=== PATIENT | female | born 1950 | race Caucasian/White ===

== ENCOUNTER → 2017-08-12 09:58 | Outpatient (CLI) | payer MEDICARE, SELFPAY ==
--- NOTE | 2017-08-12 10:04 | RAD_ITS ---
STUDY: X-RAY - LEFT FOOT CLINICAL: Female, 67 years old. Left heel pain. TECHNIQUE: 3 view(s) of the foot. COMPARISON: None. FINDINGS: There is a plantar calcaneal spur. Normal visualized subtalar, talonavicular, calcaneocuboid, tarsal and tarsometatarsal articulations. Normal metatarsi. Normal metatarsophalangeal joint of the great toe. Normal tibial and fibular sesamoid bones. Normal interphalangeal joint of the great toe. Normal phalanges of the great toe. Normal second through fifth metatarsophalangeal joints. Normal interphalangeal joints and phalanges of the lesser toes. The soft tissue structures are unremarkable. RAD/Foot min 3 Views IMPRESSION: Plantar spur. Electronically Signed: Aaron Salgado MD at 14:14 EST Tel [phone], Service support ,
== END ==
PROVIDERS: Family Provider Internal Medicine; PCP Internal Medicine; Visit Provider Internal Medicine
DX: M79.672 Pain in left foot (principal)
CPT/HCPCS: 73630

== ENCOUNTER 2018-02-14 14:48 | Emergency (ER) | payer MEDICARE, SELFPAY ==
[2018-02-14 14:50] VITALS: BP 163/101; PULSE 61; RESP 18; TEMP 37.1; O2SAT 96; BMI 38.9
[2018-02-14 15:14] VITALS: O2SAT 99
[2018-02-14] MEDS: Aspirin 81 MG TAB.CHEW 324 MG PO (15:33)
[2018-02-14 15:54] LABS: Absolute Lymphocyte Count 2.44 X10^3/ul (0.83-4.51); Basophil# 0.03 X10^3/uL; Basophil% 0.4 % (0-1); Eosinophil# 0.24 X10^3/uL; Eosinophils% 3.3 % (0-5); Hematocrit 44.4 % (37-47); Hemoglobin 14.4 g/dl (12.0-15.0); Lymphocyte # 2.44 X10^3/ul (4.0); Lymphocyte % 33.6 % (19-41); Mean Corp Hgb Conc 32.4 g/gl (32-36); Mean Corpuscular Hgb 31.4 pg (27.0-32.0); Mean Corpuscular Volume 96.7 fL (81-99); Mean Platelet Vol. 12.6 fl (6.2-12.0); Monocyte# 0.52 X10^3/uL; Monocyte% 7.2 % (0-10); Neutrophil # 4.03 X10^3/uL (2.7-7.7); Neutrophil % 55.4 % (47-70); Platelet Count 126 K/mm3 (150-450); RBC Distribution Width CV 13.4 % (11.6-14.6); RBC Distribution Width SD 47.5 fl (35.1-43.9); Red Blood Count 4.59 M/mm3 (4.2-5.4); White Blood Count 7.3 K/mm3 (4.4-11.0)
[2018-02-14 15:56] LABS: POSITIVE COUNT NO; POSITIVE DIFFERENTIAL NO; POSITIVE MORPHOLOGY NO
[2018-02-14 16:12] LABS: Anion Gap 10 (5-15); BUN 18 mg/dL (7-18); BUN/Creat Ratio 15.7 RATIO (10-20); Calcium,Total 9.2 mg/dL (8.5-10.1); Chloride 105 mmol/L (98-107); Creatinine, Serum 1.15 mg/dL (0.55-1.02); EST Glomerular Filtration Rate 50 mL/min (>60); Est Glom Filt Rate - Afr Amer 61 mL/min (>60); Estimated Creatinine Clearance 45.05 ml/min; Glucose 107 mg/dL (74-106); Potassium 3.4 mmol/L (3.5-5.1); Sodium Level 145 mmol/L (136-145)
[2018-02-14 16:23] VITALS: BP 152/82; PULSE 58; RESP 15; O2SAT 98
--- NOTE | 2018-02-14 16:36 | ED.VISSUMM ---
- ER Visit Summary Date of Service: 02/14/18 Chief Complaint: Chest pain History of Present Illness: The patient is a [address] Hannah and Dr. Lowe. She reports that she has left-sided chest pain that began yesterday. It is continuous pressure/aching pain. Zeta 10 at worst and 410 currently. Is worsened by nothing including exertion. Is relieved by placing pressure on it. She does report she had episodes where she is nauseated and diaphoretic. No vomiting or shortness of breath. Denies any recent trauma. No fall, MVA, or change in activity. Patient reports that she does have a history of DVT. No recent travel. However, her left leg is been in a walking boot for the past 2 weeks for plantar fasciitis. She reports that her ankle is more swollen than usual. Physical Examination: Vitals: Stable. Afebrile. General: Well-nourished and well-developed. Head: Normocephalic atraumatic. Neck: Supple, no lymphadenopathy. No JVD. Nontender. Cardiovascular: Regular rate and rhythm. No murmurs. Respiratory: No respiratory distress. Clear to auscultation bilaterally. Mild tenderness palpation over the left side of her chest that does reproduce her pain. Abdominal: Soft, nontender, nondistended, normal bowel sounds. No guarding, rebound, or peritoneal signs. Back: Nontender. Extremities: Nontender, no edema. Skin: Normal color, no rash. Neurologic: Alert and oriented ?3. Cranial nerves II through XII are intact. Normal strength and sensation. Psych: Normal affect. Test Results: EKG sinus bradycardia 53 and is unchanged from August 2016. Troponin is negative despite greater than 12 hours of constant pain. Chem-7 marked potassium 3.4, creatinine 1.15, glucose 107. CBC is marked for platelets 126. Chest x-ray is normal. Left lower extreme a Doppler is negative. Emergency Department Course and Treatment: Review the patient's chart shows that she had heart catheterization in September 2016 that showed nonobstructive coronary artery disease with 30% mid LAD lesion and a 40% mid diagonal lesion. I do not feel this is cardiac in etiology. I did discuss the patient possibility of a PE. However, this pain is not typical of this. She does not want a CT of the chest. For that is a reasonable course of action. Her lower extremity Dopplers were negative. Treatment Plan: Patient will be discharged instructions to follow-up with Dr. Hannah in 1-2 days if not improving. Return to the emergency department for any worsening symptoms. Disposition: To home in improved and stable condition. Impression: 1. Atypical chest pain. 2. JESSIE score 1. This note was generated with [employer] dictation software. It may contain incorrect words, spelling, and punctuation that were not noted in review of the chart prior to signing ED Disposition - Plan for ED Patient: Disposition: Home or Assisted Living Chief Complaint: Chest Pain Instructions: ED Chest Pain Atypical Unkn Cause Referrals: Kelly Hannah MD [Primary Care Provider] - 3-5 Days if not improving
== END 2018-02-14 17:25 | disposition home or self-care (01) ==
PROVIDERS: Emergency Provider Emergency Medicine; Family Provider Internal Medicine; PCP Internal Medicine
DX: R07.89 Other chest pain (principal); I10 Essential (primary) hypertension; E78.00 Pure hypercholesterolemia, unspecified; Z86.718 Personal history of other venous thrombosis and embolism; Z79.899 Other long term (current) drug therapy
CPT/HCPCS: 71045; 80048; 84484; 85025; 93005; 93971; 99285; J7030

== ENCOUNTER 2018-04-05 08:00 | Outpatient (RCR) | payer MEDICARE, SELFPAY ==
--- NOTE | 2018-03-03 13:40 | HP.PTEVAL_ITS ---
Patient's Visit Information DIANA ESCUDERO is a 68 year old F referred to Physical Therapy by Kenroy Myers DPM with a diagnosis of L plantar fascitis. Date of Evaluation: 02/23/18 Physical Therapist: Lazaro Jackson - Visit Plan Frequency: 2-3x /Week Duration: 4-6 Weeks Plan: Start with G/S stretching, US to plantar fascia, intrinsic strengthening, graston to plantar fascia, achilles tendon. Progress strengthening and mobility as tolerated. - Subjective Subjective: Pt reported to physical therapy with left plantar pain. Pain has persisted for 6 months. Pt has used over the counter orthotics in the past but currently wears a CAM brace throughout the day in attemps to alleviate pain. The CAM brace along with home exercises and stretches have been effective in eleviating some pain. Pt states that they attempted to progress out of the CAM brance, however, once the brace is removed the pain returns within a couple days. Pt reports pulling pain with walking (2/10) and intermitante stabing pain (8/10) at rest. 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 Pt reports that they are able to use stationary bike with minimal levels of pain. Pt. is hopeful to reduce symptoms in order to get back to all recreational walking and activities without limitations. - Pain left foot Pain Intensity (Out of 10): 1 Pain Intensity Range: 0, 8 - Objective POSTURE: Pt. has slight increase in L foot pes planus with stance phase. Pt. has slight increased L IR of hip as well in stance. PALPATION: pain along the 5th ray and anterior aspect of distal calcaneous. Pt. has increased pain at origin of plantar fascia as well. NEURO: normal sensation, normal DTR bilaterally. No issues. ROM: ankle: PF - L/R 0-40, DF - L/R 0-10, Inversion - 0 -20 L and R. Pt. has increased tenderness with L DF stretching. Pt. has normal knee ROM bilaterally. MMT: LE 5/5 throughout. No pain with testing. GAIT: slight over pronation of the left foot during stance phase. Pt. also has early heel off with stance phase of LLE and increased L toeing out with walking. STAIRS: normal with mild increase NW with descending. Early heel off with L loading pahse with descending. SPECIAL TESTING: + windlass testing [facility] and [facility]. - Goals Goal 1:: Pt. to be I with HEP. Goal Time Frame: 4-6 Weeks Goal 2:: Pt. to have increased L ankle DF to 15deg without increase in symptoms. Goal Time Frame: 4-6 Weeks Goal 3:: Pt. to ambulate unlimited distances without increase in symptoms. Goal Time Frame: 4-6 Weeks Goal 4:: Pt. to have improved gait pattern without issues. Goal Time Frame: 4-6 Weeks Goal 5:: Pt. to negotiate stairs with reciprocal pattern. - Rehabilitation Potential Physical Therapy Diagnosis: Pt. has signs and symptoms consistent with L plantar fasciatis. Pt. has decreased G/S length, increased pain with walking and limited recreational activities. Pt. would benefit from PT to increase ROm, decrease pain and increase tolerance to all recreational activities. Rehabilitation Potential: Excellent - Anticipated Interventions Patient/Client Instruction: Educate patient on: Condition, Plan of Care, Risk Factors, Benefits of Fitness Program For the Purpose of:: To improve decision making, To facilitate caregiver knowledge, To improve self management, To prevent re-injury, To improve ability to perform tasks related to life management, To improve tolerance to ADL's Therapeutic Exercise to Include: Strength training, Power training, Endurance training, Flexibilty training, Passive ROM, Active ROM For the Purpose of:: To decrease pain, To decrease swelling/inflammation, To increase ROM, To improve nutrient delivery to tissue, To improve gait and locomotor functions, To improve health of tissue, To decrease soft tissue restriction Manual Therapy Techniques to Include: Petrissage, Trigger point massage, Mobilization, Passive ROM, Functional dry needling, Soft tissue mobilization For the Purpose of:: To decrease pain, To decrease swelling/inflammation, To increase ROM, To improve nutrient delivery to tissue, To improve muscle performance and motor function, To improve performance and independence with ADL 's, To improve health of tissue, To decrease soft tissue restriction, To increase flexibility/ROM IF ES: Yes Cryotherapy (ice pack, ice massage): Yes Ultrasound (thermal/non thermal): Yes For the Purpose of:: To decrease pain, To decrease swelling/inflammation, To improve nutrient delivery to tissue, To increase oxygenation perfusion, To improve muscle performance and motor function Thank you for the opportunity to evaluate your patient. For Medicare and Medicare HMO plans, please review the plan of care and approve it. It will need to be FAXED BACK to us at [phone] for Medicare purposes. Please let me know if there are questions or concerns regarding this plan of care. Physician Signature: Date:
--- NOTE | 2018-08-22 09:21 | HP.PTDCSUM ---
HP - PT D/C Summary It has been my pleasure to treat DIANA ESCUDERO under orders from Kenroy Myers DPM, for the diagnosis of L plantar fascitis for a total of 9 visit(s). Discharge Date: 04/05/18 Please see the following information for a summary of their discharge status. - Subjective Subjective: pt reports that they think they've made it! on this date they report less than 1 pain level and mentiond that they didnt even think about their foot over the weekend. the only pain they feel is a slight brusing on the heel but less than they had in the past. - Pain left foot Pain Intensity (Out of 10): 1 - Overall Improvement % Improvement: 94 - Objective Objective/Function: Positve response to exercises. Reduced complaint of pain. Tolerated well overall. pt reports being 94% back to normal. - Goals Goal 1:: Pt. to be I with HEP. Goal Progress: Goal Met Goal 2:: Pt. to have increased L ankle DF to 15deg without increase in symptoms. Goal Progress: Goal Met Goal 3:: Pt. to ambulate unlimited distances without increase in symptoms. Goal Progress: Goal Met Goal 4:: Pt. to have improved gait pattern without issues. Goal Progress: Goal Met Goal 5:: Pt. to negotiate stairs with reciprocal pattern. Goal Progress: Goal Met - Plan Plan: Pt. to be DC from PT at this point in time. - D/C Information Discharge Comments: Pt. was treated for her plantar fascitis. Pt. progressed very well with DN, strengthening, and stretching. Pt. was 94% better this date and reports being I with her HEP. Pt. will be DC from PT at this point in time. If there are questions or concerns regarding this patient's physical therapy, please feel free to call me at [phone]. Thank you for the referral of this patient. Sincerely, Lazaro Jackson DPT
== END 2018-04-05 19:00 | disposition home or self-care (01) ==
LOC: PT 08:00
PROVIDERS: Family Provider Internal Medicine; PCP Internal Medicine; Visit Provider Podiatrist
DX: M72.2 Plantar fascial fibromatosis (principal)
CPT/HCPCS: 97035; 97110; 97140; 97161

== ENCOUNTER 2018-05-19 07:01 | Observation (INO) | payer MEDICARE, SELFPAY ==
[2018-05-19] VITALS (10 sets, daily range): BP systolic 122–149; BP diastolic 80–100; PULSE 63–77; RESP 14–16; TEMP 36.4–36.6; O2SAT 93–99; BMI 33.9; BMI 36.7; BMI 36.8
--- NOTE | 2018-05-19 07:17 | CT_ITS ---
STUDY: CT BRAIN WITHOUT CONTRAST REASON FOR EXAM: Female, 68 years old. Confusion today per family, unsteady gait, trouble driving. Hx hypertension.. RADIATION DOSAGE (If Supplied By Facility): CTDIvol = ( 44.99 ) mGy, DLP = ( 745.49 ) mGycm TECHNIQUE: Transaxial CT imaging of the brain was performed without administration of intravenous contrast material. Individualized dose optimization techniques were used for this CT. COMPARISON: None. FINDINGS: Normal soft tissue structures. Normal calvarium. Normal size ventricles and extra-axial spaces for the patient's age. Normal white matter tracts of the cerebral hemispheres. Normal basal ganglia and thalami. Normal brainstem. Normal cerebellum. There is no intracranial hemorrhage. There are no findings of an acute ischemic infarction. Normal visualized paranasal sinuses. CT/Brain/Head without Contrast IMPRESSION: Normal unenhanced CT scan of the brain. Electronically Signed: Kalia Galan MD at 8:15 EST Tel , Service support ,
--- NOTE | 2018-05-19 07:17 | EKG12_ITS ---
Test Reason : DYSRHYTHMIA Blood Pressure : / mmHG Vent. Rate : 070 BPM Atrial Rate : 070 BPM P-R Int : 168 ms QRS Dur : 084 ms QT Int : 392 ms P-R-T Axes : 040 -19 005 degrees QTc Int : 423 ms Normal sinus rhythm Moderate voltage criteria for LVH, may be normal variant Inferior infarct , age undetermined , cannot be excluded Abnormal ECG Confirmed by KEVIN FLYNN, ALEN ([id number]), newspaper editor NA DOWELL ([id number]) on 05/24/2018 3:31:32 PM Referred By: TIHERRY Confirmed By:ALEN BROWN MD
--- NOTE | 2018-05-19 07:17 | RAD_ITS ---
STUDY: X-RAY CHEST REASON FOR EXAM: Female, 68 years old. Confusion. TECHNIQUE: Single AP portable view of the chest. COMPARISON: Comparison is made with prior study dated February 14, 2018. FINDINGS: EKG electrodes are seen. The lungs are clear and expanded. There is no demonstrated pleural abnormality. Normal size heart. Normal mediastinum and paula. Normal visualized pulmonary arteries. There is atherosclerotic tortuosity of the aortic arch and descending thoracic aorta. There are degenerative changes of the visualized thoracic spine. Normal visualized ribs, clavicles, and shoulders. There is no demonstrated abnormality of the visualized soft tissue structures of the upper abdomen. RAD/Chest 1 View IMPRESSION: No acute abnormality is present. Electronically Signed: Aaron Salgado MD at 8:13 EST Tel [phone], Service support ,
[2018-05-19 07:21] LABS: Bedside Glucose 101 mg/dL (70-110)
[2018-05-19 07:33] LABS: Absolute Lymphocyte Count 2.03 X10^3/ul (0.83-4.51); Absolute Neutrophil Count 3.4 X10^3/uL (2.0-7.7); Basophil# 0.02 X10^3/uL; Basophil% 0.3 % (0-1); Eosinophil# 0.19 X10^3/uL; Eosinophils% 3.1 % (0-5); Hematocrit 43.2 % (37-47); Lymphocyte # 2.03 X10^3/ul (4.0); Lymphocyte % 32.8 % (19-41); Mean Corp Hgb Conc 32.4 g/gl (32-36); Mean Corpuscular Hgb 31.3 pg (27.0-32.0); Mean Corpuscular Volume 96.6 fL (81-99); Mean Platelet Vol. 12.1 fl (6.2-12.0); Monocyte# 0.52 X10^3/uL; Monocyte% 8.4 % (0-10); Neutrophil # 3.43 X10^3/uL (2.7-7.7); Neutrophil % 55.4 % (47-70); POSITIVE COUNT NO; POSITIVE DIFFERENTIAL NO; POSITIVE MORPHOLOGY NO; Platelet Count 134 K/mm3 (150-450); RBC Distribution Width CV 13.3 % (11.6-14.6); RBC Distribution Width SD 47.3 fl (35.1-43.9); Red Blood Count 4.47 M/mm3 (4.2-5.4); White Blood Count 6.2 K/mm3 (4.4-11.0)
[2018-05-19 07:48] LABS: Partial Thromboplast Time 28.1 Seconds (24.1-36.2); Prothrombin Time (Protime)PT. 12.7 SECONDS (11.7-14.9)
[2018-05-19 07:57] LABS: Anion Gap 5 (5-15); BUN 19 mg/dL (7-18); BUN/Creat Ratio 18.3 RATIO (10-20); Calcium,Total 8.9 mg/dL (8.5-10.1); Chloride 109 mmol/L (98-107); Creatinine, Serum 1.04 mg/dL (0.55-1.02); EST Glomerular Filtration Rate 56 mL/min (>60); Est Glom Filt Rate - Afr Amer 68 mL/min (>60); Estimated Creatinine Clearance 49.81 ml/min; Glucose 102 mg/dL (74-106); Potassium 3.7 mmol/L (3.5-5.1); Sodium Level 143 mmol/L (136-145)
[2018-05-19 08:46] LABS: Mucous, Urine 0 SEEN /hpf (<or=2+)
[2018-05-19 08:48] LABS: Color, Urine Yellow (Yellow); Glucose, Dipstick Normal (Normal); Ketone-Dipstick Negative (Negative); Leukocyte Esterase-Dipstick Negative /ul (Negative); Nitrite-Dipstick Positive (Negative); Occult Blood-Urine Negative /ul (Negative); Protein-Dipstick Negative (Negative); Specific Gravity, Urine 1.015 (1.002-1.030); Urine Bilirubin Dipstick Negative (Negative); Urine Clarity Sl. Cloudy (Clear); Urine Urobilinogen Normal (Normal)
[2018-05-19 08:55] LABS: Bacteria 4+ /hpf (None Seen); Red Blood Cells-Urine 0-5 SEEN /hpf (0-5); Squamous Epithelial Cells - UA 0-5 SEEN /hpf (5-10); White Blood Cells 0-5 SEEN /hpf (0-5)
--- NOTE | 2018-05-19 10:15 | NURSING ---
DR NAM FOR DR GUADARRAMA
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
--- NOTE | 2018-05-19 10:23 | NURSING ---
MED SURG KIMANI NAM
[2018-05-19] MEDS: Cefazolin 1 GM/50 ML BAG IV ×2 (13:17→21:23)
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
[2018-05-19] MEDS: 0.9% NaCl Peripheral Flush Adult/Peds IV (21:23)
[2018-05-19] MEDS: Heparin Injection (Vial) 5,000 UNIT/ML VIAL 5000 UNIT SC (21:23)
[2018-05-19] MEDS: Zolpidem Tartrate 5 MG Tablet PO (23:58)
[2018-05-20 04:15] VITALS: BP 136/73; PULSE 72; RESP 16; TEMP 36.7; O2SAT 95
[2018-05-20] MEDS: Cefazolin 1 GM/50 ML BAG IV (05:38)
[2018-05-20] MEDS: 0.9% NaCl Peripheral Flush Adult/Peds IV ×2 (05:39→05:41)
[2018-05-20 06:28] LABS: Absolute Neutrophil Count 2.1 X10^3/uL (2.0-7.7); Basophil# 0.03 X10^3/uL; Basophil% 0.6 % (0-1); Eosinophil# 0.16 X10^3/uL; Eosinophils% 3.1 % (0-5); Hematocrit 42.1 % (37-47); Hemoglobin 13.7 g/dl (12.0-15.0); Lymphocyte % 45.3 % (19-41); Mean Corp Hgb Conc 32.5 g/gl (32-36); Mean Corpuscular Hgb 31.5 pg (27.0-32.0); Mean Corpuscular Volume 96.8 fL (81-99); Mean Platelet Vol. 12.6 fl (6.2-12.0); Monocyte# 0.47 X10^3/uL; Monocyte% 9.3 % (0-10); Neutrophil # 2.11 X10^3/uL (2.7-7.7); Neutrophil % 41.5 % (47-70); Platelet Count 140 K/mm3 (150-450); RBC Distribution Width CV 13.4 % (11.6-14.6); RBC Distribution Width SD 47.7 fl (35.1-43.9); Red Blood Count 4.35 M/mm3 (4.2-5.4); White Blood Count 5.1 K/mm3 (4.4-11.0)
[2018-05-20 06:34] LABS: POSITIVE COUNT NO; POSITIVE DIFFERENTIAL NO; POSITIVE MORPHOLOGY NO
[2018-05-20 06:43] LABS: Anion Gap 8 (5-15); BUN 16 mg/dL (7-18); BUN/Creat Ratio 15.4 RATIO (10-20); Calcium,Total 8.8 mg/dL (8.5-10.1); Chloride 111 mmol/L (98-107); Cholesterol 138 mg/dL (200); Creatinine, Serum 1.04 mg/dL (0.55-1.02); EST Glomerular Filtration Rate 56 mL/min (>60); Est Glom Filt Rate - Afr Amer 68 mL/min (>60); Estimated Creatinine Clearance 49.81 ml/min; Glucose 90 mg/dL (74-106); High Density Lipoprotein 34 mg/dL; Potassium 3.6 mmol/L (3.5-5.1); Sodium Level 146 mmol/L (136-145); Triglycerides 209 mg/dL; Very Low Density Lipoprotein 42 mg/dL (5-40)
[2018-05-20 07:28] VITALS: BP 135/79; PULSE 57; RESP 18; TEMP 36.6; O2SAT 100
--- NOTE | 2018-05-20 08:56 | PN_ITS ---
Patient Problems: Active and Suspected Problems (Last Reviewed 01/24/18 @ 13:53 by Anne Marie Caal) Confusion (Acute) UTI (urinary tract infection) (Acute) Subjective: feels great no issues, no weakness, numbness or confusion. No fevers, or chills Vitals/I&O's: Vital Signs Temp Pulse Resp BP Pulse Ox 97.9 F 57 L 18 135/79 H 100 05/20/18 07:28 05/20/18 07:28 05/20/18 07:28 05/20/18 07:28 05/20/18 07:28 Oxygen Flow Rate (L/min) 2 Oxygen Delivery Method Room Air Weight: 227 lb 11.8 oz Body Mass Index (BMI) 36.7 Finger Stick Blood Glucose 101 Intake and Output for Last 24 Hours 05/18/18 05/19/18 05/20/18 23:59 23:59 23:59 Intake Total 695 / 695 780 / 780 Balance 695 / 695 780 / 780 General: Alert, Oriented x3, Cooperative, No apparent distress HEENT: Atraumatic, PERRLA, EOMI, Normocephalic Oral: Moist Mucosa Neck: Supple, No JVD, Negative Carotid Bruits Lungs: Clear to auscultation, Normal air movement, No rhonchi, No wheeze, No rales Cardiovascular: Regular rate, Regular Rhythm, Normal S1, Normal S2, No murmurs Abdomen: Soft, Non Tender, Non-Distended, No Hepato-splenomegaly Extremities: No edema, Capillary Refill Less than 3 Seconds Skin: No rashes, No breakdown Musculoskeletal: No Tenderness to Palpation of Joints or Extremities Neurological: Cranial nerves II-XII grossly intact, Neuro grossly intact, Motor Exam 5/5 strength throughout, Muscle tone normal, Sensory exam intact to light touch and pain, Coordination normal Psych/Mental Status: Normal Affect, Appropriate Laboratory Results 05/19/18 08:40: Urine RBC 0-5 SEEN, Urine WBC 0-5 SEEN, Ur Squamous Epith Cells 0-5 SEEN, Urine Bacteria 4+, Urine Mucus 0 SEEN 05/20/18 05:50: WBC 5.1, RBC 4.35, Hgb 13.7, Hct 42.1, MCV 96.8, MCH 31.5, MCHC 32.5, RDW 13.4, RDW Differential 47.7 H, Plt Count 140 L, MPV 12.6 H, Immature Gran % (Auto) 0.200, Neut % (Auto) 41.5 L, Lymph % (Auto) 45.3 H, [place] % (Auto) 9.3, Eos % (Auto) 3.1, Baso % (Auto) 0.6, Absolute Neuts (auto) 2.1, Absolute Lymphs (auto) 2.30, Total Counted Not Reportable 05/20/18 05:50: Sodium 146 H, Potassium 3.6, Chloride 111 H, Carbon Dioxide 27.0, Anion Gap 8, BUN 16, Creatinine 1.04 H, Estim Creat Clear Calc 49.81, Est GFR (MDRD) Af Amer 68, Est GFR (MDRD) Non-Af 56 L, BUN/Creatinine Ratio 15.4, Gl ucose 90, Calcium 8.8, Triglycerides 209 H, Cholesterol 138, LDL Cholesterol 62, VLDL Cholesterol 42 H, HDL Cholesterol 34 L Current Medications Aspirin (Aspirin, Baby) 81 mg PO DAILY@0800 [facility] Bupropion HCl (Wellbutrin Xl) 300 mg PO DAILY [facility] Heparin Sodium (Porcine) (Heparin Na) 5,000 unit SC Q12 [facility] Last Admin: 05/19/18 21:23 Dose: 5,000 unit Hydrochlorothiazide (Hctz) 25 mg PO DAILY [facility] Sodium Chloride () 500 mls @ 999 mls/hr IV .Q31M ONE Last Admin: 05/19/18 07:36 Dose: 999 mls/hr Cefazolin Sodium () 1 gm in 50 mls @ 100 mls/hr IV Q8 [facility] Last Admin: 05/20/18 05:38 Dose: 100 mls/hr Magnesium Hydroxide (Milk Of Magnesia) 30 ml PO DAILY PRN PRN PRN Reason: Constipation Potassium Chloride (K-Dur) 10 meq PO BID [facility] Last Admin: 05/19/18 21:23 Dose: 10 meq Propranolol HCl (Inderal La) 80 mg PO DAILY [facility] Rosuvastatin Calcium (Crestor) 5 mg PO QHS [facility] Last Admin: 05/19/18 21:24 Dose: Not Given Sodium Chloride () 5 - 15 ml IV UD PRN PRN Reason: SALINE FLUSH Last Admin: 05/20/18 05:41 Dose: 10 ml Zolpidem Tartrate (Ambien (Generic)) 5 mg PO QHS PRN PRN Reason: INSOMNIA Last Admin: 05/19/18 23:58 Dose: 5 mg Medical Necessity - Tobacco Use Smoking Status: Never smoker Assessment/Plan All Active Problems (Last Reviewed 01/24/18 @ 13:53 by Anne Marie Caal) Confusion (Acute) UTI (urinary tract infection) (Acute) Chest pain (Resolved) Pulmonary embolism (Resolved) 1. acute transient confusion secondary to TIA vs UTI - She is on Crestor and aspirin which will be continued - Obtain lipid panel in the am - Increase statin dose before DC, however has had significant myalgias in the past with statin - Urine culture pending, c/w ancef 1 gm TID - If urine culture is positive, will proceed with treatment - If negative will obtain MRI to r/o stroke, I am not convinced that this was a stroke given her lack of permanent symptoms and isolation of symptoms to mentation - She states that she had carotid US within the last 6 months which was normal - She had a cardiac cath within the last 18 months which was also normal - Neuro checks q4 hours 2. HTN/HLD/CAD - c/w crestor, asa, propranol and HCTZ - will monitor to be able to maximize therapy - SBP 135 3. Depression - Stable - c/w wellbutrin DVT: SCD/Heparin Diet: Cardiac Code Visit Inpatient E&M: 33715 Subs Hosp L2
[2018-05-20] MEDS: Aspirin 81 MG TAB.CHEW PO (08:58)
[2018-05-20] MEDS: buPROPion (XL) 300 MG TABLET.XL PO (08:59)
[2018-05-20] MEDS: hydroCHLOROthiazide 25 MG Tablet PO (08:59)
[2018-05-20] MEDS: Heparin Injection (Vial) 5,000 UNIT/ML VIAL 5000 UNIT SC (08:59)
[2018-05-20] MEDS: Propranolol LA 80 MG Capsule PO (08:59)
--- NOTE | 2018-05-20 11:03 | DCINST_ITS ---
- Discharge Diagnoses Current Active Problems: Current Active and Chronic Problems (Last Reviewed 01/24/18 @ 13:53 by Anne Marie Caal) Confusion (Acute) UTI (urinary tract infection) (Acute) You will use the following diet at home:: Cardiac Your food should be the consistency of: Regular Your liquids should be the consistency of: Regular/Thin Discharge Activity: No Restrictions Call your doctor if you observe: Fever of 101 or Higher, Dizziness, Fainting spells Allergies/Adverse Reactions: Allergies simvastatin [From Zocor] Adverse Reaction (Severe, Verified 02/14/18 14:51) severe myalgias and pain gemfibrozil Adverse Reaction (Intermediate, Verified 02/14/18 14:51) Myalgias/joint pain hydromorphone HCl [From Dilaudid] Adverse Reaction (Verified 02/14/18 14:51) Other had resp arrest oxycodone HCl [From Percocet] Adverse Reaction (Verified 02/14/18 14:51) Nausea propoxyphene napsylate [From Darvocet-N 100] Adverse Reaction (Verified 02/14/18 14:51) Nausea Medications to take at Discharge Cholecalciferol (Vitamin D3) [Vitamin D3] 2,000 unit PO DAILY 09/04/16 Bupropion HCl [Bupropion Xl] 300 mg PO DAILY 02/14/18 Hydrochlorothiazide [Hctz] 25 mg PO DAILY 02/14/18 Potassium Chloride [Klor-Con M20] 10 meq PO BID 02/14/18 Propranolol HCl [Inderal LA (Beta Jess)] 80 mg PO DAILY 02/14/18 Rosuvastatin Calcium [Crestor] 5 mg PO DAILY 02/14/18 Zolpidem Tartrate 10 mg PO QHS PRN PRN 02/14/18 Cephalexin [Keflex] 500 mg PO Q6 #16 capsule 05/20/18 The following prescriptions were given: Cephalexin [Keflex] 500 mg PO Q6 #16 capsule Primary Care Physician: Kelly Hannah MD [Primary Care Provider] - Please follow up with your Primary Care Physician in: In 3-5 days Test Results: Test results from this visit will be discussed in further detail at your follow- up appointment, if applicable.
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
[2018-05-20 11:30] VITALS: BP 160/90; PULSE 63; RESP 18; TEMP 36.9; O2SAT 98
[2018-05-20 11:50] VITALS: BP 160/90; PULSE 63; RESP 18; TEMP 36.9; O2SAT 98
--- OUTSIDE RECORDS SUMMARY | 2018-07-14 07:25 | XMS RPT_ITS | Continuity of Care Document ---
:1950 Author Organization [facility] Address [facility] [address] [place] [address] Phone Care Team Providers Name Role Phone Brielle FLYNN, Kelly Cristina Unavailable Papo Tovar Unavailable Jhony Castillo Unavailable Unavailable Wale Blanc Unavailable Mynor FLYNN, Puneet Unavailable Mae Mcallister Unavailable Dr. Erickson Allen Unavailable Marcia Saunders Unavailable SUZY Spencer Unavailable Unavailable Unavailable Unavailable Problems Name Dates Details Abnormal fasting glucose (R73.01, 790.29) Comments: better with weight loss. and now off Victoza gain weight back. Byetta not work. Victoza worked best but insurance not pay for. 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 Status: Active Allergic rhinitis (J30.9, 477.9) Status: Active Benign essential hypertension (I10, 401.1) Comments: stable working on weight loss. once off stimulant will try lowering water pill to 1/2 Status: Active BMI 37.0-37.9, adult (Z68.37, V85.37) Comments: she is swimming walking and did weight watchers three times. Status: Active BMI 38.0-38.9,adult (Z68.38, V85.38) Status: Active BMI 40.0-44.9, adult (Z68.41, V85.41) Comments: 40.6 Status: Active Chest pain at rest (R07.9, 786.50) Comments: in hospital work up negative CTA chest and stress test. cath - not bad. now seems muscular. had again and she always worry about PE and negative work up 02-05 right now no return not thin k need stres s if have signs and symptoms again or progressive CPthen willstress Status: Active Coronary artery disease due to lipid rich plaque (I25.10, 414.00) Comments: - cath 30% LADbv screscreening 08-08 neg Status: Active Current nonsmoker (Renamed from Current non-smoker) (Z78.9, V49.89) Status: Active Deliveries (Parity) Comments: 2 Status: Active Depression (F32.9, 311) Comments: dealing with son with depression lost job was in . lost [employer] and she has to drive around. life withsomeone OCD, hoarder. on ambien for sleep per Dr. coates. Wellbutrin start but had insomni a in past. working with [employer]. doing okay on incresae welbutrin.tried Effexor, paxil like trintillex but cost Status: Active Encounter for routine adult medical exam with abnormal findings (Z00.01, V70.0) Comments: 07-22-17 [facility] physical: mammogram , BD , has had colonoscopy 2017, hx. total hysterectomy/BSO, PHQ-9=3 (mild), 6CIT=/28 hep c screen negative. Status: Active Flu-like symptoms (R68.89, 780.99) Comments: think viral at this point. will give anticough. if not better by 7-10 days then need to do atbn. Status: Active Hip pain (M25.559, 719.45) Comments: bilaterally Status: Active History of pulmonary embolism (Z86.711, V12.55) Status: Active Hospital discharge follow-up (Z09, V67.59) Comments: acute confusion, UTI Status: Active Insomnia (G47.00, 780.52) Status: Active Left foot pain (M79.672, 729.5) Comments: workingf with Dr. jack. kennedy. PT US then may do epac.. Status: Active Menopausal state (N95.1, 627.2) Status: Active Migraine (G43.909, 346.90) Comments: stable Status: Active Mixed hyperlipidemia (E78.2, 272.2) Comments: tried 2 statins and aches. brother did okay with crestor reveiwed with patient recent tests and doing well with nutrisystem and eat better now. better than was. Status: Active Motion sickness (T75.3XXA, 994.6) Status: Active Need for hepatitis C screening test (Z11.59, V73.89) Status: Active Neoplasm of uncertain behavior of skin (D48.5, 238.2) Comments: ? melanoma not wan tto wait until see derm 8-18 in case melanoma the aother lesions kayla more like [place] possiblity of SCC but can wait will azam these change Status: Active Obesity (E66.9, 278.00) Comments: lost weight with victoza but cost tanzem not work. tried Qysmia, adipex and topamax. 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 got new treadmill right now stable not loose it. Status: Active ROSAMARIA on CPAP (G47.33, 327.23) Comments: work with Dr. coates. doing good with this. use romzeman. needs something to help fall asleep Status: Active Pregnancies () Comments: 2 Status: Active Transient confusion (R41.0, 298.9) Status: Active Transient disorientation (R41.0, 780.99) Comments: no new meds no illegal drugs thought UTI then return ? seizure MRI nothing for this. no seem to be hypoglycemia. like out of body experience dtop wellbutrin and lower ambien Status: Active Trochanteric bursitis of both hips (M70.61, 726.5) Status: Active UTI symptoms (R39.9, 788.99) Status: Active Medications Name Dates Details ASPIRIN EC, 81MG (Oral Tablet Delayed Release) [address] qd for 0 days Quantity: 30 {Tablet} Refills: 0 Ordered:23-Sep-2015 Kelly Hannah MD, MD, Dana M Start : 23-Sep-2015 Active Crestor 5 MG Oral Tablet 1 (one) Tablet Tablet in am for 0 days Quantity: 30 {Tablet} Refills: 6 Ordered:02-Dec-2017 SUZY Spencer Start : 02-Dec-2017 Active HydroCHLOROthiazide 25 MG Oral Tablet 1 Tablet QD for 0 days Quantity: 90 {Tablet} Refills: 3 Ordered:08-Jun-2017 Kelly Hannah MD, MD, Dana M Start : 08-Jun-2017 Active Mobic 15 MG Oral Tablet 1 (one) Tablet in am for 0 days Quantity: 30 {Tablet} Refills: 3 Ordered:10-Mar-2018 Kelly Hannah MD, MD, Dana M Start : 10-Mar-2018 Active Potassium Chloride Christina ER 10 MEQ Oral Tablet Extended Release 1 (one) Tablet bid for 0 days Quantity: 60 {Tablet} Refills: 6 Ordered:24-Feb-2018 Kelly Hannah MD, MD, Dana M Start : 24-Feb-2018 Active Propranolol HCl ER 80 MG Oral Capsule Extended Release 24 Hour 1 Capsule ER 24HR qd for 0 days Quantity: 90 {Capsule} Refills: 3 Ordered:08-Jun-2017 Kelly Hannah MD, MD, Dana M Start : 08-Jun-2017 Active Victoza 18 MG/3ML Subcutaneous Solution Pen-injector uad Soln Pen-inj 1.8 mg sc daily for 0 days Quantity: 2 {Package} Refills: 3 Ordered:24-Feb-2018 Kelly Hannah MD, MD, Dana M Start : 24-Feb-2018 Active Vitamin D 2000 UNIT Oral Capsule in am (2000 UNIT) Active Zolpidem Tartrate 5 MG Oral Tablet 1 (one) Tablet qhs prn for 0 days Quantity: 30 {Tablet} Refills: 3 Ordered:21-May-2018 Kelly Hannah MD, MD, Dana M Start : 21-May-2018 Active Comments:thirty ALIGN (Oral Capsule) 1 (one) Capsule daily for 0 days Refills: 0 Ordered:13-Nov-2009 Leanne Marie Start : 23-Jan-2009 Inactive GAURAV-D 12 HOUR, 60-120MG (Oral Tablet Extended Release 12 Hour) 1 (one) Tablet ER 12HR qam for 0 days Refills: 0 Ordered:12-Jul-2008 SUZY Spencer Start : 12-Jul-2008 End : 17-Jan-2009 Inactive ALPRAZOLAM ER, 0.5MG (Oral Tablet Extended Release 24 Hour) uad Tablet ER 24HR Tablet ER 24HR 1/2 to 1 bid prn for 0 days Quantity: 30 {Tablet} Refills: 0 Ordered:06-Dec-2015 SUZY Spencer Start : 21-Feb-2015 End : 06-Dec-2015 Inactive Comments:thirty ambien 2.5 2.5 as needed Inactive Comments:Medication taken as needed. AUGMENTIN, 875-125MG (Oral Tablet) 1 (one) Tablet bid for 0 days Quantity: 28 {Tablet} Refills: 0 Ordered:22-Sep-2013 Maria Guadalupe Sinha LPN Start : 10-Jul-2013 End : 22-Sep-2013 Inactive AXERT, 12.5MG (Oral Tablet) 1 (one) Tablet UAD for 0 days Quantity: 10 {Tablet} Refills: 0 Ordered:02-May-2010 SUZY Spencer Start : 19-Apr-2006 End : 02-May-2010 Inactive BD DISP NEEDLE, 22G X 3/4 (Miscellaneous) 1 (one) Misc qd with victoza for 0 days Quantity: 1 {Box} Refills: 3 Ordered:19-Apr-2015 Nathalie Nicole Start : 18-Apr-2015 End : 19-Apr-2015 Inactive BD Disp Joliet 30G X 1/2 Miscellaneous 1 (one) Misc Misc bid for 90 days Refills: 3 Ordered:21-Apr-2016 SUZY Spencer Start : 23-Sep-2015 End : 21-Apr-2016 Inactive BELVIQ, 10MG (Oral Tablet) 1 (one) Tablet bid for 30 days Quantity: 60 {Tablet} Refills: 0 Ordered:05-Nov-2014 Brielle FLYNN, Kelly Moreno MD, Kelly Cristina Start : 05-Nov-2014 End : 05-Dec-2014 Inactive Comments:35.35 sixty Biaxin XL Pac 500 MG Oral Tablet Extended Release 24 Hour 2 (two) Tablet daily for 0 days Quantity: 20 {Tablet} Refills: 0 Ordered:22-Jul-2017 SUZY Spencer Start : 24-Jun-2017 End : 22-Jul-2017 Inactive BIAXIN, 500MG (Oral Tablet) 1 Tablet bid for 10 days Quantity: 20 {Tablet} Refills: 0 Ordered:11-Jun-2010 Nona Whiting CNP Start : 11-Jun-2010 End : 21-Jun-2010 Inactive CARAFATE, 1GM/10ML (Oral Suspension) 1 (one) Suspension Suspension 10 ml before meals and at night for 10 days Refills: 0 Ordered:15-Feb-2015 SUZY Spencer Start : 15-Feb-2015 End : 25-Feb-2015 Inactive CELEBREX, 200MG (Oral Capsule) 1 (one) Capsule Capsule daily for 360 days Quantity: 30 {Capsule} Refills: 0 Ordered:26-Apr-2014 SUZY Spencer Start : 22-Sep-2013 End : 26-Apr-2014 Inactive CHERATUSSIN AC, 100-10MG/5ML (Oral Syrup) 1 Teaspoon(s) qhs prn for 0 days Quantity: 6 {Ounce(s)} Refills: 0 Ordered:20-Aug-2010 Suzette Black LPN Start : 11-Jun-2010 End : 20-Aug-2010 Inactive CIPROFLOXACIN HCL, 500MG (Oral Tablet) Tablet BID for 0 days Quantity: 14 {Tablet} Refills: 0 Ordered:13-Nov-2009 Leanne Marie Start : 17-Jan-2009 Inactive CLARITIN, 10MG (Oral Tablet) 1 (one) Tablet qd for 0 days Refills: 0 Ordered:04-Jul-2008 Gabriela Barragan Start : 04-Jul-2008 End : 12-Jul-2008 Inactive CYCLOBENZAPRINE HCL, 10MG (Oral Tablet) 1 (one) Tablet Tablet bid prn for 0 days Quantity: 10 {Tablet} Refills: 0 Ordered:15-Feb-2015 SUZY Spencer Start : 03-Sep-2014 End : 15-Feb-2015 Inactive Comments:has at home Diflucan 150 MG Oral Tablet uad Tablet take 1 tablet today and may repeat in 1-2 days if not gone for 0 days Quantity: 2 {Tablet} Refills: 1 Ordered:23-May-2018 SUZY Spencer Start : 25-Mar-2018 End : 23-May-2018 Inactive EFFEXOR XR, 37.5MG (Oral Capsule Extended Release 24 Hour) 1 Capsule ER 24HR QD for 0 days Quantity: 30 {Capsule_ER_24HR} Refills: 5 Ordered:13-Nov-2010 SUZY Spencer Start : 14-Apr-2010 End : 13-Nov-2010 Inactive EFFEXOR, 75MG (Oral Tablet) 1 Tablet QD for 0 days Quantity: 90 {Tablet} Refills: 3 Ordered:19-Jan-2007 Bharath NATASHAMaria Guadalupe Start : 19-Jan-2007 End : 28-Jan-2007 Inactive GUAIATUSSIN AC, 100-10MG/5ML (Oral Syrup) 1 tsp Syrup every six hours, as needed for 30 days Refills: 0 Ordered:30-Jul-2009 SUZY Spencer Start : 30-Jul-2009 End : 29-Aug-2009 Inactive Comments:Medication taken as needed. called to [facility] 07-30-09 erussell disp 4 ounces no refills INDOMETHACIN, 50MG (Oral Capsule) 1 (one) Capsule Capsule bid - tid for 5 days with food for 0 days Quantity: 15 {Capsule} Refills: 0 Ordered:15-Feb-2015 SUZY Spencer Start : 05-Jul-2014 End : 15-Feb-2015 Inactive INNOPRAN XL, 80MG (Oral Capsule Extended Release 24 Hour) 1 (one) Capsule ER 24HR qd for 0 days Quantity: 30 {Capsule_ER_24HR} Refills: 0 Ordered:04-Jan-2009 SUZY Spencer Start : 04-Jan-2009 End : 07-Jan-2009 Inactive Comments:NO REFILLS PT NEEDS AN APT K-DUR, 20MEQ (Oral Tablet Extended Release) 2 (two) Tablet ER QD for 0 days Refills: 0 Ordered:13-Nov-2009 Leanne Marie Start : 01-Feb-2009 Inactive LOVAZA, 1GM (Oral Capsule) 2 Capsule bid for 0 days Quantity: 120 {Capsule} Refills: 3 Ordered:13-Nov-2010 SUZY Spencer End : 13-Nov-2010 Inactive MOBIC, 7.5MG (Oral Tablet) 1 (one) Tablet Tablet daily for 0 days Quantity: 30 {Tablet} Refills: 0 Ordered:15-Feb-2015 SUZY Spencer Start : 23-Jul-2014 End : 15-Feb-2015 Inactive NASONEX, 50MCG/ACT (Nasal Suspension) 2 (two) Suspension qd for 0 days Refills: 0 Ordered:04-Jul-2008 SUZY Spencer Start : 04-Jul-2008 End : 17-Jan-2009 Inactive NIASPAN, 1000MG (Oral Tablet Extended Release) 2 (two) Tablet ER qhs for 0 days Quantity: 180 {Tablet_ER} Refills: 3 Ordered:06-Oct-2011 SUZY Spencer Start : 06-Oct-2011 End : 06-Oct-2011 Inactive Comments:hot flashes NIASPAN, 500MG (Oral Tablet Extended Release) 1 (one) Tablet ER at [facility] for 14 days for 0 days Quantity: 14 {Tablet_ER} Refills: 0 Ordered:02-May-2010 SUZY Spencer Start : 20-Dec-2009 End : 02-May-2010 Inactive NYSTATIN, 266861DPZJ/ML (Mouth/Throat Suspension) 15 Suspension qid swish and swallow for 0 days Quantity: 450 {Milliliter} Refills: 0 Ordered:20-Aug-2010 Suzette Black LPN Start : 04-Aug-2010 End : 20-Aug-2010 Inactive PANTOPRAZOLE SODIUM, 40MG (Oral Tablet Delayed Release) 1 (one) Tablet DR daily for 0 days Quantity: 30 {Tablet} Refills: 6 Ordered:06-Dec-2015 SUZY Spencer Start : 20-Apr-2015 End : 06-Dec-2015 Inactive Pen Joliet 5/16 31G X 8 MM Miscellaneous 1 (one) Misc Misc qd for 0 days Quantity: 1 {Box} Refills: 3 Ordered:21-Apr-2016 SUZY Spencer Start : 06-Dec-2015 End : 21-Apr-2016 Inactive Phentermine HCl 37.5 MG Oral Tablet 1 (one) Tablet qd for 0 days Quantity: 30 {Tablet} Refills: 0 Ordered:15-Feb-2017 SUZY Spencer Start : 15-Oct-2016 End : 15-Feb-2017 Inactive Comments:BMI=39.11 PredniSONE 20 MG Oral Tablet 1 (one) Tablet daiyl 7 days for 0 days Quantity: 7 {Tablet} Refills: 0 Ordered:22-Jul-2017 SUZY Spencer Start : 24-Jun-2017 End : 22-Jul-2017 Inactive PRILOSEC OTC, 20MG (Oral Tablet Delayed Release) 2 (two) Tablet DR qd for 10 days Refills: 0 Ordered:20-Aug-2010 Lindsey Verde DO Start : 04-Aug-2010 End : 14-Aug-2010 Inactive QSYMIA, 3.75-23MG (Oral Capsule Extended Release 24 Hour) 1 (one) Capsule ER 24HR daily for 0 days Quantity: 14 {Capsule} Refills: 0 Ordered:26-Apr-2014 SUZY Spencer Start : 27-Mar-2014 End : 26-Apr-2014 Inactive QSYMIA, 7.5-46MG (Oral Capsule Extended Release 24 Hour) 1 (one) Capsule ER 24HR daily for 0 days Quantity: 30 {Capsule} Refills: 0 Ordered:29-Jun-2014 Kelly Hannah MD, MD, Dana M Start : 29-Jun-2014 End : 29-Jun-2014 Inactive Comments:BMI: 35.67 Rozerem 8 MG Oral Tablet 1 (one) Tablet at night for 0 days Quantity: 30 {Tablet} Refills: 4 Ordered:22-Jul-2017 Kelly Hannah MD, MD, Dana M Start : 22-Jul-2017 End : 22-Jul-2017 Inactive Comments:$ 400.00 a month Simvastatin 20 MG Oral Tablet 1 (one) Tablet qd for 0 days Quantity: 30 {Tablet} Refills: 0 Ordered:15-Feb-2017 Kelly Hannah MD, MD, Dana M Start : 15-Feb-2017 End : 15-Feb-2017 Inactive Comments:myalgia TOPIRAMATE, 50MG (Oral Tablet) 1 (one) Tablet Tablet qd for 0 days Quantity: 30 {Tablet} Refills: 0 Ordered:15-Feb-2015 SUZY Spencer Start : 29-Jun-2014 End : 15-Feb-2015 Inactive Transderm-Scop (1.5 MG) 1 MG/3DAYS Transdermal Patch [address] one behind ear morning of travel and then q 3 days thereafter for 0 days Quantity: 4 {Patch} Refills: 0 Ordered:24-Jun-2017 SUZY Spencer Start : 16-Jun-2017 End : 24-Jun-2017 Inactive TRAZODONE HCL, 50MG (Oral Tablet) 1 Tablet at night for 0 days Quantity: 90 {Tablet} Refills: 1 Ordered:18-Jan-2013 Maria Guadalupe Sinha LPN Start : 04-Aug-2012 End : 18-Jan-2013 Inactive Comments:Per fax req, [facility] Tufarhanionex Pennkinetic ER 10-8 MG/5ML Oral Suspension Extended Release 5 Milliliter every 12 hours prn for 0 days Quantity: 60 {Milliliter} Refills: 0 Ordered:22-Jul-2017 SUZY Spencer Start : 24-Jun-2017 End : 22-Jul-2017 Inactive Comments:sixty VOLTAREN, 1% (Transdermal Gel) uad (1 %) Inactive Comments:Dr. Hai PEACE, 20MG (Oral Tablet) 1 (one) Tablet Tablet qd for 0 days Quantity: 30 {Tablet} Refills: 3 Ordered:15-Feb-2015 SUZY Spencer Start : 23-Jul-2014 End : 15-Feb-2015 Inactive Zetia 10 MG Oral Tablet 1 (one) Tablet in am for 0 days Quantity: 30 {Tablet} Refills: 4 Ordered:02-Dec-2017 Kelly Hannah MD, MD, Dana M Start : 02-Dec-2017 End : 02-Dec-2017 Inactive Comments:myalgia ZITHROMAX Z-JON, 250MG (Oral Tablet) 1 Tablet uad for 0 days Quantity: 1 {Package(s)} Refills: 0 Ordered:13-Nov-2009 Leanne Marie Start : 29-Jul-2009 Inactive ZOSTAVAX, 57837PBZ/0.65ML (Subcutaneous Solution Reconstituted) uad For Solution one time SQ dose for 0 days Quantity: 1 {For_Solution} Refills: 0 Ordered:05-Jun-2013 SUZY Spencer Start : 06-Feb-2013 End : 05-Jun-2013 Inactive BuPROPion HCl ER (XL) 300 MG Oral Tablet Extended Release 24 Hour 1 (one) Tablet in am for 0 days Quantity: 30 {Tablet} Refills: 5 Ordered:21-May-2018 Kelly Hannah MD, MD, Dana M Start : 21-May-2018 End : 21-May-2018 Discontinued BYDUREON, 2MG (Subcutaneous Suspension Reconstituted) 1 (one) For Suspension q week for 0 days Quantity: 4 {Box} Refills: 3 Ordered:04-Feb-2015 Kelly Hannah MD, MD, Dana M Start : 04-Feb-2015 End : 04-Feb-2015 Discontinued Byetta 10 MCG Pen 10 MCG/0.04ML Subcutaneous Solution Pen-injector 1 (one) Soln Pen-inj Soln Pen-inj bid for 0 days Quantity: 3 {Each} Refills: 3 Ordered:22-Jan-2016 Kelly Hannah MD, MD, Dana M Start : 22-Jan-2016 End : 22-Jan-2016 Discontinued Byetta 10 MCG Pen 10 MCG/0.04ML Subcutaneous Solution Pen-injector 1 (one) Soln Pen-inj Soln Pen-inj bid for 0 days Quantity: 1 {Each} Refills: 0 Ordered:22-Jan-2016 Kelly Hannah MD, MD, Dana M Start : 22-Jan-2016 End : 22-Jan-2016 Discontinued Comments:with needles INDERAL LA, 80MG (PO Cap CR) 1 QD for 0 days Refills: 0 Ordered:28-Oct-2007 SUZY Spencer End : 28-Oct-2007 Discontinued PHENTERMINE HCL, 37.5MG (Oral Tablet) 1 (one) Tablet Tablet qd for 0 days Quantity: 30 {Tablet} Refills: 0 Ordered:03-Sep-2014 Kelly Hannah MD, MD, Dana M Start : 03-Sep-2014 End : 03-Sep-2014 Discontinued Comments:thirty BMI: 35.35 Tanzeum 50 MG Subcutaneous Pen-injector 1 (one) Pen-injector Pen-injector weekly for 0 days Quantity: 4 {Each} Refills: 4 Ordered:27-Aug-2016 Kelly Hannah MD, MD, Dana M Start : 27-Aug-2016 End : 27-Aug-2016 Discontinued Tanzeum 50 MG Subcutaneous Pen-injector 1 (one) Pen-injector Pen-injector weekly for 0 days Quantity: 12 {Dose_Pack} Refills: 3 Ordered:27-Aug-2016 Kelly Hannah MD, MD, Dana M Start : 27-Aug-2016 End : 27-Aug-2016 Discontinued Trintellix 10 MG Oral Tablet 1 (one) Tablet Tablet in am for 0 days Quantity: 30 {Tablet} Refills: 3 Ordered:27-Aug-2016 Kelly Hannah MDi MD, Kelly Cristina Start : 27-Aug-2016 End : 27-Aug-2016 Discontinued Comments:not try 20 mg and had weight gain Allergies and Adverse Reactions Name Dates Details No Known Allergies (Allergy) Onset: 10-Sep-2016 Status: Inactive No Known Drug Allergies (Allergy) Onset: 10-Sep-2016 Status: Inactive Toradol *ANALGESICS - Status: Active ANTI-INFLAMMATORY* (Allergy) Comments: numbness and tingling, felt in her nose, forehead, and down entire left side of her body Past Medical History Name Dates Details Abdominal pain (R10.9, 789.00) Comments: epig was in hospital and 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 ppi and carafate helping. will finsih off carafate adn use PPI for 8 weeks come off if return then EGD Status: Inactive as of 18-Apr-2015 Acute leg pain, right (M79.604, 729.5) Comments: right TKA not have trauma not over do no lock popin or giving out. not sure what spurred. will do steriod injection to calm and it did help alot. gone now. Status: Inactive as of 08-Sep-2016 Acute sinusitis (J01.90, 461.9) Status: Inactive as of 06-Feb-2013 BMI 38.0-38.9,adult (Z68.38, V85.38) Status: Inactive as of 27-Aug-2016 BMI 39.0-39.9,adult (Z68.39, V85.39) Comments: BMI= 39.11 Status: Resolved as of 23-May-2018 Bronchitis (J40, 490) Status: Inactive as of 06-Feb-2013 Candidiasis of vulva and vagina (B37.3, 112.1) Comments: going to get otc cream Status: Inactive as of 20-Dec-2009 Chest pain (R07.9, 786.59) Status: Inactive as of 04-Feb-2015 Chronic gastroesophageal reflux disease (K21.9, 530.81) Status: Inactive as of 08-Sep-2016 Chronic orthostatic hypotension (I95.1, 458.0) Status: Inactive as of 26-Apr-2014 Cough (R05, 786.2) Status: Resolved as of 22-Jul-2017 Dehydration (E86.0, 276.51) Status: Inactive as of 26-Apr-2014 Encounter for immunization (Z23, V03.89) Status: Inactive as of 05-Jun-2013 Encounter for screening mammogram for breast cancer (Renamed from Encounter for screening mammogram for malignant neoplasm of breast) (Z12.31, V76.12) Status: Resolved as of 22-Jul-2017 Enlarged lymph nodes, unspecified (R59.1, 785.6) Status: Inactive as of 06-Feb-2013 Fatigue (R53.83, 780.79) Status: Inactive as of 26-Apr-2014 Gastroenteritis (K52.9, 558.9) Status: Inactive as of 26-Apr-2014 Hyperglyceridemia (E78.1, 272.1) Comments: reveiwed with patient recent tests and NMR bad needs something talk about statin and niaspan with low hdl will try niaspan. have to watch sugars Status: Inactive as of 06-Feb-2013 Hypokalemia (E87.6, 276.8) Status: Inactive as of 15-Oct-2016 Impaired fasting glucose (R73.01, 790.21) Status: Inactive as of 06-Feb-2013 Laryngitis (J04.0, 464.00) Status: Inactive as of 06-Feb-2013 Left knee pain (M25.562, 719.46) Comments: had right TKa.needs surgery 04-30-14. Status: Inactive as of 04-Feb-2015 Limb pain (M79.609, 729.5) Status: Inactive as of 06-Feb-2013 Lumbago (M54.5, 724.2) Comments: sounds mucular. seeing Pt talk about chair yoga. UA good. has fleceril at home. heat rest Status: Inactive as of 04-Feb-2015 Nausea (R11.0, 787.02) Comments: better than was. will keep on victoza for now. if worsxen or not continue to get better then will stomach Status: Inactive as of 18-Apr-2015 Nausea and vomiting (R11.2, 787.01) Status: Inactive as of 06-Feb-2013 Need for prophylactic vaccination and inoculation against influenza (Z23, V04.81) Status: Inactive as of 23-Sep-2015 Need for Tdap vaccination (Renamed from Need for emluaikpnp-yvgaopl-yfvkaidcu (Tdap) vaccine, adult/adolescent) (Z23, V06.1) Status: Resolved as of 23-Sep-2017 Neuropathic pain, leg, bilateral (G57.93, 356.9) Comments: more of a sensitivity to touch if not touchokay. NCS over 10 years ago okay. LEANDRO good inpast. will start off with voltaren gel now. desensitize leg with massage, jai hose. is exercise and swimming. if mariana at rest then repeat ncs Status: Resolved as of 09-Jun-2016 Other specified viral infection, in conditions classified elsewhere and of unspecified site (B97.89, 079.89) Status: Inactive as of 13-Nov-2009 Other specified visual disturbances (H53.8, 368.8) Status: Inactive as of 06-Feb-2013 Otitis media (H66.90, 382.9) Status: Inactive as of 06-Feb-2013 Pharyngitis, acute (J02.9, 462) Status: Inactive as of 13-Nov-2009 Pleurisy (R09.1, 511.0) Status: Inactive as of 04-Feb-2015 Post-menopausal bleeding (627.1) Comments: saw eva: did biopsy recancerous cells and trying progesterone. repeat bipsy 11-01. now waiting may need TAHlast period 2002, not on female hormones. no on any herbs Status: Inactive as of 26-Apr-2014 Pre-operative examination (Z01.818, V72.84) Status: Inactive as of 06-Feb-2013 PROBLEMS W/SMELL/TASTE (V41.5) Status: Inactive as of 06-Feb-2013 Pulmonary emboli (I26.99, 415.19) Comments: on xarelto treat for 6 months. after knee surgery started 02-02 check ddimer normal, off xareltodx 08-05 Status: Resolved as of 09-Jun-2016 SCREENING FOR BREAST CANCER (Z12.39, V76.10) Status: Inactive as of 04-Feb-2015 Sinusitis (J32.9, 473.9) Status: Inactive as of 26-Apr-2014 Thrombocytopenia, unspecified (D69.6, 287.5) Comments: fluctuate up and down never been below 120. ? meds ? atb. rheum labs negtative. had CT spleen good. Status: Resolved as of 23-Sep-2017 Unspecified Diagnosis Status: Inactive as of 13-Nov-2009 Unspecified nonsuppurative otitis media, unspecified ear (H65.90, 381.4) Status: Inactive as of 06-Feb-2013 Urinary frequency (R35.0, 788.41) Comments: betetr with atb Status: Inactive as of 06-Feb-2013 UTI (lower urinary tract infection) (N39.0, 599.0) Comments: been on atb and willhave TKA wednesday will have her drop urine off at hospital and they will look at wednesday am before surgery to to assure no more bacterial Status: Inactive as of 04-Feb-2015 Viral infection (B34.9, 079.99) Comments: not think needs atb yet. use Hand[employer] DM told when need to call for atb Status: Resolved as of 22-Jul-2017 WWV V73.21 Comments: scope in last 5 years Status: Inactive as of 06-Feb-2013 Procedures Procedure Dates Details appendectomy 1999 Completed cholecystectomy 1980 Completed D and C Completed Hysterectomy; Total Completed Comments: 2013 Knee Replacement, Total Completed Comments: 2007, 2013 bilateral LEFT HEART CARDIAC CATH ([id number]) Completed Comments: Dr. Alexander nasal abscess I and D 04-30 Completed Date Value Details 23-May-2018 Brain W/WO Contrast Result: Comments: See Note; NOTES: [facility] Imaging Services [address] [place] [address] Brain W/WO Contrast MR#: [id number] Acct: [id number] Name: DIANA ESCUDERO OLGA Rep #: [id number] : 1950 F 68 From: Jimmy Kang MD PCP: Kelly Hannah MD Status: REG CLI Study: Brain W/WO Contrast Date of Exam: 05/23/18 Exam# [id number] Ordering Dr: Kelly Hannah MD STUDY: MRI BRAI N WITH AND WITHOUT CONTRAST REASON FOR EXAM: Female, 68 years old. Transient confusion and memory loss TECHNIQUE: Standardized multiplanar fat and water weighted pulse sequences were obtained. 10 ml o f Gadavist contrast material was administered intravenously for the contrast portion of the examination. COMPARISON: 05/19/2018 CT FINDINGS: Normal size of the vent ricles and extra-axial spaces for the patient's age. 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 Normal bilateral basal ganglia. Normal thalami. There is no extra-axial fluid acc umulation. Normal flow voids within the major intracranial circulation suggesting patency by spin echo criteria. Normal venous enhancement. There is no enhancing intra-axial or extra-axial abnormality. Normal sella turcica, pituitary gland, infundibular stalk, optic chiasm and hypothalamus. Normal tectal plate and pineal gland. A subcentimeter faint enhancing focus is present in the right janina. Thi s is not associated with edema or mass effect. This is most likely an incidental capillary telangiectasia. Normal cerebellum. Normal basal cisterns. Normal bilateral temporal bones. Normal bilateral int ernal auditory canals. No demonstrated orbital abnormality, within the constraints of a routine brain study. Normal visualized paranasal sinuses. Normal calvarium and skull base. Normal visualized soft tissue structures. Normal visualized upper cervical spine. 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 No evidence of infarct or hemorrhage. Electronically Signed: Jimmy Kang MD at 8:36 EST Tel , Se rvice support , CC: Kelly Hannah MD Manager Country: Signed 19-May-2018 Brain/Head without Contrast Result: Comments: See Note; NOTES: [facility] Imaging Services [address] [place] [address] Brain/Head without Contrast MR#: [id number] Acct: [id number] Name: DIANA ESCUDERO Rep # : [id number] : 1950 F 68 From: Kalia Galan PCP: Kelly Hannah MD Status: REG ER Study: Brain/Head without Contrast Date of Exam: 05/19/18 Exam# [id number] Ordering Dr: Puneet Johnson MD STUDY: C T BRAIN WITHOUT CONTRAST REASON FOR EXAM: Female, 68 years old. Confusion today per family, unsteady gait, trouble driving. Hx hypertension.. RADIATION DOSAGE (If Supplied By Facility): CTDIvol = ( 44 .99 ) mGy, DLP = ( 745.49 ) mGycm TECHNIQUE: Transaxial CT imaging of the brain was performed without administration of intravenous contrast material. Individualized dose optimization techniques were used for this CT. COMPARISON: None. FINDINGS: Normal soft tissue structures. Normal calvarium. Normal size ventricles and extra-axial spaces for the patient's age. Normal white matter tracts of the cerebral hemispheres. Normal basal ganglia and thalami. Normal brainstem. Normal cerebellum. There is no intracranial hemorrhage. There are no findings of an acute is chemic infarction. Normal visualized paranasal sinuses. CT/Brain/Head without Contrast IMPRESSION: Normal unenhanced CT scan of the brain. Elec tronically Signed: Kalia Galan MD at 8:15 EST Tel , Service support , CC: Kelly Hannah MD; Puneet Johnson MD Manager Country: Signed 19-May-2018 Chest 1 View Result: Comments: See Note; NOTES: [facility] Imaging Services [address] [place] [address] Chest 1 View MR#: [id number] Acct: [id number] Name: DIANA ESCUDERO Rep #: [id number] : 1950 F 68 From: Aaron Salgado MD PCP: Kelly Hannah MD Status: REG ER Study: Chest 1 View Date of Exam: 05/19/18 Exam# [id number] Ordering Dr: Puneet Johnson MD STUDY: X-RAY CHEST REASON FO R EXAM: Female, 68 years old. Confusion. TECHNIQUE: Single AP portable view of the chest. COMPARISON: Comparison is made with prior study dated February 14, 2018. FI NDINGS: EKG electrodes are seen. The lungs are clear and expanded. There is no demonstrated pleural abnormality. Normal size heart. Normal mediastinum and paula. Normal visualized pulmonary arteries. T here is atherosclerotic tortuosity of the aortic arch and descending thoracic aorta. There are degenerative changes of the visualized thoracic spine. Normal visualized ribs, clavicles, and shoulders. There is no demonstrated abnormality of the visualized soft tissue structures of the upper abdomen. RAD/Chest 1 View IMPRESSION: No acute abnorma lity is present. Electronically Signed: Aaron Salgado MD at 8:13 EST Tel [phone], Service support , CC: Kelly Hannah MD; Puneet Johnson MD Manager Country: Signed 03-Mar-2018 Inital Evaluation (1) - PT Result: Comments: See Note; NOTES: [facility] Physical Therapy Health[address] [place] [address] Fax REHABILITATION SERVICES INITIAL EVALUATION MR#: [id number] Acct: [id number] Name: DIANA ESCUDERO Rep #: [id number] : 1950 68 From: Lazaro Jackson DPT Referring Dr.: GENOVEVA Myers Status: REG RCR Insurance: [employer] PPO SELF PAY INSURANCE Patient's Visit Information DIANA ESCUDERO is a 68 year old F referred to Physical Therapy by Kenroy Myers DPM with a diagnosis of L plantar fascitis. Date of Evalua tion: 02/23/18 Physical Therapist: Lazaro Jackson - Visit Plan Frequency: 2-3x /Week Duration: 4-6 Weeks Plan: Start with G/S stretching, US to plantar fascia, intrinsic strengthening, graston to plant ar fascia, achilles tendon. Progress strengthening and mobility as tolerated. - Subjective Subjective: Pt reported to physical therapy with left plantar pain. Pain has persisted for 6 months. Pt has us ed over the counter orthotics in the past but currently wears a CAM brace throughout the day in attemps to alleviate pain. The CAM brace along with home exercises and stretches have been effective in el eviating some pain. Pt states that they attempted to progress out of the CAM brance, however, once the brace is removed the pain returns within a couple days. Pt reports pulling pain w ith walking (2/10) and intermitante stabing pain (8/10) at rest. 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 Pt reports that they are able to use st ationary bike with minimal levels of pain. Pt. is hopeful to reduce symptoms in order to get back to all recreational walking and activities without limitations. - Pain left foot Pain Intensity (Out of 10): 1 Pain Intensity Range: 0, 8 - Objective POSTURE: Pt. has slight increase in L foot pes planus with stance phase. Pt. has slight increased L IR of hip as well in stance. PALPATION: pain along the 5th ray and anterior aspect of distal calcaneous. Pt. has increased pain at origin of plantar fascia as well. NEURO: normal sensation, normal DTR bilaterally. No issues. ROM: ankle: PF - L/R 0-40, D F - L/R 0-10, Inversion - 0-20 L and R. Pt. has increased tenderness with L DF stretching. Pt. has normal knee ROM bilaterally. MMT: LE 5/5 throughout. No pain with testing. GAIT: slight over pronation of the left foot during stance phase. Pt. also has early heel off with stance phase of LLE and increased L toeing out with walking. STAIRS: normal with mild increase NW with descending. Early heel off w ith L loading pahse with descending. SPECIAL TESTING: + windlass testing [facility] and [facility]. - Goals Goal 1:: Pt. to be I with HEP. Goal Time Frame: 4-6 Weeks Goal 2:: Pt. to have increased L ankle DF to 15de g without increase in symptoms. Goal Time Frame: 4-6 Weeks Goal 3:: Pt. to ambulate unlimited distances without increase in symptoms. Goal Time Frame: 4-6 Weeks Goal 4:: Pt. to have improved gait patter n without issues. Goal Time Frame: 4-6 Weeks Goal 5:: Pt. to negotiate stairs with reciprocal pattern. - Rehabilitation Potential Physical Therapy Diagnosis: Pt. has signs and symptoms consistent with L plantar fasciatis. Pt. has decreased G/S length, increased pain with walking and limited recreational activities. Pt. would benefit from PT to increase ROm, decrease pain and increase tolerance to all recreational activities. Rehabilitation Potential: Excellent - Anticipated Interventions Patient/Client Instruction: Educate patient on: Condition, Plan of Care, Risk Factors, Benefits of Fitness Prog marianne For the Purpose of:: To improve decision making, To facilitate caregiver knowledge, To improve self management, To prevent re-injury, To improve ability to perform tasks related to life management, To improve tolerance to ADL's Therapeutic Exercise to Include: Strength training, Power training, Endurance training, Flexibilty training, Passive ROM, Active ROM For the Purpose of:: To decrease pain, To decrease swelling/inflammation, To increase ROM, To improve nutrient delivery to tissue, To improve gait and locomotor functions, To improve health of tissue, To decrease soft tissue restriction Manu al Therapy Techniques to Include: Petrissage, Trigger point massage, Mobilization, Passive ROM, Functional dry needling, Soft tissue mobilization For the Purpose of:: To decrease pain, To decrease swell ing/inflammation, To increase ROM, To improve nutrient delivery to tissue, To improve muscle performance and motor function, To improve performance and independence with ADL's, To improve health of tiss ue, To decrease soft tissue restriction, To increase flexibility/ROM IF ES: Yes Cryotherapy (ice pack, ice massage): Yes Ultrasound (thermal/non thermal): Yes For the Purpose of:: To decrease pain, To d ecrease swelling/inflammation, To improve nutrient delivery to tissue, To increase oxygenation perfusion, To improve muscle performance and motor function Thank you for the opportunity to evaluate y our patient. For Medicare and Medicare HMO plans, please review the plan of care and approve it. It will need to be FAXED BACK to us at [phone] for Medicare purposes. Please let me know if there are questions or concerns regarding this plan of care. Physician Signature: Date: <Electronically signed by Lazaro Jackson DPT&amp ;#[id number]; 03/03/18 1340 CC: GENOVEVA Myers; Kelly Hannah MD CLS Signed For Medicare only, by signing this I certify the plan of care. Physicians Signature Date 16-Feb-2018 12 Lead Electrocardiogram Result: Comments: See Note; NOTES: [facility] Cardiovascular Services [address] [place] [address] 12 Lead EKG 02/14/18 1459 MR#: [id number] Acct: [id number] Name: DIANA ESCUDERO OLGA Rep #: [id number] : 1950 68 From: Harris Brandt MD Attending Dr: Status: DEP ER Ordering Dr: Kasi Worley MD Date: 02/14/18 Location: ED Sex: F C Admitted: Test Reason : CP Blood Pressure : / mmHG Vent. Rate : 053 BPM Atrial Rate : 053 BPM P-R Int : 156 ms QRS Dur : 078 ms QT Int : 428 ms P-R-T Axes : 045 000 035 degrees QTc Int : 401 ms Sinus bradycardia Inferior IA, age undeterm ined, cannot be excluded Confirmed by KEVIN FLYNN, HARRIS ([id number]), editor book SHIELA DOWELL ([id number]) on 02/16/2018 1:34:57 PM Referred By: BRIEN Confirmed By:HARRIS BRANDT MD 02/16/18 1335 Date __ Harris Brandt MD CC: Kelly Hannah MD; Kasi Worley MD Signed 15-Feb-2018 Emergency Department Summary Result: Comments: See Note; NOTES: [facility] Medical Records Department [address] [place] [address] Emergency Department Summary 02/14/18 1636 MR#: [id number] Acct: [id number] Name: DIANA ESCUDERO Rep #: [id number] : 1950 68 From: Kasi Worley MD PCP: Kelly Hannah MD Status: DEP ER - ER Visit Summary Date of Service: 02/14/18 Chief Complaint: Chest pain History of Present Illness: The patient is a [address] Hannah and Dr. Alexander. She reports that she has left-sided chest pain that began yesterday. It is continuous pressure/aching pain. Zeta 10 at worst and 410 currently. Is worsened by nothing including exertion. Is relieved by placing pressure on it. She does report she had episodes where she is nauseated and diaphoretic. No vomiting or shortness of breath. Denies any recent trauma. No fall, MVA, or change in activity. Patient reports that she does have a history of DVT. No recent travel. However, her left leg is been in a walking boot for the pas t 2 weeks for plantar fasciitis. She reports that her ankle is more swollen than usual. Physical Examination: Vitals: Stable. Afebrile. General: Well-nourished and well-developed. Head: Normocephalic a traumatic. Neck: Supple, no lymphadenopathy. No JVD. Nontender. Cardiovascular: Regular rate and rhythm. No murmurs. Respiratory: No respiratory distress. Clear to auscultation bilaterally. Mild tendern ess palpation over the left side of her chest that does reproduce her pain. Abdominal: Soft, nontender, nondistended, normal bowel sounds. No guarding, rebound, or peritoneal signs. Back: Nontender. Ext remities: Nontender, no edema. Skin: Normal color, no rash. Neurologic: Alert and oriented 3. Cranial nerves II through XII are intact. Normal strength and sensation. Psych: Normal affect. Test Results : EKG sinus bradycardia 53 and is unchanged from August 2016. Troponin is negative despite greater than 12 hours of constant pain. Chem-7 marked potassium 3.4, creatinine 1.15, glucose 107. CBC is marked for platelets 126. Chest x-ray is normal. Left lower extreme a Doppler is negative. Emergency Department Course and Treatment: Review the patient's chart shows that she had heart catheterization in 2016 that showed nonobstructive coronary artery disease with 30% mid LAD lesion and a 40% mid diagonal lesion. I do not feel this is cardiac in etiology. I did discuss the patient possibility of a P E. However, this pain is not typical of this. She does not want a CT of the chest. For that is a reasonable course of action. Her lower extremity Dopplers were negative. Treatment Plan: Patient will be discharged instructions to follow-up with Dr. Hannah in 1-2 days if not improving. Return to the emergency department for any worsening symptoms. Disposition: To home in improved and stable condition . Impression: 1. Atypical chest pain. 2. JESSIE score 1. This note was generated with Getix dictation software. It may contain incorrect words, spelling, and punctuation that were not noted in review of the chart prior to signing ED Disposition - Plan for ED Patient: Disposition: Home or Assisted Living Chief Complaint: Chest Pain Instructions: ED Chest Pain Atypical Unkn Cause Referrals: Kelly Resendiz i, MD [Primary Care Provider] - 3-5 Days if not improving What to do if you have Problems For any increased pain, shortness of breath, bleeding, nausea or vomiting, chest pain, or any unexpecte d problems, contact your Primary Care Provider. Call [facility] ([phone]) or report to the closest Emergency Room. Call 911 if necessary. 02/15/18 0046 <Electronically signed by Jose Daniel Worley MD> Date Kasi Worley MD Cosigner Signature (If Indicated): Date CC: Kelly Hannah MD 14-Feb-2018 Venous Duplex Lower Extremity Result: Comments: See Note; NOTES: [facility] Cardiovascular Services [address] [place] [address] Venous Duplex US, Unilateral 02/14/18 1549 MR#: [id number] Acct: [id number] Name: DIANA HICKMAN Rep #: [id number] : 1950 68 From: Abdoulaye Landa MD Attending Dr: Status: DEP ER Ordering Dr: Kasi Worley MD Date: 02/14/18 Location: ED Sex: F C Admitted: Reason For S tudy: LEG SWELLING Procedure LEFT Exam performed portable in ED. GSV is normal. A preliminary report was called and/or faxed CFV is compressible, spontaneous, phasic, to Dr. Worley. competent, and dem onstrates normal augmentation. FV is compressible, spontaneous, phasic, competent and demonstrates normal augmentation. POP V is compressible, spontaneous, phasic, competent and demonstrates normal augm entation. T/P Trunk is compressible. PTV is compressible. LT PerV is compressible. Interpretation Summary There is no evidence of left lower extremity deep vein thrombosis. Ordering Physician: Kasi Worley Referring Physician: Kelly Hannah M.D. Performed By: Melani Goodwin RVT Electronic ally signed by: Abdoulaye Landa MD on 02/14/2018 05:41 PM 02/14/18 1741 Date Abdoulaye Landa MD CC: Kelly Hannah MD; Kasi Worley MD Date Dictated: 0 02/14/18 1549 Date Transcribed: 02/14/18 174 Manager Country: Signed 14-Feb-2018 Chest 1 View (Portable) Result: Comments: See Note; NOTES: [facility] Imaging Services [address] [place] [address] Chest 1 View (Portable) MR#: [id number] Acct: [id number] Name: DIANA ESCUDERO Rep #: [id number] : 1950 F 68 From: Aaron Salgado MD PCP: Kelly Hannah MD Status: REG ER Study: Chest 1 View (Portable) Date of Exam: 02/14/18 Exam# [id number] Ordering Dr: Kasi Worley MD STUD Y: X-RAY CHEST REASON FOR EXAM: Female, 68 years old. Chest pain. TECHNIQUE: Single AP portable view of the chest. COMPARISON: Comparison is made with prior study dated 2015. FINDINGS: EKG electrodes are seen. The lungs are clear and expanded. There is no demonstrated pleural abnormality. Normal size heart. Normal mediastinum and paula. Normal visual ized pulmonary arteries. There is atherosclerotic calcification of the aortic arch with tortuosity. There are degenerative changes of the visualized thoracic spine. Normal visualized ribs, clavicles, a nd shoulders. There is no demonstrated abnormality of the visualized soft tissue structures of the upper abdomen. RAD/Chest 1 View (Portable) IM PRESSION: No acute abnormality is seen. Electronically Signed: Aaron Salgado MD at 15:52 EDT Tel [phone], Service support , CC: Kelly Salgado; Kasi Worley MD Manager Country: Signed 24-Jan-2018 Cardiology Visit Report Result: Comments: See Note; NOTES: [facility] [address] [place] [address] OFFICE VISIT Date of Service: 01/24/18 MR#: [id number] Acct: [id number] Name: DIANA ESCUDERO Rep #: [id number] : 1950 Provider: Puneet Alexander MD Age/Sex: 67/F Location: [facility] Status: Signed HPI HPI Chief Complaint: Routine f/u Details: HPI This is a 66-year-old female who was ini tially referred to us for evaluation of chest discomfort. Patient has had pulmonary embolism in the past. She was on a factor X a inhibitor for this. She is no longer on this. She does have a history of hypertension and hyperlipidemia. She also has a strong family history of coronary artery disease. She states that approximately a month prior to her initial visit, she was having chest discomfort. I t was at rest and in the evening. She was able to ride her bike and swim without any difficulty. She describes this as a heaviness that was similar to what she had when she had her PE. She did have a CT A done and this was negative for PE. She then had an echocardiogram which demonstrated normal LV size left ventricular systolic function is normal with an estimated ejection fraction of 60%. Left atrium is mildly enlarged. Mild tricuspid valve insufficiency. Pulmonary artery systolic pressure 28 mmHg. Patient was then in her physicians office complaining of similar chest discomfort. That she was give n a nitroglycerin. She did have a vasovagal response was transported to the emergency room. She did have a overnight stay where she had a stress test which was negative for ischemia at a moderate worklo ad. Patient continued to have episodes of chest pain, and given her risk factors was referred for left heart catheterization. This took place by myself on 09/29/16 which demonstrated nonobstructive dominique nary disease in the range of 30% stenosis of the mid LAD, and a 40% stenosis of the mid diagonal. The patient was treated initially with Zocor but developed diffuse myalgias switched to gemfibrozil whic h again caused diffuse myalgias. She also stopped her gemfibrozil due to severe joint and muscle pain similar to her statins. She discontinued the gemfibrozil, and her symptoms have completely resolved. Her Zocor was changed to Crestor and is doing quite well, she denied any myalgias. she denies any exertional angina, chest pain, shortness of breath or dyspnea on exertion. Otherwise she feels well. S he was recently diagnosed with left plantar fasciitis, and has been going through different therapies to corrected. He is exercising by riding on a recumbent bike without difficulty. In our office edmund sheikh her blood pressure is 100/64, and pulse is 68 and regular. Her physical exam is as below. Her lipids as of 05/21/16 showed LDL of 130, and HDL 38. Her lipids as of 09/05/16 showed an LDL of 119, and HDL 35. Repeat lipids are pending. Intake Vital Signs01/24/18 Height 5 ft 5 in 01/24/18 Weight: 234 lb 01/24/18 Body Mass Index (BMI) 38.9 01/24/18 Blood Pressure 100/64 Intake Visit Reasons: [address] [facility] ([place], [place]) Required: No Allergies simvastatin [From Zocor] Adverse Reaction (Severe, Verified 01/24/18 15:26) severe myalgias and pain gemfibrozil Adverse Reaction (Intermediate, Verified 01/24/18 15:26 ) Myalgias/joint pain hydromorphone HCl [From Dilaudid] Adverse Reaction (Verified 01/24/18 15:26) Other oxycodone HCl [From Percocet] Adverse Reaction (Verified 01/24/18 15:26) Nausea propoxyphene naps ylate [From Darvocet-N 100] Adverse Reaction (Verified 01/24/18 15:26) Nausea Medications Propranolol HCl [Inderal LA (Beta Enrike)] 80 mg PO DAILY 07/03/13 [History Confirmed 01/24/18] Aspirin E.C. [Ecotrin] 81 mg PO DAILY@0800 tab 02/13/15 [Rx Confirmed 01/24/18] Cholecalciferol (Vitamin D3) [Vitamin D3] 2,000 unit PO DAILY 09/04/16 [History Confirmed 01/24/18] Hydrochlorothiazide [Hctz] 25 mg P O DAILY 09/04/16 [History Confirmed 01/24/18] Zolpidem Tartrate [Ambien Cr] 6.25 mg PO QHS 09/04/16 [History Confirmed 01/24/18] potassium chloride ER 20 mEq tablet,extended release 20 meq PO QDAY 07/15 [History Confirmed 01/24/18] coenzyme Q10 100 mg capsule 200 mg PO QDAY cap 01/24/18 [History Confirmed 01/24/18] meloxicam 15 mg tablet 15 mg PO QDAY 01/24/18 [History Confirmed 01/24/18] rosuvasta tin 5 mg tablet 5 mg PO QDAY 01/24/18 [History Confirmed 01/24/18] [facility] Medical History Obstructive sleep apnea (Chronic) History of pulmonary embolism (Chr onic) Atherosclerosis of coronary artery of [place] heart without angina pectoris (Chronic) Hypertension (Chronic) Bradycardia (Chronic) Hyperlipidemia (Chronic) Blood glucose elevated (Chronic) Depressi on (Chronic) Migraine (Chronic) Surgical History History of appendectomy (Chronic) History of left heart catheterization (Chronic 09/29/16) History of total abdominal hysterectomy (Chronic) History of total knee replacement (TKR) (Chronic) Hx of cholecystectomy (Chronic) Family History Father CAD (coronary artery disease) Brother CAD (coronary artery disease) Social History Smoking Status: Never smoker ROS Const Const: Negative for fatigue, weakness, body ache, fever(s), headache(s), chills, frequent fall s, night sweats, daytime sleepiness, difficulty sleeping, excessive sweating, weight gain, weight loss, increased appetite, poor appetite, anorexia or other Eyes Eyes: Negative for blind spots, loss of peripheral vision, transient loss of vision, blurry vision, change in vision, double vision, floaters, tunnel vision or other ENT ENT: Negative for headache(s), dizziness, hearing loss, tinnitus, Nosebl eed/epistaxis, post nasal drip, lip swelling, tongue swelling, bleeding gums, hoarseness, neck pain, dry mouth, other or balance problems Cardio Chest Pain: No Palpitations: No Edema: None Muscle aches with walking: None Resp Respiratory: Negative for SOB with activity, SOB at rest, SOB orthopnea\SOB lying down, Cough, Coughing up blood/hemoptysis, chest congestion, pain on inspiration, snoring, strid or, wheezing, crackles, paroxysmal nocturnal dyspnea or other GI GI: Negative nausea, vomiting, heartburn, constipation, belching, bloating, cramping, vomiting blood/hematemesis, bright, red blood in st ools, black,tarry stools, loose stools, Difficulty Swallowing or other : Negative for hematuria, frequent nighttime urination/ nocturia, erectile dysfunction or abnormal vaginal bleeding Musc Musc: Positive for joint pain (plantar fasciitis in foot); negative for balance problems, muscle aches/ myalgia or muscle weakness Skin Skin: Negative redness, non- healing lesions, rash, unusual bruising, sk in ulcer, wounds, jaundice or other Neuro Neuro: Negative for weakness, headache(s), frequent falls, blurry vision, double vision, dizziness, lightheadedness, near syncope, syncope, orthostatic symptoms , confusion, memory loss, restless legs, vertigo, seizures, lack of coordination or other Benoit Hematologic/Lymphatic: Negative for easy bleeding, easy bruising, enlarged lymph nodes or other Endo Endo: Negative for fatigue, excessive sweating, cold intolerance, heat intolerance, flushing, increased thirst/drinking, increased hunger, hair loss, hair growth or other Psych Psych: Negative for anxiety, de pression, thoughts of harming anyone, thoughts of harming yourself, visual hallucinations, panic attacks or audible hallucinations Allergy Allergy/Immunology: Negative for lip swelling, Negative for ton ehsan swelling, Negative for rash, Negative for throat swelling, Negative for hives Cardiology Exam Const Appearance: cooperative, healthy appearing and no acute distress Nutritional Appearance: well no urished Orientation: alert, oriented x3 and oriented to person Head Head: normal to inspection, atraumatic and normocephalic Nose: external nose normal Face and Sinus: face symmetric Mouth: oral mucosae normal Eyes General: appearance normal, both eyes and all related structures Eyelids: eyelids normal Conjunctivae: conjunctivae normal Pupils: PERRL and normal by confrontation EOM: EOM intact bilatera lly Neck Neck: normal visual inspection and full ROM Carotids: normal carotid upstroke Chest Chest inspection: normal inspection of the chest Auscultation: Bilateral: Clear to Auscultation Cardio Palpat ion: normal PMI Rate: regular rate Rhythm: regular rhythm Heart sounds: S1 normal and S2 normal GI GI: normal to inspection, no hepatosplenomegaly and bowel sounds present Neuro General: alert, oriented x3, awake, CN's II-XI intact bilaterally and moves all extremities Skin Skin: no rashes or lesions noted Extremities Pulses: Normal: Right Femoral Pulse, Left Femoral Pulse, Right Dorsalis Pedis Pulse, Left Dorsalis Pedis Pulse, Right Posterior Tibial Pulse, Left Posterior Tibial Pulse, Right Radial Pulse, Left Radial Pulse Lower Extremity Edema: None: Bilateral Psych Psychological: normal affect A ssessment AND Plan 1. Atherosclerosis of coronary artery of [place] heart without angina pectoris I25.10 Non Obs CAD Plan 1. Coronary artery disease: No anginal symptoms at this time. No indication for any additional testing. She is taking and tolerating her medicines well. Her blood pressure is well controlled. I recommended that she continue her baby aspirin, hydrochlorothiazide, potassium and propr anolol. 2. Hyperlipidemia E78.5 Plan 2. Hyperlipidemia: It appears the patient is able to tolerate Crestor without difficulty. Recommend continuing Crestor. Her PCP monitors her LDL cholesterol. Recomm end an LDL less than 70. 3. Return office in 6 months. This note was generated using a voice recognition system and there may be incorrect words, spelling or punctuation that were not noted when review ing the office note prior to saving. Plan Detail Follow Up +6M ([place]) Coding Level of Care Code Off vis,est,level 3 Diagnoses Atherosclerosis of coronary artery of [place] heart without angina pect ranulfo I25.10 Hyperlipidemia E78.5 Coding Level of Care Code Off vis,est,level 3 Diagnoses Atherosclerosis of coronary artery of [place] heart without angina pectoris I25.10 Hyperlipidemia E78.5 12/06 1536 <Electronically signed by Puneet Alexander MD> Date Puneet Alexander MD Cosigner Signature: Date (if applicable) CC: Kelly Hannah MD 12-Aug-2017 Foot min 3 Views Result: Comments: See Note; NOTES: [facility] Imaging Services [address] [place] [address] Foot min 3 Views MR#: [id number] Acct: [id number] Name: DIANA ESCUDERO OLGA Rep #: [id number] : 1950 F 67 From: Aaron Salgado MD PCP: Kelly Hannah MD Status: REG CLI Study: Foot min 3 Views Date of Exam: 08/12/17 Exam# [id number] Ordering Dr: Kelly Hannah MD STUDY: X-RAY - LEFT FOOT CLINICAL: Female, 67 years old. Left heel pain. TECHNIQUE: 3 view(s) of the foot. COMPARISON: None. FINDINGS: There is a plantar calcaneal spur. Normal vis ualized subtalar, talonavicular, calcaneocuboid, tarsal and tarsometatarsal articulations. Normal metatarsi. Normal metatarsophalangeal joint of the great toe. Normal tibial and fibular sesamoid bones . Normal interphalangeal joint of the great toe. Normal phalanges of the great toe. Normal second through fifth metatarsophalangeal joints. Normal interphalangeal joints and phalanges of the lesser toe s. The soft tissue structures are unremarkable. RAD/Foot min 3 Views IMPRESSION: Plantar spur. Electronically Signed: Aaron Salgado MD 08/08/21 at 14:14 EST Tel [phone], Service support , CC: Kelly Hannah MD Manager Country: Signed 05-Aug-2017 TXT - Blood Flow Screening Result: Comments: See Note; NOTES: [facility] Cardiovascular Services [address] [place] [address] 08/05/17 0756 MR#: [id number] Acct: [id number] Name: DIANA ESCUDERO Rep #: [id number] : 1950 67 From: Marcus Garza MD Attending Dr: Kelly Hannah MD Status: REG REF Ordering Dr: Date: 08/05/17 Location: [facility] Sex: F C Admitted: Carotid Duplex Ultrasound Abdominal Aorta The right ECA velocity is less than 125 cm/s. The maximal outside diameter of the proximal The right maximum ICA velocity is 77.4/22.3 cm/s.aorta measures 1.51 cm in the longitudinal axis. The left ECA velocity is less than 125 cm/s. The maximal outside diameter of the proximal The left maximum ICA velocity is 51.0/17.6 cm/s. aorta measures 1.57 x 1.68 cm in the cross- There is insignificant plaque f ormation noted on sectional axis. the right side. There is insignificant plaque formation noted on the left side. Ankle Brachial Index The right ankle/ brachial index is 1.1. The left ankle/ brachial i ndex is 1.1. Medical History and Assessment The client presents with a history of high blood pressure. The heart rate is 70 beats per minute. The heart rhythm is regular. The right blood pressure is 12 2/78. The left blood pressure is 124/82. The assessment was performed by Julissa Ortega RVT. Interpretation Summary Normal carotid artery screening (0 to 15% narrowing). Normal aortic ultrasound exam. The ankle/brachial index is normal (1.0 or greater). Performed By: Jj Ortega RVT Electron ically signed by: Marcus Garza MD on 08/05/2017 09:30 PM 08/05/17 3810 Date Marcus Garza MD CC: Kelly Hannah MD Date Dictated: 08/05/17 075 T ranscribed: 08/05/172129 Manager Country: Signed 15-Jul-2017 Cardiology Visit Report Result: Comments: See Note; NOTES: [facility] [address] [place] [address] OFFICE VISIT Date of Service: 07/15/17 MR#: [id number] Acct: [id number] Name: DIANA ESCUDERO Rep #: [id number] : 1950 Provider: Puneet Alexander MD Age/Sex: 67/F Location: [facility] Status: Signed [facility] 6 M FU: Chief Complaint: routin F/u Details: HPI This is a 66-year-old female who was initially referred to us for evaluation of chest discomfort. Patient has had pulmonary embolism in the past. She was on a factor X a inhibitor for this. She is no longer on this. She does have a histo ry of hypertension and hyperlipidemia. She also has a strong family history of coronary artery disease. She states that approximately a month prior to her initial visit, she was having chest discomfort . It was at rest and in the evening. She was able to ride her bike and swim without any difficulty. She describes this as a heaviness that was similar to what she had when she had her PE. She did have a CT a done this was negative for PE. She then had an echocardiogram which demonstrated normal LV size left ventricular systolic function is normal with an estimated ejection fraction of 60%. Left atrium is mildly enlarged. Mild tricuspid valve insufficiency. Pulmonary artery systolic pressure 28 mmHg. Patient was then in her physicians office complaining of similar chest discomfort. That she was give n a nitroglycerin. She did have a vasovagal response was transported to the emergency room. She did have a overnight stay where she had a stress test which was negative for ischemia at a moderate worklo ad. Patient continued to have episodes of chest pain, and given her risk factors was referred for left heart catheterization. This took place by myself on 09/29/16 which demonstrated nonobstructive dmoinique nary disease in the range of 30% stenosis of the mid LAD, and a 40% stenosis of the mid diagonal. The patient was treated initially with Zocor but developed diffuse myalgias switched to gemfibrozil whic h again caused diffuse myalgias. She just stopped her gemfibrozil today due to severe joint and muscle pain similar to her statins. She discontinued the gemfibrozil, and her symptoms have completely res olved. she denies any exertional angina, chest pain, shortness of breath or dyspnea on exertion. Otherwise she feels well. She has backed exercise but has been somewhat limited due to her myalgias. In our office today her blood pressure is 118/68, and pulse is 64 and regular. Her physical eexam is as below. Her lipids as of 05/21/16 showed LDL of 130, and HDL 38. Her lipids as of 09/05/16 showed an LD L of 119, and HDL 35. Repeat lipids are pending. Intake Vital Signs07/15/17 Height 5 ft 5 in 07/15/17 Weight: 236 lb 07/15/17 Body Mass Index (BMI) 39.2 07/15/17 Blood Pressure 118/68 07/15/17 Respir atory Rate 16 07/15/17 Pulse Rate 64 Intake Visit Reasons: 6 M FU Allergies hydromorphone HCl [From Dilaudid] Adverse Reaction (Verified 09/04/16 10:16) Other oxycodone HCl [From Percocet] Adverse Re action (Verified 09/04/16 10:16) Nausea propoxyphene napsylate [From Darvocet- N 100] Adverse Reaction (Verified 09/04/16 10:16) Nausea Medications Propranolol HCl [Inderal LA (Beta Enrike)] 80 mg PO DAILY 07/03/13 [History Confirmed 07/15/17] Aspirin E.C. [Ecotrin] 81 mg PO DAILY@0800 tab 02/13/15 [Rx Confirmed 07/15/17] Cholecalciferol (Vitamin D3) [Vitamin D3] 2,000 unit PO DAILY 09/04/16 [Histo ry Confirmed 07/15/17] Hydrochlorothiazide [Hctz] 25 mg PO DAILY 09/04/16 [History Confirmed 07/15/17] Zolpidem Tartrate [Ambien Cr] 6.25 mg PO QHS 09/04/16 [History Confirmed 07/15/17] Bacillus coagula ns 10 billion cell capsule,delayed release cell PO .QD ea 07/15/17 [History Confirmed 07/15/17] potassium chloride ER 20 mEq tablet,extended release 20 meq PO QDAY 07/15/17 [History Confirmed 07/15/17] PFSH Medical History Hypertension (Chronic) Bradycardia (Chronic) Hyperlipidemia (Chronic) Atherosclerosis of coronary artery of [place] heart without angina pectoris (Chronic) Blood glucose elevated (Chronic) Depression (Chronic) History of pulmonary embolism (Chronic) Migraine (Chronic) Obstructive sleep apnea (Chronic) Surgical History History of appendectomy (Chronic) History of left heart c atheterization (Chronic 09/29/16) History of total abdominal hysterectomy (Chronic) History of total knee replacement (TKR) (Chronic) Hx of cholecystectomy (Chronic) Social History Smoking Status: Ne lenard smoker Assessment AND Plan Plan 1. Hypercholesterolemia: The patient is unable to take statins or gemfibrozil, due to myalgias. I have recommended that she begin an extra I's program in earnest in order to facilitate and improve her cholesterol situation. The patient has Sanchez understanding and is going to begin an exercise program in the near future. Once this is been in place for about 6 mo nths we will repeat her cholesterol numbers. 2. Coronary artery disease: The patient has minimal coronary artery disease and no symptoms at this time. Recommend that she continue her current dose of ba by aspirin, propanolol, and hydrochlorothiazide. 3. Return office in 6 months This note was generated using a voice recognition system and there may be incorrect words, spelling or punctuation that wer e not noted when reviewing the office note prior to saving. Plan Detail Follow Up 6 Months ([place]) Coding Level of Care Code Off vis,est,level 3 07/15/17 1513 <Electronically signed by Walter Alexander MD> Date Puneet Alexander MD Cosigner Signature: Date (if applicable) CC: 19-Apr-2017 SCREENING MAMM (CAD), BILAT Result: Comments: See Note; NOTES: [facility] Imaging Services [address] [place] [address] SCREENING MAMM (CAD), BILAT MR#: [id number] Acct: [id number] Name: DIANA ESCUDERO Rep # : [id number] : 1950 F 67 From: Aaron Salgado MD PCP: Kelly Hannah MD Status: REG CLI Study: SCREENING MAMM (CAD), BILAT Date of Exam: 04/19/17 Exam# [id number] Ordering Dr: Kelly Hannah MD MAMMOGRAPHY - BILATERAL SCREENING REASON FOR EXAM: Female, 67 years old. Routine annual screening examination. PERTINENT HISTORY: Non-contributory. TECHNIQUE: Digital bilateral breast juan (3D beth mographic acquisition) in the CC and MLO projections. 2-D mediolateral oblique (MLO) and craniocaudad (CC) views of both breasts were obtained. CAD: Full Field Digital Mammography with Computer Added De tection was performed. COMPARISON: Comparison is made with prior study dated March 23, 2016 and January 11, 2015. FINDINGS: Breast Composition: There are scattered ar eas of fibroglandular density. There are no dominant masses or suspicious calcifications. No other significant abnormalities are identified. There has been no significant change since the prior study. HPBI/SCREENING MAMM (CAD), BILAT IMPRESSION: Stable bilateral screening mammogram. Yearly follow-up mammogram recommended. (A) ASSESSMENT CATEGORY: BIRADS Category 1: Negative. A letter regarding these results will be sent to the patient by the facility within 30 days. Approximately 10% of breast cancers a re not detected by mammography. A normal mammogram should not delay biopsy of a clinically suspicious abnormality. [id number] Electronically Signed: Aaron Salgado MD at 8:33 EDT Tel [phone], Service support , CC: Kelly Hannah MD Manager Country: Signed 16-Sep-2016 Echocardiogram Complete Result: Comments: See Note; NOTES: [facility] Cardiovascular Services [address] [place] [address] Echo Complete 09/16/16 0956 MR#: [id number] Acct: [id number] Name: DIANA ESCUDERO Rep #: [id number] : 1950 66 From: Emil Craven MD Attending Dr: Kelly Hannah MD Status: REG CLI Ordering Dr: Kelly Hannah MD Date: 09/16/16 Location: [facility] Sex: F C Admitted: Reason For Bartolo dy: chest pain Procedure This was a 2D Doppler, Color Flow transthoracic echocardiogram. Exam performed in department. Left Ventricle Normal LV size. Left ventricular systolic function is normal. The estimated ejection fraction is 60 %. No regional wall motion abnormalities noted. Right Ventricle Normal RV size. Normal systolic function. Atria The left atrium is mildly enlarged. Normal right atriu m. Mitral Valve Normal mitral valve. Trivial eccentric mitral valve insufficiency. Tricuspid Valve Normal tricuspid valve. Mild (1+) tricuspid valve insufficiency. Pulmonary artery systolic pressure is 28 mmHg. Aortic Valve Normal aortic valve. Trisinus/trileaflet aortic valve. Pulmonic Valve Normal pulmonic valve. Great Vessels Normal aortic root. The pulmonary artery is normal size. Normal infer ior vena cava. Pericardium/Pleural No pericardial effusion. MMode/2D Measurements & Calculations LVIDd: 4.7 cm IVSd: 1.0 cm Ao root diam: 3.3 cm LVIDs: 3.1 cm LVPWd: 0.80 cm LA dimension: 4.0 cm RVDd: 3.5 cm FS: 34.7 % LAV(MOD-bp): 93.5 ml LA A4 area: 24.2 cm2 LAV(MOD-bp) Indexed: 43.7 ml/m2 LAV(MOD-sp2): 94.8 ml LAV(MOD-sp4): 88.9 ml Doppler Measurements & Calculations MV E max annabelle: 84.2 cm/sec Lat Peak E' Annabelle: 5.6 cm/sec Med Peak E' Annabelle: 5.7 cm/sec MV A max annabelle: 71.2 cm/sec E/E' lat: 15.2 E/E' med: 14.8 MV E/A: 1.2 Ao V2 max: 87.6 cm/sec LV V1 max: 73.3 cm/sec PA V2 max: 70.6 cm/sec Ao max P.1 mmHg LV V1 max P.2 mmHg TR max annabelle: 245.1 cm/sec TR max P.3 mmHg Interpretation Summary Normal LV size. Left ventricular systolic function is normal. The estimated ejection fraction is 60 %. The left atrium is mildly enlarged. Mild (1+) tricuspid valve insufficiency. Pulmonary artery systolic pressure is 28 mmHg. Ordering Physician: Kelly Hannah Performed By: Maggi Ruffin, ANNEMARIE, RVT 09/16/16 1145 Date Emil Craven MD CC: Kelly Hannah MD Date Dictated: 09/16/16 0956 Date Transcribed: 09/16/16 1145 Manager Country: Signed 04-Sep-2016 CTA Chest W/WO Contrast Result: Comments: See Note; NOTES: [facility] Imaging Services [address] [place] [address] Verdana 4d CTA Chest W/WO Contrast MR#: [id number] Acct: [id number] Name: DIANA ESCUDERO Alejandra Rep #: [id number] : 1950 F 66 From: Aaron Salgado MD PCP: Kelly Hannah MD Status: REG ER Study: CTA Chest W/WO Contrast Date of Exam: 09/04/16 Exam# [id number] Ordering Dr: Leanne Finn STUDY: CTA CHEST REASON FOR EXAM: Female, 66 years old. Midsternal chest pain. RADIATION DOSAGE (If Supplied By Facility): CTDIvol = ( 19.56 ) mGy, DLP = ( 678.46 ) mGycm TECHNIQUE: The examinati on was performed with the intravenous administration of 100ML ml of Isovue 370 contrast material. Post-processing of the angiographic images was performed, with multiplanar reformation and 3D reconstruc tion. Individualized dose optimization techniques were used for this CT. COMPARISON: Comparison is made with prior study dated December 03, 2015. FINDINGS: Stable smal l bilateral axillary lymph nodes. Normal enhancement of the main pulmonary artery and right and left pulmonary arteries. Normal enhancement of the bilateral peripheral pulmonary arteries. There is no d emonstrated pulmonary embolism. Normal thoracic aorta and visualized great vessels. There is no demonstrated aortic dissection. There are calcifications of the coronary arteries. Normal mediastinum. Normal hilar regions. Normal visualized trachea and bronchi. The lungs are well expanded. Mild degree of increased markings at the lung bases suggestive of scarring. No focal infiltration is seen. N ormal pleura. Normal chest wall structures. There are degenerative changes of thoracic spine. Small hiatal hernia. CT/CTA Chest W/WO Contrast IMPRESSION: Normal CTA chest examination, without a demonstrated pulmonary embolism or arterial dissection. Findings suggestive of mild degree of bibasilar linear scarring. Electronically Signed: Burak Salgado MD at 11:40 EDT Tel [phone], Service support [phone], CC: Leanne Finn MD; Kelly Hannah MD Manager Country: Signed 23-Jun-2016 Dexa Bone Density Study (HP) Result: Comments: See Note; NOTES: [facility] Imaging Services [address] [place] [address] Verdana 4d Dexa Bone Density Study () MR#: [id number] Acct: [id number] Name: EDUARDO ESCUDERO OLGA Rep #: [id number] : 1950 F 66 From: Aaron Salgado MD PCP: Kelly Hannah MD Status: REG CLI Study: Dexa Bone Density Study () Date of Exam: 06/23/16 Exam# [id number] Ordering Dr: Kelly Posey MD STUDY: DUAL ENERGY X-RAY ABSORPTIOMETRY / DXA REASON FOR EXAM: Female, 66 years old. The patient is postmenopausal. Loss of height. TECHNIQUE: Bone Mineral Density (BMD) measurements o f lumbar spine and bilateral hips were obtained. COMPARISON: None. FINDINGS: Lumbar Spine (L1-L4): g/cm2 (1.520) / T-score (2.9) / Z-score (4.5) Findings are sugge stive of normal bone density with a low fracture risk. Left Femur Total: g/cm2 (1.191) / T-score (1.5) / Z-score (2.6) Left Femoral Neck: g/cm2 (1.226) / T- score (1.4) / Z-score (2.8) Right Femur Total : g/cm2 (1.219) / T-score (1.7) / Z-score (2.8) Right Femoral Neck: g/cm2 (1.230) / T-score (1.4) / Z-score (2.8) HPBD/Dexa Bone Density Study (H P) IMPRESSION: The patient is considered normal as outlined below according to World Kvng Organization (WHO) criteria with a low fracture risk. Reference Informati on: The T-score is the number of standard deviations above or below the standard which is normal for young adults at their peak bone mineral density. The World Health Organization (WHO) interprets the T -scores as follows: Above -1 Normal bone density Between -1 and -2.5 Osteopenia Equal to / or below -2.5 Osteoporosis As a practical clinical guideline, osteopenia may be graded as follows: Mild -1 th rough -1.5 Moderate -1.6 through -2.0 Severe -2.1 through -2.4 The Z-score is the number of standard deviations above or below age-matched controls. A Z- score of less than -1.5 would be considered abno rmal. References: 1. NIH Osteoporosis and Related Bone Diseases http://www.osteo.org 2. International Society for Clinical Densitometry http://www.iscd.org 3. National Osteoporosis Foundation http://ww w.nof.org Electronically Signed: Aaron Salgado MD at 16:05 EST Tel [phone], Service support [phone], CC: Kelly Hannah MD Manager Country: Signed 20-Apr-2016 Venous Duplex Lower Extremity Result: Comments: See Note; NOTES: [facility] Cardiovascular Services [address] [place] [address] Venous Duplex US, Unilateral 04/20/16 1428 MR#: [id number] Acct: [id number] Name: DIANA ESCUDERO Rep #: [id number] : 1950 66 From: Marcus Garza MD Attending Dr: Kelly Hannah MD Status: REG CLI Ordering Dr: Kelly Hannah MD Date: 04/20/16 Location: [facility] Sex: F C Admitted: Reason For Study: LEG PAIN RIGHT LEFT GSV is normal. CFV is compressible, spontaneous, phasic , CFV is compressible, spontaneous, phasic, competent, and demonstrates normal competent and demonstra sarah normal augmentation. augmentation. FV is compressible, spontaneous, phasic, competent and demonstrates normal augmentation. POP V is compressible, spontaneous, phasic, competent and demonstrates nor mal augmentation. T/P Trunk is compressible. PTV is compressible. RT PerV is compressible. Procedure Exam performed in department. A preliminary report was called and/or faxed to Dr. Hannah. Interpret ation Summary Deep veins of the right lower extremity are patent and compressible segmentally. There is no evidence of right lower extremity deep vein thrombosis. Valvular competence appears intact with in the proximal deep venous system on the right . The right greater saphenous vein appears patent and compressible segmentally. Ordering Physician: Kelly Hannah Performed By: Melani Goodwin RVT 04/20/162149 Date _ Marcus Garza MD CC: Kelly Hannah MD Date Dictated: 04/20/16 1428 Date Transcribed: 04/20/162149 Manager Country: Signed 23-Mar-2016 Bilat Scrn Digital AND CAD Result: Comments: See Note; NOTES: [facility] Imaging Services [address] [place] [address] Verdana 4d Bilat Scrn Digital AND CAD MR#: [id number] Acct: [id number] Name: ANGELA ESCUDERO Rep #: [id number] : 1950 F 66 From: Aaron Salgado MD PCP: Kelly Hannah MD Status: REG CLI Study: Bilat Scrn Digital AND CAD Date of Exam: 03/23/16 Exam# [id number] Ordering Dr: Kelly Resendiz i, MD MAMMOGRAPHY - BILATERAL SCREENING REASON FOR EXAM: Female, 66 years old. Routine annual screening examination. PERTINENT HISTORY: Non- contributory. TECHNIQUE: Digital bilateral breast t kasie (3D mammographic acquisition) in the CC and MLO projections. 2-D mediolateral oblique (MLO) and craniocaudad (CC) views of both breasts were obtained. CAD: Full Field Digital Mammography with Comput er Added Detection was performed. COMPARISON: Comparison is made with prior study dated January 11, 2015 and March 15, 2013. FINDINGS: Breast Composition: There ar e scattered areas of fibroglandular density. There are no dominant masses or suspicious calcifications. No other significant abnormalities are identified. There has been no significant change since prior study. HPBI/Bilat Scrn Digital AND CAD IMPRESSION: Stable bilateral screening mammogram. Yearly follow-up mammogram recommended. (A) __ ASSESSMENT CATEGORY: BIRADS Category 1: Negative. A letter regarding these results will be sent to the patient by the facility within 30 days. Approximately 10% of br east cancers are not detected by mammography. A normal mammogram should not delay biopsy of a clinically suspicious abnormality. [id number] Electronically Signed: Aaron Salgado MD at 7:51 EDT Tel [phone], Service support [phone], CC: Kelly Hannah MD Manager Country: Signed 02-Jan-2016 Venous Duplex Lower Extremity Result: Comments: See Note; NOTES: [facility] Cardiovascular Services [address] [place] [address] Venous Duplex US - Johnny Extrem 01/02/16 1454 MR#: [id number] Acct: [id number] Name: DIANA ESCUDERO Rep #: [id number] : 1950 65 From: Marcus Garza MD Attending Dr: Kelly Hannah MD Status: REG CLI Ordering Dr: Kelly Hannah MD Date: 01/02/16 Location: [facility]S Se x: F C Admitted: Reason For Study: Hx of PE, CP RIGHT LEFT GSV is normal. GSV is normal. CFV is compressible, spontaneous, phasic, CFV is compressible, spontaneous, phasic , competent and d emonstrates normal competent, and demonstrates normal augmentation. augmentation. FV is compressible, spontaneous, phasic, FV is compressible, spontaneous, phasic, competent and demonstrates normal c ompetent and demonstrates normal augmentation. augmentation. POP V is compressible, spontaneous, phasic, POP V is compressible, spontaneous, phasic, competent and demonstrates normal competent and d emonstrates normal augmentation. augmentation. T/P Trunk is compressible. T/P Trunk is compressible. PTV is compressible. PTV is compressible. RT PerV is compressible. LT PerV is compressible. Unab le to visualize prox calf veins due to Unable to visualize prox calf veins due to patient body habitus. patient body habitus. Procedure Exam performed in department. The exam was of fair technical quality due to patient body habitus. A preliminary report was called and/or faxed to Dr. Hannah. Interpretation Summary Deep veins of the lower extremities are bilaterally patent and compressible segmentally. There is no evidence of deep vein thrombosis on either side. Valvular competence appears intact within the proximal deep venous systems bilaterally. The greater saphenous veins appear b ilaterally patent and compressible segmentally. The proximal calf veins were not visualized on either side due to the patient's body habitus. Ordering Physician: Kelly Hannah Referring Physician: Kelly Hannah Performed By: Rachana Egan, ANNEMARIE, RVT 01/02/16 1653 Date Marcus Garza MD CC: Kelly Hannah MD Date Dictated: 01/02/16 1454 Date Transcribed: 01/02/161653 Manager Country: Signed 12-Dec-2015 12 Lead Electrocardiogram Result: Comments: See Note; NOTES: [facility] Cardiovascular Services [address] [place] [address] 12 Lead EKG 12/03/15 1125 MR#: [id number] Acct: [id number] Name: DIANA DOWLING OLGA Rep #: [id number] : 1950 65 From: Puneet Alexander MD Attending Dr: Status: DEP ER Ordering Dr: Leanne Finn MD Date: 12/03/15 Location: ED Sex: F C Admitted: Test Reason : CP Blood Pressure : / mmHG Vent. Rate : 056 BPM Atrial Rate : 056 BPM P-R Int : 154 ms QRS Dur : 074 ms QT Int : 420 ms P-R-T Axes : 042 -12 010 degrees QTc Int : 405 ms Sinus bradycardi a Otherwise normal ECG Confirmed by PUNEET ALEXANDER ([id number]), editor book SHIELA DOWELL ([id number]) on 12/09/2015 10:54:37 AM Referred By: KIRT Confirmed By:PUNEET ALEXANDER 12/09/15 1054 Date ___ Puneet Alexander MD CC: Kelly Hannah MD Date Dictated: 12/03/151124 Date Transcribed: 12/03/151124 Manager Country: Signed 03-Dec-2015 Emergency Department Summary Result: Comments: See Note; NOTES: [facility] Medical Records Department [address] [place] [address] Emergency Department Summary MR#: [id number] Acct: [id number] Name: DIANA ESCUDERO OLGA Rep #: [id number] : 1950 65 From: Leanne Finn MD PCP: Kelly Hannah MD Status: DEP ER DATE OF SERVICE: 12/03/2015 CHIEF COMPLAINT: Chest pain. HISTORY: This is a 65 -year-old female that is worried that she could have a PE. She had one a couple of years ago following a knee replacement surgery and had similar symptoms to what she is experiencing right now. She bran s had about a week of a burning-type sensation in her anterior chest seems to be worse with inspiration. She is not short of breath. No hemoptysis. No nausea, no sweats, no other symptoms whatsoever. She was on Xarelto for some time following the initial PE diagnosis, but it was not an unprovoked PE. So she had been taken off the Xarelto last January. She has had no recent travel, immobilization, surgery or other things that would put her at increased risk of PE at least not by history. PHYSICAL EXAMINATION: VITAL SIGNS: Noted and unremarkable. She is not tachypneic or hypoxic. She speaks in full sentences and has nonlabored breathing. GENERAL: She is pleasant, alert and appropriate. CHEST: Not tender to palpation. LUNGS: Clear bilaterally without murmurs. EXTREMITIES: Trace pedal fabien ma that is symmetric, 2+ pedal pulses. ABDOMEN: Soft and benign. CLINICAL COURSE AND DECISION MAKING: Given this patient's past history and her description of the pain, I did get a CTA of the chest , which fortunately was negative for PE. She had some mild bilateral atelectasis, but no effusion or other obvious pathology. EMERGENCY DEPARTMENT COURSE: EKG was normal sinus. CBC, chemistry and tr oponin also all unremarkable. The patient was reassured. She was very relieved to hear this and we did discuss that her symptoms are consistent with pleurisy given that there is no evidence of PE. She will be discharged in good condition. Follow up with her PCP. DIAGNOSIS: Pleurisy. Leanne Finn MD T: [facility] JOB: [id number] 12/03/15 1536 <Electronically signed by Leanne Finn MD& #62; Date Leanne Finn MD Cosigner Signature (If Indicated): Date CC: Kelly Hannah MD Da te Dictated: 12/03/15 1357 Date Transcribed: 12/03/151356 Manager Country: Signed 03-Dec-2015 Discharge Instruction Result: Comments: See Note; NOTES: [facility] Medical Records Department [address] [place] [address] Discharge Instruction 12/03/15 1354 MR#: [id number] Acct: [id number] Name: DIANA ESCUDERO OLGA Rep #: [id number] : 1950 65 From: Leanne Finn MD PCP: Kelly Hannah MD Status: REG ER ED Disposition - Plan for ED Patient: Chief Complaint: Chest Pain Instru ctions: ED Pleurisy Referrals: Kelly Hannah MD [Primary Care Provider] - 3- 5 Days if not improving What to do if you have Problems For any increased pain, shortness of breath, bleeding, nausea or vomiting, chest pain, or any unexpected problems, contact your doctor. Call [facility] ([phone]) or report to the closest Emergency Room. Call 911 if necessary. 12/03/15 1357 &# 60;Electronically signed by Leanne Finn MD> Date Leanne Finn MD Cosigner Signature (If Indicated): Date CC: Kelly Hannah MD 03-Dec-2015 CTA Chest W/WO Contrast Result: Comments: See Note; NOTES: [facility] Imaging Services [address] [place] [address] Verdana 4d CTA Chest W/WO Contrast MR#: [id number] Acct: [id number] Name: DIANA MENESES Rep #: [id number] : 1950 F 65 From: Aaron Salgado MD PCP: Kelly Hannah MD Status: REG ER Study: CTA Chest W/WO Contrast Date of Exam: 12/03/15 Exam# [id number] Ordering D r: Leanne Finn MD STUDY: CTA CHEST REASON FOR EXAM: Female, 65 years old. Bradycardia. Chest pain. Possible pulmonary embolism. RADIATION DOSAGE (If Supplied By Facility): CTDIvol = ( 22.82 ) mGy, DLP = ( 670.66 ) mGycm TECHNIQUE: The examination was performed with the intravenous administration of 100 ml of Isovue 370 contrast material. Post- processing of the angiographic images was pe rformed, with multiplanar reformation and 3D reconstruction. Individualized dose optimization techniques were used for this CT. COMPARISON: Comparison is made with prior study dated 2015 . FINDINGS: Stable small bilateral axillary lymph nodes. Normal enhancement of the main pulmonary artery and right and left pulmonary arteries. Normal enhancem ent of the bilateral peripheral pulmonary arteries. There is no demonstrated pulmonary embolism. Normal thoracic aorta and visualized great vessels. There is no demonstrated aortic dissection. No rmal heart and pericardium. Normal mediastinum. Normal hilar regions. Normal visualized trachea and bronchi. The lungs are well expanded. Mild degree of increased linear markings at the lung bases suggestive of mild bibasilar dependent atelectasis. Normal pleura. Normal chest wall structures. There are mild degenerative changes of thoracic spine. Small hiatal hernia. IMPRESSION: Normal CTA chest examination, without a demonstrated pulmonary embolism or arterial dissection. Findings suggestive of mild degree of the dependent bibasilar atelecta sis. Electronically Signed: Aaron Salgado MD at 13:37 EDT Tel [phone], Service support [phone], CC: Leanne Finn MD; Kelly Hannah MD Manager Country: Signed 24-Jul-2015 Sleep Study Report Result: Comments: See Note; NOTES: [facility] SLEEP DISORDER [facility]ENTER [address] [place] [address] Split Night Sleep Study MR#: [id number] Acct: [id number] Name: Miguel Angel ESCUDERO Rep #: [id number] : 1950 65 From: Jimmy Coates MD PCP: Kelly Hannah MD Status: REG CLI Ordering Dr.: Kelly Hannah MD Date: 07/19/15 Sex: F C DATE OF SERVICE: 07/19/2015 SCOR ING RULES: Respiratory events were acquired and scored in accordance with the Recommended Standards and Specifications as outlined in the AASM Manual for the Scoring of Sleep and Associated Events ( m ost recent version). Please note that a reference to [facility] AHI in this report is consistent with the current Hypopnea definition according to Medicare Criteria and an AAS AHI reference is consistent wit h the current Hypopnea definition according to the AASM criteria and is recognized by [facility] as the RDI. PROCEDURE: The study was attended continuously by a telegraph repeater technician. Monitored parameters inclu ded left and right EOG, frontal, central, and occipital EEG, mental and submental EMG, left and right anterior tibialis EMG, signal ECG waveform, snore, continuous airflow with PAP device flow signal , chest and abdominal plethysmography efforts, oxygen saturation with heart rate, and body positioning with video monitoring. REFERRING PHYSICIAN: Dr. Hannah. HISTORY: The patient is a 65-year-o ld female with a calculated body mass index of 35 and [place] Sleepiness Scale score of 6/20. The patient has a known history of sleep disordered breathing as determined by overnight polysomnogram in 2010. Overall, apnea/hypopnea index was reportedly 101. The patient underwent a titration, but those records are not available for review at this time. The patient was previously prescribed Bilevel, b ut appears the patient is not using at home for undisclosed reasons. The patient is now undergoing the split night study to confirm the diagnosis of sleep disordered breathing and determine appropria te positive airway pressure setting to normalize apnea/hypopnea index and attempt to maintain oxygen saturations greater than 90%. ADDITIONAL MEDICAL HISTORY: As reported by the patient includes obe sity, hyperlipidemia, hypertension, pulmonary embolism, migraines, reflux, prediabetes. MEDICATIONS REPORTED AT TIME OF STUDY: Include hydrochlorothiazide, propranolol, potassium chloride, Victoza, alprazolam, pantoprazole, Voltaren. MASK USED DURING THE TITRATION PORTION OF THE STUDY: Medium Barrios and Paykel Eson nasal mask with chinstrap and heated humidity. SLEEP STUDY DATA: The [facility] split night study began at 1114:07 p.m. and ended 0521:59 a.m. for a total recording time of 367.9 minutes of which the patient slept 271.6 minutes for a calculated sleep efficiency of 73.8%. Note that sleep efficiency was primarily decreased due to prolonged wake durations following initiation of positive airway pressure therapy. This could be due to lack of acclimation and the patient not pre viously using positive airway pressure regularly at home. Sleep latency was 1.8 minutes with a REM latency of 211.5 minutes. REM latency appears prolonged due to fragmentation of sleep associated with respiratory events. The patient did not endorse use of a REM suppressant medication. Sleep stage percentages were as follows, N1 13.4%, N2 67.4%, N3 11.1%, REM 8.1% of total sleep. There were total of 230 arousals during the study, resulting in an overall arousal index of 50.8. The respiratory arousal index based on RDI was 44.4 while spontaneous arousal index was 6.4. Limb movement arousal inde x was 0. BASELINE RESPIRATORY DATA: During the baseline portion of the study, the patient was recorded for an hour and 45 minutes and 30 seconds of non-REM sleep. REM sleep was not recorded. The pat ient was both off supine and supine during this portion of the study. All respiratory events recorded were of obstructive nature. The patient was snoring throughout this portion of the study. The ove rall apnea/hypopnea index was 43.2 while RDI was 67.1. Note that these numbers were worse when the patient was supine with a supine AHI of 61.6 and supine RDI of 90.2. Mean oxygen saturation during th is portion of study was 95.2%, but oxygen saturations fell as low as 78%. The arousal index was 68.2 with the majority of arousals being secondary to respiratory events. CONTINUOUS POSITIVE AIRWAY P RESSURE DATA: The patient was initiated and titrated on CPAP settings of 7, 9, 11, 13, and 15 cm of water with humidification and EPR setting of 3. The patient's apnea/hypopnea index remains severely elevated on CPAP settings of 7, 9, 11, cm of water with humidification. In addition, there are both mixed and central respiratory events that become apparent, and this could be due to lack of acclima tion or possible complex sleep apnea or treatment induced central sleep apnea syndrome. It should be noted that most of these central respiratory events appear to be arousal driven. When the patient r eaches a CPAP setting of 13 cm of water with humidification, the central respiratory events resolve. On settings of 13 and 15 cm of water with humidification, the patient's AHI and RDI are normalized or at the worst and the slightly mild range. Overall, the patient appears to do best on a CPAP setting of 13 cm of water with humidification. On this setting, supine sleep and REM sleep are recorded simultaneously. The overall apnea/hypopnea index was 1.6 with RDI of 4.9. The patient was supine on the entire time on this setting. The REM index by both AHI and RDI is 0. Mean oxygen saturation was 94.9% with a minimum oxygen saturation of 90%. The arousal index was 13.1. Note the arousal index is slightly lower on a higher tested setting of CPAP of 15 cm of water with humidification and oxygen saturations are slightly higher. However, the patient has a few arousal driven central respiratory events on this setting, and the pressures may simply be too high for the patient at this time. DARRION CTROCARDIOGRAM DATA: Mean heart rate during the sleep was 60 beats per minute with a range of 52-81 beats per minute. No significant arrhythmias were present. LIMB MOVEMENT DATA: There were no alejandro odic limb movements during the study. DIAGNOSIS: Obstructive sleep apnea syndrome, G47.33. IMPRESSION: 1. Based on the baseline study, the patient has severe obstructive sleep apnea syndrome that is worse in the supine position. Note, the apnea/hypopnea index and RDI may be underestimated due to lack of REM sleep. Respiratory events were associated with arousal as well as oxygen desaturations as above. 2. CPAP setting of 13 cm of water with humidification and EPR setting of 3, the patient's apnea/hypopnea index, RDI, and arousal index is normalized. Snoring is eliminated and oxygen satur ations were maintained at/or above 90%. Note that during the titration, central respiratory events became apparent, but these appear to be arousal driven and I suspect her due to acclimation issues ra ther than a central sleep apnea induced by treatment. 3. Abnormal sleep architecture likely secondary to first night effect, possible medication effect, respiratory events, and titration. RECOMMEND ATIONS: 1. Initiate CPAP at a setting of 13 cm of water with humidification and EPR setting of 3. Allow the patient to use CPAP for approximately 4 weeks. Following the 4-week duration, the patient is to have a download of [facility]. If the AHI remained elevated, can empirically increase CPAP to 15 cm of water with humidification and EPR setting of 3 or consider having the patient return for a f ull night titration study. I would not suspect the apnea/hypopnea index to be greater than 10 based on this study. If the apnea/hypopnea index is greater than 10, a repeat titration may be beneficial. 2. Recommend the patient be advised to avoid activities or medications that could exacerbate sleep disordered breathing. 3. Recommend the patient be advised not to drive or operate heavy machinery w hen sleepy. 4. Encouraged weight loss to optimal body mass index. INTERPRETING PHYSICIAN: Jimmy Coates Jr., M.D. William Novak, MD T: [facility] JOB: [id number] CC: Jimmy Coates MD DD: 08/06 [id number] <Electronically signed by Jimmy Coates MD> Date Jimmy Coates MD Co-signature (if appli cable) Date Signed 12-Feb-2015 Chest 1 View (Portable) Result: Comments: See Note; NOTES: [facility] Imaging Services [address] [place] [address] Radiology Report MR#: [id number] Acct: [id number] Name: DIANA ESCUDERO OLGA Rep #: [id number] : 1950 F 65 From: Aaron Salgado MD PCP: Kelly Hannah MD Status: PRE ER Study: Chest 1 View (Portable) Date of Exam: 02/12/15 Exam# [id number] Ordering Dr: Kenroy Arciniega MD DY: X-RAY CHEST REASON FOR EXAM: Female, 65 years old. Chest pain. TECHNIQUE: Single AP portable view of the chest. COMPARISON: Comparison is made with prior study dated October 16, 2010. FINDINGS: EKG electrodes are seen. The lungs are clear and expanded. There is no demonstrated pleural abnormality. Normal size heart. Normal mediastinum and paula. No rmal visualized pulmonary arteries. There is atherosclerotic tortuosity of the aortic arch and descending thoracic aorta. Normal visualized thoracic spine. Normal visualized ribs, clavicles, and sh oulders. There is no demonstrated abnormality of the visualized soft tissue structures of the upper abdomen. IMPRESSION: No acute abnormality is seen. Electr onically Signed: Aaron Salgado MD at 11:08 EDT Tel [phone], Service support [phone], RAD/Chest 1 View (Portable) IMPRESSION: No acut e abnormality is seen. Electronically Signed: Aaron Salgado MD at 11:08 EDT Tel [phone], Service support [phone], CC: Kelly Hannah MD; Kenroy Arciniega MD Manager Country: Signed 12-Feb-2015 CTA Chest W/WO Contrast Result: Comments: See Note; NOTES: [facility] Imaging Services [address] [place] [address] CAT Scan Report MR#: [id number] Acct: [id number] Name: DIANA ESCUDERO Rep #: [id number] : 1950 F 65 From: Aaron Salgado MD PCP: Kelly Hannah MD Status: REG ER Study: CTA Chest W/WO Contrast Date of Exam: 02/12/15 Exam# [id number] Ordering Dr: Kenroy Arciniega MD UDY: CTA CHEST REASON FOR EXAM: Female, 65 years old. Chest pain. History of pulmonary embolism. RADIATION DOSAGE (If Supplied By Facility): CTDIvol = ( 30.47 ) mGy, DLP = ( 1540.90 ) mGycm TECH NIQUE: The examination was performed with the intravenous administration of 100ml ml of Isovue 370 contrast material. Post-processing of the angiographic images was performed, with multiplanar reform ation and 3D reconstruction. COMPARISON: Comparison is made with prior study dated July 23, 2014. FINDINGS: There is evidence of bilateral axillary lymph nod es. Normal enhancement of the main pulmonary artery and right and left pulmonary arteries. Normal enhancement of the bilateral peripheral pulmonary arteries. There is no demonstrated pulmonary embol ism. Normal thoracic aorta and visualized great vessels. There is no demonstrated aortic dissection. There are calcifications of the coronary arteries. Normal mediastinum. Normal hilar regions. Normal visualized trachea and bronchi. Minimal degree of increased linear markings at the lung bases suggestive of a mild degree of bibasilar atelectasis slightly more prominent at the left lung bas e. Normal pleura. Normal chest wall structures. Normal osseous structures. Normal visualized upper abdomen. IMPRESSION: Mild degree of increase in marking s at the lung bases suggestive of bibasilar atelectasis. Electronically Signed: Aaron Salgado MD at 12:08 EDT Tel [phone], Service support [phone], CC: Kelly Hannah MD; Kenroy Arciniega MD Manager Country: Signed 11-Jan-2015 Bilat Scrn Digital AND CAD Result: Comments: See Note; NOTES: [facility] Imaging Services [address] [place] [address] Breast Imaging Report MR#: [id number] Acct: [id number] Name: DIANA ESCUDERO Rep #: [id number] : 1950 F 64 From: Shaan Nunez DO PCP: Kelly Hannah MD Status: REG CLI Study: Bilat Scrn Digital AND CAD Date of Exam: 01/11/15 Exam# [id number] Ordering Dr: Kelly Hannah MD MAMMOGRAPHY - BILATERAL SCREENING REASON FOR EXAM: Female, 64 years old. Routine annual screening examination. PERTINENT HISTORY: Non-contributory. TECHNIQUE: Digital examination. Mediolateral oblique (MLO) and craniocaudad (CC) views of both breasts were obtained. CAD: CAD was performed on this study. COMPARISON: March 15, 2013 and January 18, 2012. FINDINGS: Breast Composition: There are scattered areas of fibroglandular density. There are no dominant masses or suspicious calcifications. Stable bilateral calcifications. No other significan t abnormalities are identified. IMPRESSION: Stable bilateral screening mammogram. Yearly follow-up recommended. (A) ASSESSM ENT CATEGORY: BIRADS Category 2: Benign. A letter regarding these results will be sent to the patient by the facility within 30 days. According to [employer], yearly mammograms are recommended starting at age 40 and continuing as long as a woman is in good health. Clinical Breast Exams should be part of a periodic health exam - about every 3 years for women in their 20s and 30s and every year for women 40 and over. Breast self exam is an option for women starting in their 20s. Any breast change noted on a breast self exam should be report promptly to the patient's healthca re provider. A negative Mammography report should not discourage follow up or biopsy of a clinically significant finding and/or abnormality. Dense breast tissue may obscure small neoplasms. Elect ronically Signed: Shaan Nunez DO at 10:22 EDT Tel [phone], Service support [phone], CC: Kelly Hannah MD Manager Country: Signed 23-Jul-2014 CTA Chest W/WO Contrast Result: Comments: See Note; NOTES: [facility] Imaging Services [address] [place] [address] CAT Scan Report MR#: [id number] Acct: [id number] Name: DIANA ESCUDERO Rep #: [id number] : 1950 F 64 From: Aaron Salgado MD PCP: Kelly Hannah MD Status: REG CLI Study: CTA Chest W/WO Contrast Date of Exam: 07/23/14 Exam# [id number] Ordering Dr: Kelly Hannah MD S TUDY: CTA CHEST REASON FOR EXAM: Female, 64 years old. Chest pain. RADIATION DOSAGE (If Supplied By Facility): CTDIvol = ( 14.61 ) mGy, DLP = ( 686.54 ) mGycm TECHNIQUE: The examination was perfo rmed with the intravenous administration of 100ml ml of Isovue 370 contrast material. Post-processing of the angiographic images was performed, with multiplanar reformation and 3D reconstruction. C OMPARISON: None. FINDINGS: Several small filling defects are seen in the right upper lobe pulmonary arterial branches in keeping with the pulmonary embolism. Normal thoracic aorta and visualized great vessels. There is no demonstrated aortic dissection. There are calcifications of the coronary arteries. Normal mediastinum. Normal hilar regions. Ambika l visualized trachea and bronchi. The lungs are well expanded. Normal pulmonary parenchyma. Normal pleura. Normal chest wall structures. Normal osseous structures. Small hiatal hernia. IMPRESSION: Multiple filling defects are seen in the right upper lobe pulmonary arterial branches in keeping with pulmonary embolism. Electronically Signed: Aaron Salgado MD at 12:47 EST Tel [phone], Service support [phone], CC: Kelly Hannah MD Manager Country: Signed 04-Jan-2014 Consultation Result: Comments: See Note; NOTES: [facility] Medical Records Department [address] [place] [id number] Consultation 01/04/14 1218 MR#: [id number] Acct: [id number] Name: DIANA SECUDERO Rep #: [id number] : 1950 63 From: Juancho Foy MD PCP: Kelly Hannah MD Status: REG [facility] Y Location: [place] [address] Problem List (1) Bradycardia Status: Acute (2) Status p ost vaginal hysterectomy Status: Acute (3) Hypertension Status: Chronic Reason for Consult Date of Consultation: 01/04/14 Reason for Consultation: Postoperative bradycardia History of Present Illness: The patient is a 63 year old F with past medical history as mentioned above admitted today for elective vaginal hysterectomy for dysfunctional uterine bleeding. Operatively, she was found to have bradycardia with heart rate of 40s to 50s. Her blood pressure was stable. In the recovery room after surgery, she received Robinul for neuromuscular blockade reversal and her heart rate continued to be low. I have been asked to see the patient in consultation for postoperative bradycardia. The patient has had denied any symptoms such as chest pain, shortness of breath, palpitations, lighthead edness or dizziness although she is lying in the bed. She denied significant cardiac history except hypertension. She had an echocardiogram done in September, that showed normal ejection fraction and no significant valvular heart disease. Patient denied history of chronic artery disease, myocardial infarction or congestive heart failure. She is on propranolol for hypertension. Denied history of h ypo-or hyperthyroidism. At this time, her heart rate is around 50s, blood pressure stable. EKG showed sinus bradycardia, normal QRS duration, normal WY interval, normal QT interval, no ischemic hardy es. Past Medical History Past Medical History (Chronic Problems): Chronic Problems Hypertension (Chronic) Allergies oxycodone HCl [From Percocet] Adverse Reaction (Verified 07/13/13 11:06) Nausea propoxyphene napsylate [From Darvocet-N 100] Adverse Reaction (Verified 07/13/13 11:06) Nausea Home Medications: Ambulatory Orders Medication Instructions Recorded Aspirin E.C. [Ecotr in] 81 mg PO DAILY@0800 07/03/13 Cholecalciferol (Vitamin D3) 1,000 unit PO DAILY 07/03/13 [Vitamin D3] Hydrochlorothiazide 25 mg PO DAILY 07/03/13 Propranolol HCl [Inderal LA (Beta 80 mg PO SHERRI LY 07/03/13 Enrike)] Lactobacillus Combination No.4 1 each PO BID 07/13/13 [Probiotic] Docusate Sodium [Colace] 100 mg PO BID PRN PRN #60 capsule 01/04/14 Hydrocodone Bitart/Apap 5-325 1 tabl et PO Q4H PRN PRN #30 tablet 01/04/14 [[place] 5/325] Surgical History: appendectomy, cholecystectomy, - - Hysterectomy Psychiatric History: No pertinent psych hx RN TELEHEALTH History: No pertinent RN TELEHEALTH his tory Lives: Spouse/ Significant Other Smoking Status: Never smoker Alcohol: Rare Drugs: None - *Family History Maternal History Items: No pertinent history Paternal History Items: No pe rtinent history Review of Systems Constitutional: Denies: Anorexia, Chills, Fever Eyes: Denies: Blurred vision, Double vision HEENT: Denies: Ear Pain, Eye Pain, Sore Throat, Visual Changes Cardiov ascular: Denies: Chest Pain, Chest Pressure, Chest Tightness, Edema, Light Headedness, Palpitations, Paroxysmal Noc. Dyspnea, Syncope Respiratory: Denies: Cough, Pleuritic Pain, Shortness of Breath, S putum production, Wheezing Gastrointestinal: Reports: Abdominal Pain. Denies: Constipation, Diarrhea, Hematochezia, Nausea, Vomiting Genitourinary: Denies: Dysuria, Frequency, Hematuria Musculoskel etal: Denies: Arm Pain, Hand Pain, Joint Pain Skin: Reports: Dryness. Denies: Rash Neurological: Denies: Balance problems, Blurred vision, Double vision, Change in Speech, Slurred speech, Confusion, F ocal weakness, Headaches, Incoordination, Seizures Psychiatric: Denies: Anxiety, Depression Endocrine: Denies: Change in Body Habitus, Polydipsia - Physical Exam General: Alert, Oriented x3, [place] rative HEENT: Atraumatic, PERRLA, EOMI Oral: Moist Mucosa, No Gingival or Mucosal Lesions/ Ulcerations Neck: Supple, No JVD, Thyroid Normal Size and Texture Lungs: Clear to auscultation, Normal air movement, No rhonchi, No wheeze, No rales, Diminished Cardiovascular: Regular rate, Normal S2, No murmurs Abdomen: Bowel Sounds Present, Soft, Non Tender, Non-Distended, No Hepato- splenomegaly Extr emities: No clubbing, No cyanosis, No edema Neurological: Neuro grossly intact Psych/Mental Status: Normal Affect Vital Signs Temp Pulse Resp BP Pulse Ox 96.5 F 53 16 142/84 96 01/04/14 12:15 01/04/14 12:15 01/04/14 12:15 01/04/14 12:15 01/04/14 12:15 Oxygen Flow Rate 2 Oxygen Delivery Method Room Air Weight: 238 lb Body Mass Index (BMI) 38.4 Intake and Output for Last 24 Hours 01/02/14 01/03/14 01/04/14 23:59 23:59 23:59 Intake Total 2500 Output Total 60 Balance 2440 Assessment/Plan Active and Suspected Problems Bradycardia (Acute) Status post vaginal hyste rectomy (Acute) This is a 63 years old female patient admitted for elective vaginal hysterectomy and her post operative course complicated by bradycardia and I've asked her to see her in consultatio n. #1 postoperative bradycardia: Probably secondary to anesthetic medications including neuromuscular blockers and also because of demerol which can cause significant bradycardia. Also, she is on pr opranolol which is likely contributing to bradycardia. She received robinul in the recovery room and her heart rate still low. Plan: Cardiac monitoring, serial cardiac enzymes, glucagon 5 mg IV x1 fo r possible beta enrike overdose, discontinue propranolol, discontinue demerol, start IV diluadid for pain control, TSH, repeat EKG in the morning. #2 status post vaginal hysterectomy: ObGyn is manag ing. #3 hypertension: Blood pressure stable, she is on hydrochlorothiazide, I will hold propranolol, start IV hydralazine when necessary. #4 DVT prophylaxis: SCDs. 01/04/14 1245 <Electron ically signed by Juancho Foy MD> Date Juancho Foy MD CC: Kelly Hannah MD Signed 04-Jan-2014 Discharge Instruction Result: Comments: See Note; NOTES: [facility] Medical Records Department [address] [place] [address] Instructions for Home/Discharge Instructions 01/04/14 0731 MR#: [id number] Acc t: [id number] Name: DIANA ESCUDERO OLGA Rep #: [id number] : 1950 63 From: Anatoly Diego MD PCP: Kelly Hannah MD Status: REG [facility] Discharge Diet: No Restrictions Discharge Activity: Return to Normal Activity, May Not Drive - while taking narcotic pain medications., May Shower May resume sexual activity in: 6-8 weeks Call your doctor if your incision/area has: Continuous Slow Oozing, Liu dden Increased Bleeding, Increased Pain/ Swelling, Increased Redness, Foul Smelling Discharge Call your doctor if you observe: Fever of 101 or Higher, Inability to urinate, Inability to have a bowel movement, Using more than one pad per hour Allergies/Adverse Reactions: Allergies oxycodone HCl [From Percocet] Adverse Reaction (Verified 07/13/13 11:06) Nausea propoxyphene napsylate [From Darv ocet-N 100] Adverse Reaction (Verified 07/13/13 11:06) Nausea Medications to take at Discharge Aspirin E.C. [Ecotrin] 81 mg PO DAILY@0800 Cholecalciferol (Vitamin D3) [Vitamin D3] 1,000 unit PO D AILY Hydrochlorothiazide 25 mg PO DAILY Propranolol HCl [Inderal LA (Beta [place]rike)] 80 mg PO DAILY Lactobacillus Combination No.4 [Probiotic] 1 each PO BID Docusate Sodium [Colace] 100 mg PO BID PRN PRN #60 capsule Hydrocodone Bitart/Apap 5-325 [[place] 5/325] 1 tablet PO Q4H PRN PRN #30 tablet Please Follow Up With: Anatoly Diego When: 2-3 weeks Proposed Discharge Date: 01/05/14 01/04/14 0735 <Electronically signed by Anatoly Diego MD> Date Anatoly Diego MD CC: Kelly Hannah MD 10-Oct-2013 EKG ([id number]) Comments: see scanned document of test done to see results reviewed today with patient Result: [MEASUREMENTS ANALYSIS] Date of Test: 10/10/2013 08:20:27; Heart Rate: 64; WY Interval: 160; QRS: 90; QT Interval: 394; Corrected QT Interval (QTc): 401; P [place]: 50; QRS [place]: 5; T [place]: 14; Blood Pressure: 122/78 [ECG DIAGNOSTIC STATEMENTS] Date of Test: 10/10/2013 08:20:27; Summary: 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 ABNORMAL; ADDENDA: (10/10/2013 08:27 AM) no change from old ekg. no acute change. Immunization Name Dates Details Influenza (3 years and up) on: 21-May-2006 Family History Unknown Family Member Name Dates Details Brother 1 Comments: Heart disease, depression Status: Active Daughter 1 Status: Active Father Comments: emphysema, heart disease age 81 Status: Active Maternal Grandfather Comments: lung cancer Status: Active Maternal Grandmother Comments: heart disease started in 50's, dementia Status: Active Mother Comments: Tumor on Ovary-?cancer later in life. 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 Status: Active Living Situation: Lives with domestic partner. Comments: , Rastafarian Status: Active No Caffeine Use Status: Active No Drug Use Status: Active Non Smoker/No Tobacco Use Status: Active Tobacco Use: Never smoker. Status: Active Smoking Status Name Dates Details Never smoker Vital Signs Date Test Result Details :37 Temperature 97.6 f Comments: Method: Temporal Pulse 76 /min Comments: Pattern: Regular Respiration Rate 20 /min Comments: Pattern: Unlabored O2 SAT 98 % Comments: Room air BP Systolic 126 mm[Hg] Comments: Patient Position: Sitting; Cuff Location: Left Arm; Cuff Size: Large BP Diastolic 80 mm[Hg] Comments: Patient Position: Sitting; Cuff Location: Left Arm; Cuff Size: Large Weight 229 lb Height 65 in Body Mass Index Calculated 38.11 kg/m2 Body Surface Area Calculated 2.1 m2 :28 Weight 233 lb Height 65 in Body Mass Index Calculated 38.77 kg/m2 Body Surface Area Calculated 2.11 m2 :15 Temperature 97.9 f Comments: Method: Temporal Pulse 64 /min Comments: Pattern: Regular Respiration Rate 20 /min Comments: Pattern: Unlabored O2 SAT 98 % Comments: Room air BP Systolic 124 mm[Hg] Comments: Patient Position: Sitting; Cuff Location: Left Arm; Cuff Size: Large BP Diastolic 80 mm[Hg] Comments: Patient Position: Sitting; Cuff Location: Left Arm; Cuff Size: Large Weight 235 lb Height 65 in Body Mass Index Calculated 39.11 kg/m2 Body Surface Area Calculated 2.12 m2 :48 Temperature 97.2 f Comments: Method: Temporal Pulse 68 /min Comments: Pattern: Regular Respiration Rate 20 /min Comments: Pattern: Unlabored O2 SAT 99 % Comments: Room air BP Systolic 126 mm[Hg] Comments: Patient Position: Sitting; Cuff Location: Left Arm; Cuff Size: Large BP Diastolic 84 mm[Hg] Comments: Patient Position: Sitting; Cuff Location: Left Arm; Cuff Size: Large Weight 240 lb Height 65 in Body Mass Index Calculated 39.94 kg/m2 Body Surface Area Calculated 2.14 m2 :58 Comments: home Temperature 97.6 f Comments: Method: Oral Pulse 70 /min Comments: Pattern: Regular Respiration Rate 16 /min O2 SAT 98 % Comments: Room air BP Systolic 120 mm[Hg] Comments: Patient Position: Sitting BP Diastolic 80 mm[Hg] Comments: Patient Position: Sitting Weight 235 lb :25 Temperature 97.9 f Comments: Method: Temporal Pulse 74 /min Comments: Pattern: Regular Respiration Rate 20 /min Comments: Pattern: Unlabored O2 SAT 97 % Comments: Room air BP Systolic 120 mm[Hg] Comments: Patient Position: Sitting; Cuff Location: Left Arm; Cuff Size: Large BP Diastolic 80 mm[Hg] Comments: Patient Position: Sitting; Cuff Location: Left Arm; Cuff Size: Large Weight 237 lb Height 65 in Body Mass Index Calculated 39.44 kg/m2 Body Surface Area Calculated 2.13 m2 :06 Temperature 97.6 f Comments: Method: Temporal Pulse 64 /min Comments: Pattern: Regular Respiration Rate 20 /min Comments: Pattern: Unlabored O2 SAT 97 % Comments: Room air BP Systolic 124 mm[Hg] Comments: Patient Position: Sitting; Cuff Location: Left Arm; Cuff Size: Large BP Diastolic 80 mm[Hg] Comments: Patient Position: Sitting; Cuff Location: Left Arm; Cuff Size: Large Weight 223 lb Height 65 in Body Mass Index Calculated 37.11 kg/m2 Body Surface Area Calculated 2.07 m2 :12 Temperature 97.6 f Comments: Method: Temporal Pulse 74 /min Comments: Pattern: Regular Respiration Rate 20 /min Comments: Pattern: Unlabored O2 SAT 98 % Comments: Room air BP Systolic 124 mm[Hg] Comments: Patient Position: Sitting; Cuff Location: Left Arm; Cuff Size: Large BP Diastolic 80 mm[Hg] Comments: Patient Position: Sitting; Cuff Location: Left Arm; Cuff Size: Large Weight 232 lb Height 65 in Body Mass Index Calculated 38.61 kg/m2 Body Surface Area Calculated 2.11 m2 :19 Temperature 97.6 f Comments: Method: Temporal Pulse 78 /min Comments: Pattern: Regular Respiration Rate 20 /min Comments: Pattern: Unlabored O2 SAT 97 % Comments: Room air BP Systolic 160 mm[Hg] Comments: Patient Position: Sitting; Cuff Location: Left Arm; Cuff Size: Standard BP Diastolic 90 mm[Hg] Comments: Patient Position: Sitting; Cuff Location: Left Arm; Cuff Size: Standard Weight 232 lb Height 65 in Body Mass Index Calculated 38.61 kg/m2 Body Surface Area Calculated 2.11 m2 :00 Temperature 97.6 f Comments: Method: Temporal Pulse 74 /min Comments: Pattern: Regular Respiration Rate 20 /min Comments: Pattern: Unlabored O2 SAT 95 % Comments: Room air BP Systolic 122 mm[Hg] Comments: Patient Position: Sitting; Cuff Location: Left Arm; Cuff Size: Large BP Diastolic 80 mm[Hg] Comments: Patient Position: Sitting; Cuff Location: Left Arm; Cuff Size: Large Weight 232 lb Height 65 in Body Mass Index Calculated 38.61 kg/m2 Body Surface Area Calculated 2.11 m2 :07 Temperature 97.6 f Comments: Method: Temporal Pulse 74 /min Comments: Pattern: Regular Respiration Rate 20 /min Comments: Pattern: Unlabored O2 SAT 97 % Comments: Room air BP Systolic 122 mm[Hg] Comments: Patient Position: Sitting; Cuff Location: Left Arm; Cuff Size: Standard BP Diastolic 78 mm[Hg] Comments: Patient Position: Sitting; Cuff Location: Left Arm; Cuff Size: Standard Weight 237 lb Height 65 in Body Mass Index Calculated 39.44 kg/m2 Body Surface Area Calculated 2.13 m2 :02 Temperature 97.4 f Comments: Method: Temporal Pulse 74 /min Comments: Pattern: Regular Respiration Rate 20 /min Comments: Pattern: Unlabored O2 SAT 97 % Comments: Room air BP Systolic 120 mm[Hg] Comments: Patient Position: Sitting; Cuff Location: Left Arm; Cuff Size: Large BP Diastolic 78 mm[Hg] Comments: Patient Position: Sitting; Cuff Location: Left Arm; Cuff Size: Large Weight 235 lb Height 65 in Body Mass Index Calculated 39.11 kg/m2 Body Surface Area Calculated 2.12 m2 :12 Temperature 98.1 f Pulse 65 /min Comments: Pattern: Regular Respiration Rate 16 /min Comments: Pattern: Unlabored O2 SAT 95 % Comments: Room air BP Systolic 124 mm[Hg] Comments: Patient Position: Sitting; Cuff Location: Left Arm; Cuff Size: Standard BP Diastolic 82 mm[Hg] Comments: Patient Position: Sitting; Cuff Location: Left Arm; Cuff Size: Standard Weight 237.375 lb Height 65 in Body Mass Index Calculated 39.5 kg/m2 Body Surface Area Calculated 2.13 m2 :54 Temperature 97.6 f Comments: Method: Temporal Pulse 64 /min Comments: Pattern: Regular Respiration Rate 20 /min Comments: Pattern: Unlabored O2 SAT 97 % Comments: Room air BP Systolic 124 mm[Hg] Comments: Patient Position: Sitting; Cuff Location: Left Arm; Cuff Size: Large BP Diastolic 80 mm[Hg] Comments: Patient Position: Sitting; Cuff Location: Left Arm; Cuff Size: Large Weight 238 lb Height 65 in Body Mass Index Calculated 39.6 kg/m2 Body Surface Area Calculated 2.13 m2 :58 Temperature 97.6 f Comments: Method: Temporal Pulse 68 /min Comments: Pattern: Regular Respiration Rate 20 /min Comments: Pattern: Unlabored O2 SAT 97 % Comments: Room air BP Systolic 160 mm[Hg] Comments: Patient Position: Sitting; Cuff Location: Left Arm; Cuff Size: Large BP Diastolic 90 mm[Hg] Comments: Patient Position: Sitting; Cuff Location: Left Arm; Cuff Size: Large Weight 238 lb Height 65 in Body Mass Index Calculated 39.6 kg/m2 Body Surface Area Calculated 2.13 m2 :54 Temperature 97.2 f Comments: Method: Temporal Pulse 80 /min Comments: Pattern: Regular Respiration Rate 20 /min Comments: Pattern: Unlabored O2 SAT 97 % Comments: Room air BP Systolic 110 mm[Hg] Comments: Patient Position: Sitting; Cuff Location: Left Arm; Cuff Size: Large BP Diastolic 70 mm[Hg] Comments: Patient Position: Sitting; Cuff Location: Left Arm; Cuff Size: Large Weight 244 lb Height 65 in Body Mass Index Calculated 40.6 kg/m2 Body Surface Area Calculated 2.15 m2 :55 Temperature 97.6 f Comments: Method: Temporal Pulse 64 /min Comments: Pattern: Regular Respiration Rate 20 /min Comments: Pattern: Unlabored O2 SAT 98 % Comments: Room air BP Systolic 124 mm[Hg] Comments: Patient Position: Sitting; Cuff Location: Left Arm; Cuff Size: Large BP Diastolic 84 mm[Hg] Comments: Patient Position: Sitting; Cuff Location: Left Arm; Cuff Size: Large Weight 228 lb Height 65 in Body Mass Index Calculated 37.94 kg/m2 Body Surface Area Calculated 2.09 m2 :18 Temperature 97.6 f Comments: Method: Temporal Pulse 74 /min Comments: Pattern: Regular Respiration Rate 20 /min Comments: Pattern: Unlabored O2 SAT 97 % Comments: Room air BP Systolic 120 mm[Hg] Comments: Patient Position: Sitting; Cuff Location: Left Arm; Cuff Size: Large BP Diastolic 80 mm[Hg] Comments: Patient Position: Sitting; Cuff Location: Left Arm; Cuff Size: Large Weight 237 lb Height 66 in Body Mass Index Calculated 38.25 kg/m2 Body Surface Area Calculated 2.15 m2 :48 Temperature 97.6 f Comments: Method: Temporal Pulse 74 /min Comments: Pattern: Regular Respiration Rate 20 /min Comments: Pattern: Unlabored O2 SAT 98 % Comments: Room air BP Systolic 120 mm[Hg] Comments: Patient Position: Sitting; Cuff Location: Left Arm; Cuff Size: Large BP Diastolic 80 mm[Hg] Comments: Patient Position: Sitting; Cuff Location: Left Arm; Cuff Size: Large Weight 233 lb Height 66 in Body Mass Index Calculated 37.61 kg/m2 Body Surface Area Calculated 2.13 m2 :23 Temperature 98.2 f Pulse 70 /min Comments: Pattern: Regular Respiration Rate 18 /min Comments: Pattern: Unlabored O2 SAT 98 % Comments: Room air BP Systolic 120 mm[Hg] Comments: Patient Position: Sitting; Cuff Location: Left Arm; Cuff Size: Large BP Diastolic 80 mm[Hg] Comments: Patient Position: Sitting; Cuff Location: Left Arm; Cuff Size: Large Weight 233 lb Height 66 in Body Mass Index Calculated 37.61 kg/m2 Body Surface Area Calculated 2.13 m2 :44 Temperature 98 f Pulse 68 /min Comments: Pattern: Regular Respiration Rate 15 /min Comments: Pattern: Unlabored O2 SAT 97 % Comments: Room air BP Systolic 140 mm[Hg] Comments: Patient Position: Sitting; Cuff Location: Left Arm; Cuff Size: Standard BP Diastolic 82 mm[Hg] Comments: Patient Position: Sitting; Cuff Location: Left Arm; Cuff Size: Standard Weight 234 lb Height 66 in Body Mass Index Calculated 37.77 kg/m2 Body Surface Area Calculated 2.14 m2 :02 Temperature 97.6 f Comments: Method: Temporal Pulse 64 /min Comments: Pattern: Regular Respiration Rate 18 /min Comments: Pattern: Unlabored O2 SAT 97 % Comments: Room air BP Systolic 130 mm[Hg] Comments: Patient Position: Sitting; Cuff Location: Left Arm; Cuff Size: Large BP Diastolic 90 mm[Hg] Comments: Patient Position: Sitting; Cuff Location: Left Arm; Cuff Size: Large Weight 232 lb Height 66 in Body Mass Index Calculated 37.45 kg/m2 Body Surface Area Calculated 2.13 m2 :58 Temperature 97.6 f Comments: Method: Temporal Pulse 74 /min Comments: Pattern: Regular Respiration Rate 20 /min Comments: Pattern: Unlabored O2 SAT 97 % Comments: Room air BP Systolic 126 mm[Hg] Comments: Patient Position: Sitting; Cuff Location: Left Arm; Cuff Size: Large BP Diastolic 90 mm[Hg] Comments: Patient Position: Sitting; Cuff Location: Left Arm; Cuff Size: Large Weight 234 lb Height 66 in Body Mass Index Calculated 37.77 kg/m2 Body Surface Area Calculated 2.14 m2 :08 Temperature 97.6 f Comments: Method: Temporal Pulse 74 /min Comments: Pattern: Regular Respiration Rate 20 /min Comments: Pattern: Unlabored O2 SAT 98 % Comments: Room air BP Systolic 120 mm[Hg] Comments: Patient Position: Sitting; Cuff Location: Left Arm; Cuff Size: Large BP Diastolic 78 mm[Hg] Comments: Patient Position: Sitting; Cuff Location: Left Arm; Cuff Size: Large Weight 237 lb Height 66 in Body Mass Index Calculated 38.25 kg/m2 Body Surface Area Calculated 2.15 m2 :46 Pulse 93 /min Comments: Pattern: Regular Respiration Rate 16 /min Comments: Pattern: Unlabored O2 SAT 97 % Comments: Room air BP Systolic 115 mm[Hg] Comments: Patient Position: Sitting; Cuff Location: Left Arm; Cuff Size: Standard BP Diastolic 70 mm[Hg] Comments: Patient Position: Sitting; Cuff Location: Left Arm; Cuff Size: Standard Weight 219 lb Height 66 in Body Mass Index Calculated 35.35 kg/m2 Body Surface Area Calculated 2.08 m2 :09 Temperature 97.6 f Comments: Method: Temporal Pulse 70 /min Comments: Pattern: Regular Respiration Rate 20 /min Comments: Pattern: Unlabored O2 SAT 97 % Comments: Room air BP Systolic 120 mm[Hg] Comments: Patient Position: Sitting; Cuff Location: Left Arm; Cuff Size: Large BP Diastolic 78 mm[Hg] Comments: Patient Position: Sitting; Cuff Location: Left Arm; Cuff Size: Large Weight 217 lb Height 66 in Body Mass Index Calculated 35.02 kg/m2 Body Surface Area Calculated 2.07 m2 :31 Temperature 97.9 f Comments: Method: Temporal Pulse 74 /min Comments: Pattern: Regular Respiration Rate 18 /min Comments: Pattern: Unlabored O2 SAT 98 % Comments: Room air BP Systolic 114 mm[Hg] Comments: Patient Position: Sitting; Cuff Location: Left Arm; Cuff Size: Large BP Diastolic 74 mm[Hg] Comments: Patient Position: Sitting; Cuff Location: Left Arm; Cuff Size: Large Weight 216 lb Height 66 in Body Mass Index Calculated 34.86 kg/m2 Body Surface Area Calculated 2.07 m2 :52 Temperature 97.6 f Comments: Method: Temporal Pulse 74 /min Comments: Pattern: Regular Respiration Rate 18 /min Comments: Pattern: Unlabored O2 SAT 98 % Comments: Room air BP Systolic 118 mm[Hg] Comments: Patient Position: Sitting; Cuff Location: Left Arm; Cuff Size: Standard BP Diastolic 76 mm[Hg] Comments: Patient Position: Sitting; Cuff Location: Left Arm; Cuff Size: Standard Weight 216 lb Height 66 in Body Mass Index Calculated 34.86 kg/m2 Body Surface Area Calculated 2.07 m2 :23 Temperature 97.6 f Comments: Method: Temporal Pulse 74 /min Comments: Pattern: Regular Respiration Rate 18 /min Comments: Pattern: Unlabored O2 SAT 98 % Comments: Room air BP Systolic 116 mm[Hg] Comments: Patient Position: Sitting; Cuff Location: Left Arm; Cuff Size: Standard BP Diastolic 76 mm[Hg] Comments: Patient Position: Sitting; Cuff Location: Left Arm; Cuff Size: Standard Weight 219 lb Height 66 in Body Mass Index Calculated 35.35 kg/m2 Body Surface Area Calculated 2.08 m2 :25 Temperature 97.6 f Comments: Method: Temporal Pulse 68 /min Comments: Pattern: Regular Respiration Rate 16 /min Comments: Pattern: Unlabored O2 SAT 98 % Comments: Room air BP Systolic 124 mm[Hg] Comments: Patient Position: Sitting; Cuff Location: Left Arm; Cuff Size: Standard BP Diastolic 76 mm[Hg] Comments: Patient Position: Sitting; Cuff Location: Left Arm; Cuff Size: Standard Weight 220.5 lb Height 66 in Body Mass Index Calculated 35.59 kg/m2 Body Surface Area Calculated 2.08 m2 :34 Pulse 70 /min Comments: Pattern: Regular Respiration Rate 16 /min Comments: Pattern: Unlabored O2 SAT 98 % Comments: Room air BP Systolic 115 mm[Hg] Comments: Patient Position: Sitting; Cuff Location: Left Arm; Cuff Size: Standard BP Diastolic 78 mm[Hg] Comments: Patient Position: Sitting; Cuff Location: Left Arm; Cuff Size: Standard Weight 217.5 lb Height 66 in Body Mass Index Calculated 35.11 kg/m2 Body Surface Area Calculated 2.07 m2 :41 Temperature 97.9 f Comments: Method: Temporal Pulse 78 /min Comments: Pattern: Regular Respiration Rate 18 /min Comments: Pattern: Unlabored O2 SAT 97 % Comments: Room air BP Systolic 116 mm[Hg] Comments: Patient Position: Sitting; Cuff Location: Left Arm; Cuff Size: Standard BP Diastolic 76 mm[Hg] Comments: Patient Position: Sitting; Cuff Location: Left Arm; Cuff Size: Standard Weight 219 lb Height 66 in Body Mass Index Calculated 35.35 kg/m2 Body Surface Area Calculated 2.08 m2 :04 Temperature 97.8 f Comments: Method: Temporal Pulse 70 /min Comments: Pattern: Regular Respiration Rate 20 /min Comments: Pattern: Unlabored O2 SAT 98 % Comments: Room air BP Systolic 118 mm[Hg] Comments: Patient Position: Sitting; Cuff Location: Left Arm; Cuff Size: Standard BP Diastolic 74 mm[Hg] Comments: Patient Position: Sitting; Cuff Location: Left Arm; Cuff Size: Standard Weight 217 lb Height 66 in Body Mass Index Calculated 35.02 kg/m2 Body Surface Area Calculated 2.07 m2 :24 Temperature 97.9 f Comments: Method: Tympanic Pulse 77 /min Comments: Pattern: Regular Respiration Rate 18 /min Comments: Pattern: Unlabored O2 SAT 99 % Comments: Room air BP Systolic 112 mm[Hg] Comments: Patient Position: Sitting; Cuff Location: Left Arm; Cuff Size: Standard BP Diastolic 68 mm[Hg] Comments: Patient Position: Sitting; Cuff Location: Left Arm; Cuff Size: Standard Weight 218.1875 lb Height 66 in Body Mass Index Calculated 35.22 kg/m2 Body Surface Area Calculated 2.08 m2 :19 Pulse 73 /min Comments: Pattern: Regular Respiration Rate 18 /min Comments: Pattern: Unlabored O2 SAT 98 % Comments: Room air BP Systolic 128 mm[Hg] Comments: Patient Position: Sitting; Cuff Location: Left Arm; Cuff Size: Large BP Diastolic 78 mm[Hg] Comments: Patient Position: Sitting; Cuff Location: Left Arm; Cuff Size: Large Weight 221 lb Height 66 in Body Mass Index Calculated 35.67 kg/m2 Body Surface Area Calculated 2.09 m2 :08 Temperature 97.6 f Comments: Method: Temporal Pulse 72 /min Comments: Pattern: Regular Respiration Rate 20 /min Comments: Pattern: Unlabored O2 SAT 98 % Comments: Room air BP Systolic 116 mm[Hg] Comments: Patient Position: Sitting; Cuff Location: Left Arm; Cuff Size: Standard BP Diastolic 68 mm[Hg] Comments: Patient Position: Sitting; Cuff Location: Left Arm; Cuff Size: Standard Weight 221 lb Height 66 in Body Mass Index Calculated 35.67 kg/m2 Body Surface Area Calculated 2.09 m2 :16 Temperature 98.2 f Comments: Method: Oral Pulse 78 /min Comments: Pattern: Regular Respiration Rate 18 /min Comments: Pattern: Unlabored O2 SAT 98 % Comments: Room air BP Systolic 112 mm[Hg] Comments: Patient Position: Sitting; Cuff Location: Left Arm; Cuff Size: Standard BP Diastolic 64 mm[Hg] Comments: Patient Position: Sitting; Cuff Location: Left Arm; Cuff Size: Standard Weight 227 lb Height 66 in Body Mass Index Calculated 36.64 kg/m2 Body Surface Area Calculated 2.11 m2 :03 Temperature 97.6 f Comments: Method: Temporal Pulse 70 /min Comments: Pattern: Regular Respiration Rate 20 /min Comments: Pattern: Unlabored BP Systolic 120 mm[Hg] Comments: Patient Position: Sitting; Cuff Location: Left Arm; Cuff Size: Large BP Diastolic 78 mm[Hg] Comments: Patient Position: Sitting; Cuff Location: Left Arm; Cuff Size: Large Weight 230 lb Height 66 in Body Mass Index Calculated 37.12 kg/m2 Body Surface Area Calculated 2.12 m2 :18 Temperature 96.4 f Comments: Method: Oral Pulse 73 /min Comments: Pattern: Regular Respiration Rate 16 /min O2 SAT 97 % Comments: Room air BP Systolic 120 mm[Hg] Comments: Patient Position: Sitting BP Diastolic 80 mm[Hg] Comments: Patient Position: Sitting Weight 244 lb Height 66 in Body Mass Index Calculated 39.38 kg/m2 Body Surface Area Calculated 2.18 m2 :07 Temperature 97.2 f Comments: Method: Temporal Pulse 76 /min Comments: Pattern: Regular Respiration Rate 16 /min Comments: Pattern: Unlabored O2 SAT 97 % Comments: Room air BP Systolic 122 mm[Hg] Comments: Patient Position: Sitting; Cuff Location: Left Arm; Cuff Size: Standard BP Diastolic 78 mm[Hg] Comments: Patient Position: Sitting; Cuff Location: Left Arm; Cuff Size: Standard Weight 241 lb Height 66 in Body Mass Index Calculated 38.9 kg/m2 Body Surface Area Calculated 2.17 m2 :51 Comments: sittin/74 P 84standin/74 P 105 Temperature 97.8 f Comments: Method: Oral Pulse 80 /min Comments: Pattern: Regular O2 SAT 96 % Comments: Room air BP Systolic 110 mm[Hg] Comments: Patient Position: Sitting; Cuff Location: Left Arm; Cuff Size: Standard BP Diastolic 72 mm[Hg] Comments: Patient Position: Sitting; Cuff Location: Left Arm; Cuff Size: Standard Weight 234 lb Height 66 in Body Mass Index Calculated 37.77 kg/m2 Body Surface Area Calculated 2.14 m2 :39 Temperature 97.9 f Comments: Method: Oral Pulse 61 /min Comments: Pattern: Regular Respiration Rate 16 /min Comments: Pattern: Unlabored O2 SAT 97 % Comments: Room air BP Systolic 122 mm[Hg] Comments: Patient Position: Sitting; Cuff Location: Left Arm; Cuff Size: Standard BP Diastolic 72 mm[Hg] Comments: Patient Position: Sitting; Cuff Location: Left Arm; Cuff Size: Standard Weight 226 lb Height 66 in Body Mass Index Calculated 36.48 kg/m2 Body Surface Area Calculated 2.11 m2 :11 Temperature 97.6 f Comments: Method: Oral Pulse 70 /min Comments: Pattern: Regular Respiration Rate 18 /min Comments: Pattern: Unlabored BP Systolic 120 mm[Hg] Comments: Patient Position: Sitting; Cuff Location: Left Arm; Cuff Size: Standard BP Diastolic 80 mm[Hg] Comments: Patient Position: Sitting; Cuff Location: Left Arm; Cuff Size: Standard Weight 226 lb Height 66 in Body Mass Index Calculated 36.48 kg/m2 Body Surface Area Calculated 2.11 m2 :02 Temperature 97.8 f Comments: Method: Temporal Pulse 78 /min Comments: Pattern: Regular Respiration Rate 16 /min Comments: Pattern: Unlabored O2 SAT 95 % Comments: Room air BP Systolic 124 mm[Hg] Comments: Patient Position: Sitting; Cuff Location: Left Arm; Cuff Size: Standard BP Diastolic 76 mm[Hg] Comments: Patient Position: Sitting; Cuff Location: Left Arm; Cuff Size: Standard Weight 231 lb Height 66 in Body Mass Index Calculated 37.28 kg/m2 Body Surface Area Calculated 2.13 m2 :43 Temperature 98.2 f Comments: Method: Temporal Pulse 702 /min Comments: Pattern: Regular Respiration Rate 16 /min Comments: Pattern: Unlabored O2 SAT 96 % Comments: Room air BP Systolic 124 mm[Hg] Comments: Patient Position: Sitting; Cuff Location: Left Arm; Cuff Size: Standard BP Diastolic 72 mm[Hg] Comments: Patient Position: Sitting; Cuff Location: Left Arm; Cuff Size: Standard Weight 232.5 lb Height 66 in Body Mass Index Calculated 37.53 kg/m2 Body Surface Area Calculated 2.13 m2 :17 Pulse 72 /min Comments: Pattern: Regular BP Systolic 126 mm[Hg] Comments: Patient Position: Sitting; Cuff Location: Left Arm; Cuff Size: Standard BP Diastolic 72 mm[Hg] Comments: Patient Position: Sitting; Cuff Location: Left Arm; Cuff Size: Standard Weight 233.5 lb Height 66 in Body Mass Index Calculated 37.69 kg/m2 Body Surface Area Calculated 2.14 m2 :59 BP Systolic 132 mm[Hg] Comments: Patient Position: Sitting; Cuff Location: Left Arm; Cuff Size: Standard BP Diastolic 82 mm[Hg] Comments: Patient Position: Sitting; Cuff Location: Left Arm; Cuff Size: Standard :23 Comments: has a hectic day planned Temperature 97.6 f Comments: Method: Oral Pulse 74 /min Comments: Pattern: Regular Respiration Rate 18 /min Comments: Pattern: Unlabored BP Systolic 146 mm[Hg] Comments: Patient Position: Sitting; Cuff Location: Left Arm; Cuff Size: Large BP Diastolic 94 mm[Hg] Comments: Patient Position: Sitting; Cuff Location: Left Arm; Cuff Size: Large Weight 243 lb Height 66 in Body Mass Index Calculated 39.22 kg/m2 Body Surface Area Calculated 2.17 m2 :39 Temperature 98.8 f Comments: Method: Oral Pulse 60 /min Comments: Pattern: Regular Respiration Rate 16 /min O2 SAT 97 % Comments: Room air BP Systolic 120 mm[Hg] Comments: Patient Position: Sitting; Cuff Location: Left Arm; Cuff Size: Standard BP Diastolic 80 mm[Hg] Comments: Patient Position: Sitting; Cuff Location: Left Arm; Cuff Size: Standard Weight 247.7 lb Height 66 in Body Mass Index Calculated 39.98 kg/m2 Body Surface Area Calculated 2.19 m2 :21 Temperature 97.8 f Comments: Method: Oral Pulse 72 /min Comments: Pattern: Regular Respiration Rate 16 /min Comments: Pattern: Unlabored BP Systolic 122 mm[Hg] Comments: Patient Position: Sitting; Cuff Location: Left Arm; Cuff Size: Standard BP Diastolic 74 mm[Hg] Comments: Patient Position: Sitting; Cuff Location: Left Arm; Cuff Size: Standard Weight 247.7 lb Height 66 in Body Mass Index Calculated 39.98 kg/m2 Body Surface Area Calculated 2.19 m2 :15 Temperature 97.6 f Comments: Method: Oral Pulse 64 /min Comments: Pattern: Regular Respiration Rate 20 /min Comments: Pattern: Unlabored BP Systolic 122 mm[Hg] Comments: Patient Position: Sitting; Cuff Location: Left Arm; Cuff Size: Large BP Diastolic 80 mm[Hg] Comments: Patient Position: Sitting; Cuff Location: Left Arm; Cuff Size: Large Weight 251 lb Height 66 in Body Mass Index Calculated 40.51 kg/m2 Body Surface Area Calculated 2.2 m2 :36 Temperature 98.1 f Comments: Method: Oral Pulse 64 /min Comments: Pattern: Regular Respiration Rate 18 /min Comments: Pattern: Unlabored BP Systolic 122 mm[Hg] Comments: Patient Position: Sitting; Cuff Location: Left Arm; Cuff Size: Standard BP Diastolic 78 mm[Hg] Comments: Patient Position: Sitting; Cuff Location: Left Arm; Cuff Size: Standard Weight 245 lb Height 66 in Body Mass Index Calculated 39.54 kg/m2 Body Surface Area Calculated 2.18 m2 :22 Temperature 97.6 f Comments: Method: Oral Pulse 60 /min Comments: Pattern: Regular Respiration Rate 18 /min Comments: Pattern: Unlabored BP Systolic 118 mm[Hg] Comments: Patient Position: Sitting; Cuff Location: Left Arm; Cuff Size: Standard BP Diastolic 78 mm[Hg] Comments: Patient Position: Sitting; Cuff Location: Left Arm; Cuff Size: Standard Weight 245 lb Height 66 in Body Mass Index Calculated 39.54 kg/m2 Body Surface Area Calculated 2.18 m2 :56 Temperature 98.4 f Comments: Method: Oral Pulse 60 /min Comments: Pattern: Regular Respiration Rate 16 /min Comments: Pattern: Unlabored BP Systolic 120 mm[Hg] Comments: Patient Position: Supine; Cuff Location: Left Arm; Cuff Size: Standard BP Diastolic 80 mm[Hg] Comments: Patient Position: Supine; Cuff Location: Left Arm; Cuff Size: Standard Weight 244.125 lb Height 66 in Body Mass Index Calculated 39.4 kg/m2 Body Surface Area Calculated 2.18 m2 :51 Temperature 98 f Comments: Method: Oral Pulse 68 /min Comments: Pattern: Regular Respiration Rate 18 /min Comments: Pattern: Unlabored BP Systolic 118 mm[Hg] Comments: Patient Position: Sitting; Cuff Location: Left Arm; Cuff Size: Large BP Diastolic 76 mm[Hg] Comments: Patient Position: Sitting; Cuff Location: Left Arm; Cuff Size: Large Weight 247.25 lb Height 66 in Body Mass Index Calculated 39.91 kg/m2 Body Surface Area Calculated 2.19 m2 :02 Pulse 60 /min Comments: Pattern: Regular Respiration Rate 16 /min Comments: Pattern: Unlabored BP Systolic 118 mm[Hg] Comments: Patient Position: Sitting; Cuff Location: Left Arm; Cuff Size: Standard BP Diastolic 70 mm[Hg] Comments: Patient Position: Sitting; Cuff Location: Left Arm; Cuff Size: Standard Weight 244.5 lb Height 66 in Body Mass Index Calculated 39.46 kg/m2 Body Surface Area Calculated 2.18 m2 :16 Temperature 97 f Comments: Method: Oral Pulse 80 /min Comments: Pattern: Regular Respiration Rate 18 /min Comments: Pattern: Unlabored O2 SAT 94 % Comments: Room air BP Systolic 118 mm[Hg] Comments: Patient Position: Sitting; Cuff Location: Left Arm; Cuff Size: Standard BP Diastolic 82 mm[Hg] Comments: Patient Position: Sitting; Cuff Location: Left Arm; Cuff Size: Standard Weight 239 lb Height 66 in Body Mass Index Calculated 38.58 kg/m2 Body Surface Area Calculated 2.16 m2 :51 Temperature 97.9 f Comments: Method: Oral Pulse 74 /min Comments: Pattern: Regular Respiration Rate 20 /min Comments: Pattern: Unlabored BP Systolic 130 mm[Hg] Comments: Patient Position: Sitting; Cuff Location: Left Arm; Cuff Size: Large BP Diastolic 80 mm[Hg] Comments: Patient Position: Sitting; Cuff Location: Left Arm; Cuff Size: Large Weight 239 lb Height 66 in Body Mass Index Calculated 38.58 kg/m2 Body Surface Area Calculated 2.16 m2 :05 Temperature 98 f Pulse 80 /min Comments: Pattern: Regular Respiration Rate 18 /min Comments: Pattern: Unlabored BP Systolic 140 mm[Hg] Comments: Patient Position: Sitting; Cuff Location: Left Arm; Cuff Size: Large BP Diastolic 84 mm[Hg] Comments: Patient Position: Sitting; Cuff Location: Left Arm; Cuff Size: Large Weight 240 lb :32 Pulse 70 /min Comments: Pattern: Regular Respiration Rate 18 /min Comments: Pattern: Unlabored BP Systolic 124 mm[Hg] Comments: Patient Position: Sitting; Cuff Location: Left Arm; Cuff Size: Large BP Diastolic 74 mm[Hg] Comments: Patient Position: Sitting; Cuff Location: Left Arm; Cuff Size: Large Weight 237 lb :20 Temperature 97.7 f Comments: Method: Oral Pulse 68 /min Comments: Pattern: Regular Respiration Rate 18 /min Comments: Pattern: Unlabored BP Systolic 120 mm[Hg] Comments: Patient Position: Sitting; Cuff Location: Left Arm; Cuff Size: Large BP Diastolic 62 mm[Hg] Comments: Patient Position: Sitting; Cuff Location: Left Arm; Cuff Size: Large Weight 244 lb :07 Temperature 97.2 f Comments: Method: Oral Pulse 70 /min Comments: Pattern: Regular Respiration Rate 18 /min Comments: Pattern: Unlabored BP Systolic 122 mm[Hg] Comments: Patient Position: Sitting; Cuff Location: Left Arm; Cuff Size: Standard BP Diastolic 74 mm[Hg] Comments: Patient Position: Sitting; Cuff Location: Left Arm; Cuff Size: Standard Weight 242 lb Height 66 in Body Mass Index Calculated 39.06 kg/m2 Body Surface Area Calculated 2.17 m2 :15 Temperature 97.6 f Comments: Method: Oral Pulse 64 /min Comments: Pattern: Regular Respiration Rate 18 /min Comments: Pattern: Unlabored BP Systolic 118 mm[Hg] Comments: Patient Position: Sitting; Cuff Location: Right Arm; Cuff Size: Standard BP Diastolic 76 mm[Hg] Comments: Patient Position: Sitting; Cuff Location: Right Arm; Cuff Size: Standard Weight 0 lb Height 0 in Head Circumference 0.00 cm :39 Comments: 43 in in waist and 50 in in hip Pulse 64 /min Comments: Pattern: Regular Respiration Rate 16 /min Comments: Pattern: Unlabored BP Systolic 124 mm[Hg] Comments: Patient Position: Sitting; Cuff Location: Left Arm; Cuff Size: Large BP Diastolic 86 mm[Hg] Comments: Patient Position: Sitting; Cuff Location: Left Arm; Cuff Size: Large Weight 242 lb Height 66 in Body Mass Index Calculated 39.06 kg/m2 Body Surface Area Calculated 2.17 m2 Head Circumference 0.00 cm :47 Temperature 96.7 f Comments: Method: Undefined Pulse 64 /min Comments: Pattern: Regular Respiration Rate 16 /min Comments: Pattern: Undefined BP Systolic 102 mm[Hg] Comments: Patient Position: Sitting; Cuff Location: Right Arm; Cuff Size: Large BP Diastolic 78 mm[Hg] Comments: Patient Position: Sitting; Cuff Location: Right Arm; Cuff Size: Large Weight 0 lb Height 0 in Head Circumference 0.00 cm :49 Temperature 97 f Comments: Method: Undefined Pulse 70 /min Comments: Pattern: Regular Respiration Rate 18 /min Comments: Pattern: Undefined O2 SAT 98 % Comments: Room air BP Systolic 128 mm[Hg] Comments: Patient Position: Sitting; Cuff Location: Left Arm; Cuff Size: Large BP Diastolic 98 mm[Hg] Comments: Patient Position: Sitting; Cuff Location: Left Arm; Cuff Size: Large Weight 0 lb Height 0 in Head Circumference 0.00 cm :39 Temperature 98.6 f Comments: Method: Oral Pulse 78 /min Comments: Pattern: Regular Respiration Rate 18 /min Comments: Pattern: Unlabored BP Systolic 126 mm[Hg] Comments: Patient Position: Sitting; Cuff Location: Left Arm; Cuff Size: Standard BP Diastolic 84 mm[Hg] Comments: Patient Position: Sitting; Cuff Location: Left Arm; Cuff Size: Standard Weight 0 lb Height 0 in Head Circumference 0.00 cm [id number] Temperature 97.9 f Comments: Method: Oral Pulse 70 /min Comments: Pattern: Regular Respiration Rate 18 /min Comments: Pattern: Unlabored BP Systolic 120 mm[Hg] Comments: Patient Position: Sitting; Cuff Location: Left Arm; Cuff Size: Standard BP Diastolic 80 mm[Hg] Comments: Patient Position: Sitting; Cuff Location: Left Arm; Cuff Size: Standard Weight 0 lb Height 0 in Head Circumference 0.00 cm Results Date Description Value Details [id number] Urinalysis, Office (31710) UA - LEUKOCYTE ESTERASE Negative (Normal) UA - NITRITE Negative (Normal) URINE UROBILINGN FRANKO TIMED Normal mg/dL (Normal) UA - PROTEIN Negative mg/dL (Normal) UA - PH 6 (Abnormal) UA - BLOOD Negative (Normal) UA - SPECIFIC GRAVITY 1.020 (Normal) UA - KETONES Negative mg/dL (Normal) UA - BILIRUBIN Negative (Normal) UA - GLUCOSE Negative (Normal) [id number] Urinalysis, Complete Comments: Order Date: 05/19/18Has pt arrived? YHow was Urine Obtained? [facility]EWEL [facility] TO [facility] [id number] [place], [place], [id number] MUCUS, URINE 0 SEEN {/hpf} (Normal) BACTERIA 4+ {/hpf} (Normal) SQUAM EPI 0-5 SEEN {/hpf} (Normal) Range: 5-10 RBC-UA 0-5 SEEN {/hpf} (Normal) Range: 0-5 WBC 0-5 SEEN {/hpf} (Normal) Range: 0-5 LEUK ESTERASE Negative /ul (Normal) OCCULT BLOOD-UR Negative /ul (Normal) NITRITE UR Positive (Abnormal) UROBILI Normal mg/dL (Normal) PROT DIPSTX Negative mg/dL (Normal) pH UR 6.0 (Normal) Range: 5.0 - 8.0 SP.GR. DIPSTX 1.015 (Normal) Range: 1.002-1.030 KETONE UR Negative mg/dL (Normal) BILIRUBIN URINE Negative mg/dL (Normal) GLUCOSE, UR Normal mg/dL (Normal) CLARITY Sl. Cloudy (Normal) COLOR Yellow (Normal) [id number] Basic Metabolic Profile (BMP) Comments: [facility] [id number] [place], [place], [id number] GAP 5 (Normal) Range: 5-15 CO2 29.0 mmol/L (Normal) Range: 21.0-32.0 CL 109 mmol/L (Abnormal) Range: 98-107 K 3.7 mmol/L (Normal) Range: 3.5-5.1 NA 143 mmol/L (Normal) Range: 136-145 CA 8.9 mg/dL (Normal) Range: 8.5-10.1 BUN/CRE 18.3 {RATIO} (Normal) Range: 10-20 Estimated CRCL 49.81 ml/min (Normal) EST GFR - AA 68 mL/min (Normal) Comments: GFR Calc EST GFR 56 mL/min (Abnormal) Comments: Non- GFR Calc CREAT,SERUM 1.04 mg/dL (Abnormal) Range: 0.55-1.02 Comments: The validity of the calculated GFR AND GFRAA in patients over70 years has not been determined. Clinical correlation isessential. BUN 19 mg/dL (Abnormal) Range: 7-18 GLU 102 mg/dL (Normal) Range: 74-106 Comments: Fasting Glucose result from 100 to 125 mg/dLsuggests IMPAIRED HOMEOSTASIS per A.D.A. criteria.Please note revised GLUCOSE reference range ufpttfnow14/02/2018. [id number] CBC W/Diff, Automated Comments: [facility] [id number] [place], [place], [id number] Absolute Lymph 2.03 {X10_3/ul} (Normal) Range: 0.83-4.51 Absolute Neut 3.4 {X10_3/uL} (Normal) Range: 2.0-7.7 IM GRAN % 0.000 % (Normal) Range: 0.0-0.9 Comments: IG% - Immature Granulocytes (promyelocytes, myelocytes andmetamyelocytes) > 1% indicates that a LEFT SHIFT is Present. BASO% 0.3 % (Normal) Range: 0-1 EO% 3.1 % (Normal) Range: 0-5 MONO% 8.4 % (Normal) Range: 0-10 LY% 32.8 % (Normal) Range: 19-41 NEUT% 55.4 % (Normal) Range: 47-70 MPV 12.1 fL (Abnormal) Range: 6.2-12.0 PLT 134 K/mm3 (Abnormal) Range: 150-450 RDW SD 47.3 fL (Abnormal) Range: 35.1-43.9 RDW CV 13.3 % (Normal) Range: 11.6-14.6 MCHC 32.4 {g/gl} (Normal) Range: 32-36 MCH 31.3 pg (Normal) Range: 27.0-32.0 MCV 96.6 fL (Normal) Range: 81-99 HCT 43.2 % (Normal) Range: 37-47 HGB 14.0 g/dL (Normal) Range: 12.0-15.0 RBC 4.47 {M/mm3} (Normal) Range: 4.2-5.4 WBC 6.2 K/mm3 (Normal) Range: 4.4-11.0 :26 Partial Thromboplast Time Comments: [facility] [id number] [facility]. [place], [place], [id number] PTT 28.1 s (Normal) Range: 24.1-36.2 :26 Prothrombin Time w/INR Comments: [facility] [id number] [facility] [place], [place], [id number] INR 1.0 (Normal) PROTIME 12.7 s (Normal) Range: 11.7-14.9 :26 Troponin-I Comments: [facility] [id number] [facility] [place], [place], [phone] TROPONIN-I < 0.015 ng/mL (Normal) Comments: TROPONIN-I EXPECTED VALUES <0.045 Negative 0.045 - 0.590 Consistent with Cardiac Damage > OR = 0.600 Critical Value Not every elevated troponin is indicative of IA. T hesevalues should be used with clinical judgement in examiningthe patient's clinical picture for diagnosis. To establisha diagnosis of IA versus myocardial injury, there must be ademonstrated rise and/ or fall in the troponin values, inaddition to ischemic symptoms, EKG changes, new regionalwall motion abnormality, and/or angiographical evidence. PLEASE NOTE: REFERENCE RANGES EDITED 11/01/1719-May-20187:13 Bedside Glucose Comments: [facility] [id number] [place] [address] BEDSIDE GLU 101 mg/dL (Normal) Range: 70-110 Comments: MANAGEMENT OF PATIENT CARE PER NURSING PROTOCOL :16 LIPOPROTEIN, BLD, BY NMR Comments: PATIENT WAS FASTINGPERFORMED BY: [facility] [id number] ([id number]) LP-IR Score 81 (Abnormal) Comments: INSULIN RESISTANCE MARKER <--Insulin Sensitive Insulin Resistant--> Percentile in Reference PopulationInsulin Resistance ScoreLP-IR Score Low 25th 50th 75th High <27 27 45 63 >63LP-IR Score is inaccurate if patient is non-fasting. .The LP-IR score is a laboratory developed i [facility] that has beenassociated with insulin resistance and diabetes risk and should beused as one component of a physician's clinical assessment. TheLP-IR score listed above has not been cleared by the [place] Food andDrug Administration. LDL Size 20.5 nm (Normal) Comments: INTERPRETATIVE INFORMATION PARTICLE CONCENTRATION AND SIZE <--Lower CVD Risk Highe r CVD Risk--> LDL AND HDL PARTICLES Percentile in Reference Population HDL-P (total) High 75th 50th 25th Low >34.9 34.9 30.5 26.7 <26.7 . Small LDL-P Low 25th 50th 75th High <117 [phone] >839 . LDL Size <-Large (Pattern A)-> <-Small (Pattern B)-> 23.0 20.6 20.5 19.0 Small LDL-P and LDL Size are associated with CVD risk, but not afterLDL-P is taken into account. .These assays were developed and their performance characteristicsdetermined by [employer]. These assays have not been cleared by [employer] Food and Drug Administration. The clinical utility of theselaboratory values have not been fully established. Small LDL-P 423 nmol/L (Normal) HDL-P (Total) 30.4 umol/L (Abnormal) Cholesterol, Total 132 mg/dL (Normal) Range: 100-199 Triglycerides 179 mg/dL (Abnormal) Range: 0-149 HDL-C 37 mg/dL (Abnormal) LDL-C 59 mg/dL (Normal) Range: 0-99 Comments: . Optimal < 100 Above optimal 100 - 129 Borderline 1 30 - 159 High 160 - 189 Very high > 189 .LDL-C is inaccurate if patient is non-fasting. LDL-P 857 nmol/L (Normal) Comments: Low < 1000 Moderate 1000 - 1299 Borderline-High 1300 - 1599 High 1600 - 2000 Very High > 2000 [id number] Basic Metabolic Profile (BMP) Comments: [facility] [id number] [place], [address] GAP 10 (Normal) Range: 5-15 CO2 30.0 mmol/L (Normal) Range: 21.0-32.0 CL 105 mmol/L (Normal) Range: 98-107 K 3.4 mmol/L (Abnormal) Range: 3.5-5.1 NA 145 mmol/L (Normal) Range: 136-145 CA 9.2 mg/dL (Normal) Range: 8.5-10.1 BUN/CRE 15.7 {RATIO} (Normal) Range: 10-20 Estimated CRCL 45.05 ml/min (Normal) EST GFR - AA 61 mL/min (Normal) Comments: GFR Calc EST GFR 50 mL/min (Abnormal) Comments: Non- GFR Calc CREAT,SERUM 1.15 mg/dL (Abnormal) Range: 0.55-1.02 Comments: The validity of the calculated GFR AND GFRAA in patients over70 years has not been determined. Clinical correlation isessential. BUN 18 mg/dL (Normal) Range: 7-18 GLU 107 mg/dL (Abnormal) Range: 74-106 Comments: Fasting Glucose result from 100 to 125 mg/dLsuggests IMPAIRED HOMEOSTASIS per A.D.A. criteria.Please note revised GLUCOSE reference range hfixrfiad94/02/2018. 06-Hox-972489:35 CBC W/Diff, Automated Comments: [facility] [address] [place], [place], [address] Absolute Lymph 2.44 {X10_3/ul} (Normal) Range: 0.83-4.51 Absolute Neut 4.0 {X10_3/uL} (Normal) Range: 2.0-7.7 IM GRAN % 0.100 % (Normal) Range: 0.0-0.9 Comments: IG% - Immature Granulocytes (promyelocytes, myelocytes andmetamyelocytes) > 1% indicates that a LEFT SHIFT is Present. BASO% 0.4 % (Normal) Range: 0-1 EO% 3.3 % (Normal) Range: 0-5 MONO% 7.2 % (Normal) Range: 0-10 LY% 33.6 % (Normal) Range: 19-41 NEUT% 55.4 % (Normal) Range: 47-70 MPV 12.6 fL (Abnormal) Range: 6.2-12.0 PLT 126 K/mm3 (Abnormal) Range: 150-450 RDW SD 47.5 fL (Abnormal) Range: 35.1-43.9 RDW CV 13.4 % (Normal) Range: 11.6-14.6 MCHC 32.4 {g/gl} (Normal) Range: 32-36 MCH 31.4 pg (Normal) Range: 27.0-32.0 MCV 96.7 fL (Normal) Range: 81-99 HCT 44.4 % (Normal) Range: 37-47 HGB 14.4 g/dL (Normal) Range: 12.0-15.0 RBC 4.59 {M/mm3} (Normal) Range: 4.2-5.4 WBC 7.3 K/mm3 (Normal) Range: 4.4-11.0 :35 Troponin-I Comments: [facility] [address] [place], [place], [id number] TROPONIN-I < 0.015 ng/mL (Normal) Comments: TROPONIN-I EXPECTED VALUES <0.045 Negative 0.045 - 0.590 Consistent with Cardiac Damage > OR = 0.600 Critical Value Not every elevated troponin is indicative of IA. T hesevalues should be used with clinical judgement in examiningthe patient's clinical picture for diagnosis. To establisha diagnosis of IA versus myocardial injury, there must be ademonstrated rise and/ or fall in the troponin values, inaddition to ischemic symptoms, EKG changes, new regionalwall motion abnormality, and/or angiographical evidence. PLEASE NOTE: REFERENCE RANGES EDITED 11/01/1723-Sep-20178:28 Pathology Report Comments: PERFORMED BY: LUIS Momin Lynden Qyhr4392 [facility] [id number] BY: [facility] Dermatopathology [address] [place] [address] [id number] Information: [id number] See MATER Comments: Material submitted: .RIGHT HAND BIOPSYClinical history: .BLACK SPOT ON HAND Note (Normal) Diagnosis:BLUE NEVUS.TMZ/09/28/2017Electronically signed: .Mya Fay MD, DermatopathologistGross description: .RECEIVED IN FORMALIN LABELED DIANA ESCUDERO AND DESIGNATEDRIGHT HAND IS A PUGH SKIN PUNCH BIOPSY MEASURING 3.0 MM IN ANDREW METERAND 2.0 MM THICK WITH A OLIVAS, RAISED AREA 2.5 X 1.5 MM. SUBMITTEDIN TOTO.FUN/TMZPathologist provided ICD-10:D22.61CPT .866684 28-Air-86994:47 Platelet Count on Comments: PATIENT WAS FASTINGPERFORMED BY: [employer] LabCoOneCubicleYtigkgwzop1473 [facility] [id number] BY: LabCoChrist HospitalZjqajj0989 [facility] [id number] Citrated Bld Plt Count, Citrated Bld 160 {X10E3/uL} (Normal) Range: 150-379 11-Wbh-44824:47 LIPOPROTEIN, BLD, BY NMR Comments: PATIENT WAS FASTINGPERFORMED BY: [facility] Ehdjtqrdbc3193 [facility] [id number] BY: LabNippo Vhkuzg0505 [facility] [id number] Information: PLATELET ON CITRATE BLD [id number] (02354) LP-IR Score 85 (Abnormal) Comments: INSULIN RESISTANCE MARKER <--Insulin Sensitive Insulin Resistant--> Percentile in Reference PopulationInsulin Resistance ScoreLP-IR Score Low 25th 50th 75th High <27 27 45 63 >63LP-IR Score is inaccurate if patient is non-fasting. .The LP-IR score is a laboratory developed i [facility] that has beenassociated with insulin resistance and diabetes risk and should beused as one component of a physician's clinical assessment. TheLP-IR score listed above has not been cleared by the [place] Food andDrug Administration. LDL Size 21.2 nm (Normal) Comments: INTERPRETATIVE INFORMATION PARTICLE CONCENTRATION AND SIZE <--Lower CVD Risk Highe r CVD Risk--> LDL AND HDL PARTICLES Percentile in Reference Population HDL-P (total) High 75th 50th 25th Low >34.9 34.9 30.5 26.7 <26.7 . Small LDL-P Low 25th 50th 75th High <117 117 527 839 >839 . LDL Size <-Large (Pattern A)-> <-Small (Pattern B)-> 23.0 20.6 20.5 19.0 Small LDL-P and LDL Size are associated with CVD risk, but not afterLDL-P is taken into account. .These assays were developed and their performance characteristicsdetermined by [employer]. These assays have not been cleared by [employer] Food and Drug Administration. The clinical utility of theselaboratory values have not been fully established. Small LDL-P 545 nmol/L (Abnormal) HDL-P (Total) 21.5 umol/L (Abnormal) Cholesterol, Total 187 mg/dL (Normal) Range: 100-199 Triglycerides 235 mg/dL (Abnormal) Range: 0-149 HDL-C 32 mg/dL (Abnormal) LDL-C 108 mg/dL (Abnormal) Range: 0-99 Comments: . Optimal < 100 Above optimal 100 - 129 Borderline 1 30 - 159 High 160 - 189 Very high > 189 .LDL-C is inaccurate if patient is non-fasting. LDL-P 1488 nmol/L (Abnormal) Comments: Low < 1000 Moderate 1000 - 1299 Borderline-High 1300 - 1599 High 1600 - 2000 Very High > 2000 57-Gck-81866:43 Albumin/Creatinine Ratio,Urine Comments: PATIENT NOT FASTINGPERFORMED BY: [employer]6370 m-Care TechnologyCataw[facility] [id number] Alb/Creat Ratio <1.4 {mg/g_creat} (Normal) Range: 0.0-30.0 Albumin, Urine <3.0 ug/mL (Normal) Creatinine, Urine 212.4 mg/dL (Normal) 75-Abw-13116:43 CBC With Differential/Platelet Comments: PATIENT NOT FASTINGPERFORMED BY: [employer]6370 m-Care TechnologyCatawba [facility] [id number] Immature Grans (Abs) 0.0 {x10E3/uL} (Normal) Range: 0.0-0.1 Immature Granulocytes 0 % (Normal) Baso (Absolute) 0.0 {x10E3/uL} (Normal) Range: 0.0-0.2 Eos (Absolute) 0.1 {x10E3/uL} (Normal) Range: 0.0-0.4 Monocytes(Absolute) 0.6 {x10E3/uL} (Normal) Range: 0.1-0.9 Lymphs (Absolute) 2.1 {x10E3/uL} (Normal) Range: 0.7-3.1 Neutrophils (Absolute) 3.6 {x10E3/uL} (Normal) Range: 1.4-7.0 Basos 1 % (Normal) Eos 2 % (Normal) Monocytes 9 % (Normal) Lymphs 33 % (Normal) Neutrophils 55 % (Normal) Platelets 145 {x10E3/uL} (Abnormal) Range: 150-379 RDW 13.7 % (Normal) Range: 12.3-15.4 MCHC 32.9 g/dL (Normal) Range: 31.5-35.7 MCH 31.9 pg (Normal) Range: 26.6-33.0 MCV 97 fL (Normal) Range: 79-97 Hematocrit 41.6 % (Normal) Range: 34.0-46.6 Hemoglobin 13.7 g/dL (Normal) Range: 11.1-15.9 RBC 4.29 {x10E6/uL} (Normal) Range: 3.77-5.28 WBC 6.3 {x10E3/uL} (Normal) Range: 3.4-10.8 22-Arm-31956:43 Comp. Metabolic Panel (14) Comments: PATIENT NOT FASTINGPERFORMED BY: [facility] Fpzmtg5872 [facility] [id number] ALT (SGPT) 18 [iU]/L (Normal) Range: 0-32 AST (SGOT) 18 [iU]/L (Normal) Range: 0-40 Alkaline Phosphatase, S 53 [iU]/L (Normal) Range: 39-117 Bilirubin, Total 0.4 mg/dL (Normal) Range: 0.0-1.2 A/G Ratio 1.2 (Normal) Range: 1.2-2.2 Globulin, Total 2.8 g/dL (Normal) Range: 1.5-4.5 Albumin, Serum 3.4 g/dL (Abnormal) Range: 3.6-4.8 Protein, Total, Serum 6.2 g/dL (Normal) Range: 6.0-8.5 Calcium, Serum 9.1 mg/dL (Normal) Range: 8.7-10.3 Carbon Dioxide, Total 22 mmol/L (Normal) Range: 18-29 Chloride, Serum 105 mmol/L (Normal) Range: 96-106 Potassium, Serum 3.7 mmol/L (Normal) Range: 3.5-5.2 Sodium, Serum 145 mmol/L (Abnormal) Range: 134-144 BUN/Creatinine Ratio 20 (Normal) Range: 12-28 eGFR If Africn Am 73 mL/min/1.73 (Normal) eGFR If NonAfricn Am 63 mL/min/1.73 (Normal) Creatinine, Serum 0.95 mg/dL (Normal) Range: 0.57-1.00 BUN 19 mg/dL (Normal) Range: 8-27 Glucose, Serum 100 mg/dL (Abnormal) Range: 65-99 38-Cdl-85338:43 Urinalysis, Routine Comments: PATIENT NOT FASTINGPERFORMED BY: TripwareChrist HospitalKzyplc1743 [facility] [id number] Microscopic Examination MICNIP (Normal) Comments: Microscopic not indicated and not performed. Nitrite, Urine Negative (Normal) Urobilinogen,Semi-Qn 0.2 mg/dL (Normal) Range: 0.2-1.0 Bilirubin Negative (Normal) Occult Blood Negative (Normal) Ketones Negative (Normal) Glucose Negative (Normal) Protein Negative (Normal) WBC Esterase Negative (Normal) Appearance Clear (Normal) Urine-Color Yellow (Normal) pH 6.0 (Normal) Range: 5.0-7.5 Specific Husser 1.025 (Normal) Range: 1.005-1.030 48-Ayf-821316:21 FLU A+B DIRECT AG, (RAPID) (81553) FLU A+B DIRECT AG, (RAPID) negative (Normal) :32 Potassium Serum (51652) Comments: PATIENT NOT FASTINGPERFORMED BY: [employer] [id number] BY: [address] [id number] Potassium, Serum 3.9 mmol/L (Normal) Range: 3.5-5.2 :32 Magnesium (57145) Comments: PATIENT NOT FASTINGPERFORMED BY: [place] [address] [facility] [id number] BY: [address] [id number] Magnesium, Serum 2.0 mg/dL (Normal) Range: 1.6-2.3 :32 CCP ANTIBODY (05134) Comments: PATIENT NOT FASTINGPERFORMED BY: [place] [address] [facility] [id number] BY: [address] [id number] CCP Antibodies IgG/IgA 10 {units} (Normal) Range: 0-19 Comments: Negative <20 Weak positive 20 - 39 Moderate positive 40 - 59 Strong positive >59 :32 TSH (67968) Comments: PATIENT NOT FASTINGPERFORMED BY: [place] [address] [facility] [id number] BY: [address] [id number] TSH 3.380 {uIU/mL} (Normal) Range: 0.450-4.500 :32 SED RATE ERYTHROCYTE Comments: PATIENT NOT FASTINGPERFORMED BY: [place] [address] [facility] [id number] BY: [address] [id number] (74299) Sedimentation Rate-Westergren 14 mm/h (Normal) Range: 0-40 57-Wta-38129:32 C-REACTIVE PROTEIN (67131) Comments: PATIENT NOT FASTINGPERFORMED BY: [place] [address] [facility] [id number] BY: [address] [id number] C-Reactive Protein, Quant 3.5 mg/L (Normal) Range: 0.0-4.9 :32 JESUS ALBERTO (ANTINUCLEAR ANTIBODY) Comments: PATIENT NOT FASTINGPERFORMED BY: [place] [address] [facility] [id number] BY: [facility] [address] [id number]; fu 3-30 (78511) JESUS ALBERTO Direct Negative (Normal) 94-Hnl-692108:37 Basic Metabolic Profile (BMP) Comments: 'TROP' Serial specimen #1, #2, #3, or #4: [facility] [address] [place], [address] GAP 8 (Normal) Range: 5-15 CO2 29.0 mmol/L (Normal) Range: 21.0-32.0 CL 104 mmol/L (Normal) Range: 98-107 K 3.3 mmol/L (Abnormal) Range: 3.5-5.1 NA 141 mmol/L (Normal) Range: 136-145 CA 9.0 mg/dL (Normal) Range: 8.5-10.1 BUN/CRE 17.3 {RATIO} (Normal) Range: 10-20 Estimated CRCL 48.37 ml/min (Normal) EST GFR - AA 64 mL/min (Normal) Comments: GFR Calc EST GFR 53 mL/min (Abnormal) Comments: Non- GFR Calc CREAT,SERUM 1.10 mg/dL (Abnormal) Range: 0.55-1.02 Comments: The validity of the calculated GFR AND GFRAA in patients over70 years has not been determined. Clinical correlation isessential. BUN 19 mg/dL (Abnormal) Range: 7-18 GLU 116 mg/dL (Abnormal) Range: 70-110 Comments: Fasting Glucose result from 110 to <126 mg/dLsuggests IMPAIRED HOMEOSTASIS per A.D.A. criteria. 23-Mtu-701949:37 CBC W/Diff, Automated Comments: [facility] [address] [place], [address] Absolute Lymph 1.93 {X10_3/ul} (Normal) Range: 0.83-4.51 Absolute Neut 3.4 {X10_3/uL} (Normal) Range: 2.0-7.7 IM GRAN % 0.300 % (Normal) Range: 0.0-0.9 Comments: IG% - Immature Granulocytes (promyelocytes, myelocytes andmetamyelocytes) > 1% indicates that a LEFT SHIFT is Present. BASO% 0.3 % (Normal) Range: 0-1 EO% 1.2 % (Normal) Range: 0-5 MONO% 7.8 % (Normal) Range: 0-10 LY% 32.8 % (Normal) Range: 19-41 NEUT% 57.6 % (Normal) Range: 47-70 MPV 12.7 fL (Abnormal) Range: 6.2-12.0 PLT 154 K/mm3 (Normal) Range: 150-450 RDW SD 46.1 fL (Abnormal) Range: 35.1-43.9 RDW CV 13.5 % (Normal) Range: 11.6-14.6 MCHC 32.9 {g/gl} (Normal) Range: 32-36 MCH 31.8 pg (Normal) Range: 27.0-32.0 MCV 96.4 fL (Normal) Range: 81-99 HCT 43.1 % (Normal) Range: 37-47 HGB 14.2 g/dL (Normal) Range: 12.0-15.0 RBC 4.47 {M/mm3} (Normal) Range: 4.2-5.4 WBC 5.9 K/mm3 (Normal) Range: 4.4-11.0 69-Btm-027646:37 Troponin-I Comments: 'TROP' Serial specimen #1, #2, #3, or #4: [address] [place] [address] [address] [place], [place], [id number] TROPONIN-I < 0.02 ng/mL (Normal) Comments: TROPONIN-I EXPECTED VALUES <0.05 NEGATIVE 0.06 - 0.59 AT RISK OF IA > OR = 0.60 SUGGEST IA 84-Tuo-681989:16 HEPATITIS C ANTIBODY (25130) Comments: CLient bill for this; PATIENT NOT FASTINGPERFORMED BY: [facility] Qukzuc3646 [facility] [id number] Hep C Virus Ab <0.1 {s/co_ratio} (Normal) Range: 0.0-0.9 Comments: Negative: < 0.8 Indeterminate: 0.8 - 0.9 Positive: > 0.9 . The CDC recommends that a positive HCV antibody result be followed up with a HCV Nucleic Acid Amplification test (976511). :32 CBC W/Diff, Automated Comments: [facility] [address] [place], [place], [id number] Absolute Lymph 2.31 {X10_3/ul} (Normal) Range: 0.83-4.51 Absolute Neut 2.6 {X10_3/uL} (Normal) Range: 2.0-7.7 IM GRAN % 0.200 % (Normal) Range: 0.0-0.9 Comments: IG% - Immature Granulocytes (promyelocytes, myelocytes andmetamyelocytes) > 1% indicates that a LEFT SHIFT is Present. BASO% 0.7 % (Normal) Range: 0-1 EO% 2.7 % (Normal) Range: 0-5 MONO% 8.7 % (Normal) Range: 0-10 LY% 41.7 % (Abnormal) Range: 19-41 NEUT% 46.0 % (Abnormal) Range: 47-70 MPV 12.4 fL (Abnormal) Range: 6.2-12.0 PLT 139 K/mm3 (Abnormal) Range: 150-450 RDW SD 48.0 fL (Abnormal) Range: 35.1-43.9 RDW CV 13.7 % (Normal) Range: 11.6-14.6 MCHC 32.2 {g/gl} (Normal) Range: 32-36 MCH 30.9 pg (Normal) Range: 27.0-32.0 MCV 95.9 fL (Normal) Range: 81-99 HCT 42.5 % (Normal) Range: 37-47 HGB 13.7 g/dL (Normal) Range: 12.0-15.0 RBC 4.43 {M/mm3} (Normal) Range: 4.2-5.4 WBC 5.5 K/mm3 (Normal) Range: 4.4-11.0 :08 Basic Metabolic Profile (BMP) Comments: Serial Specimen #1, #2 or #3? 1'TROP' Serial specimen #1, #2, #3, or #4: 1'CKMB' Serial Specimen #1, #2 or #3? [facility] [address] [place], [address] GAP 7 (Normal) Range: 5-15 CO2 28.0 mmol/L (Normal) Range: 21.0-32.0 CL 106 mmol/L (Normal) Range: 98-107 K 4.4 mmol/L (Normal) Range: 3.5-5.1 Comments: Moderate Hemolysis, Result may be falsely increased. NA 141 mmol/L (Normal) Range: 136-145 CA 8.8 mg/dL (Normal) Range: 8.5-10.1 BUN/CRE 17.0 {RATIO} (Normal) Range: 10-20 Estimated CRCL 53.91 ml/min (Normal) EST GFR - AA 72 mL/min (Normal) Comments: GFR Calc EST GFR 60 mL/min (Normal) Comments: Non- GFR Calc CREAT,SERUM 1.00 mg/dL (Normal) Range: 0.55-1.20 Comments: The validity of the calculated GFR AND GFRAA in patients over70 years has not been determined. Clinical correlation isessential. BUN 17 mg/dL (Normal) Range: 7-18 GLU 92 mg/dL (Normal) Range: 70-110 :08 CK-MB Quantitative and Index Comments: Serial Specimen #1, #2 or #3? 1'TROP' Serial specimen #1, #2, #3, or #4: 1'CKMB' Serial Specimen #1, #2 or #3? [facility] [address] [place], [place], [address] CKRI 1.1 % (Normal) Range: 0.0-1.4 Comments: RELATIVE INDEX >1.5% IS PRESUMPTIVELY POSITIVE CPKMB 1.7 ng/mL (Normal) Range: 0.0-5.0 Comments: CK-MB and RI Interpretation MB Relative Index Non-AMI <or= 5 NA Indeterminate > 5 <or= 4 AMI > 5 > 4 CPK TOTAL 158 U/L (Normal) Range: 26-192 Comments: Moderate Hemolysis, Result may be falsely increased. :08 Troponin-I Comments: Serial Specimen #1, #2 or #3? 1'TROP' Serial specimen #1, #2, #3, or #4: 1'CKMB' Serial Specimen #1, #2 or #3? 1[facility] [address] [place], [place], [address] TROPONIN-I < 0.02 ng/mL (Normal) Comments: TROPONIN-I EXPECTED VALUES <0.05 NEGATIVE 0.06 - 0.59 AT RISK OF IA > OR = 0.60 SUGGEST IA :30 CBC (Auto) (11872) Comments: PATIENT WAS FASTINGPERFORMED BY: LabCoGOQii Pqhhxb0524 [facility] [id number] Platelets 165 {x10E3/uL} (Normal) Range: 150-379 RDW 13.8 % (Normal) Range: 12.3-15.4 MCHC 33.1 g/dL (Normal) Range: 31.5-35.7 MCH 31.2 pg (Normal) Range: 26.6-33.0 MCV 94 fL (Normal) Range: 79-97 Hematocrit 43.2 % (Normal) Range: 34.0-46.6 Hemoglobin 14.3 g/dL (Normal) Range: 11.1-15.9 RBC 4.59 {x10E6/uL} (Normal) Range: 3.77-5.28 WBC 6.6 {x10E3/uL} (Normal) Range: 3.4-10.8 :30 Metabolic Panel, Comments: PATIENT WAS FASTINGPERFORMED BY: LabCoChrist HospitalJotxzl3645 [facility] [id number] Information: [id number] Comprehensive (30179) ALT (SGPT) 14 [iU]/L (Normal) Range: 0-32 AST (SGOT) 20 [iU]/L (Normal) Range: 0-40 Alkaline Phosphatase, S 76 [iU]/L (Normal) Range: 39-117 Bilirubin, Total 0.2 mg/dL (Normal) Range: 0.0-1.2 A/G Ratio 1.2 (Normal) Range: 1.1-2.5 Globulin, Total 3.0 g/dL (Normal) Range: 1.5-4.5 Albumin, Serum 3.6 g/dL (Normal) Range: 3.6-4.8 Protein, Total, Serum 6.6 g/dL (Normal) Range: 6.0-8.5 Calcium, Serum 9.4 mg/dL (Normal) Range: 8.7-10.3 Carbon Dioxide, Total 22 mmol/L (Normal) Range: 18-29 Chloride, Serum 104 mmol/L (Normal) Range: 97-108 Potassium, Serum 4.1 mmol/L (Normal) Range: 3.5-5.2 Sodium, Serum 148 mmol/L (Abnormal) Range: 134-144 BUN/Creatinine Ratio 20 (Normal) Range: 11-26 eGFR If Africn Am 75 mL/min/1.73 (Normal) eGFR If NonAfricn Am 65 mL/min/1.73 (Normal) Creatinine, Serum 0.94 mg/dL (Normal) Range: 0.57-1.00 BUN 19 mg/dL (Normal) Range: 8-27 Glucose, Serum 97 mg/dL (Normal) Range: 65-99 :30 Lipid Panel (77824) Comments: PATIENT WAS FASTINGPERFORMED BY: [facility] TechnologiesUNC [facility] [id number] LDL/HDL Ratio 3.6 {ratio_units} (Abnormal) Range: 0.0-3.2 Comments: LDL/HDL Ratio Men Women 1/2 Avg.Risk 1.0 1.5 Av g.Risk 3.6 3.2 2X Avg.Risk 6.2 5.0 3X Avg.Risk 8.0 6.1 LDL Cholesterol Calc 127 mg/dL (Abnormal) Range: 0-99 VLDL Cholesterol José Luis 56 mg/dL (Abnormal) Range: 5-40 HDL Cholesterol 35 mg/dL (Abnormal) Comments: According to ATP-III Guidelines, HDL-C >59 mg/dL is considered anegative risk factor for CHD. Triglycerides 278 mg/dL (Abnormal) Range: 0-149 Cholesterol, Total 218 mg/dL (Abnormal) Range: 100-199 :30 Hemoglobin Glyclated (HGB A1C) Comments: PATIENT WAS FASTINGPERFORMED BY: [facility] [id number]; apt. 4-4 (87172) Hemoglobin A1c 5.8 % (Abnormal) Range: 4.8-5.6 Comments: . Pre-diabetes: 5.7 - 6.4 Diabetes: >6.4 Glycemic control for adults with diabetes: <7.0 33-Zak-497005:59 Urinalysis, Office (97912) UA - LEUKOCYTE ESTERASE Negative (Normal) UA - NITRITE Positive (Normal) URINE UROBILINGN FRANKO TIMED 2 mg/dL (Normal) UA - PROTEIN Negative mg/dL (Normal) UA - PH 5 (Abnormal) UA - BLOOD Negative (Normal) UA - SPECIFIC GRAVITY 1.020 (Normal) UA - KETONES Negative mg/dL (Normal) UA - BILIRUBIN Negative (Normal) UA - GLUCOSE Negative (Normal) 01-Euq-87225:00 Anticardiolip Ab, IgA/G/M, Comments: PATIENT WAS FASTINGPERFORMED BY: CB [facility] Zinubo7072 [facility] [id number] BY: TG [facility] GPA3720 [facility] [id number] Qn Anticardiolipin Ab,IgA,Qn <9 {APL_U/mL} (Normal) Range: 0-11 Comments: Negative: <12 Indeterminate: 12 - 20 Low-Med Positive: >20 - 80 High Positive: >80 Anticardiolipin Ab,IgM,Qn <9 {MPL_U/mL} (Normal) Range: 0-12 Comments: Negative: <13 Indeterminate: 13 - 20 Low-Med Positive: >20 - 80 High Positive: >80 Anticardiolipin Ab,IgG,Qn <9 {GPL_U/mL} (Normal) Range: 0-14 Comments: Negative: <15 Indeterminate: 15 - 20 Low-Med Positive: >20 - 80 High Positive: >80 25-Xqo-520208:37 Basic Metabolic Profile (BMP) Comments: Serial Specimen #1, #2 or #3? 1'TROP' Serial specimen #1, #2, #3, or #4: 1Test performed at:[facility] [address] [place], [place] [id number] GAP 7 (Normal) Range: 5-15 CO2 26.0 mmol/L (Normal) Range: 21.0-32.0 CL 106 mmol/L (Normal) Range: 98-107 K 3.8 mmol/L (Normal) Range: 3.5-5.1 NA 139 mmol/L (Normal) Range: 136-145 CA 9.9 mg/dL (Normal) Range: 8.5-10.1 BUN/CRE 16.0 {RATIO} (Normal) Range: 10-20 Estimated CRCL 53.91 ml/min (Normal) EST GFR - AA 73 mL/min (Normal) EST GFR 60 mL/min (Normal) CREAT,SERUM 1.00 mg/dL (Normal) Range: 0.55-1.20 Comments: Please note revised CREATININE reference range sarfjcwck16/22/2015. BUN 16 mg/dL (Normal) Range: 7-18 GLU 134 mg/dL (Abnormal) Range: 70-110 Comments: Fasting Glucose result greater than or equal to 126 mg/dLsuggests DIABETES MELLITUS per A.D.A. criteria. 93-Ofj-175360:37 CBC W/Diff, Automated Comments: Test performed at:[facility] [address] [place], [place] [address] Absolute Lymph 2.35 {X10_3/ul} (Normal) Range: 0.83-4.51 Absolute Neut 4.4 {X10_3/uL} (Normal) Range: 2.0-7.7 IM GRAN % 0.300 % (Normal) Range: 0.0-0.9 Comments: IG% - Immature Granulocytes (promyelocytes, myelocytes andmetamyelocytes) > 1% indicates that a LEFT SHIFT is Present. BASO% 0.4 % (Normal) Range: 0-1 EO% 0.7 % (Normal) Range: 0-5 MONO% 7.7 % (Normal) Range: 0-10 LY% 31.6 % (Normal) Range: 19-41 NEUT% 59.3 % (Normal) Range: 47-70 MPV 11.9 fL (Normal) Range: 6.2-12.0 PLT 194 K/mm3 (Normal) Range: 150-450 RDW SD 45.4 fL (Abnormal) Range: 35.1-43.9 RDW CV 13.2 % (Normal) Range: 11.6-14.6 MCHC 33.5 {g/gl} (Normal) Range: 32-36 MCH 31.4 pg (Normal) Range: 27.0-32.0 MCV 93.8 fL (Normal) Range: 81-99 HCT 48.1 % (Abnormal) Range: 37-47 HGB 16.1 g/dL (Abnormal) Range: 12.0-15.0 RBC 5.13 {M/mm3} (Normal) Range: 4.2-5.4 WBC 7.4 K/mm3 (Normal) Range: 4.4-11.0 16-Kue-828511:37 CK-MB Quantitative and Index Comments: Serial Specimen #1, #2 or #3? 1'TROP' Serial specimen #1, #2, #3, or #4: 1Test performed at:[facility] Cadr[address]vzc9538 [facility] [place] [address] CPKMB 0.8 ng/mL (Normal) Range: 0.0-5.0 Comments: CK-MB and RI Interpretation MB Relative Index Non-AMI <or= 5 NA Indeterminate > 5 <or= 4 AMI > 5 > 4 CPK TOTAL 80 U/L (Normal) Range: 26-192 66-Cia-492126:37 Troponin-I Comments: Serial Specimen #1, #2 or #3? 1'TROP' Serial specimen #1, #2, #3, or #4: 1Test performed at:[facility] Idwvcaqyqv2504 [facility] [place] [address] TROPONIN-I < 0.02 ng/mL (Normal) Comments: TROPONIN-I EXPECTED VALUES <0.05 NEGATIVE 0.06 - 0.59 AT RISK OF IA > OR = 0.60 SUGGEST IA [id number]-Cjn-578802:59 D-Dimer (43354) Comments: PATIENT NOT FASTINGPERFORMED BY: [facility] [address] [id number] BY: [facility] [address] [id number] D-Dimer 0.59 {mg/L_FEU} (Abnormal) Range: 0.00-0.49 Comments: In conjunction with a non-high clinical probability assessment, anormal (<0.50 mg/L FEU) result excludes deep vein thrombosis (DVT)and pulmonary embolism (PE) with high sensitivity. 19-Qdq-73078:00 LIPID PANEL (94759) Comments: PATIENT WAS FASTINGPERFORMED BY: [facility] HospitalZnqvin1111 [facility] [id number] BY: [employer] [id number] [facility] [id number] LDL/HDL Ratio 3.1 {ratio_units} (Normal) Range: 0.0-3.2 Comments: LDL/HDL Ratio Men Women 1/2 Avg.Risk 1.0 1.5 Av g.Risk 3.6 3.2 2X Avg.Risk 6.2 5.0 3X Avg.Risk 8.0 6.1 LDL Cholesterol Calc 104 mg/dL (Abnormal) Range: 0-99 VLDL Cholesterol José Luis 39 mg/dL (Normal) Range: 5-40 HDL Cholesterol 34 mg/dL (Abnormal) Comments: According to ATP-III Guidelines, HDL-C >59 mg/dL is considered anegative risk factor for CHD. Triglycerides 193 mg/dL (Abnormal) Range: 0-149 Cholesterol, Total 177 mg/dL (Normal) Range: 100-199 20-Xkv-482429:59 Protein S Profile Comments: PATIENT NOT FASTINGPERFORMED BY: [place] 211347 [facility] [id number] BY: [facility] HospitalQupzhw9424 [facility] [id number] Inf ormation: [id number] ([id number]) Protein S-Functional 119 % (Normal) Range: 60-145 Protein S, Free 108 % (Normal) Range: 56-124 Protein S, Total 137 % (Normal) Range: 58-150 95-Eah-821168:59 Protein C Profile Comments: PATIENT NOT FASTINGPERFORMED BY: [facility] ElmerKrplbnegxe6012 [facility] [id number] BY: [facility] HospitalHplmws4731 [facility] [id number] ([id number]) Protein C-Functional 120 % (Normal) Range: 74-151 Protein C Antigen 104 % (Normal) Range: 70-140 71-Ewk-66710:00 Homocysteine, Plasma Comments: PATIENT WAS FASTINGPERFORMED BY: TripwareChrist HospitalZahefw5553 [facility] [id number] BY: Zipcar PBH6558 [facility] [id number] (05594) Homocyst(e)ine, Plasma 11.2 umol/L (Normal) Range: 0.0-15.0 78-Nde-437358:59 ANTITHROMBIN III ACTIVTY Comments: PATIENT NOT FASTINGPERFORMED BY: Tripware[address] [id number] BY: Tripware Uwusmv7540 [facility] [id number] (29205) Antithrombin Antigen 94 % (Normal) Range: 75-130 Antithrombin Activity 108 % (Normal) Range: 75-135 39-Xrx-151586:59 CLOTTING FACTOR II Comments: PATIENT NOT FASTINGPERFORMED BY: [address] [id number] BY: Tripware Lsslwp5192 [facility] [id number] (27645) Factor II Activity 113 % (Normal) Range: 75-130 00-Ajo-51563:00 Factor V Leiden (59429) Comments: PATIENT WAS FASTINGPERFORMED BY: [facility] LabN[facility]o Nxszrw4648 [facility] CelnyxUNC [facility] [id number] BY: Tripware [id number] [facility] [id number] Factor V Leiden FVNEG3 (Normal) Comments: Result: Negative (no mutation found) .Factor V Leiden is a specific mutation (R506Q) in the factorV gene that is associated with an increased r isk of venousthrombosis. Factor V Leiden is more resistant toinactivation by activated protein C. As a result, factor Vpersists in the circulation leading to a mild hyper-coagulable state. The Leiden mutation accounts for 90% -95% of APC resistance. Factor V Leiden has been reported inpatients with deep vein thrombosis, pulmonary embolus,central retinal vein occlusion, cerebral sinus thrombosisand hepatic vein thrombosis. Other risk factors to beconsidered in the workup for venous thrombosis include [id number] mutation in the factor II (prothrombin) gene,protein S and C deficiency, and antithromb in deficiencies.Anticardiolipin antibody and lupus anticoagulant analysismay be appropriate for certain patients, as well ashomocysteine levels. .Contact your local [facility] for information on how to orderadditional testing if desired. .Genetic counselors are available for health care* providers to discuss results at [phone] ([phone]). .Methodology:DNA analysis of the Factor V gene was performed by allele-specific PCR followed by gel electrophoresis. The diagnosticsensitivity and specificity is >99% for both. Molecular-based testing is highly accurate, but as in any laboratorytest, diagnostic errors may occur. All test results must becombined with clinical information for the most accurateinterpretation. .References:Sly Montez (1995). Clin Lab Med 16: 169-186. .Dora Carrera, PhDOlimpia Wilson, PhDAspen Orta, PhDShiela Chavez, PhDTara Jhaveri, PhDNgozi Cardozo, PhD . 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 Compound heterozygosity for the D978Ssss N9001F variants is unlikely to be of clinical sign ificance, basedon consensus of published reports. This combination of results,however, may be associated with increased risk for the development ofhyperhomocysteinemia when the individual is deficient i n folate,vitamin B6, or vitamin B12. A fasting homocysteine level should bemeasured. This genotype alone in the absence of hyperhomocysteinemia,does not increase risk of venous thrombosis, coronary antonio ry diseaseor recurrent loss. However, hyperhomocysteinemia may alsooccur due to mutations in enzymes other than MTHFR that are involvedin homocysteine metabolism, or arise due to acquired fact ors. In theevaluation of vascular and obstetric risk, consider measuring fastinghomocysteine. Additional risk factors may be detected throughsystematic clinical laboratory analysis.Genetic counselors ar e available to discuss these results with healthcare providers at [phone]. .Methylenetetrahydrofolate reductase (MTHFR) is a ke y enzyme in thefolate pathway and is responsible for the metabolism of homocysteine.There are two common variants in the MTHFR gene, c.655C>T(p.Zot238Exv), referred to as C677T, and c.1286A>C (p.G sm903Tox),referred to as A9416O. Individuals homozygous for C677T (two copiesof the variant), have decreased activity of the MTHFR enzyme and apredisposition to hyperhomocysteinemia, particularly when d eficient infolate. Hyperhomocysteinemia is a risk factor for venous thrombosisand coronary artery disease and is associated with an increased riskof open neural tube defects. The C677T variant reilly s notindependently increase risk of these conditions in the absence ofhyperhomocysteinemia. The M2071K variant is not associated withelevated homocysteine levels unless a C677T variant is also present;h owever, the clinical significance of heterozygosity for both H681Nbnw H1010H is controversial. Population data suggest that these twovariants are not present on the same chromosome, but rare exceptionsh ave been reported of triple variant MTHFR genotypes (ie. homozygousfor one variant and heterozygous for the other). Homozygosity dpqK741E has an estimated frequency of 10% to 15% in Caucasians and 25%in Hispanics. .Additional information: .Dietary folic acid, B6 and B 12 supplementation has been suggested tolower homocysteine levels in some people. Folic acid supplementationhas been shown to reduce the occurrence of neural tube defects.Methodology:DNA analysis of the MTHFR gene was performed by PCRamplification followed by restriction analysis. Thediagnostic sensitivity is >99% for both. Molecular-basedtesting is highly accurate, but as in any laboratory test,r are diagnostic errors may occur. All test results must becombined with clinical information for the most accurateinterpretation. .South BARAJAS, Ki burton Q. Am J Epidemiol 2000; 151(9):862-877.Nilsa MM, Lady JA. Arch Pathol Lab Med 2007; 131(6):872-884.Tyreset P et al. Felisa Giana 1995; 10(1):111- 113.Hickey SE et al. Giana Med 2013; 15(2):153-156.Juhi riley C et al. Obstet Gynecol 2011; 118(3):730-740.Jakob B et al. Eur J Epidemiol 2013; 28(8):621-647. .Dora Carrera, PhDSteffen Wilson, PhDAspen Orta, PhDShiela Chavez, MS, PhDTara Jhaveri, PhDNgozi Cardozo, PhD :52 HgA1C , Office (35293) HgA1C , Office 5.8 % (Normal) Range: 4.6 - 7.1 :31 CBC With Differential/Platelet Comments: PATIENT WAS FASTINGPERFORMED BY: LabCoChrist HospitalCuvdvh3080 [facility] [id number] Information: [id number] Immature Grans (Abs) 0.0 {x10E3/uL} (Normal) Range: 0.0-0.1 Immature Granulocytes 0 % (Normal) Baso (Absolute) 0.0 {x10E3/uL} (Normal) Range: 0.0-0.2 Eos (Absolute) 0.1 {x10E3/uL} (Normal) Range: 0.0-0.4 Monocytes(Absolute) 0.6 {x10E3/uL} (Normal) Range: 0.1-0.9 Lymphs (Absolute) 2.3 {x10E3/uL} (Normal) Range: 0.7-3.1 Neutrophils (Absolute) 2.3 {x10E3/uL} (Normal) Range: 1.4-7.0 Basos 0 % (Normal) Eos 2 % (Normal) Monocytes 11 % (Normal) Lymphs 43 % (Normal) Neutrophils 44 % (Normal) Platelets 179 {x10E3/uL} (Normal) Range: 150-379 RDW 13.9 % (Normal) Range: 12.3-15.4 MCHC 32.3 g/dL (Normal) Range: 31.5-35.7 MCH 30.9 pg (Normal) Range: 26.6-33.0 MCV 96 fL (Normal) Range: 79-97 Hematocrit 43.0 % (Normal) Range: 34.0-46.6 Hemoglobin 13.9 g/dL (Normal) Range: 11.1-15.9 RBC 4.50 {x10E6/uL} (Normal) Range: 3.77-5.28 WBC 5.3 {x10E3/uL} (Normal) Range: 3.4-10.8 :31 Comp. Metabolic Panel (14) Comments: PATIENT WAS FASTINGPERFORMED BY: LabCoChrist HospitalUycopt7963 [facility] [id number] ALT (SGPT) 18 [iU]/L (Normal) Range: 0-32 AST (SGOT) 20 [iU]/L (Normal) Range: 0-40 Alkaline Phosphatase, S 61 [iU]/L (Normal) Range: 39-117 Bilirubin, Total 0.4 mg/dL (Normal) Range: 0.0-1.2 A/G Ratio 1.4 (Normal) Range: 1.1-2.5 Globulin, Total 2.7 g/dL (Normal) Range: 1.5-4.5 Albumin, Serum 3.7 g/dL (Normal) Range: 3.6-4.8 Protein, Total, Serum 6.4 g/dL (Normal) Range: 6.0-8.5 Calcium, Serum 9.4 mg/dL (Normal) Range: 8.7-10.3 Carbon Dioxide, Total 25 mmol/L (Normal) Range: 18-29 Chloride, Serum 103 mmol/L (Normal) Range: 97-108 Potassium, Serum 3.8 mmol/L (Normal) Range: 3.5-5.2 Sodium, Serum 143 mmol/L (Normal) Range: 134-144 BUN/Creatinine Ratio 19 (Normal) Range: 11-26 eGFR If Africn Am 74 mL/min/1.73 (Normal) eGFR If NonAfricn Am 64 mL/min/1.73 (Normal) Creatinine, Serum 0.95 mg/dL (Normal) Range: 0.57-1.00 BUN 18 mg/dL (Normal) Range: 8-27 Glucose, Serum 103 mg/dL (Abnormal) Range: 65-99 45-Uty-591379:04 Urinalysis, Office (22326) UA - PH 6.0 (Normal) UA - LEUKOCYTE ESTERASE Negative (Normal) UA - NITRITE Negative (Normal) URINE UROBILINGN FRANKO TIMED 2 mg/dL (Normal) UA - PROTEIN Negative mg/dL (Normal) UA - BLOOD Negative (Normal) UA - SPECIFIC GRAVITY 1.025 (Normal) UA - KETONES Negative mg/dL (Normal) UA - BILIRUBIN Negative (Normal) UA - GLUCOSE Negative (Normal) 64-Jsq-38874:51 POTASSIUM SERUM (87807) Comments: today; PATIENT NOT FASTINGPERFORMED BY: [facility] Bowagb3596 [facility] [id number] Information: [id number] Potassium, Serum 3.8 mmol/L (Normal) Range: 3.5-5.2 6-Aks-000581:30 Basic Metabolic Profile (BMP) Comments: 'TROP' Serial specimen #1, #2, #3, or #4: 1'CKMB' Serial Specimen #1, #2 or #3? 1Test performed at:[facility] Mmecgtrlit[address] [facility] [place] [address] GAP 3 (Abnormal) Range: 5-15 CO2 34.0 mmol/L (Abnormal) Range: 21.0-32.0 CL 103 mmol/L (Normal) Range: 98-107 K 3.4 mmol/L (Abnormal) Range: 3.5-5.1 NA 140 mmol/L (Normal) Range: 136-145 CA 9.5 mg/dL (Normal) Range: 8.5-10.1 BUN/CRE 13.3 {RATIO} (Normal) Range: 10-20 EST GFR - AA 58 mL/min (Abnormal) EST GFR 48 mL/min (Abnormal) CREAT,SERUM 1.2 mg/dL (Abnormal) Range: 0.6-1.0 BUN 16 mg/dL (Normal) Range: 7-18 GLU 89 mg/dL (Normal) Range: 70-110 7-Yyx-559892:30 CBC W/Diff, Automated Comments: Test performed at:[facility] [address]tjyep[address] [facility] [place] [address] Absolute Lymph 2.01 {X10_3/ul} (Normal) Range: 0.83-4.51 Absolute Neut 3.2 {X10_3/uL} (Normal) Range: 2.0-7.7 IM GRAN % 0.200 % (Normal) Range: 0.0-0.9 Comments: IG% - Immature Granulocytes (promyelocytes, myelocytes andmetamyelocytes) > 1% indicates that a LEFT SHIFT is Present. BASO% 0.7 % (Normal) Range: 0-1 EO% 0.8 % (Normal) Range: 0-5 MONO% 11.5 % (Abnormal) Range: 0-10 LY% 33.4 % (Normal) Range: 19-41 NEUT% 53.4 % (Normal) Range: 47-70 MPV 12.9 fL (Abnormal) Range: 6.2-12.0 PLT 132 K/mm3 (Abnormal) Range: 150-450 RDW SD 47.6 fL (Abnormal) Range: 35.1-43.9 RDW CV 14.1 % (Normal) Range: 11.6-14.6 MCHC 32.8 {g/gl} (Normal) Range: 32-36 MCH 31.2 pg (Normal) Range: 27.0-32.0 MCV 95.1 fL (Normal) Range: 81-99 HCT 46.7 % (Normal) Range: 37-47 HGB 15.3 g/dL (Abnormal) Range: 12.0-15.0 RBC 4.91 {M/mm3} (Normal) Range: 4.2-5.4 WBC 6.0 K/mm3 (Normal) Range: 4.4-11.0 8-Vym-499235:30 CK-MB Quantitative and Index Comments: 'TROP' Serial specimen #1, #2, #3, or #4: 1'CKMB' Serial Specimen #1, #2 or #3? 1Test performed at:[facility] [address] [place] [address] CPKMB 0.8 ng/mL (Normal) Range: 0.0-5.0 Comments: CK-MB and RI Interpretation MB Relative Index Non-AMI <or= 5 NA Indeterminate > 5 <or= 4 AMI > 5 > 4 CPK TOTAL 64 U/L (Normal) Range: 26-192 6-Dzk-918626:30 D-Dimer Quantitative (DVT/PE) Comments: Test performed at:[facility] [address] [place], [place] [id number] D-DIMER QUANT 1.86 {FEU/ug/m} (Abnormal) Range: 0.27-0.49 Comments: D-Dimer ELEVATED (>0.49): Additional studies and clinicalassessments are indicated to conclude diagnosis of:Deep Vein Thrombosis (DVT) or Pulmonary Embolism (PE)CRITICAL VALUE REPEATED AND VERIFIED. CALLED TO SHRAVAN.RN07/23/14 1104 Ricci Delgado.RESULTS READ BACK BY SAME. 6-Dcp-860659:30 Troponin-I Comments: 'TROP' Serial specimen #1, #2, #3, or #4: 1'CKMB' Serial Specimen #1, #2 or #3? 1Test performed at:[facility] [address] [facility] [place], [place] [address] TROPONIN-I < 0.02 ng/mL (Normal) Comments: TROPONIN-I EXPECTED VALUES <0.05 NEGATIVE 0.06 - 0.59 AT RISK OF IA > OR = 0.60 SUGGEST IA :18 HgA1C , Office (91432) HgA1C , Office 5.7 % (Normal) Range: 4.6 - 7.1 :18 Blood Glucose , Office (93497) Blood Glucose , Office 106 (Normal) 36-Ksa-619574:20 CBCD ALC 2.30 {X10_3/ul} (Normal) Range: 0.83-4.51 ANC 2.6 {X10_3/uL} (Normal) Range: 2.0-7.7 IG% 0.200 % (Normal) Range: 0.0-0.9 Comments: IG% - Immature Granulocytes (promyelocytes, myelocytes andmetamyelocytes) > 1% indicates that a LEFT SHIFT is Present. B% 0.4 % (Normal) Range: 0-1 E% 2.2 % (Normal) Range: 0-5 M% 8.7 % (Normal) Range: 0-10 L% 41.9 % (Abnormal) Range: 19-41 N% 46.6 % (Abnormal) Range: 47-70 MPV 14.4 fL (Abnormal) Range: 6.2-12.0 PLT 128 K/mm3 (Abnormal) Range: 150-450 RDWSD 46.1 fL (Abnormal) Range: 35.1-43.9 RDWCV 13.3 % (Normal) Range: 11.6-14.6 MCHC 33.3 {g/gl} (Normal) Range: 32-36 MCH 31.8 pg (Normal) Range: 27.0-32.0 MCV 95.3 fL (Normal) Range: 81-99 HCT 46.2 % (Normal) Range: 37-47 HGB 15.4 g/dL (Abnormal) Range: 12.0-15.0 RBC 4.85 {M/mm3} (Normal) Range: 4.2-5.4 WBC 5.5 K/mm3 (Normal) Range: 4.4-11.0 :20 MRSA+SAID SCRN See Note (Normal) Comments: S. AUREUS S. aureus NegativeMRSA MRSA Negative 03-Zrl-617691:20 UAC Comments: ORDER URINE CULTUREIF POSITIVE NITRITE and 100 SANIA/uLOR>2+ BACTERIA, 100 SANIA/ul OR >10 WBC/hpfHow was Urine Obtained? CLEAN CATCH UMUC 1+ {/hpf} (Normal) UBAC 2+ {/hpf} (Normal) UEPIS 5-10 SEEN {/hpf} (Normal) Range: 5-10 URBC 0 SEEN {/hpf} (Normal) Range: 0-5 UWBC 10-25 SEEN {/hpf} (Normal) Range: 0-5 SANIA 500 /ul (Abnormal) UOB 10 /ul (Abnormal) BRITTANY Negative (Normal) UROBU 1 mg/dL (Abnormal) uPROTU Negative mg/dL (Normal) CHARY 6.5 (Normal) Range: 5.0 - 8.0 SGU 1.015 (Normal) Range: 1.002-1.030 KETU Negative mg/dL (Normal) BILIU Negative mg/dL (Normal) GLUR Normal mg/dL (Normal) UCLAR Cloudy (Normal) UCOL Yellow (Normal) :54 Blood Glucose , Office (01766) Blood Glucose , Office 123 (Normal) Comments: Not Fasting :54 HgA1C , Office (21024) HgA1C , Office 6.0 % (Normal) Range: 4.6 - 7.1 :31 POTASSIUM SERUM (40530) Comments: patient having drawn in 2 wks; PATIENT NOT FASTINGPERFORMED BY: LabCoChrist HospitalXgzfkz1676 [facility] [id number] Information: [id number] Potassium, Serum 4.0 mmol/L (Normal) Range: 3.5-5.2 :20 Microscopic Examination Comments: PATIENT WAS FASTINGPERFORMED BY: LabCoChrist HospitalKxogns9613 [facility] [id number] Bacteria Few (Normal) Mucus Threads Present (Normal) Epithelial Cells (non renal) >10 {/hpf} (Abnormal) Range: 0 - 10 RBC 3-10 {/hpf} (Abnormal) Range: 0 - 2 WBC 11-30 {/hpf} (Abnormal) Range: 0 - 5 :30 CBCD ALC 2.09 {X10_3/ul} (Normal) Range: 0.83-4.51 ANC 3.6 {X10_3/uL} (Normal) Range: 2.0-7.7 IG% 0.500 % (Normal) Range: 0.0-0.9 Comments: IG% - Immature Granulocytes (promyelocytes, myelocytes andmetamyelocytes) > 1% indicates that a LEFT SHIFT is Present. B% 0.5 % (Normal) Range: 0-1 E% 1.4 % (Normal) Range: 0-5 M% 10.4 % (Abnormal) Range: 0-10 L% 32.1 % (Normal) Range: 19-41 N% 55.1 % (Normal) Range: 47-70 MPV 13.8 fL (Abnormal) Range: 6.2-12.0 PLT 135 K/mm3 (Abnormal) Range: 150-450 RDWSD 45.3 fL (Abnormal) Range: 35.1-43.9 RDWCV 13.3 % (Normal) Range: 11.6-14.6 MCHC 34.2 {g/gl} (Normal) Range: 32-36 MCH 31.9 pg (Normal) Range: 27.0-32.0 MCV 93.1 fL (Normal) Range: 81-99 HCT 44.4 % (Normal) Range: 37-47 HGB 15.2 g/dL (Abnormal) Range: 12.0-15.0 RBC 4.77 {M/mm3} (Normal) Range: 4.2-5.4 WBC 6.5 K/mm3 (Normal) Range: 4.4-11.0 : CRE GFRAA 73 mL/min (Normal) CREAT 1.0 mg/dL (Normal) Range: 0.6-1.0 GFR 60 mL/min (Normal) : PT INR 0.9 (Normal) PTP 11.6 s (Abnormal) Range: 11.9-14.4 : PTT 27.1 s (Normal) Range: 24.1-36.2 :30 TSPAT Comments: Surgery Date: 01/04/14Hx of Preganancy in last 3 Months NoEver experience any problems with transfusion(s)? NHx of Transfusion in last 3 Months NReason for Type & Screen/Red Cells: SURGERYTime: 0600Other - use comments: UNKNOWNSURGICAL PROCEDURE: OTHER SC2 NEGATIVE (Normal) SC3 NEGATIVE (Normal) SC1 NEGATIVE (Normal) ABS NEGATIVE (Normal) BT A POSITIVE (Normal) :20 URINALYSIS, W/ MICRO (01294) Comments: PATIENT WAS FASTINGPERFORMED BY: [facility]6370 [facility] [id number] Microscopic Examination See below: (Normal) Comments: Microscopic was indicated and was performed. Nitrite, Urine Negative (Normal) Urobilinogen,Semi-Qn 1.0 mg/dL (Normal) Range: 0.0-1.9 Bilirubin Negative (Normal) Occult Blood Negative (Normal) Ketones Negative (Normal) Glucose Negative (Normal) Protein Trace (Normal) WBC Esterase 2+ (Abnormal) Appearance Clear (Normal) Urine-Color Yellow (Normal) pH 6.5 (Normal) Range: 5.0-7.5 Specific Husser 1.023 (Normal) Range: 1.005-1.030 :20 METABOLIC PANEL, COMPREHENSIVE Comments: PATIENT WAS FASTINGPERFORMED BY: [employer] Voopyb3732 [facility] [id number] (74682) ALT (SGPT) 20 [iU]/L (Normal) Range: 0-32 AST (SGOT) 21 [iU]/L (Normal) Range: 0-40 Alkaline Phosphatase, S 71 [iU]/L (Normal) Range: 39-117 Bilirubin, Total 0.4 mg/dL (Normal) Range: 0.0-1.2 A/G Ratio 1.7 (Normal) Range: 1.1-2.5 Globulin, Total 2.5 g/dL (Normal) Range: 1.5-4.5 Albumin, Serum 4.2 g/dL (Normal) Range: 3.6-4.8 Protein, Total, Serum 6.7 g/dL (Normal) Range: 6.0-8.5 Calcium, Serum 10.0 mg/dL (Normal) Range: 8.6-10.2 Carbon Dioxide, Total 26 mmol/L (Normal) Range: 18-29 Chloride, Serum 99 mmol/L (Normal) Range: 97-108 Potassium, Serum 3.4 mmol/L (Abnormal) Range: 3.5-5.2 Comments: Client Requested Flag Sodium, Serum 143 mmol/L (Normal) Range: 134-144 BUN/Creatinine Ratio 18 (Normal) Range: 11-26 eGFR If Africn Am 78 mL/min/1.73 (Normal) eGFR If NonAfricn Am 68 mL/min/1.73 (Normal) Creatinine, Serum 0.91 mg/dL (Normal) Range: 0.57-1.00 BUN 16 mg/dL (Normal) Range: 8-27 Glucose, Serum 106 mg/dL (Abnormal) Range: 65-99 44-Wkv-05759:20 LIPID PANEL (53011) Comments: PATIENT WAS FASTINGPERFORMED BY: [facility] Technologies[facility]6370 [facility] [id number] LDL/HDL Ratio 3.8 {ratio_units} (Abnormal) Range: 0.0-3.2 LDL Cholesterol Calc 145 mg/dL (Abnormal) Range: 0-99 VLDL Cholesterol José Luis 42 mg/dL (Abnormal) Range: 5-40 HDL Cholesterol 38 mg/dL (Abnormal) Comments: According to ATP-III Guidelines, HDL-C >59 mg/dL is considered anegative risk factor for CHD. Triglycerides 212 mg/dL (Abnormal) Range: 0-149 Cholesterol, Total 225 mg/dL (Abnormal) Range: 100-199 :20 CBC WITH MANUAL DIFF Comments: PATIENT WAS FASTINGPERFORMED BY: LabCoChrist HospitalIkxpau7479 [facility] [id number] Information: [id number] (65227) Immature Grans (Abs) 0.0 {x10E3/uL} (Normal) Range: 0.0-0.1 Immature Granulocytes 0 % (Normal) Baso (Absolute) 0.0 {x10E3/uL} (Normal) Range: 0.0-0.2 Eos (Absolute) 0.2 {x10E3/uL} (Normal) Range: 0.0-0.4 Monocytes(Absolute) 0.7 {x10E3/uL} (Normal) Range: 0.1-0.9 Lymphs (Absolute) 2.6 {x10E3/uL} (Normal) Range: 0.7-3.1 Neutrophils (Absolute) 3.1 {x10E3/uL} (Normal) Range: 1.4-7.0 Basos 1 % (Normal) Eos 2 % (Normal) Monocytes 10 % (Normal) Lymphs 40 % (Normal) Neutrophils 47 % (Normal) Platelets 150 {x10E3/uL} (Normal) Range: 150-379 RDW 14.0 % (Normal) Range: 12.3-15.4 MCHC 32.6 g/dL (Normal) Range: 31.5-35.7 MCH 30.8 pg (Normal) Range: 26.6-33.0 MCV 94 fL (Normal) Range: 79-97 Hematocrit 45.1 % (Normal) Range: 34.0-46.6 Hemoglobin 14.7 g/dL (Normal) Range: 11.1-15.9 RBC 4.78 {x10E6/uL} (Normal) Range: 3.77-5.28 WBC 6.6 {x10E3/uL} (Normal) Range: 3.4-10.8 :09 HgA1C , Office (83254) HgA1C , Office 5.8 % (Normal) Range: 4.6 - 7.1 :09 Blood Glucose , Office (42092) Blood Glucose , Office 129 (Normal) Comments: not fasting :17 CMP GAP 4 (Abnormal) Range: 5-15 CO2 32.0 mmol/L (Normal) Range: 21.0-32.0 CL 106 mmol/L (Normal) Range: 98-107 K 3.9 mmol/L (Normal) Range: 3.5-5.1 NA 142 mmol/L (Normal) Range: 136-145 BIT 0.40 mg/dL (Normal) Range: 0.00-1.00 ALT 40 U/L (Normal) Range: 12-78 ALK 70 U/L (Normal) Range: 50-136 AST 18 U/L (Normal) Range: 15-37 AG 0.9 {RATIO} (Normal) Range: 0.9-2.4 CA 9.3 mg/dL (Normal) Range: 8.5-10.1 ALB 3.4 g/dL (Normal) Range: 3.4-5.0 GLOB 4.0 g/dL (Normal) Range: 2.7-4.2 TPROT 7.4 g/dL (Normal) Range: 6.4-8.2 BC 20.0 {RATIO} (Normal) Range: 10-20 GFRAA 73 mL/min (Normal) GFR 60 mL/min (Normal) BUN 20 mg/dL (Abnormal) Range: 7-18 CREAT 1.0 mg/dL (Normal) Range: 0.6-1.0 GLU 99 mg/dL (Normal) Range: 70-110 :17 HgA1C , Office (33505) HgA1C , Office 5.9 % (Normal) Range: 4.6 - 7.1 :17 Blood Glucose , Office (90670) Blood Glucose , Office 107 (Normal) :15 PROL 10.4 ng/mL (Normal) Comments: NORMAL REFERENCE RANGESFEMALENON- 2.2 - 30.3 ng/mL 8.1 - 347.6 ng/mLPOST- MENOPAUSAL 0.7 - 31.5 ng/mLMALE 2.5 - 17.4 ng/mLNEW TEST METHO D & REFERENCE RANGES NOVEMBER 09, 2011; ADDENDA: has f/u on 06/08/13, will review then 67-Hhz-78851:28 BILAT SCRN DIGITAL & CAD Radiology Report See Note Comments: MAMMOGRAPHY - BILATERAL SCREENING REASON FOR EXAM: Female, 63 years old. Routine annual screeningexamination. PERTINENT HISTORY: Non-contributory. TECHNIQUE: Digital examination. Med iolateral ob (Normal) lique (MLO) andcraniocaudad (CC) views of both breasts were obtained. CAD: CAD wasperformed on this study. COMPARISON: Comparison is made with prior examination dated January 17nd November 03, 2010.____ FINDINGS:The breast composition is composed of scattered fibroglandular tissuesranging from 25% to 50% of the breast. There are no dominant masses or suspicious calcifica tions. No other significant abnormalities are identified. There has been nosignificant change since the prior study. IMPRESSION:Stable bilateral screening mammogram. Yearly follow-up recommended. (A) ASSESSMENT CATEGORY:BIRADS Category 2: Benign finding(s). A letter regarding these resultswill be sent to the patient by the [facility] within 30 days. Approximately 10% of breast cancers are not detected by mammography. Anormal mammogram should not delay biopsy of a clinically suspiciousabnormality. Signed:Payton DuttaMarch 15, 2013 at 7:58:55 AM [id number] Signed GP/GP If you are the referring physician and would like to consult with theradiologist who provided this interpretation, please co ntact Unique Yusuf at [phone]. If this radiologist is unavailable, youwill be directed to another radiologist to assist. If you are a patient with a question regarding this report, pleas econtactyour referring physician directly. Professional Interpretation Provided By: [place], Phone , These documents contain legally protected and confidential healthin formation intended only for the use of the individual or entity namedabove. If you are not the intended recipient, you are hereby notifiedthatany disclosure, copying, distribution, or other use of these documents isstrictly prohibited. If you have received this information in error,pleasenotify the sender immediately and arrange for the return or destructionofthese documents. Dictated on 03/15/13 0 758 by Damian FLYNN,Galiranscribed on 03/15/13 0836 by ITS IMPORTSign by Aaron Salgado MD on 03/15/13 0837 Sign by: Aaron Salgado MD [id number] Blood Glucose , Office (98320) Blood Glucose , Office 134 (Normal) :25 HgA1C , Office (50896) HgA1C , Office 5.8 % (Normal) Range: 4.6 - 7.1 [id number] PELVIC (NON ) Radiology Report See Note Comments: PROCEDURE: ULTRASOUND OF THE FEMALE PELVIS - COMPLETE REASON FOR EXAM: Female, 62 years old. LMP: The patient ispostmenopausal. Postmenopausal bleeding. TECHNIQUE: Transabdominal and Transvagin (Normal) al TECHNICAL QUALITY: Adequate. COMPARISON: None. FINDINGS:The uterus is anteverted and is tilted to the left side of the pelvis.Theuterus measures 7.6 cm x 4.7 cm by 2.5 cm. There are nabothian cysts.Theendometrium measures 4.0 mm in thickness, and is hyperechoic. There isnodemonstrated endometrial mass. The uterus is of heterogeneous echotexture. This is in keeping with fibroid change. There is evidence of a1.9 cm x 2 cm x 1.3 cm fibroid on the tear wall of the uterus. I.U.D. -No The right ovary is visualized. The right ovary measures 2.9 cm x 1.8 cmby 1.4 cm. There is no right ovarian cyst or ovarian mass. There is novisualized right adnexal mass or complex lesion. There is normal arterialand normal venous vascularity. The left ovary is visualized. The left ovary measures 2.6 cm x 1.9 cm by1.7 cm. There is no left ovarian cyst or ovarian mass. There is novisualized left adnexal mass or complex lesion. There is normal arterialand normal venous vascularity. There is no fluid in the cul-de-sac. The distended urinary bladder had a volume of 391 ml at the time of theexam. IMPRESSION:Fibroid uterus. Signed:Joy Salgado M.D.January 23, 2013 at 2:31:38 PM [id number] Signed GP/GP If you are the referring physician and would like to consult with theradiologist who provided this interpretati on, please contact Unique Yusuf at [phone]. If this radiologist is unavailable, youwill be directed to another radiologist to assist. If you are a patient with a question regarding this report, pleasecontactyour referring physician directly. Professional Interpretation Provided By: [employer], Phone , These documents contain legally protected and confiden tial healthinformation intended only for the use of the individual or entity namedabove. If you are not the intended recipient, you are hereby notifiedthatany disclosure, copying, distribution, or other use of these documents isstrictly prohibited. If you have received this information in error,pleasenotify the sender immediately and arrange for the return or destructionofthese documents. Dictated on 01/23/13 1431 by Luna Salgado MDribed on 01/24/13 1058 by ITS IMPORTSign by Aaron Salgado MD on 01/24/13 1059 Sign by: Aaron Salgado MD :56 ABDOMEN COMPLETE Radiology Report See Note Comments: PROCEDURE: ABDOMINAL ULTRASOUND REASON FOR EXAM: Female, 62 years old. Abdominal cramping. TECHNIQUE: Transabdominal ultrasound was performed with real-time andstatic olivas scale imaging. TECHNICA (Normal) L QUALITY: Adequate. COMPARISON: None. FINDINGS: Liver: The liver measures 17.2 cm. There is increased echogenicityconsistent with fatty infiltration. The bile ducts are within normallimits. There is hepatic color flow. The direction of portal flow ishepatopetal. There is no demonstrated mass lesion. Gallbladder: The patient is status post cholecystectomy . Common Bile Duct (C.B.D.): The common bile duct measures 4.0 mm. Pancreas: Normal size of the head, body and tail of the pancreas.Thereis normal echogenicity of the pancreas. There is no demonst ratedpancreatic mass or cyst. Spleen: Normal size of the spleen. The spleen measures 10.1 cm x 4.3 cmby 3.8 cm. Right Kidney: Normal size of the right kidney. The right toeteagouaiauq91.4 cm. Ambika l renal cortex. The right cortex measures 1.0 cm. Thereisa 1.1 cm x 1.0 cm x 0.9 cm cyst in the inferior pole. There is no righthydronephrosis. Left Kidney: Normal size of the left kidney. The left kidney pcenxmhq08.5cm. Normal renal cortex. The left cortex measures 1.9 cm. There is nodemonstrated renal mass or cyst. There is no left hydronephrosis. Aorta: Unremarkable. I.V.C.: The IVC is pa tent. There is no ascites. IMPRESSION:Fatty infiltration of the liver. The patient is status postcholecystectomy. Signed:Aaron Salgado M.D.January 23, 2013 at 2:2 8:11 PM [id number] Signed GP/GP If you are the referring physician and would like to consult with theradiologist who provided this interpretation, please contact Payton Yusuf at [phone]. If this radiologist is unavailable, youwill be directed to another radiologist to assist. If you are a patient with a question regarding this report, pleasecontactyour referring phys ician directly. Professional Interpretation Provided By: [employer], Phone , These documents contain legally protected and confidential healthinformation intended only for the use of the individual or entity namedabove. If you are not the intended recipient, you are hereby notifiedthatany disclosure, copying, distribution, or other use of these documents isstrictly prohi bited. If you have received this information in error,pleasenotify the sender immediately and arrange for the return or destructionofthese documents. Dictated on 01/23/13 1428 by Solomon Salgado MDscribed on 01/24/13 1040 by ITS IMPORTSign by Aaron Salgado MD on 01/24/13 1041 Sign by: Aaron Salgado MD 23-Jan-20130:00 TRANSVAGINAL NON- Radiology Report See Note Comments: PROCEDURE: ULTRASOUND OF THE FEMALE PELVIS - COMPLETE REASON FOR EXAM: Female, 62 years old. LMP: The patient ispostmenopausal. Postmenopausal bleeding. TECHNIQUE: Transabdominal and Transvagin (Normal) al TECHNICAL QUALITY: Adequate. COMPARISON: None. FINDINGS:The uterus is anteverted and is tilted to the left side of the pelvis.Theuterus measures 7.6 cm x 4.7 cm by 2.5 cm. There are nabothian cysts.Theendometrium measures 4.0 mm in thickness, and is hyperechoic. There isnodemonstrated endometrial mass. The uterus is of heterogeneous echotexture. This is in keeping with fibroid change. There is evidence of a1.9 cm x 2 cm x 1.3 cm fibroid on the tear wall of the uterus. I.U.D. -No The right ovary is visualized. The right ovary measures 2.9 cm x 1.8 cmby 1.4 cm. There is no right ovarian cyst or ovarian mass. There is novisualized right adnexal mass or complex lesion. There is normal arterialand normal venous vascularity. The left ovary is visualized. The left ovary measures 2.6 cm x 1.9 cm by1.7 cm. There is no left ovarian cyst or ovarian mass. There is novisualized left adnexal mass or complex lesion. There is normal arterialand normal venous vascularity. There is no fluid in the cul-de-sac. The distended urinary bladder had a volume of 391 ml at the time of theexam. IMPRESSION:Fibroid uterus. Signed:Joy Salgado M.D.January 23, 2013 at 2:31:38 PM [id number] Signed GP/GP If you are the referring physician and would like to consult with theradiologist who provided this interpretati on, please contact Unique Yusuf at [phone]. If this radiologist is unavailable, youwill be directed to another radiologist to assist. If you are a patient with a question regarding this report, pleasecontactyour referring physician directly. Professional Interpretation Provided By: [employer], Phone , These documents contain legally protected and confiden tial healthinformation intended only for the use of the individual or entity namedabove. If you are not the intended recipient, you are hereby notifiedthatany disclosure, copying, distribution, or other use of these documents isstrictly prohibited. If you have received this information in error,pleasenotify the sender immediately and arrange for the return or destructionofthese documents. Dictated on 01/23/13 1431 by Damian FLYNN,DavidrieleTranscribed on 01/24/13 1042 by ITS IMPORTSign by Damian FLYNN,Aaron on 01/24/13 1043 Sign by: Aaron Salgado MD 07-Sdd-859427:11 CBC, Platelets & Auto Comments: PATIENT NOT FASTINGPERFORMED BY: [facility]Snwaqh6[facility] [id number] Information: [id number] Diff ([id number]) Immature Grans (Abs) 0.0 {x10E3/uL} (Normal) Range: 0.0-0.1 Immature Granulocytes 0 % (Normal) Range: 0-2 Baso (Absolute) 0.0 {x10E3/uL} (Normal) Range: 0.0-0.2 Eos (Absolute) 0.1 {x10E3/uL} (Normal) Range: 0.0-0.4 Monocytes(Absolute) 0.8 {x10E3/uL} (Normal) Range: 0.1-1.0 Lymphs (Absolute) 2.6 {x10E3/uL} (Normal) Range: 0.7-4.5 Neutrophils (Absolute) 5.3 {x10E3/uL} (Normal) Range: 1.8-7.8 Basos 0 % (Normal) Range: 0-3 Eos 1 % (Normal) Range: 0-7 Monocytes 9 % (Normal) Range: 4-13 Lymphs 29 % (Normal) Range: 14-46 Neutrophils 61 % (Normal) Range: 40-74 Platelets 146 {x10E3/uL} (Normal) Range: 140-415 RDW 13.8 % (Normal) Range: 12.3-15.4 MCHC 32.6 g/dL (Normal) Range: 31.5-35.7 MCH 31.4 pg (Normal) Range: 26.6-33.0 MCV 97 fL (Normal) Range: 79-97 Hematocrit 43.9 % (Normal) Range: 34.0-46.6 Hemoglobin 14.3 g/dL (Normal) Range: 11.1-15.9 RBC 4.55 {x10E6/uL} (Normal) Range: 3.77-5.28 WBC 8.8 {x10E3/uL} (Normal) Range: 4.0-10.5 :45 CMP GAP 6 (Normal) Range: 5-15 CL 102 mmol/L (Normal) Range: 98-107 CO2 32.0 mmol/L (Normal) Range: 21.0-32.0 K 4.3 mmol/L (Normal) Range: 3.5-5.1 NA 140 mmol/L (Normal) Range: 136-145 BIT 0.50 mg/dL (Normal) Range: 0.00-1.00 ALT 54 U/L (Normal) Range: 12-78 ALK 77 U/L (Normal) Range: 50-136 AST 28 U/L (Normal) Range: 15-37 CA 9.1 mg/dL (Normal) Range: 8.5-10.1 AG 1.0 {RATIO} (Normal) Range: 0.9-2.4 GLOB 4.0 g/dL (Normal) Range: 2.7-4.2 ALB 3.8 g/dL (Normal) Range: 3.4-5.0 BC 15.4 {RATIO} (Normal) Range: 10-20 TPROT 7.8 g/dL (Normal) Range: 6.4-8.2 GFRAA 53 mL/min (Abnormal) GFR 44 mL/min (Abnormal) CREAT 1.3 mg/dL (Abnormal) Range: 0.6-1.0 BUN 20 mg/dL (Abnormal) Range: 7-18 GLU 99 mg/dL (Normal) Range: 70-110 :33 HgA1C , Office (91835) HgA1C , Office 5.8 % (Normal) Range: 4.6 - 7.1 :53 METABOLIC PANEL, COMPREHENSIVE Comments: PATIENT WAS FASTINGPERFORMED BY: [facility] HospitalKilxpn0563 [facility] [id number] ([id number]) ALT (SGPT) 19 [iU]/L (Normal) Range: 0-32 AST (SGOT) 17 [iU]/L (Normal) Range: 0-40 Alkaline Phosphatase, S 73 [iU]/L (Normal) Range: 25-165 Bilirubin, Total 0.5 mg/dL (Normal) Range: 0.0-1.2 A/G Ratio 1.4 (Normal) Range: 1.1-2.5 Globulin, Total 3.0 g/dL (Normal) Range: 1.5-4.5 Albumin, Serum 4.3 g/dL (Normal) Range: 3.6-4.8 Protein, Total, Serum 7.3 g/dL (Normal) Range: 6.0-8.5 Calcium, Serum 10.1 mg/dL (Normal) Range: 8.6-10.2 Carbon Dioxide, Total 27 mmol/L (Normal) Range: 20-32 Chloride, Serum 102 mmol/L (Normal) Range: 97-108 Potassium, Serum 3.6 mmol/L (Normal) Range: 3.5-5.2 Sodium, Serum 143 mmol/L (Normal) Range: 134-144 BUN/Creatinine Ratio 15 (Normal) Range: 11-26 eGFR If Africn Am 64 mL/min/1.73 (Normal) eGFR If NonAfricn Am 55 mL/min/1.73 (Abnormal) Creatinine, Serum 1.09 mg/dL (Abnormal) Range: 0.57-1.00 BUN 16 mg/dL (Normal) Range: 8-27 Glucose, Serum 88 mg/dL (Normal) Range: 65-99 66-Dag-416756:53 CBC WITH MANUAL DIFF Comments: PATIENT WAS FASTINGPERFORMED BY: [facility]Co[facility] HospitalOydazn3660 [facility] [id number] Information: [id number] ([id number]) Immature Grans (Abs) 0.0 {x10E3/uL} (Normal) Range: 0.0-0.1 Immature Granulocytes 0 % (Normal) Range: 0-2 Baso (Absolute) 0.0 {x10E3/uL} (Normal) Range: 0.0-0.2 Eos (Absolute) 0.2 {x10E3/uL} (Normal) Range: 0.0-0.4 Monocytes(Absolute) 0.6 {x10E3/uL} (Normal) Range: 0.1-1.0 Lymphs (Absolute) 2.8 {x10E3/uL} (Normal) Range: 0.7-4.5 Neutrophils (Absolute) 3.9 {x10E3/uL} (Normal) Range: 1.8-7.8 Basos 0 % (Normal) Range: 0-3 Eos 2 % (Normal) Range: 0-7 Monocytes 8 % (Normal) Range: 4-13 Lymphs 37 % (Normal) Range: 14-46 Neutrophils 53 % (Normal) Range: 40-74 Platelets 145 {x10E3/uL} (Normal) Range: 140-415 RDW 13.5 % (Normal) Range: 12.3-15.4 MCHC 33.7 g/dL (Normal) Range: 31.5-35.7 MCH 31.5 pg (Normal) Range: 26.6-33.0 MCV 93 fL (Normal) Range: 79-97 Hematocrit 44.2 % (Normal) Range: 34.0-46.6 Hemoglobin 14.9 g/dL (Normal) Range: 11.1-15.9 RBC 4.73 {x10E6/uL} (Normal) Range: 3.77-5.28 WBC 7.5 {x10E3/uL} (Normal) Range: 4.0-10.5 32-Utq-703020:53 LIPID PANEL ([id number]) Comments: PATIENT WAS FASTINGPERFORMED BY: [facility] [id number] LDL/HDL Ratio 3.3 {ratio_units} (Abnormal) Range: 0.0-3.2 LDL Cholesterol Calc 136 mg/dL (Abnormal) Range: 0-99 HDL Cholesterol 41 mg/dL (Normal) Comments: According to ATP-III Guidelines, HDL-C >59 mg/dL is considered anegative risk factor for CHD. VLDL Cholesterol José Luis 45 mg/dL (Abnormal) Range: 5-40 Triglycerides 226 mg/dL (Abnormal) Range: 0-149 Cholesterol, Total 222 mg/dL (Abnormal) Range: 100-199 :51 BILAT SCRN DIGITAL & CAD Radiology Report See Note (Normal) Comments: MAMMOGRAPHY - BILATERAL SCREENING REASON FOR EXAM: Female, 61 years old. Routine annual screeningexamination. PERTINENT HISTORY: Non-contributory. TECHNIQUE: Digital examination. Med iolateral ob lique (MLO) andcraniocaudad (CC) views of both breasts were obtained. CAD: CAD wasperformed on this study. COMPARISON: Comparison is made with prior study dated November 03, 2010. FINDINGS:The breast compo sition is composed of scattered fibroglandular densities. There are no dominant masses or suspicious calcifications. No other significant abnormalities are identified. There has been nosignificant fleming ge since the prior study. IMPRESSION:Stable bilateral screening mammogram. Yearly follow-up recommended. (A) ASSESSMENT CATEGORY:BIRADS Category 2: Benign finding(s). A letter regarding these resul tswill be sent to the patient by the facility within 30 days. Approximately 10% of breast cancers are not detected by mammography. Anormal mammogram should not delay biopsy of a clinically suspiciousab normality. Signed:Aaron Salgado M.D.January 18, 2012 at 10:04:04 AM [id number] Signed GP/GP If you are the referring physician and would like to consult with theradiologist who pro vided this interpretation, please contact Unique Yusuf at [phone]. If this radiologist is unavailable, youwill be directed to another radiologist to assist. If you are a patient with a q uestion regarding this report, pleasecontactyour referring physician directly. Professional Interpretation Provided By: [employer], Phone , Dictated on 01/18/12 0759 by Damian FLYNN,Lauritascribed on 01/18/12 1010 by ITS IMPORTSign by Aaron Salgado MD on 01/18/12 1011 Sign by: Aaron Salgado MD 4-Lbo-077822:43 MICROALBUMIN: CREATININE RATIO Comments: PATIENT WAS FASTINGPERFORMED BY: [facility] [id number] ([id number]) AND (20800) Microalb/Creat Ratio 1.4 {mg/g_creat} (Normal) Range: 0.0-30.0 Microalbumin, Urine 2.3 ug/mL (Normal) Range: 0.0-17.0 Creatinine, Urine 167.9 mg/dL (Normal) Range: 15.0-278.0 :43 METABOLIC PANEL, COMPREHENSIVE Comments: PATIENT WAS FASTINGPERFORMED BY: JERMAINE [facility] [id number] (28022) ALT (SGPT) 24 [iU]/L (Normal) Range: 0-40 AST (SGOT) 23 [iU]/L (Normal) Range: 0-40 Alkaline Phosphatase, S 66 [iU]/L (Normal) Range: 25-150 Bilirubin, Total 0.5 mg/dL (Normal) Range: 0.0-1.2 A/G Ratio 1.3 (Normal) Range: 1.1-2.5 Globulin, Total 2.9 g/dL (Normal) Range: 1.5-4.5 Albumin, Serum 3.8 g/dL (Normal) Range: 3.5-5.5 Protein, Total, Serum 6.7 g/dL (Normal) Range: 6.0-8.5 Calcium, Serum 9.5 mg/dL (Normal) Range: 8.7-10.2 Carbon Dioxide, Total 26 mmol/L (Normal) Range: 20-32 Chloride, Serum 101 mmol/L (Normal) Range: 97-108 Potassium, Serum 3.6 mmol/L (Normal) Range: 3.5-5.2 Sodium, Serum 144 mmol/L (Normal) Range: 134-144 BUN/Creatinine Ratio 15 (Normal) Range: 9-23 eGFR If Africn Am 66 mL/min/1.73 (Normal) eGFR If NonAfricn Am 57 mL/min/1.73 (Abnormal) Creatinine, Serum 1.07 mg/dL (Abnormal) Range: 0.57-1.00 BUN 16 mg/dL (Normal) Range: 6-24 Glucose, Serum 95 mg/dL (Normal) Range: 65-99 8-Wlk-203300:43 LIPID PANEL (27637) Comments: PATIENT WAS FASTINGPERFORMED BY: JERMAINE [facility] [id number] LDL/HDL Ratio 3.2 {ratio_units} (Normal) Range: 0.0-3.2 LDL Cholesterol Calc 115 mg/dL (Abnormal) Range: 0-99 VLDL Cholesterol José Luis 29 mg/dL (Normal) Range: 5-40 HDL Cholesterol 36 mg/dL (Abnormal) Comments: According to ATP-III Guidelines, HDL-C >59 mg/dL is considered anegative risk factor for CHD. Triglycerides 146 mg/dL (Normal) Range: 0-149 Cholesterol, Total 180 mg/dL (Normal) Range: 100-199 7-Uhi-233139:43 CBC WITH MANUAL DIFF Comments: PATIENT WAS FASTINGPERFORMED BY: [facility] [id number] Information: [id number] (56927) Immature Grans (Abs) 0.0 {x10E3/uL} (Normal) Range: 0.0-0.1 Immature Granulocytes 0 % (Normal) Range: 0-2 Baso (Absolute) 0.0 {x10E3/uL} (Normal) Range: 0.0-0.2 Eos (Absolute) 0.1 {x10E3/uL} (Normal) Range: 0.0-0.4 Monocytes(Absolute) 0.6 {x10E3/uL} (Normal) Range: 0.1-1.0 Lymphs (Absolute) 2.2 {x10E3/uL} (Normal) Range: 0.7-4.5 Neutrophils (Absolute) 3.0 {x10E3/uL} (Normal) Range: 1.8-7.8 Basos 0 % (Normal) Range: 0-3 Eos 2 % (Normal) Range: 0-7 Monocytes 10 % (Normal) Range: 4-13 Lymphs 37 % (Normal) Range: 14-46 Neutrophils 51 % (Normal) Range: 40-74 Platelets 127 {x10E3/uL} (Abnormal) Range: 140-415 RDW 14.2 % (Normal) Range: 11.7-15.0 MCHC 32.8 g/dL (Normal) Range: 32.0-36.0 MCH 31.4 pg (Normal) Range: 27.0-34.0 MCV 96 fL (Normal) Range: 80-98 Hematocrit 44.8 % (Abnormal) Range: 34.0-44.0 Comments: Effective November 23, 2011, the reference intervals for CBC RBC Hemogram Parameters (RBC, Hgb, Hct, MCV, MCH, MCHC, and RDW) will be adjusted to maintain consistency with the distribution of these values in the reference population. Hemoglobin 14.7 g/dL (Normal) Range: 11.5-15.0 Comments: Effective November 23, 2011, the reference intervals for CBC RBC Hemogram Parameters (RBC, Hgb, Hct, MCV, MCH, MCHC, and RDW) will be adjusted to maintain consistency with the distribution of these values in the reference population. RBC 4.68 {x10E6/uL} (Normal) Range: 3.80-5.10 Comments: Effective November 23, 2011, the reference intervals for CBC RBC Hemogram Parameters (RBC, Hgb, Hct, MCV, MCH, MCHC, and RDW) will be adjusted to maintain consistency with the distribution of these values in the reference population. WBC 5.9 {x10E3/uL} (Normal) Range: 4.0-10.5 17-Ylq-071847:18 HgA1C , Office (56409) HgA1C , Office 6.1 % (Normal) Range: 4.6 - 7.1 93-Skq-222241:18 Blood Glucose , Office (02283) Blood Glucose , Office 125 (Normal) 67-Xba-065007:00 Thin prep Pap Comments: Source.............Cervical;EndocervicalNo. of containers..01 CYTYC Thin Prep VialPATIENT NOT FASTINGPERFORMED BY: [facility] [id number] Information: [id number] ([id number]) Note: PAPSMR (Normal) Comments: The Pap smear is a screening test designed to aid in the detection ofpremalignant and malignant conditions of the uterine cervix. It is not adiagnostic procedure and should not be used as the sole mean s of detectingcervical cancer. Both false-positive and false-negative reports do occur. .This liquid based ThinPrep(R) pap test w as screened with theuse of an image guided system.The HPV DNA reflex criteria were not met with this specimen resulttherefore, no HPV testing was performed. . See Note . (Normal) DIAGNOSIS: SPRCS (Normal) Comments: NEGATIVE FOR INTRAEPITHELIAL LESION AND MALIGNANCY.Satisfactory for evaluation. Endocervical and/or squamous metaplasticcells (endocervical component) are present.V72.31 ; Routine gynecolog ical examina Imelda Batres Development Director (ASCP) 53-Qme-30264:00 THU LEZAMA DIGITAL & CAD Radiology Report See Note (Normal) Comments: MAMMOGRAPHY - BILATERAL SCREENING INDICATION:Female, 60 years old. Routine annual screening examination. PERTINENT HISTORY:Non-contributory. TECHNIQUE:Digital examination. Mediolateral oblique (MLO) a nd craniocaudad (CC)views of both breasts were obtained. CAD: CAD was performed on thisstudy. COMPARISON:Comparison is made with prior examination dated February 14, 2009. FINDINGS:The breast composition is composed of scattered fibroglandular densities. There are no masses or suspicious microcalcifications. No other significant abnormalities are identified. There has been nosignificant change since prior study. IMPRESSION:Normal bilateral screening mammogram. One year follow-up recommended. (1) ASSESSMENT CATEGORY:BIRADS Category 2: Benign finding(s). A letter regarding these resultswill be s ent to the patient by the facility within 30 days. Approximately 10% of breast cancers are not detected by mammography. Anormal mammogram should not delay biopsy of a clinically suspiciousabnormality. Dictated on 11/03/10 0608 by Damian FLYNN,Galiranscribed on 11/04/10 0619 by ITS IMPORTSign by Aaron Salgado MD on 11/04/10 0620 Sign by: __ Aaron Salgado MD 8-Szn-942461:24 CBC & PLATELETS (AUTO) Comments: PATIENT NOT FASTINGPERFORMED BY: [facility] HospitalOtxkie09[facility] [id number] Information: [id number]; appt 11/28/10 (81251) MCH 31.6 pg (Normal) Range: 27.0-34.0 MCHC 33.2 g/dL (Normal) Range: 32.0-36.0 Platelets 177 {x10E3/uL} (Normal) Range: 140-415 RDW 13.8 % (Normal) Range: 11.7-15.0 Hematocrit 45.2 % (Abnormal) Range: 34.0-44.0 MCV 95 fL (Normal) Range: 80-98 Hemoglobin 15.0 g/dL (Normal) Range: 11.5-15.0 RBC 4.75 {x10E6/uL} (Normal) Range: 3.80-5.10 WBC 5.9 {x10E3/uL} (Normal) Range: 4.0-10.5 :45 NMR LIPOPROFILE LP-IR SCORE 69 (Normal) Comments: LP-IR Score is inaccurate if patient is non-fasting.The LP-IR Score combines information from lipoproteinparticle concentration and size to give improvedassessment of insulin resistance and diabetes ris k.Small LDL-P, LDL Particle Size, HDL-Particle, andLP-IR Score have been validated by [employer]but not cleared by US FDA; the clinical utilityof these test results has not been fully established.INSUL IN RESISTANCE MARKER <--Insulin Sensitive Insulin Resistant--> Percentile in Reference PopulationInsulin Resistance ScoreLP-IR Score Low 25th 50th 75th High <27 27 45 63 >63Performed at: [facility] [place], [place] [id number] Director: Stefano Mace PhD, Phone: [phone] HDL SIZE <TEST NOT PERFORMED> (Normal) INSULIN RES SC <TEST NOT PERFORMED> (Normal) LDL SIZE <TEST NOT PERFORMED> (Normal) VLDL SIZE <TEST NOT PERFORMED> (Normal) INS RES/DIAB RK . (Normal) LARGE HDL-P <TEST NOT PERFORMED> (Normal) LARGE VLDL-P <TEST NOT PERFORMED> (Normal) SMALL LDL-P <TEST NOT PERFORMED> (Normal) LDL SIZE 21.2 nm (Normal) Comments: Small LDL-P and LDL Size are associated with CVD risk, butnot after LDL-P is taken into account. INTERPRETATIVE INFORMATION* PARTICLE CONCENTRATION AND SIZE <--Lower CVD Risk Higher CVD Risk--> LDL AND HDL PARTICLES Percentile in Reference Population HDL-P (total) High 75th 50th 25th Low >34.9 34.9 30.5 26.7 <26.7 . Small LDL-P Low 25th 50th 75th High <117 117 527 839 >839 . LDL Size <-Large (Pattern A)-> <-Small (Pattern B)-> 23.0 20.6 20.5 19.0 SMALL LDL-P 720 nmol/L (Abnormal) HDL-P TOTAL 29.3 umol/L (Abnormal) LD HD PARTICLES . (Normal) LDL-P 1720 nmol/L (Abnormal) Comments: Low < 1000 Moderate 1000 - 1299 Borderline-High 1300 - 1599 High 1600 - 2000 Very High > 2000 TRIGLYCERIDES 170 mg/dL (Abnormal) HDL-C 40 mg/dL (Normal) LDL-C 135 mg/dL (Abnormal) Comments: LDL-C is inaccurate if patient is nonfasting. . Optimal < 100 Above optimal 100 - 129 Borderline 130 - 159 High 160 - 189 Very high > 189 . CHOLESTEROL TOT 209 mg/dL (Abnormal) LIPIDS . (Normal) 0-Pwu-012078:12 CULT, DP WOUND Comments: COMMENTS: CULTURE, SENSITIVITY,AREOBES, ANAEROBES, GRAMSTAINSPECIMEN DESCRIPTION: CONTENTS ANAEROBIC CULT See Note (Normal) Comments: ARIEL (REPORTABLE) NEGATIVE AMOUNT GROWTH 1+ AMOUNT GROWTH RARE ORGANISM 1: PROPIONIBACTERIUM ACNESORGANISM 2: PEPTOSTREPTOCOCCUS SPECIES GRAM STAIN See Note (Normal) Comments: GRAM STAIN3+ RED BLOOD CELLSRARE EPITHELIAL CELLSNO ORGANISMS SEEN WOUND CULTURE See Note (Normal) Comments: AMOUNT GROWTH 1+ ORGANISM 1: STAPHYLOCOCCUS AUREUS STAPHYLOCOCCUS AUREUS: REACTIONBENZYLPENICILLIN - 0.12 RCEFAZOLIN *See Comment $ S* SCEFOXITIN SCREEN (NF) $ Neg - CIPROFLOXACIN GP (IV/NF) $$ <=0.5 SCLINDAMYCIN $$ <=0.25 SINDUCIBLE CC RESISTANC E (NF)$ Neg -ERYTHROMYCIN $$ <=0.25 SGENTAMICIN GP $ <=0.5 SLEVOFLOXACIN $ 0.25 SLINEZOLID $$$ 2 SMOXIFLOXICIN (NF) $$ <=0.25 SOXACILLIN $$ <=0.25 STIGECYCLINE (NF) $$$ <=0.12 SQUINUPRISTI N/DALFOPRI (NF) $$$ <=0.25 SRIFAMPICIN $ <=0.5 STETRACYCLINE $ <=1 STRIMETHOPRIM/SULFAMETHOXAZ $ <=10 SVANCOMYCIN $ 1 S 1-Yyb-025700:10 CBC Comments: COMMENTS: AC ROOM 6 HCT 37.6 % (Normal) Range: 37-47 HGB 12.8 g/dL (Normal) Range: 12.0-16.0 MCH 32.4 pg (Abnormal) Range: 27.0-32.0 MCHC 33.9 g/dL (Normal) Range: 32-36 MCV 95.6 fL (Normal) Range: 81-99 MPV 10.7 fL (Normal) Range: 6.5-12.0 PLT 225 K/mm3 (Normal) Range: 150-450 RBC 3.94 {M/mm3} (Abnormal) Range: 4.2-5.4 RDW 14.1 % (Normal) Range: 11.6-14.6 WBC 7.6 K/mm3 (Normal) Range: 4.4-11.0 39-Dty-04547:40 CULTURE, NOSE GRAM STAIN See Note (Normal) Comments: GRAM STAINRARE WHITE BLOOD CELLSRARE EPITHELIAL CELLSNO ORGANISMS SEEN NASAL CULTURE See Note (Normal) Comments: AMOUNT GROWTH RARE AMOUNT GROWTH 1+ ORGANISM 1: STAPHYLOCOCCUS AUREUSORGANISM 2: STAPHYLOCOCCUS EPIDERMIDIS STAPHYLOCOCCUS AUREUS: REACTIONBEN ZYLPENICILLIN - 0.12 RCEFAZOLIN *See Comment $ S* SCEFOXITIN SCREEN (NF) $ Neg - CIPROFLOXACIN GP (IV/NF) $$ <=0.5 SCL INDAMYCIN $$ <=0.25 SINDUCIBLE CC RESISTANCE (NF)$ Neg -ERYTHROMYCIN $$ <=0.25 SGENTAMICIN GP $ <=0.5 SLEVOFLOXACIN $ 0.25 SLINEZOLID $$$ 2 SMOXIFLOXICIN (NF) $$ <=0.25 SOXACILLIN $$ 0.5 STIGECYCLINE (NF) $$$ <=0.12 SQUINUPRISTIN/DALFOPRI (NF) $$$ <=0.25 SRIFAMPICIN $ <=0.5 STETRACYCLINE $ &l t;=1 STRIMETHOPRIM/SULFAMETHOXAZ $ <=10 SVANCOMYCIN $ 1 S STAPHYLOCOCCUS EPIDERMIDIS: REACTIONBENZYLPENICILLIN - >=0.5 RCEFAZOLIN *See Comment $ S* SCEFOXITIN SCREEN (NF) $ Neg -CIPROFLOXACIN GP (IV/NF) $$ <=0.5 SCLINDAMYCIN $$ <=0.25 SINDUCIBLE CC RESISTANCE (NF)$ Neg -ERYTHROMYCIN $$ >=8 RGENTAMICIN GP $ <=0.5 SLEVOFLOXACIN $ <=0.12 SLINEZOLID $$$ 1 SOXACILLIN $$ <=0.25 STIGECYCLINE (NF) $$$ <=0.12 SQUINU PRISTIN/DALFOPRI (NF) $$$ <=0.25 SRIFAMPICIN $ <=0.5 STETRACYCLINE $ 2 SVANCOMYCIN $ 1 S :56 Blood Glucose , Office (08753) Blood Glucose , Office 102 (Normal) :56 HgA1C , Office (48991) HgA1C , Office 6.1 % (Normal) Range: 4.6 - 7.1 :49 MICROALBUMIN: CREATININE Comments: PATIENT WAS FASTINGPERFORMED BY: Fede Liparviem AG0 [facility] [id number] BY: JERMAINE [employer]butch CosmePflzio4604 [facility] [id number] RATIO (65180) AND (41201) Microalb/Creat Ratio 2.3 {mg/g_creat} (Normal) Range: 0.0-30.0 Microalbumin, Urine 3.4 ug/mL (Normal) Range: 0.0-17.0 Creatinine, Urine 150.2 mg/dL (Normal) Range: 15.0-278.0 :49 LIPOPROTEIN, BLD, BY NMR Comments: PATIENT WAS FASTINGPERFORMED BY: Fede Metaset0 [facility] [id number] BY: JERMAINE [facility]CoChrist HospitalTgvygc4119 [facility] [id number] Information: ADD [id number] AND DRAW FEE 99 6042 (57492) LP-IR 83 Comments: The LP-IR Score combines the information from Large VLDL- P,Small LDL-P, Large HDL-P, VLDL Size, LDL Size and HDL Sizeto give improved assessment of insulin resistance anddiabetes risk. Score (Abnormal) INSULIN RESISTANCE / DIABETES RISK MARKERS<--Insulin Sensitive Insulin Resistant-->Percentile in Reference PopulationLarge VLDL-P Low 25th 50th 75th High<0.9 0.9 2.7 6.9 >6.9.Small LDL-P Low 25th 50th 75th High<117 117 527 839 >839.Large HDL-P High 75th 50th 25th Low>7.3 7.3 4.8 3.1 <3.1.VLDL Size Small 25th 50th 75th Large<42.4 42.4 46.6 52.5 >52.5.LDL Size Large 75th 50th 25th Small>21.2 21.2 20.8 20.4 <20.4.HDL Size Large 75th 50th 25th Small>9.6 9.6 9.2 8.9 >8.9Insulin Resistance ScoreLP-IR SCORE Low 25th 50th 75th High<27 27 45 63 >63 HDL Size 8.4 nm Comments: Small LDL-P, LDL Particle Size, Large HDL-P, Large VLDL-PVLDL Size, HDL Size, HDL Particle, and LP-IR Scorehave been validated by [employer] but not cleared by US FDA;the clinical utility of these test (Abnormal) results has not been fully established. Large < 0.7 HDL-P umol/L (Abnormal) LDL Size 20.3 nm (Abnormal) VLDL 54.6 nm Size (Abnormal) Large 12.2 VLDL-P nmol/L (Abnormal) LDL Size 20.3 nm Comments: INTERPRETATIVE INFORMATIONPARTICLE CONCENTRATION AND SIZE<--Lower CVD Risk Higher CVD Risk-->LDL AND HDL PARTICLES Percentile i (Abnormal) n Reference PopulationHDL-P (total) High 75th 50th 25th Low>34.9 34.9 30.5 26.7 <26.7.Small LDL-P Low 25th 50th 75th High<117 117 527 839 >839.LDL Size <-Large (Pattern A)-> <-Small (Pattern B)->23.0 20.6 20.5 19.0 Small 1379 LDL-P nmol/L (Abnormal) HDL-P 22.4 (Total) umol/L (Abnormal) LDL-P 1989 Comments: Low < 1000Moderate 1000 - 1299Borderline- High 1300 - 1599High 1600 - 2000Very High > 2000 nmol/L (Abnormal) Small 1379 LDL-P nmol/L (Abnormal) Triglyce 285 mg/dL rides (Abnormal) HDL-C 30 mg/dL (Abnormal) LDL-C 133 mg/dL Comments: .Optimal < 100Above optimal 100 - 129Borderline 130 - 159High 160 - 189Very high > 189. (Abnormal) Choleste 220 mg/dL galina, (Abnormal) Total 63-Php-39459:49 METABOLIC PANEL, Comments: PATIENT WAS FASTINGPERFORMED BY: Fede [employer] Ene5208 Tomás [facility] [id number] BY: [facility] Hvzvnk6795 [facility] [id number] COMPREHENSIVE (73574) ALT (SGPT) 22 [iU]/L (Normal) Range: 0-40 AST (SGOT) 18 [iU]/L (Normal) Range: 0-40 A/G Ratio 1.3 (Normal) Range: 1.1-2.5 Alkaline Phosphatase, S 81 [iU]/L (Normal) Range: 25-150 Bilirubin, Total 0.4 mg/dL (Normal) Range: 0.0-1.2 Globulin, Total 3.2 g/dL (Normal) Range: 1.5-4.5 Albumin, Serum 4.0 g/dL (Normal) Range: 3.5-5.5 Calcium, Serum 9.1 mg/dL (Normal) Range: 8.7-10.2 Carbon Dioxide, Total 21 mmol/L (Normal) Range: 20-32 Protein, Total, Serum 7.2 g/dL (Normal) Range: 6.0-8.5 Chloride, Serum 107 mmol/L (Normal) Range: 97-108 Potassium, Serum 4.3 mmol/L (Normal) Range: 3.5-5.2 BUN/Creatinine Ratio 15 (Normal) Range: 8-27 Creatinine, Serum 1.00 mg/dL (Normal) Range: 0.57-1.00 eGFR 57 mL/min/1.73 (Abnormal) eGFR AfricanAmerican >59 mL/min/1.73 Comments: Note: Persistent reduction for 3 months or more in an eGFR<60 mL/min/1.73 m2 defines CKD. Patients with eGFR values>/=60 mL/min/1.73 m2 may also have CKD if evidence of persistentproteinuria is (Normal) present. Additional information may be found [email or web address]. Sodium, Serum 142 mmol/L (Normal) Range: 135-145 BUN 15 mg/dL (Normal) Range: 5-26 Glucose, Serum 107 mg/dL (Abnormal) Range: 65-99 67-Sqv-55133:49 LIPID PANEL (32720) Comments: PATIENT WAS FASTINGPERFORMED BY: Fede [employer] Rgz6112 Tomás [facility] [id number] BY: JERMAINE LabCoChrist HospitalYlvpgq6356 [facility] [id number] LDL Cholesterol Calc 135 mg/dL (Abnormal) Range: 0-99 LDL/HDL Ratio 4.1 {ratio_units} (Abnormal) Range: 0.0-3.2 VLDL Cholesterol José Luis 52 mg/dL (Abnormal) Range: 5-40 HDL Cholesterol 33 mg/dL (Abnormal) Comments: According to ATP-III Guidelines, HDL-C >59 mg/dL is considered anegative risk factor for CHD. Triglycerides 261 mg/dL (Abnormal) Range: 0-149 Cholesterol, Total 220 mg/dL (Abnormal) Range: 100-199 37-Ryp-24826:49 CBC WITH MANUAL DIFF Comments: PATIENT WAS FASTINGPERFORMED BY: Fede [employer] Kme3694 [facility] [id number] BY: JERMAINE [facility] Zgaexz9432 [facility] [id number] (49918) Baso (Absolute) 0.1 {x10E3/uL} (Normal) Range: 0.0-0.2 Eos (Absolute) 0.1 {x10E3/uL} (Normal) Range: 0.0-0.4 Lymphs (Absolute) 2.2 {x10E3/uL} (Normal) Range: 0.7-4.5 Monocytes(Absolute) 0.4 {x10E3/uL} (Normal) Range: 0.1-1.0 Neutrophils (Absolute) 3.9 {x10E3/uL} (Normal) Range: 1.8-7.8 Basos 1 % (Normal) Range: 0-3 Eos 2 % (Normal) Range: 0-7 Lymphs 33 % (Normal) Range: 14-46 Monocytes 6 % (Normal) Range: 4-13 MCH 32.3 pg (Normal) Range: 27.0-34.0 MCHC 33.7 g/dL (Normal) Range: 32.0-36.0 MCV 96 fL (Normal) Range: 80-98 Neutrophils 58 % (Normal) Range: 40-74 Platelets 134 {x10E3/uL} (Abnormal) Range: 140-415 RDW 14.4 % (Normal) Range: 11.7-15.0 Hematocrit 44.3 % (Abnormal) Range: 34.0-44.0 Hemoglobin 14.9 g/dL (Normal) Range: 11.5-15.0 RBC 4.63 {x10E6/uL} (Normal) Range: 3.80-5.10 WBC 6.7 {x10E3/uL} (Normal) Range: 4.0-10.5 9-Hua-866952:35 MARYJANE CULTURE-OTHER (52343) Comments: PATIENT NOT FASTINGPERFORMED BY: [facility]6370 [facility] [id number] Information: SRC:THRT I70116 Result 1 RRF (Normal) Comments: Routine respiratory bin Upper Respiratory Culture Final report (Normal) 23-Jul-20098:07 Rapid Strep Test, Office (74103) Rapid Strep Test, Negative (Normal) Office 27-Feb-20098:2 Potassium, Serum 3.8 mmol/L (Normal) Comments: PATIENT WAS FASTINGPERFORMED BY: [facility] [id number] Range: 3.5-5.2 13-Wml-333594:00 BILAT SCRN DIGITAL & CAD Radiology Report See Note (Normal) Comments: Exam Number: [id number] MAMMOGRAM, BILATERAL SCREENING DIGITAL AND CAD HISTORYRoutine screening. Full field digital images were obtained in mediolateral oblique andcraniocaudal projections. CAD images w ere reviewed. The current study is compared to the examinations of September 05, 2003,and November 06, 2005. There is moderately dense fibroglandular parenchyma present. There isno skin thickening or retraction , architectural distortion, or clusterof suspicious microcalcifications. There are a few scatteredcalcifications and small densities present. If there is no suspiciouspalpable abnormality, followup beth mogram in 1 year is recommended. IMPRESSIONThere is no radiographic evidence of malignancy identified. FINAL ASSESSMENTBenign findings. BIRADS Category 2. A letter regarding these results has been sent to the patient. This interpretation was rendered by a radiologist certified under theMammography Quality Standards Act of 1992 (MQSA). The mammograms werealso examined with computer-aided detection s oftware ([employer] Reported By: KENNA SWEET M.D. 27-Feb-20098:24 Lipid Panel (01989) Comments: PATIENT WAS FASTINGClinical Information: ADD [id number], [id number] PERFORMED BY: [address] [place] [id number] Cholesterol, Total 224 mg/dL (Abnormal) Range: 100-199 HDL Cholesterol 31 mg/dL (Abnormal) Comments: According to ATP-III Guidelines, HDL-C >59 mg/dL is considered anegative risk factor for CHD. LDL Cholesterol Calc 122 mg/dL (Abnormal) Range: 0-99 LDL/HDL Ratio 3.9 {ratio_units} (Abnormal) Range: 0.0-3.2 Triglycerides 354 mg/dL (Abnormal) Range: 0-149 VLDL Cholesterol José Luis 71 mg/dL (Abnormal) Range: 5-40 13-Xfb-308278:16 JESUS ALBERTO (ANTINUCLEAR ANTIBODY) Comments: PATIENT NOT FASTINGPERFORMED BY: [facility]wareJosh[place] [id number] [facility] [id number] (79780) Antinuclear Antibodies Direct Negative (Normal) :16 C-REACTIVE PROTEIN (01116) Comments: PATIENT NOT FASTINGPERFORMED BY: [facility]wareChrist HospitalBdcjma2107 [facility] [id number] C-Reactive Protein, Quant 8.0 mg/L (Abnormal) Range: 0.0-4.9 17-Pxm-137486:16 CBC (AUTO) (68531) Comments: PATIENT NOT FASTINGPERFORMED BY: [facility]wareChrist HospitalCwchif2847 [facility] [id number] Hematocrit 42.4 % (Normal) Range: 34.0-44.0 Hemoglobin 14.4 g/dL (Normal) Range: 11.5-15.0 MCH 31.9 pg (Normal) Range: 27.0-34.0 MCHC 34.0 g/dL (Normal) Range: 32.0-36.0 MCV 94 fL (Normal) Range: 80-98 Platelets 160 {x10E3/uL} (Normal) Range: 140-415 RBC 4.52 {x10E6/uL} (Normal) Range: 3.80-5.10 RDW 14.1 % (Normal) Range: 11.7-15.0 WBC 7.6 {x10E3/uL} (Normal) Range: 4.0-10.5 63-Dpz-110372:16 Folate (22305) Comments: PATIENT NOT FASTINGPERFORMED BY: [facility]6370 [facility] [id number] Folate (Folic Acid), Serum 17.4 ng/mL (Normal) Comments: Indeterminate: 3.4 - 5.4 Deficient: <3.4 89-Gxa-066522:16 METABOLIC PANEL, COMPREHENSIVE Comments: PATIENT NOT FASTINGPERFORMED BY: [facility]6370 [facility] [id number] (20674) A/G Ratio 1.2 (Normal) Range: 1.1-2.5 Albumin, Serum 4.1 g/dL (Normal) Range: 3.5-5.5 Alkaline Phosphatase, S 92 [iU]/L (Normal) Range: 25-150 ALT (SGPT) 18 [iU]/L (Normal) Range: 0-40 AST (SGOT) 17 [iU]/L (Normal) Range: 0-40 Bilirubin, Total 0.3 mg/dL (Normal) Range: 0.1-1.2 BUN 15 mg/dL (Normal) Range: 5-26 BUN/Creatinine Ratio 15 (Normal) Range: 8-27 Calcium, Serum 9.6 mg/dL (Normal) Range: 8.5-10.6 Carbon Dioxide, Total 26 mmol/L (Normal) Range: 20-32 Chloride, Serum 100 mmol/L (Normal) Range: 97-108 Creatinine, Serum 0.97 mg/dL (Normal) Range: 0.57-1.00 eGFR 59 mL/min/1.73 (Abnormal) eGFR AfricanAmerican >59 mL/min/1.73 Comments: Note: Persistent reduction for 3 months or more in an eGFR<60 mL/min/1.73 m2 defines CKD. Patients with eGFR values>/=60 mL/min/1.73 m2 may also have CKD if evidence of persistentproteinuria is (Normal) present. Additional information may be found [email or web address]. Globulin, Total 3.4 g/dL (Normal) Range: 1.5-4.5 Glucose, Serum 92 mg/dL (Normal) Range: 65-99 Potassium, Serum 3.4 mmol/L (Abnormal) Range: 3.5-5.2 Comments: Client Requested Flag Protein, Total, Serum 7.5 g/dL (Normal) Range: 6.0-8.5 Sodium, Serum 142 mmol/L (Normal) Range: 135-145 42-Kaz-069878:16 RHEUMATOID FACTOR-QUANT (04205) Comments: PATIENT NOT FASTINGPERFORMED BY: [facility]6370 [facility] [id number] RA Latex Turbid. 9.3 {IU/mL} (Normal) Range: 0.0-13.9 :16 SED RATE ERYTHROCYTE (12842) Comments: PATIENT NOT FASTINGPERFORMED BY: LabJenn[place] 6782970 [facility] [id number] Sedimentation Rate-Westergren 21 mm/h (Normal) Range: 0-30 41-Nai-246072:16 TSH (08259) Comments: PATIENT NOT FASTINGPERFORMED BY: [place] [id number] [facility] [id number] TSH 2.690 {uIU/mL} (Normal) Range: 0.450-4.500 61-Ilm-590783:16 VITAMIN B-12 (CYANOCOBALAMIN) Comments: PATIENT NOT FASTINGPERFORMED BY: [place] 7723470 [facility] [id number] (96519) Vitamin B12 348 pg/mL (Normal) Range: 211-911 23-Jan-20099:35 Lipid Panel (40733) Comments: PATIENT WAS FASTINGClinical Information: ADD [id number], [id number] PERFORMED BY: [address] [id number] Cholesterol, Total 208 mg/dL (Abnormal) Range: 100-199 HDL Cholesterol 32 mg/dL (Abnormal) Comments: According to ATP-III Guidelines, HDL-C >59 mg/dL is considered anegative risk factor for CHD. LDL Cholesterol Calc 124 mg/dL (Abnormal) Range: 0-99 LDL/HDL Ratio 3.9 {ratio_units} (Abnormal) Range: 0.0-3.2 Triglycerides 261 mg/dL (Abnormal) Range: 0-149 VLDL Cholesterol José Luis 52 mg/dL (Abnormal) Range: 5-40 21-Cue-671798:47 HgA1C , Office (20915) HgA1C , Office 5.8 % (Normal) Range: 4.6 - 7.1 47-Pyq-381923:47 Blood Glucose , Office (76486) Blood Glucose , Office 128 (Normal) 38-Ubk-523240:43 Urinalysis, Office (20147) UA - LEUKOCYTE ESTERASE Trace (Normal) UA - NITRITE Negative (Normal) UA - PROTEIN Negative mg/dL (Normal) URINE UROBILINGN FRANKO TIMED 2 mg/dL (Normal) UA - BILIRUBIN Negative (Normal) UA - BLOOD Hemolyzed Trace (Normal) UA - GLUCOSE Negative (Normal) UA - KETONES Negative mg/dL (Normal) UA - PH 6.0 (Normal) UA - SPECIFIC GRAVITY 1.025 (Normal) Plan of Care Name Dates Details Instructions Neoplasm of uncertain behavior of skin : Punch Biopsy with Epi Indication: Neoplasm of uncertain behavior of skin Trochanteric bursitis of both hips : Hip Bursa Indication: Trochanteric bursitis of both hips BMI 39.0-39.9,adult : Eprescribed prescriptions (G8553) Indication: BMI 39.0-39.9,adult Acute leg pain, right : Knee Injections Indication: Acute leg pain, right Neuropathic pain, leg, bilateral : Eprescribed prescriptions (G8553) Indication: Neuropathic pain, leg, bilateral Obesity : Eprescribed prescriptions (G8553) Indication: Obesity Obesity : Eprescribed prescriptions (G8553) Indication: Obesity Chest pain : Eprescribed prescriptions (G8553) Indication: Chest pain Need for prophylactic vaccination and inoculation against influenza : Flu (Influenza) *: flu Indication: Need for prophylactic vaccination and inoculation against influenza Need for prophylactic vaccination and inoculation against influenza : Flu (Influenza) *: flu shot Indication: Need for prophylactic vaccination and inoculation against influenza Abnormal fasting glucose : Eprescribed prescriptions (G8553) Indication: Abnormal fasting glucose Gastroenteritis : Follow up if no improvement or if symptoms worsen Indication: Gastroenteritis Sinusitis : Sinusitis *: allergies Indication: Sinusitis Allergic rhinitis : Allergic Rhinitis *: allergic rhinitis Indication: Allergic rhinitis Encounter for immunization : Shingles Vaccine Education 2005 Indication: Encounter for immunization Depression : Flu Shots (Influenza Vaccine): prevention Indication: Depression Encounter for routine adult medical exam with abnormal findings : SELF BREAST EXAM Indication: Encounter for routine adult medical exam with abnormal findings Encounter for routine adult medical exam with abnormal findings : *Well Female Maintenance (KF) Indication: Encounter for routine adult medical exam with abnormal findings Encounter for routine adult medical exam with abnormal findings : Pap/Pelvic/Bimanual/Rectal/Breast Exam was done. Indication: Encounter for routine adult medical exam with abnormal findings PROBLEMS W/SMELL/TASTE : FOLLOW UP IN 2 WEEKS Indication: PROBLEMS W/SMELL/TASTE Bronchitis : *URI Treatment Indication: Bronchitis Bronchitis : *URI Symptoms Indication: Bronchitis Bronchitis : *Antibiotic Usage Education - Female Indication: Bronchitis Laryngitis : Laryngitis Education Indication: Laryngitis Acute sinusitis : *Antibiotic Usage Education - Female Indication: Acute sinusitis Other specified viral infection, in conditions classified elsewhere and of unspecified site : *URI Symptoms Indication: Other specified viral infection, in conditions classified elsewhere and of unspecified site Other specified viral infection, in conditions classified elsewhere and of unspecified site : *URI Treatment Indication: Other specified viral infection, in conditions classified elsewhere and of unspecified site Fatigue : *fatigue education Indication: Fatigue Acute sinusitis : Antibiotic Usage Education - Female Indication: Acute sinusitis Planned Observations TSH (THYROID STIMULATING HORMONE) (89670)Indication: Transient disorientation On: 8-Yet-579698:23 Request LIPID PANEL (50497)Indication: Mixed hyperlipidemia On: 7-Oxf-955728:45 Request Platelet 11136 (citrate, nonclumping tube)Indication: Thrombocytopenia, unspecified On: 22-Jul-20178:19 Request Metabolic Panel, Comprehensive (84577)Indication: Benign essential hypertension On: 55-Mku-931318:46 Request MICROALBUMIN: CREATININE RATIO (82236) AND (50868)Indication: Benign essential hypertension On: 89-Rua-482331:45 Request URINALYSIS (90455)Indication: Benign essential hypertension On: 91-Xlg-214935:45 Request CBC WITH MANUAL DIFF (07832)Indication: Benign essential hypertension On: 06-Vrj-036891:45 Request Platelet Count, Citrated (47282)Indication: Thrombocytopenia, unspecified On: :11 Request LIPOPROTEIN, BLD, BY NMR (01881)Indication: Mixed hyperlipidemia On: :07 Request Lipase (65786)Indication: Abdominal pain On: 40-Iyb-949573:24 Request Comments: add to hospital labs. Amylase (20428)Indication: Abdominal pain On: 62-Rhn-375191:24 Request Comments: add to hospital labs. Antiphospholipid atb (31063)Indication: Pulmonary emboli On: :27 Request ANTICOAG ANTTHROMB III & ASSAY (91428)Indication: Pulmonary emboli On: :27 Request METABOLIC PANEL, COMPREHENSIVE (54803)Indication: Benign essential hypertension On: :37 Request Comments: in three months (approximately) CBC with auto diff (57279)Indication: Benign essential hypertension On: :37 Request Comments: in three months (approximately) Troponin I (82710)Indication: Chest pain at rest On: : Request CPK MB FRACTION (21538)Indication: Chest pain at rest On: : Request CREATINE KINASE TOTAL (92916)Indication: Chest pain at rest On: : Request D-Dimer (36340)Indication: Chest pain at rest On: 2-Wbs-037712:00 Request Metabolic Panel, Basic (31169)Indication: Chest pain at rest On: :58 Request CBC (Auto) (90504)Indication: Chest pain at rest On: :58 Request URINALYSIS, W/ MICRO (55013)Indication: Benign essential hypertension On: :29 Request METABOLIC PANEL, COMPREHENSIVE (08153)Indication: Benign essential hypertension On: :29 Request LIPID PANEL (52143)Indication: Benign essential hypertension On: :29 Request CBC W/AUTO DIFF WBC (70743)Indication: Benign essential hypertension On: :29 Request URINALYSIS (42589)Indication: UTI (lower urinary tract infection) On: :49 Request LIPID PANEL (75380)Indication: Benign essential hypertension On: :27 Request CBC WITH MANUAL DIFF (65196)Indication: Thrombocytopenia, unspecified On: :27 Request METABOLIC PANEL, COMPREHENSIVE (39726)Indication: Benign essential hypertension On: :27 Request TSH (THYROID STIMULATING HORMONE) (13486)Indication: Post-menopausal bleeding On: :37 Request PROLACTIN (01393)Indication: Post-menopausal bleeding On: 25-Kih-46183:37 Request HEPATIC FUNCTION PANEL (13252)Indication: Hyperglyceridemia On: :05 Request LIPOPROTEIN, BLD, BY NMR (01945)Indication: Hyperglyceridemia On: :04 Request CBC, Platelets & Auto Diff (18580)Indication: Thrombocytopenia, unspecified On: :04 Request Comments: citrate tube Potassium Serum (28916)Indication: Hypokalemia On: 50-Vwt-507479:36 Request Planned Encounters Medical; JULIANNEP Pre Wellness Exam (DB Nurse) - On: 26-Jul-2018 8:00 [facility] SUZY Spencer; CARRIE Wellness Exam (Doctor) - On: 16-Aug-2018 8:00 [facility] Kelly Hannah MD, MD, Dana M Planned Procedures EEGBy: Kelly Hannah MD On: 21-May-2018 Intent Kelly FLYNN MRI OF BRAIN WITH AND WITHOUT On: 21-May-2018 Intent CONTRAST (72523)By: Kelly Hannah MD, MD, Dana M EKG (35499)By: Kelly Hannah MD On: 02-Dec-2017 Intent Kelly Hannah MD Radiology - Foot - LeftBy: Brielle On: 12-Aug-2017 Intent Kelly FLYNN MD, Dana M TDAP VACCINE >7 IM (17928)By: On: 22-Jul-2017 Intent Kelly Hannah MD, MD, Dana Comments: tdap 0.5mL prefilled syringelot:6WQ64aao:10/2019L DELT IMpt tolerated wellAD 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 pericardial fluid EKG (64534)By: Kelly Hannah MD On: 04-Sep-2016 Intent Kelly Hannah MD Comments: see scanned document of test done to see results reviewed today with patient Bone Density StudyBy: rBielle FLYNN, On: 09-Jun-2016 Intent Kelly Hernandez MD Kenalog Injection, 10 mgm On: 21-Apr-2016 Intent (J3301)By: Kelly Hannah MD Comments: buupivacaine lot [id number] 06-21-17 kenalog [id number] 09-05 Kelly Hannah MD DOPPLER ULTRASOUND OF RIGHT UPPER On: 20-Apr-2016 Intent EXTREMITY FOR VENOUS THROMBOEMBOLISM (22466)By: Kelly Hannah MD, MD, Dana M MAMMOGRAM, SCREENING, BOTH BREAST On: 27-Feb-2016 Intent (31469)By: Kelly Hannah MD, MD, Dana M Venous Doppler - BothBy: Brielle FLYNN, On: 06-Dec-2015 Intent Kelly Hernandez MD Comments: lower legs rule out DVT ADMINISTRATION OF INFLUENZA VIRUS On: 18-Apr-2015 Intent VACCINE (G0008)By: Kelly Hannah MD Comments: Lot:[id number]:11-03Route:IMLocation:Rt deltoiiddose: .5mlGiven by:Kelly Potter MD FLU VAC, SPLIT, >3 YEARS, INTRAMUSC On: 18-Apr-2015 Intent (07350)By: Kelly Hannah MD Comments: Lot #:[id number] date:Amount given:0.5mlRoute: IMSite given:L DltdGiven by: Peyton CHAMPION and ABN signed Quad Flu Kelly Hannah MD BILATERAL MAMMOGRAMS (01934)By: On: 05-Nov-2014 Intent Kelly Hannah MD, MD, Dana M CT - Chest (IV Contrast Needed)By: On: 23-Jul-2014 Intent Kelly Hannah MD, MD, Dana M COMPUTED TOMOGRAPHY ANGIOGRAPHY OF On: 23-Jul-2014 Intent CHEST WITH AND WITHOUT CONTRAST Comments: rule out PE (63365)By: Kelly Hannah MD, MD, Dana M EKG (43389)By: Lindsey Verde DO On: 05-Jul-2014 Intent Comments: sinus johanny with no chg MAMMOGRAM, SCREENING, BOTH BREAST On: 26-Apr-2014 Intent (00994)By: Kelly Hannah MD, MD, Dana M BILATERAL MAMMOGRAMS (02378)By: On: 27-Mar-2014 Intent Kelly Hannah MD, MD, Dana M IMMUNIZ ADMNIN, 1 VAC, SNGL/COMBO On: 27-Mar-2014 Intent (55089)By: Kelly Hannah MD Comments: Lot #[id number]-[id number] dltd, IMDose prefilled syringegiven by:MLJOE alanizNVIS and ABN signed Kelly Hannah MD FLU VAC, SPLIT, >3 YEARS, INTRAMUSC On: 27-Mar-2014 Intent (69068)By: Kelly Hannah MD, MD, Dana M Eprescribed prescriptions (G8553)By: On: 10-Oct-2013 Intent Kelly Hannah MD, MD, Dana M Phenergan Injection, up to 50 mg On: 22-Sep-2013 Intent (J2550)By: Nona Whiting CNP Comments: [id number], IM Nlya, SENIOR QUALITY CONTROL INSPECTOR INFUSION, NORMAL SALINE SOLUTION , On: 22-Sep-2013 Intent 1000 CC (Special Coverage Instructions Apply. See MCM: 2049) ([id number])By: Nona Whiting CNP HYDRATION IV INFUSION, INIT On: 22-Sep-2013 Intent ([id number])By: Nona Whiting CNP Eprescribed prescriptions ([id number])By: On: 10-Jul-2013 Intent Nathalie Nicole Breast Screening - BilateralBy: On: 06-Feb-2013 Intent Kelly Hannah MD, MD, Dana M IMMUNIZ ADMNIN, 1 VAC, SNGL/COMBO On: 06-Feb-2013 Intent ([id number])By: [place] ([id number])By: Tj, On: 06-Feb-2013 Intent SUZY Ultrasound - Abdomen Complete & On: 18-Jan-2013 Intent PelvisBy: Nona Whiting CNP EKG ([id number])By: Kelly Hannah MD On: 12-Jul-2012 Intent Kelly Hannah MD Comments: see scanned document of test done to see results reviewed today with patient Eprescribed prescriptions ([id number])By: On: 12-Jul-2012 Intent Long SENIOR QUALITY CONTROL INSPECTOR, Nyla L MAMMOGRAM, SCREENING, BOTH BREASTS On: 06-Oct-2011 Intent ([id number])By: Kelly Hannah MD Comments: 11-04-11 Kelly Hannah MD MAMMOGRAM, SCREENING, BOTH BREASTS On: 28-Nov-2010 Intent ([id number])By: Kelly Hannah MD, MD, Dana M MAMMOGRAM, SCREENING, BOTH BREASTS On: 23-Oct-2010 Intent ([id number])By: Kelly Hannah MD, MD, Dana M EEGBy: Lindsey Verde DO On: 20-Aug-2010 Intent EKG ([id number])By: Kelly Hannah MD On: 20-Dec-2009 Intent Kelly Hannah MD EKG ([id number])By: Kelly Hannah MD On: 17-Jan-2009 Intent Kelly Hannah MD MAMMOGRAM, SCREENING, BOTH BREASTS On: 17-Jan-2009 Intent ([id number])By: Kelly Hannah MD, MD, Dana M Pulse Oximetry ([id number])By: Yung On: 04-Jul-2008 Intent Gabriela Comments: 98% Phenergan Injection, up to 50 mg On: 25-Apr-2008 Intent ([id number])By: Nona Whiting CNP Comments: 25mg given IMAmt: 1mlLot: [id number]: 03/2010Route: IMSite: left hipTolerated: wellGiven By: Sherlyn, SENIOR QUALITY CONTROL INSPECTOR INFUSION, NORMAL SALINE SOLUTION , On: 25-Apr-2008 Intent 1000 CC (Special Coverage Comments: IV Therapy initiated (Hamzah Black LPN)22G, 1inchSite: right wristTolerated: wellB. Ino LPN Instructions Apply. See MCM: 2048) ([id number])By: Nona Whiting CNP HYDRATION IV INFUSION, INIT On: 25-Apr-2008 Intent ([id number])By: Nona Whiting CNP FLU VAC, SPLIT, >3 YEARS, INTRAMUSC On: 21-May-2006 Intent ([id number])By: SUZY Spencer IMMUNIZ ADMNIN, 1 VAC, SNGL/COMBO On: 21-May-2006 Intent ([id number])By: SUZY Spencer Planned Medications INFUSION, NORMAL SALINE SOLUTION , 1000 CC Ordered: 22-Sep-2013 Pending Nona Whiting CNP INJECTION, TRIAMCINOLONE ACETONIDE, NOT OTHERWISE SPECIFIED, 10 MG Ordered: 21-Apr-2016 Pending Brielle FLYNN, Kelly Hannah MD, Kelly Cristina INJECTION, TRIAMCINOLONE ACETONIDE, NOT OTHERWISE SPECIFIED, 10 MG Ordered: 15-Feb-2017 Pending Brielle FLYNN, Kelly Hannah MD, Kelly Cristina Phenergan 50 MG/ML Injection Solution Ordered: 22-Sep-2013 Pending Nona Whiting CNP Instructions Name Dates Details Hospital discharge follow-up : How to access health information online Indication: Hospital discharge follow-up Hospital discharge follow-up : How to access health information online - Detail Indication: Hospital discharge follow-up Hospital discharge follow-up : Patient Instructions Indication: Hospital discharge follow-up BMI 39.0-39.9,adult : How to access health information online Indication: BMI 39.0-39.9,adult BMI 39.0-39.9,adult : How to access health information online - Detail Indication: BMI 39.0-39.9,adult BMI 39.0-39.9,adult : Patient Instructions Indication: BMI 39.0-39.9,adult BMI 39.0-39.9,adult : How to access health information online Indication: BMI 39.0-39.9,adult BMI 39.0-39.9,adult : How to access health information online - Detail Indication: BMI 39.0-39.9,adult BMI 39.0-39.9,adult : Patient Instructions Indication: BMI 39.0-39.9,adult BMI 39.0-39.9,adult : How to access health information online Indication: BMI 39.0-39.9,adult BMI 39.0-39.9,adult : How to access health information online - Detail Indication: BMI 39.0-39.9,adult BMI 39.0-39.9,adult : Patient Instructions Indication: BMI 39.0-39.9,adult BMI 37.0-37.9, adult : How to access health information online Indication: BMI 37.0-37.9, adult BMI 37.0-37.9, adult : How to access health information online - Detail Indication: BMI 37.0-37.9, adult BMI 37.0-37.9, adult : Patient Instructions Indication: BMI 37.0-37.9, adult BMI 38.0-38.9,adult : How to access health information online Indication: BMI 38.0-38.9,adult BMI 38.0-38.9,adult : How to access health information online - Detail Indication: BMI 38.0-38.9,adult BMI 38.0-38.9,adult : Patient Instructions Indication: BMI 38.0-38.9,adult Flu-like symptoms : How to access health information online Indication: Flu-like symptoms Flu-like symptoms : How to access health information online - Detail Indication: Flu-like symptoms Flu-like symptoms : Patient Instructions Indication: Flu-like symptoms Viral infection : How to access health information online Indication: Viral infection Viral infection : How to access health information online - Detail Indication: Viral infection Viral infection : Patient Instructions Indication: Viral infection BMI 39.0-39.9,adult : How to access health information online Indication: BMI 39.0-39.9,adult BMI 39.0-39.9,adult : How to access health information online - Detail Indication: BMI 39.0-39.9,adult BMI 39.0-39.9,adult : Patient Instructions Indication: BMI 39.0-39.9,adult Mixed hyperlipidemia : How to access health information online Indication: Mixed hyperlipidemia Mixed hyperlipidemia : How to access health information online - Detail Indication: Mixed hyperlipidemia Mixed hyperlipidemia : Patient Instructions Indication: Mixed hyperlipidemia BMI 39.0-39.9,adult : How to access health information online Indication: BMI 39.0-39.9,adult BMI 39.0-39.9,adult : How to access health information online - Detail Indication: BMI 39.0-39.9,adult BMI 39.0-39.9,adult : Patient Instructions Indication: BMI 39.0-39.9,adult BMI 39.0-39.9,adult : How to access health information online Indication: BMI 39.0-39.9,adult BMI 39.0-39.9,adult : How to access health information online - Detail Indication: BMI 39.0-39.9,adult BMI 39.0-39.9,adult : Patient Instructions Indication: BMI 39.0-39.9,adult Chest pain at rest : How to access health information online Indication: Chest pain at rest Chest pain at rest : How to access health information online - Detail Indication: Chest pain at rest Chest pain at rest : Patient Instructions Indication: Chest pain at rest BMI 40.0-44.9, adult : How to access health information online Indication: BMI 40.0-44.9, adult BMI 40.0-44.9, adult : How to access health information online - Detail Indication: BMI 40.0-44.9, adult BMI 40.0-44.9, adult : Patient Instructions Indication: BMI 40.0-44.9, adult BMI 38.0-38.9,adult : How to access health information online Indication: BMI 38.0-38.9,adult BMI 38.0-38.9,adult : How to access health information online - Detail Indication: BMI 38.0-38.9,adult BMI 38.0-38.9,adult : Patient Instructions Indication: BMI 38.0-38.9,adult Neuropathic pain, leg, bilateral : How to access health information online Indication: Neuropathic pain, leg, bilateral Neuropathic pain, leg, bilateral : How to access health information online - Detail Indication: Neuropathic pain, leg, bilateral Neuropathic pain, leg, bilateral : Patient Instructions Indication: Neuropathic pain, leg, bilateral Chest pain at rest : How to access health information online Indication: Chest pain at rest Chest pain at rest : How to access health information online - Detail Indication: Chest pain at rest Chest pain at rest : Patient Instructions Indication: Chest pain at rest Depression : How to access health information online Indication: Depression Depression : How to access health information online - Detail Indication: Depression Depression : Patient Instructions Indication: Depression Neuropathic pain, leg, bilateral : How to access health information online Indication: Neuropathic pain, leg, bilateral Neuropathic pain, leg, bilateral : How to access health information online - Detail Indication: Neuropathic pain, leg, bilateral Neuropathic pain, leg, bilateral : Patient Instructions Indication: Neuropathic pain, leg, bilateral Neuropathic pain, leg, bilateral : How to access health information online Indication: Neuropathic pain, leg, bilateral Neuropathic pain, leg, bilateral : How to access health information online - Detail Indication: Neuropathic pain, leg, bilateral Neuropathic pain, leg, bilateral : Patient Instructions Indication: Neuropathic pain, leg, bilateral Chest pain at rest : How to access health information online Indication: Chest pain at rest Chest pain at rest : How to access health information online - Detail Indication: Chest pain at rest Chest pain at rest : Patient Instructions Indication: Chest pain at rest Obesity : How to access health information online Indication: Obesity Obesity : How to access health information online - Detail Indication: Obesity Obesity : Patient Instructions Indication: Obesity Need for prophylactic vaccination and inoculation against influenza : How to access health information online Indication: Need for prophylactic vaccination and inoculation against influenza Need for prophylactic vaccination and inoculation against influenza : How to access health information online - Detail Indication: Need for prophylactic vaccination and inoculation against influenza Need for prophylactic vaccination and inoculation against influenza : Patient Instructions Indication: Need for prophylactic vaccination and inoculation against influenza Nausea : How to access health information online Indication: Nausea Nausea : How to access health information online - Detail Indication: Nausea Nausea : Patient Instructions Indication: Nausea Abdominal pain : How to access health information online Indication: Abdominal pain Abdominal pain : How to access health information online - Detail Indication: Abdominal pain Abdominal pain : Patient Instructions Indication: Abdominal pain Pulmonary emboli : How to access health information online Indication: Pulmonary emboli Pulmonary emboli : How to access health information online - Detail Indication: Pulmonary emboli Pulmonary emboli : Patient Instructions Indication: Pulmonary emboli Obesity : How to access health information online Indication: Obesity Obesity : How to access health information online - Detail Indication: Obesity Obesity : Patient Instructions Indication: Obesity Obesity : How to access health information online Indication: Obesity Obesity : How to access health information online - Detail Indication: Obesity Obesity : Patient Instructions Indication: Obesity Chest pain : Patient Instructions Indication: Chest pain Obesity : Patient Instructions Indication: Obesity Abnormal fasting glucose : How to access health information online Indication: Abnormal fasting glucose Abnormal fasting glucose : How to access health information online - Detail Indication: Abnormal fasting glucose Abnormal fasting glucose : Patient Instructions Indication: Abnormal fasting glucose Abnormal fasting glucose : Patient Instructions Indication: Abnormal fasting glucose Nausea : Patient Instructions Indication: Nausea Sinusitis : Patient Instructions Indication: Sinusitis Allergic rhinitis : Patient Instructions Indication: Allergic rhinitis Obesity : Patient Instructions Indication: Obesity Depression : Patient Instructions Indication: Depression Encounters Office Visit On: 23-May-2018 13:37 Encounter Reason: Follow up hospital - Reason for ER visit: note: (acute confusion, UTI). The patient feels well with minor complaints and has good energy level. Patient has been compliant with instructions. Patient slee End: 24-May-2018 10:50 ps 7 hours per night. Impact of disease: emotional impact-moderate. Nutrition: balanced diet and supplemental vitamins. The hospital results of the CT scan of brain wereEncounter Diagnosis: BMI 38.0-38.9,adult, Hospital discharge follow-up, Current nonsmoker (Renamed from Current non-smoker), Abnormal MRI of head, Transient disorientation, UTI symptoms [facility] Office Visit On: 21-May-2018 8:11 Encounter Diagnosis: Transient confusion End: 21-May-2018 10:20 [facility] Office Visit On: 03-May-2018 13:28 [facility] End: 06-May-2018 10:22 Office Visit On: 24-Feb-2018 12:13 Encounter Reason: Follow up ER - Reason for hospitalization note: (chest pain, left arm numbness). Patient has been compliant with instructions. Current medication use: no side effects, compliant with dosing regimen and End: 24-Feb-2018 12:47 considered effective by patient. The patient feels well with no complaints, has good energy level and is sleeping well. Patient sleeps 7 hours per night. Impact of disease: emotional impact-mild. Nutrition: balanced diet and supplemental vitamins. Encounter Diagnosis: BMI 39.0-39.9,adult, Current nonsmoker (Renamed from Current non-smoker), Chest pain at rest, Left foot pain, Mixed hyperlipidemia [facility] Office Visit On: 02-Dec-2017 8:48 Encounter Diagnosis: BMI 39.0-39.9,adult, Current nonsmoker (Renamed from Current non-smoker), Chest pain at rest, Mixed hyperlipidemia, Depression End: 02-Dec-2017 9:24 [facility] Office Visit On: 02-Nov-2017 15:47 Encounter Diagnosis: Obesity, Insomnia, Left foot pain, Depression End: 02-Nov-2017 16:13 [facility] Office Visit On: 23-Sep-2017 14:25 Encounter Reason: Follow up, Diagnostic Procedure Results - Diagnostic tests include other (labs). Date: (09-14-17). Current symptoms include other (left lower leg pain, and foot area).Encounter Diagnosis: BMI 39.0-39.9,adult, End: 24-Sep-2017 13:22 Current nonsmoker (Renamed from Current non-smoker), Abnormal fasting glucose, Benign essential hypertension, Hip pain, Trochanteric bursitis of both hips, History of pulmonary embolism, ROSAMARIA on CPAP, Allergic rhinitis, Menopausal state, Migraine, Insomnia, Left foot pain, Coronary artery disease due to lipid rich plaque, Encounter for routine adult medical exam with abnormal findings, Obesity, Depression, Mixed hyperlipidemia, Flu-like symptoms, Need for hepatitis C screening test, BMI 40.0-44.9, adult, BMI 37.0-37.9, adult, Motion sickness, BMI 38.0-38.9,adult, Neoplasm of uncertain behavior of skin [facility] Phone Encounter On: 12-Aug-2017 9:05 Encounter Diagnosis: Left foot pain End: 12-Aug-2017 9:10 [facility] Phone Encounter On: 22-Jul-2017 15:44 Encounter Diagnosis: Insomnia End: 22-Jul-2017 15:46 [facility] Phone Encounter On: 22-Jul-2017 14:29 [facility] End: 22-Jul-2017 14:32 Office Visit On: 22-Jul-2017 7:06 Encounter Diagnosis: BMI 37.0-37.9, adult, Current nonsmoker (Renamed from Current non-smoker), Allergic rhinitis, ROSAMARIA on CPAP, Migraine, Menopausal state, Obesity, Mixed hyperlipidemia, Coronary artery disease due to lipid rich plaque, End: 22-Jul-2017 14:12 History of pulmonary embolism, Encounter for routine adult medical exam with abnormal findings, Benign essential hypertension, Abnormal fasting glucose, Trochanteric bursitis of both hips, Depression, Hip pain, Need for Tdap vaccination (Renamed from Need for dzuaycybyt-pyghcoy-sepycahbc (Tdap) vaccine, adult/adolescent), Thrombocytopenia, unspecified [facility] Lab Order On: 05-Jul-2017 16:43 Encounter Diagnosis: Benign essential hypertension End: 05-Jul-2017 16:47 [facility] Office Visit On: 24-Jun-2017 12:11 Encounter Reason: Follow up acute care visit - The patient feeling better since last seen. Patient has been compliant with instructions. Current medication use: no side effects and compliant with dosing regimen. Patient End: 24-Jun-2017 12:36 sleeps 7 hours per night. Impact of disease: emotional impact-moderate. Nutrition: balanced diet and supplemental vitamins. The medical issues the patient is following up for include URI.Encounter Diagnosis: BMI 38.0-38.9,adult, Current nonsmoker (Renamed from Current non-smoker), Cough (786.2) [facility] Office Visit On: 16-Jun-2017 10:19 Encounter Reason: Flu Like Symptoms - The last clinic visit was 4 day(s) ago. Symptoms include chills, sneezing, nasal congestion, hoarseness, productive cough, facial pressure and headache.Encounter Diagnosis: BMI 38.0-38.9,adult, Flu-like symptoms End: 16-Jun-2017 11:04 , Current nonsmoker (Renamed from Current non-smoker), Motion sickness [facility] Office Visit On: 29-Apr-2017 12:59 Encounter Reason: Sinusitis/ - The duration of the symptoms are 4 days The course has been increasing. The sinusitis/ has no relieving factors. Associated features include The symptoms have been associated with cough, ea End: 29-Apr-2017 14:35 r pain, nasal discharge/stuffy nose, sinus pain and teeth pain.Encounter Diagnosis: BMI 38.0-38.9,adult, Current nonsmoker (Renamed from Current non-smoker), Viral infection [facility] Phone Encounter On: 02-Apr-2017 10:43 Encounter Diagnosis: Encounter for screening mammogram for breast cancer (Renamed from Encounter for screening mammogram for malignant neoplasm of breast) End: 02-Apr-2017 10:44 [facility] Office Visit On: 15-Feb-2017 15:01 Encounter Diagnosis: BMI 39.0-39.9,adult, Current nonsmoker (Renamed from Current non-smoker), Hip pain, Trochanteric bursitis of both hips, Benign essential hypertension End: 15-Feb-2017 15:51 [facility] Historical Summary On: 16-Oct-2016 6:56 Encounter Diagnosis: Coronary artery disease due to lipid rich plaque End: 16-Oct-2016 6:58 [facility] Office Visit On: 15-Oct-2016 8:02 Encounter Reason: Follow up acute care visit - The patient does not feel well and worsening. Patient has been compliant with instructions. Current medication use: experiencing side effects (Wellbutrin cause an increase i End: 15-Oct-2016 8:38 n anxiety and agitation ) and compliant with dosing regimen. Patient sleeps 7 hours per night. Impact of disease: emotional impact-moderate. Nutrition: balanced diet and supplemental vitamins. The medic al issues the patient is following up for include other (anxiety, and adipex check ).Encounter Diagnosis: Mixed hyperlipidemia, BMI 39.0-39.9,adult, Chest pain at rest, Obesity, Benign essential hypertension [facility] Office Visit On: 17-Sep-2016 9:06 Encounter Reason: Follow up Meds - Patient has been compliant with instructions. Current medication use: no side effects. Patient sleeps 8 hours per night.Encounter Diagnosis: BMI 39.0-39.9,adult, Current nonsmoker (Renamed from Current non-smoker), End: 17-Sep-2016 9:49 History of pulmonary embolism, Benign essential hypertension, Chest pain at rest, Obesity [facility] Office Visit On: 10-Sep-2016 7:52 Encounter Reason: Follow up hospital - Reason for ER visit: note: (chest pain ). The patient feels well with minor complaints and has decreased energy level. Patient has been compliant with instructions. Current medicati End: 10-Sep-2016 10:00 on use: no side effects, compliant with dosing regimen and considered effective by patient. Patient sleeps 7 hours per night. Impact of disease: emotional impact-mild. Nutrition: balanced diet and suppl emental vitamins. The hospital results of the CT scan chest and stress test wereEncounter Diagnosis: BMI 39.0-39.9,adult, Current nonsmoker (Renamed from Current non- smoker), Chest pain at rest, Hypokalemia (276.8) [facility] Office Visit On: 04-Sep-2016 8:58 Encounter Diagnosis: Chest pain at rest, Current nonsmoker (Renamed from Current non-smoker) End: 07-Sep-2016 7:33 [facility] Office Visit On: 27-Aug-2016 14:54 Encounter Diagnosis: BMI 40.0-44.9, adult, Current nonsmoker (Renamed from Current non-smoker), Prediabetes, Depression, Obesity End: 27-Aug-2016 15:50 [facility] Office Visit On: 09-Jun-2016 7:53 Encounter Diagnosis: BMI 38.0-38.9,adult, Current nonsmoker (Renamed from Current non-smoker), Well woman exam, Menopausal state, Chronic gastroesophageal reflux disease, ROSAMARIA on CPAP, Mixed hyperlipidemia, Benign essential hypertension, End: 09-Jun-2016 13:40 History of pulmonary embolism, Pulmonary emboli, Allergic rhinitis, Obesity, Prediabetes, Neuropathic pain, leg, bilateral, Migraine, Depression, BMI 37.0-37.9, adult, Acute leg pain, right, Need for hepatitis C screening test, Thrombocytopenia, unspecified [facility] Office Visit On: 01-May-2016 13:17 Encounter Reason: Follow up acute care visit - The patient feeling better since last seen and improving. Patient has been compliant with instructions. Current medication use: no side effects, compliant with dosing regime End: 01-May-2016 14:00 n and considered effective by patient. Patient sleeps 7 hours per night. Impact of disease: emotional impact-mild. Nutrition: balanced diet and supplemental vitamins. The medical issues the patient is following up for include other (knee pain ). Encounter Diagnosis: Neuropathic pain, leg, bilateral, Current nonsmoker (Renamed from Current non-smoker), Acute leg pain, right, Prediabetes, Obesity [facility] Office Visit On: 21-Apr-2016 10:47 Encounter Diagnosis: Chest pain at rest, Current nonsmoker (Renamed from Current non-smoker), Acute leg pain, right End: 27-Apr-2016 10:28 [facility] Phone Encounter On: 20-Apr-2016 13:13 Encounter Diagnosis: Acute leg pain, right End: 20-Apr-2016 13:17 [facility] Office Visit On: 26-Mar-2016 10:23 Encounter Reason: Follow up acute care visit - The patient feeling better since last seen and improving. Patient has been compliant with instructions. Current medication use: no side effects, compliant with dosing regime End: 26-Mar-2016 10:54 n and considered effective by patient. Patient sleeps 7 hours per night. Impact of disease: emotional impact-mild. Nutrition: balanced diet and supplemental vitamins. The medical issues the patient is following up for include depression. Encounter Diagnosis: Depression, Current nonsmoker (Renamed from Current non-smoker), Prediabetes, Neuropathic pain, leg, bilateral, Obesity [facility] Office Visit On: 27-Feb-2016 8:41 Encounter Reason: Follow up for chronic medical issues - The patient feels well with minor complaints (very stressed, victoza is an issue with the insurance, so has been on and off it, and her ins won't recognise it. It End: 27-Feb-2016 9:25 doesn't work, to see enough results, so not worth the money). Patient has been compliant with instructions. Current medication use: no side effects. Patient sleeps 6 (with the ambien, but stopped wellbr utron because she felt it was counter acting with each one) hours per night. Impact of disease: no overall impact. Nutrition: balanced diet. weight :.Encounter Diagnosis: BMI 37.0-37.9, adult, Current nonsmoker (Renamed from Current non-smoker), Encounter for screening mammogram for breast cancer (Renamed from Encounter for screening mammogram for malignant neoplasm of breast), Neuropathic pain, leg, bilateral, Prediabetes, Depression [facility] Office Visit On: 22-Jan-2016 12:02 Encounter Reason: Follow up acute care visit - The patient feeling better since last seen and improving. Patient has been compliant with instructions. Current medication use: no side effects and compliant with dosing reg End: 22-Jan-2016 13:02 imen. Patient sleeps 7 hours per night. Impact of disease: emotional impact-mild. Nutrition: balanced diet and supplemental vitamins. The medical issues the patient is following up for include other (pleurisy and leg sensitivity ). Encounter Diagnosis: Neuropathic pain, leg, bilateral, Current nonsmoker (Renamed from Current non-smoker), Prediabetes, Obesity, Depression, ROSAMARIA on CPAP [facility] Office Visit On: 06-Dec-2015 12:58 Encounter Reason: Follow up ER - Reason for hospitalization note: (chest pain ). Patient has been compliant with instructions. Current medication use: no side effects, compliant with dosing regimen and considered effecti End: 06-Dec-2015 13:51 ve by patient. The patient feels well with minor complaints and has decreased energy level. Patient sleeps 7 hours per night. Impact of disease: emotional impact- mild. Nutrition: balanced diet and supplemental vitamins.Encounter Diagnosis: Chest pain at rest, Current nonsmoker (Renamed from Current non-smoker), History of pulmonary embolism, Prediabetes [facility] Office Visit On: 23-Sep-2015 15:08 Encounter Reason: Follow up for chronic medical issues - The patient feels well with minor complaints and has decreased energy level. Patient has been compliant with instructions. Current medication use: no side effects, End: 24-Sep-2015 9:11 compliant with dosing regimen and considered effective by patient. Patient sleeps 7 hours per night. Impact of disease: emotional impact-mild. Nutrition: balanced diet and supplemental vitamins. The me dical issues the patient is following up for include blood sugar issues, gastric reflux, high blood pressure and other (migraine, ROSAMARIA on cpap, migraines, allergic rhinitis ).Encounter Diagnosis: Obesity, Current nonsmoker (Renamed from Current non-smoker), ROSAMARIA on CPAP, Migraine, Pulmonary emboli, GERD (gastroesophageal reflux disease), Well woman exam, Benign essential hypertension, Prediabetes, Mixed hyperlipidemia, Allergic rhinitis [facility] Office Visit On: 19-Jun-2015 13:45 Encounter Reason: Follow up for chronic medical issues - The patient feels well with minor complaints (victoza), has good energy level and is sleeping well. Patient has been compliant with instructions. Current medicatio End: 19-Jun-2015 14:52 n use: no side effects, compliant with dosing regimen and not considered effective by patient (victoza). Patient sleeps 7 hours per night. Impact of disease: emotional impact-mild. Nutrition: balanced d iet and supplemental vitamins. The medical issues the patient is following up for include blood sugar issues, cardiac issues, gastric reflux, high blood pressure, high cholesterol, osteoporosis/osteopenia and other (obesity, hx. PE, ROSAMARIA ). Encounter Diagnosis: GERD (gastroesophageal reflux disease), Current nonsmoker (Renamed from Current non-smoker), Well woman exam, ROSAMARIA on CPAP, Migraine, Prediabetes, Obesity, Pulmonary emboli, Mixed hyperlipidemia, Allergic rhinitis, Benign essential hypertension [facility] Phone Encounter On: 19-Apr-2015 15:24 Encounter Diagnosis: Prediabetes End: 19-Apr-2015 15:27 [facility] Office Visit On: 18-Apr-2015 9:08 Encounter Reason: Follow up acute care visit - The patient feels the same. Patient has been compliant with instructions. Current medication use: no side effects, compliant with dosing regimen and considered effective by End: 18-Apr-2015 10:20 patient. Patient sleeps 7 hours per night. Impact of disease: emotional impact-mild. Nutrition: balanced diet and supplemental vitamins. The medical issues the patient is following up for include other (weight check with victoza ). Encounter Diagnosis: Obesity (278.00), Current nonsmoker (Renamed from Current non- smoker), Need for prophylactic vaccination and inoculation against influenza, Prediabetes [facility] Office Visit On: 21-Feb-2015 9:30 Encounter Reason: Follow up, Diagnostic Procedure Results - Diagnostic tests include other (labs ). Date: (02-15-15).Encounter Diagnosis: Nausea, Gerd (530.81), Abdominal pain (789.00), Other Abnormal Glucose, Pre-diabetes (790.29) End: 21-Feb-2015 10:16 [facility] Office Visit On: 15-Feb-2015 10:52 Encounter Diagnosis: Abdominal pain (789.00), Chest pain at rest End: 15-Feb-2015 14:42 [facility] Office Visit On: 04-Feb-2015 8:22 Encounter Reason: Follow up for chronic medical issues - The patient feels well with minor complaints, has good energy level and is sleeping well. Patient has been compliant with instructions. Current medication use: no End: 04-Feb-2015 8:49 side effects, compliant with dosing regimen and not considered effective by patient (bydureon ). Patient sleeps 7 hours per night. Impact of disease: emotional impact-mild. Nutrition: balanced diet and supplemental vitamins. The medical issues the patient is following up for include blood sugar issues, cardiac issues, gastric reflux, high blood pressure, high cholesterol, osteoporosis/osteopenia and other (obesity, hx. PE, ROSAMARIA ). Encounter Diagnosis: Pulmonary emboli, Well Woman Exam (V72.31) (Pap,Mammo,Routine Female) (Renamed from Well Woman V72.31 (p,m)), Obstructive sleep apnea (327.23), Gerd (530.81), Allergic rhinitis (477.9), Mixed hyperlipidemia (272.2), Headache,Migraine (346.00), Other Abnormal Glucose, Pre-diabetes (790.29), Benign essential hypertension (401.1), Obesity (278.00) [facility] Phone Encounter On: 14-Jan-2015 10:25 Encounter Diagnosis: Other Abnormal Glucose, Pre-diabetes (790.29) End: 14-Jan-2015 10:27 [facility] Phone Encounter On: 11-Jan-2015 8:40 Encounter Diagnosis: Headache,Migraine (346.00) End: 11-Jan-2015 8:44 [facility] Office Visit On: 24-Dec-2014 8:23 Encounter Reason: Follow up MedsEncounter Diagnosis: Obesity (278.00), Benign essential hypertension (401.1), Pulmonary emboli, Other Abnormal Glucose, Pre-diabetes (790.29) End: 24-Dec-2014 8:55 [facility] Lab Order On: 05-Nov-2014 9:00 Encounter Diagnosis: SCREENING FOR BREAST CANCER (V76.10) End: 05-Nov-2014 9:05 [facility] Office Visit On: 05-Nov-2014 8:28 Encounter Reason: Follow up for chronic medical issues - The patient feels well with minor complaints, has good energy level and is sleeping poorly. Patient has been compliant with instructions. Current medication use: n End: 05-Nov-2014 8:56 o side effects. Patient sleeps 3 hours per night. Impact of disease: emotional impact- mild. Nutrition: balanced diet and supplemental vitamins. The medical issues the patient is following up for include blood sugar issues, cardiac issues, depression, gastric reflux, high blood pressure, high cholesterol and other (ROSAMARIA, thrombocytopenia, obesity, allergic rhinitis, migraine )., [ADDITIONAL REASON] Follow up tests - Date: (10/29/14 blood work). Encounter Diagnosis: Other Abnormal Glucose, Pre-diabetes (790.29), Benign essential hypertension (401.1), Obesity (278.00), Pulmonary emboli, Mixed hyperlipidemia (272.2), Well Woman Exam (V72.31) (Pap,Mammo,Routine Female) (Renamed from Well Woman V72.31 (p,m)), Obstructive sleep apnea (327.23), Allergic rhinitis (477.9), Gerd (530.81), Chest pain at rest, Lumbago, Left knee pain, Pleurisy, Headache,Migraine (346.00) [facility] Office Visit On: 03-Sep-2014 9:41 Encounter Reason: Follow up acute care visit - The patient feels the same. Patient has been compliant with instructions. Current medication use: experiencing side effects (?xarelto causing side effects ). Patient sleeps End: 03-Sep-2014 10:40 7 hours per night. Impact of disease: emotional impact-mild. Nutrition: balanced diet and supplemental vitamins. The medical issues the patient is following up for include other (fu on adipex ).Encounter Diagnosis: Obesity (278.00), Lumbago [facility] Office Visit On: 06-Aug-2014 9:02 Encounter Reason: Follow up acute care visit - The patient feeling better since last seen and improving. Patient has been compliant with instructions. Current medication use: no side effects, compliant with dosing regime End: 06-Aug-2014 9:57 n and considered effective by patient. Patient sleeps 7 hours per night. Impact of disease: emotional impact-mild. Nutrition: balanced diet and supplemental vitamins. The medical issues the patient is following up for include other (PE post op ). Encounter Diagnosis: Obesity (278.00), Pulmonary emboli, Hypokalemia (276.8), Benign essential hypertension (401.1) [facility] Refill Request On: 23-Jul-2014 17:12 Encounter Diagnosis: Pulmonary emboli End: 23-Jul-2014 17:14 [facility] Office Visit On: 23-Jul-2014 9:18 Encounter Reason: Follow up Meds - The patient feels well with minor complaints, has good energy level and is sleeping well. Patient has been compliant with instructions. Current medication use: no side effects and compl End: 23-Jul-2014 10:04 iant with dosing regimen. Patient sleeps 8 hours per night. Nutrition: balanced diet and supplemental vitamins.Encounter Diagnosis: Pleurisy, Chest pain at rest [facility] Office Visit On: 05-Jul-2014 8:18 Encounter Reason: Chest Pain - The last clinic visit was 6 day(s) ago. No changes in management were made at the last visit. Symptoms include chest pain. The pain is located in the substernal area. There is no radiation. End: 05-Jul-2014 9:06 The patient describes the pain as burning. There is no known event that preceded symptom onset. The symptoms occur intermittently. The patient describes this as severe.Encounter Diagnosis: Chest pain (786.59), Pleurisy [facility] Refill Request On: 29-Jun-2014 11:40 Encounter Diagnosis: Obesity (278.00) End: 29-Jun-2014 11:47 [facility] Office Visit On: 25-Jun-2014 9:07 Encounter Reason: Follow up acute care visit - The patient feeling better since last seen and improving. Patient has been compliant with instructions. Current medication use: no side effects, compliant with dosing regime End: 25-Jun-2014 9:49 n and considered effective by patient. Patient sleeps 7 hours per night. Impact of disease: emotional impact-mild. Nutrition: balanced diet and supplemental vitamins. The medical issues the patient is following up for include other (obesity ). Encounter Diagnosis: Obesity (278.00), Benign essential hypertension (401.1) [facility] Office Visit On: 28-May-2014 9:09 Encounter Reason: Follow up acute care visit - The patient feels the same. Patient has been compliant with instructions. Current medication use: experiencing side effects (med in hosp caused a out of body sensation) an End: 28-May-2014 9:33 d compliant with dosing regimen. Patient sleeps 7 hours per night. Nutrition: balanced diet., [ADDITIONAL REASON] Follow up tests - Date: (03/2014). Encounter Diagnosis: Other Abnormal Glucose, Pre-diabetes (790.29), Mixed hyperlipidemia (272.2), Gerd (530.81), Left knee pain, Well Woman Exam (V72.31) (Pap,Mammo,Routine Female) (Renamed from Well Woman V72.31 (p,m)), Allergic rhinitis (477.9), Obesity (278.00), Benign essential hypertension (401.1), Headache,Migraine (346.00), Obstructive sleep apnea (327.23) [facility] Office Visit On: 26-Apr-2014 9:01 Encounter Reason: Follow up acute care visit - The patient feeling better since last seen and improving. Patient has been compliant with instructions. Current medication use: no side effects, compliant with dosing regime End: 26-Apr-2014 9:58 n and considered effective by patient. Patient sleeps 7 hours per night. Impact of disease: emotional impact-mild. Nutrition: balanced diet and supplemental vitamins. The medical issues the patient is following up for include other (weight check ). Encounter Diagnosis: Obesity (278.00), UTI (lower urinary tract infection), Obstructive sleep apnea (327.23), Benign essential hypertension (401.1), Other Abnormal Glucose, Pre-diabetes (790.29), SCREENING FOR BREAST CANCER (V76.10) [facility] Office Visit On: 27-Mar-2014 7:52 Encounter Reason: Follow up tests - Date: (labs 03/09/14)., [ADDITIONAL REASON] Follow up for chronic medical issues - The patient feels well with minor complai End: 27-Mar-2014 8:38 nts, has good energy level and is sleeping poorly. Patient has been compliant with instructions. Current medication use: no side effects. Patient sleeps 3 hours per night. Impact of disease: emotional i mpact-mild. Nutrition: balanced diet and supplemental vitamins. The medical issues the patient is following up for include blood sugar issues, cardiac issues, depression, gastric reflux, high blood pres sure, high cholesterol and other (ROSAMARIA, thrombocytopenia, obesity, allergic rhinitis, migraine ). Encounter Diagnosis: Other Abnormal Glucose, Pre-diabetes (790.29), Need for prophylactic vaccination and inoculation against influenza (V04.81), SCREENING FOR BREAST CANCER (V76.10), Benign essential hypertension (401.1), Gerd (530.81), Headache,Migraine (346.00), Allergic rhinitis (477.9), Obstructive sleep apnea (327.23), Sinusitis, Post-menopausal bleeding (627.1), Left knee pain, Mixed hyperlipidemia (272.2), Well Woman Exam (V72.31) (Pap,Mammo,Routine Female) (Renamed from Well Woman V72.31 (p,m)), Obesity (278.00) [facility] Phone Encounter On: 14-Mar-2014 11:41 Encounter Diagnosis: Hypokalemia (276.8) End: 14-Mar-2014 11:46 [facility] Phone Encounter On: 11-Mar-2014 10:41 [facility] End: 11-Mar-2014 10:41 Office Visit On: 10-Oct-2013 7:58 Encounter Reason: Follow up for chronic medical issues - The patient feels well with minor complaints, has good energy level and is sleeping well. Patient has been compliant with instructions. Current medication use: no End: 10-Oct-2013 8:36 side effects. Patient sleeps 7 hours per night. Impact of disease: emotional impact- mild. Nutrition: balanced diet and supplemental vitamins. The medical issues the patient is following up for include b lood sugar issues, cardiac issues, depression, gastric reflux, high blood pressure, high cholesterol and other (ROSAMARIA, thrombocytopenia, obesity, allergic rhinitis, migraine ).Encounter Diagnosis: Other Abnormal Glucose, Pre-diabetes (790.29), Mixed hyperlipidemia (272.2), Allergic rhinitis (477.9), Obstructive sleep apnea (327.23), Headache,Migraine (346.00), Benign essential hypertension (401.1), Post-menopausal bleeding (627.1), Gerd (530.81), Dehydration, Nausea, ORTHOSTATICS BP/P, Sinusitis, Well Woman Exam (V72.31) (Pap,Mammo,Routine Female) (Renamed from Well Woman V72.31 (p,m)), Obesity (278.00), Thrombocytopenia, unspecified (287.5), Left knee pain [facility] Office Visit On: 22-Sep-2013 9:38 Encounter Reason: Follow up ER - Reason for hospitalization note: (dehydration).Encounter Diagnosis: Dehydration, Nausea, ORTHOSTATICS BP/P, Gastroenteritis End: 22-Sep-2013 15:01 [facility] Office Visit On: 10-Jul-2013 8:34 Encounter Reason: Sinusitis - Symptoms include nasal congestion, cheek pressure, upper tooth pain, forehead pressure, cough and headache, while symptoms do not include postnasal drainage. Onset was day(s) ago. Associated End: 10-Jul-2013 8:57 symptoms do not include chills or fever.Encounter Diagnosis: Sinusitis [facility] Office Visit On: 05-Jun-2013 8:11 Encounter Reason: Follow up for chronic medical issues - The patient feels well with minor complaints, has good energy level and is sleeping well. Patient has been compliant with instructions. Current medication use: no End: 05-Jun-2013 8:45 side effects, compliant with dosing regimen and considered effective by patient. Patient sleeps 7 hours per night. Impact of disease: emotional impact-mild. Nutrition: balanced diet and supplemental vit amins. The medical issues the patient is following up for include blood sugar issues, cardiac issues, depression, gastric reflux, high blood pressure, high cholesterol and other (ROSAMARIA, thrombocytopenia, obesity, allergic rhinitis, migraine ). Encounter Diagnosis: Other Abnormal Glucose, Pre-diabetes (790.29), Allergic rhinitis (477.9), Depression (311.), Post-menopausal bleeding (627.1), Fatigue (780.79), Mixed hyperlipidemia (272.2), Obstructive sleep apnea (327.23), Thrombocytopenia, unspecified (287.5), Obesity (278.00), Benign essential hypertension (401.1), Well Woman Exam (V72.31) (Pap,Mammo,Routine Female) (Renamed from Well Woman V72.31 (p,m)), Gerd (530.81), Headache,Migraine (346.00) [facility] Office Visit On: 04-Apr-2013 9:59 Encounter Reason: Adipex visit - Exercises 3 times per week. other (SUGAR BUSTWERS).Encounter Diagnosis: Obesity (278.00), Benign essential hypertension (401.1) End: 04-Apr-2013 10:46 [facility] Office Visit On: 07-Mar-2013 10:42 Encounter Reason: Follow up Meds - Current medication use: no side effects.Encounter Diagnosis: Obesity (278.00) End: 07-Mar-2013 11:16 [facility] Office Visit On: 22-Feb-2013 8:14 Encounter Reason: Weight LossEncounter Diagnosis: Benign essential hypertension (401.1) End: 23-Feb-2013 20:54 [facility] Office Visit On: 06-Feb-2013 8:23 Encounter Reason: Follow up for chronic medical issues - The patient feels well with minor complaints, has decreased energy level and is sleeping poorly. Patient has been compliant with instructions. Current medication u End: 06-Feb-2013 21:51 se: no side effects, compliant with dosing regimen and considered effective by patient. Patient sleeps 5 hours per night. Impact of disease: emotional impact-mild. Nutrition: balanced diet and supplemen sushma vitamins. The medical issues the patient is following up for include blood sugar issues, cardiac issues, depression (anxiety ), high blood pressure, high cholesterol and other (allergic rhinitis, obesity, ROSAMARIA, hx. postmenopausal bleeding ). Encounter Diagnosis: Other Abnormal Glucose, Pre-diabetes (790.29), SHINGLES,NEED FOR PROPHYLACTIC VACCINATION AND INOCULATION AGAINST (V05.8), SCREENING FOR BREAST CANCER (V76.10), Allergic rhinitis (477.9), Depression (311.), Well Woman Exam (V72.31) (Pap,Mammo,Routine Female) (Renamed from Well Woman V72.31 (p,m)), Headache,Migraine (346.00), Gerd (530.81), Thrombocytopenia, unspecified (287.5), Fatigue (780.79), Obstructive sleep apnea (327.23), Post-menopausal bleeding (627.1), Obesity (278.00), Mixed hyperlipidemia (272.2), Benign essential hypertension (401.1) [facility] Office Visit On: 18-Jan-2013 10:10 Encounter Reason: Postmenopausal Bleeding - Symptoms include postmenopausal bleeding, pelvic cramping, pelvic discomfort, pelvic pain and abdominal distention. The patient describes the bleeding as brown. Onset was sudde End: 18-Jan-2013 11:08 n 1 day(s) ago. There is no known event that preceded symptom onset. The symptoms occur constantly. The patient describes this as moderate in severity and unchanged. Associated symptoms include fatigue, while associated symptoms do not include painful urination, painful bowel movements, anorexia, nausea, lightheadedness or palpitations.Encounter Diagnosis: Post- menopausal bleeding (627.1), Abdominal pain (789.00) [facility] Office Visit On: 12-Jul-2012 15:18 Encounter Reason: Follow up for chronic medical issues - The patient feels well with minor complaints, has decreased energy level and is sleeping poorly. Patient has been compliant with instructions. Current medication u End: 12-Jul-2012 15:38 se: no side effects and compliant with dosing regimen. Patient sleeps 4 (4-5 hours x 1 year and the trazadone was d/c - makes me feel goofy) hours per night. Impact of disease: emotional impact-modera te. Nutrition: balanced diet and supplemental vitamins. The medical issues the patient is following up for include blood sugar issues, cardiac issues, depression, gastric reflux, high blood pressure, hi gh cholesterol and other (Obesity, ROSAMARIA, thrombocytopenia ).Encounter Diagnosis: Depression (311.), Benign essential hypertension (401.1), Fatigue (780.79), SYMPTOMS INVOLVING CARDIOVASCULAR SYSTEM; ENLARGEMENT OF LYMPH NODES (785.6), Impaired fasting glucose (790.21), PROBLEMS W/SMELL/TASTE (V41.5), Limb pain (729.5), Other specified visual disturbances (368.8), Obstructive sleep apnea (327.23), Mixed hyperlipidemia (272.2), Well Woman Exam (V72.31) (Pap,Mammo,Routine Female) (Renamed from [employer] Woman V72.31 (p,m)), Obesity (278.00), Thrombocytopenia, unspecified (287.5), Allergic rhinitis (477.9), Gerd (530.81), Otitis media (382.9), Nonsuppurative otitis media, not specified as acute or chronic (381.4), Nausea and vomiting (787.01), Headache,Migraine (346.00), WWV V73.21, Hypertriglycerides (272.1), Hypokalemia (276.8), Urinary frequency (788.41), Other Abnormal Glucose, Pre-diabetes (790.29) [facility] Office Visit On: 06-Oct-2011 13:15 Encounter Reason: Follow up for chronic medical issues - The patient feels well with minor complaints, has decreased energy level and is sleeping poorly. Patient has been compliant with instructions. Current medication u End: 06-Oct-2011 13:52 se: no side effects and compliant with dosing regimen. Patient sleeps 7 hours per night. Impact of disease: emotional impact-moderate. Nutrition: balanced diet and supplemental vitamins. The medical iss ues the patient is following up for include blood sugar issues, cardiac issues, depression, gastric reflux, high blood pressure, high cholesterol and other (Obesity, ROSAMARIA, thrombocytopenia ).Encounter Diagnosis: Depression (311.), Impaired fasting glucose (790.21), Obstructive sleep apnea (327.23), Thrombocytopenia, unspecified (287.5), Obesity (278.00), Benign essential hypertension (401.1), Allergic rhinitis (477.9), Gerd (530.81), Mixed hyperlipidemia (272.2), Well Woman Exam (V72.31) (Pap,Mammo,Routine Female) (Renamed from [employer] Woman V72.31 (p,m)) [facility] Annotation/Addendum On: 28-Nov-2010 9:33 Encounter Diagnosis: Well Woman Exam (V72.31) (Pap,Mammo,Routine Female) (Renamed from [employer] Woman V72.31 (p,m)) End: 28-Nov-2010 10:24 [facility] Office Visit On: 28-Nov-2010 7:36 Encounter Reason: Well Women Exam - The patient feels well with minor complaints, has good energy level and is sleeping well. Pap smear: date of last pap: (approx 4 years ago ). Contraceptive history: The patient is not End: 28-Nov-2010 8:11 using any method of contraception at this time. Patient does not exercise. The patient's libido is normal. The patient reports that she performs monthly self breast exam. Calcium intake includes 2 serving(s) milk daily.[facility] Office Visit On: 13-Nov-2010 12:21 Encounter Reason: Preoperative evaluation - The patient feels well with no complaints, has good energy level and is sleeping well. Surgical procedures include: other (left knee arthroscopy ). Date of procedure: (will be End: 13-Nov-2010 13:[address] Burt ) . There have been no problems with general anesthesia or blood/blood products. Prosthetics include: eye glasses.Encounter Diagnosis: Depression (311.), Impaired fasting glucose (790.21), Mixed hyperlipidemia (272.2), Thrombocytopenia, unspecified (287.5), Pre-operative examination, unspecified (V72.84), Obstructive sleep apnea (327.23), Chest pain (786.59) [facility] Phone Encounter On: 23-Oct-2010 10:23 Encounter Diagnosis: SYMPTOMS INVOLVING CARDIOVASCULAR SYSTEM; ENLARGEMENT OF LYMPH NODES (785.6) End: 23-Oct-2010 10:24 [facility] Office Visit On: 23-Oct-2010 9:55 Encounter Diagnosis: Obstructive sleep apnea (327.23), Obesity (278.00), Depression (311.), Chest pain (786.59) End: 23-Oct-2010 10:18 [facility] Office Visit On: 20-Aug-2010 15:50 Encounter Reason: Follow up acute care visit - The patient feels the same. Patient has been compliant with instructions. Current medication use: no side effects and compliant with dosing regimen.Encounter Diagnosis: PROBLEMS W/SMELL/TASTE (V41.5) End: 20-Aug-2010 16:11 [facility] Office Visit On: 04-Aug-2010 14:57 Encounter Reason: Skin problems - The onset of the skin problem has been gradual and has been occurring in an intermittent pattern for 2 months. The course has been recurrent. The skin problem is described as moderate.Encounter Diagnosis: End: 04-Aug-2010 15:50 PROBLEMS W/SMELL/TASTE (V41.5) [facility] Office Visit On: 11-Jun-2010 10:12 Encounter Reason: Cold Symptoms - Symptoms include scratchy throat (raw from coughing but not sore), hoarseness (no voice), productive cough (yellow --been using the nasal simply saline and that is helping) and headache.Encounter Diagnosis: End: 11-Jun-2010 10:42 Cough (786.2), Laryngitis (464.00), BRONCHITIS, NOT SPECIFIED ACUTE OR CHRONIC (490.) [facility] Office Visit On: 02-May-2010 9:50 Encounter Reason: Follow up for chronic medical issues - The patient feels well with minor complaints, has good energy level and is sleeping well. Patient has been compliant with instructions. Current medication use: no End: 02-May-2010 10:29 side effects, compliant with dosing regimen and considered effective by patient. Patient sleeps 7 hours per night. Impact of disease: emotional impact-mild. Nutrition: balanced diet and supplemental vit amins. The medical issues the patient is following up for include cardiac issues, depression, gastric reflux, high blood pressure, high cholesterol and other (obesity, ROSAMARIA ).Encounter Diagnosis: Allergic rhinitis (477.9), Benign essential hypertension (401.1), Depression (311.), Obesity (278.00), Obstructive sleep apnea (327.23), Thrombocytopenia, unspecified (287.5), Gerd (530.81), Hypertriglycerides (272.1), SYMPTOMS INVOLVING CARDIOVASCULAR SYSTEM; ENLARGEMENT OF LYMPH NODES (785.6), Impaired fasting glucose (790.21), Mixed hyperlipidemia (272.2) [facility] Office Visit On: 14-Feb-2010 8:01 Encounter Reason: Cold Symptoms - Symptoms include sneezing ,nasal congestion ,runny nose ,dry cough ,facial pressure ,facial pain and headache, while symptoms do not include sore throat or hoarseness. Onset was sudden 1 End: 14-Feb-2010 8:18 day(s) ago. There is no known event that preceded symptom onset. The symptoms occur constantly. The patient describes this as severe and worsening. Symptoms are not relieved by non-prescription cold me dications. Associated symptoms include ear pain and chills, while associated symptoms do not include plugged ear(s) ,wheezing ,shortness of breath ,nausea ,vomiting ,diarrhea or fever. Current treatment includes non-prescription cold medication (benedryl). Note for Cold Symptoms: Pt just flew home from [place] yesterday.- yellow green nasal discharge- sx for one day -alot of facial swelling and pain- started with some benadrylEncounter Diagnosis: Allergic rhinitis (477.9), Acute sinusitis (461.9) [facility] Office Visit On: 20-Dec-2009 8:32 Encounter Reason: Follow up, Laboratory Test Results - Lab results: abnormal blood chemistry and abnormal blood lipids. Date: (11-13-09). Current symptoms/reason for visit include/s Follow up visit with no current symptom End: 20-Dec-2009 9:06 s. Past medical history includes elevated cholesterol ,elevated triglycerides ,emotional problems ,gastroesophageal reflux disease and other (obesity, migraines, fatigue). Encounter Diagnosis: Obesity (278.00), Gerd (530.81), Hypertriglycerides (272.1), Benign essential hypertension (401.1), Obstructive sleep apnea (327.23), Other specified visual disturbances (368.8), Fatigue (780.79), Limb pain (729.5), SYMPTOMS INVOLVING CARDIOVASCULAR SYSTEM; ENLARGEMENT OF LYMPH NODES (785.6), Depression (311.), Impaired fasting glucose (790.21), Thrombocytopenia, unspecified (287.5) [facility] Office Visit On: 13-Nov-2009 7:59 Encounter Reason: Follow up for chronic medical issues - The patient feels well with minor complaints ,has decreased energy level and is sleeping well. Patient has been compliant with instructions. Current medication use End: 13-Nov-2009 8:48 : no side effects. Patient sleeps 8 hours per night. Nutrition: balanced diet. The medical issues the patient is following up for include All identified problems below ,depression ,high blood pressure ,high cholesterol and other (hypokalemia). Encounter Diagnosis: Unspecified Diagnosis, Fatigue (780.79), Viral infection, unspecified (079.99), ACUTE PHARYNGITIS (462.), Obesity (278.00), Depression (311.), SYMPTOMS INVOLVING CARDIOVASCULAR SYSTEM; ENLARGEMENT OF LYMPH NODES (785.6), Candidiasis of vulva and vagina (112.1), Hypertriglycerides (272.1), Hypokalemia (276.8), Urinary frequency (788.41), Limb pain (729.5), Gerd (530.81), Benign essential hypertension (401.1), Other specified visual disturbances (368.8), WWV V73.21, Obstructive sleep apnea (327.23) [facility] Historical Summary On: 30-Jul-2009 11:53 [facility] End: 30-Jul-2009 15:31 Office Visit On: 29-Jul-2009 13:08 Encounter Diagnosis: Unspecified Diagnosis End: 29-Jul-2009 13:09 [facility] Office Visit On: 23-Jul-2009 8:01 Encounter Reason: Sore throat - The onset of the sore throat has been sudden and has been occurring in a persistent pattern for 2 days. The course has been worsening. The symptoms have been associated with change in voic End: 23-Jul-2009 8:23 e ,chills ,cough ,difficulty in swallowing ,fever ,recent contact with a person with sore throat ,runny nose (yellow now pink and green) ,sinus pain and swelling of neck glands, while the symptoms have not been associated with foreign body sensation in throat ,difficulty in breathing ,ear pain ,non-purulent sputum ,post-nasal drip ,purulent sputum or sensation of tightness in substernal area. Encounter Diagnosis: Viral infection, unspecified (079.99), ACUTE PHARYNGITIS (462.) [facility] Phone Encounter On: 28-Feb-2009 14:48 [facility] End: 28-Feb-2009 14:49 Office Visit On: 01-Feb-2009 11:15 Encounter Diagnosis: Hypertriglycerides (272.1), Hypokalemia (276.8), Urinary frequency (788.41), Candidiasis of vulva and vagina (112.1) End: 01-Feb-2009 11:38 [facility] Office Visit On: 23-Jan-2009 8:10 Encounter Reason: vaginal itching - The discharge has been occurring for 1 days and has been increasing. The discharge has been light and is characterized as clear and milky. The symptoms have been associated with perine End: 23-Jan-2009 8:26 al pain. There is no history of sexual contact with a person having an STD ,use of tampons ,possible vaginal foreign body or douching. There is a medical history of recurrent urinary tract infections, w hile there is no history of diabetes ,recent ,immunosuppression or rectovaginal fistula. The patient has been using antibiotics (currently on atb). Encounter Diagnosis: Candidiasis of vulva and vagina (112.1) [facility] Historical Summary On: 18-Jan-2009 12:52 [facility] End: 18-Jan-2009 12:53 Office Visit On: 17-Jan-2009 13:34 Encounter Diagnosis: Benign essential hypertension (401.1), Depression (311.), Urinary frequency (788.41), Other specified visual disturbances (368.8), Hypertriglycerides (272.1), WWV V73.21, Obesity (278.00), End: 17-Jan-2009 14:09 SYMPTOMS INVOLVING CARDIOVASCULAR SYSTEM; ENLARGEMENT OF LYMPH NODES (785.6), Limb pain (729.5), Gerd (530.81), Fatigue (780.79) [facility] Phone Encounter On: 07-Jan-2009 14:46 [facility] End: 07-Jan-2009 14:48 Historical Summary On: 19-Dec-2008 10:58 [facility] End: 19-Dec-2008 11:00 Office Visit On: 12-Jul-2008 10:47 Encounter Reason: Earache - The onset of the pain has been sudden and has been occurring in a persistent pattern for 5 days. The course has been decreasing. The pain is described as a mild dull aching. The pain is descri End: 12-Jul-2008 11:16 bed as being located in the inner ear. The pain is felt in the right ear. The symptoms have been associated with sinus problems, while the symptoms have not been associated with chills ,decreased hearin g ,fever ,non-purulent discharge from ear ,purulent discharge from ear or sore throat. Note for Earache: still on augmentin and nasonex- she feels better ==cough getting better but ear pluggedEncounter Diagnosis: Nonsuppurative otitis media, not specified as acute or chronic (381.4), Benign essential hypertension (401.1) [facility] Office Visit On: 04-Jul-2008 13:49 Encounter Reason: Cough - The onset of the cough has been sudden and 3 weeks ago. The cough is characterized as dry. The cough occurs all the time. The symptoms are aggravated by supine posture and meals. The symptoms bran End: 04-Jul-2008 14:38 ve been associated with hoarseness and runny nose, while the symptoms have not been associated with fever ,headache ,sore throat or wheezing. Note for Cough: her father just last week- thinks this is why bp upEncounter Diagnosis: Acute sinusitis (461.9), Otitis media (382.9) [facility] Office Visit On: 25-Apr-2008 13:37 Encounter Reason: Headache/ - The onset of the headache/ has been sudden and has been occurring in a persistent pattern for 8 hours. The course has been increasing in severity. The headache/ is characterized as a dull ac End: 25-Apr-2008 15:42 he. The headache/ is described as being located in the frontal area. The symptoms are aggravated by noise and bright light. The symptoms have been associated with vomiting. Encounter Diagnosis: Headache,Migraine (346.00), Nausea and vomiting (787.01) [facility] Office Visit On: 28-Oct-2007 13:10 Encounter Reason: Lumps - The onset of the lumps has been acute and has been occurring in a persistent pattern for 4 days. The course has been increasing. The lumps are described as mild. Note for Lumps: behind left ear Encounter Diagnosis: End: 28-Oct-2007 13:35 lymphadenopathy [facility] Refill Request On: 14-Oct-2007 8:07 [facility] End: 14-Oct-2007 8:08 Historical Summary On: 28-Jan-2007 10:36 [facility] End: 28-Jan-2007 10:37 Historical Summary On: 13-Jan-2007 14:11 [facility] End: 13-Jan-2007 14:12 Historical Summary On: 16-Jun-2006 12:10 Encounter Diagnosis: Unspecified Diagnosis End: 16-Jun-2006 12:11 [facility] Erroneous Entry On: 02-Jun-2006 10:11 [facility] End: 02-Jun-2006 10:12 Nurse Visit On: 21-May-2006 11:40 Encounter Diagnosis: Need for prophylactic vaccination and inoculation against influenza (V04.81) End: 21-May-2006 11:41 [facility] Historical Summary On: 19-Apr-2006 15:21 [facility] End: 19-Apr-2006 15:24 Historical Summary On: 19-Apr-2006 14:21 [facility] End: 19-Apr-2006 14:22 Payers LISA/MAGDALENE ESCUDERO; jelena guarantor
--- OUTSIDE RECORDS SUMMARY | 2018-07-14 07:27 | XMS RPT_ITS | Continuity of Care Document ---
:1950 Author Organization [facility] Address [facility] [address] [place] [address] Phone Care Team Providers Name Role Phone [...] depression lost job was in . lost [employer] and she has to drive around. life withsomeone OCD, hoarder. on ambien for sleep per Dr. coates. Wellbutrin start but had insomni a in past. working with [employer]. doing okay on incresae welbutrin.tried Effexor, paxil [...] adipex and topamax. 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 work with [employer]. 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 got [...] 18-Apr-2015 End : 19-Apr-2015 Inactive BD Disp [place] 30G X 1/2 Miscellaneous 1 (one) Misc [...] Inactive Comments:Medication taken as needed. called to [facility] 07-30-09 erussell disp 4 ounces no refills [...] Extended Release) 1 (one) Tablet ER at [facility] for 14 days for 0 days Quantity: 14 {Tablet_ER} Refills: 0 Ordered:02-May-2010 SUZY Spencer Start : 20-Dec-2009 End : 02-May-2010 Inactive NYSTATIN, 041179VUUC/ML (Mouth/Throat Suspension) 15 Suspension qid swish and swallow for 0 days Quantity: 450 {Milliliter} Refills: 0 Ordered:20-Aug-2010 Suzette Black LPN Start : 04-Aug-2010 End : 20-Aug-2010 Inactive PANTOPRAZOLE SODIUM, 40MG (Oral Tablet Delayed Release) 1 (one) Tablet DR daily for 0 days Quantity: 30 {Tablet} Refills: 6 Ordered:06-Dec-2015 SUZY Spencer Start : 20-Apr-2015 End : 06-Dec-2015 Inactive Pen [place] 5/16 31G X 8 MM Miscellaneous 1 [...] Quantity: 14 {Capsule} Refills: 0 Ordered:26-Apr-2014 SUZY Spnecer Start : 27-Mar-2014 End : 26-Apr-2014 Inactive [...] Leanne Marie Start : 29-Jul-2009 Inactive ZOSTAVAX, 02217FLN/0.65ML (Subcutaneous Solution Reconstituted) uad For Solution one [...] in hospital and 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 ppi and carafate helping. [...] for Tdap vaccination (Renamed from Need for uojnofnlrz-vpdmrcl-cgqcpyyoz (Tdap) vaccine, adult/adolescent) (Z23, V06.1) Status: Resolved [...] Comments: not think needs atb yet. use ClearGistin DM told when need to call for atb Status: Resolved as of 22-Jul-2017 WWV V73.21 Comments: scope in last 5 years Status: Inactive as of 06-Feb-2013 Procedures Procedure Dates Details appendectomy 1999 Completed cholecystectomy 1980 Completed D and C Completed Hysterectomy; Total Completed Comments: 2013 Knee Replacement, Total Completed Comments: 2007, 2013 bilateral LEFT HEART CARDIAC CATH (40110) Completed Comments: Dr. Alexander nasal abscess I and D 04-30 Completed Date Value Details 23-May-2018 Brain W/WO Contrast Result: Comments: See Note; NOTES: [facility] Imaging Services [address] [place] [address] Brain W/WO Contrast MR#: [id number] Acct: [id number] Name: DIANA ESCUDERO OLGA Rep #: [id number] : 1950 F 68 From: Jimmy Kang MD PCP: Kelly Hannah MD Status: REG CLI Study: Brain W/WO Contrast Date of Exam: 05/23/18 Exam# [id number] Ordering Dr: Kelly Hannah MD STUDY: MRI [...] rvice support , CC: Kelly Hannah MD Go Go Dancer: Signed 19-May-2018 Brain/Head without Contrast Result: Comments: See Note; NOTES: [facility] Imaging Services [address] [place] [address] Brain/Head without Contrast MR#: [id number] Acct: [id number] Name: DIANA ESCUDERO Rep # : [id number] : 1950 F 68 From: Kalia Galan PCP: Kelly Hannah MD Status: REG ER Study: Brain/Head without Contrast Date of Exam: 05/19/18 Exam# [id number] Ordering Dr: Puneet Johnson MD STUDY: C [...] CC: Kelly Hannah MD; Puneet Johnson MD Go Go Dancer: Signed 19-May-2018 Chest 1 View Result: Comments: See Note; NOTES: [facility] Imaging Services [address] [place] [address] Chest 1 View MR#: [id number] Acct: [id number] Name: DIANA ESCUDERO Rep #: [id number] : 1950 F 68 From: Aaron Salgado MD PCP: Kelly Hannah MD Status: REG ER Study: Chest 1 View Date of Exam: 05/19/18 Exam# [id number] Ordering Dr: Puneet Johnson MD STUDY: X-RAY [...] Aaron Salgado MD at 8:13 EST Tel [phone], Service support , CC: Kelly Hannah MD; Puneet Johnson MD Go Go Dancer: Signed 03-Mar-2018 Inital Evaluation (1) - PT Result: Comments: See Note; NOTES: [facility] [place] [address] Fax REHABILITATION SERVICES INITIAL EVALUATION MR#: [id number] Acct: [id number] Name: DIANA ESCUDERO Rep #: [id number] : 1950 68 From: Lazaro Jackson DPT [...] stabing pain (8/10) at rest. 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 Please let me know if there are questions or concerns regarding this plan of care. Physician Signature: Date: <Electronically signed by Lazrao Jackson DPT&amp ;#62; 03/03/18 1340 CC: GENOVEVA Myers; Kelly Hannah MD CLS Signed For Medicare only, by signing this I certify the plan of care. Physicians Signature Date 16-Feb-2018 12 Lead Electrocardiogram Result: Comments: See Note; NOTES: [facility] Cardiovascular Services [address] [place] [address] 12 Lead EKG 02/14/18 1459 MR#: [id number] Acct: [id number] Name: DIANA ESCUDERO OLGA Rep #: [id number] : 1950 68 From: Harris Brandt MD [...] Int : 401 ms Sinus bradycardia Inferior [place], age undeterm ined, cannot be excluded Confirmed by KEVIN FLYNN, HARRIS ([id number]), sound editor SHIELA DOWELL (56) on 02/16/2018 1:34:57 PM Referred By: BRIEN Confirmed By:HARRIS BRANDT MD 02/16/18 1335 Date __ Harris Brandt MD CC: Kelly Hannah MD; Kasi Worley MD Signed 15-Feb-2018 Emergency Department Summary Result: Comments: See Note; NOTES: [facility] Medical Records Department [address] [place] [address] Emergency Department Summary 02/14/18 1636 MR#: [id number] Acct: [id number] Name: DIANA ESCUDERO Rep #: [id number] : 1950 68 From: Kasi Worley MD [...] score 1. This note was generated with mascotsecret dictation software. It may contain incorrect words, [...] your Primary Care Provider. Call [facility] ([phone]) or report to the closest Emergency Room. Call 911 if necessary. 02/15/18 0046 <Electronically signed by Jose Daniel Worley MD> Date Kasi Worley MD Cosigner Signature (If Indicated): Date CC: Kelly Hannah MD 14-Feb-2018 Venous Duplex Lower Extremity Result: Comments: See Note; NOTES: [facility] Cardiovascular Services [address] [place] [address] Venous Duplex US, Unilateral 02/14/18 1549 MR#: [id number] Acct: [id number] Name: DIANA HICKMAN Rep #: [id number] : 1950 68 From: Abdoulaye Landa MD [...] 0 02/14/18 1549 Date Transcribed: 02/14/18 174 Go Go Dancer: Signed 14-Feb-2018 Chest 1 View (Portable) Result: Comments: See Note; NOTES: [facility] Imaging Services [address] [place] [address] Chest 1 View (Portable) MR#: [id number] Acct: [id number] Name: DIANA ESCUDERO Rep #: [id number] : 1950 F 68 From: Aaron Salgado MD PCP: Kelly Hannah MD Status: REG ER Study: Chest 1 View (Portable) Date of Exam: 02/14/18 Exam# [id number] Ordering Dr: Kasi Worley MD STUD Y: [...] Aaron Salgado MD at 15:52 EDT Tel [phone], Service support , CC: Kelly Salgado; Kasi Worley MD Go Go Dancer: Signed 24-Jan-2018 Cardiology Visit Report Result: Comments: See Note; NOTES: [facility] [address] [place] [address] OFFICE VISIT Date of Service: 01/24/18 MR#: [id number] Acct: [id number] Name: DIANA ESCUDERO Rep #: [id number] : 1950 Provider: Puneet Alexander MD Age/Sex: 67/F Location: [facility] [place] [place] Status: Signed HPI HPI Chief Complaint: [...] Intake Visit Reasons: 6 M FU In [facility] Required: No Allergies simvastatin [From Zocor] Adverse [...] mg PO QDAY 01/24/18 [History Confirmed 01/24/18] [facility] Medical History Obstructive sleep apnea (Chronic) History of pulmonary embolism (Chr onic) Atherosclerosis of coronary artery of torres martinez heart without angina pectoris (Chronic) Hypertension (Chronic) [...] Plan 1. Atherosclerosis of coronary artery of torres martinez heart without angina pectoris I25.10 Non Obs [...] 3 Diagnoses Atherosclerosis of coronary artery of torres martinez heart without angina pect ranulfo I25.10 Hyperlipidemia E78.5 Coding Level of Care Code Off vis,est,level 3 Diagnoses Atherosclerosis of coronary artery of torres martinez heart without angina pectoris I25.10 Hyperlipidemia E78.5 12/06 1536 <Electronically signed by Puneet Alexander MD> Date Puneet Alexander MD Cosigner Signature: Date (if applicable) CC: Kelly Hannah MD 12-Aug-2017 Foot min 3 Views Result: Comments: See Note; NOTES: [facility] Imaging Services [address] [place] [address] Foot min 3 Views MR#: [id number] Acct: [id number] Name: DIANA ESCUDERO OLGA Rep #: [id number] : 1950 F 67 From: Aaron Salgado MD PCP: Kelly Hannah MD Status: REG CLI Study: Foot min 3 Views Date of Exam: 08/12/17 Exam# [id number] Ordering Dr: Kelly Hannah MD STUDY: X-RAY [...] Salgado MD 08/08/21 at 14:14 EST Tel [phone], Service support , CC: Kelly Hannah MD Go Go Dancer: Signed 05-Aug-2017 TXT - Blood Flow Screening Result: Comments: See Note; NOTES: [facility] Cardiovascular Services [address] [place] [address] 08/05/17 0756 MR#: [id number] Acct: [id number] Name: DIANA ESCUDERO Rep #: [id number] : 1950 67 From: Marcus Garza MD Attending Dr: Kelly Hannah MD Status: REG REF Ordering Dr: Date: 08/05/17 Location: [facility] Sex: F C Admitted: Carotid Duplex Ultrasound [...] Garza MD on 08/05/2017 09:30 PM 08/05/17 9340 Date Marcus Garza MD CC: Kelly Hannah MD Date Dictated: 08/05/17 075 T ranscribed: 08/05/172129 Go Go Dancer: Signed 15-Jul-2017 Cardiology Visit Report Result: Comments: See Note; NOTES: [facility] [address] [place] [address] OFFICE VISIT Date of Service: 07/15/17 MR#: [id number] Acct: [id number] Name: DIANA ESCUDERO Rep #: [id number] : 1950 Provider: Puneet Alexander MD Age/Sex: 67/F Location: [facility] [place] [place] Status: Signed [facility] 6 M FU: Chief Complaint: routin F/u [...] Hyperlipidemia (Chronic) Atherosclerosis of coronary artery of torres martinez heart without angina pectoris (Chronic) Blood glucose [...] (CAD), BILAT Result: Comments: See Note; NOTES: [facility] Imaging Services [address] [place] [address] SCREENING MAMM (CAD), BILAT MR#: [id number] Acct: [id number] Name: DIANA ESCUDERO Rep # : [id number] : 1950 F 67 From: Aaron Salgado MD PCP: Kelly Hannah MD Status: REG CLI Study: SCREENING MAMM (CAD), BILAT Date of Exam: 04/19/17 Exam# [id number] Ordering Dr: Kelly Hannah MD MAMMOGRAPHY - [...] delay biopsy of a clinically suspicious abnormality. [id number] Electronically Signed: Aaron Salgado MD at 8:33 EDT Tel [phone], Service support , CC: Kelly Hannah MD Go Go Dancer: Signed 16-Sep-2016 Echocardiogram Complete Result: Comments: See Note; NOTES: [facility] Cardiovascular Services [address] [place] [address] Echo Complete 09/16/16 0956 MR#: [id number] Acct: [id number] Name: DIANA ESCUDERO Rep #: [id number] : 1950 66 From: Emil Craven MD Attending Dr: Kelly Hannah MD Status: REG CLI Ordering Dr: Kelly Hannah MD Date: 09/16/16 Location: [facility] Sex: F C Admitted: Reason For Bartolo [...] Dictated: 09/16/16 0956 Date Transcribed: 09/16/16 1145 Go Go Dancer: Signed 04-Sep-2016 CTA Chest W/WO Contrast Result: Comments: See Note; NOTES: [facility] Imaging Services [address] [place] [address] Verdana 4d CTA Chest W/WO Contrast MR#: [id number] Acct: [id number] Name: DIANA ESCUDERO Alejandra Rep #: [id number] : 1950 F 66 From: Aaron Salgado MD PCP: Kelly Hannah MD Status: REG ER Study: CTA Chest W/WO Contrast Date of Exam: 09/04/16 Exam# [id number] Ordering Dr: Leanne Finn STUDY: CTA CHEST [...] Burak Salgado MD at 11:40 EDT Tel [phone], Service support [phone], CC: Leanne Finn MD; Kelly Hannah MD Go Go Dancer: Signed 23-Jun-2016 Dexa Bone Density Study (HP) Result: Comments: See Note; NOTES: [facility] Imaging Services [address] [place] [address] Verdana 4d Dexa Bone Density Study () MR#: [id number] Acct: [id number] Name: EDUARDO ESCUDERO OLGA Rep #: [id number] : 1950 F 66 From: Aaron Salgado MD PCP: Kelly Hannah MD Status: REG CLI Study: Dexa Bone Density Study () Date of Exam: 06/23/16 Exam# [id number] Ordering Dr: Kelly Posey MD STUDY: DUAL [...] Aaron Salgado MD at 16:05 EST Tel [phone], Service support [phone], CC: Kelly Hannah MD Go Go Dancer: Signed 20-Apr-2016 Venous Duplex Lower Extremity Result: Comments: See Note; NOTES: [facility] Cardiovascular Services [address] [place] [address] Venous Duplex US, Unilateral 04/20/16 1428 MR#: [id number] Acct: [id number] Name: DIANA ESCUDERO Rep #: [id number] : 1950 66 From: Marcus Garza MD [...] Date Dictated: 04/20/16 1428 Date Transcribed: 04/20/162149 Go Go Dancer: Signed 23-Mar-2016 Bilat Scrn Digital AND CAD Result: Comments: See Note; NOTES: [facility] Imaging Services [address] [place] [address] Verdana 4d Bilat Scrn Digital AND CAD MR#: [id number] Acct: [id number] Name: ANGELA ESCUDERO Rep #: [id number] : 1950 F 66 From: Aaron Salgado MD PCP: Kelly Hannah MD Status: REG CLI Study: Bilat Scrn Digital AND CAD Date of Exam: 03/23/16 Exam# [id number] Ordering Dr: Kelly Resendiz i, MD MAMMOGRAPHY [...] delay biopsy of a clinically suspicious abnormality. [id number] Electronically Signed: Aaron Salgado MD at 7:51 EDT Tel [phone], Service support [phone], CC: Kelly Hannah MD Go Go Dancer: Signed 02-Jan-2016 Venous Duplex Lower Extremity Result: Comments: See Note; NOTES: [facility] Cardiovascular Services [address] [place] [address] Venous Duplex US - Johnny Extrem 01/02/16 1454 MR#: [id number] Acct: [id number] Name: DIANA ESCUDERO Rep #: [id number] : 1950 65 From: Marcus Garza MD [...] Date Dictated: 01/02/16 1454 Date Transcribed: 01/02/161653 Go Go Dancer: Signed 12-Dec-2015 12 Lead Electrocardiogram Result: Comments: See Note; NOTES: [facility] Cardiovascular Services [address] [place] [address] 12 Lead EKG 12/03/15 1125 MR#: [id number] Acct: [id number] Name: DIANA DOWLING OLGA Rep #: [id number] : 1950 65 From: Puneet Alexander MD [...] normal ECG Confirmed by PUNEET ALEXANDER ([id number]), sound editor SHIELA DOWELL (56) on 12/09/2015 10:54:37 AM Referred By: KIRT Confirmed By:PUNEET ALEXANDER 12/09/15 1054 Date ___ Puneet Alexander MD CC: Kelly Hannah MD Date Dictated: 12/03/151124 Date Transcribed: 12/03/151124 Go Go Dancer: Signed 03-Dec-2015 Emergency Department Summary Result: Comments: See Note; NOTES: [facility] Medical Records Department [address] [place] [address] Emergency Department Summary MR#: [id number] Acct: [id number] Name: DIANA ESCUDERO OLGA Rep #: [id number] : 1950 65 From: Leanne Finn MD [...] PCP. DIAGNOSIS: Pleurisy. Leanne Finn MD T: [facility] JOB: [id number] 12/03/15 1536 <Electronically signed by Leanne Finn MD& #62; Date Leanne Finn MD Cosigner Signature (If Indicated): Date CC: Kelly Hannah MD Da te Dictated: 12/03/15 1357 Date Transcribed: 12/03/151356 Go Go Dancer: Signed 03-Dec-2015 Discharge Instruction Result: Comments: See Note; NOTES: [facility] Medical Records Department [address] [place] [address] Discharge Instruction 12/03/15 1354 MR#: [id number] Acct: [id number] Name: DIANA ESCUDERO OLGA Rep #: [id number] : 1950 65 From: Leanne Finn MD [...] problems, contact your doctor. Call [facility] ([phone]) or report to the closest Emergency Room. Call 911 if necessary. 12/03/15 1357 &# 60;Electronically signed by Leanne Finn MD> Date Leanne Finn MD Cosigner Signature (If Indicated): Date CC: Kelly Hannah MD 03-Dec-2015 CTA Chest W/WO Contrast Result: Comments: See Note; NOTES: [facility] Imaging Services [address] [place] [address] Verdana 4d CTA Chest W/WO Contrast MR#: [id number] Acct: [id number] Name: DIANA MENESES Rep #: [id number] : 1950 F 65 From: Aaron Salgado MD PCP: Kelly Hannah MD Status: REG ER Study: CTA Chest W/WO Contrast Date of Exam: 12/03/15 Exam# [id number] Ordering D r: Leanne Finn MD STUDY: [...] Aaron Salgado MD at 13:37 EDT Tel [phone], Service support [phone], CC: Leanne Finn MD; Kelly Hannah MD Go Go Dancer: Signed 24-Jul-2015 Sleep Study Report Result: Comments: See Note; NOTES: [facility] [address] [place] [address] Split Night Sleep Study MR#: [id number] Acct: [id number] Name: Miguel Angel ESCUDERO Rep #: [id number] : 1950 65 From: Jimmy Coates MD [...] version). Please note that a reference to [facility] AHI in this report is consistent with the current Hypopnea definition according to Medicare Criteria and an AAS AHI reference is consistent wit h the current Hypopnea definition according to the AASM criteria and is recognized by [facility] as the RDI. PROCEDURE: The study was attended continuously by a certified ophthalmic technician. Monitored parameters inclu ded left and [...] calculated body mass index of 35 and Clinton Sleepiness Scale score of 6/20. The patient [...] and heated humidity. SLEEP STUDY DATA: The [facility] split night study began at 1114:07 [...] patient is to have a download of eGymd. If the AHI remained elevated, can empirically [...] M.D. William Novak, MD T: [facility] JOB: [id number] CC: Jimmy Coates MD DD: 08/06 4207/24/152204 <Electronically signed by Jimmy Coates MD> Date Jimmy Coates MD Co-signature (if appli cable) Date Signed 12-Feb-2015 Chest 1 View (Portable) Result: Comments: See Note; NOTES: [facility] Imaging Services [address] [place] [address] Radiology Report MR#: [id number] Acct: [id number] Name: DIANA ESCUDERO OLGA Rep #: [id number] : 1950 F 65 From: Aaron Salgado MD PCP: Kelly Hannah MD Status: PRE ER Study: Chest 1 View (Portable) Date of Exam: 02/12/15 Exam# [id number] Ordering Dr: Kenroy Arciniega MD DY: X-RAY [...] Aaron Salgado MD at 11:08 EDT Tel [phone], Service support [phone], RAD/Chest 1 View (Portable) IMPRESSION: No acut e abnormality is seen. Electronically Signed: Aaron Salgado MD at 11:08 EDT Tel [phone], Service support [phone], CC: Kelly Hannah MD; Kenroy Arciniega MD Go Go Dancer: Signed 12-Feb-2015 CTA Chest W/WO Contrast Result: Comments: See Note; NOTES: [facility] Imaging Services [address] [place] [address] CAT Scan Report MR#: [id number] Acct: [id number] Name: DIANA ESCUDERO Rep #: [id number] : 1950 F 65 From: Aaron Salgado MD PCP: Kelly Hannah MD Status: REG ER Study: CTA Chest W/WO Contrast Date of Exam: 02/12/15 Exam# [id number] Ordering Dr: Kenroy Arciniega MD UDY: CTA [...] Aaron Salgado MD at 12:08 EDT Tel [phone], Service support [phone], CC: Kelly Hannah MD; Kenroy Arciniega MD Go Go Dancer: Signed 11-Jan-2015 Bilat Scrn Digital AND CAD Result: Comments: See Note; NOTES: [facility] Imaging Services [address] [place] [address] Breast Imaging Report MR#: [id number] Acct: [id number] Name: DIANA ESCUDERO Rep #: [id number] : 1950 F 64 From: Shaan Nunez DO PCP: Kelly Hannah MD Status: REG CLI Study: Bilat Scrn Digital AND CAD Date of Exam: 01/11/15 Exam# [id number] Ordering Dr: Kelly Hannah MD MAMMOGRAPHY - [...] facility within 30 days. According to [employer], yearly mammograms are recommended starting [...] Shaan Nunez DO at 10:22 EDT Tel [phone], Service support [phone], CC: Kelly Hannah MD Go Go Dancer: Signed 23-Jul-2014 CTA Chest W/WO Contrast Result: Comments: See Note; NOTES: [facility] Imaging Services [address] [place] [address] CAT Scan Report MR#: [id number] Acct: [id number] Name: DIANA ESCUDERO Rep #: [id number] : 1950 F 64 From: Aaron Salgado MD PCP: Kelly Hannah MD Status: REG CLI Study: CTA Chest W/WO Contrast Date of Exam: 07/23/14 Exam# [id number] Ordering Dr: Kelly Hannah MD S TUDY: [...] Aaron Salgado MD at 12:47 EST Tel [phone], Service support [phone], CC: Kelly Hannah MD Go Go Dancer: Signed 04-Jan-2014 Consultation Result: Comments: See Note; NOTES: [facility] Medical Records Department [address] [place] [address] Consultation 01/04/14 1218 MR#: [id number] Acct: [id number] Name: DIANA ESCUDERO Rep #: [id number] : 1950 63 From: Juancho Foy MD PCP: Kelly Hannah MD Status: REG [facility] Y Location: [place] [address] Problem List (1) Bradycardia Status: Acute (2) [...] showed sinus bradycardia, normal QRS duration, normal OH interval, normal QT interval, no ischemic hardy [...] PO Q4H PRN PRN #30 tablet 01/04/14 [[place] 5/325] Surgical History: appendectomy, cholecystectomy, - - Hysterectomy Psychiatric History: No pertinent psych hx HOSPICE SPIRITUAL CARE COORDINATOR History: No pertinent HOSPICE SPIRITUAL CARE COORDINATOR his tory Lives: Spouse/ Significant Other Smoking [...] Discharge Instruction Result: Comments: See Note; NOTES: [facility] Medical Records Department [address] [place] [address] Instructions for Home/Discharge Instructions 01/04/14 0731 MR#: [id number] Acc t: [id number] Name: DIANA ESCUDERO OLGA Rep #: [id number] : 1950 63 From: Anatoly Diego MD PCP: Kelly Hannah MD Status: REG [facility] Discharge Diet: No Restrictions Discharge Activity: Return [...] PRN PRN #60 capsule Hydrocodone Bitart/Apap 5-325 [[place] 5/325] 1 tablet PO Q4H PRN PRN #30 tablet Please Follow Up With: Anatoly Diego When: 2-3 weeks Proposed Discharge Date: 01/05/14 01/04/14 0735 <Electronically signed by Anatoly Diego MD> Date Anatoly Diego MD CC: Kelly Hannah MD 10-Oct-2013 EKG (76757) Comments: see scanned document of test done to see results reviewed today with patient Result: [MEASUREMENTS ANALYSIS] Date of Test: 10/10/2013 08:20:27; Heart Rate: 64; OH Interval: 160; QRS: 90; QT Interval: 394; Corrected QT Interval (QTc): 401; P Wave Ault: 50; QRS Wave Ault: 5; T Wave Ault: 14; Blood Pressure: 122/78 [ECG DIAGNOSTIC STATEMENTS] [...] Status: Active Current Work/Study Status Comments: 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 Status: Active Living Situation: Lives with domestic partner. Comments: , Bahai Status: Active No Caffeine Use Status: Active [...] Height 0 in Head Circumference 0.00 cm 2-Bbe-180573:12 Temperature 97.9 f Comments: Method: Oral Pulse [...] 0.00 cm Results Date Description Value Details 7-Aiw-486524:24 Urinalysis, Office (30487) UA - LEUKOCYTE ESTERASE Negative (Normal) UA - NITRITE Negative (Normal) URINE UROBILINGN FRANKO TIMED Normal mg/dL (Normal) UA - PROTEIN Negative mg/dL (Normal) UA - PH 6 (Abnormal) UA - BLOOD Negative (Normal) UA - SPECIFIC GRAVITY 1.020 (Normal) UA - KETONES Negative mg/dL (Normal) UA - BILIRUBIN Negative (Normal) UA - GLUCOSE Negative (Normal) 83-Gus-64982:40 Urinalysis, Complete Comments: Order Date: 05/19/18Has pt arrived? YHow was Urine Obtained? [employer] FO[employer]ALL [employer]ACH TO [facility] [id number] [place], [place], [id number] MUCUS, URINE 0 SEEN {/hpf} (Normal) BACTERIA [...] CLARITY Sl. Cloudy (Normal) COLOR Yellow (Normal) 92-Qgi-32899:26 Basic Metabolic Profile (BMP) Comments: [facility] [id number] [place], [place], [id number] GAP 5 (Normal) Range: 5-15 CO2 29.0 [...] A.D.A. criteria.Please note revised GLUCOSE reference range pcomnqvrc14/02/2018. 48-Emc-04910:26 CBC W/Diff, Automated Comments: [facility] [id number] [place], [place], [phone] Absolute Lymph 2.03 {X10_3/ul} (Normal) Range: 0.83-4.51 [...] Range: 4.4-11.0 :26 Partial Thromboplast Time Comments: [facility] [id number] [facility] [place], [place], [id number] PTT 28.1 s (Normal) Range: 24.1-36.2 :26 Prothrombin Time w/INR Comments: [facility] Ynejzfrmqs[address] [facility] [place], [place], [id number] INR 1.0 (Normal) PROTIME 12.7 s (Normal) Range: 11.7-14.9 :26 Troponin-I Comments: [facility] Xxiayjnwbf6384 [facility] [place], [place], [address] TROPONIN-I < 0.015 ng/mL (Normal) Comments: TROPONIN-I EXPECTED VALUES <0.045 Negative 0.045 - 0.590 Consistent with Cardiac Damage > OR = 0.600 Critical Value Not every elevated troponin is indicative of W[place]. T hesevalues should be used with clinical judgement in examiningthe patient's clinical picture for diagnosis. To establisha diagnosis of WV versus myocardial injury, there must be ademonstrated rise and/ or fall in the troponin values, inaddition to ischemic symptoms, EKG changes, new regionalwall motion abnormality, and/or angiographical evidence. PLEASE NOTE: REFERENCE RANGES EDITED 11/01/1719-May-20187:13 Bedside Glucose Comments: [facility] LaboratoryPoint of Nsrp[address] [place] [address] BEDSIDE GLU 101 mg/dL (Normal) Range: 70-110 Comments: MANAGEMENT OF PATIENT CARE PER NURSING PROTOCOL :16 LIPOPROTEIN, BLD, BY NMR Comments: PATIENT WAS FASTINGPERFORMED BY: LabCo[address] [id number] (18947) LP-IR Score 81 (Abnormal) Comments: INSULIN RESISTANCE MARKER <--Insulin Sensitive Insulin Resistant--> Percentile in Reference PopulationInsulin Resistance ScoreLP-IR Score Low 25th 50th 75th High <27 27 45 63 >63LP-IR Score is inaccurate if patient is non-fasting. .The LP-IR score is a laboratory developed i [facility] that has beenassociated with insulin resistance [...] 1600 - 2000 Very High > 2000 28-Rwu-882367:35 Basic Metabolic Profile (BMP) Comments: [facility] Xjgchtjxvm8[address] [place], [address] GAP 10 (Normal) Range: 5-15 CO2 30.0 [...] A.D.A. criteria.Please note revised GLUCOSE reference range kayinvaao47/02/2018. 01-Qya-771196:35 CBC W/Diff, Automated Comments: [facility] [address] [place], [place], [address] Absolute Lymph 2.44 {X10_3/ul} (Normal) Range: 0.83-4.51 [...] K/mm3 (Normal) Range: 4.4-11.0 :35 Troponin-I Comments: [facility] [address] [place], [place], [address] TROPONIN-I < 0.015 ng/mL (Normal) Comments: TROPONIN-I EXPECTED VALUES <0.045 Negative 0.045 - 0.590 Consistent with Cardiac Damage > OR = 0.600 Critical Value Not every elevated troponin is indicative of [place]. T hesevalues should be used with clinical judgement in examiningthe patient's clinical picture for diagnosis. To establisha diagnosis of [place] versus myocardial injury, there must be ademonstrated rise and/ or fall in the troponin values, inaddition to ischemic symptoms, EKG changes, new regionalwall motion abnormality, and/or angiographical evidence. PLEASE NOTE: REFERENCE RANGES EDITED 11/01/1723-Sep-20178:28 Pathology Report Comments: PERFORMED BY: LUIS Momin Egeland Loju2306 [facility] [id number] BY: [facility] Dermatopathology Dpqnfns[address] [place] [address] [id number] Information: [id number] See MATER Comments: Material submitted: .RIGHT HAND BIOPSYClinical history: .BLACK SPOT ON HAND Note (Normal) Diagnosis:BLUE NEVUS.TMZ/09/28/2017Electronically signed: .Mya Fay MD, DermatopathologistGross description: .RECEIVED IN FORMALIN LABELED DIANA ESCUDERO AND DESIGNATEDRIGHT HAND IS A PUGH SKIN PUNCH BIOPSY MEASURING 3.0 MM IN ANDREW METERAND 2.0 MM THICK WITH A OLIVAS, RAISED AREA 2.5 X 1.5 MM. SUBMITTEDIN TOTO.FUN/TMZPathologist provided ICD-10:D22.61CPT .488601 84-Nib-17161:47 Platelet Count on Comments: PATIENT WAS FASTINGPERFORMED BY: WeedWall LabCoWell DoneOqmfkdqdeo3003 [facility] [id number] BY: LabCoKindred Hospital at RahwayMbsjpg4356 [facility] [id number] Citrated Bld Plt Count, Citrated Bld 160 {X10E3/uL} (Normal) Range: 150-379 87-Qql-92928:47 LIPOPROTEIN, BLD, BY NMR Comments: PATIENT WAS FASTINGPERFORMED BY: WeedWall [facility] Uhhrdhsndi3175 [facility] [id number] BY: LabNullPointer Elsbny9047 [facility] [id number] Information: PLATELET ON CITRATE BLD 910304 (33048) LP-IR Score 85 (Abnormal) Comments: INSULIN RESISTANCE MARKER <--Insulin Sensitive Insulin Resistant--> Percentile in Reference PopulationInsulin Resistance ScoreLP-IR Score Low 25th 50th 75th High <27 27 45 63 >63LP-IR Score is inaccurate if patient is non-fasting. .The LP-IR score is a laboratory developed i [facility] that has beenassociated with insulin resistance [...] 1600 - 2000 Very High > 2000 37-Shc-08444:43 Albumin/Creatinine Ratio,Urine Comments: PATIENT NOT FASTINGPERFORMED BY: Firmafon6370 In[facility] TechnologiesNov[facility] [id number] Alb/Creat Ratio <1.4 {mg/g_creat} (Normal) Range: 0.0-30.0 Albumin, Urine <3.0 ug/mL (Normal) Creatinine, Urine 212.4 mg/dL (Normal) 16-Fjn-45358:43 CBC With Differential/Platelet Comments: PATIENT NOT FASTINGPERFORMED BY: Firmafon6370 In[facility] TechnologiesNov[facility] [id number] Immature Grans (Abs) 0.0 {x10E3/uL} (Normal) Range: [...] 3.77-5.28 WBC 6.3 {x10E3/uL} (Normal) Range: 3.4-10.8 08-Eoq-82782:43 Comp. Metabolic Panel (14) Comments: PATIENT NOT FASTINGPERFORMED BY: [facility] Aaovdu6055 [facility] [id number] ALT (SGPT) 18 [iU]/L (Normal) Range: 0-32 [...] Glucose, Serum 100 mg/dL (Abnormal) Range: 65-99 27-Hpe-98540:43 Urinalysis, Routine Comments: PATIENT NOT FASTINGPERFORMED BY: MoonbasaKindred Hospital at RahwayRqtbfz6348 [facility] [id number] Microscopic Examination MICNIP (Normal) Comments: Microscopic not indicated and not performed. Nitrite, Urine Negative (Normal) Urobilinogen,Semi-Qn 0.2 mg/dL (Normal) Range: 0.2-1.0 Bilirubin Negative (Normal) Occult Blood Negative (Normal) Ketones Negative (Normal) Glucose Negative (Normal) Protein Negative (Normal) WBC Esterase Negative (Normal) Appearance Clear (Normal) Urine-Color Yellow (Normal) pH 6.0 (Normal) Range: 5.0-7.5 Specific [place] 1.025 (Normal) Range: 1.005-1.030 06-Jrm-776496:21 FLU A+B DIRECT AG, (RAPID) (75333) FLU A+B DIRECT AG, (RAPID) negative (Normal) :32 Potassium Serum (89915) Comments: PATIENT NOT FASTINGPERFORMED BY: Moonbasa[address] [id number] BY: [address] [id number] Potassium, Serum 3.9 mmol/L (Normal) Range: 3.5-5.2 :32 Magnesium (25103) Comments: PATIENT NOT FASTINGPERFORMED BY: [place] [address] [facility] [id number] BY: [address] [id number] Magnesium, Serum 2.0 mg/dL (Normal) Range: 1.6-2.3 :32 CCP ANTIBODY (02251) Comments: PATIENT NOT FASTINGPERFORMED BY: [place] [address] [facility] [id number] BY: [address] [id number] CCP Antibodies IgG/IgA 10 {units} (Normal) Range: 0-19 Comments: Negative <20 Weak positive 20 - 39 Moderate positive 40 - 59 Strong positive >59 :32 TSH (82797) Comments: PATIENT NOT FASTINGPERFORMED BY: [place] [address] [facility] [id number] BY: [address] [id number] TSH 3.380 {uIU/mL} (Normal) Range: 0.450-4.500 :32 SED RATE ERYTHROCYTE Comments: PATIENT NOT FASTINGPERFORMED BY: [place] [address] [facility] [id number] BY: [address] [id number] (39648) Sedimentation Rate-Westergren 14 mm/h (Normal) Range: 0-40 54-Ayu-56986:32 C-REACTIVE PROTEIN (94373) Comments: PATIENT NOT FASTINGPERFORMED BY: [place] [address] [facility] [id number] BY: [address] [id number] C-Reactive Protein, Quant 3.5 mg/L (Normal) Range: 0.0-4.9 :32 JESUS ALBERTO (ANTINUCLEAR ANTIBODY) Comments: PATIENT NOT FASTINGPERFORMED BY: [place] [address] [facility] [id number] BY: [facility] [address] [id number]; fu 3-30 (19779) JESUS ALBERTO Direct Negative (Normal) 66-Nic-346851:37 Basic Metabolic Profile (BMP) Comments: 'TROP' Serial specimen #1, #2, #3, or #4: [facility] Syxwzavhsp1172 [place], [address] GAP 8 (Normal) Range: 5-15 [...] <126 mg/dLsuggests IMPAIRED HOMEOSTASIS per A.D.A. criteria. 61-Ppz-819808:37 CBC W/Diff, Automated Comments: [facility] Ixbcapztuj86[address] [place], [address] Absolute Lymph 1.93 {X10_3/ul} (Normal) [...] 4.2-5.4 WBC 5.9 K/mm3 (Normal) Range: 4.4-11.0 65-Qdy-787689:37 Troponin-I Comments: 'TROP' Serial specimen #1, #2, #3, or #4: [address] [place] [address] Odmneathle[address] [place], [place], [address] TROPONIN-I < 0.02 ng/mL (Normal) Comments: TROPONIN-I EXPECTED VALUES <0.05 NEGATIVE 0.06 - 0.59 AT RISK OF WV > OR = 0.60 SUGGEST WV 99-Rnv-365405:16 HEPATITIS C ANTIBODY (80237) Comments: CLient bill for this; PATIENT NOT FASTINGPERFORMED BY: [facility] Jtxfsx5106 [facility] [id number] Hep C Virus Ab <0.1 {s/co_ratio} (Normal) Range: 0.0-0.9 Comments: Negative: < 0.8 Indeterminate: 0.8 - 0.9 Positive: > 0.9 . The CDC recommends that a positive HCV antibody result be followed up with a HCV Nucleic Acid Amplification test (943558). :32 CBC W/Diff, Automated Comments: [facility] Jwk[address]rcmei[address] [place], [place], [address] Absolute Lymph 2.31 {X10_3/ul} (Normal) Range: 0.83-4.51 [...] 1'CKMB' Serial Specimen #1, #2 or #3? 1WPro[facility] Xpgmkufkru3155 [place], [address] GAP 7 (Normal) Range: 5-15 [...] 1'CKMB' Serial Specimen #1, #2 or #3? 1WPro[facility] Bekbxqmvyv60[address] [place], [place], [address] CKRI 1.1 % (Normal) Range: 0.0-1.4 Comments: [...] 1'CKMB' Serial Specimen #1, #2 or #3? 1[facility] Puxtwamyls95[address] [place], [place], [address] TROPONIN-I < 0.02 ng/mL (Normal) Comments: TROPONIN-I EXPECTED VALUES <0.05 NEGATIVE 0.06 - 0.59 AT RISK OF WV > OR = 0.60 SUGGEST WV :30 CBC (Auto) (68294) Comments: PATIENT WAS FASTINGPERFORMED BY: LabCoModa Operandi Klikgg8111 [facility] [id number] Platelets 165 {x10E3/uL} (Normal) Range: 150-379 RDW 13.8 % (Normal) Range: 12.3-15.4 MCHC 33.1 g/dL (Normal) Range: 31.5-35.7 MCH 31.2 pg (Normal) Range: 26.6-33.0 MCV 94 fL (Normal) Range: 79-97 Hematocrit 43.2 % (Normal) Range: 34.0-46.6 Hemoglobin 14.3 g/dL (Normal) Range: 11.1-15.9 RBC 4.59 {x10E6/uL} (Normal) Range: 3.77-5.28 WBC 6.6 {x10E3/uL} (Normal) Range: 3.4-10.8 :30 Metabolic Panel, Comments: PATIENT WAS FASTINGPERFORMED BY: LabCoKindred Hospital at RahwayWtxexp5521 [facility] [id number] Information: [id number] Comprehensive (65879) ALT (SGPT) 14 [iU]/L (Normal) Range: 0-32 [...] mg/dL (Normal) Range: 65-99 :30 Lipid Panel (29093) Comments: PATIENT WAS FASTINGPERFORMED BY: [facility]omF[facility] [id number] LDL/HDL Ratio 3.6 {ratio_units} (Abnormal) Range: 0.0-3.2 [...] (HGB A1C) Comments: PATIENT WAS FASTINGPERFORMED BY: trustedsafe [facility] [id number]; apt. 4-4 (21716) Hemoglobin A1c 5.8 % (Abnormal) Range: 4.8-5.6 Comments: . Pre-diabetes: 5.7 - 6.4 Diabetes: >6.4 Glycemic control for adults with diabetes: <7.0 67-Yxm-389621:59 Urinalysis, Office (85159) UA - LEUKOCYTE ESTERASE Negative (Normal) UA - NITRITE Positive (Normal) URINE UROBILINGN FRANKO TIMED 2 mg/dL (Normal) UA - PROTEIN Negative mg/dL (Normal) UA - PH 5 (Abnormal) UA - BLOOD Negative (Normal) UA - SPECIFIC GRAVITY 1.020 (Normal) UA - KETONES Negative mg/dL (Normal) UA - BILIRUBIN Negative (Normal) UA - GLUCOSE Negative (Normal) 63-Pyo-88232:00 Anticardiolip Ab, IgA/G/M, Comments: PATIENT WAS FASTINGPERFORMED BY: CB [facility] Npfkje1512 [facility] [id number] BY: TG [facility] ORO0124 [facility] [id number] Qn Anticardiolipin Ab,IgA,Qn <9 {APL_U/mL} (Normal) Range: [...] Positive: >20 - 80 High Positive: >80 43-Oup-908175:37 Basic Metabolic Profile (BMP) Comments: Serial Specimen #1, #2 or #3? 1'TROP' Serial specimen #1, #2, #3, or #4: 1Test performed at:[facility] Mudsakyogv5820 [address] [place], [place] [address] GAP 7 (Normal) Range: 5-15 CO2 26.0 [...] Comments: Please note revised CREATININE reference range dlsuelgjz04/22/2015. BUN 16 mg/dL (Normal) Range: 7-18 GLU 134 mg/dL (Abnormal) Range: 70-110 Comments: Fasting Glucose result greater than or equal to 126 mg/dLsuggests DIABETES MELLITUS per A.D.A. criteria. 29-Ioj-310721:37 CBC W/Diff, Automated Comments: Test performed at:[facility] Lewfjcdenq[address] [place], [place] [address] Absolute Lymph 2.35 {X10_3/ul} (Normal) Range: 0.83-4.51 [...] 4.2-5.4 WBC 7.4 K/mm3 (Normal) Range: 4.4-11.0 25-Iyb-083848:37 CK-MB Quantitative and Index Comments: Serial Specimen #1, #2 or #3? 1'TROP' Serial specimen #1, #2, #3, or #4: 1Test performed at:[facility] Sntymoyyqu0317 [place] [address] CPKMB 0.8 ng/mL (Normal) Range: 0.0-5.0 Comments: CK-MB and RI Interpretation MB Relative Index Non-AMI <or= 5 NA Indeterminate > 5 <or= 4 AMI > 5 > 4 CPK TOTAL 80 U/L (Normal) Range: 26-192 68-Npu-597046:37 Troponin-I Comments: Serial Specimen #1, #2 or #3? 1'TROP' Serial specimen #1, #2, #3, or #4: 1Test performed at:[facility] Esznyojhgl4732 [place] [address] TROPONIN-I < 0.02 ng/mL (Normal) Comments: TROPONIN-I EXPECTED VALUES <0.05 NEGATIVE 0.06 - 0.59 AT RISK OF WV > OR = 0.60 SUGGEST W[place] 21-Jov-082382:59 D-Dimer (39229) Comments: PATIENT NOT FASTINGPERFORMED BY: [facility] [address] [id number] BY: [facility] [address] [id number] D-Dimer 0.59 {mg/L_FEU} (Abnormal) Range: 0.00-0.49 Comments: In conjunction with a non-high clinical probability assessment, anormal (<0.50 mg/L FEU) result excludes deep vein thrombosis (DVT)and pulmonary embolism (PE) with high sensitivity. 32-Txa-76815:00 LIPID PANEL (12522) Comments: PATIENT WAS FASTINGPERFORMED BY: MoonbasaKindred Hospital at RahwayWhllpo0936 [facility] [id number] BY: Moonbasa IRH2721 [facility] [id number] LDL/HDL Ratio 3.1 {ratio_units} (Normal) Range: 0.0-3.2 [...] Cholesterol, Total 177 mg/dL (Normal) Range: 100-199 37-Oai-391314:59 Protein S Profile Comments: PATIENT NOT FASTINGPERFORMED BY: MoonbasaNicole [place] 718967 [facility] [id number] BY: MoonbasaKindred Hospital at RahwayAtoniq4176 [facility] [id number] Inf ormation: [id number] (70945) Protein S-Functional 119 % (Normal) Range: 60-145 Protein S, Free 108 % (Normal) Range: 56-124 Protein S, Total 137 % (Normal) Range: 58-150 71-Snf-695249:59 Protein C Profile Comments: PATIENT NOT FASTINGPERFORMED BY: MoonbasaOverlook Medical CenterXqypltbrvn3793 [facility] [id number] BY: MoonbasaKindred Hospital at RahwayMbrmnw0752 [facility] [id number] (89502) Protein C-Functional 120 % (Normal) Range: 74-151 Protein C Antigen 104 % (Normal) Range: 70-140 57-Ybc-16105:00 Homocysteine, Plasma Comments: PATIENT WAS FASTINGPERFORMED BY: MoonbasaKindred Hospital at RahwayMgxizp2677 [facility] [id number] BY: Snaptalent WCS4898 [facility] [id number] (20164) Homocyst(e)ine, Plasma 11.2 umol/L (Normal) Range: 0.0-15.0 51-Rbl-277406:59 ANTITHROMBIN III ACTIVTY Comments: PATIENT NOT FASTINGPERFORMED BY: Moonbasa[address] [id number] BY: Moonbasa Qiywnn7715 [facility] [id number] (97415) Antithrombin Antigen 94 % (Normal) Range: 75-130 Antithrombin Activity 108 % (Normal) Range: 75-135 00-Ukv-294140:59 CLOTTING FACTOR II Comments: PATIENT NOT FASTINGPERFORMED BY: Moonbasa[address] [id number] BY: Moonbasa Rnhemr8984 [facility] MobilisaFrye [facility] [id number] (09487) Factor II Activity 113 % (Normal) Range: 75-130 86-Tzj-24142:00 Factor V Leiden (25773) Comments: PATIENT WAS FASTINGPERFORMED BY: NGDATA LabNullPointer Edsyzr1502 [facility]ilisaFry[facility] [id number] BY: Moonbasa EGA6916 [facility] [id number] Factor V Leiden FVNEG3 (Normal) Comments: Result: [...] in the workup for venous thrombosis include [id number] mutation in the factor II (prothrombin) gene,protein S and C deficiency, and antithromb in deficiencies.Anticardiolipin antibody and lupus anticoagulant analysismay be appropriate for certain patients, as well ashomocysteine levels. .Contact your local [facility] for information on how to orderadditional testing if desired. .Genetic counselors are available for health care* providers to discuss results at [phone] (2058). .Methodology:DNA analysis of the Factor V gene [...] Chavez, PhDTara Jhaveri, PhDNgozi Cardozo, PhD . 92-Huq-02646:00 MTHFR (95232) Comments: PATIENT WAS FASTINGPERFORMED BY: CB [facility] Xlsgyw2939 [facility] [id number] BY: TG [facility] CSP9219 [facility] [id number] MTHFR, DNA Analysis WN3823 (Normal) Comments: Result: C677T/C6154DPps mutations (C677T and F6158W) identified .Interpretation: .This individual is heterzygous for both the MTHFR C677T and F8538Wftpgabhq (one copy of each). Compound heterozygosity for the Y094Alem O2355T variants is unlikely to be of clinical [...] discuss these results with healthcare providers at [phone]. .Methylenetetrahydrofolate reductase (MTHFR) is a ke y enzyme in thefolate pathway and is responsible for the metabolism of homocysteine.There are two common variants in the MTHFR gene, c.655C>T(p.Hek475Qie), referred to as C677T, and c.1286A>C (p.G or204Syu),referred to as A1798T. Individuals homozygous for C677T (two copiesof the variant), have decreased activity of the MTHFR enzyme and apredisposition to hyperhomocysteinemia, particularly when d eficient infolate. Hyperhomocysteinemia is a risk factor for venous thrombosisand coronary artery disease and is associated with an increased riskof open neural tube defects. The C677T variant reilly s notindependently increase risk of these conditions in the absence ofhyperhomocysteinemia. The B5310V variant is not associated withelevated homocysteine levels unless a C677T variant is also present;h owever, the clinical significance of heterozygosity for both O121Rhrf M5485A is controversial. Population data suggest that these twovariants are not present on the same chromosome, but rare exceptionsh ave been reported of triple variant MTHFR genotypes (ie. homozygousfor one variant and heterozygous for the other). Homozygosity iwrX882D has an estimated frequency of 10% to [...] PhDNgozi Cardozo, PhD :52 HgA1C , Office (25135) HgA1C , Office 5.8 % (Normal) Range: 4.6 - 7.1 :31 CBC With Differential/Platelet Comments: PATIENT WAS FASTINGPERFORMED BY: LabCoKindred Hospital at RahwayZmzols7834 [facility] [id number] Information: [id number] Immature Grans (Abs) 0.0 {x10E3/uL} (Normal) Range: [...] Panel (14) Comments: PATIENT WAS FASTINGPERFORMED BY: LabCoKindred Hospital at RahwayDlegqf3442 [facility] [id number] ALT (SGPT) 18 [iU]/L (Normal) Range: 0-32 [...] Glucose, Serum 103 mg/dL (Abnormal) Range: 65-99 13-Ymf-104645:04 Urinalysis, Office (19278) UA - PH 6.0 (Normal) UA - LEUKOCYTE ESTERASE Negative (Normal) UA - NITRITE Negative (Normal) URINE UROBILINGN FRANKO TIMED 2 mg/dL (Normal) UA - PROTEIN Negative mg/dL (Normal) UA - BLOOD Negative (Normal) UA - SPECIFIC GRAVITY 1.025 (Normal) UA - KETONES Negative mg/dL (Normal) UA - BILIRUBIN Negative (Normal) UA - GLUCOSE Negative (Normal) 40-Oid-19753:51 POTASSIUM SERUM (13533) Comments: today; PATIENT NOT FASTINGPERFORMED BY: [facility] Ckjazr5267 [facility] [id number] Information: [id number] Potassium, Serum 3.8 mmol/L (Normal) Range: 3.5-5.2 6-Dak-558526:30 Basic Metabolic Profile (BMP) Comments: 'TROP' Serial specimen #1, #2, #3, or #4: 1'CKMB' Serial Specimen #1, #2 or #3? 1Test performed at:[facility] Lnuoghjjds4912 [place] [address] GAP 3 (Abnormal) Range: 5-15 [...] 7-18 GLU 89 mg/dL (Normal) Range: 70-110 5-Dut-943360:30 CBC W/Diff, Automated Comments: Test performed at:[facility] Djsylakgby8756 [place] [address] Absolute Lymph 2.01 {X10_3/ul} (Normal) [...] 4.2-5.4 WBC 6.0 K/mm3 (Normal) Range: 4.4-11.0 9-Hcy-761822:30 CK-MB Quantitative and Index Comments: 'TROP' Serial specimen #1, #2, #3, or #4: 1'CKMB' Serial Specimen #1, #2 or #3? 1Test performed at:[facility] Pebgufpgti99[address] [place] [address] CPKMB 0.8 ng/mL (Normal) Range: 0.0-5.0 Comments: CK-MB and RI Interpretation MB Relative Index Non-AMI <or= 5 NA Indeterminate > 5 <or= 4 AMI > 5 > 4 CPK TOTAL 64 U/L (Normal) Range: 26-192 5-Kgo-063074:30 D-Dimer Quantitative (DVT/PE) Comments: Test performed at:[facility] Kipbbciypr[address] [place], [place] [address] D-DIMER QUANT 1.86 {FEU/ug/m} (Abnormal) Range: 0.27-0.49 Comments: D-Dimer ELEVATED (>0.49): Additional studies and clinicalassessments are indicated to conclude diagnosis of:Deep Vein Thrombosis (DVT) or Pulmonary Embolism (PE)CRITICAL VALUE REPEATED AND VERIFIED. CALLED TO SHRAVAN.RN07/23/14 1104 Ricci Delgado.RESULTS READ BACK BY SAME. 0-Nrs-162591:30 Troponin-I Comments: 'TROP' Serial specimen #1, #2, #3, or #4: 1'CKMB' Serial Specimen #1, #2 or #3? 1Test performed at:[facility] Wxzcgxewko4198 [facility] [place], [place] [address] TROPONIN-I < 0.02 ng/mL (Normal) Comments: TROPONIN-I EXPECTED VALUES <0.05 NEGATIVE 0.06 - 0.59 AT RISK OF WV > OR = 0.60 SUGGEST WV :18 HgA1C , Office (62444) HgA1C , Office 5.7 % (Normal) Range: 4.6 - 7.1 :18 Blood Glucose , Office (99635) Blood Glucose , Office 106 (Normal) 98-Xhg-564014:20 CBCD ALC 2.30 {X10_3/ul} (Normal) Range: 0.83-4.51 [...] S. AUREUS S. aureus NegativeMRSA MRSA Negative 42-Tlh-117894:20 UAC Comments: ORDER URINE CULTUREIF POSITIVE NITRITE [...] Yellow (Normal) :54 Blood Glucose , Office (90005) Blood Glucose , Office 123 (Normal) Comments: Not Fasting :54 HgA1C , Office (28958) HgA1C , Office 6.0 % (Normal) Range: 4.6 - 7.1 :31 POTASSIUM SERUM (67995) Comments: patient having drawn in 2 wks; PATIENT NOT FASTINGPERFORMED BY: LabCoKindred Hospital at RahwayEjbpvm1372 [facility] [id number] Information: [id number] Potassium, Serum 4.0 mmol/L (Normal) Range: 3.5-5.2 :20 Microscopic Examination Comments: PATIENT WAS FASTINGPERFORMED BY: LabCoKindred Hospital at RahwayLtfafe6587 [facility] [id number] Bacteria Few (Normal) Mucus Threads Present (Normal) [...] A POSITIVE (Normal) :20 URINALYSIS, W/ MICRO (86751) Comments: PATIENT WAS FASTINGPERFORMED BY: [facility]6370 [facility] [id number] Microscopic Examination See below: (Normal) Comments: Microscopic was indicated and was performed. Nitrite, Urine Negative (Normal) Urobilinogen,Semi-Qn 1.0 mg/dL (Normal) Range: 0.0-1.9 Bilirubin Negative (Normal) Occult Blood Negative (Normal) Ketones Negative (Normal) Glucose Negative (Normal) Protein Trace (Normal) WBC Esterase 2+ (Abnormal) Appearance Clear (Normal) Urine-Color Yellow (Normal) pH 6.5 (Normal) Range: 5.0-7.5 Specific [place] 1.023 (Normal) Range: 1.005-1.030 :20 METABOLIC PANEL, COMPREHENSIVE Comments: PATIENT WAS FASTINGPERFORMED BY: Moonbasa Eqvfin6369 [facility] [id number] ([id number]) ALT (SGPT) 20 [iU]/L (Normal) Range: 0-32 [...] Glucose, Serum 106 mg/dL (Abnormal) Range: 65-99 73-Ddp-80584:20 LIPID PANEL (36545) Comments: PATIENT WAS FASTINGPERFORMED BY: [employer] [facility] [employer] ClubCorewell [facility]6370 [facility] [id number] LDL/HDL Ratio 3.8 {ratio_units} (Abnormal) Range: 0.0-3.2 [...] MANUAL DIFF Comments: PATIENT WAS FASTINGPERFORMED BY: LabCoKindred Hospital at RahwayYoffco6145 [facility] [id number] Information: [id number] (81154) Immature Grans (Abs) 0.0 {x10E3/uL} (Normal) Range: [...] (Normal) Range: 3.4-10.8 :09 HgA1C , Office (02177) HgA1C , Office 5.8 % (Normal) Range: 4.6 - 7.1 :09 Blood Glucose , Office (26917) Blood Glucose , Office 129 (Normal) Comments: [...] (Normal) Range: 70-110 :17 HgA1C , Office (15787) HgA1C , Office 5.9 % (Normal) Range: 4.6 - 7.1 :17 Blood Glucose , Office (61906) Blood Glucose , Office 107 (Normal) :15 PROL 10.4 ng/mL (Normal) Comments: NORMAL REFERENCE RANGESFEMALENON- 2.2 - 30.3 ng/mL 8.1 - 347.6 ng/mLPOST- MENOPAUSAL 0.7 - 31.5 ng/mLMALE 2.5 - 17.4 ng/mLNEW TEST METHO D & REFERENCE RANGES NOVEMBER 09, 2011; ADDENDA: has f/u on 06/08/13, will review then 16-Aqz-74984:28 BILAT SCRN DIGITAL & CAD Radiology Report [...] be sent to the patient by the [facility] within 30 days. Approximately 10% of breast cancers are not detected by mammography. Anormal mammogram should not delay biopsy of a clinically suspiciousabnormality. Signed:Payton DuttaMarch 15, 2013 at 7:58:55 AM [id number] Signed GP/GP If you are the referring physician and would like to consult with theradiologist who provided this interpretation, please co ntact Unique Yusuf at [phone]. If this radiologist is unavailable, youwill be [...] 03/15/13 0837 Sign by: Aaron Salgado MD 90-Wke-64950:25 Blood Glucose , Office (14085) Blood Glucose , Office 134 (Normal) :25 HgA1C , Office (03618) HgA1C , Office 5.8 % (Normal) Range: 4.6 - 7.1 1-Hcf-584548:22 PELVIC (NON ) Radiology Report See Note [...] Salgado M.D.January 23, 2013 at 2:31:38 PM [phone] Signed GP/GP If you are the referring physician and would like to consult with theradiologist who provided this interpretati on, please contact Unique Yusuf at [phone]. If this radiologist is unavailable, youwill be directed to another radiologist to assist. If you are a patient with a question regarding this report, pleasecontactyour referring physician directly. Professional Interpretation Provided By: Kluster, Phone , These documents contain legally protected [...] size of the right kidney. The right fyfuaqfnocisdu30.4 cm. Ambika l renal cortex. The right cortex measures 1.0 cm. Thereisa 1.1 cm x 1.0 cm x 0.9 cm cyst in the inferior pole. There is no righthydronephrosis. Left Kidney: Normal size of the left kidney. The left kidney yvcpgpcu18.5cm. Normal renal cortex. The left cortex measures 1.9 cm. There is nodemonstrated renal mass or cyst. There is no left hydronephrosis. Aorta: Unremarkable. I.V.C.: The IVC is pa tent. There is no ascites. IMPRESSION:Fatty infiltration of the liver. The patient is status postcholecystectomy. Signed:Aaron Salgado M.D.January 23, 2013 at 2:2 8:11 PM [id number] Signed GP/GP If you are the referring physician and would like to consult with theradiologist who provided this interpretation, please contact Payton Yusuf at [phone]. If this radiologist is unavailable, youwill be directed to another radiologist to assist. If you are a patient with a question regarding this report, pleasecontactyour referring phys ician directly. Professional Interpretation Provided By: Kluster, Phone , These documents contain legally protected [...] Salgado M.D.January 23, 2013 at 2:31:38 PM [id number] Signed GP/GP If you are the referring physician and would like to consult with theradiologist who provided this interpretati on, please contact Unique Yusuf at [phone]. If this radiologist is unavailable, youwill be directed to another radiologist to assist. If you are a patient with a question regarding this report, pleasecontactyour referring physician directly. Professional Interpretation Provided By: Kluster, Phone , These documents contain legally protected [...] 01/24/13 1043 Sign by: Aaron Salgado MD 21-Tzv-475627:11 CBC, Platelets & Auto Comments: PATIENT NOT FASTINGPERFORMED BY: LabCoKindred Hospital at RahwayPnalsh8990 [facility] [id number] Information: [id number] Diff (78090) Immature Grans (Abs) 0.0 {x10E3/uL} (Normal) Range: [...] (Normal) Range: 70-110 :33 HgA1C , Office (35111) HgA1C , Office 5.8 % (Normal) Range: 4.6 - 7.1 :53 METABOLIC PANEL, COMPREHENSIVE Comments: PATIENT WAS FASTINGPERFORMED BY: LabCoKindred Hospital at RahwayGjyiqp2063 [facility] [id number] (54658) ALT (SGPT) 19 [iU]/L (Normal) Range: 0-32 [...] Glucose, Serum 88 mg/dL (Normal) Range: 65-99 89-Cix-694900:53 CBC WITH MANUAL DIFF Comments: PATIENT WAS FASTINGPERFORMED BY: LabCoKindred Hospital at RahwayTsgogt3523 [facility] [id number] Information: [id number] (26113) Immature Grans (Abs) 0.0 {x10E3/uL} (Normal) Range: [...] 3.77-5.28 WBC 7.5 {x10E3/uL} (Normal) Range: 4.0-10.5 57-Nij-513144:53 LIPID PANEL (81578) Comments: PATIENT WAS FASTINGPERFORMED BY: [facility]Corewell [facility]6370 [facility] [id number] LDL/HDL Ratio 3.3 {ratio_units} (Abnormal) Range: 0.0-3.2 [...] Salgado M.D.January 18, 2012 at 10:04:04 AM [id number] Signed GP/GP If you are the referring physician and would like to consult with theradiologist who pro vided this interpretation, please contact Unique Yusuf at [phone]. If this radiologist is unavailable, youwill be directed to another radiologist to assist. If you are a patient with a q uestion regarding this report, pleasecontactyour referring physician directly. Professional Interpretation Provided By: SportsBU[employer]spPingpigeon, Phone , Dictated on 01/18/12 0759 by Damian FLYNN,Lauritascribed on 01/18/12 1010 by ITS IMPORTSign by Aaron Salgado MD on 01/18/12 1011 Sign by: Aaron Salgado MD 8-Fmj-475467:43 MICROALBUMIN: CREATININE RATIO Comments: PATIENT WAS FASTINGPERFORMED BY: [facility]6370 [facility] [id number] (73640) AND (31502) Microalb/Creat Ratio 1.4 {mg/g_creat} (Normal) Range: 0.0-30.0 Microalbumin, Urine 2.3 ug/mL (Normal) Range: 0.0-17.0 Creatinine, Urine 167.9 mg/dL (Normal) Range: 15.0-278.0 :43 METABOLIC PANEL, COMPREHENSIVE Comments: PATIENT WAS FASTINGPERFORMED BY: JERMAINE [employer]70 [facility] [id number] (37199) ALT (SGPT) 24 [iU]/L (Normal) Range: 0-40 [...] Glucose, Serum 95 mg/dL (Normal) Range: 65-99 4-Znv-902174:43 LIPID PANEL (16062) Comments: PATIENT WAS FASTINGPERFORMED BY: JERMAINE [employer]6370 [facility] [id number] LDL/HDL Ratio 3.2 {ratio_units} (Normal) Range: 0.0-3.2 LDL Cholesterol Calc 115 mg/dL (Abnormal) Range: 0-99 VLDL Cholesterol José Luis 29 mg/dL (Normal) Range: 5-40 HDL Cholesterol 36 mg/dL (Abnormal) Comments: According to ATP-III Guidelines, HDL-C >59 mg/dL is considered anegative risk factor for CHD. Triglycerides 146 mg/dL (Normal) Range: 0-149 Cholesterol, Total 180 mg/dL (Normal) Range: 100-199 5-Qyg-993759:43 CBC WITH MANUAL DIFF Comments: PATIENT WAS FASTINGPERFORMED BY: [facility]Corewell [facility]6370 [facility] [id number] Information: [id number] (22654) Immature Grans (Abs) 0.0 {x10E3/uL} (Normal) Range: [...] population. WBC 5.9 {x10E3/uL} (Normal) Range: 4.0-10.5 53-Zzl-205843:18 HgA1C , Office (67834) HgA1C , Office 6.1 % (Normal) Range: 4.6 - 7.1 88-Flb-927430:18 Blood Glucose , Office (83235) Blood Glucose , Office 125 (Normal) 98-Jvd-551114:00 Thin prep Pap Comments: Source.............Cervical;EndocervicalNo. of containers..01 CYTYC Thin Prep VialPATIENT NOT FASTINGPERFORMED BY: LabCo[address] [id number] Information: [id number] ([id number]) Note: PAPSMR (Normal) Comments: The Pap smear [...] ; Routine gynecolog ical examina Imelda Batres Professor Of Rhetoric (ASCP) 32-Crr-66311:00 THU LEZAMA DIGITAL & CAD Radiology Report [...] 0620 Sign by: __ Aaron Salgado MD 2-Oca-586567:24 CBC & PLATELETS (AUTO) Comments: PATIENT NOT FASTINGPERFORMED BY: LabCoKindred Hospital at RahwayYorvxn2433 [facility] [id number] Information: [id number]; appt 11/28/10 (32451) MCH 31.6 pg (Normal) Range: 27.0-34.0 MCHC [...] 45 63 >63Performed at: S7 - [facility] [address] [place], [place] [id number] Director: Stefano Mace PhD, Phone: [phone] HDL SIZE <TEST NOT PERFORMED> (Normal) INSULIN [...] TOT 209 mg/dL (Abnormal) LIPIDS . (Normal) 1-Yrg-836140:12 CULT, DP WOUND Comments: COMMENTS: CULTURE, SENSITIVITY,AREOBES, [...] STRIMETHOPRIM/SULFAMETHOXAZ $ <=10 SVANCOMYCIN $ 1 S 3-Lit-267184:10 CBC Comments: COMMENTS: AC ROOM 6 HCT [...] 11.6-14.6 WBC 7.6 K/mm3 (Normal) Range: 4.4-11.0 69-Ioi-13902:40 CULTURE, NOSE GRAM STAIN See Note (Normal) [...] 1 S :56 Blood Glucose , Office (06736) Blood Glucose , Office 102 (Normal) :56 HgA1C , Office (83377) HgA1C , Office 6.1 % (Normal) Range: 4.6 - 7.1 :49 MICROALBUMIN: CREATININE Comments: PATIENT WAS FASTINGPERFORMED BY: Fede [employer]0 [facility] [id number] BY: JERMAINE Moonbasabutch CosmeLmnkso7675 [facility] [id number] RATIO (42575) AND (61674) Microalb/Creat Ratio 2.3 {mg/g_creat} (Normal) Range: 0.0-30.0 Microalbumin, Urine 3.4 ug/mL (Normal) Range: 0.0-17.0 Creatinine, Urine 150.2 mg/dL (Normal) Range: 15.0-278.0 :49 LIPOPROTEIN, BLD, BY NMR Comments: PATIENT WAS FASTINGPERFORMED BY: Fede Swift Identity0 [facility] [id number] BY: JERMAINE LabCoKindred Hospital at RahwayOmfpfq3271 [facility] [id number] Information: ADD [id number] AND DRAW FEE 99 [id number] (48735) LP-IR 83 Comments: The LP-IR Score combines [...] (Abnormal) Choleste 220 mg/dL galina, (Abnormal) Total 61-Mnm-41377:49 METABOLIC PANEL, Comments: PATIENT WAS FASTINGPERFORMED BY: Fede [employer] Zky9662 Tomás [facility] [id number] BY: LabCo Gqvxke5694 [facility] [id number] COMPREHENSIVE (53443) ALT (SGPT) 22 [iU]/L (Normal) Range: 0-40 [...] Glucose, Serum 107 mg/dL (Abnormal) Range: 65-99 74-Fuo-87765:49 LIPID PANEL (51269) Comments: PATIENT WAS FASTINGPERFORMED BY: Fede [employer] Php0815 Tomás [facility] HospitaleiCrozer-[facility] [id number] BY: JERMAINE LabCoKindred Hospital at RahwayCaatjm1614 [facility] [id number] LDL Cholesterol Calc 135 mg/dL (Abnormal) Range: 0-99 LDL/HDL Ratio 4.1 {ratio_units} (Abnormal) Range: 0.0-3.2 VLDL Cholesterol José Luis 52 mg/dL (Abnormal) Range: 5-40 HDL Cholesterol 33 mg/dL (Abnormal) Comments: According to ATP-III Guidelines, HDL-C >59 mg/dL is considered anegative risk factor for CHD. Triglycerides 261 mg/dL (Abnormal) Range: 0-149 Cholesterol, Total 220 mg/dL (Abnormal) Range: 100-199 05-Xti-40358:49 CBC WITH MANUAL DIFF Comments: PATIENT WAS FASTINGPERFORMED BY: Fede [employer] Irs9162 [facility] [id number] BY: JERMAINE [facility] Ookrfp8354 [facility] [id number] (40697) Baso (Absolute) 0.1 {x10E3/uL} (Normal) Range: 0.0-0.2 [...] 3.80-5.10 WBC 6.7 {x10E3/uL} (Normal) Range: 4.0-10.5 5-Vty-307509:35 MARYJANE CULTURE-OTHER (49304) Comments: PATIENT NOT FASTINGPERFORMED BY: [facility]6370 [facility] [id number] Information: SRC:THRT [id number] Result 1 RRF (Normal) Comments: Routine respiratory bin Upper Respiratory Culture Final report (Normal) 23-Jul-20098:07 Rapid Strep Test, Office (33533) Rapid Strep Test, Negative (Normal) Office 27-Feb-20098:2 Potassium, Serum 3.8 mmol/L (Normal) Comments: PATIENT WAS FASTINGPERFORMED BY: [facility]6370 [facility] [id number] Range: 3.5-5.2 86-Fhz-343463:00 BILAT SCRN DIGITAL & CAD Radiology Report See Note (Normal) Comments: Exam Number: [id number] MAMMOGRAM, BILATERAL SCREENING DIGITAL AND CAD HISTORYRoutine [...] werealso examined with computer-aided detection s oftware ([employer] Reported By: KENNA SWEET M.D. 27-Feb-20098:24 Lipid Panel (27972) Comments: PATIENT WAS FASTINGClinical Information: ADD [id number], [id number] PERFORMED BY: [address] [place] [id number] Cholesterol, Total 224 mg/dL (Abnormal) Range: 100-199 HDL Cholesterol 31 mg/dL (Abnormal) Comments: According to ATP-III Guidelines, HDL-C >59 mg/dL is considered anegative risk factor for CHD. LDL Cholesterol Calc 122 mg/dL (Abnormal) Range: 0-99 LDL/HDL Ratio 3.9 {ratio_units} (Abnormal) Range: 0.0-3.2 Triglycerides 354 mg/dL (Abnormal) Range: 0-149 VLDL Cholesterol José Luis 71 mg/dL (Abnormal) Range: 5-40 56-Ins-878394:16 JESUS ALBERTO (ANTINUCLEAR ANTIBODY) Comments: PATIENT NOT FASTINGPERFORMED BY: MoonbasaKevin V[place] 5110670 [facility] [id number] (60569) Antinuclear Antibodies Direct Negative (Normal) :16 C-REACTIVE PROTEIN (43195) Comments: PATIENT NOT FASTINGPERFORMED BY: MoonbasaKindred Hospital at RahwayVaorie9389 [facility] [id number] C-Reactive Protein, Quant 8.0 mg/L (Abnormal) Range: 0.0-4.9 76-Let-483975:16 CBC (AUTO) (75238) Comments: PATIENT NOT FASTINGPERFORMED BY: MoonbasaKindred Hospital at RahwayDnqnpl2318 [facility] [id number] Hematocrit 42.4 % (Normal) Range: 34.0-44.0 Hemoglobin 14.4 g/dL (Normal) Range: 11.5-15.0 MCH 31.9 pg (Normal) Range: 27.0-34.0 MCHC 34.0 g/dL (Normal) Range: 32.0-36.0 MCV 94 fL (Normal) Range: 80-98 Platelets 160 {x10E3/uL} (Normal) Range: 140-415 RBC 4.52 {x10E6/uL} (Normal) Range: 3.80-5.10 RDW 14.1 % (Normal) Range: 11.7-15.0 WBC 7.6 {x10E3/uL} (Normal) Range: 4.0-10.5 86-Bkm-461680:16 Folate (52617) Comments: PATIENT NOT FASTINGPERFORMED BY: [facility]6370 [facility] [id number] Folate (Folic Acid), Serum 17.4 ng/mL (Normal) Comments: Indeterminate: 3.4 - 5.4 Deficient: <3.4 62-Tyj-504509:16 METABOLIC PANEL, COMPREHENSIVE Comments: PATIENT NOT FASTINGPERFORMED BY: [facility]6370 [facility] [id number] (70520) A/G Ratio 1.2 (Normal) Range: 1.1-2.5 Albumin, [...] Sodium, Serum 142 mmol/L (Normal) Range: 135-145 90-Rko-406094:16 RHEUMATOID FACTOR-QUANT (45286) Comments: PATIENT NOT FASTINGPERFORMED BY: [facility]6370 [facility] [id number] RA Latex Turbid. 9.3 {IU/mL} (Normal) Range: 0.0-13.9 :16 SED RATE ERYTHROCYTE (03206) Comments: PATIENT NOT FASTINGPERFORMED BY: LabWilliam Ville 7445270 [facility] [id number] Sedimentation Rate-Westergren 21 mm/h (Normal) Range: 0-30 54-Afs-402114:16 TSH (10916) Comments: PATIENT NOT FASTINGPERFORMED BY: [place] 5528470 [facility] [id number] TSH 2.690 {uIU/mL} (Normal) Range: 0.450-4.500 92-Coq-633323:16 VITAMIN B-12 (CYANOCOBALAMIN) Comments: PATIENT NOT FASTINGPERFORMED BY: [place] 5528470 [facility] [id number] (90710) Vitamin B12 348 pg/mL (Normal) Range: 211-911 23-Jan-20099:35 Lipid Panel (22047) Comments: PATIENT WAS FASTINGClinical Information: ADD [id number], [id number] PERFORMED BY: [address] [id number] Cholesterol, Total 208 mg/dL (Abnormal) Range: 100-199 HDL Cholesterol 32 mg/dL (Abnormal) Comments: According to ATP-III Guidelines, HDL-C >59 mg/dL is considered anegative risk factor for CHD. LDL Cholesterol Calc 124 mg/dL (Abnormal) Range: 0-99 LDL/HDL Ratio 3.9 {ratio_units} (Abnormal) Range: 0.0-3.2 Triglycerides 261 mg/dL (Abnormal) Range: 0-149 VLDL Cholesterol José Luis 52 mg/dL (Abnormal) Range: 5-40 74-Two-405595:47 HgA1C , Office (31744) HgA1C , Office 5.8 % (Normal) Range: 4.6 - 7.1 16-Kpp-560359:47 Blood Glucose , Office (59496) Blood Glucose , Office 128 (Normal) 84-Jud-987140:43 Urinalysis, Office (49206) UA - LEUKOCYTE ESTERASE Trace (Normal) UA [...] sinusitis Planned Observations TSH (THYROID STIMULATING HORMONE) (76300)Indication: Transient disorientation On: 2-Bea-398032:23 Request LIPID PANEL (46466)Indication: Mixed hyperlipidemia On: 8-Qfo-204031:45 Request Platelet 30673 (citrate, nonclumping tube)Indication: Thrombocytopenia, unspecified On: 22-Jul-20178:19 Request Metabolic Panel, Comprehensive (08239)Indication: Benign essential hypertension On: 35-Zlu-909980:46 Request MICROALBUMIN: CREATININE RATIO (20710) AND (44805)Indication: Benign essential hypertension On: 00-Bmi-862478:45 Request URINALYSIS (56516)Indication: Benign essential hypertension On: 06-Ztn-481020:45 Request CBC WITH MANUAL DIFF (05703)Indication: Benign essential hypertension On: 59-Sfy-464224:45 Request Platelet Count, Citrated (42955)Indication: Thrombocytopenia, unspecified On: :11 Request LIPOPROTEIN, BLD, BY NMR (37080)Indication: Mixed hyperlipidemia On: :07 Request Lipase (68974)Indication: Abdominal pain On: 74-Qcp-961701:24 Request Comments: add to hospital labs. Amylase (28649)Indication: Abdominal pain On: 98-Nfk-508030:24 Request Comments: add to hospital labs. Antiphospholipid atb (41052)Indication: Pulmonary emboli On: :27 Request ANTICOAG ANTTHROMB III & ASSAY (07683)Indication: Pulmonary emboli On: :27 Request METABOLIC PANEL, COMPREHENSIVE (77151)Indication: Benign essential hypertension On: :37 Request Comments: in three months (approximately) CBC with auto diff (92108)Indication: Benign essential hypertension On: :37 Request Comments: in three months (approximately) Troponin I (64288)Indication: Chest pain at rest On: : Request CPK MB FRACTION (34612)Indication: Chest pain at rest On: : Request CREATINE KINASE TOTAL (01766)Indication: Chest pain at rest On: : Request D-Dimer (91395)Indication: Chest pain at rest On: 2-Zfb-361162:00 Request Metabolic Panel, Basic (86055)Indication: Chest pain at rest On: :58 Request CBC (Auto) (85682)Indication: Chest pain at rest On: :58 Request URINALYSIS, W/ MICRO (88830)Indication: Benign essential hypertension On: :29 Request METABOLIC PANEL, COMPREHENSIVE (43975)Indication: Benign essential hypertension On: :29 Request LIPID PANEL (70847)Indication: Benign essential hypertension On: :29 Request CBC W/AUTO DIFF WBC (38481)Indication: Benign essential hypertension On: :29 Request URINALYSIS (03986)Indication: UTI (lower urinary tract infection) On: :49 Request LIPID PANEL (81907)Indication: Benign essential hypertension On: :27 Request CBC WITH MANUAL DIFF (45175)Indication: Thrombocytopenia, unspecified On: :27 Request METABOLIC PANEL, COMPREHENSIVE (97941)Indication: Benign essential hypertension On: :27 Request TSH (THYROID STIMULATING HORMONE) (69592)Indication: Post-menopausal bleeding On: :37 Request PROLACTIN (71935)Indication: Post-menopausal bleeding On: 59-Voa-86799:37 Request HEPATIC FUNCTION PANEL (52321)Indication: Hyperglyceridemia On: :05 Request LIPOPROTEIN, BLD, BY NMR (84052)Indication: Hyperglyceridemia On: :04 Request CBC, Platelets & Auto Diff (26365)Indication: Thrombocytopenia, unspecified On: :04 Request Comments: citrate tube Potassium Serum (71157)Indication: Hypokalemia On: 98-Ssj-560424:36 Request Planned Encounters Medical; JULIANNEP Pre Wellness Exam (DB Nurse) - On: 26-Jul-2018 8:00 [facility] SUZY Spencer; CARRIE Wellness Exam (Doctor) - On: 16-Aug-2018 8:00 [facility] Kelly Hannah MD, MD, Dana M Planned Procedures EEGBy: Kelly Hannah MD On: 21-May-2018 Intent Kelly FLYNN MRI OF BRAIN WITH AND WITHOUT On: 21-May-2018 Intent CONTRAST (00083)By: Kelly Hannah MD, MD, Dana M EKG (81310)By: Kelly Hannah MD On: 02-Dec-2017 Intent Kelly Hannah MD Radiology - Foot - LeftBy: Brielle On: 12-Aug-2017 Intent Kelly FLYNN MD, Dana M TDAP VACCINE >7 IM (20511)By: On: 22-Jul-2017 Intent Kelly Hannah MD, MD, Dana Comments: tdap 0.5mL prefilled syringelot:3HT29djt:10/2019L DELT IMpt tolerated wellAD MEDICAL OBSERVER M MAMMOGRAM BREAST BILATERAL SCREENING On: 02-Apr-2017 Intent DIGITAL (21169)By: Kelly Hannah MD, MD, Dana M Kenalog Injection, 10 mgm On: 15-Feb-2017 Intent (J3301)By: Kelly Hannah MD Comments: lot numer [id number] 05/08 marcaine [id number] 06/21/18 Kelly Hannah MD Echo CompleteBy: Kelly Hannah MD On: 10-Sep-2016 Intent Kelly Hannah MD Comments: rule out pericarditis and ? pericardial fluid EKG (28219)By: Kelly Hannah MD On: 04-Sep-2016 Intent Kelly Hannah MD Comments: see scanned document of test done to see results reviewed today with patient Bone Density StudyBy: Brielle FLYNN, On: 09-Jun-2016 Intent Kelly Hernandez MD Kenalog Injection, 10 mgm On: 21-Apr-2016 Intent (J3301)By: Kelly Hannah MD Comments: buupivacaine lot 61-147-0k 06-21-17 kenalog [id number] 09-05 Kelly Hannah MD DOPPLER ULTRASOUND OF RIGHT UPPER On: 20-Apr-2016 Intent EXTREMITY FOR VENOUS THROMBOEMBOLISM (77519)By: Kelly Hannah MD, MD, Dana M MAMMOGRAM, SCREENING, BOTH BREAST On: 27-Feb-2016 Intent (25080)By: Kelly Hannah MD, MD, Dana M Venous Doppler - BothBy: Brielle FLYNN, On: 06-Dec-2015 Intent Kelly Hernandez MD Comments: lower legs rule out DVT ADMINISTRATION OF INFLUENZA VIRUS On: 18-Apr-2015 Intent VACCINE (G0008)By: Kelly Hannah MD Comments: Lot:[id number]:11-03Route:IMLocation:Rt deltoiiddose: .5mlGiven by:Kelly Potter MD FLU VAC, SPLIT, >3 YEARS, INTRAMUSC On: 18-Apr-2015 Intent (99333)By: Kelly Hannah MD Comments: Lot #:[id number] date:Amount given:0.5mlRoute: IMSite given:L DltdGiven by: Peyton CHAMPION and ABN signed Quad Flu Kelly Hannah MD BILATERAL MAMMOGRAMS (04581)By: On: 05-Nov-2014 Intent Kelly Hannah MD, MD, Dana M CT - Chest (IV Contrast Needed)By: On: 23-Jul-2014 Intent Kelly Hannah MD, MD, Dana M COMPUTED TOMOGRAPHY ANGIOGRAPHY OF On: 23-Jul-2014 Intent CHEST WITH AND WITHOUT CONTRAST Comments: rule out PE (08507)By: Kelly Hannah MD, MD, Dana M EKG (47576)By: Lindsey Verde DO On: 05-Jul-2014 Intent Comments: sinus johanny with no chg MAMMOGRAM, SCREENING, BOTH BREAST On: 26-Apr-2014 Intent (13358)By: Kelly Hannah MD, MD, Dana M BILATERAL MAMMOGRAMS (63240)By: On: 27-Mar-2014 Intent Kelly Hannah MD, MD, Dana M IMMUNIZ ADMNIN, 1 VAC, SNGL/COMBO On: 27-Mar-2014 Intent (83384)By: Kelly aHnnah MD Comments: Lot #[id number]-L dltd, IMDose prefilled syringegiven by:MLJOE alanizNVIS and ABN signed Kelly Hannah MD FLU VAC, SPLIT, >3 YEARS, INTRAMUSC On: 27-Mar-2014 Intent (75901)By: Kelly Hannah MD, MD, Dana M Eprescribed prescriptions (G8553)By: On: 10-Oct-2013 Intent Kelly Hannah MD, MD, Dana M Phenergan Injection, up to 50 mg On: 22-Sep-2013 Intent (J2550)By: Nona Whiting CNP Comments: [id number], IM Nyla, MEDICAL OBSERVER INFUSION, NORMAL SALINE SOLUTION , On: 22-Sep-2013 Intent 1000 CC (Special Coverage Instructions Apply. See MCM: 2049) (J7030)By: Nona Whiting CNP HYDRATION IV INFUSION, INIT On: 22-Sep-2013 Intent (50847)By: Nona Whiting CNP Eprescribed prescriptions (G8553)By: On: 10-Jul-2013 Intent Nathalie Nicole Breast Screening - BilateralBy: On: 06-Feb-2013 Intent Kelly Hannah MD, MD, Dana M IMMUNIZ ADMNIN, 1 VAC, SNGL/COMBO On: 06-Feb-2013 Intent (57698)By: [place] (19711)By: Tj, On: 06-Feb-2013 Intent SUZY Ultrasound - Abdomen Complete & On: 18-Jan-2013 Intent PelvisBy: Nona Whiting CNP EKG (20364)By: Kelly Hannah MD On: 12-Jul-2012 Intent Kelly Hannah MD Comments: see scanned document of test done to see results reviewed today with patient Eprescribed prescriptions (G8553)By: On: 12-Jul-2012 Intent Long MEDICAL OBSERVER, Nyla L MAMMOGRAM, SCREENING, BOTH BREASTS On: 06-Oct-2011 Intent ([id number])By: Kelly Hannah MD Comments: 11-04-11 Kelly Hannah MD MAMMOGRAM, SCREENING, BOTH BREASTS On: 28-Nov-2010 Intent ([id number])By: Kelly Hannah MD, MD, Dana M MAMMOGRAM, SCREENING, BOTH BREASTS On: 23-Oct-2010 Intent ([id number])By: Kelly Hannah MD, MD, Dana M EEGBy: Lindsey Verde DO On: 20-Aug-2010 Intent EKG ([id number])By: Kelly Hannah MD On: 20-Dec-2009 Intent Kelly Hannah MD EKG ([id number])By: Kelly Hannah MD On: 17-Jan-2009 Intent Kelly Hannah MD MAMMOGRAM, SCREENING, BOTH BREASTS On: 17-Jan-2009 Intent ([id number])By: Kelly Hannah MD, MD, Dana M Pulse Oximetry ([id number])By: Yung On: 04-Jul-2008 Intent Gabriela Comments: 98% Phenergan Injection, up to 50 mg On: 25-Apr-2008 Intent ([id number])By: Nona Whiting CNP Comments: 25mg given IMAmt: 1mlLot: [id number]: 03/2010Route: IMSite: left hipTolerated: wellGiven By: Sherlyn, MEDICAL OBSERVER INFUSION, NORMAL SALINE SOLUTION , On: 25-Apr-2008 Intent 1000 CC (Special Coverage Comments: IV Therapy initiated (Hamzah Black LPN)22G, 1inchSite: right wristTolerated: wellB. Ino LPN Instructions Apply. See MCM: 2048) ([id number])By: Nona Whiting CNP HYDRATION IV INFUSION, INIT On: 25-Apr-2008 Intent ([id number])By: Nona Whiting CNP FLU VAC, SPLIT, >3 YEARS, INTRAMUSC On: 21-May-2006 Intent ([id number])By: SUZY Spencer IMMUNIZ ADMNIN, 1 VAC, SNGL/COMBO On: 21-May-2006 Intent ([id number])By: SUZY Spencer Planned Medications INFUSION, NORMAL SALINE [...] Depression : Patient Instructions Indication: Depression Encounters Review On: 23-May-2018 13:37 Encounter Reason: Follow up hospital - Reason for ER visit: note: (acute confusion, UTI). The patient feels well with minor complaints and has good energy level. Patient has been compliant with instructions. Patient slee ps 7 hours per night. Impact of [...] for Tdap vaccination (Renamed from Need for kaduydbdrn-ysqgimg-ofiokrymc (Tdap) vaccine, adult/adolescent), Thrombocytopenia, unspecified [facility] [...] feels well with minor complaints (very stressed, betty is an issue with the insurance, so [...] (Pap,Mammo,Routine Female) (Renamed from Well Woman V72.31 (p,m)) [facility] Annotation/Addendum On: 28-Nov-2010 9:33 Encounter Diagnosis: Well Woman Exam (V72.31) (Pap,Mammo,Routine Female) (Renamed from Well Woman V72.31 (p,m)) End: 28-Nov-2010 10:24 Comprehensive [...] Cold Symptoms: Pt just flew home from [place] yesterday.- yellow green nasal discharge- sx for [...] left ear Encounter Diagnosis: End: 28-Oct-2007 13:35 [facility] Refill Request On: 14-Oct-2007 [...]
--- OUTSIDE RECORDS SUMMARY | 2018-07-14 07:28 | XMS RPT_ITS | Continuity of Care Document ---
:1950 Author Organization [facility] Address [facility] [facility] [address] [place] [address] Phone Care Team Providers Name Role Phone Brielle FLYNN, Kelly Cristina Unavailable Papo Tovar Unavailable Jhony Castillo Unavailable Unavailable Mynor FLYNN, Puneet Unavailable Mae Mcallister Unavailable Dr. Erickson Allen Unavailable Marcia Saunders Unavailable SUZY Spencer Unavailable Unavailable Unavailable Unavailable Problems Name Dates Details Abnormal fasting glucose (R73.01, 790.29) Comments: better with weight loss. and now off Victoza gain weight back. Byetta not work. Victoza worked best but insurance not pay for. will try Tanzeum Status: Active Allergic rhinitis (J30.9, 477.9) Status: Active Benign essential hypertension (I10, 401.1) Comments: stable working on weight loss. once off stimulant will try lowering water pill to 1/2 Status: Active BMI 37.0-37.9, adult (Z68.37, V85.37) Comments: she is swimming walking and did weight watchers three times. Status: Active BMI 38.0-38.9,adult (Z68.38, V85.38) Status: Active BMI 39.0-39.9,adult (Z68.39, V85.39) Comments: BMI= 39.11 Status: Active BMI 40.0-44.9, adult (Z68.41, V85.41) Comments: 40.6 Status: Active Chest pain at rest (R07.9, 786.50) Comments: in hospital work up negative CTA chest and stress test. cath 10-05 not bad. now seems muscular. had again and she always worry about PE and negative work up 02-05 right now no return not thin k need stres s if have signs and symptoms again or progressive CPthen willstress Status: Active Coronary artery disease due to lipid rich plaque (I25.10, 414.00) Comments: 4- cath 30% LADbv screscreening -18 neg Status: Active Current nonsmoker (Renamed from Current non-smoker) (Z78.9, V49.89) Status: Active Deliveries (Parity) Comments: 2 Status: Active Depression (F32.9, 311) Comments: dealing with son with depression lost job was in . lost [employer] and she has to drive around. life withsomeone OCD, hoarder. on ambien for sleep per Dr. coates. Wellbutrin start but had insomni a in past. working with [employer]. doing okay on incresae welbutrin.tried Effexor, paxil like trintillex but cost Status: Active Encounter for routine adult medical exam with abnormal findings (Z00.01, V70.0) Comments: 07-22-17 [facility] physical: mammogram , BD , has had colonoscopy 2017, hx. total hysterectomy/BSO, PHQ-9=3 (mild), 6CIT=26/28 hep c screen negative. Status: Active Flu-like symptoms (R68.89, 780.99) Comments: think viral at this point. will give anticough. if not better by 7-10 days then need to do atbn. Status: Active Hip pain (M25.559, 719.45) Comments: bilaterally Status: Active History of pulmonary embolism (Z86.711, V12.55) Status: Active Insomnia (G47.00, 780.52) Status: Active [...] adipex and topamax. 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 got new treadmill right now stable not loose it. Status: Active ROSAMARIA on CPAP (G47.33, 327.23) Comments: work with Dr. coates. doing good with this. use romzeman. needs something to help fall asleep Status: Active Pregnancies () Comments: 2 Status: Active Transient confusion (R41.0, 298.9) Status: Active Trochanteric bursitis of both hips (M70.61, 726.5) Status: Active Medications Name Dates Details ASPIRIN EC, 81MG (Oral Tablet Delayed Release) [address] qd for 0 days Quantity: 30 {Tablet} Refills: 0 Ordered:23-Sep-2015 Brielle FLYNN, Kelly Cespedes MD Start : 23-Sep-2015 Active Crestor 5 MG Oral Tablet 1 (one) Tablet Tablet in am for 0 days Quantity: 30 {Tablet} Refills: 6 Ordered:02-Dec-2017 SUZY Spencer Start : 02-Dec-2017 Active HydroCHLOROthiazide 25 MG Oral Tablet 1 Tablet QD for 0 days Quantity: 90 {Tablet} Refills: 3 Ordered:08-Jun-2017 Brielle FLYNN, Kelly Cespedes MD Start : 08-Jun-2017 Active Mobic 15 MG [...] days Quantity: 28 {Tablet} Refills: 0 Ordered:22-Sep-2013 Bharath NATASHAMaria Guadalupe Start : 10-Jul-2013 End : 22-Sep-2013 Inactive [...] 18-Apr-2015 End : 19-Apr-2015 Inactive BD Disp [place] 30G X 1/2 Miscellaneous 1 (one) Misc [...] days Quantity: 90 {Tablet} Refills: 3 Ordered:19-Jan-2007 Maria Guadalupe Sinha LPN Start : 19-Jan-2007 End : 28-Jan-2007 Inactive GUAIATUSSIN AC, 100-10MG/5ML (Oral Syrup) 1 tsp Syrup every six hours, as needed for 30 days Refills: 0 Ordered:30-Jul-2009 SUZY Spencer Start : 30-Jul-2009 End : 29-Aug-2009 Inactive Comments:Medication taken as needed. called to [facility] 10 erussell disp 4 ounces no refills INDOMETHACIN, [...] Extended Release) 1 (one) Tablet ER at [facility] for 14 days for 0 days Quantity: 14 {Tablet_ER} Refills: 0 Ordered:02-May-2010 SUZY Spencer Start : 20-Dec-2009 End : 02-May-2010 Inactive NYSTATIN, 685763VQLB/ML (Mouth/Throat Suspension) 15 Suspension qid swish and swallow for 0 days Quantity: 450 {Milliliter} Refills: 0 Ordered:20-Aug-2010 Suzette Black LPN Start : 04-Aug-2010 End : 20-Aug-2010 Inactive PANTOPRAZOLE SODIUM, 40MG (Oral Tablet Delayed Release) 1 (one) Tablet DR daily for 0 days Quantity: 30 {Tablet} Refills: 6 Ordered:06-Dec-2015 SUZY Spencer Start : 20-Apr-2015 End : 06-Dec-2015 Inactive Pen [place]videre 5/16 31G X 8 MM Miscellaneous 1 [...] Comments:Per fax req, [facility] Tussionex Pennkinetic ER 10-8 MG/5ML Oral Suspension Extended [...] Leanne Marie Start : 29-Jul-2009 Inactive ZOSTAVAX, 22572DOB/0.65ML (Subcutaneous Solution Reconstituted) uad For Solution one time SQ dose for 0 days Quantity: 1 {For_Solution} Refills: 0 Ordered:05-Jun-2013 SUZY Spenecr Start : 06-Feb-2013 End : 05-Jun-2013 Inactive [...] 30 {Tablet} Refills: 3 Ordered:27-Aug-2016 Kelly Hannah MD, MD, [...] epig was in hospital and work up 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 ppi and carafate helping. [...] (Z68.38, V85.38) Status: Inactive as of 27-Aug-2016 Bronchitis (J40, 490) Status: Inactive as of [...] for Tdap vaccination (Renamed from Need for tcitqcagrt-ccyxwvs-exebxiesf (Tdap) vaccine, adult/adolescent) (Z23, V06.1) Status: Resolved [...] for 6 months. after knee surgery started 05-04. 02-02 check ddimer normal, off xareltodx - Status: Resolved as of 09-Jun-2016 SCREENING FOR [...] at hospital and they will look at raúl am before surgery to to assure no more bacterial Status: Inactive as of 04-Feb-2015 Viral infection (B34.9, 079.99) Comments: not think needs atb yet. use manoj MONTE told when need to call for atb Status: Resolved as of 22-Jul-2017 WWV V73.21 Comments: scope in last 5 years Status: Inactive as of 06-Feb-2013 Procedures Procedure Dates Details appendectomy 1999 Completed cholecystectomy 1980 Completed D and C Completed Hysterectomy; Total Completed Comments: 2013 Knee Replacement, Total Completed Comments: 2007, 2013 bilateral LEFT HEART CARDIAC CATH (95215) Completed Comments: Dr. Alexander nasal abscess I and D 04-30 Completed Date Value Details 23-May-2018 Brain W/WO Contrast Result: Comments: See Note; NOTES: [facility] Imaging Services [address] [place] [address] Brain W/WO Contrast MR#: [id number] Acct: [id number] Name: DIANA ESCUDERO OLGA Rep #: [id number] : 1950 F 68 From: Jimmy Kang MD PCP: Kelly Hannah MD Status: REG CLI Study: Brain W/WO Contrast Date of Exam: 05/23/18 Exam# [id number] Ordering Dr: Kelly Hannah MD STUDY: MRI [...] rvice support , CC: Kelly Hannah MD Parts Professional: Signed 19-May-2018 Brain/Head without Contrast Result: Comments: See Note; NOTES: [facility] Imaging Services [address] [place] [address] Brain/Head without Contrast MR#: [id number] Acct: [id number] Name: DIANA ESCUDERO Rep # : [id number] : 1950 F 68 From: Kalia Galan PCP: Kelly Hannah MD Status: [facility] Study: Brain/Head without Contrast Date of Exam: 05/19/18 Exam# [id number] Ordering Dr: Puneet Johnson MD STUDY: C [...] CC: Kelly Hannah MD; Puneet Johnson MD Parts Professional: Signed 19-May-2018 Chest 1 View Result: Comments: See Note; NOTES: [facility] Imaging Services [address] [place] [address] Chest 1 View MR#: [id number] Acct: [id number] Name: DIANA ESCUDERO Rep #: [id number] : 1950 F 68 From: Aaron Salgado MD PCP: Kelly Hannah MD Status: [facility] ER Study: Chest 1 View Date of Exam: 05/19/18 Exam# [id number] Ordering Dr: Puneet Johnson MD STUDY: X-RAY [...] Aaron Salgado MD at 8:13 EST Tel [phone], Service support , CC: Kelly Hannah MD; Puneet Johnson MD Parts Professional: Signed 03-Mar-2018 Inital Evaluation (1) - PT Result: Comments: See Note; NOTES: [facility] Physical Therapy [facility] [address] [place] [address] Fax REHABILITATION SERVICES INITIAL EVALUATION MR#: [id number] Acct: [id number] Name: DIANA ESCUDERO Rep #: [id number] : 1950 68 From: Lazaro Jackson DPT Referring Dr.: GENOVEVA Myers Status: REG RCR Insurance: [employer] PPO SELF PAY INSURANCE Patient's Visit Information [...] stabing pain (8/10) at rest. 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 Please let me know if there are questions or concerns regarding this plan of care. Physician Signature: Date: <Electronically signed by Lazaro Jackson DPT&amp ;#62; 03/03/18 6287 CC: GENOVEVA Myers; Kelly Hannah MD CLS Signed For Medicare only, by signing this I certify the plan of care. Physicians Signature Date 16-Feb-2018 12 Lead Electrocardiogram Result: Comments: See Note; NOTES: [facility] Cardiovascular Services [address] [place] [address] 12 Lead EKG 02/14/18 1459 MR#: [id number] Acct: [id number] Name: DIANA ESCUDERO Rep #: [id number] : 1950 68 From: Harris Brandt MD [...] Int : 401 ms Sinus bradycardia Inferior [place], age undeterm ined, cannot be excluded Confirmed by KEVIN FLYNN, HARRIS ([id number]), editorial intern SHIELA DOWELL (56) on 02/16/2018 1:34:57 PM Referred By: BRIEN Confirmed By:HARRIS BRANDT MD 02/16/18 1335 Date __ Harris Brandt MD CC: Kelly Hannah MD; Kasi Worley MD Signed 15-Feb-2018 Emergency Department Summary Result: Comments: See Note; NOTES: [facility] Medical Records Department [address] [place] [address] Emergency Department Summary 02/14/18 1636 MR#: [id number] Acct: [id number] Name: DIANA ESCUDERO OLGA Rep #: [id number] : 1950 68 From: Kasi Worley MD [...] score 1. This note was generated with [employer] dictation software. It may contain incorrect words, [...] your Primary Care Provider. Call [facility] ([phone]) or report to the closest Emergency Room. Call 911 if necessary. 02/15/18 0046 <Electronically signed by Jose Daniel Worley MD> Date Kasi Worley MD Cosigner Signature (If Indicated): Date CC: Kelly Hannah MD 14-Feb-2018 Venous Duplex Lower Extremity Result: Comments: See Note; NOTES: [facility] Cardiovascular Services [address] [place] [address] Venous Duplex US, Unilateral 02/14/18 1549 MR#: [id number] Acct: [id number] Name: DIANA HICKMAN OLGA Rep #: [id number] : 1950 68 From: Abdoulaye Landa MD [...] Abdoulaye Landa MD on 02/14/2018 05:41 PM 02/14/181740 Date Abdoulaye Landa MD CC: Kelly Hannah MD; Kasi Worley MD Date Dictated: 0 02/14/18 1549 Date Transcribed: 02/14/181740 Parts Professional: Signed 14-Feb-2018 Chest 1 View (Portable) Result: Comments: See Note; NOTES: [facility] Imaging Services [address] [place] [address] Chest 1 View (Portable) MR#: [id number] Acct: [id number] Name: DIANA ESCUDERO Rep #: [id number] : 1950 F 68 From: Aaron Salgado MD PCP: Kelly Hannah MD Status: REG ER Study: Chest 1 View (Portable) Date of Exam: 02/14/18 Exam# [id number] Ordering Dr: Kasi Worley MD STUD Y: [...] Aaron Salgado MD at 15:52 EDT Tel [phone], Service support , CC: Kelly Salgado; Kasi Worley MD Parts Professional: Signed 24-Jan-2018 Cardiology Visit Report Result: Comments: See Note; NOTES: [facility] [address] [place] [address]. [address] [place] [address] OFFICE VISIT Date of Service: 01/24/18 MR#: [id number] Acct: [id number] Name: DIANA ESCUDERO Rep #: [id number] : 1950 Provider: Puneet Alexander MD Age/Sex: 67/F Location: [facility] Status: Signed HPI HPI Chief Complaint: Routine [...] recumbent bike without difficulty. In our office towalter y her blood pressure is 100/64, and pulse [...] [facility]: [facility] Allergies simvastatin [From Zocor] Adverse [...] mg PO QDAY 01/24/18 [History Confirmed 01/24/18] PFSH Medical History Obstructive sleep apnea (Chronic) History of pulmonary embolism (Chr onic) Atherosclerosis of coronary artery of [place] heart without angina pectoris (Chronic) Hypertension (Chronic) [...] Plan 1. Atherosclerosis of coronary artery of [place] heart without angina pectoris I25.10 Non Obs [...] 3 Diagnoses Atherosclerosis of coronary artery of [place] heart without angina pect ranulfo I25.10 Hyperlipidemia E78.5 Coding Level of Care Code Off vis,est,level 3 Diagnoses Atherosclerosis of coronary artery of [place] heart without angina pectoris I25.10 Hyperlipidemia E78.5 12/06 1536 <Electronically signed by Puneet Alexander MD> Date Puneet Alexander MD Cosigner Signature: Date (if applicable) CC: Kelly Hannah MD 12-Aug-2017 Foot min 3 Views Result: Comments: See Note; NOTES: [facility] Imaging Services [address] [place] [address] Foot min 3 Views MR#: [id number] Acct: [id number] Name: DIANA ESCUDERO OLGA Rep #: [id number] : 1950 F 67 From: Aaron Salgado MD PCP: Kelly Hannah MD Status: REG CLI Study: Foot min 3 Views Date of Exam: 08/12/17 Exam# [id number] Ordering Dr: Kelly Hannah MD STUDY: X-RAY [...] Salgado MD 08/08/21 at 14:14 EST Tel [phone], Service support , CC: Kelly Hannah MD Parts Professional: Signed 05-Aug-2017 TXT - Blood Flow Screening Result: Comments: See Note; NOTES: [facility] Cardiovascular Services [address] [place] [address] 08/05/17 0756 MR#: [id number] Acct: [id number] Name: DIANA ESCUDERO OLGA Rep #: [id number] : 1950 67 From: Marcus Garza MD Attending Dr: Kelly Hannah MD Status: REG REF Ordering Dr: Date: 08/05/17 Location[facility] Sex: F C Admitted: Carotid Duplex Ultrasound [...] Marcus Garza MD on 08/05/2017 09:30 PM 08/05/172129 Date Marcus Garza MD CC: Kelly Hannah MD Date Dictated: 08/05/17 0756 Date T ranscribed: 08/05/172129 Parts Professional: Signed 15-Jul-2017 Cardiology Visit Report Result: Comments: See Note; NOTES: [facility] [address] [place] [address] OFFICE VISIT Date of Service: 07/15/17 MR#: [id number] Acct: [id number] Name: DIANA ESCUDERO OLGA Rep #: [id number] : 1950 Provider: Puneet Alexander MD Age/Sex: 67/F Location: [facility] Status: Signed HPI 6 M FU: Chief Complaint: routin F/u [...] Hyperlipidemia (Chronic) Atherosclerosis of coronary artery of [place] heart without angina pectoris (Chronic) Blood glucose elevated (Chronic) Depression (Chronic) History of pulmonary embolism (Chronic) Migraine (Chronic) Obstructive sleep apnea (Chronic) Surgical History History of appendectomy (Chronic) History of left heart c atheterization (Chronic 09/29/16) History of total abdominal hysterectomy (Chronic) History of total knee replacement (TKR) (Chronic) Hx of cholecystectomy (Chronic) Social History Smoking Status: Ne benji smoker Assessment AND Plan Plan 1. Hypercholesterolemia: [...] of Care Code Off vis,est,level 3 07/15/17 1609 <Electronically signed by Walter Alexander MD> Date Puneet Alexander MD Cosigner Signature: Date (if applicable) CC: 19-Apr-2017 SCREENING MAMM (CAD), BILAT Result: Comments: See Note; NOTES: [facility] Imaging Services [address] [place] [address] SCREENING MAMM (CAD), BILAT MR#: [id number] Acct: [id number] Name: DIANA ESCUDERO Rep # : [id number] : 1950 F 67 From: Aaron Salgado MD PCP: Kelly Hannah MD Status: [facility] Study: SCREENING MAMM (CAD), BILAT Date of Exam: 04/19/17 Exam# [id number] Ordering Dr: Kelly Hannah MD MAMMOGRAPHY - [...] delay biopsy of a clinically suspicious abnormality. [id number] Electronically Signed: Aaron Salgado MD at 8:33 EDT Tel [phone], Service support , CC: Kelly Hannah MD Parts Professional: Signed 16-Sep-2016 Echocardiogram Complete Result: Comments: See Note; NOTES: [facility] Cardiovascular Services [address] [place] [address] Echo Complete 09/16/16 0956 MR#: [id number] Acct: [id number] Name: KENADIANAULI Roberts Rep #: [id number] : 1950 66 From: Emil Craven MD Attending Dr: Kelly Hannah MD Status: REG CLI Ordering Dr: Kelly Hannah MD Date: 09/16/16 Location: [facility] Sex: F C Admitted: Reason [...] Dictated: 09/16/16 0956 Date Transcribed: 09/16/16 1145 Parts Professional: Signed 04-Sep-2016 CTA Chest W/WO Contrast Result: Comments: See Note; NOTES: [facility] Imaging Services [address] [place] [address] Benjidana 4d CTA Chest W/WO Contrast MR#: [id number] Acct: [id number] Name: DIANA ESCUDERO Rep #: [id number] : 1950 F 66 From: Aaron Salgado MD PCP: Kelly Hannah MD Status: REG ER Study: CTA Chest W/WO Contrast Date of Exam: 09/04/16 Exam# [id number] Ordering Dr: Leanne Finn STUDY: CTA CHEST [...] Burak Salgado MD at 11:40 EDT Tel [phone], Service support [phone], CC: Leanne Finn MD; Kelly Hannah MD Parts Professional: Signed 23-Jun-2016 Dexa Bone Density Study (HP) Result: Comments: See Note; NOTES: [facility] Imaging Services [address] [place] [address] Verdana 4d Dexa Bone Density Study (HP) MR#: [id number] Acct: [id number] Name: EDUARDO ESCUDERO OLGA Rep #: [id number] : 1950 F 66 From: Aaron Salgado MD PCP: Kelly Hannah MD Status: REG CLI Study: Dexa Bone Density Study (HP) Date of Exam: 06/23/16 Exam# [id number] Ordering Dr: Kelly Posey MD STUDY: DUAL [...] Aaron Salgado MD at 16:05 EST Tel [phone], Service support [phone], CC: Kelly Hannah MD Parts Professional: Signed 20-Apr-2016 Venous Duplex Lower Extremity Result: Comments: See Note; NOTES: [facility] Cardiovascular Services [address] [place] [address] Venous Duplex US, Unilateral 04/20/16 1428 MR#: [id number] Acct: [id number] Name: DIANA ESCUDERO Rep #: [id number] : 1950 66 From: Marcus Garza MD [...] Date Dictated: 04/20/16 1428 Date Transcribed: 04/20/162149 Parts Professional: Signed 23-Mar-2016 Bilat Scrn Digital AND CAD Result: Comments: See Note; NOTES: [facility] Imaging Services [address] [place] [address] Verdana 4d Bilat Scrn Digital AND CAD MR#: [id number] Acct: [id number] Name: ANGELA ESCUDERO Rep #: [id number] : 1950 F 66 From: Aaron Salgado MD PCP: Kelly Hannah MD Status: REG CLI Study: Mikhail Swann Digital AND CAD Date of Exam: 03/23/16 Exam# [id number] Ordering Dr: Kelly Resendiz i, MD MAMMOGRAPHY [...] There has been no significant change since e prior study. HPBI/Bilchristopher Scrdru Digital AND CAD IMPRESSION: Stable bilateral screening mammogram. Yearly follow-up mammogram recommended. (A) __ ASSESSMENT CATEGORY: BIRADS Category 1: Negative. A letter regarding these results will be sent to the patient by the facility within 30 days. Approximately 10% of br east cancers are not detected by mammography. A normal mammogram should not delay biopsy of a clinically suspicious abnormality. [id number] Electronically Signed: Aaron Salgado MD at 7:51 EDT Tel [phone], Service support [phone], CC: Kelly Hannah MD Parts Professional: Signed 02-Jan-2016 Venous Duplex Lower Extremity Result: Comments: See Note; NOTES: [facility] Cardiovascular Services [address] [place] [address] Venous Duplex US - Johnny Extrem 01/02/16 1454 MR#: [id number] Acct: [id number] Name: DIANA ESCUDERO Rep #: [id number] : 1950 65 From: Marcus Garza MD [...] Performed By: Rachana Egan, ANNEMARIE, RVT 01/02/16 165 Date Marcus Garza MD CC: Kelly Hannah MD Date Dictated: 01/02/16 1454 Date Transcribed: 01/02/161653 Parts Professional: Signed 12-Dec-2015 12 Lead Electrocardiogram Result: Comments: See Note; NOTES: [facility] Cardiovascular Services [address] [place] [address] 12 Lead EKG 12/03/15 1125 MR#: [id number] Acct: [id number] Name: DIANA DOWLING Rep #: [id number] : 1950 65 From: Puneet Alexander MD [...] normal ECG Confirmed by PUNEET ALEXANDER ([id number]), editorial intern SHIELA DOWELL (56) on 12/09/2015 10:54:37 AM Referred By: KIRT Confirmed By:PUNEET ALEXANDER 12/09/15 1054 Date ___ Puneet Alexander MD CC: Kelly Hannah MD Date Dictated: 12/03/151124 Date Transcribed: 12/03/151124 Parts Professional: Signed 03-Dec-2015 Emergency Department Summary Result: Comments: See Note; NOTES: [facility] Medical Records Department [address] [place] [address] Emergency Department Summary MR#: [id number] Acct: [id number] Name: DIANA ESCUDERO Rep #: [id number] : 1950 65 From: Leanne Finn MD [...] PCP. DIAGNOSIS: Pleurisy. Leanne Finn MD T: NTS JOB: [id number] 12/03/15 1536 <Electronically signed by Leanne Finn MD& #62; Date Leanne Finn MD Cosigner Signature (If Indicated): Date CC: Kelly Hannah MD Da te Dictated: 12/03/151356 Date Transcribed: 12/03/151356 Parts Professional: Signed 03-Dec-2015 Discharge Instruction Result: Comments: See Note; NOTES: [facility] Medical Records Department [address] [place] [address] Discharge Instruction 12/03/154 MR#: [id number] Acct: [id number] Name: DIANA ESCUDERO OLGA Rep #: [id number] : 1950 65 From: Leanne Finn MD [...] problems, contact your doctor. Call [facility] ([phone]) or report to the closest Emergency Room. Call 911 if necessary. 12/03/15 1357 &# 60;Electronically signed by Leanne Finn MD> Date Leanne Finn MD Cosigner Signature (If Indicated): Date CC: Kelly Hannah MD 03-Dec-2015 CTA Chest W/WO Contrast Result: Comments: See Note; NOTES: [facility] Imaging Services [address] [place] [address] Verdana 4d CTA Chest W/WO Contrast MR#: [id number] Acct: [id number] Name: DIANA MENESES Rep #: [id number] : 1950 F 65 From: Aaron Salgado MD PCP: Kelly Hannah MD Status: REG ER Study: CTA Chest W/WO Contrast Date of Exam: 12/03/15 Exam# [id number] Ordering D r: Leanne Finn MD STUDY: [...] Aaron Salgado MD at 13:37 EDT Tel [phone], Service support [phone], CC: Leanne Finn MD; Kelly Hannah MD Parts Professional: Signed 24-Jul-2015 Sleep Study Report Result: Comments: See Note; NOTES: [facility] [address] [place] [address] Split Night Sleep Study MR#: [id number] Acct: [id number] Name: Dru ESCUDERO Rep #: [id number] : 1950 65 From: Jimmy Coates MD [...] version). Please note that a reference to [facility] AHI in this report is consistent with the current Hypopnea definition according to Medicare Criteria and an [facility] AHI reference is consistent wit h the current Hypopnea definition according to the AASM criteria and is recognized by [facility] as the RDI. PROCEDURE: The study was attended continuously by a medic technician. Monitored parameters inclu ded left and [...] calculated body mass index of 35 and Huxford Sleepiness Scale score of 6/20. The patient [...] and heated humidity. SLEEP STUDY DATA: The [facility] split night study began at 1114:07 [...] patient is to have a download of smartcard. If the AHI remained elevated, can empirically [...] mass index. INTERPRETING PHYSICIAN: Jimmy Coates Jr., MAmber. Jimmy Coates MD T: SHARMAINE JOB: [id number] CC: Jimmy Coates MD DD: 08/063 1043 07/24/15 2205 <Electronically signed by Jimmy Coates MD> Date Jimmy Coates MD Co-signature (if appli cable) Date Signed 12-Feb-2015 Chest 1 View (Portable) Result: Comments: See Note; NOTES: [facility] Imaging Services [address] [place] [address] Radiology Report MR#: [id number] Acct: [id number] Name: DIANA ESCUDERO Rep #: [id number] : 1950 F 65 From: Aaron Salgado MD PCP: Kelly Hannah MD Status: PRE ER Study: Chest 1 View (Portable) Date of Exam: 02/12/15 Exam# [id number] Ordering Dr: Kenroy Arciniega MD: X-RAY CHEST REASON FOR EXAM: Female, 65 [...] Aaron Salgado MD at 11:08 EDT Tel [phone], Service support [phone], RAD/Chest 1 View (Portable) IMPRESSION: No acut e abnormality is seen. Electronically Signed: Aaron Salgado MD at 11:08 EDT Tel [phone], Service support [phone], CC: Kelly Hannah MD; Kenroy Arciniega MD Parts Professional: Signed 12-Feb-2015 CTA Chest W/WO Contrast Result: Comments: See Note; NOTES: [facility] Imaging Services [address] [place] [address] CAT Scan Report MR#: [id number] Acct: [id number] Name: DIANA ESCUDERO Rep #: [id number] : 1950 F 65 From: Aaron Salgado MD PCP: Kelly Hannah MD Status: REG ER Study: CTA Chest W/WO Contrast Date of Exam: 02/12/15 Exam# [id number] Ordering Dr: Kenroy Arciniega MD ST UDY: CTA CHEST REASON FOR EXAM: Female, [...] Aaron Salgado MD at 12:08 EDT Tel [phone], Service support [phone], CC: Kelly Hannah MD; Kenroy Arciniega MD Parts Professional: Signed 11-Jan-2015 Bilat Scrn Digital AND CAD Result: Comments: See Note; NOTES: [facility] Imaging Services [address] [place] [address] Breast Imaging Report MR#: [id number] Acct: [id number] Name: DIANA ESCUDERO Rep #: [id number] : 1950 F 64 From: Shaan Nunez DO PCP: Kelly Hannah MD Status: REG CLI Study: Mikhail Swann Digital AND CAD Date of Exam: 01/11/15 Exam# [id number] Ordering Dr: Kelly Hannah MD MAMMOGRAPHY - [...] facility within 30 days. According to [employer], yearly mammograms are recommended starting [...] Shaan Nunez DO at 10:22 EDT Tel [phone], Service support [phone], CC: Kelly Hannah MD Parts Professional: Signed 23-Jul-2014 CTA Chest W/WO Contrast Result: Comments: See Note; NOTES: [facility] Imaging Services [address] [place] [address] CAT Scan Report MR#: [id number] Acct: [id number] Name: DIANA ESCUDERO Rep #: [id number] : 1950 F 64 From: Aaron Salgado MD PCP: Kelly Hannah MD Status: REG CLI Study: CTA Chest W/WO Contrast Date of Exam: 07/23/14 Exam# [id number] Ordering Dr: Kelly Hannah MD S DY: CTA CHEST REASON FOR EXAM: Female, 64 [...] Aaron Salgado MD at 12:47 EST Tel [phone], Service support [phone], CC: Kelly Hannah MD Parts Professional: Signed 04-Jan-2014 Consultation Result: Comments: See Note; NOTES: [facility] Medical Records Department [address] [place] [address] Consultation 01/04/14 1218 MR#: [id number] Acct: [id number] Name: DIANA ESCUDERO Rep #: [id number] : 1950 63 From: Juancho Foy MD PCP: Kelly Hannah MD Status: REG [facility] Y Location: [place] [address] Problem List (1) Bradycardia Status: Acute (2) [...] showed sinus bradycardia, normal QRS duration, normal MS interval, normal QT interval, no ischemic hardy [...] PO Q4H PRN PRN #30 tablet 01/04/14 [Gratz 5/325] Surgical History: appendectomy, cholecystectomy, - - Hysterectomy Psychiatric History: No pertinent psych hx 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 Lives: Spouse/ Significant Other Smoking [...] Discharge Instruction Result: Comments: See Note; NOTES: [facility] Medical Records Department [address] [place] [address] Instructions for Home/Discharge Instructions 01/04/14 0731 MR#: [id number] Acc t: [id number] Name: DIANA ESCUDERO Rep #: [id number] : 1950 63 From: Anatoly Diego MD PCP: Kelly Hannah MD Status: REG [facility] Discharge Diet: No Restrictions Discharge Activity: Return [...] PRN PRN #60 capsule Hydrocodone Bitart/Apap 5-325 [Gratz 5/325] 1 tablet PO Q4H PRN PRN #30 tablet Please Follow Up With: Anatoly Diego When: 2-3 weeks Proposed Discharge Date: 01/05/14 01/04/14 0735 <Electronically signed by Anatoly Diego MD> Date Anatoly Diego MD CC: Kelly Hannah MD 10-Oct-2013 EKG (02867) Comments: see scanned document of test done to see results reviewed today with patient Result: [MEASUREMENTS ANALYSIS] Date of Test: 10/10/2013 08:20:27; Heart Rate: 64; MS Interval: 160; QRS: 90; QT Interval: 394; Corrected QT Interval (QTc): 401; P Wave [place]: 50; QRS Wave [place]: 5; T Wave [place]: 14; Blood Pressure: 122/78 [ECG DIAGNOSTIC STATEMENTS] [...] Status: Active 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 Status: Active Living Situation: Lives with domestic partner. Comments: , Christianity Status: Active No Caffeine Use Status: Active No Drug Use Status: Active Non Smoker/No Tobacco Use Status: Active Tobacco Use: Never smoker. Status: Active Smoking Status Name Dates Details Never smoker Vital Signs Date Test Result Details :28 Weight 233 lb Height 65 in [...] Height 0 in Head Circumference 0.00 cm :12 Temperature 97.9 f Comments: Method: Oral Pulse [...] 0.00 cm Results Date Description Value Details :40 Urinalysis, Complete Comments: Order Date: 05/19/18Has pt arrived? YHow was Urine Obtained? [employer]ORING SPECIALIST TO [facility] [address] [place], [address] MUCUS, URINE 0 SEEN {/hpf} (Normal) BACTERIA [...] CLARITY Sl. Cloudy (Normal) COLOR Yellow (Normal) :26 Basic Metabolic Profile (BMP) Comments: [facility] [address] [place], [place], [address] GAP 5 (Normal) Range: 5-15 CO2 29.0 [...] A.D.A. criteria.Please note revised GLUCOSE reference range puewuujrd68/02/2018. 33-Oqb-06320:26 CBC W/Diff, Automated Comments: [facility] [address] [place], [address] Absolute Lymph 2.03 {X10_3/ul} (Normal) Range: 0.83-4.51 [...] Range: 4.4-11.0 :26 Partial Thromboplast Time Comments: [facility] [address] [place], [address] PTT 28.1 s (Normal) Range: 24.1-36.2 :26 Prothrombin Time w/INR Comments: [facility] [address] [place], [address] INR 1.0 (Normal) PROTIME 12.7 s (Normal) Range: 11.7-14.9 :26 Troponin-I Comments: [facility] [address] [place], [place], [address] TROPONIN-I < 0.015 ng/mL (Normal) Comments: TROPONIN-I EXPECTED VALUES <0.045 Negative 0.045 - 0.590 Consistent with Cardiac Damage > OR = 0.600 Critical Value Not every elevated troponin is indicative of [place]. T hesevalues should be used with clinical judgement in examiningthe patient's clinical picture for diagnosis. To establisha diagnosis of [place] versus myocardial injury, there must be ademonstrated rise and/ or fall in the troponin values, inaddition to ischemic symptoms, EKG changes, new regionalwall motion abnormality, and/or angiographical evidence. PLEASE NOTE: REFERENCE RANGES EDITED 17:13 Bedside Glucose Comments: [facility] LaboratoryPoint of [address] [place], [place] [address] BEDSIDE GLU 101 mg/dL (Normal) Range: 70-110 Comments: MANAGEMENT OF PATIENT CARE PER NURSING PROTOCOL :16 LIPOPROTEIN, BLD, BY NMR Comments: PATIENT WAS FASTINGPERFORMED BY: [facility] [address] [id number] ([address]) LP-IR Score 81 (Abnormal) Comments: INSULIN RESISTANCE MARKER <--Insulin Sensitive Insulin Resistant--> Percentile in Reference PopulationInsulin Resistance ScoreLP-IR Score Low 25th 50th 75th High <27 27 45 63 >63LP-IR Score is inaccurate if patient is non-fasting. .The LP-IR score is a laboratory developed i [facility] that has beenassociated with insulin resistance and [...] were developed and their performance characteristicsdetermined by [employer]. These assays have not been cleared by [...] 1600 - 2000 Very High > 2000 52-Jci-686521:35 Basic Metabolic Profile (BMP) Comments: [facility] [address] [place], [place], [address] GAP 10 (Normal) Range: 5-15 CO2 30.0 [...] A.D.A. criteria.Please note revised GLUCOSE reference range iyxndbekg84/02/2018. 22-Fba-735485:35 CBC W/Diff, Automated Comments: [facility] [address] [place], [place], [id number] Absolute Lymph 2.44 {X10_3/ul} (Normal) Range: 0.83-4.51 [...] 4.2-5.4 WBC 7.3 K/mm3 (Normal) Range: 4.4-11.0 79-Dkr-346810:35 Troponin-I Comments: [facility] [address] [place], [address] TROPONIN-I < 0.015 ng/mL (Normal) Comments: TROPONIN-I EXPECTED VALUES <0.045 Negative 0.045 - 0.590 Consistent with Cardiac Damage > OR = 0.600 Critical Value Not every elevated troponin is indicative of [place]. T hesevalues should be used with clinical judgement in examiningthe patient's clinical picture for diagnosis. To establisha diagnosis of [place] versus myocardial injury, there must be ademonstrated rise and/ or fall in the troponin values, inaddition to ischemic symptoms, EKG changes, new regionalwall motion abnormality, and/or angiographical evidence. PLEASE NOTE: REFERENCE RANGES EDITED 11/01/1723-Sep-20178:28 Pathology Report Comments: PERFORMED BY: LUIS Momin Pis[place]ah Gufz9020 [facility] [id number] BY: [facility] Dermatopathology [address] [place] [address] [id number] 670Clinical Information: [id number] See MATER Comments: Material submitted: .RIGHT HAND BIOPSYClinical history: .BLACK SPOT ON HAND Note (Normal) Diagnosis:BLUE NEVUS./09/28/2017Electronically signed: .Mya Fay MD, DermatopathologistGross description: .RECEIVED IN FORMALIN LABELED DIANA ESCUDERO AND PALOMO HAND IS A PUGH SKIN PUNCH BIOPSY MEASURING 3.0 MM IN ANDREW METERAND 2.0 MM THICK WITH A OLIVAS, RAISED AREA 2.5 X 1.5 MM. SUBMITTEDIN TOTO.FUN/TMZPathologist provided ICD-10:D22.61CPT .308316 32-Uuj-76117:47 Platelet Count on Comments: PATIENT WAS FASTINGPERFORMED BY: PadMatcher LabKeep Me Certified[address] [place] [address] [id number] BY: [facility] Jprcxu0302 [facility] [id number] Citrated Bld Plt Count, Citrated Bld 160 {X10E3/uL} (Normal) Range: 150-379 :47 LIPOPROTEIN, BLD, BY NMR Comments: PATIENT WAS FASTINGPERFORMED BY: PadMatcher LabCVN NetworksItpxhimdwa[address] [id number] BY: [employer]70 [facility] [id number] Information: PLATELET ON CITRATE BLD [id number] (97655) LP-IR Score 85 (Abnormal) Comments: INSULIN RESISTANCE MARKER <--Insulin Sensitive Insulin Resistant--> Percentile in Reference PopulationInsulin Resistance ScoreLP-IR Score Low 25th 50th 75th High <27 27 45 63 >63LP-IR Score is inaccurate if patient is non-fasting. .The LP-IR score is a laboratory developed i [facility] that has beenassociated with insulin resistance and [...] were developed and their performance characteristicsdetermined by [employer]. These assays have not been cleared by [...] 1600 - 2000 Very High > 2000 97-Yuc-78680:43 Albumin/Creatinine Ratio,Urine Comments: PATIENT NOT FASTINGPERFORMED BY: LabCoMountainside HospitalCnynsr[address] [facility] [id number] Alb/Creat Ratio <1.4 {mg/g_creat} (Normal) Range: 0.0-30.0 Albumin, Urine <3.0 ug/mL (Normal) Creatinine, Urine 212.4 mg/dL (Normal) :43 CBC With Differential/Platelet Comments: PATIENT NOT FASTINGPERFORMED BY: LabCoMiners' Colfax Medical CenterXooiqb9608 [facility] [id number] Immature Grans (Abs) 0.0 {x10E3/uL} (Normal) Range: [...] 3.77-5.28 WBC 6.3 {x10E3/uL} (Normal) Range: 3.4-10.8 :43 Comp. Metabolic Panel (14) Comments: PATIENT NOT FASTINGPERFORMED BY: [facility]6370 [facility] [id number] ALT (SGPT) 18 [iU]/L (Normal) Range: 0-32 [...] Glucose, Serum 100 mg/dL (Abnormal) Range: 65-99 45-Xbw-33114:43 Urinalysis, Routine Comments: PATIENT NOT FASTINGPERFORMED BY: LabHavenwyck Hospital6370 [facility] [id number] Microscopic Examination MICNIP (Normal) Comments: Microscopic not indicated and not performed. Nitrite, Urine Negative (Normal) Urobilinogen,Semi-Qn 0.2 mg/dL (Normal) Range: 0.2-1.0 Bilirubin Negative (Normal) Occult Blood Negative (Normal) Ketones Negative (Normal) Glucose Negative (Normal) Protein Negative (Normal) WBC Esterase Negative (Normal) Appearance Clear (Normal) Urine-Color Yellow (Normal) pH 6.0 (Normal) Range: 5.0-7.5 Specific Irvona 1.025 (Normal) Range: 1.005-1.030 04-Kmx-052989:21 FLU A+B DIRECT AG, (RAPID) (97394) FLU A+B DIRECT AG, (RAPID) negative (Normal) :32 Potassium Serum (36980) Comments: PATIENT NOT FASTINGPERFORMED BY: [place] [address]70 [facility] [id number] BY: [address] [id number] Potassium, Serum 3.9 mmol/L (Normal) Range: 3.5-5.2 :32 Magnesium (56299) Comments: PATIENT NOT FASTINGPERFORMED BY: [facility]ook[address] [id number] BY: [address] [id number] Magnesium, Serum 2.0 mg/dL (Normal) Range: 1.6-2.3 :32 CCP ANTIBODY (07021) Comments: PATIENT NOT FASTINGPERFORMED BY: [facility]ook[address] [id number] BY: [address] [id number] CCP Antibodies IgG/IgA 10 {units} (Normal) Range: 0-19 Comments: Negative <20 Weak positive 20 - 39 Moderate positive 40 - 59 Strong positive >59 :32 TSH (16038) Comments: PATIENT NOT FASTINGPERFORMED BY: [place] [address] [facility] [id number] BY: [address] [id number] TSH 3.380 {uIU/mL} (Normal) Range: 0.450-4.500 :32 SED RATE ERYTHROCYTE Comments: PATIENT NOT FASTINGPERFORMED BY: [facility] HospitalSpice Online Retail[address] [id number] BY: [address] [id number] (63759) Sedimentation Rate-Westergren 14 mm/h (Normal) Range: 0-40 83-Csw-50709:32 C-REACTIVE PROTEIN (27869) Comments: PATIENT NOT FASTINGPERFORMED BY: LabCoMountainside HospitalZdfipw0603 [facility] [id number] BY: [address] [id number] C-Reactive Protein, Quant 3.5 mg/L (Normal) Range: 0.0-4.9 :32 JESUS ALBERTO (ANTINUCLEAR ANTIBODY) Comments: PATIENT NOT FASTINGPERFORMED BY: LabCoMountainside HospitalXjksmb9517 [facility] [id number] BY: Lab[address] [id number]; fu 3-30 (43772) JESUS ALBERTO Direct Negative (Normal) 73-Mjy-865688:37 Basic Metabolic Profile (BMP) Comments: 'TROP' Serial specimen #1, #2, #3, or #4: 1[facility] [address] [place], [address] GAP 8 (Normal) Range: 5-15 CO2 29.0 [...] <126 mg/dLsuggests IMPAIRED HOMEOSTASIS per A.D.A. criteria. :37 CBC W/Diff, Automated Comments: [facility] [address] [place], [address] Absolute Lymph 1.93 {X10_3/ul} (Normal) [...] 4.2-5.4 WBC 5.9 K/mm3 (Normal) Range: 4.4-11.0 :37 Troponin-I Comments: 'TROP' Serial specimen #1, #2, #3, or #4: 1[facility] [address]ervwk[address] [place], [place], [address] TROPONIN-I < 0.02 ng/mL (Normal) Comments: TROPONIN-I EXPECTED VALUES <0.05 NEGATIVE 0.06 - 0.59 AT RISK OF WY > OR = 0.60 SUGGEST WY :16 HEPATITIS C ANTIBODY (92679) Comments: CLient bill for this; PATIENT NOT FASTINGPERFORMED BY: [facility] Rcvznm7377 [facility] HospitalBrennaneric [place] [id number] Hep C Virus Ab <0.1 {s/co_ratio} (Normal) Range: 0.0-0.9 Comments: Negative: < 0.8 Indeterminate: 0.8 - 0.9 Positive: > 0.9 . The CDC recommends that a positive HCV antibody result be followed up with a HCV Nucleic Acid Amplification test (755109). :32 CBC W/Diff, Automated Comments: [facility] [address] [place], [place], [address] Absolute Lymph 2.31 {X10_3/ul} (Normal) Range: 0.83-4.51 [...] 1'CKMB' Serial Specimen #1, #2 or #3? [address] [place] [address] [address] [place], [place], [address] GAP 7 (Normal) Range: 5-15 CO2 28.0 [...] 7-18 GLU 92 mg/dL (Normal) Range: 70-110 97-Bnp-414264:08 CK-MB Quantitative and Index Comments: Serial Specimen #1, #2 or #3? 1'TROP' Serial specimen #1, #2, #3, or #4: 1'CKMB' Serial Specimen #1, #2 or #3? [address] [place] [address] [address] [place], [place], [address] CKRI 1.1 % (Normal) Range: 0.0-1.4 Comments: RELATIVE INDEX >1.5% IS PRESUMPTIVELY POSITIVE CPKMB 1.7 ng/mL (Normal) Range: 0.0-5.0 Comments: CK-MB and RI Interpretation MB Relative Index Non-AMI <or= 5 NA Indeterminate > 5 <or= 4 AMI > 5 > 4 CPK TOTAL 158 U/L (Normal) Range: 26-192 Comments: Moderate Hemolysis, Result may be falsely increased. 14-Cdq-519043:08 Troponin-I Comments: Serial Specimen #1, #2 or #3? 1'TROP' Serial specimen #1, #2, #3, or #4: 1'CKMB' Serial Specimen #1, #2 or #3? 1[facility] [address] [place], [place], [address] TROPONIN-I < 0.02 ng/mL (Normal) Comments: TROPONIN-I EXPECTED VALUES <0.05 NEGATIVE 0.06 - 0.59 AT RISK OF WY > OR = 0.60 SUGGEST WY :30 CBC (Auto) (51383) Comments: PATIENT WAS FASTINGPERFORMED BY: [employer] [facility] [id number] Platelets 165 {x10E3/uL} (Normal) Range: 150-379 RDW 13.8 % (Normal) Range: 12.3-15.4 MCHC 33.1 g/dL (Normal) Range: 31.5-35.7 MCH 31.2 pg (Normal) Range: 26.6-33.0 MCV 94 fL (Normal) Range: 79-97 Hematocrit 43.2 % (Normal) Range: 34.0-46.6 Hemoglobin 14.3 g/dL (Normal) Range: 11.1-15.9 RBC 4.59 {x10E6/uL} (Normal) Range: 3.77-5.28 WBC 6.6 {x10E3/uL} (Normal) Range: 3.4-10.8 :30 Metabolic Panel, Comments: PATIENT WAS FASTINGPERFORMED BY: CodigamesMountainside HospitalMbpbby7353 [facility] [id number] Information: [id number],X58669 Comprehensive (71970) ALT (SGPT) 14 [iU]/L (Normal) Range: 0-32 [...] Glucose, Serum 97 mg/dL (Normal) Range: 65-99 95-Jid-00470:30 Lipid Panel (06001) Comments: PATIENT WAS FASTINGPERFORMED BY: LabCoMountainside HospitalSyphao5932 [facility] [id number] LDL/HDL Ratio 3.6 {ratio_units} (Abnormal) Range: 0.0-3.2 [...] Cholesterol, Total 218 mg/dL (Abnormal) Range: 100-199 06-Bpe-43615:30 Hemoglobin Glyclated (HGB A1C) Comments: PATIENT WAS FASTINGPERFORMED BY: [facility] Gieftt0354 [facility] [id number]; apt. 4[address] (02184) Hemoglobin A1c 5.8 % (Abnormal) Range: 4.8-5.6 Comments: . Pre-diabetes: 5.7 - 6.4 Diabetes: >6.4 Glycemic control for adults with diabetes: <7.0 12-Rmb-057619:59 Urinalysis, Office (60796) UA - LEUKOCYTE ESTERASE Negative (Normal) UA - NITRITE Positive (Normal) URINE UROBILINGN FRANKO TIMED 2 mg/dL (Normal) UA - PROTEIN Negative mg/dL (Normal) UA - PH 5 (Abnormal) UA - BLOOD Negative (Normal) UA - SPECIFIC GRAVITY 1.020 (Normal) UA - KETONES Negative mg/dL (Normal) UA - BILIRUBIN Negative (Normal) UA - GLUCOSE Negative (Normal) 85-Aol-84892:00 Anticardiolip Ab, IgA/G/M, Comments: PATIENT WAS FASTINGPERFORMED BY: [facility] Gvhgvy3789 [facility] [id number] BY: [facility] AIF4720 [facility] [id number] Qn Anticardiolipin Ab,IgA,Qn <9 {APL_U/mL} (Normal) Range: [...] Positive: >20 - 80 High Positive: >80 25-Eun-177043:37 Basic Metabolic Profile (BMP) Comments: Serial Specimen #1, #2 or #3? 1'TROP' Serial specimen #1, #2, #3, or #4: 1Test performed at:[facility] [address] [place] [address] GAP 7 (Normal) Range: 5-15 CO2 26.0 [...] Comments: Please note revised CREATININE reference range kmcapasoh25/22/2015. BUN 16 mg/dL (Normal) Range: 7-18 GLU 134 mg/dL (Abnormal) Range: 70-110 Comments: Fasting Glucose result greater than or equal to 126 mg/dLsuggests DIABETES MELLITUS per A.D.A. criteria. 53-Oqn-651667:37 CBC W/Diff, Automated Comments: Test performed at:[facility] [address] [place] [address] Absolute Lymph 2.35 {X10_3/ul} (Normal) Range: 0.83-4.51 [...] 4.2-5.4 WBC 7.4 K/mm3 (Normal) Range: 4.4-11.0 83-Tgn-251611:37 CK-MB Quantitative and Index Comments: Serial Specimen #1, #2 or #3? 1'TROP' Serial specimen #1, #2, #3, or #4: 1Test performed at:[facility] [address] [place] [address] CPKMB 0.8 ng/mL (Normal) Range: 0.0-5.0 Comments: CK-MB and RI Interpretation MB Relative Index Non-AMI <or= 5 NA Indeterminate > 5 <or= 4 AMI > 5 > 4 CPK TOTAL 80 U/L (Normal) Range: 26-192 26-Xkq-633404:37 Troponin-I Comments: Serial Specimen #1, #2 or #3? 1'TROP' Serial specimen #1, #2, #3, or #4: 1Test performed at:[facility] Riinrcrsnk7009 [facility] [place] [address] TROPONIN-I < 0.02 ng/mL (Normal) Comments: TROPONIN-I EXPECTED VALUES <0.05 NEGATIVE 0.06 - 0.59 AT RISK OF WY > OR = 0.60 SUGGEST WY 25-Hfl-709957:59 D-Dimer (49272) Comments: PATIENT NOT FASTINGPERFORMED BY: LabDebra V[place] [address] [facility] [id number] BY: GamookMountainside HospitalObrgdg2354 [facility] [id number] D-Dimer 0.59 {mg/L_FEU} (Abnormal) Range: 0.00-0.49 Comments: In conjunction with a non-high clinical probability assessment, anormal (<0.50 mg/L FEU) result excludes deep vein thrombosis (DVT)and pulmonary embolism (PE) with high sensitivity. 74-Oxt-74001:00 LIPID PANEL (72709) Comments: PATIENT WAS FASTINGPERFORMED BY: GamookMountainside HospitalDhxkvu7483 [facility] [id number] BY: [place] LGV7333 [facility] [id number] LDL/HDL Ratio 3.1 {ratio_units} (Normal) Range: 0.0-3.2 [...] Cholesterol, Total 177 mg/dL (Normal) Range: 100-199 42-Zne-830466:59 Protein S Profile Comments: PATIENT NOT FASTINGPERFORMED BY: [employer]ook[address] [id number] BY: GamookMountainside HospitalWfpwec8070 [facility] [id number] Inf ormation: [id number] (13025) Protein S-Functional 119 % (Normal) Range: 60-145 Protein S, Free 108 % (Normal) Range: 56-124 Protein S, Total 137 % (Normal) Range: 58-150 83-Vkx-030074:59 Protein C Profile Comments: PATIENT NOT FASTINGPERFORMED BY: ProspX[address] [id number] BY: ProspXHavenwyck Hospital6370 [facility] [id number] (34763) Protein C-Functional 120 % (Normal) Range: 74-151 Protein C Antigen 104 % (Normal) Range: 70-140 00-Vab-50257:00 Homocysteine, Plasma Comments: PATIENT WAS FASTINGPERFORMED BY: LabSpice Online RetailAlison V[place] 6702570 [facility] [id number] BY: [place] TEG2370 [facility] [id number] (34630) Homocyst(e)ine, Plasma 11.2 umol/L (Normal) Range: 0.0-15.0 28-Vpx-612629:59 ANTITHROMBIN III ACTIVTY Comments: PATIENT NOT FASTINGPERFORMED BY: [address] [id number] BY: [place] 6702570 [facility] [id number] (43849) Antithrombin Antigen 94 % (Normal) Range: 75-130 Antithrombin Activity 108 % (Normal) Range: 75-135 97-Gvw-954537:59 CLOTTING FACTOR II Comments: PATIENT NOT FASTINGPERFORMED BY: [address] [id number] BY: LabHavenwyck Hospital6370 [facility] [id number] (22699) Factor II Activity 113 % (Normal) Range: 75-130 34-Din-74230:00 Factor V Leiden (00621) Comments: PATIENT WAS FASTINGPERFORMED BY: [employer] Haxclm3481 [facility] [id number] BY: [place] ONY7854 [facility] [id number] Factor V Leiden FVNEG3 (Normal) Comments: Result: [...] in the workup for venous thrombosis include [id number] mutation in the factor II (prothrombin) gene,protein S and C deficiency, and antithromb in deficiencies.Anticardiolipin antibody and lupus anticoagulant analysismay be appropriate for certain patients, as well ashomocysteine levels. .Contact your local [facility] for information on how to orderadditional testing if desired. .Genetic counselors are available for health care* providers to discuss results at [phone] ([phone]). .Methodology:DNA analysis of the Factor V gene was performed by allele-specific PCR followed by gel electrophoresis. The diagnosticsensitivity and specificity is >99% for both. Molecular-based testing is highly accurate, but as in any laboratorytest, diagnostic errors may occur. All test results must becombined with clinical information for the most accurateinterpretation. .References:Sly Montez (1996). Clin Lab Med 16: 169-186. .Dora Carrera, PhDOlimpia Wilson, PhDAspen Orta, PhDShiela Chavez, PhDTara Jhaveri, PhDNgozi Cardozo, PhD . 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 Compound heterozygosity for the Z620Ynwh Z1334V variants is unlikely to be of clinical [...] discuss these results with healthcare providers at [phone]. .Methylenetetrahydrofolate reductase (MTHFR) is a ke y enzyme in thefolate pathway and is responsible for the metabolism of homocysteine.There are two common variants in the MTHFR gene, c.655C>T(p.Ybq519Gxe), referred to as C677T, and c.1286A>C (p.G zv946Pcb),referred to as O9776M. Individuals homozygous for C677T (two copiesof the variant), have decreased activity of the MTHFR enzyme and apredisposition to hyperhomocysteinemia, particularly when d eficient infolate. Hyperhomocysteinemia is a risk factor for venous thrombosisand coronary artery disease and is associated with an increased riskof open neural tube defects. The C677T variant reilly s notindependently increase risk of these conditions in the absence ofhyperhomocysteinemia. The D8981O variant is not associated withelevated homocysteine levels unless a C677T variant is also present;h owever, the clinical significance of heterozygosity for both G821Snxa O5742F is controversial. Population data suggest that these twovariants are not present on the same chromosome, but rare exceptionsh ave been reported of triple variant MTHFR genotypes (ie. homozygousfor one variant and heterozygous for the other). Homozygosity uhwZ453V has an estimated frequency of 10% to [...] with clinical information for the most accurateinterpretation. .Lucyo LD, Ki g Q. Am J Epidemiol 2000; 151(9):862-877.Nilsa MM, Lady JA. Arch Pathol Lab Med 2007; 131(6):872-884.Frosst P et al. Felisa Giana 1995; 10(1):111- 113.Hickey SE et al. Giana Med 2013; 15(2):153-156.Juhi riley C et al. Obstet Gynecol 2011; 118(3):730-740.Jakob B et al. Eur J Epidemiol 2013; 28(8):621-647. .Dora Carrera, PhDSteffen Wilson, PhDAspen Orta, PhDShiela Chavez, MS, PhDTara Jhaveri, PhDHomauricio Cardozo, PhD :52 HgA1C , Office (72318) HgA1C , Office 5.8 % (Normal) Range: 4.6 - 7.1 :31 CBC With Differential/Platelet Comments: PATIENT WAS FASTINGPERFORMED BY: [facility]6370 [facility] [id number] Information: [id number] Immature Grans (Abs) 0.0 {x10E3/uL} (Normal) Range: [...] 3.77-5.28 WBC 5.3 {x10E3/uL} (Normal) Range: 3.4-10.8 15-Nbi-93878:31 Comp. Metabolic Panel (14) Comments: PATIENT WAS FASTINGPERFORMED BY: [facility] Lgrwdz2667 [facility] [id number] ALT (SGPT) 18 [iU]/L (Normal) Range: 0-32 [...] Glucose, Serum 103 mg/dL (Abnormal) Range: 65-99 82-Cmx-602087:04 Urinalysis, Office (19621) UA - PH 6.0 (Normal) UA - LEUKOCYTE ESTERASE Negative (Normal) UA - NITRITE Negative (Normal) URINE UROBILINGN FRANKO TIMED 2 mg/dL (Normal) UA - PROTEIN Negative mg/dL (Normal) UA - BLOOD Negative (Normal) UA - SPECIFIC GRAVITY 1.025 (Normal) UA - KETONES Negative mg/dL (Normal) UA - BILIRUBIN Negative (Normal) UA - GLUCOSE Negative (Normal) 22-Asa-16543:51 POTASSIUM SERUM (50276) Comments: today; PATIENT NOT FASTINGPERFORMED BY: [facility] Lfsrae8587 [facility] [id number] Information: [id number] Potassium, Serum 3.8 mmol/L (Normal) Range: 3.5-5.2 0-Pci-167056:30 Basic Metabolic Profile (BMP) Comments: 'TROP' Serial specimen #1, #2, #3, or #4: 1'CKMB' Serial Specimen #1, #2 or #3? 1Test performed at:[facility] [address] [place], [place] [id number] GAP 3 (Abnormal) Range: 5-15 CO2 34.0 [...] 7-18 GLU 89 mg/dL (Normal) Range: 70-110 :30 CBC W/Diff, Automated Comments: Test performed at:[facility] [address] [place], [place] [address] Absolute Lymph 2.01 {X10_3/ul} (Normal) Range: 0.83-4.51 [...] 4.2-5.4 WBC 6.0 K/mm3 (Normal) Range: 4.4-11.0 6-Sqp-772691:30 CK-MB Quantitative and Index Comments: 'TROP' Serial specimen #1, #2, #3, or #4: 1'CKMB' Serial Specimen #1, #2 or #3? 1Test performed at:[facility] [address] [place] [address] CPKMB 0.8 ng/mL (Normal) Range: 0.0-5.0 Comments: CK-MB and RI Interpretation MB Relative Index Non-AMI <or= 5 NA Indeterminate > 5 <or= 4 AMI > 5 > 4 CPK TOTAL 64 U/L (Normal) Range: 26-192 :30 D-Dimer Quantitative (DVT/PE) Comments: Test performed at:[facility] [address] [place] [address] D-DIMER QUANT 1.86 {FEU/ug/m} (Abnormal) Range: 0.27-0.49 Comments: D-Dimer ELEVATED (>0.49): Additional studies and clinicalassessments are indicated to conclude diagnosis of:Deep Vein Thrombosis (DVT) or Pulmonary Embolism (PE)CRITICAL VALUE REPEATED AND VERIFIED. CALLED TO SHRAVAN.RN07/23/14 1104 Ricci Delgado.RESULTS READ BACK BY SAME. 8-Wgs-702840:30 Troponin-I Comments: 'TROP' Serial specimen #1, #2, #3, or #4: 1'CKMB' Serial Specimen #1, #2 or #3? 1Test performed at:[facility] [address] [place] [address] TROPONIN-I < 0.02 ng/mL (Normal) Comments: TROPONIN-I EXPECTED VALUES <0.05 NEGATIVE 0.06 - 0.59 AT RISK OF [place] > OR = 0.60 SUGGEST [place] :18 HgA1C , Office (20021) HgA1C , Office 5.7 % (Normal) Range: 4.6 - 7.1 :18 Blood Glucose , Office (94076) Blood Glucose , Office 106 (Normal) 42-Ihd-559417:20 CBCD ALC 2.30 {X10_3/ul} (Normal) Range: 0.83-4.51 [...] 4.2-5.4 WBC 5.5 K/mm3 (Normal) Range: 4.4-11.0 55-Wno-678620:20 MRSA+SAID SCRN See Note (Normal) Comments: S. AUREUS S. aureus NegativeMRSA MRSA Negative 28-Mwh-815701:20 UA Comments: ORDER URINE CULTUREIF POSITIVE NITRITE and [...] Yellow (Normal) :54 Blood Glucose , Office (03537) Blood Glucose , Office 123 (Normal) Comments: Not Fasting :54 HgA1C , Office (50360) HgA1C , Office 6.0 % (Normal) Range: 4.6 - 7.1 :31 POTASSIUM SERUM (73194) Comments: patient having drawn in 2 wks; PATIENT NOT FASTINGPERFORMED BY: [employer]70 [facility] [id number] Information: [id number] Potassium, Serum 4.0 mmol/L (Normal) Range: 3.5-5.2 :20 Microscopic Examination Comments: PATIENT WAS FASTINGPERFORMED BY: [employer] Zglyyv6945 [facility] [id number] Bacteria Few (Normal) Mucus Threads Present (Normal) Epithelial Cells (non renal) >10 {/hpf} (Abnormal) Range: 0 - 10 RBC 3-10 {/hpf} (Abnormal) Range: 0 - 2 WBC 11-30 {/hpf} (Abnormal) Range: 0 - 5 2-Aye-569494:30 CBCD ALC 2.09 {X10_3/ul} (Normal) Range: 0.83-4.51 [...] 4.2-5.4 WBC 6.5 K/mm3 (Normal) Range: 4.4-11.0 :30 CRE GFRAA 73 mL/min (Normal) CREAT 1.0 mg/dL (Normal) Range: 0.6-1.0 GFR 60 mL/min (Normal) :30 PT INR 0.9 (Normal) PTP 11.6 s (Abnormal) Range: 11.9-14.4 :30 PTT 27.1 s (Normal) Range: 24.1-36.2 1-Gpo-347998:30 TSPAT Comments: Surgery Date: 01/04/14Hx of Preganancy in last 3 Months NoEver experience any problems with transfusion(s)? NHx of Transfusion in last 3 Months NReason for Type & Screen/Red Cells: SURGERYTime: 0600Other - use comments: UNKNOWNSURGICAL PROCEDURE: OTHER SC2 NEGATIVE (Normal) SC3 NEGATIVE (Normal) SC1 NEGATIVE (Normal) ABS NEGATIVE (Normal) BT A POSITIVE (Normal) :20 URINALYSIS, W/ MICRO (80965) Comments: PATIENT WAS FASTINGPERFORMED BY: [facility]CoMount[facility]ide HospitalFkrxmw3967 [facility] [id number] Microscopic Examination See below: (Normal) Comments: Microscopic was indicated and was performed. Nitrite, Urine Negative (Normal) Urobilinogen,Semi-Qn 1.0 mg/dL (Normal) Range: 0.0-1.9 Bilirubin Negative (Normal) Occult Blood Negative (Normal) Ketones Negative (Normal) Glucose Negative (Normal) Protein Trace (Normal) WBC Esterase 2+ (Abnormal) Appearance Clear (Normal) Urine-Color Yellow (Normal) pH 6.5 (Normal) Range: 5.0-7.5 Specific Irvona 1.023 (Normal) Range: 1.005-1.030 03-Zzy-43611:20 METABOLIC PANEL, COMPREHENSIVE Comments: PATIENT WAS FASTINGPERFORMED BY: [facility]Co[facility] HospitalHsjocx4401 [facility] [id number] (32840) ALT (SGPT) 20 [iU]/L (Normal) Range: 0-32 [...] Glucose, Serum 106 mg/dL (Abnormal) Range: 65-99 :20 LIPID PANEL (17103) Comments: PATIENT WAS FASTINGPERFORMED BY: [facility]ookMountainside HospitalFjbjlj3703 [facility] [id number] LDL/HDL Ratio 3.8 {ratio_units} (Abnormal) Range: 0.0-3.2 [...] MANUAL DIFF Comments: PATIENT WAS FASTINGPERFORMED BY: [employer] Ukxgma3739 [facility] [id number] Information: [id number] (61234) Immature Grans (Abs) 0.0 {x10E3/uL} (Normal) Range: [...] (Normal) Range: 3.4-10.8 :09 HgA1C , Office (34716) HgA1C , Office 5.8 % (Normal) Range: 4.6 - 7.1 :09 Blood Glucose , Office (40420) Blood Glucose , Office 129 (Normal) Comments: [...] (Normal) Range: 70-110 :17 HgA1C , Office (75104) HgA1C , Office 5.9 % (Normal) Range: 4.6 - 7.1 :17 Blood Glucose , Office (15877) Blood Glucose , Office 107 (Normal) :15 PROL 10.4 ng/mL (Normal) Comments: NORMAL REFERENCE RANGESFEMALENON- 2.2 - 30.3 ng/mL 8.1 - 347.6 ng/mLPOST- MENOPAUSAL 0.7 - 31.5 ng/mLMALE 2.5 - 17.4 ng/mLNEW TEST METHO D & REFERENCE RANGES NOVEMBER 09, 2011; ADDENDA: has f/u on 06/08/13, will review then :28 BILAT SCRN DIGITAL & CAD Radiology Report [...] be sent to the patient by the fac ility within 30 days. Approximately 10% of breast cancers are not detected by mammography. Anormal mammogram should not delay biopsy of a clinically suspiciousabnormality. Signed:Payton DuttaMarch 15, 2013 at 7:58:55 AM [id number] Signed GP/GP If you are the referring physician and would like to consult with theradiologist who provided this interpretation, please co ntact Unique Yusuf at [phone]. If this radiologist is unavailable, youwill be directed to another radiologist to assist. If you are a patient with a question regarding this report, pleas econtactyour referring physician directly. Professional Interpretation Provided By: [employer], Phone , These documents contain legally protected [...] 03/15/13 0837 Sign by: Aaron Salgado MD 52-Ydk-01965:25 Blood Glucose , Office (00904) Blood Glucose , Office 134 (Normal) 09-Ywb-11277:25 HgA1C , Office (59000) HgA1C , Office 5.8 % (Normal) Range: 4.6 - 7.1 0-Mte-204731:22 PELVIC (NON ) Radiology Report See Note [...] Salgado M.D.January 23, 2013 at 2:31:38 PM [id number] Signed GP/GP If you are the referring physician and would like to consult with theradiologist who provided this interpretati on, please contact Unique Yusuf at [phone]. If this radiologist is unavailable, youwill be directed to another radiologist to assist. If you are a patient with a question regarding this report, pleasecontactyour referring physician directly. Professional Interpretation Provided By: [employer], Phone , These documents contain legally protected [...] destructionofthese documents. Dictated on 01/23/13 1431 by Gali Salgado MDranscribed on 01/24/13 1058 by ITS IMPORTSign by Aaron Salgado MD on 01/24/13 1059 Sign by: Aaron Salgado MD 23-Jan-20138:56 ABDOMEN COMPLETE Radiology Report See Note Comments: [...] size of the right kidney. The right fakamotkaxdmgv68.4 cm. Ambika l renal cortex. The right cortex measures 1.0 cm. Thereisa 1.1 cm x 1.0 cm x 0.9 cm cyst in the inferior pole. There is no righthydronephrosis. Left Kidney: Normal size of the left kidney. The left kidney evikaixj91.5cm. Normal renal cortex. The left cortex measures 1.9 cm. There is nodemonstrated renal mass or cyst. There is no left hydronephrosis. Aorta: Unremarkable. I.V.C.: The IVC is pa tent. There is no ascites. IMPRESSION:Fatty infiltration of the liver. The patient is status postcholecystectomy. Signed:Aaron Salgado M.D.January 23, 2013 at 2:2 8:11 PM [id number] Signed GP/GP If you are the referring physician and would like to consult with theradiologist who provided this interpretation, please contact Payton Yusuf at [phone]. If this radiologist is unavailable, youwill be directed to another radiologist to assist. If you are a patient with a question regarding this report, pleasecontactyour referring phys ician directly. Professional Interpretation Provided By: [employer], Phone , These documents contain legally protected [...] Dictated on 01/23/13 1428 by Solomon Salgado MDribed on 01/24/13 1040 by ITS IMPORTSign by [...] at the time of theexam. IMPRESSION:Fibroid uterus. Signed:Jyo Salgado M.D.January 23, 2013 at 2:31:38 PM [id number] Signed GP/GP If you are the referring physician and would like to consult with theradiologist who provided this interpretati on, please contact Unique Yusuf at [phone]. If this radiologist is unavailable, youwill be [...] documents. Dictated on 01/23/13 1431 by Damian FLYNN,Galiranscribed on 01/24/13 1042 by ITS IMPORTSign by Aaron Salgado MD on 01/24/13 1043 Sign by: Aaron Salgado MD 17-Wzn-941149:11 CBC, Platelets & Auto Comments: PATIENT NOT FASTINGPERFORMED BY: [facility]CoMountainside HospitalBjuevi2489 [facility] [id number] Information: [id number] Diff (89836) Immature Grans (Abs) 0.0 {x10E3/uL} (Normal) Range: [...] 7-18 GLU 99 mg/dL (Normal) Range: 70-110 03-Dux-677463:33 HgA1C , Office (84816) HgA1C , Office 5.8 % (Normal) Range: 4.6 - 7.1 :53 METABOLIC PANEL, COMPREHENSIVE Comments: PATIENT WAS FASTINGPERFORMED BY: [facility]ook[facility]ide HospitalLdiowy1444 [facility] [id number] (00930) ALT (SGPT) 19 [iU]/L (Normal) Range: 0-32 [...] Glucose, Serum 88 mg/dL (Normal) Range: 65-99 :53 CBC WITH MANUAL DIFF Comments: PATIENT WAS FASTINGPERFORMED BY: [facility]ook[facility]ide HospitalRzekch9272 [facility] [id number] Information: [id number] (04531) Immature Grans (Abs) 0.0 {x10E3/uL} (Normal) Range: [...] 3.77-5.28 WBC 7.5 {x10E3/uL} (Normal) Range: 4.0-10.5 83-Kpm-589957:53 LIPID PANEL (70581) Comments: PATIENT WAS FASTINGPERFORMED BY: [facility]Co[facility] HospitalMprmlk0298 [facility] [id number] LDL/HDL Ratio 3.3 {ratio_units} (Abnormal) Range: 0.0-3.2 LDL Cholesterol Calc 136 mg/dL (Abnormal) Range: 0-99 HDL Cholesterol 41 mg/dL (Normal) Comments: According to ATP-III Guidelines, HDL-C >59 mg/dL is considered anegative risk factor for CHD. VLDL Cholesterol José Luis 45 mg/dL (Abnormal) Range: 5-40 Triglycerides 226 mg/dL (Abnormal) Range: 0-149 Cholesterol, Total 222 mg/dL (Abnormal) Range: 100-199 19-Bks-10318:51 BILAT SCRN DIGITAL & CAD Radiology Report [...] Salgado M.D.January 18, 2012 at 10:04:04 AM [id number] Signed GP/GP If you are the referring physician and would like to consult with theradiologist who pro vided this interpretation, please contact Unique Yusuf at [phone]. If this radiologist is unavailable, youwill be directed to another radiologist to assist. If you are a patient with a q uestion regarding this report, pleasecontactyour referring physician directly. Professional Interpretation Provided By: [employer], Phone , Dictated on 01/18/12 7281 by Damian FLYNN,Lunaribed on 01/18/12 1010 by ITS IMPORTSign by Aaron Salgado MD on 01/18/12 1011 Sign by: David Salgado MDriele 8-Ahu-690970:43 MICROALBUMIN: CREATININE RATIO Comments: PATIENT WAS FASTINGPERFORMED BY: [employer]ates6370 [facility] [id number] (91813) AND (57873) Microalb/Creat Ratio 1.4 {mg/g_creat} (Normal) Range: 0.0-30.0 Microalbumin, Urine 2.3 ug/mL (Normal) Range: 0.0-17.0 Creatinine, Urine 167.9 mg/dL (Normal) Range: 15.0-278.0 :43 METABOLIC PANEL, COMPREHENSIVE Comments: PATIENT WAS FASTINGPERFORMED BY: iRates6370 [facility] [id number] (65530) ALT (SGPT) 24 [iU]/L (Normal) Range: 0-40 [...] Glucose, Serum 95 mg/dL (Normal) Range: 65-99 :43 LIPID PANEL (43660) Comments: PATIENT WAS FASTINGPERFORMED BY: [facility]ook[facility] HospitalXvexar8782 [facility] [id number] LDL/HDL Ratio 3.2 {ratio_units} (Normal) Range: 0.0-3.2 LDL Cholesterol Calc 115 mg/dL (Abnormal) Range: 0-99 VLDL Cholesterol José Luis 29 mg/dL (Normal) Range: 5-40 HDL Cholesterol 36 mg/dL (Abnormal) Comments: According to ATP-III Guidelines, HDL-C >59 mg/dL is considered anegative risk factor for CHD. Triglycerides 146 mg/dL (Normal) Range: 0-149 Cholesterol, Total 180 mg/dL (Normal) Range: 100-199 :43 CBC WITH MANUAL DIFF Comments: PATIENT WAS FASTINGPERFORMED BY: [facility]ide HospitalMytodx7126 [facility] [id number] Information: [id number] (20566) Immature Grans (Abs) 0.0 {x10E3/uL} (Normal) Range: [...] population. WBC 5.9 {x10E3/uL} (Normal) Range: 4.0-10.5 45-Srn-681307:18 HgA1C , Office (62564) HgA1C , Office 6.1 % (Normal) Range: 4.6 - 7.1 45-Cax-272971:18 Blood Glucose , Office (71826) Blood Glucose , Office 125 (Normal) 52-Sng-971947:00 Thin prep Pap Comments: Source.............Cervical;EndocervicalNo. of containers..01 CYTYC Thin Prep VialPATIENT NOT FASTINGPERFORMED BY: [facility] [address] [id number] Information: [id number] (97195) Note: PAPSMR (Normal) Comments: The Pap smear [...] component) are present.V72.31 ; Routine gynecolog ical examsaeed Batres [employer]man (ASCP) 86-Buc-48726:00 BILAT SCRN DIGITAL & CAD Radiology Report [...] biopsy of a clinically suspiciousabnormality. Dictated on 11/03/10607 by Gali Salgado MDranscribed on 11/04/10618 by ITS IMPORTSign by Aaron Salgado MD on 11/04/10619 Sign by: __ Aaron Salgado MD 8-Yiu-513487:24 CBC & PLATELETS (AUTO) Comments: PATIENT NOT FASTINGPERFORMED BY: [facility] Ophwsl8866 Katherine Cam[place] [id number] Information: [id number]; appt 11/28/10 (05652) MCH 31.6 pg (Normal) Range: 27.0-34.0 MCHC [...] 45 63 >63Performed at: S7 - [facility] [address] [place], [place] [address]Sw[address] Director: Stefano Mace PhD, Phone: [phone] HDL SIZE <TEST NOT PERFORMED> (Normal) INSULIN [...] TOT 209 mg/dL (Abnormal) LIPIDS . (Normal) 4-Ilr-263058:12 CULT, DP WOUND Comments: COMMENTS: CULTURE, SENSITIVITY,AREOBES, [...] STRIMETHOPRIM/SULFAMETHOXAZ $ <=10 SVANCOMYCIN $ 1 S 3-Trh-127591:10 CBC Comments: COMMENTS: AC ROOM 6 HCT [...] 11.6-14.6 WBC 7.6 K/mm3 (Normal) Range: 4.4-11.0 :40 CULTURE, NOSE GRAM STAIN See Note (Normal) [...] 1 S :56 Blood Glucose , Office (02420) Blood Glucose , Office 102 (Normal) :56 HgA1C , Office (98388) HgA1C , Office 6.1 % (Normal) Range: 4.6 - 7.1 :49 MICROALBUMIN: CREATININE Comments: PATIENT WAS FASTINGPERFORMED BY: [employer]e [employer] Odl7732 [place] [facility] [id number] BY: LabCoMountainside HospitalFzjvco0183 [facility] [id number] RATIO (20230) AND (16606) Microalb/Creat Ratio 2.3 {mg/g_creat} (Normal) Range: 0.0-30.0 Microalbumin, Urine 3.4 ug/mL (Normal) Range: 0.0-17.0 Creatinine, Urine 150.2 mg/dL (Normal) Range: 15.0-278.0 77-Rqh-38840:49 LIPOPROTEIN, BLD, BY NMR Comments: PATIENT WAS FASTINGPERFORMED BY: Fede [employer] Rqa0144 [facility] [id number] BY: JERMAINE LabCoMountainside HospitalZbtswv0044 [facility] [id number] Information: ADD [id number] AND DRAW FEE 99 9236 (56524) LP-IR 83 Comments: The LP-IR Score combines [...] high > 189. (Abnormal) Choleste 220 mg/dL rol, (Abnormal) Total 78-Nrj-27331:49 METABOLIC PANEL, Comments: PATIENT WAS FASTINGPERFORMED BY: Fede [employer] Hef4042 [facility] HealthRaleiUpper [facility] [id number] BY: JERMAINE LabCoMountainside HospitalUcayrx8962 [facility] [id number] COMPREHENSIVE (95691) ALT (SGPT) 22 [iU]/L (Normal) Range: 0-40 [...] Glucose, Serum 107 mg/dL (Abnormal) Range: 65-99 :49 LIPID PANEL (52270) Comments: PATIENT WAS FASTINGPERFORMED BY: S7 [facility] [address] [place] [address] [id number] BY: [employer] Stfisq6544 [facility] [id number] LDL Cholesterol Calc 135 mg/dL (Abnormal) Range: 0-99 LDL/HDL Ratio 4.1 {ratio_units} (Abnormal) Range: 0.0-3.2 VLDL Cholesterol José Luis 52 mg/dL (Abnormal) Range: 5-40 HDL Cholesterol 33 mg/dL (Abnormal) Comments: According to ATP-III Guidelines, HDL-C >59 mg/dL is considered anegative risk factor for CHD. Triglycerides 261 mg/dL (Abnormal) Range: 0-149 Cholesterol, Total 220 mg/dL (Abnormal) Range: 100-199 :49 CBC WITH MANUAL DIFF Comments: PATIENT WAS FASTINGPERFORMED BY: S7 [employer] [address] [place] [address] [id number] BY: [employer] Iuatwr4566 [facility] [id number] (51007) Baso (Absolute) 0.1 {x10E3/uL} (Normal) Range: 0.0-0.2 [...] 3.80-5.10 WBC 6.7 {x10E3/uL} (Normal) Range: 4.0-10.5 5-Ajw-809221:35 MARYJANE CULTURE-OTHER (98358) Comments: PATIENT NOT FASTINGPERFORMED BY: [employer] Xuubcm5168 [facility] [id number] Information: SRC:THRT [id number] Result 1 RRF (Normal) Comments: Routine respiratory bin Upper Respiratory Culture Final report (Normal) 23-Jul-20098:07 Rapid Strep Test, Office (60654) Rapid Strep Test, Negative (Normal) Office 27-Feb-20098:2 Potassium, Serum 3.8 mmol/L (Normal) Comments: PATIENT WAS FASTINGPERFORMED BY: [employer]6370 [facility] [id number] Range: 3.5-5.2 67-Mgw-231779:00 BILAT SCRN DIGITAL & CAD Radiology Report See Note (Normal) Comments: Exam Number: [id number] MAMMOGRAM, BILATERAL SCREENING DIGITAL AND CAD HISTORYRoutine [...] werealso examined with computer-aided detection s oftware (Surphace.). Reported By: KENNA SWEET M.D. 27-Feb-20098:24 Lipid Panel (46272) Comments: PATIENT WAS FASTINGClinical Information: ADD [id number], [id number] PERFORMED BY: [facility]ide HospitalGyhpkw4972 [facility] [id number] Cholesterol, Total 224 mg/dL (Abnormal) Range: 100-199 HDL Cholesterol 31 mg/dL (Abnormal) Comments: According to ATP-III Guidelines, HDL-C >59 mg/dL is considered anegative risk factor for CHD. LDL Cholesterol Calc 122 mg/dL (Abnormal) Range: 0-99 LDL/HDL Ratio 3.9 {ratio_units} (Abnormal) Range: 0.0-3.2 Triglycerides 354 mg/dL (Abnormal) Range: 0-149 VLDL Cholesterol José Luis 71 mg/dL (Abnormal) Range: 5-40 85-Ula-379996:16 JESUS ALBERTO (ANTINUCLEAR ANTIBODY) Comments: PATIENT NOT FASTINGPERFORMED BY: [place] [employer] [facility] [id number] (58486) Antinuclear Antibodies Direct Negative (Normal) 03-Ugs-816844:16 C-REACTIVE PROTEIN (04901) Comments: PATIENT NOT FASTINGPERFORMED BY: [employer] Vxmcby7336 [facility] [id number] C-Reactive Protein, Quant 8.0 mg/L (Abnormal) Range: 0.0-4.9 98-Qwl-953701:16 CBC (AUTO) (21307) Comments: PATIENT NOT FASTINGPERFORMED BY: [employer] Mpfvqe7693 [facility] [id number] Hematocrit 42.4 % (Normal) Range: 34.0-44.0 Hemoglobin 14.4 g/dL (Normal) Range: 11.5-15.0 MCH 31.9 pg (Normal) Range: 27.0-34.0 MCHC 34.0 g/dL (Normal) Range: 32.0-36.0 MCV 94 fL (Normal) Range: 80-98 Platelets 160 {x10E3/uL} (Normal) Range: 140-415 RBC 4.52 {x10E6/uL} (Normal) Range: 3.80-5.10 RDW 14.1 % (Normal) Range: 11.7-15.0 WBC 7.6 {x10E3/uL} (Normal) Range: 4.0-10.5 :16 Folate ([id number]) Comments: PATIENT NOT FASTINGPERFORMED BY: ProspXRobert [place] [id number] [facility] [id number] Folate (Folic Acid), Serum 17.4 ng/mL (Normal) Comments: Indeterminate: 3.4 - 5.4 Deficient: <3.4 :16 METABOLIC PANEL, COMPREHENSIVE Comments: PATIENT NOT FASTINGPERFORMED BY: GamookAlison [place] [id number] [facility] [id number] ([id number]) A/G Ratio 1.2 (Normal) Range: 1.1-2.5 Albumin, [...] Sodium, Serum 142 mmol/L (Normal) Range: 135-145 86-Mkw-206024:16 RHEUMATOID FACTOR-QUANT ([id number]) Comments: PATIENT NOT FASTINGPERFORMED BY: [employer]70 Penemarie K [facility]Dor[facility] [id number] RA Latex Turbid. 9.3 {IU/mL} (Normal) Range: 0.0-13.9 32-Ueo-737203:16 SED RATE ERYTHROCYTE ([id number]) Comments: PATIENT NOT FASTINGPERFORMED BY: [email or web address] [facility] [place] [id number] Sedimentation Rate-Westergren 21 mm/h (Normal) Range: 0-30 50-Sqg-315143:16 TSH (10776) Comments: PATIENT NOT FASTINGPERFORMED BY: [place] [email or web address] Murphy [place] [facility] SystemsC[facility]in [place] [id number] TSH 2.690 {uIU/mL} (Normal) Range: 0.450-4.500 93-Wjj-974046:16 VITAMIN B-12 (CYANOCOBALAMIN) Comments: PATIENT NOT FASTINGPERFORMED BY: [employer] [id number] Murphy [facility] [place] [id number] ([id number]) Vitamin B12 348 pg/mL (Normal) Range: 211-911 23-Jan-20099:35 Lipid Panel (73815) Comments: PATIENT WAS FASTINGClinical Information: ADD [id number], [id number] PERFORMED BY: [email or web address] Murphy [facility] SystemsDor[facility] [id number] Cholesterol, Total 208 mg/dL (Abnormal) Range: 100-199 HDL Cholesterol 32 mg/dL (Abnormal) Comments: According to ATP-III Guidelines, HDL-C >59 mg/dL is considered anegative risk factor for CHD. LDL Cholesterol Calc 124 mg/dL (Abnormal) Range: 0-99 LDL/HDL Ratio 3.9 {ratio_units} (Abnormal) Range: 0.0-3.2 Triglycerides 261 mg/dL (Abnormal) Range: 0-149 VLDL Cholesterol José Luis 52 mg/dL (Abnormal) Range: 5-40 :47 HgA1C , Office (89278) HgA1C , Office 5.8 % (Normal) Range: 4.6 - 7.1 :47 Blood Glucose , Office (03950) Blood Glucose , Office 128 (Normal) :43 Urinalysis, Office (62228) UA - LEUKOCYTE ESTERASE Trace (Normal) UA [...] - Female Indication: Acute sinusitis Planned Observations LIPID PANEL (62779)Indication: Mixed hyperlipidemia On: 6-Wdl-325566:45 Request Platelet 84963 (citrate, nonclumping tube)Indication: Thrombocytopenia, unspecified On: 22-Jul-20178:19 Request Metabolic Panel, Comprehensive (23865)Indication: Benign essential hypertension On: 32-Fhb-908891:46 Request MICROALBUMIN: CREATININE RATIO (49101) AND (66376)Indication: Benign essential hypertension On: 86-Yqq-938730:45 Request URINALYSIS (27521)Indication: Benign essential hypertension On: 31-Dco-838429:45 Request CBC WITH MANUAL DIFF (14463)Indication: Benign essential hypertension On: 36-Swd-879528:45 Request Platelet Count, Citrated (74633)Indication: Thrombocytopenia, unspecified On: :11 Request LIPOPROTEIN, BLD, BY NMR (32936)Indication: Mixed hyperlipidemia On: :07 Request Lipase (35899)Indication: Abdominal pain On: :24 Request Comments: add to hospital labs. Amylase (93799)Indication: Abdominal pain On: :24 Request Comments: add to hospital labs. Antiphospholipid atb (99499)Indication: Pulmonary emboli On: : Request ANTICOAG ANTTHROMB III & ASSAY (04163)Indication: Pulmonary emboli On: : Request METABOLIC PANEL, COMPREHENSIVE (25680)Indication: Benign essential hypertension On: :37 Request Comments: in three months (approximately) CBC with auto diff (54604)Indication: Benign essential hypertension On: :37 Request Comments: in three months (approximately) Troponin I (10612)Indication: Chest pain at rest On: 4-Adl-496282: Request CPK MB FRACTION (77380)Indication: Chest pain at rest On: :01 Request CREATINE KINASE TOTAL (92318)Indication: Chest pain at rest On: 2-Hzn-457416:01 Request D-Dimer (65419)Indication: Chest pain at rest On: 2-Fvo-537273:00 Request Metabolic Panel, Basic (48928)Indication: Chest pain at rest On: :58 Request CBC (Auto) (76568)Indication: Chest pain at rest On: :58 Request URINALYSIS, W/ MICRO (74826)Indication: Benign essential hypertension On: :29 Request METABOLIC PANEL, COMPREHENSIVE (67134)Indication: Benign essential hypertension On: :29 Request LIPID PANEL (02319)Indication: Benign essential hypertension On: :29 Request CBC W/AUTO DIFF WBC (40550)Indication: Benign essential hypertension On: :29 Request URINALYSIS (29704)Indication: UTI (lower urinary tract infection) On: :49 Request LIPID PANEL (30212)Indication: Benign essential hypertension On: :27 Request CBC WITH MANUAL DIFF (87776)Indication: Thrombocytopenia, unspecified On: :27 Request METABOLIC PANEL, COMPREHENSIVE (17818)Indication: Benign essential hypertension On: :27 Request TSH (THYROID STIMULATING HORMONE) (35152)Indication: Post-menopausal bleeding On: :37 Request PROLACTIN (12431)Indication: Post-menopausal bleeding On: :37 Request HEPATIC FUNCTION PANEL (19087)Indication: Hyperglyceridemia On: :05 Request LIPOPROTEIN, BLD, BY NMR (02345)Indication: Hyperglyceridemia On: :04 Request CBC, Platelets & Auto Diff (30921)Indication: Thrombocytopenia, unspecified On: :04 Request Comments: citrate tube Potassium Serum (40316)Indication: Hypokalemia On: 92-Hzr-886927:36 Request Planned Encounters Medical; [facility]ness Exam (DB Nurse) - On: 26-Jul-2018 8:00 [facility] FRANSICO SpencerAINE Jacklyn; JULIANNEP Wellness Exam (Doctor) - On: 16-Aug-2018 8:00 [facility] Brielle FLYNN, Kelly Hernandez MD Planned Procedures EEGBy: Kelly Hannah MD On: 21-May-2018 Intent Kelly FLYNN MRI OF BRAIN WITH AND WITHOUT On: 21-May-2018 Intent CONTRAST (43843)By: Kelly Hannah MD, MD, Dana M EKG (54602)By: Kelly Hannah MD On: 02-Dec-2017 Intent Kelly Hannah MD Radiology - Foot - LeftBy: Brielle On: 12-Aug-2017 Kelly Beltrán MD, MD, Dana M TDAP VACCINE >7 IM ([id number])By: On: 22-Jul-2017 Kelly Espinal MD, MD, Dana Comments: tdap 0.5mL prefilled syringelot:9DL60ckr: DELT IMpt 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 pericardial fluid EKG (43732)By: Kelly Hannah MD On: 04-Sep-2016 Intent Kelly Hannah MD Comments: see scanned document of test done to see results reviewed today with patient Bone Density StudyBy: Brielle FLYNN, On: 09-Jun-2016 Intent Kelly Hernandez MD Kenalog Injection, 10 mgm On: 21-Apr-2016 Intent (J3301)By: Kelly Hannah MD Comments: buupivacaine lot [id number] 06-21-17 kenalog [id number] 09-05 Kelly Hannah MD DOPPLER ULTRASOUND OF RIGHT UPPER On: 20-Apr-2016 Intent EXTREMITY FOR VENOUS THROMBOEMBOLISM (47455)By: Kelly Hannah MD, MD, Dana M MAMMOGRAM, SCREENING, BOTH BREAST On: 27-Feb-2016 Intent (72662)By: Kelly Hannah MD, MD, Dana M Venous Doppler - BothBy: Brielle FLYNN, On: 06-Dec-2015 Intent Kelly Hernandez MD Comments: lower legs rule out DVT ADMINISTRATION OF INFLUENZA VIRUS On: 18-Apr-2015 Intent VACCINE ([id number])By: Kelly Hannah MD Comments: Lot:[id number]:IMLocation:Rt deltoiiddose: .5mlGiven by:Kelly Potter MD FLU VAC, SPLIT, >3 YEARS, INTRAMUSC On: 18-Apr-2015 Intent (27495)By: Kelly Hannah MD Comments: Lot #:[id number] date:Amount given:0.5mlRoute: IMSite given:L DltdGiven by: Peyton CHAMPION and ABN signed Quad Flu Kelly Hannah MD BILATERAL MAMMOGRAMS (09949)By: On: 05-Nov-2014 Intent Kelly Hannah MD, MD, Dana M CT - Chest (IV Contrast Needed)By: On: 23-Jul-2014 Intent Kelly Hannah MD, MD, Dana M COMPUTED TOMOGRAPHY ANGIOGRAPHY OF On: 23-Jul-2014 Intent CHEST WITH AND WITHOUT CONTRAST Comments: rule out PE (70446)By: Kelly Hannah MD, MD, Dana M EKG (18737)By: Lindsey Verde DO On: 05-Jul-2014 Intent Comments: sinus johanny with no chg MAMMOGRAM, SCREENING, BOTH BREAST On: 26-Apr-2014 Intent (46368)By: Kelly Hannah MD, MD, Dana M BILATERAL MAMMOGRAMS (57716)By: On: 27-Mar-2014 Intent Kelly Hannah MD, MD, Dana M IMMUNIZ ADMNIN, 1 VAC, SNGL/COMBO On: 27-Mar-2014 Intent (13261)By: Kelly Hannah MD Comments: Lot #[id number]-[id number] dltd, IMDose prefilled syringegiven by:MLong, LPNVIS and ABN signed Kelly Hannah MD FLU VAC, SPLIT, >3 YEARS, INTRAMUSC On: 27-Mar-2014 Intent (55736)By: Kelly Hannah MD, MD, Dana M Eprescribed prescriptions ([id number])By: On: 10-Oct-2013 Intent Kelly Hannah MD, MD, Dana M Phenergan Injection, up to 50 mg On: 22-Sep-2013 Intent (J2550)By: Nona Whiting CNP Comments: [id number], IM Nyla, CUSTOMER SERVICER INFUSION, NORMAL SALINE SOLUTION , On: 22-Sep-2013 Intent 1000 CC (Special Coverage Instructions Apply. See MCM: 2049) (J7030)By: Nona Whiting CNP HYDRATION IV INFUSION, INIT On: 22-Sep-2013 Intent (32283)By: Nona Whiting CNP Eprescribed prescriptions (G8553)By: On: 10-Jul-2013 Intent Nathalie Nicole Breast Screening - BilateralBy: On: 06-Feb-2013 Intent Kelly Hannah MD, MD, Dana M IMMUNIZ ADMNIN, 1 VAC, SNGL/COMBO On: 06-Feb-2013 Intent (70823)By: SUZY Spencer ZOSTER VACC, PR (90576)By: Tj, On: 06-Feb-2013 Intent SUZY Ultrasound - Abdomen Complete & On: 18-Jan-2013 Intent PelvisBy: Nona Whiting CNP EKG (16341)By: Kelly Hannah MD On: 12-Jul-2012 Intent Kelly Hannah MD Comments: see scanned document of test done to see results reviewed today with patient Eprescribed prescriptions ([id number])By: On: 12-Jul-2012 Intent Long CUSTOMER SERVICER, Nyla L MAMMOGRAM, SCREENING, BOTH BREASTS On: 06-Oct-2011 Intent (50809)By: Kelly Hannah MD Comments: 11-04-11 Kelly Hannah MD MAMMOGRAM, SCREENING, BOTH BREASTS On: 28-Nov-2010 Intent ([id number])By: Kelly Hannah MD, MD, Dana M MAMMOGRAM, SCREENING, BOTH BREASTS On: 23-Oct-2010 Intent (44719)By: Kelly Hannah MD, MD, Dana M EEGBy: Lindsey Verde DO On: 20-Aug-2010 Intent EKG (94465)By: Kelly Hannah MD On: 20-Dec-2009 Intent Kelly Hannah MD EKG (59625)By: Kelly Hannah MD On: 17-Jan-2009 Intent Kelly Hannah MD MAMMOGRAM, SCREENING, BOTH BREASTS On: 17-Jan-2009 Intent (22043)By: Kelly Hannah MD, MD, Dana M Pulse Oximetry (69995)By: Yung On: 04-Jul-2008 Intent Gabriela Comments: 98% Phenergan Injection, up to 50 mg On: 25-Apr-2008 Intent (J2550)By: Nona Whiting CNP Comments: 25mg given IMAmt: 1mlLot: [id number]: 03/2010Route: IMSite: left hipTolerated: wellGiven By: JOE PlataN INFUSION, NORMAL SALINE SOLUTION , On: 25-Apr-2008 Intent 1000 CC (Special Coverage Comments: IV Therapy initiated (Hamzah Black LPN)22G, 1inchSite: right wristTolerated: wellB. Ino, CUSTOMER SERVICER Instructions Apply. See MCM: 9) (J7030)By: Nona Whiting CNP HYDRATION IV INFUSION, INIT On: 25-Apr-2008 Intent (22712)By: Nona Whiting CNP FLU VAC, SPLIT, >3 YEARS, INTRAMUSC On: 21-May-2006 Intent (88381)By: SUZY Spencer IMMUNIZ ADMNIN, 1 VAC, SNGL/COMBO On: 21-May-2006 Intent (01904)By: SUZY Spencer Planned Medications INFUSION, NORMAL SALINE SOLUTION , 1000 CC Ordered: 22-Sep-2013 Pending Nona Whiting CNP INJECTION, TRIAMCINOLONE ACETONIDE, NOT OTHERWISE SPECIFIED, 10 MG Ordered: 21-Apr-2016 Pending Kelly Hannah MD, MD, Dana M INJECTION, TRIAMCINOLONE ACETONIDE, NOT OTHERWISE SPECIFIED, 10 MG Ordered: 15-Feb-2017 Pending Kelly Hannah MD, MD, Kelly Cristina Phenergan 50 MG/ML Injection Solution Ordered: 22-Sep-2013 Pending Nona Whiting CNP Instructions Name Dates Details BMI 39.0-39.9,adult : How to access health [...] Instructions Indication: Depression Encounters Office Visit On: 21-May-2018 8:11 Encounter Diagnosis: [...] for Tdap vaccination (Renamed from Need for evlshovlto-dadbduo-jxbshreav (Tdap) vaccine, adult/adolescent), Thrombocytopenia, unspecified [facility] [...] Cold Symptoms: Pt just flew home from [place] yesterday.- yellow green nasal discharge- sx for [...] [facility] End: 19-Apr-2006 14:22 Payers [employer]/MAGDALENE ESCUDERO; jelena guarantor
--- OUTSIDE RECORDS SUMMARY | 2018-07-14 07:30 | XMS RPT_ITS | Continuity of Care Document ---
:1950 Author Organization [facility] Address [facility] [address] [place] [address] Phone Care Team Providers Name Role Phone Brielle FLYNN, Kelly Cristina Unavailable Jhony Castillo Unavailable Unavailable Mynor FLYNN, [...] to lipid rich plaque (I25.10, 414.00) Comments: cath 30% LADbv screscreening 08-08 neg Status: Active Current nonsmoker (Renamed from Current non-smoker) (Z78.9, V49.89) Status: Active Deliveries (Parity) Comments: 2 Status: Active Depression (F32.9, 311) Comments: dealing with son with depression lost job was in . lost [employer] and she has to drive around. life withsomeone OCD, hoarder. on ambien for sleep per Dr. coates. Wellbutrin start but had insomni a in past. working with [employer]. doing okay on incresae welbutrin.tried Effexor, paxil [...] adipex and topamax. 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 got new treadmill right now stable not loose it. Status: Active ROSAMARIA on CPAP (G47.33, 327.23) Comments: work with Dr. coates. doing good with this. use romzeman. needs something to help fall asleep Status: Active Pregnancies () Comments: 2 Status: Active Trochanteric bursitis of both hips (M70.61, 726.5) Status: Active Medications Name Dates Details ASPIRIN EC, 81MG (Oral Tablet Delayed Release) [address] qd for 0 days Quantity: 30 {Tablet} Refills: 0 Ordered:23-Sep-2015 Brielle FLYNN, Kelly Cespedes MD Start : 23-Sep-2015 Active BuPROPion HCl ER (XL) 300 MG Oral Tablet Extended Release 24 Hour 1 (one) Tablet in am for 0 days Quantity: 30 {Tablet} Refills: 5 Ordered:10-May-2018 Brielle FLYNN, Kelly Cespedes MD Start : 10-May-2018 Active Crestor 5 MG Oral Tablet 1 (one) Tablet Tablet in am for 0 days Quantity: 30 {Tablet} Refills: 6 Ordered:02-Dec-2017 SUZY Spencer Start : 02-Dec-2017 Active Diflucan 150 MG Oral Tablet uad Tablet take 1 tablet today and may repeat in 1-2 days if not gone for 0 days Quantity: 2 {Tablet} Refills: 1 Ordered:25-Mar-2018 Kelly Hannah MD, MD, Dana M Start : 25-Mar-2018 Active HydroCHLOROthiazide 25 MG Oral Tablet 1 [...] in am (2000 UNIT) Active Zolpidem Tartrate 10 MG Oral Tablet 1 (one) Tablet qhs prn for 0 days Quantity: 30 {Tablet} Refills: 3 Ordered:28-Jan-2018 Kelly Hannah MD, MD, Dana M Start : 28-Jan-2018 Active Comments:thirty ALIGN (Oral Capsule) 1 (one) [...] 18-Apr-2015 End : 19-Apr-2015 Inactive BD Disp [place] 30G X 1/2 Miscellaneous 1 (one) Misc [...] End : 15-Feb-2015 Inactive Comments:has at home EFFEXOR XR, 37.5MG (Oral Capsule Extended Release [...] Inactive Comments:Medication taken as needed. called to [facility] 07-30-09 erussell disp 4 ounces no refills [...] Extended Release) 1 (one) Tablet ER at [facility] for 14 days for 0 days Quantity: 14 {Tablet_ER} Refills: 0 Ordered:02-May-2010 SUZY Spencer Start : 20-Dec-2009 End : 02-May-2010 Inactive NYSTATIN, 926195UQFU/ML (Mouth/Throat Suspension) 15 Suspension qid swish and swallow for 0 days Quantity: 450 {Milliliter} Refills: 0 Ordered:20-Aug-2010 Suzette Black LPN Start : 04-Aug-2010 End : 20-Aug-2010 Inactive PANTOPRAZOLE SODIUM, 40MG (Oral Tablet Delayed Release) 1 (one) Tablet DR daily for 0 days Quantity: 30 {Tablet} Refills: 6 Ordered:06-Dec-2015 SUZY Spencer Start : 20-Apr-2015 End : 06-Dec-2015 Inactive Pen [place] 5/16 31G X 8 MM Miscellaneous 1 [...] 18-Jan-2013 Inactive Comments:Per fax req, called into [facility] [place] Tussionex Pennkinetic ER 10-8 MG/5ML Oral [...] Leanne Marie Start : 29-Jul-2009 Inactive ZOSTAVAX, 69461CXH/0.65ML (Subcutaneous Solution Reconstituted) uad For Solution one time SQ dose for 0 days Quantity: 1 {For_Solution} Refills: 0 Ordered:05-Jun-2013 SUZY Spencer Start : 06-Feb-2013 End : 05-Jun-2013 Inactive BYDUREON, 2MG (Subcutaneous Suspension Reconstituted) 1 (one) [...] 0 days Quantity: 1 {Each} Refills: 0 Ordered:3-Aug-2016 Kelly Hannah MD, MD, Dana M Start [...] epig was in hospital and work up [facility] [place] cath laboratory technician and stress test. ppi and carafate helping. [...] for Tdap vaccination (Renamed from Need for sdphmlssfp-motodct-cqqbbvnhi (Tdap) vaccine, adult/adolescent) (Z23, V06.1) Status: Resolved [...] 05-04. 02-02 check ddimer normal, off xareltodx 08-05 [...] not think needs atb yet. use manoj DM told when need to call for atb Status: Resolved as of 22-Jul-2017 WWV V73.21 Comments: scope in last 5 years Status: Inactive as of 06-Feb-2013 Procedures Procedure Dates Details appendectomy 1999 Completed cholecystectomy 1981 Completed D and C Completed Hysterectomy; Total Completed Comments: 2014 Knee Replacement, Total Completed Comments: 2007, 2013 bilateral LEFT HEART CARDIAC CATH (73179) Completed Comments: Dr. Alexander nasal abscess I and D 04-30 Completed Date Value Details 19-May-2018 Brain/Head without Contrast Result: Comments: See Note; NOTES: [facility] Imaging Services [address] [place] [address] Brain/Head without Contrast MR#: [id number] Acct: [id number] Name: DIANA ESCUDERO Rep # : [id number] : 1950 F 68 From: Kalia Galan PCP: Kelly Hannah MD Status: REG ER Study: Brain/Head without Contrast Date of Exam: 05/19/18 Exam# [id number] Ordering Dr: Puneet Johnson MD STUDY: C [...] CC: Kelly Hannah MD; Puneet Johnson MD Building Construction Estimator: Signed 19-May-2018 Chest 1 View Result: Comments: See Note; NOTES: [facility] Imaging Services [address] [place] [address] Chest 1 View MR#: [id number] Acct: [id number] Name: DIANA ESCUDERO Rep #: [id number] : 1950 F 68 From: Aaron Salgado MD PCP: Kelly Hannah MD Status: REG ER Study: Chest 1 View Date of Exam: 05/19/18 Exam# [id number] Ordering Dr: Puneet Johnson MD STUDY: X-RAY [...] Aaron Salgado MD at 8:13 EST Tel [phone], Service support , CC: Kelly Hannah MD; Puneet Johnson MD Building Construction Estimator: Signed 03-Mar-2018 Inital Evaluation (1) - PT Result: Comments: See Note; NOTES: [facility] [address] [place] [address] Fax REHABILITATION SERVICES INITIAL EVALUATION MR#: [id number] Acct: [id number] Name: DIANA ESCUDERO Rep #: [id number] : 1950 68 From: Lazaro Jackson DPT Referring Dr.: GENOVEVA Myers Status: REG RCR Insurance: [employer] PPO SELF PAY INSURANCE Patient's Visit Information [...] stabing pain (8/10) at rest. 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 Please let me know if there are questions or concerns regarding this plan of care. Physician Signature: Date: <Electronically signed by Lazaro Jackson DPT&amp ;#62; 03/03/18 1340 CC: GENOVEVA Myers; Kelly Hannah MD CLS Signed For Medicare only, by signing this I certify the plan of care. Physicians Signature Date 16-Feb-2018 12 Lead Electrocardiogram Result: Comments: See Note; NOTES: [facility] Cardiovascular Services [address] [place] [address] 12 Lead EKG 02/14/18 1459 MR#: [id number] Acct: [id number] Name: DIANA ESCUDERO Rep #: [id number] : 1950 68 From: Harris Brandt MD [...] Int : 401 ms Sinus bradycardia Inferior HI, age undeterm ined, cannot be excluded Confirmed by KEVIN FLYNN, HARRIS ([id number]), marketing editor SHIELA DOWELL ([id number]) on 02/16/2018 1:34:57 PM Referred By: BRIEN Confirmed By:HARRIS BRANDT MD 02/16/18 1335 Date __ Harris Brandt MD CC: Kelly Hannah MD; Kasi Worley MD Signed 15-Feb-2018 Emergency Department Summary Result: Comments: See Note; NOTES: [facility] Medical Records Department [address] [place] [address] Emergency Department Summary 02/14/18 1636 MR#: [id number] Acct: [id number] Name: DIANA ESCUDERO Rep #: [id number] : 1950 68 From: Kasi Worley MD [...] score 1. This note was generated with [employer] software. It may contain incorrect words, spelling, [...] your Primary Care Provider. Call [facility] ([phone]) or report to the closest Emergency Room. Call 911 if necessary. 02/15/18 0046 <Electronically signed by Jose Daniel Worley MD> Date Kasi Worley MD Cosigner Signature (If Indicated): Date CC: Kelly Hannah MD 14-Feb-2018 Venous Duplex Lower Extremity Result: Comments: See Note; NOTES: [facility] Cardiovascular Services [address] [place] [address] Venous Duplex US, Unilateral 02/14/18 1549 MR#: [id number] Acct: [id number] Name: DIANA HICKMAN OLGA Rep #: [id number] : 1950 68 From: Abdoulaye Landa MD [...] Landa MD on 02/14/2018 05:41 PM 02/14/18 174 Date Abdoulaye Landa MD CC: Kelly Hannah MD; Kasi Worley MD Date Dictated: 0 02/14/18 1549 Date Transcribed: 02/14/181740 Building Construction Estimator: Signed 14-Feb-2018 Chest 1 View (Portable) Result: Comments: See Note; NOTES: [facility] Imaging Services [address] [place] [address] Chest 1 View (Portable) MR#: [id number] Acct: [id number] Name: DIANA ESCUDERO Rep #: [id number] : 1950 F 68 From: Aaron Salgado MD PCP: Kelly Hannah MD Status: REG ER Study: Chest 1 View (Portable) Date of Exam: 02/14/18 Exam# [id number] Ordering Dr: Kasi Worley MD STUD Y: [...] Aaron Salgado MD at 15:52 EDT Tel [phone], Service support , CC: Kelly Salgado; Kasi Worley MD Building Construction Estimator: Signed 24-Jan-2018 Cardiology Visit Report Result: Comments: See Note; NOTES: [facility] [address] [place] [address] OFFICE VISIT Date of Service: 01/24/18 MR#: [id number] Acct: [id number] Name: DIANA ESCUDERO Rep #: [id number] : 1950 Provider: Puneet Alexander MD Age/Sex: 67/F Location[facility] Status: Signed HPI HPI Chief Complaint: Routine f/u Details: HPI This is a 66-year-old female who was in tially referred to us for evaluation of [...] Intake Visit Reasons[facility]: No Allergies simvastatin [From Zocor] Adverse [...] mg PO QDAY 01/24/18 [History Confirmed 01/24/18] [facility] Medical History Obstructive sleep apnea (Chronic) History of pulmonary embolism (Chr onic) Atherosclerosis of coronary artery of rosebud heart without angina pectoris (Chronic) Hypertension (Chronic) [...] Plan 1. Atherosclerosis of coronary artery of rosebud heart without angina pectoris I25.10 Non Obs [...] 3 Diagnoses Atherosclerosis of coronary artery of rosebud heart without angina pect ranulfo I25.10 Hyperlipidemia E78.5 Coding Level of Care Code Off vis,est,level 3 Diagnoses Atherosclerosis of coronary artery of rosebud heart without angina pectoris I25.10 Hyperlipidemia E78.5 080 12/06 1536 <Electronically signed by Puneet Alexander MD> Date Puneet Alexander MD Cosigner Signature: Date (if applicable) CC: Kelly Hannah MD 12-Aug-2017 Foot min 3 Views Result: Comments: See Note; NOTES: [facility] Imaging Services [address] [place] [address] Foot min 3 Views MR#: [id number] Acct: [id number] Name: DIANA ESCUDERO Rep #: [id number] : 1950 F 67 From: Aaron Salgado MD PCP: Kelly Hannah MD Status: REG CLI Study: Foot min 3 Views Date of Exam: 08/12/17 Exam# [id number] Ordering Dr: Kelly Hannah MD STUDY: X-RAY [...] Plantar spur. Electronically Signed: Aaron Salgado MD 20 08/08/21 at 14:14 EST Tel [phone], Service support , CC: Kelly Hannah MD Building Construction Estimator: Signed 05-Aug-2017 TXT - Blood Flow Screening Result: Comments: See Note; NOTES: [facility] Cardiovascular Services [address] [place] [address] 08/05/17 0756 MR#: [id number] Acct: [id number] Name: DIANA ESCUDERO Rep #: [id number] [...] MD CC: Kelly Hannah MD Date Dictated: 08/05/17755 Date T ranscribed: 08/05/172129 Building Construction Estimator: Signed 15-Jul-2017 Cardiology Visit Report Result: Comments: See Note; NOTES: [facility] [address] [place] [address]. [address] [place] [address] OFFICE VISIT Date of Service: 07/15/17 MR#: [id number] Acct: [id number] Name: DIANA ESCUDERO OLGA Rep #: [id number] : 1950 Provider: Puneet Alexander MD Age/Sex: 67/F Location: [facility] Status: Signed HPI 6 M FU: Chief [...] Hyperlipidemia (Chronic) Atherosclerosis of coronary artery of rosebud heart without angina pectoris (Chronic) Blood glucose [...] of Care Code Off vis,est,level 3 07/15/17 9121 <Electronically signed by Walter Alexander MD> Date Puneet Alexander MD Cosigner Signature: Date (if applicable) CC: 19-Apr-2017 SCREENING MAMM (CAD), BILAT Result: Comments: See Note; NOTES: [facility] Imaging Services [address] [place] [address] SCREENING MAMM (CAD), BILAT MR#: [id number] Acct: [id number] Name: DIANA ESCUDERO OLGA Rep # : [id number] : 1950 F 67 From: Aaron Salgado MD PCP: Kelly Hannah MD Status: [facility] Study: SCREENING MAMM (CAD), BILAT Date of Exam: 04/19/17 Exam# [id number] Ordering Dr: Kelly Hannah MD MAMMOGRAPHY - [...] delay biopsy of a clinically suspicious abnormality. [id number] Electronically Signed: Aaron Salgado MD at 8:33 EDT Tel [phone], Service support , CC: Kelly Hannah MD Building Construction Estimator: Signed 16-Sep-2016 Echocardiogram Complete Result: Comments: See Note; NOTES: [facility] Cardiovascular Services [address] [place] [address] Echo Complete 09/16/16 0956 MR#: [id number] Acct: [id number] Name: DIANA ESCUDERO Rep #: [id number] : 1950 66 From: Emil Craven MD Attending Dr: Kelly Hannah MD Status: REG CLI Ordering Dr: Kelly Hannah MD Date: 09/16/16 Location: [facility] Sex: F C Admitted: [...] Dictated: 09/16/16 0956 Date Transcribed: 09/16/16 1145 Building Construction Estimator: Signed 04-Sep-2016 CTA Chest W/WO Contrast Result: Comments: See Note; NOTES: [facility] Imaging Services [address] [place] [address] Verdana 4d CTA Chest W/WO Contrast MR#: [id number] Acct: [id number] Name: KENADIANA Casandra Roberts Rep #: [id number] : 1950 F 66 From: Aaron Salgado MD PCP: Kelly Hannah MD Status: [facility] ER Study: CTA Chest W/WO Contrast Date of Exam: 09/04/16 Exam# [id number] Ordering Dr: Leanne Finn STUDY: CTA CHEST [...] Burak Salgado MD at 11:40 EDT Tel [phone], Service support [phone], CC: Leanne Finn MD; Kelly Hannah MD Building Construction Estimator: Signed 23-Jun-2016 Dexa Bone Density Study (HP) Result: Comments: See Note; NOTES: [facility] Imaging Services [address] [place] [address] Verdana 4d Dexa Bone Density Study (HP) MR#: [id number] Acct: [id number] Name: EDUARDO ESCUDERO OLGA Rep #: [id number] : 1950 F 66 From: Aaron Salgado MD PCP: Kelly Hannah MD Status: REG CLI Study: Dexa Bone Density Study () Date of Exam: 06/23/16 Exam# [id number] Ordering Dr: Kelly Posey MD STUDY: DUAL [...] Aaron Salgado MD at 16:05 EST Tel [phone], Service support [phone], CC: Kelly Hannah MD Building Construction Estimator: Signed 20-Apr-2016 Venous Duplex Lower Extremity Result: Comments: See Note; NOTES: [facility] Cardiovascular Services [address] [place] [address] Venous Duplex US, Unilateral 04/20/16 1428 MR#: [id number] Acct: [id number] Name: DIANA ESCUDERO Rep #: [id number] : 1950 66 From: Marcus Garza MD Attending Dr: Kelly Hannah MD Status: REG CLI Ordering Dr: Kelly Hannah MD Date: 04/20/16 Location: [facility] Sex: F C Admitted: Reason For Study: [...] Date Dictated: 04/20/16 1428 Date Transcribed: 04/20/162149 Building Construction Estimator: Signed 23-Mar-2016 Bilat Scrn Digital AND CAD Result: Comments: See Note; NOTES: [facility] Imaging Services [address] [place] [address] Ver[place]ana 4d Bilat Scrn Digital AND CAD MR#: [id number] Acct: [id number] Name: ANGELA ESCUDERO OLGA Rep #: [id number] : 1950 F 66 From: Aaron Salgado MD PCP: Kelly Hannah MD Status: REG CLI Study: Bilat Scrn Digital AND CAD Date of Exam: 03/23/16 Exam# [id number] Ordering Dr: Kelly Resendiz i, MD MAMMOGRAPHY [...] delay biopsy of a clinically suspicious abnormality. [id number] Electronically Signed: Aaron Salgado MD at 7:51 EDT Tel [phone], Service support [phone], CC: Kelly Hannah MD Building Construction Estimator: Signed 02-Jan-2016 Venous Duplex Lower Extremity Result: Comments: See Note; NOTES: [facility] Cardiovascular Services [address] [place] [address] Venous Duplex US - Johnny Extrem 01/02/16 1454 MR#: [id number] Acct: [id number] Name: DIANA ESCUDERO Rep #: [id number] : 1950 65 From: Marcus Garza MD [...] Physician: Kelly Hannah Performed By: Rachana Egan, RDCS, RVT 01/02/16 1653 Date Marcus Garza MD CC: Kelly Hannah MD Date Dictated: 01/02/16 1454 Date Transcribed: 01/02/161653 Building Construction Estimator: Signed 12-Dec-2015 12 Lead Electrocardiogram Result: Comments: See Note; NOTES: [facility] Cardiovascular Services [address] [place] [address] 12 Lead EKG 12/03/151124 MR#: [id number] Acct: [id number] Name: DIANA DOWLING OLGA Rep #: [id number] : 1950 65 From: Puneet Alexander MD [...] normal ECG Confirmed by PUNEET ALEXANDER ([id number]), marketing editor SHIELA DOWELL (56) on 12/09/2015 10:54:37 AM Referred By: KIRT Confirmed By:PUNEET ALEXANDER 12/09/15 1054 Date ___ Puneet Alexander MD CC: Kelly Hannah MD Date Dictated: 12/03/151124 Date Transcribed: 12/03/151124 Building Construction Estimator: Signed 03-Dec-2015 Emergency Department Summary Result: Comments: See Note; NOTES: [facility] Medical Records Department [address] [place] [address] Emergency Department Summary MR#: [id number] Acct: [id number] Name: DIANA ESCUDERO OLGA Rep #: [id number] : 1950 65 From: Leanne Finn MD [...] Pleurisy. Leanne Finn MD T: NTS JOB: [id number] 12/03/15 1536 <Electronically signed by Leanne Finn MD& #62; Date Leanne Finn MD Cosigner Signature (If Indicated): Date CC: Kelly Hannah MD Da te Dictated: 12/03/151356 Date Transcribed: 12/03/151356 Building Construction Estimator: Signed 03-Dec-2015 Discharge Instruction Result: Comments: See Note; NOTES: [facility] Medical Records Department [address] [place] [address] Discharge Instruction 12/03/151353 MR#: [id number] Acct: [id number] Name: KENADIANA OLGA Rep #: [id number] : 1950 65 From: Leanne Finn MD [...] problems, contact your doctor. Call [facility] ([phone]) or report to the closest Emergency Room. Call 911 if necessary. 12/03/151356 &# 60;Electronically signed by Leanne Finn MD> Date Leanne Finn MD Cosigner Signature (If Indicated): Date CC: Kelly Hannah MD 03-Dec-2015 CTA Chest W/WO Contrast Result: Comments: See Note; NOTES: [facility] Imaging Services [address] [place] [address] Verdana 4d CTA Chest W/WO Contrast MR#: [id number] Acct: [id number] Name: DIANA MENESES Rep #: [id number] : 1950 F 65 From: Aaron Salgado MD PCP: Kelly Hannah MD Status: REG ER Study: CTA Chest W/WO Contrast Date of Exam: 12/03/15 Exam# [id number] Ordering D r: Leanne Finn MD STUDY: [...] Aaron Salgado MD at 13:37 EDT Tel [phone], Service support [phone], CC: Leanne Finn MD; Kelly Hannah MD Building Construction Estimator: Signed 24-Jul-2015 Sleep Study Report Result: Comments: See Note; NOTES: [facility] SLEEP [facility]ORDER [facility] [address] [place] [address] Split Night Sleep Study MR#: [id number] Acct: [id number] Name: Miguel Angel ESCUDERO Rep #: [id number] : 1950 65 From: Jimmy Coates MD [...] version). Please note that a reference to [facility] AHI in this report is consistent with the current Hypopnea definition according to Medicare Criteria and an [facility] AHI reference is consistent wit h the current Hypopnea definition according to the AASM criteria and is recognized by [facility] as the RDI. PROCEDURE: The study was attended continuously by a physics technician. Monitored parameters inclu ded left and [...] calculated body mass index of 35 and Bittinger Sleepiness Scale score of 6/20. The patient [...] and heated humidity. SLEEP STUDY DATA: [facility] split night study began at 1114:07 p.m. [...] MAmber. Jimmy Coates MD T: SHARMAINE JOB: [id number] CC: Jimmy Coates MD DD: 08/06 104 1043 07/24/15 2205 <Electronically signed by Jimmy Coates MD> Date Jimmy Coates MD Co-signature (if appli cable) Date Signed 12-Feb-2015 Chest 1 View (Portable) Result: Comments: See Note; NOTES: [facility] Imaging Services [address] [place] [address] Radiology Report MR#: [id number] Acct: [id number] Name: DIANA ESCUDERO Rep #: [id number] : 1950 F 65 From: Aaron Salgado MD PCP: Kelly Hannah MD Status: PRE ER Study: Chest 1 View (Portable) Date of Exam: 02/12/15 Exam# [id number] Ordering Dr: Kenroy Arciniega MD S KB: X-RAY CHEST REASON FOR EXAM: Female, 65 [...] Aaron Salgado MD at 11:08 EDT Tel [phone], Service support [phone], RAD/Chest 1 View (Portable) IMPRESSION: No acut e abnormality is seen. Electronically Signed: Aaron Salgado MD at 11:08 EDT Tel [phone], Service support [phone], CC: Kelly Hannah MD; Kenroy Arciniega MD Building Construction Estimator: Signed 12-Feb-2015 CTA Chest W/WO Contrast Result: Comments: See Note; NOTES: [facility] Imaging Services [address] [place], [place] [address] CAT Scan Report MR#: [id number] Acct: [id number] Name: DIANA ESCUDERO Rep #: [id number] : 1950 F 65 From: Aaron Salgado MD PCP: Bonezzi MD,Kelly Status: REG ER Study: CTA Chest W/WO Contrast Date of Exam: 02/12/15 Exam# [id number] Ordering Dr: Kenroy Arciniega MD UDY: CTA [...] Aaron Salgado MD at 12:08 EDT Tel [phone], Service support [phone], CC: Kelly Hannah MD; Kenroy Arciniega MD Building Construction Estimator: Signed 11-Jan-2015 Bilat Scrn Digital AND CAD Result: Comments: See Note; NOTES: [facility] Imaging Services [address] [place] [address] Breast Imaging Report MR#: [id number] Acct: [id number] Name: DIANA ESCUDERO Rep #: [id number] : 1950 F 64 From: Shaan Nunez DO PCP: Kelly Hannah MD Status: REG CLI Study: Bilat Scrn Digital AND CAD Date of Exam: 01/11/15 Exam# [id number] Ordering Dr: Kelly Hannah MD MAMMOGRAPHY - [...] facility within 30 days. According to [employer], yearly mammograms are recommended starting [...] Shaan Nunez DO at 10:22 EDT Tel [phone], Service support [phone], CC: Kelly Hannah MD Building Construction Estimator: Signed 23-Jul-2014 CTA Chest W/WO Contrast Result: Comments: See Note; NOTES: [facility] Imaging Services [address] [place] [address] CAT Scan Report MR#: [id number] Acct: [id number] Name: DIANA ESCUDERO Rep #: [id number] : 1950 F 64 From: Aaron Salgado MD PCP: Kelly Hannah MD Status: REG CLI Study: CTA Chest W/WO Contrast Date of Exam: 07/23/14 Exam# [id number] Ordering Dr: Kelly Hannah MD S SABRINADY: CTA CHEST REASON FOR EXAM: Female, 64 [...] Aaron Salgado MD at 12:47 EST Tel [phone], Service support [phone], CC: Kelly Hannah MD Building Construction Estimator: Signed 04-Jan-2014 Consultation Result: Comments: See Note; NOTES: [facility] Medical Records Department [address] [place] [address] Consultation 01/04/14 1218 MR#: [id number] Acct: [id number] Name: DIANA ESCUDERO Rep #: [id number] : 1950 63 From: Juancho Foy MD PCP: Kelly Hannah MD Status: REG [facility] Location: [place] [address] Problem List (1) Bradycardia Status: Acute (2) [...] showed sinus bradycardia, normal QRS duration, normal PA interval, normal QT interval, no ischemic hardy [...] PO Q4H PRN PRN #30 tablet 01/04/14 [[place] 5/325] Surgical History: appendectomy, cholecystectomy, - - Hysterectomy Psychiatric History: No pertinent psych hx 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 #4 DVT prophylaxis: SCDs. 01/04/14 1245 <Steve ically signed by Juancho Foy MD> Date Juancho Foy MD CC: Kelly Hannah MD Signed 04-Jan-2014 Discharge Instruction Result: Comments: See Note; NOTES: [facility] Medical Records Department [address] [place] [address] Instructions for Home/Discharge Instructions 01/04/1431 MR#: [id number] Acc t: [id number] Name: DIANA ESCUDERO Rep #: [id number] : 1950 63 From: Anatoly Diego MD PCP: Kelly Hannah MD Status: [facility] Discharge Diet: No Restrictions Discharge Activity: Return [...] PRN PRN #60 capsule Hydrocodone Bitart/Apap 5-325 [[place] 5/325] 1 tablet PO Q4H PRN PRN #30 tablet Please Follow Up With: Anatoly Diego When: 2-3 weeks Proposed Discharge Date: 01/05/14 01/04/14 0735 <Electronically signed by Anatoly Diego MD> Date Anatoly Diego MD CC: Kelly Hannah MD 10-Oct-2013 EKG (66889) Comments: see scanned document of test done to see results reviewed today with patient Result: [MEASUREMENTS ANALYSIS] Date of Test: 10/10/2013 08:20:27; Heart Rate: 64; PA Interval: 160; QRS: 90; QT Interval: 394; Corrected QT Interval (QTc): 401; P Wave Warriors Mark: 50; QRS Wave Warriors Mark: 5; T Wave Warriors Mark: 14; Blood Pressure: 122/78 [ECG DIAGNOSTIC STATEMENTS] [...] Status: Active Current Work/Study Status 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 Status: Active Living Situation: Lives with domestic partner. Comments: , Pentec[employer]al Status: Active No Caffeine Use Status: Active No Drug Use Status: Active Non Smoker/No Tobacco Use Status: Active Tobacco Use: Never smoker. Status: Active Smoking Status Name Dates Details Never smoker Vital Signs Date Test Result Details 34-Uka-509164:28 Weight 233 lb Height 65 in Body [...] 0.00 cm Results Date Description Value Details 07-Omz-06930:40 Urinalysis, Complete Comments: Order Date: 05/19/18Has pt arrived? YHow was Urine Obtained? 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 Ymtayrlkdf[address] [place], [place], [address] GAP 5 (Normal) Range: 5-15 CO2 29.0 [...] A.D.A. criteria.Please note revised GLUCOSE reference range orbhbpxpl70/02/2018. :26 CBC W/Diff, Automated Comments: [facility] Rpbrbjhivi[address] [place], [place], [address] Absolute Lymph 2.03 {X10_3/ul} (Normal) Range: 0.83-4.51 [...] Range: 4.4-11.0 :26 Partial Thromboplast Time Comments: [facility] Pvzuzcrhne7708 [facility] [place], [place], [address] PTT 28.1 s (Normal) Range: 24.1-36.2 :26 Prothrombin Time w/INR Comments: [facility] Sxpztrnhxo23[address] [facility] [place], [place], [address] INR 1.0 (Normal) PROTIME 12.7 s (Normal) Range: 11.7-14.9 :26 Troponin-I Comments: [facility] Bmeajaeazy5720 [facility] [place], [place], [address] TROPONIN-I < 0.015 ng/mL (Normal) Comments: TROPONIN-I EXPECTED VALUES <0.045 Negative 0.045 - 0.590 Consistent with Cardiac Damage > OR = 0.600 Critical Value Not every elevated troponin is indicative of HI. T hesevalues should be used with clinical judgement in examiningthe patient's clinical picture for diagnosis. To establisha diagnosis of HI versus myocardial injury, there must be ademonstrated rise and/ or fall in the troponin values, inaddition to ischemic symptoms, EKG changes, new regionalwall motion abnormality, and/or angiographical evidence. PLEASE NOTE: REFERENCE RANGES EDITED 17:13 Bedside Glucose Comments: [facility] LaboratoryPoint of Rxwa[address] [place] [address] BEDSIDE GLU 101 mg/dL (Normal) Range: 70-110 Comments: MANAGEMENT OF PATIENT CARE PER NURSING PROTOCOL :16 LIPOPROTEIN, BLD, BY NMR Comments: PATIENT WAS FASTINGPERFORMED BY: LabCo[address] [id number] (479[address]) LP-IR Score 81 (Abnormal) Comments: INSULIN RESISTANCE MARKER <--Insulin Sensitive Insulin Resistant--> Percentile in Reference PopulationInsulin Resistance ScoreLP-IR Score Low 25th 50th 75th High <27 27 45 63 >63LP-IR Score is inaccurate if patient is non-fasting. .The LP-IR score is a laboratory developed i [facility] that has beenassociated with insulin [...] were developed and their performance characteristicsdetermined by [employer]. These assays have not been cleared by [...] 1600 - 2000 Very High > 2000 68-Lje-421186:35 Basic Metabolic Profile (BMP) Comments: [facility] Sjrloztrgy[address] [place], [place], [address] GAP 10 (Normal) Range: 5-15 CO2 30.0 [...] A.D.A. criteria.Please note revised GLUCOSE reference range glwunjfom32/02/2018. 48-Krp-216698:35 CBC W/Diff, Automated Comments: [facility] Bcpbxfoica[address] [place], [place], [address] Absolute Lymph 2.44 {X10_3/ul} (Normal) Range: 0.83-4.51 [...] K/mm3 (Normal) Range: 4.4-11.0 :35 Troponin-I Comments: [facility] Rs[address]wh[address] [place], [place], [address] TROPONIN-I < 0.015 ng/mL (Normal) Comments: TROPONIN-I EXPECTED VALUES <0.045 Negative 0.045 - 0.590 Consistent with Cardiac Damage > OR = 0.600 Critical Value Not every elevated troponin is indicative of HI. T hesevalues should be used with clinical judgement in examiningthe patient's clinical picture for diagnosis. To establisha diagnosis of HI versus myocardial injury, there must be ademonstrated rise and/ or fall in the troponin values, inaddition to ischemic symptoms, EKG changes, new regionalwall motion abnormality, and/or angiographical evidence. PLEASE NOTE: REFERENCE RANGES EDITED 11/01/1723-Sep-20178:28 Pathology Report Comments: PERFORMED BY: LUIS [facility]Bon [facility] Fhai2533 [facility] [place] [id number] BY: [facility] Dermatopathology Sqhzoil[address] [place] [address] [id number] [id number] Information: [id number] See MATER Comments: Material submitted: .RIGHT HAND BIOPSYClinical history: .BLACK SPOT ON HAND Note (Normal) Diagnosis:BLUE NEVUS.TMZ/09/28/2017Electronically signed: .Mya Fay MD, DermatopathologistGross description: .RECEIVED IN FORMALIN LABELED DIANA ESCUDERO AND DESIGNATEDRIGHT HAND IS A PUGH SKIN PUNCH BIOPSY MEASURING 3.0 MM IN ANDREW METERAND 2.0 MM THICK WITH A OLIVAS, RAISED AREA 2.5 X 1.5 MM. SUBMITTEDIN TOTO.FUN/TMZPathologist provided ICD-10:D22.61CPT .134178 96-Qkq-53891:47 Platelet Count on Comments: PATIENT WAS FASTINGPERFORMED BY: [employer] LabCoTVbeatRtbmipasco8382 [facility] [id number] BY: LabCoSaint Barnabas Behavioral Health CenterNfqskf6753 [facility] [id number] Citrated Bld Plt Count, Citrated Bld 160 {X10E3/uL} (Normal) Range: 150-379 :47 LIPOPROTEIN, BLD, BY NMR Comments: PATIENT WAS FASTINGPERFORMED BY: [facility] Hueowjzhxw9549 [facility] [id number] BY: LabOffSite VISION Bjkdok3769 [facility] [id number] Information: PLATELET ON CITRATE BLD [id number] (90055) LP-IR Score 85 (Abnormal) Comments: INSULIN RESISTANCE MARKER <--Insulin Sensitive Insulin Resistant--> Percentile in Reference PopulationInsulin Resistance ScoreLP-IR Score Low 25th 50th 75th High <27 27 45 63 >63LP-IR Score is inaccurate if patient is non-fasting. .The LP-IR score is a laboratory developed i [facility] that has beenassociated with insulin [...] were developed and their performance characteristicsdetermined by [employer]. These assays have not been cleared by [...] 1600 - 2000 Very High > 2000 04-Uaf-62656:43 Albumin/Creatinine Ratio,Urine Comments: PATIENT NOT FASTINGPERFORMED BY: Abzena6370 [facility] SalesAt[facility] Health [facility]ville [id number] Alb/Creat Ratio <1.4 {mg/g_creat} (Normal) Range: 0.0-30.0 Albumin, Urine <3.0 ug/mL (Normal) Creatinine, Urine 212.4 mg/dL (Normal) 90-Dzv-53757:43 CBC With Differential/Platelet Comments: PATIENT NOT FASTINGPERFORMED BY: Abzena6370 [facility] Auto SalesAtrium Health [facility]ville [id number] Immature Grans (Abs) 0.0 {x10E3/uL} (Normal) Range: [...] 3.77-5.28 WBC 6.3 {x10E3/uL} (Normal) Range: 3.4-10.8 38-Hvc-17793:43 Comp. Metabolic Panel (14) Comments: PATIENT NOT FASTINGPERFORMED BY: [facility] Mofxdy5515 [facility] [id number] ALT (SGPT) 18 [iU]/L (Normal) Range: 0-32 [...] Glucose, Serum 100 mg/dL (Abnormal) Range: 65-99 13-Oge-41769:43 Urinalysis, Routine Comments: PATIENT NOT FASTINGPERFORMED BY: PerspecSys[address] [id number] Microscopic Examination MICNIP (Normal) Comments: Microscopic not indicated and not performed. Nitrite, Urine Negative (Normal) Urobilinogen,Semi-Qn 0.2 mg/dL (Normal) Range: 0.2-1.0 Bilirubin Negative (Normal) Occult Blood Negative (Normal) Ketones Negative (Normal) Glucose Negative (Normal) Protein Negative (Normal) WBC Esterase Negative (Normal) Appearance Clear (Normal) Urine-Color Yellow (Normal) pH 6.0 (Normal) Range: 5.0-7.5 Specific [place] 1.025 (Normal) Range: 1.005-1.030 20-Tdz-055659:21 FLU A+B DIRECT AG, (RAPID) (25175) FLU A+B DIRECT AG, (RAPID) negative (Normal) :32 Potassium Serum (42717) Comments: PATIENT NOT FASTINGPERFORMED BY: [employer] [id number] BY: [address] [id number] Potassium, Serum 3.9 mmol/L (Normal) Range: 3.5-5.2 :32 Magnesium (33397) Comments: PATIENT NOT FASTINGPERFORMED BY: LabMunson Medical Center6370 [facility] [id number] BY: [address] [id number] Magnesium, Serum 2.0 mg/dL (Normal) Range: 1.6-2.3 :32 CCP ANTIBODY (34367) Comments: PATIENT NOT FASTINGPERFORMED BY: [place] 7506270 [facility] [id number] BY: [address] [id number] CCP Antibodies IgG/IgA 10 {units} (Normal) Range: 0-19 Comments: Negative <20 Weak positive 20 - 39 Moderate positive 40 - 59 Strong positive >59 :32 TSH (47000) Comments: PATIENT NOT FASTINGPERFORMED BY: Snap TrendsAndrea [place] 801[address]70 [facility] [id number] BY: [address] [id number] TSH 3.380 {uIU/mL} (Normal) Range: 0.450-4.500 :32 SED RATE ERYTHROCYTE Comments: PATIENT NOT FASTINGPERFORMED BY: [place] TrendsAnd[place] 801[address]70 [facility] [id number] BY: [address] [id number] (62763) Sedimentation Rate-Westergren 14 mm/h (Normal) Range: 0-40 :32 C-REACTIVE PROTEIN (33614) Comments: PATIENT NOT FASTINGPERFORMED BY: [place] 7[address] [facility] [id number] BY: [address] [id number] C-Reactive Protein, Quant 3.5 mg/L (Normal) Range: 0.0-4.9 :32 JESUS ALBERTO (ANTINUCLEAR ANTIBODY) Comments: PATIENT NOT FASTINGPERFORMED BY: [place] 7[address] [facility] [id number] BY: [facility] [address] [id number]; fu 3-30 (40598) JESUS ALBERTO Direct Negative (Normal) 97-Ubc-658530:37 Basic Metabolic Profile (BMP) Comments: 'TROP' Serial specimen #1, #2, #3, or #4: 1[facility] Dtyryenydi[address] [place], [address] GAP 8 (Normal) Range: 5-15 [...] <126 mg/dLsuggests IMPAIRED HOMEOSTASIS per A.D.A. criteria. 20-Zqf-108622:37 CBC W/Diff, Automated Comments: [facility] Xmwmvctrwi[address] [place], [address] Absolute Lymph 1.93 {X10_3/ul} (Normal) [...] 4.2-5.4 WBC 5.9 K/mm3 (Normal) Range: 4.4-11.0 56-Sxp-868615:37 Troponin-I Comments: 'TROP' Serial specimen #1, #2, #3, or #4: [address] [place] [address] W[address]bqxypu[address] [place], [place], [address] TROPONIN-I < 0.02 ng/mL (Normal) Comments: TROPONIN-I EXPECTED VALUES <0.05 NEGATIVE 0.06 - 0.59 AT RISK OF HI > OR = 0.60 SUGGEST HI 98-Lmm-193773:16 HEPATITIS C ANTIBODY (50073) Comments: CLient bill for this; PATIENT NOT FASTINGPERFORMED BY: LabCoSaint Barnabas Behavioral Health CenterVhkdnv3929 [facility] [id number] Hep C Virus Ab <0.1 {s/co_ratio} (Normal) Range: 0.0-0.9 Comments: Negative: < 0.8 Indeterminate: 0.8 - 0.9 Positive: > 0.9 . The CDC recommends that a positive HCV antibody result be followed up with a HCV Nucleic Acid Amplification test (679669). :32 CBC W/Diff, Automated Comments: [facility] [address]jjpuphay[address] [place], [address] Absolute Lymph 2.31 {X10_3/ul} (Normal) Range: 0.83-4.51 [...] 1'CKMB' Serial Specimen #1, #2 or #3? [facility] Kxjedpoxrp[address] [place], [place], [address] GAP 7 (Normal) Range: 5-15 CO2 28.0 [...] 1'CKMB' Serial Specimen #1, #2 or #3? [facility] Qupugakoeu50[address] [place], [place], [address] CKRI 1.1 % (Normal) Range: 0.0-1.4 Comments: [...] 1'CKMB' Serial Specimen #1, #2 or #3? [facility] Nkxkuwbhff0667 [address] [place], [place], [address] TROPONIN-I < 0.02 ng/mL (Normal) Comments: TROPONIN-I EXPECTED VALUES <0.05 NEGATIVE 0.06 - 0.59 AT RISK OF HI > OR = 0.60 SUGGEST HI :30 CBC (Auto) (37608) Comments: PATIENT WAS FASTINGPERFORMED BY: LabOffSite VISIONSaint Barnabas Behavioral Health CenterJctgaj6623 [facility] [id number] Platelets 165 {x10E3/uL} (Normal) Range: 150-379 RDW 13.8 % (Normal) Range: 12.3-15.4 MCHC 33.1 g/dL (Normal) Range: 31.5-35.7 MCH 31.2 pg (Normal) Range: 26.6-33.0 MCV 94 fL (Normal) Range: 79-97 Hematocrit 43.2 % (Normal) Range: 34.0-46.6 Hemoglobin 14.3 g/dL (Normal) Range: 11.1-15.9 RBC 4.59 {x10E6/uL} (Normal) Range: 3.77-5.28 WBC 6.6 {x10E3/uL} (Normal) Range: 3.4-10.8 :30 Metabolic Panel, Comments: PATIENT WAS FASTINGPERFORMED BY: LabOffSite VISIONSaint Barnabas Behavioral Health CenterRleonh3852 [facility] [id number] Information: [id number] Comprehensive (33678) ALT (SGPT) 14 [iU]/L (Normal) Range: 0-32 [...] mg/dL (Normal) Range: 65-99 :30 Lipid Panel (12547) Comments: PATIENT WAS FASTINGPERFORMED BY: [facility]quareAt[facility] [id number] LDL/HDL Ratio 3.6 {ratio_units} (Abnormal) Range: 0.0-3.2 [...] (HGB A1C) Comments: PATIENT WAS FASTINGPERFORMED BY: Abzena6370 [facility]comniFormerly [facility] [id number]; apt. 4-4 (29222) Hemoglobin A1c 5.8 % (Abnormal) Range: 4.8-5.6 Comments: . Pre-diabetes: 5.7 - 6.4 Diabetes: >6.4 Glycemic control for adults with diabetes: <7.0 72-Wav-814658:59 Urinalysis, Office (72780) UA - LEUKOCYTE ESTERASE Negative (Normal) UA - NITRITE Positive (Normal) URINE UROBILINGN FRANKO TIMED 2 mg/dL (Normal) UA - PROTEIN Negative mg/dL (Normal) UA - PH 5 (Abnormal) UA - BLOOD Negative (Normal) UA - SPECIFIC GRAVITY 1.020 (Normal) UA - KETONES Negative mg/dL (Normal) UA - BILIRUBIN Negative (Normal) UA - GLUCOSE Negative (Normal) 30-Vuf-54696:00 Anticardiolip Ab, IgA/G/M, Comments: PATIENT WAS FASTINGPERFORMED BY: CB [facility] Bkbzth6321 [facility] [id number] BY: TG [facility] CWL8773 [facility] [id number] Qn Anticardiolipin Ab,IgA,Qn <9 {APL_U/mL} (Normal) Range: [...] Positive: >20 - 80 High Positive: >80 08-Pfl-921093:37 Basic Metabolic Profile (BMP) Comments: Serial Specimen #1, #2 or #3? 1'TROP' Serial specimen #1, #2, #3, or #4: 1Test performed at:[facility] Xxtdxukwtf5[address] [place], [place] [address] GAP 7 (Normal) Range: 5-15 CO2 26.0 [...] Comments: Please note revised CREATININE reference range lypvlmiif37/22/2015. BUN 16 mg/dL (Normal) Range: 7-18 GLU 134 mg/dL (Abnormal) Range: 70-110 Comments: Fasting Glucose result greater than or equal to 126 mg/dLsuggests DIABETES MELLITUS per A.D.A. criteria. 69-Afz-449482:37 CBC W/Diff, Automated Comments: Test performed at:[facility] Bwmtanpywq[address] [place], [place] [address] Absolute Lymph 2.35 {X10_3/ul} (Normal) Range: 0.83-4.51 [...] 4.2-5.4 WBC 7.4 K/mm3 (Normal) Range: 4.4-11.0 34-Ywy-459125:37 CK-MB Quantitative and Index Comments: Serial Specimen #1, #2 or #3? 1'TROP' Serial specimen #1, #2, #3, or #4: 1Test performed at:[facility] Vnkeoygjzc0094 [facility] [place] [address] CPKMB 0.8 ng/mL (Normal) Range: 0.0-5.0 Comments: CK-MB and RI Interpretation MB Relative Index Non-AMI <or= 5 NA Indeterminate > 5 <or= 4 AMI > 5 > 4 CPK TOTAL 80 U/L (Normal) Range: 26-192 47-Nfe-188809:37 Troponin-I Comments: Serial Specimen #1, #2 or #3? 1'TROP' Serial specimen #1, #2, #3, or #4: 1Test performed at:[facility] Erwlytqnhb4290 [facility] [place] [address] TROPONIN-I < 0.02 ng/mL (Normal) Comments: TROPONIN-I EXPECTED VALUES <0.05 NEGATIVE 0.06 - 0.59 AT RISK OF HI > OR = 0.60 SUGGEST HI 50-Wda-987777:59 D-Dimer (08665) Comments: PATIENT NOT FASTINGPERFORMED BY: [facility] Zfltzzjdlh2483 [facility] [id number] BY: [facility] Raxvsy3054 [facility] [id number] D-Dimer 0.59 {mg/L_FEU} (Abnormal) Range: 0.00-0.49 Comments: In conjunction with a non-high clinical probability assessment, anormal (<0.50 mg/L FEU) result excludes deep vein thrombosis (DVT)and pulmonary embolism (PE) with high sensitivity. 37-Efh-48722:00 LIPID PANEL (71952) Comments: PATIENT WAS FASTINGPERFORMED BY: [employer] Smfskh8759 [facility] [id number] BY: TG [employer] PHW0500 [facility] [id number] LDL/HDL Ratio 3.1 {ratio_units} (Normal) Range: 0.0-3.2 [...] Cholesterol, Total 177 mg/dL (Normal) Range: 100-199 13-Cvq-927068:59 Protein S Profile Comments: PATIENT NOT FASTINGPERFORMED BY: PerspecSysVirtua BerlinHoaexwdrcb3979 [facility] [id number] BY: PerspecSysSanta Ana Health CenterKggrto7016 [facility] [id number] Inf ormation: [id number] (54668) Protein S-Functional 119 % (Normal) Range: 60-145 Protein S, Free 108 % (Normal) Range: 56-124 Protein S, Total 137 % (Normal) Range: 58-150 88-Ufm-057076:59 Protein C Profile Comments: PATIENT NOT FASTINGPERFORMED BY: PerspecSysVirtua BerlinKprlmgonof1201 [facility] [id number] BY: PerspecSysSaint Barnabas Behavioral Health CenterPpooup3411 [facility] [id number] (64471) Protein C-Functional 120 % (Normal) Range: 74-151 Protein C Antigen 104 % (Normal) Range: 70-140 18-Eep-86710:00 Homocysteine, Plasma Comments: PATIENT WAS FASTINGPERFORMED BY: [employer] Qspdfk0005 [facility] [id number] BY: TG [facility] HAN3103 [facility] [id number] (72386) Homocyst(e)ine, Plasma 11.2 umol/L (Normal) Range: 0.0-15.0 41-Ecy-754063:59 ANTITHROMBIN III ACTIVTY Comments: PATIENT NOT FASTINGPERFORMED BY: PerspecSys[address] [id number] BY: [employer] Npgtbe8157 [facility] [id number] (37101) Antithrombin Antigen 94 % (Normal) Range: 75-130 Antithrombin Activity 108 % (Normal) Range: 75-135 67-Mps-496797:59 CLOTTING FACTOR II Comments: PATIENT NOT FASTINGPERFORMED BY: PerspecSysJames Ville [address]367 [facility] [id number] BY: [employer] Jtuhnq7759 [facility]niFormer[facility], [facility] [id number] (59048) Factor II Activity 113 % (Normal) Range: 75-130 69-Khs-30165:00 Factor V Leiden (74326) Comments: PATIENT WAS FASTINGPERFORMED BY: [employer] Lgtnjt9831 [facility]Al[facility] [id number] BY: Pers[employer] TAG8721 [facility] [id number] Factor V Leiden FVNEG3 (Normal) Comments: Result: [...] in the workup for venous thrombosis include [id number] mutation in the factor II (prothrombin) gene,protein S and C deficiency, and antithromb in deficiencies.Anticardiolipin antibody and lupus anticoagulant analysismay be appropriate for certain patients, as well ashomocysteine levels. .Contact your local [facility] for information on how to orderadditional testing if desired. .Genetic counselors are available for health care* providers to discuss results at [phone] ([phone]). .Methodology:DNA analysis of the Factor V gene [...] Chavez, PhDTara Jhaveri, PhDNgozi Cardozo, PhD . 90-Exl-63829:00 MTHFR (94438) Comments: PATIENT WAS FASTINGPERFORMED BY: CB [facility] Masksc2761 [facility] [id number] BY: TG [facility] RIU0797 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 Compound heterozygosity for the H192Lxra V9059X variants is unlikely to be of clinical [...] discuss these results with healthcare providers at [phone]. .Methylenetetrahydrofolate reductase (MTHFR) is a ke y enzyme in thefolate pathway and is responsible for the metabolism of homocysteine.There are two common variants in the MTHFR gene, c.655C>T(p.Mmk247Mmz), referred to as C677T, and c.1286A>C (p.G vr774Xrw),referred to as R1975O. Individuals homozygous for C677T (two copiesof the variant), have decreased activity of the MTHFR enzyme and apredisposition to hyperhomocysteinemia, particularly when d eficient infolate. Hyperhomocysteinemia is a risk factor for venous thrombosisand coronary artery disease and is associated with an increased riskof open neural tube defects. The C677T variant reilly s notindependently increase risk of these conditions in the absence ofhyperhomocysteinemia. The Y7411D variant is not associated withelevated homocysteine levels unless a C677T variant is also present;h owever, the clinical significance of heterozygosity for both N732Mswi A7893Q is controversial. Population data suggest that these twovariants are not present on the same chromosome, but rare exceptionsh ave been reported of triple variant MTHFR genotypes (ie. homozygousfor one variant and heterozygous for the other). Homozygosity fktT503J has an estimated frequency of 10% to [...] Lady JA. Arch Pathol Lab Med 2007; 131(6):872-884.Marilin P et al. Felisa Giana 1995; 10(1):111- 113.Hickey SE et al. Giana Med 2013; 15(2):153-156.Juhi riley C et al. Obstet Gynecol 2011; 118(3):730-740.Jakob B et al. Eur J Epidemiol 2013; 28(8):621-647. .Dora Carrera, PhDSteffen Wilson, PhDAspen Orta, PhDShiela Chavez, MS, PhDTara Jhaveri, PhDNgozi Cardozo, PhD :52 HgA1C , Office (61959) HgA1C , Office 5.8 % (Normal) Range: 4.6 - 7.1 :31 CBC With Differential/Platelet Comments: PATIENT WAS FASTINGPERFORMED BY: LabCoSaint Barnabas Behavioral Health CenterSntvcm7917 [facility] [id number] Information: [id number] Immature Grans (Abs) 0.0 {x10E3/uL} (Normal) Range: [...] Panel (14) Comments: PATIENT WAS FASTINGPERFORMED BY: LabCoSaint Barnabas Behavioral Health CenterMqpvjh9295 [facility] [id number] ALT (SGPT) 18 [iU]/L (Normal) Range: 0-32 [...] Glucose, Serum 103 mg/dL (Abnormal) Range: 65-99 55-Bcf-271462:04 Urinalysis, Office (77952) UA - PH 6.0 (Normal) UA - LEUKOCYTE ESTERASE Negative (Normal) UA - NITRITE Negative (Normal) URINE UROBILINGN FRANKO TIMED 2 mg/dL (Normal) UA - PROTEIN Negative mg/dL (Normal) UA - BLOOD Negative (Normal) UA - SPECIFIC GRAVITY 1.025 (Normal) UA - KETONES Negative mg/dL (Normal) UA - BILIRUBIN Negative (Normal) UA - GLUCOSE Negative (Normal) 61-Hra-94008:51 POTASSIUM SERUM (86500) Comments: today; PATIENT NOT FASTINGPERFORMED BY: [facility] Inpnuy0847 [facility] [id number] Information: [id number] Potassium, Serum 3.8 mmol/L (Normal) Range: 3.5-5.2 9-Tju-119261:30 Basic Metabolic Profile (BMP) Comments: 'TROP' Serial specimen #1, #2, #3, or #4: 1'CKMB' Serial Specimen #1, #2 or #3? 1Test performed at:[facility] Ipxvpmmtak5534 [facility]. [place], [place] [address] GAP 3 (Abnormal) Range: 5-15 CO2 34.0 [...] 7-18 GLU 89 mg/dL (Normal) Range: 70-110 7-Wdh-649690:30 CBC W/Diff, Automated Comments: Test performed at:[facility] Xynbrwatlj5116 [facility] [place] [address] Absolute Lymph 2.01 {X10_3/ul} (Normal) [...] 4.2-5.4 WBC 6.0 K/mm3 (Normal) Range: 4.4-11.0 5-Yub-494761:30 CK-MB Quantitative and Index Comments: 'TROP' Serial specimen #1, #2, #3, or #4: 1'CKMB' Serial Specimen #1, #2 or #3? 1Test performed at:[facility] [address] [place] [address] CPKMB 0.8 ng/mL (Normal) Range: 0.0-5.0 Comments: CK-MB and RI Interpretation MB Relative Index Non-AMI <or= 5 NA Indeterminate > 5 <or= 4 AMI > 5 > 4 CPK TOTAL 64 U/L (Normal) Range: 26-192 4-Jmd-118105:30 D-Dimer Quantitative (DVT/PE) Comments: Test performed at:[facility] [address] [place] [address] D-DIMER QUANT 1.86 {FEU/ug/m} (Abnormal) Range: 0.27-0.49 Comments: D-Dimer ELEVATED (>0.49): Additional studies and clinicalassessments are indicated to conclude diagnosis of:Deep Vein Thrombosis (DVT) or Pulmonary Embolism (PE)CRITICAL VALUE REPEATED AND VERIFIED. CALLED TO SHRAVAN.RN07/23/14 1104 Ricci Delgado.RESULTS READ BACK BY SAME. :30 Troponin-I Comments: 'TROP' Serial specimen #1, #2, #3, or #4: 1'CKMB' Serial Specimen #1, #2 or #3? 1Test performed at:[facility] Dygwtjfcbq7808 [facility]. [place], [place] [address] TROPONIN-I < 0.02 ng/mL (Normal) Comments: TROPONIN-I EXPECTED VALUES <0.05 NEGATIVE 0.06 - 0.59 AT RISK OF HI > OR = 0.60 SUGGEST HI :18 HgA1C , Office (90456) HgA1C , Office 5.7 % (Normal) Range: 4.6 - 7.1 :18 Blood Glucose , Office (25010) Blood Glucose , Office 106 (Normal) 14-Rdf-275647:20 CBCD ALC 2.30 {X10_3/ul} (Normal) Range: 0.83-4.51 [...] 4.2-5.4 WBC 5.5 K/mm3 (Normal) Range: 4.4-11.0 81-Zhw-904174:20 MRSA+SAID SCRN See Note (Normal) Comments: S. AUREUS S. aureus NegativeMRSA MRSA Negative 16-Rqq-226770:20 UAC Comments: ORDER URINE CULTUREIF POSITIVE NITRITE [...] Yellow (Normal) :54 Blood Glucose , Office (97817) Blood Glucose , Office 123 (Normal) Comments: Not Fasting :54 HgA1C , Office (13428) HgA1C , Office 6.0 % (Normal) Range: 4.6 - 7.1 :31 POTASSIUM SERUM (21256) Comments: patient having drawn in 2 wks; PATIENT NOT FASTINGPERFORMED BY: [facility]CoSaint [facility]ab[facility] Behavioral Health CenterAmzewr3436 [facility] [id number] Information: [id number] Potassium, Serum 4.0 mmol/L (Normal) Range: 3.5-5.2 :20 Microscopic Examination Comments: PATIENT WAS FASTINGPERFORMED BY: [facility] Rzdmjm4615 [facility] [id number] Bacteria Few (Normal) Mucus Threads Present (Normal) [...] A POSITIVE (Normal) :20 URINALYSIS, W/ MICRO (90016) Comments: PATIENT WAS FASTINGPERFORMED BY: JERMAINE [facility]6370 [facility] [id number] Microscopic Examination See below: (Normal) Comments: Microscopic was indicated and was performed. Nitrite, Urine Negative (Normal) Urobilinogen,Semi-Qn 1.0 mg/dL (Normal) Range: 0.0-1.9 Bilirubin Negative (Normal) Occult Blood Negative (Normal) Ketones Negative (Normal) Glucose Negative (Normal) Protein Trace (Normal) WBC Esterase 2+ (Abnormal) Appearance Clear (Normal) Urine-Color Yellow (Normal) pH 6.5 (Normal) Range: 5.0-7.5 Specific [place] 1.023 (Normal) Range: 1.005-1.030 :20 METABOLIC PANEL, COMPREHENSIVE Comments: PATIENT WAS FASTINGPERFORMED BY: JERMAINE [employer] Otqttx0220 [facility] [id number] (83724) ALT (SGPT) 20 [iU]/L (Normal) Range: 0-32 [...] Glucose, Serum 106 mg/dL (Abnormal) Range: 65-99 70-Onj-15261:20 LIPID PANEL (22625) Comments: PATIENT WAS FASTINGPERFORMED BY: PerspecSysSaint Barnabas Behavioral Health CenterOnbcal1003 [facility] [id number] LDL/HDL Ratio 3.8 {ratio_units} (Abnormal) Range: 0.0-3.2 [...] MANUAL DIFF Comments: PATIENT WAS FASTINGPERFORMED BY: [facility]CoSaint Barnab[facility] Behavior[facility] Health CenterUcwxkf2213 [facility] [id number] Information: [id number] (31934) Immature Grans (Abs) 0.0 {x10E3/uL} (Normal) Range: [...] (Normal) Range: 3.4-10.8 :09 HgA1C , Office (10683) HgA1C , Office 5.8 % (Normal) Range: 4.6 - 7.1 :09 Blood Glucose , Office (85037) Blood Glucose , Office 129 (Normal) Comments: [...] (Normal) Range: 70-110 :17 HgA1C , Office (44283) HgA1C , Office 5.9 % (Normal) Range: 4.6 - 7.1 :17 Blood Glucose , Office (45551) Blood Glucose , Office 107 (Normal) :15 PROL 10.4 ng/mL (Normal) Comments: NORMAL REFERENCE RANGESFEMALENON- 2.2 - 30.3 ng/mL 8.1 - 347.6 ng/mLPOST- MENOPAUSAL 0.7 - 31.5 ng/mLMALE 2.5 - 17.4 ng/mLNEW TEST METHO D & REFERENCE RANGES NOVEMBER 09, 2011; ADDENDA: has f/u on 06/08/13, will review then 34-Vdu-10988:28 BILAT SCRN DIGITAL & CAD Radiology Report [...] be sent to the patient by the [facility] within 30 days. Approximately 10% of breast cancers are not detected by mammography. Anormal mammogram should not delay biopsy of a clinically suspiciousabnormality. Signed:Payton DuttaMarch 15, 2013 at 7:58:55 AM [id number] Signed GP/GP If you are the referring physician and would like to consult with theradiologist who provided this interpretation, please co ntact Unique Yusuf at [phone]. If this radiologist is unavailable, youwill be [...] Dictated on 03/15/13 0 758 by Damian FLYNN,DavidrieleTranscribed on 03/15/13 0836 by ITS IMPORTSign by Damian FLYNN,Aaron on 03/15/13 0837 Sign by: Aaron Salgado MD 47-Rnz-17991:25 Blood Glucose , Office (55898) Blood Glucose , Office 134 (Normal) :25 HgA1C , Office (41799) HgA1C , Office 5.8 % (Normal) Range: 4.6 - 7.1 7-Djo-262781:22 PELVIC (NON ) Radiology Report See Note [...] Salgado M.D.January 23, 2013 at 2:31:38 PM [id number] Signed GP/GP If you are the referring physician and would like to consult with theradiologist who provided this interpretati on, please contact Uniuqe Yusuf at [phone]. If this radiologist is unavailable, youwill be directed to another radiologist to assist. If you are a patient with a question regarding this report, pleasecontactyour referring physician directly. Professional Interpretation Provided By: [employer], Phone , These documents contain legally protected [...] destructionofthese documents. Dictated on 01/23/13 1431 by Laurita Salgado MDscribed on 01/24/13 1058 by ITS IMPORTSign by [...] size of the right kidney. The right aurjrgcabadbfn38.4 cm. Ambika l renal cortex. The right cortex measures 1.0 cm. Thereisa 1.1 cm x 1.0 cm x 0.9 cm cyst in the inferior pole. There is no righthydronephrosis. Left Kidney: Normal size of the left kidney. The left kidney .5cm. Normal renal cortex. The left cortex measures 1.9 cm. There is nodemonstrated renal mass or cyst. There is no left hydronephrosis. Aorta: Unremarkable. I.V.C.: The IVC is pa tent. There is no ascites. IMPRESSION:Fatty infiltration of the liver. The patient is status postcholecystectomy. Signed:Aaron Salgado M.D.January 23, 2013 at 2:2 8:11 PM [id number] Signed GP/GP If you are the referring physician and would like to consult with theradiologist who provided this interpretation, please contact Payton Yusuf at [phone]. If this radiologist is unavailable, youwill be directed to another radiologist to assist. If you are a patient with a question regarding this report, pleasecontactyour referring phys ician directly. Professional Interpretation Provided By: [employer], Phone , These documents contain legally protected [...] destructionofthese documents. Dictated on 01/23/13 1428 by Lurdes Salgado MDranscribed on 01/24/13 1040 by ITS IMPORTSign by [...] Salgado M.D.January 23, 2013 at 2:31:38 PM [id number] Signed GP/GP If you are the referring physician and would like to consult with theradiologist who provided this interpretati on, please contact Unique Yusuf at [phone]. If this radiologist is unavailable, youwill be directed to another radiologist to assist. If you are a patient with a question regarding this report, pleasecontactyour referring physician directly. Professional Interpretation Provided By: [employer], Phone , These documents contain legally protected [...] documents. Dictated on 01/23/13 1431 by Damian FLYNN,GabrieleTranscribed on 01/24/13 1042 by ITS IMPORTSign by Damian FLYNN,Aaron on 01/24/13 1043 Sign by: Aaron Salgado MD 79-Dpu-468649:11 CBC, Platelets & Auto Comments: PATIENT NOT FASTINGPERFORMED BY: [facility]CoSaint [facility]ab[facility] Health CenterRkluxd2530 [facility] [id number] Information: [id number] Diff (04460) Immature Grans (Abs) 0.0 {x10E3/uL} (Normal) Range: [...] (Normal) Range: 70-110 :33 HgA1C , Office (72811) HgA1C , Office 5.8 % (Normal) Range: 4.6 - 7.1 :53 METABOLIC PANEL, COMPREHENSIVE Comments: PATIENT WAS FASTINGPERFORMED BY: [facility]CoSaint Barnabas Behavior[facility] Health CenterDoncvr7591 [facility] [id number] (18953) ALT (SGPT) 19 [iU]/L (Normal) Range: 0-32 [...] Glucose, Serum 88 mg/dL (Normal) Range: 65-99 26-Mnj-290234:53 CBC WITH MANUAL DIFF Comments: PATIENT WAS FASTINGPERFORMED BY: [facility]CoSaint Barnab[facility] Health CenterOrnnil9715 [facility] [id number] Information: [id number] (91336) Immature Grans (Abs) 0.0 {x10E3/uL} (Normal) Range: [...] 3.77-5.28 WBC 7.5 {x10E3/uL} (Normal) Range: 4.0-10.5 35-Dzq-618941:53 LIPID PANEL (17717) Comments: PATIENT WAS FASTINGPERFORMED BY: [facility]CoSaint Barnab[facility] Behavior[facility] Health CenterHrjoxn6001 [facility] [id number] LDL/HDL Ratio 3.3 {ratio_units} (Abnormal) Range: 0.0-3.2 [...] Salgado M.D.January 18, 2012 at 10:04:04 AM [id number] Signed GP/GP If you are the referring physician and would like to consult with theradiologist who pro vided this interpretation, please contact Unique Yusuf at [phone]. If this radiologist is unavailable, youwill be directed to another radiologist to assist. If you are a patient with a q uestion regarding this report, pleasecontactyour referring physician directly. Professional Interpretation Provided By: [employer], Phone , Dictated on 01/18/12 0759 by Damian FLYNN,Lauritascribed on 01/18/12 1010 by ITS IMPORTSign by Aaron Salgado MD on 01/18/12 1011 Sign by: Aaron Salgado MD 9-Bex-342839:43 MICROALBUMIN: CREATININE RATIO Comments: PATIENT WAS FASTINGPERFORMED BY: [facility] Center6370 [facility] [id number] (96726) AND (22159) Microalb/Creat Ratio 1.4 {mg/g_creat} (Normal) Range: 0.0-30.0 Microalbumin, Urine 2.3 ug/mL (Normal) Range: 0.0-17.0 Creatinine, Urine 167.9 mg/dL (Normal) Range: 15.0-278.0 :43 METABOLIC PANEL, COMPREHENSIVE Comments: PATIENT WAS FASTINGPERFORMED BY: JERMAINE Piqqual70 [facility] RegionVirtuaGymAtrium Health [facility] [id number] (65779) ALT (SGPT) 24 [iU]/L (Normal) Range: 0-40 [...] Glucose, Serum 95 mg/dL (Normal) Range: 65-99 6-Yxk-742665:43 LIPID PANEL (19146) Comments: PATIENT WAS FASTINGPERFORMED BY: [employer]6370 [facility] [id number] LDL/HDL Ratio 3.2 {ratio_units} (Normal) Range: 0.0-3.2 LDL Cholesterol Calc 115 mg/dL (Abnormal) Range: 0-99 VLDL Cholesterol José Luis 29 mg/dL (Normal) Range: 5-40 HDL Cholesterol 36 mg/dL (Abnormal) Comments: According to ATP-III Guidelines, HDL-C >59 mg/dL is considered anegative risk factor for CHD. Triglycerides 146 mg/dL (Normal) Range: 0-149 Cholesterol, Total 180 mg/dL (Normal) Range: 100-199 5-Csi-802765:43 CBC WITH MANUAL DIFF Comments: PATIENT WAS FASTINGPERFORMED BY: [facility]CoSaint [facility]ab[facility] CenterCtmmmx4380 [facility] [id number] Information: [id number] (05912) Immature Grans (Abs) 0.0 {x10E3/uL} (Normal) Range: [...] population. WBC 5.9 {x10E3/uL} (Normal) Range: 4.0-10.5 41-Hmj-198261:18 HgA1C , Office (54254) HgA1C , Office 6.1 % (Normal) Range: 4.6 - 7.1 06-Aaz-655114:18 Blood Glucose , Office (97834) Blood Glucose , Office 125 (Normal) 97-Eku-671543:00 Thin prep Pap Comments: Source.............Cervical;EndocervicalNo. of containers..01 CYTYC Thin Prep VialPATIENT NOT FASTINGPERFORMED BY: LabCo[address] [place] [id number] Information: [id number] (33394) Note: PAPSMR (Normal) Comments: The Pap smear [...] ; Routine gynecolog ical examina Imelda Batres Water Pump Operator (ASC) 99-Dae-96730:00 THU LEZAMA DIGITAL & CAD Radiology Report [...] suspiciousabnormality. Dictated on 11/03/10 0608 by Damian FLYNN,Glairanscribed on 11/04/10 0619 by ITS IMPORTSign by Aaron Salgado MD on 11/04/10 0620 Sign by: __ Aaron Salgado MD 6-Day-988527:24 CBC & PLATELETS (AUTO) Comments: PATIENT NOT FASTINGPERFORMED BY: [facility] Zjwgwx2464 [facility] [id number] Information: [id number]; appt 11/28/10 (02083) MCH 31.6 pg (Normal) Range: 27.0-34.0 MCHC [...] 45 63 >63Performed at: S[facility] - [employer] [address] [place], [place] [address]Gri Director: Stefano Mace PhD, Phone: [phone] HDL SIZE <TEST NOT PERFORMED> (Normal) INSULIN [...] TOT 209 mg/dL (Abnormal) LIPIDS . (Normal) 3-Dij-412550:12 CULT, DP WOUND Comments: COMMENTS: CULTURE, SENSITIVITY,AREOBES, [...] STRIMETHOPRIM/SULFAMETHOXAZ $ <=10 SVANCOMYCIN $ 1 S 8-Ygq-158623:10 CBC Comments: COMMENTS: AC ROOM 6 HCT [...] 1 S :56 Blood Glucose , Office (21292) Blood Glucose , Office 102 (Normal) :56 HgA1C , Office (44075) HgA1C , Office 6.1 % (Normal) Range: 4.6 - 7.1 :49 MICROALBUMIN: CREATININE Comments: PATIENT WAS FASTINGPERFORMED BY: Fede [employer] [facility] [id number] BY: JERMAINE [facility] [id number] RATIO (36074) AND (53517) Microalb/Creat Ratio 2.3 {mg/g_creat} (Normal) Range: 0.0-30.0 Microalbumin, Urine 3.4 ug/mL (Normal) Range: 0.0-17.0 Creatinine, Urine 150.2 mg/dL (Normal) Range: 15.0-278.0 :49 LIPOPROTEIN, BLD, BY NMR Comments: PATIENT WAS FASTINGPERFORMED BY: [employer]0 [facility] [id number] BY: [employer] [facility] RegionDublin [place] [id number] Information: ADD [id number] AND DRAW FEE 99 3254 (33874) LP-IR 83 Comments: The LP-IR Score combines [...] (Abnormal) Choleste 220 mg/dL galina, (Abnormal) Total 41-Qrm-35447:49 METABOLIC PANEL, Comments: PATIENT WAS FASTINGPERFORMED BY: Fede [employer] Prs9355 [facility] [id number] BY: LabMunson [facility] Center6370 [facility] [id number] COMPREHENSIVE (04346) ALT (SGPT) 22 [iU]/L (Normal) Range: 0-40 [...] Glucose, Serum 107 mg/dL (Abnormal) Range: 65-99 61-Pea-87675:49 LIPID PANEL (45992) Comments: PATIENT WAS FASTINGPERFORMED BY: Fede [employer] Axl6263 Tom[facility] HospitaleiT[facility] [id number] BY: JERMAINE [facility] Zkigpp9406 [facility] [id number] LDL Cholesterol Calc 135 mg/dL (Abnormal) Range: 0-99 LDL/HDL Ratio 4.1 {ratio_units} (Abnormal) Range: 0.0-3.2 VLDL Cholesterol José Luis 52 mg/dL (Abnormal) Range: 5-40 HDL Cholesterol 33 mg/dL (Abnormal) Comments: According to ATP-III Guidelines, HDL-C >59 mg/dL is considered anegative risk factor for CHD. Triglycerides 261 mg/dL (Abnormal) Range: 0-149 Cholesterol, Total 220 mg/dL (Abnormal) Range: 100-199 92-Pof-70005:49 CBC WITH MANUAL DIFF Comments: PATIENT WAS FASTINGPERFORMED BY: Fede [employer] Zuj2248 [facility] [id number] BY: JERMAINE LabCoSaint Barnabas Behavioral Health CenterMuhzgl9790 [facility] [id number] (03889) Baso (Absolute) 0.1 {x10E3/uL} (Normal) Range: 0.0-0.2 [...] 3.80-5.10 WBC 6.7 {x10E3/uL} (Normal) Range: 4.0-10.5 3-Eas-101336:35 MARYJANE CULTURE-OTHER (06310) Comments: PATIENT NOT FASTINGPERFORMED BY: [facility]6370 [facility] [id number] Information: SRC:THRT [id number] Result 1 RRF (Normal) Comments: Routine respiratory bin Upper Respiratory Culture Final report (Normal) 23-Jul-20098:07 Rapid Strep Test, Office (59401) Rapid Strep Test, Negative (Normal) Office 27-Feb-20098:2 Potassium, Serum 3.8 mmol/L (Normal) Comments: PATIENT WAS FASTINGPERFORMED BY: [facility]6370 [facility] [id number] Range: 3.5-5.2 18-Ent-795953:00 BILAT SCRN DIGITAL & CAD Radiology Report See Note (Normal) Comments: Exam Number: [id number] MAMMOGRAM, BILATERAL SCREENING DIGITAL AND CAD HISTORYRoutine [...] werealso examined with computer-aided detection s oftware ([employer] Reported By: KENNA SWEET M.D. 27-Feb-20098:24 Lipid Panel (78008) Comments: PATIENT WAS FASTINGClinical Information: ADD [id number], [id number] PERFORMED BY: [address] [id number] Cholesterol, Total 224 mg/dL (Abnormal) Range: 100-199 HDL Cholesterol 31 mg/dL (Abnormal) Comments: According to ATP-III Guidelines, HDL-C >59 mg/dL is considered anegative risk factor for CHD. LDL Cholesterol Calc 122 mg/dL (Abnormal) Range: 0-99 LDL/HDL Ratio 3.9 {ratio_units} (Abnormal) Range: 0.0-3.2 Triglycerides 354 mg/dL (Abnormal) Range: 0-149 VLDL Cholesterol José Luis 71 mg/dL (Abnormal) Range: 5-40 49-Imu-073885:16 JESUS ALBERTO (ANTINUCLEAR ANTIBODY) Comments: PATIENT NOT FASTINGPERFORMED BY: [employer] [facility] [id number] (32749) Antinuclear Antibodies Direct Negative (Normal) 97-Rjj-410290:16 C-REACTIVE PROTEIN (49799) Comments: PATIENT NOT FASTINGPERFORMED BY: [employer] Wbxlhx7833 [facility] [id number] C-Reactive Protein, Quant 8.0 mg/L (Abnormal) Range: 0.0-4.9 45-Ofm-839096:16 CBC (AUTO) (65615) Comments: PATIENT NOT FASTINGPERFORMED BY: [employer] Hztpol2536 [facility] [id number] Hematocrit 42.4 % (Normal) Range: 34.0-44.0 Hemoglobin 14.4 g/dL (Normal) Range: 11.5-15.0 MCH 31.9 pg (Normal) Range: 27.0-34.0 MCHC 34.0 g/dL (Normal) Range: 32.0-36.0 MCV 94 fL (Normal) Range: 80-98 Platelets 160 {x10E3/uL} (Normal) Range: 140-415 RBC 4.52 {x10E6/uL} (Normal) Range: 3.80-5.10 RDW 14.1 % (Normal) Range: 11.7-15.0 WBC 7.6 {x10E3/uL} (Normal) Range: 4.0-10.5 26-Crj-788319:16 Folate (79665) Comments: PATIENT NOT FASTINGPERFORMED BY: Lab[address] RoadDublin [place] [id number] Folate (Folic Acid), Serum 17.4 ng/mL (Normal) Comments: Indeterminate: 3.4 - 5.4 Deficient: <3.4 07-Imn-896952:16 METABOLIC PANEL, COMPREHENSIVE Comments: PATIENT NOT FASTINGPERFORMED BY: LabCoSaint Barnabas Behavioral Health CenterUiwrvd7542 [facility] [id number] (09360) A/G Ratio 1.2 (Normal) Range: 1.1-2.5 Albumin, [...] Sodium, Serum 142 mmol/L (Normal) Range: 135-145 20-Vvn-835127:16 RHEUMATOID FACTOR-QUANT (63422) Comments: PATIENT NOT FASTINGPERFORMED BY: [employer] TrendsAnd[place] 8013570 [facility] [id number] RA Latex Turbid. 9.3 {IU/mL} (Normal) Range: 0.0-13.9 82-Frp-300585:16 SED RATE ERYTHROCYTE (94303) Comments: PATIENT NOT FASTINGPERFORMED BY: LabAndrea Ville 8013570 [facility] [id number] Sedimentation Rate-Westergren 21 mm/h (Normal) Range: 0-30 88-Frc-981865:16 TSH (59054) Comments: PATIENT NOT FASTINGPERFORMED BY: [facility]son [facility] Center6370 [facility] [id number] TSH 2.690 {uIU/mL} (Normal) Range: 0.450-4.500 64-Pgm-174338:16 VITAMIN B-12 (CYANOCOBALAMIN) Comments: PATIENT NOT FASTINGPERFORMED BY: [place] 7506270 [facility] [id number] (57269) Vitamin B12 348 pg/mL (Normal) Range: 211-911 23-Jan-20099:35 Lipid Panel (82487) Comments: PATIENT WAS FASTINGClinical Information: ADD [id number], [id number] PERFORMED BY: [address] [id number] Cholesterol, Total 208 mg/dL (Abnormal) Range: 100-199 HDL Cholesterol 32 mg/dL (Abnormal) Comments: According to ATP-III Guidelines, HDL-C >59 mg/dL is considered anegative risk factor for CHD. LDL Cholesterol Calc 124 mg/dL (Abnormal) Range: 0-99 LDL/HDL Ratio 3.9 {ratio_units} (Abnormal) Range: 0.0-3.2 Triglycerides 261 mg/dL (Abnormal) Range: 0-149 VLDL Cholesterol José Luis 52 mg/dL (Abnormal) Range: 5-40 46-Irp-963137:47 HgA1C , Office (56468) HgA1C , Office 5.8 % (Normal) Range: 4.6 - 7.1 :47 Blood Glucose , Office (51221) Blood Glucose , Office 128 (Normal) :43 Urinalysis, Office (76314) UA - LEUKOCYTE ESTERASE Trace (Normal) UA [...] Indication: Acute sinusitis Planned Observations LIPID PANEL (03590)Indication: Mixed hyperlipidemia On: 5-Mlu-911083:45 Request Platelet 26104 (citrate, nonclumping tube)Indication: Thrombocytopenia, unspecified On: :19 Request Metabolic Panel, Comprehensive (18508)Indication: Benign essential hypertension On: 71-Iwi-587753:46 Request MICROALBUMIN: CREATININE RATIO (86106) AND (02230)Indication: Benign essential hypertension On: 75-Vyl-842724:45 Request URINALYSIS (37451)Indication: Benign essential hypertension On: :45 Request CBC WITH MANUAL DIFF (08497)Indication: Benign essential hypertension On: :45 Request Platelet Count, Citrated (40551)Indication: Thrombocytopenia, unspecified On: :11 Request LIPOPROTEIN, BLD, BY NMR (69617)Indication: Mixed hyperlipidemia On: :07 Request Lipase (85494)Indication: Abdominal pain On: 66-Owa-485254:24 Request Comments: add to hospital labs. Amylase (73007)Indication: Abdominal pain On: :24 Request Comments: add to hospital labs. Antiphospholipid atb (09175)Indication: Pulmonary emboli On: :27 Request ANTICOAG ANTTHROMB III & ASSAY (79165)Indication: Pulmonary emboli On: :27 Request METABOLIC PANEL, COMPREHENSIVE (61833)Indication: Benign essential hypertension On: :37 Request Comments: in three months (approximately) CBC with auto diff (63770)Indication: Benign essential hypertension On: :37 Request Comments: in three months (approximately) Troponin I (02522)Indication: Chest pain at rest On: : Request CPK MB FRACTION (93336)Indication: Chest pain at rest On: : Request CREATINE KINASE TOTAL (02041)Indication: Chest pain at rest On: : Request D-Dimer (77672)Indication: Chest pain at rest On: :00 Request Metabolic Panel, Basic (36671)Indication: Chest pain at rest On: :58 Request CBC (Auto) (69981)Indication: Chest pain at rest On: :58 Request URINALYSIS, W/ MICRO (54013)Indication: Benign essential hypertension On: :29 Request METABOLIC PANEL, COMPREHENSIVE (63574)Indication: Benign essential hypertension On: :29 Request LIPID PANEL (21622)Indication: Benign essential hypertension On: :29 Request CBC W/AUTO DIFF WBC (21779)Indication: Benign essential hypertension On: :29 Request URINALYSIS (29789)Indication: UTI (lower urinary tract infection) On: :49 Request LIPID PANEL (28012)Indication: Benign essential hypertension On: :27 Request CBC WITH MANUAL DIFF (17128)Indication: Thrombocytopenia, unspecified On: :27 Request METABOLIC PANEL, COMPREHENSIVE (69847)Indication: Benign essential hypertension On: :27 Request TSH (THYROID STIMULATING HORMONE) (01644)Indication: Post-menopausal bleeding On: :37 Request PROLACTIN (63848)Indication: Post-menopausal bleeding On: :37 Request HEPATIC FUNCTION PANEL (04401)Indication: Hyperglyceridemia On: :05 Request LIPOPROTEIN, BLD, BY NMR (35380)Indication: Hyperglyceridemia On: :04 Request CBC, Platelets & Auto Diff (91033)Indication: Thrombocytopenia, unspecified On: :04 Request Comments: citrate tube Potassium Serum (61796)Indication: Hypokalemia On: 35-Uom-072083:36 Request Planned Encounters Medical; JULIANNEP Pre Wellness Exam (DB Nurse) - On: 26-Jul-2018 8:00 [facility] SUZY [place] Medical; [facility]ness Exam (Doctor) - On: 16-Aug-2018 8:00 [facility] Kelly Hannah MD, MD, Dana M Planned Procedures EKG ([id number])By: Kelly Hannah MD On: 02-Dec-2017 Intent Kelly Hannah MD Radiology - Foot - LeftBy: Brielle On: 12-Aug-2017 Intent Kelly FLYNN MD, Dana M TDAP VACCINE >7 IM ([id number])By: On: 22-Jul-2017 Intent Kelly Hannah MD, MD, Dana Comments: tdap 0.5mL prefilled syringelot:[id number]:10/2019L DELT IMpt tolerated wellAD AIR 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 M MAMMOGRAM BREAST BILATERAL SCREENING On: 02-Apr-2017 Intent DIGITAL ([id number])By: Kelly Hannah MD, MD, Dana M Kenalog Injection, 10 mgm On: 15-Feb-2017 Intent (J3301)By: Kelly Hannah MD Comments: lot numer [id number] 05/08 eliot [id number] 06/21/18 Kelly Hannah MD Echo CompleteBy: Kelly Hannah MD On: 10-Sep-2016 Intent Kelly Hannah MD Comments: rule out pericarditis and ? pericardial fluid EKG ([id number])By: Kelly Hannah MD On: 04-Sep-2016 Intent Kelly Hannah MD Comments: see scanned document of test done to see results reviewed today with patient Bone Density StudyBy: Brielle FLYNN, On: 09-Jun-2016 Intent Kelly Hernandez MD Kenalog Injection, 10 mgm On: 21-Apr-2016 Intent ([id number])By: Kelly Hannah MD Comments: buupivacaine lot [id number] 06-21-17 kenalog [id number] 09-05 Kelly Hannah MD DOPPLER ULTRASOUND OF RIGHT UPPER On: 20-Apr-2016 Intent EXTREMITY FOR VENOUS THROMBOEMBOLISM ([id number])By: Kelly Hannah MD, MD, Dana M MAMMOGRAM, SCREENING, BOTH BREAST On: 27-Feb-2016 Intent ([id number])By: Kelly Hannah MD, MD, Dana M Venous Doppler - BothBy: Brielle FLYNN, On: 06-Dec-2015 Intent Kelly Hernandez MD Comments: lower legs rule out DVT ADMINISTRATION OF INFLUENZA VIRUS On: 18-Apr-2015 Intent VACCINE ([id number])By: Kelly Hannah MD Comments: Lot:[id number]:IMLocation:Rt deltoiiddose: .5mlGiven by:Kelly Potter MD FLU VAC, SPLIT, >3 YEARS, INTRAMUSC On: 18-Apr-2015 Intent ([id number])By: Kelly Hannah MD Comments: Lot #:[id number] date:Amount given:0.5mlRoute: IMSite given:L DltdGiven by: Peyton CHAMPION and ABN signed Quad Flu Kelly Hannah MD BILATERAL MAMMOGRAMS ([id number])By: On: 05-Nov-2014 Intent Kelly Hannah MD, MD, Dana M CT - Chest (IV Contrast Needed)By: On: 23-Jul-2014 Intent Kelly Hannah MD, MD, Dana M COMPUTED TOMOGRAPHY ANGIOGRAPHY OF On: 23-Jul-2014 Intent CHEST WITH AND WITHOUT CONTRAST Comments: rule out PE ([id number])By: Kelly Hannah MD, MD, Dana M EKG ([id number])By: Lindsey Verde DO On: 05-Jul-2014 Intent Comments: sinus johanny with no chg MAMMOGRAM, SCREENING, BOTH BREAST On: 26-Apr-2014 Intent ([id number])By: Kelly Hannah MD, MD, Dana M BILATERAL MAMMOGRAMS ([id number])By: On: 27-Mar-2014 Intent Kelly Hannah MD, MD, Kelly Cristina IMMUNIZ ADMNIN, 1 VAC, SNGL/COMBO On: 27-Mar-2014 Intent ([id number])By: Kelly Hannah MD Comments: Lot #[id number]-[id number] dltd, IMDose prefilled syringegiven by:MLong, LPNVIS and ABN signed Kelly Hannah MD FLU VAC, SPLIT, >3 YEARS, INTRAMUSC On: 27-Mar-2014 Intent ([id number])By: Kelly Hannah MD, MD, Dana M Eprescribed prescriptions ([id number])By: On: 10-Oct-2013 Intent Kelly Hannah MD, MD, Dana M Phenergan Injection, up to 50 mg On: 22-Sep-2013 Intent (J2550)By: Nona Whiting CNP Comments: [id number], IM Nyla, AIR 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 INFUSION, NORMAL SALINE SOLUTION , On: 22-Sep-2013 Intent 1000 CC (Special Coverage Instructions Apply. See MCM: 2049) ([id number])By: Nona Whiting CNP HYDRATION IV INFUSION, INIT On: 22-Sep-2013 Intent ([id number])By: Nona Whiting CNP Eprescribed prescriptions ([id number])By: On: 10-Jul-2013 Intent Nathalie Nicole Breast Screening - BilateralBy: On: 06-Feb-2013 Intent Kelly Hannah MD, MD, Kelly SOLANO ADMNIN, 1 VAC, SNGL/COMBO On: 06-Feb-2013 Intent ([id number])By: SUZY Spencer [facility] [place] ([id number])By: Tj, On: 06-Feb-2013 Intent SUZY Ultrasound - Abdomen Complete & On: 18-Jan-2013 Intent PelvisBy: Nona Whiting CNP EKG ([id number])By: Kelly Hannah MD On: 12-Jul-2012 Intent Kelly Hannah MD Comments: see scanned document of test done to see results reviewed today with patient Eprescribed prescriptions ([id number])By: On: 12-Jul-2012 Intent 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 [employer] 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, Nyla L MAMMOGRAM, SCREENING, BOTH BREASTS On: 06-Oct-2011 Intent ([id number])By: Kelly Hannah MD Comments: 11-04-11 Kelly Hannah MD MAMMOGRAM, SCREENING, BOTH BREASTS On: 28-Nov-2010 Intent ([id number])By: Kelly Hannah MD, MD, Dana M MAMMOGRAM, SCREENING, BOTH BREASTS On: 23-Oct-2010 Intent ([id number])By: Kelly Hannah MD, MD, Dana M EEGBy: Lindsey Verde DO On: 20-Aug-2010 Intent EKG ([id number])By: Kelly Hannah MD On: 20-Dec-2009 Intent Kelly Hannah MD EKG ([id number])By: Kelly Hannah MD On: 17-Jan-2009 Intent Kelly Hannah MD MAMMOGRAM, SCREENING, BOTH BREASTS On: 17-Jan-2009 Intent ([id number])By: Kelly Hannah MD, MD, Dana M Pulse Oximetry ([id number])By: Yung On: 04-Jul-2008 Intent Gabriela Comments: 98% Phenergan Injection, up to 50 mg On: 25-Apr-2008 Intent (J2550)By: Nona Whiting CNP Comments: 25mg given IMAmt: 1mlLot: [id number]: 03/2010Route: IMSite: left hipTolerated: wellGiven By: NATASHA Plata INFUSION, NORMAL SALINE SOLUTION , On: 25-Apr-2008 Intent 1000 CC (Special Coverage Comments: IV Therapy initiated (Hamzah Black LPN)22G, 1inchSite: right wristTolerated: wellB. NATASHA Mckinnon Instructions Apply. See MCM: 2049) ([id number])By: Nona Whiting CNP HYDRATION IV INFUSION, INIT On: 25-Apr-2008 Intent ([id number])By: Nona Whiting CNP FLU VAC, SPLIT, >3 YEARS, INTRAMUSC On: 21-May-2006 Intent ([id number])By: SUZY Spencer IMMUNIZ ADMNIN, 1 VAC, SNGL/COMBO On: 21-May-2006 Intent ([id number])By: SUZY Spencer Planned Medications INFUSION, NORMAL SALINE [...] Instructions Indication: Depression Encounters Office Visit On: 03-May-2018 13:28 [facility] [...] for Tdap vaccination (Renamed from Need for ttmglfdofm-kwvecpw-mixxncchi (Tdap) vaccine, adult/adolescent), Thrombocytopenia, unspecified [facility] [...] feels well with minor complaints (very stressed, holgertoza is an issue with the insurance, so [...] Nutrition: balanced diet and supplemental vitamins. The tn dical issues the patient is following up [...] regimen and not considered effective by patient (jessicarerancho ). Patient sleeps 7 hours per night. [...] [facility] End: 19-Apr-2006 14:22 Payers SARAHA/MAGDALENE ESCUDERO; jelena guarantor
--- OUTSIDE RECORDS SUMMARY | 2018-07-14 07:32 | XMS RPT_ITS | Continuity of Care Document ---
:1950 Author Organization [facility] Address [facility] [facility] [address] [place] [address] Phone Care Team Providers Name Role Phone [...] depression lost job was in . lost [employer] St[employer] and she has to drive around. life withsomeone OCD, hoarder. on ambien for sleep per Dr. coates. Wellbutrin start but had insomni a in past. working with [employer]. doing okay on incresae welbutrin.tried Effexor, paxil [...] adipex and topamax. 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 got [...] 0 days Quantity: 30 {Tablet} Refills: 3 Ordered:24-May-2018 Kelly Hannah MD, MD, Dana M Start : 24-May-2018 Active Comments:thirty ALIGN (Oral Capsule) 1 (one) [...] 18-Apr-2015 End : 19-Apr-2015 Inactive BD Disp Bassett 30G X 1/2 Miscellaneous 1 (one) Misc [...] needed for 30 days Refills: 0 Ordered:30-Jul-2009 USZY Spencer Start : 30-Jul-2009 End : 29-Aug-2009 Inactive Comments:Medication taken as needed. called to [facility] 07-30-09 erussell disp 4 ounces no refills [...] Extended Release) 1 (one) Tablet ER at [facility] for 14 days for 0 days Quantity: 14 {Tablet_ER} Refills: 0 Ordered:02-May-2010 SUZY Spencer Start : 20-Dec-2009 End : 02-May-2010 Inactive NYSTATIN, 945335ZVSK/ML (Mouth/Throat Suspension) 15 Suspension qid swish and swallow for 0 days Quantity: 450 {Milliliter} Refills: 0 Ordered:20-Aug-2010 Suzette Black LPN Start : 04-Aug-2010 End : 20-Aug-2010 Inactive PANTOPRAZOLE SODIUM, 40MG (Oral Tablet Delayed Release) 1 (one) Tablet DR daily for 0 days Quantity: 30 {Tablet} Refills: 6 Ordered:06-Dec-2015 SUZY Spencer Start : 20-Apr-2015 End : 06-Dec-2015 Inactive Pen Bassett 5/16 31G X 8 MM Miscellaneous 1 [...] Leanne Marie Start : 29-Jul-2009 Inactive ZOSTAVAX, 28929CVL/0.65ML (Subcutaneous Solution Reconstituted) uad For Solution one [...] in hospital and 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 ppi and carafate helping. [...] for Tdap vaccination (Renamed from Need for lmumjcnrmg-paojhoi-ubuovkcey (Tdap) vaccine, adult/adolescent) (Z23, V06.1) Status: Resolved [...] Comments: not think needs atb yet. [facility] when need to call for [facility] Status: Resolved as of 22-Jul-2017 WWV V73.21 Comments: scope in last 5 years Status: Inactive as of 06-Feb-2013 Procedures Procedure Dates Details appendectomy 1999 Completed cholecystectomy 1980 Completed D and C Completed Hysterectomy; Total Completed Comments: 2013 Knee Replacement, Total Completed Comments: 2007, 2013 bilateral LEFT HEART CARDIAC CATH (83602) Completed Comments: Dr. Alexander nasal abscess I and D 04-30 Completed Date Value Details 23-May-2018 Brain W/WO Contrast Result: Comments: See Note; NOTES: [facility] Imaging Services [address] [place] [address] Brain W/WO Contrast MR#: [id number] Acct: [id number] Name: DIANA ESCUDERO OLGA Rep #: [id number] : 1950 F 68 From: Jimmy Kang MD PCP: Kelly Hannah MD Status: REG CLI Study: Brain W/WO Contrast Date of Exam: 05/23/18 Exam# [id number] Ordering Dr: Kelly Hannah MD STUDY: MRI [...] rvice support , CC: Kelly Hannah MD Mobile Web Application Developer: Signed 19-May-2018 Brain/Head without Contrast Result: Comments: See Note; NOTES: [facility] Imaging Services [address] [place] [address] Brain/Head without Contrast MR#: [id number] Acct: [id number] Name: DIANA ESCUDERO Rep # : [id number] : 1950 F 68 From: Kalia Galan PCP: Kelly Hannah MD Status: REG ER Study: Brain/Head without Contrast Date of Exam: 05/19/18 Exam# [id number] Ordering Dr: Puneet Johnson MD STUDY: C [...] CC: Kelly Hannah MD; Puneet Johnson MD Mobile Web Application Developer: Signed 19-May-2018 Chest 1 View Result: Comments: See Note; NOTES: [facility] Imaging Services [address] [place] [address] Chest 1 View MR#: [id number] Acct: [id number] Name: DIANA ESCUDERO Rep #: [id number] : 1950 F 68 From: Aaron Salgado MD PCP: Kelly Hannah MD Status: REG ER Study: Chest 1 View Date of Exam: 05/19/18 Exam# [id number] Ordering Dr: Puneet Johnson MD STUDY: X-RAY [...] Aaron Salgado MD at 8:13 EST Tel [phone], Service support , CC: Kelly Hannah MD; uPneet Johnson MD Mobile Web Application Developer: Signed 03-Mar-2018 Inital Evaluation (1) - PT Result: Comments: See Note; NOTES: [facility] [place] [address] Fax REHABILITATION SERVICES INITIAL EVALUATION MR#: [id number] Acct: [id number] Name: DIANA ESCUDERO Rep #: [id number] : 1950 68 From: Lazaro Jackson DPT [...] stabing pain (8/10) at rest. 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 Please let me know if there are questions or concerns regarding this plan of care. Physician Signature: Date: <Electronically signed by Lazaro Jackson DPT&amp ;#62; 03/03/18 1340 CC: GENOVEVA Myers; Kelly Hannah MD CLS Signed For Medicare only, by signing this I certify the plan of care. Physicians Signature Date 16-Feb-2018 12 Lead Electrocardiogram Result: Comments: See Note; NOTES: [facility] Cardiovascular Services [address] [place] [address] 12 Lead EKG 02/14/18 1459 MR#: [id number] Acct: [id number] Name: DIANA ESCUDERO OLGA Rep #: [id number] : 1950 68 From: Harris Brandt MD [...] Int : 401 ms Sinus bradycardia Inferior MT, age undeterm ined, cannot be excluded Confirmed by KEVIN FLYNN, HARRIS ([id number]), film or videotape editor SHIELA DOWELL (56) on 02/16/2018 1:34:57 PM Referred By: BRIEN Confirmed By:HARRIS BRANDT MD 02/16/18 1335 Date __ Harris Brandt MD CC: Kelly Hannah MD; Kasi Worley MD Signed 15-Feb-2018 Emergency Department Summary Result: Comments: See Note; NOTES: [facility] Medical Records Department [address] [place] [address] Emergency Department Summary 02/14/18 1636 MR#: [id number] Acct: [id number] Name: DIANA ESCUDERO Rep #: [id number] : 1950 68 From: Kasi Worley MD [...] score 1. This note was generated with NextCloud dictation software. It may contain incorrect words, [...] your Primary Care Provider. Call [facility] ([phone]) or report to the closest Emergency Room. Call 911 if necessary. 02/15/18 0046 <Electronically signed by Jose Daniel Worley MD> Date Kasi Worley MD Cosigner Signature (If Indicated): Date CC: Kelly Hannah MD 14-Feb-2018 Venous Duplex Lower Extremity Result: Comments: See Note; NOTES: [facility] Services [address] [place] [address] Venous Duplex US, Unilateral 02/14/18 1549 MR#: [id number] Acct: [id number] Name: DIANA HICKMAN Rep #: [id number] : 1950 68 From: Abdoulaye Landa MD [...] 0 02/14/18 1549 Date Transcribed: 02/14/18 174 Mobile Web Application Developer: Signed 14-Feb-2018 Chest 1 View (Portable) Result: Comments: See Note; NOTES: [facility] Services [address] [place] [address] Chest 1 View (Portable) MR#: [id number] Acct: [id number] Name: DIANA ESCUDERO Rep #: [id number] : 1950 F 68 From: Aaron Salgado MD PCP: Kelly Hannah MD Status: REG ER Study: Chest 1 View (Portable) Date of Exam: 02/14/18 Exam# [id number] Ordering Dr: Kasi Worley MD STUD Y: [...] Aaron Salgado MD at 15:52 EDT Tel [phone], Service support , CC: Kelly Salgado; Kasi Worley MD Mobile Web Application Developer: Signed 24-Jan-2018 Cardiology Visit Report Result: Comments: See Note; NOTES: [facility] [address] [place] [address] OFFICE VISIT Date of Service: 01/24/18 MR#: [id number] Acct: [id number] Name: DIANA ESCUDERO Rep #: [id number] : 1950 Provider: Puneet Alexander MD Age/Sex: 67/F Location: [facility] [place] Status: Signed HPI HPI Chief Complaint: [...] Intake Visit Reasons: 6 M FU In [facility] Required: No Allergies simvastatin [From Zocor] Adverse [...] PO QDAY 01/24/18 [History Confirmed 01/24/18] [facility] Medical History Obstructive sleep apnea (Chronic) History of pulmonary embolism (Chr onic) Atherosclerosis of coronary artery of [place] heart without angina pectoris (Chronic) Hypertension (Chronic) [...] Plan 1. Atherosclerosis of coronary artery of [place] heart without angina pectoris I25.10 Non Obs [...] 3 Diagnoses Atherosclerosis of coronary artery [place] heart without angina pect ranulfo I25.10 Hyperlipidemia E78.5 Coding Level of Care Code Off vis,est,level 3 Diagnoses Atherosclerosis of coronary artery of [place] heart without angina pectoris I25.10 Hyperlipidemia E78.5 12/06 1536 <Electronically signed by Puneet Alexander MD> Date Puneet Alexander MD Cosigner Signature: Date (if applicable) CC: Kelly Hannah MD 12-Aug-2017 Foot min 3 Views Result: Comments: See Note; NOTES: [facility] Imaging Services [address] [place] [address] Foot min 3 Views MR#: [id number] Acct: [id number] Name: DIANA ESCUDERO OLGA Rep #: [id number] : 1950 F 67 From: Aaron Salgado MD PCP: Kelly Hannah MD Status: REG CLI Study: Foot min 3 Views Date of Exam: 08/12/17 Exam# [id number] Ordering Dr: Kelly Hannah MD STUDY: X-RAY [...] Salgado MD 08/08/21 at 14:14 EST Tel [phone], Service support , CC: Kelly Hannah MD Mobile Web Application Developer: Signed 05-Aug-2017 TXT - Blood Flow Screening Result: Comments: See Note; NOTES: [facility] [address] [place] [address] 08/05/17 0756 MR#: [id number] Acct: [id number] Name: DIANA ESCUDERO Rep #: [id number] : 1950 67 From: Marcus Garza MD Attending Dr: Kelly Hannah MD Status: REG REF Ordering Dr: Date: 08/05/17 Location: [facility] Sex: F C Admitted: Carotid [...] Garza MD on 08/05/2017 09:30 PM 08/05/17 4070 Date Marcus Garza MD CC: Kelly Hannah MD Date Dictated: 08/05/17 075 T ranscribed: 08/05/172129 Mobile Web Application Developer: Signed 15-Jul-2017 Cardiology Visit Report Result: Comments: See Note; NOTES: [facility] [address] [place] [address] OFFICE VISIT Date of Service: 07/15/17 MR#: [id number] Acct: [id number] Name: DIANA ESCUDERO Rep #: [id number] : 1950 Provider: Puneet Alexander MD Age/Sex: 67/F Location: [facility] [place] Status: Signed [facility] 6 M FU: Chief Complaint: [...] Hyperlipidemia (Chronic) Atherosclerosis of coronary artery of [place] heart without angina pectoris (Chronic) Blood glucose [...] (CAD), BILAT Result: Comments: See Note; NOTES: [facility] Imaging Services [address] [place] [address] SCREENING MAMM (CAD), BILAT MR#: [id number] Acct: [id number] Name: DIANA ESCUDERO Rep # : [id number] : 1950 F 67 From: Aaron Salgado MD PCP: Kelly Hannah MD Status: REG CLI Study: SCREENING MAMM (CAD), BILAT Date of Exam: 04/19/17 Exam# [id number] Ordering Dr: Kelly Hannah MD MAMMOGRAPHY - [...] delay biopsy of a clinically suspicious abnormality. [id number] Electronically Signed: Aaron Salgaod MD at 8:33 EDT Tel [phone], Service support , CC: Kelly Hannah MD Mobile Web Application Developer: Signed 16-Sep-2016 Echocardiogram Complete Result: Comments: See Note; NOTES: [facility] [address] [place] [address] Echo Complete 09/16/16 0956 MR#: [id number] Acct: [id number] Name: DIANA ESCUDERO Rep #: [id number] : 1950 66 From: Emil Craven MD Attending Dr: Kelly Hannah MD Status: REG CLI Ordering Dr: Kelly Hannah MD Date: 09/16/16 Location: [facility] Sex: F C Admitted: Reason [...] Dictated: 09/16/16 0956 Date Transcribed: 09/16/16 1145 Mobile Web Application Developer: Signed 04-Sep-2016 CTA Chest W/WO Contrast Result: Comments: See Note; NOTES: [facility] Services [address] [place] [address] Verdana 4d CTA Chest W/WO Contrast MR#: [id number] Acct: [id number] Name: DIANA ESCUDERO Alejandra Rep #: [id number] : 1950 F 66 From: Aaron Salgado MD PCP: Kelly Hannah MD Status: REG ER Study: CTA Chest W/WO Contrast Date of Exam: 09/04/16 Exam# [id number] Ordering Dr: Leanne Finn STUDY: CTA CHEST [...] Burak Salgado MD at 11:40 EDT Tel [phone], Service support [phone], CC: Leanne Finn MD; Kelly Hannah MD Mobile Web Application Developer: Signed 23-Jun-2016 Dexa Bone Density Study (HP) Result: Comments: See Note; NOTES: [facility] Imaging Services [address] [place] [address] Verdana 4d Dexa Bone Density Study () MR#: [id number] Acct: [id number] Name: EDUARDO ESCUDERO OLGA Rep #: [id number] : 1950 F 66 From: Aaron Salgado MD PCP: Kelly Hannah MD Status: REG CLI Study: Dexa Bone Density Study () Date of Exam: 06/23/16 Exam# [id number] Ordering Dr: Kelly Posey MD STUDY: DUAL [...] Aaron Salgado MD at 16:05 EST Tel [phone], Service support [phone], CC: Kelly Hannha MD Mobile Web Application Developer: Signed 20-Apr-2016 Venous Duplex Lower Extremity Result: Comments: See Note; NOTES: [facility] [address] [place] [address] Venous Duplex US, Unilateral 04/20/16 1428 MR#: [id number] Acct: [id number] Name: DIANA ESCUDERO Rep #: [id number] : 1950 66 From: Marcus Garza MD [...] Date Dictated: 04/20/16 1428 Date Transcribed: 04/20/162149 Mobile Web Application Developer: Signed 23-Mar-2016 Bilat Scrn Digital AND CAD Result: Comments: See Note; NOTES: [facility] Imaging Services [address] [place] [address] Verdana 4d Bilat Scrn Digital AND CAD MR#: [id number] Acct: [id number] Name: ANGELA ESCUDERO Rep #: [id number] : 1950 F 66 From: Aaron Salgado MD PCP: Kelly Hannah MD Status: REG CLI Study: Bilat Scrn Digital AND CAD Date of Exam: 03/23/16 Exam# [id number] Ordering Dr: Kelly Resendiz i, MD MAMMOGRAPHY [...] delay biopsy of a clinically suspicious abnormality. [id number] Electronically Signed: Aaron Salgado MD at 7:51 EDT Tel [phone], Service support [phone], CC: Kelly Hannah MD Mobile Web Application Developer: Signed 02-Jan-2016 Venous Duplex Lower Extremity Result: Comments: See Note; NOTES: [facility] [address] [place] [address] Venous Duplex US - Johnny Extrem 01/02/16 1454 MR#: [id number] Acct: [id number] Name: DIANA ESCUDERO Rep #: [id number] : 1950 65 From: Marcus Garza MD [...] Date Dictated: 01/02/16 1454 Date Transcribed: 01/02/161653 Mobile Web Application Developer: Signed 12-Dec-2015 12 Lead Electrocardiogram Result: Comments: See Note; NOTES: [facility] Services [address] [place] [address] 12 Lead EKG 12/03/15 1125 MR#: [id number] Acct: [id number] Name: DIANA DOWLING OLGA Rep #: [id number] : 1950 65 From: Puneet Alexander MD [...] normal ECG Confirmed by PUNEET ALEXANDER ([id number]), film or videotape editor SHIELA DOWELL (56) on 12/09/2015 10:54:37 AM Referred By: KIRT Confirmed By:PUNEET ALEXANDER 12/09/15 1054 Date ___ Puneet Alexander MD CC: Kelly Hannah MD Date Dictated: 12/03/151124 Date Transcribed: 12/03/151124 Mobile Web Application Developer: Signed 03-Dec-2015 Emergency Department Summary Result: Comments: See Note; NOTES: [facility] Medical Records Department [address] [place] [address] Emergency Department Summary MR#: [id number] Acct: [id number] Name: DIANA ESCUDERO OLGA Rep #: [id number] : 1950 65 From: Leanne Finn MD [...] Pleurisy. Leanne Finn MD T: [facility] JOB: [id number] 12/03/15 1536 <Electronically signed by Leanne Finn MD& #62; Date Leanne Finn MD Cosigner Signature (If Indicated): Date CC: Kelly Hannah MD Da te Dictated: 12/03/15 1357 Date Transcribed: 12/03/151356 Mobile Web Application Developer: Signed 03-Dec-2015 Discharge Instruction Result: Comments: See Note; NOTES: [facility] Medical Records Department [address] [place] [address] Discharge Instruction 12/03/15 1354 MR#: [id number] Acct: [id number] Name: DIANA ESCUDERO OLGA Rep #: [id number] : 1950 65 From: Leanne Finn MD [...] problems, contact your doctor. Call [facility] ([phone]) or report to the closest Emergency Room. Call 911 if necessary. 12/03/15 1357 &# 60;Electronically signed by Leanne Finn MD> Date Leanne Finn MD Cosigner Signature (If Indicated): Date CC: Kelly Hannah MD 03-Dec-2015 CTA Chest W/WO Contrast Result: Comments: See Note; NOTES: [facility] Imaging Services [address] [place] [address] Verdana 4d CTA Chest W/WO Contrast MR#: [id number] Acct: [id number] Name: DIANA MENESES Rep #: [id number] : 1950 F 65 From: Aaron Salgado MD PCP: Kelly Hannah MD Status: REG ER Study: CTA Chest W/WO Contrast Date of Exam: 12/03/15 Exam# [id number] Ordering D r: Leanne Finn MD STUDY: [...] Aaron Salgado MD at 13:37 EDT Tel [phone], Service support [phone], CC: Leanne Finn MD; Kelly Hannah MD Mobile Web Application Developer: Signed 24-Jul-2015 Sleep Study Report Result: Comments: See Note; NOTES: [facility] [address] [place] [address] Split Night Sleep Study MR#: [id number] Acct: [id number] Name: Miguel Angel ESCUDERO Rep #: [id number] : 1950 65 From: Jimmy Coates MD [...] version). Please note that a reference to [facility] AHI in this report is consistent with the current Hypopnea definition according to Medicare Criteria and an AAS AHI reference is consistent wit h the current Hypopnea definition according to the AASM criteria and is recognized by [facility] as the RDI. PROCEDURE: The study was attended continuously by a archives technician. Monitored parameters inclu ded left and [...] calculated body mass index of 35 and Marlow Sleepiness Scale score of 6/20. The patient [...] and heated humidity. SLEEP STUDY DATA: The [facility] split night study began at 1114:07 [...] patient is to have a download of [employer]. If the AHI remained elevated, can empirically [...] M.D. William Novak, MD T: [facility] JOB: [id number] CC: Jimmy Coates MD DD: 08/06 4207/24/152204 <Electronically signed by Jimmy Coates MD> Date Jimmy Coates MD Co-signature (if appli cable) Date Signed 12-Feb-2015 Chest 1 View (Portable) Result: Comments: See Note; NOTES: [facility] Imaging Services [address] [place] [address] Radiology Report MR#: [id number] Acct: [id number] Name: DIANA ESCUDERO OLGA Rep #: [id number] : 1950 F 65 From: Aaron Salgado MD PCP: Kelly Hannah MD Status: PRE ER Study: Chest 1 View (Portable) Date of Exam: 02/12/15 Exam# [id number] Ordering Dr: Kenroy Arciniega MD DY: X-RAY [...] Aaron Salgado MD at 11:08 EDT Tel [phone], Service support [phone], RAD/Chest 1 View (Portable) IMPRESSION: No acut e abnormality is seen. Electronically Signed: Aaron Salgado MD at 11:08 EDT Tel [phone], Service support [phone], CC: Kelly Hannah MD; Kenroy Arciniega MD Mobile Web Application Developer: Signed 12-Feb-2015 CTA Chest W/WO Contrast Result: Comments: See Note; NOTES: [facility] Imaging Services [address] [place] [address] CAT Scan Report MR#: [id number] Acct: [id number] Name: DIANA ESCUDERO Rep #: [id number] : 1950 F 65 From: Aaron Salgado MD PCP: Kelly Hannah MD Status: REG ER Study: CTA Chest W/WO Contrast Date of Exam: 02/12/15 Exam# [id number] Ordering Dr: Kenroy Arciniega MD UDY: CTA [...] Aaron Salgado MD at 12:08 EDT Tel [phone], Service support [phone], CC: Kelly Hannah MD; Kernoy Arciniega MD Mobile Web Application Developer: Signed 11-Jan-2015 Bilat Scrn Digital AND CAD Result: Comments: See Note; NOTES: [facility] Imaging Services [address] [place] [address] Breast Imaging Report MR#: [id number] Acct: [id number] Name: DIANA ESCUDERO Rep #: [id number] : 1950 F 64 From: Shaan Nunez DO PCP: Kelly Hannah MD Status: REG CLI Study: Bilat Scrn Digital AND CAD Date of Exam: 01/11/15 Exam# [id number] Ordering Dr: Kelly Hannah MD MAMMOGRAPHY - [...] Shaan Nunez DO at 10:22 EDT Tel [phone], Service support [phone], CC: Kelly Hannah MD Mobile Web Application Developer: Signed 23-Jul-2014 CTA Chest W/WO Contrast Result: Comments: See Note; NOTES: [facility] Imaging Services [address] [place] [address] CAT Scan Report MR#: [id number] Acct: [id number] Name: DIANA ESCUDERO Rep #: [id number] : 1950 F 64 From: Aaron Salgado MD PCP: Kelly Hannah MD Status: REG CLI Study: CTA Chest W/WO Contrast Date of Exam: 07/23/14 Exam# [id number] Ordering Dr: Kelly Hannah MD S TUDY: [...] Aaron Salgado MD at 12:47 EST Tel [phone], Service support [phone], CC: Kelly Hannah MD Mobile Web Application Developer: Signed 04-Jan-2014 Consultation Result: Comments: See Note; NOTES: [facility] Medical Records Department [address] [place] [address] Consultation 01/04/14 1218 MR#: [id number] Acct: [id number] Name: DIANA ESCUDERO Rep #: [id number] : 1950 63 From: Juancho Foy MD PCP: Kelly Hannah MD Status: REG [facility] Y Location: [place] [address] Problem List (1) Bradycardia Status: Acute (2) [...] showed sinus bradycardia, normal QRS duration, normal AR interval, normal QT interval, no ischemic hardy [...] PO Q4H PRN PRN #30 tablet 01/04/14 [[place] 5/325] Surgical History: appendectomy, cholecystectomy, - - Hysterectomy Psychiatric History: No pertinent psych hx 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 Lives: Spouse/ Significant Other Smoking [...] Discharge Instruction Result: Comments: See Note; NOTES: [facility] Medical Records Department [address] [place] [address] Instructions for Home/Discharge Instructions 01/04/14 0731 MR#: [id number] Acc t: [id number] Name: DIANA ESCUDERO OLGA Rep #: [id number] : 1950 63 From: Anatoly Diego MD PCP: Kelly Hannah MD Status: REG [facility] Discharge Diet: No Restrictions Discharge Activity: Return [...] PRN PRN #60 capsule Hydrocodone Bitart/Apap 5-325 [[place] 5/325] 1 tablet PO Q4H PRN PRN #30 tablet Please Follow Up With: Anatoly Diego When: 2-3 weeks Proposed Discharge Date: 01/05/14 01/04/14 0735 <Electronically signed by Anatoly Diego MD> Date Anatoly Diego MD CC: Kelly Hannah MD 10-Oct-2013 EKG (53456) Comments: see scanned document of test done to see results reviewed today with patient Result: [MEASUREMENTS ANALYSIS] Date of Test: 10/10/2013 08:20:27; Heart Rate: 64; AR Interval: 160; QRS: 90; QT Interval: 394; Corrected QT Interval (QTc): 401; P Wave [place]: 50; QRS Wave [place]: 5; T Wave [place]: 14; Blood Pressure: 122/78 [ECG DIAGNOSTIC STATEMENTS] [...] Status: Active 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 Status: Active Living Situation: Lives with domestic partner. Comments: , [employer]ism Status: Active No Caffeine Use Status: Active [...] Height 0 in Head Circumference 0.00 cm 1-Vnq-302257:12 Temperature 97.9 f Comments: Method: Oral Pulse [...] 0.00 cm Results Date Description Value Details 2-Wyn-640634:24 Urinalysis, Office (12006) UA - LEUKOCYTE ESTERASE Negative (Normal) UA - NITRITE Negative (Normal) URINE UROBILINGN FRANKO TIMED Normal mg/dL (Normal) UA - PROTEIN Negative mg/dL (Normal) UA - PH 6 (Abnormal) UA - BLOOD Negative (Normal) UA - SPECIFIC GRAVITY 1.020 (Normal) UA - KETONES Negative mg/dL (Normal) UA - BILIRUBIN Negative (Normal) UA - GLUCOSE Negative (Normal) 25-Cnb-78500:40 Urinalysis, Complete Comments: Order Date: 05/19/18Has pt arrived? YHow was Urine Obtained? AUTOCUTTER TO [facility] [id number] [place], [place], [id number] MUCUS, URINE 0 SEEN {/hpf} (Normal) BACTERIA [...] CLARITY Sl. Cloudy (Normal) COLOR Yellow (Normal) 67-Kjv-93663:26 Basic Metabolic Profile (BMP) Comments: [facility] [address] [place], [place], [id number] GAP 5 (Normal) Range: 5-15 CO2 29.0 [...] A.D.A. criteria.Please note revised GLUCOSE reference range rxdxvkuzh16/02/2018. 31-Gdh-89332:26 CBC W/Diff, Automated Comments: [facility] [facility] Erkwvfrsur[address] [place], [place], [id number] Absolute Lymph 2.03 {X10_3/ul} (Normal) Range: 0.83-4.51 [...] Range: 4.4-11.0 :26 Partial Thromboplast Time Comments: [facility] Zxblgncboi8548 [facility]. [place], [place], [id number] PTT 28.1 s (Normal) Range: 24.1-36.2 :26 Prothrombin Time w/INR Comments: [facility] Tejrijkupy2771 [address] access hospitale. [place], [place], [id number] INR 1.0 (Normal) PROTIME 12.7 s (Normal) Range: 11.7-14.9 :26 Troponin-I Comments: [facility] Kflhzrfbxv8242 [facility] [place], [place], [address] TROPONIN-I < 0.015 ng/mL (Normal) Comments: TROPONIN-I EXPECTED VALUES <0.045 Negative 0.045 - 0.590 Consistent with Cardiac Damage > OR = 0.600 Critical Value Not every elevated troponin is indicative of MT. T hesevalues should be used with clinical judgement in examiningthe patient's clinical picture for diagnosis. To establisha diagnosis of MT versus myocardial injury, there must be ademonstrated rise and/ or fall in the troponin values, inaddition to ischemic symptoms, EKG changes, new regionalwall motion abnormality, and/or angiographical evidence. PLEASE NOTE: REFERENCE RANGES EDITED 11/01/1719-May-20187:13 Bedside Glucose Comments: [facility] LaboratoryPoint of Uspr[address] [place] [address] BEDSIDE GLU 101 mg/dL (Normal) Range: 70-110 Comments: MANAGEMENT OF PATIENT CARE PER NURSING PROTOCOL :16 LIPOPROTEIN, BLD, BY NMR Comments: PATIENT WAS FASTINGPERFORMED BY: LabCo[address] [id number] (82387) LP-IR Score 81 (Abnormal) Comments: INSULIN RESISTANCE [...] 1600 - 2000 Very High > 2000 76-Rer-906944:35 Basic Metabolic Profile (BMP) Comments: [facility] Ynslucfgsz38[address] [place], [address] GAP 10 (Normal) Range: 5-15 CO2 30.0 [...] A.D.A. criteria.Please note revised GLUCOSE reference range qxwmsvveu32/02/2018. 22-Fnk-270053:35 CBC W/Diff, Automated Comments: [facility] [address] [place], [place], [address] Absolute Lymph 2.44 {X10_3/ul} (Normal) Range: 0.83-4.51 [...] K/mm3 (Normal) Range: 4.4-11.0 :35 Troponin-I Comments: [facility] [address] [place], [place], [id number] TROPONIN-I < 0.015 ng/mL (Normal) Comments: TROPONIN-I EXPECTED VALUES <0.045 Negative 0.045 - 0.590 Consistent with Cardiac Damage > OR = 0.600 Critical Value Not every elevated troponin is indicative of MT. T hesevalues should be used with clinical judgement in examiningthe patient's clinical picture for diagnosis. To establisha diagnosis of MT versus myocardial injury, there must be ademonstrated rise and/ or fall in the troponin values, inaddition to ischemic symptoms, EKG changes, new regionalwall motion abnormality, and/or angiographical evidence. PLEASE NOTE: REFERENCE RANGES EDITED 11/01/1723-Sep-20178:28 Pathology Report Comments: PERFORMED BY: LUIS Momin Buckner Uqda8604 [facility] [id number] BY: [facility] Dermatopathology [address] [place] [address] [id number] Information: [id number] See MATER Comments: Material submitted: .RIGHT HAND BIOPSYClinical history: .BLACK SPOT ON HAND Note (Normal) Diagnosis:BLUE NEVUS.TMZ/09/28/2017Electronically signed: .Mya Fay MD, DermatopathologistGross description: .RECEIVED IN FORMALIN LABELED DIANA ESCUDERO AND DESIGNATEDRIGHT HAND IS A PUGH SKIN PUNCH BIOPSY MEASURING 3.0 MM IN ANDREW METERAND 2.0 MM THICK WITH A OLIVAS, RAISED AREA 2.5 X 1.5 MM. SUBMITTEDIN TOTO.FUN/TMZPathologist provided ICD-10:D22.61CPT .677127 22-Nxd-15494:47 Platelet Count on Comments: PATIENT WAS FASTINGPERFORMED BY: [employer] LabCoAffineti BiologicsYjdrdublyf2925 [facility] [id number] BY: LabCoInspira Medical Center Mullica HillFkqrso0107 [facility] [id number] Citrated Bld Plt Count, Citrated Bld 160 {X10E3/uL} (Normal) Range: 150-379 74-Tlt-02684:47 LIPOPROTEIN, BLD, BY NMR Comments: PATIENT WAS FASTINGPERFORMED BY: [employer] [facility] Wqotblacux2929 [facility] [id number] BY: LabCambridge [employer] Tpqkbh9257 [facility] [id number] Information: PLATELET ON CITRATE BLD 128851 (85661) LP-IR Score 85 (Abnormal) Comments: INSULIN RESISTANCE [...] 1600 - 2000 Very High > 2000 83-Ubw-31462:43 Albumin/Creatinine Ratio,Urine Comments: PATIENT NOT FASTINGPERFORMED BY: [employer] (STIE)6370 [facility] [id number] Alb/Creat Ratio <1.4 {mg/g_creat} (Normal) Range: 0.0-30.0 Albumin, Urine <3.0 ug/mL (Normal) Creatinine, Urine 212.4 mg/dL (Normal) 62-Fqu-94286:43 CBC With Differential/Platelet Comments: PATIENT NOT FASTINGPERFORMED BY: [employer] (STIE)6370 [facility] [id number] Immature Grans (Abs) 0.0 {x10E3/uL} (Normal) Range: [...] 3.77-5.28 WBC 6.3 {x10E3/uL} (Normal) Range: 3.4-10.8 49-Yad-38651:43 Comp. Metabolic Panel (14) Comments: PATIENT NOT FASTINGPERFORMED BY: [facility] Lqmtcn8370 [facility] [id number] ALT (SGPT) 18 [iU]/L (Normal) Range: 0-32 [...] Glucose, Serum 100 mg/dL (Abnormal) Range: 65-99 23-Nly-95778:43 Urinalysis, Routine Comments: PATIENT NOT FASTINGPERFORMED BY: EndoartInspira Medical Center Mullica HillTdroec5440 [facility] [id number] Microscopic Examination MICNIP (Normal) Comments: Microscopic not indicated and not performed. Nitrite, Urine Negative (Normal) Urobilinogen,Semi-Qn 0.2 mg/dL (Normal) Range: 0.2-1.0 Bilirubin Negative (Normal) Occult Blood Negative (Normal) Ketones Negative (Normal) Glucose Negative (Normal) Protein Negative (Normal) WBC Esterase Negative (Normal) Appearance Clear (Normal) Urine-Color Yellow (Normal) pH 6.0 (Normal) Range: 5.0-7.5 Specific Humboldt 1.025 (Normal) Range: 1.005-1.030 09-Tob-434865:21 FLU A+B DIRECT AG, (RAPID) (17919) FLU A+B DIRECT AG, (RAPID) negative (Normal) :32 Potassium Serum (29223) Comments: PATIENT NOT FASTINGPERFORMED BY: Endoart[address] [id number] BY: [address] [id number] Potassium, Serum 3.9 mmol/L (Normal) Range: 3.5-5.2 :32 Magnesium (96422) Comments: PATIENT NOT FASTINGPERFORMED BY: [place] [address]70 [facility] [id number] BY: [address] [id number] Magnesium, Serum 2.0 mg/dL (Normal) Range: 1.6-2.3 :32 CCP ANTIBODY (88087) Comments: PATIENT NOT FASTINGPERFORMED BY: [place] 4251470 [facility] [id number] BY: [address] [id number] CCP Antibodies IgG/IgA 10 {units} (Normal) Range: 0-19 Comments: Negative <20 Weak positive 20 - 39 Moderate positive 40 - 59 Strong positive >59 :32 TSH (81060) Comments: PATIENT NOT FASTINGPERFORMED BY: [place] 4251470 [facility] [id number] BY: [address] [id number] TSH 3.380 {uIU/mL} (Normal) Range: 0.450-4.500 :32 SED RATE ERYTHROCYTE Comments: PATIENT NOT FASTINGPERFORMED BY: [place] 4251470 [facility] [id number] BY: [address] [id number] (83934) Sedimentation Rate-Westergren 14 mm/h (Normal) Range: 0-40 82-Ask-47628:32 C-REACTIVE PROTEIN (71256) Comments: PATIENT NOT FASTINGPERFORMED BY: [place] [address]1470 [facility] [id number] BY: [address] [id number] C-Reactive Protein, Quant 3.5 mg/L (Normal) Range: 0.0-4.9 :32 JESUS ALBERTO (ANTINUCLEAR ANTIBODY) Comments: PATIENT NOT FASTINGPERFORMED BY: [place] [address]1470 [facility] [id number] BY: [facility] [address] [id number]; fu 3-30 (54237) JESUS ALBERTO Direct Negative (Normal) 27-Jqy-521646:37 Basic Metabolic Profile (BMP) Comments: 'TROP' Serial specimen #1, #2, #3, or #4: 1[facility] Pkjgswyeve01[address] [place], [address] GAP 8 (Normal) Range: 5-15 [...] <126 mg/dLsuggests IMPAIRED HOMEOSTASIS per A.D.A. criteria. 52-Ltq-458366:37 CBC W/Diff, Automated Comments: [facility] Qwcbxnuhcf8[address] [place], [address] Absolute Lymph 1.93 {X10_3/ul} (Normal) [...] 4.2-5.4 WBC 5.9 K/mm3 (Normal) Range: 4.4-11.0 23-Ane-425016:37 Troponin-I Comments: 'TROP' Serial specimen #1, #2, #3, or #4: [address] [place] [address] Pjykispaqb[address] [place], [place], [address] TROPONIN-I < 0.02 ng/mL (Normal) Comments: TROPONIN-I EXPECTED VALUES <0.05 NEGATIVE 0.06 - 0.59 AT RISK OF MT > OR = 0.60 SUGGEST MT 03-Bmw-932289:16 HEPATITIS C ANTIBODY (48249) Comments: CLient bill for this; PATIENT NOT FASTINGPERFORMED BY: [facility] Dhepzu1568 [facility] [id number] Hep C Virus Ab <0.1 {s/co_ratio} (Normal) Range: 0.0-0.9 Comments: Negative: < 0.8 Indeterminate: 0.8 - 0.9 Positive: > 0.9 . The CDC recommends that a positive HCV antibody result be followed up with a HCV Nucleic Acid Amplification test (574428). :32 CBC W/Diff, Automated Comments: [facility] [address]hwqkp[address] [place], [place], [address] Absolute Lymph 2.31 {X10_3/ul} (Normal) Range: 0.83-4.51 [...] 1'CKMB' Serial Specimen #1, #2 or #3? 1[facility] Fvqgabpidz26[address] [place], [address] GAP 7 (Normal) Range: 5-15 [...] 1'CKMB' Serial Specimen #1, #2 or #3? 1[facility] Ahaurutdua[address] [place], [place], [address] CKRI 1.1 % (Normal) Range: 0.0-1.4 Comments: [...] 1'CKMB' Serial Specimen #1, #2 or #3? 1[facility] Clifuqhmze[address] [place], [place], [address] TROPONIN-I < 0.02 ng/mL (Normal) Comments: TROPONIN-I EXPECTED VALUES <0.05 NEGATIVE 0.06 - 0.59 AT RISK OF MT > OR = 0.60 SUGGEST MT :30 CBC (Auto) (98980) Comments: PATIENT WAS FASTINGPERFORMED BY: LabCoRecargo Bbwgme3472 [facility] [id number] Platelets 165 {x10E3/uL} (Normal) Range: 150-379 RDW 13.8 % (Normal) Range: 12.3-15.4 MCHC 33.1 g/dL (Normal) Range: 31.5-35.7 MCH 31.2 pg (Normal) Range: 26.6-33.0 MCV 94 fL (Normal) Range: 79-97 Hematocrit 43.2 % (Normal) Range: 34.0-46.6 Hemoglobin 14.3 g/dL (Normal) Range: 11.1-15.9 RBC 4.59 {x10E6/uL} (Normal) Range: 3.77-5.28 WBC 6.6 {x10E3/uL} (Normal) Range: 3.4-10.8 :30 Metabolic Panel, Comments: PATIENT WAS FASTINGPERFORMED BY: LabCoInspira Medical Center Mullica HillDaznbm9227 [facility] [id number] Information: [id number],[id number] Comprehensive (67966) ALT (SGPT) 14 [iU]/L (Normal) Range: 0-32 [...] mg/dL (Normal) Range: 65-99 :30 Lipid Panel (02420) Comments: PATIENT WAS FASTINGPERFORMED BY: CRESCELAtrium Health [id number] LDL/HDL Ratio 3.6 {ratio_units} (Abnormal) Range: 0.0-3.2 [...] (HGB A1C) Comments: PATIENT WAS FASTINGPERFORMED BY: [employer] [facility] [id number]; apt. 4-4 (01982) Hemoglobin A1c 5.8 % (Abnormal) Range: 4.8-5.6 Comments: . Pre-diabetes: 5.7 - 6.4 Diabetes: >6.4 Glycemic control for adults with diabetes: <7.0 15-Rlz-886859:59 Urinalysis, Office (17904) UA - LEUKOCYTE ESTERASE Negative (Normal) UA - NITRITE Positive (Normal) URINE UROBILINGN FRANKO TIMED 2 mg/dL (Normal) UA - PROTEIN Negative mg/dL (Normal) UA - PH 5 (Abnormal) UA - BLOOD Negative (Normal) UA - SPECIFIC GRAVITY 1.020 (Normal) UA - KETONES Negative mg/dL (Normal) UA - BILIRUBIN Negative (Normal) UA - GLUCOSE Negative (Normal) 23-Lkd-59339:00 Anticardiolip Ab, IgA/G/M, Comments: PATIENT WAS FASTINGPERFORMED BY: CB [facility] Pcqiwi0055 [facility] [id number] BY: TG [facility] WZW6713 [facility] [id number] Qn Anticardiolipin Ab,IgA,Qn <9 {APL_U/mL} (Normal) Range: [...] Positive: >20 - 80 High Positive: >80 50-Fio-305412:37 Basic Metabolic Profile (BMP) Comments: Serial Specimen #1, #2 or #3? 1'TROP' Serial specimen #1, #2, #3, or #4: 1Test performed at:[facility] Glqhqbdagp232[address] [place], [place] [address] GAP 7 (Normal) Range: 5-15 CO2 26.0 [...] Comments: Please note revised CREATININE reference range kkspuegnv60/22/2015. BUN 16 mg/dL (Normal) Range: 7-18 GLU 134 mg/dL (Abnormal) Range: 70-110 Comments: Fasting Glucose result greater than or equal to 126 mg/dLsuggests DIABETES MELLITUS per A.D.A. criteria. 30-Iug-806157:37 CBC W/Diff, Automated Comments: Test performed at:[facility] Pegluxteuo[address] [place], [place] [address] Absolute Lymph 2.35 {X10_3/ul} (Normal) Range: 0.83-4.51 [...] 4.2-5.4 WBC 7.4 K/mm3 (Normal) Range: 4.4-11.0 03-Sus-522286:37 CK-MB Quantitative and Index Comments: Serial Specimen #1, #2 or #3? 1'TROP' Serial specimen #1, #2, #3, or #4: 1Test performed at:[facility] Opqfemotlw6816 [facility] [place] [address] CPKMB 0.8 ng/mL (Normal) Range: 0.0-5.0 Comments: CK-MB and RI Interpretation MB Relative Index Non-AMI <or= 5 NA Indeterminate > 5 <or= 4 AMI > 5 > 4 CPK TOTAL 80 U/L (Normal) Range: 26-192 52-Vah-218726:37 Troponin-I Comments: Serial Specimen #1, #2 or #3? 1'TROP' Serial specimen #1, #2, #3, or #4: 1Test performed at:[facility] Etdnufchie3743 [facility] [place] [address] TROPONIN-I < 0.02 ng/mL (Normal) Comments: TROPONIN-I EXPECTED VALUES <0.05 NEGATIVE 0.06 - 0.59 AT RISK OF MT > OR = 0.60 SUGGEST MT 51-Xbu-337542:59 D-Dimer (00433) Comments: PATIENT NOT FASTINGPERFORMED BY: [facility] [address] [id number] BY: [facility] [address] [id number] D-Dimer 0.59 {mg/L_FEU} (Abnormal) Range: 0.00-0.49 Comments: In conjunction with a non-high clinical probability assessment, anormal (<0.50 mg/L FEU) result excludes deep vein thrombosis (DVT)and pulmonary embolism (PE) with high sensitivity. 28-Ngt-09464:00 LIPID PANEL (13423) Comments: PATIENT WAS FASTINGPERFORMED BY: EndoartInspira Medical Center Mullica HillRctehf2712 [facility] [id number] BY: End[employer]art GTK3716 [facility] [id number] LDL/HDL Ratio 3.1 {ratio_units} (Normal) Range: 0.0-3.2 [...] Cholesterol, Total 177 mg/dL (Normal) Range: 100-199 74-Acn-089487:59 Protein S Profile Comments: PATIENT NOT FASTINGPERFORMED BY: EndoartMegan V[place] 271337 [facility] [id number] BY: EndoartInspira Medical Center Mullica HillHsplfj9334 [facility] [id number] Inf ormation: [id number] (27916) Protein S-Functional 119 % (Normal) Range: 60-145 Protein S, Free 108 % (Normal) Range: 56-124 Protein S, Total 137 % (Normal) Range: 58-150 21-Don-440916:59 Protein C Profile Comments: PATIENT NOT FASTINGPERFORMED BY: EndoartSt. Joseph's Regional Medical CenterIwbsvimwpu4010 [facility] [id number] BY: EndoartInspira Medical Center Mullica HillTgaoyl7841 [facility] [id number] (34980) Protein C-Functional 120 % (Normal) Range: 74-151 Protein C Antigen 104 % (Normal) Range: 70-140 19-Mai-98648:00 Homocysteine, Plasma Comments: PATIENT WAS FASTINGPERFORMED BY: EndoartInspira Medical Center Mullica HillBvgecy6518 [facility] [id number] BY: [employer] VZC0665 [facility] [id number] (21627) Homocyst(e)ine, Plasma 11.2 umol/L (Normal) Range: 0.0-15.0 34-Dti-334811:59 ANTITHROMBIN III ACTIVTY Comments: PATIENT NOT FASTINGPERFORMED BY: Endoart[address] [id number] BY: Endoart Ajmfqi0729 [facility] [id number] (08784) Antithrombin Antigen 94 % (Normal) Range: 75-130 Antithrombin Activity 108 % (Normal) Range: 75-135 78-Kxd-403962:59 CLOTTING FACTOR II Comments: PATIENT NOT FASTINGPERFORMED BY: Endoart[address] [id number] BY: Endoart Tuzafj7017 [facility] [employer] Display SystemAtrium Health [id number] (03361) Factor II Activity 113 % (Normal) Range: 75-130 62-Acj-02042:00 Factor V Leiden (76361) Comments: PATIENT WAS FASTINGPERFORMED BY: [employer] LabCambridge [employer] Ygxmve2756 [employer] Graphics Display SystemAtrium Health [id number] BY: Endoart YBJ3067 [facility] [id number] Factor V Leiden FVNEG3 (Normal) Comments: Result: [...] in the workup for venous thrombosis include [id number] mutation in the factor II (prothrombin) gene,protein S and C deficiency, and antithromb in deficiencies.Anticardiolipin antibody and lupus anticoagulant analysismay be appropriate for certain patients, as well ashomocysteine levels. .Contact your local [facility] for information on how to orderadditional testing if desired. .Genetic counselors are available for health care* providers to discuss results at [phone] ([phone]). .Methodology:DNA analysis of the Factor V gene [...] Chavez, PhDTara Jhaveri, PhDNgozi Cardozo, PhD . 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 Compound heterozygosity for the C909Kbvj N0960J variants is unlikely to be of clinical [...] discuss these results with healthcare providers at [phone]. .Methylenetetrahydrofolate reductase (MTHFR) is a ke y enzyme in thefolate pathway and is responsible for the metabolism of homocysteine.There are two common variants in the MTHFR gene, c.655C>T(p.Zas040Ezr), referred to as C677T, and c.1286A>C (p.G zr666Txz),referred to as Q9353E. Individuals homozygous for C677T (two copiesof the variant), have decreased activity of the MTHFR enzyme and apredisposition to hyperhomocysteinemia, particularly when d eficient infolate. Hyperhomocysteinemia is a risk factor for venous thrombosisand coronary artery disease and is associated with an increased riskof open neural tube defects. The C677T variant reilly s notindependently increase risk of these conditions in the absence ofhyperhomocysteinemia. The G6306Z variant is not associated withelevated homocysteine levels unless a C677T variant is also present;h owever, the clinical significance of heterozygosity for both C124Isln N2763Y is controversial. Population data suggest that these twovariants are not present on the same chromosome, but rare exceptionsh ave been reported of triple variant MTHFR genotypes (ie. homozygousfor one variant and heterozygous for the other). Homozygosity cteU585B has an estimated frequency of 10% to [...] PhDNgozi Cardozo, PhD :52 HgA1C , Office (08753) HgA1C , Office 5.8 % (Normal) Range: 4.6 - 7.1 :31 CBC With Differential/Platelet Comments: PATIENT WAS FASTINGPERFORMED BY: LabCoInspira Medical Center Mullica HillAjtsbf3299 [facility] [id number] Information: 640377,D58484 Immature Grans (Abs) 0.0 {x10E3/uL} (Normal) Range: [...] Panel (14) Comments: PATIENT WAS FASTINGPERFORMED BY: LabCoInspira Medical Center Mullica HillEozaed9495 [facility] [id number] ALT (SGPT) 18 [iU]/L (Normal) Range: 0-32 [...] Glucose, Serum 103 mg/dL (Abnormal) Range: 65-99 45-Rzm-330553:04 Urinalysis, Office (28452) UA - PH 6.0 (Normal) UA - LEUKOCYTE ESTERASE Negative (Normal) UA - NITRITE Negative (Normal) URINE UROBILINGN FRANKO TIMED 2 mg/dL (Normal) UA - PROTEIN Negative mg/dL (Normal) UA - BLOOD Negative (Normal) UA - SPECIFIC GRAVITY 1.025 (Normal) UA - KETONES Negative mg/dL (Normal) UA - BILIRUBIN Negative (Normal) UA - GLUCOSE Negative (Normal) 72-Dzk-52204:51 POTASSIUM SERUM (67238) Comments: today; PATIENT NOT FASTINGPERFORMED BY: [facility] Hmdkfj7732 [facility] [id number] Information: [id number],[id number] Potassium, Serum 3.8 mmol/L (Normal) Range: 3.5-5.2 3-Glw-697572:30 Basic Metabolic Profile (BMP) Comments: 'TROP' Serial specimen #1, #2, #3, or #4: 1'CKMB' Serial Specimen #1, #2 or #3? 1Test performed at:[facility] Wbqsytqttq4748 [facility] [place] [address] GAP 3 (Abnormal) Range: 5-15 [...] 7-18 GLU 89 mg/dL (Normal) Range: 70-110 0-Rob-828215:30 CBC W/Diff, Automated Comments: Test performed at:[facility] Qhovluyzvh0422 [facility] [place] [address] Absolute Lymph 2.01 {X10_3/ul} (Normal) [...] 4.2-5.4 WBC 6.0 K/mm3 (Normal) Range: 4.4-11.0 9-Tzf-810904:30 CK-MB Quantitative and Index Comments: 'TROP' Serial specimen #1, #2, #3, or #4: 1'CKMB' Serial Specimen #1, #2 or #3? 1Test performed at:[facility] Agffybsdzy40[address] [place] [address] CPKMB 0.8 ng/mL (Normal) Range: 0.0-5.0 Comments: CK-MB and RI Interpretation MB Relative Index Non-AMI <or= 5 NA Indeterminate > 5 <or= 4 AMI > 5 > 4 CPK TOTAL 64 U/L (Normal) Range: 26-192 5-Tkx-240794:30 D-Dimer Quantitative (DVT/PE) Comments: Test performed at:[facility] [address]jyjdftmgs[address] [place], [place] [address] D-DIMER QUANT 1.86 {FEU/ug/m} (Abnormal) Range: 0.27-0.49 Comments: D-Dimer ELEVATED (>0.49): Additional studies and clinicalassessments are indicated to conclude diagnosis of:Deep Vein Thrombosis (DVT) or Pulmonary Embolism (PE)CRITICAL VALUE REPEATED AND VERIFIED. CALLED TO SHRAVAN.RN07/23/14 1104 Ricci Delgado.RESULTS READ BACK BY SAME. 2-Dwy-386778:30 Troponin-I Comments: 'TROP' Serial specimen #1, #2, #3, or #4: 1'CKMB' Serial Specimen #1, #2 or #3? 1Test performed at:[facility] Rttoekmzdo3298 [facility] [place], [place] [address] TROPONIN-I < 0.02 ng/mL (Normal) Comments: TROPONIN-I EXPECTED VALUES <0.05 NEGATIVE 0.06 - 0.59 AT RISK OF MT > OR = 0.60 SUGGEST MT :18 HgA1C , Office (76484) HgA1C , Office 5.7 % (Normal) Range: 4.6 - 7.1 :18 Blood Glucose , Office (97712) Blood Glucose , Office 106 (Normal) 23-Ieh-017895:20 CBCD ALC 2.30 {X10_3/ul} (Normal) Range: 0.83-4.51 [...] S. AUREUS S. aureus NegativeMRSA MRSA Negative 57-Skx-483875:20 UAC Comments: ORDER URINE CULTUREIF POSITIVE NITRITE [...] Yellow (Normal) :54 Blood Glucose , Office (81420) Blood Glucose , Office 123 (Normal) Comments: Not Fasting :54 HgA1C , Office (08624) HgA1C , Office 6.0 % (Normal) Range: 4.6 - 7.1 :31 POTASSIUM SERUM (72924) Comments: patient having drawn in 2 wks; PATIENT NOT FASTINGPERFORMED BY: LabCoInspira Medical Center Mullica HillIqvyui6998 [facility] [id number] Information: 749381,R44343 Potassium, Serum 4.0 mmol/L (Normal) Range: 3.5-5.2 :20 Microscopic Examination Comments: PATIENT WAS FASTINGPERFORMED BY: LabCoInspira Medical Center Mullica HillScghoy9428 [facility] [id number] Bacteria Few (Normal) Mucus Threads Present (Normal) [...] A POSITIVE (Normal) :20 URINALYSIS, W/ MICRO (35494) Comments: PATIENT WAS FASTINGPERFORMED BY: [facility]6370 [facility] [id number] Microscopic Examination See below: (Normal) Comments: Microscopic was indicated and was performed. Nitrite, Urine Negative (Normal) Urobilinogen,Semi-Qn 1.0 mg/dL (Normal) Range: 0.0-1.9 Bilirubin Negative (Normal) Occult Blood Negative (Normal) Ketones Negative (Normal) Glucose Negative (Normal) Protein Trace (Normal) WBC Esterase 2+ (Abnormal) Appearance Clear (Normal) Urine-Color Yellow (Normal) pH 6.5 (Normal) Range: 5.0-7.5 Specific [place]t 1.023 (Normal) Range: 1.005-1.030 :20 METABOLIC PANEL, COMPREHENSIVE Comments: PATIENT WAS FASTINGPERFORMED BY: Endoart Qqpwff9648 [facility] [id number] (42846) ALT (SGPT) 20 [iU]/L (Normal) Range: 0-32 [...] Glucose, Serum 106 mg/dL (Abnormal) Range: 65-99 [id number]:20 LIPID PANEL ([id number]) Comments: PATIENT WAS FASTINGPERFORMED BY: [facility] [id number] LDL/HDL Ratio 3.8 {ratio_units} (Abnormal) Range: 0.0-3.2 [...] MANUAL DIFF Comments: PATIENT WAS FASTINGPERFORMED BY: [facility]In[facility]lic[facility] [id number] [id number] Information: [id number] ([id number]) Immature Grans (Abs) 0.0 {x10E3/uL} (Normal) Range: [...] (Normal) Range: 3.4-10.8 :09 HgA1C , Office (41755) HgA1C , Office 5.8 % (Normal) Range: 4.6 - 7.1 :09 Blood Glucose , Office (59103) Blood Glucose , Office 129 (Normal) Comments: [...] (Normal) Range: 70-110 :17 HgA1C , Office (86465) HgA1C , Office 5.9 % (Normal) Range: 4.6 - 7.1 :17 Blood Glucose , Office (28202) Blood Glucose , Office 107 (Normal) :15 PROL 10.4 ng/mL (Normal) Comments: NORMAL REFERENCE RANGESFEMALENON- 2.2 - 30.3 ng/mL 8.1 - 347.6 ng/mLPOST- MENOPAUSAL 0.7 - 31.5 ng/mLMALE 2.5 - 17.4 ng/mLNEW TEST METHO D & REFERENCE RANGES NOVEMBER 09, 2011; ADDENDA: has f/u on 06/08/13, will review then 36-Nyr-45831:28 BILAT SCRN DIGITAL & CAD Radiology Report [...] be sent to the patient by the [facility] within 30 days. Approximately 10% of breast cancers are not detected by mammography. Anormal mammogram should not delay biopsy of a clinically suspiciousabnormality. Signed:Payton DuttaMarch 15, 2013 at 7:58:55 AM [id number] Signed GP/GP If you are the referring physician and would like to consult with theradiologist who provided this interpretation, please co ntact Unique Yusuf at [phone]. If this radiologist is unavailable, youwill be [...] 03/15/13 0837 Sign by: Aaron Salgado MD 98-Ljl-03979:25 Blood Glucose , Office (48302) Blood Glucose , Office 134 (Normal) :25 HgA1C , Office (16436) HgA1C , Office 5.8 % (Normal) Range: 4.6 - 7.1 0-Owk-099181:22 PELVIC (NON ) Radiology Report See Note [...] Salgado M.D.January 23, 2013 at 2:31:38 PM [id number] Signed GP/GP If you are the referring physician and would like to consult with theradiologist who provided this interpretati on, please contact Unique Yusuf at [phone]. If this radiologist is unavailable, youwill be directed to another radiologist to assist. If you are a patient with a question regarding this report, pleasecontactyour referring physician directly. Professional Interpretation Provided By: [employer], Phone , These documents contain legally protected [...] size of the right kidney. The right rsmhtxnrbecfxo97.4 cm. Ambika l renal cortex. The right cortex measures 1.0 cm. Thereisa 1.1 cm x 1.0 cm x 0.9 cm cyst in the inferior pole. There is no righthydronephrosis. Left Kidney: Normal size of the left kidney. The left kidney pfidiwfi34.5cm. Normal renal cortex. The left cortex measures 1.9 cm. There is nodemonstrated renal mass or cyst. There is no left hydronephrosis. Aorta: Unremarkable. I.V.C.: The IVC is pa tent. There is no ascites. IMPRESSION:Fatty infiltration of the liver. The patient is status postcholecystectomy. Signed:Aaron Salgado M.D.January 23, 2013 at 2:2 8:11 PM [id number] Signed GP/GP If you are the referring physician and would like to consult with theradiologist who provided this interpretation, please contact Payton Yusuf at [phone]. If this radiologist is unavailable, youwill be directed to another radiologist to assist. If you are a patient with a question regarding this report, pleasecontactyour referring phys ician directly. Professional Interpretation Provided By: [employer], Phone , These documents contain legally protected [...] Salgado M.D.January 23, 2013 at 2:31:38 PM [id number] Signed GP/GP If you are the referring physician and would like to consult with theradiologist who provided this interpretati on, please contact Unique Yusuf at [phone]. If this radiologist is unavailable, youwill be directed to another radiologist to assist. If you are a patient with a question regarding this report, pleasecontactyour referring physician directly. Professional Interpretation Provided By: [employer], Phone , These documents contain legally protected [...] 01/24/13 1043 Sign by: Aaron Salgado MD 31-Pat-116295:11 CBC, Platelets & Auto Comments: PATIENT NOT FASTINGPERFORMED BY: [facility]CoIn[facility]lica HillUjcmpr[facility] [facility] [id number] Information: [id number] Diff (60230) Immature Grans (Abs) 0.0 {x10E3/uL} (Normal) Range: [...] (Normal) Range: 70-110 :33 HgA1C , Office (38762) HgA1C , Office 5.8 % (Normal) Range: 4.6 - 7.1 :53 METABOLIC PANEL, COMPREHENSIVE Comments: PATIENT WAS FASTINGPERFORMED BY: [facility]CoIn[facility] Mullica HillIvnjwx87[address] [facility] [id number] (06180) ALT (SGPT) 19 [iU]/L (Normal) Range: 0-32 [...] Glucose, Serum 88 mg/dL (Normal) Range: 65-99 22-Xdg-032784:53 CBC WITH MANUAL DIFF Comments: PATIENT WAS FASTINGPERFORMED BY: [facility]CoIn[facility] Mullica HillXhskdy9[address] [facility] [id number] Information: [id number] (55905) Immature Grans (Abs) 0.0 {x10E3/uL} (Normal) Range: [...] 3.77-5.28 WBC 7.5 {x10E3/uL} (Normal) Range: 4.0-10.5 66-Hcs-806425:53 LIPID PANEL (44600) Comments: PATIENT WAS FASTINGPERFORMED BY: [facility]Asp[facility] [facility] [id number] LDL/HDL Ratio 3.3 {ratio_units} (Abnormal) Range: 0.0-3.2 [...] Salgado M.D.January 18, 2012 at 10:04:04 AM [id number] Signed GP/GP If you are the referring physician and would like to consult with theradiologist who pro vided this interpretation, please contact Unique Yusuf at [phone]. If this radiologist is unavailable, youwill be directed to another radiologist to assist. If you are a patient with a q uestion regarding this report, pleasecontactyour referring physician directly. Professional Interpretation Provided By: [email or web address], Phone , Dictated on 01/18/12 0759 by Damian FLYNN,Lauritascribed on 01/18/12 1010 by ITS IMPORTSign by Aaron Salgado MD on 01/18/12 1011 Sign by: Aaron Salgado MD 6-Sdr-552742:43 MICROALBUMIN: CREATININE RATIO Comments: PATIENT WAS FASTINGPERFORMED BY: [facility] [facility] [id number] (17345) AND (36482) Microalb/Creat Ratio 1.4 {mg/g_creat} (Normal) Range: 0.0-30.0 Microalbumin, Urine 2.3 ug/mL (Normal) Range: 0.0-17.0 Creatinine, Urine 167.9 mg/dL (Normal) Range: 15.0-278.0 :43 METABOLIC PANEL, COMPREHENSIVE Comments: PATIENT WAS FASTINGPERFORMED BY: JERMAINE Wyldfire[address] [facility] [id number] (89771) ALT (SGPT) 24 [iU]/L (Normal) Range: 0-40 [...] Glucose, Serum 95 mg/dL (Normal) Range: 65-99 8-Vip-456894:43 LIPID PANEL (47605) Comments: PATIENT WAS FASTINGPERFORMED BY: JERMAINE [place] [facility] [id number] LDL/HDL Ratio 3.2 {ratio_units} (Normal) Range: 0.0-3.2 LDL Cholesterol Calc 115 mg/dL (Abnormal) Range: 0-99 VLDL Cholesterol José Luis 29 mg/dL (Normal) Range: 5-40 HDL Cholesterol 36 mg/dL (Abnormal) Comments: According to ATP-III Guidelines, HDL-C >59 mg/dL is considered anegative risk factor for CHD. Triglycerides 146 mg/dL (Normal) Range: 0-149 Cholesterol, Total 180 mg/dL (Normal) Range: 100-199 7-Ebo-657163:43 CBC WITH MANUAL DIFF Comments: PATIENT WAS FASTINGPERFORMED BY: [facility]Asp[facility] [facility] [id number] Information: [id number] (19967) Immature Grans (Abs) 0.0 {x10E3/uL} (Normal) Range: [...] population. WBC 5.9 {x10E3/uL} (Normal) Range: 4.0-10.5 29-Pqq-655661:18 HgA1C , Office (81368) HgA1C , Office 6.1 % (Normal) Range: 4.6 - 7.1 30-Cdu-477949:18 Blood Glucose , Office (84440) Blood Glucose , Office 125 (Normal) 44-Iyt-431419:00 Thin prep Pap Comments: Source.............Cervical;EndocervicalNo. of containers..01 CYTYC Thin Prep VialPATIENT NOT FASTINGPERFORMED BY: LabCo[address] [id number] Information: [id number] (54885) Note: PAPSMR (Normal) Comments: The Pap smear [...] ; Routine gynecolog ical examina Imelda Batres Pulp Plant Supervisor (ASCP) 81-Anc-07852:00 THU LEZAMA DIGITAL & CAD Radiology Report [...] suspiciousabnormality. Dictated on 11/03/10 0608 by Damian FLYNN,aGliranscribed on 11/04/10 0619 by ITS IMPORTSign by Aaron Salgado MD on 11/04/10 0620 Sign by: __ Aaron Salgado MD 6-Qcz-498779:24 CBC & PLATELETS (AUTO) Comments: PATIENT NOT FASTINGPERFORMED BY: [facility]CoIn[facility] Mullica HillWswjvi8[address] [facility] [id number] Information: [id number]; appt 11/28/10 (83235) MCH 31.6 pg (Normal) Range: 27.0-34.0 MCHC [...] 45 63 >63Performed at: S[facility] [address] [place], [place] [id number] Director: Stefano Mace PhD, Phone: [phone] HDL SIZE <TEST NOT PERFORMED> (Normal) INSULIN [...] TOT 209 mg/dL (Abnormal) LIPIDS . (Normal) 6-Oik-119741:12 CULT, DP WOUND Comments: COMMENTS: CULTURE, SENSITIVITY,AREOBES, [...] STRIMETHOPRIM/SULFAMETHOXAZ $ <=10 SVANCOMYCIN $ 1 S 4-Lje-348048:10 CBC Comments: COMMENTS: AC ROOM 6 HCT [...] 11.6-14.6 WBC 7.6 K/mm3 (Normal) Range: 4.4-11.0 80-Ymx-32093:40 CULTURE, NOSE GRAM STAIN See Note (Normal) [...] 1 S :56 Blood Glucose , Office (37352) Blood Glucose , Office 102 (Normal) :56 HgA1C , Office (52046) HgA1C , Office 6.1 % (Normal) Range: 4.6 - 7.1 :49 MICROALBUMIN: CREATININE Comments: PATIENT WAS FASTINGPERFORMED BY: Fede LipBiottery0 [facility] [id number] BY: JERMAINE Endoartbutch CosmeYeyijw232[address] [facility] [id number] RATIO (55689) AND (88321) Microalb/Creat Ratio 2.3 {mg/g_creat} (Normal) Range: 0.0-30.0 Microalbumin, Urine 3.4 ug/mL (Normal) Range: 0.0-17.0 Creatinine, Urine 150.2 mg/dL (Normal) Range: 15.0-278.0 :49 LIPOPROTEIN, BLD, BY NMR Comments: PATIENT WAS FASTINGPERFORMED BY: Fede Xtalic0 [facility] [id number] BY: JERMAINE [facility]CoIn[facility] Mullica HillUlflsk76[address] [facility] [id number] Information: ADD [id number] AND DRAW FEE 99 1285 (02881) LP-IR 83 Comments: The LP-IR Score combines [...] (Abnormal) Choleste 220 mg/dL galina, (Abnormal) Total 23-Nmz-81467:49 METABOLIC PANEL, Comments: PATIENT WAS FASTINGPERFORMED BY: Fede [facility]o[employer]i[facility]oo Hqs[address] [facility] [id number] BY: LabCo Kgimeh[address] [facility] [id number] COMPREHENSIVE (33843) ALT (SGPT) 22 [iU]/L (Normal) Range: 0-40 [...] Glucose, Serum 107 mg/dL (Abnormal) Range: 65-99 31-Amb-04377:49 LIPID PANEL (25369) Comments: PATIENT WAS FASTINGPERFORMED BY: Fede [facility] Dri3411 Tomás [facility] [id number] BY: JERMAINE LabCoIn[facility] Mullica HillGqippd4886 [facility] [id number] LDL Cholesterol Calc 135 mg/dL (Abnormal) Range: 0-99 LDL/HDL Ratio 4.1 {ratio_units} (Abnormal) Range: 0.0-3.2 VLDL Cholesterol José Luis 52 mg/dL (Abnormal) Range: 5-40 HDL Cholesterol 33 mg/dL (Abnormal) Comments: According to ATP-III Guidelines, HDL-C >59 mg/dL is considered anegative risk factor for CHD. Triglycerides 261 mg/dL (Abnormal) Range: 0-149 Cholesterol, Total 220 mg/dL (Abnormal) Range: 100-199 10-Bru-33001:49 CBC WITH MANUAL DIFF Comments: PATIENT WAS FASTINGPERFORMED BY: Fede [facility] Mas0724 [facility] [id number] BY: JERMAINE [facility] Agnizz[address] [facility] [id number] (67182) Baso (Absolute) 0.1 {x10E3/uL} (Normal) Range: 0.0-0.2 [...] 3.80-5.10 WBC 6.7 {x10E3/uL} (Normal) Range: 4.0-10.5 3-Vmv-193736:35 MARYAJNE CULTURE-OTHER (76149) Comments: PATIENT NOT FASTINGPERFORMED BY: [facility] [facility] [address] [id number] Information: SRC:THRT [id number] Result 1 RRF (Normal) Comments: Routine respiratory bin Upper Respiratory Culture Final report (Normal) 23-Jul-20098:07 Rapid Strep Test, Office (22218) Rapid Strep Test, Negative (Normal) Office 27-Feb-20098:2 Potassium, Serum 3.8 mmol/L (Normal) Comments: PATIENT WAS FASTINGPERFORMED BY: [facility] [facility] [id number] Range: 3.5-5.2 38-Dvo-288629:00 BILAT SCRN DIGITAL & CAD Radiology Report See Note (Normal) Comments: Exam Number: [id number] MAMMOGRAM, BILATERAL SCREENING DIGITAL AND CAD HISTORYRoutine [...] werealso examined with computer-aided detection s oftware ([employer] Reported By: KENNA SWEET M.D. 27-Feb-20098:24 Lipid Panel (35613) Comments: PATIENT WAS FASTINGClinical Information: ADD 720224, [id number] PERFORMED BY: [address] [place] [id number] Cholesterol, Total 224 mg/dL (Abnormal) Range: 100-199 HDL Cholesterol 31 mg/dL (Abnormal) Comments: According to ATP-III Guidelines, HDL-C >59 mg/dL is considered anegative risk factor for CHD. LDL Cholesterol Calc 122 mg/dL (Abnormal) Range: 0-99 LDL/HDL Ratio 3.9 {ratio_units} (Abnormal) Range: 0.0-3.2 Triglycerides 354 mg/dL (Abnormal) Range: 0-149 VLDL Cholesterol José Luis 71 mg/dL (Abnormal) Range: 5-40 22-Uei-753946:16 JESUS ALBERTO (ANTINUCLEAR ANTIBODY) Comments: PATIENT NOT FASTINGPERFORMED BY: End[facility]artCourtney [place] [id number] [facility] [id number] (94401) Antinuclear Antibodies Direct Negative (Normal) :16 C-REACTIVE PROTEIN (85949) Comments: PATIENT NOT FASTINGPERFORMED BY: EndoartInspira Medical Center Mullica HillBcvbak35[address] [facility] [id number] C-Reactive Protein, Quant 8.0 mg/L (Abnormal) Range: 0.0-4.9 47-Xjh-119741:16 CBC (AUTO) (35126) Comments: PATIENT NOT FASTINGPERFORMED BY: EndoartInspira Medical Center Mullica HillSetdvx08[address] [facility] [id number] Hematocrit 42.4 % (Normal) Range: 34.0-44.0 Hemoglobin 14.4 g/dL (Normal) Range: 11.5-15.0 MCH 31.9 pg (Normal) Range: 27.0-34.0 MCHC 34.0 g/dL (Normal) Range: 32.0-36.0 MCV 94 fL (Normal) Range: 80-98 Platelets 160 {x10E3/uL} (Normal) Range: 140-415 RBC 4.52 {x10E6/uL} (Normal) Range: 3.80-5.10 RDW 14.1 % (Normal) Range: 11.7-15.0 WBC 7.6 {x10E3/uL} (Normal) Range: 4.0-10.5 26-Wju-893231:16 Folate (81394) Comments: PATIENT NOT FASTINGPERFORMED BY: [facility] [facility] [address] [id number] Folate (Folic Acid), Serum 17.4 ng/mL (Normal) Comments: Indeterminate: 3.4 - 5.4 Deficient: <3.4 80-Rsq-032823:16 METABOLIC PANEL, COMPREHENSIVE Comments: PATIENT NOT FASTINGPERFORMED BY: [facility] [facility] [address] [id number] (22102) A/G Ratio 1.2 (Normal) Range: 1.1-2.5 Albumin, [...] Sodium, Serum 142 mmol/L (Normal) Range: 135-145 36-Ybt-411807:16 RHEUMATOID FACTOR-QUANT (76493) Comments: PATIENT NOT FASTINGPERFORMED BY: [facility] [facility] [address] [id number] RA Latex Turbid. 9.3 {IU/mL} (Normal) Range: 0.0-13.9 :16 SED RATE ERYTHROCYTE (19398) Comments: PATIENT NOT FASTINGPERFORMED BY: LabDaniel Ville [id number] [facility] [id number] Sedimentation Rate-Westergren 21 mm/h (Normal) Range: 0-30 11-Vge-471016:16 TSH (71428) Comments: PATIENT NOT FASTINGPERFORMED BY: [place] [id number] [facility] [id number] TSH 2.690 {uIU/mL} (Normal) Range: 0.450-4.500 84-Oim-490120:16 VITAMIN B-12 (CYANOCOBALAMIN) Comments: PATIENT NOT FASTINGPERFORMED BY: [place] [id number] [facility] [id number] (68169) Vitamin B12 348 pg/mL (Normal) Range: 211-911 23-Jan-20099:35 Lipid Panel (30173) Comments: PATIENT WAS FASTINGClinical Information: ADD 320068, V75124 PERFORMED BY: [address] [id number] Cholesterol, Total 208 mg/dL (Abnormal) Range: 100-199 HDL Cholesterol 32 mg/dL (Abnormal) Comments: According to ATP-III Guidelines, HDL-C >59 mg/dL is considered anegative risk factor for CHD. LDL Cholesterol Calc 124 mg/dL (Abnormal) Range: 0-99 LDL/HDL Ratio 3.9 {ratio_units} (Abnormal) Range: 0.0-3.2 Triglycerides 261 mg/dL (Abnormal) Range: 0-149 VLDL Cholesterol José Luis 52 mg/dL (Abnormal) Range: 5-40 88-Wmy-151862:47 HgA1C , Office (98286) HgA1C , Office 5.8 % (Normal) Range: 4.6 - 7.1 41-Jrb-920298:47 Blood Glucose , Office (05914) Blood Glucose , Office 128 (Normal) 62-Xyp-419398:43 Urinalysis, Office (85199) UA - LEUKOCYTE ESTERASE Trace (Normal) UA [...] sinusitis Planned Observations TSH (THYROID STIMULATING HORMONE) (82216)Indication: Transient disorientation On: 6-Rdp-562077:23 Request LIPID PANEL (29596)Indication: Mixed hyperlipidemia On: 5-Lgm-774457:45 Request Platelet 42941 (citrate, nonclumping tube)Indication: Thrombocytopenia, unspecified On: 22-Jul-20178:19 Request Metabolic Panel, Comprehensive (99940)Indication: Benign essential hypertension On: 10-Mgv-298786:46 Request MICROALBUMIN: CREATININE RATIO (15294) AND (04403)Indication: Benign essential hypertension On: 91-Ied-305155:45 Request URINALYSIS (00981)Indication: Benign essential hypertension On: 02-Sew-906754:45 Request CBC WITH MANUAL DIFF (44667)Indication: Benign essential hypertension On: 76-Phi-794901:45 Request Platelet Count, Citrated (70779)Indication: Thrombocytopenia, unspecified On: :11 Request LIPOPROTEIN, BLD, BY NMR (19450)Indication: Mixed hyperlipidemia On: :07 Request Lipase (50444)Indication: Abdominal pain On: 60-Rql-007763:24 Request Comments: add to hospital labs. Amylase (68033)Indication: Abdominal pain On: 95-Hdq-511733:24 Request Comments: add to hospital labs. Antiphospholipid atb (45996)Indication: Pulmonary emboli On: :27 Request ANTICOAG ANTTHROMB III & ASSAY (98295)Indication: Pulmonary emboli On: :27 Request METABOLIC PANEL, COMPREHENSIVE (69121)Indication: Benign essential hypertension On: :37 Request Comments: in three months (approximately) CBC with auto diff (62860)Indication: Benign essential hypertension On: :37 Request Comments: in three months (approximately) Troponin I (68273)Indication: Chest pain at rest On: : Request CPK MB FRACTION (46470)Indication: Chest pain at rest On: : Request CREATINE KINASE TOTAL (01463)Indication: Chest pain at rest On: : Request D-Dimer (41213)Indication: Chest pain at rest On: 2-Ecn-376487:00 Request Metabolic Panel, Basic (76084)Indication: Chest pain at rest On: :58 Request CBC (Auto) (90850)Indication: Chest pain at rest On: :58 Request URINALYSIS, W/ MICRO (82836)Indication: Benign essential hypertension On: :29 Request METABOLIC PANEL, COMPREHENSIVE (96258)Indication: Benign essential hypertension On: :29 Request LIPID PANEL (43950)Indication: Benign essential hypertension On: :29 Request CBC W/AUTO DIFF WBC (49835)Indication: Benign essential hypertension On: :29 Request URINALYSIS (63449)Indication: UTI (lower urinary tract infection) On: :49 Request LIPID PANEL (78402)Indication: Benign essential hypertension On: :27 Request CBC WITH MANUAL DIFF (24193)Indication: Thrombocytopenia, unspecified On: :27 Request METABOLIC PANEL, COMPREHENSIVE (83168)Indication: Benign essential hypertension On: :27 Request TSH (THYROID STIMULATING HORMONE) (37195)Indication: Post-menopausal bleeding On: :37 Request PROLACTIN (63725)Indication: Post-menopausal bleeding On: 66-Loo-03061:37 Request HEPATIC FUNCTION PANEL (76786)Indication: Hyperglyceridemia On: :05 Request LIPOPROTEIN, BLD, BY NMR (85498)Indication: Hyperglyceridemia On: :04 Request CBC, Platelets & Auto Diff (67565)Indication: Thrombocytopenia, unspecified On: :04 Request Comments: citrate tube Potassium Serum (50252)Indication: Hypokalemia On: 30-Yof-980852:36 Request Planned Encounters Medical; JULIANNEP Pre Wellness Exam (DB Nurse) - On: 26-Jul-2018 8:00 [facility] SUZY Spencer; CARRIE Wellness Exam (Doctor) - On: 16-Aug-2018 8:00 [facility] Kelly Hannah MD, MD, Dana M Planned Procedures EEGBy: Kelly Hannah MD On: 21-May-2018 Intent Kelly FLYNN MRI OF BRAIN WITH AND WITHOUT On: 21-May-2018 Intent CONTRAST (72182)By: Kelly Hannah MD, MD, Dana M EKG (58918)By: Kelly Hannah MD On: 02-Dec-2017 Intent Kelly Hannah MD Radiology - Foot - LeftBy: Brielle On: 12-Aug-2017 Intent Kelly FLYNN MD, Dana M TDAP VACCINE >7 IM (46670)By: On: 22-Jul-2017 Intent Kelly Hannah MD, MD, Dana Comments: tdap 0.5mL prefilled syringelot:5LO42pkv:10/2019L DELT IMpt 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 pericardial fluid EKG (42433)By: Kelly Hannah MD On: 04-Sep-2016 Intent Kelly Hannah MD Comments: see scanned document of test done to see results reviewed today with patient Bone Density StudyBy: Brielle FLYNN, On: 09-Jun-2016 Intent Kelly Hernandez MD Kenalog Injection, 10 mgm On: 21-Apr-2016 Intent (J3301)By: Kelly Hannah MD Comments: buupivacaine lot [id number] 06-21-17 kenalog [id number] 09-05 Kelly Hannah MD DOPPLER ULTRASOUND OF RIGHT UPPER On: 20-Apr-2016 Intent EXTREMITY FOR VENOUS THROMBOEMBOLISM (66726)By: Kelly Hannah MD, MD, Dana M MAMMOGRAM, SCREENING, BOTH BREAST On: 27-Feb-2016 Intent (72596)By: Kelly Hannah MD, MD, Dana M Venous Doppler - BothBy: Brielle FLYNN, On: 06-Dec-2015 Intent Kelly Hernandez MD Comments: lower legs rule out DVT ADMINISTRATION OF INFLUENZA VIRUS On: 18-Apr-2015 Intent VACCINE (G0008)By: Kelly Hannah MD Comments: Lot:[id number]:IMLocation:Rt deltoiiddose: .5mlGiven by:Kelly Potter MD FLU VAC, SPLIT, >3 YEARS, INTRAMUSC On: 18-Apr-2015 Intent (12322)By: Kelly Hannah MD Comments: Lot #:[id number] date:Amount given:0.5mlRoute: IMSite given:L DltdGiven by: Peyton CHAMPION and ABN signed Quad Flu Kelyl Hannah MD BILATERAL MAMMOGRAMS (33311)By: On: 05-Nov-2014 Intent Kelly Hannah MD, MD, Dana M CT - Chest (IV Contrast Needed)By: On: 23-Jul-2014 Intent Kelly Hannah MD, MD, Dana M COMPUTED TOMOGRAPHY ANGIOGRAPHY OF On: 23-Jul-2014 Intent CHEST WITH AND WITHOUT CONTRAST Comments: rule out PE (27120)By: Kelly Hannah MD, MD, Dana M EKG (48728)By: Lindsey Verde DO On: 05-Jul-2014 Intent Comments: sinus johanny with no chg MAMMOGRAM, SCREENING, BOTH BREAST On: 26-Apr-2014 Intent (20739)By: Kelly Hannah MD, MD, Dana M BILATERAL MAMMOGRAMS (76779)By: On: 27-Mar-2014 Intent Kelly Hannah MD, MD, Dana M IMMUNIZ ADMNIN, 1 VAC, SNGL/COMBO On: 27-Mar-2014 Intent (84562)By: Kelly Hannah MD Comments: Lot #[id number]-L dltd, IMDose prefilled syringegiven by:MLJOE alanizNVIS and ABN signed Kelly Hannah MD FLU VAC, SPLIT, >3 YEARS, INTRAMUSC On: 27-Mar-2014 Intent (18129)By: Kelly Hannah MD, MD, Dana M Eprescribed prescriptions (G8553)By: On: 10-Oct-2013 Intent Kelly Hannah MD, MD, Dana M Phenergan Injection, up to 50 mg On: 22-Sep-2013 Intent (J2550)By: Nona Whiting CNP Comments: [id number], IM Nyla, BORING MACHINE SET UP OPERATOR JIG INFUSION, NORMAL SALINE SOLUTION , On: 22-Sep-2013 Intent 1000 CC (Special Coverage Instructions Apply. See MCM: 2049) (J7030)By: Nona Whiting CNP HYDRATION IV INFUSION, INIT On: 22-Sep-2013 Intent (43973)By: Nona Whiting CNP Eprescribed prescriptions (G8553)By: On: 10-Jul-2013 Intent Nathalie Nicole Breast Screening - BilateralBy: On: 06-Feb-2013 Intent Kelly Hannah MD, MD, Dana M IMMUNIZ ADMNIN, 1 VAC, SNGL/COMBO On: 06-Feb-2013 Intent (31400)By: [place] (24056)By: Tj, On: 06-Feb-2013 Intent SUZY Ultrasound - Abdomen Complete & On: 18-Jan-2013 Intent PelvisBy: Nona Whiting CNP EKG (68511)By: Kelly Hannah MD On: 12-Jul-2012 Intent Kelly Hannah MD Comments: see scanned document of test done to see results reviewed today with patient Eprescribed prescriptions (G8553)By: On: 12-Jul-2012 Intent Long BORING MACHINE SET UP 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 JIG, Nyla L MAMMOGRAM, SCREENING, BOTH BREASTS On: 06-Oct-2011 Intent (15048)By: Kelly Hannah MD Comments: 11-04-11 Kelly Hannah MD MAMMOGRAM, SCREENING, BOTH BREASTS On: 28-Nov-2010 Intent (67511)By: Kelly Hannah MD, MD, Dana M MAMMOGRAM, SCREENING, BOTH BREASTS On: 23-Oct-2010 Intent (75574)By: Kelly Hannah MD, MD, Dana M EEGBy: Lindsey Verde DO On: 20-Aug-2010 Intent EKG (32409)By: Kelly Hannah MD On: 20-Dec-2009 Intent Kelly Hannah MD EKG (04494)By: Kelly Hannah MD On: 17-Jan-2009 Intent Kelly Hannah MD MAMMOGRAM, SCREENING, BOTH BREASTS On: 17-Jan-2009 Intent ([id number])By: Kelly Hannah MD, MD, Dana M Pulse Oximetry ([id number])By: Yung On: 04-Jul-2008 Intent Gabriela Comments: 98% Phenergan Injection, up to 50 mg On: 25-Apr-2008 Intent ([id number])By: Nona Whiting CNP Comments: 25mg given IMAmt: 1mlLot: [id number]: 03/2010Route: IMSite: left hipTolerated: wellGiven By: Sherlyn, BORING MACHINE SET UP OPERATOR JIG INFUSION, NORMAL SALINE SOLUTION , On: 25-Apr-2008 Intent 1000 CC (Special Coverage Comments: IV Therapy initiated (Hamzah Black LPN)22G, 1inchSite: right wristTolerated: wellB. Ino LPN Instructions Apply. See MCM: 2048) ([id number])By: Nona Whiting CNP HYDRATION IV INFUSION, INIT On: 25-Apr-2008 Intent (83286)By: Nona Whiting CNP FLU VAC, SPLIT, >3 YEARS, INTRAMUSC On: 21-May-2006 Intent (24788)By: SUZY Spencer IMMUNIZ ADMNIN, 1 VAC, SNGL/COMBO On: 21-May-2006 Intent ([id number])By: SUZY Spencer Planned Medications INFUSION, NORMAL SALINE [...] for Tdap vaccination (Renamed from Need for skummotftl-gtdvnss-kwrmeilhc (Tdap) vaccine, adult/adolescent), Thrombocytopenia, unspecified Comprehensive Internal [...] Woman Exam (V72.31) (Pap,Mammo,Routine Female) (Renamed from [facility] Woman V72.31 (p,m)), Obesity (278.00), Thrombocytopenia, unspecified [...] Woman Exam (V72.31) (Pap,Mammo,Routine Female) (Renamed from [employer] Woman V72.31 (p,m)) Comprehensive Internal Medicine Annotation/Addendum On: 28-Nov-2010 9:33 Encounter Diagnosis: Well Woman Exam (V72.31) (Pap,Mammo,Routine Female) (Renamed from [employer] Woman V72.31 (p,m)) End: 28-Nov-2010 10:24 Comprehensive [...] Cold Symptoms: Pt just flew home from [place] yesterday.- yellow green nasal discharge- sx for [...]
--- OUTSIDE RECORDS SUMMARY | 2018-07-14 07:34 | XMS RPT_ITS | Continuity of Care Document ---
:1950 Author Organization [facility] Address [facility] [address] [place] [address] Phone Care Team Providers Name Role Phone [...] depression lost job was in . lost [employer] and she has to drive around. life withsomeone OCD, hoarder. on ambien for sleep per Dr. coates. Wellbutrin start but had insomni a in past. working with [employer]. doing okay on incresae welbutrin.tried Effexor, paxil [...] adipex and topamax. 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 got [...] 18-Apr-2015 End : 19-Apr-2015 Inactive BD Disp [place] 30G X 1/2 Miscellaneous 1 (one) Misc [...] Inactive Comments:Medication taken as needed. called to [facility] 07-30-09 erussell disp 4 ounces no [...] Extended Release) 1 (one) Tablet ER at [facility] for 14 days for 0 days Quantity: 14 {Tablet_ER} Refills: 0 Ordered:02-May-2010 SUZY Spencer Start : 20-Dec-2009 End : 02-May-2010 Inactive NYSTATIN, 562137OXBC/ML (Mouth/Throat Suspension) 15 Suspension qid swish and swallow for 0 days Quantity: 450 {Milliliter} Refills: 0 Ordered:20-Aug-2010 Suzette Black LPN Start : 04-Aug-2010 End : 20-Aug-2010 Inactive PANTOPRAZOLE SODIUM, 40MG (Oral Tablet Delayed Release) 1 (one) Tablet DR daily for 0 days Quantity: 30 {Tablet} Refills: 6 Ordered:06-Dec-2015 SUZY Spencer Start : 20-Apr-2015 End : 06-Dec-2015 Inactive Pen [place] 5/16 31G X 8 MM Miscellaneous 1 [...] Leanne Marie Start : 29-Jul-2009 Inactive ZOSTAVAX, 85615CPL/0.65ML (Subcutaneous Solution Reconstituted) uad For Solution one [...] in hospital and 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 ppi and carafate helping. [...] for Tdap vaccination (Renamed from Need for plbdfnmxlw-yawyyca-bvhslqhhu (Tdap) vaccine, adult/adolescent) (Z23, V06.1) Status: Resolved [...] Comments: not think needs atb yet. use [employer] DM told when need to call for atb Status: Resolved as of 22-Jul-2017 WWV V73.21 Comments: scope in last 5 years Status: Inactive as of 06-Feb-2013 Procedures Procedure Dates Details appendectomy 1999 Completed cholecystectomy 1980 Completed D and C Completed Hysterectomy; Total Completed Comments: 2013 Knee Replacement, Total Completed Comments: 2007, 2013 bilateral LEFT HEART CARDIAC CATH (24595) Completed Comments: Dr. Alexander nasal abscess I and D 04-30 Completed Date Value Details 23-May-2018 Brain W/WO Contrast Result: Comments: See Note; NOTES: [facility] Imaging Services [address] [place] [address] Brain W/WO Contrast MR#: [id number] Acct: [id number] Name: DIANA ESCUDERO OLGA Rep #: [id number] : 1950 F 68 From: Jimmy Kang MD PCP: Kelly Hannah MD Status: REG CLI Study: Brain W/WO Contrast Date of Exam: 05/23/18 Exam# [id number] Ordering Dr: Kelly Hannah MD STUDY: MRI [...] rvice support , CC: Kelly Hannah MD Mess Attendant Crew: Signed 19-May-2018 Brain/Head without Contrast Result: Comments: See Note; NOTES: [facility] Imaging Services [address] [place] [address] Brain/Head without Contrast MR#: [id number] Acct: [id number] Name: DIANA ESCUDREO Rep # : [id number] : 1950 F 68 From: Kalia Galan PCP: Kelly Hannah MD Status: REG ER Study: Brain/Head without Contrast Date of Exam: 05/19/18 Exam# [id number] Ordering Dr: Puneet Johnson MD STUDY: C [...] CC: Kelly Hannah MD; Puneet Johnson MD Mess Attendant Crew: Signed 19-May-2018 Chest 1 View Result: Comments: See Note; NOTES: [facility] Imaging Services [address] [place] [address] Chest 1 View MR#: [id number] Acct: [id number] Name: DIANA ESCUDERO Rep #: [id number] : 1950 F 68 From: Aaron Salgado MD PCP: Kelly Hannah MD Status: REG ER Study: Chest 1 View Date of Exam: 05/19/18 Exam# [id number] Ordering Dr: Puneet Johnson MD STUDY: X-RAY [...] Aaron Salgado MD at 8:13 EST Tel [phone], Service support , CC: Kelly Hannah MD; Puneet Johnson MD Mess Attendant Crew: Signed 03-Mar-2018 Inital Evaluation (1) - PT Result: Comments: See Note; NOTES: [facility] Physical Therapy Health[address] [place] [address] Fax REHABILITATION SERVICES INITIAL EVALUATION MR#: [id number] Acct: [id number] Name: DIANA ESCUDERO Rep #: [id number] : 1950 68 From: Lazaro Jackson DPT [...] stabing pain (8/10) at rest. 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 Please let me know if there are questions or concerns regarding this plan of care. Physician Signature: Date: <Electronically signed by Lazaro Jackson DPT&amp ;#62; 03/03/18 1340 CC: GENOVEVA Myers; Kelly Hannah MD CLS Signed For Medicare only, by signing this I certify the plan of care. Physicians Signature Date 16-Feb-2018 12 Lead Electrocardiogram Result: Comments: See Note; NOTES: [facility] Cardiovascular Services [address] [place] [address] 12 Lead EKG 02/14/18 1459 MR#: [id number] Acct: [id number] Name: DIANA ESCUDERO OLGA Rep #: [id number] : 1950 68 From: Harris Brandt MD [...] Int : 401 ms Sinus bradycardia Inferior IN, age undeterm ined, cannot be excluded Confirmed by KEVIN FLYNN, HARRIS (1939), online editor SHIELA DOWELL (56) on 02/16/2018 1:34:57 PM Referred By: BRIEN Confirmed By:HARRIS BRANDT MD 02/16/18 1335 Date __ Harris Brandt MD CC: Kelly Hannah MD; Kasi Worley MD Signed 15-Feb-2018 Emergency Department Summary Result: Comments: See Note; NOTES: [facility] Medical Records Department [address] [place] [address] Emergency Department Summary 02/14/18 1636 MR#: [id number] Acct: [id number] Name: DIANA ESCUDERO Rep #: [id number] : 1950 68 From: Kasi Worley MD [...] score 1. This note was generated with Wikipixel dictation software. It may contain incorrect words, [...] your Primary Care Provider. Call [facility] ([phone]) or report to the closest Emergency Room. Call 911 if necessary. 02/15/18 0046 <Electronically signed by Jose Daniel Worley MD> Date Kasi Worley MD Cosigner Signature (If Indicated): Date CC: Kelly Hannah MD 14-Feb-2018 Venous Duplex Lower Extremity Result: Comments: See Note; NOTES: [facility] Cardiovascular Services [address] [place] [address] Venous Duplex US, Unilateral 02/14/18 1549 MR#: [id number] Acct: [id number] Name: DIANA HICKMAN Rep #: [id number] : 1950 68 From: Abdoulaye Landa MD [...] 0 02/14/18 1549 Date Transcribed: 02/14/18 174 Mess Attendant Crew: Signed 14-Feb-2018 Chest 1 View (Portable) Result: Comments: See Note; NOTES: [facility] Imaging Services [address] [place] [address] Chest 1 View (Portable) MR#: [id number] Acct: [id number] Name: DIANA ESCUDERO Rep #: [id number] : 1950 F 68 From: Aaron Salgado MD PCP: Kelly Hannah MD Status: REG ER Study: Chest 1 View (Portable) Date of Exam: 02/14/18 Exam# [id number] Ordering Dr: Kasi Worley MD STUD Y: [...] Aaron Salgado MD at 15:52 EDT Tel [phone], Service support , CC: Kelly Salgado; Kasi Worley MD Mess Attendant Crew: Signed 24-Jan-2018 Cardiology Visit Report Result: Comments: See Note; NOTES: [facility] [address] [place] [address] OFFICE VISIT Date of Service: 01/24/18 MR#: [id number] Acct: [id number] Name: DIANA ESCUDERO Rep #: [id number] : 1950 Provider: Puneet Alexander MD Age/Sex: 67/F Location: [facility] Status: Signed HPI HPI Chief Complaint: [...] Intake Visit Reasons: 6 M FU In [facility] Required: No Allergies simvastatin [From Zocor] Adverse [...] QDAY 01/24/18 [History Confirmed 01/24/18] [facility] Medical History Obstructive sleep apnea (Chronic) History of pulmonary embolism (Chr onic) Atherosclerosis of coronary artery of creek heart without angina pectoris (Chronic) Hypertension (Chronic) [...] Negative for lip swelling, Negative for ton ehsna swelling, Negative for rash, Negative for throat [...] Plan 1. Atherosclerosis of coronary artery of creek heart without angina pectoris I25.10 Non Obs [...] 3 Diagnoses Atherosclerosis of coronary artery of creek heart without angina pect ranulfo I25.10 Hyperlipidemia E78.5 Coding Level of Care Code Off vis,est,level 3 Diagnoses Atherosclerosis of coronary artery of creek heart without angina pectoris I25.10 Hyperlipidemia E78.5 12/06 1536 <Electronically signed by Puneet Alexander MD> Date Puneet Alexander MD Cosigner Signature: Date (if applicable) CC: Kelly Hannah MD 12-Aug-2017 Foot min 3 Views Result: Comments: See Note; NOTES: [facility] Imaging Services [address] [place] [address] Foot min 3 Views MR#: [id number] Acct: [id number] Name: DIANA ESCUDERO OLGA Rep #: [id number] : 1950 F 67 From: Aaron Salgado MD PCP: Kelly Hannah MD Status: REG CLI Study: Foot min 3 Views Date of Exam: 08/12/17 Exam# [id number] Ordering Dr: Kelly Hannah MD STUDY: X-RAY [...] Salgado MD 08/08/21 at 14:14 EST Tel [phone], Service support , CC: Kelly Hannah MD Mess Attendant Crew: Signed 05-Aug-2017 TXT - Blood Flow Screening Result: Comments: See Note; NOTES: [facility] Cardiovascular Services [address] [place] [address] 08/05/17 0756 MR#: [id number] Acct: [id number] Name: DIANA ESCUDERO Rep #: [id number] : 1950 67 From: Marcus Garza MD Attending Dr: Kelly Hannah MD Status: REG REF Ordering Dr: Date: 08/05/17 Location: [facility] Sex: F C Admitted: Carotid Duplex [...] Garza MD on 08/05/2017 09:30 PM 08/05/17 7970 Date Marcus Garza MD CC: Kelly Hannah MD Date Dictated: 08/05/17 075 T ranscribed: 08/05/172129 Mess Attendant Crew: Signed 15-Jul-2017 Cardiology Visit Report Result: Comments: See Note; NOTES: [facility] [address] [place] [address] OFFICE VISIT Date of Service: 07/15/17 MR#: [id number] Acct: [id number] Name: DIANA ESCUDERO Rep #: [id number] : 1950 Provider: Puneet Alexander MD Age/Sex: 67/F Location: [facility] Status: Signed [facility] [...] Hyperlipidemia (Chronic) Atherosclerosis of coronary artery of creek heart without angina pectoris (Chronic) Blood glucose [...] (CAD), BILAT Result: Comments: See Note; NOTES: [facility] Imaging Services [address] [place] [address] SCREENING MAMM (CAD), BILAT MR#: [id number] Acct: [id number] Name: DIANA ESCUDERO Rep # : [id number] : 1950 F 67 From: Aaron Salgado MD PCP: Kelly Hannah MD Status: REG CLI Study: SCREENING MAMM (CAD), BILAT Date of Exam: 04/19/17 Exam# [id number] Ordering Dr: Kelly Hannah MD MAMMOGRAPHY - [...] delay biopsy of a clinically suspicious abnormality. [id number] Electronically Signed: Aaron Salgado MD at 8:33 EDT Tel [phone], Service support , CC: Kelly Hannah MD Mess Attendant Crew: Signed 16-Sep-2016 Echocardiogram Complete Result: Comments: See Note; NOTES: [facility] Cardiovascular Services [address] [place] [address] Echo Complete 09/16/16 0956 MR#: [id number] Acct: [id number] Name: DIANA ESCUDERO Rep #: [id number] : 1950 66 From: Emil Craven MD Attending Dr: Kelly Hannah MD Status: REG CLI Ordering Dr: Kelly Hannah MD Date: 09/16/16 Location: [facility] Sex: F C Admitted: Reason For [...] Dictated: 09/16/16 0956 Date Transcribed: 09/16/16 1145 Mess Attendant Crew: Signed 04-Sep-2016 CTA Chest W/WO Contrast Result: Comments: See Note; NOTES: [facility] Imaging Services [address] [place] [address] Verdana 4d CTA Chest W/WO Contrast MR#: [id number] Acct: [id number] Name: DIANA ESCUDERO Alejandra Rep #: [id number] : 1950 F 66 From: Aaron Salgado MD PCP: Kelly Hannah MD Status: REG ER Study: CTA Chest W/WO Contrast Date of Exam: 09/04/16 Exam# [id number] Ordering Dr: Leanne Finn STUDY: CTA CHEST [...] Burak Salgado MD at 11:40 EDT Tel [phone], Service support [phone], CC: Leanne Finn MD; Kelly Hannah MD Mess Attendant Crew: Signed 23-Jun-2016 Dexa Bone Density Study (HP) Result: Comments: See Note; NOTES: [facility] Imaging Services [address] [place] [address] Verdana 4d Dexa Bone Density Study () MR#: [id number] Acct: [id number] Name: EDUARDO ESCUDERO OLGA Rep #: [id number] : 1950 F 66 From: Aaron Salgado MD PCP: Kelly Hannah MD Status: REG CLI Study: Dexa Bone Density Study () Date of Exam: 06/23/16 Exam# [id number] Ordering Dr: Kelly Posey MD STUDY: DUAL [...] Aaron Salgado MD at 16:05 EST Tel [phone], Service support [phone], CC: Kelly Hannah MD Mess Attendant Crew: Signed 20-Apr-2016 Venous Duplex Lower Extremity Result: Comments: See Note; NOTES: [facility] Cardiovascular Services [address] [place] [address] Venous Duplex US, Unilateral 04/20/16 1428 MR#: [id number] Acct: [id number] Name: DIANA ESCUDERO Rep #: [id number] : 1950 66 From: Marcus Garza MD [...] Date Dictated: 04/20/16 1428 Date Transcribed: 04/20/162149 Mess Attendant Crew: Signed 23-Mar-2016 Bilat Scrn Digital AND CAD Result: Comments: See Note; NOTES: [facility] Imaging Services [address] [place] [address] Verdana 4d Bilat Scrn Digital AND CAD MR#: [id number] Acct: [id number] Name: ANGELA ESCUDERO Rep #: [id number] : 1950 F 66 From: Aaron Salgado MD PCP: Kelly Hannah MD Status: REG CLI Study: Bilat Scrn Digital AND CAD Date of Exam: 03/23/16 Exam# [id number] Ordering Dr: Kelly Resendiz i, MD MAMMOGRAPHY [...] delay biopsy of a clinically suspicious abnormality. [id number] Electronically Signed: Aaron Salgado MD at 7:51 EDT Tel [phone], Service support [phone], CC: Kelly Hannah MD Mess Attendant Crew: Signed 02-Jan-2016 Venous Duplex Lower Extremity Result: Comments: See Note; NOTES: [facility] Cardiovascular Services [address] [place] [address] Venous Duplex US - Johnny Extrem 01/02/16 1454 MR#: [id number] Acct: [id number] Name: DIANA ESCUDERO Rep #: [id number] : 1950 65 From: Marcus Garza MD [...] Date Dictated: 01/02/16 1454 Date Transcribed: 01/02/161653 Mess Attendant Crew: Signed 12-Dec-2015 12 Lead Electrocardiogram Result: Comments: See Note; NOTES: [facility] Cardiovascular Services [address] [place] [address] 12 Lead EKG 12/03/15 1125 MR#: [id number] Acct: [id number] Name: DIANA DOWLING OLGA Rep #: [id number] : 1950 65 From: Puneet Alexander MD [...] normal ECG Confirmed by PUNEET ALEXANDER ([id number]), online editor SHIELA DOWELL (56) on 12/09/2015 10:54:37 AM Referred By: KIRT Confirmed By:PUNEET ALEXANDER 12/09/15 1054 Date ___ Puneet Alexander MD CC: Kelly Hannah MD Date Dictated: 12/03/151124 Date Transcribed: 12/03/151124 Mess Attendant Crew: Signed 03-Dec-2015 Emergency Department Summary Result: Comments: See Note; NOTES: [facility] Medical Records Department [address] [place] [address] Emergency Department Summary MR#: [id number] Acct: [id number] Name: DIANA ESCUDERO OLGA Rep #: [id number] : 1950 65 From: Leanne Finn MD [...] PCP. DIAGNOSIS: Pleurisy. Leanne Finn MD T: [facility] JOB: [id number] 12/03/15 1536 <Electronically signed by Leanne Finn MD& #62; Date Leanne Finn MD Cosigner Signature (If Indicated): Date CC: Kelly Hannah MD Da te Dictated: 12/03/15 1357 Date Transcribed: 12/03/151356 Mess Attendant Crew: Signed 03-Dec-2015 Discharge Instruction Result: Comments: See Note; NOTES: [facility] Medical Records Department [address] [place] [address] Discharge Instruction 12/03/15 1354 MR#: [id number] Acct: [id number] Name: DIANA ESCUDERO OLGA Rep #: [id number] : 1950 65 From: Leanne Finn MD [...] problems, contact your doctor. Call [facility] ([phone]) or report to the closest Emergency Room. Call 911 if necessary. 12/03/15 1357 &# 60;Electronically signed by Leanne Finn MD> Date Leanne Finn MD Cosigner Signature (If Indicated): Date CC: Kelly Hannah MD 03-Dec-2015 CTA Chest W/WO Contrast Result: Comments: See Note; NOTES: [facility] Imaging Services [address] [place] [address] Verdana 4d CTA Chest W/WO Contrast MR#: [id number] Acct: [id number] Name: DIANA MENESES Rep #: [id number] : 1950 F 65 From: Aaron Salgado MD PCP: Kelly Hannah MD Status: REG ER Study: CTA Chest W/WO Contrast Date of Exam: 12/03/15 Exam# [id number] Ordering D r: Leanne Finn MD STUDY: [...] Aaron Salgado MD at 13:37 EDT Tel [phone], Service support [phone], CC: Leanne Finn MD; Kelly Hannah MD Mess Attendant Crew: Signed 24-Jul-2015 Sleep Study Report Result: Comments: See Note; NOTES: [facility] SLEEP DISORDER [facility] [address] [place] [address] Split Night Sleep Study MR#: [id number] Acct: [id number] Name: Miguel Angel ESCUDERO Rep #: [id number] : 1950 65 From: Jimmy Coates MD [...] version). Please note that a reference to [facility] AHI in this report is consistent with the current Hypopnea definition according to Medicare Criteria and an AAS AHI reference is consistent wit h the current Hypopnea definition according to the AASM criteria and is recognized by [facility] as the RDI. PROCEDURE: The study was attended continuously by a civil laboratory technician. Monitored parameters inclu ded left and [...] calculated body mass index of 35 and [place] Francis Sleepiness Scale score of 6/20. The patient [...] and heated humidity. SLEEP STUDY DATA: The [facility] split night study began at 1114:07 [...] patient is to have a download of [employer]. If the AHI remained elevated, can empirically [...] M.D. William Novak, MD T: [facility] JOB: [id number] CC: Jimmy Coates MD DD: 08/06 4207/24/152204 <Electronically signed by Jimmy Coates MD> Date Jimmy Coates MD Co-signature (if appli cable) Date Signed 12-Feb-2015 Chest 1 View (Portable) Result: Comments: See Note; NOTES: [facility] Imaging Services [address] [place] [address] Radiology Report MR#: [id number] Acct: [id number] Name: DIANA ESCUDERO OLGA Rep #: [id number] : 1950 F 65 From: Aaron Salgado MD PCP: Kelyl Hannah MD Status: PRE ER Study: Chest 1 View (Portable) Date of Exam: 02/12/15 Exam# [id number] Ordering Dr: Kenroy Arciniega MD DY: X-RAY [...] Aaron Salgado MD at 11:08 EDT Tel [phone], Service support [phone], RAD/Chest 1 View (Portable) IMPRESSION: No acut e abnormality is seen. Electronically Signed: Aaron Slagado MD at 11:08 EDT Tel [phone], Service support [phone], CC: Kelly Hannah MD; Kenroy Arciniega MD Mess Attendant Crew: Signed 12-Feb-2015 CTA Chest W/WO Contrast Result: Comments: See Note; NOTES: [facility] Imaging Services [address] [place] [address] CAT Scan Report MR#: [id number] Acct: [id number] Name: DIANA ESCUDERO Rep #: [id number] : 1950 F 65 From: Aaron Salgado MD PCP: Kelly Hannah MD Status: REG ER Study: CTA Chest W/WO Contrast Date of Exam: 02/12/15 Exam# [id number] Ordering Dr: Kenroy Arciniega MD UDY: CTA [...] Aaron Salgado MD at 12:08 EDT Tel [phone], Service support [phone], CC: Kelly Hannah MD; Kenroy Arciniega MD Mess Attendant Crew: Signed 11-Jan-2015 Bilat Scrn Digital AND CAD Result: Comments: See Note; NOTES: [facility] Imaging Services [address] [place] [address] Breast Imaging Report MR#: [id number] Acct: [id number] Name: DIANA ESCUDERO Rep #: [id number] : 1950 F 64 From: Shaan Nunez DO PCP: Kelly Hannah MD Status: REG CLI Study: Bilat Scrn Digital AND CAD Date of Exam: 01/11/15 Exam# [id number] Ordering Dr: Kelly Hannah MD MAMMOGRAPHY - [...] facility within 30 days. According to [employer], yearly mammograms are recommended starting [...] Shaan Nunez DO at 10:22 EDT Tel [phone], Service support [phone], CC: Kelly Hannah MD Mess Attendant Crew: Signed 23-Jul-2014 CTA Chest W/WO Contrast Result: Comments: See Note; NOTES: [facility] Imaging Services [address] [place] [address] CAT Scan Report MR#: [id number] Acct: [id number] Name: DIANA ESCUDERO Rep #: [id number] : 1950 F 64 From: Aaron Salgado MD PCP: Kelly Hannah MD Status: REG CLI Study: CTA Chest W/WO Contrast Date of Exam: 07/23/14 Exam# [id number] Ordering Dr: Kelly Hannah MD S TUDY: [...] Aaron Salgado MD at 12:47 EST Tel [phone], Service support [phone], CC: Kelly Hannah MD Mess Attendant Crew: Signed 04-Jan-2014 Consultation Result: Comments: See Note; NOTES: [facility] Medical Records Department [address] [place] [address] Consultation 01/04/14 1218 MR#: [id number] Acct: [id number] Name: DIANA ESCUDERO Rep #: [id number] : 1950 63 From: Juancho Foy MD PCP: Kelly Hannah MD Status: REG [facility] Y Location: [place] [address] Problem List (1) Bradycardia Status: Acute (2) [...] PO Q4H PRN PRN #30 tablet 01/04/14 [Neal 5/325] Surgical History: appendectomy, cholecystectomy, - - Hysterectomy Psychiatric History: No pertinent psych hx 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: No pertinent 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 Lives: Spouse/ Significant Other Smoking [...] Discharge Instruction Result: Comments: See Note; NOTES: [facility] Medical Records Department [address] [place] [address] Instructions for Home/Discharge Instructions 01/04/14 0731 MR#: [id number] Acc t: [id number] Name: DIANA ESCUDERO OLGA Rep #: [id number] : 1950 63 From: Anatoly Diego MD PCP: Kelly Hannah MD Status: REG [facility] Discharge Diet: No [...] PRN PRN #60 capsule Hydrocodone Bitart/Apap 5-325 [Neal 5/325] 1 tablet PO Q4H PRN PRN #30 tablet Please Follow Up With: Anatoly Diego When: 2-3 weeks Proposed Discharge Date: 01/05/14 01/04/14 0735 <Electronically signed by Anatoly Diego MD> Date Anatoly Diego MD CC: Kelly Hannah MD 10-Oct-2013 EKG (59609) Comments: see scanned document of test done to see results reviewed today with patient Result: [MEASUREMENTS ANALYSIS] Date of Test: 10/10/2013 08:20:27; Heart Rate: 64; [place] Interval: 160; QRS: 90; QT Interval: 394; Corrected QT Interval (QTc): 401; P Wave [place]: 50; QRS Wave [place]: 5; T Wave [place]: 14; Blood Pressure: 122/78 [ECG DIAGNOSTIC STATEMENTS] [...] week Status: Active 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 Status: Active Living Situation: Lives with domestic partner. Comments: , Confucianist Status: Active No Caffeine Use Status: Active [...] Height 0 in Head Circumference 0.00 cm 3-Nwh-539113:12 Temperature 97.9 f Comments: Method: Oral Pulse [...] 0.00 cm Results Date Description Value Details 9-Nmf-365761:24 Urinalysis, Office (18661) UA - LEUKOCYTE ESTERASE Negative (Normal) UA - NITRITE Negative (Normal) URINE UROBILINGN FRANKO TIMED Normal mg/dL (Normal) UA - PROTEIN Negative mg/dL (Normal) UA - PH 6 (Abnormal) UA - BLOOD Negative (Normal) UA - SPECIFIC GRAVITY 1.020 (Normal) UA - KETONES Negative mg/dL (Normal) UA - BILIRUBIN Negative (Normal) UA - GLUCOSE Negative (Normal) 49-Asv-83268:40 Urinalysis, Complete Comments: Order Date: 05/19/18Has pt arrived? YHow was Urine Obtained? FINISHER WALLBOARD AND PLASTERBOARD TO [facility] [address] [place], [place], [id number] MUCUS, URINE 0 SEEN {/hpf} (Normal) BACTERIA [...] CLARITY Sl. Cloudy (Normal) COLOR Yellow (Normal) 57-Dlx-24935:26 Basic Metabolic Profile (BMP) Comments: [facility] [address] [place], [place], [id number] GAP 5 (Normal) Range: 5-15 CO2 29.0 [...] A.D.A. criteria.Please note revised GLUCOSE reference range bvogzbsfc22/02/2018. 89-Hmt-99592:26 CBC W/Diff, Automated Comments: [facility] Irbzmzjxcn[address] [place], [place], [address] Absolute Lymph 2.03 {X10_3/ul} (Normal) Range: 0.83-4.51 [...] Range: 4.4-11.0 :26 Partial Thromboplast Time Comments: [facility] Ngawritefr8195 [facility] [place], [place], [address] PTT 28.1 s (Normal) Range: 24.1-36.2 :26 Prothrombin Time w/INR Comments: [facility] Mczdzxhnon7[address] [facility] [place], [place], [address] INR 1.0 (Normal) PROTIME 12.7 s (Normal) Range: 11.7-14.9 :26 Troponin-I Comments: [facility] Yozjmhicnf5034 [facility] [place], [place], [address] TROPONIN-I < 0.015 ng/mL (Normal) Comments: TROPONIN-I EXPECTED VALUES <0.045 Negative 0.045 - 0.590 Consistent with Cardiac Damage > OR = 0.600 Critical Value Not every elevated troponin is indicative of IN. T hesevalues should be used with clinical judgement in examiningthe patient's clinical picture for diagnosis. To establisha diagnosis of IN versus myocardial injury, there must be ademonstrated rise and/ or fall in the troponin values, inaddition to ischemic symptoms, EKG changes, new regionalwall motion abnormality, and/or angiographical evidence. PLEASE NOTE: REFERENCE RANGES EDITED 11/01/1719-May-20187:13 Bedside Glucose Comments: [facility] LaboratoryPoint of Iyzm[address] [place] [address] BEDSIDE GLU 101 mg/dL (Normal) Range: 70-110 Comments: MANAGEMENT OF PATIENT CARE PER NURSING PROTOCOL :16 LIPOPROTEIN, BLD, BY NMR Comments: PATIENT WAS FASTINGPERFORMED BY: LabCo[address] [id number] ([address]) LP-IR Score 81 (Abnormal) Comments: INSULIN RESISTANCE MARKER <--Insulin Sensitive Insulin Resistant--> Percentile in Reference PopulationInsulin Resistance ScoreLP-IR Score Low 25th 50th 75th High <27 27 45 63 >63LP-IR Score is inaccurate if patient is non-fasting. .The LP-IR score is a laboratory developed i [facility] that has beenassociated with insulin resistance and [...] 1600 - 2000 Very High > 2000 53-Vet-344648:35 Basic Metabolic Profile (BMP) Comments: [facility] Kutzonvabz[address] [place], [address] GAP 10 (Normal) Range: 5-15 CO2 30.0 [...] A.D.A. criteria.Please note revised GLUCOSE reference range fwodytbfv79/02/2018. 01-Dai-565888:35 CBC W/Diff, Automated Comments: [facility] [address] [place], [place], [address] Absolute Lymph 2.44 {X10_3/ul} (Normal) Range: 0.83-4.51 [...] K/mm3 (Normal) Range: 4.4-11.0 :35 Troponin-I Comments: [facility] [address] [place], [place], [address] TROPONIN-I < 0.015 ng/mL (Normal) Comments: TROPONIN-I EXPECTED VALUES <0.045 Negative 0.045 - 0.590 Consistent with Cardiac Damage > OR = 0.600 Critical Value Not every elevated troponin is indicative of IN. T hesevalues should be used with clinical judgement in examiningthe patient's clinical picture for diagnosis. To establisha diagnosis of IN versus myocardial injury, there must be ademonstrated rise and/ or fall in the troponin values, inaddition to ischemic symptoms, EKG changes, new regionalwall motion abnormality, and/or angiographical evidence. PLEASE NOTE: REFERENCE RANGES EDITED 11/01/1723-Sep-20178:28 Pathology Report Comments: PERFORMED BY: LUIS Momin [place] Vtrz0147 [facility] [id number] BY: [facility] Dermatopathology [address] [place] [id number] Information: [id number] See MATER Comments: Material submitted: .RIGHT HAND BIOPSYClinical history: .BLACK SPOT ON HAND Note (Normal) Diagnosis:BLUE NEVUS.TMZ/09/28/2017Electronically signed: .Mya Fay MD, DermatopathologistGross description: .RECEIVED IN FORMALIN LABELED DIANA ESCUDERO AND DESIGNATEDRIGHT HAND IS A PUGH SKIN PUNCH BIOPSY MEASURING 3.0 MM IN ANDREW METERAND 2.0 MM THICK WITH A OLIVAS, RAISED AREA 2.5 X 1.5 MM. SUBMITTEDIN TOTO.FUN/TMZPathologist provided ICD-10:D22.61CPT .085219 61-Ydm-42573:47 Platelet Count on Comments: PATIENT WAS FASTINGPERFORMED BY: CrossReader LabCoSendmybagOzvpthafqd1984 [facility] [id number] BY: LabCoAtlantiCare Regional [facility] Center, Main[facility] CampusYdmqmw8320 [facility] [id number] Citrated Bld Plt Count, Citrated Bld 160 {X10E3/uL} (Normal) Range: 150-379 94-Gcu-00788:47 LIPOPROTEIN, BLD, BY NMR Comments: PATIENT WAS FASTINGPERFORMED BY: [facility] Qisoiyhgpo0217 [facility] [id number] BY: LabPredict[employer] Lwrluy0753 [facility] [id number] Information: PLATELET ON CITRATE BLD 545479 (39467) LP-IR Score 85 (Abnormal) Comments: INSULIN RESISTANCE MARKER <--Insulin Sensitive Insulin Resistant--> Percentile in Reference PopulationInsulin Resistance ScoreLP-IR Score Low 25th 50th 75th High <27 27 45 63 >63LP-IR Score is inaccurate if patient is non-fasting. .The LP-IR score is a laboratory developed i [facility] that has beenassociated with insulin resistance and [...] 1600 - 2000 Very High > 2000 44-Kce-15229:43 Albumin/Creatinine Ratio,Urine Comments: PATIENT NOT FASTINGPERFORMED BY: Subblime6370 [facility] [id number] Alb/Creat Ratio <1.4 {mg/g_creat} (Normal) Range: 0.0-30.0 Albumin, Urine <3.0 ug/mL (Normal) Creatinine, Urine 212.4 mg/dL (Normal) 40-Rvr-15536:43 CBC With Differential/Platelet Comments: PATIENT NOT FASTINGPERFORMED BY: Subblime6370 [facility] IncRutherford Regional [facility] System [id number] Immature Grans (Abs) 0.0 {x10E3/uL} (Normal) Range: [...] 3.77-5.28 WBC 6.3 {x10E3/uL} (Normal) Range: 3.4-10.8 70-Lbh-71397:43 Comp. Metabolic Panel (14) Comments: PATIENT NOT FASTINGPERFORMED BY: [facility] Iwhgto1498 [facility] [id number] ALT (SGPT) 18 [iU]/L (Normal) Range: 0-32 [...] Glucose, Serum 100 mg/dL (Abnormal) Range: 65-99 86-Njj-40614:43 Urinalysis, Routine Comments: PATIENT NOT FASTINGPERFORMED BY: Calypto Design SystemsAtlantiCare Regional Medical Center, Mainland CampusDjhjvp2455 [facility] [id number] Microscopic Examination MICNIP (Normal) Comments: Microscopic not indicated and not performed. Nitrite, Urine Negative (Normal) Urobilinogen,Semi-Qn 0.2 mg/dL (Normal) Range: 0.2-1.0 Bilirubin Negative (Normal) Occult Blood Negative (Normal) Ketones Negative (Normal) Glucose Negative (Normal) Protein Negative (Normal) WBC Esterase Negative (Normal) Appearance Clear (Normal) Urine-Color Yellow (Normal) pH 6.0 (Normal) Range: 5.0-7.5 Specific [place] 1.025 (Normal) Range: 1.005-1.030 76-Fec-550008:21 FLU A+B DIRECT AG, (RAPID) (99237) FLU A+B DIRECT AG, (RAPID) negative (Normal) :32 Potassium Serum (65902) Comments: PATIENT NOT FASTINGPERFORMED BY: [employer] Systems[address] [id number] BY: [address] [id number] Potassium, Serum 3.9 mmol/L (Normal) Range: 3.5-5.2 :32 Magnesium (81688) Comments: PATIENT NOT FASTINGPERFORMED BY: [place] [address]70 [facility] [id number] BY: [address] [id number] Magnesium, Serum 2.0 mg/dL (Normal) Range: 1.6-2.3 :32 CCP ANTIBODY (62160) Comments: PATIENT NOT FASTINGPERFORMED BY: [place] 4860570 [facility] [id number] BY: [address] [id number] CCP Antibodies IgG/IgA 10 {units} (Normal) Range: 0-19 Comments: Negative <20 Weak positive 20 - 39 Moderate positive 40 - 59 Strong positive >59 :32 TSH (36201) Comments: PATIENT NOT FASTINGPERFORMED BY: [place] [address]70 [facility] [id number] BY: [address] [id number] TSH 3.380 {uIU/mL} (Normal) Range: 0.450-4.500 :32 SED RATE ERYTHROCYTE Comments: PATIENT NOT FASTINGPERFORMED BY: [place] [address]70 [facility] [id number] BY: [address] [id number] (92211) Sedimentation Rate-Westergren 14 mm/h (Normal) Range: 0-40 50-Ubg-18733:32 C-REACTIVE PROTEIN (48206) Comments: PATIENT NOT FASTINGPERFORMED BY: [place] [address]70 [facility] [id number] BY: [address] [id number] C-Reactive Protein, Quant 3.5 mg/L (Normal) Range: 0.0-4.9 :32 JESUS ALBERTO (ANTINUCLEAR ANTIBODY) Comments: PATIENT NOT FASTINGPERFORMED BY: [place] 48[address]70 [facility] [id number] BY: [facility] [address] [id number]; fu 3-30 (00627) JESUS ALBERTO Direct Negative (Normal) 59-Vlf-014573:37 Basic Metabolic Profile (BMP) Comments: 'TROP' Serial specimen #1, #2, #3, or #4: [facility] Rtihevsqgl2[address] [place], [address] GAP 8 (Normal) Range: 5-15 [...] <126 mg/dLsuggests IMPAIRED HOMEOSTASIS per A.D.A. criteria. 18-Nyk-690338:37 CBC W/Diff, Automated Comments: [facility] Um[address]xnhkmx[address] [place], [address] Absolute Lymph 1.93 {X10_3/ul} (Normal) [...] 4.2-5.4 WBC 5.9 K/mm3 (Normal) Range: 4.4-11.0 87-Lph-795122:37 Troponin-I Comments: 'TROP' Serial specimen #1, #2, #3, or #4: [address] [place] [address] S[address]ydjjwn[address] [place], [place], [address] TROPONIN-I < 0.02 ng/mL (Normal) Comments: TROPONIN-I EXPECTED VALUES <0.05 NEGATIVE 0.06 - 0.59 AT RISK OF IN > OR = 0.60 SUGGEST IN 92-Qpf-160678:16 HEPATITIS C ANTIBODY (94229) Comments: CLient bill for this; PATIENT NOT FASTINGPERFORMED BY: [facility] Jsvsab3312 [facility] [id number] Hep C Virus Ab <0.1 {s/co_ratio} (Normal) Range: 0.0-0.9 Comments: Negative: < 0.8 Indeterminate: 0.8 - 0.9 Positive: > 0.9 . The CDC recommends that a positive HCV antibody result be followed up with a HCV Nucleic Acid Amplification test (294490). :32 CBC W/Diff, Automated Comments: [facility] [address]fgq[address] [place], [place], [address] Absolute Lymph 2.31 {X10_3/ul} (Normal) Range: 0.83-4.51 [...] 1'CKMB' Serial Specimen #1, #2 or #3? [facility] Chbdthmzac7649 [place], [address] GAP 7 (Normal) Range: 5-15 [...] 1'CKMB' Serial Specimen #1, #2 or #3? [facility] Wplryrlnzo7[address] [place], [place], [address] CKRI 1.1 % (Normal) Range: 0.0-1.4 Comments: [...] 1'CKMB' Serial Specimen #1, #2 or #3? 1[facility] Vxixvacrrr[address] [place], [place], [address] TROPONIN-I < 0.02 ng/mL (Normal) Comments: TROPONIN-I EXPECTED VALUES <0.05 NEGATIVE 0.06 - 0.59 AT RISK OF IN > OR = 0.60 SUGGEST IN :30 CBC (Auto) (33395) Comments: PATIENT WAS FASTINGPERFORMED BY: LabCoNeoMedia Technologies Rhemcu5838 [facility] [id number] Platelets 165 {x10E3/uL} (Normal) Range: 150-379 RDW 13.8 % (Normal) Range: 12.3-15.4 MCHC 33.1 g/dL (Normal) Range: 31.5-35.7 MCH 31.2 pg (Normal) Range: 26.6-33.0 MCV 94 fL (Normal) Range: 79-97 Hematocrit 43.2 % (Normal) Range: 34.0-46.6 Hemoglobin 14.3 g/dL (Normal) Range: 11.1-15.9 RBC 4.59 {x10E6/uL} (Normal) Range: 3.77-5.28 WBC 6.6 {x10E3/uL} (Normal) Range: 3.4-10.8 :30 Metabolic Panel, Comments: PATIENT WAS FASTINGPERFORMED BY: LabCoAtlantiCare Regional Medical Center, Main[facility] CampusDkahkt0590 [facility] [id number] Information: [id number],Y47552 Comprehensive (13846) ALT (SGPT) 14 [iU]/L (Normal) Range: 0-32 [...] mg/dL (Normal) Range: 65-99 :30 Lipid Panel (01734) Comments: PATIENT WAS FASTINGPERFORMED BY: MasheryFormerly [facility] [id number] LDL/HDL Ratio 3.6 {ratio_units} (Abnormal) Range: 0.0-3.2 [...] (HGB A1C) Comments: PATIENT WAS FASTINGPERFORMED BY: [facility] [id number]; apt. 4-4 (75976) Hemoglobin A1c 5.8 % (Abnormal) Range: 4.8-5.6 Comments: . Pre-diabetes: 5.7 - 6.4 Diabetes: >6.4 Glycemic control for adults with diabetes: <7.0 30-Kmq-802809:59 Urinalysis, Office (70134) UA - LEUKOCYTE ESTERASE Negative (Normal) UA - NITRITE Positive (Normal) URINE UROBILINGN FRANKO TIMED 2 mg/dL (Normal) UA - PROTEIN Negative mg/dL (Normal) UA - PH 5 (Abnormal) UA - BLOOD Negative (Normal) UA - SPECIFIC GRAVITY 1.020 (Normal) UA - KETONES Negative mg/dL (Normal) UA - BILIRUBIN Negative (Normal) UA - GLUCOSE Negative (Normal) 51-Qzk-28521:00 Anticardiolip Ab, IgA/G/M, Comments: PATIENT WAS FASTINGPERFORMED BY: CB [facility] Bvuqyz7628 [facility] [id number] BY: TG [facility] NHN5643 [facility] [id number] Qn Anticardiolipin Ab,IgA,Qn <9 {APL_U/mL} (Normal) Range: [...] Positive: >20 - 80 High Positive: >80 63-Biw-013386:37 Basic Metabolic Profile (BMP) Comments: Serial Specimen #1, #2 or #3? 1'TROP' Serial specimen #1, #2, #3, or #4: 1Test performed at:[facility] Avhsmwneph[address] [place], [place] [address] GAP 7 (Normal) Range: 5-15 CO2 26.0 [...] Comments: Please note revised CREATININE reference range falfmodvi07/22/2015. BUN 16 mg/dL (Normal) Range: 7-18 GLU 134 mg/dL (Abnormal) Range: 70-110 Comments: Fasting Glucose result greater than or equal to 126 mg/dLsuggests DIABETES MELLITUS per A.D.A. criteria. 19-Fqb-141228:37 CBC W/Diff, Automated Comments: Test performed at:[facility] [address]uqrbsyv[address] [place], [place] [address] Absolute Lymph 2.35 {X10_3/ul} (Normal) Range: 0.83-4.51 [...] 4.2-5.4 WBC 7.4 K/mm3 (Normal) Range: 4.4-11.0 19-Sqj-393219:37 CK-MB Quantitative and Index Comments: Serial Specimen #1, #2 or #3? 1'TROP' Serial specimen #1, #2, #3, or #4: 1Test performed at:[facility] Ulbhadslcw5276 [facility] [place] [address] CPKMB 0.8 ng/mL (Normal) Range: 0.0-5.0 Comments: CK-MB and RI Interpretation MB Relative Index Non-AMI <or= 5 NA Indeterminate > 5 <or= 4 AMI > 5 > 4 CPK TOTAL 80 U/L (Normal) Range: 26-192 66-Mqn-728031:37 Troponin-I Comments: Serial Specimen #1, #2 or #3? 1'TROP' Serial specimen #1, #2, #3, or #4: 1Test performed at:[facility] Rotqhvgolk4491 [facility] [place] [address] TROPONIN-I < 0.02 ng/mL (Normal) Comments: TROPONIN-I EXPECTED VALUES <0.05 NEGATIVE 0.06 - 0.59 AT RISK OF IN > OR = 0.60 SUGGEST IN 42-Mud-083391:59 D-Dimer (59088) Comments: PATIENT NOT FASTINGPERFORMED BY: [facility] [address] [id number] BY: [facility] [address] [id number] D-Dimer 0.59 {mg/L_FEU} (Abnormal) Range: 0.00-0.49 Comments: In conjunction with a non-high clinical probability assessment, anormal (<0.50 mg/L FEU) result excludes deep vein thrombosis (DVT)and pulmonary embolism (PE) with high sensitivity. 73-Snt-43134:00 LIPID PANEL (94818) Comments: PATIENT WAS FASTINGPERFORMED BY: Calypto Design SystemsAtlantiCare Regional Medical Center, Mainland CampusEkxlxt1755 [facility] [id number] BY: [employer] LQZ2309 [facility] [id number] LDL/HDL Ratio 3.1 {ratio_units} (Normal) Range: 0.0-3.2 [...] Cholesterol, Total 177 mg/dL (Normal) Range: 100-199 66-Nuw-047106:59 Protein S Profile Comments: PATIENT NOT FASTINGPERFORMED BY: Calypto Design SystemsBrian Ville 671857 [facility] [id number] BY: Calypto Design SystemsAtlantiCare Regional Medical Center, Mainland CampusJvmnjz9363 [facility] [id number] Inf ormation: [id number] (00183) Protein S-Functional 119 % (Normal) Range: 60-145 Protein S, Free 108 % (Normal) Range: 56-124 Protein S, Total 137 % (Normal) Range: 58-150 27-Qts-701242:59 Protein C Profile Comments: PATIENT NOT FASTINGPERFORMED BY: Calypto Design SystemsBacharach Institute for RehabilitationEebzrxvfzv0827 [facility] [id number] BY: Calypto Design SystemsAtlantiCare Regional Medical Center, Mainland CampusFarafn6637 [facility] [id number] (34714) Protein C-Functional 120 % (Normal) Range: 74-151 Protein C Antigen 104 % (Normal) Range: 70-140 64-Hyr-15748:00 Homocysteine, Plasma Comments: PATIENT WAS FASTINGPERFORMED BY: Calypto Design SystemsAtlantiCare Regional Medical Center, Mainland CampusKgxuqa5199 [facility] [id number] BY: ShopReply SLU2904 [facility] [id number] (07164) Homocyst(e)ine, Plasma 11.2 umol/L (Normal) Range: 0.0-15.0 40-Son-576321:59 ANTITHROMBIN III ACTIVTY Comments: PATIENT NOT FASTINGPERFORMED BY: [employer] Systems[address] [id number] BY: [employer] Uzumhr7936 [facility] [id number] (28723) Antithrombin Antigen 94 % (Normal) Range: 75-130 Antithrombin Activity 108 % (Normal) Range: 75-135 59-Jct-555239:59 CLOTTING FACTOR II Comments: PATIENT NOT FASTINGPERFORMED BY: [employer] [id number] BY: [employer] Mxgvxa8845 [facility] ExpertsFormerly [facility], [facility] [id number] (79070) Factor II Activity 113 % (Normal) Range: 75-130 76-Tdv-64736:00 Factor V Leiden (70101) Comments: PATIENT WAS FASTINGPERFORMED BY: Prezi [employer]Predict[employer] Pnjgeh3050 [facility] ExpertsFormer[facility], [facility] [id number] BY: [employer] KBX2148 [facility] [id number] Factor V Leiden FVNEG3 (Normal) Comments: Result: [...] in the workup for venous thrombosis include talE03585P mutation in the factor II (prothrombin) gene,protein S and C deficiency, and antithromb in deficiencies.Anticardiolipin antibody and lupus anticoagulant analysismay be appropriate for certain patients, as well ashomocysteine levels. .Contact your local [facility] for information on how to orderadditional testing if desired. .Genetic counselors are available for health care* providers to discuss results at [phone] [phone]). .Methodology:DNA analysis of the Factor V gene [...] Chavez, PhDTara Jhaveri, PhDNgozi Cardozo, PhD . 41-Eph-40857:00 MTHFR (52323) Comments: PATIENT WAS FASTINGPERFORMED BY: CB [facility] Qjsequ0872 [facility] [id number] BY: TG [facility] LYO9145 [facility] [id number] MTHFR, DNA Analysis LO6304 (Normal) Comments: Result: C677T/C6231UUkt mutations (C677T and J9298T) identified .Interpretation: .This individual is heterzygous for both the MTHFR C677T and U7154Pnvxaihlq (one copy of each). Compound heterozygosity for the K261Trgk R9887M variants is unlikely to be of clinical [...] discuss these results with healthcare providers at [phone] [place]. .Methylenetetrahydrofolate reductase (MTHFR) is a ke y enzyme in thefolate pathway and is responsible for the metabolism of homocysteine.There are two common variants in the MTHFR gene, c.655C>T(p.Nzm218Toz), referred to as C677T, and c.1286A>C (p.G it076Kez),referred to as G6984O. Individuals homozygous for C677T (two copiesof the variant), have decreased activity of the MTHFR enzyme and apredisposition to hyperhomocysteinemia, particularly when d eficient infolate. Hyperhomocysteinemia is a risk factor for venous thrombosisand coronary artery disease and is associated with an increased riskof open neural tube defects. The C677T variant reilly s notindependently increase risk of these conditions in the absence ofhyperhomocysteinemia. The E6522C variant is not associated withelevated homocysteine levels unless a C677T variant is also present;h owever, the clinical significance of heterozygosity for both E978Mufc O1786F is controversial. Population data suggest that these twovariants are not present on the same chromosome, but rare exceptionsh ave been reported of triple variant MTHFR genotypes (ie. homozygousfor one variant and heterozygous for the other). Homozygosity rkqY751H has an estimated frequency of 10% to [...] PhDNgozi Cardozo, PhD :52 HgA1C , Office (45188) HgA1C , Office 5.8 % (Normal) Range: 4.6 - 7.1 :31 CBC With Differential/Platelet Comments: PATIENT WAS FASTINGPERFORMED BY: LabCoAtlantiCare Regional Medical Center, Main[facility] CampusSrzfnq0603 [facility] [id number] Information: [id number],C33587 Immature Grans (Abs) 0.0 {x10E3/uL} (Normal) Range: [...] Panel (14) Comments: PATIENT WAS FASTINGPERFORMED BY: LabCoAtlantiCare Regional Medical Center, Main[facility] CampusWjpjph8575 [facility] [id number] ALT (SGPT) 18 [iU]/L (Normal) Range: 0-32 [...] Glucose, Serum 103 mg/dL (Abnormal) Range: 65-99 14-Mzc-109805:04 Urinalysis, Office (22046) UA - PH 6.0 (Normal) UA - LEUKOCYTE ESTERASE Negative (Normal) UA - NITRITE Negative (Normal) URINE UROBILINGN FRANKO TIMED 2 mg/dL (Normal) UA - PROTEIN Negative mg/dL (Normal) UA - BLOOD Negative (Normal) UA - SPECIFIC GRAVITY 1.025 (Normal) UA - KETONES Negative mg/dL (Normal) UA - BILIRUBIN Negative (Normal) UA - GLUCOSE Negative (Normal) 46-Tyh-85470:51 POTASSIUM SERUM (12125) Comments: today; PATIENT NOT FASTINGPERFORMED BY: [facility] Ewmoba4623 [facility] [id number] Information: 172819,H10099 Potassium, Serum 3.8 mmol/L (Normal) Range: 3.5-5.2 7-Wey-695318:30 Basic Metabolic Profile (BMP) Comments: 'TROP' Serial specimen #1, #2, #3, or #4: 1'CKMB' Serial Specimen #1, #2 or #3? 1Test performed at:[facility] Haitpkihri4341 [facility] [place] [address] GAP 3 (Abnormal) Range: 5-15 [...] 7-18 GLU 89 mg/dL (Normal) Range: 70-110 8-Fpb-604414:30 CBC W/Diff, Automated Comments: Test performed at:[facility] Ndpltrpcwi2345 [facility] [place] [address] Absolute Lymph 2.01 {X10_3/ul} (Normal) [...] 4.2-5.4 WBC 6.0 K/mm3 (Normal) Range: 4.4-11.0 7-Yfg-411417:30 CK-MB Quantitative and Index Comments: 'TROP' Serial specimen #1, #2, #3, or #4: 1'CKMB' Serial Specimen #1, #2 or #3? 1Test performed at:[facility] Xzmpwngwur08[address] [place] [address] CPKMB 0.8 ng/mL (Normal) Range: 0.0-5.0 Comments: CK-MB and RI Interpretation MB Relative Index Non-AMI <or= 5 NA Indeterminate > 5 <or= 4 AMI > 5 > 4 CPK TOTAL 64 U/L (Normal) Range: 26-192 3-Qtm-858694:30 D-Dimer Quantitative (DVT/PE) Comments: Test performed at:[facility] Mgpsjbfqxl75[address] [place], [place] [address] D-DIMER QUANT 1.86 {FEU/ug/m} (Abnormal) Range: 0.27-0.49 Comments: D-Dimer ELEVATED (>0.49): Additional studies and clinicalassessments are indicated to conclude diagnosis of:Deep Vein Thrombosis (DVT) or Pulmonary Embolism (PE)CRITICAL VALUE REPEATED AND VERIFIED. CALLED TO SHRAVAN.RN07/23/14 1104 Ricci Delgado.RESULTS READ BACK BY SAME. 4-Ldt-996912:30 Troponin-I Comments: 'TROP' Serial specimen #1, #2, #3, or #4: 1'CKMB' Serial Specimen #1, #2 or #3? 1Test performed at:[facility] Jgcncyattz5305 [facility] [place], [place] [address] TROPONIN-I < 0.02 ng/mL (Normal) Comments: TROPONIN-I EXPECTED VALUES <0.05 NEGATIVE 0.06 - 0.59 AT RISK OF IN > OR = 0.60 SUGGEST IN :18 HgA1C , Office (34222) HgA1C , Office 5.7 % (Normal) Range: 4.6 - 7.1 :18 Blood Glucose , Office (23055) Blood Glucose , Office 106 (Normal) 76-Gwz-645128:20 CBCD ALC 2.30 {X10_3/ul} (Normal) Range: 0.83-4.51 [...] S. AUREUS S. aureus NegativeMRSA MRSA Negative 84-Yrp-648628:20 UAC Comments: ORDER URINE CULTUREIF POSITIVE NITRITE [...] Yellow (Normal) :54 Blood Glucose , Office (67388) Blood Glucose , Office 123 (Normal) Comments: Not Fasting :54 HgA1C , Office (74693) HgA1C , Office 6.0 % (Normal) Range: 4.6 - 7.1 :31 POTASSIUM SERUM (73661) Comments: patient having drawn in 2 wks; PATIENT NOT FASTINGPERFORMED BY: LabCoAtlantiCare Regional Medical Center, Main[facility] CampusHrfnwu3027 [facility] [id number] Information: [id number],[id number] Potassium, Serum 4.0 mmol/L (Normal) Range: 3.5-5.2 :20 Microscopic Examination Comments: PATIENT WAS FASTINGPERFORMED BY: LabCoAtlantiCare Regional Medical Center, Main[facility] CampusNtlshc1558 [facility] [id number] Bacteria Few (Normal) Mucus Threads Present (Normal) [...] A POSITIVE (Normal) :20 URINALYSIS, W/ MICRO (21790) Comments: PATIENT WAS FASTINGPERFORMED BY: [facility] [id number] Microscopic Examination See below: (Normal) Comments: Microscopic was indicated and was performed. Nitrite, Urine Negative (Normal) Urobilinogen,Semi-Qn 1.0 mg/dL (Normal) Range: 0.0-1.9 Bilirubin Negative (Normal) Occult Blood Negative (Normal) Ketones Negative (Normal) Glucose Negative (Normal) Protein Trace (Normal) WBC Esterase 2+ (Abnormal) Appearance Clear (Normal) Urine-Color Yellow (Normal) pH 6.5 (Normal) Range: 5.0-7.5 Specific [place] 1.023 (Normal) Range: 1.005-1.030 :20 METABOLIC PANEL, COMPREHENSIVE Comments: PATIENT WAS FASTINGPERFORMED BY: [employer] [address] [id number] (13086) ALT (SGPT) 20 [iU]/L (Normal) Range: 0-32 [...] Glucose, Serum 106 mg/dL (Abnormal) Range: 65-99 54-Nlo-74870:20 LIPID PANEL (61057) Comments: PATIENT WAS FASTINGPERFORMED BY: [facility] [id number] LDL/HDL Ratio 3.8 {ratio_units} (Abnormal) Range: 0.0-3.2 [...] MANUAL DIFF Comments: PATIENT WAS FASTINGPERFORMED BY: [facility]CoAtl[facility] CampusFwetnj[address] [id number] Information: [id number] (35568) Immature Grans (Abs) 0.0 {x10E3/uL} (Normal) Range: [...] (Normal) Range: 3.4-10.8 :09 HgA1C , Office (03697) HgA1C , Office 5.8 % (Normal) Range: 4.6 - 7.1 :09 Blood Glucose , Office (13427) Blood Glucose , Office 129 (Normal) Comments: [...] (Normal) Range: 70-110 :17 HgA1C , Office (99760) HgA1C , Office 5.9 % (Normal) Range: 4.6 - 7.1 :17 Blood Glucose , Office (24127) Blood Glucose , Office 107 (Normal) :15 PROL 10.4 ng/mL (Normal) Comments: NORMAL REFERENCE RANGESFEMALENON- 2.2 - 30.3 ng/mL 8.1 - 347.6 ng/mLPOST- MENOPAUSAL 0.7 - 31.5 ng/mLMALE 2.5 - 17.4 ng/mLNEW TEST METHO D & REFERENCE RANGES NOVEMBER 09, 2011; ADDENDA: has f/u on 06/08/13, will review then 82-Vjo-44536:28 BILAT SCRN DIGITAL & CAD Radiology Report [...] be sent to the patient by the [facility] within 30 days. Approximately 10% of breast cancers are not detected by mammography. Anormal mammogram should not delay biopsy of a clinically suspiciousabnormality. Signed:Payton DuttaMarch 15, 2013 at 7:58:55 AM [id number] Signed GP/GP If you are the referring physician and would like to consult with theradiologist who provided this interpretation, please co ntact Unique Yusuf at [phone]. If this radiologist is unavailable, youwill be [...] Dictated on 03/15/13 0 758 by Damian LFYNN,Galiranscribed on 03/15/13 0836 by ITS IMPORTSign by Aaron Salgado MD on 03/15/13 0837 Sign by: Aaron Salgado MD 41-Zsy-59274:25 Blood Glucose , Office (28287) Blood Glucose , Office 134 (Normal) :25 HgA1C , Office (26358) HgA1C , Office 5.8 % (Normal) Range: 4.6 - 7.1 4-Jmc-490442:22 PELVIC (NON ) Radiology Report See Note [...] Salgado M.D.January 23, 2013 at 2:31:38 PM [id number] Signed GP/GP If you are the referring physician and would like to consult with theradiologist who provided this interpretati on, please contact Unique Ysuuf at [phone]. If this radiologist is unavailable, youwill be directed to another radiologist to assist. If you are a patient with a question regarding this report, pleasecontactyour referring physician directly. Professional Interpretation Provided By: [employer], Phone , These documents contain legally protected [...] size of the right kidney. The right unxwegtwtphsrj41.4 cm. Ambika l renal cortex. The right cortex measures 1.0 cm. Thereisa 1.1 cm x 1.0 cm x 0.9 cm cyst in the inferior pole. There is no righthydronephrosis. Left Kidney: Normal size of the left kidney. The left kidney rrebaxsz29.5cm. Normal renal cortex. The left cortex measures 1.9 cm. There is nodemonstrated renal mass or cyst. There is no left hydronephrosis. Aorta: Unremarkable. I.V.C.: The IVC is pa tent. There is no ascites. IMPRESSION:Fatty infiltration of the liver. The patient is status postcholecystectomy. Signed:Aaron Salgado M.D.January 23, 2013 at 2:2 8:11 PM [id number] Signed GP/GP If you are the referring physician and would like to consult with theradiologist who provided this interpretation, please contact Payton Yusuf at [phone]. If this radiologist is unavailable, youwill be directed to another radiologist to assist. If you are a patient with a question regarding this report, pleasecontactyour referring phys ician directly. Professional Interpretation Provided By: [employer], Phone , These documents contain legally protected [...] Salgado M.D.January 23, 2013 at 2:31:38 PM [id number] Signed GP/GP If you are the referring physician and would like to consult with theradiologist who provided this interpretati on, please contact Unique Yusuf at [phone]. If this radiologist is unavailable, youwill be directed to another radiologist to assist. If you are a patient with a question regarding this report, pleasecontactyour referring physician directly. Professional Interpretation Provided By: [employer], Phone , These documents contain legally protected [...] 01/24/13 1043 Sign by: Aaron Salgado MD 66-Jai-933119:11 CBC, Platelets & Auto Comments: PATIENT NOT FASTINGPERFORMED BY: [facility]CoAtl[facility] CampusQsigda[address] [id number] Information: [id number] Diff (01753) Immature Grans (Abs) 0.0 {x10E3/uL} (Normal) Range: [...] (Normal) Range: 70-110 :33 HgA1C , Office (98919) HgA1C , Office 5.8 % (Normal) Range: 4.6 - 7.1 :53 METABOLIC PANEL, COMPREHENSIVE Comments: PATIENT WAS FASTINGPERFORMED BY: [facility]CoAtl[facility] CampusSmmpcd[address] [id number] (93274) ALT (SGPT) 19 [iU]/L (Normal) Range: 0-32 [...] Glucose, Serum 88 mg/dL (Normal) Range: 65-99 75-Pkh-886450:53 CBC WITH MANUAL DIFF Comments: PATIENT WAS FASTINGPERFORMED BY: [facility]CoAtl[facility] CampusYaxdpu[address] [id number] Information: [id number] (23205) Immature Grans (Abs) 0.0 {x10E3/uL} (Normal) Range: [...] 3.77-5.28 WBC 7.5 {x10E3/uL} (Normal) Range: 4.0-10.5 67-Muh-252124:53 LIPID PANEL (89175) Comments: PATIENT WAS FASTINGPERFORMED BY: [facility] [id number] LDL/HDL Ratio 3.3 {ratio_units} (Abnormal) Range: 0.0-3.2 [...] Salgado M.D.January 18, 2012 at 10:04:04 AM [id number] Signed GP/GP If you are the referring physician and would like to consult with theradiologist who pro vided this interpretation, please contact Unique Yusuf at [phone]. If this radiologist is unavailable, youwill be directed to another radiologist to assist. If you are a patient with a q uestion regarding this report, pleasecontactyour referring physician directly. Professional Interpretation Provided By: [employer], Phone , Dictated on 01/18/12 0759 by Damian FLYNN,Lauritascribed on 01/18/12 1010 by ITS IMPORTSign by Aaron Salgado MD on 01/18/12 1011 Sign by: Aaron Salgado MD 5-Spy-358197:43 MICROALBUMIN: CREATININE RATIO Comments: PATIENT WAS FASTINGPERFORMED BY: [facility] [id number] (87124) AND (10544) Microalb/Creat Ratio 1.4 {mg/g_creat} (Normal) Range: 0.0-30.0 Microalbumin, Urine 2.3 ug/mL (Normal) Range: 0.0-17.0 Creatinine, Urine 167.9 mg/dL (Normal) Range: 15.0-278.0 :43 METABOLIC PANEL, COMPREHENSIVE Comments: PATIENT WAS FASTINGPERFORMED BY: JERMAINE Bountii[address] [id number] (11218) ALT (SGPT) 24 [iU]/L (Normal) Range: 0-40 [...] Glucose, Serum 95 mg/dL (Normal) Range: 65-99 7-Raj-318728:43 LIPID PANEL (56583) Comments: PATIENT WAS FASTINGPERFORMED BY: JERMAINE [employer] [id number] LDL/HDL Ratio 3.2 {ratio_units} (Normal) Range: 0.0-3.2 LDL Cholesterol Calc 115 mg/dL (Abnormal) Range: 0-99 VLDL Cholesterol José Luis 29 mg/dL (Normal) Range: 5-40 HDL Cholesterol 36 mg/dL (Abnormal) Comments: According to ATP-III Guidelines, HDL-C >59 mg/dL is considered anegative risk factor for CHD. Triglycerides 146 mg/dL (Normal) Range: 0-149 Cholesterol, Total 180 mg/dL (Normal) Range: 100-199 1-Xhf-480694:43 CBC WITH MANUAL DIFF Comments: PATIENT WAS FASTINGPERFORMED BY: [facility]Fore[facility] [id number] Information: [id number] (59230) Immature Grans (Abs) 0.0 {x10E3/uL} (Normal) Range: [...] population. WBC 5.9 {x10E3/uL} (Normal) Range: 4.0-10.5 11-Bhb-055056:18 HgA1C , Office (03976) HgA1C , Office 6.1 % (Normal) Range: 4.6 - 7.1 86-Jpb-871899:18 Blood Glucose , Office (07111) Blood Glucose , Office 125 (Normal) 55-Qbk-102254:00 Thin prep Pap Comments: Source.............Cervical;EndocervicalNo. of containers..01 CYTYC Thin Prep VialPATIENT NOT FASTINGPERFORMED BY: LabCo[address] [id number] Information: [id number] (06499) Note: PAPSMR (Normal) Comments: The Pap smear [...] ; Routine gynecolog ical examina Imelda Batres Rocket Assembly Operator (ASCP) 08-Edo-01690:00 THU LEZAMA DIGITAL & CAD Radiology Report [...] 0620 Sign by: __ Aaron Salgado MD 0-Lvw-102009:24 CBC & PLATELETS (AUTO) Comments: PATIENT NOT FASTINGPERFORMED BY: [facility]CoAtl[facility] CampusSolvja[address] [id number] Information: [id number]; appt 11/28/10 (29217) MCH 31.6 pg (Normal) Range: 27.0-34.0 MCHC [...] 45 63 >63Performed at: S[facility] [address] [place], [place] [id number] Director: Stefano Mace PhD, Phone: [phone] HDL SIZE <TEST NOT PERFORMED> (Normal) INSULIN [...] TOT 209 mg/dL (Abnormal) LIPIDS . (Normal) 3-Lcp-551119:12 CULT, DP WOUND Comments: COMMENTS: CULTURE, SENSITIVITY,AREOBES, [...] STRIMETHOPRIM/SULFAMETHOXAZ $ <=10 SVANCOMYCIN $ 1 S 5-Vzh-380085:10 CBC Comments: COMMENTS: AC ROOM 6 HCT [...] 11.6-14.6 WBC 7.6 K/mm3 (Normal) Range: 4.4-11.0 43-Djx-92929:40 CULTURE, NOSE GRAM STAIN See Note (Normal) [...] 1 S :56 Blood Glucose , Office (62024) Blood Glucose , Office 102 (Normal) :56 HgA1C , Office (99007) HgA1C , Office 6.1 % (Normal) Range: 4.6 - 7.1 :49 MICROALBUMIN: CREATININE Comments: PATIENT WAS FASTINGPERFORMED BY: Fede [employer]0 [facility] [id number] BY: JERMAINE [employer] Systemsbutch CosmeSfjism[address] [id number] RATIO (09214) AND (09358) Microalb/Creat Ratio 2.3 {mg/g_creat} (Normal) Range: 0.0-30.0 Microalbumin, Urine 3.4 ug/mL (Normal) Range: 0.0-17.0 Creatinine, Urine 150.2 mg/dL (Normal) Range: 15.0-278.0 :49 LIPOPROTEIN, BLD, BY NMR Comments: PATIENT WAS FASTINGPERFORMED BY: Fede [employer]0 [facility] [id number] BY: JERMAINE LabCoAtlantiCare [facility] Main[facility] CampusPequgj[address] [id number] Information: ADD [id number] AND DRAW FEE 99 1570 (02839) LP-IR 83 Comments: The LP-IR Score combines [...] (Abnormal) Choleste 220 mg/dL galina, (Abnormal) Total 06-Ynk-23157:49 METABOLIC PANEL, Comments: PATIENT WAS FASTINGPERFORMED BY: Fede [employer]ated Yyn4477 Tomás [facility] [id number] BY: LabCo Lisasb[address] [id number] COMPREHENSIVE (37436) ALT (SGPT) 22 [iU]/L (Normal) Range: 0-40 [...] Glucose, Serum 107 mg/dL (Abnormal) Range: 65-99 37-Qdp-80378:49 LIPID PANEL (97225) Comments: PATIENT WAS FASTINGPERFORMED BY: Fede [employer] Iul3313 Tomás [facility] CentereiB[facility] [id number] BY: JERMAINE LabCoAtlantiCare [facility] Main[facility] CampusGsqqyn[address] [id number] LDL Cholesterol Calc 135 mg/dL (Abnormal) Range: 0-99 LDL/HDL Ratio 4.1 {ratio_units} (Abnormal) Range: 0.0-3.2 VLDL Cholesterol José Luis 52 mg/dL (Abnormal) Range: 5-40 HDL Cholesterol 33 mg/dL (Abnormal) Comments: According to ATP-III Guidelines, HDL-C >59 mg/dL is considered anegative risk factor for CHD. Triglycerides 261 mg/dL (Abnormal) Range: 0-149 Cholesterol, Total 220 mg/dL (Abnormal) Range: 100-199 91-Qby-25713:49 CBC WITH MANUAL DIFF Comments: PATIENT WAS FASTINGPERFORMED BY: Fede [employer] Wvi1947 [facility] [id number] BY: JERMAINE [facility] Fziuop[address] [id number] (17648) Baso (Absolute) 0.1 {x10E3/uL} (Normal) Range: 0.0-0.2 [...] 3.80-5.10 WBC 6.7 {x10E3/uL} (Normal) Range: 4.0-10.5 9-Cxm-758936:35 MARYJANE CULTURE-OTHER (84378) Comments: PATIENT NOT FASTINGPERFORMED BY: [facility] [id number] Information: SRC:THRT [id number] Result 1 RRF (Normal) Comments: Routine respiratory bin Upper Respiratory Culture Final report (Normal) 23-Jul-20098:07 Rapid Strep Test, Office (15718) Rapid Strep Test, Negative (Normal) Office 27-Feb-20098:2 Potassium, Serum 3.8 mmol/L (Normal) Comments: PATIENT WAS FASTINGPERFORMED BY: [facility] [id number] Range: 3.5-5.2 69-Fcl-443274:00 BILAT SCRN DIGITAL & CAD Radiology Report See Note (Normal) Comments: Exam Number: [id number] MAMMOGRAM, BILATERAL SCREENING DIGITAL AND CAD HISTORYRoutine [...] werealso examined with computer-aided detection s oftware ([employer] Reported By: KENNA SWEET M.D. 27-Feb-20098:24 Lipid Panel (51811) Comments: PATIENT WAS FASTINGClinical Information: ADD [id number], [id number] PERFORMED BY: [address] [place] [id number] Cholesterol, Total 224 mg/dL (Abnormal) Range: 100-199 HDL Cholesterol 31 mg/dL (Abnormal) Comments: According to ATP-III Guidelines, HDL-C >59 mg/dL is considered anegative risk factor for CHD. LDL Cholesterol Calc 122 mg/dL (Abnormal) Range: 0-99 LDL/HDL Ratio 3.9 {ratio_units} (Abnormal) Range: 0.0-3.2 Triglycerides 354 mg/dL (Abnormal) Range: 0-149 VLDL Cholesterol José Luis 71 mg/dL (Abnormal) Range: 5-40 99-Kkn-331088:16 JESUS ALBERTO (ANTINUCLEAR ANTIBODY) Comments: PATIENT NOT FASTINGPERFORMED BY: [employer] SystemsAshley V[place] [address] [id number] (60373) Antinuclear Antibodies Direct Negative (Normal) :16 C-REACTIVE PROTEIN (89347) Comments: PATIENT NOT FASTINGPERFORMED BY: [employer] Design SystemsAtlantiCare Regional Medical Center, Mainland CampusXbbyrn[address] [id number] C-Reactive Protein, Quant 8.0 mg/L (Abnormal) Range: 0.0-4.9 36-Wwu-244270:16 CBC (AUTO) (92775) Comments: PATIENT NOT FASTINGPERFORMED BY: [employer] SystemsAtlantiCare Regional Medical Center, Mainland CampusMzpjbi[address] [id number] Hematocrit 42.4 % (Normal) Range: 34.0-44.0 Hemoglobin 14.4 g/dL (Normal) Range: 11.5-15.0 MCH 31.9 pg (Normal) Range: 27.0-34.0 MCHC 34.0 g/dL (Normal) Range: 32.0-36.0 MCV 94 fL (Normal) Range: 80-98 Platelets 160 {x10E3/uL} (Normal) Range: 140-415 RBC 4.52 {x10E6/uL} (Normal) Range: 3.80-5.10 RDW 14.1 % (Normal) Range: 11.7-15.0 WBC 7.6 {x10E3/uL} (Normal) Range: 4.0-10.5 80-Zyg-004180:16 Folate (60004) Comments: PATIENT NOT FASTINGPERFORMED BY: [facility] [id number] Folate (Folic Acid), Serum 17.4 ng/mL (Normal) Comments: Indeterminate: 3.4 - 5.4 Deficient: <3.4 96-Vyy-645349:16 METABOLIC PANEL, COMPREHENSIVE Comments: PATIENT NOT FASTINGPERFORMED BY: [facility] [id number] (50335) A/G Ratio 1.2 (Normal) Range: 1.1-2.5 Albumin, [...] Sodium, Serum 142 mmol/L (Normal) Range: 135-145 65-Onc-035471:16 RHEUMATOID FACTOR-QUANT (92728) Comments: PATIENT NOT FASTINGPERFORMED BY: [facility] [id number] RA Latex Turbid. 9.3 {IU/mL} (Normal) Range: 0.0-13.9 :16 SED RATE ERYTHROCYTE (89409) Comments: PATIENT NOT FASTINGPERFORMED BY: LabStacy Ville 9[address]65[address] [id number] Sedimentation Rate-Westergren 21 mm/h (Normal) Range: 0-30 24-Brc-076822:16 TSH (54301) Comments: PATIENT NOT FASTINGPERFORMED BY: [place] [address] [id number] TSH 2.690 {uIU/mL} (Normal) Range: 0.450-4.500 17-Svg-525271:16 VITAMIN B-12 (CYANOCOBALAMIN) Comments: PATIENT NOT FASTINGPERFORMED BY: [place] [address] [id number] (33029) Vitamin B12 348 pg/mL (Normal) Range: 211-911 23-Jan-20099:35 Lipid Panel (15527) Comments: PATIENT WAS FASTINGClinical Information: ADD 868310, [id number] PERFORMED BY: [address] [id number] Cholesterol, Total 208 mg/dL (Abnormal) Range: 100-199 HDL Cholesterol 32 mg/dL (Abnormal) Comments: According to ATP-III Guidelines, HDL-C >59 mg/dL is considered anegative risk factor for CHD. LDL Cholesterol Calc 124 mg/dL (Abnormal) Range: 0-99 LDL/HDL Ratio 3.9 {ratio_units} (Abnormal) Range: 0.0-3.2 Triglycerides 261 mg/dL (Abnormal) Range: 0-149 VLDL Cholesterol José Luis 52 mg/dL (Abnormal) Range: 5-40 08-Kmb-385349:47 HgA1C , Office (70530) HgA1C , Office 5.8 % (Normal) Range: 4.6 - 7.1 72-Oao-055355:47 Blood Glucose , Office (42745) Blood Glucose , Office 128 (Normal) 44-Vse-684442:43 Urinalysis, Office (53044) UA - LEUKOCYTE ESTERASE Trace (Normal) UA [...] sinusitis Planned Observations TSH (THYROID STIMULATING HORMONE) (88175)Indication: Transient disorientation On: 6-Mwd-002343:23 Request LIPID PANEL (42943)Indication: Mixed hyperlipidemia On: 4-Mab-921948:45 Request Platelet 12641 (citrate, nonclumping tube)Indication: Thrombocytopenia, unspecified On: 22-Jul-20178:19 Request Metabolic Panel, Comprehensive (23106)Indication: Benign essential hypertension On: 86-Pvw-690792:46 Request MICROALBUMIN: CREATININE RATIO (66723) AND (63805)Indication: Benign essential hypertension On: 17-Ygq-891297:45 Request URINALYSIS (25078)Indication: Benign essential hypertension On: 69-Bla-454255:45 Request CBC WITH MANUAL DIFF (79036)Indication: Benign essential hypertension On: 84-Bck-856768:45 Request Platelet Count, Citrated (66765)Indication: Thrombocytopenia, unspecified On: :11 Request LIPOPROTEIN, BLD, BY NMR (62849)Indication: Mixed hyperlipidemia On: :07 Request Lipase (41765)Indication: Abdominal pain On: 89-Tic-216531:24 Request Comments: add to hospital labs. Amylase (50702)Indication: Abdominal pain On: 68-Eqh-365654:24 Request Comments: add to hospital labs. Antiphospholipid atb (09877)Indication: Pulmonary emboli On: :27 Request ANTICOAG ANTTHROMB III & ASSAY (63866)Indication: Pulmonary emboli On: :27 Request METABOLIC PANEL, COMPREHENSIVE (90546)Indication: Benign essential hypertension On: :37 Request Comments: in three months (approximately) CBC with auto diff (64905)Indication: Benign essential hypertension On: :37 Request Comments: in three months (approximately) Troponin I (97037)Indication: Chest pain at rest On: : Request CPK MB FRACTION (42014)Indication: Chest pain at rest On: : Request CREATINE KINASE TOTAL (74978)Indication: Chest pain at rest On: : Request D-Dimer (11506)Indication: Chest pain at rest On: 9-Cxp-021344:00 Request Metabolic Panel, Basic (58379)Indication: Chest pain at rest On: :58 Request CBC (Auto) (06421)Indication: Chest pain at rest On: :58 Request URINALYSIS, W/ MICRO (15478)Indication: Benign essential hypertension On: :29 Request METABOLIC PANEL, COMPREHENSIVE (65103)Indication: Benign essential hypertension On: :29 Request LIPID PANEL (79977)Indication: Benign essential hypertension On: :29 Request CBC W/AUTO DIFF WBC (89852)Indication: Benign essential hypertension On: :29 Request URINALYSIS (21920)Indication: UTI (lower urinary tract infection) On: :49 Request LIPID PANEL (60683)Indication: Benign essential hypertension On: :27 Request CBC WITH MANUAL DIFF (71840)Indication: Thrombocytopenia, unspecified On: :27 Request METABOLIC PANEL, COMPREHENSIVE (03606)Indication: Benign essential hypertension On: :27 Request TSH (THYROID STIMULATING HORMONE) (85904)Indication: Post-menopausal bleeding On: :37 Request PROLACTIN (72619)Indication: Post-menopausal bleeding On: 88-Pqw-72308:37 Request HEPATIC FUNCTION PANEL (33422)Indication: Hyperglyceridemia On: :05 Request LIPOPROTEIN, BLD, BY NMR (69117)Indication: Hyperglyceridemia On: :04 Request CBC, Platelets & Auto Diff (62885)Indication: Thrombocytopenia, unspecified On: :04 Request Comments: citrate tube Potassium Serum (15274)Indication: Hypokalemia On: 92-Rwx-082396:36 Request Planned Encounters Medical; JULIANNEP Pre Wellness Exam (DB Nurse) - On: 26-Jul-2018 8:00 [facility] SUZY Spencer; CARRIE Wellness Exam (Doctor) - On: 16-Aug-2018 8:00 [facility] Kelly Hannah MD, MD, Dana M Planned Procedures EEGBy: Kelly Hannah MD On: 21-May-2018 Intent Kelly FLYNN MRI OF BRAIN WITH AND WITHOUT On: 21-May-2018 Intent CONTRAST (78701)By: Kelly Hannah MD, MD, Dana M EKG (48309)By: Kelly Hannah MD On: 02-Dec-2017 Intent Kelly Hannah MD Radiology - Foot - LeftBy: Brielle On: 12-Aug-2017 Intent Kelly FLYNN MD, Dana M TDAP VACCINE >7 IM (29441)By: On: 22-Jul-2017 Intent Kelly Hannah MD, MD, Dana Comments: tdap 0.5mL prefilled syringelot:0YZ24wwy:10/2019L DELT IMpt tolerated wellAD SPECIAL EDUCATION TEACHING ASSISTANT M MAMMOGRAM BREAST BILATERAL SCREENING On: 02-Apr-2017 Intent DIGITAL (44565)By: Kelly Hannah MD, MD, Dana M Kenalog Injection, 10 mgm On: 15-Feb-2017 Intent (J3301)By: Kelly Hannah MD Comments: lot numer [id number] 05/08 marcaine [id number] 06/21/18 Kelly Hannah MD Echo CompleteBy: Kelly Hannah MD On: 10-Sep-2016 Intent Kelly Hannah MD Comments: rule out pericarditis and ? pericardial fluid EKG (38096)By: Kelly Hannah MD On: 04-Sep-2016 Intent Kelly Hannah MD Comments: see scanned document of test done to see results reviewed today with patient Bone Density StudyBy: Brielle FLYNN, On: 09-Jun-2016 Intent Kelly Hernandez MD Kenalog Injection, 10 mgm On: 21-Apr-2016 Intent (J3301)By: Kelly Hannah MD Comments: buupivacaine lot [id number] 06-21-17 kenalog [id number] 09-05 Kelly Hannah MD DOPPLER ULTRASOUND OF RIGHT UPPER On: 20-Apr-2016 Intent EXTREMITY FOR VENOUS THROMBOEMBOLISM (13688)By: Kelly Hannah MD, MD, Dana M MAMMOGRAM, SCREENING, BOTH BREAST On: 27-Feb-2016 Intent (91484)By: Kelly Hannah MD, MD, Dana M Venous Doppler - BothBy: Brielle FLYNN, On: 06-Dec-2015 Intent Kelly Hernandez MD Comments: lower legs rule out DVT ADMINISTRATION OF INFLUENZA VIRUS On: 18-Apr-2015 Intent VACCINE (G0008)By: Kelly Hannah MD Comments: Lot:[id number]:IMLocation:Rt deltoiiddose: .5mlGiven by:Kelly Potter MD FLU VAC, SPLIT, >3 YEARS, INTRAMUSC On: 18-Apr-2015 Intent (17358)By: Kelly Hannah MD Comments: Lot #:[id number] date:Amount given:0.5mlRoute: IMSite given:L DltdGiven by: Peyton CHAMPION and ABN signed Quad Flu Kelly Hannah MD BILATERAL MAMMOGRAMS (00795)By: On: 05-Nov-2014 Intent Kelly Hannah MD, MD, Dana M CT - Chest (IV Contrast Needed)By: On: 23-Jul-2014 Intent Kelly Hannah MD, MD, Dana M COMPUTED TOMOGRAPHY ANGIOGRAPHY OF On: 23-Jul-2014 Intent CHEST WITH AND WITHOUT CONTRAST Comments: rule out PE (46825)By: Kelly Hannah MD, MD, Dana M EKG (96409)By: Lindsey Verde DO On: 05-Jul-2014 Intent Comments: sinus johanny with no chg MAMMOGRAM, SCREENING, BOTH BREAST On: 26-Apr-2014 Intent (06753)By: Kelly Hannah MD, MD, Dana M BILATERAL MAMMOGRAMS (19433)By: On: 27-Mar-2014 Intent Kelly Hannah MD, MD, Dana M IMMUNIZ ADMNIN, 1 VAC, SNGL/COMBO On: 27-Mar-2014 Intent (80374)By: Kelly Hannah MD Comments: Lot #[id number]-L dltd, IMDose prefilled syringegiven by:MLJOE alanizNVIS and ABN signed Kelly Hannah MD FLU VAC, SPLIT, >3 YEARS, INTRAMUSC On: 27-Mar-2014 Intent (69403)By: Kelly Hannah MD, MD, Dana M Eprescribed prescriptions (G8553)By: On: 10-Oct-2013 Intent Kelly Hannah MD, MD, Dana M Phenergan Injection, up to 50 mg On: 22-Sep-2013 Intent (J2550)By: Nona Whiting CNP Comments: [id number], IM Nyla, SPECIAL EDUCATION TEACHING ASSISTANT INFUSION, NORMAL SALINE SOLUTION , On: 22-Sep-2013 Intent 1000 CC (Special Coverage Instructions Apply. See MCM: 2049) (J7030)By: Nona Whiting CNP HYDRATION IV INFUSION, INIT On: 22-Sep-2013 Intent (23990)By: Nona Whiting CNP Eprescribed prescriptions (G8553)By: On: 10-Jul-2013 Intent Nathalie Nicole Breast Screening - BilateralBy: On: 06-Feb-2013 Intent Kelly Hannah MD, MD, Dana M IMMUNIZ ADMNIN, 1 VAC, SNGL/COMBO On: 06-Feb-2013 Intent ([id number])By: [place] ([id number])By: Tj, On: 06-Feb-2013 Intent SUZY Ultrasound - Abdomen Complete & On: 18-Jan-2013 Intent PelvisBy: Nona Whiting CNP EKG ([id number])By: Kelly Hannah MD On: 12-Jul-2012 Intent Kelly Hannah MD Comments: see scanned document of test done to see results reviewed today with patient Eprescribed prescriptions ([id number])By: On: 12-Jul-2012 Intent Long SPECIAL EDUCATION TEACHING ASSISTANT, Nyla L MAMMOGRAM, SCREENING, BOTH BREASTS On: 06-Oct-2011 Intent ([id number])By: Kelly Hannah MD Comments: 11-04-11 Kelly Hannah MD MAMMOGRAM, SCREENING, BOTH BREASTS On: 28-Nov-2010 Intent ([id number])By: Kelly Hannah MD, MD, Dana M MAMMOGRAM, SCREENING, BOTH BREASTS On: 23-Oct-2010 Intent ([id number])By: Kelly Hannah MD, MD, Dana M EEGBy: Lindsey Verde DO On: 20-Aug-2010 Intent EKG ([id number])By: Kelly Hannah MD On: 20-Dec-2009 Intent Kelly Hannah MD EKG ([id number])By: Kelly Hannah MD On: 17-Jan-2009 Intent Kelly Hannah MD MAMMOGRAM, SCREENING, BOTH BREASTS On: 17-Jan-2009 Intent ([id number])By: Kelly Hannah MD, MD, Dana M Pulse Oximetry ([id number])By: Yung On: 04-Jul-2008 Intent Gabriela Comments: 98% Phenergan Injection, up to 50 mg On: 25-Apr-2008 Intent ([id number])By: Nona Whiting CNP Comments: 25mg given IMAmt: 1mlLot: [id number]: 03/2010Route: IMSite: left hipTolerated: wellGiven By: Sherlyn, SPECIAL EDUCATION TEACHING ASSISTANT INFUSION, NORMAL SALINE SOLUTION , On: 25-Apr-2008 Intent 1000 CC (Special Coverage Comments: IV Therapy initiated (Hamzah Black LPN)22G, 1inchSite: right wristTolerated: wellB. Ino LPN Instructions Apply. See MCM: 2048) ([id number])By: Nona Whiting CNP HYDRATION IV INFUSION, INIT On: 25-Apr-2008 Intent ([id number])By: Nona Whiting CNP FLU VAC, SPLIT, >3 YEARS, INTRAMUSC On: 21-May-2006 Intent ([id number])By: SUZY Spencer IMMUNIZ ADMNIN, 1 VAC, SNGL/COMBO On: 21-May-2006 Intent ([id number])By: SUZY Spencer Planned Medications INFUSION, NORMAL SALINE [...] for Tdap vaccination (Renamed from Need for uwackeleiv-xaoxrzu-ktsnofgao (Tdap) vaccine, adult/adolescent), Thrombocytopenia, unspecified Comprehensive Internal [...] Woman Exam (V72.31) (Pap,Mammo,Routine Female) (Renamed from [employer] Woman V72.31 (p,m)), Obesity (278.00), Thrombocytopenia, unspecified [...] Woman Exam (V72.31) (Pap,Mammo,Routine Female) (Renamed from [employer] Woman V72.31 (p,m)) Comprehensive Internal Medicine Annotation/Addendum On: 28-Nov-2010 9:33 Encounter Diagnosis: Well Woman Exam (V72.31) (Pap,Mammo,Routine Female) (Renamed from [employer] Woman V72.31 (p,m)) End: 28-Nov-2010 10:24 Comprehensive [...] Cold Symptoms: Pt just flew home from [place] yesterday.- yellow green nasal discharge- sx for [...]
--- OUTSIDE RECORDS SUMMARY | 2018-07-14 07:36 | XMS RPT_ITS | Continuity of Care Document ---
:1950 Author Organization [facility] Address [facility] [address] [place] [address] Phone Care Team Providers Name Role Phone [...] depression lost job was in . lost CHROMAom and she has to drive around. life withsomeone OCD, hoarder. on ambien for sleep per Dr. coates. Wellbutrin start but had insomni a in past. working with [employer]. doing okay on incresae welbutrin.tried Effexor, paxil [...] adipex and topamax. 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 got [...] 18-Apr-2015 End : 19-Apr-2015 Inactive BD Disp Ripley 30G X 1/2 Miscellaneous 1 (one) Misc [...] Inactive Comments:Medication taken as needed. called to [facility] 07-30-09 erussell disp 4 ounces no [...] Extended Release) 1 (one) Tablet ER at [facility] for 14 days for 0 days Quantity: 14 {Tablet_ER} Refills: 0 Ordered:02-May-2010 SUZY Spencer Start : 20-Dec-2009 End : 02-May-2010 Inactive NYSTATIN, 711665VGJN/ML (Mouth/Throat Suspension) 15 Suspension qid swish and swallow for 0 days Quantity: 450 {Milliliter} Refills: 0 Ordered:20-Aug-2010 Suzette Black LPN Start : 04-Aug-2010 End : 20-Aug-2010 Inactive PANTOPRAZOLE SODIUM, 40MG (Oral Tablet Delayed Release) 1 (one) Tablet DR daily for 0 days Quantity: 30 {Tablet} Refills: 6 Ordered:06-Dec-2015 SUZY Spencer Start : 20-Apr-2015 End : 06-Dec-2015 Inactive Pen Ripley 5/16 31G X 8 MM Miscellaneous 1 [...] Leanne Marie Start : 29-Jul-2009 Inactive ZOSTAVAX, 90778QLD/0.65ML (Subcutaneous Solution Reconstituted) uad For Solution one [...] in hospital and 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 ppi and carafate helping. [...] for Tdap vaccination (Renamed from Need for msfstdmcam-ovbbrmq-tvbekfgmq (Tdap) vaccine, adult/adolescent) (Z23, V06.1) Status: Resolved [...] Comments: not think needs atb yet. use [employer]in DM told when need to call for atb Status: Resolved as of 22-Jul-2017 WWV V73.21 Comments: scope in last 5 years Status: Inactive as of 06-Feb-2013 Procedures Procedure Dates Details appendectomy 1999 Completed cholecystectomy 1980 Completed D and C Completed Hysterectomy; Total Completed Comments: 2013 Knee Replacement, Total Completed Comments: 2007, 2013 bilateral LEFT HEART CARDIAC CATH (23216) Completed Comments: Dr. Alexander nasal abscess I and D 04-30 Completed Date Value Details 23-May-2018 Brain W/WO Contrast Result: Comments: See Note; NOTES: [facility] Imaging Services [address] [place] [address] Brain W/WO Contrast MR#: [id number] Acct: [id number] Name: DIANA ESCUDERO OLGA Rep #: [id number] : 1950 F 68 From: Jimmy Kang MD PCP: Kelly Hannah MD Status: REG CLI Study: Brain W/WO Contrast Date of Exam: 05/23/18 Exam# [id number] Ordering Dr: Kelly Hannah MD STUDY: MRI [...] rvice support , CC: Kelly Hannah MD Senior Sales Administrator: Signed 19-May-2018 Brain/Head without Contrast Result: Comments: See Note; NOTES: [facility] Imaging Services [address] [place] [address] Brain/Head without Contrast MR#: [id number] Acct: [id number] Name: DIANA ESCUDERO Rep # : [id number] : 1950 F 68 From: Kalia Galan PCP: Kelly Hannah MD Status: REG ER Study: Brain/Head without Contrast Date of Exam: 05/19/18 Exam# [id number] Ordering Dr: Puneet Johnson MD STUDY: C [...] CC: Kelly Hannah MD; Puneet Johnson MD Senior Sales Administrator: Signed 19-May-2018 Chest 1 View Result: Comments: See Note; NOTES: [facility] Imaging Services [address] [place] [address] Chest 1 View MR#: [id number] Acct: [id number] Name: DIANA ESCUDERO Rep #: [id number] : 1950 F 68 From: Aaron Salgado MD PCP: Kelly Hannah MD Status: REG ER Study: Chest 1 View Date of Exam: 05/19/18 Exam# [id number] Ordering Dr: Puneet Johnson MD STUDY: X-RAY [...] Aaron Salgado MD at 8:13 EST Tel [phone], Service support , CC: Kelly Hannah MD; Puneet Johnson MD Senior Sales Administrator: Signed 03-Mar-2018 Inital Evaluation (1) - PT Result: Comments: See Note; NOTES: [facility] Physical Therapy Health[address] [place] [address] Fax REHABILITATION SERVICES INITIAL EVALUATION MR#: [id number] Acct: [id number] Name: DIANA ESCUDERO Rep #: [id number] : 1950 68 From: Lazaro Jackson DPT [...] stabing pain (8/10) at rest. 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 Please let me know if there are questions or concerns regarding this plan of care. Physician Signature: Date: <Electronically signed by Lazaro Jackson DPT&amp ;#62; 03/03/18 1340 CC: GENOVEVA Myers; Kelly Hannah MD CLS Signed For Medicare only, by signing this I certify the plan of care. Physicians Signature Date 16-Feb-2018 12 Lead Electrocardiogram Result: Comments: See Note; NOTES: [facility] Cardiovascular Services [address] [place] [address] 12 Lead EKG 02/14/18 1459 MR#: [id number] Acct: [id number] Name: DIANA ESCUDERO OLGA Rep #: [id number] : 1950 68 From: Harris Brandt MD [...] Int : 401 ms Sinus bradycardia Inferior [place], age undeterm ined, cannot be excluded Confirmed by KEVIN FLYNN, HARRIS ([id number]), material expeditor SHIELA DOWELL (56) on 02/16/2018 1:34:57 PM Referred By: BRIEN Confirmed By:HARRIS BRANDT MD 02/16/18 1335 Date __ Harris Brandt MD CC: Kelly Hannah MD; Kasi Worley MD Signed 15-Feb-2018 Emergency Department Summary Result: Comments: See Note; NOTES: [facility] Medical Records Department [address] [place] [address] Emergency Department Summary 02/14/18 1636 MR#: [id number] Acct: [id number] Name: DIANA ESCUDERO Rep #: [id number] : 1950 68 From: Kasi Worley MD [...] score 1. This note was generated with Loom dictation software. It may contain incorrect words, [...] your Primary Care Provider. Call [facility] ([phone]) or report to the closest Emergency Room. Call 911 if necessary. 02/15/18 0046 <Electronically signed by Jose Daniel Worley MD> Date Kasi Worley MD Cosigner Signature (If Indicated): Date CC: Kelly Hannah MD 14-Feb-2018 Venous Duplex Lower Extremity Result: Comments: See Note; NOTES: [facility] Cardiovascular Services [address] [place] [address] Venous Duplex US, Unilateral 02/14/18 1549 MR#: [id number] Acct: [id number] Name: DIANA HICKMAN Rep #: [id number] : 1950 68 From: Abdoulaye Landa MD [...] 0 02/14/18 1549 Date Transcribed: 02/14/18 174 Senior Sales Administrator: Signed 14-Feb-2018 Chest 1 View (Portable) Result: Comments: See Note; NOTES: [facility] Imaging Services [address] [place] [address] Chest 1 View (Portable) MR#: [id number] Acct: [id number] Name: DIANA ESCUDERO Rep #: [id number] : 1950 F 68 From: Aaron Salgado MD PCP: Kelly Hannah MD Status: REG ER Study: Chest 1 View (Portable) Date of Exam: 02/14/18 Exam# [id number] Ordering Dr: Kasi Worley MD STUD Y: [...] Aaron Salgado MD at 15:52 EDT Tel [phone], Service support , CC: Kelly Salgado; Kasi Worley MD Senior Sales Administrator: Signed 24-Jan-2018 Cardiology Visit Report Result: Comments: See Note; NOTES: [facility] [address] [place] [address] OFFICE VISIT Date of Service: 01/24/18 MR#: [id number] Acct: [id number] Name: DIANA ESCUDERO Rep #: [id number] : 1950 Provider: Puneet Alexander MD Age/Sex: 67/F Location: [facility] Status: Signed HPI HPI Chief Complaint: [...] Visit Reasons: 6 M FU In [facility] Required: No Allergies simvastatin [From Zocor] [...] mg PO QDAY 01/24/18 [History Confirmed 01/24/18] [facility] Medical History Obstructive sleep apnea (Chronic) History of pulmonary embolism (Chr onic) Atherosclerosis of coronary artery of [place] heart without angina pectoris (Chronic) Hypertension (Chronic) [...] Plan 1. Atherosclerosis of coronary artery of [place] heart without angina pectoris I25.10 Non Obs [...] 3 Diagnoses Atherosclerosis of coronary artery of [place] heart without angina pect ranulfo I25.10 Hyperlipidemia E78.5 Coding Level of Care Code Off vis,est,level 3 Diagnoses Atherosclerosis of coronary artery of [place] heart without angina pectoris I25.10 Hyperlipidemia E78.5 12/06 1536 <Electronically signed by Puneet Alexander MD> Date Puneet Alexander MD Cosigner Signature: Date (if applicable) CC: Kelly Hannah MD 12-Aug-2017 Foot min 3 Views Result: Comments: See Note; NOTES: [facility] Imaging Services [address] [place] [address] Foot min 3 Views MR#: [id number] Acct: [id number] Name: DIANA ESCUDERO OLGA Rep #: [id number] : 1950 F 67 From: Aaron Salgado MD PCP: Kelly Hannah MD Status: REG CLI Study: Foot min 3 Views Date of Exam: 08/12/17 Exam# [id number] Ordering Dr: Kelly Hannah MD STUDY: X-RAY [...] Salgado MD 08/08/21 at 14:14 EST Tel [phone], Service support , CC: Kelly Hannah MD Senior Sales Administrator: Signed 05-Aug-2017 TXT - Blood Flow Screening Result: Comments: See Note; NOTES: [facility] Cardiovascular Services [address] [place] [address] 08/05/17 0756 MR#: [id number] Acct: [id number] Name: DIANA ESCUDERO Rep #: [id number] : 1950 67 From: Marcus Garza MD Attending Dr: Kelly Hannah MD Status: REG REF Ordering Dr: Date: 08/05/17 Location: [facility] Sex: F C Admitted: Carotid [...] Garza MD on 08/05/2017 09:30 PM 08/05/17 8420 Date Marcus Garza MD CC: Kelly Hannah MD Date Dictated: 08/05/17 075 T ranscribed: 08/05/172129 Senior Sales Administrator: Signed 15-Jul-2017 Cardiology Visit Report Result: Comments: See Note; NOTES: [facility] [address] [place] [address] OFFICE VISIT Date of Service: 07/15/17 MR#: [id number] Acct: [id number] Name: DIANA ESCUDERO Rep #: [id number] : 1950 Provider: Puneet Alexander MD Age/Sex: 67/F Location: [facility] Status: Signed [facility] 6 M FU: Chief Complaint: routin [...] Hyperlipidemia (Chronic) Atherosclerosis of coronary artery of [place] heart without angina pectoris (Chronic) Blood glucose [...] (CAD), BILAT Result: Comments: See Note; NOTES: [facility] Imaging Services [address] [place] [address] SCREENING MAMM (CAD), BILAT MR#: [id number] Acct: [id number] Name: DIANA ESCUDERO Rep # : [id number] : 1950 F 67 From: Aaron Salgado MD PCP: Kelly Hannah MD Status: REG CLI Study: SCREENING MAMM (CAD), BILAT Date of Exam: 04/19/17 Exam# [id number] Ordering Dr: Kelly Hannah MD MAMMOGRAPHY - [...] delay biopsy of a clinically suspicious abnormality. [id number] Electronically Signed: Aaron Salgado MD at 8:33 EDT Tel [phone], Service support , CC: Kelly Hannah MD Senior Sales Administrator: Signed 16-Sep-2016 Echocardiogram Complete Result: Comments: See Note; NOTES: [facility] Cardiovascular Services [address] [place] [address] Echo Complete 09/16/16 0956 MR#: [id number] Acct: [id number] Name: DIANA ESCUDERO Rep #: [id number] : 1950 66 From: Emil Craven MD Attending Dr: Kelly Hannah MD Status: REG CLI Ordering Dr: Kelly Hannah MD Date: 09/16/16 Location: [facility] Sex: F C Admitted: Reason [...] Dictated: 09/16/16 0956 Date Transcribed: 09/16/16 1145 Senior Sales Administrator: Signed 04-Sep-2016 CTA Chest W/WO Contrast Result: Comments: See Note; NOTES: [facility] Imaging Services [address] [place] [address] Verdana 4d CTA Chest W/WO Contrast MR#: [id number] Acct: [id number] Name: DIANA ESCUDERO Alejandra Rep #: [id number] : 1950 F 66 From: Aaron Salgado MD PCP: Kelly Hannah MD Status: REG ER Study: CTA Chest W/WO Contrast Date of Exam: 09/04/16 Exam# [id number] Ordering Dr: Leanne Finn STUDY: CTA CHEST [...] Burak Salgado MD at 11:40 EDT Tel [phone], Service support [phone], CC: Leanne Finn MD; Kelly Hannah MD Senior Sales Administrator: Signed 23-Jun-2016 Dexa Bone Density Study (HP) Result: Comments: See Note; NOTES: [facility] Imaging Services [address] [place] [address] Verdana 4d Dexa Bone Density Study () MR#: [id number] Acct: [id number] Name: EDUARDO ESCUDERO OLGA Rep #: [id number] : 1950 F 66 From: Aaron Salgado MD PCP: Kelly Hannah MD Status: REG CLI Study: Dexa Bone Density Study () Date of Exam: 06/23/16 Exam# [id number] Ordering Dr: Kelly Posey MD STUDY: DUAL [...] Aaron Salgado MD at 16:05 EST Tel [phone], Service support [phone], CC: Kelly Hannah MD Senior Sales Administrator: Signed 20-Apr-2016 Venous Duplex Lower Extremity Result: Comments: See Note; NOTES: [facility] Cardiovascular Services [address] [place] [address] Venous Duplex US, Unilateral 04/20/16 1428 MR#: [id number] Acct: [id number] Name: DIANA ESCUDERO Rep #: [id number] : 1950 66 From: Marcus Garza MD [...] Date Dictated: 04/20/16 1428 Date Transcribed: 04/20/162149 Senior Sales Administrator: Signed 23-Mar-2016 Bilat Scrn Digital AND CAD Result: Comments: See Note; NOTES: [facility] Imaging Services [address] [place] [address] Verdana 4d Bilat Scrn Digital AND CAD MR#: [id number] Acct: [id number] Name: ANGELA ESCUDERO Rep #: [id number] : 1950 F 66 From: Aaron Salgado MD PCP: Kelly Hannah MD Status: REG CLI Study: Bilat Scrn Digital AND CAD Date of Exam: 03/23/16 Exam# [id number] Ordering Dr: Kelly Resendiz i, MD MAMMOGRAPHY [...] delay biopsy of a clinically suspicious abnormality. [id number] Electronically Signed: Aaron Salgado MD at 7:51 EDT Tel [phone], Service support [phone], CC: Kelly Hannah MD Senior Sales Administrator: Signed 02-Jan-2016 Venous Duplex Lower Extremity Result: Comments: See Note; NOTES: [facility] Cardiovascular Services [address] [place] [address] Venous Duplex US - Johnny Extrem 01/02/16 1454 MR#: [id number] Acct: [id number] Name: DIANA ESCUDERO Rep #: [id number] : 1950 65 From: Marcus Garza MD [...] Date Dictated: 01/02/16 1454 Date Transcribed: 01/02/161653 Senior Sales Administrator: Signed 12-Dec-2015 12 Lead Electrocardiogram Result: Comments: See Note; NOTES: [facility] Cardiovascular Services [address] [place] [address] 12 Lead EKG 12/03/15 1125 MR#: [id number] Acct: [id number] Name: DIANA DOWLING OLGA Rep #: [id number] : 1950 65 From: Puneet Alexander MD [...] normal ECG Confirmed by PUNEET [place] ([id number]), material expeditor SHIELA DOWELL (56) on 12/09/2015 10:54:37 AM Referred By: KIRT Confirmed By:PUNEET [place] 12/09/15 1054 Date ___ Puneet Alexander MD CC: Kelly Hannah MD Date Dictated: 12/03/151124 Date Transcribed: 12/03/151124 Senior Sales Administrator: Signed 03-Dec-2015 Emergency Department Summary Result: Comments: See Note; NOTES: [facility] Medical Records Department [address] [place] [address] Emergency Department Summary MR#: [id number] Acct: [id number] Name: DIANA ESCUDERO OLGA Rep #: [id number] : 1950 65 From: Leanne Finn MD [...] PCP. DIAGNOSIS: Pleurisy. Leanne Finn MD T: [facility] JOB: [id number] 12/03/15 1536 <Electronically signed by Leanne Finn MD& #62; Date Leanne Finn MD Cosigner Signature (If Indicated): Date CC: Kelly Hannah MD Da te Dictated: 12/03/15 1357 Date Transcribed: 12/03/151356 Senior Sales Administrator: Signed 03-Dec-2015 Discharge Instruction Result: Comments: See Note; NOTES: [facility] Medical Records Department [address] [place] [address] Discharge Instruction 12/03/15 1354 MR#: [id number] Acct: [id number] Name: DIANA ESCUDERO OLGA Rep #: [id number] : 1950 65 From: Leanne Finn MD [...] problems, contact your doctor. Call [facility] ([phone]) or report to the closest Emergency Room. Call 911 if necessary. 12/03/15 1357 &# 60;Electronically signed by Leanne Finn MD> Date Leanne Finn MD Cosigner Signature (If Indicated): Date CC: Kelly Hannah MD 03-Dec-2015 CTA Chest W/WO Contrast Result: Comments: See Note; NOTES: [facility] Imaging Services [address] [place] [address] Verdana 4d CTA Chest W/WO Contrast MR#: [id number] Acct: [id number] Name: DIANA MENESES Rep #: [id number] : 1950 F 65 From: Aaron Salgado MD PCP: Kelly Hannah MD Status: REG ER Study: CTA Chest W/WO Contrast Date of Exam: 12/03/15 Exam# [id number] Ordering D r: Leanne Finn MD STUDY: [...] Aaron Salgado MD at 13:37 EDT Tel [phone], Service support [phone], CC: Leanne Finn MD; Kelly Hannah MD Senior Sales Administrator: Signed 24-Jul-2015 Sleep Study Report Result: Comments: See Note; NOTES: [facility] SLEEP DISORDER CENTER [address] [place] [address] Split Night Sleep Study MR#: [id number] Acct: [id number] Name: Miguel Angel ESCUDERO Rep #: [id number] : 1950 65 From: Jimmy Coates MD [...] version). Please note that a reference to [facility] AHI in this report is consistent with the current Hypopnea definition according to Medicare Criteria and an AAS AHI reference is consistent wit h the current Hypopnea definition according to the AASM criteria and is recognized by [facility] as the RDI. PROCEDURE: The study was attended continuously by a diazo technician. Monitored parameters inclu ded left and [...] calculated body mass index of 35 and Mar[place]hal Sleepiness Scale score of 6/20. The patient [...] and heated humidity. SLEEP STUDY DATA: The [facility] split night study began at 1114:07 p.m. [...] patient is to have a download of [employer]. If the AHI remained elevated, can empirically [...] M.D. William Novak, MD T: [facility] JOB: [id number] CC: Jimmy Coates MD DD: 08/06 4207/24/152204 <Electronically signed by Jimmy Coates MD> Date Jimmy Coates MD Co-signature (if appli cable) Date Signed 12-Feb-2015 Chest 1 View (Portable) Result: Comments: See Note; NOTES: [facility] Imaging Services [address] [place] [address] Radiology Report MR#: [id number] Acct: [id number] Name: DIANA ESCUDERO OLGA Rep #: [id number] : 1950 F 65 From: Aaron Salgado MD PCP: Kelly Hannah MD Status: PRE ER Study: Chest 1 View (Portable) Date of Exam: 02/12/15 Exam# [id number] Ordering Dr: Kenroy Arciniega MD DY: X-RAY [...] Aaron Salgado MD at 11:08 EDT Tel [phone], Service support [phone], RAD/Chest 1 View (Portable) IMPRESSION: No acut e abnormality is seen. Electronically Signed: Aaron Salgado MD at 11:08 EDT Tel [phone], Service support [phone], CC: Kelly Hannah MD; Kenroy Arciniega MD Senior Sales Administrator: Signed 12-Feb-2015 CTA Chest W/WO Contrast Result: Comments: See Note; NOTES: [facility] Imaging Services [address] [place] [address] CAT Scan Report MR#: [id number] Acct: [id number] Name: DIANA ESCUDERO Rep #: [id number] : 1950 F 65 From: Aaron Salgado MD PCP: Kelly Hannah MD Status: REG ER Study: CTA Chest W/WO Contrast Date of Exam: 02/12/15 Exam# [id number] Ordering Dr: Kenroy Arciniega MD UDY: CTA [...] Aaron Salgado MD at 12:08 EDT Tel [phone], Service support [phone], CC: Kelly Hannah MD; Kenroy Arciniega MD Senior Sales Administrator: Signed 11-Jan-2015 Bilat Scrn Digital AND CAD Result: Comments: See Note; NOTES: [facility] Imaging Services [address] [place] [address] Breast Imaging Report MR#: [id number] Acct: [id number] Name: DIANA ESCUDERO Rep #: [id number] : 1950 F 64 From: Shaan Nunez DO PCP: Kelly Hannah MD Status: REG CLI Study: Bilat Scrn Digital AND CAD Date of Exam: 01/11/15 Exam# [id number] Ordering Dr: Kelly Hannah MD MAMMOGRAPHY - [...] facility within 30 days. According to [employer], yearly mammograms are recommended starting [...] Shaan Nunez DO at 10:22 EDT Tel [phone], Service support [phone], CC: Kelly Hannah MD Senior Sales Administrator: Signed 23-Jul-2014 CTA Chest W/WO Contrast Result: Comments: See Note; NOTES: [facility] Imaging Services [address] [place] [address] CAT Scan Report MR#: [id number] Acct: [id number] Name: DIANA ESCUDERO Rep #: [id number] : 1950 F 64 From: Aaron Salgado MD PCP: Kelly Hannah MD Status: REG CLI Study: CTA Chest W/WO Contrast Date of Exam: 07/23/14 Exam# [id number] Ordering Dr: Kelly Hannah MD S TUDY: [...] Aaron Salgado MD at 12:47 EST Tel [phone], Service support [phone], CC: Kelly Hannah MD Senior Sales Administrator: Signed 04-Jan-2014 Consultation Result: Comments: See Note; NOTES: [facility] Medical Records Department [address] [place] [address] Consultation 01/04/14 1218 MR#: [id number] Acct: [id number] Name: DIANA ESCUDERO Rep #: [id number] : 1950 63 From: Juancho Foy MD PCP: Kelly Hannah MD Status: REG [facility] Location: [place] [address] Problem List (1) Bradycardia Status: Acute (2) [...] showed sinus bradycardia, normal QRS duration, normal IN interval, normal QT interval, no ischemic hardy [...] PO Q4H PRN PRN #30 tablet 01/04/14 [[place] 5/325] Surgical History: appendectomy, cholecystectomy, - - Hysterectomy Psychiatric History: No pertinent psych hx [employer]ENTATIVE [employer] History: No pertinent RE[employer] his tory Lives: Spouse/ Significant Other Smoking [...] Discharge Instruction Result: Comments: See Note; NOTES: [facility] Medical Records Department [address] [place] [address] Instructions for Home/Discharge Instructions 01/04/14 0731 MR#: [id number] Acc t: [id number] Name: DIANA ESCUDERO OLGA Rep #: [id number] : 1950 63 From: Anatoly Diego MD PCP: Kelly Hannah MD Status: REG [facility] Discharge Diet: No Restrictions Discharge Activity: Return [...] PRN PRN #60 capsule Hydrocodone Bitart/Apap 5-325 [[place] 5/325] 1 tablet PO Q4H PRN PRN #30 tablet Please Follow Up With: Anatoly Diego When: 2-3 weeks Proposed Discharge Date: 01/05/14 01/04/14 0735 <Electronically signed by Anatoly Diego MD> Date Anatoly Diego MD CC: Kelly Hannah MD 10-Oct-2013 EKG (86237) Comments: see scanned document of test done to see results reviewed today with patient Result: [MEASUREMENTS ANALYSIS] Date of Test: 10/10/2013 08:20:27; Heart Rate: 64; IN Interval: 160; QRS: 90; QT Interval: 394; Corrected QT Interval (QTc): 401; P Wave [place]: 50; QRS Wave [place]: 5; T Wave [place]: 14; Blood Pressure: 122/78 [ECG DIAGNOSTIC STATEMENTS] [...] week Status: Active 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 Status: Active Living Situation: Lives with domestic partner. Comments: , Mandaeism Status: Active No Caffeine Use Status: Active [...] Height 0 in Head Circumference 0.00 cm 0-Jjh-103970:12 Temperature 97.9 f Comments: Method: Oral Pulse [...] 0.00 cm Results Date Description Value Details 5-Xmr-980278:24 Urinalysis, Office (47406) UA - LEUKOCYTE ESTERASE Negative (Normal) UA - NITRITE Negative (Normal) URINE UROBILINGN FRANKO TIMED Normal mg/dL (Normal) UA - PROTEIN Negative mg/dL (Normal) UA - PH 6 (Abnormal) UA - BLOOD Negative (Normal) UA - SPECIFIC GRAVITY 1.020 (Normal) UA - KETONES Negative mg/dL (Normal) UA - BILIRUBIN Negative (Normal) UA - GLUCOSE Negative (Normal) 24-Lih-41778:40 Urinalysis, Complete Comments: Order Date: 05/19/18Has pt arrived? YHow was Urine Obtained? 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 Cloudy (Normal) COLOR Yellow (Normal) 27-Qvp-30244:26 Basic Metabolic Profile (BMP) Comments: [facility] [address] [place], [place], [id number] GAP 5 (Normal) Range: 5-15 CO2 29.0 [...] A.D.A. criteria.Please note revised GLUCOSE reference range gafhvzbol32/02/2018. 46-Gnn-12897:26 CBC W/Diff, Automated Comments: [facility] Cezcgxkytz8[address] [place], [place], [id number] Absolute Lymph 2.03 {X10_3/ul} (Normal) Range: 0.83-4.51 [...] :26 Partial Thromboplast Time Comments: [facility] Ardhdgyaoo5576 [facility]. [place], [place], [address] PTT 28.1 s (Normal) Range: 24.1-36.2 :26 Prothrombin Time w/INR Comments: [facility] Mfhcangqnw4268 [facility] [place], [place], [address] INR 1.0 (Normal) PROTIME 12.7 s (Normal) Range: 11.7-14.9 :26 Troponin-I Comments: [facility] Kdzfcoaoxv2331 [facility] [place], [place], [address] TROPONIN-I < 0.015 ng/mL (Normal) Comments: TROPONIN-I EXPECTED VALUES <0.045 Negative 0.045 - 0.590 Consistent with Cardiac Damage > OR = 0.600 Critical Value Not every elevated troponin is indicative of [place]. T hesevalues should be used with clinical judgement in examiningthe patient's clinical picture for diagnosis. To establisha diagnosis of [place] versus myocardial injury, there must be ademonstrated rise and/ or fall in the troponin values, inaddition to ischemic symptoms, EKG changes, new regionalwall motion abnormality, and/or angiographical evidence. PLEASE NOTE: REFERENCE RANGES EDITED 11/01/1719-May-20187:13 Bedside Glucose Comments: [facility] LaboratoryPoint of Ihjg[address] [place] [address] BEDSIDE GLU 101 mg/dL (Normal) Range: 70-110 Comments: MANAGEMENT OF PATIENT CARE PER NURSING PROTOCOL :16 LIPOPROTEIN, BLD, BY NMR Comments: PATIENT WAS FASTINGPERFORMED BY: LabCo[address] [id number] ([address]) LP-IR Score 81 (Abnormal) Comments: INSULIN RESISTANCE MARKER <--Insulin Sensitive Insulin Resistant--> Percentile in Reference PopulationInsulin Resistance ScoreLP-IR Score Low 25th 50th 75th High <27 27 45 63 >63LP-IR Score is inaccurate if patient is non-fasting. .The LP-IR score is a laboratory developed i [facility] [place] that has beenassociated with insulin resistance and [...] 1600 - 2000 Very High > 2000 48-Zlg-218029:35 Basic Metabolic Profile (BMP) Comments: [facility] Tdwqrjkjzu4818 [place], [address] GAP 10 (Normal) Range: 5-15 CO2 30.0 [...] A.D.A. criteria.Please note revised GLUCOSE reference range ievvqgwgj18/02/2018. 69-Dim-506321:35 CBC W/Diff, Automated Comments: [facility] [address] [place], [place], [address] Absolute Lymph 2.44 {X10_3/ul} (Normal) Range: 0.83-4.51 [...] Range: 4.4-11.0 :35 Troponin-I Comments: [facility] [address] [place], [place], [address] TROPONIN-I < 0.015 ng/mL (Normal) Comments: TROPONIN-I EXPECTED VALUES <0.045 Negative 0.045 - 0.590 Consistent with Cardiac Damage > OR = 0.600 Critical Value Not every elevated troponin is indicative of [place]. T hesevalues should be used with clinical judgement in examiningthe patient's clinical picture for diagnosis. To establisha diagnosis of [place] versus myocardial injury, there must be ademonstrated rise and/ or fall in the troponin values, inaddition to ischemic symptoms, EKG changes, new regionalwall motion abnormality, and/or angiographical evidence. PLEASE NOTE: REFERENCE RANGES EDITED 11/01/1723-Sep-20178:28 Pathology Report Comments: PERFORMED BY: LUIS Momin [facility] Tkxp8139 [facility] [id number] BY: [facility] Dermatopathology [address]su[address] [place] [address] [id number] 670Clinical Information: [id number] See MATER Comments: Material submitted: .RIGHT HAND BIOPSYClinical history: .BLACK SPOT ON HAND Note (Normal) Diagnosis:BLUE NEVUS.TMZ/09/28/2017Electronically signed: .Mya Fay MD, DermatopathologistGross description: .RECEIVED IN FORMALIN LABELED DIANA ESCUDERO AND DESIGNATEDRIGHT HAND IS A PUGH SKIN PUNCH BIOPSY MEASURING 3.0 MM IN ANDREW METERAND 2.0 MM THICK WITH A OLIVAS, RAISED AREA 2.5 X 1.5 MM. SUBMITTEDIN TOTO.FUN/TMZPathologist provided ICD-10:D22.61CPT .794106 64-Pmc-51478:47 Platelet Count on Comments: PATIENT WAS FASTINGPERFORMED BY: [employer] LabCoCash4GoldAdeiitypek9870 [facility] [id number] BY: LabCoCommunity Medical CenterSwpzsl1201 [facility] [id number] Citrated Bld Plt Count, Citrated Bld 160 {X10E3/uL} (Normal) Range: 150-379 37-Eay-55570:47 LIPOPROTEIN, BLD, BY NMR Comments: PATIENT WAS FASTINGPERFORMED BY: [facility] Ucltcghtun6305 [facility] [id number] BY: [employer] Nznkcc5765 [facility] [id number] Information: PLATELET ON CITRATE BLD [id number] (53534) LP-IR Score 85 (Abnormal) Comments: INSULIN RESISTANCE MARKER <--Insulin Sensitive Insulin Resistant--> Percentile in Reference PopulationInsulin Resistance ScoreLP-IR Score Low 25th 50th 75th High <27 27 45 63 >63LP-IR Score is inaccurate if patient is non-fasting. .The LP-IR score is a laboratory developed i [facility] [place] that has beenassociated with insulin resistance and [...] 1600 - 2000 Very High > 2000 58-Vct-85619:43 Albumin/Creatinine Ratio,Urine Comments: PATIENT NOT FASTINGPERFORMED BY: [employer]6370 [facility] [id number] Alb/Creat Ratio <1.4 {mg/g_creat} (Normal) Range: 0.0-30.0 Albumin, Urine <3.0 ug/mL (Normal) Creatinine, Urine 212.4 mg/dL (Normal) 47-Yij-96741:43 CBC With Differential/Platelet Comments: PATIENT NOT FASTINGPERFORMED BY: [employer]6370 [facility]Caro[facility] [id number] Immature Grans (Abs) 0.0 {x10E3/uL} (Normal) Range: [...] 3.77-5.28 WBC 6.3 {x10E3/uL} (Normal) Range: 3.4-10.8 20-Ega-51204:43 Comp. Metabolic Panel (14) Comments: PATIENT NOT FASTINGPERFORMED BY: [facility] Iicvfi8706 [facility] [id number] ALT (SGPT) 18 [iU]/L (Normal) Range: 0-32 [...] Glucose, Serum 100 mg/dL (Abnormal) Range: 65-99 88-Ixi-42467:43 Urinalysis, Routine Comments: PATIENT NOT FASTINGPERFORMED BY: FREECULTRCommunity Medical CenterPtqsra5232 [facility] [id number] Microscopic Examination MICNIP (Normal) Comments: Microscopic not indicated and not performed. Nitrite, Urine Negative (Normal) Urobilinogen,Semi-Qn 0.2 mg/dL (Normal) Range: 0.2-1.0 Bilirubin Negative (Normal) Occult Blood Negative (Normal) Ketones Negative (Normal) Glucose Negative (Normal) Protein Negative (Normal) WBC Esterase Negative (Normal) Appearance Clear (Normal) Urine-Color Yellow (Normal) pH 6.0 (Normal) Range: 5.0-7.5 Specific [place] 1.025 (Normal) Range: 1.005-1.030 58-Cje-010804:21 FLU A+B DIRECT AG, (RAPID) (44292) FLU A+B DIRECT AG, (RAPID) negative (Normal) :32 Potassium Serum (92220) Comments: PATIENT NOT FASTINGPERFORMED BY: FREECULTR[address] [id number] BY: [address] [id number] Potassium, Serum 3.9 mmol/L (Normal) Range: 3.5-5.2 :32 Magnesium (90327) Comments: PATIENT NOT FASTINGPERFORMED BY: [place] 6269870 [facility] [id number] BY: [address] [id number] Magnesium, Serum 2.0 mg/dL (Normal) Range: 1.6-2.3 :32 CCP ANTIBODY (42972) Comments: PATIENT NOT FASTINGPERFORMED BY: [place] 6269870 [facility] [id number] BY: [address] [id number] CCP Antibodies IgG/IgA 10 {units} (Normal) Range: 0-19 Comments: Negative <20 Weak positive 20 - 39 Moderate positive 40 - 59 Strong positive >59 :32 TSH (38805) Comments: PATIENT NOT FASTINGPERFORMED BY: [place] 6269870 [facility] [id number] BY: [address] [id number] TSH 3.380 {uIU/mL} (Normal) Range: 0.450-4.500 :32 SED RATE ERYTHROCYTE Comments: PATIENT NOT FASTINGPERFORMED BY: [place] 6269870 [facility] [id number] BY: [address] [id number] (65273) Sedimentation Rate-Westergren 14 mm/h (Normal) Range: 0-40 73-Aaf-62148:32 C-REACTIVE PROTEIN (30284) Comments: PATIENT NOT FASTINGPERFORMED BY: [place] 6269870 [facility] [id number] BY: [address] [id number] C-Reactive Protein, Quant 3.5 mg/L (Normal) Range: 0.0-4.9 :32 JESUS ALBERTO (ANTINUCLEAR ANTIBODY) Comments: PATIENT NOT FASTINGPERFORMED BY: [place] 6269870 [facility] [id number] BY: [facility] [address] [id number]; fu 3-30 (90654) JESUS ALBERTO Direct Negative (Normal) 19-Evw-232836:37 Basic Metabolic Profile (BMP) Comments: 'TROP' Serial specimen #1, #2, #3, or #4: 1[facility] Augvgsewtl6177 [place], [address] GAP 8 (Normal) Range: 5-15 [...] <126 mg/dLsuggests IMPAIRED HOMEOSTASIS per A.D.A. criteria. 88-Vrt-806196:37 CBC W/Diff, Automated Comments: [facility] Vdxejczmoi0681 [place], [address] Absolute Lymph 1.93 {X10_3/ul} (Normal) [...] 4.2-5.4 WBC 5.9 K/mm3 (Normal) Range: 4.4-11.0 20-Bis-215097:37 Troponin-I Comments: 'TROP' Serial specimen #1, #2, #3, or #4: [address] [place] [address] Cjekcmwzsp3870 [address] [place], [place], [address] TROPONIN-I < 0.02 ng/mL (Normal) Comments: TROPONIN-I EXPECTED VALUES <0.05 NEGATIVE 0.06 - 0.59 AT RISK OF [place] > OR = 0.60 SUGGEST [place] 93-Law-599942:16 HEPATITIS C ANTIBODY (84071) Comments: CLient bill for this; PATIENT NOT FASTINGPERFORMED BY: [facility] Ngwfof3459 [facility] [id number] Hep C Virus Ab <0.1 {s/co_ratio} (Normal) Range: 0.0-0.9 Comments: Negative: < 0.8 Indeterminate: 0.8 - 0.9 Positive: > 0.9 . The CDC recommends that a positive HCV antibody result be followed up with a HCV Nucleic Acid Amplification test (439415). :32 CBC W/Diff, Automated Comments: [facility] Jetdluscxb34[address] [place], [place], [address] Absolute Lymph 2.31 {X10_3/ul} (Normal) Range: 0.83-4.51 [...] 1'CKMB' Serial Specimen #1, #2 or #3? 1[facility] Ndhqrsnnxq4865 [place], [address] GAP 7 (Normal) Range: 5-15 [...] 1'CKMB' Serial Specimen #1, #2 or #3? 1[facility] Sqferujfwe3836 [address] [place], [place], [address] CKRI 1.1 % (Normal) Range: 0.0-1.4 Comments: [...] Specimen #1, #2 or #3? 1[facility] Mscxbxlabx1411 [address] [place], [place], [address] TROPONIN-I < 0.02 ng/mL (Normal) Comments: TROPONIN-I EXPECTED VALUES <0.05 NEGATIVE 0.06 - 0.59 AT RISK OF [place] > OR = 0.60 SUGGEST [place] :30 CBC (Auto) (35083) Comments: PATIENT WAS FASTINGPERFORMED BY: LabCoii4b Cuypwx3007 [facility] [id number] Platelets 165 {x10E3/uL} (Normal) Range: 150-379 RDW 13.8 % (Normal) Range: 12.3-15.4 MCHC 33.1 g/dL (Normal) Range: 31.5-35.7 MCH 31.2 pg (Normal) Range: 26.6-33.0 MCV 94 fL (Normal) Range: 79-97 Hematocrit 43.2 % (Normal) Range: 34.0-46.6 Hemoglobin 14.3 g/dL (Normal) Range: 11.1-15.9 RBC 4.59 {x10E6/uL} (Normal) Range: 3.77-5.28 WBC 6.6 {x10E3/uL} (Normal) Range: 3.4-10.8 :30 Metabolic Panel, Comments: PATIENT WAS FASTINGPERFORMED BY: LabCoCommunity Medical CenterIkxzoj3865 [facility] [id number] Information: [id number] Comprehensive (27906) ALT (SGPT) 14 [iU]/L (Normal) Range: 0-32 [...] mg/dL (Normal) Range: 65-99 :30 Lipid Panel (82002) Comments: PATIENT WAS FASTINGPERFORMED BY: [facility]First[facility] [id number] LDL/HDL Ratio 3.6 {ratio_units} (Abnormal) Range: 0.0-3.2 [...] (HGB A1C) Comments: PATIENT WAS FASTINGPERFORMED BY: [facility] [id number]; apt. 4-4 (88556) Hemoglobin A1c 5.8 % (Abnormal) Range: 4.8-5.6 Comments: . Pre-diabetes: 5.7 - 6.4 Diabetes: >6.4 Glycemic control for adults with diabetes: <7.0 22-Jgc-972220:59 Urinalysis, Office (32923) UA - LEUKOCYTE ESTERASE Negative (Normal) UA - NITRITE Positive (Normal) URINE UROBILINGN FRANKO TIMED 2 mg/dL (Normal) UA - PROTEIN Negative mg/dL (Normal) UA - PH 5 (Abnormal) UA - BLOOD Negative (Normal) UA - SPECIFIC GRAVITY 1.020 (Normal) UA - KETONES Negative mg/dL (Normal) UA - BILIRUBIN Negative (Normal) UA - GLUCOSE Negative (Normal) 59-Nyo-20993:00 Anticardiolip Ab, IgA/G/M, Comments: PATIENT WAS FASTINGPERFORMED BY: CB [facility] Behmsl2396 [facility] [id number] BY: TG [facility] RWO2075 [facility] [id number] Qn Anticardiolipin Ab,IgA,Qn <9 {APL_U/mL} (Normal) Range: [...] Positive: >20 - 80 High Positive: >80 54-Hxh-984040:37 Basic Metabolic Profile (BMP) Comments: Serial Specimen #1, #2 or #3? 1'TROP' Serial specimen #1, #2, #3, or #4: 1Test performed at:[facility] Yxdfslegcq2160 [address] [place], [place] [address] GAP 7 (Normal) Range: 5-15 CO2 26.0 [...] Comments: Please note revised CREATININE reference range /22/2015. BUN 16 mg/dL (Normal) Range: 7-18 GLU 134 mg/dL (Abnormal) Range: 70-110 Comments: Fasting Glucose result greater than or equal to 126 mg/dLsuggests DIABETES MELLITUS per A.D.A. criteria. 81-Det-807396:37 CBC W/Diff, Automated Comments: Test performed at:[facility] Syiamoelye[address] [place], [place] [address] Absolute Lymph 2.35 {X10_3/ul} (Normal) Range: 0.83-4.51 [...] 4.2-5.4 WBC 7.4 K/mm3 (Normal) Range: 4.4-11.0 19-Rpf-794865:37 CK-MB Quantitative and Index Comments: Serial Specimen #1, #2 or #3? 1'TROP' Serial specimen #1, #2, #3, or #4: 1Test performed at:[facility] Zpvcopopsl8945 [facility] [address] CPKMB 0.8 ng/mL (Normal) Range: 0.0-5.0 Comments: CK-MB and RI Interpretation MB Relative Index Non-AMI <or= 5 NA Indeterminate > 5 <or= 4 AMI > 5 > 4 CPK TOTAL 80 U/L (Normal) Range: 26-192 28-Qzs-612340:37 Troponin-I Comments: Serial Specimen #1, #2 or #3? 1'TROP' Serial specimen #1, #2, #3, or #4: 1Test performed at:[facility] Rszvxaqqqh6240 [facility] [address] TROPONIN-I < 0.02 ng/mL (Normal) Comments: TROPONIN-I EXPECTED VALUES <0.05 NEGATIVE 0.06 - 0.59 AT RISK OF [place] > OR = 0.60 SUGGEST [place] 06-Ohx-265989:59 D-Dimer (07278) Comments: PATIENT NOT FASTINGPERFORMED BY: [facility] [address] [id number] BY: [facility] [address] [id number] D-Dimer 0.59 {mg/L_FEU} (Abnormal) Range: 0.00-0.49 Comments: In conjunction with a non-high clinical probability assessment, anormal (<0.50 mg/L FEU) result excludes deep vein thrombosis (DVT)and pulmonary embolism (PE) with high sensitivity. 15-Mzt-74247:00 LIPID PANEL (45643) Comments: PATIENT WAS FASTINGPERFORMED BY: FREECULTRCommunity Medical CenterDjojwl3921 [facility] [id number] BY: FREECULTR LND2507 [facility] [id number] LDL/HDL Ratio 3.1 {ratio_units} (Normal) Range: 0.0-3.2 [...] Cholesterol, Total 177 mg/dL (Normal) Range: 100-199 69-Msd-160630:59 Protein S Profile Comments: PATIENT NOT FASTINGPERFORMED BY: FREECULTRHeather Ville 188367 [facility] [id number] BY: FREECULTRCommunity Medical CenterPeatte8791 [facility] [id number] Inf ormation: [id number] (51905) Protein S-Functional 119 % (Normal) Range: 60-145 Protein S, Free 108 % (Normal) Range: 56-124 Protein S, Total 137 % (Normal) Range: 58-150 56-Doz-816903:59 Protein C Profile Comments: PATIENT NOT FASTINGPERFORMED BY: FREECULTRSt. Mary's HospitalPbghzbghlq9661 [facility] [id number] BY: FREECULTRCommunity Medical CenterUenzlw2644 [facility] [id number] (53763) Protein C-Functional 120 % (Normal) Range: 74-151 Protein C Antigen 104 % (Normal) Range: 70-140 89-Xnk-84326:00 Homocysteine, Plasma Comments: PATIENT WAS FASTINGPERFORMED BY: FREECULTRCommunity Medical CenterKamaks9880 [facility] [id number] BY: Psonar AZV7470 [facility] [id number] (53856) Homocyst(e)ine, Plasma 11.2 umol/L (Normal) Range: 0.0-15.0 57-Swc-915282:59 ANTITHROMBIN III ACTIVTY Comments: PATIENT NOT FASTINGPERFORMED BY: FREECULTR[address] [id number] BY: FREECULTR Pwdcch2120 [facility] [id number] (76085) Antithrombin Antigen 94 % (Normal) Range: 75-130 Antithrombin Activity 108 % (Normal) Range: 75-135 80-Wac-465253:59 CLOTTING FACTOR II Comments: PATIENT NOT FASTINGPERFORMED BY: FREECULTR[address] [id number] BY: FREECULTR Evtucu3857 Murphy StreetHawkFirstHealth Moore [facility] [id number] (26856) Factor II Activity 113 % (Normal) Range: 75-130 07-Pqm-76361:00 Factor V Leiden (02842) Comments: PATIENT WAS FASTINGPERFORMED BY: [employer] Gqenih8149 Murphy StreetHawkFirstHealth Moore [facility] [id number] BY: FREECULTR CWQ8540 [facility] [id number] Factor V Leiden FVNEG3 (Normal) Comments: Result: [...] in the workup for venous thrombosis include [id number] mutation in the factor II (prothrombin) gene,protein S and C deficiency, and antithromb in deficiencies.Anticardiolipin antibody and lupus anticoagulant analysismay be appropriate for certain patients, as well ashomocysteine levels. .Contact your local [facility] for information on how to orderadditional testing if desired. .Genetic counselors are available for health care* providers to discuss results at [phone] [phone] .Methodology:DNA analysis of the Factor V gene [...] Chavez, PhDTara Jhaveri, PhDNgozi Cardozo, PhD . 31-Fir-34323:00 MTHFR (69062) Comments: PATIENT WAS FASTINGPERFORMED BY: CB [facility] Lsyobk4659 [facility] [id number] BY: TG [facility] TTB5329 [facility] [id number] MTHFR, DNA Analysis HR6290 (Normal) Comments: Result: C677T/G6008SOgd mutations (C677T and Y3016U) identified .Interpretation: .This individual is heterzygous for both the MTHFR C677T and Z4605Qkifufbqi (one copy of each). Compound heterozygosity for the V221Dqrs N5261C variants is unlikely to be of clinical [...] discuss these results with healthcare providers at [phone] [place]. .Methylenetetrahydrofolate reductase (MTHFR) is a ke y enzyme in thefolate pathway and is responsible for the metabolism of homocysteine.There are two common variants in the MTHFR gene, c.655C>T(p.Ysf471Kwt), referred to as C677T, and c.1286A>C (p.G kp714Fsk),referred to as X6801R. Individuals homozygous for C677T (two copiesof the variant), have decreased activity of the MTHFR enzyme and apredisposition to hyperhomocysteinemia, particularly when d eficient infolate. Hyperhomocysteinemia is a risk factor for venous thrombosisand coronary artery disease and is associated with an increased riskof open neural tube defects. The C677T variant reilly s notindependently increase risk of these conditions in the absence ofhyperhomocysteinemia. The B6520H variant is not associated withelevated homocysteine levels unless a C677T variant is also present;h owever, the clinical significance of heterozygosity for both I047Aiap N1929L is controversial. Population data suggest that these twovariants are not present on the same chromosome, but rare exceptionsh ave been reported of triple variant MTHFR genotypes (ie. homozygousfor one variant and heterozygous for the other). Homozygosity gqgP737P has an estimated frequency of 10% to [...] PhDNgozi Cardozo, PhD :52 HgA1C , Office (28190) HgA1C , Office 5.8 % (Normal) Range: 4.6 - 7.1 :31 CBC With Differential/Platelet Comments: PATIENT WAS FASTINGPERFORMED BY: LabCoCommunity Medical CenterUlgoqo7854 [facility] [id number] Information: [id number] Immature Grans (Abs) 0.0 {x10E3/uL} (Normal) Range: [...] Panel (14) Comments: PATIENT WAS FASTINGPERFORMED BY: LabCoCommunity Medical CenterBmtoij5547 [facility] [id number] ALT (SGPT) 18 [iU]/L (Normal) Range: 0-32 [...] Glucose, Serum 103 mg/dL (Abnormal) Range: 65-99 67-Hnt-847219:04 Urinalysis, Office (35475) UA - PH 6.0 (Normal) UA - LEUKOCYTE ESTERASE Negative (Normal) UA - NITRITE Negative (Normal) URINE UROBILINGN FRANKO TIMED 2 mg/dL (Normal) UA - PROTEIN Negative mg/dL (Normal) UA - BLOOD Negative (Normal) UA - SPECIFIC GRAVITY 1.025 (Normal) UA - KETONES Negative mg/dL (Normal) UA - BILIRUBIN Negative (Normal) UA - GLUCOSE Negative (Normal) 51-Ahy-88554:51 POTASSIUM SERUM (97357) Comments: today; PATIENT NOT FASTINGPERFORMED BY: [facility] Xvjltu3705 [facility] [id number] Information: [id number],[id number] Potassium, Serum 3.8 mmol/L (Normal) Range: 3.5-5.2 3-Dgi-343868:30 Basic Metabolic Profile (BMP) Comments: 'TROP' Serial specimen #1, #2, #3, or #4: 1'CKMB' Serial Specimen #1, #2 or #3? 1Test performed at:[facility] Zqzwdegvpz4354 [facility] [address] GAP 3 (Abnormal) Range: 5-15 [...] 7-18 GLU 89 mg/dL (Normal) Range: 70-110 0-Nnx-646278:30 CBC W/Diff, Automated Comments: Test performed at:[facility] Iqskzxjcjs2888 [facility] [address] Absolute Lymph 2.01 {X10_3/ul} (Normal) [...] 4.2-5.4 WBC 6.0 K/mm3 (Normal) Range: 4.4-11.0 0-Nbt-928044:30 CK-MB Quantitative and Index Comments: 'TROP' Serial specimen #1, #2, #3, or #4: 1'CKMB' Serial Specimen #1, #2 or #3? 1Test performed at:[facility] Ewyzndpihl15[address] [place] [address] CPKMB 0.8 ng/mL (Normal) Range: 0.0-5.0 Comments: CK-MB and RI Interpretation MB Relative Index Non-AMI <or= 5 NA Indeterminate > 5 <or= 4 AMI > 5 > 4 CPK TOTAL 64 U/L (Normal) Range: 26-192 1-Hnt-343579:30 D-Dimer Quantitative (DVT/PE) Comments: Test performed at:[facility] Fyzbyosscd64[address] [place], [place] [address] D-DIMER QUANT 1.86 {FEU/ug/m} (Abnormal) Range: 0.27-0.49 Comments: D-Dimer ELEVATED (>0.49): Additional studies and clinicalassessments are indicated to conclude diagnosis of:Deep Vein Thrombosis (DVT) or Pulmonary Embolism (PE)CRITICAL VALUE REPEATED AND VERIFIED. CALLED TO SHRAVAN.RN07/23/14 1104 Ricci Delgado.RESULTS READ BACK BY SAME. 9-Qyz-038744:30 Troponin-I Comments: 'TROP' Serial specimen #1, #2, #3, or #4: 1'CKMB' Serial Specimen #1, #2 or #3? 1Test performed at:[facility] Cvfwaszzfk8987 [facility] [place], [place] [address] TROPONIN-I < 0.02 ng/mL (Normal) Comments: TROPONIN-I EXPECTED VALUES <0.05 NEGATIVE 0.06 - 0.59 AT RISK OF [place] > OR = 0.60 SUGGEST [place] :18 HgA1C , Office (18727) HgA1C , Office 5.7 % (Normal) Range: 4.6 - 7.1 :18 Blood Glucose , Office (48007) Blood Glucose , Office 106 (Normal) 95-Sle-365377:20 CBCD ALC 2.30 {X10_3/ul} (Normal) Range: 0.83-4.51 [...] S. AUREUS S. aureus NegativeMRSA MRSA Negative 50-Gwi-722787:20 UAC Comments: ORDER URINE CULTUREIF POSITIVE NITRITE [...] Yellow (Normal) :54 Blood Glucose , Office (09977) Blood Glucose , Office 123 (Normal) Comments: Not Fasting :54 HgA1C , Office (65737) HgA1C , Office 6.0 % (Normal) Range: 4.6 - 7.1 :31 POTASSIUM SERUM (91910) Comments: patient having drawn in 2 wks; PATIENT NOT FASTINGPERFORMED BY: LabCoCommunity Medical CenterRkwges7621 [facility] [id number] Information: [id number] Potassium, Serum 4.0 mmol/L (Normal) Range: 3.5-5.2 :20 Microscopic Examination Comments: PATIENT WAS FASTINGPERFORMED BY: LabCoCommunity Medical CenterFzxtfm7269 [facility] [id number] Bacteria Few (Normal) Mucus Threads Present (Normal) [...] A POSITIVE (Normal) :20 URINALYSIS, W/ MICRO (68093) Comments: PATIENT WAS FASTINGPERFORMED BY: [facility]6370 [facility] [id number] Microscopic Examination See below: (Normal) Comments: Microscopic was indicated and was performed. Nitrite, Urine Negative (Normal) Urobilinogen,Semi-Qn 1.0 mg/dL (Normal) Range: 0.0-1.9 Bilirubin Negative (Normal) Occult Blood Negative (Normal) Ketones Negative (Normal) Glucose Negative (Normal) Protein Trace (Normal) WBC Esterase 2+ (Abnormal) Appearance Clear (Normal) Urine-Color Yellow (Normal) pH 6.5 (Normal) Range: 5.0-7.5 Specific [place] 1.023 (Normal) Range: 1.005-1.030 :20 METABOLIC PANEL, COMPREHENSIVE Comments: PATIENT WAS FASTINGPERFORMED BY: FREECULTR Tdyyjp8187 [facility] [id number] (26779) ALT (SGPT) 20 [iU]/L (Normal) Range: 0-32 [...] Glucose, Serum 106 mg/dL (Abnormal) Range: 65-99 31-Ttc-77923:20 LIPID PANEL (69898) Comments: PATIENT WAS FASTINGPERFORMED BY: [employer]6370 [facility] [id number] LDL/HDL Ratio 3.8 {ratio_units} (Abnormal) Range: 0.0-3.2 [...] MANUAL DIFF Comments: PATIENT WAS FASTINGPERFORMED BY: LabCoCommunity Medical CenterEhskid0868 [facility] [id number] Information: [id number] (17779) Immature Grans (Abs) 0.0 {x10E3/uL} (Normal) Range: [...] (Normal) Range: 3.4-10.8 :09 HgA1C , Office (31800) HgA1C , Office 5.8 % (Normal) Range: 4.6 - 7.1 :09 Blood Glucose , Office (73293) Blood Glucose , Office 129 (Normal) Comments: [...] (Normal) Range: 70-110 :17 HgA1C , Office (03349) HgA1C , Office 5.9 % (Normal) Range: 4.6 - 7.1 :17 Blood Glucose , Office (33928) Blood Glucose , Office 107 (Normal) :15 PROL 10.4 ng/mL (Normal) Comments: NORMAL REFERENCE RANGESFEMALENON- 2.2 - 30.3 ng/mL 8.1 - 347.6 ng/mLPOST- MENOPAUSAL 0.7 - 31.5 ng/mLMALE 2.5 - 17.4 ng/mLNEW TEST METHO D & REFERENCE RANGES NOVEMBER 09, 2011; ADDENDA: has f/u on 06/08/13, will review then 65-Zgd-78920:28 BILAT SCRN DIGITAL & CAD Radiology Report [...] be sent to the patient by the [facility] within 30 days. Approximately 10% of breast cancers are not detected by mammography. Anormal mammogram should not delay biopsy of a clinically suspiciousabnormality. Signed:Payton DuttaMarch 15, 2013 at 7:58:55 AM [id number] Signed GP/GP If you are the referring physician and would like to consult with theradiologist who provided this interpretation, please co ntact Unique Yusuf at [phone]. If this radiologist is unavailable, youwill be [...] 03/15/13 0837 Sign by: Aaron Salgado MD 76-Xma-57709:25 Blood Glucose , Office (55639) Blood Glucose , Office 134 (Normal) :25 HgA1C , Office (03370) HgA1C , Office 5.8 % (Normal) Range: 4.6 - 7.1 2-Cns-589022:22 PELVIC (NON ) Radiology Report See Note [...] Salgado M.D.January 23, 2013 at 2:31:38 PM [id number] Signed GP/GP If you are the referring physician and would like to consult with theradiologist who provided this interpretati on, please contact Unique Yusuf at [phone]. If this radiologist is unavailable, youwill be directed to another radiologist to assist. If you are a patient with a question regarding this report, pleasecontactyour referring physician directly. Professional Interpretation Provided By: [employer], Phone , These documents contain legally protected [...] size of the right kidney. The right lmlbytkhhomjmv59.4 cm. Ambika l renal cortex. The right cortex measures 1.0 cm. Thereisa 1.1 cm x 1.0 cm x 0.9 cm cyst in the inferior pole. There is no righthydronephrosis. Left Kidney: Normal size of the left kidney. The left kidney rhiqcyue02.5cm. Normal renal cortex. The left cortex measures 1.9 cm. There is nodemonstrated renal mass or cyst. There is no left hydronephrosis. Aorta: Unremarkable. I.V.C.: The IVC is pa tent. There is no ascites. IMPRESSION:Fatty infiltration of the liver. The patient is status postcholecystectomy. Signed:Aaron Salgado M.D.January 23, 2013 at 2:2 8:11 PM [id number] Signed GP/GP If you are the referring physician and would like to consult with theradiologist who provided this interpretation, please contact Payton Yusuf at [phone]. If this radiologist is unavailable, youwill be directed to another radiologist to assist. If you are a patient with a question regarding this report, pleasecontactyour referring phys ician directly. Professional Interpretation Provided By: [employer], Phone , These documents contain legally protected [...] Salgado M.D.January 23, 2013 at 2:31:38 PM [id number] Signed GP/GP If you are the referring physician and would like to consult with theradiologist who provided this interpretati on, please contact Unique Yusuf at [phone]. If this radiologist is unavailable, youwill be directed to another radiologist to assist. If you are a patient with a question regarding this report, pleasecontactyour referring physician directly. Professional Interpretation Provided By: [employer], Phone , These documents contain legally protected [...] 01/24/13 1043 Sign by: Aaron Salgado MD 37-Esy-596218:11 CBC, Platelets & Auto Comments: PATIENT NOT FASTINGPERFORMED BY: LabCoCommunity Medical CenterRzlmgr8699 [facility] [id number] Information: [id number] Diff (80030) Immature Grans (Abs) 0.0 {x10E3/uL} (Normal) Range: [...] (Normal) Range: 70-110 :33 HgA1C , Office (85694) HgA1C , Office 5.8 % (Normal) Range: 4.6 - 7.1 :53 METABOLIC PANEL, COMPREHENSIVE Comments: PATIENT WAS FASTINGPERFORMED BY: [facility]CoCommunity Medical CenterSuasse2821 [facility] [id number] (93451) ALT (SGPT) 19 [iU]/L (Normal) Range: 0-32 [...] Glucose, Serum 88 mg/dL (Normal) Range: 65-99 29-Vng-398065:53 CBC WITH MANUAL DIFF Comments: PATIENT WAS FASTINGPERFORMED BY: LabCoCommunity Medical CenterVpdrlx2937 [facility] [id number] Information: [id number] (70462) Immature Grans (Abs) 0.0 {x10E3/uL} (Normal) Range: [...] 3.77-5.28 WBC 7.5 {x10E3/uL} (Normal) Range: 4.0-10.5 39-Ajp-032548:53 LIPID PANEL (99392) Comments: PATIENT WAS FASTINGPERFORMED BY: LabSelect [facility]6370 [facility] [id number] LDL/HDL Ratio 3.3 {ratio_units} (Abnormal) Range: 0.0-3.2 [...] Salgado M.D.January 18, 2012 at 10:04:04 AM [id number] Signed GP/GP If you are the referring physician and would like to consult with theradiologist who pro vided this interpretation, please contact Unique Yusuf at [phone]. If this radiologist is unavailable, youwill be directed to another radiologist to assist. If you are a patient with a q uestion regarding this report, pleasecontactyour referring physician directly. Professional Interpretation Provided By: [employer], Phone , Dictated on 01/18/12 0759 by Damian FLYNN,Lauritascribed on 01/18/12 1010 by ITS IMPORTSign by Aaron Salgado MD on 01/18/12 1011 Sign by: Aaron Salgado MD 6-Gbg-696749:43 MICROALBUMIN: CREATININE RATIO Comments: PATIENT WAS FASTINGPERFORMED BY: [facility]6370 [facility] [id number] (74952) AND (47835) Microalb/Creat Ratio 1.4 {mg/g_creat} (Normal) Range: 0.0-30.0 Microalbumin, Urine 2.3 ug/mL (Normal) Range: 0.0-17.0 Creatinine, Urine 167.9 mg/dL (Normal) Range: 15.0-278.0 :43 METABOLIC PANEL, COMPREHENSIVE Comments: PATIENT WAS FASTINGPERFORMED BY: JERMAINE [employer]70 [facility] [id number] (10359) ALT (SGPT) 24 [iU]/L (Normal) Range: 0-40 [...] Glucose, Serum 95 mg/dL (Normal) Range: 65-99 0-Oju-392239:43 LIPID PANEL (46370) Comments: PATIENT WAS FASTINGPERFORMED BY: JERMAINE [employer]6370 [facility] [id number] LDL/HDL Ratio 3.2 {ratio_units} (Normal) Range: 0.0-3.2 LDL Cholesterol Calc 115 mg/dL (Abnormal) Range: 0-99 VLDL Cholesterol José Luis 29 mg/dL (Normal) Range: 5-40 HDL Cholesterol 36 mg/dL (Abnormal) Comments: According to ATP-III Guidelines, HDL-C >59 mg/dL is considered anegative risk factor for CHD. Triglycerides 146 mg/dL (Normal) Range: 0-149 Cholesterol, Total 180 mg/dL (Normal) Range: 100-199 0-Zhs-265244:43 CBC WITH MANUAL DIFF Comments: PATIENT WAS FASTINGPERFORMED BY: LabSelect [facility]6370 [facility] [id number] Information: [id number] (29338) Immature Grans (Abs) 0.0 {x10E3/uL} (Normal) Range: [...] population. WBC 5.9 {x10E3/uL} (Normal) Range: 4.0-10.5 25-Hwo-260846:18 HgA1C , Office (63138) HgA1C , Office 6.1 % (Normal) Range: 4.6 - 7.1 72-Irb-633738:18 Blood Glucose , Office (71978) Blood Glucose , Office 125 (Normal) 12-Rhz-018180:00 Thin prep Pap Comments: Source.............Cervical;EndocervicalNo. of containers..01 CYTYC Thin Prep VialPATIENT NOT FASTINGPERFORMED BY: LabCo[address] [id number] Information: [id number] ([id number]) Note: PAPSMR (Normal) Comments: The Pap smear [...] ; Routine gynecolog ical examina Imelda Batres Prorate Clerk (ASCP) 93-Kwb-86345:00 THU LEZAMA DIGITAL & CAD Radiology Report [...] 0620 Sign by: __ Aaron Salgado MD 5-Phx-003140:24 CBC & PLATELETS (AUTO) Comments: PATIENT NOT FASTINGPERFORMED BY: LabCoCommunity Medical CenterVicxpk0816 [facility] [id number] Information: [id number]; appt 11/28/10 (02097) MCH 31.6 pg (Normal) Range: 27.0-34.0 MCHC [...] 45 63 >63Performed at: S[facility] - [employer] Nmq6068 [place], [place] [id number] Director: Stefano Mace PhD, Phone: [phone] HDL SIZE <TEST NOT PERFORMED> (Normal) INSULIN [...] TOT 209 mg/dL (Abnormal) LIPIDS . (Normal) 9-Akr-423859:12 CULT, DP WOUND Comments: COMMENTS: CULTURE, SENSITIVITY,AREOBES, [...] STRIMETHOPRIM/SULFAMETHOXAZ $ <=10 SVANCOMYCIN $ 1 S 5-Nuz-378759:10 CBC Comments: COMMENTS: AC ROOM 6 HCT [...] 11.6-14.6 WBC 7.6 K/mm3 (Normal) Range: 4.4-11.0 61-Xda-80458:40 CULTURE, NOSE GRAM STAIN See Note (Normal) [...] 1 S :56 Blood Glucose , Office (38123) Blood Glucose , Office 102 (Normal) :56 HgA1C , Office (32272) HgA1C , Office 6.1 % (Normal) Range: 4.6 - 7.1 :49 MICROALBUMIN: CREATININE Comments: PATIENT WAS FASTINGPERFORMED BY: Fede LipMYTRND0 [facility] [id number] BY: JERMAINE FREECULTRbutch CosmeOrafhp1974 [facility] [id number] RATIO (20876) AND (18164) Microalb/Creat Ratio 2.3 {mg/g_creat} (Normal) Range: 0.0-30.0 Microalbumin, Urine 3.4 ug/mL (Normal) Range: 0.0-17.0 Creatinine, Urine 150.2 mg/dL (Normal) Range: 15.0-278.0 :49 LIPOPROTEIN, BLD, BY NMR Comments: PATIENT WAS FASTINGPERFORMED BY: Fede Rithmio0 [facility] [id number] BY: JERMAINE LabCoCommunity Medical CenterIsmddd5919 [facility] [id number] Information: ADD [id number] AND DRAW FEE 99 2131 (93574) LP-IR 83 Comments: The LP-IR Score combines [...] (Abnormal) Choleste 220 mg/dL galina, (Abnormal) Total 80-Srz-35629:49 METABOLIC PANEL, Comments: PATIENT WAS FASTINGPERFORMED BY: Fede [employer] Sml1610 Tomás [facility] [id number] BY: LabCo Lipooc6400 [facility] [id number] COMPREHENSIVE (53431) ALT (SGPT) 22 [iU]/L (Normal) Range: 0-40 [...] Glucose, Serum 107 mg/dL (Abnormal) Range: 65-99 56-Tgo-28958:49 LIPID PANEL (60911) Comments: PATIENT WAS FASTINGPERFORMED BY: Fede [employer] Iex8414 Tomás [facility] CentereiGeisinger Medical Center [id number] BY: JERMAINE LabCoCommunity Medical CenterGrvhpb2029 [facility] [id number] LDL Cholesterol Calc 135 mg/dL (Abnormal) Range: 0-99 LDL/HDL Ratio 4.1 {ratio_units} (Abnormal) Range: 0.0-3.2 VLDL Cholesterol José Luis 52 mg/dL (Abnormal) Range: 5-40 HDL Cholesterol 33 mg/dL (Abnormal) Comments: According to ATP-III Guidelines, HDL-C >59 mg/dL is considered anegative risk factor for CHD. Triglycerides 261 mg/dL (Abnormal) Range: 0-149 Cholesterol, Total 220 mg/dL (Abnormal) Range: 100-199 83-Qlc-30128:49 CBC WITH MANUAL DIFF Comments: PATIENT WAS FASTINGPERFORMED BY: Fede [employer] Fje1019 [facility] [id number] BY: JERMAINE [facility] Brzzfe8062 [facility] [id number] (37370) Baso (Absolute) 0.1 {x10E3/uL} (Normal) Range: 0.0-0.2 [...] 3.80-5.10 WBC 6.7 {x10E3/uL} (Normal) Range: 4.0-10.5 7-Bdy-875384:35 MARYJANE CULTURE-OTHER (02339) Comments: PATIENT NOT FASTINGPERFORMED BY: [facility]6370 [facility] [id number] Information: SRC:THRT [id number] Result 1 RRF (Normal) Comments: Routine respiratory bin Upper Respiratory Culture Final report (Normal) 23-Jul-20098:07 Rapid Strep Test, Office (03599) Rapid Strep Test, Negative (Normal) Office 27-Feb-20098:2 Potassium, Serum 3.8 mmol/L (Normal) Comments: PATIENT WAS FASTINGPERFORMED BY: [facility]6370 [facility] [id number] Range: 3.5-5.2 56-Suo-230208:00 BILAT SCRN DIGITAL & CAD Radiology Report See Note (Normal) Comments: Exam Number: [id number] MAMMOGRAM, BILATERAL SCREENING DIGITAL AND CAD HISTORYRoutine [...] werealso examined with computer-aided detection s oftware ([employer] Reported By: KENNA SWEET M.D. 27-Feb-20098:24 Lipid Panel (08288) Comments: PATIENT WAS FASTINGClinical Information: ADD 998802, [id number] PERFORMED BY: [address] [place] [id number] Cholesterol, Total 224 mg/dL (Abnormal) Range: 100-199 HDL Cholesterol 31 mg/dL (Abnormal) Comments: According to ATP-III Guidelines, HDL-C >59 mg/dL is considered anegative risk factor for CHD. LDL Cholesterol Calc 122 mg/dL (Abnormal) Range: 0-99 LDL/HDL Ratio 3.9 {ratio_units} (Abnormal) Range: 0.0-3.2 Triglycerides 354 mg/dL (Abnormal) Range: 0-149 VLDL Cholesterol José Luis 71 mg/dL (Abnormal) Range: 5-40 81-Jwy-132033:16 JESUS ALBERTO (ANTINUCLEAR ANTIBODY) Comments: PATIENT NOT FASTINGPERFORMED BY: FREECULTRBrittany Ville 9351270 [facility] [id number] (06234) Antinuclear Antibodies Direct Negative (Normal) :16 C-REACTIVE PROTEIN (88457) Comments: PATIENT NOT FASTINGPERFORMED BY: FREECULTRCommunity Medical CenterJrvtwj2990 [facility] [id number] C-Reactive Protein, Quant 8.0 mg/L (Abnormal) Range: 0.0-4.9 17-Meq-259221:16 CBC (AUTO) (27880) Comments: PATIENT NOT FASTINGPERFORMED BY: FREECULTRCommunity Medical CenterZzopyu1106 [facility] [id number] Hematocrit 42.4 % (Normal) Range: 34.0-44.0 Hemoglobin 14.4 g/dL (Normal) Range: 11.5-15.0 MCH 31.9 pg (Normal) Range: 27.0-34.0 MCHC 34.0 g/dL (Normal) Range: 32.0-36.0 MCV 94 fL (Normal) Range: 80-98 Platelets 160 {x10E3/uL} (Normal) Range: 140-415 RBC 4.52 {x10E6/uL} (Normal) Range: 3.80-5.10 RDW 14.1 % (Normal) Range: 11.7-15.0 WBC 7.6 {x10E3/uL} (Normal) Range: 4.0-10.5 96-Wet-506311:16 Folate (13731) Comments: PATIENT NOT FASTINGPERFORMED BY: [facility]6370 [facility] [id number] Folate (Folic Acid), Serum 17.4 ng/mL (Normal) Comments: Indeterminate: 3.4 - 5.4 Deficient: <3.4 20-Evi-694060:16 METABOLIC PANEL, COMPREHENSIVE Comments: PATIENT NOT FASTINGPERFORMED BY: [facility]6370 [facility] [id number] (08731) A/G Ratio 1.2 (Normal) Range: 1.1-2.5 Albumin, [...] Sodium, Serum 142 mmol/L (Normal) Range: 135-145 96-Obd-309961:16 RHEUMATOID FACTOR-QUANT (93614) Comments: PATIENT NOT FASTINGPERFORMED BY: [facility]6370 [facility] [id number] RA Latex Turbid. 9.3 {IU/mL} (Normal) Range: 0.0-13.9 :16 SED RATE ERYTHROCYTE (67181) Comments: PATIENT NOT FASTINGPERFORMED BY: LabJames Ville 7151670 [facility] [id number] Sedimentation Rate-Westergren 21 mm/h (Normal) Range: 0-30 78-Mwn-418567:16 TSH (18977) Comments: PATIENT NOT FASTINGPERFORMED BY: [place] 6269870 [facility] [id number] TSH 2.690 {uIU/mL} (Normal) Range: 0.450-4.500 96-Pdc-281763:16 VITAMIN B-12 (CYANOCOBALAMIN) Comments: PATIENT NOT FASTINGPERFORMED BY: [place] 6269870 [facility] [id number] (59549) Vitamin B12 348 pg/mL (Normal) Range: 211-911 23-Jan-20099:35 Lipid Panel (62350) Comments: PATIENT WAS FASTINGClinical Information: ADD 053162, [id number] PERFORMED BY: [address] [id number] Cholesterol, Total 208 mg/dL (Abnormal) Range: 100-199 HDL Cholesterol 32 mg/dL (Abnormal) Comments: According to ATP-III Guidelines, HDL-C >59 mg/dL is considered anegative risk factor for CHD. LDL Cholesterol Calc 124 mg/dL (Abnormal) Range: 0-99 LDL/HDL Ratio 3.9 {ratio_units} (Abnormal) Range: 0.0-3.2 Triglycerides 261 mg/dL (Abnormal) Range: 0-149 VLDL Cholesterol José Luis 52 mg/dL (Abnormal) Range: 5-40 71-Yud-003683:47 HgA1C , Office (41634) HgA1C , Office 5.8 % (Normal) Range: 4.6 - 7.1 91-Dsj-485575:47 Blood Glucose , Office (33207) Blood Glucose , Office 128 (Normal) 28-Bdm-918976:43 Urinalysis, Office (74169) UA - LEUKOCYTE ESTERASE Trace (Normal) UA [...] sinusitis Planned Observations TSH (THYROID STIMULATING HORMONE) (12618)Indication: Transient disorientation On: 9-Kak-805689:23 Request LIPID PANEL (78730)Indication: Mixed hyperlipidemia On: 6-Xxr-116314:45 Request Platelet 69557 (citrate, nonclumping tube)Indication: Thrombocytopenia, unspecified On: 22-Jul-20178:19 Request Metabolic Panel, Comprehensive (89993)Indication: Benign essential hypertension On: 67-Ywp-132781:46 Request MICROALBUMIN: CREATININE RATIO (72636) AND (43508)Indication: Benign essential hypertension On: 64-Onz-095273:45 Request URINALYSIS (93189)Indication: Benign essential hypertension On: 00-Lle-745648:45 Request CBC WITH MANUAL DIFF (47402)Indication: Benign essential hypertension On: 73-Rvi-134079:45 Request Platelet Count, Citrated (82212)Indication: Thrombocytopenia, unspecified On: :11 Request LIPOPROTEIN, BLD, BY NMR (31858)Indication: Mixed hyperlipidemia On: :07 Request Lipase (38289)Indication: Abdominal pain On: 76-Auk-676372:24 Request Comments: add to hospital labs. Amylase (61428)Indication: Abdominal pain On: 87-Xgj-952588:24 Request Comments: add to hospital labs. Antiphospholipid atb (22656)Indication: Pulmonary emboli On: :27 Request ANTICOAG ANTTHROMB III & ASSAY (73091)Indication: Pulmonary emboli On: :27 Request METABOLIC PANEL, COMPREHENSIVE (69757)Indication: Benign essential hypertension On: :37 Request Comments: in three months (approximately) CBC with auto diff (45981)Indication: Benign essential hypertension On: :37 Request Comments: in three months (approximately) Troponin I (87827)Indication: Chest pain at rest On: : Request CPK MB FRACTION (79073)Indication: Chest pain at rest On: : Request CREATINE KINASE TOTAL (16980)Indication: Chest pain at rest On: : Request D-Dimer (91588)Indication: Chest pain at rest On: 3-Vtr-130506:00 Request Metabolic Panel, Basic (35746)Indication: Chest pain at rest On: :58 Request CBC (Auto) (95921)Indication: Chest pain at rest On: :58 Request URINALYSIS, W/ MICRO (09481)Indication: Benign essential hypertension On: :29 Request METABOLIC PANEL, COMPREHENSIVE (82927)Indication: Benign essential hypertension On: :29 Request LIPID PANEL (31978)Indication: Benign essential hypertension On: :29 Request CBC W/AUTO DIFF WBC (98503)Indication: Benign essential hypertension On: :29 Request URINALYSIS (25462)Indication: UTI (lower urinary tract infection) On: :49 Request LIPID PANEL (95799)Indication: Benign essential hypertension On: :27 Request CBC WITH MANUAL DIFF (94230)Indication: Thrombocytopenia, unspecified On: :27 Request METABOLIC PANEL, COMPREHENSIVE (86699)Indication: Benign essential hypertension On: :27 Request TSH (THYROID STIMULATING HORMONE) (97158)Indication: Post-menopausal bleeding On: :37 Request PROLACTIN (03924)Indication: Post-menopausal bleeding On: 97-Hss-29803:37 Request HEPATIC FUNCTION PANEL (90941)Indication: Hyperglyceridemia On: :05 Request LIPOPROTEIN, BLD, BY NMR (72572)Indication: Hyperglyceridemia On: :04 Request CBC, Platelets & Auto Diff (43795)Indication: Thrombocytopenia, unspecified On: :04 Request Comments: citrate tube Potassium Serum (24412)Indication: Hypokalemia On: 35-Eti-631075:36 Request Planned Encounters Medical; JULIANNEP Pre Wellness Exam (DB Nurse) - On: 26-Jul-2018 8:00 [facility] SUZY Spencer; CARRIE Wellness Exam (Doctor) - On: 16-Aug-2018 8:00 [facility] Kelly Hannah MD, MD, Dana M Planned Procedures EEGBy: Kelly Hannah MD On: 21-May-2018 Intent Kelly FLYNN MRI OF BRAIN WITH AND WITHOUT On: 21-May-2018 Intent CONTRAST (47944)By: Kelly Hannah MD, MD, Dana M EKG (61298)By: Kelly Hannah MD On: 02-Dec-2017 Intent Kelly Hannah MD Radiology - Foot - LeftBy: Brielle On: 12-Aug-2017 Intent Kelly FLYNN MD, Dana M TDAP VACCINE >7 IM (11176)By: On: 22-Jul-2017 Intent Kelly Hannah MD, MD, Dana Comments: tdap 0.5mL prefilled syringelot:0WE67gjw:10/2019L DELT IMpt tolerated wellAD RELAY TESTER M MAMMOGRAM BREAST BILATERAL SCREENING On: 02-Apr-2017 Intent DIGITAL (53180)By: Kelly Hannah MD, MD, Dana M Kenalog Injection, 10 mgm On: 15-Feb-2017 Intent (J3301)By: Kelly Hannah MD Comments: lot numer [id number] 05/08 marcaine [id number] 06/21/18 Kelly Hannah MD Echo CompleteBy: Kelly Hannah MD On: 10-Sep-2016 Intent Kelly Hannah MD Comments: rule out pericarditis and ? pericardial fluid EKG (65906)By: Kelly Hannah MD On: 04-Sep-2016 Intent Kelly Hannah MD Comments: see scanned document of test done to see results reviewed today with patient Bone Density StudyBy: Brielle FLYNN, On: 09-Jun-2016 Intent Kelly Hernandez MD Kenalog Injection, 10 mgm On: 21-Apr-2016 Intent (J3301)By: Kelly Hannah MD Comments: buupivacaine lot [id number] 06-21-17 kenalog [id number] 09-05 Kelly Hannah MD DOPPLER ULTRASOUND OF RIGHT UPPER On: 20-Apr-2016 Intent EXTREMITY FOR VENOUS THROMBOEMBOLISM (82770)By: Kelly Hannah MD, MD, Dana M MAMMOGRAM, SCREENING, BOTH BREAST On: 27-Feb-2016 Intent (50294)By: Kelly Hannah MD, MD, Dana M Venous Doppler - BothBy: Brielle FLYNN, On: 06-Dec-2015 Intent Kelly Hernandez MD Comments: lower legs rule out DVT ADMINISTRATION OF INFLUENZA VIRUS On: 18-Apr-2015 Intent VACCINE (G0008)By: Kelly Hannah MD Comments: Lot:[id number]:11-03Route:IMLocation:Rt deltoiiddose: .5mlGiven by:Kelly Potter MD FLU VAC, SPLIT, >3 YEARS, INTRAMUSC On: 18-Apr-2015 Intent (70545)By: Kelly Hannah MD Comments: Lot #:[id number] date:Amount given:0.5mlRoute: IMSite given:L DltdGiven by: Peyton CHAMPION and ABN signed Quad Flu Kelly Hannah MD BILATERAL MAMMOGRAMS (81981)By: On: 05-Nov-2014 Intent Kelly Hannah MD, MD, Dana M CT - Chest (IV Contrast Needed)By: On: 23-Jul-2014 Intent Kelly Hannah MD, MD, Dana M COMPUTED TOMOGRAPHY ANGIOGRAPHY OF On: 23-Jul-2014 Intent CHEST WITH AND WITHOUT CONTRAST Comments: rule out PE (37654)By: Kelly Hannah MD, MD, Dana M EKG (74614)By: Lindsey Verde DO On: 05-Jul-2014 Intent Comments: sinus johanny with no chg MAMMOGRAM, SCREENING, BOTH BREAST On: 26-Apr-2014 Intent (81792)By: Kelly Hannah MD, MD, Dana M BILATERAL MAMMOGRAMS (79717)By: On: 27-Mar-2014 Intent Kelly Hannah MD, MD, Dana M IMMUNIZ ADMNIN, 1 VAC, SNGL/COMBO On: 27-Mar-2014 Intent (62865)By: Kelly Hannah MD Comments: Lot #[id number]-[id number] dltd, IMDose prefilled syringegiven by:MLJOE alanizNVIS and ABN signed Kelly Hannah MD FLU VAC, SPLIT, >3 YEARS, INTRAMUSC On: 27-Mar-2014 Intent (93942)By: Kelly Hannah MD, MD, Dana M Eprescribed prescriptions (G8553)By: On: 10-Oct-2013 Intent Kelly Hannah MD, MD, Dana M Phenergan Injection, up to 50 mg On: 22-Sep-2013 Intent (J2550)By: Nona Whiting CNP Comments: [id number], IM Nyla, RELAY TESTER INFUSION, NORMAL SALINE SOLUTION , On: 22-Sep-2013 Intent 1000 CC (Special Coverage Instructions Apply. See MCM: 2049) ([id number])By: Nona Whiting CNP HYDRATION IV INFUSION, INIT On: 22-Sep-2013 Intent ([id number])By: Nona Whiting CNP Eprescribed prescriptions ([id number])By: On: 10-Jul-2013 Intent Nathalie Nicole Breast Screening - BilateralBy: On: 06-Feb-2013 Intent Kelly Hannah MD, MD, Dana M IMMUNIZ ADMNIN, 1 VAC, SNGL/COMBO On: 06-Feb-2013 Intent ([id number])By: [place] ([id number])By: Tj, On: 06-Feb-2013 Intent SUZY Ultrasound - Abdomen Complete & On: 18-Jan-2013 Intent PelvisBy: Nona Whiting CNP EKG ([id number])By: Kelly Hannah MD On: 12-Jul-2012 Intent Kelly Hannah MD Comments: see scanned document of test done to see results reviewed today with patient Eprescribed prescriptions ([id number])By: On: 12-Jul-2012 Intent Long RELAY TESTER, Nyla L MAMMOGRAM, SCREENING, BOTH BREASTS On: 06-Oct-2011 Intent ([id number])By: Kelly Hannah MD Comments: 11-04-11 Kelly Hannah MD MAMMOGRAM, SCREENING, BOTH BREASTS On: 28-Nov-2010 Intent ([id number])By: Kelly Hannah MD, MD, Dana M MAMMOGRAM, SCREENING, BOTH BREASTS On: 23-Oct-2010 Intent ([id number])By: Kelly Hannah MD, MD, Dana M EEGBy: Lindsey Verde DO On: 20-Aug-2010 Intent EKG ([id number])By: Kelly Hannah MD On: 20-Dec-2009 Intent Kelly Hannah MD EKG ([id number])By: Kelly Hannah MD On: 17-Jan-2009 Intent Kelly Hannah MD MAMMOGRAM, SCREENING, BOTH BREASTS On: 17-Jan-2009 Intent ([id number])By: Kelly Hannah MD, MD, Dana M Pulse Oximetry ([id number])By: Yung On: 04-Jul-2008 Intent Gabriela Comments: 98% Phenergan Injection, up to 50 mg On: 25-Apr-2008 Intent ([id number])By: Nona Whiting CNP Comments: 25mg given IMAmt: 1mlLot: [id number]: 03/2010Route: IMSite: left hipTolerated: wellGiven By: Sherlyn, RELAY TESTER INFUSION, NORMAL SALINE SOLUTION , On: 25-Apr-2008 Intent 1000 CC (Special Coverage Comments: IV Therapy initiated (Hamzah Black LPN)22G, 1inchSite: right wristTolerated: wellB. Ino LPN Instructions Apply. See MCM: 2048) ([id number])By: Nona Whiting CNP HYDRATION IV INFUSION, INIT On: 25-Apr-2008 Intent ([id number])By: Nona Whiting CNP FLU VAC, SPLIT, >3 YEARS, INTRAMUSC On: 21-May-2006 Intent ([id number])By: SUZY Spencer IMMUNIZ ADMNIN, 1 VAC, SNGL/COMBO On: 21-May-2006 Intent ([id number])By: SUZY Spencer Planned Medications INFUSION, NORMAL SALINE [...] for Tdap vaccination (Renamed from Need for vgyprtstgg-jtfcdsf-lkelgrrdb (Tdap) vaccine, adult/adolescent), Thrombocytopenia, unspecified Comprehensive Internal [...] Woman Exam (V72.31) (Pap,Mammo,Routine Female) (Renamed from [employer] Woman V72.31 (p,m)), Obesity (278.00), Thrombocytopenia, unspecified [...] Woman Exam (V72.31) (Pap,Mammo,Routine Female) (Renamed from [employer] Woman V72.31 (p,m)) Comprehensive Internal Medicine Annotation/Addendum On: 28-Nov-2010 9:33 Encounter Diagnosis: Well Woman Exam (V72.31) (Pap,Mammo,Routine Female) (Renamed from [employer] Woman V72.31 (p,m)) End: 28-Nov-2010 10:24 Comprehensive [...] Cold Symptoms: Pt just flew home from [place] yesterday.- yellow green nasal discharge- sx for [...]
--- OUTSIDE RECORDS SUMMARY | 2018-07-14 07:37 | XMS RPT_ITS | Continuity of Care Document ---
:1950 Author Organization [facility] Address [facility] [facility] [address] [place] [address] Phone Care Team Providers Name Role Phone Brielle FLYNN, Priscila Cristina Unavailable Papo Tovar Unavailable Jhony Castillo [...] depression lost job was in . lost [employer] and she has to drive around. life withsomeone OCD, hoarder. on ambien for sleep per Dr. coates. Wellbutrin start but had insomni a in past. working with [employer]. doing okay on incresae welbutrin.tried Effexor, paxil [...] adipex and topamax. 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 got [...] 30 {Tablet} Refills: 0 Ordered:23-Sep-2015 Brielle FLYNN, Priscila Moreno MD, Priscila Cristina Start : 23-Sep-2015 Active Crestor 5 MG Oral Tablet 1 (one) Tablet Tablet in am for 0 days Quantity: 30 {Tablet} Refills: 6 Ordered:02-Dec-2017 SUZY Spencer Start : 02-Dec-2017 Active Diflucan 150 MG Oral Tablet uad Tablet take 1 tablet today and may repeat in 1-2 days if not gone for 0 days Quantity: 2 {Tablet} Refills: 1 Ordered:25-Mar-2018 Priscila Hannah MD, MD, Dana M Start : 25-Mar-2018 Active HydroCHLOROthiazide 25 MG Oral Tablet 1 Tablet QD for 0 days Quantity: 90 {Tablet} Refills: 3 Ordered:08-Jun-2017 Priscila Hannah MD, MD, Dana M Start : 08-Jun-2017 Active Mobic 15 MG Oral Tablet 1 (one) Tablet in am for 0 days Quantity: 30 {Tablet} Refills: 3 Ordered:10-Mar-2018 Priscila Hannah MD, MD, Dana M Start : 10-Mar-2018 Active Potassium Chloride Christina ER 10 MEQ Oral Tablet Extended Release 1 (one) Tablet bid for 0 days Quantity: 60 {Tablet} Refills: 6 Ordered:24-Feb-2018 Priscila Hannah MD, MD, Dana M Start : 24-Feb-2018 Active Propranolol HCl ER 80 MG Oral Capsule Extended Release 24 Hour 1 Capsule ER 24HR qd for 0 days Quantity: 90 {Capsule} Refills: 3 Ordered:08-Jun-2017 Priscila Hannah MD, MD, Dana M Start : 08-Jun-2017 Active Victoza 18 MG/3ML Subcutaneous Solution Pen-injector uad Soln Pen-inj 1.8 mg sc daily for 0 days Quantity: 2 {Package} Refills: 3 Ordered:24-Feb-2018 Priscila Hannah MD, MD, Dana M Start : 24-Feb-2018 Active Vitamin D 2000 UNIT Oral Capsule in am (2000 UNIT) Active Zolpidem Tartrate 5 MG Oral Tablet 1 (one) Tablet qhs prn for 0 days Quantity: 30 {Tablet} Refills: 3 Ordered:21-May-2018 Priscila Hannah MD, MD, Dana M Start : [...] 18-Apr-2015 End : 19-Apr-2015 Inactive BD Disp [place] 30G X 1/2 Miscellaneous 1 (one) Misc Misc bid for 90 days Refills: 3 Ordered:21-Apr-2016 SUZY Spencer Start : 23-Sep-2015 End : 21-Apr-2016 Inactive BELVIQ, 10MG (Oral Tablet) 1 (one) Tablet bid for 30 days Quantity: 60 {Tablet} Refills: 0 Ordered:05-Nov-2014 Brielle FLYNN, Priscila Moreno MD, Priscila Cristina Start : 05-Nov-2014 End : 05-Dec-2014 [...] Inactive Comments:Medication taken as needed. called to [facility] 07-30-09 erussell disp 4 ounces no [...] Extended Release) 1 (one) Tablet ER at [facility] for 14 days for 0 days Quantity: 14 {Tablet_ER} Refills: 0 Ordered:02-May-2010 SUZY Spencer Start : 20-Dec-2009 End : 02-May-2010 Inactive NYSTATIN, 677254OMMS/ML (Mouth/Throat Suspension) 15 Suspension qid swish and swallow for 0 days Quantity: 450 {Milliliter} Refills: 0 Ordered:20-Aug-2010 Suzette Black LPN Start : 04-Aug-2010 End : 20-Aug-2010 Inactive PANTOPRAZOLE SODIUM, 40MG (Oral Tablet Delayed Release) 1 (one) Tablet DR daily for 0 days Quantity: 30 {Tablet} Refills: 6 Ordered:06-Dec-2015 SUZY Spencer Start : 20-Apr-2015 End : 06-Dec-2015 Inactive Pen [place]field 5/16 31G X 8 MM Miscellaneous 1 [...] days Quantity: 30 {Capsule} Refills: 0 Ordered:29-Jun-2014 Priscila Hannah MD, MD, Dana M Start : 29-Jun-2014 End : 29-Jun-2014 Inactive Comments:BMI: 35.67 Rozerem 8 MG Oral Tablet 1 (one) Tablet at night for 0 days Quantity: 30 {Tablet} Refills: 4 Ordered:22-Jul-2017 Priscila Hannah MD, MD, Dana M Start : 22-Jul-2017 End : 22-Jul-2017 Inactive Comments:$ 400.00 a month Simvastatin 20 MG Oral Tablet 1 (one) Tablet qd for 0 days Quantity: 30 {Tablet} Refills: 0 Ordered:15-Feb-2017 Priscila Hannah MD, MD, Dana M Start : [...] days Quantity: 30 {Tablet} Refills: 4 Ordered:02-Dec-2017 Priscila Hannah MD, MD, Dana M Start : 02-Dec-2017 End : 02-Dec-2017 Inactive Comments:myalgia ZITHROMAX Z-JON, 250MG (Oral Tablet) 1 Tablet uad for 0 days Quantity: 1 {Package(s)} Refills: 0 Ordered:13-Nov-2009 Leanne Marie Start : 29-Jul-2009 Inactive ZOSTAVAX, 59642WMG/0.65ML (Subcutaneous Solution Reconstituted) uad For Solution one time SQ dose for 0 days Quantity: 1 {For_Solution} Refills: 0 Ordered:05-Jun-2013 SUZY Spencer Start : 06-Feb-2013 End : 05-Jun-2013 Inactive BuPROPion HCl ER (XL) 300 MG Oral Tablet Extended Release 24 Hour 1 (one) Tablet in am for 0 days Quantity: 30 {Tablet} Refills: 5 Ordered:21-May-2018 Priscila Hannah MD, MD, Dana M Start : 21-May-2018 End : 21-May-2018 Discontinued BYDUREON, 2MG (Subcutaneous Suspension Reconstituted) 1 (one) For Suspension q week for 0 days Quantity: 4 {Box} Refills: 3 Ordered:04-Feb-2015 Priscila Hannah MD, MD, Dana M Start : 04-Feb-2015 End : 04-Feb-2015 Discontinued Byetta 10 MCG Pen 10 MCG/0.04ML Subcutaneous Solution Pen-injector 1 (one) Soln Pen-inj Soln Pen-inj bid for 0 days Quantity: 3 {Each} Refills: 3 Ordered:22-Jan-2016 Priscila Hannah MD, MD, Dana M Start : 22-Jan-2016 End : 22-Jan-2016 Discontinued Byetta 10 MCG Pen 10 MCG/0.04ML Subcutaneous Solution Pen-injector 1 (one) Soln Pen-inj Soln Pen-inj bid for 0 days Quantity: 1 {Each} Refills: 0 Ordered:22-Jan-2016 Priscila Hannah MD, MD, Dana M Start : 22-Jan-2016 End : 22-Jan-2016 Discontinued Comments:with needles INDERAL LA, 80MG (PO Cap CR) 1 QD for 0 days Refills: 0 Ordered:28-Oct-2007 SUZY Spencer End : 28-Oct-2007 Discontinued PHENTERMINE HCL, 37.5MG (Oral Tablet) 1 (one) Tablet Tablet qd for 0 days Quantity: 30 {Tablet} Refills: 0 Ordered:03-Sep-2014 Priscila Hannah MD, MD, Dana M Start : 03-Sep-2014 End : 03-Sep-2014 Discontinued Comments:thirty BMI: 35.35 Tanzeum 50 MG Subcutaneous Pen-injector 1 (one) Pen-injector Pen-injector weekly for 0 days Quantity: 4 {Each} Refills: 4 Ordered:27-Aug-2016 Priscila Hannah MD, MD, Dana M Start : 27-Aug-2016 End : 27-Aug-2016 Discontinued Tanzeum 50 MG Subcutaneous Pen-injector 1 (one) Pen-injector Pen-injector weekly for 0 days Quantity: 12 {Dose_Pack} Refills: 3 Ordered:27-Aug-2016 Priscila Hannah MD, MD, Dana M Start : 27-Aug-2016 End : 27-Aug-2016 Discontinued Trintellix 10 MG Oral Tablet 1 (one) Tablet Tablet in am for 0 days Quantity: 30 {Tablet} Refills: 3 Ordered:27-Aug-2016 Priscila Hannah MD, MD, Dana M Start : [...] epig was in hospital and work up [facility] [place] mortar maker and stress test. ppi and carafate helping. [...] for Tdap vaccination (Renamed from Need for dwhnckyolg-frrotpm-suxdyojfz (Tdap) vaccine, adult/adolescent) (Z23, V06.1) Status: Resolved [...] 2007, 2013 bilateral LEFT HEART CARDIAC CATH (79186) Completed Comments: Dr. Alexander nasal abscess I and D 04-30 Completed Date Value Details 19-May-2018 Brain/Head without Contrast Result: Comments: See Note; NOTES: [facility] Imaging Services [address] [place] [place] [address] Brain/Head without Contrast MR#: [id number] Acct: [id number] Name: DIANA ESCUDERO OLGA Rep # : [id number] : 1950 F 68 From: Kalia Galan PCP: Priscila Hannah MD Status: REG ER Study: Brain/Head without Contrast Date of Exam: 05/19/18 Exam# [id number] Ordering Dr: Puneet Johnson MD STUDY: C [...] EST Tel , Service support , CC: Priscila Hannah MD; Puneet Johnson MD [employer] Machine Assembler: Signed 19-May-2018 Chest 1 View Result: Comments: See Note; NOTES: [facility] Imaging Services [address] [place] [address] Chest 1 View MR#: [id number] Acct: [id number] Name: DIANA ESCUDERO Rep #: [id number] : 1950 F 68 From: Aaron Salgado MD PCP: Priscila Hannah MD Status: REG ER Study: Chest 1 View Date of Exam: 05/19/18 Exam# [id number] Ordering Dr: Puneet Johnson MD STUDY: X-RAY [...] Aaron Salgado MD at 8:13 EST Tel [phone], Service support , CC: Priscila Hannah MD; Puneet Johnson MD [employer] Machine Assembler: Signed 03-Mar-2018 Inital Evaluation (1) - PT Result: Comments: See Note; NOTES: [facility] [address] [place], [place] [address] Fax REHABILITATION SERVICES INITIAL EVALUATION MR#: [id number] Acct: [id number] Name: DIANA ESCUDERO Rep #: [id number] : 1950 68 From: Lazaro Jackson DPNoah Referring Dr.: GENOVEVA Myers Status: REG RCR Insurance: [employer] SELF PAY INSURANCE Patient's Visit Information [...] stabing pain (8/10) at rest. 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 Please let me know if there are questions or concerns regarding this plan of care. Physician Signature: Date: <Electronically signed by Lazaro Jackson DPT&amp ;#62; 03/03/18 1340 CC: GENOVEVA Myers; Priscila Hannah MD CLS Signed For Medicare only, by signing this I certify the plan of care. Physicians Signature Date 16-Feb-2018 12 Lead Electrocardiogram Result: Comments: See Note; NOTES: [facility] Cardiovascular Services [address] [place] [address] 12 Lead EKG 02/14/18 1459 MR#: [id number] Acct: [id number] Name: DIANA ESCUDERO Rep #: [id number] : 1950 68 From: Harris Brandt MD [...] Int : 401 ms Sinus bradycardia Inferior PR, age undeterm ined, cannot be excluded Confirmed by KEVIN FLYNN, HARRIS ([id number]), newspaper copy editor SHIELA DOWELL (56) on 02/16/2018 1:34:57 PM Referred By: BRIEN Confirmed By:HARRIS BRANDT MD 02/16/18 1335 Date __ Harris Brandt MD CC: Priscila Hannah MD; Kasi Worley MD Signed 15-Feb-2018 Emergency Department Summary Result: Comments: See Note; NOTES: [facility] Medical Records Department [address] [place] [address] Emergency Department Summary 02/14/18 1636 MR#: [id number] Acct: [id number] Name: DIANA ESCUDERO Rep #: [id number] : 1950 68 From: Kasi Worley MD PCP: Priscila Hannah MD Status: DEP ER - ER [...] score 1. This note was generated with OpenPortalation software. It may contain incorrect words, spelling, and punctuation that were not noted in review of the chart prior to signing ED Disposition - Plan for ED Patient: Disposition: Home or Assisted Living Chief Complaint: Chest Pain Instructions: ED Chest Pain Atypical Unkn Cause Referrals: Priscila Resendiz i, MD [Primary Care Provider] - 3-5 Days if not improving What to do if you have Problems For any increased pain, shortness of breath, bleeding, nausea or vomiting, chest pain, or any unexpecte d problems, contact your Primary Care Provider. Call [facility] ([phone]) or report to the closest Emergency Room. Call 911 if necessary. 02/15/18 0046 <Electronically signed by Jose Daniel Worley MD> Date Kasi Worley MD Cosigner Signature (If Indicated): Date CC: Priscila Hannah MD 14-Feb-2018 Venous Duplex Lower Extremity Result: Comments: See Note; NOTES: [facility] Cardiovascular Services [address] [place] [address] Venous Duplex US, Unilateral 02/14/18 1549 MR#: [id number] Acct: [id number] Name: DIANA HICKMAN OLGA Rep #: [id number] : 1950 68 From: Abdoulaye Landa MD [...] thrombosis. Ordering Physician: Kasi Worley Referring Physician: Priscila Hannah M.D. Performed By: Melani Goodwin RVT Electronic ally signed by: Abdoulaye Landa MD on 02/14/2018 05:41 PM 02/14/181740 Date Abdoulaye Landa MD CC: Priscila Hannah MD; aKsi Worley MD Date Dictated: 0 02/14/18 1549 Date Transcribed: 02/14/181740 [employer]er[employer] Machine Assembler: Signed 14-Feb-2018 Chest 1 View (Portable) Result: Comments: See Note; NOTES: [facility] Imaging Services [address] [place] [address] Chest 1 View (Portable) MR#: [id number] Acct: [id number] Name: DIANA ESCUDERO OLGA Rep #: [id number] : 1950 F 68 From: Aaron Salgado MD PCP: Priscila Hannah MD Status: REG ER Study: Chest 1 View (Portable) Date of Exam: 02/14/18 Exam# [id number] Ordering Dr: Kasi Worley MD STUD Y: [...] Aaron Salgado MD at 15:52 EDT Tel [phone], Service support , CC: Priscila Salgado; Kasi Worley MD [employer]er[employer] Machine Assembler: Signed 24-Jan-2018 Cardiology Visit Report Result: Comments: See Note; NOTES: [facility] [address] [place] [address] OFFICE VISIT Date of Service: 01/24/18 MR#: [id number] Acct: [id number] Name: DIANA ESCUDERO Rep #: [id number] : 1950 Provider: Puneet Alexander MD Age/Sex: 67/F Location: [facility] Status: Signed HPI HPI Chief Complaint: Routine f/u Details: HPI This is a 66-year-old female who was ini tiay referred to us for evaluation of chest [...] bike without difficulty. In our office edmund y her blood pressure is 100/64, and [...] Intake Visit Reasons: 6 M FU In [facility] Required: No Allergies simvastatin [From Zocor] Adverse [...] mg PO QDAY 01/24/18 [History Confirmed 01/24/18] [facility] Medical History Obstructive sleep apnea (Chronic) History of pulmonary embolism (Chr onic) Atherosclerosis of coronary artery of [place] heart without angina pectoris (Chronic) Hypertension (Chronic) [...] Plan 1. Atherosclerosis of coronary artery of [place] heart without angina pectoris I25.10 Non Obs [...] 3 Diagnoses Atherosclerosis of coronary artery of [place] heart without angina pect ranulfo I25.10 Hyperlipidemia E78.5 Coding Level of Care Code Off vis,est,level 3 Diagnoses Atherosclerosis of coronary artery of [place] heart without angina pectoris I25.10 Hyperlipidemia E78.5 12/06 1536 <Electronically signed by Puneet Alexander MD> Date Puneet Alexander MD Cosigner Signature: Date (if applicable) CC: Priscila Hannah MD 12-Aug-2017 Foot min 3 Views Result: Comments: See Note; NOTES: [facility] Imaging Services [address] [place] [address] Foot min 3 Views MR#: [id number] Acct: [id number] Name: DIANA ESCUDERO Rep #: [id number] : 1950 F 67 From: Aaron Salgado MD PCP: Priscila Hannah MD Status: REG CLI Study: Foot min 3 Views Date of Exam: 08/12/17 Exam# [id number] Ordering Dr: Priscila Hannah MD STUDY: X-RAY - LEFT FOOT [...] Salgado MD 08/08/21 at 14:14 EST Tel [phone], Service support , CC: Priscila Hannah MD [employer] Machine Assembler: Signed 05-Aug-2017 TXT - Blood Flow Screening Result: Comments: See Note; NOTES: [facility] Cardiovascular Services [address] [place] [address] 08/05/17 0756 MR#: [id number] Acct: [id number] Name: DIANA ESCUDERO Rep #: [id number] : 1950 67 From: Marcus Garza MD Attending Dr: Priscila Hannah MD Status: REG REF Ordering Dr: Date: 08/05/17 Location: [facility] Sex: F C Admitted: Carotid [...] greater). Performed By: Jj Ortega RVT Electron icallkori signed by: Marcus Garza MD on 08/05/2017 09:30 PM 08/05/172129 Date Marcus Garza MD CC: Priscila Hannah MD Date Dictated: 08/05/17 075 Date T ranscribed: 08/05/172129 Xerox Machine Assembler: Signed 15-Jul-2017 Cardiology Visit Report Result: Comments: See Note; NOTES: [facility] [address] [place] [address] OFFICE VISIT Date of Service: 07/15/17 MR#: [id number] Acct: [id number] Name: DIANA ESCUDERO OLGA Rep #: [id number] : 1950 Provider: Puneet Alexander MD Age/Sex: 67/F Location: [facility] Status: Signed HPI 6 M FU: Chief [...] Hyperlipidemia (Chronic) Atherosclerosis of coronary artery of [place] heart without angina pectoris (Chronic) Blood glucose [...] (CAD), BILAT Result: Comments: See Note; NOTES: [facility] Imaging Services [address] [place] [address] SCREENING MAMM (CAD), BILAT MR#: [id number] Acct: [id number] Name: DIANA ESCUDERO Rep # : [id number] : 1950 F 67 From: Aaron Salgado MD PCP: Priscila Hannah MD Status: REG CLI Study: SCREENING MAMM (CAD), BILAT Date of Exam: 04/19/17 Exam# [id number] Ordering Dr: Priscila Hannah MD MAMMOGRAPHY - BILATERAL SCREENING REASON [...] delay biopsy of a clinically suspicious abnormality. [id number] Electronically Signed: Aaron Salgado MD at 8:33 EDT Tel [phone], Service support , CC: Priscila Hannah MD Xerox Machine Assembler: Signed 16-Sep-2016 Echocardiogram Complete Result: Comments: See Note; NOTES: [facility] Cardiovascular Services [address] [place] [address] Echo Complete 09/16/16 0956 MR#: [id number] Acct: [id number] Name: DIANA ESCUDERO Rep #: [id number] : 1950 66 From: Emil Craven MD Attending Dr: Priscila Hannah MD Status: REG CLI Ordering Dr: Priscila Hannah MD Date: 09/16/16 Location: [facility] Sex: F C Admitted: Reason [...] systolic pressure is 28 mmHg. Ordering Physician: Priscila Hannah Performed By: Maggi Ruffin, ANNEMARIE, RVT 09/16/16 1145 Date Emil Craven MD CC: Priscila Hannah MD Date Dictated: 09/16/16 0956 Date Transcribed: 09/16/16 1145 Xerox Machine Assembler: Signed 04-Sep-2016 CTA Chest W/WO Contrast Result: Comments: See Note; NOTES: [facility] Imaging Services [address] [place] [address] Verpriscila 4d CTA Chest W/WO Contrast MR#: [id number] Acct: [id number] Name: KENADIANAULI Roberts Rep #: [id number] : 1950 F 66 From: Aaron Salgado MD PCP: Priscila Hannah MD Status: REG ER Study: CTA Chest W/WO Contrast Date of Exam: 09/04/16 Exam# [id number] Ordering Dr: Leanne Finn STUDY: CTA CHEST [...] Burak Salgado MD at 11:40 EDT Tel [phone], Service support [phone], CC: Leanne Finn MD; Priscila Hannah MD Xerox Machine Assembler: Signed 23-Jun-2016 Dexa Bone Density Study (HP) Result: Comments: See Note; NOTES: [facility] Imaging Services [address] [place] [address] Verdana 4d Dexa Bone Density Study (HP) MR#: [id number] Acct: [id number] Name: EDUARDO ESCUDERO Rep #: [id number] : 1950 F 66 From: Aaron Salgado MD PCP: Priscila Hannah MD Status: REG CLI Study: Dexa Bone Density Study (HP) Date of Exam: 06/23/16 Exam# [id number] Ordering Dr: Priscila Posey MD STUDY: DUAL ENERGY X-RAY ABSORPTIOMETRY [...] Aaron Salgado MD at 16:05 EST Tel [phone], Service support [phone], CC: Priscila Hannah MD Xerox Machine Assembler: Signed 20-Apr-2016 Venous Duplex Lower Extremity Result: Comments: See Note; NOTES: [facility] Cardiovascular Services [address] [place] [address] Venous Duplex US, Unilateral 04/20/16 1428 MR#: [id number] Acct: [id number] Name: DIANA ESCUDERO OLGA Rep #: [id number] : 1950 66 From: Marcus Garza MD Attending Dr: Priscila Hannah MD Status: REG CLI Ordering Dr: Priscila Hannah MD Date: 04/20/16 Location: [facility] Sex: F C Admitted: Reason For Study: LEG PAIN RIGHT LEFT GSV is normal. CFV is compressible, spontaneous, phasic , CFV is compressible, spontaneous, phasic, competent, and demonstrates normal competent and demonstra asrah normal augmentation. augmentation. FV is compressible, spontaneous, [...] appears patent and compressible segmentally. Ordering Physician: Priscila Hannah Performed By: Melani Goodwin RVT 04/20/162149 Date _ Marcus Garza MD CC: Priscila Hannah MD Date Dictated: 04/20/16 1428 Date Transcribed: 04/20/162149 Xerox Machine Assembler: Signed 23-Mar-2016 Bilat Scrn Digital AND CAD Result: Comments: See Note; NOTES: [facility] Imaging Services [address] [place] [address] Verdana 4d Bilat Scrn Digital AND CAD MR#: [id number] Acct: [id number] Name: ANGELA ESCUDERO OLGA Rep #: [id number] : 1950 F 66 From: Aaron Salgado MD PCP: Priscila Hannah MD Status: REG CLI Study: Bilat Scrn Digital AND CAD Date of Exam: 03/23/16 Exam# [id number] Ordering Dr: Priscila Resendiz i, MD MAMMOGRAPHY - BILATERAL SCREENING [...] delay biopsy of a clinically suspicious abnormality. [id number] Electronically Signed: Aaron Salgado MD at 7:51 EDT Tel [phone], Service support [phone], CC: Priscila Hannah MD Xerox Machine Assembler: Signed 02-Jan-2016 Venous Duplex Lower Extremity Result: Comments: See Note; NOTES: [facility] Cardiovascular Services [address] [place] [address] Venous Duplex US - Johnny Extrem 01/02/16 1454 MR#: [id number] Acct: [id number] Name: KENADIANA JO Rep #: [id number] : 1950 65 From: Marcus Garza MD Attending Dr: Priscila Hannah MD Status: REG CLI Ordering Dr: Priscila Hannah MD Date: 01/02/16 Location: [facility] [...] to the patient's body habitus. Ordering Physician: Priscila Hannah Referring Physician: Priscila Hannah Performed By: Rachana Egan, RDCS, RVT 01/02/16 1653 Date Marcus Garza MD CC: Priscila Hannah MD Date Dictated: 01/02/16 1454 Date Transcribed: 01/02/161653 Xerox Machine Assembler: Signed 12-Dec-2015 12 Lead Electrocardiogram Result: Comments: See Note; NOTES: [facility] Cardiovascular Services [address] [place] [address] 12 Lead EKG 12/03/151124 MR#: [id number] Acct: [id number] Name: DIANA DOWLING Rep #: [id number] : 1950 65 From: Puneet Alexander MD [...] normal ECG Confirmed by PUNEET ALEXANDER ([id number]), newspaper copy editor SHIELA DOWELL ([id number]) on 12/09/2015 10:54:37 AM Referred By: KIRT Confirmed By:PUNEET ALEXANDER 12/09/15 1054 Date ___ Puneet Alexander MD CC: Priscila Hannah MD Date Dictated: 12/03/15 1125 Date Transcribed: 12/03/15 112 Xerox Machine Assembler: Signed 03-Dec-2015 Emergency Department Summary Result: Comments: See Note; NOTES: [facility] Medical Records Department [address] [place] [address] Emergency Department Summary MR#: [id number] Acct: [id number] Name: DIANA ESCUDERO Rep #: [id number] : 1950 65 From: Leanne Finn MD PCP: Priscila Hannah MD Status: DEP ER DATE OF [...] PCP. DIAGNOSIS: Pleurisy. Leanne Finn MD T: [facility] JOB: [id number] 12/03/15 1536 <Electronically signed by Leanne Finn MD& #62; Date Leanne Finn MD Cosigner Signature (If Indicated): Date CC: Priscila Hannah MD Da te Dictated: 12/03/151356 Date Transcribed: 12/03/151356 Xer[employer] Machine Assembler: Signed 03-Dec-2015 Discharge Instruction Result: Comments: See Note; NOTES: [facility] Medical Records Department [address] [place] [address] Discharge Instruction 12/03/154 MR#: [id number] Acct: [id number] Name: DIANA ESCUDERO Rep #: [id number] : 1950 65 From: Leanne Finn MD PCP: Priscila Hannah MD Status: REG ER ED Disposition - Plan for ED Patient: Chief Complaint: Chest Pain Instru ctions: ED Pleurisy Referrals: Priscila Hannah MD [Primary Care Provider] - 3- 5 Days if not improving What to do if you have Problems For any increased pain, shortness of breath, bleeding, nausea or vomiting, chest pain, or any unexpected problems, contact your doctor. Call [facility] ([phone]) or report to the closest Emergency Room. Call 911 if necessary. 12/03/15 1357 &# 60;Electronically signed by Leanne Finn MD> Date Leanne Finn MD Cosigner Signature (If Indicated): Date CC: Priscila Hannah MD 03-Dec-2015 CTA Chest W/WO Contrast Result: Comments: See Note; NOTES: [facility] Imaging Services [address] [place] [address] Verdana 4d CTA Chest W/WO Contrast MR#: [id number] Acct: [id number] Name: DIANA MENESES Rep #: [id number] : 1950 F 65 From: Aaron Salgado MD PCP: Priscila Hannah MD Status: REG ER Study: CTA Chest W/WO Contrast Date of Exam: 12/03/15 Exam# [id number] Ordering D r: Leanne Finn MD STUDY: [...] Aaron Salgado MD at 13:37 EDT Tel [phone], Service support [phone], CC: Leanne Finn MD; Priscila Hannah MD Xerox Machine Assembler: Signed 24-Jul-2015 Sleep Study Report Result: Comments: See Note; NOTES: [facility] [address] [place] [address] Split Night Sleep Study MR#: [id number] Acct: [id number] Name: Miguel Angel ESCUDERO Rep #: [id number] : 1950 65 From: Jimmy Coates MD PCP: Priscila Hannah MD Status: REG CLI Ordering Dr.: Priscila Hannah MD Date: 07/19/15 Sex: F C DATE OF SERVICE: 07/19/2015 SCOR ING RULES: Respiratory events were acquired and scored in accordance with the Recommended Standards and Specifications as outlined in the AASM Manual for the Scoring of Sleep and Associated Events ( m ost recent version). Please note that a reference to [facility] HEALTHCARE AHI in this report is consistent with the current Hypopnea definition according to Medicare Criteria and an [facility] AHI reference is consistent wit h the current Hypopnea definition according to the AASM criteria and is recognized by [facility] as the RDI. PROCEDURE: The study was attended continuously by a production technician. Monitored parameters inclu ded left and [...] calculated body mass index of 35 and [place] Sleepiness Scale score of 6/20. The patient [...] and heated humidity. SLEEP STUDY DATA: The [facility] split night study began at 1114:07 [...] index. INTERPRETING PHYSICIAN: Jimmy Coates Jr., M.D. Jimmy Coates MD T: NTS JOB: [id number] CC: Jimmy Coates MD DD: 08/06 4207/24/15 2205 <Electronically signed by Jimmy Coates MD> Date Jimmy Coates MD Co-signature (if appli cable) Date Signed 12-Feb-2015 Chest 1 View (Portable) Result: Comments: See Note; NOTES: [facility] Imaging Services [address] [place] [place] [address] Radiology Report MR#: [id number] Acct: [id number] Name: KENADIANA JO Rep #: [id number] : 1950 F 65 From: Aaron Salgado MD PCP: Priscila Hannah MD Status: PRE ER Study: Chest 1 View (Portable) Date of Exam: 02/12/15 Exam# [id number] Ordering Dr: Kenroy Arciniega MD S TUDY: X-RAY CHEST REASON FOR EXAM: Female, 65 [...] Aaron Salgado MD at 11:08 EDT Tel [phone], Service support [phone], RAD/Chest 1 View (Portable) IMPRESSION: No acut e abnormality is seen. Electronically Signed: Aaron Salgado MD at 11:08 EDT Tel [phone], Service support [phone], CC: Priscila Hannah MD; Kenroy Arciniega MD Xerox Machine Assembler: Signed 12-Feb-2015 CTA Chest W/WO Contrast Result: Comments: See Note; NOTES: [facility] Imaging Services [address] [place] [address] CAT Scan Report MR#: [id number] Acct: [id number] Name: DIANA ESCUDERO OGLA Rep #: [id number] : 1950 F 65 From: Aaron Salgado MD PCP: Priscila Hannah MD Status: REG ER Study: CTA Chest W/WO Contrast Date of Exam: 02/12/15 Exam# [id number] Ordering Dr: Kenroy Arciniega MD UDY: CTA [...] Aaron Salgado MD at 12:08 EDT Tel [phone], Service support [phone], CC: Priscila Hannah MD; Kenroy Arciniega MD Xerox Machine Assembler: Signed 11-Jan-2015 Bilat Scrn Digital AND CAD Result: Comments: See Note; NOTES: [facility] Imaging Services [address] [place] [address] Breast Imaging Report MR#: [id number] Acct: [id number] Name: DIANA ESCUDERO Rep #: [id number] : 1950 F 64 From: Shaan Nunez PCP: Priscila Hannah MD Status: REG CLI Study: Bilat Scrn Digital AND CAD Date of Exam: 01/11/15 Exam# [id number] Ordering Dr: Priscila Hannah MD MAMMOGRAPHY - BILATERAL SCREENING REASON [...] facility within 30 days. According to [employer], yearly mammograms are recommended starting [...] small neoplasms. Elect ronically Signed: Shaan Nunez at 10:22 EDT Tel [phone], Service support [phone], CC: Priscila Hannah MD Xerox Machine Assembler: Signed 23-Jul-2014 CTA Chest W/WO Contrast Result: Comments: See Note; NOTES: [facility] Imaging Services [address] [place] [address] CAT Scan Report MR#: [id number] Acct: [id number] Name: DIANA ESCUDERO Rep #: [id number] : 1950 F 64 From: Aaron Salgado MD PCP: Priscila Hannah MD Status: REG CLI Study: CTA Chest W/WO Contrast Date of Exam: 07/23/14 Exam# [id number] Ordering Dr: Priscila Hannah MD S TUDY: CTA CHEST REASON [...] Aaron Salgado MD at 12:47 EST Tel [phone], Service support [phone], CC: Priscila Hannah MD Xerox Machine Assembler: Signed 04-Jan-2014 Consultation Result: Comments: See Note; NOTES: [facility] Medical Records Department [address] [place] [address] Consultation 01/04/14 1218 MR#: [id number] Acct: [id number] Name: DIANA ESCUDERO Rep #: [id number] : 1950 63 From: Juancho Foy MD PCP: Priscila Hannah MD Status: REG [facility] Y Location: [place] [address] Problem List (1) Bradycardia Status: Acute (2) [...] showed sinus bradycardia, normal QRS duration, normal WV interval, normal QT interval, no ischemic hardy [...] PO Q4H PRN PRN #30 tablet 01/04/14 [[place] 5/325] Surgical History: appendectomy, cholecystectomy, - - Hysterectomy Psychiatric History: No pertinent psych hx 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 01/04/14 1245 <Electron icafernando signed by Juancho Foy MD> Date Juancho Foy MD CC: Priscila Hannah MD Signed 04-Jan-2014 Discharge Instruction Result: Comments: See Note; NOTES: [facility] Medical Records Department [address] [place] [address] Instructions for Home/Discharge Instructions 01/04/14 0731 MR#: [id number] Acc t: [id number] Name: DIANA ESCUDERO Rep #: [id number] : 1950 63 From: Anatoly Diego MD PCP: Priscila Hannah MD Status: REG [facility] Discharge Diet: No Restrictions Discharge Activity: Return [...] PRN PRN #60 capsule Hydrocodone Bitart/Apap 5-325 [[place] 5/325] 1 tablet PO Q4H PRN PRN #30 tablet Please Follow Up With: Anatoly Dieog When: 2-3 weeks Proposed Discharge Date: 01/05/14 01/04/14 0735 <Electronically signed by Anatoly Diego MD> Date Anatoly Diego MD CC: Priscila Hannah MD 10-Oct-2013 EKG (68467) Comments: see scanned document of test done to see results reviewed today with patient Result: [MEASUREMENTS ANALYSIS] Date of Test: 10/10/2013 08:20:27; Heart Rate: 64; WV Interval: 160; QRS: 90; QT Interval: 394; Corrected QT Interval (QTc): 401; P Wave Soper: 50; QRS Wave Soper: 5; T Wave Soper: 14; Blood Pressure: 122/78 [ECG DIAGNOSTIC STATEMENTS] [...] week Status: Active 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 YHow was Urine Obtained? SIGNAL OPERATOR TECHNICAL TO [facility] [address] [place], [place], [address] MUCUS, URINE 0 SEEN {/hpf} (Normal) BACTERIA [...] (Normal) :26 Basic Metabolic Profile (BMP) Comments: [facility] [address] [place], [place], [address] GAP 5 (Normal) Range: 5-15 CO2 29.0 [...] A.D.A. criteria.Please note revised GLUCOSE reference range ndvogpxpc86/02/2018. 22-Bfr-73544:26 CBC W/Diff, Automated Comments: [facility] [address] [place], [place], [address] Absolute Lymph 2.03 {X10_3/ul} (Normal) Range: 0.83-4.51 [...] Range: 4.4-11.0 :26 Partial Thromboplast Time Comments: [address], [address] PTT 28.1 s (Normal) Range: 24.1-36.2 :26 Prothrombin Time w/INR Comments: [address], [address] INR 1.0 (Normal) PROTIME 12.7 s (Normal) Range: 11.7-14.9 :26 Troponin-I Comments: [address], [id number] TROPONIN-I < 0.015 ng/mL (Normal) Comments: TROPONIN-I EXPECTED VALUES <0.045 Negative 0.045 - 0.590 Consistent with Cardiac Damage > OR = 0.600 Critical Value Not every elevated troponin is indicative of PR. T hesevalues should be used with clinical judgement in examiningthe patient's clinical picture for diagnosis. To establisha diagnosis of PR versus myocardial injury, there must be ademonstrated rise and/ or fall in the troponin values, inaddition to ischemic symptoms, EKG changes, new regionalwall motion abnormality, and/or angiographical evidence. PLEASE NOTE: REFERENCE RANGES EDITED 11/01/1719-May-20187:13 Bedside Glucose Comments: [facility] LaboratoryPoint of [address] [place], [place] [address] BEDSIDE GLU 101 mg/dL (Normal) Range: 70-110 Comments: MANAGEMENT OF PATIENT CARE PER NURSING PROTOCOL :16 LIPOPROTEIN, BLD, BY NMR Comments: PATIENT WAS FASTINGPERFORMED BY: LabCo[address] [id number] ([address]) LP-IR Score 81 (Abnormal) Comments: INSULIN RESISTANCE MARKER <--Insulin Sensitive Insulin Resistant--> Percentile in Reference PopulationInsulin Resistance ScoreLP-IR Score Low 25th 50th 75th High <27 27 45 63 >63LP-IR Score is inaccurate if patient is non-fasting. .The LP-IR score is a laboratory developed i [facility] that has beenassociated with insulin [...] 1600 - 2000 Very High > 2000 28-Ewi-801085:35 Basic Metabolic Profile (BMP) Comments: [facility] [address] [place], [address] GAP 10 (Normal) Range: 5-15 CO2 30.0 [...] A.D.A. criteria.Please note revised GLUCOSE reference range akgfdonoc62/02/2018. 25-Dae-221925:35 CBC W/Diff, Automated Comments: [facility] [address] [place], [address] Absolute Lymph 2.44 {X10_3/ul} (Normal) Range: 0.83-4.51 [...] 4.2-5.4 WBC 7.3 K/mm3 (Normal) Range: 4.4-11.0 48-Syk-109137:35 Troponin-I Comments: [facility] [address] [place], [address] TROPONIN-I < 0.015 ng/mL (Normal) Comments: TROPONIN-I EXPECTED VALUES <0.045 Negative 0.045 - 0.590 Consistent with Cardiac Damage > OR = 0.600 Critical Value Not every elevated troponin is indicative of PR. T hesevalues should be used with clinical judgement in examiningthe patient's clinical picture for diagnosis. To establisha diagnosis of PR versus myocardial injury, there must be ademonstrated rise and/ or fall in the troponin values, inaddition to ischemic symptoms, EKG changes, new regionalwall motion abnormality, and/or angiographical evidence. PLEASE NOTE: REFERENCE RANGES EDITED 11/01/1723-Sep-20178:28 Pathology Report Comments: PERFORMED BY: LUSI LabGus [place] Uauw1833 [facility] [id number] BY: [facility] Dermatopathology [address] [place] [address] [id number] Information: [id number] See MATER Comments: Material submitted: .RIGHT HAND BIOPSYClinical history: .BLACK SPOT ON HAND Note (Normal) Diagnosis:BLUE NEVUS./09/28/2017Electronically signed: .Mya Fay MD, DermatopathologistGross description: .RECEIVED IN FORMALIN LABELED DIANA ESCUDERO AND PALOMO HAND IS A PUGH SKIN PUNCH BIOPSY MEASURING 3.0 MM IN ANDREW METERAND 2.0 MM THICK WITH A OLIVAS, RAISED AREA 2.5 X 1.5 MM. RADHAIN FAHAD.FUN/TMZPathologist provided ICD-10:D22.61CPT .331904 77-Btc-23633:47 Platelet Count on Comments: PATIENT WAS FASTINGPERFORMED BY: Drik [facility] [address] [id number] BY: CB [facility] Rkhcmi4559 [facility] [id number] Citrated Bld Plt Count, Citrated Bld 160 {X10E3/uL} (Normal) Range: 150-379 :47 LIPOPROTEIN, BLD, BY NMR Comments: PATIENT WAS FASTINGPERFORMED BY: Drik [facility] Alawmwktxv9219 [facility] [id number] BY: [facility] Ylqgnw9952 [facility] [id number] Information: PLATELET ON CITRATE BLD 911661 (68038) LP-IR Score 85 (Abnormal) Comments: INSULIN RESISTANCE MARKER <--Insulin Sensitive Insulin Resistant--> Percentile in Reference PopulationInsulin Resistance ScoreLP-IR Score Low 25th 50th 75th High <27 27 45 63 >63LP-IR Score is inaccurate if patient is non-fasting. .The LP-IR score is a laboratory developed i [facility] that has beenassociated with insulin [...] were developed and their performance characteristicsdetermined by [employer]. These assays have not been cleared by [...] 1600 - 2000 Very High > 2000 06-Rnh-44683:43 Albumin/Creatinine Ratio,Urine Comments: PATIENT NOT FASTINGPERFORMED BY: YouWeb6370 [address] [facility] [id number] Alb/Creat Ratio <1.4 {mg/g_creat} (Normal) Range: 0.0-30.0 Albumin, Urine <3.0 ug/mL (Normal) Creatinine, Urine 212.4 mg/dL (Normal) :43 CBC With Differential/Platelet Comments: PATIENT NOT FASTINGPERFORMED BY: YouWeb6370 [facility] [id number] Immature Grans (Abs) 0.0 {x10E3/uL} (Normal) Range: [...] 3.77-5.28 WBC 6.3 {x10E3/uL} (Normal) Range: 3.4-10.8 29-Wfn-77980:43 Comp. Metabolic Panel (14) Comments: PATIENT NOT FASTINGPERFORMED BY: [facility]CoEnglewood Hospital and Medical CenterPxzqny7313 [facility] [id number] ALT (SGPT) 18 [iU]/L (Normal) Range: 0-32 [...] Glucose, Serum 100 mg/dL (Abnormal) Range: 65-99 66-Pbi-02585:43 Urinalysis, Routine Comments: PATIENT NOT FASTINGPERFORMED BY: Unmetriclin6370 [facility] [id number] Microscopic Examination MICNIP (Normal) Comments: Microscopic not indicated and not performed. Nitrite, Urine Negative (Normal) Urobilinogen,Semi-Qn 0.2 mg/dL (Normal) Range: 0.2-1.0 Bilirubin Negative (Normal) Occult Blood Negative (Normal) Ketones Negative (Normal) Glucose Negative (Normal) Protein Negative (Normal) WBC Esterase Negative (Normal) Appearance Clear (Normal) Urine-Color Yellow (Normal) pH 6.0 (Normal) Range: 5.0-7.5 Specific [place] 1.025 (Normal) Range: 1.005-1.030 59-Wmw-275629:21 FLU A+B DIRECT AG, (RAPID) (60481) FLU A+B DIRECT AG, (RAPID) negative (Normal) :32 Potassium Serum (28588) Comments: PATIENT NOT FASTINGPERFORMED BY: SplingEnglewood Hospital and Medical CenterZjmtbx0481 [facility] [id number] BY: [address] [id number] Potassium, Serum 3.9 mmol/L (Normal) Range: 3.5-5.2 :32 Magnesium (12267) Comments: PATIENT NOT FASTINGPERFORMED BY: SplingBrian [place] [address] [facility] [id number] BY: [address] [id number] Magnesium, Serum 2.0 mg/dL (Normal) Range: 1.6-2.3 :32 CCP ANTIBODY (90116) Comments: PATIENT NOT FASTINGPERFORMED BY: SplingBrian [place] [address]70 [facility] [id number] BY: [address] [id number] CCP Antibodies IgG/IgA 10 {units} (Normal) Range: 0-19 Comments: Negative <20 Weak positive 20 - 39 Moderate positive 40 - 59 Strong positive >59 :32 TSH (44785) Comments: PATIENT NOT FASTINGPERFORMED BY: SplingBrian [place] [address]70 [facility] [id number] BY: [address] [id number] TSH 3.380 {uIU/mL} (Normal) Range: 0.450-4.500 :32 SED RATE ERYTHROCYTE Comments: PATIENT NOT FASTINGPERFORMED BY: Spling[place] [address]70 [facility] [id number] BY: [address] [id number] (13890) Sedimentation Rate-Westergren 14 mm/h (Normal) Range: 0-40 :32 C-REACTIVE PROTEIN (65242) Comments: PATIENT NOT FASTINGPERFORMED BY: [facility] Medical CenterWombat Security TechnologiesBrian Ville [address]70 [facility] [id number] BY: [address] [id number] C-Reactive Protein, Quant 3.5 mg/L (Normal) Range: 0.0-4.9 97-Odm-70603:32 JESUS ALBERTO (ANTINUCLEAR ANTIBODY) Comments: PATIENT NOT FASTINGPERFORMED BY: CB [facility] Lypuvl8543 [place] [id number] BY: BN [facility] Oabtotcclf3208 [facility] [id number]; fu 3-30 (01477) JESUS ALBERTO Direct Negative (Normal) 84-Hor-104989:37 Basic Metabolic Profile (BMP) Comments: 'TROP' Serial specimen #1, #2, #3, or #4: 1[facility] [address] [place], [address] GAP 8 (Normal) Range: 5-15 [...] <126 mg/dLsuggests IMPAIRED HOMEOSTASIS per A.D.A. criteria. 35-Ybz-157905:37 CBC W/Diff, Automated Comments: [facility] [address] [place], [place], [address] Absolute Lymph 1.93 {X10_3/ul} (Normal) Range: 0.83-4.51 [...] 4.2-5.4 WBC 5.9 K/mm3 (Normal) Range: 4.4-11.0 72-Qsm-043906:37 Troponin-I Comments: 'TROP' Serial specimen #1, #2, #3, or #4: [address] [place] [address] [address] [place], [address] TROPONIN-I < 0.02 ng/mL (Normal) Comments: TROPONIN-I EXPECTED VALUES <0.05 NEGATIVE 0.06 - 0.59 AT RISK OF PR > OR = 0.60 SUGGEST PR 97-Xtj-529603:16 HEPATITIS C ANTIBODY (97225) Comments: CLient bill for this; PATIENT NOT FASTINGPERFORMED BY: [facility] Vyvrux9687 [facility] [id number] Hep C Virus Ab <0.1 {s/co_ratio} (Normal) Range: 0.0-0.9 Comments: Negative: < 0.8 Indeterminate: 0.8 - 0.9 Positive: > 0.9 . The CDC recommends that a positive HCV antibody result be followed up with a HCV Nucleic Acid Amplification test (124814). :32 CBC W/Diff, Automated Comments: [facility] [address] [place], [address] Absolute Lymph 2.31 {X10_3/ul} (Normal) Range: 0.83-4.51 [...] 1'CKMB' Serial Specimen #1, #2 or #3? [address] [place] [address] [address] [place], [address] GAP 7 (Normal) Range: 5-15 [...] 1'CKMB' Serial Specimen #1, #2 or #3? [address] [place] [address] [address] [place], [place], [address] CKRI 1.1 % (Normal) Range: 0.0-1.4 Comments: [...] 1'CKMB' Serial Specimen #1, #2 or #3? 1[facility] [address] [place], [address] TROPONIN-I < 0.02 ng/mL (Normal) Comments: TROPONIN-I EXPECTED VALUES <0.05 NEGATIVE 0.06 - 0.59 AT RISK OF PR > OR = 0.60 SUGGEST PR :30 CBC (Auto) (98886) Comments: PATIENT WAS FASTINGPERFORMED BY: FameCastEnglewood Hospital and Medical CenterRrqkmc3328 [facility] [id number] Platelets 165 {x10E3/uL} (Normal) Range: 150-379 RDW 13.8 % (Normal) Range: 12.3-15.4 MCHC 33.1 g/dL (Normal) Range: 31.5-35.7 MCH 31.2 pg (Normal) Range: 26.6-33.0 MCV 94 fL (Normal) Range: 79-97 Hematocrit 43.2 % (Normal) Range: 34.0-46.6 Hemoglobin 14.3 g/dL (Normal) Range: 11.1-15.9 RBC 4.59 {x10E6/uL} (Normal) Range: 3.77-5.28 WBC 6.6 {x10E3/uL} (Normal) Range: 3.4-10.8 :30 Metabolic Panel, Comments: PATIENT WAS FASTINGPERFORMED BY: [employer] Vceoyf2648 [facility] [id number] Information: 791880,M58744 Comprehensive (48478) ALT (SGPT) 14 [iU]/L (Normal) Range: 0-32 [...] mg/dL (Normal) Range: 65-99 :30 Lipid Panel (06677) Comments: PATIENT WAS FASTINGPERFORMED BY: REM [facility]EDorothea Dix [facility] [id number] LDL/HDL Ratio 3.6 {ratio_units} (Abnormal) Range: 0.0-3.2 [...] (HGB A1C) Comments: PATIENT WAS FASTINGPERFORMED BY: DataKraftAtrium Health Union [id number]; apt. 4-4 (56644) Hemoglobin A1c 5.8 % (Abnormal) Range: 4.8-5.6 Comments: . Pre-diabetes: 5.7 - 6.4 Diabetes: >6.4 Glycemic control for adults with diabetes: <7.0 11-Oku-524564:59 Urinalysis, Office (13129) UA - LEUKOCYTE ESTERASE Negative (Normal) UA - NITRITE Positive (Normal) URINE UROBILINGN FRANKO TIMED 2 mg/dL (Normal) UA - PROTEIN Negative mg/dL (Normal) UA - PH 5 (Abnormal) UA - BLOOD Negative (Normal) UA - SPECIFIC GRAVITY 1.020 (Normal) UA - KETONES Negative mg/dL (Normal) UA - BILIRUBIN Negative (Normal) UA - GLUCOSE Negative (Normal) 23-Iry-77374:00 Anticardiolip Ab, IgA/G/M, Comments: PATIENT WAS FASTINGPERFORMED BY: CB [facility] Ljirtj2963 [facility] [id number] BY: TG [facility] FMV6273 [facility] [place] [id number] Qn Anticardiolipin Ab,IgA,Qn <9 {APL_U/mL} (Normal) Range: [...] Positive: >20 - 80 High Positive: >80 31-Xsw-511632:37 Basic Metabolic Profile (BMP) Comments: Serial Specimen #1, #2 or #3? 1'TROP' Serial specimen #1, #2, #3, or #4: 1Test performed at:[facility] [address] [place], [place] [address] GAP 7 (Normal) Range: 5-15 CO2 26.0 [...] Comments: Please note revised CREATININE reference range siprwegrv72/22/2015. BUN 16 mg/dL (Normal) Range: 7-18 GLU 134 mg/dL (Abnormal) Range: 70-110 Comments: Fasting Glucose result greater than or equal to 126 mg/dLsuggests DIABETES MELLITUS per A.D.A. criteria. 02-Rwz-322030:37 CBC W/Diff, Automated Comments: Test performed at:[facility] [address] [place] [address] Absolute Lymph 2.35 {X10_3/ul} (Normal) Range: 0.83-4.51 [...] 4.2-5.4 WBC 7.4 K/mm3 (Normal) Range: 4.4-11.0 23-Wrg-539588:37 CK-MB Quantitative and Index Comments: Serial Specimen #1, #2 or #3? 1'TROP' Serial specimen #1, #2, #3, or #4: 1Test performed at:[facility] [address] [place] [address] CPKMB 0.8 ng/mL (Normal) Range: 0.0-5.0 Comments: CK-MB and RI Interpretation MB Relative Index Non-AMI <or= 5 NA Indeterminate > 5 <or= 4 AMI > 5 > 4 CPK TOTAL 80 U/L (Normal) Range: 26-192 44-Ucz-264380:37 Troponin-I Comments: Serial Specimen #1, #2 or #3? 1'TROP' Serial specimen #1, #2, #3, or #4: 1Test performed at:[facility] [address] [place] [address] TROPONIN-I < 0.02 ng/mL (Normal) Comments: TROPONIN-I EXPECTED VALUES <0.05 NEGATIVE 0.06 - 0.59 AT RISK OF PR > OR = 0.60 SUGGEST PR 49-Tfw-693767:59 D-Dimer (83298) Comments: PATIENT NOT FASTINGPERFORMED BY: BN [facility] [address] [id number] BY: CB [facility] Ixhihv6354 [facility] [id number] D-Dimer 0.59 {mg/L_FEU} (Abnormal) Range: 0.00-0.49 Comments: In conjunction with a non-high clinical probability assessment, anormal (<0.50 mg/L FEU) result excludes deep vein thrombosis (DVT)and pulmonary embolism (PE) with high sensitivity. :00 LIPID PANEL (34077) Comments: PATIENT WAS FASTINGPERFORMED BY: SplingUniversity of New Mexico HospitalsWwtjgh4275 [facility] [id number] BY: TG Spling NMU5051 [facility] [place] [id number] LDL/HDL Ratio 3.1 {ratio_units} (Normal) Range: 0.0-3.2 [...] Cholesterol, Total 177 mg/dL (Normal) Range: 100-199 16-Hrz-943995:59 Protein S Profile Comments: PATIENT NOT FASTINGPERFORMED BY: Spling[address] [id number] BY: Spling Nfdxqg9066 [facility] [id number] Inf ormation: [id number] (10804) Protein S-Functional 119 % (Normal) Range: 60-145 Protein S, Free 108 % (Normal) Range: 56-124 Protein S, Total 137 % (Normal) Range: 58-150 11-Azb-727329:59 Protein C Profile Comments: PATIENT NOT FASTINGPERFORMED BY: Spling [address] [id number] BY: SplingUniversity of New Mexico HospitalsWgnfje0327 [facility] [id number] (22507) Protein C-Functional 120 % (Normal) Range: 74-151 Protein C Antigen 104 % (Normal) Range: 70-140 26-Oui-58335:00 Homocysteine, Plasma Comments: PATIENT WAS FASTINGPERFORMED BY: [employer] Bmsqhc6129 [address] [facility]Dor[facility] [id number] BY: Spling VLL1809 [facility] [id number] (80764) Homocyst(e)ine, Plasma 11.2 umol/L (Normal) Range: 0.0-15.0 47-Fpo-598122:59 ANTITHROMBIN III ACTIVTY Comments: PATIENT NOT FASTINGPERFORMED BY: Spling[address] [id number] BY: YouWeb6370 [facility] [id number] (61743) Antithrombin Antigen 94 % (Normal) Range: 75-130 Antithrombin Activity 108 % (Normal) Range: 75-135 :59 CLOTTING FACTOR II Comments: PATIENT NOT FASTINGPERFORMED BY: Splingrp [address] [id number] BY: Stratus5lin6370 [facility] [id number] (21601) Factor II Activity 113 % (Normal) Range: 75-130 :00 Factor V Leiden (47034) Comments: PATIENT WAS FASTINGPERFORMED BY: [employer] LabWombat Security Technologiesrp Cpsywl2186 [facility] [id number] BY: [facility] ERN0662 [facility] [place] [id number] Factor V Leiden FVNEG3 (Normal) Comments: Result: [...] in the workup for venous thrombosis include [id number] mutation in the factor II (prothrombin) gene,protein S and C deficiency, and antithromb in deficiencies.Anticardiolipin antibody and lupus anticoagulant analysismay be appropriate for certain patients, as well ashomocysteine levels. .Contact your local [facility] for information on how to orderadditional testing if desired. .Genetic counselors are available for health care* providers to discuss results at [phone] ([phone]). .Methodology:DNA analysis of the Factor V gene was performed by allele-specific PCR followed by gel electrophoresis. The diagnosticsensitivity and specificity is >99% for both. Molecular-based testing is highly accurate, but as in any laboratorytest, diagnostic errors may occur. All test results must becombined with clinical information for the most accurateinterpretation. .References:Sly Montez (1996). Clin Lab Med 16: 169-186. .Droa Carrera, PhDOlimpia Wilson, PhDAspen Orta, PhDShiela Chavez, PhDTara Jhaveri, PhDNgozi Cardozo, PhD . 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 Compound heterozygosity for the C776Qbfk O6969F variants is unlikely to be of clinical [...] discuss these results with healthcare providers at [phone] [place], [place]. .Methylenetetrahydrofolate reductase (MTHFR) is a ke y enzyme in thefolate pathway and is responsible for the metabolism of homocysteine.There are two common variants in the MTHFR gene, c.655C>T(p.Pjv147Adh), referred to as C677T, and c.1286A>C (p.G kt047Jyn),referred to as S4602Y. Individuals homozygous for C677T (two copiesof the variant), have decreased activity of the MTHFR enzyme and apredisposition to hyperhomocysteinemia, particularly when d eficient infolate. Hyperhomocysteinemia is a risk factor for venous thrombosisand coronary artery disease and is associated with an increased riskof open neural tube defects. The C677T variant reilly s notindependently increase risk of these conditions in the absence ofhyperhomocysteinemia. The K0892H variant is not associated withelevated homocysteine levels unless a C677T variant is also present;h owever, the clinical significance of heterozygosity for both B831Eabf J3122D is controversial. Population data suggest that these twovariants are not present on the same chromosome, but rare exceptionsh ave been reported of triple variant MTHFR genotypes (ie. homozygousfor one variant and heterozygous for the other). Homozygosity ovvO511F has an estimated frequency of 10% to [...] P et al. Felisa Giana 1995; 10(1):111- 113.Shraddha SE et al. Giana Med 2013; 15(2):153-156.Lo carol[place]wood C et al. Obstet Gynecol 2011; 118(3):730-740.Jakob B et al. Eur J Epidemiol 2013; 28(8):621-647. .Dora Carrera, PhDSteffen Wilson, PhDAspen Orta, PhDShiela Chavez, MS, PhDTara Jhaveri, PhDNgozi Cardozo, PhD :52 HgA1C , Office (25625) HgA1C , Office 5.8 % (Normal) Range: 4.6 - 7.1 :31 CBC With Differential/Platelet Comments: PATIENT WAS FASTINGPERFORMED BY: [facility]Co[facility] CenterUyxyqi0913 [facility] [id number] Information: [id number] Immature Grans (Abs) 0.0 {x10E3/uL} (Normal) Range: [...] Panel (14) Comments: PATIENT WAS FASTINGPERFORMED BY: [facility] Yigonc0448 [facility] [id number] ALT (SGPT) 18 [iU]/L (Normal) Range: 0-32 [...] Glucose, Serum 103 mg/dL (Abnormal) Range: 65-99 70-Jlc-956429:04 Urinalysis, Office (33499) UA - PH 6.0 (Normal) UA - LEUKOCYTE ESTERASE Negative (Normal) UA - NITRITE Negative (Normal) URINE UROBILINGN FRANKO TIMED 2 mg/dL (Normal) UA - PROTEIN Negative mg/dL (Normal) UA - BLOOD Negative (Normal) UA - SPECIFIC GRAVITY 1.025 (Normal) UA - KETONES Negative mg/dL (Normal) UA - BILIRUBIN Negative (Normal) UA - GLUCOSE Negative (Normal) 34-Qcz-85694:51 POTASSIUM SERUM (23226) Comments: today; PATIENT NOT FASTINGPERFORMED BY: [facility] Yqseas8945 [facility] [id number] Information: [id number] Potassium, Serum 3.8 mmol/L (Normal) Range: 3.5-5.2 8-Gau-813944:30 Basic Metabolic Profile (BMP) Comments: 'TROP' Serial specimen #1, #2, #3, or #4: 1'CKMB' Serial Specimen #1, #2 or #3? 1Test performed at:[facility] Zvbukxzjjx[address] [place] [address] GAP 3 (Abnormal) Range: 5-15 [...] 7-18 GLU 89 mg/dL (Normal) Range: 70-110 1-Sxc-402767:30 CBC W/Diff, Automated Comments: Test performed at:[facility] Opjerbvqfc2327 [facility] [place] [address] Absolute Lymph 2.01 {X10_3/ul} (Normal) [...] 4.2-5.4 WBC 6.0 K/mm3 (Normal) Range: 4.4-11.0 9-Ndy-571271:30 CK-MB Quantitative and Index Comments: 'TROP' Serial specimen #1, #2, #3, or #4: 1'CKMB' Serial Specimen #1, #2 or #3? 1Test performed at:[facility] Zxuoeyrulr9279 [facility] [place] [address] CPKMB 0.8 ng/mL (Normal) Range: 0.0-5.0 Comments: CK-MB and RI Interpretation MB Relative Index Non-AMI <or= 5 NA Indeterminate > 5 <or= 4 AMI > 5 > 4 CPK TOTAL 64 U/L (Normal) Range: 26-192 :30 D-Dimer Quantitative (DVT/PE) Comments: Test performed at:[facility] Uwfmftlntz3670 [facility] [place], [place] [address] D-DIMER QUANT 1.86 {FEU/ug/m} (Abnormal) Range: 0.27-0.49 Comments: D-Dimer ELEVATED (>0.49): Additional studies and clinicalassessments are indicated to conclude diagnosis of:Deep Vein Thrombosis (DVT) or Pulmonary Embolism (PE)CRITICAL VALUE REPEATED AND VERIFIED. CALLED TO SHRAVAN.07/23/14 1104 Ricci Delgado.RESULTS READ BACK BY SAME. :30 Troponin-I Comments: 'TROP' Serial specimen #1, #2, #3, or #4: 1'CKMB' Serial Specimen #1, #2 or #3? 1Test performed at:[facility] Eadzkckgus9271 [facility] [place], [place] [address] TROPONIN-I < 0.02 ng/mL (Normal) Comments: TROPONIN-I EXPECTED VALUES <0.05 NEGATIVE 0.06 - 0.59 AT RISK OF PR > OR = 0.60 SUGGEST PR :18 HgA1C , Office (01472) HgA1C , Office 5.7 % (Normal) Range: 4.6 - 7.1 :18 Blood Glucose , Office (95708) Blood Glucose , Office 106 (Normal) 39-Nkk-563384:20 CBCD ALC 2.30 {X10_3/ul} (Normal) Range: 0.83-4.51 [...] 4.2-5.4 WBC 5.5 K/mm3 (Normal) Range: 4.4-11.0 62-Wtn-678012:20 MRSA+SAID SCRN See Note (Normal) Comments: S. AUREUS S. aureus NegativeMRSA MRSA Negative 35-Zdv-028640:20 UAC Comments: ORDER URINE CULTUREIF POSITIVE NITRITE [...] Yellow (Normal) :54 Blood Glucose , Office (07103) Blood Glucose , Office 123 (Normal) Comments: Not Fasting :54 HgA1C , Office (94256) HgA1C , Office 6.0 % (Normal) Range: 4.6 - 7.1 :31 POTASSIUM SERUM (49040) Comments: patient having drawn in 2 wks; PATIENT NOT FASTINGPERFORMED BY: [facility]6370 [facility] [id number] Information: [id number] Potassium, Serum 4.0 mmol/L (Normal) Range: 3.5-5.2 :20 Microscopic Examination Comments: PATIENT WAS FASTINGPERFORMED BY: [facility]Eng[facility] Medical CenterTgnexx5004 [facility] [id number] Bacteria Few (Normal) Mucus Threads Present (Normal) [...] ABS NEGATIVE (Normal) BT A POSITIVE (Normal) 31-Ihx-04560:20 URINALYSIS, W/ MICRO (00379) Comments: PATIENT WAS FASTINGPERFORMED BY: [facility]CoEngle[facility] CenterUuhyni8354 [facility] [id number] Microscopic Examination See below: (Normal) Comments: Microscopic was indicated and was performed. Nitrite, Urine Negative (Normal) Urobilinogen,Semi-Qn 1.0 mg/dL (Normal) Range: 0.0-1.9 Bilirubin Negative (Normal) Occult Blood Negative (Normal) Ketones Negative (Normal) Glucose Negative (Normal) Protein Trace (Normal) WBC Esterase 2+ (Abnormal) Appearance Clear (Normal) Urine-Color Yellow (Normal) pH 6.5 (Normal) Range: 5.0-7.5 Specific [place] 1.023 (Normal) Range: 1.005-1.030 :20 METABOLIC PANEL, COMPREHENSIVE Comments: PATIENT WAS FASTINGPERFORMED BY: [facility] Ydsydw3032 [facility] [id number] (77282) ALT (SGPT) 20 [iU]/L (Normal) Range: 0-32 [...] mg/dL (Abnormal) Range: 65-99 :20 LIPID PANEL (92831) Comments: PATIENT WAS FASTINGPERFORMED BY: [facility]plingEnglewood [facility] CenterTeydvp0358 [facility] [id number] LDL/HDL Ratio 3.8 {ratio_units} (Abnormal) Range: 0.0-3.2 [...] MANUAL DIFF Comments: PATIENT WAS FASTINGPERFORMED BY: [facility]6370 [facility] [id number] Information: [id number] (42067) Immature Grans (Abs) 0.0 {x10E3/uL} (Normal) Range: [...] (Normal) Range: 3.4-10.8 :09 HgA1C , Office (46733) HgA1C , Office 5.8 % (Normal) Range: 4.6 - 7.1 :09 Blood Glucose , Office (44529) Blood Glucose , Office 129 (Normal) Comments: [...] (Normal) Range: 70-110 :17 HgA1C , Office (35534) HgA1C , Office 5.9 % (Normal) Range: 4.6 - 7.1 :17 Blood Glucose , Office (96038) Blood Glucose , Office 107 (Normal) :15 PROL 10.4 ng/mL (Normal) Comments: NORMAL REFERENCE RANGESFEMALENON- 2.2 - 30.3 ng/mL 8.1 - 347.6 ng/mLPOST- MENOPAUSAL 0.7 - 31.5 ng/mLMALE 2.5 - 17.4 ng/mLNEW TEST METHO D & REFERENCE RANGES NOVEMBER 09, 2011; ADDENDA: has f/u on 06/08/13, will review then 40-Jae-43729:28 BILAT SCRN DIGITAL & CAD Radiology Report [...] [facility] within [facility] days. Approximately 10% of breast cancers are not detected by mammography. Anormal mammogram should not delay biopsy of a clinically suspiciousabnormality. Signed:Payton DuttaMarch 15, 2013 at 7:58:55 AM [id number] Signed GP/GP If you are the referring physician and would like to consult with theradiologist who provided this interpretation, please co ntact Unique Yusuf at [phone]. If this radiologist is unavailable, youwill be directed to another radiologist to assist. If you are a patient with a question regarding this report, socorro rodgers referring physician directly. Professional Interpretation Provided By: [...] 03/15/13 0837 Sign by: Aaron Salgado MD 21-Gyv-27227:25 Blood Glucose , Office (64218) Blood Glucose , Office 134 (Normal) :25 HgA1C , Office (14632) HgA1C , Office 5.8 % (Normal) Range: 4.6 - 7.1 7-Rgk-422153:22 PELVIC (NON ) Radiology Report See Note [...] Salgado M.D.January 23, 2013 at 2:31:38 PM [id number] Signed GP/GP If you are the referring physician and would like to consult with theradiologist who provided this interpretati on, please contact Unique Yusuf at [phone]. If this radiologist is unavailable, youwill be directed to another radiologist to assist. If you are a patient with a question regarding this report, pleasecontactyour referring physician directly. Professional Interpretation Provided By: [employer], Phone , These documents contain legally protected [...] size of the right kidney. The right cqcwdedfesdlui91.4 cm. Ambika l renal cortex. The right cortex measures 1.0 cm. Thereisa 1.1 cm x 1.0 cm x 0.9 cm cyst in the inferior pole. There is no righthydronephrosis. Left Kidney: Normal size of the left kidney. The left kidney zhuxnagn77.5cm. Normal renal cortex. The left cortex measures 1.9 cm. There is nodemonstrated renal mass or cyst. There is no left hydronephrosis. Aorta: Unremarkable. I.V.C.: The IVC is pa tent. There is no ascites. IMPRESSION:Fatty infiltration of the liver. The patient is status postcholecystectomy. Signed:Aaron Salgado M.D.January 23, 2013 at 2:2 8:11 PM [id number] Signed GP/GP If you are the referring physician and would like to consult with theradiologist who provided this interpretation, please contact Payton Yusuf at [phone]. If this radiologist is unavailable, youwill be directed to another radiologist to assist. If you are a patient with a question regarding this report, pleasecontactyour referring phys ician directly. Professional Interpretation Provided By: [employer], Phone , These documents contain legally protected [...] Salgado M.D.January 23, 2013 at 2:31:38 PM [id number] Signed GP/GP If you are the referring physician and would like to consult with theradiologist who provided this interpretati on, please contact Unique Yusuf at [phone]. If this radiologist is unavailable, youwill be directed to another radiologist to assist. If you are a patient with a question regarding this report, pleasecontactyour referring physician directly. Professional Interpretation Provided By: [employer], Phone , These documents contain legally protected [...] 1431 by Gali Salgado MDranscribed on 01/24/13 1042 by ITS IMPORTSign by Damian FLYNN,Aaron on 01/24/13 1043 Sign by: Aaron Salgado MD 96-Fal-580185:11 CBC, Platelets & Auto Comments: PATIENT NOT FASTINGPERFORMED BY: [facility]CoEng[facility] CenterCprwuu5659 [facility] [id number] Information: [id number] Diff (81308) Immature Grans (Abs) 0.0 {x10E3/uL} (Normal) Range: [...] (Normal) Range: 70-110 :33 HgA1C , Office (34334) HgA1C , Office 5.8 % (Normal) Range: 4.6 - 7.1 :53 METABOLIC PANEL, COMPREHENSIVE Comments: PATIENT WAS FASTINGPERFORMED BY: [facility]CoEng[facility] Medical CenterFdaxnv6239 [facility] [id number] (89141) ALT (SGPT) 19 [iU]/L (Normal) Range: 0-32 [...] Glucose, Serum 88 mg/dL (Normal) Range: 65-99 79-Bdv-119046:53 CBC WITH MANUAL DIFF Comments: PATIENT WAS FASTINGPERFORMED BY: [facility]6370 [facility] [id number] Information: [id number] (39347) Immature Grans (Abs) 0.0 {x10E3/uL} (Normal) Range: [...] 3.77-5.28 WBC 7.5 {x10E3/uL} (Normal) Range: 4.0-10.5 53-Whz-453556:53 LIPID PANEL (62535) Comments: PATIENT WAS FASTINGPERFORMED BY: [facility]Co[facility] CenterAyaxaj2295 [facility] [id number] LDL/HDL Ratio 3.3 {ratio_units} (Abnormal) Range: 0.0-3.2 LDL Cholesterol Calc 136 mg/dL (Abnormal) Range: 0-99 HDL Cholesterol 41 mg/dL (Normal) Comments: According to ATP-III Guidelines, HDL-C >59 mg/dL is considered anegative risk factor for CHD. VLDL Cholesterol José Luis 45 mg/dL (Abnormal) Range: 5-40 Triglycerides 226 mg/dL (Abnormal) Range: 0-149 Cholesterol, Total 222 mg/dL (Abnormal) Range: 100-199 56-Tvz-00506:51 BILAT SCRN DIGITAL & CAD Radiology Report [...] Salgado M.D.January 18, 2012 at 10:04:04 AM [id number] Signed GP/GP If you are the referring physician and would like to consult with theradiologist who pro vided this interpretation, please contact Unique Yusuf at [phone]. If this radiologist is unavailable, youwill be directed to another radiologist to assist. If you are a patient with a q uestion regarding this report, pleasecontactyour referring physician directly. Professional Interpretation Provided By: [employer], Phone , Dictated on 01/18/12 0759 by Laurita Salgado MDscribed on 01/18/12 1010 by ITS IMPORTSign by Aaron Salgado MD on 01/18/12 1011 Sign by: Aaron Salgado MD 0-Lrx-480737:43 MICROALBUMIN: CREATININE RATIO Comments: PATIENT WAS FASTINGPERFORMED BY: [facility]Co[facility] CenterWymoxe1234 [facility] [id number] (29362) AND (63567) Microalb/Creat Ratio 1.4 {mg/g_creat} (Normal) Range: 0.0-30.0 Microalbumin, Urine 2.3 ug/mL (Normal) Range: 0.0-17.0 Creatinine, Urine 167.9 mg/dL (Normal) Range: 15.0-278.0 :43 METABOLIC PANEL, COMPREHENSIVE Comments: PATIENT WAS FASTINGPERFORMED BY: [employer]70 [facility] [id number] (05209) ALT (SGPT) 24 [iU]/L (Normal) Range: 0-40 [...] Glucose, Serum 95 mg/dL (Normal) Range: 65-99 7-Zek-247522:43 LIPID PANEL (18699) Comments: PATIENT WAS FASTINGPERFORMED BY: [employer]6370 [facility] [id number] LDL/HDL Ratio 3.2 {ratio_units} (Normal) Range: 0.0-3.2 LDL Cholesterol Calc 115 mg/dL (Abnormal) Range: 0-99 VLDL Cholesterol José Luis 29 mg/dL (Normal) Range: 5-40 HDL Cholesterol 36 mg/dL (Abnormal) Comments: According to ATP-III Guidelines, HDL-C >59 mg/dL is considered anegative risk factor for CHD. Triglycerides 146 mg/dL (Normal) Range: 0-149 Cholesterol, Total 180 mg/dL (Normal) Range: 100-199 8-Ggt-683366:43 CBC WITH MANUAL DIFF Comments: PATIENT WAS FASTINGPERFORMED BY: [facility]Co[facility] CenterAgwshp0365 [facility] [id number] Information: [id number] (02173) Immature Grans (Abs) 0.0 {x10E3/uL} (Normal) Range: [...] population. WBC 5.9 {x10E3/uL} (Normal) Range: 4.0-10.5 75-Yst-466825:18 HgA1C , Office (01817) HgA1C , Office 6.1 % (Normal) Range: 4.6 - 7.1 03-Irt-871057:18 Blood Glucose , Office (11645) Blood Glucose , Office 125 (Normal) 28-Ury-992195:00 Thin prep Pap Comments: Source.............Cervical;EndocervicalNo. of containers..01 CYTYC Thin Prep VialPATIENT NOT FASTINGPERFORMED BY: [address] [id number] Information: [id number] (76550) Note: PAPSMR (Normal) Comments: The Pap smear [...] ; Routine gynecolog ical examina Imelda Batres [employer] (ASCP) 63-Hmt-10955:00 BILAT SCRN DIGITAL & CAD Radiology Report [...] clinically suspiciousabnormality. Dictated on 11/03/10 0608 by Gali Salgado MDranscribed on 11/04/10 0619 by ITS IMPORTSign by Aaron Salgado MD on 11/04/10 0620 Sign by: __ Aaron Salgado MD 8-Nrn-201348:24 CBC & PLATELETS (AUTO) Comments: PATIENT NOT FASTINGPERFORMED BY: [facility] Fgqpcf4686 [facility] [id number] Information: [id number]; appt 11/28/10 (70437) MCH 31.6 pg (Normal) Range: 27.0-34.0 MCHC [...] 27 45 63 >63Performed at: S[facility] [employer] [address] [place], [place] [address] Director: Stefano Mace PhD, Phone: [phone] HDL SIZE <TEST NOT PERFORMED> (Normal) INSULIN [...] TOT 209 mg/dL (Abnormal) LIPIDS . (Normal) 9-Ldn-202205:12 CULT, DP WOUND Comments: COMMENTS: CULTURE, SENSITIVITY,AREOBES, [...] STRIMETHOPRIM/SULFAMETHOXAZ $ <=10 SVANCOMYCIN $ 1 S 0-Trw-855053:10 CBC Comments: COMMENTS: AC ROOM 6 HCT [...] 11.6-14.6 WBC 7.6 K/mm3 (Normal) Range: 4.4-11.0 00-Loh-16412:40 CULTURE, NOSE GRAM STAIN See Note (Normal) [...] 1 S :56 Blood Glucose , Office (50811) Blood Glucose , Office 102 (Normal) :56 HgA1C , Office (60887) HgA1C , Office 6.1 % (Normal) Range: 4.6 - 7.1 :49 MICROALBUMIN: CREATININE Comments: PATIENT WAS FASTINGPERFORMED BY: [facility]e [employer] Wzv5692 [facility] [id number] BY: [facility]6370 [facility] [id number] RATIO (62719) AND (54458) Microalb/Creat Ratio 2.3 {mg/g_creat} (Normal) Range: 0.0-30.0 Microalbumin, Urine 3.4 ug/mL (Normal) Range: 0.0-17.0 Creatinine, Urine 150.2 mg/dL (Normal) Range: 15.0-278.0 :49 LIPOPROTEIN, BLD, BY NMR Comments: PATIENT WAS FASTINGPERFORMED BY: [facility]e [employer] Zcy8172 Tomás Boyd [place] [id number] BY: JERMAINE [facility] Nywdal6906 Katherine [facility] [id number] Information: ADD [id number] AND DRAW FEE 99 8068 (72000) LP-IR 83 Comments: The LP-IR Score combines [...] (Abnormal) Choleste 220 mg/dL galina, (Abnormal) Total 57-Yhd-85203:49 METABOLIC PANEL, Comments: PATIENT WAS FASTINGPERFORMED BY: [facility] [employer] Uhr6428 Tomás [facility] [id number] BY: JERMAINE SNSplus6370 [facility] [id number] COMPREHENSIVE (61884) ALT (SGPT) 22 [iU]/L (Normal) Range: 0-40 [...] Glucose, Serum 107 mg/dL (Abnormal) Range: 65-99 39-Agb-59665:49 LIPID PANEL (45373) Comments: PATIENT WAS FASTINGPERFORMED BY: Fede [employer] Ash8192 Tomás [facility] [id number] BY: JERMAINE SNSplus6370 [facility] [id number] LDL Cholesterol Calc 135 mg/dL (Abnormal) Range: 0-99 LDL/HDL Ratio 4.1 {ratio_units} (Abnormal) Range: 0.0-3.2 VLDL Cholesterol José Luis 52 mg/dL (Abnormal) Range: 5-40 HDL Cholesterol 33 mg/dL (Abnormal) Comments: According to ATP-III Guidelines, HDL-C >59 mg/dL is considered anegative risk factor for CHD. Triglycerides 261 mg/dL (Abnormal) Range: 0-149 Cholesterol, Total 220 mg/dL (Abnormal) Range: 100-199 89-Bss-60206:49 CBC WITH MANUAL DIFF Comments: PATIENT WAS FASTINGPERFORMED BY: Fede [employer] Pxa4623 Mehama [facility] [id number] BY: JERMAINE [facility] Dxxzeh5889 [facility] [id number] (23552) Baso (Absolute) 0.1 {x10E3/uL} (Normal) Range: 0.0-0.2 [...] 3.80-5.10 WBC 6.7 {x10E3/uL} (Normal) Range: 4.0-10.5 0-Lqa-021472:35 MARYJANE CULTURE-OTHER (53155) Comments: PATIENT NOT FASTINGPERFORMED BY: [facility]6370 [facility] [id number] Information: SRC:THRT [id number] Result 1 RRF (Normal) Comments: Routine respiratory bin Upper Respiratory Culture Final report (Normal) 23-Jul-20098:07 Rapid Strep Test, Office (64331) Rapid Strep Test, Negative (Normal) Office :2 Potassium, Serum 3.8 mmol/L (Normal) Comments: PATIENT WAS FASTINGPERFORMED BY: [facility]6370 [facility] [id number] Range: 3.5-5.2 68-Jkz-625708:00 BILAT SCRN DIGITAL & CAD Radiology Report See Note (Normal) Comments: Exam Number: [id number] MAMMOGRAM, BILATERAL SCREENING DIGITAL AND CAD HISTORYRoutine [...] werealso examined with computer-aided detection s oftware ([employer].). Reported By: KENNA SWEET M.D. 27-Feb-20098:24 Lipid Panel (79419) Comments: PATIENT WAS FASTINGClinical Information: ADD 102450, [id number] PERFORMED BY: [place] 4304870 [facility] [id number] Cholesterol, Total 224 mg/dL (Abnormal) Range: 100-199 HDL Cholesterol 31 mg/dL (Abnormal) Comments: According to ATP-III Guidelines, HDL-C >59 mg/dL is considered anegative risk factor for CHD. LDL Cholesterol Calc 122 mg/dL (Abnormal) Range: 0-99 LDL/HDL Ratio 3.9 {ratio_units} (Abnormal) Range: 0.0-3.2 Triglycerides 354 mg/dL (Abnormal) Range: 0-149 VLDL Cholesterol José Luis 71 mg/dL (Abnormal) Range: 5-40 13-Qyv-623341:16 JESUS ALBERTO (ANTINUCLEAR ANTIBODY) Comments: PATIENT NOT FASTINGPERFORMED BY: [facility] [id number] (10756) Antinuclear Antibodies Direct Negative (Normal) 92-Aya-279382:16 C-REACTIVE PROTEIN (97659) Comments: PATIENT NOT FASTINGPERFORMED BY: [facility] [place] 1133070 [facility] [id number] C-Reactive Protein, Quant 8.0 mg/L (Abnormal) Range: 0.0-4.9 75-Wfm-059899:16 CBC (AUTO) (70422) Comments: PATIENT NOT FASTINGPERFORMED BY: [employer] [id number] Hematocrit 42.4 % (Normal) Range: 34.0-44.0 Hemoglobin 14.4 g/dL (Normal) Range: 11.5-15.0 MCH 31.9 pg (Normal) Range: 27.0-34.0 MCHC 34.0 g/dL (Normal) Range: 32.0-36.0 MCV 94 fL (Normal) Range: 80-98 Platelets 160 {x10E3/uL} (Normal) Range: 140-415 RBC 4.52 {x10E6/uL} (Normal) Range: 3.80-5.10 RDW 14.1 % (Normal) Range: 11.7-15.0 WBC 7.6 {x10E3/uL} (Normal) Range: 4.0-10.5 27-Pil-203343:16 Folate (89069) Comments: PATIENT NOT FASTINGPERFORMED BY: [facility]6370 [facility] [id number] Folate (Folic Acid), Serum 17.4 ng/mL (Normal) Comments: Indeterminate: 3.4 - 5.4 Deficient: <3.4 10-Mwq-176872:16 METABOLIC PANEL, COMPREHENSIVE Comments: PATIENT NOT FASTINGPERFORMED BY: [facility]6370 [facility] [id number] (39007) A/G Ratio 1.2 (Normal) Range: 1.1-2.5 Albumin, [...] Sodium, Serum 142 mmol/L (Normal) Range: 135-145 45-Rys-633426:16 RHEUMATOID FACTOR-QUANT (79709) Comments: PATIENT NOT FASTINGPERFORMED BY: [facility] 1133070 [facility] [id number] RA Latex Turbid. 9.3 {IU/mL} (Normal) Range: 0.0-13.9 11-Dak-745935:16 SED RATE ERYTHROCYTE (24465) Comments: PATIENT NOT FASTINGPERFORMED BY: [place] 1133070 [facility] [id number] Sedimentation Rate-Westergren 21 mm/h (Normal) Range: 0-30 03-Qwe-481607:16 TSH (58590) Comments: PATIENT NOT FASTINGPERFORMED BY: [place] 1133070 [facility] [id number] TSH 2.690 {uIU/mL} (Normal) Range: 0.450-4.500 10-Bsk-861138:16 VITAMIN B-12 (CYANOCOBALAMIN) Comments: PATIENT NOT FASTINGPERFORMED BY: [place] 1133070 [facility] [id number] (67951) Vitamin B12 348 pg/mL (Normal) Range: 211-911 23-Jan-20099:35 Lipid Panel (60705) Comments: PATIENT WAS FASTINGClinical Information: ADD 107169, [id number] PERFORMED BY: [facility]6370 [facility] [id number] Cholesterol, Total 208 mg/dL (Abnormal) Range: 100-199 HDL Cholesterol 32 mg/dL (Abnormal) Comments: According to ATP-III Guidelines, HDL-C >59 mg/dL is considered anegative risk factor for CHD. LDL Cholesterol Calc 124 mg/dL (Abnormal) Range: 0-99 LDL/HDL Ratio 3.9 {ratio_units} (Abnormal) Range: 0.0-3.2 Triglycerides 261 mg/dL (Abnormal) Range: 0-149 VLDL Cholesterol José Luis 52 mg/dL (Abnormal) Range: 5-40 :47 HgA1C , Office (10930) HgA1C , Office 5.8 % (Normal) Range: 4.6 - 7.1 :47 Blood Glucose , Office (87128) Blood Glucose , Office 128 (Normal) :43 Urinalysis, Office (66094) UA - LEUKOCYTE ESTERASE Trace (Normal) UA [...] Indication: Acute sinusitis Planned Observations LIPID PANEL (71014)Indication: Mixed hyperlipidemia On: 1-Gbn-281511:45 Request Platelet 55258 (citrate, nonclumping tube)Indication: Thrombocytopenia, unspecified On: 22-Jul-20178:19 Request Metabolic Panel, Comprehensive ([id number])Indication: Benign essential hypertension On: 56-Xcs-353552:46 Request MICROALBUMIN: CREATININE RATIO ([id number]) AND ([id number])Indication: Benign essential hypertension On: 79-Rze-997517:45 Request URINALYSIS ([id number])Indication: Benign essential hypertension On: :45 Request CBC WITH MANUAL DIFF ([id number])Indication: Benign essential hypertension On: 12-Mkx-044932:45 Request Platelet Count, Citrated (87768)Indication: Thrombocytopenia, unspecified On: :11 Request LIPOPROTEIN, BLD, BY NMR ([id number])Indication: Mixed hyperlipidemia On: :07 Request Lipase (89090)Indication: Abdominal pain On: :24 Request Comments: add to hospital labs. Amylase (65096)Indication: Abdominal pain On: :24 Request Comments: add to hospital labs. Antiphospholipid atb (75020)Indication: Pulmonary emboli On: : Request ANTICOAG ANTTHROMB III & ASSAY ([id number])Indication: Pulmonary emboli On: : Request METABOLIC PANEL, COMPREHENSIVE (66890)Indication: Benign essential hypertension On: :37 Request Comments: in three months (approximately) CBC with auto diff (00943)Indication: Benign essential hypertension On: :37 Request Comments: in three months (approximately) Troponin I (25186)Indication: Chest pain at rest On: : Request CPK MB FRACTION (56411)Indication: Chest pain at rest On: : Request CREATINE KINASE TOTAL (19468)Indication: Chest pain at rest On: : Request D-Dimer (54534)Indication: Chest pain at rest On: 7-Nla-784186:00 Request Metabolic Panel, Basic (06584)Indication: Chest pain at rest On: :58 Request CBC (Auto) (53940)Indication: Chest pain at rest On: :58 Request URINALYSIS, W/ MICRO ([id number])Indication: Benign essential hypertension On: :29 Request METABOLIC PANEL, COMPREHENSIVE (10787)Indication: Benign essential hypertension On: :29 Request LIPID PANEL ([id number])Indication: Benign essential hypertension On: :29 Request CBC W/AUTO DIFF WBC ([id number])Indication: Benign essential hypertension On: :29 Request URINALYSIS ([id number])Indication: UTI (lower urinary tract infection) On: :49 Request LIPID PANEL ([id number])Indication: Benign essential hypertension On: : Request CBC WITH MANUAL DIFF (74011)Indication: Thrombocytopenia, unspecified On: :27 Request METABOLIC PANEL, COMPREHENSIVE ([id number])Indication: Benign essential hypertension On: :27 Request TSH (THYROID STIMULATING HORMONE) ([id number])Indication: Post-menopausal bleeding On: :37 Request PROLACTIN ([id number])Indication: Post-menopausal bleeding On: 43-Qaz-85987:37 Request HEPATIC FUNCTION PANEL (86958)Indication: Hyperglyceridemia On: :05 Request LIPOPROTEIN, BLD, BY NMR ([id number])Indication: Hyperglyceridemia On: :04 Request CBC, Platelets & Auto Diff ([id number])Indication: Thrombocytopenia, unspecified On: :04 Request Comments: citrate tube Potassium Serum (50354)Indication: Hypokalemia On: 16-Usm-113278:36 Request Planned Encounters Medical; CARRIE Pre Wellness Exam (DB Nurse) - On: 26-Jul-2018 8:00 [facility] SUZY Spencer; CARRIE Wellness Exam (Doctor) - On: 16-Aug-2018 8:00 [facility] Priscila Hannah MD, MD, Dana M Planned Procedures EEGBy: Priscila Hannah MD On: 21-May-2018 Intent Priscila FLYNN MRI OF BRAIN WITH AND WITHOUT On: 21-May-2018 Intent CONTRAST ([id number])By: Priscila Hannah MD, MD, Dana M EKG (48939)By: Priscila Hannah MD On: 02-Dec-2017 Intent Priscila Hannah MD Radiology - Foot - LeftBy: Brielle On: 12-Aug-2017 Intent Priscila FLYNN MD, Dana M TDAP VACCINE >7 IM ([id number])By: On: 22-Jul-2017 Intent Priscila Hannah MD, MD, Dana Comments: tdap 0.5mL prefilled syringelot:1IU28vru:10/2019L DELT IMpt tolerated wellAD PETROLEUM ENGINEER M MAMMOGRAM BREAST BILATERAL SCREENING On: 02-Apr-2017 Intent DIGITAL ([id number])By: Priscila Hannah MD, MD, Dana M Kenalog Injection, 10 mgm On: 15-Feb-2017 Intent (J3301)By: Priscila Hannah MD Comments: lot numer [id number] 05/08 marcaine [id number] 06/21/18 Priscila Hannah MD Echo CompleteBy: Priscila Hannah MD On: 10-Sep-2016 Intent Priscila Hannah MD Comments: rule out pericarditis and ? pericardial fluid EKG (85263)By: Priscila Hannah MD On: 04-Sep-2016 Intent Priscila Hannah MD Comments: see scanned document of test done to see results reviewed today with patient Bone Density StudyBy: Brielle FLYNN, On: 09-Jun-2016 Intent Priscila Hernandez MD Kenalog Injection, 10 mgm On: 21-Apr-2016 Intent (J3301)By: Priscila Hannah MD Comments: buupivacaine lot [id number] 06-21-17 kenalog [id number] 09-05 Priscila Hannah MD DOPPLER ULTRASOUND OF RIGHT UPPER On: 20-Apr-2016 Intent EXTREMITY FOR VENOUS THROMBOEMBOLISM (72801)By: Priscila Hannah MD, MD, Dana M MAMMOGRAM, SCREENING, BOTH BREAST On: 27-Feb-2016 Intent ([id number])By: Priscila Hannah MD, MD, Dana M Venous Doppler - BothBy: Brielle FLYNN, On: 06-Dec-2015 Intent Priscila Hernandez MD Comments: lower legs rule out DVT ADMINISTRATION OF INFLUENZA VIRUS On: 18-Apr-2015 Intent VACCINE ([id number])By: Priscila Hannah MD Comments: Lot:[id number]:IMLocation:Rt deltoiiddose: .5mlGiven by:Priscila Potter MD FLU VAC, SPLIT, >3 YEARS, INTRAMUSC On: 18-Apr-2015 Intent (50713)By: Priscila Hannah MD Comments: Lot #:[id number] date:Amount given:0.5mlRoute: IMSite given:L DltdGiven by: Peyton CHAMPION and ABN signed Quad Flu Priscila Hannah MD BILATERAL MAMMOGRAMS ([id number])By: On: 05-Nov-2014 Intent Priscila Hannah MD, MD, Dana M CT - Chest (IV Contrast Needed)By: On: 23-Jul-2014 Intent Priscila Hannah MD, MD, Dana M COMPUTED TOMOGRAPHY ANGIOGRAPHY OF On: 23-Jul-2014 Intent CHEST WITH AND WITHOUT CONTRAST Comments: rule out PE (42282)By: Priscila Hannah MD, MD, Dana M EKG (22578)By: Lindsey Verde DO On: 05-Jul-2014 Intent Comments: sinus johanny with no chg MAMMOGRAM, SCREENING, BOTH BREAST On: 26-Apr-2014 Intent ([id number])By: Priscila Hannah MD, MD, Dana M BILATERAL MAMMOGRAMS (99998)By: On: 27-Mar-2014 Intent Priscila Hannah MD, MD, Dana M IMMUNIZ ADMNIN, 1 VAC, SNGL/COMBO On: 27-Mar-2014 Intent (93041)By: Priscila Hannah MD Comments: Lot #[id number]-[id number] dltd, IMDose prefilled syringegiven by:MLJOE alanizNVIS and ABN signed Priscila Hannah MD FLU VAC, SPLIT, >3 YEARS, INTRAMUSC On: 27-Mar-2014 Intent (94013)By: Priscila Hannah MD, MD, Dana M Eprescribed prescriptions ([id number])By: On: 10-Oct-2013 Intent Priscila Hannah MD, MD, Dana M Phenergan Injection, up to 50 mg On: 22-Sep-2013 Intent (J2550)By: Nona Whiting CNP Comments: [id number], IM Nyla, PETROLEUM ENGINEER INFUSION, NORMAL SALINE SOLUTION , On: 22-Sep-2013 Intent 1000 CC (Special Coverage Instructions Apply. See MCM: 2049) (J7030)By: Nona Whiting CNP HYDRATION IV INFUSION, INIT On: 22-Sep-2013 Intent (67425)By: Nona Whiting CNP Eprescribed prescriptions (G8553)By: On: 10-Jul-2013 Intent Nathalie Nicole Breast Screening - BilateralBy: On: 06-Feb-2013 Intent Priscila Hannah MD, MD, Dana M IMMUNIZ ADMNIN, 1 VAC, SNGL/COMBO On: 06-Feb-2013 Intent ([id number])By: [place] ([id number])By: Tj, On: 06-Feb-2013 Intent SUZY Ultrasound - Abdomen Complete & On: 18-Jan-2013 Intent PelvisBy: Nona Whiting CNP EKG ([id number])By: Priscila Hnanah MD On: 12-Jul-2012 Intent Priscila Hannah MD Comments: see scanned document of test done to see results reviewed today with patient Eprescribed prescriptions ([id number])By: On: 12-Jul-2012 Intent Long PETROLEUM ENGINEER, Nyla L MAMMOGRAM, SCREENING, BOTH BREASTS On: 06-Oct-2011 Intent (47415)By: Priscila Hannah MD Comments: 11-04-11 Priscila Hannah MD MAMMOGRAM, SCREENING, BOTH BREASTS On: 28-Nov-2010 Intent (58555)By: Priscila Hannah MD, MD, Dana M MAMMOGRAM, SCREENING, BOTH BREASTS On: 23-Oct-2010 Intent (23148)By: Priscila Hannah MD, MD, Dana M EEGBy: Lindsey Verde DO On: 20-Aug-2010 Intent EKG ([id number])By: Priscila Hannah MD On: 20-Dec-2009 Intent Priscila Hannah MD EKG (66812)By: Priscila Hannah MD On: 17-Jan-2009 Intent Priscila Hannah MD MAMMOGRAM, SCREENING, BOTH BREASTS On: 17-Jan-2009 Intent (13009)By: Priscila Hannah MD, MD, Dana M Pulse Oximetry (63602)By: Yung On: 04-Jul-2008 Intent Gabriela Comments: 98% Phenergan Injection, up to 50 mg On: 25-Apr-2008 Intent (J2550)By: Nona Whiting CNP Comments: 25mg given IMAmt: 1mlLot: [id number]: 03/2010Route: IMSite: left hipTolerated: wellGiven By: Sherlyn, PETROLEUM ENGINEER INFUSION, NORMAL SALINE SOLUTION , On: 25-Apr-2008 Intent 1000 CC (Special Coverage Comments: IV Therapy initiated (Hamzah Black LPN)22G, 1inchSite: right wristTolerated: wellB. Ino LPN Instructions Apply. See MCM: 2048) (J7030)By: Nona Whiting CNP HYDRATION IV INFUSION, INIT On: 25-Apr-2008 Intent (78875)By: Nona Whiting CNP FLU VAC, SPLIT, >3 YEARS, INTRAMUSC On: 21-May-2006 Intent (85482)By: SUZY Spencer IMMUNIZ ADMNIN, 1 VAC, SNGL/COMBO On: 21-May-2006 Intent (27040)By: SUZY Spencer Planned Medications INFUSION, NORMAL SALINE SOLUTION , 1000 CC Ordered: 22-Sep-2013 Pending Nona Whiting CNP INJECTION, TRIAMCINOLONE ACETONIDE, NOT OTHERWISE SPECIFIED, 10 MG Ordered: 21-Apr-2016 Pending Brielle FLYNN, Priscila Hannah MD, Priscila Cristina INJECTION, TRIAMCINOLONE ACETONIDE, NOT OTHERWISE SPECIFIED, 10 MG Ordered: 15-Feb-2017 Pending Brielle FLYNN, Priscila Hannah MD, Priscila Cristina Phenergan 50 MG/ML Injection Solution Ordered: [...] Patient Instructions Indication: Depression Encounters Review On: 21-May-2018 10:20 [facility] Office Visit On: 21-May-2018 [...] for Tdap vaccination (Renamed from Need for pwncmezfot-rzitqbr-hxwiqldcl (Tdap) vaccine, adult/adolescent), Thrombocytopenia, unspecified [facility] [...] Woman Exam (V72.31) (Pap,Mammo,Routine Female) (Renamed from [employer] Woman V72.31 (p,m)), Obesity (278.00) [facility] [...] Woman Exam (V72.31) (Pap,Mammo,Routine Female) (Renamed from [employer] V72.31 (p,m)), Obesity (278.00), Thrombocytopenia, unspecified (287.5), [...] Cold Symptoms: Pt just flew home from [place] yesterday.- yellow green nasal discharge- sx for [...]
--- OUTSIDE RECORDS SUMMARY | 2018-07-14 07:39 | XMS RPT_ITS | Continuity of Care Document ---
:1950 Author Organization [facility] Address [facility] [facility] [address] [place] [address] Phone Care Team Providers Name Role Phone Brielle FLYNN, Kelly Cristina Unavailable Jhony Castillo Unavailable Unavailable Mynor FLYNN, Puneet Unavailable Mae Mcallister Unavailable Dr. Erickson Allen Unavailable Marcia Saunders Unavailable SUZY Spencer Unavailable Unavailable Unavailable Unavailable Problems Name Dates Details Abnormal fasting glucose (R73.01, 790.29) Comments: better wtih weight loss. and now off victoza gain weight back. byetta not work. victoza worked best but insurance nto pay for. will try tanzem. Status: Active Allergic rhinitis (J30.9, 477.9) Status: [...] depression lost job was in . lost [employer] and she has to drive around. life withsomeone OCD, hoarder. on ambien for sleep per Dr. coates. Wellbutrin start but had insomni a in past. working with [employer]. doing okay on incresae welbutrin.tried Effexor, paxil [...] adipex and topamax. 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 got [...] 18-Apr-2015 End : 19-Apr-2015 Inactive BD Disp Blanding 30G X 1/2 Miscellaneous 1 (one) Misc [...] Comments:Medication taken as needed. called to [facility] 07-30-09 erussell disp 4 ounces no refills [...] Extended Release) 1 (one) [facility] 14 days for 0 days Quantity: 14 {Tablet_ER} Refills: 0 Ordered:02-May-2010 SUZY Spencer Start : 20-Dec-2009 End : 02-May-2010 Inactive NYSTATIN, 927297AKED/ML (Mouth/Throat Suspension) 15 Suspension qid swish and swallow for 0 days Quantity: 450 {Milliliter} Refills: 0 Ordered:20-Aug-2010 Suzette Black LPN Start : 04-Aug-2010 End : 20-Aug-2010 Inactive PANTOPRAZOLE SODIUM, 40MG (Oral Tablet Delayed Release) 1 (one) Tablet DR daily for 0 days Quantity: 30 {Tablet} Refills: 6 Ordered:06-Dec-2015 SUZY Spencer Start : 20-Apr-2015 End : 06-Dec-2015 Inactive Pen Blanding 5/16 31G X 8 MM Miscellaneous 1 [...] 0 days Quantity: 60 {Milliliter} Refills: 0 Ordered:1-Feb-2018 SUZY Spencer Start : 24-Jun-2017 End : [...] Leanne Marie Start : 29-Jul-2009 Inactive ZOSTAVAX, 10426TQW/0.65ML (Subcutaneous Solution Reconstituted) uad For Solution one [...] epig was in hospital and work up [facility] inventory associate and stress test. ppi and carafate helping. [...] for Tdap vaccination (Renamed from Need for peoifuecvu-cabuvvw-ugzgcgshe (Tdap) vaccine, adult/adolescent) (Z23, V06.1) Status: Resolved [...] 2007, 2013 bilateral LEFT HEART CARDIAC CATH (95847) Completed Comments: Dr. Alexander nasal abscess I and D 04-30 Completed Date Value Details 03-Mar-2018 Inital Evaluation (1) - PT Result: Comments: See Note; NOTES: [facility] Physical Therapy [facility] [address] [place] [address] Fax REHABILITATION SERVICES INITIAL EVALUATION MR#: [id number] Acct: [id number] Name: DIANA ESCUDERO Rep #: [id number] : 1950 68 From: Lazaro Jackson DPT Referring Dr.: GENOVEVA Myers Status: REG RCR Insurance: [employer] PPO SELF PAY INSURANCE Patient's Visit Information [...] stabing pain (8/10) at rest. 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 Please let me know if there are questions or concerns regarding this plan of care. Physician Signature: Date: <Electronically signed by Lazaro Jackson DPT&amp ;#62; 03/03/18 5780 CC: GENOVEVA Myers; Kelly Hannah MD CLS Signed For Medicare only, by signing this I certify the plan of care. Physicians Signature Date 16-Feb-2018 12 Lead Electrocardiogram Result: Comments: See Note; NOTES: [facility] Cardiovascular Services [address] [place] [address] 12 Lead EKG 02/14/18 1459 MR#: [id number] Acct: [id number] Name: DIANA ESCUDERO Rep #: [id number] : 1950 68 From: Harris Brandt MD [...] Int : 401 ms Sinus bradycardia Inferior NH, age undeterm ined, cannot be excluded Confirmed by KEVIN FLYNN, HARRIS ([id number]), assistant production editor NA DOWELL (56) on 02/16/2018 1:34:57 PM Referred By: BRIEN Confirmed By:HARRIS BRANDT MD 02/16/18 1335 Date __ Harris Brandt MD CC: Kelly Hannah MD; Kasi Worley MD Signed 15-Feb-2018 Emergency Department Summary Result: Comments: See Note; NOTES: [facility] Medical Records Department [address] [place] [address] Emergency Department Summary 02/14/18 1636 MR#: [id number] Acct: [id number] Name: DIANA ESCUDERO Rep #: [id number] : 1950 68 From: Kasi Worley MD [...] score 1. This note was generated with [employer] dictation software. It may contain incorrect words, [...] your Primary Care Provider. Call [facility] ([phone]) or report to the closest Emergency Room. Call 911 if necessary. 02/15/18 0046 <Electronically signed by Jose Daniel Worley MD> Date Kasi Worley MD Cosigner Signature (If Indicated): Date CC: Kelly Hannah MD 14-Feb-2018 Venous Duplex Lower Extremity Result: Comments: See Note; NOTES: [facility] Cardiovascular Services [address] [place] [address] Venous Duplex US, Unilateral 02/14/18 1549 MR#: [id number] Acct: [id number] Name: DIANA HICKMAN OLGA Rep #: [id number] : 1950 68 From: Abdoulaye Landa MD [...] Dictated: 0 02/14/18 1549 Date Transcribed: 02/14/181740 Watch Manufacturing Supervisor: Signed 14-Feb-2018 Chest 1 View (Portable) Result: Comments: See Note; NOTES: [facility] Imaging Services [address] [place] [address] Chest 1 View (Portable) MR#: [id number] Acct: [id number] Name: DIANA ESCUDERO Rep #: [id number] : 1950 F 68 From: Aaron Salgado MD PCP: Kelly Hannah MD Status: [facility] ER Study: Chest 1 View (Portable) Date of Exam: 02/14/18 Exam# [id number] Ordering Dr: Kasi Worley MD STUD Y: [...] Aaron Salgado MD at 15:52 EDT Tel [phone], Service support , CC: Kelly Salgado; Kasi Worley MD Watch Manufacturing Supervisor: Signed 24-Jan-2018 Cardiology Visit Report Result: Comments: See Note; NOTES: [facility] [address] [place] [address]. [address] [place] [address] OFFICE VISIT Date of Service: 01/24/18 MR#: [id number] Acct: [id number] Name: DIANA ESCUDERO OLGA Rep #: [id number] : 1950 Provider: Puneet Alexander MD Age/Sex: 67/F Location: [facility] Status: Signed HPI HPI Chief Complaint: Routine [...] recumbent bike without difficulty. In our office toda y her blood pressure is 100/64, and [...] Intake Visit Reasons: 6 M FU In [facility] Required: No Allergies simvastatin [From Zocor] Adverse [...] mg PO QDAY 01/24/18 [History Confirmed 01/24/18] [facility] Medical History Obstructive sleep apnea (Chronic) History of pulmonary embolism (Chr onic) Atherosclerosis of coronary artery of [place] heart without angina pectoris (Chronic) Hypertension (Chronic) [...] Plan 1. Atherosclerosis of coronary artery of [place] heart without angina pectoris I25.10 Non Obs [...] 3 Diagnoses Atherosclerosis of coronary artery of [place] heart without angina pect ranulfo I25.10 Hyperlipidemia E78.5 Coding Level of Care Code Off vis,est,level 3 Diagnoses Atherosclerosis of coronary artery of [place] heart without angina pectoris I25.10 Hyperlipidemia E78.5 12/06 1536 <Electronically signed by Puneet Alexander MD> Date [facility] Signature: Date (if applicable) CC: Kelly Hannah MD 12-Aug-2017 Foot min 3 Views Result: Comments: See Note; NOTES: [facility] Imaging Services [address] [place] [address] Foot min 3 Views MR#: [id number] Acct: [id number] Name: DIANA ESCUDERO OLGA Rep #: [id number] : 1950 F 67 From: Aaron Salgado MD PCP: Kelly Hannah MD Status: REG CLI Study: Foot min 3 Views Date of Exam: 08/12/17 Exam# [id number] Ordering Dr: Kelly Hannah MD STUDY: X-RAY [...] Salgado MD 08/08/21 at 14:14 EST Tel [phone], Service support , CC: Kelly Hannah MD Watch Manufacturing Supervisor: Signed 05-Aug-2017 TXT - Blood Flow Screening Result: Comments: See Note; NOTES: [facility] Cardiovascular Services [address] [place] [address] 08/05/17 0756 MR#: [id number] Acct: [id number] Name: DIANA ESCUDERO Rep #: [id number] [...] Dictated: 08/05/17 0756 Date T ranscribed: 08/05/172129 Watch Manufacturing Supervisor: Signed 15-Jul-2017 Cardiology Visit Report Result: Comments: See Note; NOTES: [facility] [address] [place] [address] OFFICE VISIT Date of Service: 07/15/17 MR#: [id number] Acct: [id number] Name: DIANA ESCUDERO OLGA Rep #: [id number] : 1950 Provider: Puneet Alexander MD Age/Sex: 67/F Location: [facility] Status: Signed HPI 6 M FU: Chief [...] Hyperlipidemia (Chronic) Atherosclerosis of coronary artery of [place] heart without angina pectoris (Chronic) Blood glucose [...] [facility] facilitate and improve her [...] (CAD), BILAT Result: Comments: See Note; NOTES: [facility] Imaging Services [address] [place] [address] SCREENING MAMM (CAD), BILAT MR#: [id number] Acct: [id number] Name: DIANA ESCUDERO OLGA Rep # : [id number] : 1950 F 67 From: Aaron Salgado MD PCP: Kelly Hannah MD Status: REG CL Study: SCREENING MAMM (CAD), BILAT Date of Exam: 04/19/17 Exam# [id number] Ordering Dr: Kelly Hannah MD MAMMOGRAPHY - [...] delay biopsy of a clinically suspicious abnormality. [id number] Electronically Signed: Aaron Salgado MD at 8:33 EDT Tel [phone], Service support , CC: Kelly Hannah MD Watch Manufacturing Supervisor: Signed 16-Sep-2016 Echocardiogram Complete Result: Comments: See Note; NOTES: [facility] Cardiovascular Services [address] [place] [address] Echo Complete 09/16/16 0956 MR#: [id number] Acct: [id number] Name: DIANA ESCUDERO Rep #: [id number] : 1950 66 From: Emil Craven MD Attending Dr: Kelly Hannah MD Status: REG CLI Ordering Dr: Kelly Hannah MD Date: 09/16/16 Location: [facility] Sex: F C Admitted: Reason For Bartolo [...] Dictated: 09/16/16 0956 Date Transcribed: 09/16/16 1145 Watch Manufacturing Supervisor: Signed 04-Sep-2016 CTA Chest W/WO Contrast Result: Comments: See Note; NOTES: [facility] Imaging Services [address] [place], [place] [address] [address] Verdana 4d CTA Chest W/WO Contrast MR#: [id number] Acct: [id number] Name: DIANA ESCUDERO Rep #: [id number] : 1950 F 66 From: Aaron Salgado MD PCP: Kelly Hannah MD Status: REG ER Study: CTA Chest W/WO Contrast Date of Exam: 09/04/16 Exam# [id number] Ordering Dr: Leanne Finn STUDY: CTA CHEST [...] Burak Salgado MD at 11:40 EDT Tel [phone], Service support [phone], CC: Leanne Finn MD; Kelly Hannah MD Watch Manufacturing Supervisor: Signed 23-Jun-2016 Dexa Bone Density Study (HP) Result: Comments: See Note; NOTES: [facility] Imaging Services [address] [place] [address] Verdana 4d Dexa Bone Density Study (HP) MR#: [id number] Acct: [id number] Name: EDUARDO ESCUDERO Rep #: [id number] : 1950 F 66 From: Aaron Salgado MD PCP: Kelly Hannah MD Status: REG CLI Study: Dexa Bone Density Study (HP) Date of Exam: 06/23/16 Exam# [id number] Ordering Dr: Kelly Posey MD STUDY: DUAL [...] Aaron Salgado MD at 16:05 EST Tel [phone], Service support [phone], CC: Kelly Hannah MD Watch Manufacturing Supervisor: Signed 20-Apr-2016 Venous Duplex Lower Extremity Result: Comments: See Note; NOTES: [facility] Cardiovascular Services [address] [place] [address] Venous Duplex US, Unilateral 04/20/16 1428 MR#: [id number] Acct: [id number] Name: DIANA ESCUDERO Rep #: [id number] : 1950 66 From: Marcus Garza MD [...] Date Dictated: 04/20/16 1428 Date Transcribed: 04/20/162149 Watch Manufacturing Supervisor: Signed 23-Mar-2016 Bilat Scrn Digital AND CAD Result: Comments: See Note; NOTES: [facility] Imaging Services [address] [place] [address] Verdana 4d Bilat Scrn Digital AND CAD MR#: [id number] Acct: [id number] Name: ANGELA ESCUDERO OLGA Rep #: [id number] : 1950 F 66 From: Aaron Salgado MD PCP: Kelly Hannah MD Status: REG CLI Study: Bilat Scrn Digital AND CAD Date of Exam: 03/23/16 Exam# [id number] Ordering Dr: Kelly Resendiz i, MD MAMMOGRAPHY [...] delay biopsy of a clinically suspicious abnormality. [id number] Electronically Signed: Aaron Salgado MD at 7:51 EDT Tel [phone], Service support [phone], CC: Kelly Hannah MD Watch Manufacturing Supervisor: Signed 02-Jan-2016 Venous Duplex Lower Extremity Result: Comments: See Note; NOTES: [facility] Cardiovascular Services [address] [place] [address] Venous Duplex US - Johnny Extrem 01/02/16 1454 MR#: [id number] Acct: [id number] Name: DIANA ESCUDERO Rep #: [id number] : 1950 65 From: Marcus Garza MD [...] Date Dictated: 01/02/16 1454 Date Transcribed: 01/02/161653 Watch Manufacturing Supervisor: Signed 12-Dec-2015 12 Lead Electrocardiogram Result: Comments: See Note; NOTES: [facility] Cardiovascular Services [address] [facility] [place] [address] 12 Lead EKG 12/03/151124 MR#: [id number] Acct: [id number] Name: DIANA DOWLING OLGA Rep #: [id number] : 1950 65 From: Puneet Alexander MD [...] normal ECG Confirmed by PUNEET ALEXANDER ([id number]), assistant production editor NA DOWELL (56) on 12/09/2015 10:54:37 AM Referred By: KIRT Confirmed By:PUNEET ALEXANDER 12/09/15 1054 Date ___ Puneet Alexander MD CC: Kelly Hannah MD Date Dictated: 12/03/15 1125 Date Transcribed: 12/03/151124 Watch Manufacturing Supervisor: Signed 03-Dec-2015 Emergency Department Summary Result: Comments: See Note; NOTES: [facility] Medical Records Department [address] [place] [address] Emergency Department Summary MR#: [id number] Acct: [id number] Name: DIANA ESCUDERO Rep #: [id number] : 1950 65 From: Leanne Finn MD [...] Finn MD T: [facility] JOB: [id number] 12/03/15 1536 <Electronically signed by Leanne Finn MD& #62; Date Leanne Finn MD Cosigner Signature (If Indicated): Date CC: Kelly Hannah MD Da te Dictated: 12/03/151356 Date Transcribed: 12/03/151356 Watch Manufacturing Supervisor: Signed 03-Dec-2015 Discharge Instruction Result: Comments: See Note; NOTES: [facility] Medical Records Department [address] [place], [place] [address] [address] Discharge Instruction 12/03/151353 MR#: [id number] Acct: [id number] Name: DIANA ESCUDERO OLGA Rep #: [id number] : 1950 65 From: Leanne Finn MD [...] problems, contact your doctor. Call [facility] ([phone]) or report to the closest Emergency Room. Call 911 if necessary. 12/03/15 135 &# 60;Electronically signed by Leanne Finn MD> Date Leanne Chakraborty Signature (If Indicated): Date CC: Kelly Hannah MD 03-Dec-2015 CTA Chest W/WO Contrast Result: Comments: See Note; NOTES: [facility] Imaging Services [address] [place] [address] Verdana 4d CTA Chest W/WO Contrast MR#: [id number] Acct: [id number] Name: DIANA MENESES Rep #: [id number] : 1950 F 65 From: Aaron Salgado MD PCP: Kelly Hannah MD Status: REG ER Study: CTA Chest W/WO Contrast Date of Exam: 12/03/15 Exam# [id number] Ordering D r: Leanen Finn MD STUDY: CTA CHEST REASON FOR [...] Aaron Salgado MD at 13:37 EDT Tel [phone], Service support [phone], CC: Leanne Finn MD; Kelly Hannah MD Watch Manufacturing Supervisor: Signed 24-Jul-2015 Sleep Study Report Result: Comments: See Note; NOTES: [facility] SLEEP DISORDER [facility] [address] [place] [address] Split Night Sleep Study MR#: [id number] Acct: [id number] Name: Miguel Angel ESCUDERO Rep #: [id number] : 1950 65 From: Jimmy Coates MD [...] version). Please note that a reference to [facility] AHI in this report is consistent with the current Hypopnea definition according to Medicare Criteria and an [facility] AHI reference is consistent wit h the current Hypopnea definition according to the AASM criteria and is recognized by [facility] as the RDI. PROCEDURE: The study was attended continuously by a appliance repair technician. Monitored parameters inclu ded left and [...] calculated body mass index of 35 and [place] Sleepiness Scale score of 6/20. The patient [...] and heated humidity. SLEEP STUDY DATA: [facility] split night study began at 1114:07 [...] body mass index. INTERPRETING PHYSICIAN: Jimmy Coates Jr. MAmber. Jimmy Coates MD T: [facility] JOB: [id number] CC: Jimmy Coates MD DD: 08/06 1043 1043 07/24/15 2205 <Electronically signed by Jimmy Coates MD> Date Jimmy Coates MD Co-signature (if appli cable) Date Signed 12-Feb-2015 Chest 1 View (Portable) Result: Comments: See Note; NOTES: [facility] Imaging Services [address] [place] [address] Radiology Report MR#: [id number] Acct: [id number] Name: DIANA ESCUDERO Rep #: [id number] : 1950 F 65 From: Aaron Salgado MD PCP: Kelly Hannah MD Status: PRE ER Study: Chest 1 View (Portable) Date of Exam: 02/12/15 Exam# [id number] Ordering Dr: Kenroy Arciniega MD S SABRINADY: X-RAY CHEST REASON FOR EXAM: Female, 65 [...] Aaron Salgado MD at 11:08 EDT Tel [phone], Service support [phone], RAD/Chest 1 View (Portable) IMPRESSION: No acut e abnormality is seen. Electronically Signed: Aaron Salgado MD at 11:08 EDT Tel [phone], Service support [phone], CC: Kelly Hannah MD; Kenroy Arciniega MD Watch Manufacturing Supervisor: Signed 12-Feb-2015 CTA Chest W/WO Contrast Result: Comments: See Note; NOTES: [facility] Imaging Services [address] [place] [address] CAT Scan Report MR#: [id number] Acct: [id number] Name: DIANA ESCUDERO Rep #: [id number] : 1950 F 65 From: Aaron Salgado MD PCP: Kelly Hannah MD Status: REG ER Study: CTA Chest W/WO Contrast Date of Exam: 02/12/15 Exam# [id number] Ordering Dr: Kenroy Arciniega MD UDY: CTA [...] Aaron Salgado MD at 12:08 EDT Tel [phone], Service support [phone], CC: Kelly Hannah MD; Kenroy Arciniega MD Watch Manufacturing Supervisor: Signed 11-Jan-2015 Bilat Scrn Digital AND CAD Result: Comments: See Note; NOTES: [facility] Imaging Services [address] [place] [address] Breast Imaging Report MR#: [id number] Acct: [id number] Name: DIANA ESCUDERO Rep #: [id number] : 1950 F 64 From: Shaan Nunez DO PCP: Kelly Hannah MD Status: REG CLI Study: Bilat Scrn Digital AND CAD Date of Exam: 01/11/15 Exam# [id number] Ordering Dr: Kelly Hannah MD MAMMOGRAPHY - [...] facility within 30 days. According to [employer] [employer], yearly mammograms are recommended starting [...] obscure small neoplasms. Elect ronically Signed: Shaan NunezDO at 10:22 EDT Tel [phone], Service support [phone], CC: Kelly Hannah MD Watch Manufacturing Supervisor: Signed 23-Jul-2014 CTA Chest W/WO Contrast Result: Comments: See Note; NOTES: [facility] Imaging Services [address] [place] [address] CAT Scan Report MR#: [id number] Acct: [id number] Name: DIANA ESCUDERO Rep #: [id number] : 1950 F 64 From: Aaron Salgado MD PCP: Kelly Hannah MD Status: REG CLI Study: CTA Chest W/WO Contrast Date of Exam: 07/23/14 Exam# [id number] Ordering Dr: Kelly Hannah MD S TUDY: [...] Aaron Salgado MD at 12:47 EST Tel [phone], Service support [phone], CC: Kelly Hannah MD Watch Manufacturing Supervisor: Signed 04-Jan-2014 Consultation Result: Comments: See Note; NOTES: [facility] Medical Records Department [address] [place] [address] Consultation 01/04/14 1218 MR#: [id number] Acct: [id number] Name: DIANA ESCUDERO Rep #: [id number] : 1950 63 From: Juancho Foy MD PCP: Kelly Hannah MD Status: REG [facility] Location: [place] [address] Problem List (1) Bradycardia Status: Acute (2) [...] PO Q4H PRN PRN #30 tablet 01/04/14 [[place] 5/325] Surgical History: appendectomy, cholecystectomy, - - Hysterectomy Psychiatric History: No pertinent psych hx MEDICAL LAB SCIENTIST History: No pertinent MEDICAL LAB SCIENTIST his tory Lives: Spouse/ Significant Other Smoking [...] Discharge Instruction Result: Comments: See Note; NOTES: [facility] Medical Records Department [address] [place] [address] Instructions for Home/Discharge Instructions 01/04/14 0731 MR#: [id number] Acc t: [id number] Name: DIANA ESCUDERO Rep #: [id number] : 1950 63 From: Anatoly Diego MD PCP: Kelly Hannah MD Status: REG SDC Discharge Diet: No Restrictions Discharge Activity: Return [...] PRN PRN #60 capsule Hydrocodone Bitart/Apap 5-325 [[place] 5/325] 1 tablet PO Q4H PRN PRN #30 tablet Please Follow Up With: Anatoly Diego When: 2-3 weeks Proposed Discharge Date: 01/05/14 01/04/14 0735 <Electronically signed by Anatoly Diego MD> Date Anatoly Diego MD CC: Kelly Hannah MD 10-Oct-2013 EKG ([id number]) Comments: see scanned document of test done to see results reviewed today with patient Result: [MEASUREMENTS ANALYSIS] Date of Test: 10/10/2013 08:20:27; Heart Rate: 64; MS Interval: 160; QRS: 90; QT Interval: 394; Corrected QT Interval (QTc): 401; P Wave [place]: 50; QRS Wave [place]: 5; T Wave [place]: 14; Blood Pressure: 122/78 [ECG DIAGNOSTIC STATEMENTS] [...] week Status: Active 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 Status: Active Living Situation: Lives with domestic partner. Comments: , Mandaen Status: Active No Caffeine Use Status: Active [...] kg/m2 Body Surface Area Calculated 2.13 m2 6-Ojd-632368:23 Temperature 98.2 f Pulse 70 /min Comments: [...] kg/m2 Body Surface Area Calculated 2.13 m2 4-Sep-88541:17 Pulse 72 /min Comments: Pattern: Regular BP [...] 0.00 cm Results Date Description Value Details :16 LIPOPROTEIN, BLD, BY NMR Comments: PATIENT WAS FASTINGPERFORMED BY: [facility] [address] [id number] ([id number]) LP-IR Score 81 (Abnormal) Comments: INSULIN RESISTANCE MARKER <--Insulin Sensitive Insulin Resistant--> Percentile in Reference PopulationInsulin Resistance ScoreLP-IR Score Low 25th 50th 75th High <27 27 45 63 >63LP-IR Score is inaccurate if patient is non-fasting. .The LP-IR score is a laboratory developed i [facility] that has beenassociated with insulin [...] were developed and their performance characteristicsdetermined by [employer]. These assays have not been cleared by [...] 1600 - 2000 Very High > 2000 33-Dyo-563072:35 Basic Metabolic Profile (BMP) Comments: [facility] [id number] [place], [place], [id number] GAP 10 (Normal) Range: 5-15 CO2 30.0 [...] A.D.A. criteria.Please note revised GLUCOSE reference range /02/2018. 79-Yvn-935874:35 CBC W/Diff, Automated Comments: [facility] [id number] [facility] [address] [place], [place], [address] Absolute Lymph 2.44 {X10_3/ul} (Normal) Range: 0.83-4.51 [...] 4.2-5.4 WBC 7.3 K/mm3 (Normal) Range: 4.4-11.0 13-Qig-998392:35 Troponin-I Comments: [facility] [id number] [place], [address] TROPONIN-I < 0.015 ng/mL (Normal) Comments: TROPONIN-I EXPECTED VALUES <0.045 Negative 0.045 - 0.590 Consistent with Cardiac Damage > OR = 0.600 Critical Value Not every elevated troponin is indicative of NH. T hesevalues should be used with clinical judgement in examiningthe patient's clinical picture for diagnosis. To establisha diagnosis of NH versus myocardial injury, there must be ademonstrated rise and/ or fall in the troponin values, inaddition to ischemic symptoms, EKG changes, new regionalwall motion abnormality, and/or angiographical evidence. PLEASE NOTE: REFERENCE RANGES EDITED 11/01/1723-Sep-20178:28 Pathology Report Comments: PERFORMED BY: LUIS [facility] Yvlv5036 [facility] [id number] BY: [facility] Dermatopathology Qfcusor654 [facility] [address] [place] [address] [id number] Information: [id number] See MATER Comments: Material submitted: .RIGHT HAND BIOPSYClinical history: .BLACK SPOT ON HAND Note (Normal) Diagnosis:BLUE NEVUS.TMZ/09/28/2017Electronically signed: .Mya Fay MD, DermatopathologistGross description: .RECEIVED IN FORMALIN LABELED DIANA ESCUDERO AND PALOMO HAND IS A PUGH SKIN PUNCH BIOPSY MEASURING 3.0 MM IN ANDREW METERAND 2.0 MM THICK WITH A OLIVAS, RAISED AREA 2.5 X 1.5 MM. SUBMITTEDIN TOTO.FUN/TMZPathologist provided ICD-10:D22.61CPT .725027 48-Foc-82007:47 Platelet Count on Comments: PATIENT WAS FASTINGPERFORMED BY: Leatt [facility] Zixuckerwa[address] [place] [address] [id number] BY: CB [facility] Ajbfwj6057 [facility] [id number] Citrated Bld Plt Count, Citrated Bld 160 {X10E3/uL} (Normal) Range: 150-379 20-Onq-01560:47 LIPOPROTEIN, BLD, BY NMR Comments: PATIENT WAS FASTINGPERFORMED BY: [facility] Zipwdzvmia2031 [facility] [id number] BY: [facility] Lenuks1962 [facility] [id number] Information: PLATELET ON CITRATE BLD 999501 (16330) LP-IR Score 85 (Abnormal) Comments: INSULIN RESISTANCE MARKER <--Insulin Sensitive Insulin Resistant--> Percentile in Reference PopulationInsulin Resistance ScoreLP-IR Score Low 25th 50th 75th High <27 27 45 63 >63LP-IR Score is inaccurate if patient is non-fasting. .The LP-IR score is a laboratory developed i ndex that has beenassociated with insulin resistance and [...] 1600 - 2000 Very High > 2000 05-Yuz-86824:43 Albumin/Creatinine Ratio,Urine Comments: PATIENT NOT FASTINGPERFORMED BY: [facility]6370 [facility] [id number] Alb/Creat Ratio <1.4 {mg/g_creat} (Normal) Range: 0.0-30.0 Albumin, Urine <3.0 ug/mL (Normal) Creatinine, Urine 212.4 mg/dL (Normal) :43 CBC With Differential/Platelet Comments: PATIENT NOT FASTINGPERFORMED BY: [facility]6370 [facility] [id number] Immature Grans (Abs) 0.0 {x10E3/uL} (Normal) Range: [...] Panel (14) Comments: PATIENT NOT FASTINGPERFORMED BY: SoundaySaint Michael's Medical CenterAcbank8610 [facility] [id number] ALT (SGPT) 18 [iU]/L (Normal) Range: 0-32 [...] Glucose, Serum 100 mg/dL (Abnormal) Range: 65-99 62-Yaq-85962:43 Urinalysis, Routine Comments: PATIENT NOT FASTINGPERFORMED BY: SoundaySaint Michael's Medical CenterJvkcad4214 [facility] [id number] Microscopic Examination MICNIP (Normal) Comments: Microscopic not indicated and not performed. Nitrite, Urine Negative (Normal) Urobilinogen,Semi-Qn 0.2 mg/dL (Normal) Range: 0.2-1.0 Bilirubin Negative (Normal) Occult Blood Negative (Normal) Ketones Negative (Normal) Glucose Negative (Normal) Protein Negative (Normal) WBC Esterase Negative (Normal) Appearance Clear (Normal) Urine-Color Yellow (Normal) pH 6.0 (Normal) Range: 5.0-7.5 Specific [place] 1.025 (Normal) Range: 1.005-1.030 60-Abk-579232:21 FLU A+B DIRECT AG, (RAPID) (17632) FLU A+B DIRECT AG, (RAPID) negative (Normal) :32 Potassium Serum (15613) Comments: PATIENT NOT FASTINGPERFORMED BY: [address] [id number] BY: [address] [id number] Potassium, Serum 3.9 mmol/L (Normal) Range: 3.5-5.2 :32 Magnesium (43885) Comments: PATIENT NOT FASTINGPERFORMED BY: [address] [id number] BY: [address] [id number] Magnesium, Serum 2.0 mg/dL (Normal) Range: 1.6-2.3 :32 CCP ANTIBODY (02629) Comments: PATIENT NOT FASTINGPERFORMED BY: [address] [id number] BY: [address] [id number] CCP Antibodies IgG/IgA 10 {units} (Normal) Range: 0-19 Comments: Negative <20 Weak positive 20 - 39 Moderate positive 40 - 59 Strong positive >59 :32 TSH (67616) Comments: PATIENT NOT FASTINGPERFORMED BY: [address] [id number] BY: [address] [id number] TSH 3.380 {uIU/mL} (Normal) Range: 0.450-4.500 :32 SED RATE ERYTHROCYTE Comments: PATIENT NOT FASTINGPERFORMED BY: [place] 6681070 [facility] [id number] BY: [address] [id number] (07012) Sedimentation Rate-Westergren 14 mm/h (Normal) Range: 0-40 :32 C-REACTIVE PROTEIN (48848) Comments: PATIENT NOT FASTINGPERFORMED BY: [facility]Asc[facility]6370 [facility] [id number] BY: [address] [id number] C-Reactive Protein, Quant 3.5 mg/L (Normal) Range: 0.0-4.9 :32 JESUS ALBERTO (ANTINUCLEAR ANTIBODY) Comments: PATIENT NOT FASTINGPERFORMED BY: LabAsc[facility]6370 [facility] [id number] BY: [address] [id number]; fu 3-30 (28610) JESUS ALBERTO Direct Negative (Normal) 02-Gjs-102194:37 Basic Metabolic Profile (BMP) Comments: 'TROP' Serial specimen #1, #2, #3, or #4: 1[facility] [address]ffb[address] [place], [address] GAP 8 (Normal) Range: 5-15 CO2 29.0 [...] <126 mg/dLsuggests IMPAIRED HOMEOSTASIS per A.D.A. criteria. 77-Twc-481514:37 CBC W/Diff, Automated Comments: [facility] M[address]mqb[address] [place], [address] Absolute Lymph 1.93 {X10_3/ul} (Normal) Range: 0.83-4.51 [...] 4.2-5.4 WBC 5.9 K/mm3 (Normal) Range: 4.4-11.0 41-Ous-468603:37 Troponin-I Comments: 'TROP' Serial specimen #1, #2, #3, or #4: 1[facility] Qabpkeojtm6[address] [place], [address] TROPONIN-I < 0.02 ng/mL (Normal) Comments: TROPONIN-I EXPECTED VALUES <0.05 NEGATIVE 0.06 - 0.59 AT RISK OF NH > OR = 0.60 SUGGEST NH 97-Lqn-292581:16 HEPATITIS C ANTIBODY (92081) Comments: CLient bill for this; PATIENT NOT FASTINGPERFORMED BY: LabCoSaint Michael's Medical CenterYjfqfj6336 [facility] [id number] Hep C Virus Ab <0.1 {s/co_ratio} (Normal) Range: 0.0-0.9 Comments: Negative: < 0.8 Indeterminate: 0.8 - 0.9 Positive: > 0.9 . The CDC recommends that a positive HCV antibody result be followed up with a HCV Nucleic Acid Amplification test (289109). 84-For-209621:32 CBC W/Diff, Automated Comments: [facility] [address]xwqasewi[address] [place], [address] Absolute Lymph 2.31 {X10_3/ul} (Normal) [...] Specimen #1, #2 or #3? 1[facility] Mbhozvvvqm[address], [place], [address] GAP 7 (Normal) Range: 5-15 CO2 28.0 [...] 1'CKMB' Serial Specimen #1, #2 or #3? [address] [place] [address] Xazhslzhtf4812 [facility] [place], [address] CKRI 1.1 % (Normal) Range: 0.0-1.4 Comments: RELATIVE INDEX >1.5% IS PRESUMPTIVELY POSITIVE CPKMB 1.7 ng/mL (Normal) Range: 0.0-5.0 Comments: CK-MB and RI Interpretation MB Relative Index Non-AMI <or= 5 NA Indeterminate > 5 <or= 4 AMI > 5 > 4 CPK TOTAL 158 U/L (Normal) Range: 26-192 Comments: Moderate Hemolysis, Result may be falsely increased. 14-Rnd-186219:08 Troponin-I Comments: Serial Specimen #1, #2 or #3? 1'TROP' Serial specimen #1, #2, #3, or #4: 1'CKMB' Serial Specimen #1, #2 or #3? [address] [place] [address] Wbbmgjjiat1484 [place], [place], [address] TROPONIN-I < 0.02 ng/mL (Normal) Comments: TROPONIN-I EXPECTED VALUES <0.05 NEGATIVE 0.06 - 0.59 AT RISK OF NH > OR = 0.60 SUGGEST NH :30 CBC (Auto) (02615) Comments: PATIENT WAS FASTINGPERFORMED BY: LabCoSaint Michael's Medical CenterDdzqyw4251 [facility] [id number] Platelets 165 {x10E3/uL} (Normal) Range: 150-379 RDW 13.8 % (Normal) Range: 12.3-15.4 MCHC 33.1 g/dL (Normal) Range: 31.5-35.7 MCH 31.2 pg (Normal) Range: 26.6-33.0 MCV 94 fL (Normal) Range: 79-97 Hematocrit 43.2 % (Normal) Range: 34.0-46.6 Hemoglobin 14.3 g/dL (Normal) Range: 11.1-15.9 RBC 4.59 {x10E6/uL} (Normal) Range: 3.77-5.28 WBC 6.6 {x10E3/uL} (Normal) Range: 3.4-10.8 :30 Metabolic Panel, Comments: PATIENT WAS FASTINGPERFORMED BY: SoundaySaint Michael's Medical CenterOxouxx9736 [facility] [id number] Information: 213331,H09393 Comprehensive (09311) ALT (SGPT) 14 [iU]/L (Normal) Range: 0-32 [...] mg/dL (Normal) Range: 65-99 :30 Lipid Panel (23979) Comments: PATIENT WAS FASTINGPERFORMED BY: ChannelAdvisorAscension [facility] Hospital6370 [facility] [id number] LDL/HDL Ratio 3.6 {ratio_units} (Abnormal) Range: 0.0-3.2 [...] Cholesterol, Total 218 mg/dL (Abnormal) Range: 100-199 02-Spi-75853:30 Hemoglobin Glyclated (HGB A1C) Comments: PATIENT WAS FASTINGPERFORMED BY: [facility]70 [facility] [id number]; [address] (00950) Hemoglobin A1c 5.8 % (Abnormal) Range: 4.8-5.6 Comments: . Pre-diabetes: 5.7 - 6.4 Diabetes: >6.4 Glycemic control for adults with diabetes: <7.0 09-Vot-445306:59 Urinalysis, Office (26570) UA - LEUKOCYTE ESTERASE Negative (Normal) UA - NITRITE Positive (Normal) URINE UROBILINGN FRAKNO TIMED 2 mg/dL (Normal) UA - PROTEIN Negative mg/dL (Normal) UA - PH 5 (Abnormal) UA - BLOOD Negative (Normal) UA - SPECIFIC GRAVITY 1.020 (Normal) UA - KETONES Negative mg/dL (Normal) UA - BILIRUBIN Negative (Normal) UA - GLUCOSE Negative (Normal) 65-Lcv-03441:00 Anticardiolip Ab, IgA/G/M, Comments: PATIENT WAS FASTINGPERFORMED BY: [employer] Kjzenp0475 [facility] [id number] BY: [employer] ALS2412 [facility] [id number] Qn Anticardiolipin Ab,IgA,Qn <9 {APL_U/mL} (Normal) Range: [...] Positive: >20 - 80 High Positive: >80 40-Yxx-929592:37 Basic Metabolic Profile (BMP) Comments: Serial Specimen #1, #2 or #3? 1'TROP' Serial specimen #1, #2, #3, or #4: 1Test performed at:[facility] [address] [place] [address] GAP 7 (Normal) Range: 5-15 [...] Comments: Please note revised CREATININE reference range tkafksbjz39/22/2015. BUN 16 mg/dL (Normal) Range: 7-18 GLU 134 mg/dL (Abnormal) Range: 70-110 Comments: Fasting Glucose result greater than or equal to 126 mg/dLsuggests DIABETES MELLITUS per A.D.A. criteria. 94-Hyk-578601:37 CBC W/Diff, Automated Comments: Test performed at:[facility] Mkzrafxqeh5185 [facility] [place] [address] Absolute Lymph 2.35 {X10_3/ul} (Normal) [...] 4.2-5.4 WBC 7.4 K/mm3 (Normal) Range: 4.4-11.0 34-Ffd-079315:37 CK-MB Quantitative and Index Comments: Serial Specimen #1, #2 or #3? 1'TROP' Serial specimen #1, #2, #3, or #4: 1Test performed at:[facility] Ttcx[address]zkp[address] [place] [address] CPKMB 0.8 ng/mL (Normal) Range: 0.0-5.0 Comments: CK-MB and RI Interpretation MB Relative Index Non-AMI <or= 5 NA Indeterminate > 5 <or= 4 AMI > 5 > 4 CPK TOTAL 80 U/L (Normal) Range: 26-192 55-Gjr-161683:37 Troponin-I Comments: Serial Specimen #1, #2 or #3? 1'TROP' Serial specimen #1, #2, #3, or #4: 1Test performed at:[facility] Jmsbskkyxh[address] [place] [address] TROPONIN-I < 0.02 ng/mL (Normal) Comments: TROPONIN-I EXPECTED VALUES <0.05 NEGATIVE 0.06 - 0.59 AT RISK OF NH > OR = 0.60 SUGGEST NH 68-Enw-017134:59 D-Dimer (71600) Comments: PATIENT NOT FASTINGPERFORMED BY: POPRAGEOUS[address] [id number] BY: [employer] Socjgs7102 [facility] [id number] D-Dimer 0.59 {mg/L_FEU} (Abnormal) Range: 0.00-0.49 Comments: In conjunction with a non-high clinical probability assessment, anormal (<0.50 mg/L FEU) result excludes deep vein thrombosis (DVT)and pulmonary embolism (PE) with high sensitivity. 09-Auq-44477:00 LIPID PANEL (78289) Comments: PATIENT WAS FASTINGPERFORMED BY: CB LabCompell[facility] Yqiqlm6612 [facility] [id number] BY: LabComp[facility] EJK1875 [facility] [place] [id number] LDL/HDL Ratio 3.1 {ratio_units} (Normal) Range: 0.0-3.2 [...] Cholesterol, Total 177 mg/dL (Normal) Range: 100-199 55-Rzk-082058:59 Protein S Profile Comments: PATIENT NOT FASTINGPERFORMED BY: Sounday[address] [id number] BY: SoundaySaint Michael's Medical CenterEdthpd1744 [facility] [id number] Inf ormation: T70031 (75215) Protein S-Functional 119 % (Normal) Range: 60-145 Protein S, Free 108 % (Normal) Range: 56-124 Protein S, Total 137 % (Normal) Range: 58-150 25-Dan-645018:59 Protein C Profile Comments: PATIENT NOT FASTINGPERFORMED BY: ChannelAdvisor[address] [id number] BY: SoundayP[place] 0811670 [facility] [id number] (13742) Protein C-Functional 120 % (Normal) Range: 74-151 Protein C Antigen 104 % (Normal) Range: 70-140 91-Uuj-97133:00 Homocysteine, Plasma Comments: PATIENT WAS FASTINGPERFORMED BY: [place] 0811670 [facility] [id number] BY: ChannelAdvisorResearch [facility] YVK9783 [facility] [place] [id number] (01082) Homocyst(e)ine, Plasma 11.2 umol/L (Normal) Range: 0.0-15.0 15-Dfv-101671:59 ANTITHROMBIN III ACTIVTY Comments: PATIENT NOT FASTINGPERFORMED BY: Sounday[address] [id number] BY: SoundaySaint Michael's Medical CenterZthcki9939 [facility] [id number] (27160) Antithrombin Antigen 94 % (Normal) Range: 75-130 Antithrombin Activity 108 % (Normal) Range: 75-135 64-Odq-675430:59 CLOTTING FACTOR II Comments: PATIENT NOT FASTINGPERFORMED BY: ChannelAdvisor[address] [id number] BY: SoundaySaint Michael's Medical CenterPpkylq1048 [facility] [id number] (51287) Factor II Activity 113 % (Normal) Range: 75-130 88-Udg-38392:00 Factor V Leiden (60178) Comments: PATIENT WAS FASTINGPERFORMED BY: [facility] Hacyjd3372 [facility] [id number] BY: [facility] FIJ3169 [facility] [id number] Factor V Leiden FVNEG3 (Normal) Comments: Result: [...] in the workup for venous thrombosis include [id number] mutation in the factor II (prothrombin) gene,protein S and C deficiency, and antithromb in deficiencies.Anticardiolipin antibody and lupus anticoagulant analysismay be appropriate for certain patients, as well ashomocysteine levels. .Contact your local [facility] for information on how to orderadditional testing if desired. .Genetic counselors are available for health care* providers to discuss results at [phone] ([phone]). .Methodology:DNA analysis of the Factor V gene [...] 169-186. .Dora Carrera, PhDOlimpia Wilson, PhDAspen Orta, PhDMichael Singh, PhDNgozi Cardozo, PhD . 90-Gjc-57180:00 MTHFR (72484) Comments: PATIENT WAS FASTINGPERFORMED BY: [facility] Wmtshr0592 [facility] [id number] BY: [facility] XSL7442 [place] [id number] MTHFR, DNA Analysis FR4601 (Normal) Comments: Result: C677T/C5144YYgn mutations (C677T and Y9456I) identified .Interpretation: .This individual is heterzygous for both the MTHFR C677T and X6299Uqmueisxk (one copy of each). Compound heterozygosity for the E595Yglo A0576B variants is unlikely to be of clinical [...] discuss these results with healthcare providers at [phone]. .Methylenetetrahydrofolate reductase (MTHFR) is a ke y enzyme in thefolate pathway and is responsible for the metabolism of homocysteine.There are two common variants in the MTHFR gene, c.655C>T(p.Pbk403Fnz), referred to as C677T, and c.1286A>C (p.G io901Ugn),referred to as C9576S. Individuals homozygous for C677T (two copiesof the variant), have decreased activity of the MTHFR enzyme and apredisposition to hyperhomocysteinemia, particularly when d eficient infolate. Hyperhomocysteinemia is a risk factor for venous thrombosisand coronary artery disease and is associated with an increased riskof open neural tube defects. The C677T variant reilly s notindependently increase risk of these conditions in the absence ofhyperhomocysteinemia. The C1503M variant is not associated withelevated homocysteine levels unless a C677T variant is also present;h owever, the clinical significance of heterozygosity for both Z316Rgmt J3129H is controversial. Population data suggest that these twovariants are not present on the same chromosome, but rare exceptionsh ave been reported of triple variant MTHFR genotypes (ie. homozygousfor one variant and heterozygous for the other). Homozygosity toxZ123S has an estimated frequency of 10% to [...] clinical information for the most accurateinterpretation. .South LD, Ki Augustine. Am J Epidemiol 2000; 151(9):862-877.Nilsa MM, Lady JA. Arch Pathol Lab Med 2007; 131(6):872-884.Frosst P et al. Felisa Gaina 1995; 10(1):111- 113.Hickey SE et al. Giana Med 2013; 15(2):153-156.Lo ckwood C et al. Obstet Gynecol 2011; 118(3):730-740.Jakob B et al. Eur J Epidemiol 2013; 28(8):621-647. .Dora Carrera, PhDSteffen Wilson, PhDMookie Tijerina MS, PhDTara Jhaveri, PhDNgozi Cardozo, PhD :52 HgA1C , Office (81844) HgA1C , Office 5.8 % (Normal) Range: 4.6 - 7.1 :31 CBC With Differential/Platelet Comments: PATIENT WAS FASTINGPERFORMED BY: [facility]Co Quthti6628 [facility] [id number] Information: [id number],[id number] Immature Grans (Abs) 0.0 {x10E3/uL} (Normal) Range: [...] 3.77-5.28 WBC 5.3 {x10E3/uL} (Normal) Range: 3.4-10.8 76-Hly-38091:31 Comp. Metabolic Panel (14) Comments: PATIENT WAS FASTINGPERFORMED BY: LabCoSaint Michael's Medical CenterKgnaaq8672 [facility] [id number] ALT (SGPT) 18 [iU]/L (Normal) Range: 0-32 [...] Glucose, Serum 103 mg/dL (Abnormal) Range: 65-99 44-Gns-860648:04 Urinalysis, Office (03332) UA - PH 6.0 (Normal) UA - LEUKOCYTE ESTERASE Negative (Normal) UA - NITRITE Negative (Normal) URINE UROBILINGN FRANKO TIMED 2 mg/dL (Normal) UA - PROTEIN Negative mg/dL (Normal) UA - BLOOD Negative (Normal) UA - SPECIFIC GRAVITY 1.025 (Normal) UA - KETONES Negative mg/dL (Normal) UA - BILIRUBIN Negative (Normal) UA - GLUCOSE Negative (Normal) 56-Tti-53281:51 POTASSIUM SERUM (38877) Comments: today; PATIENT NOT FASTINGPERFORMED BY: LabCoSaint Michael's Medical CenterPhdszw2998 [facility] [id number] Information: [id number],[id number] Potassium, Serum 3.8 mmol/L (Normal) Range: 3.5-5.2 8-Mls-501637:30 Basic Metabolic Profile (BMP) Comments: 'TROP' Serial specimen #1, #2, #3, or #4: 1'CKMB' Serial Specimen #1, #2 or #3? 1Test performed at:[facility] Wyfnbvpdix[address] [place], [place] [address] GAP 3 (Abnormal) Range: 5-15 CO2 34.0 [...] 7-18 GLU 89 mg/dL (Normal) Range: 70-110 5-Vmc-095570:30 CBC W/Diff, Automated Comments: Test performed at:[facility] Zcyelrkgva8495 [place] [address] Absolute Lymph 2.01 {X10_3/ul} (Normal) Range: 0.83-4.51 [...] 4.2-5.4 WBC 6.0 K/mm3 (Normal) Range: 4.4-11.0 :30 CK-MB Quantitative and Index Comments: 'TROP' Serial specimen #1, #2, #3, or #4: 1'CKMB' Serial Specimen #1, #2 or #3? 1Test performed at:[facility] Rnqboxqluv9618 [facility] [place] [address] CPKMB 0.8 ng/mL (Normal) Range: 0.0-5.0 Comments: CK-MB and RI Interpretation MB Relative Index Non-AMI <or= 5 NA Indeterminate > 5 <or= 4 AMI > 5 > 4 CPK TOTAL 64 U/L (Normal) Range: 26-192 2-Hxg-345497:30 D-Dimer Quantitative (DVT/PE) Comments: Test performed at:[facility] Sjzvpvpdzr3045 [facility] [place] [address] D-DIMER QUANT 1.86 {FEU/ug/m} (Abnormal) Range: 0.27-0.49 Comments: D-Dimer ELEVATED (>0.49): Additional studies and clinicalassessments are indicated to conclude diagnosis of:Deep Vein Thrombosis (DVT) or Pulmonary Embolism (PE)CRITICAL VALUE REPEATED AND VERIFIED. CALLED TO SHRAVAN.RN07/23/14 1104 Ricci Delgado.RESULTS READ BACK BY SAME. 3-Vwh-520563:30 Troponin-I Comments: 'TROP' Serial specimen #1, #2, #3, or #4: 1'CKMB' Serial Specimen #1, #2 or #3? 1Test performed at:[facility] Mffizgthod2789 [facility] [place] [address] TROPONIN-I < 0.02 ng/mL (Normal) Comments: TROPONIN-I EXPECTED VALUES <0.05 NEGATIVE 0.06 - 0.59 AT RISK OF NH > OR = 0.60 SUGGEST NH :18 HgA1C , Office (68677) HgA1C , Office 5.7 % (Normal) Range: 4.6 - 7.1 :18 Blood Glucose , Office (40332) Blood Glucose , Office 106 (Normal) :20 CBCD ALC 2.30 {X10_3/ul} (Normal) Range: 0.83-4.51 [...] S. AUREUS S. aureus NegativeMRSA MRSA Negative :20 UAC Comments: ORDER URINE CULTUREIF POSITIVE NITRITE [...] Yellow (Normal) :54 Blood Glucose , Office (72001) Blood Glucose , Office 123 (Normal) Comments: Not Fasting :54 HgA1C , Office (37971) HgA1C , Office 6.0 % (Normal) Range: 4.6 - 7.1 :31 POTASSIUM SERUM (98475) Comments: patient having drawn in 2 wks; PATIENT NOT FASTINGPERFORMED BY: SoundaySaint Michael's Medical CenterOsugsj6258 [facility] [id number] Information: [id number] Potassium, Serum 4.0 mmol/L (Normal) Range: 3.5-5.2 :20 Microscopic Examination Comments: PATIENT WAS FASTINGPERFORMED BY: SoundaySaint Michael's Medical CenterCyqesr0272 [facility] [id number] Bacteria Few (Normal) Mucus Threads Present (Normal) [...] A POSITIVE (Normal) :20 URINALYSIS, W/ MICRO (48167) Comments: PATIENT WAS FASTINGPERFORMED BY: ChannelAdvisorAscension Borgess [facility] Hospital6370 [facility] [id number] Microscopic Examination See below: (Normal) Comments: Microscopic was indicated and was performed. Nitrite, Urine Negative (Normal) Urobilinogen,Semi-Qn 1.0 mg/dL (Normal) Range: 0.0-1.9 Bilirubin Negative (Normal) Occult Blood Negative (Normal) Ketones Negative (Normal) Glucose Negative (Normal) Protein Trace (Normal) WBC Esterase 2+ (Abnormal) Appearance Clear (Normal) Urine-Color Yellow (Normal) pH 6.5 (Normal) Range: 5.0-7.5 Specific [place] 1.023 (Normal) Range: 1.005-1.030 :20 METABOLIC PANEL, COMPREHENSIVE Comments: PATIENT WAS FASTINGPERFORMED BY: SoundaySaint Michael's Medical CenterVdliyz7471 [facility] [id number] (82466) ALT (SGPT) 20 [iU]/L (Normal) Range: 0-32 [...] mg/dL (Abnormal) Range: 65-99 :20 LIPID PANEL (88875) Comments: PATIENT WAS FASTINGPERFORMED BY: SoundaySaint Michael's Medical CenterFpblvs4397 [facility] [id number] LDL/HDL Ratio 3.8 {ratio_units} (Abnormal) Range: 0.0-3.2 [...] MANUAL DIFF Comments: PATIENT WAS FASTINGPERFORMED BY: SoundaySaint Michael's Medical CenterOmzetj4416 [facility] [id number] Information: [id number] (79578) Immature Grans (Abs) 0.0 {x10E3/uL} (Normal) Range: [...] (Normal) Range: 3.4-10.8 :09 HgA1C , Office (23952) HgA1C , Office 5.8 % (Normal) Range: 4.6 - 7.1 :09 Blood Glucose , Office (68767) Blood Glucose , Office 129 (Normal) Comments: [...] (Normal) Range: 70-110 :17 HgA1C , Office (85513) HgA1C , Office 5.9 % (Normal) Range: 4.6 - 7.1 :17 Blood Glucose , Office (00581) Blood Glucose , Office 107 (Normal) :15 [...] be sent to the patient by the [facility] within 30 days. Approximately 10% of breast cancers are not detected by mammography. Anormal mammogram should not delay biopsy of a clinically suspiciousabnormality. Signed:Payton DuttaMarch 15, 2013 at 7:58:55 AM [id number] Signed GP/GP If you are the referring physician and would like to consult with theradiologist who provided this interpretation, please co rodolfoct Unique Yusuf at [phone]. If this radiologist is unavailable, youwill be directed to another radiologist to assist. If you are a patient with a question regarding this report, pleas econtactyour referring physician directly. Professional Interpretation Provided By: Avenue [employer], Phone , These documents contain legally protected [...] documents. Dictated on 03/15/13 0 758 by Laurita Salgado MDscribed on 03/15/13 0836 by ITS IMPORTSign by Aaron Salgado MD on 03/15/13 0837 Sign by: Aaron Salgado MD 08-Hsn-03313:25 Blood Glucose , Office (71917) Blood Glucose , Office 134 (Normal) 33-Gtu-11314:25 HgA1C , Office (44727) HgA1C , Office 5.8 % (Normal) Range: 4.6 - 7.1 1-Xiq-621352:22 PELVIC (NON ) Radiology Report See Note [...] Salgado M.D.January 23, 2013 at 2:31:38 PM [id number] Signed GP/GP If you are the referring physician and would like to consult with theradiologist who provided this interpretati on, please contact Unique Yusuf at [phone]. If this radiologist is unavailable, youwill be directed to another radiologist to assist. If you are a patient with a question regarding this report, pleasecontactyour referring physician directly. Professional Interpretation Provided By: [employer], Phone , These documents contain legally protected [...] 01/23/13 1431 by Damian FLYNN,Galiranscribed on 01/24/13 1058 by ITS IMPORTSign by [...] size of the right kidney. The right vnvpedxkmqzryt01.4 cm. Ambika l renal cortex. The right cortex measures 1.0 cm. Thereisa 1.1 cm x 1.0 cm x 0.9 cm cyst in the inferior pole. There is no righthydronephrosis. Left Kidney: Normal size of the left kidney. The left kidney hordpivt00.5cm. Normal renal cortex. The left cortex measures 1.9 cm. There is nodemonstrated renal mass or cyst. There is no left hydronephrosis. Aorta: Unremarkable. I.V.C.: The IVC is pa tent. There is no ascites. IMPRESSION:Fatty infiltration of the liver. The patient is status postcholecystectomy. Signed:Aaron Salgado M.D.January 23, 2013 at 2:2 8:11 PM [id number] Signed GP/GP If you are the referring physician and would like to consult with theradiologist who provided this interpretation, please contact Payton Yusuf at [phone]. If this radiologist is unavailable, youwill be directed to another radiologist to assist. If you are a patient with a question regarding this report, pleasecontactyour referring phys ician directly. Professional Interpretation Provided By: Avenue [employer], Phone , These documents contain legally protected [...] destructionofthese documents. Dictated on 01/23/13 1428 by Damian FLYNN,Solomon Mccordscribed on 01/24/13 1040 by ITS IMPORTSign by [...] Salgado M.D.January 23, 2013 at 2:31:38 PM [id number] Signed GP/GP If you are the referring physician and would like to consult with theradiologist who provided this interpretati on, please contact Unique Yusuf at [phone]. If this radiologist is unavailable, youwill be directed to another radiologist to assist. If you are a patient with a question regarding this report, pleasecontactyour referring physician directly. Professional Interpretation Provided By: Avenue [employer], Phone , These documents contain legally protected [...] 01/24/13 1043 Sign by: Aaron Salgado MD 70-Zjc-703404:11 CBC, Platelets & Auto Comments: PATIENT NOT FASTINGPERFORMED BY: LabCoSaint Michael's Medical CenterTokkex6115 [facility] [id number] Information: [id number] Diff (62989) Immature Grans (Abs) 0.0 {x10E3/uL} (Normal) Range: [...] (Normal) Range: 70-110 :33 HgA1C , Office (82450) HgA1C , Office 5.8 % (Normal) Range: 4.6 - 7.1 :53 METABOLIC PANEL, COMPREHENSIVE Comments: PATIENT WAS FASTINGPERFORMED BY: LabCoSaint Michael's Medical CenterYywbyd7282 [facility] [id number] (93432) ALT (SGPT) 19 [iU]/L (Normal) Range: 0-32 [...] MANUAL DIFF Comments: PATIENT WAS FASTINGPERFORMED BY: JERMAINE LiB [facility] [id number] Information: [id number] (99968) Immature Grans (Abs) 0.0 {x10E3/uL} (Normal) Range: [...] 3.77-5.28 WBC 7.5 {x10E3/uL} (Normal) Range: 4.0-10.5 :53 LIPID PANEL (13051) Comments: PATIENT WAS FASTINGPERFORMED BY: JERMAINE [place] [address] [id number] LDL/HDL Ratio 3.3 {ratio_units} (Abnormal) Range: 0.0-3.2 LDL Cholesterol Calc 136 mg/dL (Abnormal) Range: 0-99 HDL Cholesterol 41 mg/dL (Normal) Comments: According to ATP-III Guidelines, HDL-C >59 mg/dL is considered anegative risk factor for CHD. VLDL Cholesterol José Luis 45 mg/dL (Abnormal) Range: 5-40 Triglycerides 226 mg/dL (Abnormal) Range: 0-149 Cholesterol, Total 222 mg/dL (Abnormal) Range: 100-199 60-Glk-62407:51 BILAT SCRN DIGITAL & CAD Radiology Report [...] Salgado M.D.January 18, 2012 at 10:04:04 AM [id number] Signed GP/GP If you are the referring physician and would like to consult with theradiologist who pro vided this interpretation, please contact Unique Yusuf at [phone]. If this radiologist is unavailable, youwill be directed to another radiologist to assist. If you are a patient with a q uestion regarding this report, pleasecontactyour referring physician directly. Professional Interpretation Provided By: Avenue [employer], Phone , Dictated on 01/18/12 0759 by Damian FLYNN,DavidriClevelandranscribed on 01/18/12 1010 by ITS IMPORTSign by Damian FLYNN,Aaron on 01/18/12 1011 Sign by: Aaron Salgado MD 6-Xvy-550842:43 MICROALBUMIN: CREATININE RATIO Comments: PATIENT WAS FASTINGPERFORMED BY: [employer] Hszlmt7853 [facility] [id number] (78876) AND (60556) Microalb/Creat Ratio 1.4 {mg/g_creat} (Normal) Range: 0.0-30.0 Microalbumin, Urine 2.3 ug/mL (Normal) Range: 0.0-17.0 Creatinine, Urine 167.9 mg/dL (Normal) Range: 15.0-278.0 7-Ovz-068905:43 METABOLIC PANEL, COMPREHENSIVE Comments: PATIENT WAS FASTINGPERFORMED BY: Eggs Overnight6370 [facility] [id number] (06525) ALT (SGPT) 24 [iU]/L (Normal) Range: 0-40 [...] Glucose, Serum 95 mg/dL (Normal) Range: 65-99 7-Nvg-402390:43 LIPID PANEL (03443) Comments: PATIENT WAS FASTINGPERFORMED BY: [employer]unLight [facility] [id number] LDL/HDL Ratio 3.2 {ratio_units} (Normal) Range: 0.0-3.2 [...] MANUAL DIFF Comments: PATIENT WAS FASTINGPERFORMED BY: Eggs Overnight6370 [facility] [id number] Information: [id number] (72324) Immature Grans (Abs) 0.0 {x10E3/uL} (Normal) Range: [...] population. WBC 5.9 {x10E3/uL} (Normal) Range: 4.0-10.5 :18 HgA1C , Office (69457) HgA1C , Office 6.1 % (Normal) Range: 4.6 - 7.1 37-Vkc-956229:18 Blood Glucose , Office (19447) Blood Glucose , Office 125 (Normal) 29-Iyl-461522:00 Thin prep Pap Comments: Source.............Cervical;EndocervicalNo. of containers..01 CYTYC Thin Prep VialPATIENT NOT FASTINGPERFORMED BY: LabCo72 [address] Streetzakiyapottstown hospital MANDEEP [id number] Information: [id number] (30410) Note: PAPSMR (Normal) Comments: The Pap smear [...] ; Routine gynecolog ical examina Imelda Batres Cmo (ASCP) 34-Oiz-82234:00 THU LEZAMA DIGITAL & CAD Radiology Report [...] 11/03/10 0608 by Gali Salgado MDranscribed on 11/04/10618 by ITS IMPORTSign by Aaron Salgado MD on 11/04/10619 Sign by: __ Aaron Salgado MD 6-Zkf-400598:24 CBC & PLATELETS (AUTO) Comments: PATIENT NOT FASTINGPERFORMED BY: LabCo Uudbwg6810 [facility] [id number] Information: [id number]; appt 11/28/10 (72394) MCH 31.6 pg (Normal) Range: 27.0-34.0 MCHC [...] High <27 27 45 63 >63Performed at: - [facility] [address], [place] [id number] Director: Stefano Mace PhD, Phone: [phone] HDL SIZE <TEST NOT PERFORMED> (Normal) INSULIN [...] TOT 209 mg/dL (Abnormal) LIPIDS . (Normal) 3-Pzz-584753:12 CULT, DP WOUND Comments: COMMENTS: CULTURE, SENSITIVITY,AREOBES, [...] STRIMETHOPRIM/SULFAMETHOXAZ $ <=10 SVANCOMYCIN $ 1 S 3-Tqh-284793:10 CBC Comments: COMMENTS: AC ROOM 6 HCT [...] 1 S :56 Blood Glucose , Office (40525) Blood Glucose , Office 102 (Normal) :56 HgA1C , Office (56411) HgA1C , Office 6.1 % (Normal) Range: 4.6 - 7.1 :49 MICROALBUMIN: CREATININE Comments: PATIENT WAS FASTINGPERFORMED BY: eMarketer0 [facility] [id number] BY: Eggs Overnight6370 [facility] [id number] RATIO (97572) AND (27487) Microalb/Creat Ratio 2.3 {mg/g_creat} (Normal) Range: 0.0-30.0 Microalbumin, Urine 3.4 ug/mL (Normal) Range: 0.0-17.0 Creatinine, Urine 150.2 mg/dL (Normal) Range: 15.0-278.0 :49 LIPOPROTEIN, BLD, BY NMR Comments: PATIENT WAS FASTINGPERFORMED BY: S7 [employer] [facility] [id number] BY: Flirq70 MurphyFult[facility] [id number] Information: ADD [id number] AND DRAW FEE 99 4725 (05820) LP-IR 83 Comments: The LP-IR Score combines [...] (Abnormal) Choleste 220 mg/dL rol, (Abnormal) Total 04-Ugc-61254:49 METABOLIC PANEL, Comments: PATIENT WAS FASTINGPERFORMED BY: Fede [facility] Ydn7769 [facility] [id number] BY: JERMAINE [facility] Ppxuou4625 [facility] [id number] COMPREHENSIVE (21205) ALT (SGPT) 22 [iU]/L (Normal) Range: 0-40 [...] Glucose, Serum 107 mg/dL (Abnormal) Range: 65-99 44-Nxg-95930:49 LIPID PANEL (22797) Comments: PATIENT WAS FASTINGPERFORMED BY: Blowtorch [facility] Rice LakeeBuilderWilson Memorial HospitalEther [employer] [id number] BY: Prognomixlin6370 [facility] [id number] LDL Cholesterol Calc 135 mg/dL (Abnormal) Range: 0-99 LDL/HDL Ratio 4.1 {ratio_units} (Abnormal) Range: 0.0-3.2 VLDL Cholesterol José Luis 52 mg/dL (Abnormal) Range: 5-40 HDL Cholesterol 33 mg/dL (Abnormal) Comments: According to ATP-III Guidelines, HDL-C >59 mg/dL is considered anegative risk factor for CHD. Triglycerides 261 mg/dL (Abnormal) Range: 0-149 Cholesterol, Total 220 mg/dL (Abnormal) Range: 100-199 17-Xbm-58874:49 CBC WITH MANUAL DIFF Comments: PATIENT WAS FASTINGPERFORMED BY: [employer] [facility] [id number] BY: AlbiorexSaint Michael's Medical CenterNgmeuf2655 [facility] [id number] (83490) Baso (Absolute) 0.1 {x10E3/uL} (Normal) Range: 0.0-0.2 [...] 3.80-5.10 WBC 6.7 {x10E3/uL} (Normal) Range: 4.0-10.5 6-Tee-039817:35 MARYJANE CULTURE-OTHER (77796) Comments: PATIENT NOT FASTINGPERFORMED BY: [employer] [facility] [id number] Information: SRC:RAH [id number] Result 1 RRF (Normal) Comments: Routine respiratory bin Upper Respiratory Culture Final report (Normal) :07 Rapid Strep Test, Office (85398) Rapid Strep Test, Negative (Normal) Office :2 Potassium, Serum 3.8 mmol/L (Normal) Comments: PATIENT WAS FASTINGPERFORMED BY: AlbiorexMemorial Medical CenterScqncc0359 [facility] [id number] 4 Range: 3.5-5.2 11-Jfj-816303:00 BILAT SCRN DIGITAL & CAD Radiology Report See Note (Normal) Comments: Exam Number: [id number] MAMMOGRAM, BILATERAL SCREENING DIGITAL AND CAD HISTORYRoutine [...] werealso examined with computer-aided detection s oftware (hoccer.). Reported By: KENNA SWEET M.D. 27-Feb-20098:24 Lipid Panel (53322) Comments: PATIENT WAS FASTINGClinical Information: ADD 880484, S15916 PERFORMED BY: Interactive Advisory SoftwareUNC Health Rex [id number] Cholesterol, Total 224 mg/dL (Abnormal) Range: 100-199 HDL Cholesterol 31 mg/dL (Abnormal) Comments: According to ATP-III Guidelines, HDL-C >59 mg/dL is considered anegative risk factor for CHD. LDL Cholesterol Calc 122 mg/dL (Abnormal) Range: 0-99 LDL/HDL Ratio 3.9 {ratio_units} (Abnormal) Range: 0.0-3.2 Triglycerides 354 mg/dL (Abnormal) Range: 0-149 VLDL Cholesterol José Luis 71 mg/dL (Abnormal) Range: 5-40 81-Kqe-200087:16 JESUS ALBERTO (ANTINUCLEAR ANTIBODY) Comments: PATIENT NOT FASTINGPERFORMED BY: [facility] [id number] (88324) Antinuclear Antibodies Direct Negative (Normal) 36-Cnu-403688:16 C-REACTIVE PROTEIN (04229) Comments: PATIENT NOT FASTINGPERFORMED BY: [facility] ServicesCommunity [facility] [id number] C-Reactive Protein, Quant 8.0 mg/L (Abnormal) Range: 0.0-4.9 19-Jqc-162246:16 CBC (AUTO) (14878) Comments: PATIENT NOT FASTINGPERFORMED BY: [facility]6370 [facility] [id number] Hematocrit 42.4 % (Normal) Range: 34.0-44.0 Hemoglobin 14.4 g/dL (Normal) Range: 11.5-15.0 MCH 31.9 pg (Normal) Range: 27.0-34.0 MCHC 34.0 g/dL (Normal) Range: 32.0-36.0 MCV 94 fL (Normal) Range: 80-98 Platelets 160 {x10E3/uL} (Normal) Range: 140-415 RBC 4.52 {x10E6/uL} (Normal) Range: 3.80-5.10 RDW 14.1 % (Normal) Range: 11.7-15.0 WBC 7.6 {x10E3/uL} (Normal) Range: 4.0-10.5 71-Pba-250917:16 Folate (16177) Comments: PATIENT NOT FASTINGPERFORMED BY: [place] [id number] [facility] [id number] Folate (Folic Acid), Serum 17.4 ng/mL (Normal) Comments: Indeterminate: 3.4 - 5.4 Deficient: <3.4 68-Xbs-937969:16 METABOLIC PANEL, COMPREHENSIVE Comments: PATIENT NOT FASTINGPERFORMED BY: [place] [id number] [facility] [id number] (31446) A/G Ratio 1.2 (Normal) Range: 1.1-2.5 Albumin, [...] Sodium, Serum 142 mmol/L (Normal) Range: 135-145 49-Jmo-786945:16 RHEUMATOID FACTOR-QUANT (70857) Comments: PATIENT NOT FASTINGPERFORMED BY: [facility]Community [facility] [id number] RA Latex Turbid. 9.3 {IU/mL} (Normal) Range: 0.0-13.9 23-Jlo-867441:16 SED RATE ERYTHROCYTE (01128) Comments: PATIENT NOT FASTINGPERFORMED BY: Sound[employer]rp AMIHO TechnologyCommunity Health [id number] Sedimentation Rate-Westergren 21 mm/h (Normal) Range: 0-30 13-Mpu-398025:16 TSH (00168) Comments: PATIENT NOT FASTINGPERFORMED BY: [facility]70 3D FormsCommunity Health [id number] TSH 2.690 {uIU/mL} (Normal) Range: 0.450-4.500 02-Byy-835318:16 VITAMIN B-12 (CYANOCOBALAMIN) Comments: PATIENT NOT FASTINGPERFORMED BY: [facility] [id number] (00042) Vitamin B12 348 pg/mL (Normal) Range: 211-911 :35 Lipid Panel (92543) Comments: PATIENT WAS FASTINGClinical Information: ADD 395855, S30236 PERFORMED BY: JERMAINE [facility] Trnkhj5960 [place] [id number] Cholesterol, Total 208 mg/dL (Abnormal) Range: 100-199 HDL Cholesterol 32 mg/dL (Abnormal) Comments: According to ATP-III Guidelines, HDL-C >59 mg/dL is considered anegative risk factor for CHD. LDL Cholesterol Calc 124 mg/dL (Abnormal) Range: 0-99 LDL/HDL Ratio 3.9 {ratio_units} (Abnormal) Range: 0.0-3.2 Triglycerides 261 mg/dL (Abnormal) Range: 0-149 VLDL Cholesterol José Luis 52 mg/dL (Abnormal) Range: 5-40 :47 HgA1C , Office (42036) HgA1C , Office 5.8 % (Normal) Range: 4.6 - 7.1 :47 Blood Glucose , Office (77050) Blood Glucose , Office 128 (Normal) :43 Urinalysis, Office (06211) UA - LEUKOCYTE ESTERASE Trace (Normal) UA [...] Indication: Acute sinusitis Planned Observations LIPID PANEL (81070)Indication: Mixed hyperlipidemia On: 8-Bog-822594:45 Request Platelet 96393 (citrate, nonclumping tube)Indication: Thrombocytopenia, unspecified On: 22-Jul-20178:19 Request Metabolic Panel, Comprehensive (93381)Indication: Benign essential hypertension On: :46 Request MICROALBUMIN: CREATININE RATIO (95598) AND (74626)Indication: Benign essential hypertension On: :45 Request URINALYSIS (48380)Indication: Benign essential hypertension On: :45 Request CBC WITH MANUAL DIFF (80988)Indication: Benign essential hypertension On: :45 Request Platelet Count, Citrated (30010)Indication: Thrombocytopenia, unspecified On: :11 Request LIPOPROTEIN, BLD, BY NMR (54594)Indication: Mixed hyperlipidemia On: :07 Request Lipase (90912)Indication: Abdominal pain On: :24 Request Comments: add to hospital labs. Amylase (01462)Indication: Abdominal pain On: :24 Request Comments: add to hospital labs. Antiphospholipid atb (94460)Indication: Pulmonary emboli On: : Request ANTICOAG ANTTHROMB III & ASSAY (17614)Indication: Pulmonary emboli On: :27 Request METABOLIC PANEL, COMPREHENSIVE (73977)Indication: Benign essential hypertension On: :37 Request Comments: in three months (approximately) CBC with auto diff (49267)Indication: Benign essential hypertension On: :37 Request Comments: in three months (approximately) Troponin I (63649)Indication: Chest pain at rest On: : Request CPK MB FRACTION (80810)Indication: Chest pain at rest On: 2-Kvs-504228:01 Request CREATINE KINASE TOTAL (24322)Indication: Chest pain at rest On: 1-Jqx-462955:01 Request D-Dimer (25735)Indication: Chest pain at rest On: 9-Nhg-414570:00 Request Metabolic Panel, Basic (33486)Indication: Chest pain at rest On: :58 Request CBC (Auto) (17533)Indication: Chest pain at rest On: :58 Request URINALYSIS, W/ MICRO (03715)Indication: Benign essential hypertension On: :29 Request METABOLIC PANEL, COMPREHENSIVE (33735)Indication: Benign essential hypertension On: :29 Request LIPID PANEL (63483)Indication: Benign essential hypertension On: :29 Request CBC W/AUTO DIFF WBC (16039)Indication: Benign essential hypertension On: :29 Request URINALYSIS (06194)Indication: UTI (lower urinary tract infection) On: :49 Request LIPID PANEL (68648)Indication: Benign essential hypertension On: :27 Request CBC WITH MANUAL DIFF (02435)Indication: Thrombocytopenia, unspecified On: :27 Request METABOLIC PANEL, COMPREHENSIVE (12689)Indication: Benign essential hypertension On: :27 Request TSH (THYROID STIMULATING HORMONE) (78350)Indication: Post-menopausal bleeding On: :37 Request PROLACTIN (69879)Indication: Post-menopausal bleeding On: :37 Request HEPATIC FUNCTION PANEL (22123)Indication: Hyperglyceridemia On: :05 Request LIPOPROTEIN, BLD, BY NMR (36352)Indication: Hyperglyceridemia On: :04 Request CBC, Platelets & Auto Diff (79868)Indication: Thrombocytopenia, unspecified On: :04 Request Comments: citrate tube Potassium Serum (48202)Indication: Hypokalemia On: 26-Zpn-901440:36 Request Planned Encounters Medical; [facility]ness Exam (DB Nurse) - On: 26-Jul-2018 8:00 [facility] SUZY Spencer; [facility] Exam (Doctor) - On: 16-Aug-2018 8:00 [facility] Kelly Hannah MD, MD, Dana M Planned Procedures EKG (60807)By: Kelly Hannah MD On: 02-Dec-2017 Kelly Espinal MD Radiology - Foot - LeftBy: Brielle On: 12-Aug-2017 Kelly Beltrán MD, MD, Dana M TDAP VACCINE >7 IM (48274)By: On: 22-Jul-2017 Kelly Espinal MD, MD, Dana Comments: tdap 0.5mL prefilled syringelot:2LN28uih:10/2019L DELT IMpt 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 pericardial fluid EKG (56376)By: Kelly Hannah MD On: 04-Sep-2016 Intent Kelly Hannah MD Comments: see scanned document of test done to see results reviewed today with patient Bone Density StudyBy: Brielle FLYNN, On: 09-Jun-2016 Intent Kelly Hernandez MD Kenalog Injection, 10 mgm On: 21-Apr-2016 Intent (J3301)By: Kelly Hannah MD Comments: buupivacaine lot [id number] 06-21-17 kenalog [id number] 09-05 Kelly Hannah MD DOPPLER ULTRASOUND OF RIGHT UPPER On: 20-Apr-2016 Intent EXTREMITY FOR VENOUS THROMBOEMBOLISM (13389)By: Kelly Hannah MD, MD, Dana M MAMMOGRAM, SCREENING, BOTH BREAST On: 27-Feb-2016 Intent (87112)By: Kelly Hannah MD, MD, Dana M Venous Doppler - BothBy: Brielle FLYNN, On: 06-Dec-2015 Intent Kelly Hernandez MD Comments: lower legs rule out DVT ADMINISTRATION OF INFLUENZA VIRUS On: 18-Apr-2015 Intent VACCINE (G0008)By: Kelly Hannah MD Comments: Lot:[id number]:IMLocation:Rt deltoiiddose: .5mlGiven by:Kelly Potter MD FLU VAC, SPLIT, >3 YEARS, INTRAMUSC On: 18-Apr-2015 Intent (27439)By: Kelly Hannah MD Comments: Lot #:[id number] date:Amount given:0.5mlRoute: IMSite given:L DltdGiven by: Peyton CHAMPION and ABN signed Quad Flu Kelly Hannah MD BILATERAL MAMMOGRAMS (84689)By: On: 05-Nov-2014 Intent Kelly Hannah MD, MD, Dana M CT - Chest (IV Contrast Needed)By: On: 23-Jul-2014 Intent Kelly Hannah MD, MD, Dana M COMPUTED TOMOGRAPHY ANGIOGRAPHY OF On: 23-Jul-2014 Intent CHEST WITH AND WITHOUT CONTRAST Comments: rule out PE (84015)By: Kelly Hannah MD, MD, Dana M EKG (71043)By: Lindsey Verde DO On: 05-Jul-2014 Intent Comments: sinus johanny with no chg MAMMOGRAM, SCREENING, BOTH BREAST On: 26-Apr-2014 Intent (81687)By: Kelly Hannah MD, MD, Dana M BILATERAL MAMMOGRAMS (25557)By: On: 27-Mar-2014 Intent Kelly Hannah MD, MD, Dana M IMMUNIZ ADMNIN, 1 VAC, SNGL/COMBO On: 27-Mar-2014 Intent (08128)By: Kelly Hannah MD Comments: Lot #[id number]-[id number] dltd, IMDose prefilled syringegiven by:MLongJOENVIS and ABN signed Kelly Hannah MD FLU VAC, SPLIT, >3 YEARS, INTRAMUSC On: 27-Mar-2014 Intent (00807)By: Kelly Hannah MD, MD, Dana M Eprescribed prescriptions (G8553)By: On: 10-Oct-2013 Intent Kelly Hannah MD, MD, Dana M Phenergan Injection, up to 50 mg On: 22-Sep-2013 Intent (J2550)By: Nona Whiting CNP Comments: [id number], IM Nyla, [employer]ING MACHINE TENDER INFUSION, NORMAL SALINE SOLUTION , On: 22-Sep-2013 Intent 1000 CC (Special Coverage Instructions Apply. See MCM: 2049) (J7030)By: Nona Whiting CNP HYDRATION IV INFUSION, INIT On: 22-Sep-2013 Intent (21346)By: Nona Whiting CNP Eprescribed prescriptions (G8553)By: On: 10-Jul-2013 Intent Nathalie Nicole Breast Screening - BilateralBy: On: 06-Feb-2013 Intent Kelly Hannah MD, MD, Dana M IMMUNIZ ADMNIN, 1 VAC, SNGL/COMBO On: 06-Feb-2013 Intent (02432)By: [place] (03133)By: Tj, On: 06-Feb-2013 Intent SUZY Ultrasound - Abdomen Complete & On: 18-Jan-2013 Intent PelvisBy: Nona Whiting CNP EKG (63562)By: Kelly Hannah MD On: 12-Jul-2012 Intent Kelly Hannah MD Comments: see scanned document of test done to see results reviewed today with patient Eprescribed prescriptions (G8553)By: On: 12-Jul-2012 Intent 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, Nyla L MAMMOGRAM, SCREENING, BOTH BREASTS On: 06-Oct-2011 Intent (11914)By: Kelly Hannah MD Comments: 11-04-11 Kelly Hannah MD MAMMOGRAM, SCREENING, BOTH BREASTS On: 28-Nov-2010 Intent (73229)By: Kelly Hannah MD, MD, Dana M MAMMOGRAM, SCREENING, BOTH BREASTS On: 23-Oct-2010 Intent (19630)By: Kelly Hannah MD, MD, Dana M EEGBy: Lindsey Verde DO On: 20-Aug-2010 Intent EKG (69672)By: Kelly Hannah MD On: 20-Dec-2009 Intent Kelly Hannah MD EKG (67588)By: Kelly Hannah MD On: 17-Jan-2009 Intent Kelly Hannah MD MAMMOGRAM, SCREENING, BOTH BREASTS On: 17-Jan-2009 Intent (38859)By: Kelly Hannah MD, MD, Dana M Pulse Oximetry (38511)By: Yung, On: 04-Jul-2008 Intent Gabriela Comments: 98% Phenergan Injection, up to 50 mg On: 25-Apr-2008 Intent (J2550)By: Nona Whiting CNP Comments: 25mg given IMAmt: 1mlLot: [id number]: 03/2010Route: IMSite: left hipTolerated: wellGiven By: NATASHA Plata INFUSION, NORMAL SALINE SOLUTION , On: 25-Apr-2008 Intent 1000 CC (Special Coverage Comments: IV Therapy initiated (Hamzah Black LPN)22G, 1inchSite: right wristTolerated: wellB. NATASHA Mckinnon Instructions Apply. See MCM: 2048) (J7030)By: Nona Whiting CNP HYDRATION IV INFUSION, INIT On: 25-Apr-2008 Intent (27385)By: Nona Whiting CNP FLU VAC, SPLIT, >3 YEARS, INTRAMUSC On: 21-May-2006 Intent (52914)By: SUZY Spencer IMMUNIZ ADMNIN, 1 VAC, SNGL/COMBO On: 21-May-2006 Intent (80911)By: SUZY Spencer Planned Medications INFUSION, NORMAL SALINE SOLUTION , 1000 CC Ordered: 22-Sep-2013 Pending Nona Whiting CNP INJECTION, TRIAMCINOLONE ACETONIDE, NOT OTHERWISE SPECIFIED, 10 MG Ordered: 21-Apr-2016 Pending Kelly Hannah MD, MD, Dana M INJECTION, TRIAMCINOLONE ACETONIDE, NOT OTHERWISE SPECIFIED, 10 MG Ordered: 15-Feb-2017 Pending Kelly Hannah MD, MD, Dana M Phenergan 50 MG/ML Injection Solution Ordered: 22-Sep-2013 [...] for Tdap vaccination (Renamed from Need for renbkqtgrf-mjgxngx-loqafpfvr (Tdap) vaccine, adult/adolescent), Thrombocytopenia, unspecified Comprehensive Internal [...] Cold Symptoms: Pt just flew home from [place] yesterday.- yellow green nasal discharge- sx for [...]
--- OUTSIDE RECORDS SUMMARY | 2018-07-14 07:41 | XMS RPT_ITS | Continuity of Care Document ---
:1950 Author Organization [facility] Address [facility] [facility] [facility] [address] [place] [address] Phone Care Team Providers Name Role Phone [...] depression lost job was in . lost [employer] and she has to drive around. life withsomeone OCD, hoarder. on ambien for sleep per Dr. coates. Wellbutrin start but had insomni a in past. working with [employer]. doing okay on incresae welbutrin.tried Effexor, paxil [...] adipex and topamax. 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 [...] 0 days Quantity: 30 {Tablet} Refills: 5 Ordered:02-Nov-2017 Brielle FLYNN, Kelly Cespedes MD Start : 02-Nov-2017 Active Crestor 5 MG Oral Tablet 1 [...] 18-Apr-2015 End : 19-Apr-2015 Inactive BD Disp [place] 30G X 1/2 Miscellaneous 1 (one) Misc [...] Inactive Comments:Medication taken as needed. called to [facility] 07-30-09 erussell disp 4 ounces no refills [...] : 20-Dec-2009 End : 02-May-2010 Inactive NYSTATIN, 089303EYBE/ML (Mouth/Throat Suspension) 15 Suspension qid swish and swallow for 0 days Quantity: 450 {Milliliter} Refills: 0 Ordered:20-Aug-2010 Suzette Black LPN Start : 04-Aug-2010 End : 20-Aug-2010 Inactive PANTOPRAZOLE SODIUM, 40MG (Oral Tablet Delayed Release) 1 (one) Tablet DR daily for 0 days Quantity: 30 {Tablet} Refills: 6 Ordered:06-Dec-2015 SUZY Spencer Start : 20-Apr-2015 End : 06-Dec-2015 Inactive Pen [place] 5/16 31G X 8 MM Miscellaneous 1 [...] Leanne Marie Start : 29-Jul-2009 Inactive ZOSTAVAX, 67110ZWX/0.65ML (Subcutaneous Solution Reconstituted) uad For Solution one time SQ dose for 0 days Quantity: 1 {For_Solution} Refills: 0 Ordered:05-Jun-2013 SUZY Sepncer Start : 06-Feb-2013 End : 05-Jun-2013 Inactive [...] epig was in hospital and work up [facility] superintendent house and stress test. ppi and carafate helping. [...] for Tdap vaccination (Renamed from Need for ytrhbuvjkp-tgzysmo-hhluxugaw (Tdap) vaccine, adult/adolescent) (Z23, V06.1) Status: Resolved [...] 2007, 2013 bilateral LEFT HEART CARDIAC CATH (63406) Completed Comments: Dr. Alexander nasal abscess I and D 04-30 Completed Date Value Details 03-Mar-2018 Inital Evaluation (1) - PT Result: Comments: See Note; NOTES: [facility] [address] [place] [address] Fax REHABILITATION SERVICES INITIAL EVALUATION MR#: [id number] Acct: [id number] Name: DIANA ESCUDERO Rep #: [id number] : 1950 68 From: Lazaro Jackson DPT Referring Dr.: GENOVEVA Myers Status: REG RCR Insurance: [employer] SELF PAY INSURANCE Patient's Visit Information [...] pain (8/10) at rest. 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 Please let me know if there are questions or concerns regarding this plan of care. Physician Signature: Date: <Electronically signed by Lazaro Jackson DPT&amp ;#62; 03/03/18 5290 CC: GENOVEVA Myers; Kelly Hannah MD CLS Signed For Medicare only, by signing this I certify the plan of care. Physicians Signature Date 16-Feb-2018 12 Lead Electrocardiogram Result: Comments: See Note; NOTES: [facility] Cardiovascular Services [address] [place] [address] 12 Lead EKG 02/14/18 1459 MR#: [id number] Acct: [id number] Name: DIANA ESCUDERO Rep #: [id number] : 1950 68 From: Harris Brandt MD [...] Int : 401 ms Sinus bradycardia Inferior ID, age undeterm ined, cannot be excluded Confirmed by KEVIN FLYNN, HARRIS ([id number]), video news editor NA DOWELL (56) on 02/16/2018 1:34:57 PM Referred By: BRIEN Confirmed By:HARRIS BRANDT MD 02/16/18 1335 Date __ Harris Brandt MD CC: Kelly Hannah MD; Kasi Worley MD Signed 15-Feb-2018 Emergency Department Summary Result: Comments: See Note; NOTES: [facility] Medical Records Department [address] [place] [address] Emergency Department Summary 02/14/18 1636 MR#: [id number] Acct: [id number] Name: DIANA ESCUDERO Rep #: [id number] : 1950 68 From: Kasi Worley MD [...] score 1. This note was generated with [employer] dictation software. It may contain incorrect words, [...] your Primary Care Provider. Call [facility] ([phone]) or report to the closest Emergency Room. Call 911 if necessary. 02/15/18 0046 <Electronically signed by Jose Daniel Worlye MD> Date Kasi Worley MD Cosigner Signature (If Indicated): Date CC: Kelly Hannah MD 14-Feb-2018 Venous Duplex Lower Extremity Result: Comments: See Note; NOTES: [facility] Cardiovascular Services [address] [place] [address] Venous Duplex US, Unilateral 02/14/18 1549 MR#: [id number] Acct: [id number] Name: DIANA HICKMAN OLGA Rep #: [id number] : 1950 68 From: Abdoulaye Landa MD [...] Dictated: 0 02/14/18 1549 Date Transcribed: 02/14/181740 Spa Attendant: Signed 14-Feb-2018 Chest 1 View (Portable) Result: Comments: See Note; NOTES: [facility] Imaging Services [address] [place] [address] Chest 1 View (Portable) MR#: [id number] Acct: [id number] Name: DIANA ESCUDERO Rep #: [id number] : 1950 F 68 From: Aaron Salgado MD PCP: Kelly Hannah MD Status: [facility] ER Study: Chest 1 View (Portable) Date of Exam: 02/14/18 Exam# [id number] Ordering Dr: Kasi Worley MD STUD Y: [...] Aaron Salgado MD at 15:52 EDT Tel [phone], Service support , CC: Kelly Salgado; Kasi Worley MD Spa Attendant: Signed 24-Jan-2018 Cardiology Visit Report Result: Comments: See Note; NOTES: [facility] [address] [place] [address]. [address] [place] [address] OFFICE VISIT Date of Service: 01/24/18 MR#: [id number] Acct: [id number] Name: DIANA ESCUDERO OLGA Rep #: [id number] : 1950 Provider: Puneet Alexander MD Age/Sex: 67/F Location[facility] Status: Signed HPI HPI Chief Complaint: [...] Visit Reasons: [address] [facility] Required: No Allergies simvastatin [From [...] PO QDAY 01/24/18 [History Confirmed 01/24/18] [facility] Medical History Obstructive sleep apnea (Chronic) History of pulmonary embolism (Chr onic) Atherosclerosis of coronary artery of [place] heart without angina pectoris (Chronic) Hypertension (Chronic) [...] Plan 1. Atherosclerosis of coronary artery of [place] heart without angina pectoris I25.10 Non Obs [...] 3 Diagnoses Atherosclerosis of coronary artery of [place] heart without angina pect ranulfo I25.10 Hyperlipidemia E78.5 Coding Level of Care Code Off vis,est,level 3 Diagnoses Atherosclerosis of coronary artery of [place] heart without angina pectoris I25.10 Hyperlipidemia E78.5 12/06 1536 <Electronically signed by Puneet Alexander MD> Date Puneet Alexander MD [facility] Signature: Date (if applicable) CC: Kelly Hannah MD 12-Aug-2017 Foot min 3 Views Result: Comments: See Note; NOTES: [facility] Imaging Services [address] [place] [address] Foot min 3 Views MR#: [id number] Acct: [id number] Name: DIANA ESCUDERO OLGA Rep #: [id number] : 1950 F 67 From: Aaron Salgado MD PCP: Kelly Hannah MD Status: REG CLI Study: Foot min 3 Views Date of Exam: 08/12/17 Exam# [id number] Ordering Dr: Kelly Hannah MD STUDY: X-RAY [...] Salgado MD 08/08/21 at 14:14 EST Tel [phone], Service support , CC: Kelly Hannah MD Spa Attendant: Signed 05-Aug-2017 TXT - Blood Flow Screening Result: Comments: See Note; NOTES: [facility] Cardiovascular Services [address] [place] [address] 08/05/17 0756 MR#: [id number] Acct: [id number] Name: DIANA ESCUDERO Rep #: [id number] [...] Dictated: 08/05/17 0756 Date T ranscribed: 08/05/172129 Spa Attendant: Signed 15-Jul-2017 Cardiology Visit Report Result: Comments: See Note; NOTES: [facility] [address] [place] [address] OFFICE VISIT Date of Service: 07/15/17 MR#: [id number] Acct: [id number] Name: DIANA ESCUDERO OLGA Rep #: [id number] : 1950 Provider: Puneet Alexander MD Age/Sex: 67/F Location: [facility] Status: Signed HPI 6 M [...] Hyperlipidemia (Chronic) Atherosclerosis of coronary artery of [place] heart without angina pectoris (Chronic) Blood glucose [...] she begin an extra I's program in [place] in order to facilitate and improve her [...] (CAD), BILAT Result: Comments: See Note; NOTES: [facility] Imaging Services [address] [place] [address] SCREENING MAMM (CAD), BILAT MR#: [id number] Acct: [id number] Name: DIANA ESCUDERO OLGA Rep # : [id number] : 1950 F 67 From: Aaron Salgado MD PCP: Kelly Hannah MD Status: REG CL Study: SCREENING MAMM (CAD), BILAT Date of Exam: 04/19/17 Exam# [id number] Ordering Dr: Kelly Hannah MD MAMMOGRAPHY - [...] delay biopsy of a clinically suspicious abnormality. [id number] Electronically Signed: Aaron Salgado MD at 8:33 EDT Tel [phone], Service support , CC: Kelly Hannah MD Spa Attendant: Signed 16-Sep-2016 Echocardiogram Complete Result: Comments: See Note; NOTES: [facility] Cardiovascular Services [address] [place] [address] Echo Complete 09/16/16 0956 MR#: [id number] Acct: [id number] Name: DIANA ESCUDERO Rep #: [id number] : 1950 66 From: Emil Craven MD [...] Dictated: 09/16/16 0956 Date Transcribed: 09/16/16 1145 Spa Attendant: Signed 04-Sep-2016 CTA Chest W/WO Contrast Result: Comments: See Note; NOTES: [facility] Imaging Services [address] [place], [place] [address] [place] [address] Verdana 4d CTA Chest W/WO Contrast MR#: [id number] Acct: [id number] Name: DIANA ESCUDERO Rep #: [id number] : 1950 F 66 From: Aaron Salgado MD PCP: Kelly Hannah MD Status: REG ER Study: CTA Chest W/WO Contrast Date of Exam: 09/04/16 Exam# [id number] Ordering Dr: Leanne Finn STUDY: CTA CHEST [...] Burak Salgado MD at 11:40 EDT Tel [phone], Service support [phone], CC: Leanne Finn MD; Kelly Hannah MD Spa Attendant: Signed 23-Jun-2016 Dexa Bone Density Study (HP) Result: Comments: See Note; NOTES: [facility] Imaging Services [address] [place] [address] Verdana 4d Dexa Bone Density Study (HP) MR#: [id number] Acct: [id number] Name: EDUARDO ESCUDERO Rep #: [id number] : 1950 F 66 From: Aaron Salgado MD PCP: Kelly Hannah MD Status: REG CLI Study: Dexa Bone Density Study (HP) Date of Exam: 06/23/16 Exam# [id number] Ordering Dr: Kelly Posey MD STUDY: DUAL [...] Aaron Salgado MD at 16:05 EST Tel [phone], Service support [phone], CC: Kelly Hannah MD Spa Attendant: Signed 20-Apr-2016 Venous Duplex Lower Extremity Result: Comments: See Note; NOTES: [facility] Cardiovascular Services [address] [place] [address] Venous Duplex US, Unilateral 04/20/16 1428 MR#: [id number] Acct: [id number] Name: DIANA ESCUDERO Rep #: [id number] : 1950 66 From: Marcus Garza MD [...] Date Dictated: 04/20/16 1428 Date Transcribed: 04/20/162149 Spa Attendant: Signed 23-Mar-2016 Bilat Scrn Digital AND CAD Result: Comments: See Note; NOTES: [facility] Imaging Services [address] [place] [address] Verdana 4d Bilat Scrn Digital AND CAD MR#: [id number] Acct: [id number] Name: ANGELA ESCUDERO OLGA Rep #: [id number] : 1950 F 66 From: Aaron Salgado MD PCP: Kelly Hannah MD Status: REG CLI Study: Bilat Scrn Digital AND CAD Date of Exam: 03/23/16 Exam# [id number] Ordering Dr: Kelly Resendiz i, MD MAMMOGRAPHY [...] delay biopsy of a clinically suspicious abnormality. [id number] Electronically Signed: Aaron Salgado MD at 7:51 EDT Tel [phone], Service support [phone], CC: Kelly Hannah MD Spa Attendant: Signed 02-Jan-2016 Venous Duplex Lower Extremity Result: Comments: See Note; NOTES: [facility] Cardiovascular Services [address] [place] [address] Venous Duplex US - Johnny Extrem 01/02/16 1454 MR#: [id number] Acct: [id number] Name: DIANA ESCUDERO Rep #: [id number] : 1950 65 From: Marcus Garza MD [...] Date Dictated: 01/02/16 1454 Date Transcribed: 01/02/161653 Spa Attendant: Signed 12-Dec-2015 12 Lead Electrocardiogram Result: Comments: See Note; NOTES: [facility] Cardiovascular Services [address] [place] [address] 12 Lead EKG 12/03/151124 MR#: [id number] Acct: [id number] Name: DIANA [address]OW[address] OLGA Rep #: [id number] : 1950 65 From: Puneet Alexander MD [...] normal ECG Confirmed by PUNEET ALEXANDER ([id number]), video news editor NA DOWELL (56) on 12/09/2015 10:54:37 AM Referred By: KIRT Confirmed By:PUNEET ALEXANDER 12/09/15 1054 Date ___ Puneet Alexander MD CC: Kelly Hannah MD Date Dictated: 12/03/15 1125 Date Transcribed: 12/03/151124 Spa Attendant: Signed 03-Dec-2015 Emergency Department Summary Result: Comments: See Note; NOTES: [facility] Medical Records Department [address] [place] [address] Emergency Department Summary MR#: [id number] Acct: [id number] Name: DIANA ESCUDERO Rep #: [id number] : 1950 65 From: Leanne Finn MD [...] PCP. DIAGNOSIS: Pleurisy. Leanne Finn MD T: [facility] JOB: [id number] 12/03/15 1536 <Electronically signed by Leanne Finn MD& #62; Date Leanne Finn MD Cosigner Signature (If Indicated): Date CC: Kelly Hannah MD Da te Dictated: 12/03/151356 Date Transcribed: 12/03/151356 Spa Attendant: Signed 03-Dec-2015 Discharge Instruction Result: Comments: See Note; NOTES: [facility] Medical Records Department [address] [place], [place] [address] [address] Discharge Instruction 12/03/151353 MR#: [id number] Acct: [id number] Name: DIANA ESCUDERO OLGA Rep #: [id number] : 1950 65 From: Leanne Finn MD [...] problems, contact your doctor. Call [facility] ([phone]) or report to the closest Emergency Room. Call 911 if necessary. 12/03/15 135 &# 60;Electronically signed by Leanne Finn MD> Date Leanne Chakraborty Signature (If Indicated): Date CC: Kelly Hannah MD 03-Dec-2015 CTA Chest W/WO Contrast Result: Comments: See Note; NOTES: [facility] Imaging Services [address] [place] [address] Verdana 4d CTA Chest W/WO Contrast MR#: [id number] Acct: [id number] Name: DIANA MENESES Rep #: [id number] : 1950 F 65 From: Aaron Salgado MD PCP: Kelly Hannah MD Status: REG ER Study: CTA Chest W/WO Contrast Date of Exam: 12/03/15 Exam# [id number] Ordering D r: Leanne Finn MD STUDY: [...] Aaron Salgado MD at 13:37 EDT Tel [phone], Service support [phone], CC: Leanne Finn MD; Kelly Hannah MD Spa Attendant: Signed 24-Jul-2015 Sleep Study Report Result: Comments: See Note; NOTES: [facility] [address] [place] [address] Split Night Sleep Study MR#: [id number] Acct: [id number] Name: Miguel Angel ESCUDERO Rep #: [id number] : 1950 65 From: Jimmy Coates MD [...] version). Please note that a reference to [facility] AHI in this report is consistent with the current Hypopnea definition according to Medicare Criteria and an [facility] AHI reference is consistent wit h the current Hypopnea definition according to the AASM criteria and is recognized by [facility] as the RDI. PROCEDURE: The study was attended continuously by a hematology technician. Monitored parameters inclu ded left and [...] calculated body mass index of 35 and [place] Sleepiness Scale score of 6/20. The patient [...] and heated humidity. SLEEP STUDY DATA: The [facility] split night study began at 1114:07 [...] MAmber. Jimmy Coates MD T: [facility] JOB: [id number] CC: Jimmy Coates MD DD: 08/06 1043 1043 07/24/15 2205 <Electronically signed by Jimmy Coates MD> Date Jimmy Coates MD Co-signature (if appli cable) Date Signed 12-Feb-2015 Chest 1 View (Portable) Result: Comments: See Note; NOTES: [facility] Imaging Services [address] [place] [address] Radiology Report MR#: [id number] Acct: [id number] Name: DIANA ESCUDERO Rep #: [id number] : 1950 F 65 From: Aaron Salgado MD PCP: Kelly Hannah MD Status: PRE ER Study: Chest 1 View (Portable) Date of Exam: 02/12/15 Exam# [id number] Ordering Dr: Kenroy Arciniega MD S SABRINADY: [...] Aaron Salgado MD at 11:08 EDT Tel [phone], Service support [phone], RAD/Chest 1 View (Portable) IMPRESSION: No acut e abnormality is seen. Electronically Signed: Aaron Salgado MD at 11:08 EDT Tel [phone], Service support [phone], CC: Kelly Hannah MD; Kenroy Arciniega MD Spa Attendant: Signed 12-Feb-2015 CTA Chest W/WO Contrast Result: Comments: See Note; NOTES: [facility] Imaging Services [address] [place] [address] CAT Scan Report MR#: [id number] Acct: [id number] Name: DIANA ESCUDERO Rep #: [id number] : 1950 F 65 From: Aaron Salgado MD PCP: Kelly Hannah MD Status: REG ER Study: CTA Chest W/WO Contrast Date of Exam: 02/12/15 Exam# [id number] Ordering Dr: Kenroy Arciniega MD UDY: CTA [...] Aaron Salgado MD at 12:08 EDT Tel [phone], Service support [phone], CC: Kelly Hannah MD; Kenroy Arciniega MD Spa Attendant: Signed 11-Jan-2015 Bilat Scrn Digital AND CAD Result: Comments: See Note; NOTES: [facility] Imaging Services [address] [place] [address] Breast Imaging Report MR#: [id number] Acct: [id number] Name: DIANA ESCUDERO Rep #: [id number] : 1950 F 64 From: Shaan Nunez DO PCP: Kelly Hannah MD Status: REG CLI Study: Bilat Scrn Digital AND CAD Date of Exam: 01/11/15 Exam# [id number] Ordering Dr: Kelly Hannah MD MAMMOGRAPHY - [...] facility within 30 days. According to [employer] [place] [employer], yearly mammograms are recommended starting [...] Signed: Shaan NunezDO at 10:22 EDT Tel [phone], Service support [phone], CC: Kelly Hannah MD Spa Attendant: Signed 23-Jul-2014 CTA Chest W/WO Contrast Result: Comments: See Note; NOTES: [facility] Imaging Services [address] [place] [address] CAT Scan Report MR#: [id number] Acct: [id number] Name: DIANA ESCUDERO Rep #: [id number] : 1950 F 64 From: Aaron Salgado MD PCP: Kelly Hannah MD Status: REG CLI Study: CTA Chest W/WO Contrast Date of Exam: 07/23/14 Exam# [id number] Ordering Dr: Kelly Hannah MD S TUDY: [...] Aaron Salgado MD at 12:47 EST Tel [phone], Service support [phone], CC: Kelly Hannah MD Spa Attendant: Signed 04-Jan-2014 Consultation Result: Comments: See Note; NOTES: [facility] Medical Records Department [address] [place] [address] Consultation 01/04/14 1218 MR#: [id number] Acct: [id number] Name: DIANA ESCUDERO Rep #: [id number] : 1950 63 From: Juancho Foy MD PCP: Kelly Hannah MD Status: REG [facility] Location: [place] [address] Problem List (1) Bradycardia Status: Acute (2) [...] showed sinus bradycardia, normal QRS duration, normal MI interval, normal QT interval, no ischemic hardy [...] PO Q4H PRN PRN #30 tablet 01/04/14 [Dongola 5/325] Surgical History: appendectomy, cholecystectomy, - - Hysterectomy Psychiatric History: No pertinent psych hx 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 Lives: Spouse/ Significant Other Smoking [...] Discharge Instruction Result: Comments: See Note; NOTES: [facility] Medical Records Department [address] [place] [address] Instructions for Home/Discharge Instructions 01/04/14 0731 MR#: [id number] Acc t: [id number] Name: DIANA ESCUDERO Rep #: [id number] : 1950 63 From: Anatoly Diego MD [...] PRN PRN #60 capsule Hydrocodone Bitart/Apap 5-325 [Dongola 5/325] 1 tablet PO Q4H PRN PRN #30 tablet Please Follow Up With: Anatoly Diego When: 2-3 weeks Proposed Discharge Date: 01/05/14 01/04/14 0735 <Electronically signed by Anatoly Diego MD> Date Anatoly Diego MD CC: Kelly Hannah MD 10-Oct-2013 EKG (74494) Comments: see scanned document of test done to see results reviewed today with patient Result: [MEASUREMENTS ANALYSIS] Date of Test: 10/10/2013 08:20:27; Heart Rate: 64; MI Interval: 160; QRS: 90; QT Interval: 394; Corrected QT Interval (QTc): 401; P Wave Western: 50; QRS Wave Western: 5; T Wave Western: 14; Blood Pressure: 122/78 [ECG DIAGNOSTIC STATEMENTS] [...] week Status: Active 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 Status: Active Living Situation: Lives with domestic partner. Comments: , Religious Status: Active No Caffeine Use Status: Active [...] kg/m2 Body Surface Area Calculated 2.13 m2 8-Row-001505:23 Temperature 98.2 f Pulse 70 /min Comments: [...] kg/m2 Body Surface Area Calculated 2.13 m2 4-Sep-47031:17 Pulse 72 /min Comments: Pattern: Regular BP [...] NMR Comments: PATIENT WAS FASTINGPERFORMED BY: [facility] [address] [id number] ([id number]) LP-IR Score 81 (Abnormal) Comments: INSULIN RESISTANCE MARKER <--Insulin Sensitive Insulin Resistant--> Percentile in Reference PopulationInsulin Resistance ScoreLP-IR Score Low 25th 50th 75th High <27 27 45 63 >63LP-IR Score is inaccurate if patient is non-fasting. .The LP-IR score is a laboratory developed i [facility] that has beenassociated with insulin [...] were developed and their performance characteristicsdetermined by [facility] [employer]. These assays have not been cleared by [...] 1600 - 2000 Very High > 2000 06-Oyb-793323:35 Basic Metabolic Profile (BMP) Comments: [facility] [address] [place], [place], [id number] GAP 10 (Normal) Range: 5-15 CO2 30.0 [...] A.D.A. criteria.Please note revised GLUCOSE reference range jehglqecs52/02/2018. 59-Kyt-904447:35 CBC W/Diff, Automated Comments: [facility] [address] [facility] [place], [place], [address] Absolute Lymph 2.44 {X10_3/ul} (Normal) Range: 0.83-4.51 [...] 4.2-5.4 WBC 7.3 K/mm3 (Normal) Range: 4.4-11.0 41-Pce-491130:35 Troponin-I Comments: [facility] [address] [place], [address] TROPONIN-I < 0.015 ng/mL (Normal) Comments: TROPONIN-I EXPECTED VALUES <0.045 Negative 0.045 - 0.590 Consistent with Cardiac Damage > OR = 0.600 Critical Value Not every elevated troponin is indicative of ID. T hesevalues should be used with clinical judgement in examiningthe patient's clinical picture for diagnosis. To establisha diagnosis of ID versus myocardial injury, there must be ademonstrated rise and/ or fall in the troponin values, inaddition to ischemic symptoms, EKG changes, new regionalwall motion abnormality, and/or angiographical evidence. PLEASE NOTE: REFERENCE RANGES EDITED 11/01/1723-Sep-20178:28 Pathology Report Comments: PERFORMED BY: [facility] Bqin0481 [facility] [id number] BY: [facility] Dermatopathology Qiijxlu943 [facility] [address] [place] [address] [id number] Information: [id number] See MATER Comments: Material submitted: .RIGHT HAND BIOPSYClinical history: .BLACK SPOT ON HAND Note (Normal) Diagnosis:BLUE NEVUS.TMZ/09/28/2017Electronically signed: .Mya Fay MD, DermatopathologistGross description: .RECEIVED IN FORMALIN LABELED DIANA ESCUDERO AND PALOMO HAND IS A PUGH SKIN PUNCH BIOPSY MEASURING 3.0 MM IN ANDREW METERAND 2.0 MM THICK WITH A OLIVAS, RAISED AREA 2.5 X 1.5 MM. SUBMITTEDIN TOTO.FUN/TMZPathologist provided ICD-10:D22.61CPT .381851 84-Gys-71551:47 Platelet Count on Comments: PATIENT WAS FASTINGPERFORMED BY: [employer] ([employer]) [facility] [address] [place] [address] [id number] BY: CB [facility] [id number] [facility] [id number] Citrated Bld Plt Count, Citrated Bld 160 {X10E3/uL} (Normal) Range: 150-379 77-Cvg-50085:47 LIPOPROTEIN, BLD, BY NMR Comments: PATIENT WAS FASTINGPERFORMED BY: [employer] ([employer]) [facility] Bskdovuqwq3470 [facility] [id number] BY: [facility] Qhokxy4180 [facility] [id number] Information: PLATELET ON CITRATE BLD [id number] ([id number]) LP-IR Score 85 (Abnormal) Comments: INSULIN RESISTANCE [...] 1600 - 2000 Very High > 2000 40-Cpu-61641:43 Albumin/Creatinine Ratio,Urine Comments: PATIENT NOT FASTINGPERFORMED BY: [facility]6370 [facility] [id number] Alb/Creat Ratio <1.4 {mg/g_creat} (Normal) Range: 0.0-30.0 Albumin, Urine <3.0 ug/mL (Normal) Creatinine, Urine 212.4 mg/dL (Normal) :43 CBC With Differential/Platelet Comments: PATIENT NOT FASTINGPERFORMED BY: [facility]6370 [facility] [id number] Immature Grans (Abs) 0.0 {x10E3/uL} (Normal) Range: [...] Panel (14) Comments: PATIENT NOT FASTINGPERFORMED BY: [facility] BVSaint Barnabas Behavioral Health CenterUhupkw6469 [facility] [id number] ALT (SGPT) 18 [iU]/L (Normal) Range: 0-32 [...] Glucose, Serum 100 mg/dL (Abnormal) Range: 65-99 06-Mfo-05632:43 Urinalysis, Routine Comments: PATIENT NOT FASTINGPERFORMED BY: [employer] [facility] BVSaint Barnabas Behavior[facility] Health CenterWrwfyn0405 [facility] [id number] Microscopic Examination MICNIP (Normal) Comments: Microscopic not indicated and not performed. Nitrite, Urine Negative (Normal) Urobilinogen,Semi-Qn 0.2 mg/dL (Normal) Range: 0.2-1.0 Bilirubin Negative (Normal) Occult Blood Negative (Normal) Ketones Negative (Normal) Glucose Negative (Normal) Protein Negative (Normal) WBC Esterase Negative (Normal) Appearance Clear (Normal) Urine-Color Yellow (Normal) pH 6.0 (Normal) Range: 5.0-7.5 Specific [place] 1.025 (Normal) Range: 1.005-1.030 67-Rok-251622:21 FLU A+B DIRECT AG, (RAPID) (46953) FLU A+B DIRECT AG, (RAPID) negative (Normal) :32 Potassium Serum (63953) Comments: PATIENT NOT FASTINGPERFORMED BY: [employer] [id number] BY: [address] [id number] Potassium, Serum 3.9 mmol/L (Normal) Range: 3.5-5.2 :32 Magnesium (69596) Comments: PATIENT NOT FASTINGPERFORMED BY: [employer] [id number] BY: [address] [id number] Magnesium, Serum 2.0 mg/dL (Normal) Range: 1.6-2.3 :32 CCP ANTIBODY (97391) Comments: PATIENT NOT FASTINGPERFORMED BY: [employer] [id number] BY: [address] [id number] CCP Antibodies IgG/IgA 10 {units} (Normal) Range: 0-19 Comments: Negative <20 Weak positive 20 - 39 Moderate positive 40 - 59 Strong positive >59 :32 TSH (46904) Comments: PATIENT NOT FASTINGPERFORMED BY: [employer] [id number] BY: [address] [id number] TSH 3.380 {uIU/mL} (Normal) Range: 0.450-4.500 :32 SED RATE ERYTHROCYTE Comments: PATIENT NOT FASTINGPERFORMED BY: [place] 1443870 [facility] [id number] BY: [address] [id number] (81297) Sedimentation Rate-Westergren 14 mm/h (Normal) Range: 0-40 :32 C-REACTIVE PROTEIN (06695) Comments: PATIENT NOT FASTINGPERFORMED BY: [facility]6370 [facility] [id number] BY: [address] [id number] C-Reactive Protein, Quant 3.5 mg/L (Normal) Range: 0.0-4.9 :32 JESUS ALBERTO (ANTINUCLEAR ANTIBODY) Comments: PATIENT NOT FASTINGPERFORMED BY: [facility]6370 [facility] [id number] BY: [address] [id number]; fu 3-30 (75882) JESUS ALBERTO Direct Negative (Normal) 11-Xcx-348038:37 Basic Metabolic Profile (BMP) Comments: 'TROP' Serial specimen #1, #2, #3, or #4: 1[facility] [address]domqznqj[address] [place], [address] GAP 8 (Normal) Range: 5-15 CO2 29.0 [...] <126 mg/dLsuggests IMPAIRED HOMEOSTASIS per A.D.A. criteria. 34-Nnt-143766:37 CBC W/Diff, Automated Comments: [facility] Bdqrzejpht[address] [place], [address] Absolute Lymph 1.93 {X10_3/ul} (Normal) Range: 0.83-4.51 [...] 4.2-5.4 WBC 5.9 K/mm3 (Normal) Range: 4.4-11.0 18-Mwn-336508:37 Troponin-I Comments: 'TROP' Serial specimen #1, #2, #3, or #4: 1[facility] Wevgxymlcz[address] [place], [address] TROPONIN-I < 0.02 ng/mL (Normal) Comments: TROPONIN-I EXPECTED VALUES <0.05 NEGATIVE 0.06 - 0.59 AT RISK OF ID > OR = 0.60 SUGGEST ID [id number] HEPATITIS C ANTIBODY (28689) Comments: CLient bill for this; PATIENT NOT FASTINGPERFORMED BY: LabCoSaint Barnabas Behavioral Health CenterAdbcxi4207 [facility] [id number] Hep C Virus Ab <0.1 {s/co_ratio} (Normal) Range: 0.0-0.9 Comments: Negative: < 0.8 Indeterminate: 0.8 - 0.9 Positive: > 0.9 . The CDC recommends that a positive HCV antibody result be followed up with a HCV Nucleic Acid Amplification test (013277). 60-Wlx-531483:32 CBC W/Diff, Automated Comments: [facility] Frjzgvvdhj4[address] [place], [address] Absolute Lymph 2.31 {X10_3/ul} (Normal) [...] 1'CKMB' Serial Specimen #1, #2 or #3? 1[facility] Pisuorhtyp[address] [place], [place], [address] GAP 7 (Normal) Range: 5-15 CO2 28.0 [...] 1'CKMB' Serial Specimen #1, #2 or #3? [address] [place] [address] Tjttcdllfs8499 [facility] [place], [address] CKRI 1.1 % (Normal) Range: 0.0-1.4 Comments: RELATIVE INDEX >1.5% IS PRESUMPTIVELY POSITIVE CPKMB 1.7 ng/mL (Normal) Range: 0.0-5.0 Comments: CK-MB and RI Interpretation MB Relative Index Non-AMI <or= 5 NA Indeterminate > 5 <or= 4 AMI > 5 > 4 CPK TOTAL 158 U/L (Normal) Range: 26-192 Comments: Moderate Hemolysis, Result may be falsely increased. 12-Yvg-609168:08 Troponin-I Comments: Serial Specimen #1, #2 or #3? 1'TROP' Serial specimen #1, #2, #3, or #4: 1'CKMB' Serial Specimen #1, #2 or #3? [address] [place] [address] [address]1958 [place], [place], [id number] TROPONIN-I < 0.02 ng/mL (Normal) Comments: TROPONIN-I EXPECTED VALUES <0.05 NEGATIVE 0.06 - 0.59 AT RISK OF ID > OR = 0.60 SUGGEST ID :30 CBC (Auto) (23837) Comments: PATIENT WAS FASTINGPERFORMED BY: LabCoSaint Barnabas Behavioral Health CenterVkdsko5011 [facility] [id number] Platelets 165 {x10E3/uL} (Normal) Range: 150-379 RDW 13.8 % (Normal) Range: 12.3-15.4 MCHC 33.1 g/dL (Normal) Range: 31.5-35.7 MCH 31.2 pg (Normal) Range: 26.6-33.0 MCV 94 fL (Normal) Range: 79-97 Hematocrit 43.2 % (Normal) Range: 34.0-46.6 Hemoglobin 14.3 g/dL (Normal) Range: 11.1-15.9 RBC 4.59 {x10E6/uL} (Normal) Range: 3.77-5.28 WBC 6.6 {x10E3/uL} (Normal) Range: 3.4-10.8 :30 Metabolic Panel, Comments: PATIENT WAS FASTINGPERFORMED BY: [employer] BVSaint Barnabas Behavioral Health CenterEgxydy5809 [facility] [id number] Information: [id number] Comprehensive (59065) ALT (SGPT) 14 [iU]/L (Normal) Range: 0-32 [...] mg/dL (Normal) Range: 65-99 :30 Lipid Panel (52130) Comments: PATIENT WAS FASTINGPERFORMED BY: [facility]Hel[facility]6370 [facility] [id number] LDL/HDL Ratio 3.6 {ratio_units} (Abnormal) Range: 0.0-3.2 [...] Cholesterol, Total 218 mg/dL (Abnormal) Range: 100-199 13-Zjr-93820:30 Hemoglobin Glyclated (HGB A1C) Comments: PATIENT WAS FASTINGPERFORMED BY: YaSabe70 [facility] [id number]; apt[address] 4[address] (17653) Hemoglobin A1c 5.8 % (Abnormal) Range: 4.8-5.6 Comments: . Pre-diabetes: 5.7 - 6.4 Diabetes: >6.4 Glycemic control for adults with diabetes: <7.0 10-Zbt-544408:59 Urinalysis, Office (50075) UA - LEUKOCYTE ESTERASE Negative (Normal) UA - NITRITE Positive (Normal) URINE UROBILINGN FRANKO TIMED 2 mg/dL (Normal) UA - PROTEIN Negative mg/dL (Normal) UA - PH 5 (Abnormal) UA - BLOOD Negative (Normal) UA - SPECIFIC GRAVITY 1.020 (Normal) UA - KETONES Negative mg/dL (Normal) UA - BILIRUBIN Negative (Normal) UA - GLUCOSE Negative (Normal) 30-Ssz-26865:00 Anticardiolip Ab, IgA/G/M, Comments: PATIENT WAS FASTINGPERFORMED BY: Cmed Cczvoh8178 [facility] [id number] BY: Cmed QYM0413 [facility] [id number] Qn Anticardiolipin Ab,IgA,Qn <9 {APL_U/mL} (Normal) Range: [...] Positive: >20 - 80 High Positive: >80 76-Xtw-354020:37 Basic Metabolic Profile (BMP) Comments: Serial Specimen #1, #2 or #3? 1'TROP' Serial specimen #1, #2, #3, or #4: 1Test performed at:[facility] [address] [place] [address] GAP 7 (Normal) Range: 5-15 [...] Comments: Please note revised CREATININE reference range josigtnik38/22/2015. BUN 16 mg/dL (Normal) Range: 7-18 GLU 134 mg/dL (Abnormal) Range: 70-110 Comments: Fasting Glucose result greater than or equal to 126 mg/dLsuggests DIABETES MELLITUS per A.D.A. criteria. 89-Tzi-216096:37 CBC W/Diff, Automated Comments: Test performed at:[facility] Miqhawttiw1058 [facility] [place] [address] Absolute Lymph 2.35 {X10_3/ul} (Normal) [...] 4.2-5.4 WBC 7.4 K/mm3 (Normal) Range: 4.4-11.0 01-Rvd-353657:37 CK-MB Quantitative and Index Comments: Serial Specimen #1, #2 or #3? 1'TROP' Serial specimen #1, #2, #3, or #4: 1Test performed at:[facility] [address]uly[address] [place] [address] CPKMB 0.8 ng/mL (Normal) Range: 0.0-5.0 Comments: CK-MB and RI Interpretation MB Relative Index Non-AMI <or= 5 NA Indeterminate > 5 <or= 4 AMI > 5 > 4 CPK TOTAL 80 U/L (Normal) Range: 26-192 56-Oqm-234503:37 Troponin-I Comments: Serial Specimen #1, #2 or #3? 1'TROP' Serial specimen #1, #2, #3, or #4: 1Test performed at:[facility] Lbaogtlnvh[address] [place] [address] TROPONIN-I < 0.02 ng/mL (Normal) Comments: TROPONIN-I EXPECTED VALUES <0.05 NEGATIVE 0.06 - 0.59 AT RISK OF ID > OR = 0.60 SUGGEST ID [id number] D-Dimer (11871) Comments: PATIENT NOT FASTINGPERFORMED BY: Ubookoo[address] [id number] BY: Cmed Wfdiru8478 [facility] [id number] D-Dimer 0.59 {mg/L_FEU} (Abnormal) Range: 0.00-0.49 Comments: In conjunction with a non-high clinical probability assessment, anormal (<0.50 mg/L FEU) result excludes deep vein thrombosis (DVT)and pulmonary embolism (PE) with high sensitivity. 96-Jtr-93699:00 LIPID PANEL (21970) Comments: PATIENT WAS FASTINGPERFORMED BY: CB LabAVOB Bdcsgu1242 [facility] [id number] BY: LabAVOB BNM3982 [facility] [id number] LDL/HDL Ratio 3.1 {ratio_units} (Normal) Range: 0.0-3.2 [...] Cholesterol, Total 177 mg/dL (Normal) Range: 100-199 55-Aju-222804:59 Protein S Profile Comments: PATIENT NOT FASTINGPERFORMED BY: [employer] [address] [id number] BY: [employer] BVSaint Barnabas Behavioral Health CenterGwioyd3736 [facility] [id number] Inf ormation: [id number] (53198) Protein S-Functional 119 % (Normal) Range: 60-145 Protein S, Free 108 % (Normal) Range: 56-124 Protein S, Total 137 % (Normal) Range: 58-150 83-Icl-964988:59 Protein C Profile Comments: PATIENT NOT FASTINGPERFORMED BY: Contactual[address] [id number] BY: Gram[facility] World BVPeter [place] 4565870 [facility] [id number] (12872) Protein C-Functional 120 % (Normal) Range: 74-151 Protein C Antigen 104 % (Normal) Range: 70-140 38-Jyg-20211:00 Homocysteine, Plasma Comments: PATIENT WAS FASTINGPERFORMED BY: [employer] BVPeter [place] 4565870 [facility] [id number] BY: [facility]ualS[facility] Re[facility] XET0838 [facility] [id number] (12040) Homocyst(e)ine, Plasma 11.2 umol/L (Normal) Range: 0.0-15.0 02-Qqs-763133:59 ANTITHROMBIN III ACTIVTY Comments: PATIENT NOT FASTINGPERFORMED BY: [employer] [address] [id number] BY: [employer] BVSaint Barnabas Behavioral Health CenterBmyofe2138 [facility] [id number] (66581) Antithrombin Antigen 94 % (Normal) Range: 75-130 Antithrombin Activity 108 % (Normal) Range: 75-135 82-Kii-351881:59 CLOTTING FACTOR II Comments: PATIENT NOT FASTINGPERFORMED BY: Contactual[address] [id number] BY: [facility] BVSaint Barnab[facility] Behavioral Health CenterWxqbdy7031 [facility] [id number] (46481) Factor II Activity 113 % (Normal) Range: 75-130 32-Vjd-82553:00 Factor V Leiden (16869) Comments: PATIENT WAS FASTINGPERFORMED BY: LabCo Zrihht2606 [facility] [id number] BY: LabCo HAS6645 [facility] [id number] Factor V Leiden FVNEG3 (Normal) Comments: Result: [...] in the workup for venous thrombosis include [id number] mutation in the factor II (prothrombin) gene,protein S and C deficiency, and antithromb in deficiencies.Anticardiolipin antibody and lupus anticoagulant analysismay be appropriate for certain patients, as well ashomocysteine levels. .Contact your local [facility] for information on how to orderadditional testing if desired. .Genetic counselors are available for health care* providers to discuss results at [phone] ([phone]). .Methodology:DNA analysis of the Factor V gene [...] Orta, PhDMichael Singh, PhDNgozi Cardozo, PhD . 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 Compound heterozygosity for the S595Ljqk D2762A variants is unlikely to be of clinical [...] discuss these results with healthcare providers at [phone]. .Methylenetetrahydrofolate reductase (MTHFR) is a ke y enzyme in thefolate pathway and is responsible for the metabolism of homocysteine.There are two common variants in the MTHFR gene, c.655C>T(p.Tmz076Ipq), referred to as C677T, and c.1286A>C (p.G pf119Pjw),referred to as K4802O. Individuals homozygous for C677T (two copiesof the variant), have decreased activity of the MTHFR enzyme and apredisposition to hyperhomocysteinemia, particularly when d eficient infolate. Hyperhomocysteinemia is a risk factor for venous thrombosisand coronary artery disease and is associated with an increased riskof open neural tube defects. The C677T variant reilly s notindependently increase risk of these conditions in the absence ofhyperhomocysteinemia. The B1301M variant is not associated withelevated homocysteine levels unless a C677T variant is also present;h owever, the clinical significance of heterozygosity for both P654Ltpz I2967W is controversial. Population data suggest that these twovariants are not present on the same chromosome, but rare exceptionsh ave been reported of triple variant MTHFR genotypes (ie. homozygousfor one variant and heterozygous for the other). Homozygosity nkcS117O has an estimated frequency of 10% to [...] PhDNgozi Cardozo, PhD :52 HgA1C , Office (00414) HgA1C , Office 5.8 % (Normal) Range: 4.6 - 7.1 :31 CBC With Differential/Platelet Comments: PATIENT WAS FASTINGPERFORMED BY: LabCo Oawpcg6445 [facility] [id number] Information: [id number],[id number] Immature Grans (Abs) 0.0 {x10E3/uL} (Normal) Range: [...] 3.77-5.28 WBC 5.3 {x10E3/uL} (Normal) Range: 3.4-10.8 93-Ppb-80988:31 Comp. Metabolic Panel (14) Comments: PATIENT WAS FASTINGPERFORMED BY: LabCoSaint Barnabas Behavioral Health CenterIewubc5105 [facility] [id number] ALT (SGPT) 18 [iU]/L (Normal) Range: 0-32 [...] Glucose, Serum 103 mg/dL (Abnormal) Range: 65-99 17-Ktn-026590:04 Urinalysis, Office (93960) UA - PH 6.0 (Normal) UA - LEUKOCYTE ESTERASE Negative (Normal) UA - NITRITE Negative (Normal) URINE UROBILINGN FRANKO TIMED 2 mg/dL (Normal) UA - PROTEIN Negative mg/dL (Normal) UA - BLOOD Negative (Normal) UA - SPECIFIC GRAVITY 1.025 (Normal) UA - KETONES Negative mg/dL (Normal) UA - BILIRUBIN Negative (Normal) UA - GLUCOSE Negative (Normal) 71-Bie-21757:51 POTASSIUM SERUM (46587) Comments: today; PATIENT NOT FASTINGPERFORMED BY: LabCoSaint Barnabas Behavioral Health CenterApgcvg5027 [facility] [id number] Information: [id number] Potassium, Serum 3.8 mmol/L (Normal) Range: 3.5-5.2 4-Vip-202117:30 Basic Metabolic Profile (BMP) Comments: 'TROP' Serial specimen #1, #2, #3, or #4: 1'CKMB' Serial Specimen #1, #2 or #3? 1Test performed at:[facility] Xznqetnbtn[address] [place], [place] [address] GAP 3 (Abnormal) Range: 5-15 CO2 34.0 [...] 7-18 GLU 89 mg/dL (Normal) Range: 70-110 0-Zbj-685811:30 CBC W/Diff, Automated Comments: Test performed at:[facility] Cwwbjmorch[address] [place] [address] Absolute Lymph 2.01 {X10_3/ul} (Normal) Range: 0.83-4.51 [...] Specimen #1, #2 or #3? 1Test performed at:[facility] Yxennljuhs8002 [facility] [place] [address] CPKMB 0.8 ng/mL (Normal) Range: 0.0-5.0 Comments: CK-MB and RI Interpretation MB Relative Index Non-AMI <or= 5 NA Indeterminate > 5 <or= 4 AMI > 5 > 4 CPK TOTAL 64 U/L (Normal) Range: 26-192 5-Hjk-962988:30 D-Dimer Quantitative (DVT/PE) Comments: Test performed at:[facility] Gmfaxdbetq5705 [facility] [place] [address] D-DIMER QUANT 1.86 {FEU/ug/m} (Abnormal) Range: 0.27-0.49 Comments: D-Dimer ELEVATED (>0.49): Additional studies and clinicalassessments are indicated to conclude diagnosis of:Deep Vein Thrombosis (DVT) or Pulmonary Embolism (PE)CRITICAL VALUE REPEATED AND VERIFIED. CALLED TO SHRAVAN.RN07/23/14 1104 Ricci Delgado.RESULTS READ BACK BY SAME. 3-Hak-030886:30 Troponin-I Comments: 'TROP' Serial specimen #1, #2, #3, or #4: 1'CKMB' Serial Specimen #1, #2 or #3? 1Test performed at:[facility] Htutzgievn7764 [facility] [place] [address] TROPONIN-I < 0.02 ng/mL (Normal) Comments: TROPONIN-I EXPECTED VALUES <0.05 NEGATIVE 0.06 - 0.59 AT RISK OF ID > OR = 0.60 SUGGEST ID :18 HgA1C , Office (84740) HgA1C , Office 5.7 % (Normal) Range: 4.6 - 7.1 :18 Blood Glucose , Office (88506) Blood Glucose , Office 106 (Normal) :20 [...] Yellow (Normal) :54 Blood Glucose , Office (89894) Blood Glucose , Office 123 (Normal) Comments: Not Fasting :54 HgA1C , Office (55977) HgA1C , Office 6.0 % (Normal) Range: 4.6 - 7.1 :31 POTASSIUM SERUM (21444) Comments: patient having drawn in 2 wks; PATIENT NOT FASTINGPERFORMED BY: [employer] BVSaint Barnabas Behavioral Health CenterZmfyxw6003 [facility] [id number] Information: [id number] Potassium, Serum 4.0 mmol/L (Normal) Range: 3.5-5.2 :20 Microscopic Examination Comments: PATIENT WAS FASTINGPERFORMED BY: [employer] BVSaint Barnabas Behavioral Health CenterQhfwtn1646 [facility] [id number] Bacteria Few (Normal) Mucus Threads Present (Normal) [...] A POSITIVE (Normal) :20 URINALYSIS, W/ MICRO (23078) Comments: PATIENT WAS FASTINGPERFORMED BY: ContactualHelen [facility]6370 [facility] [id number] Microscopic Examination See below: (Normal) Comments: Microscopic was indicated and was performed. Nitrite, Urine Negative (Normal) Urobilinogen,Semi-Qn 1.0 mg/dL (Normal) Range: 0.0-1.9 Bilirubin Negative (Normal) Occult Blood Negative (Normal) Ketones Negative (Normal) Glucose Negative (Normal) Protein Trace (Normal) WBC Esterase 2+ (Abnormal) Appearance Clear (Normal) Urine-Color Yellow (Normal) pH 6.5 (Normal) Range: 5.0-7.5 Specific [place] 1.023 (Normal) Range: 1.005-1.030 :20 METABOLIC PANEL, COMPREHENSIVE Comments: PATIENT WAS FASTINGPERFORMED BY: [employer] BVSaint Barnabas Behavioral Health CenterBmgqry0520 [facility] [id number] (00450) ALT (SGPT) 20 [iU]/L (Normal) Range: 0-32 [...] mg/dL (Abnormal) Range: 65-99 :20 LIPID PANEL (03602) Comments: PATIENT WAS FASTINGPERFORMED BY: [employer] BVSaint Barnabas Behavioral Health CenterCgqifq6646 [facility] [id number] LDL/HDL Ratio 3.8 {ratio_units} (Abnormal) Range: 0.0-3.2 [...] MANUAL DIFF Comments: PATIENT WAS FASTINGPERFORMED BY: [employer] BVSaint Barnabas Behavioral Health CenterTcqlmy5636 [facility] [id number] Information: [id number] (11924) Immature Grans (Abs) 0.0 {x10E3/uL} (Normal) Range: [...] (Normal) Range: 3.4-10.8 :09 HgA1C , Office (80598) HgA1C , Office 5.8 % (Normal) Range: 4.6 - 7.1 :09 Blood Glucose , Office (25570) Blood Glucose , Office 129 (Normal) Comments: [...] (Normal) Range: 70-110 :17 HgA1C , Office (12078) HgA1C , Office 5.9 % (Normal) Range: 4.6 - 7.1 :17 Blood Glucose , Office (40683) Blood Glucose , Office 107 (Normal) :15 [...] be sent to the patient by the [facility] within 30 days. Approximately 10% of breast cancers are not detected by mammography. Anormal mammogram should not delay biopsy of a clinically suspiciousabnormality. Signed:Payton DuttaMarch 15, 2013 at 7:58:55 AM [id number] Signed GP/GP If you are the referring physician and would like to consult with theradiologist who provided this interpretation, please co rodolfoct Unique Yusuf at [phone]. If this radiologist is unavailable, youwill be directed to another radiologist to assist. If you are a patient with a question regarding this report, pleas econtactyour referring physician directly. Professional Interpretation Provided By: I[employer], Phone , These documents contain legally protected [...] 03/15/13 0837 Sign by: Aaron Salgado MD 01-Fyo-37309:25 Blood Glucose , Office (64673) Blood Glucose , Office 134 (Normal) 05-Prc-11075:25 HgA1C , Office (81998) HgA1C , Office 5.8 % (Normal) Range: 4.6 - 7.1 8-Obe-798796:22 PELVIC (NON ) Radiology Report See Note [...] Salgado M.D.January 23, 2013 at 2:31:38 PM [id number] Signed GP/GP If you are the referring physician and would like to consult with theradiologist who provided this interpretati on, please contact Unique Yusuf at [phone]. If this radiologist is unavailable, youwill be directed to another radiologist to assist. If you are a patient with a question regarding this report, pleasecontactyour referring physician directly. Professional Interpretation Provided By: [employer], Phone , These documents contain legally protected [...] size of the right kidney. The right qrpwzyuuniicmd22.4 cm. Ambika l renal cortex. The right cortex measures 1.0 cm. Thereisa 1.1 cm x 1.0 cm x 0.9 cm cyst in the inferior pole. There is no righthydronephrosis. Left Kidney: Normal size of the left kidney. The left kidney iqolohlw86.5cm. Normal renal cortex. The left cortex measures 1.9 cm. There is nodemonstrated renal mass or cyst. There is no left hydronephrosis. Aorta: Unremarkable. I.V.C.: The IVC is pa tent. There is no ascites. IMPRESSION:Fatty infiltration of the liver. The patient is status postcholecystectomy. Signed:Aaron Salgado M.D.January 23, 2013 at 2:2 8:11 PM [id number] Signed GP/GP If you are the referring physician and would like to consult with theradiologist who provided this interpretation, please contact Payton Yusuf at [phone]. If this radiologist is unavailable, youwill be directed to another radiologist to assist. If you are a patient with a question regarding this report, pleasecontactyour referring phys ician directly. Professional Interpretation Provided By: [employer], Phone , These documents contain legally protected [...] Salgado M.D.January 23, 2013 at 2:31:38 PM [id number] Signed GP/GP If you are the referring physician and would like to consult with theradiologist who provided this interpretati on, please contact Unique Yusuf at [phone]. If this radiologist is unavailable, youwill be directed to another radiologist to assist. If you are a patient with a question regarding this report, pleasecontactyour referring physician directly. Professional Interpretation Provided By: IEMO, Phone , These documents contain legally protected [...] 01/24/13 1043 Sign by: Aaron Salgado MD 03-Gew-741248:11 CBC, Platelets & Auto Comments: PATIENT NOT FASTINGPERFORMED BY: LabCoSaint Barnabas Behavioral Health CenterArowie5755 [facility] [id number] Information: [id number] Diff (11286) Immature Grans (Abs) 0.0 {x10E3/uL} (Normal) Range: [...] (Normal) Range: 70-110 :33 HgA1C , Office (97619) HgA1C , Office 5.8 % (Normal) Range: 4.6 - 7.1 :53 METABOLIC PANEL, COMPREHENSIVE Comments: PATIENT WAS FASTINGPERFORMED BY: LabCoSaint Barnabas Behavioral Health CenterNfmsba7819 [facility] [id number] (87574) ALT (SGPT) 19 [iU]/L (Normal) Range: 0-32 [...] DIFF Comments: PATIENT WAS FASTINGPERFORMED BY: JERMAINE [employer] [facility] [id number] Information: [id number] (29241) Immature Grans (Abs) 0.0 {x10E3/uL} (Normal) Range: [...] {x10E3/uL} (Normal) Range: 4.0-10.5 :53 LIPID PANEL (25709) Comments: PATIENT WAS FASTINGPERFORMED BY: JERMAINE [facility] Campus LoveDublin [place] [id number] LDL/HDL Ratio 3.3 {ratio_units} (Abnormal) Range: 0.0-3.2 LDL Cholesterol Calc 136 mg/dL (Abnormal) Range: 0-99 HDL Cholesterol 41 mg/dL (Normal) Comments: According to ATP-III Guidelines, HDL-C >59 mg/dL is considered anegative risk factor for CHD. VLDL Cholesterol José Luis 45 mg/dL (Abnormal) Range: 5-40 Triglycerides 226 mg/dL (Abnormal) Range: 0-149 Cholesterol, Total 222 mg/dL (Abnormal) Range: 100-199 91-Npl-96188:51 BILAT SCRN DIGITAL & CAD Radiology Report [...] Salgado M.D.January 18, 2012 at 10:04:04 AM [id number] Signed GP/GP If you are the referring physician and would like to consult with theradiologist who pro vided this interpretation, please contact Unique Yusuf at [phone]. If this radiologist is unavailable, youwill be directed to another radiologist to assist. If you are a patient with a q uestion regarding this report, pleasecontactyour referring physician directly. Professional Interpretation Provided By: IEMO, Phone , Dictated on 01/18/12 0759 by Damian FLYNN,DavidriClevelandranscribed on 01/18/12 1010 by ITS IMPORTSign by Damian FLYNN,Aaron on 01/18/12 1011 Sign by: Aaron Salgado MD 6-Olw-301403:43 MICROALBUMIN: CREATININE RATIO Comments: PATIENT WAS FASTINGPERFORMED BY: [employer] Eapjmw6231 [facility] [id number] (73884) AND (70099) Microalb/Creat Ratio 1.4 {mg/g_creat} (Normal) Range: 0.0-30.0 Microalbumin, Urine 2.3 ug/mL (Normal) Range: 0.0-17.0 Creatinine, Urine 167.9 mg/dL (Normal) Range: 15.0-278.0 6-Jgr-746950:43 METABOLIC PANEL, COMPREHENSIVE Comments: PATIENT WAS FASTINGPERFORMED BY: PrePayMe6370 [facility] [id number] (47667) ALT (SGPT) 24 [iU]/L (Normal) Range: 0-40 [...] Glucose, Serum 95 mg/dL (Normal) Range: 65-99 7-Xya-251791:43 LIPID PANEL (97564) Comments: PATIENT WAS FASTINGPERFORMED BY: COCC [facility] [id number] LDL/HDL Ratio 3.2 {ratio_units} (Normal) Range: 0.0-3.2 [...] MANUAL DIFF Comments: PATIENT WAS FASTINGPERFORMED BY: PrePayMe6370 [facility] [id number] Information: [id number] (38612) Immature Grans (Abs) 0.0 {x10E3/uL} (Normal) Range: [...] (Normal) Range: 4.0-10.5 :18 HgA1C , Office (76471) HgA1C , Office 6.1 % (Normal) Range: 4.6 - 7.1 77-Iom-724917:18 Blood Glucose , Office (27735) Blood Glucose , Office 125 (Normal) 67-Luf-256036:00 Thin prep Pap Comments: Source.............Cervical;EndocervicalNo. of containers..01 CYTYC Thin Prep VialPATIENT NOT FASTINGPERFORMED BY: LabCo88 [address] Streetzakiyalehigh valley hospital - pocono MANDEEP [id number] Information: [id number] (41091) Note: PAPSMR (Normal) Comments: The Pap smear [...] ; Routine gynecolog ical examina Imelda Batres Family Nurse (ASCP) 47-Ocw-09041:00 THU LEZAMA DIGITAL & CAD Radiology Report [...] 11/04/10619 Sign by: __ Aaron Salgado MD 4-Ehi-775528:24 CBC & PLATELETS (AUTO) Comments: PATIENT NOT FASTINGPERFORMED BY: LabCo Efguoa4943 [facility] [id number] Information: [id number]; appt 11/28/10 (85180) MCH 31.6 pg (Normal) Range: 27.0-34.0 MCHC [...] 27 45 63 >63Performed at: - [facility] [address] [place], [place] [address]Iwr Director: Stefano Mace PhD, Phone: [phone] HDL SIZE <TEST NOT PERFORMED> (Normal) INSULIN [...] TOT 209 mg/dL (Abnormal) LIPIDS . (Normal) 7-Irw-876281:12 CULT, DP WOUND Comments: COMMENTS: CULTURE, SENSITIVITY,AREOBES, [...] STRIMETHOPRIM/SULFAMETHOXAZ $ <=10 SVANCOMYCIN $ 1 S 5-Hxr-799238:10 CBC Comments: COMMENTS: AC ROOM 6 HCT [...] 1 S :56 Blood Glucose , Office (83716) Blood Glucose , Office 102 (Normal) :56 HgA1C , Office (21761) HgA1C , Office 6.1 % (Normal) Range: 4.6 - 7.1 :49 MICROALBUMIN: CREATININE Comments: PATIENT WAS FASTINGPERFORMED BY: LayerBoom0 [facility] [id number] BY: PrePayMe6370 [facility] [id number] RATIO (09326) AND (54533) Microalb/Creat Ratio 2.3 {mg/g_creat} (Normal) Range: 0.0-30.0 Microalbumin, Urine 3.4 ug/mL (Normal) Range: 0.0-17.0 Creatinine, Urine 150.2 mg/dL (Normal) Range: 15.0-278.0 :49 LIPOPROTEIN, BLD, BY NMR Comments: PATIENT WAS FASTINGPERFORMED BY: S7 [employer] [facility] [id number] BY: Scopelec70 MurphySt. [facility] [id number] Information: ADD [id number] AND DRAW FEE 99 8665 (80262) LP-IR 83 Comments: The LP-IR Score combines [...] (Abnormal) Choleste 220 mg/dL rol, (Abnormal) Total 18-Cvw-47086:49 METABOLIC PANEL, Comments: PATIENT WAS FASTINGPERFORMED BY: Fede [employer] Nze6863 [facility] [id number] BY: JERMAINE [facility] Gmtbow6894 [facility] [id number] COMPREHENSIVE (74396) ALT (SGPT) 22 [iU]/L (Normal) Range: 0-40 [...] Glucose, Serum 107 mg/dL (Abnormal) Range: 65-99 92-Hqj-28510:49 LIPID PANEL (31442) Comments: PATIENT WAS FASTINGPERFORMED BY: [employer] [facility] HospitalA123 SystemsGalion HospitalImplicit Monitoring SolutionsBelmont Behavioral Hospital [id number] BY: Videojuglin6370 [facility] [id number] LDL Cholesterol Calc 135 mg/dL (Abnormal) Range: 0-99 LDL/HDL Ratio 4.1 {ratio_units} (Abnormal) Range: 0.0-3.2 VLDL Cholesterol José Luis 52 mg/dL (Abnormal) Range: 5-40 HDL Cholesterol 33 mg/dL (Abnormal) Comments: According to ATP-III Guidelines, HDL-C >59 mg/dL is considered anegative risk factor for CHD. Triglycerides 261 mg/dL (Abnormal) Range: 0-149 Cholesterol, Total 220 mg/dL (Abnormal) Range: 100-199 25-Ktk-72763:49 CBC WITH MANUAL DIFF Comments: PATIENT WAS FASTINGPERFORMED BY: [employer] [facility] [id number] BY: FlapshareSaint Barnabas Behavioral Health CenterSubtfi8093 [facility] [id number] (94752) Baso (Absolute) 0.1 {x10E3/uL} (Normal) Range: 0.0-0.2 [...] 3.80-5.10 WBC 6.7 {x10E3/uL} (Normal) Range: 4.0-10.5 4-Neu-721596:35 MARYJANE CULTURE-OTHER (59972) Comments: PATIENT NOT FASTINGPERFORMED BY: [employer] [facility] [id number] Information: SRC:RAH [id number] Result 1 RRF (Normal) Comments: Routine respiratory bin Upper Respiratory Culture Final report (Normal) :07 Rapid Strep Test, Office (40208) Rapid Strep Test, Negative (Normal) Office :2 Potassium, Serum 3.8 mmol/L (Normal) Comments: PATIENT WAS FASTINGPERFORMED BY: FlapshareUNM Cancer CenterAbtxki7080 [facility] [id number] 4 Range: 3.5-5.2 74-Twa-343080:00 BILAT SCRN DIGITAL & CAD Radiology Report See Note (Normal) Comments: Exam Number: [id number] MAMMOGRAM, BILATERAL SCREENING DIGITAL AND CAD HISTORYRoutine [...] werealso examined with computer-aided detection s oftware (DS Digitale Seiten.). Reported By: KENNA SWEET M.D. 27-Feb-20098:24 Lipid Panel (32827) Comments: PATIENT WAS FASTINGClinical Information: ADD [id number], [id number] PERFORMED BY: [facility]raftwurxAshe [facility] Hospital [id number] Cholesterol, Total 224 mg/dL (Abnormal) Range: 100-199 HDL Cholesterol 31 mg/dL (Abnormal) Comments: According to ATP-III Guidelines, HDL-C >59 mg/dL is considered anegative risk factor for CHD. LDL Cholesterol Calc 122 mg/dL (Abnormal) Range: 0-99 LDL/HDL Ratio 3.9 {ratio_units} (Abnormal) Range: 0.0-3.2 Triglycerides 354 mg/dL (Abnormal) Range: 0-149 VLDL Cholesterol José Luis 71 mg/dL (Abnormal) Range: 5-40 53-Lcq-329120:16 JESUS ALBERTO (ANTINUCLEAR ANTIBODY) Comments: PATIENT NOT FASTINGPERFORMED BY: XTRMOn license of [facility] [id number] (88595) Antinuclear Antibodies Direct Negative (Normal) 65-Oge-715468:16 C-REACTIVE PROTEIN (31648) Comments: PATIENT NOT FASTINGPERFORMED BY: XTRMOn license of [facility] [id number] C-Reactive Protein, Quant 8.0 mg/L (Abnormal) Range: 0.0-4.9 23-Qeq-041597:16 CBC (AUTO) (06405) Comments: PATIENT NOT FASTINGPERFORMED BY: [facility]6370 [facility] [id number] Hematocrit 42.4 % (Normal) Range: 34.0-44.0 Hemoglobin 14.4 g/dL (Normal) Range: 11.5-15.0 MCH 31.9 pg (Normal) Range: 27.0-34.0 MCHC 34.0 g/dL (Normal) Range: 32.0-36.0 MCV 94 fL (Normal) Range: 80-98 Platelets 160 {x10E3/uL} (Normal) Range: 140-415 RBC 4.52 {x10E6/uL} (Normal) Range: 3.80-5.10 RDW 14.1 % (Normal) Range: 11.7-15.0 WBC 7.6 {x10E3/uL} (Normal) Range: 4.0-10.5 43-Ycj-561238:16 Folate (36316) Comments: PATIENT NOT FASTINGPERFORMED BY: [place] [id number] [facility] [id number] Folate (Folic Acid), Serum 17.4 ng/mL (Normal) Comments: Indeterminate: 3.4 - 5.4 Deficient: <3.4 29-Ngg-795790:16 METABOLIC PANEL, COMPREHENSIVE Comments: PATIENT NOT FASTINGPERFORMED BY: [place] 1443870 [facility] [id number] (59510) A/G Ratio 1.2 (Normal) Range: 1.1-2.5 Albumin, [...] Sodium, Serum 142 mmol/L (Normal) Range: 135-145 67-Hlq-393335:16 RHEUMATOID FACTOR-QUANT (45756) Comments: PATIENT NOT FASTINGPERFORMED BY: Shelf.comOn license of [facility] [id number] RA Latex Turbid. 9.3 {IU/mL} (Normal) Range: 0.0-13.9 89-Qby-461589:16 SED RATE ERYTHROCYTE (05812) Comments: PATIENT NOT FASTINGPERFORMED BY: [employer] BVrp GobblerOn license of [facility] [id number] Sedimentation Rate-Westergren 21 mm/h (Normal) Range: 0-30 49-Uat-785051:16 TSH (08851) Comments: PATIENT NOT FASTINGPERFORMED BY: YaSabe70 Deep Fiber SolutionsOn license of [facility] [id number] TSH 2.690 {uIU/mL} (Normal) Range: 0.450-4.500 83-Quo-462994:16 VITAMIN B-12 (CYANOCOBALAMIN) Comments: PATIENT NOT FASTINGPERFORMED BY: Shelf.comOn license of [facility] [id number] (27927) Vitamin B12 348 pg/mL (Normal) Range: 211-911 :35 Lipid Panel (69999) Comments: PATIENT WAS FASTINGClinical Information: ADD 887966, X25873 PERFORMED BY: JERMAINE [facility] Mnkxju4530 [place] [id number] Cholesterol, Total 208 mg/dL (Abnormal) Range: 100-199 HDL Cholesterol 32 mg/dL (Abnormal) Comments: According to ATP-III Guidelines, HDL-C >59 mg/dL is considered anegative risk factor for CHD. LDL Cholesterol Calc 124 mg/dL (Abnormal) Range: 0-99 LDL/HDL Ratio 3.9 {ratio_units} (Abnormal) Range: 0.0-3.2 Triglycerides 261 mg/dL (Abnormal) Range: 0-149 VLDL Cholesterol José Luis 52 mg/dL (Abnormal) Range: 5-40 :47 HgA1C , Office (19687) HgA1C , Office 5.8 % (Normal) Range: 4.6 - 7.1 :47 Blood Glucose , Office (45467) Blood Glucose , Office 128 (Normal) :43 Urinalysis, Office (60308) UA - LEUKOCYTE ESTERASE Trace (Normal) UA [...] Indication: Acute sinusitis Planned Observations LIPID PANEL (28699)Indication: Mixed hyperlipidemia On: 9-Pws-315452:45 Request Platelet 81009 (citrate, nonclumping tube)Indication: Thrombocytopenia, unspecified On: 22-Jul-20178:19 Request Metabolic Panel, Comprehensive (80033)Indication: Benign essential hypertension On: :46 Request MICROALBUMIN: CREATININE RATIO (36633) AND (82656)Indication: Benign essential hypertension On: :45 Request URINALYSIS (31678)Indication: Benign essential hypertension On: :45 Request CBC WITH MANUAL DIFF (87091)Indication: Benign essential hypertension On: :45 Request Platelet Count, Citrated (90385)Indication: Thrombocytopenia, unspecified On: :11 Request LIPOPROTEIN, BLD, BY NMR (30816)Indication: Mixed hyperlipidemia On: :07 Request Lipase (69731)Indication: Abdominal pain On: :24 Request Comments: add to hospital labs. Amylase (15718)Indication: Abdominal pain On: :24 Request Comments: add to hospital labs. Antiphospholipid atb (38075)Indication: Pulmonary emboli On: : Request ANTICOAG ANTTHROMB III & ASSAY (59552)Indication: Pulmonary emboli On: :27 Request METABOLIC PANEL, COMPREHENSIVE (23393)Indication: Benign essential hypertension On: :37 Request Comments: in three months (approximately) CBC with auto diff (27377)Indication: Benign essential hypertension On: :37 Request Comments: in three months (approximately) Troponin I (46253)Indication: Chest pain at rest On: : Request CPK MB FRACTION (50537)Indication: Chest pain at rest On: 0-Paz-281728:01 Request CREATINE KINASE TOTAL (34682)Indication: Chest pain at rest On: 0-Hpg-427712:01 Request D-Dimer (32654)Indication: Chest pain at rest On: 5-Gax-328575:00 Request Metabolic Panel, Basic (00438)Indication: Chest pain at rest On: :58 Request CBC (Auto) (40561)Indication: Chest pain at rest On: :58 Request URINALYSIS, W/ MICRO (50137)Indication: Benign essential hypertension On: :29 Request METABOLIC PANEL, COMPREHENSIVE (08209)Indication: Benign essential hypertension On: :29 Request LIPID PANEL (76867)Indication: Benign essential hypertension On: :29 Request CBC W/AUTO DIFF WBC (29227)Indication: Benign essential hypertension On: :29 Request URINALYSIS (69547)Indication: UTI (lower urinary tract infection) On: :49 Request LIPID PANEL (23639)Indication: Benign essential hypertension On: :27 Request CBC WITH MANUAL DIFF (18988)Indication: Thrombocytopenia, unspecified On: :27 Request METABOLIC PANEL, COMPREHENSIVE (50855)Indication: Benign essential hypertension On: :27 Request TSH (THYROID STIMULATING HORMONE) (68466)Indication: Post-menopausal bleeding On: :37 Request PROLACTIN (84614)Indication: Post-menopausal bleeding On: :37 Request HEPATIC FUNCTION PANEL (42373)Indication: Hyperglyceridemia On: :05 Request LIPOPROTEIN, BLD, BY NMR (49841)Indication: Hyperglyceridemia On: :04 Request CBC, Platelets & Auto Diff (57358)Indication: Thrombocytopenia, unspecified On: :04 Request Comments: citrate tube Potassium Serum (49659)Indication: Hypokalemia On: 73-Rfe-489874:36 Request Planned Encounters Medical; [facility] Exam (DB Nurse) - On: 26-Jul-2018 8:00 [facility] SUZY Spencer; [facility] Exam (Doctor) - On: 16-Aug-2018 8:00 [facility] Kelly Hannah MD, MD, Dana M Planned Procedures EKG (41281)By: Kelly Hannah MD On: 02-Dec-2017 Kelly Espinal MD Radiology - Foot - LeftBy: Brielle On: 12-Aug-2017 Kelly Beltrán MD, MD, Dana M TDAP VACCINE >7 IM (05261)By: On: 22-Jul-2017 Kelly Espinal MD, MD, Dana Comments: tdap 0.5mL prefilled syringelot:2FE63gib:10/2019L DELT IMpt tolerated wellAD DEVELOPER ADVOCATE M MAMMOGRAM BREAST BILATERAL SCREENING On: 02-Apr-2017 Intent DIGITAL (47799)By: Kelly Hannah MD, MD, Dana M Kenalog Injection, 10 mgm On: 15-Feb-2017 Intent (J3301)By: Kelly Hannah MD Comments: lot numer [id number] 05/08 marcaine [id number] 06/21/18 Kelly Hannah MD Echo CompleteBy: Kelly Hannah MD On: 10-Sep-2016 Intent Kelly Hannah MD Comments: rule out pericarditis and ? pericardial fluid EKG (82727)By: Kelly Hannah MD On: 04-Sep-2016 Intent Kelly Hannah MD Comments: see scanned document of test done to see results reviewed today with patient Bone Density StudyBy: Brielle FLYNN, On: 09-Jun-2016 Intent Kelly Hernandez MD Kenalog Injection, 10 mgm On: 21-Apr-2016 Intent (J3301)By: Kelly Hannah MD Comments: buupivacaine lot [id number] 06-21-17 kenalog [id number] 09-05 Kelly Hannah MD DOPPLER ULTRASOUND OF RIGHT UPPER On: 20-Apr-2016 Intent EXTREMITY FOR VENOUS THROMBOEMBOLISM (04228)By: Kelly Hannah MD, MD, Dana M MAMMOGRAM, SCREENING, BOTH BREAST On: 27-Feb-2016 Intent (66790)By: Kelly Hannah MD, MD, Dana M Venous Doppler - BothBy: Brielle FLYNN, On: 06-Dec-2015 Intent Kelly Hernandez MD Comments: lower legs rule out DVT ADMINISTRATION OF INFLUENZA VIRUS On: 18-Apr-2015 Intent VACCINE (G0008)By: Kelly Hannah MD Comments: Lot:[id number]:11-03Route:IMLocation:Rt deltoiiddose: .5mlGiven by:Kelly Potter MD FLU VAC, SPLIT, >3 YEARS, INTRAMUSC On: 18-Apr-2015 Intent (55973)By: Kelly Hannah MD Comments: Lot #:[id number] date:Amount given:0.5mlRoute: IMSite given:L DltdGiven by: Peyton CHAMPION and ABN signed Quad Flu Kelly Hannah MD BILATERAL MAMMOGRAMS (07247)By: On: 05-Nov-2014 Intent Kelly Hannah MD, MD, Dana M CT - Chest (IV Contrast Needed)By: On: 23-Jul-2014 Intent Kelly Hannah MD, MD, Dana M COMPUTED TOMOGRAPHY ANGIOGRAPHY OF On: 23-Jul-2014 Intent CHEST WITH AND WITHOUT CONTRAST Comments: rule out PE (26228)By: Kelly Hannah MD, MD, Dana M EKG (75523)By: Lindsey Verde DO On: 05-Jul-2014 Intent Comments: sinus johanny with no chg MAMMOGRAM, SCREENING, BOTH BREAST On: 26-Apr-2014 Intent (30864)By: Kelly Hannah MD, MD, Dana M BILATERAL MAMMOGRAMS (33090)By: On: 27-Mar-2014 Intent Kelly Hannah MD, MD, Dana M IMMUNIZ ADMNIN, 1 VAC, SNGL/COMBO On: 27-Mar-2014 Intent (16031)By: Kelly Hannah MD Comments: Lot #[id number]-L dltd, IMDose prefilled syringegiven by:MLongJOENVIS and ABN signed Kelly Hannah MD FLU VAC, SPLIT, >3 YEARS, INTRAMUSC On: 27-Mar-2014 Intent (81358)By: Kelly Hannah MD, MD, Dana M Eprescribed prescriptions (G8553)By: On: 10-Oct-2013 Intent Kelly Hannah MD, MD, Dana M Phenergan Injection, up to 50 mg On: 22-Sep-2013 Intent (J2550)By: Nona Whiting CNP Comments: [id number], IM Nyla, DEVELOPER ADVOCATE INFUSION, NORMAL SALINE SOLUTION , On: 22-Sep-2013 Intent 1000 CC (Special Coverage Instructions Apply. See MCM: 2049) (J7030)By: Nona Whiting CNP HYDRATION IV INFUSION, INIT On: 22-Sep-2013 Intent (64171)By: Nona Whiting CNP Eprescribed prescriptions (G8553)By: On: 10-Jul-2013 Intent Nathalie Nicole Breast Screening - BilateralBy: On: 06-Feb-2013 Intent Kelly Hannah MD, MD, Dana M IMMUNIZ ADMNIN, 1 VAC, SNGL/COMBO On: 06-Feb-2013 Intent (16426)By: [place] (94299)By: Tj, On: 06-Feb-2013 Intent SUZY Ultrasound - Abdomen Complete & On: 18-Jan-2013 Intent PelvisBy: Nona Whiting CNP EKG (65996)By: Kelly Hannah MD On: 12-Jul-2012 Intent Kelly Hannah MD Comments: see scanned document of test done to see results reviewed today with patient Eprescribed prescriptions (G8553)By: On: 12-Jul-2012 Intent Long DEVELOPER ADVOCATE, Nyla L MAMMOGRAM, SCREENING, BOTH BREASTS On: 06-Oct-2011 Intent (51292)By: Kelly Hannah MD Comments: 11-04-11 Kelly Hannah MD MAMMOGRAM, SCREENING, BOTH BREASTS On: 28-Nov-2010 Intent (22766)By: Kelly Hannah MD, MD, Dana M MAMMOGRAM, SCREENING, BOTH BREASTS On: 23-Oct-2010 Intent (11857)By: Kelly Hannah MD, MD, Dana M EEGBy: Lindsey Verde DO On: 20-Aug-2010 Intent EKG (55775)By: Kelly Hannah MD On: 20-Dec-2009 Intent Kelly Hannah MD EKG (72710)By: Kelly Hannah MD On: 17-Jan-2009 Intent Kelly Hannah MD MAMMOGRAM, SCREENING, BOTH BREASTS On: 17-Jan-2009 Intent (88503)By: Kelly Hannah MD, MD, Dana M Pulse Oximetry (41863)By: Yung, On: 04-Jul-2008 Intent Gabriela Comments: 98% Phenergan Injection, up to 50 mg On: 25-Apr-2008 Intent (J2550)By: Nona Whiting CNP Comments: 25mg given IMAmt: 1mlLot: [id number]: 03/2010Route: IMSite: left hipTolerated: wellGiven By: NATASHA Plata INFUSION, NORMAL SALINE SOLUTION , On: 25-Apr-2008 Intent 1000 CC (Special Coverage Comments: IV Therapy initiated (Hamzah Black LPN)22G, 1inchSite: right wristTolerated: wellB. NATASHA Mckinnon Instructions Apply. See MCM: 2048) (J7030)By: Nona Whiting CNP HYDRATION IV INFUSION, INIT On: 25-Apr-2008 Intent (16106)By: Nona Whiting CNP FLU VAC, SPLIT, >3 YEARS, INTRAMUSC On: 21-May-2006 Intent (09690)By: SUZY Spencer IMMUNIZ ADMNIN, 1 VAC, SNGL/COMBO On: 21-May-2006 Intent (07491)By: SUZY Spencer Planned Medications INFUSION, NORMAL SALINE [...] for Tdap vaccination (Renamed from Need for uxarvxkqkg-kxqcjtv-uebudvzld (Tdap) vaccine, adult/adolescent), Thrombocytopenia, unspecified Comprehensive Internal [...] Cold Symptoms: Pt just flew home from [place] yesterday.- yellow green nasal discharge- sx for [...]
--- OUTSIDE RECORDS SUMMARY | 2018-07-14 07:42 | XMS RPT_ITS | Continuity of Care Document ---
:1950 Author Organization [facility] Address [facility] [facility] [address] [place] [address] Phone Care Team Providers Name Role Phone [...] depression lost job was in . lost [employer] and she has to drive around. life withsomeone OCD, hoarder. on ambien for sleep per Dr. coates. Wellbutrin start but had insomni a in past. working with [employer]. doing okay on incresae welbutrin.tried Effexor, paxil [...] adipex and topamax. 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 got [...] daily for 0 days Refills: 0 Ordered:13-Nov-2009 Lenane Marie Start : 23-Jan-2009 Inactive GAURAV-D 12 [...] 18-Apr-2015 End : 19-Apr-2015 Inactive BD Disp [place] 30G X 1/2 Miscellaneous 1 (one) Misc [...] Inactive Comments:Medication taken as needed. called to [facility] 07-30-09 erussell disp 4 [...] : 20-Dec-2009 End : 02-May-2010 Inactive NYSTATIN, 329280KVAO/ML (Mouth/Throat Suspension) 15 Suspension qid swish and swallow for 0 days Quantity: 450 {Milliliter} Refills: 0 Ordered:20-Aug-2010 Suzette Black LPN Start : 04-Aug-2010 End : 20-Aug-2010 Inactive PANTOPRAZOLE SODIUM, 40MG (Oral Tablet Delayed Release) 1 (one) Tablet DR daily for 0 days Quantity: 30 {Tablet} Refills: 6 Ordered:06-Dec-2015 SUZY Spencer Start : 20-Apr-2015 End : 06-Dec-2015 Inactive Pen [place] 5/16 31G X 8 MM Miscellaneous 1 [...] Leanne Marie Start : 29-Jul-2009 Inactive ZOSTAVAX, 80912SLE/0.65ML (Subcutaneous Solution Reconstituted) uad For Solution one [...] epig was in hospital and work 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 ppi and carafate helping. [...] for Tdap vaccination (Renamed from Need for zqbbvgpcpj-vbmhohm-qfiodbcdo (Tdap) vaccine, adult/adolescent) (Z23, V06.1) Status: Resolved as of 23-Sep-2017 Neuropathic pain, leg, bilateral (G57.91, 356.9) Comments: more of a sensitivity to [...] 2007, 2013 bilateral LEFT HEART CARDIAC CATH (78026) Completed Comments: Dr. Alexander nasal abscess I and D 04-30 Completed Date Value Details 03-Mar-2018 Inital Evaluation (1) - PT Result: Comments: See Note; NOTES: [facility] [address] [place] [address] Fax REHABILITATION SERVICES INITIAL EVALUATION MR#: [id number] Acct: [id number] Name: DIANA ESCUDERO Rep #: [id number] : 1950 68 From: Lazaro Jackson DPT Referring Dr.: GENOVEVA Myers Status: REG RCR Insurance: [email or web address] PPO SELF PAY INSURANCE Patient's Visit Information [...] stabing pain (8/10) at rest. 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 Please let me know if there are questions or concerns regarding this plan of care. Physician Signature: Date: <Electronically signed by Lazaro Jackson DPT&amp ;#62; 03/03/18 9810 CC: GENOVEVA Meyrs; Kelly Hannah MD CLS Signed For Medicare only, by signing this I certify the plan of care. Physicians Signature Date 16-Feb-2018 12 Lead Electrocardiogram Result: Comments: See Note; NOTES: [facility] Cardiovascular Services [address] [place] [address] 12 Lead EKG 02/14/18 1459 MR#: [id number] Acct: [id number] Name: DIANA ESCUDERO Rep #: [id number] : 1950 68 From: Harris Brandt MD [...] Int : 401 ms Sinus bradycardia Inferior ND, age undeterm ined, cannot be excluded Confirmed by KEVIN FLYNN, HARRIS ([id number]), offline editor SHIELA DOWELL (56) on 02/16/2018 1:34:57 PM Referred By: BRIEN Confirmed By:HARRIS BRANDT MD 02/16/18 1335 Date __ Harris Brandt MD CC: Kelly Hannah MD; Kasi Worley MD Signed 15-Feb-2018 Emergency Department Summary Result: Comments: See Note; NOTES: [facility] Medical Records Department [address] [place] [address] Emergency Department Summary 02/14/18 1636 MR#: [id number] Acct: [id number] Name: DIANA ESCUDERO Rep #: [id number] : 1950 68 From: Kasi Worley MD [...] score 1. This note was generated with threadsy dictation software. It may contain incorrect words, [...] your Primary Care Provider. Call [facility] ([phone]) or report to the closest Emergency Room. Call 911 if necessary. 02/15/18 0046 <Electronically signed by Jose Daniel Worley MD> Date Kasi Worley MD Cosigner Signature (If Indicated): Date CC: Kelly Hannah MD 14-Feb-2018 Venous Duplex Lower Extremity Result: Comments: See Note; NOTES: [facility] Cardiovascular Services [address] [place] [address] Venous Duplex US, Unilateral 02/14/18 1549 MR#: [id number] Acct: [id number] Name: DIANA HICKMAN OLGA Rep #: [id number] : 1950 68 From: Abdoulaye Landa MD [...] 02/14/181740 Date Abdoulaye Landa MD CC: Kelly Hannha MD; Kasi Worley MD Date Dictated: 0 02/14/18 1549 Date Transcribed: 02/14/181740 Console Assembler: Signed 14-Feb-2018 Chest 1 View (Portable) Result: Comments: See Note; NOTES: [facility] Imaging Services [address] [place] [address] Chest 1 View (Portable) MR#: [id number] Acct: [id number] Name: DIANA ESCUDERO Rep #: [id number] : 1950 F 68 From: Aaron Salgado MD PCP: Kelly Hannah MD Status: [facility] ER Study: Chest 1 View (Portable) Date of Exam: 02/14/18 Exam# [id number] Ordering Dr: Kasi Worley MD STUD Y: [...] Aaron Salgado MD at 15:52 EDT Tel [phone], Service support , CC: Kelly Salgado; Kasi Worley MD Console Assembler: Signed 24-Jan-2018 Cardiology Visit Report Result: Comments: See Note; NOTES: [facility] [address] [place] [address]. [address] [place] [address] OFFICE VISIT Date of Service: 01/24/18 MR#: [id number] Acct: [id number] Name: DIANA ESCUDERO OLGA Rep #: [id number] : 1950 Provider: Puneet Alexander MD Age/Sex: 67/F Location: [facility] Status: Signed HPI HPI Chief Complaint: [...] Intake Visit Reasons: 6 M FU In [facility] Required: No Allergies simvastatin [From Zocor] Adverse [...] mg PO QDAY 01/24/18 [History Confirmed 01/24/18] [facility] Medical History Obstructive sleep apnea (Chronic) History of pulmonary embolism (Chr onic) Atherosclerosis of coronary artery of [place] heart without angina pectoris (Chronic) Hypertension (Chronic) [...] Plan 1. Atherosclerosis of coronary artery of [place] heart without angina pectoris I25.10 Non Obs [...] 3 Diagnoses Atherosclerosis of coronary artery of [place] heart without angina pect ranulfo I25.10 Hyperlipidemia E78.5 Coding Level of Care Code Off vis,est,level 3 Diagnoses Atherosclerosis of coronary artery of [place] heart without angina pectoris I25.10 Hyperlipidemia E78.5 12/06 1536 <Electronically signed by Puneet Alexander MD> Date [facility] Signature: Date (if applicable) CC: Kelly Hannah MD 12-Aug-2017 Foot min 3 Views Result: Comments: See Note; NOTES: [facility] Imaging Services [address] [place] [address] Foot min 3 Views MR#: [id number] Acct: [id number] Name: DIANA ESCUDERO OLGA Rep #: [id number] : 1950 F 67 From: Aaron Salgado MD PCP: Kelly Hannah MD Status: REG CLI Study: Foot min 3 Views Date of Exam: 08/12/17 Exam# [id number] Ordering Dr: Kelly Hannah MD STUDY: X-RAY [...] Salgado MD 08/08/21 at 14:14 EST Tel [phone], Service support , CC: Kelly Hannah MD Console Assembler: Signed 05-Aug-2017 TXT - Blood Flow Screening Result: Comments: See Note; NOTES: [facility] Cardiovascular Services [address] [place] [address] 08/05/17 0756 MR#: [id number] Acct: [id number] Name: DIANA ESCUDERO Rep #: [id number] [...] Dictated: 08/05/17 0756 Date T ranscribed: 08/05/172129 Console Assembler: Signed 15-Jul-2017 Cardiology Visit Report Result: Comments: See Note; NOTES: [facility] [address] [place] [address] OFFICE VISIT Date of Service: 07/15/17 MR#: [id number] Acct: [id number] Name: DIANA ESCUDERO OLGA Rep #: [id number] : 1950 Provider: Puneet Alexander MD Age/Sex: 67/F Location: [facility] Status: Signed HPI 6 M FU: Chief [...] Hyperlipidemia (Chronic) Atherosclerosis of coronary artery of [place] heart without angina pectoris (Chronic) Blood glucose [...] [facility] and improve [...] (CAD), BILAT Result: Comments: See Note; NOTES: [facility] Imaging Services [address] [place] [address] SCREENING MAMM (CAD), BILAT MR#: [id number] Acct: [id number] Name: DIANA ESCUDERO OLGA Rep # : [id number] : 1950 F 67 From: Aaron Salgado MD PCP: Kelly Hannah MD Status: REG CL Study: SCREENING MAMM (CAD), BILAT Date of Exam: 04/19/17 Exam# [id number] Ordering Dr: Kelly Hannah MD MAMMOGRAPHY - [...] delay biopsy of a clinically suspicious abnormality. [id number] Electronically Signed: Aaron Salgado MD at 8:33 EDT Tel [phone], Service support , CC: Kelly Hannah MD Console Assembler: Signed 16-Sep-2016 Echocardiogram Complete Result: Comments: See Note; NOTES: [facility] Cardiovascular Services [address] [place] [address] Echo Complete 09/16/16 0956 MR#: [id number] Acct: [id number] Name: DIANA ESCUDERO Rep #: [id number] : 1950 66 From: Emil Craven MD [...] Dictated: 09/16/16 0956 Date Transcribed: 09/16/16 1145 Console Assembler: Signed 04-Sep-2016 CTA Chest W/WO Contrast Result: Comments: See Note; NOTES: [facility] Imaging Services [address] [place], [place] [address] [address] Verdana 4d CTA Chest W/WO Contrast MR#: [id number] Acct: [id number] Name: DIANA ESCUDERO Rep #: [id number] : 1950 F 66 From: Aaron Salgado MD PCP: Kelly Hannah MD Status: REG ER Study: CTA Chest W/WO Contrast Date of Exam: 09/04/16 Exam# [id number] Ordering Dr: Leanne Finn STUDY: CTA CHEST [...] Burak Salgado MD at 11:40 EDT Tel [phone], Service support [phone], CC: Leanne Finn MD; Kelly Hannah MD Console Assembler: Signed 23-Jun-2016 Dexa Bone Density Study (HP) Result: Comments: See Note; NOTES: [facility] Imaging Services [address] [place] [address] Verdana 4d Dexa Bone Density Study (HP) MR#: [id number] Acct: [id number] Name: EDUARDO ESCUDERO Rep #: [id number] : 1950 F 66 From: aAron Salgado MD PCP: Kelly Hannah MD Status: REG CLI Study: Dexa Bone Density Study (HP) Date of Exam: 06/23/16 Exam# [id number] Ordering Dr: Kelly Posey MD STUDY: DUAL [...] Aaron Salgado MD at 16:05 EST Tel [phone], Service support [phone], CC: Kelly Hannah MD Console Assembler: Signed 20-Apr-2016 Venous Duplex Lower Extremity Result: Comments: See Note; NOTES: [facility] Cardiovascular Services [address] [place] [address] Venous Duplex US, Unilateral 04/20/16 1428 MR#: [id number] Acct: [id number] Name: DIANA ESCUDERO Rep #: [id number] : 1950 66 From: Marcus Garza MD [...] Date Dictated: 04/20/16 1428 Date Transcribed: 04/20/162149 Console Assembler: Signed 23-Mar-2016 Bilat Scrn Digital AND CAD Result: Comments: See Note; NOTES: [facility] Imaging Services [address] [place] [address] Verdana 4d Bilat Scrn Digital AND CAD MR#: [id number] Acct: [id number] Name: ANGELA ESCUDERO OLGA Rep #: [id number] : 1950 F 66 From: Aaron Salgado MD PCP: Kelly Hannah MD Status: REG CLI Study: Bilat Scrn Digital AND CAD Date of Exam: 03/23/16 Exam# [id number] Ordering Dr: Kelly Resendiz i, MD MAMMOGRAPHY [...] delay biopsy of a clinically suspicious abnormality. [id number] Electronically Signed: Aaron Salgado MD at 7:51 EDT Tel [phone], Service support [phone], CC: Kelly Hannah MD Console Assembler: Signed 02-Jan-2016 Venous Duplex Lower Extremity Result: Comments: See Note; NOTES: [facility] Cardiovascular Services [address] [place] [address] Venous Duplex US - Johnny Extrem 01/02/16 1454 MR#: [id number] Acct: [id number] Name: DIANA ESCUDERO Rep #: [id number] : 1950 65 From: Marcus Garza MD [...] Date Dictated: 01/02/16 1454 Date Transcribed: 01/02/161653 Console Assembler: Signed 12-Dec-2015 12 Lead Electrocardiogram Result: Comments: See Note; NOTES: [facility] Cardiovascular Services [address] [facility] [place] [address] 12 Lead EKG 12/03/151124 MR#: [id number] Acct: [id number] Name: DIANA DOWLING OLGA Rep #: [id number] : 1950 65 From: Puneet Alexander MD [...] normal ECG Confirmed by PUNEET ALEXANDER ([id number]), offline editor SHIELA DOWELL (56) on 12/09/2015 10:54:37 AM Referred By: KIRT Confirmed By:PUNEET ALEXANDER 12/09/15 1054 Date ___ Puneet Alexander MD CC: Kelly Hannah MD Date Dictated: 12/03/15 1125 Date Transcribed: 12/03/151124 Console Assembler: Signed 03-Dec-2015 Emergency Department Summary Result: Comments: See Note; NOTES: [facility] Medical Records Department [address] [place] [address] Emergency Department Summary MR#: [id number] Acct: [id number] Name: DIANA ESCUDERO Rep #: [id number] : 1950 65 From: Leanne Finn MD [...] T: [facility] JOB: [id number] 12/03/15 1536 <Electronically signed by Leanne Finn MD& #62; Date Leanne Finn MD Cosigner Signature (If Indicated): Date CC: Kelly Hannah MD Da te Dictated: 12/03/151356 Date Transcribed: 12/03/151356 Console Assembler: Signed 03-Dec-2015 Discharge Instruction Result: Comments: See Note; NOTES: [facility] Medical Records Department [address] [place], [place] [address] [address] Discharge Instruction 12/03/151353 MR#: [id number] Acct: [id number] Name: DIANA ESCUDERO OLGA Rep #: [id number] : 1950 65 From: Leanne Finn MD [...] problems, contact your doctor. Call [facility] ([phone]) or report to the closest Emergency Room. Call 911 if necessary. 12/03/15 135 &# 60;Electronically signed by Leanne Finn MD> Date Leanne Chakraborty Signature (If Indicated): Date CC: Kelly Hannah MD 03-Dec-2015 CTA Chest W/WO Contrast Result: Comments: See Note; NOTES: [facility] Imaging Services [address] [place] [address] Verdana 4d CTA Chest W/WO Contrast MR#: [id number] Acct: [id number] Name: DIANA MENESES Rep #: [id number] : 1950 F 65 From: Aaron Salgado MD PCP: Kelly Hannah MD Status: REG ER Study: CTA Chest W/WO Contrast Date of Exam: 12/03/15 Exam# [id number] Ordering D r: Leanne Finn MD STUDY: [...] Aaron Salgado MD at 13:37 EDT Tel [phone], Service support [phone], CC: Leanne Finn MD; Kelly Hannah MD Console Assembler: Signed 24-Jul-2015 Sleep Study Report Result: Comments: See Note; NOTES: [facility] [address] [place] [address] Split Night Sleep Study MR#: [id number] Acct: [id number] Name: Miguel Angel ESCUDERO Rep #: [id number] : 1950 65 From: Jimmy Coates MD [...] version). Please note that a reference to [facility] AHI in this report is consistent with the current Hypopnea definition according to Medicare Criteria and an [facility] AHI reference is consistent wit h the current Hypopnea definition according to the AASM criteria and is recognized by [facility] as the RDI. PROCEDURE: The study was attended continuously by a document image technician. Monitored parameters inclu ded left and [...] calculated body mass index of 35 and [place] Sleepiness Scale score of 6/20. The patient [...] and heated humidity. SLEEP STUDY DATA: The [facility] split night study began at 1114:07 [...] MAmber. Jimmy Coates MD T: NTS JOB: [id number] CC: Jimmy Coates MD DD: 08/06 1043 1043 07/24/15 2205 <Electronically signed by Jimmy Coates MD> Date Jimmy Coates MD Co-signature (if appli cable) Date Signed 12-Feb-2015 Chest 1 View (Portable) Result: Comments: See Note; NOTES: [facility] Imaging Services [address] [place] [address] Radiology Report MR#: [id number] Acct: [id number] Name: DIANA ESCUDERO Rep #: [id number] : 1950 F 65 From: Aaron Salgado MD PCP: Kelly Hannah MD Status: PRE ER Study: Chest 1 View (Portable) Date of Exam: 02/12/15 Exam# [id number] Ordering Dr: Kenroy Arciniega MD S SABRINADY: [...] Aaron Salgado MD at 11:08 EDT Tel [phone], Service support [phone], RAD/Chest 1 View (Portable) IMPRESSION: No acut e abnormality is seen. Electronically Signed: Aaron Salgado MD at 11:08 EDT Tel [phone], Service support [phone], CC: Kelly Hannah MD; Kenroy Arciniega MD Console Assembler: Signed 12-Feb-2015 CTA Chest W/WO Contrast Result: Comments: See Note; NOTES: [facility] Imaging Services [address] [place] [address] CAT Scan Report MR#: [id number] Acct: [id number] Name: DIANA ESCUDERO Rep #: [id number] : 1950 F 65 From: Aaron Salgado MD PCP: Kelly Hannah MD Status: REG ER Study: CTA Chest W/WO Contrast Date of Exam: 02/12/15 Exam# [id number] Ordering Dr: Kenroy Arciniega MD UDY: CTA [...] Aaron Salgado MD at 12:08 EDT Tel [phone], Service support [phone], CC: Kelly Hannah MD; Kenroy Arciniega MD Console Assembler: Signed 11-Jan-2015 Bilat Scrn Digital AND CAD Result: Comments: See Note; NOTES: [facility] Imaging Services [address] [place] [address] Breast Imaging Report MR#: [id number] Acct: [id number] Name: DIANA ESCUDERO Rep #: [id number] : 1950 F 64 From: Shaan Nunez DO PCP: Kelly Hannah MD Status: REG CLI Study: Bilat Scrn Digital AND CAD Date of Exam: 01/11/15 Exam# [id number] Ordering Dr: Kelly Hannah MD MAMMOGRAPHY - [...] facility within 30 days. According to [employer], yearly mammograms are recommended starting [...] Signed: Shaan NunezDO at 10:22 EDT Tel [phone], Service support [phone], CC: Kelly Hannah MD Console Assembler: Signed 23-Jul-2014 CTA Chest W/WO Contrast Result: Comments: See Note; NOTES: [facility] Imaging Services [address] [place] [address] CAT Scan Report MR#: [id number] Acct: [id number] Name: DIANA ESCUDERO Rep #: [id number] : 1950 F 64 From: Aaron Salgado MD PCP: Kelly Hannah MD Status: REG CLI Study: CTA Chest W/WO Contrast Date of Exam: 07/23/14 Exam# [id number] Ordering Dr: Kelly Hannah MD S TUDY: [...] Aaron Salgado MD at 12:47 EST Tel [phone], Service support [phone], CC: Kelly Hannah MD Console Assembler: Signed 04-Jan-2014 Consultation Result: Comments: See Note; NOTES: [facility] Medical Records Department [address] [place] [address] Consultation 01/04/14 1218 MR#: [id number] Acct: [id number] Name: DIANA ESCUDERO Rep #: [id number] : 1950 63 From: Juancho Foy MD PCP: Kelly Hannah MD Status: REG [facility] Location: [place] [address] Problem List (1) Bradycardia Status: Acute (2) [...] showed sinus bradycardia, normal QRS duration, normal HI interval, normal QT interval, no ischemic hardy [...] PO Q4H PRN PRN #30 tablet 01/04/14 [[place] 5/325] Surgical History: appendectomy, cholecystectomy, - - Hysterectomy Psychiatric History: No pertinent psych hx 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 Lives: Spouse/ Significant Other Smoking [...] Discharge Instruction Result: Comments: See Note; NOTES: [facility] Medical Records Department [address] [place] [address] Instructions for Home/Discharge Instructions 01/04/14 0731 MR#: [id number] Acc t: [id number] Name: DIANA ESCUDERO Rep #: [id number] : 1950 63 From: Anatoly Diego MD [...] PRN PRN #60 capsule Hydrocodone Bitart/Apap 5-325 [[place] 5/325] 1 tablet PO Q4H PRN PRN #30 tablet Please Follow Up With: Anatoly Diego When: 2-3 weeks Proposed Discharge Date: 01/05/14 01/04/14 0735 <Electronically signed by Anatoly Diego MD> Date Anatoly Diego MD CC: Kelly Hannah MD 10-Oct-2013 EKG (08613) Comments: see scanned document of test done to see results reviewed today with patient Result: [MEASUREMENTS ANALYSIS] Date of Test: 10/10/2013 08:20:27; Heart Rate: 64; HI Interval: 160; QRS: 90; QT Interval: 394; Corrected QT Interval (QTc): 401; P Wave [place]: 50; QRS [place]: 5; T Wave [place]: 14; Blood Pressure: 122/78 [ECG DIAGNOSTIC STATEMENTS] [...] week Status: Active 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 Status: Active Living Situation: Lives with domestic partner. Comments: , [employer] Status: Active No Caffeine Use Status: Active No Drug Use Status: Active Non Smoker/No Tobacco Use Status: Active Tobacco Use: Never smoker. Status: Active Smoking Status Name Dates Details Never smoker Vital Signs Date Test Result Details :15 Temperature 97.9 f Comments: Method: Temporal [...] kg/m2 Body Surface Area Calculated 2.11 m2 50-Fqo-532953:07 Temperature 97.6 f Comments: Method: Temporal Pulse [...] NMR Comments: PATIENT WAS FASTINGPERFORMED BY: [facility] [address] [id number] ([id number]) LP-IR Score 81 (Abnormal) Comments: INSULIN RESISTANCE MARKER <--Insulin Sensitive Insulin Resistant--> Percentile in Reference PopulationInsulin Resistance ScoreLP-IR Score Low 25th 50th 75th High <27 27 45 63 >63LP-IR Score is inaccurate if patient is non-fasting. .The LP-IR score is a laboratory developed i [facility] that has beenassociated with insulin resistance [...] were developed and their performance characteristicsdetermined by [employer]. These assays have not been cleared by [...] High 1600 - 2000 Very High > 14-Feb-201815:35 Basic Metabolic Profile (BMP) Comments: [facility] [id number] [place], [address] GAP 10 (Normal) Range: 5-15 CO2 30.0 [...] A.D.A. criteria.Please note revised GLUCOSE reference range fuxpvgavf96/02/2018. 56-Rlh-069091:35 CBC W/Diff, Automated Comments: [facility] [address] [place], [place], [address] Absolute Lymph 2.44 {X10_3/ul} (Normal) Range: 0.83-4.51 [...] 4.2-5.4 WBC 7.3 K/mm3 (Normal) Range: 4.4-11.0 42-Hhw-346044:35 Troponin-I Comments: [facility] [address] [place], [address] TROPONIN-I < 0.015 ng/mL (Normal) Comments: TROPONIN-I EXPECTED VALUES <0.045 Negative 0.045 - 0.590 Consistent with Cardiac Damage > OR = 0.600 Critical Value Not every elevated troponin is indicative of ND. T hesevalues should be used with clinical judgement in examiningthe patient's clinical picture for diagnosis. To establisha diagnosis of ND versus myocardial injury, there must be ademonstrated rise and/ or fall in the troponin values, inaddition to ischemic symptoms, EKG changes, new regionalwall motion abnormality, and/or angiographical evidence. PLEASE NOTE: REFERENCE RANGES EDITED 11/01/1723-Sep-20178:28 Pathology Report Comments: PERFORMED BY: [facility] [id number] [facility] [id number] BY: [facility] Dermatopathology [id number] [facility] [address] [place] [address] [id number] Information: [id number] See MATER Comments: Material submitted: .RIGHT HAND BIOPSYClinical history: .BLACK SPOT ON HAND Note (Normal) Diagnosis:BLUE NEVUS.TMZ/09/28/2017Electronically signed: .Mya Fay MD, DermatopathologistGross description: .RECEIVED IN FORMALIN LABELED DIANA ESCUDERO AND PALOMO HAND IS A PUGH SKIN PUNCH BIOPSY MEASURING 3.0 MM IN ANDREW METERAND 2.0 MM THICK WITH A OLIVAS, RAISED AREA 2.5 X 1.5 MM. SUBMITTEDIN FAHAD.FUN/TMZPathologist provided ICD-10:D22.61CPT .765052 27-Bkh-46948:47 Platelet Count on Comments: PATIENT WAS FASTINGPERFORMED BY: Awesomi [facility] Ddrupjkeim2885 [facility] [id number] BY: CB [facility] Eobzgd3061 [facility] [id number] Citrated Bld Plt Count, Citrated Bld 160 {X10E3/uL} (Normal) Range: 150-379 97-Fxf-94992:47 LIPOPROTEIN, BLD, BY NMR Comments: PATIENT WAS FASTINGPERFORMED BY: [facility] Vvrpyvnevn6854 [facility] [id number] BY: [facility] Yoozrm8193 [facility] [id number] Information: PLATELET ON CITRATE BLD 302808 (69891) LP-IR Score 85 (Abnormal) Comments: INSULIN RESISTANCE MARKER <--Insulin Sensitive Insulin Resistant--> Percentile in Reference PopulationInsulin Resistance ScoreLP-IR Score Low 25th 50th 75th High <27 27 45 63 >63LP-IR Score is inaccurate if patient is non-fasting. .The LP-IR score is a laboratory developed i [facility] that has beenassociated with insulin resistance [...] were developed and their performance characteristicsdetermined by [employer]. These assays have not been cleared by [...] High 1600 - 2000 Very High > 08-Jul-20179:43 Albumin/Creatinine Ratio,Urine Comments: PATIENT NOT FASTINGPERFORMED BY: [address]Dublin [place] [id number] Alb/Creat Ratio <1.4 {mg/g_creat} (Normal) Range: 0.0-30.0 Albumin, Urine <3.0 ug/mL (Normal) Creatinine, Urine 212.4 mg/dL (Normal) :43 CBC With Differential/Platelet Comments: PATIENT NOT FASTINGPERFORMED BY: JERMAINE [facility]6370 [facility] [id number] Immature Grans (Abs) 0.0 {x10E3/uL} (Normal) Range: [...] Panel (14) Comments: PATIENT NOT FASTINGPERFORMED BY: FarehelperJersey City Medical CenterNlypiw9549 [facility] [id number] ALT (SGPT) 18 [iU]/L (Normal) Range: 0-32 [...] Glucose, Serum 100 mg/dL (Abnormal) Range: 65-99 85-Ffd-75684:43 Urinalysis, Routine Comments: PATIENT NOT FASTINGPERFORMED BY: ApplifierVibra Hospital Of Sout[facility]6370 [facility] [id number] Microscopic Examination MICNIP (Normal) Comments: Microscopic not indicated and not performed. Nitrite, Urine Negative (Normal) Urobilinogen,Semi-Qn 0.2 mg/dL (Normal) Range: 0.2-1.0 Bilirubin Negative (Normal) Occult Blood Negative (Normal) Ketones Negative (Normal) Glucose Negative (Normal) Protein Negative (Normal) WBC Esterase Negative (Normal) Appearance Clear (Normal) Urine-Color Yellow (Normal) pH 6.0 (Normal) Range: 5.0-7.5 Specific [place] 1.025 (Normal) Range: 1.005-1.030 46-Wvi-599039:21 FLU A+B DIRECT AG, (RAPID) (00351) FLU A+B DIRECT AG, (RAPID) negative (Normal) :32 Potassium Serum (49850) Comments: PATIENT NOT FASTINGPERFORMED BY: Farehelper[address] [id number] BY: [address] [id number] Potassium, Serum 3.9 mmol/L (Normal) Range: 3.5-5.2 :32 Magnesium (91546) Comments: PATIENT NOT FASTINGPERFORMED BY: Farehelper[address] [id number] BY: [address] [id number] Magnesium, Serum 2.0 mg/dL (Normal) Range: 1.6-2.3 :32 CCP ANTIBODY (10061) Comments: PATIENT NOT FASTINGPERFORMED BY: Farehelper[address] [id number] BY: [address] [id number] CCP Antibodies IgG/IgA 10 {units} (Normal) Range: 0-19 Comments: Negative <20 Weak positive 20 - 39 Moderate positive 40 - 59 Strong positive >59 :32 TSH (58807) Comments: PATIENT NOT FASTINGPERFORMED BY: [facility] Hospital[facility] Corporation[address] [id number] BY: [address] [id number] TSH 3.380 {uIU/mL} (Normal) Range: 0.450-4.500 :32 SED RATE ERYTHROCYTE Comments: PATIENT NOT FASTINGPERFORMED BY: Applifier[address] [place] [id number] BY: LabLaura [place] 460587 [facility] [id number] (20813) Sedimentation Rate-Westergren 14 mm/h (Normal) Range: 0-40 :32 C-REACTIVE PROTEIN (97872) Comments: PATIENT NOT FASTINGPERFORMED BY: LabCoJersey City Medical CenterInvwir5913 [facility] [id number] BY: LabCo[address] [id number] C-Reactive Protein, Quant 3.5 mg/L (Normal) Range: 0.0-4.9 :32 JESUS ALBERTO (ANTINUCLEAR ANTIBODY) Comments: PATIENT NOT FASTINGPERFORMED BY: [facility] Gnsvyf6238 [facility] [id number] BY: LabCo[address] [id number]; fu 3-30 (83525) JESUS ALBERTO Direct Negative (Normal) 55-Kfq-267937:37 Basic Metabolic Profile (BMP) Comments: 'TROP' Serial specimen #1, #2, #3, or #4: [address] [place] [address] Ekwckxqdfk7805 [place], [address] GAP 8 (Normal) Range: 5-15 CO2 29.0 [...] A.D.A. criteria. :37 CBC W/Diff, Automated Comments: [facility] Tdzbaeigcc74[address] [place], [address] Absolute Lymph 1.93 {X10_3/ul} (Normal) Range: 0.83-4.51 [...] Serial specimen #1, #2, #3, or #4: [facility] Yaqrxllatq9882 [address] [place], [place], [address] TROPONIN-I < 0.02 ng/mL (Normal) Comments: TROPONIN-I EXPECTED VALUES <0.05 NEGATIVE 0.06 - 0.59 AT RISK OF ND > OR = 0.60 SUGGEST ND :16 HEPATITIS C ANTIBODY (78071) Comments: CLient bill for this; PATIENT NOT FASTINGPERFORMED BY: [facility] Iumvyw2455 [facility] [id number] Hep C Virus Ab <0.1 {s/co_ratio} (Normal) Range: 0.0-0.9 Comments: Negative: < 0.8 Indeterminate: 0.8 - 0.9 Positive: > 0.9 . The CDC recommends that a positive HCV antibody result be followed up with a HCV Nucleic Acid Amplification test (993552). :32 CBC W/Diff, Automated Comments: [facility] Lwgozclgtv4[address] [place], [place], [address] Absolute Lymph 2.31 {X10_3/ul} (Normal) Range: 0.83-4.51 [...] 1'CKMB' Serial Specimen #1, #2 or #3? 1[facility] Hzbsegjtdu6468 [address] [place], [place], [address] GAP 7 (Normal) Range: 5-15 CO2 28.0 [...] 7-18 GLU 92 mg/dL (Normal) Range: 70-110 75-Ogg-851736:08 CK-MB Quantitative and Index Comments: Serial Specimen #1, #2 or #3? 1'TROP' Serial specimen #1, #2, #3, or #4: 1'CKMB' Serial Specimen #1, #2 or #3? [address] [place] [address] Clmdatwiel1467 [place], [address] CKRI 1.1 % (Normal) Range: [...] 1'CKMB' Serial Specimen #1, #2 or #3? [address] [place] [address] Lidundsfvi0322 [address] [place], [place], [address] TROPONIN-I < 0.02 ng/mL (Normal) Comments: TROPONIN-I EXPECTED VALUES <0.05 NEGATIVE 0.06 - 0.59 AT RISK OF ND > OR = 0.60 SUGGEST ND :30 CBC (Auto) (91857) Comments: PATIENT WAS FASTINGPERFORMED BY: [facility] Lnxiun9244 [facility] [id number] Platelets 165 {x10E3/uL} (Normal) Range: 150-379 RDW 13.8 % (Normal) Range: 12.3-15.4 MCHC 33.1 g/dL (Normal) Range: 31.5-35.7 MCH 31.2 pg (Normal) Range: 26.6-33.0 MCV 94 fL (Normal) Range: 79-97 Hematocrit 43.2 % (Normal) Range: 34.0-46.6 Hemoglobin 14.3 g/dL (Normal) Range: 11.1-15.9 RBC 4.59 {x10E6/uL} (Normal) Range: 3.77-5.28 WBC 6.6 {x10E3/uL} (Normal) Range: 3.4-10.8 :30 Metabolic Panel, Comments: PATIENT WAS FASTINGPERFORMED BY: Farehelper Htymyj0089 [facility] [id number] Information: [id number] Comprehensive (08129) ALT (SGPT) 14 [iU]/L (Normal) Range: 0-32 [...] mg/dL (Normal) Range: 65-99 :30 Lipid Panel (26390) Comments: PATIENT WAS FASTINGPERFORMED BY: Farehelper Ekcijw4853 [facility] [id number] LDL/HDL Ratio 3.6 {ratio_units} (Abnormal) Range: 0.0-3.2 [...] Cholesterol, Total 218 mg/dL (Abnormal) Range: 100-199 89-Mem-33976:30 Hemoglobin Glyclated (HGB A1C) Comments: PATIENT WAS FASTINGPERFORMED BY: Jumbas70 [facility] [id number]; apt[address] 4[address] (15929) Hemoglobin A1c 5.8 % (Abnormal) Range: 4.8-5.6 Comments: . Pre-diabetes: 5.7 - 6.4 Diabetes: >6.4 Glycemic control for adults with diabetes: <7.0 02-Cwo-922736:59 Urinalysis, Office (58836) UA - LEUKOCYTE ESTERASE Negative (Normal) UA - NITRITE Positive (Normal) URINE UROBILINGN FRANKO TIMED 2 mg/dL (Normal) UA - PROTEIN Negative mg/dL (Normal) UA - PH 5 (Abnormal) UA - BLOOD Negative (Normal) UA - SPECIFIC GRAVITY 1.020 (Normal) UA - KETONES Negative mg/dL (Normal) UA - BILIRUBIN Negative (Normal) UA - GLUCOSE Negative (Normal) 66-Kbw-44341:00 Anticardiolip Ab, IgA/G/M, Comments: PATIENT WAS FASTINGPERFORMED BY: DCWafers6370 [facility] [id number] BY: [facility] NPH0858 [facility] [id number] Qn Anticardiolipin Ab,IgA,Qn <9 {APL_U/mL} (Normal) Range: [...] Positive: >20 - 80 High Positive: >80 13-Msh-646902:37 Basic Metabolic Profile (BMP) Comments: Serial Specimen #1, #2 or #3? 1'TROP' Serial specimen #1, #2, #3, or #4: 1Test performed at:[facility] Bkmsbdcotq5471 [facility] [place] [address] GAP 7 (Normal) Range: 5-15 [...] Comments: Please note revised CREATININE reference range fjvqufmkc85/22/2015. BUN 16 mg/dL (Normal) Range: 7-18 GLU 134 mg/dL (Abnormal) Range: 70-110 Comments: Fasting Glucose result greater than or equal to 126 mg/dLsuggests DIABETES MELLITUS per A.D.A. criteria. 31-Kbq-580387:37 CBC W/Diff, Automated Comments: Test performed at:[facility] Xtwhoixmip4338 [facility] [place] [address] Absolute Lymph 2.35 {X10_3/ul} (Normal) [...] 4.2-5.4 WBC 7.4 K/mm3 (Normal) Range: 4.4-11.0 34-Rru-502161:37 CK-MB Quantitative and Index Comments: Serial Specimen #1, #2 or #3? 1'TROP' Serial specimen #1, #2, #3, or #4: 1Test performed at:[facility] Uyoukwauhl[address] [place] [address] CPKMB 0.8 ng/mL (Normal) Range: 0.0-5.0 Comments: CK-MB and RI Interpretation MB Relative Index Non-AMI <or= 5 NA Indeterminate > 5 <or= 4 AMI > 5 > 4 CPK TOTAL 80 U/L (Normal) Range: 26-192 73-Evu-858855:37 Troponin-I Comments: Serial Specimen #1, #2 or #3? 1'TROP' Serial specimen #1, #2, #3, or #4: 1Test performed at:[facility] Vcnsppdoyu1700 [facility] [place] [address] TROPONIN-I < 0.02 ng/mL (Normal) Comments: TROPONIN-I EXPECTED VALUES <0.05 NEGATIVE 0.06 - 0.59 AT RISK OF ND > OR = 0.60 SUGGEST ND 54-Lgp-443732:59 D-Dimer (66939) Comments: PATIENT NOT FASTINGPERFORMED BY: Farehelper[address] [id number] BY: FarehelperJersey City Medical CenterWjeplm2239 [facility] [id number] D-Dimer 0.59 {mg/L_FEU} (Abnormal) Range: 0.00-0.49 Comments: In conjunction with a non-high clinical probability assessment, anormal (<0.50 mg/L FEU) result excludes deep vein thrombosis (DVT)and pulmonary embolism (PE) with high sensitivity. 15-Nmd-77936:00 LIPID PANEL (35154) Comments: PATIENT WAS FASTINGPERFORMED BY: MineWhatlin6370 [facility] [id number] BY: TG Farehelper RBA8823 [facility] [id number] LDL/HDL Ratio 3.1 {ratio_units} (Normal) Range: 0.0-3.2 [...] Cholesterol, Total 177 mg/dL (Normal) Range: 100-199 41-Chr-669332:59 Protein S Profile Comments: PATIENT NOT FASTINGPERFORMED BY: Farehelper[address] [id number] BY: FarehelperJersey City Medical CenterLkkdra7437 [facility] [id number] Inf ormation: [id number] (88320) Protein S-Functional 119 % (Normal) Range: 60-145 Protein S, Free 108 % (Normal) Range: 56-124 Protein S, Total 137 % (Normal) Range: 58-150 00-Bji-323342:59 Protein C Profile Comments: PATIENT NOT FASTINGPERFORMED BY: Farehelper[address] [id number] BY: [facility] Vrkybs5368 Murphy RoadDublin [place] [id number] (219[address]) Protein C-Functional 120 % (Normal) Range: 74-151 Protein C Antigen 104 % (Normal) Range: 70-140 06-Fgd-52408:00 Homocysteine, Plasma Comments: PATIENT WAS FASTINGPERFORMED BY: Farehelper Ejrewd2385 Murphy RoadDublin [place] [id number] BY: Farehelper KGC9116 [facility] [id number] (09137) Homocyst(e)ine, Plasma 11.2 umol/L (Normal) Range: 0.0-15.0 96-Yzl-394071:59 ANTITHROMBIN III ACTIVTY Comments: PATIENT NOT FASTINGPERFORMED BY: Farehelper[address] [id number] BY: FarehelperJersey City Medical CenterPnsgav2847 Murphy Roadblin [place] [id number] (23529) Antithrombin Antigen 94 % (Normal) Range: 75-130 Antithrombin Activity 108 % (Normal) Range: 75-135 25-Epj-322098:59 CLOTTING FACTOR II Comments: PATIENT NOT FASTINGPERFORMED BY: Farehelper[address] [id number] BY: ApplifierCo Aokhie2465 Murphy RoadDublin [place] [id number] (74439) Factor II Activity 113 % (Normal) Range: 75-130 38-Pde-48773:00 Factor V Leiden (25802) Comments: PATIENT WAS FASTINGPERFORMED BY: [facility] Rquhls1498 Murphy RoadDublin [place] [id number] BY: [facility] JHX3211 [facility] [id number] Factor V Leiden FVNEG3 (Normal) Comments: Result: [...] in the workup for venous thrombosis include [id number] mutation in the factor II (prothrombin) gene,protein S and C deficiency, and antithromb in deficiencies.Anticardiolipin antibody and lupus anticoagulant analysismay be appropriate for certain patients, as well ashomocysteine levels. .Contact your local [facility] for information on how to orderadditional testing if desired. .Genetic counselors are available for health care* providers to discuss results at [phone] (5468). .Methodology:DNA analysis of the Factor V gene [...] Chavez, PhDTara Jhaveri, PhDNgozi Cardozo, PhD . 23-Yfp-76649:00 MTHFR (54779) Comments: PATIENT WAS FASTINGPERFORMED BY: LabCoJersey City Medical CenterHbqtiw3668 [facility] [id number] BY: [facility] IQX2083 [facility] [id number] MTHFR, DNA Analysis SE5568 (Normal) Comments: Result: C677T/Q0086DWmz mutations (C677T and B9477F) identified .Interpretation: .This individual is heterzygous for both the MTHFR C677T and N3882Nyksnmqvm (one copy of each). Compound heterozygosity for the X077Yjyt O5256W variants is unlikely to be of clinical [...] discuss these results with healthcare providers at [phone]. .Methylenetetrahydrofolate reductase (MTHFR) is a ke y enzyme in thefolate pathway and is responsible for the metabolism of homocysteine.There are two common variants in the MTHFR gene, c.655C>T(p.Rjq147Rfi), referred to as C677T, and c.1286A>C (p.G sg219Ngk),referred to as P8301H. Individuals homozygous for C677T (two copiesof the variant), have decreased activity of the MTHFR enzyme and apredisposition to hyperhomocysteinemia, particularly when d eficient infolate. Hyperhomocysteinemia is a risk factor for venous thrombosisand coronary artery disease and is associated with an increased riskof open neural tube defects. The C677T variant reilly s notindependently increase risk of these conditions in the absence ofhyperhomocysteinemia. The Q6683G variant is not associated withelevated homocysteine levels unless a C677T variant is also present;h owever, the clinical significance of heterozygosity for both X300Qshw B8659Y is controversial. Population data suggest that these twovariants are not present on the same chromosome, but rare exceptionsh ave been reported of triple variant MTHFR genotypes (ie. homozygousfor one variant and heterozygous for the other). Homozygosity trgR560A has an estimated frequency of 10% to [...] 2013; 28(8):621-647. .Dora Carrera, PhDSteffen Wilson, PhDAspen Orta PhDShiela Chavez, MS, PhDTara Jhaveri, PhDNgozi Cardozo, PhD :52 HgA1C , Office (08792) HgA1C , Office 5.8 % (Normal) Range: 4.6 - 7.1 :31 CBC With Differential/Platelet Comments: PATIENT WAS FASTINGPERFORMED BY: LabCoJersey City Medical CenterYupzwe7668 [facility] [id number] Information: [id number] Immature Grans (Abs) 0.0 {x10E3/uL} (Normal) Range: [...] 3.77-5.28 WBC 5.3 {x10E3/uL} (Normal) Range: 3.4-10.8 09-Hrt-52366:31 Comp. Metabolic Panel (14) Comments: PATIENT WAS FASTINGPERFORMED BY: LabCoJersey City Medical CenterNohkhe9969 [facility] [id number] ALT (SGPT) 18 [iU]/L (Normal) Range: 0-32 [...] Glucose, Serum 103 mg/dL (Abnormal) Range: 65-99 64-Mfk-265008:04 Urinalysis, Office (12538) UA - PH 6.0 (Normal) UA - LEUKOCYTE ESTERASE Negative (Normal) UA - NITRITE Negative (Normal) URINE UROBILINGN FRANKO TIMED 2 mg/dL (Normal) UA - PROTEIN Negative mg/dL (Normal) UA - BLOOD Negative (Normal) UA - SPECIFIC GRAVITY 1.025 (Normal) UA - KETONES Negative mg/dL (Normal) UA - BILIRUBIN Negative (Normal) UA - GLUCOSE Negative (Normal) 60-Ray-01520:51 POTASSIUM SERUM (79855) Comments: today; PATIENT NOT FASTINGPERFORMED BY: LabCoJersey City Medical CenterSxgkpg0440 [facility] [id number] Information: [id number] Potassium, Serum 3.8 mmol/L (Normal) Range: 3.5-5.2 4-Jlg-660535:30 Basic Metabolic Profile (BMP) Comments: 'TROP' Serial specimen #1, #2, #3, or #4: 1'CKMB' Serial Specimen #1, #2 or #3? 1Test performed at:[facility] Ooefdpswzd85[address] [place], [place] [address] GAP 3 (Abnormal) Range: 5-15 CO2 34.0 [...] 7-18 GLU 89 mg/dL (Normal) Range: 70-110 9-Aep-735258:30 CBC W/Diff, Automated Comments: Test performed at:[facility] Gzrefmipff7[address] [place], [place] [address] Absolute Lymph 2.01 {X10_3/ul} (Normal) Range: 0.83-4.51 [...] Specimen #1, #2 or #3? 1Test performed at:[facility] Kgisyzhpyb[address] [facility] [address] CPKMB 0.8 ng/mL (Normal) Range: 0.0-5.0 Comments: CK-MB and RI Interpretation MB Relative Index Non-AMI <or= 5 NA Indeterminate > 5 <or= 4 AMI > 5 > 4 CPK TOTAL 64 U/L (Normal) Range: 26-192 :30 D-Dimer Quantitative (DVT/PE) Comments: Test performed at:[facility] [address] [place] [address] D-DIMER QUANT 1.86 {FEU/ug/m} (Abnormal) [...] Specimen #1, #2 or #3? 1Test performed at:[facility] Lmvwhcebmv[address] [facility] [place] [address] TROPONIN-I < 0.02 ng/mL (Normal) Comments: TROPONIN-I EXPECTED VALUES <0.05 NEGATIVE 0.06 - 0.59 AT RISK OF ND > OR = 0.60 SUGGEST ND :18 HgA1C , Office (11135) HgA1C , Office 5.7 % (Normal) Range: 4.6 - 7.1 :18 Blood Glucose , Office (94266) Blood Glucose , Office 106 (Normal) 52-Ngr-470255:20 CBCD ALC 2.30 {X10_3/ul} (Normal) Range: 0.83-4.51 [...] 4.2-5.4 WBC 5.5 K/mm3 (Normal) Range: 4.4-11.0 38-Ptn-248679:20 MRSA+SAID SCRN See Note (Normal) Comments: S. AUREUS S. aureus NegativeMRSA MRSA Negative 13-Ard-487827:20 [facility] Comments: ORDER URINE CULTUREIF POSITIVE NITRITE and [...] Yellow (Normal) :54 Blood Glucose , Office (01177) Blood Glucose , Office 123 (Normal) Comments: Not Fasting :54 HgA1C , Office (96244) HgA1C , Office 6.0 % (Normal) Range: 4.6 - 7.1 :31 POTASSIUM SERUM (66918) Comments: patient having drawn in 2 wks; PATIENT NOT FASTINGPERFORMED BY: LabCoJersey City Medical CenterMtdrco5821 [facility] [id number] Information: [id number] Potassium, Serum 4.0 mmol/L (Normal) Range: 3.5-5.2 :20 Microscopic Examination Comments: PATIENT WAS FASTINGPERFORMED BY: LabCoJersey City Medical CenterUaprpp8855 [facility] [id number] Bacteria Few (Normal) Mucus Threads Present (Normal) [...] 4.2-5.4 WBC 6.5 K/mm3 (Normal) Range: 4.4-11.0 1-Fzv-156197:30 CRE GFRAA 73 mL/min (Normal) CREAT 1.0 mg/dL (Normal) Range: 0.6-1.0 GFR 60 mL/min (Normal) :30 PT INR 0.9 (Normal) PTP 11.6 s (Abnormal) Range: 11.9-14.4 :30 PTT 27.1 s (Normal) Range: 24.1-36.2 5-Mgi-347059:30 TSPAT Comments: Surgery Date: 01/04/14Hx of Preganancy in last 3 Months NoEver experience any problems with transfusion(s)? NHx of Transfusion in last 3 Months NReason for Type & Screen/Red Cells: SURGERYTime: 0600Other - use comments: UNKNOWNSURGICAL PROCEDURE: OTHER SC2 NEGATIVE (Normal) SC3 NEGATIVE (Normal) SC1 NEGATIVE (Normal) ABS NEGATIVE (Normal) BT A POSITIVE (Normal) :20 URINALYSIS, W/ MICRO (84061) Comments: PATIENT WAS FASTINGPERFORMED BY: Farehelper Xqgjwz2426 [facility] [id number] Microscopic Examination See below: (Normal) Comments: Microscopic was indicated and was performed. Nitrite, Urine Negative (Normal) Urobilinogen,Semi-Qn 1.0 mg/dL (Normal) Range: 0.0-1.9 Bilirubin Negative (Normal) Occult Blood Negative (Normal) Ketones Negative (Normal) Glucose Negative (Normal) Protein Trace (Normal) WBC Esterase 2+ (Abnormal) Appearance Clear (Normal) Urine-Color Yellow (Normal) pH 6.5 (Normal) Range: 5.0-7.5 Specific [place] 1.023 (Normal) Range: 1.005-1.030 :20 METABOLIC PANEL, COMPREHENSIVE Comments: PATIENT WAS FASTINGPERFORMED BY: Farehelper Cgjmjs3573 [facility] [id number] (90841) ALT (SGPT) 20 [iU]/L (Normal) Range: 0-32 [...] mg/dL (Abnormal) Range: 65-99 :20 LIPID PANEL (51635) Comments: PATIENT WAS FASTINGPERFORMED BY: [employer]70 [facility] [id number] LDL/HDL Ratio 3.8 {ratio_units} (Abnormal) Range: 0.0-3.2 [...] MANUAL DIFF Comments: PATIENT WAS FASTINGPERFORMED BY: SeeJay6370 [facility] [id number] Information: [id number] (05195) Immature Grans (Abs) 0.0 {x10E3/uL} (Normal) Range: [...] (Normal) Range: 3.4-10.8 :09 HgA1C , Office (86615) HgA1C , Office 5.8 % (Normal) Range: 4.6 - 7.1 :09 Blood Glucose , Office (87726) Blood Glucose , Office 129 (Normal) Comments: not fasting 19-Uor-845106:17 CMP GAP 4 (Abnormal) Range: 5-15 CO2 [...] (Normal) Range: 70-110 :17 HgA1C , Office (87530) HgA1C , Office 5.9 % (Normal) Range: 4.6 - 7.1 :17 Blood Glucose , Office (24904) Blood Glucose , Office 107 (Normal) :15 [...] be sent to the patient by the [facility] within 30 days. Approximately 10% of breast cancers are not detected by mammography. Anormal mammogram should not delay biopsy of a clinically suspiciousabnormality. Signed:Payton DuttaMarch 15, 2013 at 7:58:55 AM [id number] Signed GP/GP If you are the referring physician and would like to consult with theradiologist who provided this interpretation, please co ntact Unique Yusuf at [phone]. If this radiologist is unavailable, youwill be directed to another radiologist to assist. If you are a patient with a question regarding this report, pleas econtactyour referring physician directly. Professional Interpretation Provided By: [employer], Phone , These documents contain legally protected [...] documents. Dictated on 03/15/13 0 758 by Gali Salgado MDranscribed on 03/15/13 0836 by ITS IMPORTSign by Aaron Salgado MD on 03/15/13 0837 Sign by: Aaron Salgado MD 90-Ugc-97013:25 Blood Glucose , Office (75602) Blood Glucose , Office 134 (Normal) 80-Nky-17542:25 HgA1C , Office (12434) HgA1C , Office 5.8 % (Normal) Range: 4.6 - 7.1 3-Qna-916060:22 PELVIC (NON ) Radiology Report See Note [...] Salgado M.D.January 23, 2013 at 2:31:38 PM [id number] Signed GP/GP If you are the referring physician and would like to consult with theradiologist who provided this interpretati on, please contact Unique Yusuf at [phone]. If this radiologist is unavailable, youwill be directed to another radiologist to assist. If you are a patient with a question regarding this report, pleasecontactyour referring physician directly. Professional Interpretation Provided By: [employer], Phone , These documents contain legally protected [...] size of the right kidney. The right ntarjcmerzgmmv14.4 cm. Ambika l renal cortex. The right cortex measures 1.0 cm. Thereisa 1.1 cm x 1.0 cm x 0.9 cm cyst in the inferior pole. There is no righthydronephrosis. Left Kidney: Normal size of the left kidney. The left kidney flqzsipi41.5cm. Normal renal cortex. The left cortex measures 1.9 cm. There is nodemonstrated renal mass or cyst. There is no left hydronephrosis. Aorta: Unremarkable. I.V.C.: The IVC is pa tent. There is no ascites. IMPRESSION:Fatty infiltration of the liver. The patient is status postcholecystectomy. Signed:Aaron Salgado M.D.January 23, 2013 at 2:2 8:11 PM [id number] Signed GP/GP If you are the referring physician and would like to consult with theradiologist who provided this interpretation, please contact Payton Yusuf at [phone]. If this radiologist is unavailable, youwill be directed to another radiologist to assist. If you are a patient with a question regarding this report, pleasecontactyour referring phys ician directly. Professional Interpretation Provided By: [employer], Phone , These documents contain legally protected [...] Salgado MD on 01/24/13 1041 Sign by: Damian FLYNN,Aaron 23-Jan-20130:00 TRANSVAGINAL NON- Radiology Report See Note [...] Salgado M.D.January 23, 2013 at 2:31:38 PM [id number] Signed GP/GP If you are the referring physician and would like to consult with theradiologist who provided this interpretati on, please contact Unique Yusuf at [phone]. If this radiologist is unavailable, youwill be directed to another radiologist to assist. If you are a patient with a question regarding this report, pleasecontactyour referring physician directly. Professional Interpretation Provided By: [employer], Phone , These documents contain legally protected [...] 01/24/13 1043 Sign by: Aaron Salgado MD 49-Mdt-170468:11 CBC, Platelets & Auto Comments: PATIENT NOT FASTINGPERFORMED BY: [facility]CoJer[facility] CenterYbiyhc7369 [facility] [id number] Information: [id number] Diff (67301) Immature Grans (Abs) 0.0 {x10E3/uL} (Normal) Range: [...] (Normal) Range: 70-110 :33 HgA1C , Office (15543) HgA1C , Office 5.8 % (Normal) Range: 4.6 - 7.1 :53 METABOLIC PANEL, COMPREHENSIVE Comments: PATIENT WAS FASTINGPERFORMED BY: [facility]6370 [facility] [id number] (09296) ALT (SGPT) 19 [iU]/L (Normal) Range: 0-32 [...] MANUAL DIFF Comments: PATIENT WAS FASTINGPERFORMED BY: [facility]CoJer[facility] CenterVlszxw7365 [facility] [id number] Information: [id number] (23550) Immature Grans (Abs) 0.0 {x10E3/uL} (Normal) Range: [...] 3.77-5.28 WBC 7.5 {x10E3/uL} (Normal) Range: 4.0-10.5 09-Hoi-261218:53 LIPID PANEL (15067) Comments: PATIENT WAS FASTINGPERFORMED BY: [facility]6370 [facility] [id number] LDL/HDL Ratio 3.3 {ratio_units} (Abnormal) Range: 0.0-3.2 LDL Cholesterol Calc 136 mg/dL (Abnormal) Range: 0-99 HDL Cholesterol 41 mg/dL (Normal) Comments: According to ATP-III Guidelines, HDL-C >59 mg/dL is considered anegative risk factor for CHD. VLDL Cholesterol José Luis 45 mg/dL (Abnormal) Range: 5-40 Triglycerides 226 mg/dL (Abnormal) Range: 0-149 Cholesterol, Total 222 mg/dL (Abnormal) Range: 100-199 21-Rbr-14864:51 BILAT SCRN DIGITAL & CAD Radiology Report [...] Salgado M.D.January 18, 2012 at 10:04:04 AM [id number] Signed GP/GP If you are the referring physician and would like to consult with theradiologist who pro vided this interpretation, please contact Unique Yusuf at [phone]. If this radiologist is unavailable, youwill be directed to another radiologist to assist. If you are a patient with a q uestion regarding this report, pleasecontactyour referring physician directly. Professional Interpretation Provided By: [employer], Phone , Dictated on 01/18/12 0759 by Damian FLYNN,DavidriClevelandranscribed on 01/18/12 1010 by ITS IMPORTSign by Damian FLYNN,Aaron on 01/18/12 1011 Sign by: Aaron Salgado MD 4-Dna-378223:43 MICROALBUMIN: CREATININE RATIO Comments: PATIENT WAS FASTINGPERFORMED BY: SeeJay6370 [facility] [id number] (66235) AND (70507) Microalb/Creat Ratio 1.4 {mg/g_creat} (Normal) Range: 0.0-30.0 Microalbumin, Urine 2.3 ug/mL (Normal) Range: 0.0-17.0 Creatinine, Urine 167.9 mg/dL (Normal) Range: 15.0-278.0 :43 METABOLIC PANEL, COMPREHENSIVE Comments: PATIENT WAS FASTINGPERFORMED BY: SeeJay6370 [facility] [id number] (04059) ALT (SGPT) 24 [iU]/L (Normal) Range: 0-40 [...] Glucose, Serum 95 mg/dL (Normal) Range: 65-99 2-Tww-032086:43 LIPID PANEL (96280) Comments: PATIENT WAS FASTINGPERFORMED BY: SeeJay6370 [facility] [id number] LDL/HDL Ratio 3.2 {ratio_units} (Normal) Range: 0.0-3.2 [...] MANUAL DIFF Comments: PATIENT WAS FASTINGPERFORMED BY: BEETmobilePresbyterian HospitalQvzfyq1457 [facility] [id number] Information: [id number] (17869) Immature Grans (Abs) 0.0 {x10E3/uL} (Normal) Range: [...] population. WBC 5.9 {x10E3/uL} (Normal) Range: 4.0-10.5 64-Kwd-350623:18 HgA1C , Office (45917) HgA1C , Office 6.1 % (Normal) Range: 4.6 - 7.1 01-Khq-746624:18 Blood Glucose , Office (76588) Blood Glucose , Office 125 (Normal) 20-Phk-783947:00 Thin prep Pap Comments: Source.............Cervical;EndocervicalNo. of containers..01 CYTYC Thin Prep VialPATIENT NOT FASTINGPERFORMED BY: [facility] [address] [facility] [place] [id number] Information: [id number] (51808) Note: PAPSMR (Normal) Comments: The Pap smear [...] present.V72.31 ; Routine gynecolog ical examsaeed Batres Airline Security Representative (ASCP) 26-Hbl-56783:00 BILAT SCRN DIGITAL & CAD Radiology Report [...] suspiciousabnormality. Dictated on 11/03/10 0608 by Damian FLYNN,DavidrieleTranscribed on 11/04/10618 by ITS IMPORTSign by Aaron Salgado MD on 11/04/10619 Sign by: __ Aaron Salgado MD 5-Dku-954469:24 CBC & PLATELETS (AUTO) Comments: PATIENT NOT FASTINGPERFORMED BY: LabCoJer[facility] Medical CenterLpgzmn0335 [facility] [id number] Information: [id number]; appt 11/28/10 (63549) MCH 31.6 pg (Normal) Range: 27.0-34.0 MCHC [...] 45 63 >63Performed at: S7 - [employer] [address] [place], [place] [id number] Director: Stefano Mace PhD, Phone: [phone] HDL SIZE <TEST NOT PERFORMED> (Normal) INSULIN [...] TOT 209 mg/dL (Abnormal) LIPIDS . (Normal) 6-Nqm-410150:12 CULT, DP WOUND Comments: COMMENTS: CULTURE, SENSITIVITY,AREOBES, [...] STRIMETHOPRIM/SULFAMETHOXAZ $ <=10 SVANCOMYCIN $ 1 S 9-Kbv-931890:10 CBC Comments: COMMENTS: AC ROOM 6 HCT [...] 1 S :56 Blood Glucose , Office (62893) Blood Glucose , Office 102 (Normal) :56 HgA1C , Office (75722) HgA1C , Office 6.1 % (Normal) Range: 4.6 - 7.1 :49 MICROALBUMIN: CREATININE Comments: PATIENT WAS FASTINGPERFORMED BY: S7 [employer] Sch5540 [facility] [id number] BY: DCWafers6370 [facility] [id number] RATIO (26731) AND (08158) Microalb/Creat Ratio 2.3 {mg/g_creat} (Normal) Range: 0.0-30.0 Microalbumin, Urine 3.4 ug/mL (Normal) Range: 0.0-17.0 Creatinine, Urine 150.2 mg/dL (Normal) Range: 15.0-278.0 87-Zvy-42224:49 LIPOPROTEIN, BLD, BY NMR Comments: PATIENT WAS FASTINGPERFORMED BY: S7 [employer]0 [facility] [id number] BY: SeeJay6370 [facility] [id number] Information: ADD [id number] AND DRAW FEE 99 9559 (01251) LP-IR 83 Comments: The LP-IR Score combines [...] (Abnormal) Choleste 220 mg/dL rol, (Abnormal) Total 67-Zxm-04196:49 METABOLIC PANEL, Comments: PATIENT WAS FASTINGPERFORMED BY: Fede [employer] Zom3077 [facility] [id number] BY: JERMAINE [facility] Etiugt8349 [facility] [id number] COMPREHENSIVE (72101) ALT (SGPT) 22 [iU]/L (Normal) Range: 0-40 [...] Glucose, Serum 107 mg/dL (Abnormal) Range: 65-99 92-Ovw-89570:49 LIPID PANEL (31745) Comments: PATIENT WAS FASTINGPERFORMED BY: S7 [employer] [facility] [id number] BY: [employer]70 [facility] [id number] LDL Cholesterol Calc 135 mg/dL (Abnormal) Range: 0-99 LDL/HDL Ratio 4.1 {ratio_units} (Abnormal) Range: 0.0-3.2 VLDL Cholesterol José Luis 52 mg/dL (Abnormal) Range: 5-40 HDL Cholesterol 33 mg/dL (Abnormal) Comments: According to ATP-III Guidelines, HDL-C >59 mg/dL is considered anegative risk factor for CHD. Triglycerides 261 mg/dL (Abnormal) Range: 0-149 Cholesterol, Total 220 mg/dL (Abnormal) Range: 100-199 84-Ook-04466:49 CBC WITH MANUAL DIFF Comments: PATIENT WAS FASTINGPERFORMED BY: S7 [employer] [facility] [id number] BY: [employer] Zodsbo3382 [facility] [id number] (37091) Baso (Absolute) 0.1 {x10E3/uL} (Normal) Range: 0.0-0.2 [...] 3.80-5.10 WBC 6.7 {x10E3/uL} (Normal) Range: 4.0-10.5 2-Wdb-187884:35 MARYJANE CULTURE-OTHER (86675) Comments: PATIENT NOT FASTINGPERFORMED BY: [employer] Riyaqr4690 [facility] [id number] Information: SRC:THRT [id number] Result 1 RRF (Normal) Comments: Routine respiratory bin Upper Respiratory Culture Final report (Normal) :07 Rapid Strep Test, Office (36537) Rapid Strep Test, Negative (Normal) Office :2 Potassium, Serum 3.8 mmol/L (Normal) Comments: PATIENT WAS FASTINGPERFORMED BY: FarehelperJersey City Medical CenterPgoglg5605 [facility] [id number] Range: 3.5-5.2 82-Opp-496710:00 BILAT SCRN DIGITAL & CAD Radiology Report See Note (Normal) Comments: Exam Number: [id number] MAMMOGRAM, BILATERAL SCREENING DIGITAL AND CAD HISTORYRoutine [...] werealso examined with computer-aided detection s oftware (Deminos.). Reported By: KENNA SWEET M.D. 27-Feb-20098:24 Lipid Panel (76612) Comments: PATIENT WAS FASTINGClinical Information: ADD 180053, I92567 PERFORMED BY: [facility] [id number] Cholesterol, Total 224 mg/dL (Abnormal) Range: 100-199 HDL Cholesterol 31 mg/dL (Abnormal) Comments: According to ATP-III Guidelines, HDL-C >59 mg/dL is considered anegative risk factor for CHD. LDL Cholesterol Calc 122 mg/dL (Abnormal) Range: 0-99 LDL/HDL Ratio 3.9 {ratio_units} (Abnormal) Range: 0.0-3.2 Triglycerides 354 mg/dL (Abnormal) Range: 0-149 VLDL Cholesterol José Luis 71 mg/dL (Abnormal) Range: 5-40 21-Xpv-882494:16 JESUS ALBERTO (ANTINUCLEAR ANTIBODY) Comments: PATIENT NOT FASTINGPERFORMED BY: [employer]70 [facility] [id number] (13959) Antinuclear Antibodies Direct Negative (Normal) 75-Bbv-694417:16 C-REACTIVE PROTEIN (13869) Comments: PATIENT NOT FASTINGPERFORMED BY: [employer]70 [facility] [id number] C-Reactive Protein, Quant 8.0 mg/L (Abnormal) Range: 0.0-4.9 75-Txj-041456:16 CBC (AUTO) (52565) Comments: PATIENT NOT FASTINGPERFORMED BY: [employer] [facility] [id number] Hematocrit 42.4 % (Normal) Range: 34.0-44.0 Hemoglobin 14.4 g/dL (Normal) Range: 11.5-15.0 MCH 31.9 pg (Normal) Range: 27.0-34.0 MCHC 34.0 g/dL (Normal) Range: 32.0-36.0 MCV 94 fL (Normal) Range: 80-98 Platelets 160 {x10E3/uL} (Normal) Range: 140-415 RBC 4.52 {x10E6/uL} (Normal) Range: 3.80-5.10 RDW 14.1 % (Normal) Range: 11.7-15.0 WBC 7.6 {x10E3/uL} (Normal) Range: 4.0-10.5 :16 Folate (18453) Comments: PATIENT NOT FASTINGPERFORMED BY: FarehelperJersey City Medical CenterQkhgub9280 [facility] [id number] Folate (Folic Acid), Serum 17.4 ng/mL (Normal) Comments: Indeterminate: 3.4 - 5.4 Deficient: <3.4 :16 METABOLIC PANEL, COMPREHENSIVE Comments: PATIENT NOT FASTINGPERFORMED BY: FarehelperLisa [place] 5936470 [facility] [id number] (09164) A/G Ratio 1.2 (Normal) Range: 1.1-2.5 Albumin, [...] Sodium, Serum 142 mmol/L (Normal) Range: 135-145 83-Sqo-518525:16 RHEUMATOID FACTOR-QUANT (80289) Comments: PATIENT NOT FASTINGPERFORMED BY: [employer] Lffwik3695 [facility] [id number] RA Latex Turbid. 9.3 {IU/mL} (Normal) Range: 0.0-13.9 09-Uoa-676017:16 SED RATE ERYTHROCYTE (72440) Comments: PATIENT NOT FASTINGPERFORMED BY: [employer] Yhsuhs2273 [facility] [id number] Sedimentation Rate-Westergren 21 mm/h (Normal) Range: 0-30 32-Har-143508:16 TSH (44698) Comments: PATIENT NOT FASTINGPERFORMED BY: [employer] Aelcgr8445 [facility] [id number] TSH 2.690 {uIU/mL} (Normal) Range: 0.450-4.500 66-Uvm-697547:16 VITAMIN B-12 (CYANOCOBALAMIN) Comments: PATIENT NOT FASTINGPERFORMED BY: [employer] Xwgrph6251 [facility] [id number] (44803) Vitamin B12 348 pg/mL (Normal) Range: 211-911 23-Jan-20099:35 Lipid Panel (15162) Comments: PATIENT WAS FASTINGClinical Information: ADD 558408, B54926 PERFORMED BY: [facility] Tvtpyq3310 [facility] [id number] Cholesterol, Total 208 mg/dL (Abnormal) Range: 100-199 HDL Cholesterol 32 mg/dL (Abnormal) Comments: According to ATP-III Guidelines, HDL-C >59 mg/dL is considered anegative risk factor for CHD. LDL Cholesterol Calc 124 mg/dL (Abnormal) Range: 0-99 LDL/HDL Ratio 3.9 {ratio_units} (Abnormal) Range: 0.0-3.2 Triglycerides 261 mg/dL (Abnormal) Range: 0-149 VLDL Cholesterol José Luis 52 mg/dL (Abnormal) Range: 5-40 :47 HgA1C , Office (17392) HgA1C , Office 5.8 % (Normal) Range: 4.6 - 7.1 :47 Blood Glucose , Office (07369) Blood Glucose , Office 128 (Normal) :43 Urinalysis, Office (79701) UA - LEUKOCYTE ESTERASE Trace (Normal) UA [...] Indication: Acute sinusitis Planned Observations LIPID PANEL (07991)Indication: Mixed hyperlipidemia On: 7-Iad-399753:45 Request Platelet 43390 (citrate, nonclumping tube)Indication: Thrombocytopenia, unspecified On: 22-Jul-20178:19 Request Metabolic Panel, Comprehensive (89201)Indication: Benign essential hypertension On: 16-Wcb-484332:46 Request MICROALBUMIN: CREATININE RATIO (61745) AND (03675)Indication: Benign essential hypertension On: :45 Request URINALYSIS (43154)Indication: Benign essential hypertension On: :45 Request CBC WITH MANUAL DIFF (34232)Indication: Benign essential hypertension On: :45 Request Platelet Count, Citrated (19115)Indication: Thrombocytopenia, unspecified On: :11 Request LIPOPROTEIN, BLD, BY NMR (39122)Indication: Mixed hyperlipidemia On: :07 Request Lipase (74509)Indication: Abdominal pain On: :24 Request Comments: add to hospital labs. Amylase (89254)Indication: Abdominal pain On: :24 Request Comments: add to hospital labs. Antiphospholipid atb (15834)Indication: Pulmonary emboli On: : Request ANTICOAG ANTTHROMB III & ASSAY (03590)Indication: Pulmonary emboli On: : Request METABOLIC PANEL, COMPREHENSIVE (16942)Indication: Benign essential hypertension On: :37 Request Comments: in three months (approximately) CBC with auto diff (06024)Indication: Benign essential hypertension On: :37 Request Comments: in three months (approximately) Troponin I (18462)Indication: Chest pain at rest On: 3-Zsd-801247:01 Request CPK MB FRACTION (53014)Indication: Chest pain at rest On: 3-Cgx-892409:01 Request CREATINE KINASE TOTAL (96412)Indication: Chest pain at rest On: 3-Amc-285270:01 Request D-Dimer (38641)Indication: Chest pain at rest On: 7-Xhp-378344:00 Request Metabolic Panel, Basic (45444)Indication: Chest pain at rest On: :58 Request CBC (Auto) (66120)Indication: Chest pain at rest On: :58 Request URINALYSIS, W/ MICRO (40275)Indication: Benign essential hypertension On: :29 Request METABOLIC PANEL, COMPREHENSIVE (20615)Indication: Benign essential hypertension On: :29 Request LIPID PANEL (10851)Indication: Benign essential hypertension On: :29 Request CBC W/AUTO DIFF WBC (61863)Indication: Benign essential hypertension On: :29 Request URINALYSIS (93569)Indication: UTI (lower urinary tract infection) On: :49 Request LIPID PANEL (17586)Indication: Benign essential hypertension On: : Request CBC WITH MANUAL DIFF (58735)Indication: Thrombocytopenia, unspecified On: :27 Request METABOLIC PANEL, COMPREHENSIVE (99111)Indication: Benign essential hypertension On: :27 Request TSH (THYROID STIMULATING HORMONE) (47249)Indication: Post-menopausal bleeding On: :37 Request PROLACTIN (09600)Indication: Post-menopausal bleeding On: :37 Request HEPATIC FUNCTION PANEL (14332)Indication: Hyperglyceridemia On: :05 Request LIPOPROTEIN, BLD, BY NMR (21074)Indication: Hyperglyceridemia On: :04 Request CBC, Platelets & Auto Diff (02680)Indication: Thrombocytopenia, unspecified On: :04 Request Comments: citrate tube Potassium Serum (51960)Indication: Hypokalemia On: 25-Ycs-818917:36 Request Planned Encounters Medical; JULIANNEP Weight Check - On: 03-May-2018 13:00 [facility] Internal Medicine [facility]; JULIANNEP Pre Wellness Exam (DB Nurse) - On: 26-Jul-2018 8:00 [facility]; VIP Wellness Exam (Doctor) - On: 16-Aug-2018 8:00 [facility] Internal Medicine Kelly Hannah MD, MD, Dana M Planned Procedures EKG (96833)By: Kelly Hannah MD On: 02-Dec-2017 Intent Kelly Hannah MD Radiology - Foot - LeftBy: Brielle On: 12-Aug-2017 Kelly Beltrán MD, MD, Dana M TDAP VACCINE >7 IM (43878)By: On: 22-Jul-2017 Kelly Espinal MD, MD, Dana Comments: tdap 0.5mL prefilled syringelot:2UR15upq: DELT IMpt tolerated wellAD TRUSS DESIGNER M MAMMOGRAM BREAST BILATERAL SCREENING On: 02-Apr-2017 Intent DIGITAL (75801)By: Kelly Hannah MD, MD, Dana M Kenalog Injection, 10 mgm On: 15-Feb-2017 Intent (J3301)By: Kelly Hannah MD Comments: lot numer [id number] 05/08 eliot [id number] 06/21/18 Kelly Hannah MD Echo CompleteBy: Kelly Hannah MD On: 10-Sep-2016 Intent Kelly Hannah MD Comments: rule out pericarditis and ? pericardial fluid EKG (91601)By: Kelly Hannah MD On: 04-Sep-2016 Intent Kelly Hannah MD Comments: see scanned document of test done to see results reviewed today with patient Bone Density StudyBy: Brielle FLYNN, On: 09-Jun-2016 Intent Kelly Hernandez MD Kenalog Injection, 10 mgm On: 21-Apr-2016 Intent (J3301)By: Kelly Hannah MD Comments: buupivacaine lot [id number] 06-21-17 kenalog YER0815 09-05 Kelly Hannah MD DOPPLER ULTRASOUND OF RIGHT UPPER On: 20-Apr-2016 Intent EXTREMITY FOR VENOUS THROMBOEMBOLISM (32606)By: Kelly Hannah MD, MD, Dana M MAMMOGRAM, SCREENING, BOTH BREAST On: 27-Feb-2016 Intent (60437)By: Kelly Hannah MD, MD, Dana M Venous Doppler - BothBy: Brielle FLYNN, On: 06-Dec-2015 Intent Kelly Hernandez MD Comments: lower legs rule out DVT ADMINISTRATION OF INFLUENZA VIRUS On: 18-Apr-2015 Intent VACCINE (G0008)By: Kelly Hannah MD Comments: Lot:[id number]:IMLocation:Rt deltoiiddose: .5mlGiven by:Kelly Potter MD FLU VAC, SPLIT, >3 YEARS, INTRAMUSC On: 18-Apr-2015 Intent (31400)By: Kelly Hannah MD Comments: Lot #:[id number] date:Amount given:0.5mlRoute: IMSite given:L DltdGiven by: Peyton CHAMPION and ABN signed Quad Kelly Gonzales MD BILATERAL MAMMOGRAMS (19387)By: On: 05-Nov-2014 Intent Kelly Hannah MD, MD, Dana M CT - Chest (IV Contrast Needed)By: On: 23-Jul-2014 Intent Kelly Hannah MD, MD, Dana M COMPUTED TOMOGRAPHY ANGIOGRAPHY OF On: 23-Jul-2014 Intent CHEST WITH AND WITHOUT CONTRAST Comments: rule out PE (90859)By: Kelly Hannah MD, MD, Dana M EKG (97066)By: Lindsey Verde DO On: 05-Jul-2014 Intent Comments: sinus johanny with no chg MAMMOGRAM, SCREENING, BOTH BREAST On: 26-Apr-2014 Intent (17546)By: Kelly Hannah MD, MD, Dana M BILATERAL MAMMOGRAMS (56218)By: On: 27-Mar-2014 Intent Kelly Hannah MD, MD, Dana M IMMUNIZ ADMNIN, 1 VAC, SNGL/COMBO On: 27-Mar-2014 Intent (85170)By: Kelly Hannah MD Comments: Lot #[id number]-L dltd, IMDose prefilled syringegiven by:MLJOE alanizNVIS and ABN signed Kelly Hannah MD FLU VAC, SPLIT, >3 YEARS, INTRAMUSC On: 27-Mar-2014 Intent (88647)By: Kelly Hannah MD, MD, Dana M Eprescribed prescriptions (G8553)By: On: 10-Oct-2013 Intent Kelly Hannah MD, MD, Dana M Phenergan Injection, up to 50 mg On: 22-Sep-2013 Intent (J2550)By: Nona Whiting CNP Comments: [id number], IM Nyla, TRUSS DESIGNER INFUSION, NORMAL SALINE SOLUTION , On: 22-Sep-2013 Intent 1000 CC (Special Coverage Instructions Apply. See MCM: 2049) (J7030)By: Nona Whiting CNP HYDRATION IV INFUSION, INIT On: 22-Sep-2013 Intent (69539)By: Nona Whiting CNP Eprescribed prescriptions (G8553)By: On: 10-Jul-2013 Intent Nathalie Nicole Breast Screening - BilateralBy: On: 06-Feb-2013 Intent Kelly Hannah MD, MD, Dana M IMMUNIZ ADMNIN, 1 VAC, SNGL/COMBO On: 06-Feb-2013 Intent (83392)By: [place] ([address])By: jT, On: 06-Feb-2013 Intent SUZY Ultrasound - Abdomen Complete & On: 18-Jan-2013 Intent PelvisBy: Nona Whiting CNP EKG (91146)By: Kelly Hannah MD On: 12-Jul-2012 Intent Kelly Hannah MD Comments: see scanned document of test done to see results reviewed today with patient Eprescribed prescriptions (G8553)By: On: 12-Jul-2012 Intent Long TRUSS DESIGNER, Nyla L MAMMOGRAM, SCREENING, BOTH BREASTS On: 06-Oct-2011 Intent (35684)By: Kelly Hannah MD Comments: 11-04-11 Kelly Hannah MD MAMMOGRAM, SCREENING, BOTH BREASTS On: 28-Nov-2010 Intent (09470)By: Kelly Hannah MD, MD, Dana M MAMMOGRAM, SCREENING, BOTH BREASTS On: 23-Oct-2010 Intent (99950)By: Kelly Hannah MD, MD, Dana M EEGBy: Lindsey Verde DO On: 20-Aug-2010 Intent EKG (38259)By: Kelly Hannah MD On: 20-Dec-2009 Intent Kelly Hannah MD EKG (92564)By: Kelly Hannah MD On: 17-Jan-2009 Intent Kelly Hannah MD MAMMOGRAM, SCREENING, BOTH BREASTS On: 17-Jan-2009 Intent (17672)By: Kelly Hannah MD, MD, Dana M Pulse Oximetry (06684)By: Yung, On: 04-Jul-2008 Intent Gabriela Comments: 98% Phenergan Injection, up to 50 mg On: 25-Apr-2008 Intent (J2550)By: Nona Whiting CNP Comments: 25mg given IMAmt: 1mlLot: [id number]: 03/2010Route: IMSite: left hipTolerated: wellGiven By: NATASHA Plata INFUSION, NORMAL SALINE SOLUTION , On: 25-Apr-2008 Intent 1000 CC (Special Coverage Comments: IV Therapy initiated (Hamzah Black, TRUSS DESIGNER)22G, 1inchSite: right wristTolerated: wellB. NATASHA Mckinnon Instructions Apply. See MCM: 2049) (J7030)By: Nona Whiting CNP HYDRATION IV INFUSION, INIT On: 25-Apr-2008 Intent (27105)By: Nona Whiting CNP FLU VAC, SPLIT, >3 YEARS, INTRAMUSC On: 21-May-2006 Intent (90287)By: SUZY Spencer IMMUNIZ ADMNIN, 1 VAC, SNGL/COMBO On: 21-May-2006 Intent (03405)By: SUZY Spencer Planned Medications INFUSION, NORMAL SALINE [...] Instructions Indication: Depression Encounters Office Visit On: 24-Feb-2018 12:13 Encounter Reason: [...] for Tdap vaccination (Renamed from Need for hefnptpgys-zfshsdg-hypuuahps (Tdap) vaccine, adult/adolescent), Thrombocytopenia, unspecified Comprehensive Internal [...] Cold Symptoms: Pt just flew home from [place] yesterday.- yellow green nasal discharge- sx for [...]
--- OUTSIDE RECORDS SUMMARY | 2018-07-14 07:43 | XMS RPT_ITS ---
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 AUTOMATED Collected: 02/14/2018 Status: F Source: [place] 3:35 PM [facility] REPOSITORY TYPE CODE TESTS RESULT OUT OF RANGE REFERENCE UNITS LAB L100.1000 4.4-11.0 K/mm3 Normal WBC 7.3 LAB L100.1200 4.2-5.4 M/mm3 Normal RBC 4.59 LAB L100.1300 12.0-15.0 g/dl Normal HGB 14.4 LAB L100.1400 37-47 % Normal HCT 44.4 LAB L100.1500 81-99 fL Normal MCV 96.7 LAB L100.1600 27.0-32.0 pg Normal MCH 31.4 LAB L100.1700 32-36 g/gl Normal MCHC 32.4 LAB L100.1810 11.6-14.6 % Normal RDW CV 13.4 LAB L100.1820 35.1-43.9 fl High RDW SD 47.5 LAB L100.1900 150-450 K/mm3 Low PLT 126 LAB L100.2000 6.2-12.0 fl High MPV 12.6 LAB L100.2100 47-70 % Normal NEUT% 55.4 LAB L100.2200 19-41 % Normal LY% 33.6 LAB L100.2300 0-10 % Normal MONO% 7.2 LAB L100.2400 0-5 % Normal EO% 3.3 LAB L100.2500 0-1 % Normal BASO% 0.4 LAB L100.2550 0.0-0.9 % Normal IM GRAN % 0.100 Result Comment: IG% - Immature Granulocytes (promyelocytes, myelocytes and metamyelocytes) > 1% indicates that a LEFT SHIFT is Present. LAB L100.2620 2.0-7.7 X10 3/uL Normal Absolute Neut 4.0 LAB L100.2720 0.83-4.51 X10 3/ul Normal Absolute Lymph 2.44 Performed By: #### L100.0100 #### [facility] [address] [place], [address] BASIC METABOLIC Collected: 02/14/2018 Status: F Source: [place] PROFILE (BMP) 3:35 PM [facility] REPOSITORY TYPE CODE TESTS RESULT OUT OF RANGE REFERENCE UNITS LAB L501.0100 74-106 mg/dL High GLU 107 Result Comment: Fasting Glucose result from 100 to 125 mg/dL suggests IMPAIRED HOMEOSTASIS per A.D.A. criteria. Please note revised GLUCOSE reference range effective 2017. LAB L501.1000 7-18 mg/dL Normal BUN 18 LAB L501.1100 0.55-1.02 mg/dL High CREAT,SERUM 1.15 Result Comment: The validity of the calculated GFR AND GFRAA in patients over 70 years has not been determined. Clinical correlation is essential. LAB L501.1110 >60 mL/min Low EST GFR 50 Result Comment: Non- GFR Calc LAB L501.1115 >60 mL/min Normal EST GFR - AA 61 Result Comment: GFR Calc LAB L501.1255 ml/min Normal Estimated CRCL 45.05 LAB L501.1300 10-20 RATIO Normal BUN/CRE 15.7 LAB L501.2200 8.5-10 mg/dL Normal .1 CA 9.2 LAB L501.5300 136-14 mmol/L Normal 5 NA 145 LAB L501.5600 3.5-5. mmol/L Low 1 K 3.4 LAB L501.5900 98-107 mmol/L Normal CL 105 LAB L501.6100 21.0-3 mmol/L Normal 2.0 CO2 30.0 LAB L501.6200 5-15 Normal GAP 10 Performed By: #### L500.2500, L501.4010 #### [facility] [address] [place], [place], [address] TROPONIN-I Collected: 02/14/2018 Status: F Source: [place] 3:35 PM [facility] REPOSITORY TYPE CODE TESTS RESULT OUT OF RANGE REFERENCE UNITS LAB L501.4010 <0.045 ng/mL Normal < 0.015 TROPONIN-I Result Comment: TROPONIN-I EXPECTED VALUES <0.045 Negative 0.045 - 0.590 Consistent with Cardiac Damage > OR = 0.600 Critical Value Not every elevated troponin is indicative of [place]. These values should be used with clinical judgement in examining the patient's clinical picture for diagnosis. To establish a diagnosis of [place] versus myocardial injury, there must be a demonstrated rise and/or fall in the troponin values, in addition to ischemic symptoms, EKG changes, new regional wall motion abnormality, and/or angiographical evidence. PLEASE NOTE: REFERENCE RANGES EDITED 17 Performed By: #### L500.2500, L501.4010 #### [facility] [address] [facility] [place], [place], [address] CHEST 1 VIEW Observed: 02/14/2018 Status: F Source: [place] (PORTABLE) 3:14 PM [facility] REPOSITORY [facility] Imaging Services [address] [place] [address] Chest 1 View (Portable) MR#: [id number] Acct: [id number] Name: POONAM ESCUDERO Rep #: [id number] : 1950 F 68 From: Aaron Salgado MD PCP: Kelly Hannah MD Status: REG ER Study: Chest 1 View (Portable) Date of Exam: 02/14/18 Exam# [id number] Ordering Dr: Kasi Worley MD STUDY: X-RAY CHEST REASON FOR EXAM: Female, 68 years old. Chest pain. TECHNIQUE: Single AP portable view of the chest. COMPARISON: Comparison is made with prior study dated 2015. FINDINGS: EKG electrodes are seen. The lungs are clear and expanded. There is no demonstrated pleural abnormality. Normal size heart. Normal mediastinum and paula. Normal visualized pulmonary arteries. There is atherosclerotic calcification of the aortic arch with tortuosity. There are degenerative changes of the visualized thoracic spine. Normal visualized ribs, clavicles, and shoulders. There is no demonstrated abnormality of the visualized soft tissue structures of the upper abdomen. RAD/Chest 1 View (Portable) IMPRESSION: No acute abnormality is seen. Electronically Signed: Aaron Salgado MD at 15:52 EDT Tel [phone], Service support , CC: Kelly Hannah MD; Kasi Worley MD Managing Cognitive Engineer: Signed CARDIOLOGY VISIT Observed: 01/24/2018 Status: F Source: [place] REPORT 3:36 PM [facility] REPOSITORY [facility] [address] [place] [address]. [address] [place] [address] OFFICE VISIT Date of Service: 01/24/18 MR#: [id number] Acct: [id number] Name: POONAM ESCUDERO Rep #: [id number] : 1950 Provider: Puneet Lowe MD Age/Sex: 67/F Location: [facility] Status: Signed HPI HPI Chief Complaint: Routine [...] initial visit, she was having chest discomfort. It was at rest and in the evening. She was able to ride her bike and swim without any difficulty. She describes this as a heaviness that was similar to what she had when she had her PE. She did have a CTA done and this was negative for PE. She then had an echocardiogram which demonstrated normal LV size left ventricular systolic function is normal with an estimated ejection fraction of 60%. Left atrium is mildly enlarged. Mild tricuspid valve insufficiency. Pulmonary artery systolic pressure 28 mmHg. Patient was then in her physicians office complaining of similar chest discomfort. That she was given a nitroglycerin. She did have a vasovagal response was transported to the emergency room. She did have a overnight stay where she had a stress test which was negative for ischemia at a moderate workload. Patient continued to have episodes of chest pain, and given her risk factors was referred for left heart catheterization. This took place by myself on 09/29/16 which demonstrated nonobstructive coronary disease in the range of 30% stenosis of the mid LAD, and a 40% stenosis of the mid diagonal. The patient was treated initially with Zocor but developed diffuse myalgias switched to gemfibrozil which again caused diffuse myalgias. She also stopped [...] on exertion. Otherwise she feels well. She was recently diagnosed with left plantar fasciitis, and has been going through different therapies to corrected. He is exercising by riding on a recumbent bike without difficulty. In our office today her blood pressure is 100/64, and pulse [...] 100/64 Intake Visit Reasons: 6 M FU Training Coordinator Required: No Allergies simvastatin [From Zocor] Adverse Reaction (Severe, Verified 01/24/18 15:26) severe myalgias and pain gemfibrozil Adverse Reaction (Intermediate, Verified 01/24/18 15:26) Myalgias/joint pain hydromorphone HCl [From Dilaudid] Adverse Reaction (Verified 01/24/18 15:26) Other oxycodone HCl [From Percocet] Adverse Reaction (Verified 01/24/18 15:26) Nausea propoxyphene napsylate [From Darvocet-N 100] Adverse Reaction (Verified 01/24/18 15:26) Nausea Medications Propranolol HCl [Inderal LA (Beta Jess)] 80 mg PO DAILY 07/03/13 [History Confirmed 01/24/18] Aspirin E.C. [Ecotrin] 81 mg PO DAILY@0800 tab 02/13/15 [Rx Confirmed 01/24/18] Cholecalciferol (Vitamin D3) [Vitamin D3] 2,000 unit PO DAILY 09/04/16 [History Confirmed 01/24/18] Hydrochlorothiazide [Hctz] 25 mg PO DAILY 09/04/16 [History Confirmed 01/24/18] Zolpidem Tartrate [Ambien Cr] 6.25 mg PO QHS 09/04/16 [History Confirmed 01/24/18] potassium chloride ER 20 mEq tablet,extended release 20 meq PO QDAY 07/15/17 [History Confirmed 01/24/18] coenzyme Q10 100 mg capsule 200 mg PO QDAY cap 01/24/18 [History Confirmed 01/24/18] meloxicam 15 mg tablet 15 mg PO QDAY 01/24/18 [History Confirmed 01/24/18] rosuvastatin 5 mg tablet 5 mg PO QDAY 01/24/18 [History Confirmed 01/24/18] [facility] Medical History Obstructive sleep apnea (Chronic) History of pulmonary embolism (Chronic) Atherosclerosis of coronary artery of kaw heart without angina pectoris (Chronic) Hypertension (Chronic) Bradycardia (Chronic) Hyperlipidemia (Chronic) Blood glucose elevated (Chronic) Depression (Chronic) Migraine (Chronic) Surgical History History of [...] weakness, body ache, fever(s), headache(s), chills, frequent falls, night sweats, daytime sleepiness, difficulty sleeping, excessive sweating, weight gain, weight loss, increased appetite, poor appetite, anorexia or other Eyes Eyes: Negative for blind spots, loss of peripheral vision, transient loss of vision, blurry vision, change in vision, double vision, floaters, tunnel vision or other ENT ENT: Negative for headache(s), dizziness, hearing loss, tinnitus, Nosebleed/epistaxis, post nasal drip, lip swelling, tongue swelling, bleeding gums, hoarseness, neck pain, dry mouth, other or balance problems Cardio Chest Pain: No Palpitations: No Edema: None Muscle aches with walking: None Resp Respiratory: Negative for SOB with activity, SOB at rest, SOB orthopnea\SOB lying down, Cough, Coughing up blood/hemoptysis, chest congestion, pain on inspiration, snoring, stridor, wheezing, crackles, paroxysmal nocturnal dyspnea or other GI GI: Negative nausea, vomiting, heartburn, constipation, belching, bloating, cramping, vomiting blood/hematemesis, bright, red blood in stools, black,tarry stools, loose stools, Difficulty Swallowing or other : Negative for hematuria, frequent nighttime urination/ nocturia, erectile dysfunction or abnormal vaginal bleeding Musc Musc: Positive for joint pain (plantar fasciitis in foot); negative for balance problems, muscle aches/ myalgia or muscle weakness Skin Skin: Negative redness, non-healing lesions, rash, unusual bruising, skin ulcer, wounds, jaundice or other Neuro Neuro: Negative for weakness, headache(s), frequent falls, blurry vision, double vision, dizziness, lightheadedness, near syncope, syncope, orthostatic symptoms, confusion, memory loss, restless legs, vertigo, seizures, lack of coordination or other [place] Hematologic/Lymphatic: Negative for easy bleeding, easy bruising, enlarged lymph nodes or other Endo Endo: Negative for fatigue, excessive sweating, cold intolerance, heat intolerance, flushing, increased thirst/drinking, increased hunger, hair loss, hair growth or other Psych Psych: Negative for anxiety, depression, thoughts of harming anyone, thoughts of harming yourself, visual hallucinations, panic attacks or audible hallucinations Allergy Allergy/Immunology: Negative for lip swelling, Negative for tongue swelling, Negative for rash, Negative for throat swelling, Negative for hives Cardiology Exam Const Appearance: cooperative, healthy appearing and no acute distress Nutritional Appearance: well nourished Orientation: alert, oriented x3 and oriented to person Head Head: normal to inspection, atraumatic and normocephalic Nose: external nose normal Face and Sinus: face symmetric Mouth: oral mucosae normal Eyes General: appearance normal, both eyes and all related structures Eyelids: eyelids normal Conjunctivae: conjunctivae normal Pupils: PERRL and normal by confrontation EOM: EOM intact bilaterally Neck Neck: normal visual inspection and full ROM Carotids: normal carotid upstroke Chest Chest inspection: normal inspection of the chest Auscultation: Bilateral: Clear to Auscultation Cardio Palpation: normal PMI Rate: regular rate Rhythm: regular [...] Edema: None: Bilateral Psych Psychological: normal affect Assessment AND Plan 1. Atherosclerosis of coronary artery of kaw heart without angina pectoris I25.10 Non Obs CAD Plan 1. Coronary artery disease: No anginal symptoms at this time. No indication for any additional testing. She is taking and tolerating her medicines well. Her blood pressure is well controlled. I recommended that she continue her baby aspirin, hydrochlorothiazide, potassium and propranolol. 2. Hyperlipidemia E78.5 Plan 2. Hyperlipidemia: It appears the patient is able to tolerate Crestor without difficulty. Recommend continuing Crestor. Her PCP monitors her LDL cholesterol. Recommend an LDL less than 70. 3. Return office in 6 months. This note was generated using a voice recognition system and there may be incorrect words, spelling or punctuation that were not noted when reviewing the office note prior to saving. Plan Detail Follow Up +6M ([place]) Coding Level of Care Code Off vis,est,level 3 Diagnoses Atherosclerosis of coronary artery of kaw heart without angina pectoris I25.10 Hyperlipidemia E78.5 Coding Level of Care Code Off vis,est,level 3 Diagnoses Atherosclerosis of coronary artery of kaw heart without angina pectoris I25.10 Hyperlipidemia E78.5 01/24/18 1536 <Electronically signed by Puneet Lowe MD> Date [facility]uneet [facility] Signature: Date (if applicable) CC: Kelly Hannah MD FOOT MIN 3 VIEWS Observed: 08/12/2017 Status: F Source: [place] 10:04 AM [facility] REPOSITORY [facility] Imaging Services [address] [place] [address] Foot min 3 Views MR#: [id number] Acct: [id number] Name: POONAM ESCUDERO Rep #: [id number] : 1950 F 67 From: Aaron Salgado MD PCP: Kelly Hannah MD Status: REG CLI Study: Foot min 3 Views Date of Exam: 08/12/17 Exam# [id number] Ordering Dr: Kelly Hannah MD STUDY: X-RAY - LEFT FOOT CLINICAL: Female, 67 years old. Left heel pain. TECHNIQUE: 3 view(s) of the foot. COMPARISON: None. FINDINGS: There is a plantar calcaneal spur. Normal visualized subtalar, talonavicular, calcaneocuboid, tarsal and tarsometatarsal articulations. Normal metatarsi. Normal metatarsophalangeal joint of the great toe. Normal tibial and fibular sesamoid bones. Normal interphalangeal joint of the great toe. Normal phalanges of the great toe. Normal second through fifth metatarsophalangeal joints. Normal interphalangeal joints and phalanges of the lesser toes. The soft tissue structures are unremarkable. RAD/Foot min 3 Views IMPRESSION: Plantar spur. Electronically Signed: Aaron Salgado MD at 14:14 EST Tel [phone], Service support , CC: Kelly Hannah MD Managing Cognitive Engineer: Signed TXT - BLOOD FLOW Observed: 08/05/2017 Status: F Source: [place] SCREENING 9:30 PM [facility] REPOSITORY [facility] Cardiovascular Services [address] [place] [address] 08/05/17 0756 MR#: [id number] Acct: [id number] Name: POONAM ESCUDERO Rep #: [id number] : 1950 67 From: Marcus Garza MD [...] in the cross- There is insignificant plaque formation noted on sectional axis. the right side. There is insignificant plaque formation noted on the left side. Ankle Brachial Index The right ankle/ brachial index is 1.1. The left ankle/ brachial index is 1.1. Medical History and Assessment The client presents with a history of high blood pressure. The heart rate is 70 beats per minute. The heart rhythm is regular. The right blood pressure is 122/78. The left blood pressure is 124/82. The assessment was performed by Julissa Ortega RVT. Interpretation Summary Normal carotid artery screening (0 to 15% narrowing). Normal aortic ultrasound exam. The ankle/brachial index is normal (1.0 or greater). Performed By: Jj Ortega RVT 08/05/172129 Date Marcus Garza MD CC: Kelly Hannah MD Date Dictated: 08/05/17 0756 Date Transcribed: 08/05/172129 Managing Cognitive Engineer: Signed CARDIOLOGY VISIT Observed: 07/15/2017 Status: F Source: [place] REPORT 3:13 PM [facility] REPOSITORY [facility] [address] [place] [address] OFFICE VISIT Date of Service: 07/15/17 MR#: [id number] Acct: [id number] Name: POONAM ESCUDERO Rep #: [id number] : 1950 Provider: Puneet Lowe MD Age/Sex: 67/F Location[place] [facility] Status: Signed HPI 6 M FU: Chief [...] initial visit, she was having chest discomfort. It was at rest and in the [...] of similar chest discomfort. That she was given a nitroglycerin. She did have a vasovagal response was transported to the emergency room. She did have a overnight stay where she had a stress test which was negative for ischemia at a moderate workload. Patient continued to have episodes of chest pain, and given her risk factors was referred for left heart catheterization. This took place by myself on 09/29/16 which demonstrated nonobstructive coronary disease in the range of 30% stenosis of the mid LAD, and a 40% stenosis of the mid diagonal. The patient was treated initially with Zocor but developed diffuse myalgias switched to gemfibrozil which again caused diffuse myalgias. She just stopped her gemfibrozil today due to severe joint and muscle pain similar to her statins. She discontinued the gemfibrozil, and her symptoms have completely resolved. she denies any exertional angina, chest pain, [...] (BMI) 39.2 07/15/17 Blood Pressure 118/68 07/15/17 Respiratory Rate 16 07/15/17 Pulse Rate 64 Intake Visit Reasons: 6 M FU Allergies hydromorphone HCl [From Dilaudid] Adverse Reaction (Verified 09/04/16 10:16) Other oxycodone HCl [From Percocet] Adverse Reaction (Verified 09/04/16 10:16) Nausea propoxyphene napsylate [From Darvocet-N 100] Adverse Reaction (Verified 09/04/16 10:16) Nausea Medications Propranolol HCl [Inderal LA (Beta Jess)] 80 mg PO DAILY 07/03/13 [History Confirmed 07/15/17] Aspirin E.C. [Ecotrin] 81 mg PO DAILY@0800 tab 02/13/15 [Rx Confirmed 07/15/17] Cholecalciferol (Vitamin D3) [Vitamin D3] 2,000 unit PO DAILY 09/04/16 [History Confirmed 07/15/17] Hydrochlorothiazide [Hctz] 25 mg PO DAILY 09/04/16 [History Confirmed 07/15/17] Zolpidem Tartrate [Ambien Cr] 6.25 mg PO QHS 09/04/16 [History Confirmed 07/15/17] Bacillus coagulans 10 billion cell capsule,delayed release cell PO .QD ea 07/15/17 [History Confirmed 07/15/17] potassium chloride ER 20 mEq tablet,extended release 20 meq PO QDAY 07/15/17 [History Confirmed 07/15/17] PFSH Medical History Hypertension (Chronic) Bradycardia (Chronic) Hyperlipidemia (Chronic) Atherosclerosis of coronary artery of kaw heart without angina pectoris (Chronic) Blood glucose elevated (Chronic) Depression (Chronic) History of pulmonary embolism (Chronic) Migraine (Chronic) Obstructive sleep apnea (Chronic) Surgical History History of appendectomy (Chronic) History of left heart catheterization (Chronic 09/29/16) History of total abdominal hysterectomy (Chronic) History of total knee replacement (TKR) (Chronic) Hx of cholecystectomy (Chronic) Social History Smoking Status: Never smoker Assessment AND Plan Plan 1. Hypercholesterolemia: [...] is been in place for about 6 months we will repeat her cholesterol numbers. 2. Coronary artery disease: The patient has minimal coronary artery disease and no symptoms at this time. Recommend that she continue her current dose of baby aspirin, propanolol, and hydrochlorothiazide. 3. Return office in 6 months This note was generated using a voice recognition system and there may be incorrect words, spelling or punctuation that were not noted when reviewing the office note prior to saving. Plan Detail Follow Up 6 Months ([place]) Coding Level of Care Code Off vis,est,level 3 07/15/17 1513 <Electronically signed by Puneet Lowe MD> Date Puneet Lowe MD Cosigner Signature: Date (if applicable) CC: ALLERGIES ALLERGIES DATE TYPE / CODE NAME / CODE REACTION SEVERITY SOURCE 02/14/2018 Drug hydromorphone Other Unknown [place] Allergy/416 HCl/[id number](RXNO [facility] 728997([facility] ED CT) Repository 02/14/2018 Drug oxycodone Nausea Unknown [place] Allergy/416 HCl/[id number]([place] [address]([facility] ED CT) Repository 02/14/2018 Drug propoxyphene Nausea Unknown [place] Allergy/416 napsylate/[id number] [facility] 342970([address]) Repository 02/14/2018 Drug gemfibrozil/[id number] Myalgias/joint [place] Allergy/416 050(RXNORM) pain [facility] 248505([facility] ED CT) Repository 02/14/2018 Drug simvastatin/[id number] severe SV [place] Allergy/416 621(RXNORM) myalgias and Community 613068([facility] ED CT) Repository ENCOUNTERS ENCOUNTERS ADMIT/DISCHARGE ACCOUNT ADMITTING ENCOUNTER LOCATION SOURCE NUMBER CLASS 05/27/2018 [id number] Ambulatory [place] 2 [facility] ing:PSN Repository 05/23/2018 3222 Ambulatory Building:[facility] Practices Repository 05/23/2018 [id number] Ambulatory [place] 6 [facility] ing:MRI Repository 05/19/2018/ [id number] [place]ace, Ambulatory [place] 8 9 Jamal F [facility] ing:FR0Dsbp: Repository [id number]: 1 05/19/2018 [id number] Kandace, Ambulatory BMSBuilding:B [place] 3 Jamal F [place] Repository 05/19/2018 [id number] Kandace, Ambulatory BMSBuilding:B [place] 0 Jamal F [facility] Repository 04/05/2018 [id number] Ambulatory [place] 7 [facility] ing:PT Repository 02/14/2018/ [id number] Emergency [place] 8 8 [facility] ing:ED Repository 02/14/2018 [id number] Ambulatory BMSBuilding:B [place] 5 [facility] Repository 01/24/2018/ [id number] Ambulatory BMSBuilding:B [place] 8 5 [facility] Repository 01/19/2018 [id number] Ambulatory BMSBuilding:B [place] 2 [facility] Repository 08/12/2017 [id number] Ambulatory [place] 7 [facility] ing:HPRAD Repository 08/05/2017 [id number] Ambulatory [place] 4 [facility] ing:[facility] Repository 07/15/2017/ [id number] Ambulatory BMSBuilding:B [place] 8 9 [place].[facility] Repository 07/14/2017 [id number] Ambulatory BMSBuilding:B [place] 1 [place] Repository PAYERS PAYERS ENCOUNTER GUARANTOR PAYER SUBSCRIBER SOURCE 05/27/2018 POONAM J Primary POONAM J [place] [id number] Insurance:HUMANA HAMILTONDOB: Community [place]icy [id number]: Repository [id number]: [phone] [id number] [phone] (HP) Date:3617-79-52EB [address] [place] [address]ON: 05/27/2018 Secondary NOT GIVENUNK [place] Insurance:SELF PAY [facility] Number: Effective Repository Date:2018-05-23 05/23/2018 POONAM J Primary POONAM J OHIP Practices HAMILTONDOB: Insurance:HUMANA/[facility] HAMILTONDOB: Repository [id number] [facility] Number: [id number] [facility] [id number] [place], [place] Date:5267-52-62RhrjSinnamahoning, [place] [address]Yut: (056) Name:[facility] 69531Xty: (HP)Tel: [address] [place] [address] [phone] (WR) [id number]: (554) (PK) [phone] 05/23/2018 Secondary POONAM J OHIP Practices Insurance:Taylor HAMILTONDOB: Repository [facility] [id number] Number: [facility] [id number] [place], [place] Date:2009-06-21 [address]Gqg: (664) [id number] [phone] (HP) Name:[facility] [address], [place] [address]MJ: 05/23/2018 Tertiary POONAM J OHIP Practices Insurance:[facility] HealthD[facility]: Repository y Number: [id number] [place] Date:2011-06-21 - [place], [place] 5503-65-83Pwgc [address]Aii: (330) Name:FPO [phone] (HP) [id number] [id number]: 05/23/2018 Tertiary POONAM J OHIP Practices Insurance:Medical HAMILTONDOB: Repository [facility] [id number] Number: Kim [id number] [place], [place] e Date: [address]Vyh: (330) [id number] [phone] (HP) Name:[facility] [address], [place] [id number]: 05/23/2018 Tertiary POONAM J OHIP Practices Insurance:Humana/Med HAMILTONDOB: Repository [facility] [id number] Number: Kim [id number] [place], [place] Date: [address]Pob: (330) [id number] [phone] (HP) Name:[address] [place] [address]IW: 05/23/2018 Tertiary POONAM J OHIP Practices Insurance:Medicare HAMILTONDOB: Repository licy Number: [id number] [place] Date:2017-01-19 [place], [place] 9331-00-95Yzhk [address]Cqj: (330) 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 [phone] (HP) [id number], [place] [address]NO: 05/23/2018 POONAM J Primary POONAM J [place] [id number] Insurance:HUMANA HAMILTONDOB: Community [place] PPOPolicy [id number] Number: Repository [phone]: 330) [id number] [phone] (HP) Date:1278-88-86WP [address] [place] [address]WI: 05/23/2018 Secondary NOT GIVENUNK [place] Insurance:SELF PAY [facility] Number: Effective Repository Date:2018-05-23 05/19/2018 POONAM FONTAINE Primary POONAM FONTAINE [place] [id number] Insurance:HUMANA HAMILTONDOB: Community [place] PPOPolicy [id number] Number: Repository [id number]: 330 [id number] [phone] () Date:7205-04-46NX [address] [address]WG: 05/19/2018 Secondary NOT GIVENUNK [place] Insurance:SELF PAY [facility] Number: Effective Repository Date:2018-05-19 05/19/2018 POONAM FONTAINE Primary POONAM FONTAINE [place] [id number] Insurance:HUMANA HAMILTONDOB: Community [place] PPOPolicy [id number] Number: Repository [phone]: 330 [id number] [phone] () Date:1440-33-53QU [address] [address]PX: 05/19/2018 Secondary NOT GIVENUNK [place] Insurance:SELF PAY [facility] Number: Effective Repository Date:2018-05-19 05/19/2018 POONAM FONTAINE Primary POONAM FONTAINE [place] [id number] Insurance:HUMANA HAMILTONDOB: Community [place] PPOPolicy [id number] Number: Repository [address]Nph: (330 [id number] [phone] () Date:4618-72-14UI [address] [place] [address]UV: 05/19/2018 Secondary NOT GIVENUNK [place] Insurance:SELF PAY [facility] Number: Effective Repository Date:2018-05-19 04/05/2018 POONAM FONTAINE Primary POONAM [address] [id number] Insurance:HUMANA HAMILTONDOB: Community [place] PPOPolicy [id number], [place] Number: Repository [address]Ayd: (330 [id number] [phone] (HP) Date:1539-62-68ER [address] [place] [address]MF: 04/05/2018 Secondary NOT GIVENUNK [place] Insurance:SELF PAY [facility] Number: Effective Repository Date:2018-02-18 02/14/2018 POONAM FONTAINE Primary POONAM FONTAINE [place] [id number] Insurance:HUMANA HAMILTONDOB: Community [facility] MEDIC[facility] OPolicy [id number], [place] Number: Repository [phone]: (330) [id number] [phone] (HP) Date:0216-18-85CR [address] [address]TB: 02/14/2018 Secondary NOT GIVENUNK [place] Insurance:SELF PAY [facility] Number: Effective Repository Date:2018-02-14 02/14/2018 POONAM FONTAINE Primary POONAM FONTAINE [place] [id number] Insurance:HUMANA HAMILTONDOB: Community [facility] MEDICARE OPolicy [id number], [place] Number: Repository [address]Xic: (330) [id number] [phone] (HP) Date:9901-57-82QO [address] [address]OO: 02/14/2018 Secondary NOT GIVENUNK [place] Insurance:SELF PAY [facility] Number: Effective Repository Date:2018-02-14 01/24/2018 POONAM FONTAINE Primary POONAM FONTAINE [place] [id number] Insurance:HUMANA HAMILTONDOB: [facility] MEDICARE OPolic [id number][place] Number: Repository [phone]: (330) [id number] [phone] (HP) Date:0076-25-28PU [address] [address]CY: 01/24/2018 Secondary NOT GIVENUNK [place] Insurance:SELF PAY [facility] Number: Effective Repository Date:2018-01-18 01/19/2018 POONAM FONTAINE Primary POONAM FONTAINE [place] [id number] Insurance:HUMANA HAMILTONDOB: Community [place] PPOPolicy [id number] [place] Number: Repository [phone]: (330) [id number] [phone] (HP) Date:4160-24-01JI [address] [place] [address]WN: 01/19/2018 Secondary NOT GIVENUNK [place] Insurance:SELF PAY [facility] Number: Effective Repository Date:2018-01-19 08/12/2017 POONAM FONTAINE Primary POONAM FONTAINE [place] [id number] Insurance:HUMANA HAMILTONDOB: Community [place] PPOPolicy [id number] [facility] [place] Number: Repository [address]Hna: (330) [id number] [phone] (HP) Date:6872-10-90IC [address] [address]HM: 08/12/2017 Secondary NOT GIVENUNK [place] Insurance:SELF PAY [facility] Number: Effective Repository Date:2017-08-12 08/05/2017 POONAM FONTAINE Primary NOT GIVENUNK [place] [id number] Insurance:SELF [place]Y [place] Number: Effective Repository [phone]: (330) Date:2017-07-28 [phone] (HP) 07/15/2017 POONAM FONTAINE Primary POONAM FONTAINE [place] [id number] Insurance:HUMANA HAMILTONDOB: Community [place] PPOPolicy [id number] [facility]aks [facility] [place] Number: Repository [address]Psd: (330) [id number] [phone] (HP) Date:4013-56-81DI [address] [address]CO: 07/15/2017 Secondary NOT GIVENUNK [place] Insurance:SELF PAY [facility] Number: Effective Repository Date:2017-05-24 07/14/2017 Poonam Fontaine Primary Poonam Minal [place] [id number] Insurance:HUMANA HamiltonDOB: Community [place] MEDICARE [facility]olw[facility] [id number] Number: Repository [address]Ylg: (405) [id number] [phone] () Date:2003-29-70[address]XMZDLHZVM, [place] [address]SW: 07/14/2017 Secondary NOT GIVENUNK [place] Insurance:SELF PAY [facility] Number: Effective Repository Date:2017-07-14
== END 2018-05-20 11:47 | disposition home or self-care (01) ==
LOC: ED 07:56 → MS2 10:49
PROVIDERS: Admitting Provider Family Medicine; Emergency Provider Emergency Medicine; Family Provider Internal Medicine; PCP Internal Medicine; Visit Provider Family Medicine
DX: R41.0 Disorientation, unspecified (principal); N39.0 Urinary tract infection, site not specified; I10 Essential (primary) hypertension; E78.5 Hyperlipidemia, unspecified; Z87.891 Personal history of nicotine dependence; Z79.899 Other long term (current) drug therapy; I25.10 Atherosclerotic heart disease of native coronary artery without angina pectoris; G47.33 Obstructive sleep apnea (adult) (pediatric); Z86.711 Personal history of pulmonary embolism; R29.700 NIHSS score 0; F32.9 Major depressive disorder, single episode, unspecified
CPT/HCPCS: 36415; 70450; 71045; 80048; 80061; 81001; 82962; 84484; 85025; 85610; 85730; 87086; 87088; 87186; 93005; 96361; 96365; 96366; 96372; 99218; 99283; J7030; J7040; A4216; G0378

== ENCOUNTER → 2018-05-23 06:31 | Outpatient (CLI) | payer MEDICARE, SELFPAY ==
[2018-05-19 11:15] VITALS: BMI 36.7
--- NOTE | 2018-05-23 06:48 | MRI_ITS ---
STUDY: MRI BRAIN WITH AND WITHOUT CONTRAST REASON FOR EXAM: Female, 68 years old. Transient confusion and memory loss TECHNIQUE: Standardized multiplanar fat and water weighted pulse sequences were obtained. 10 ml of Gadavist contrast material was administered intravenously for the contrast portion of the examination. COMPARISON: 05/19/2018 CT FINDINGS: Normal size of the ventricles and extra-axial spaces for the patient's age. 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 Normal bilateral basal ganglia. Normal thalami. There is no extra-axial fluid accumulation. Normal flow voids within the major intracranial circulation suggesting patency by spin echo criteria. Normal venous enhancement. There is no enhancing intra-axial or extra-axial abnormality. Normal sella turcica, pituitary gland, infundibular stalk, optic chiasm and hypothalamus. Normal tectal plate and pineal gland. A subcentimeter faint enhancing focus is present in the right janina. This is not associated with edema or mass effect. This is most likely an incidental capillary telangiectasia. Normal cerebellum. Normal basal cisterns. Normal bilateral temporal bones. Normal bilateral internal auditory canals. No demonstrated orbital abnormality, within the constraints of a routine brain study. Normal visualized paranasal sinuses. Normal calvarium and skull base. Normal visualized soft tissue structures. Normal visualized upper cervical spine. 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 No evidence of infarct or hemorrhage. Electronically Signed: Jimmy Kang MD at 8:36 EST Tel , Service support ,
--- OUTSIDE RECORDS SUMMARY | 2018-07-16 04:31 | XMS RPT_ITS | Continuity of Care Document ---
:1950 Author Organization [facility] Address [facility] [facility] [address] [place] [address] Phone Care Team Providers Name Role Phone [...] depression lost job was in . lost [place] and she has to drive around. life withsomeone OCD, hoarder. on ambien for sleep per Dr. coates. Wellbutrin start but had insomni a in past. working with [employer] doing okay on incresae welbutrin.tried Effexor, paxil [...] adipex and topamax. 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 [...] days Quantity: 2 {Package} Refills: 3 Ordered:24-Feb-2018 Priscial Hannah MD, MD, Dana M Start : [...] 18-Apr-2015 End : 19-Apr-2015 Inactive BD Disp Nightmute 30G X 1/2 Miscellaneous 1 (one) Misc [...] Inactive Comments:Medication taken as needed. called to [facility] 07-30-09 erussell disp 4 ounces no [...] Extended Release) 1 (one) Tablet ER at [facility] for 14 days for 0 days Quantity: 14 {Tablet_ER} Refills: 0 Ordered:02-May-2010 SUZY Spencer Start : 20-Dec-2009 End : 02-May-2010 Inactive NYSTATIN, 065178WIRO/ML (Mouth/Throat Suspension) 15 Suspension qid swish and swallow for 0 days Quantity: 450 {Milliliter} Refills: 0 Ordered:20-Aug-2010 Suzette Black LPN Start : 04-Aug-2010 End : 20-Aug-2010 Inactive PANTOPRAZOLE SODIUM, 40MG (Oral Tablet Delayed Release) 1 (one) Tablet DR daily for 0 days Quantity: 30 {Tablet} Refills: 6 Ordered:06-Dec-2015 SUZY Spencer Start : 20-Apr-2015 End : 06-Dec-2015 Inactive Pen Nightmute 5/16 31G X 8 MM Miscellaneous 1 [...] Leanne Marie Start : 29-Jul-2009 Inactive ZOSTAVAX, 11029HUZ/0.65ML (Subcutaneous Solution Reconstituted) uad For Solution one [...] epig was in hospital and work up [facility] [place] 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 ppi and carafate helping. [...] for Tdap vaccination (Renamed from Need for tmmuqpvybm-mxsvwye-gfazwwenu (Tdap) vaccine, adult/adolescent) (Z23, V06.1) Status: Resolved [...] 2007, 2013 bilateral LEFT HEART CARDIAC CATH (50124) Completed Comments: Dr. Alexander nasal abscess I and D 04-30 Completed Date Value Details 19-May-2018 Brain/Head without Contrast Result: Comments: See Note; NOTES: [facility] Imaging Services [address] [place] [address] Brain/Head without Contrast MR#: [id number] Acct: [id number] Name: DIANA ESCUDERO OLGA Rep # : [id number] : 1950 F 68 From: Kalia Galan PCP: Priscila Hannah MD Status: REG ER Study: Brain/Head without Contrast Date of Exam: 05/19/18 Exam# [id number] Ordering Dr: Puneet Johnson MD STUDY: C [...] CC: Priscila Hannah MD; Puneet Johnson MD Detasseling Crew Supervisor: Signed 19-May-2018 Chest 1 View Result: Comments: See Note; NOTES: [facility] Imaging Services [address] [place] [address] Chest 1 View MR#: [id number] Acct: [id number] Name: DIANA ESCUDERO Rep #: [id number] : 1950 F 68 From: Aaron Salgado MD PCP: Priscila Hannah MD Status: REG ER Study: Chest 1 View Date of Exam: 05/19/18 Exam# [id number] Ordering Dr: Puneet Johnson MD STUDY: X-RAY [...] Aaron Salgado MD at 8:13 EST Tel [phone], Service support , CC: Priscila Hannah MD; Puneet Johnson MD Detasseling Crew Supervisor: Signed 03-Mar-2018 Inital Evaluation (1) - PT Result: Comments: See Note; NOTES: [facility] Physical Therapy [facility] [address] [facility] [place], [place] [address] Fax REHABILITATION SERVICES INITIAL EVALUATION MR#: [id number] Acct: [id number] Name: DIANA ESCUDERO Rep #: [id number] : 1950 68 From: Lazaro Jackson DPNoah Referring Dr.: GENOVEVA Myers Status: REG RCR Insurance: [employer] SELF PAY INSURANCE Patient's Visit Information [...] stabing pain (8/10) at rest. 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 Please let me know if there are questions or concerns regarding this plan of care. Physician Signature: Date: <Electronically signed by Lazaro Jackson DPT&amp ;#62; 03/03/18 1340 CC: GENOVEVA Myers; Priscila Hannah MD CLS Signed For Medicare only, by signing this I certify the plan of care. Physicians Signature Date 16-Feb-2018 12 Lead Electrocardiogram Result: Comments: See Note; NOTES: [facility] Cardiovascular Services [address] [place] [address] 12 Lead EKG 02/14/18 1459 MR#: [id number] Acct: [id number] Name: DIANA ESCUDERO Rep #: [id number] : 1950 68 From: Harris Brandt MD [...] Int : 401 ms Sinus bradycardia Inferior WA, age undeterm ined, cannot be excluded Confirmed by KEVIN FLYNN, HARRIS ([id number]), staff editor SHIELA DOWELL (56) on 02/16/2018 1:34:57 PM Referred By: BRIEN Confirmed By:HARRIS BRANDT MD 02/16/18 1335 Date __ Harris Brandt MD CC: Priscila Hannah MD; Kasi Worley MD Signed 15-Feb-2018 Emergency Department Summary Result: Comments: See Note; NOTES: [facility] Medical Records Department [address] [place] [address] Emergency Department Summary 02/14/18 1636 MR#: [id number] Acct: [id number] Name: DIANA ESCUDERO Rep #: [id number] : 1950 68 From: Kasi Worley MD [...] score 1. This note was generated with g2Oneation software. It may contain incorrect words, spelling, [...] your Primary Care Provider. Call [facility] ([phone]) or report to the closest Emergency Room. Call 911 if necessary. 02/15/18 0046 <Electronically signed by Jose Daniel Worley MD> Date Kasi Worley MD Cosigner Signature (If Indicated): Date CC: Priscila Hannah MD 14-Feb-2018 Venous Duplex Lower Extremity Result: Comments: See Note; NOTES: [facility] Cardiovascular Services [address] [place] [address] Venous Duplex US, Unilateral 02/14/18 1549 MR#: [id number] Acct: [id number] Name: DIANA HICKMAN OLGA Rep #: [id number] : 1950 68 From: Abdoulaye Landa MD [...] 02/14/181740 Date Abdoulaye Landa MD CC: Priscila Hananh MD; Kasi Worley MD Date Dictated: 0 02/14/18 1549 Date Transcribed: 02/14/181740 Detasseling Crew Supervisor: Signed 14-Feb-2018 Chest 1 View (Portable) Result: Comments: See Note; NOTES: [facility] Imaging Services [address] [place] [address] Chest 1 View (Portable) MR#: [id number] Acct: [id number] Name: DIANA ESCUDERO OLGA Rep #: [id number] : 1950 F 68 From: Aaron Salgado MD PCP: Priscila Hannah MD Status: REG ER Study: Chest 1 View (Portable) Date of Exam: 02/14/18 Exam# [id number] Ordering Dr: Kasi Worley MD STUD Y: [...] Aaron Salgado MD at 15:52 EDT Tel [phone], Service support , CC: Priscila Salgado; Kasi Worley MD Detasseling Crew Supervisor: Signed 24-Jan-2018 Cardiology Visit Report Result: Comments: See Note; NOTES: [facility] [address] [place] [address] OFFICE VISIT Date of Service: 01/24/18 MR#: [id number] Acct: [id number] Name: DIANA ESCUDERO Rep #: [id number] : 1950 Provider: Puneet Alexander MD Age/Sex: 67/F [place] [facility] [place] Status: Signed HPI HPI Chief Complaint: [...] Intake Visit Reasons: 6 M FU [facility] Required: No Allergies simvastatin [From Zocor] Adverse [...] mg PO QDAY 01/24/18 [History Confirmed 01/24/18] [facility] Medical History Obstructive sleep apnea (Chronic) History of pulmonary embolism (Chr onic) Atherosclerosis of coronary artery of [place] heart without angina pectoris (Chronic) Hypertension (Chronic) [...] Plan 1. Atherosclerosis of coronary artery of [place] heart without angina pectoris I25.10 Non Obs [...] 3 Diagnoses Atherosclerosis of coronary artery of [place] heart without angina pect ranulfo I25.10 Hyperlipidemia E78.5 Coding Level of Care Code Off vis,est,level 3 Diagnoses Atherosclerosis of coronary artery of [place] heart without angina pectoris I25.10 Hyperlipidemia E78.5 12/06 1536 <Electronically signed by Puneet Alexander MD> Date Puneet Alexander MD Cosigner Signature: Date (if applicable) CC: Priscila Hannah MD 12-Aug-2017 Foot min 3 Views Result: Comments: See Note; NOTES: [facility] Imaging Services [address] [place] [address] Foot min 3 Views MR#: [id number] Acct: [id number] Name: DIANA ESCUDERO Rep #: [id number] : 1950 F 67 From: Aaron Salgado MD PCP: Priscila Hannah MD Status: REG CLI Study: Foot min 3 Views Date of Exam: 08/12/17 Exam# [id number] Ordering Dr: Priscila Hannah MD STUDY: X-RAY [...] Salgado MD 08/08/21 at 14:14 EST Tel [phone], Service support , CC: Priscila Hannah MD Detasseling Crew Supervisor: Signed 05-Aug-2017 TXT - Blood Flow Screening Result: Comments: See Note; NOTES: [facility] Cardiovascular Services [address] [place] [address] 08/05/17 0756 MR#: [id number] Acct: [id number] Name: DIANA ESCUDERO Rep #: [id number] : 1950 67 From: Marcus Garza MD Attending Dr: Priscila Hannah MD Status: REG REF Ordering Dr: Date: 08/05/17 Location: [facility] Sex: F C Admitted: Carotid Duplex [...] Dictated: 08/05/17 075 Date T ranscribed: 08/05/172129 Detasseling Crew Supervisor: Signed 15-Jul-2017 Cardiology Visit Report Result: Comments: See Note; NOTES: [facility] [address] [facility] [place] [address] OFFICE VISIT Date of Service: 07/15/17 MR#: [id number] Acct: [id number] Name: DIANA ESCUDERO OLGA Rep #: [id number] : 1950 Provider: Puneet Alexander MD Age/Sex: 67/F [place] [facility] [place] Status: Signed HPI 6 M FU: Chief [...] Hyperlipidemia (Chronic) Atherosclerosis of coronary artery of [place] heart without angina pectoris (Chronic) Blood glucose [...] (CAD), BILAT Result: Comments: See Note; NOTES: [facility] Imaging Services [address] [place] [address] SCREENING MAMM (CAD), BILAT MR#: [id number] Acct: [id number] Name: DIANA ESCUDERO Rep # : [id number] : 1950 F 67 From: Aaron Salgado MD PCP: Priscila Hannah MD Status: REG CLI Study: SCREENING MAMM (CAD), BILAT Date of Exam: 04/19/17 Exam# [id number] Ordering Dr: Priscila Hannah MD MAMMOGRAPHY - [...] delay biopsy of a clinically suspicious abnormality. [id number] Electronically Signed: Aaron Salgado MD at 8:33 EDT Tel [phone], Service support , CC: Priscila Hannah MD Detasseling Crew Supervisor: Signed 16-Sep-2016 Echocardiogram Complete Result: Comments: See Note; NOTES: [facility] Cardiovascular Services [address] [place] [address] Echo Complete 09/16/16 0956 MR#: [id number] Acct: [id number] Name: DIANA ESCUDERO Rep #: [id number] : 1950 66 From: Emil Craven MD Attending Dr: Priscila aHnnah MD Status: REG CLI Ordering Dr: Priscila Hannah MD Date: 09/16/16 Location: [facility] Sex: F C Admitted: Reason For [...] Dictated: 09/16/16 0956 Date Transcribed: 09/16/16 1145 Detasseling Crew Supervisor: Signed 04-Sep-2016 CTA Chest W/WO Contrast Result: Comments: See Note; NOTES: [facility] Imaging Services [address] [place] [address] Verpriscila 4d CTA Chest W/WO Contrast MR#: [id number] Acct: [id number] Name: KENADIANAULI Roberts Rep #: [id number] : 1950 F 66 From: Aaron Salgado MD PCP: Priscila Hannah MD Status: REG ER Study: CTA Chest W/WO Contrast Date of Exam: 09/04/16 Exam# [id number] Ordering Dr: Leanne Finn STUDY: CTA CHEST [...] Burak Salgado MD at 11:40 EDT Tel [phone], Service support [phone], CC: Leanne Finn MD; Priscila Hannah MD Detasseling Crew Supervisor: Signed 23-Jun-2016 Dexa Bone Density Study (HP) Result: Comments: See Note; NOTES: [facility] Imaging Services [address] [place] [address] Verdana 4d Dexa Bone Density Study (HP) MR#: [id number] Acct: [id number] Name: EDUARDO ESCUDERO Rep #: [id number] : 1950 F 66 From: Aaron Salgado MD PCP: Priscila Hannah MD Status: REG CLI Study: Dexa Bone Density Study (HP) Date of Exam: 06/23/16 Exam# [id number] Ordering Dr: Priscila Posey MD STUDY: DUAL [...] Aaron Salgado MD at 16:05 EST Tel [phone], Service support [phone], CC: Priscila Hannah MD Detasseling Crew Supervisor: Signed 20-Apr-2016 Venous Duplex Lower Extremity Result: Comments: See Note; NOTES: [facility] Cardiovascular Services [address] [place] [address] Venous Duplex US, Unilateral 04/20/16 1428 MR#: [id number] Acct: [id number] Name: DIANA ESCUDERO OLGA Rep #: [id number] : 1950 66 From: Marcus Garza MD [...] Date Dictated: 04/20/16 1428 Date Transcribed: 04/20/162149 Detasseling Crew Supervisor: Signed 23-Mar-2016 Bilat Scrn Digital AND CAD Result: Comments: See Note; NOTES: [facility] Imaging Services [address] [place] [address] Verdana 4d Bilat Scrn Digital AND CAD MR#: [id number] Acct: [id number] Name: ANGELA ESCUDERO OLGA Rep #: [id number] : 1950 F 66 From: Aaron Salgado MD PCP: Priscila Hannah MD Status: REG CLI Study: Bilat Scrn Digital AND CAD Date of Exam: 03/23/16 Exam# [id number] Ordering Dr: Priscila Resendiz i, MD MAMMOGRAPHY [...] delay biopsy of a clinically suspicious abnormality. [id number] Electronically Signed: Aaron Salgado MD at 7:51 EDT Tel [phone], Service support [phone], CC: Priscila Hannah MD Detasseling Crew Supervisor: Signed 02-Jan-2016 Venous Duplex Lower Extremity Result: Comments: See Note; NOTES: [facility] Cardiovascular Services [address] [place] [address] Venous Duplex US - Johnny Extrem 01/02/16 1454 MR#: [id number] Acct: [id number] Name: KENADIANA JO Rep #: [id number] : 1950 65 From: Marcus Garza MD [...] Date Dictated: 01/02/16 1454 Date Transcribed: 01/02/161653 Detasseling Crew Supervisor: Signed 12-Dec-2015 12 Lead Electrocardiogram Result: Comments: See Note; NOTES: [facility] Cardiovascular Services [address] [place] [address] 12 Lead EKG 12/03/151124 MR#: [id number] Acct: [id number] Name: DIANA DOWLING Rep #: [id number] : 1950 65 From: Puneet Alexander MD [...] normal ECG Confirmed by PUNEET ALEXANDER ([id number]), staff editor SHIELA DOWELL (56) on 12/09/2015 10:54:37 AM Referred By: KIRT Confirmed By:PUNEET ALEXANDER 12/09/15 1054 Date ___ Puneet Alexander MD CC: Priscila Hannah MD Date Dictated: 12/03/15 1125 Date Transcribed: 12/03/15 112 Detasseling Crew Supervisor: Signed 03-Dec-2015 Emergency Department Summary Result: Comments: See Note; NOTES: [facility] Medical Records Department [address] [place] [address] Emergency Department Summary MR#: [id number] Acct: [id number] Name: DIANA ESCUDERO Rep #: [id number] : 1950 65 From: Leanne Finn MD [...] PCP. DIAGNOSIS: Pleurisy. Leanne Finn MD T: [facility] JOB: [id number] 12/03/15 1536 <Electronically signed by Leanne Finn MD& #62; Date Leanne Finn MD Cosigner Signature (If Indicated): Date CC: Priscila Hannah MD Da te Dictated: 12/03/151356 Date Transcribed: 12/03/151356 Detasseling Crew Supervisor: Signed 03-Dec-2015 Discharge Instruction Result: Comments: See Note; NOTES: [facility] Medical Records Department [address] [place] [address] Discharge Instruction 12/03/154 MR#: [id number] Acct: [id number] Name: DIANA ESCUDERO Rep #: [id number] : 1950 65 From: Leanne Finn MD [...] problems, contact your doctor. Call [facility] ([phone]) or report to the closest Emergency Room. Call 911 if necessary. 12/03/15 1357 &# 60;Electronically signed by Leanne Finn MD> Date Leanne Finn MD Cosigner Signature (If Indicated): Date CC: Priscila Hannah MD 03-Dec-2015 CTA Chest W/WO Contrast Result: Comments: See Note; NOTES: [facility] Imaging Services [address] [place] [address] Verdana 4d CTA Chest W/WO Contrast MR#: [id number] Acct: [id number] Name: DIANA MENESES Rep #: [id number] : 1950 F 65 From: Aaron Salgado MD PCP: Priscila Hannah MD Status: REG ER Study: CTA Chest W/WO Contrast Date of Exam: 12/03/15 Exam# [id number] Ordering D r: Leanne Finn MD STUDY: [...] Aaron Salgado MD at 13:37 EDT Tel [phone], Service support [phone], CC: Leanne Finn MD; Priscila Hannah MD Detasseling Crew Supervisor: Signed 24-Jul-2015 Sleep Study Report Result: Comments: See Note; NOTES: [facility] [address] [place] [address] Split Night Sleep Study MR#: [id number] Acct: [id number] Name: Miguel Angel ESCUDERO Rep #: [id number] : 1950 65 From: Jimmy Coates MD [...] definition according to Medicare Criteria and an [facility] AHI reference is consistent wit h the current Hypopnea definition according to the AASM criteria and is recognized by [facility] as the RDI. PROCEDURE: The study was attended continuously by a textile science technician. Monitored parameters inclu ded left and [...] calculated body mass index of 35 and [place] Sleepiness Scale score of 6/20. The patient [...] and heated humidity. SLEEP STUDY DATA: The [facility] split night study began at 1114:07 [...] M.D. Jimmy Coates MD T: [facility] JOB: [id number] CC: Jimmy Coates MD DD: 08/06 4207/24/15 2205 <Electronically signed by Jimmy Coates MD> Date Jimmy Coates MD Co-signature (if appli cable) Date Signed 12-Feb-2015 Chest 1 View (Portable) Result: Comments: See Note; NOTES: [facility] Imaging Services [address] [place] [address] Radiology Report MR#: [id number] Acct: [id number] Name: KENADIANA JO Rep #: [id number] : 1950 F 65 From: Aaron Salgado MD PCP: Priscila Hannah MD Status: PRE ER Study: Chest 1 View (Portable) Date of Exam: 02/12/15 Exam# [id number] Ordering Dr: Kenroy Arciniega MD S TUDY: [...] Aaron Salgado MD at 11:08 EDT Tel [phone], Service support [phone], RAD/Chest 1 View (Portable) IMPRESSION: No acut e abnormality is seen. Electronically Signed: Aaron Salgado MD at 11:08 EDT Tel [phone], Service support [phone], CC: Priscila Hannah MD; Kenroy Arciniega MD Detasseling Crew Supervisor: Signed 12-Feb-2015 CTA Chest W/WO Contrast Result: Comments: See Note; NOTES: [facility] Imaging Services [address] [place] [address] CAT Scan Report MR#: [id number] Acct: [id number] Name: DIANA ESCUDERO OLGA Rep #: [id number] : 1950 F 65 From: Aaron Salgado MD PCP: Priscila Hannah MD Status: REG ER Study: CTA Chest W/WO Contrast Date of Exam: 02/12/15 Exam# [id number] Ordering Dr: Kenroy Arciniega MD UDY: CTA [...] Aaron Salgado MD at 12:08 EDT Tel [phone], Service support [phone], CC: Priscila Hannah MD; Kenroy Arciniega MD Detasseling Crew Supervisor: Signed 11-Jan-2015 Bilat Scrn Digital AND CAD Result: Comments: See Note; NOTES: [facility] Imaging Services [address] [place] [address] Breast Imaging Report MR#: [id number] Acct: [id number] Name: DIANA ESCUDERO Rep #: [id number] : 1950 F 64 From: Shaan Nunez PCP: Priscila Hannah MD Status: REG CLI Study: Bilat Scrn Digital AND CAD Date of Exam: 01/11/15 Exam# [id number] Ordering Dr: Priscila Hannah MD MAMMOGRAPHY - [...] facility within 30 days. According to [employer], yearly mammograms are recommended starting [...] Signed: Shaan Nunez at 10:22 EDT Tel [phone], Service support [phone], CC: Priscila Hannah MD Detasseling Crew Supervisor: Signed 23-Jul-2014 CTA Chest W/WO Contrast Result: Comments: See Note; NOTES: [facility] Imaging Services [address] [place] [address] CAT Scan Report MR#: [id number] Acct: [id number] Name: DIANA ESCUDERO Rep #: [id number] : 1950 F 64 From: Aaron Salgado MD PCP: Priscila Hannah MD Status: REG CLI Study: CTA Chest W/WO Contrast Date of Exam: 07/23/14 Exam# [id number] Ordering Dr: Priscila Hannah MD S TUDY: [...] Aaron Salgado MD at 12:47 EST Tel [phone], Service support [phone], CC: Priscila Hannah MD Detasseling Crew Supervisor: Signed 04-Jan-2014 Consultation Result: Comments: See Note; NOTES: [facility] Medical Records Department [address] [place] [address] Consultation 01/04/14 1218 MR#: [id number] Acct: [id number] Name: DIANA ESCUDERO Rep #: [id number] : 1950 63 From: Juancho Foy MD PCP: Priscila Hannah MD Status: REG [facility] Y Location: [place] [address] Problem List (1) Bradycardia Status: Acute (2) [...] showed sinus bradycardia, normal QRS duration, normal WI interval, normal QT interval, no ischemic hardy [...] PO Q4H PRN PRN #30 tablet 01/04/14 [Enigma 5/325] Surgical History: appendectomy, cholecystectomy, - - Hysterectomy Psychiatric History: No pertinent psych hx INSURANCE EXECUTIVE History: No pertinent INSURANCE EXECUTIVE his tory Lives: Spouse/ Significant Other Smoking [...] Discharge Instruction Result: Comments: See Note; NOTES: [facility] Medical Records Department [address] [place] [address] Instructions for Home/Discharge Instructions 01/04/14 0731 MR#: [id number] Acc t: [id number] Name: DIANA ESCUDERO Rep #: [id number] : 1950 63 From: Anatoly Diego MD PCP: Priscila Hannah MD Status: REG [facility] Discharge Diet: No Restrictions Discharge Activity: [...] PRN PRN #60 capsule Hydrocodone Bitart/Apap 5-325 [Enigma 5/325] 1 tablet PO Q4H PRN PRN #30 tablet Please Follow Up With: Anatoly Diego When: 2-3 weeks Proposed Discharge Date: 01/05/14 01/04/14 0735 <Electronically signed by Anatoly Diego MD> Date Anatoly Diego MD CC: Priscila Hannah MD 10-Oct-2013 EKG (00275) Comments: see scanned document of test done to see results reviewed today with patient Result: [MEASUREMENTS ANALYSIS] Date of Test: 10/10/2013 08:20:27; Heart Rate: 64; WI Interval: 160; QRS: 90; QT Interval: 394; Corrected QT Interval (QTc): 401; P Wave Hamler: 50; QRS Wave Hamler: 5; T Wave Hamler: 14; Blood Pressure: 122/78 [ECG DIAGNOSTIC STATEMENTS] [...] Active Current Work/Study Status Comments: 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 Status: Active Living Situation: Lives with domestic partner. Comments: , Hindu Status: Active No Caffeine Use Status: Active No Drug Use Status: Active Non Smoker/No Tobacco Use Status: Active Tobacco Use: Never smoker. Status: Active Smoking Status Name Dates Details Never smoker Vital Signs Date Test Result Details 79-Iuh-895397:28 Weight 233 lb Height 65 in Body [...] kg/m2 Body Surface Area Calculated 2.07 m2 4-Arh-412896:12 Temperature 97.6 f Comments: Method: Temporal Pulse [...] kg/m2 Body Surface Area Calculated 2.11 m2 8-Dan-313399:00 Temperature 97.6 f Comments: Method: Temporal Pulse [...] kg/m2 Body Surface Area Calculated 2.11 m2 93-Msk-504710:07 Temperature 97.6 f Comments: Method: Temporal Pulse [...] 05/19/18Has pt arrived? YHow was Urine Obtained? HOOK LOADER TO [facility] [address] [place], [place], [id number] MUCUS, URINE 0 SEEN {/hpf} (Normal) BACTERIA [...] (Normal) :26 Basic Metabolic Profile (BMP) Comments: [facility] [address] [place], [place], [id number] GAP 5 (Normal) Range: 5-15 CO2 29.0 [...] A.D.A. criteria.Please note revised GLUCOSE reference range cvvnernur46/02/2018. 64-Tyh-02730:26 CBC W/Diff, Automated Comments: [facility] [address] [place], [place], [id number] Absolute Lymph 2.03 {X10_3/ul} (Normal) Range: 0.83-4.51 [...] Range: 4.4-11.0 :26 Partial Thromboplast Time Comments: [address], [id number] PTT 28.1 s (Normal) Range: 24.1-36.2 :26 Prothrombin Time w/INR Comments: [address], [address] INR 1.0 (Normal) PROTIME 12.7 s (Normal) Range: 11.7-14.9 :26 Troponin-I Comments: [address], [id number] TROPONIN-I < 0.015 ng/mL (Normal) Comments: TROPONIN-I EXPECTED VALUES <0.045 Negative 0.045 - 0.590 Consistent with Cardiac Damage > OR = 0.600 Critical Value Not every elevated troponin is indicative of WA. T hesevalues should be used with clinical judgement in examiningthe patient's clinical picture for diagnosis. To establisha diagnosis of WA versus myocardial injury, there must be ademonstrated rise and/ or fall in the troponin values, inaddition to ischemic symptoms, EKG changes, new regionalwall motion abnormality, and/or angiographical evidence. PLEASE NOTE: REFERENCE RANGES EDITED 11/01/1719-May-20187:13 Bedside Glucose Comments: [facility] LaboratoryPoint of Vbwh[address] [place], [place] [address] BEDSIDE GLU 101 mg/dL (Normal) Range: 70-110 Comments: MANAGEMENT OF PATIENT CARE PER NURSING PROTOCOL :16 LIPOPROTEIN, BLD, BY NMR Comments: PATIENT WAS FASTINGPERFORMED BY: LabCo[address] [id number] (90055) LP-IR Score 81 (Abnormal) Comments: INSULIN RESISTANCE MARKER <--Insulin Sensitive Insulin Resistant--> Percentile in Reference PopulationInsulin Resistance ScoreLP-IR Score Low 25th 50th 75th High <27 27 45 63 >63LP-IR Score is inaccurate if patient is non-fasting. .The LP-IR score is a laboratory developed i [facility] that has beenassociated with insulin resistance [...] 1600 - 2000 Very High > 2000 35-Luu-442657:35 Basic Metabolic Profile (BMP) Comments: [facility] Us[address] [place], [address] GAP 10 (Normal) Range: 5-15 CO2 30.0 [...] A.D.A. criteria.Please note revised GLUCOSE reference range kegonuhid30/02/2018. 27-Gpu-880387:35 CBC W/Diff, Automated Comments: [facility] Rugloedsro[address] [place], [address] Absolute Lymph 2.44 {X10_3/ul} (Normal) Range: 0.83-4.51 [...] 4.2-5.4 WBC 7.3 K/mm3 (Normal) Range: 4.4-11.0 89-Mfl-169611:35 Troponin-I Comments: [facility] Fbylnmdorp[address] [place], [address] TROPONIN-I < 0.015 ng/mL (Normal) Comments: TROPONIN-I EXPECTED VALUES <0.045 Negative 0.045 - 0.590 Consistent with Cardiac Damage > OR = 0.600 Critical Value Not every elevated troponin is indicative of WA. T hesevalues should be used with clinical judgement in examiningthe patient's clinical picture for diagnosis. To establisha diagnosis of WA versus myocardial injury, there must be ademonstrated rise and/ or fall in the troponin values, inaddition to ischemic symptoms, EKG changes, new regionalwall motion abnormality, and/or angiographical evidence. PLEASE NOTE: REFERENCE RANGES EDITED 11/01/1723-Sep-20178:28 Pathology Report Comments: PERFORMED BY: LUIS [facility] [place] Eazl0876 [facility] [id number] BY: [facility] Dermatopathology [address] [place] [address] [id number] Information: [id number] See MATER Comments: Material submitted: .RIGHT HAND BIOPSYClinical history: .BLACK SPOT ON HAND Note (Normal) Diagnosis:BLUE NEVUS./09/28/2017Electronically signed: .Mya Fay MD, DermatopathologistGross description: .RECEIVED IN FORMALIN LABELED DIANA ESCUDERO AND PALOMO HAND IS A PUGH SKIN PUNCH BIOPSY MEASURING 3.0 MM IN ANDREW METERAND 2.0 MM THICK WITH A OLIVAS, RAISED AREA 2.5 X 1.5 MM. RADHAIN FAHAD.FUN/TMZPathologist provided ICD-10:D22.61CPT .277818 85-Sst-77657:47 Platelet Count on Comments: PATIENT WAS FASTINGPERFORMED BY: BitDefender [facility] Frwchfpujm[address] [id number] BY: CB [facility] Uxdugt6541 [facility] [id number] Citrated Bld Plt Count, Citrated Bld 160 {X10E3/uL} (Normal) Range: 150-379 :47 LIPOPROTEIN, BLD, BY NMR Comments: PATIENT WAS FASTINGPERFORMED BY: [facility] Kdhrxvciep8357 [facility] [id number] BY: [facility] Oggvbe2158 [facility] [id number] Information: PLATELET ON CITRATE BLD [id number] (10126) LP-IR Score 85 (Abnormal) Comments: INSULIN RESISTANCE MARKER <--Insulin Sensitive Insulin Resistant--> Percentile in Reference PopulationInsulin Resistance ScoreLP-IR Score Low 25th 50th 75th High <27 27 45 63 >63LP-IR Score is inaccurate if patient is non-fasting. .The LP-IR score is a laboratory developed i [facility] that has beenassociated with insulin resistance [...] were developed and their performance characteristicsdetermined by [employer]. These assays have not been cleared by [...] 1600 - 2000 Very High > 2000 56-Nwd-28969:43 Albumin/Creatinine Ratio,Urine Comments: PATIENT NOT FASTINGPERFORMED BY: [employer]6370 [facility] [id number] Alb/Creat Ratio <1.4 {mg/g_creat} (Normal) Range: 0.0-30.0 Albumin, Urine <3.0 ug/mL (Normal) Creatinine, Urine 212.4 mg/dL (Normal) :43 CBC With Differential/Platelet Comments: PATIENT NOT FASTINGPERFORMED BY: [facility] [facility] Management6370 [facility] [id number] Immature Grans (Abs) 0.0 {x10E3/uL} (Normal) Range: [...] 3.77-5.28 WBC 6.3 {x10E3/uL} (Normal) Range: 3.4-10.8 62-Xlw-73106:43 Comp. Metabolic Panel (14) Comments: PATIENT NOT FASTINGPERFORMED BY: LabCoPascack Valley Medical CenterOuejqr5377 [facility] [id number] ALT (SGPT) 18 [iU]/L (Normal) Range: 0-32 [...] Glucose, Serum 100 mg/dL (Abnormal) Range: 65-99 81-Aha-25473:43 Urinalysis, Routine Comments: PATIENT NOT FASTINGPERFORMED BY: Sportomanialin6370 [facility] [id number] Microscopic Examination MICNIP (Normal) Comments: Microscopic not indicated and not performed. Nitrite, Urine Negative (Normal) Urobilinogen,Semi-Qn 0.2 mg/dL (Normal) Range: 0.2-1.0 Bilirubin Negative (Normal) Occult Blood Negative (Normal) Ketones Negative (Normal) Glucose Negative (Normal) Protein Negative (Normal) WBC Esterase Negative (Normal) Appearance Clear (Normal) Urine-Color Yellow (Normal) pH 6.0 (Normal) Range: 5.0-7.5 Specific [place] 1.025 (Normal) Range: 1.005-1.030 58-Wvn-439375:21 FLU A+B DIRECT AG, (RAPID) (30219) FLU A+B DIRECT AG, (RAPID) negative (Normal) :32 Potassium Serum (02323) Comments: PATIENT NOT FASTINGPERFORMED BY: ON DEMAND MicroelectronicsPascack Valley Medical CenterEipinj5583 [facility] [id number] BY: [address] [id number] Potassium, Serum 3.9 mmol/L (Normal) Range: 3.5-5.2 :32 Magnesium (24118) Comments: PATIENT NOT FASTINGPERFORMED BY: [employer] DEMAND MicroelectronicsChelsea [place] [address] [facility] [id number] BY: [address] [id number] Magnesium, Serum 2.0 mg/dL (Normal) Range: 1.6-2.3 :32 CCP ANTIBODY (50032) Comments: PATIENT NOT FASTINGPERFORMED BY: [employer] DEM[employer] MicroelectronicsChelsea [place] [address] [facility] [id number] BY: [address] [id number] CCP Antibodies IgG/IgA 10 {units} (Normal) Range: 0-19 Comments: Negative <20 Weak positive 20 - 39 Moderate positive 40 - 59 Strong positive >59 :32 TSH (63352) Comments: PATIENT NOT FASTINGPERFORMED BY: [employer] MicroelectronicsChelsea [place] [address] [facility] [id number] BY: [address] [id number] TSH 3.380 {uIU/mL} (Normal) Range: 0.450-4.500 :32 SED RATE ERYTHROCYTE Comments: PATIENT NOT FASTINGPERFORMED BY: [employer] MicroelectronicsChelsea [place] [address] [facility] [id number] BY: [address] [id number] (80795) Sedimentation Rate-Westergren 14 mm/h (Normal) Range: 0-40 :32 C-REACTIVE PROTEIN (93476) Comments: PATIENT NOT FASTINGPERFORMED BY: [facility] HospitalLIVELENZChelsea Ville [address] [facility] [id number] BY: [address] [id number] C-Reactive Protein, Quant 3.5 mg/L (Normal) Range: 0.0-4.9 21-Lkb-03097:32 JESUS ALBERTO (ANTINUCLEAR ANTIBODY) Comments: PATIENT NOT FASTINGPERFORMED BY: CB [facility] Nczttj1047 [place] [id number] BY: BN [facility] Gvvmnjhuqx6568 [facility] [id number]; fu 3-30 (26635) JESUS ALBERTO Direct Negative (Normal) 31-Pwq-583959:37 Basic Metabolic Profile (BMP) Comments: 'TROP' Serial specimen #1, #2, #3, or #4: 1[facility] [address] [place], [address] GAP 8 (Normal) Range: 5-15 [...] <126 mg/dLsuggests IMPAIRED HOMEOSTASIS per A.D.A. criteria. 46-Asf-470383:37 CBC W/Diff, Automated Comments: [facility] [address]ks[address] [place], [place], [id number] Absolute Lymph 1.93 {X10_3/ul} (Normal) Range: 0.83-4.51 [...] 4.2-5.4 WBC 5.9 K/mm3 (Normal) Range: 4.4-11.0 01-Eci-141830:37 Troponin-I Comments: 'TROP' Serial specimen #1, #2, #3, or #4: [address] [place] [address] Ncyspjtkuk[address]12 [place], [address] TROPONIN-I < 0.02 ng/mL (Normal) Comments: TROPONIN-I EXPECTED VALUES <0.05 NEGATIVE 0.06 - 0.59 AT RISK OF WA > OR = 0.60 SUGGEST WA 69-Cko-651542:16 HEPATITIS C ANTIBODY (25972) Comments: CLient bill for this; PATIENT NOT FASTINGPERFORMED BY: [facility] Wzclce7070 [facility] [id number] Hep C Virus Ab <0.1 {s/co_ratio} (Normal) Range: 0.0-0.9 Comments: Negative: < 0.8 Indeterminate: 0.8 - 0.9 Positive: > 0.9 . The CDC recommends that a positive HCV antibody result be followed up with a HCV Nucleic Acid Amplification test (445918). :32 CBC W/Diff, Automated Comments: [facility] Cxkwpodkee[address] [place], [address] Absolute Lymph 2.31 {X10_3/ul} (Normal) Range: 0.83-4.51 [...] 1'CKMB' Serial Specimen #1, #2 or #3? [address] [place] [address] [address] [place], [address] GAP 7 (Normal) Range: 5-15 [...] 1'CKMB' Serial Specimen #1, #2 or #3? [address] [place] [address] V[address] [place], [place], [address] CKRI 1.1 % (Normal) Range: 0.0-1.4 Comments: [...] 1'CKMB' Serial Specimen #1, #2 or #3? 1[facility] [address]qlcboza[address] [place], [address] TROPONIN-I < 0.02 ng/mL (Normal) Comments: TROPONIN-I EXPECTED VALUES <0.05 NEGATIVE 0.06 - 0.59 AT RISK OF WA > OR = 0.60 SUGGEST WA :30 CBC (Auto) (72980) Comments: PATIENT WAS FASTINGPERFORMED BY: RegenesancePascack Valley Medical CenterDzkqma6679 [facility] [id number] Platelets 165 {x10E3/uL} (Normal) Range: 150-379 RDW 13.8 % (Normal) Range: 12.3-15.4 MCHC 33.1 g/dL (Normal) Range: 31.5-35.7 MCH 31.2 pg (Normal) Range: 26.6-33.0 MCV 94 fL (Normal) Range: 79-97 Hematocrit 43.2 % (Normal) Range: 34.0-46.6 Hemoglobin 14.3 g/dL (Normal) Range: 11.1-15.9 RBC 4.59 {x10E6/uL} (Normal) Range: 3.77-5.28 WBC 6.6 {x10E3/uL} (Normal) Range: 3.4-10.8 :30 Metabolic Panel, Comments: PATIENT WAS FASTINGPERFORMED BY: LOG[address] S[address] [facility] [id number] Information: [id number] Comprehensive (12306) ALT (SGPT) 14 [iU]/L (Normal) Range: 0-32 [...] mg/dL (Normal) Range: 65-99 :30 Lipid Panel (36553) Comments: PATIENT WAS FASTINGPERFORMED BY: [facility]aturAt[facility] [id number] LDL/HDL Ratio 3.6 {ratio_units} (Abnormal) Range: 0.0-3.2 [...] (HGB A1C) Comments: PATIENT WAS FASTINGPERFORMED BY: [facility]andomKind[facility] [id number]; [address] 4[address] (52903) Hemoglobin A1c 5.8 % (Abnormal) Range: 4.8-5.6 Comments: . Pre-diabetes: 5.7 - 6.4 Diabetes: >6.4 Glycemic control for adults with diabetes: <7.0 29-Pmz-606139:59 Urinalysis, Office (65929) UA - LEUKOCYTE ESTERASE Negative (Normal) UA - NITRITE Positive (Normal) URINE UROBILINGN FRANKO TIMED 2 mg/dL (Normal) UA - PROTEIN Negative mg/dL (Normal) UA - PH 5 (Abnormal) UA - BLOOD Negative (Normal) UA - SPECIFIC GRAVITY 1.020 (Normal) UA - KETONES Negative mg/dL (Normal) UA - BILIRUBIN Negative (Normal) UA - GLUCOSE Negative (Normal) 18-Kbk-12109:00 Anticardiolip Ab, IgA/G/M, Comments: PATIENT WAS FASTINGPERFORMED BY: CB [facility] Kkcizh5776 [facility] [id number] BY: TG [facility] KBX9097 [facility] [id number] Qn Anticardiolipin Ab,IgA,Qn <9 {APL_U/mL} (Normal) Range: [...] Positive: >20 - 80 High Positive: >80 66-Fza-707530:37 Basic Metabolic Profile (BMP) Comments: Serial Specimen #1, #2 or #3? 1'TROP' Serial specimen #1, #2, #3, or #4: 1Test performed at:[facility] Wklhnfpevp4054 [address] [place], [place] [address] GAP 7 (Normal) Range: 5-15 CO2 26.0 [...] Comments: Please note revised CREATININE reference range rmkwgmnjo47/22/2015. BUN 16 mg/dL (Normal) Range: 7-18 GLU 134 mg/dL (Abnormal) Range: 70-110 Comments: Fasting Glucose result greater than or equal to 126 mg/dLsuggests DIABETES MELLITUS per A.D.A. criteria. 21-Ucf-636860:37 CBC W/Diff, Automated Comments: Test performed at:[facility] [address] [place] [address] Absolute Lymph 2.35 {X10_3/ul} (Normal) Range: 0.83-4.51 [...] 4.2-5.4 WBC 7.4 K/mm3 (Normal) Range: 4.4-11.0 81-Buu-244945:37 CK-MB Quantitative and Index Comments: Serial Specimen #1, #2 or #3? 1'TROP' Serial specimen #1, #2, #3, or #4: 1Test performed at:[facility] [address] [place] [address] CPKMB 0.8 ng/mL (Normal) Range: 0.0-5.0 Comments: CK-MB and RI Interpretation MB Relative Index Non-AMI <or= 5 NA Indeterminate > 5 <or= 4 AMI > 5 > 4 CPK TOTAL 80 U/L (Normal) Range: 26-192 21-Rep-479776:37 Troponin-I Comments: Serial Specimen #1, #2 or #3? 1'TROP' Serial specimen #1, #2, #3, or #4: 1Test performed at:[facility] [address] [place] [address] TROPONIN-I < 0.02 ng/mL (Normal) Comments: TROPONIN-I EXPECTED VALUES <0.05 NEGATIVE 0.06 - 0.59 AT RISK OF WA > OR = 0.60 SUGGEST WA 43-Hat-781512:59 D-Dimer (73732) Comments: PATIENT NOT FASTINGPERFORMED BY: BN [facility] [address] [id number] BY: CB [facility] Gpgckk4693 [facility] [id number] D-Dimer 0.59 {mg/L_FEU} (Abnormal) Range: 0.00-0.49 Comments: In conjunction with a non-high clinical probability assessment, anormal (<0.50 mg/L FEU) result excludes deep vein thrombosis (DVT)and pulmonary embolism (PE) with high sensitivity. :00 LIPID PANEL (65660) Comments: PATIENT WAS FASTINGPERFORMED BY: ON DEMAND MicroelectronicsMimbres Memorial HospitalUknaay3466 [facility] [id number] BY: TG [employer] HBZ9530 [facility] [id number] LDL/HDL Ratio 3.1 {ratio_units} (Normal) Range: 0.0-3.2 [...] Cholesterol, Total 177 mg/dL (Normal) Range: 100-199 83-Rfz-914302:59 Protein S Profile Comments: PATIENT NOT FASTINGPERFORMED BY: [employer] [id number] BY: [employer] Obsrlm5907 [facility] [id number] Inf ormation: [id number] (18204) Protein S-Functional 119 % (Normal) Range: 60-145 Protein S, Free 108 % (Normal) Range: 56-124 Protein S, Total 137 % (Normal) Range: 58-150 19-Fgr-226749:59 Protein C Profile Comments: PATIENT NOT FASTINGPERFORMED BY: [employer] Gtmqfngofe[address] [id number] BY: ON DEMAND MicroelectronicsMimbres Memorial HospitalUyxhru7562 [facility] [id number] (57179) Protein C-Functional 120 % (Normal) Range: 74-151 Protein C Antigen 104 % (Normal) Range: 70-140 59-Lrh-00866:00 Homocysteine, Plasma Comments: PATIENT WAS FASTINGPERFORMED BY: LOG607 Brorvw8946 Murphy [facility]RxAt[facility] [id number] BY: [employer] NKR2746 [address] [facility] [id number] (11462) Homocyst(e)ine, Plasma 11.2 umol/L (Normal) Range: 0.0-15.0 49-Tcy-834443:59 ANTITHROMBIN III ACTIVTY Comments: PATIENT NOT FASTINGPERFORMED BY: [employer] [id number] BY: Paper[employer] Management6370 [facility] [id number] (16896) Antithrombin Antigen 94 % (Normal) Range: 75-130 Antithrombin Activity 108 % (Normal) Range: 75-135 :59 CLOTTING FACTOR II Comments: PATIENT NOT FASTINGPERFORMED BY: ON DEMAND Microelectronicsrp Mggjngexue[address] [id number] BY: BlisMedialin6370 [facility] [id number] (06329) Factor II Activity 113 % (Normal) Range: 75-130 :00 Factor V Leiden (30751) Comments: PATIENT WAS FASTINGPERFORMED BY: [employer] LabLIVELENZrp Ydlvsw8266 [facility] [id number] BY: Cubicle XOD3284 [facility] [id number] Factor V Leiden FVNEG3 (Normal) Comments: Result: [...] in the workup for venous thrombosis include [id number] mutation in the factor II (prothrombin) gene,protein S and C deficiency, and antithromb in deficiencies.Anticardiolipin antibody and lupus anticoagulant analysismay be appropriate for certain patients, as well ashomocysteine levels. .Contact your local [facility] for information on how to orderadditional testing if desired. .Genetic counselors are available for health care* providers to discuss results at [phone] (7951). .Methodology:DNA analysis of the Factor V gene was performed by allele-specific PCR followed by gel electrophoresis. The diagnosticsensitivity and specificity is >99% for both. Molecular-based testing is highly accurate, but as in any laboratorytest, diagnostic errors may occur. All test results must becombined with clinical information for the most accurateinterpretation. .References:Sly Montez (1996). Clin Lab Med 16: 169-186. .Doar Carrera, PhDOlimpia Wilson, PhDAspen Orta, PhDShiela Chavez, PhDTara Jhaveri, PhDNgozi Cardozo, PhD . 76-Ojr-37788:00 MTHFR (14935) Comments: PATIENT WAS FASTINGPERFORMED BY: CB [facility] Hzcryz1346 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 Compound heterozygosity for the G320Suxr B2018N variants is unlikely to be of clinical [...] discuss these results with healthcare providers at [phone]. .Methylenetetrahydrofolate reductase (MTHFR) is a ke y enzyme in thefolate pathway and is responsible for the metabolism of homocysteine.There are two common variants in the MTHFR gene, c.655C>T(p.Lpq001Bns), referred to as C677T, and c.1286A>C (p.G ku162Haw),referred to as X4639P. Individuals homozygous for C677T (two copiesof the variant), have decreased activity of the MTHFR enzyme and apredisposition to hyperhomocysteinemia, particularly when d eficient infolate. Hyperhomocysteinemia is a risk factor for venous thrombosisand coronary artery disease and is associated with an increased riskof open neural tube defects. The C677T variant reilly s notindependently increase risk of these conditions in the absence ofhyperhomocysteinemia. The X4058W variant is not associated withelevated homocysteine levels unless a C677T variant is also present;h owever, the clinical significance of heterozygosity for both P466Eqif D2280S is controversial. Population data suggest that these twovariants are not present on the same chromosome, but rare exceptionsh ave been reported of triple variant MTHFR genotypes (ie. homozygousfor one variant and heterozygous for the other). Homozygosity urnJ131C has an estimated frequency of 10% to [...] PhDNgozi Cardozo, PhD :52 HgA1C , Office (09334) HgA1C , Office 5.8 % (Normal) Range: 4.6 - 7.1 :31 CBC With Differential/Platelet Comments: PATIENT WAS FASTINGPERFORMED BY: LabCoPascack Valley Medical CenterCehfab7030 [facility] [id number] Information: [id number] Immature Grans (Abs) 0.0 {x10E3/uL} (Normal) Range: [...] (14) Comments: PATIENT WAS FASTINGPERFORMED BY: [facility] Nksjps1676 [facility] [id number] ALT (SGPT) 18 [iU]/L (Normal) Range: 0-32 [...] Glucose, Serum 103 mg/dL (Abnormal) Range: 65-99 04-Orq-115764:04 Urinalysis, Office (74369) UA - PH 6.0 (Normal) UA - LEUKOCYTE ESTERASE Negative (Normal) UA - NITRITE Negative (Normal) URINE UROBILINGN FRANKO TIMED 2 mg/dL (Normal) UA - PROTEIN Negative mg/dL (Normal) UA - BLOOD Negative (Normal) UA - SPECIFIC GRAVITY 1.025 (Normal) UA - KETONES Negative mg/dL (Normal) UA - BILIRUBIN Negative (Normal) UA - GLUCOSE Negative (Normal) 63-Xhn-52941:51 POTASSIUM SERUM (83607) Comments: today; PATIENT NOT FASTINGPERFORMED BY: [facility] Rrskve8067 [facility] [id number] Information: [id number] Potassium, Serum 3.8 mmol/L (Normal) Range: 3.5-5.2 7-Bxz-981164:30 Basic Metabolic Profile (BMP) Comments: 'TROP' Serial specimen #1, #2, #3, or #4: 1'CKMB' Serial Specimen #1, #2 or #3? 1Test performed at:[facility] [address]rqvmtwj[address] [place] [address] GAP 3 (Abnormal) Range: 5-15 [...] 7-18 GLU 89 mg/dL (Normal) Range: 70-110 4-Kvn-567177:30 CBC W/Diff, Automated Comments: Test performed at:[facility] Yiulxgvdmc6928 [place] [address] Absolute Lymph 2.01 {X10_3/ul} (Normal) [...] 4.2-5.4 WBC 6.0 K/mm3 (Normal) Range: 4.4-11.0 0-Emb-505081:30 CK-MB Quantitative and Index Comments: 'TROP' Serial specimen #1, #2, #3, or #4: 1'CKMB' Serial Specimen #1, #2 or #3? 1Test performed at:[facility] Etziasthsu7859 [place] [address] CPKMB 0.8 ng/mL (Normal) Range: 0.0-5.0 Comments: CK-MB and RI Interpretation MB Relative Index Non-AMI <or= 5 NA Indeterminate > 5 <or= 4 AMI > 5 > 4 CPK TOTAL 64 U/L (Normal) Range: 26-192 :30 D-Dimer Quantitative (DVT/PE) Comments: Test performed at:[facility] Baezqlnmli7168 [facility] [place], [place] [address] D-DIMER QUANT 1.86 {FEU/ug/m} (Abnormal) Range: 0.27-0.49 Comments: D-Dimer ELEVATED (>0.49): Additional studies and clinicalassessments are indicated to conclude diagnosis of:Deep Vein Thrombosis (DVT) or Pulmonary Embolism (PE)CRITICAL VALUE REPEATED AND VERIFIED. CALLED TO SHRAVAN.07/23/14 1104 Ricci Delgado.RESULTS READ BACK BY SAME. :30 Troponin-I Comments: 'TROP' Serial specimen #1, #2, #3, or #4: 1'CKMB' Serial Specimen #1, #2 or #3? 1Test performed at:[facility] Tmgyikgbcr4768 [facility] [place], [place] [address] TROPONIN-I < 0.02 ng/mL (Normal) Comments: TROPONIN-I EXPECTED VALUES <0.05 NEGATIVE 0.06 - 0.59 AT RISK OF WA > OR = 0.60 SUGGEST WA :18 HgA1C , Office (82076) HgA1C , Office 5.7 % (Normal) Range: 4.6 - 7.1 :18 Blood Glucose , Office (79995) Blood Glucose , Office 106 (Normal) 28-Rpr-762781:20 CBCD ALC 2.30 {X10_3/ul} (Normal) Range: 0.83-4.51 [...] 4.2-5.4 WBC 5.5 K/mm3 (Normal) Range: 4.4-11.0 92-Glb-557829:20 MRSA+SAID SCRN See Note (Normal) Comments: S. AUREUS S. aureus NegativeMRSA MRSA Negative 39-Hbk-124230:20 UAC Comments: ORDER URINE CULTUREIF POSITIVE NITRITE [...] Yellow (Normal) :54 Blood Glucose , Office (98220) Blood Glucose , Office 123 (Normal) Comments: Not Fasting :54 HgA1C , Office (09542) HgA1C , Office 6.0 % (Normal) Range: 4.6 - 7.1 :31 POTASSIUM SERUM (33014) Comments: patient having drawn in 2 wks; PATIENT NOT FASTINGPERFORMED BY: [facility]Mary [facility]6370 [facility] [id number] Information: [id number] Potassium, Serum 4.0 mmol/L (Normal) Range: 3.5-5.2 :20 Microscopic Examination Comments: PATIENT WAS FASTINGPERFORMED BY: ON DEMAND MicroelectronicsPascack Valley Medical CenterZlenlk6210 [facility] [id number] Bacteria Few (Normal) Mucus Threads Present (Normal) [...] ABS NEGATIVE (Normal) BT A POSITIVE (Normal) 70-Bjp-33050:20 URINALYSIS, W/ MICRO (36085) Comments: PATIENT WAS FASTINGPERFORMED BY: LabCoPascack Valley Medical CenterJmxtzj0790 [facility] [id number] Microscopic Examination See below: (Normal) Comments: Microscopic was indicated and was performed. Nitrite, Urine Negative (Normal) Urobilinogen,Semi-Qn 1.0 mg/dL (Normal) Range: 0.0-1.9 Bilirubin Negative (Normal) Occult Blood Negative (Normal) Ketones Negative (Normal) Glucose Negative (Normal) Protein Trace (Normal) WBC Esterase 2+ (Abnormal) Appearance Clear (Normal) Urine-Color Yellow (Normal) pH 6.5 (Normal) Range: 5.0-7.5 Specific [place] 1.023 (Normal) Range: 1.005-1.030 :20 METABOLIC PANEL, COMPREHENSIVE Comments: PATIENT WAS FASTINGPERFORMED BY: [employer] [address] [facility] [id number] (34931) ALT (SGPT) 20 [iU]/L (Normal) Range: 0-32 [...] mg/dL (Abnormal) Range: 65-99 :20 LIPID PANEL (53199) Comments: PATIENT WAS FASTINGPERFORMED BY: [employer] MicroelectronicsPascack Valley Medical CenterWifdim5114 [facility] [id number] LDL/HDL Ratio 3.8 {ratio_units} (Abnormal) Range: 0.0-3.2 [...] FASTINGPERFORMED BY: [facility]6[address] [facility] [id number] Information: [id number] (64280) Immature Grans (Abs) 0.0 {x10E3/uL} (Normal) Range: [...] (Normal) Range: 3.4-10.8 :09 HgA1C , Office (81800) HgA1C , Office 5.8 % (Normal) Range: 4.6 - 7.1 :09 Blood Glucose , Office (02444) Blood Glucose , Office 129 (Normal) Comments: [...] (Normal) Range: 70-110 :17 HgA1C , Office (89844) HgA1C , Office 5.9 % (Normal) Range: 4.6 - 7.1 :17 Blood Glucose , Office (79196) Blood Glucose , Office 107 (Normal) :15 PROL 10.4 ng/mL (Normal) Comments: NORMAL REFERENCE RANGESFEMALENON- 2.2 - 30.3 ng/mL 8.1 - 347.6 ng/mLPOST- MENOPAUSAL 0.7 - 31.5 ng/mLMALE 2.5 - 17.4 ng/mLNEW TEST METHO D & REFERENCE RANGES NOVEMBER 09, 2011; ADDENDA: has f/u on 06/08/13, will review then 54-Sui-15895:28 BILAT SCRN DIGITAL & CAD Radiology Report [...] be sent to the patient by the [facility] within 30 days. Approximately 10% of breast cancers are not detected by mammography. Anormal mammogram should not delay biopsy of a clinically suspiciousabnormality. Signed:Payton DuttaMarch 15, 2013 at 7:58:55 AM [id number] Signed GP/GP If you are the referring physician and would like to consult with theradiologist who provided this interpretation, please co ntact Unique Yusuf at [phone]. If this radiologist is unavailable, youwill be [...] 03/15/13 0837 Sign by: Aaron Salgado MD 53-Ktm-06033:25 Blood Glucose , Office (49593) Blood Glucose , Office 134 (Normal) :25 HgA1C , Office (43243) HgA1C , Office 5.8 % (Normal) Range: 4.6 - 7.1 2-Lmc-934401:22 PELVIC (NON ) Radiology Report See Note [...] Salgado M.D.January 23, 2013 at 2:31:38 PM [id number] Signed GP/GP If you are the referring physician and would like to consult with theradiologist who provided this interpretati on, please contact Unique Yusuf at [phone]. If this radiologist is unavailable, youwill be directed to another radiologist to assist. If you are a patient with a question regarding this report, pleasecontactyour referring physician directly. Professional Interpretation Provided By: [employer], Phone , These documents contain legally protected [...] size of the right kidney. The right lotiohdigyqmlg42.4 cm. Ambika l renal cortex. The right cortex measures 1.0 cm. Thereisa 1.1 cm x 1.0 cm x 0.9 cm cyst in the inferior pole. There is no righthydronephrosis. Left Kidney: Normal size of the left kidney. The left kidney prlbkkoi02.5cm. Normal renal cortex. The left cortex measures 1.9 cm. There is nodemonstrated renal mass or cyst. There is no left hydronephrosis. Aorta: Unremarkable. I.V.C.: The IVC is pa tent. There is no ascites. IMPRESSION:Fatty infiltration of the liver. The patient is status postcholecystectomy. Signed:Aaron Salgado M.D.January 23, 2013 at 2:2 8:11 PM [id number] Signed GP/GP If you are the referring physician and would like to consult with theradiologist who provided this interpretation, please contact Payton Yusuf at [phone]. If this radiologist is unavailable, youwill be directed to another radiologist to assist. If you are a patient with a question regarding this report, pleasecontactyour referring phys ician directly. Professional Interpretation Provided By: [employer], Phone , These documents contain legally protected [...] Salgado M.D.January 23, 2013 at 2:31:38 PM [id number] Signed GP/GP If you are the referring physician and would like to consult with theradiologist who provided this interpretati on, please contact Unique Yusuf at [phone]. If this radiologist is unavailable, youwill be directed to another radiologist to assist. If you are a patient with a question regarding this report, pleasecontactyour referring physician directly. Professional Interpretation Provided By: [employer], Phone , These documents contain legally protected [...] 01/24/13 1043 Sign by: Aaron Salgado MD 10-Vmb-461026:11 CBC, Platelets & Auto Comments: PATIENT NOT FASTINGPERFORMED BY: LabCoPascack [facility] Medical CenterCfwyjh6215 [facility] [id number] Information: [id number] Diff (93618) Immature Grans (Abs) 0.0 {x10E3/uL} (Normal) Range: [...] (Normal) Range: 70-110 :33 HgA1C , Office (53211) HgA1C , Office 5.8 % (Normal) Range: 4.6 - 7.1 :53 METABOLIC PANEL, COMPREHENSIVE Comments: PATIENT WAS FASTINGPERFORMED BY: LabCoPasc[facility] Medical CenterTydjpj4513 [facility] [id number] (77232) ALT (SGPT) 19 [iU]/L (Normal) Range: 0-32 [...] Glucose, Serum 88 mg/dL (Normal) Range: 65-99 36-Fmz-182411:53 CBC WITH MANUAL DIFF Comments: PATIENT WAS FASTINGPERFORMED BY: [facility] [facility] [id number] Information: [id number] (58787) Immature Grans (Abs) 0.0 {x10E3/uL} (Normal) Range: [...] 3.77-5.28 WBC 7.5 {x10E3/uL} (Normal) Range: 4.0-10.5 83-Lst-182096:53 LIPID PANEL (16604) Comments: PATIENT WAS FASTINGPERFORMED BY: LabCoP[facility] CenterTqlfgd6729 [facility] [id number] LDL/HDL Ratio 3.3 {ratio_units} (Abnormal) Range: 0.0-3.2 LDL Cholesterol Calc 136 mg/dL (Abnormal) Range: 0-99 HDL Cholesterol 41 mg/dL (Normal) Comments: According to ATP-III Guidelines, HDL-C >59 mg/dL is considered anegative risk factor for CHD. VLDL Cholesterol José Luis 45 mg/dL (Abnormal) Range: 5-40 Triglycerides 226 mg/dL (Abnormal) Range: 0-149 Cholesterol, Total 222 mg/dL (Abnormal) Range: 100-199 84-Uip-91473:51 BILAT SCRN DIGITAL & CAD Radiology Report [...] Salgado M.D.January 18, 2012 at 10:04:04 AM [id number] Signed GP/GP If you are the referring physician and would like to consult with theradiologist who pro vided this interpretation, please contact Unique Yusuf at [phone]. If this radiologist is unavailable, youwill be directed to another radiologist to assist. If you are a patient with a q uestion regarding this report, pleasecontactyour referring physician directly. Professional Interpretation Provided By: [employer], Phone , Dictated on 01/18/12 0759 by Laurita Salgado MDscribed on 01/18/12 1010 by ITS IMPORTSign by Aaron Salgado MD on 01/18/12 1011 Sign by: Aaron Salgado MD 8-Nnf-678796:43 MICROALBUMIN: CREATININE RATIO Comments: PATIENT WAS FASTINGPERFORMED BY: LabCoP[facility] Medical CenterIdetut6[address] [facility] [id number] (14268) AND (91722) Microalb/Creat Ratio 1.4 {mg/g_creat} (Normal) Range: 0.0-30.0 Microalbumin, Urine 2.3 ug/mL (Normal) Range: 0.0-17.0 Creatinine, Urine 167.9 mg/dL (Normal) Range: 15.0-278.0 :43 METABOLIC PANEL, COMPREHENSIVE Comments: PATIENT WAS FASTINGPERFORMED BY: [facility]70 [facility] [id number] (66959) ALT (SGPT) 24 [iU]/L (Normal) Range: 0-40 [...] Glucose, Serum 95 mg/dL (Normal) Range: 65-99 2-Hor-670435:43 LIPID PANEL (82108) Comments: PATIENT WAS FASTINGPERFORMED BY: [employer] [facility] [id number] LDL/HDL Ratio 3.2 {ratio_units} (Normal) Range: 0.0-3.2 LDL Cholesterol Calc 115 mg/dL (Abnormal) Range: 0-99 VLDL Cholesterol José Luis 29 mg/dL (Normal) Range: 5-40 HDL Cholesterol 36 mg/dL (Abnormal) Comments: According to ATP-III Guidelines, HDL-C >59 mg/dL is considered anegative risk factor for CHD. Triglycerides 146 mg/dL (Normal) Range: 0-149 Cholesterol, Total 180 mg/dL (Normal) Range: 100-199 7-Pko-164874:43 CBC WITH MANUAL DIFF Comments: PATIENT WAS FASTINGPERFORMED BY: [facility]CoP[facility] CenterCncqjg3232 [facility] [id number] Information: [id number] (68038) Immature Grans (Abs) 0.0 {x10E3/uL} (Normal) Range: [...] population. WBC 5.9 {x10E3/uL} (Normal) Range: 4.0-10.5 06-Nwy-764107:18 HgA1C , Office (32873) HgA1C , Office 6.1 % (Normal) Range: 4.6 - 7.1 12-Txx-476615:18 Blood Glucose , Office (83271) Blood Glucose , Office 125 (Normal) 71-Lmu-010831:00 Thin prep Pap Comments: Source.............Cervical;EndocervicalNo. of containers..01 CYTYC Thin Prep VialPATIENT NOT FASTINGPERFORMED BY: [address] [id number] Information: [id number] (64953) Note: PAPSMR (Normal) Comments: The Pap smear [...] ; Routine gynecolog ical examina Imelda Batres Equipment Worker (ASCP) 63-Mur-31492:00 BILAT SCRN DIGITAL & CAD Radiology Report [...] 0620 Sign by: __ Aaron Salgado MD 3-Qci-350978:24 CBC & PLATELETS (AUTO) Comments: PATIENT NOT FASTINGPERFORMED BY: [facility] Sbrnvm4790 [facility] [id number] Information: [id number]; appt 11/28/10 (44944) MCH 31.6 pg (Normal) Range: 27.0-34.0 MCHC [...] 27 45 63 >63Performed at: S[facility] - [employer] [address] [place], [place] [id number] Director: Stefano Mace PhD, Phone: [phone] HDL SIZE <TEST NOT PERFORMED> (Normal) INSULIN [...] TOT 209 mg/dL (Abnormal) LIPIDS . (Normal) 9-Lhl-411640:12 CULT, DP WOUND Comments: COMMENTS: CULTURE, SENSITIVITY,AREOBES, [...] STRIMETHOPRIM/SULFAMETHOXAZ $ <=10 SVANCOMYCIN $ 1 S 6-Hcr-770354:10 CBC Comments: COMMENTS: AC ROOM 6 HCT [...] 11.6-14.6 WBC 7.6 K/mm3 (Normal) Range: 4.4-11.0 02-Hkn-95869:40 CULTURE, NOSE GRAM STAIN See Note (Normal) [...] 1 S :56 Blood Glucose , Office (12430) Blood Glucose , Office 102 (Normal) :56 HgA1C , Office (08982) HgA1C , Office 6.1 % (Normal) Range: 4.6 - 7.1 :49 MICROALBUMIN: CREATININE Comments: PATIENT WAS FASTINGPERFORMED BY: [employer] Rus1413 [facility] [id number] BY: [facility] [facility] [id number] RATIO (68501) AND (91300) Microalb/Creat Ratio 2.3 {mg/g_creat} (Normal) Range: 0.0-30.0 Microalbumin, Urine 3.4 ug/mL (Normal) Range: 0.0-17.0 Creatinine, Urine 150.2 mg/dL (Normal) Range: 15.0-278.0 :49 LIPOPROTEIN, BLD, BY NMR Comments: PATIENT WAS FASTINGPERFORMED BY: [employer] Xzr[address] [place] [id number] BY: JERMAINE [facility] Babijv4052 [facility] [id number] Information: ADD [id number] AND DRAW FEE [id number] (72440) LP-IR 83 Comments: The LP-IR Score combines [...] (Abnormal) Choleste 220 mg/dL galina, (Abnormal) Total 03-Uic-24447:49 METABOLIC PANEL, Comments: PATIENT WAS FASTINGPERFORMED BY: [employer] Yhk0161 Tom[address] [facility] [id number] BY: JERMAINE MONTAJ6370 [facility] [id number] COMPREHENSIVE (72193) ALT (SGPT) 22 [iU]/L (Normal) Range: 0-40 [...] Glucose, Serum 107 mg/dL (Abnormal) Range: 65-99 32-Aai-26639:49 LIPID PANEL (06360) Comments: PATIENT WAS FASTINGPERFORMED BY: [employer]e [employer] Lqq7819 Tom[address] [facility] [id number] BY: JERMAINE MONTAJ6370 [facility] [id number] LDL Cholesterol Calc 135 mg/dL (Abnormal) Range: 0-99 LDL/HDL Ratio 4.1 {ratio_units} (Abnormal) Range: 0.0-3.2 VLDL Cholesterol José Luis 52 mg/dL (Abnormal) Range: 5-40 HDL Cholesterol 33 mg/dL (Abnormal) Comments: According to ATP-III Guidelines, HDL-C >59 mg/dL is considered anegative risk factor for CHD. Triglycerides 261 mg/dL (Abnormal) Range: 0-149 Cholesterol, Total 220 mg/dL (Abnormal) Range: 100-199 73-Yns-62112:49 CBC WITH MANUAL DIFF Comments: PATIENT WAS FASTINGPERFORMED BY: [employer] Syp[address] [place] [facility] [id number] BY: JERMAINE [facility] Odxfoy4943 [facility] [id number] (39415) Baso (Absolute) 0.1 {x10E3/uL} (Normal) Range: 0.0-0.2 [...] 3.80-5.10 WBC 6.7 {x10E3/uL} (Normal) Range: 4.0-10.5 9-Fcw-650447:35 MARYJANE CULTURE-OTHER (08184) Comments: PATIENT NOT FASTINGPERFORMED BY: [facility] [facility] [id number] Information: SRC:THRT [id number] Result 1 RRF (Normal) Comments: Routine respiratory bin Upper Respiratory Culture Final report (Normal) 23-Jul-20098:07 Rapid Strep Test, Office (96253) Rapid Strep Test, Negative (Normal) Office :2 Potassium, Serum 3.8 mmol/L (Normal) Comments: PATIENT WAS FASTINGPERFORMED BY: [facility] [facility] [id number] 4 Range: 3.5-5.2 53-Cho-791421:00 BILAT SCRN DIGITAL & CAD Radiology Report See Note (Normal) Comments: Exam Number: [id number] MAMMOGRAM, BILATERAL SCREENING DIGITAL AND CAD HISTORYRoutine [...] werealso examined with computer-aided detection s oftware ([employer] Reported By: KENNA SWEET M.D. 27-Feb-20098:24 Lipid Panel (65523) Comments: PATIENT WAS FASTINGClinical Information: ADD [id number], [id number] PERFORMED BY: [employer] MicroelectronicsChel[place] [address] [facility] [id number] Cholesterol, Total 224 mg/dL (Abnormal) Range: 100-199 HDL Cholesterol 31 mg/dL (Abnormal) Comments: According to ATP-III Guidelines, HDL-C >59 mg/dL is considered anegative risk factor for CHD. LDL Cholesterol Calc 122 mg/dL (Abnormal) Range: 0-99 LDL/HDL Ratio 3.9 {ratio_units} (Abnormal) Range: 0.0-3.2 Triglycerides 354 mg/dL (Abnormal) Range: 0-149 VLDL Cholesterol José Luis 71 mg/dL (Abnormal) Range: 5-40 95-Lah-955210:16 JESUS ALBERTO (ANTINUCLEAR ANTIBODY) Comments: PATIENT NOT FASTINGPERFORMED BY: [employer] [id number] (71586) Antinuclear Antibodies Direct Negative (Normal) 68-Rob-945227:16 C-REACTIVE PROTEIN (62709) Comments: PATIENT NOT FASTINGPERFORMED BY: [place] [address] [facility] [id number] C-Reactive Protein, Quant 8.0 mg/L (Abnormal) Range: 0.0-4.9 28-Dys-691928:16 CBC (AUTO) (36866) Comments: PATIENT NOT FASTINGPERFORMED BY: Lydia[address] [id number] Hematocrit 42.4 % (Normal) Range: 34.0-44.0 Hemoglobin 14.4 g/dL (Normal) Range: 11.5-15.0 MCH 31.9 pg (Normal) Range: 27.0-34.0 MCHC 34.0 g/dL (Normal) Range: 32.0-36.0 MCV 94 fL (Normal) Range: 80-98 Platelets 160 {x10E3/uL} (Normal) Range: 140-415 RBC 4.52 {x10E6/uL} (Normal) Range: 3.80-5.10 RDW 14.1 % (Normal) Range: 11.7-15.0 WBC 7.6 {x10E3/uL} (Normal) Range: 4.0-10.5 47-Xjx-009663:16 Folate (27996) Comments: PATIENT NOT FASTINGPERFORMED BY: [facility] [facility] [id number] Folate (Folic Acid), Serum 17.4 ng/mL (Normal) Comments: Indeterminate: 3.4 - 5.4 Deficient: <3.4 70-Mbd-797150:16 METABOLIC PANEL, COMPREHENSIVE Comments: PATIENT NOT FASTINGPERFORMED BY: [facility] [facility] [id number] (17669) A/G Ratio 1.2 (Normal) Range: 1.1-2.5 Albumin, [...] Sodium, Serum 142 mmol/L (Normal) Range: 135-145 29-Amo-567903:16 RHEUMATOID FACTOR-QUANT (37151) Comments: PATIENT NOT FASTINGPERFORMED BY: [place] [address] [facility] [id number] RA Latex Turbid. 9.3 {IU/mL} (Normal) Range: 0.0-13.9 69-Ght-096640:16 SED RATE ERYTHROCYTE (68866) Comments: PATIENT NOT FASTINGPERFORMED BY: [place] [address] [facility] [id number] Sedimentation Rate-Westergren 21 mm/h (Normal) Range: 0-30 98-Ijt-281329:16 TSH (30528) Comments: PATIENT NOT FASTINGPERFORMED BY: [place] [address] [facility] [id number] TSH 2.690 {uIU/mL} (Normal) Range: 0.450-4.500 53-Nyw-946297:16 VITAMIN B-12 (CYANOCOBALAMIN) Comments: PATIENT NOT FASTINGPERFORMED BY: [place] [address] [facility] [id number] (22400) Vitamin B12 348 pg/mL (Normal) Range: 211-911 23-Jan-20099:35 Lipid Panel (88577) Comments: PATIENT WAS FASTINGClinical Information: ADD 504697, [id number] PERFORMED BY: [facility] [facility] [id number] Cholesterol, Total 208 mg/dL (Abnormal) Range: 100-199 HDL Cholesterol 32 mg/dL (Abnormal) Comments: According to ATP-III Guidelines, HDL-C >59 mg/dL is considered anegative risk factor for CHD. LDL Cholesterol Calc 124 mg/dL (Abnormal) Range: 0-99 LDL/HDL Ratio 3.9 {ratio_units} (Abnormal) Range: 0.0-3.2 Triglycerides 261 mg/dL (Abnormal) Range: 0-149 VLDL Cholesterol José Luis 52 mg/dL (Abnormal) Range: 5-40 :47 HgA1C , Office (77912) HgA1C , Office 5.8 % (Normal) Range: 4.6 - 7.1 :47 Blood Glucose , Office (30779) Blood Glucose , Office 128 (Normal) :43 Urinalysis, Office (34076) UA - LEUKOCYTE ESTERASE Trace (Normal) UA [...] Indication: Acute sinusitis Planned Observations LIPID PANEL (50320)Indication: Mixed hyperlipidemia On: 8-Dke-333908:45 Request Platelet 53876 (citrate, nonclumping tube)Indication: Thrombocytopenia, unspecified On: 22-Jul-20178:19 Request Metabolic Panel, Comprehensive (63085)Indication: Benign essential hypertension On: 79-Lxx-335339:46 Request MICROALBUMIN: CREATININE RATIO (24914) AND (98991)Indication: Benign essential hypertension On: 42-Fhc-972296:45 Request URINALYSIS (88071)Indication: Benign essential hypertension On: :45 Request CBC WITH MANUAL DIFF (72932)Indication: Benign essential hypertension On: 46-Pna-126966:45 Request Platelet Count, Citrated (38167)Indication: Thrombocytopenia, unspecified On: :11 Request LIPOPROTEIN, BLD, BY NMR (98444)Indication: Mixed hyperlipidemia On: :07 Request Lipase (37656)Indication: Abdominal pain On: :24 Request Comments: add to hospital labs. Amylase (70700)Indication: Abdominal pain On: :24 Request Comments: add to hospital labs. Antiphospholipid atb (58009)Indication: Pulmonary emboli On: : Request ANTICOAG ANTTHROMB III & ASSAY (15774)Indication: Pulmonary emboli On: : Request METABOLIC PANEL, COMPREHENSIVE (04326)Indication: Benign essential hypertension On: :37 Request Comments: in three months (approximately) CBC with auto diff (63447)Indication: Benign essential hypertension On: :37 Request Comments: in three months (approximately) Troponin I (11659)Indication: Chest pain at rest On: : Request CPK MB FRACTION (21564)Indication: Chest pain at rest On: : Request CREATINE KINASE TOTAL (38805)Indication: Chest pain at rest On: : Request D-Dimer (85919)Indication: Chest pain at rest On: 4-Mwg-030448:00 Request Metabolic Panel, Basic (45053)Indication: Chest pain at rest On: :58 Request CBC (Auto) (17547)Indication: Chest pain at rest On: :58 Request URINALYSIS, W/ MICRO (18217)Indication: Benign essential hypertension On: :29 Request METABOLIC PANEL, COMPREHENSIVE (41103)Indication: Benign essential hypertension On: :29 Request LIPID PANEL (86919)Indication: Benign essential hypertension On: :29 Request CBC W/AUTO DIFF WBC (97684)Indication: Benign essential hypertension On: :29 Request URINALYSIS (06805)Indication: UTI (lower urinary tract infection) On: :49 Request LIPID PANEL (74325)Indication: Benign essential hypertension On: : Request CBC WITH MANUAL DIFF (61263)Indication: Thrombocytopenia, unspecified On: :27 Request METABOLIC PANEL, COMPREHENSIVE (73005)Indication: Benign essential hypertension On: :27 Request TSH (THYROID STIMULATING HORMONE) (35375)Indication: Post-menopausal bleeding On: :37 Request PROLACTIN (92126)Indication: Post-menopausal bleeding On: 81-Ovh-84843:37 Request HEPATIC FUNCTION PANEL (15269)Indication: Hyperglyceridemia On: :05 Request LIPOPROTEIN, BLD, BY NMR (08886)Indication: Hyperglyceridemia On: :04 Request CBC, Platelets & Auto Diff (61371)Indication: Thrombocytopenia, unspecified On: :04 Request Comments: citrate tube Potassium Serum (63236)Indication: Hypokalemia On: 40-Lui-056405:36 Request Planned Encounters Medical; CARRIE Pre Wellness Exam (DB Nurse) - On: 26-Jul-2018 8:00 [facility] SUZY Spencer; CARRIE Wellness Exam (Doctor) - On: 16-Aug-2018 8:00 [facility] Priscila Hannah MD, MD, Dana M Planned Procedures EEGBy: Priscila Hannah MD On: 21-May-2018 Intent Priscila FLYNN MRI OF BRAIN WITH AND WITHOUT On: 21-May-2018 Intent CONTRAST (17163)By: Priscila Hannah MD, MD, Dana M EKG (88962)By: Priscila Hannah MD On: 02-Dec-2017 Intent Priscila Hannah MD Radiology - Foot - LeftBy: Brielle On: 12-Aug-2017 Intent Priscila FLYNN MD, Dana M TDAP VACCINE >7 IM (85462)By: On: 22-Jul-2017 Intent Priscila Hannah MD, MD, Dana Comments: tdap 0.5mL prefilled syringelot:9KO69htq:10/2019L DELT IMpt tolerated wellAD POLISHER ALUMINUM M MAMMOGRAM BREAST BILATERAL SCREENING On: 02-Apr-2017 Intent DIGITAL (41357)By: Priscila Hannah MD, MD, Dana M Kenalog Injection, 10 mgm On: 15-Feb-2017 Intent (J3301)By: Priscila Hannah MD Comments: lot numer [id number] 05/08 marcaine [id number] 06/21/18 Priscila Hannah MD Echo CompleteBy: Priscila Hannah MD On: 10-Sep-2016 Intent Priscila Hannah MD Comments: rule out pericarditis and ? pericardial fluid EKG (86014)By: Priscila Hannah MD On: 04-Sep-2016 Intent Priscila Hannah MD Comments: see scanned document of test done to see results reviewed today with patient Bone Density StudyBy: Brielle FLYNN, On: 09-Jun-2016 Intent Priscila Hernandez MD Kenalog Injection, 10 mgm On: 21-Apr-2016 Intent (J3301)By: Priscila Hannah MD Comments: buupivacaine lot 61-147-0k 06-21-17 kenalog [id number] 09-05 Priscila Hannah MD DOPPLER ULTRASOUND OF RIGHT UPPER On: 20-Apr-2016 Intent EXTREMITY FOR VENOUS THROMBOEMBOLISM (53246)By: Priscila Hannah MD, MD, Dana M MAMMOGRAM, SCREENING, BOTH BREAST On: 27-Feb-2016 Intent (00653)By: Priscila Hannah MD, MD, Dana M Venous Doppler - BothBy: Brielle FLYNN, On: 06-Dec-2015 Intent Priscila Hernandez MD Comments: lower legs rule out DVT ADMINISTRATION OF INFLUENZA VIRUS On: 18-Apr-2015 Intent VACCINE (G0008)By: Priscila Hannah MD Comments: Lot:[id number]:IMLocation:Rt deltoiiddose: .5mlGiven by:Priscila Potter MD FLU VAC, SPLIT, >3 YEARS, INTRAMUSC On: 18-Apr-2015 Intent (80529)By: Priscila Hannah MD Comments: Lot #:[id number] date:Amount given:0.5mlRoute: IMSite given:L DltdGiven by: Peyton CHAMPION and ABN signed Quad Flu Priscila Hannah MD BILATERAL MAMMOGRAMS (36779)By: On: 05-Nov-2014 Intent Priscila Hannah MD, MD, Dana M CT - Chest (IV Contrast Needed)By: On: 23-Jul-2014 Intent Priscila Hannah MD, MD, Dana M COMPUTED TOMOGRAPHY ANGIOGRAPHY OF On: 23-Jul-2014 Intent CHEST WITH AND WITHOUT CONTRAST Comments: rule out PE (15345)By: Priscila Hannah MD, MD, Dana M EKG (30826)By: Lindsey Verde DO On: 05-Jul-2014 Intent Comments: sinus johanny with no chg MAMMOGRAM, SCREENING, BOTH BREAST On: 26-Apr-2014 Intent (33936)By: Priscila Hannah MD, MD, Dana M BILATERAL MAMMOGRAMS (76237)By: On: 27-Mar-2014 Intent Priscila Hannah MD, MD, Dana M IMMUNIZ ADMNIN, 1 VAC, SNGL/COMBO On: 27-Mar-2014 Intent (09105)By: Priscila Hannah MD Comments: Lot #[id number]-L dltd, IMDose prefilled syringegiven by:MLJOE alanizNVIS and ABN signed Priscila Hannah MD FLU VAC, SPLIT, >3 YEARS, INTRAMUSC On: 27-Mar-2014 Intent (51180)By: Priscila Hannah MD, MD, Dana M Eprescribed prescriptions (G8553)By: On: 10-Oct-2013 Intent Priscila Hannah MD, MD, Dana M Phenergan Injection, up to 50 mg On: 22-Sep-2013 Intent (J2550)By: Nona Whiting CNP Comments: [id number], IM Nyla, POLISHER ALUMINUM INFUSION, NORMAL SALINE SOLUTION , On: 22-Sep-2013 Intent 1000 CC (Special Coverage Instructions Apply. See MCM: 2049) (J7030)By: Nona Whiting CNP HYDRATION IV INFUSION, INIT On: 22-Sep-2013 Intent (08804)By: Nona Whiting CNP Eprescribed prescriptions ([id number])By: On: 10-Jul-2013 Intent Nathalie Nicole Breast Screening - BilateralBy: On: 06-Feb-2013 Intent Priscila Hannah MD, MD, Dana M IMMUNIZ ADMNIN, 1 VAC, SNGL/COMBO On: 06-Feb-2013 Intent (78338)By: [place] ([id number])By: Tj, On: 06-Feb-2013 Intent SUZY Ultrasound - Abdomen Complete & On: 18-Jan-2013 Intent PelvisBy: Nona Whiting CNP EKG ([id number])By: Priscila Hannah MD On: 12-Jul-2012 Intent Priscila Hannah MD Comments: see scanned document of test done to see results reviewed today with patient Eprescribed prescriptions ([id number])By: On: 12-Jul-2012 Intent Long POLISHER ALUMINUM, Nyla L MAMMOGRAM, SCREENING, BOTH BREASTS On: 06-Oct-2011 Intent ([id number])By: Priscila Hannah MD Comments: 11-04-11 Priscila Hannah MD MAMMOGRAM, SCREENING, BOTH BREASTS On: 28-Nov-2010 Intent (08706)By: Priscila Hannah MD, MD, Dana M MAMMOGRAM, SCREENING, BOTH BREASTS On: 23-Oct-2010 Intent ([id number])By: Priscila Hannah MD, MD, Dana M EEGBy: Lindsey Verde DO On: 20-Aug-2010 Intent EKG ([id number])By: Priscila Hannah MD On: 20-Dec-2009 Intent Priscila Hannah MD EKG ([id number])By: Priscila Hannah MD On: 17-Jan-2009 Intent Priscila Hannah MD MAMMOGRAM, SCREENING, BOTH BREASTS On: 17-Jan-2009 Intent (02070)By: Priscila Hannah MD, MD, Dana M Pulse Oximetry (29355)By: Yung On: 04-Jul-2008 Intent Gabriela Comments: 98% Phenergan Injection, up to 50 mg On: 25-Apr-2008 Intent (J2550)By: Nona Whiting CNP Comments: 25mg given IMAmt: 1mlLot: [id number]: 03/2010Route: IMSite: left hipTolerated: wellGiven By: Sherlyn, POLISHER ALUMINUM INFUSION, NORMAL SALINE SOLUTION , On: 25-Apr-2008 Intent 1000 CC (Special Coverage Comments: IV Therapy initiated (Hamzah Black LPN)22G, 1inchSite: right wristTolerated: wellB. Ino LPN Instructions Apply. See MCM: 2048) ([id number])By: Nona Whiting CNP HYDRATION IV INFUSION, INIT On: 25-Apr-2008 Intent (79078)By: Nona Whiting CNP FLU VAC, SPLIT, >3 YEARS, INTRAMUSC On: 21-May-2006 Intent ([id number])By: SUZY Spencer IMMUNIZ ADMNIN, 1 VAC, SNGL/COMBO On: 21-May-2006 Intent ([id number])By: SUZY Spencer Planned Medications INFUSION, NORMAL SALINE [...] for Tdap vaccination (Renamed from Need for mamvxeuqkr-pdjzbyb-uutzsmits (Tdap) vaccine, adult/adolescent), Thrombocytopenia, unspecified Comprehensive Internal [...] Woman Exam (V72.31) (Pap,Mammo,Routine Female) (Renamed from [employer] Woman V72.31 (p,m)), Obesity (278.00) Comprehensive Internal [...] Woman Exam (V72.31) (Pap,Mammo,Routine Female) (Renamed from [facility] V72.31 (p,m)), Obesity (278.00), Thrombocytopenia, unspecified (287.5), [...] high cholesterol and other (allergic rhinitis, obesity, ROSMAARIA, hx. postmenopausal bleeding ). Encounter Diagnosis: Other [...] Symptoms: Pt just flew home from [place] yesterday.- yellow green nasal discharge- sx for [...]
--- OUTSIDE RECORDS SUMMARY | 2018-07-16 04:33 | XMS RPT_ITS | Continuity of Care Document ---
:1950 Author Organization [facility] Address [facility] [address] [place] [address] Phone Care Team Providers Name Role Phone [...] depression lost job was in . lost [employer] and she has to drive around. life withsomeone OCD, hoarder. on ambien for sleep per Dr. coates. Wellbutrin start but had insomni a in past. working with [employer]. doing okay on incresae welbutrin.tried Effexor, paxil [...] adipex and topamax. 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 got [...] 18-Apr-2015 End : 19-Apr-2015 Inactive BD Disp Phoenix 30G X 1/2 Miscellaneous 1 (one) Misc Misc bid for 90 days Refills: 3 Ordered:21-Apr-2016 SUYZ Spencer Start : 23-Sep-2015 End : 21-Apr-2016 [...] QD for 0 days Refills: 0 Ordered:13-Nov-2009 Leanen Marie Start : 01-Feb-2009 Inactive LOVAZA, 1GM [...] : 20-Dec-2009 End : 02-May-2010 Inactive NYSTATIN, 794569IGSY/ML (Mouth/Throat Suspension) 15 Suspension qid swish and swallow for 0 days Quantity: 450 {Milliliter} Refills: 0 Ordered:20-Aug-2010 Suzette Black LPN Start : 04-Aug-2010 End : 20-Aug-2010 Inactive PANTOPRAZOLE SODIUM, 40MG (Oral Tablet Delayed Release) 1 (one) Tablet DR daily for 0 days Quantity: 30 {Tablet} Refills: 6 Ordered:06-Dec-2015 SUZY Spencer Start : 20-Apr-2015 End : 06-Dec-2015 Inactive Pen Phoenix 5/16 31G X 8 MM Miscellaneous 1 [...] Leanne Marie Start : 29-Jul-2009 Inactive ZOSTAVAX, 26809KDW/0.65ML (Subcutaneous Solution Reconstituted) uad For Solution one [...] epig was in hospital and work up [facility]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 ppi and carafate helping. [...] for Tdap vaccination (Renamed from Need for dmulqosjvy-glvheib-tznsbhsda (Tdap) vaccine, adult/adolescent) (Z23, V06.1) Status: Resolved [...] 2007, 2013 bilateral LEFT HEART CARDIAC CATH (75092) Completed Comments: Dr. Alexander nasal abscess I and D 04-30 Completed Date Value Details 03-Mar-2018 Inital Evaluation (1) - PT Result: Comments: See Note; NOTES: [facility] [address] [place] [address] Fax REHABILITATION SERVICES INITIAL EVALUATION MR#: [id number] Acct: [id number] Name: DIANA ESCUDERO Rep #: [id number] : 1950 68 From: Lazaro Jackson DPT Referring Dr.: GENOVEVA Myers Status: REG RCR Insurance: [employer] P[employer] SELF PAY INSURANCE Patient's Visit Information [...] pain (8/10) at rest. 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 Please let me know if there are questions or concerns regarding this plan of care. Physician Signature: Date: <Electronically signed by Lazaro Jackson DPT&amp ;#62; 03/03/18 2740 CC: GENOVEVA Myers; Kelly Hannah MD CLS Signed For Medicare only, by signing this I certify the plan of care. Physicians Signature Date 16-Feb-2018 12 Lead Electrocardiogram Result: Comments: See Note; NOTES: [facility] Cardiovascular Services [address] [place] [address] 12 Lead EKG 02/14/18 1459 MR#: [id number] Acct: [id number] Name: DIANA ESCUDERO Rep #: [id number] : 1950 68 From: Harris Brandt MD [...] Int : 401 ms Sinus bradycardia Inferior IL, age undeterm ined, cannot be excluded Confirmed by KEVIN FLYNN, HARRIS ([id number]), multimedia editor NA DOWELL (56) on 02/16/2018 1:34:57 PM Referred By: BRIEN Confirmed By:HARRIS BRANDT MD 02/16/18 1335 Date __ Harris Brandt MD CC: Kelly Hannah MD; Kasi Worley MD Signed 15-Feb-2018 Emergency Department Summary Result: Comments: See Note; NOTES: [facility] Medical Records Department [address] [place] [address] Emergency Department Summary 02/14/18 1636 MR#: [id number] Acct: [id number] Name: DIANA ESCUDERO Rep #: [id number] : 1950 68 From: Kasi Worley MD [...] score 1. This note was generated with Clutch[employer]io dictation software. It may contain incorrect words, [...] your Primary Care Provider. Call [facility] ([phone]) or report to the closest Emergency Room. Call 911 if necessary. 02/15/18 0046 <Electronically signed by Jose Daniel Worley MD> Date Kasi Worley MD Cosigner Signature (If Indicated): Date CC: Kelly Hannah MD 14-Feb-2018 Venous Duplex Lower Extremity Result: Comments: See Note; NOTES: [facility] Cardiovascular Services [address] [place] [address] Venous Duplex US, Unilateral 02/14/18 1549 MR#: [id number] Acct: [id number] Name: DIANA HICKMAN OLGA Rep #: [id number] : 1950 68 From: Abdoulaye Landa MD [...] Dictated: 0 02/14/18 1549 Date Transcribed: 02/14/181740 Director Of Nursing: Signed 14-Feb-2018 Chest 1 View (Portable) Result: Comments: See Note; NOTES: [facility] Imaging Services [address] [place] [address] Chest 1 View (Portable) MR#: [id number] Acct: [id number] Name: DIANA ESCUDERO Rep #: [id number] : 1950 F 68 From: Aaron Salgado MD PCP: Kelly Hannah MD Status: [facility] ER Study: Chest 1 View (Portable) Date of Exam: 02/14/18 Exam# [id number] Ordering Dr: Kasi Worley MD STUD Y: [...] Aaron Salgado MD at 15:52 EDT Tel [phone], Service support , CC: Kelly Salgado; Kasi Worley MD Director Of Nursing: Signed 24-Jan-2018 Cardiology Visit Report Result: Comments: See Note; NOTES: [facility] [address] [place] [address]. [address] [place] [address] OFFICE VISIT Date of Service: 01/24/18 MR#: [id number] Acct: [id number] Name: DIANA ESCUDERO OLGA Rep #: [id number] : 1950 Provider: Puneet Alexander MD Age/Sex: 67/F Location: [facility] Status: Signed HPI HPI Chief [...] Intake Visit Reasons: 6 M FU In [facility] Required: No Allergies simvastatin [From Zocor] Adverse [...] mg PO QDAY 01/24/18 [History Confirmed 01/24/18] [facility] Medical History Obstructive sleep apnea (Chronic) History of pulmonary embolism (Chr onic) Atherosclerosis of coronary artery of mentasta heart without angina pectoris (Chronic) Hypertension (Chronic) [...] Plan 1. Atherosclerosis of coronary artery of mentasta heart without angina pectoris I25.10 Non Obs [...] 3 Diagnoses Atherosclerosis of coronary artery of mentasta heart without angina pect ranulfo I25.10 Hyperlipidemia E78.5 Coding Level of Care Code Off vis,est,level 3 Diagnoses Atherosclerosis of coronary artery of mentasta heart without angina pectoris I25.10 Hyperlipidemia E78.5 12/06 1536 <Electronically signed by Puneet Alexander MD> Date [facility]et [facility] MD [facility] Signature: Date (if applicable) CC: Kelly Hannah MD 12-Aug-2017 Foot min 3 Views Result: Comments: See Note; NOTES: [facility] Imaging Services [address] [place] [address] Foot min 3 Views MR#: [id number] Acct: [id number] Name: DIANA ESCUDERO OLGA Rep #: [id number] : 1950 F 67 From: Aaron Salgado MD PCP: Kelly Hannah MD Status: REG CLI Study: Foot min 3 Views Date of Exam: 08/12/17 Exam# [id number] Ordering Dr: Kelly Hannah MD STUDY: X-RAY [...] Salgado MD 08/08/21 at 14:14 EST Tel [phone], Service support , CC: Kelly Hannah MD Director Of Nursing: Signed 05-Aug-2017 TXT - Blood Flow Screening Result: Comments: See Note; NOTES: [facility] Cardiovascular Services [address] [place] [address] 08/05/17 0756 MR#: [id number] Acct: [id number] Name: DIANA ESCUDERO Rep #: [id number] [...] Dictated: 08/05/17 0756 Date T ranscribed: 08/05/172129 Director Of Nursing: Signed 15-Jul-2017 Cardiology Visit Report Result: Comments: See Note; NOTES: [facility] [address] [facility] [address] [place] [address] OFFICE VISIT Date of Service: 07/15/17 MR#: [id number] Acct: [id number] Name: DIANA ESCUDERO OLGA Rep #: [id number] : 1950 Provider: Puneet Alexander MD Age/Sex: 67/F Location: [facility] Status: Signed HPI [...] Hyperlipidemia (Chronic) Atherosclerosis of coronary artery of mentasta heart without angina pectoris (Chronic) Blood glucose [...] [place] [facility] in [place] to facilitate and improve her [...] Result: Comments: See Note; NOTES: [facility] Imaging Services [address] [place] [address] SCREENING MAMM (CAD), BILAT MR#: [id number] Acct: [id number] Name: DIANA ESCUDERO OLGA Rep # : [id number] : 1950 F 67 From: Aaron Salgado MD PCP: Kelly Hannah MD Status: REG CL Study: SCREENING MAMM (CAD), BILAT Date of Exam: 04/19/17 Exam# [id number] Ordering Dr: Kelly Hannah MD MAMMOGRAPHY - [...] delay biopsy of a clinically suspicious abnormality. [id number] Electronically Signed: Aaron Salgado MD at 8:33 EDT Tel [phone], Service support , CC: Kelly Hannah MD Director Of Nursing: Signed 16-Sep-2016 Echocardiogram Complete Result: Comments: See Note; NOTES: [facility] Cardiovascular Services [address] [place] [address] Echo Complete 09/16/16 0956 MR#: [id number] Acct: [id number] Name: DIANA ESCUDERO Rep #: [id number] : 1950 66 From: Emil Craven MD [...] Dictated: 09/16/16 0956 Date Transcribed: 09/16/16 1145 Director Of Nursing: Signed 04-Sep-2016 CTA Chest W/WO Contrast Result: Comments: See Note; NOTES: [facility] Imaging Services [address] [place], [place] [address] [address] Verdana 4d CTA Chest W/WO Contrast MR#: [id number] Acct: [id number] Name: DIANA ESCUDERO Rep #: [id number] : 1950 F 66 From: Aaron Salgado MD PCP: Kelly Hannah MD Status: REG ER Study: CTA Chest W/WO Contrast Date of Exam: 09/04/16 Exam# [id number] Ordering Dr: Leanne Finn STUDY: CTA CHEST [...] Burak Salgado MD at 11:40 EDT Tel [phone], Service support [phone], CC: Leanne Finn MD; Kelyl Hannah MD Director Of Nursing: Signed 23-Jun-2016 Dexa Bone Density Study (HP) Result: Comments: See Note; NOTES: [facility] Imaging Services [address] [place] [address] Verdana 4d Dexa Bone Density Study (HP) MR#: [id number] Acct: [id number] Name: EDUARDO ESCUDERO Rep #: [id number] : 1950 F 66 From: Aaron Salgado MD PCP: Kelly Hannah MD Status: REG CLI Study: Dexa Bone Density Study (HP) Date of Exam: 06/23/16 Exam# [id number] Ordering Dr: Kelly Posey MD STUDY: DUAL [...] Aaron Salgado MD at 16:05 EST Tel [phone], Service support [phone], CC: Kelly Hannah MD Director Of Nursing: Signed 20-Apr-2016 Venous Duplex Lower Extremity Result: Comments: See Note; NOTES: [facility] Cardiovascular Services [address] [place] [address] Venous Duplex US, Unilateral 04/20/16 1428 MR#: [id number] Acct: [id number] Name: DIANA ESCUDERO Rep #: [id number] : 1950 66 From: Marcus Garza MD [...] Date Dictated: 04/20/16 1428 Date Transcribed: 04/20/162149 Director Of Nursing: Signed 23-Mar-2016 Bilat Scrn Digital AND CAD Result: Comments: See Note; NOTES: [facility] Imaging Services [address] [place] [address] Verdana 4d Bilat Scrn Digital AND CAD MR#: [id number] Acct: [id number] Name: ANGELA ESCUDERO OLGA Rep #: [id number] : 1950 F 66 From: Aaron Salgado MD PCP: Kelly Hannah MD Status: REG CLI Study: Bilat Scrn Digital AND CAD Date of Exam: 03/23/16 Exam# [id number] Ordering Dr: Kelly Resendiz i, MD MAMMOGRAPHY [...] delay biopsy of a clinically suspicious abnormality. [id number] Electronically Signed: Aaron Salgado MD at 7:51 EDT Tel [phone], Service support [phone], CC: Kelly Hannah MD Director Of Nursing: Signed 02-Jan-2016 Venous Duplex Lower Extremity Result: Comments: See Note; NOTES: [facility] Cardiovascular Services [address] [place] [address] Venous Duplex US - Johnny Extrem 01/02/16 1454 MR#: [id number] Acct: [id number] Name: DIANA ESCUDERO Rep #: [id number] : 1950 65 From: Marcus Garza MD [...] Date Dictated: 01/02/16 1454 Date Transcribed: 01/02/161653 Director Of Nursing: Signed 12-Dec-2015 12 Lead Electrocardiogram Result: Comments: See Note; NOTES: [facility] Cardiovascular Services [address] [facility] [place] [address] 12 Lead EKG 12/03/151124 MR#: [id number] Acct: [id number] Name: DIANA DOWLING OLGA Rep #: [id number] : 1950 65 From: Puneet Alexander MD [...] normal ECG Confirmed by PUNEET ALEXANDER ([id number]), multimedia editor NA DOWELL (56) on 12/09/2015 10:54:37 AM Referred By: KIRT Confirmed By:PUNEET ALEXANDER 12/09/15 1054 Date ___ Puneet Alexander MD CC: Kelly Hannah MD Date Dictated: 12/03/15 1125 Date Transcribed: 12/03/151124 Director Of Nursing: Signed 03-Dec-2015 Emergency Department Summary Result: Comments: See Note; NOTES: [facility] Medical Records Department [address] [place] [address] Emergency Department Summary MR#: [id number] Acct: [id number] Name: DIANA ESCUDERO Rep #: [id number] : 1950 65 From: Leanne Finn MD [...] PCP. DIAGNOSIS: Pleurisy. Leanne Finn MD T: [facility] JOB: [id number] 12/03/15 1536 <Electronically signed by Leanne Finn MD& #62; Date Leanne Finn MD Cosigner Signature (If Indicated): Date CC: Kelly Hannah MD Da te Dictated: 12/03/151356 Date Transcribed: 12/03/151356 Director Of Nursing: Signed 03-Dec-2015 Discharge Instruction Result: Comments: See Note; NOTES: [facility] Medical Records Department [address] [place], [place] [address] [address] Discharge Instruction 12/03/151353 MR#: [id number] Acct: [id number] Name: DIANA ESCUDERO OLGA Rep #: [id number] : 1950 65 From: Leanne Finn MD [...] problems, contact your doctor. Call [facility] ([phone]) or report to the closest Emergency Room. Call 911 if necessary. 12/03/15 135 &# 60;Electronically signed by Leanne Finn MD> Date Leanne Chakraborty Signature (If Indicated): Date CC: Kelly Hannah MD 03-Dec-2015 CTA Chest W/WO Contrast Result: Comments: See Note; NOTES: [facility] Imaging Services [address] [place] [address] Verdana 4d CTA Chest W/WO Contrast MR#: [id number] Acct: [id number] Name: DIANA MENESES Rep #: [id number] : 1950 F 65 From: Aaron Salgado MD PCP: Kelly Hannah MD Status: REG ER Study: CTA Chest W/WO Contrast Date of Exam: 12/03/15 Exam# [id number] Ordering D r: Leanne Finn MD STUDY: [...] Aaron Salgado MD at 13:37 EDT Tel [phone], Service support [phone], CC: Leanne Finn MD; Kelly Hannah MD Director Of Nursing: Signed 24-Jul-2015 Sleep Study Report Result: Comments: See Note; NOTES: [facility] SLEEP DISORDER CENTER [address] [place] [address] Split Night Sleep Study MR#: [id number] Acct: [id number] Name: Miguel Angel ESCUDERO Rep #: [id number] : 1950 65 From: Jimmy Coates MD [...] version). Please note that a reference to [facility] AHI in this report is consistent with the current Hypopnea definition according to Medicare Criteria and an [facility] AHI reference is consistent wit h the current Hypopnea definition according to the AASM criteria and is recognized by [facility] as the RDI. PROCEDURE: The study was attended continuously by a supervisor sound technician. Monitored parameters inclu ded left and [...] calculated body mass index of 35 and Martin Sleepiness Scale score of 6/20. The patient [...] and heated humidity. SLEEP STUDY DATA: [facility] split night study began at 1114:07 [...] MAmber. Jimmy Coates MD T: [facility] JOB: [id number] CC: Jimmy Coates MD DD: 08/06 1043 1043 07/24/15 2205 <Electronically signed by Jimmy Coates MD> Date Jimmy Coates MD Co-signature (if appli cable) Date Signed 12-Feb-2015 Chest 1 View (Portable) Result: Comments: See Note; NOTES: [facility] Imaging Services [address] [place] [address] Radiology Report MR#: [id number] Acct: [id number] Name: DIANA ESCUDERO Rep #: [id number] : 1950 F 65 From: Aaron Salgado MD PCP: Kelly Hannah MD Status: PRE ER Study: Chest 1 View (Portable) Date of Exam: 02/12/15 Exam# [id number] Ordering Dr: Kenroy Arciniega MD S SABRINADY: [...] Aaron Salgado MD at 11:08 EDT Tel [phone], Service support [phone], RAD/Chest 1 View (Portable) IMPRESSION: No acut e abnormality is seen. Electronically Signed: Aaron Salgado MD at 11:08 EDT Tel [phone], Service support [phone], CC: Kelly Hannah MD; Kenroy Arciniega MD Director Of Nursing: Signed 12-Feb-2015 CTA Chest W/WO Contrast Result: Comments: See Note; NOTES: [facility] Imaging Services [address] [place] [address] CAT Scan Report MR#: [id number] Acct: [id number] Name: DIANA ESCUDERO Rep #: [id number] : 1950 F 65 From: Aaron Salgado MD PCP: Kelly Hannah MD Status: REG ER Study: CTA Chest W/WO Contrast Date of Exam: 02/12/15 Exam# [id number] Ordering Dr: Kenroy Arciniega MD UDY: CTA [...] Aaron Salgado MD at 12:08 EDT Tel [phone], Service support [phone], CC: Kelly Hannah MD; Kenroy Arciniega MD Director Of Nursing: Signed 11-Jan-2015 Bilat Scrn Digital AND CAD Result: Comments: See Note; NOTES: [facility] Imaging Services [address] [place] [address] Breast Imaging Report MR#: [id number] Acct: [id number] Name: DIANA ESCUDERO Rep #: [id number] : 1950 F 64 From: Shaan Nunez DO PCP: Kelly Hannah MD Status: REG CLI Study: Bilat Scrn Digital AND CAD Date of Exam: 01/11/15 Exam# [id number] Ordering Dr: Kelly Hannah MD MAMMOGRAPHY - [...] facility within 30 days. According to [employer], yearly mammograms are recommended starting [...] Signed: Shaan NunezDO at 10:22 EDT Tel [phone], Service support [phone], CC: Kelly Hannah MD Director Of Nursing: Signed 23-Jul-2014 CTA Chest W/WO Contrast Result: Comments: See Note; NOTES: [facility] Imaging Services [address] [place] [address] CAT Scan Report MR#: [id number] Acct: [id number] Name: DIANA ESCUDERO Rep #: [id number] : 1950 F 64 From: Aaron Salgado MD PCP: Kelly Hannah MD Status: REG CLI Study: CTA Chest W/WO Contrast Date of Exam: 07/23/14 Exam# [id number] Ordering Dr: Kelly Hannah MD S TUDY: [...] Aaron Salgado MD at 12:47 EST Tel [phone], Service support [phone], CC: Kelly Hannah MD Director Of Nursing: Signed 04-Jan-2014 Consultation Result: Comments: See Note; NOTES: [facility] Medical Records Department [address] [place] [address] Consultation 01/04/14 1218 MR#: [id number] Acct: [id number] Name: DIANA ESCUDERO Rep #: [id number] : 1950 63 From: Juancho Foy MD PCP: Kelly Hannah MD Status: REG [facility] Location: [place] [address] Problem List (1) Bradycardia Status: Acute (2) [...] showed sinus bradycardia, normal QRS duration, normal DC interval, normal QT interval, no ischemic hardy [...] PO Q4H PRN PRN #30 tablet 01/04/14 [[place] 5/325] Surgical History: appendectomy, cholecystectomy, - - Hysterectomy Psychiatric History: No pertinent psych hx 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 Lives: Spouse/ Significant Other Smoking [...] Result: Comments: See Note; NOTES: [facility] Medical Records Department [address] [place] [address] Instructions for Home/Discharge Instructions 01/04/14 0731 MR#: [id number] Acc t: [id number] Name: DIANA ESCUDERO Rep #: [id number] : 1950 63 From: Anatoly Diego MD [...] PRN PRN #60 capsule Hydrocodone Bitart/Apap 5-325 [[place] 5/325] 1 tablet PO Q4H PRN PRN #30 tablet Please Follow Up With: Anatoly Diego When: 2-3 weeks Proposed Discharge Date: 01/05/14 01/04/14 0735 <Electronically signed by Anatoly Diego MD> Date Anatoly Diego MD CC: Kelly Hannah MD 10-Oct-2013 EKG (29211) Comments: see scanned document of test done to see results reviewed today with patient Result: [MEASUREMENTS ANALYSIS] Date of Test: 10/10/2013 08:20:27; Heart Rate: 64; DC Interval: 160; QRS: 90; QT Interval: 394; Corrected QT Interval (QTc): 401; P Wave [place]: 50; QRS Wave [place]: 5; T Wave [place]: 14; Blood Pressure: 122/78 [ECG DIAGNOSTIC STATEMENTS] [...] Active Current Work/Study Status Comments: 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 Status: Active Living Situation: Lives with domestic partner. Comments: , Hoahaoism Status: Active No Caffeine Use Status: Active [...] kg/m2 Body Surface Area Calculated 2.13 m2 1-Obp-102994:23 Temperature 98.2 f Pulse 70 /min Comments: [...] kg/m2 Body Surface Area Calculated 2.13 m2 4-Sep-19663:17 Pulse 72 /min Comments: Pattern: Regular BP [...] NMR Comments: PATIENT WAS FASTINGPERFORMED BY: [facility] [address] [id number] ([id number]) LP-IR Score 81 (Abnormal) Comments: INSULIN RESISTANCE MARKER <--Insulin Sensitive Insulin Resistant--> Percentile in Reference PopulationInsulin Resistance ScoreLP-IR Score Low 25th 50th 75th High <27 27 45 63 >63LP-IR Score is inaccurate if patient is non-fasting. .The LP-IR score is a laboratory developed i [facility] that has beenassociated with insulin resistance [...] were developed and their performance characteristicsdetermined by [facility]. These assays have not been cleared by [...] 1600 - 2000 Very High > 2000 65-Tmu-566611:35 Basic Metabolic Profile (BMP) Comments: [facility] [address] [place], [place], [id number] GAP 10 (Normal) Range: 5-15 CO2 30.0 [...] A.D.A. criteria.Please note revised GLUCOSE reference range beqladkpp14/02/2018. 62-Ztl-087624:35 CBC W/Diff, Automated Comments: [facility] [address] [facility] [place], [place], [address] Absolute Lymph 2.44 {X10_3/ul} (Normal) Range: 0.83-4.51 [...] 4.2-5.4 WBC 7.3 K/mm3 (Normal) Range: 4.4-11.0 42-Dnq-249180:35 Troponin-I Comments: [facility] [address] [place], [address] TROPONIN-I < 0.015 ng/mL (Normal) Comments: TROPONIN-I EXPECTED VALUES <0.045 Negative 0.045 - 0.590 Consistent with Cardiac Damage > OR = 0.600 Critical Value Not every elevated troponin is indicative of IL. T hesevalues should be used with clinical judgement in examiningthe patient's clinical picture for diagnosis. To establisha diagnosis of IL versus myocardial injury, there must be ademonstrated rise and/ or fall in the troponin values, inaddition to ischemic symptoms, EKG changes, new regionalwall motion abnormality, and/or angiographical evidence. PLEASE NOTE: REFERENCE RANGES EDITED 11/01/1723-Sep-20178:28 Pathology Report Comments: PERFORMED BY: [facility] Svai9681 [facility] [id number] BY: [facility] Dermatopathology Kfwluef585 [facility] [address] [place] [address] [id number] Information: [id number] See MATER Comments: Material submitted: .RIGHT HAND BIOPSYClinical history: .BLACK SPOT ON HAND Note (Normal) Diagnosis:BLUE NEVUS.TMZ/09/28/2017Electronically signed: .Mya Fay MD, DermatopathologistGross description: .RECEIVED IN FORMALIN LABELED DIANA ESCUDERO AND PALOMO HAND IS A PUGH SKIN PUNCH BIOPSY MEASURING 3.0 MM IN ANDREW METERAND 2.0 MM THICK WITH A OLIVAS, RAISED AREA 2.5 X 1.5 MM. SUBMITTEDIN TOTO.FUN/TMZPathologist provided ICD-10:D22.61CPT .093147 05-Ohn-79348:47 Platelet Count on Comments: PATIENT WAS FASTINGPERFORMED BY: [employer] [facility] [id number] [place] [address] [id number] BY: CB [facility] Svwqgl2712 [facility] [id number] Citrated Bld Plt Count, Citrated Bld 160 {X10E3/uL} (Normal) Range: 150-379 91-Bgs-04001:47 LIPOPROTEIN, BLD, BY NMR Comments: PATIENT WAS FASTINGPERFORMED BY: [employer] [facility] [id number] [facility] [id number] BY: [facility] Ukgmsy8028 [facility] [id number] Information: PLATELET ON CITRATE BLD 166717 (35518) LP-IR Score 85 (Abnormal) Comments: INSULIN RESISTANCE [...] 1600 - 2000 Very High > 2000 48-Lsb-94173:43 Albumin/Creatinine Ratio,Urine Comments: PATIENT NOT FASTINGPERFORMED BY: [facility]6370 [facility] [id number] Alb/Creat Ratio <1.4 {mg/g_creat} (Normal) Range: 0.0-30.0 Albumin, Urine <3.0 ug/mL (Normal) Creatinine, Urine 212.4 mg/dL (Normal) :43 CBC With Differential/Platelet Comments: PATIENT NOT FASTINGPERFORMED BY: [facility]6370 [facility] [id number] Immature Grans (Abs) 0.0 {x10E3/uL} (Normal) Range: [...] Panel (14) Comments: PATIENT NOT FASTINGPERFORMED BY: [facility]bysSaint [facility] Hospital at SussexPsaqij4639 [facility] [id number] ALT (SGPT) 18 [iU]/L (Normal) Range: 0-32 [...] Glucose, Serum 100 mg/dL (Abnormal) Range: 65-99 34-Dxd-65197:43 Urinalysis, Routine Comments: PATIENT NOT FASTINGPERFORMED BY: BarnebysSaint [facility]'s Hospital at SussexPxxafy6931 [facility] [id number] Microscopic Examination MICNIP (Normal) Comments: Microscopic not indicated and not performed. Nitrite, Urine Negative (Normal) Urobilinogen,Semi-Qn 0.2 mg/dL (Normal) Range: 0.2-1.0 Bilirubin Negative (Normal) Occult Blood Negative (Normal) Ketones Negative (Normal) Glucose Negative (Normal) Protein Negative (Normal) WBC Esterase Negative (Normal) Appearance Clear (Normal) Urine-Color Yellow (Normal) pH 6.0 (Normal) Range: 5.0-7.5 Specific [place] 1.025 (Normal) Range: 1.005-1.030 02-Ekb-571389:21 FLU A+B DIRECT AG, (RAPID) (85580) FLU A+B DIRECT AG, (RAPID) negative (Normal) :32 Potassium Serum (44936) Comments: PATIENT NOT FASTINGPERFORMED BY: [employer] [id number] BY: [address] [id number] Potassium, Serum 3.9 mmol/L (Normal) Range: 3.5-5.2 :32 Magnesium (87641) Comments: PATIENT NOT FASTINGPERFORMED BY: [employer] [id number] BY: [address] [id number] Magnesium, Serum 2.0 mg/dL (Normal) Range: 1.6-2.3 :32 CCP ANTIBODY (83910) Comments: PATIENT NOT FASTINGPERFORMED BY: [employer] [id number] BY: [address] [id number] CCP Antibodies IgG/IgA 10 {units} (Normal) Range: 0-19 Comments: Negative <20 Weak positive 20 - 39 Moderate positive 40 - 59 Strong positive >59 :32 TSH (75699) Comments: PATIENT NOT FASTINGPERFORMED BY: [employer] [id number] BY: [address] [id number] TSH 3.380 {uIU/mL} (Normal) Range: 0.450-4.500 :32 SED RATE ERYTHROCYTE Comments: PATIENT NOT FASTINGPERFORMED BY: [place] 3532770 [facility] [id number] BY: [address] [id number] (83784) Sedimentation Rate-Westergren 14 mm/h (Normal) Range: 0-40 :32 C-REACTIVE PROTEIN (75028) Comments: PATIENT NOT FASTINGPERFORMED BY: [facility]6370 [facility] [id number] BY: [address] [id number] C-Reactive Protein, Quant 3.5 mg/L (Normal) Range: 0.0-4.9 :32 JESUS ALBERTO (ANTINUCLEAR ANTIBODY) Comments: PATIENT NOT FASTINGPERFORMED BY: [facility]De[facility]6370 [facility] [id number] BY: [address] [id number]; fu 3-30 (25713) JESUS ALBERTO Direct Negative (Normal) 04-Vsg-190291:37 Basic Metabolic Profile (BMP) Comments: 'TROP' Serial specimen #1, #2, #3, or #4: 1[facility] Jixmeiyzuk[address] [place], [address] GAP 8 (Normal) Range: 5-15 CO2 29.0 [...] <126 mg/dLsuggests IMPAIRED HOMEOSTASIS per A.D.A. criteria. 59-Spi-729548:37 CBC W/Diff, Automated Comments: [facility] Orgovqxw[address] [place], [address] Absolute Lymph 1.93 {X10_3/ul} (Normal) Range: 0.83-4.51 [...] 4.2-5.4 WBC 5.9 K/mm3 (Normal) Range: 4.4-11.0 87-Jgb-285207:37 Troponin-I Comments: 'TROP' Serial specimen #1, #2, #3, or #4: 1[facility] [address]kvuhzz[address] [place], [address] TROPONIN-I < 0.02 ng/mL (Normal) Comments: TROPONIN-I EXPECTED VALUES <0.05 NEGATIVE 0.06 - 0.59 AT RISK OF [place] > OR = 0.60 SUGGEST [place] 80-Luo-484237:16 HEPATITIS C ANTIBODY (38961) Comments: CLient bill for this; PATIENT NOT FASTINGPERFORMED BY: LabCoSaint Clare's Hospital at SussexXcicke8741 [facility] [id number] Hep C Virus Ab <0.1 {s/co_ratio} (Normal) Range: 0.0-0.9 Comments: Negative: < 0.8 Indeterminate: 0.8 - 0.9 Positive: > 0.9 . The CDC recommends that a positive HCV antibody result be followed up with a HCV Nucleic Acid Amplification test (173235). 58-Ayf-863946:32 CBC W/Diff, Automated Comments: [facility] [address]qexkldkiv[address] [place], [address] Absolute Lymph 2.31 {X10_3/ul} (Normal) [...] 1'CKMB' Serial Specimen #1, #2 or #3? 1[facility] [address]av[address] [place], [place], [address] GAP 7 (Normal) Range: 5-15 CO2 28.0 [...] 1'CKMB' Serial Specimen #1, #2 or #3? [address] [place] [address] Fmhvugodhh0946 [facility] [place], [address] CKRI 1.1 % (Normal) Range: 0.0-1.4 Comments: RELATIVE INDEX >1.5% IS PRESUMPTIVELY POSITIVE CPKMB 1.7 ng/mL (Normal) Range: 0.0-5.0 Comments: CK-MB and RI Interpretation MB Relative Index Non-AMI <or= 5 NA Indeterminate > 5 <or= 4 AMI > 5 > 4 CPK TOTAL 158 U/L (Normal) Range: 26-192 Comments: Moderate Hemolysis, Result may be falsely increased. 56-Bct-059571:08 Troponin-I Comments: Serial Specimen #1, #2 or #3? 1'TROP' Serial specimen #1, #2, #3, or #4: 1'CKMB' Serial Specimen #1, #2 or #3? [address] [place] [address] Wk[address]urbqjd8138 [place], [place], [address] TROPONIN-I < 0.02 ng/mL (Normal) Comments: TROPONIN-I EXPECTED VALUES <0.05 NEGATIVE 0.06 - 0.59 AT RISK OF IL > OR = 0.60 SUGGEST [place] :30 CBC (Auto) (59272) Comments: PATIENT WAS FASTINGPERFORMED BY: LabCoSaint Clare's Hospital at SussexIyujtt6258 [facility] [id number] Platelets 165 {x10E3/uL} (Normal) Range: 150-379 RDW 13.8 % (Normal) Range: 12.3-15.4 MCHC 33.1 g/dL (Normal) Range: 31.5-35.7 MCH 31.2 pg (Normal) Range: 26.6-33.0 MCV 94 fL (Normal) Range: 79-97 Hematocrit 43.2 % (Normal) Range: 34.0-46.6 Hemoglobin 14.3 g/dL (Normal) Range: 11.1-15.9 RBC 4.59 {x10E6/uL} (Normal) Range: 3.77-5.28 WBC 6.6 {x10E3/uL} (Normal) Range: 3.4-10.8 :30 Metabolic Panel, Comments: PATIENT WAS FASTINGPERFORMED BY: BarnebysSaint Clare's Hospital at SussexWorcal6160 [facility] [id number] Information: [id number] Comprehensive (10049) ALT (SGPT) 14 [iU]/L (Normal) Range: 0-32 [...] mg/dL (Normal) Range: 65-99 :30 Lipid Panel (57494) Comments: PATIENT WAS FASTINGPERFORMED BY: [facility]SyncDe[facility]erville [facility] Hospital6370 [facility] [id number] LDL/HDL Ratio 3.6 {ratio_units} (Abnormal) Range: 0.0-3.2 [...] Cholesterol, Total 218 mg/dL (Abnormal) Range: 100-199 58-Ckb-78533:30 Hemoglobin Glyclated (HGB A1C) Comments: PATIENT WAS FASTINGPERFORMED BY: [employer]70 [facility] [id number]; apt. 4-4 (67364) Hemoglobin A1c 5.8 % (Abnormal) Range: 4.8-5.6 Comments: . Pre-diabetes: 5.7 - 6.4 Diabetes: >6.4 Glycemic control for adults with diabetes: <7.0 48-Ecf-563657:59 Urinalysis, Office (99765) UA - LEUKOCYTE ESTERASE Negative (Normal) UA - NITRITE Positive (Normal) URINE UROBILINGN FRANKO TIMED 2 mg/dL (Normal) UA - PROTEIN Negative mg/dL (Normal) UA - PH 5 (Abnormal) UA - BLOOD Negative (Normal) UA - SPECIFIC GRAVITY 1.020 (Normal) UA - KETONES Negative mg/dL (Normal) UA - BILIRUBIN Negative (Normal) UA - GLUCOSE Negative (Normal) 71-Qda-22559:00 Anticardiolip Ab, IgA/G/M, Comments: PATIENT WAS FASTINGPERFORMED BY: [employer] Blxmzs2020 [facility] [id number] BY: [employer] LCD6177 [address] [facility] [id number] Qn Anticardiolipin Ab,IgA,Qn <9 {APL_U/mL} (Normal) Range: [...] Positive: >20 - 80 High Positive: >80 31-Eid-014018:37 Basic Metabolic Profile (BMP) Comments: Serial Specimen #1, #2 or #3? 1'TROP' Serial specimen #1, #2, #3, or #4: 1Test performed at:[facility] [address] [place] [address] GAP 7 (Normal) Range: 5-15 [...] 126 mg/dLsuggests DIABETES MELLITUS per A.D.A. criteria. 69-Sju-491436:37 CBC W/Diff, Automated Comments: Test performed at:[facility] Pquqigblxu6164 [facility] [place] [address] Absolute Lymph 2.35 {X10_3/ul} (Normal) [...] 4.2-5.4 WBC 7.4 K/mm3 (Normal) Range: 4.4-11.0 29-Lsi-590956:37 CK-MB Quantitative and Index Comments: Serial Specimen #1, #2 or #3? 1'TROP' Serial specimen #1, #2, #3, or #4: 1Test performed at:[facility] Puplwab[address] [place] [address] CPKMB 0.8 ng/mL (Normal) Range: 0.0-5.0 Comments: CK-MB and RI Interpretation MB Relative Index Non-AMI <or= 5 NA Indeterminate > 5 <or= 4 AMI > 5 > 4 CPK TOTAL 80 U/L (Normal) Range: 26-192 08-Ele-233069:37 Troponin-I Comments: Serial Specimen #1, #2 or #3? 1'TROP' Serial specimen #1, #2, #3, or #4: 1Test performed at:[facility] [address]fgjpppl[address] [place] [address] TROPONIN-I < 0.02 ng/mL (Normal) Comments: TROPONIN-I EXPECTED VALUES <0.05 NEGATIVE 0.06 - 0.59 AT RISK OF [place] > OR = 0.60 SUGGEST IL 11-Tun-790958:59 D-Dimer (57914) Comments: PATIENT NOT FASTINGPERFORMED BY: [employer] [id number] BY: [employer] Gktwno4015 [facility] [id number] D-Dimer 0.59 {mg/L_FEU} (Abnormal) Range: 0.00-0.49 Comments: In conjunction with a non-high clinical probability assessment, anormal (<0.50 mg/L FEU) result excludes deep vein thrombosis (DVT)and pulmonary embolism (PE) with high sensitivity. 19-Yee-96613:00 LIPID PANEL (62875) Comments: PATIENT WAS FASTINGPERFORMED BY: [facility] [employer] Nylihr1074 [facility] [id number] BY: [employer] FRI4561 [facility] [id number] LDL/HDL Ratio 3.1 {ratio_units} (Normal) Range: 0.0-3.2 [...] Cholesterol, Total 177 mg/dL (Normal) Range: 100-199 71-Xoc-424450:59 Protein S Profile Comments: PATIENT NOT FASTINGPERFORMED BY: [employer] [id number] BY: BarnebysSaint Clare's Hospital at SussexVoxadz5047 [facility] [id number] Inf ormation: [id number] (94943) Protein S-Functional 119 % (Normal) Range: 60-145 Protein S, Free 108 % (Normal) Range: 56-124 Protein S, Total 137 % (Normal) Range: 58-150 07-Zto-242956:59 Protein C Profile Comments: PATIENT NOT FASTINGPERFORMED BY: [employer] [id number] BY: BarnebysBr[place] 7705870 [facility] [id number] (74932) Protein C-Functional 120 % (Normal) Range: 74-151 Protein C Antigen 104 % (Normal) Range: 70-140 78-Cvf-60555:00 Homocysteine, Plasma Comments: PATIENT WAS FASTINGPERFORMED BY: BarnebysBrandy [place] 7705870 [facility] [id number] BY: [facility] CUK5568 [facility] [id number] (81339) Homocyst(e)ine, Plasma 11.2 umol/L (Normal) Range: 0.0-15.0 23-Zkw-464166:59 ANTITHROMBIN III ACTIVTY Comments: PATIENT NOT FASTINGPERFORMED BY: [employer] [id number] BY: BarnebysSaint Clare's Hospital at SussexFoskwc2488 [facility] [id number] (29616) Antithrombin Antigen 94 % (Normal) Range: 75-130 Antithrombin Activity 108 % (Normal) Range: 75-135 97-Bea-820444:59 CLOTTING FACTOR II Comments: PATIENT NOT FASTINGPERFORMED BY: [employer] [id number] BY: BarnebysSaint Clare's Hospital at SussexRnicyw2665 [facility] [id number] (57508) Factor II Activity 113 % (Normal) Range: 75-130 87-Sxh-65861:00 Factor V Leiden (55325) Comments: PATIENT WAS FASTINGPERFORMED BY: [facility] Gpikfx0883 [facility] [id number] BY: [facility] VQU0487 [address] [facility] [id number] Factor V Leiden FVNEG3 (Normal) Comments: Result: [...] in the workup for venous thrombosis include [id number] mutation in the factor II (prothrombin) gene,protein S and C deficiency, and antithromb in deficiencies.Anticardiolipin antibody and lupus anticoagulant analysismay be appropriate for certain patients, as well ashomocysteine levels. .Contact your local [facility] for information on how to orderadditional testing if desired. .Genetic counselors are available for health care* providers to discuss results at [phone] ([phone]). .Methodology:DNA analysis of the Factor V gene [...] Orta, PhDMichael Singh, PhDNgozi Cardozo, PhD . 52-Jgx-05271:00 MTHFR (91553) Comments: PATIENT WAS FASTINGPERFORMED BY: [facility] Ddejtq1012 [facility] [id number] BY: [facility] XEA3411 [place] [id number] MTHFR, DNA Analysis GW6643 (Normal) Comments: Result: C677T/A1476PRfo mutations (C677T and X8687P) identified .Interpretation: .This individual is heterzygous for both the MTHFR C677T and B5280Fgypwviyk (one copy of each). Compound heterozygosity for the M703Wvju A7800E variants is unlikely to be of clinical [...] discuss these results with healthcare providers at [phone]. .Methylenetetrahydrofolate reductase (MTHFR) is a ke y enzyme in thefolate pathway and is responsible for the metabolism of homocysteine.There are two common variants in the MTHFR gene, c.655C>T(p.Gzq413Iyp), referred to as C677T, and c.1286A>C (p.G cj531Qek),referred to as Y9653O. Individuals homozygous for C677T (two copiesof the variant), have decreased activity of the MTHFR enzyme and apredisposition to hyperhomocysteinemia, particularly when d eficient infolate. Hyperhomocysteinemia is a risk factor for venous thrombosisand coronary artery disease and is associated with an increased riskof open neural tube defects. The C677T variant reilly s notindependently increase risk of these conditions in the absence ofhyperhomocysteinemia. The Z6395B variant is not associated withelevated homocysteine levels unless a C677T variant is also present;h owever, the clinical significance of heterozygosity for both Q545Ctev A7057K is controversial. Population data suggest that these twovariants are not present on the same chromosome, but rare exceptionsh ave been reported of triple variant MTHFR genotypes (ie. homozygousfor one variant and heterozygous for the other). Homozygosity pwpT796T has an estimated frequency of 10% to [...] Augustine. Am J Epidemiol 2000; 151(9):862-877.Nilsa MM, Lday JA. Arch Pathol Lab Med 2007; 131(6):872-884.Frosst P et al. Felisa Giana 1995; 10(1):111- 113.Hickey SE et al. Giana Med 2013; 15(2):153-156.Lo ckwood C et al. Obstet Gynecol 2011; 118(3):730-740.Jakob B et al. Eur J Epidemiol 2013; 28(8):621-647. .Dora Carrera, PhDSteffen Wilson, PhDMookie Tijerina MS, PhDTara Jhaveri, PhDNgozi Cardozo, PhD :52 HgA1C , Office (35604) HgA1C , Office 5.8 % (Normal) Range: 4.6 - 7.1 :31 CBC With Differential/Platelet Comments: PATIENT WAS FASTINGPERFORMED BY: [facility] Rmjxaq8731 [facility] [id number] Information: [id number] Immature Grans (Abs) 0.0 {x10E3/uL} (Normal) Range: [...] 3.77-5.28 WBC 5.3 {x10E3/uL} (Normal) Range: 3.4-10.8 18-Mcr-01621:31 Comp. Metabolic Panel (14) Comments: PATIENT WAS FASTINGPERFORMED BY: LabCoSaint Clare's Hospital at SussexHlgvit1620 [facility] [id number] ALT (SGPT) 18 [iU]/L (Normal) Range: 0-32 [...] Glucose, Serum 103 mg/dL (Abnormal) Range: 65-99 30-Wwn-840158:04 Urinalysis, Office (09841) UA - PH 6.0 (Normal) UA - LEUKOCYTE ESTERASE Negative (Normal) UA - NITRITE Negative (Normal) URINE UROBILINGN FRANKO TIMED 2 mg/dL (Normal) UA - PROTEIN Negative mg/dL (Normal) UA - BLOOD Negative (Normal) UA - SPECIFIC GRAVITY 1.025 (Normal) UA - KETONES Negative mg/dL (Normal) UA - BILIRUBIN Negative (Normal) UA - GLUCOSE Negative (Normal) 80-Bee-36191:51 POTASSIUM SERUM (76162) Comments: today; PATIENT NOT FASTINGPERFORMED BY: LabCoSaint Clare's Hospital at SussexBtmphb6710 [facility] [id number] Information: [id number] Potassium, Serum 3.8 mmol/L (Normal) Range: 3.5-5.2 9-Ald-245235:30 Basic Metabolic Profile (BMP) Comments: 'TROP' Serial specimen #1, #2, #3, or #4: 1'CKMB' Serial Specimen #1, #2 or #3? 1Test performed at:[facility] Lnaxnfhdac[address] [place], [place] [address] GAP 3 (Abnormal) Range: 5-15 CO2 34.0 [...] 7-18 GLU 89 mg/dL (Normal) Range: 70-110 6-Wvt-455531:30 CBC W/Diff, Automated Comments: Test performed at:[facility] Zthvijdexm[address] [place] [address] Absolute Lymph 2.01 {X10_3/ul} (Normal) Range: 0.83-4.51 [...] Specimen #1, #2 or #3? 1Test performed at:[facility] Offngyrwim1383 [facility] [place] [address] CPKMB 0.8 ng/mL (Normal) Range: 0.0-5.0 Comments: CK-MB and RI Interpretation MB Relative Index Non-AMI <or= 5 NA Indeterminate > 5 <or= 4 AMI > 5 > 4 CPK TOTAL 64 U/L (Normal) Range: 26-192 5-Fek-482683:30 D-Dimer Quantitative (DVT/PE) Comments: Test performed at:[facility] Azlsgdfdcs1024 [facility] [place] [address] D-DIMER QUANT 1.86 {FEU/ug/m} (Abnormal) Range: 0.27-0.49 Comments: D-Dimer ELEVATED (>0.49): Additional studies and clinicalassessments are indicated to conclude diagnosis of:Deep Vein Thrombosis (DVT) or Pulmonary Embolism (PE)CRITICAL VALUE REPEATED AND VERIFIED. CALLED TO SHRAVAN.RN07/23/14 1104 Ricci Delgado.RESULTS READ BACK BY SAME. 0-Fga-370788:30 Troponin-I Comments: 'TROP' Serial specimen #1, #2, #3, or #4: 1'CKMB' Serial Specimen #1, #2 or #3? 1Test performed at:[facility] Bojuxtgtmi9587 [facility] [place] [address] TROPONIN-I < 0.02 ng/mL (Normal) Comments: TROPONIN-I EXPECTED VALUES <0.05 NEGATIVE 0.06 - 0.59 AT RISK OF IL > OR = 0.60 SUGGEST IL :18 HgA1C , Office (08471) HgA1C , Office 5.7 % (Normal) Range: 4.6 - 7.1 :18 Blood Glucose , Office (86507) Blood Glucose , Office 106 (Normal) :20 [...] Yellow (Normal) :54 Blood Glucose , Office (31487) Blood Glucose , Office 123 (Normal) Comments: Not Fasting :54 HgA1C , Office (24789) HgA1C , Office 6.0 % (Normal) Range: 4.6 - 7.1 :31 POTASSIUM SERUM (63033) Comments: patient having drawn in 2 wks; PATIENT NOT FASTINGPERFORMED BY: BarnebysSaint Clare's Hospital at SussexVbbacf9527 [facility] [id number] Information: [id number] Potassium, Serum 4.0 mmol/L (Normal) Range: 3.5-5.2 :20 Microscopic Examination Comments: PATIENT WAS FASTINGPERFORMED BY: BarnebysSaint Clare's Hospital at SussexEgipnd1307 [facility] [id number] Bacteria Few (Normal) Mucus Threads Present (Normal) [...] A POSITIVE (Normal) :20 URINALYSIS, W/ MICRO (97234) Comments: PATIENT WAS FASTINGPERFORMED BY: [facility]SyncDe[facility]erville [facility] Hospital6370 [facility] [id number] Microscopic Examination See below: (Normal) Comments: Microscopic was indicated and was performed. Nitrite, Urine Negative (Normal) Urobilinogen,Semi-Qn 1.0 mg/dL (Normal) Range: 0.0-1.9 Bilirubin Negative (Normal) Occult Blood Negative (Normal) Ketones Negative (Normal) Glucose Negative (Normal) Protein Trace (Normal) WBC Esterase 2+ (Abnormal) Appearance Clear (Normal) Urine-Color Yellow (Normal) pH 6.5 (Normal) Range: 5.0-7.5 Specific [place] 1.023 (Normal) Range: 1.005-1.030 :20 METABOLIC PANEL, COMPREHENSIVE Comments: PATIENT WAS FASTINGPERFORMED BY: BarnebysSaint Clare's Hospital at SussexKvnvey6770 [facility] [id number] (14033) ALT (SGPT) 20 [iU]/L (Normal) Range: 0-32 [...] mg/dL (Abnormal) Range: 65-99 :20 LIPID PANEL (66536) Comments: PATIENT WAS FASTINGPERFORMED BY: BarnebysSaint Clare's Hospital at SussexFkfwis1270 [facility] [id number] LDL/HDL Ratio 3.8 {ratio_units} (Abnormal) Range: 0.0-3.2 [...] MANUAL DIFF Comments: PATIENT WAS FASTINGPERFORMED BY: BarnebysSaint Clare's Hospital at SussexEfuoca8073 [facility] [id number] Information: [id number] (49762) Immature Grans (Abs) 0.0 {x10E3/uL} (Normal) Range: [...] (Normal) Range: 3.4-10.8 :09 HgA1C , Office (24875) HgA1C , Office 5.8 % (Normal) Range: 4.6 - 7.1 :09 Blood Glucose , Office (87536) Blood Glucose , Office 129 (Normal) Comments: [...] (Normal) Range: 70-110 :17 HgA1C , Office (70160) HgA1C , Office 5.9 % (Normal) Range: 4.6 - 7.1 :17 Blood Glucose , Office (54894) Blood Glucose , Office 107 (Normal) :15 [...] be sent to the patient by the [facility] within 30 days. Approximately 10% of breast cancers are not detected by mammography. Anormal mammogram should not delay biopsy of a clinically suspiciousabnormality. Signed:Payton DuttaMarch 15, 2013 at 7:58:55 AM [id number] Signed GP/GP If you are the referring physician and would like to consult with theradiologist who provided this interpretation, please co rodolfoct Unique Yusuf at [phone]. If this radiologist is unavailable, youwill be directed to another radiologist to assist. If you are a patient with a question regarding this report, pleas econtactyour referring physician directly. Professional Interpretation Provided By: [employer], Phone , These documents contain legally protected [...] 03/15/13 0837 Sign by: Aaron Salgado MD 44-Cys-62243:25 Blood Glucose , Office (88513) Blood Glucose , Office 134 (Normal) 01-Tfg-93836:25 HgA1C , Office (48914) HgA1C , Office 5.8 % (Normal) Range: 4.6 - 7.1 3-Eip-446641:22 PELVIC (NON ) Radiology Report See Note [...] Salgado M.D.January 23, 2013 at 2:31:38 PM [id number] Signed GP/GP If you are the referring physician and would like to consult with theradiologist who provided this interpretati on, please contact Unique Yusuf at [phone]. If this radiologist is unavailable, youwill be directed to another radiologist to assist. If you are a patient with a question regarding this report, pleasecontactyour referring physician directly. Professional Interpretation Provided By: [employer], Phone , These documents contain legally protected [...] size of the right kidney. The right nlzuvbctdlgfzl06.4 cm. Ambika l renal cortex. The right [...] M.D.January 23, 2013 at 2:2 8:11 PM [id number] Signed GP/GP If you are the referring physician and would like to consult with theradiologist who provided this interpretation, please contact Payton Yusuf at [phone]. If this radiologist is unavailable, youwill be directed to another radiologist to assist. If you are a patient with a question regarding this report, pleasecontactyour referring phys ician directly. Professional Interpretation Provided By: [employer], Phone , These documents contain legally protected [...] Salgado M.D.January 23, 2013 at 2:31:38 PM [id number] Signed GP/GP If you are the referring physician and would like to consult with theradiologist who provided this interpretati on, please contact Unique Yusuf at [phone]. If this radiologist is unavailable, youwill be directed to another radiologist to assist. If you are a patient with a question regarding this report, pleasecontactyour referring physician directly. Professional Interpretation Provided By: [employer], Phone , These documents contain legally protected [...] 01/24/13 1043 Sign by: Aaron Salgado MD 69-Vrj-110918:11 CBC, Platelets & Auto Comments: PATIENT NOT FASTINGPERFORMED BY: LabCoSaint Clare's Hospital at SussexOmqbri8264 [facility] [id number] Information: [id number] Diff (05153) Immature Grans (Abs) 0.0 {x10E3/uL} (Normal) Range: [...] (Normal) Range: 70-110 :33 HgA1C , Office (62833) HgA1C , Office 5.8 % (Normal) Range: 4.6 - 7.1 :53 METABOLIC PANEL, COMPREHENSIVE Comments: PATIENT WAS FASTINGPERFORMED BY: LabCoSaint Clare's Hospital at SussexUdwdpv0157 [facility] [id number] ([id number]) ALT (SGPT) 19 [iU]/L (Normal) Range: 0-32 [...] DIFF Comments: PATIENT WAS FASTINGPERFORMED BY: JERMAINE JustSpotted [facility] [id number] Information: [id number] (18944) Immature Grans (Abs) 0.0 {x10E3/uL} (Normal) Range: [...] {x10E3/uL} (Normal) Range: 4.0-10.5 :53 LIPID PANEL (27709) Comments: PATIENT WAS FASTINGPERFORMED BY: JERMAINE RoleStarDublin [place] [id number] LDL/HDL Ratio 3.3 {ratio_units} (Abnormal) Range: 0.0-3.2 LDL Cholesterol Calc 136 mg/dL (Abnormal) Range: 0-99 HDL Cholesterol 41 mg/dL (Normal) Comments: According to ATP-III Guidelines, HDL-C >59 mg/dL is considered anegative risk factor for CHD. VLDL Cholesterol José Luis 45 mg/dL (Abnormal) Range: 5-40 Triglycerides 226 mg/dL (Abnormal) Range: 0-149 Cholesterol, Total 222 mg/dL (Abnormal) Range: 100-199 41-Tgk-41966:51 BILAT SCRN DIGITAL & CAD Radiology Report [...] Salgado M.D.January 18, 2012 at 10:04:04 AM [id number] Signed GP/GP If you are the referring physician and would like to consult with theradiologist who pro vided this interpretation, please contact Unique Yusuf at [phone]. If this radiologist is unavailable, youwill be directed to another radiologist to assist. If you are a patient with a q uestion regarding this report, pleasecontactyour referring physician directly. Professional Interpretation Provided By: [employer], Phone , Dictated on 01/18/12 0759 by Damian FLYNN,DavidriClevelandranscribed on 01/18/12 1010 by ITS IMPORTSign by Damian FLYNN,Aaron on 01/18/12 1011 Sign by: Aaron Salgado MD 7-Kla-555358:43 MICROALBUMIN: CREATININE RATIO Comments: PATIENT WAS FASTINGPERFORMED BY: [employer] Eplsiy3758 [facility] [id number] (18442) AND (73673) Microalb/Creat Ratio 1.4 {mg/g_creat} (Normal) Range: 0.0-30.0 Microalbumin, Urine 2.3 ug/mL (Normal) Range: 0.0-17.0 Creatinine, Urine 167.9 mg/dL (Normal) Range: 15.0-278.0 8-Wnl-897690:43 METABOLIC PANEL, COMPREHENSIVE Comments: PATIENT WAS FASTINGPERFORMED BY: Storytree6370 [facility] [id number] (10106) ALT (SGPT) 24 [iU]/L (Normal) Range: 0-40 [...] Glucose, Serum 95 mg/dL (Normal) Range: 65-99 6-Eqk-364776:43 LIPID PANEL (12797) Comments: PATIENT WAS FASTINGPERFORMED BY: PictureMenu [facility] [id number] LDL/HDL Ratio 3.2 {ratio_units} (Normal) Range: 0.0-3.2 [...] MANUAL DIFF Comments: PATIENT WAS FASTINGPERFORMED BY: Storytree6370 [facility] [id number] Information: [id number] (79849) Immature Grans (Abs) 0.0 {x10E3/uL} (Normal) Range: [...] (Normal) Range: 4.0-10.5 :18 HgA1C , Office (40026) HgA1C , Office 6.1 % (Normal) Range: 4.6 - 7.1 05-Bll-035021:18 Blood Glucose , Office (91484) Blood Glucose , Office 125 (Normal) 56-Tnv-049408:00 Thin prep Pap Comments: Source.............Cervical;EndocervicalNo. of containers..01 CYTYC Thin Prep VialPATIENT NOT FASTINGPERFORMED BY: LabCo60 [address] Streetzakiyadepartment of veterans affairs [facility] MANDEEP [id number] Information: [id number] ([id number]) Note: PAPSMR (Normal) Comments: The Pap smear [...] ; Routine gynecolog ical examina Imelda Batres Classification Counselor (ASCP) 60-Vkk-34057:00 THU LEZAMA DIGITAL & CAD Radiology Report [...] 11/04/10619 Sign by: __ Aaron Salgado MD 9-Tmv-177513:24 CBC & PLATELETS (AUTO) Comments: PATIENT NOT FASTINGPERFORMED BY: LabCo Qclmfl1008 [facility] [id number] Information: [id number]; appt 11/28/10 (94810) MCH 31.6 pg (Normal) Range: 27.0-34.0 MCHC [...] 27 45 63 >63Performed at: - [facility] [address] [place], [place] [id number] Director: Stefano Mace PhD, Phone: [phone] HDL SIZE <TEST NOT PERFORMED> (Normal) INSULIN [...] TOT 209 mg/dL (Abnormal) LIPIDS . (Normal) 8-Ylm-713628:12 CULT, DP WOUND Comments: COMMENTS: CULTURE, SENSITIVITY,AREOBES, [...] STRIMETHOPRIM/SULFAMETHOXAZ $ <=10 SVANCOMYCIN $ 1 S 1-Xce-810982:10 CBC Comments: COMMENTS: AC ROOM 6 HCT [...] 1 S :56 Blood Glucose , Office (41473) Blood Glucose , Office 102 (Normal) :56 HgA1C , Office (87730) HgA1C , Office 6.1 % (Normal) Range: 4.6 - 7.1 :49 MICROALBUMIN: CREATININE Comments: PATIENT WAS FASTINGPERFORMED BY: [employer]Eat0 [facility] [id number] BY: Storytree6370 [facility] [id number] RATIO (27768) AND (85337) Microalb/Creat Ratio 2.3 {mg/g_creat} (Normal) Range: 0.0-30.0 Microalbumin, Urine 3.4 ug/mL (Normal) Range: 0.0-17.0 Creatinine, Urine 150.2 mg/dL (Normal) Range: 15.0-278.0 :49 LIPOPROTEIN, BLD, BY NMR Comments: PATIENT WAS FASTINGPERFORMED BY: S7 [employer] [facility] [id number] BY: Evocalize70 MurphyShriners Hospitals for Children [id number] Information: ADD [id number] AND DRAW FEE 99 4140 (08981) LP-IR 83 Comments: The LP-IR Score combines [...] (Abnormal) Choleste 220 mg/dL rol, (Abnormal) Total 56-Pjl-10825:49 METABOLIC PANEL, Comments: PATIENT WAS FASTINGPERFORMED BY: Fede [employer] Wrv4419 [facility] [id number] BY: JERMAINE [facility] Okmefo5784 [facility] [id number] COMPREHENSIVE (47554) ALT (SGPT) 22 [iU]/L (Normal) Range: 0-40 [...] Glucose, Serum 107 mg/dL (Abnormal) Range: 65-99 09-Rhe-07709:49 LIPID PANEL (18650) Comments: PATIENT WAS FASTINGPERFORMED BY: WEALTH at work [facility]edarIND LifetechRegency Hospital CompanyInnohatHahnemann University Hospital [id number] BY: General Electriclin6370 [facility] [id number] LDL Cholesterol Calc 135 mg/dL (Abnormal) Range: 0-99 LDL/HDL Ratio 4.1 {ratio_units} (Abnormal) Range: 0.0-3.2 VLDL Cholesterol José Luis 52 mg/dL (Abnormal) Range: 5-40 HDL Cholesterol 33 mg/dL (Abnormal) Comments: According to ATP-III Guidelines, HDL-C >59 mg/dL is considered anegative risk factor for CHD. Triglycerides 261 mg/dL (Abnormal) Range: 0-149 Cholesterol, Total 220 mg/dL (Abnormal) Range: 100-199 26-Zkm-66780:49 CBC WITH MANUAL DIFF Comments: PATIENT WAS FASTINGPERFORMED BY: WEALTH at work [facility] [id number] BY: Dedicated DevicesSaint Clare's Hospital at SussexNvlppa6075 [facility] [id number] (39017) Baso (Absolute) 0.1 {x10E3/uL} (Normal) Range: 0.0-0.2 [...] 3.80-5.10 WBC 6.7 {x10E3/uL} (Normal) Range: 4.0-10.5 4-Gys-660480:35 MARYJANE CULTURE-OTHER (71750) Comments: PATIENT NOT FASTINGPERFORMED BY: [employer] [facility] [id number] Information: SRC:RAH [id number] Result 1 RRF (Normal) Comments: Routine respiratory bin Upper Respiratory Culture Final report (Normal) :07 Rapid Strep Test, Office (77622) Rapid Strep Test, Negative (Normal) Office :2 Potassium, Serum 3.8 mmol/L (Normal) Comments: PATIENT WAS FASTINGPERFORMED BY: Dedicated DevicesAdvanced Care Hospital of Southern New MexicoFjmpob5437 [facility] [id number] Range: 3.5-5.2 98-Vbb-147818:00 BILAT SCRN DIGITAL & CAD Radiology Report See Note (Normal) Comments: Exam Number: [id number] MAMMOGRAM, BILATERAL SCREENING DIGITAL AND CAD HISTORYRoutine [...] werealso examined with computer-aided detection s oftware ([employer].). Reported By: KENNA SWEET M.D. 27-Feb-20098:24 Lipid Panel (62170) Comments: PATIENT WAS FASTINGClinical Information: ADD [id number], [id number] PERFORMED BY: DtimeCone Health [facility] [id number] Cholesterol, Total 224 mg/dL (Abnormal) Range: 100-199 HDL Cholesterol 31 mg/dL (Abnormal) Comments: According to ATP-III Guidelines, HDL-C >59 mg/dL is considered anegative risk factor for CHD. LDL Cholesterol Calc 122 mg/dL (Abnormal) Range: 0-99 LDL/HDL Ratio 3.9 {ratio_units} (Abnormal) Range: 0.0-3.2 Triglycerides 354 mg/dL (Abnormal) Range: 0-149 VLDL Cholesterol José Luis 71 mg/dL (Abnormal) Range: 5-40 16-Bry-276137:16 JESUS ALBERTO (ANTINUCLEAR ANTIBODY) Comments: PATIENT NOT FASTINGPERFORMED BY: BALALIKEAAtrium Health [facility] [id number] (95596) Antinuclear Antibodies Direct Negative (Normal) 45-Zdd-306253:16 C-REACTIVE PROTEIN (81830) Comments: PATIENT NOT FASTINGPERFORMED BY: BALALIKEAAtrium Health [facility] [id number] C-Reactive Protein, Quant 8.0 mg/L (Abnormal) Range: 0.0-4.9 77-Tyh-656753:16 CBC (AUTO) (23221) Comments: PATIENT NOT FASTINGPERFORMED BY: [facility]6370 [facility] [id number] Hematocrit 42.4 % (Normal) Range: 34.0-44.0 Hemoglobin 14.4 g/dL (Normal) Range: 11.5-15.0 MCH 31.9 pg (Normal) Range: 27.0-34.0 MCHC 34.0 g/dL (Normal) Range: 32.0-36.0 MCV 94 fL (Normal) Range: 80-98 Platelets 160 {x10E3/uL} (Normal) Range: 140-415 RBC 4.52 {x10E6/uL} (Normal) Range: 3.80-5.10 RDW 14.1 % (Normal) Range: 11.7-15.0 WBC 7.6 {x10E3/uL} (Normal) Range: 4.0-10.5 18-Cfj-663092:16 Folate (11181) Comments: PATIENT NOT FASTINGPERFORMED BY: [place] 3532770 [facility] [id number] Folate (Folic Acid), Serum 17.4 ng/mL (Normal) Comments: Indeterminate: 3.4 - 5.4 Deficient: <3.4 59-Zdp-559895:16 METABOLIC PANEL, COMPREHENSIVE Comments: PATIENT NOT FASTINGPERFORMED BY: [place] 3532770 [facility] [id number] (64618) A/G Ratio 1.2 (Normal) Range: 1.1-2.5 Albumin, [...] Sodium, Serum 142 mmol/L (Normal) Range: 135-145 04-Tln-669540:16 RHEUMATOID FACTOR-QUANT (66382) Comments: PATIENT NOT FASTINGPERFORMED BY: OneTeamVisiAtrium Health [facility] [id number] RA Latex Turbid. 9.3 {IU/mL} (Normal) Range: 0.0-13.9 70-Qdd-418128:16 SED RATE ERYTHROCYTE (30633) Comments: PATIENT NOT FASTINGPERFORMED BY: Barnebysrp Overland StorageAtrium Health [facility] [id number] Sedimentation Rate-Westergren 21 mm/h (Normal) Range: 0-30 56-Pju-702658:16 TSH (38682) Comments: PATIENT NOT FASTINGPERFORMED BY: [employer]70 [place] SFS Digital MediaAtrium Health [facility] [id number] TSH 2.690 {uIU/mL} (Normal) Range: 0.450-4.500 77-Hel-648829:16 VITAMIN B-12 (CYANOCOBALAMIN) Comments: PATIENT NOT FASTINGPERFORMED BY: OneTeamVisiAtrium Health [facility] [id number] (55012) Vitamin B12 348 pg/mL (Normal) Range: 211-911 :35 Lipid Panel (70133) Comments: PATIENT WAS FASTINGClinical Information: ADD 777275, [id number] PERFORMED BY: JERMAINE [facility] Ijbaww[address] [place] [id number] Cholesterol, Total 208 mg/dL (Abnormal) Range: 100-199 HDL Cholesterol 32 mg/dL (Abnormal) Comments: According to ATP-III Guidelines, HDL-C >59 mg/dL is considered anegative risk factor for CHD. LDL Cholesterol Calc 124 mg/dL (Abnormal) Range: 0-99 LDL/HDL Ratio 3.9 {ratio_units} (Abnormal) Range: 0.0-3.2 Triglycerides 261 mg/dL (Abnormal) Range: 0-149 VLDL Cholesterol José Luis 52 mg/dL (Abnormal) Range: 5-40 :47 HgA1C , Office (50498) HgA1C , Office 5.8 % (Normal) Range: 4.6 - 7.1 :47 Blood Glucose , Office (06133) Blood Glucose , Office 128 (Normal) :43 Urinalysis, Office (47443) UA - LEUKOCYTE ESTERASE Trace (Normal) UA [...] Indication: Acute sinusitis Planned Observations LIPID PANEL (13394)Indication: Mixed hyperlipidemia On: 3-Ylr-643194:45 Request Platelet 95971 (citrate, nonclumping tube)Indication: Thrombocytopenia, unspecified On: 22-Jul-20178:19 Request Metabolic Panel, Comprehensive (77717)Indication: Benign essential hypertension On: :46 Request MICROALBUMIN: CREATININE RATIO (31674) AND (60339)Indication: Benign essential hypertension On: :45 Request URINALYSIS (55486)Indication: Benign essential hypertension On: :45 Request CBC WITH MANUAL DIFF (07869)Indication: Benign essential hypertension On: :45 Request Platelet Count, Citrated (35378)Indication: Thrombocytopenia, unspecified On: :11 Request LIPOPROTEIN, BLD, BY NMR (38598)Indication: Mixed hyperlipidemia On: :07 Request Lipase (13891)Indication: Abdominal pain On: :24 Request Comments: add to hospital labs. Amylase (59790)Indication: Abdominal pain On: :24 Request Comments: add to hospital labs. Antiphospholipid atb (29131)Indication: Pulmonary emboli On: : Request ANTICOAG ANTTHROMB III & ASSAY (61619)Indication: Pulmonary emboli On: :27 Request METABOLIC PANEL, COMPREHENSIVE (86900)Indication: Benign essential hypertension On: :37 Request Comments: in three months (approximately) CBC with auto diff (42397)Indication: Benign essential hypertension On: :37 Request Comments: in three months (approximately) Troponin I (57151)Indication: Chest pain at rest On: : Request CPK MB FRACTION (60978)Indication: Chest pain at rest On: 8-Cby-482595:01 Request CREATINE KINASE TOTAL (86063)Indication: Chest pain at rest On: 5-Pnk-309527:01 Request D-Dimer (58685)Indication: Chest pain at rest On: 0-Aet-336754:00 Request Metabolic Panel, Basic (05409)Indication: Chest pain at rest On: :58 Request CBC (Auto) (70433)Indication: Chest pain at rest On: :58 Request URINALYSIS, W/ MICRO (05405)Indication: Benign essential hypertension On: :29 Request METABOLIC PANEL, COMPREHENSIVE (30290)Indication: Benign essential hypertension On: :29 Request LIPID PANEL (02043)Indication: Benign essential hypertension On: :29 Request CBC W/AUTO DIFF WBC (89203)Indication: Benign essential hypertension On: :29 Request URINALYSIS (85230)Indication: UTI (lower urinary tract infection) On: :49 Request LIPID PANEL (91604)Indication: Benign essential hypertension On: :27 Request CBC WITH MANUAL DIFF (33985)Indication: Thrombocytopenia, unspecified On: :27 Request METABOLIC PANEL, COMPREHENSIVE (36119)Indication: Benign essential hypertension On: :27 Request TSH (THYROID STIMULATING HORMONE) (26606)Indication: Post-menopausal bleeding On: :37 Request PROLACTIN (28648)Indication: Post-menopausal bleeding On: :37 Request HEPATIC FUNCTION PANEL (30901)Indication: Hyperglyceridemia On: :05 Request LIPOPROTEIN, BLD, BY NMR (72277)Indication: Hyperglyceridemia On: :04 Request CBC, Platelets & Auto Diff (56544)Indication: Thrombocytopenia, unspecified On: :04 Request Comments: citrate tube Potassium Serum (83403)Indication: Hypokalemia On: 27-Aes-768158:36 Request Planned Encounters Medical; [facility]ness Exam (DB Nurse) - On: 26-Jul-2018 8:00 [facility] SUZY Spencer; [facility] Exam (Doctor) - On: 16-Aug-2018 8:00 [facility] Kelly Hannah MD, MD, Dana M Planned Procedures EKG (42048)By: Kelly Hannah MD On: 02-Dec-2017 Kelly Espinal MD Radiology - Foot - LeftBy: Brielle On: 12-Aug-2017 Kelly Beltrán MD, MD, Dana M TDAP VACCINE >7 IM (35703)By: On: 22-Jul-2017 Kelly Espinal MD, MD, Dana Comments: tdap 0.5mL prefilled syringelot:5BD43aft:10/2019L DELT IMpt tolerated wellAD APPRAISER ART M MAMMOGRAM BREAST BILATERAL SCREENING On: 02-Apr-2017 Intent DIGITAL (25993)By: Kelly Hannah MD, MD, Dana M Kenalog Injection, 10 mgm On: 15-Feb-2017 Intent (J3301)By: Kelly Hannah MD Comments: lot numer [id number] 05/08 marcaine [id number] 06/21/18 Kelly Hannah MD Echo CompleteBy: Kelly Hannah MD On: 10-Sep-2016 Intent Kelly Hannah MD Comments: rule out pericarditis and ? pericardial fluid EKG (63484)By: Kelly Hannah MD On: 04-Sep-2016 Intent Kelly Hannah MD Comments: see scanned document of test done to see results reviewed today with patient Bone Density StudyBy: Brielle FLYNN, On: 09-Jun-2016 Intent Kelly Hernandez MD Kenalog Injection, 10 mgm On: 21-Apr-2016 Intent (J3301)By: Kelly Hannah MD Comments: buupivacaine lot 61-147-0k 06-21-17 kenalog [id number] 09-05 Kelly Hannah MD DOPPLER ULTRASOUND OF RIGHT UPPER On: 20-Apr-2016 Intent EXTREMITY FOR VENOUS THROMBOEMBOLISM (59478)By: Kelly Hannah MD, MD, Dana M MAMMOGRAM, SCREENING, BOTH BREAST On: 27-Feb-2016 Intent (23906)By: Kelly Hannah MD, MD, Dana M Venous Doppler - BothBy: Brielle FLYNN, On: 06-Dec-2015 Intent Kelly Hernandez MD Comments: lower legs rule out DVT ADMINISTRATION OF INFLUENZA VIRUS On: 18-Apr-2015 Intent VACCINE (G0008)By: Kelly Hannah MD Comments: Lot:[id number]:11-03Route:IMLocation:Rt deltoiiddose: .5mlGiven by:Kelly Potter MD FLU VAC, SPLIT, >3 YEARS, INTRAMUSC On: 18-Apr-2015 Intent (29809)By: Kelly Hannah MD Comments: Lot #:[id number] date:Amount given:0.5mlRoute: IMSite given:L DltdGiven by: Peyton CHAMPION and ABN signed Quad Flu Kelly Hannah MD BILATERAL MAMMOGRAMS (43114)By: On: 05-Nov-2014 Intent Kelly Hannah MD, MD, Dana M CT - Chest (IV Contrast Needed)By: On: 23-Jul-2014 Intent Kelly Hannah MD, MD, Dana M COMPUTED TOMOGRAPHY ANGIOGRAPHY OF On: 23-Jul-2014 Intent CHEST WITH AND WITHOUT CONTRAST Comments: rule out PE (87497)By: Kelly Hannah MD, MD, Dana M EKG (58180)By: Lindsey Verde DO On: 05-Jul-2014 Intent Comments: sinus johanny with no chg MAMMOGRAM, SCREENING, BOTH BREAST On: 26-Apr-2014 Intent (91588)By: Kelly Hannah MD, MD, Dana M BILATERAL MAMMOGRAMS (03955)By: On: 27-Mar-2014 Intent Kelly Hannah MD, MD, Dana M IMMUNIZ ADMNIN, 1 VAC, SNGL/COMBO On: 27-Mar-2014 Intent (95760)By: Kelly Hannah MD Comments: Lot #[id number]-L dltd, IMDose prefilled syringegiven by:MLongJOENVIS and ABN signed Kelly Hannah MD FLU VAC, SPLIT, >3 YEARS, INTRAMUSC On: 27-Mar-2014 Intent (74689)By: Kelly Hannah MD, MD, Dana M Eprescribed prescriptions (G8553)By: On: 10-Oct-2013 Intent Kelly Hannah MD, MD, Dana M Phenergan Injection, up to 50 mg On: 22-Sep-2013 Intent (J2550)By: Nona Whiting CNP Comments: [id number], IM Nyla, APPRAISER ART INFUSION, NORMAL SALINE SOLUTION , On: 22-Sep-2013 Intent 1000 CC (Special Coverage Instructions Apply. See MCM: 2049) (J7030)By: Nona Whiting CNP HYDRATION IV INFUSION, INIT On: 22-Sep-2013 Intent (84793)By: Nona Whiting CNP Eprescribed prescriptions (G8553)By: On: 10-Jul-2013 Intent Nathalie Nicole Breast Screening - BilateralBy: On: 06-Feb-2013 Intent Kelly Hannah MD, MD, Dana M IMMUNIZ ADMNIN, 1 VAC, SNGL/COMBO On: 06-Feb-2013 Intent (22067)By: [place] (20864)By: Tj, On: 06-Feb-2013 Intent SUZY Ultrasound - Abdomen Complete & On: 18-Jan-2013 Intent PelvisBy: Nona Whiting CNP EKG (73941)By: Kelly Hannah MD On: 12-Jul-2012 Intent Kelly Hannah MD Comments: see scanned document of test done to see results reviewed today with patient Eprescribed prescriptions (G8553)By: On: 12-Jul-2012 Intent Long APPRAISER ART, Nyla L MAMMOGRAM, SCREENING, BOTH BREASTS On: 06-Oct-2011 Intent (89746)By: Kelly Hannah MD Comments: 11-04-11 Kelly Hannah MD MAMMOGRAM, SCREENING, BOTH BREASTS On: 28-Nov-2010 Intent (69674)By: Kelly Hannah MD, MD, Dana M MAMMOGRAM, SCREENING, BOTH BREASTS On: 23-Oct-2010 Intent (54228)By: Kelly Hannah MD, MD, Dana M EEGBy: Lindsey Verde DO On: 20-Aug-2010 Intent EKG (42348)By: Kelly Hannah MD On: 20-Dec-2009 Intent Kelly Hannah MD EKG (18034)By: Kelly Hannah MD On: 17-Jan-2009 Intent Kelly Hannah MD MAMMOGRAM, SCREENING, BOTH BREASTS On: 17-Jan-2009 Intent (86799)By: Kelly Hannah MD, MD, Dana M Pulse Oximetry (09325)By: Yung, On: 04-Jul-2008 Intent Gabriela Comments: 98% Phenergan Injection, up to 50 mg On: 25-Apr-2008 Intent (J2550)By: Nona Whiting CNP Comments: 25mg given IMAmt: 1mlLot: [id number]: 03/2010Route: IMSite: left hipTolerated: wellGiven By: NATASHA Plata INFUSION, NORMAL SALINE SOLUTION , On: 25-Apr-2008 Intent 1000 CC (Special Coverage Comments: IV Therapy initiated (Hamzah Black LPN)22G, 1inchSite: right wristTolerated: wellB. NATASHA Mckinnon Instructions Apply. See MCM: 2048) (J7030)By: Nona Whiting CNP HYDRATION IV INFUSION, INIT On: 25-Apr-2008 Intent (89738)By: Nona Whiting CNP FLU VAC, SPLIT, >3 YEARS, INTRAMUSC On: 21-May-2006 Intent (32335)By: SUZY Spencer IMMUNIZ ADMNIN, 1 VAC, SNGL/COMBO On: 21-May-2006 Intent (27578)By: SUZY Spencer Planned Medications INFUSION, NORMAL SALINE [...] for Tdap vaccination (Renamed from Need for rjuewbboqp-cdohxzx-zvenlkoto (Tdap) vaccine, adult/adolescent), Thrombocytopenia, unspecified [facility] [...] Cold Symptoms: Pt just flew home from [place] yesterday.- yellow green nasal discharge- sx for [...]
--- OUTSIDE RECORDS SUMMARY | 2018-07-16 04:35 | XMS RPT_ITS | Continuity of Care Document ---
:1950 Author Organization [facility] Address [facility] [address] [place] [address] Phone Care Team Providers Name Role Phone [...] depression lost job was in . lost [employer] and she has to drive around. life withsomeone OCD, hoarder. on ambien for sleep per Dr. coates. Wellbutrin start but had insomni a in past. working with [employer].. doing okay on incresae welbutrin.tried Effexor, paxil [...] adipex and topamax. 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 got [...] 18-Apr-2015 End : 19-Apr-2015 Inactive BD Disp Longview 30G X 1/2 Miscellaneous 1 (one) Misc [...] Inactive Comments:Medication taken as needed. called to [facility] 07-30-09 erussell disp 4 ounces no [...] Extended Release) 1 (one) Tablet ER at [facility] for 14 days for 0 days Quantity: 14 {Tablet_ER} Refills: 0 Ordered:02-May-2010 SUZY Spencer Start : 20-Dec-2009 End : 02-May-2010 Inactive NYSTATIN, 525159VQAF/ML (Mouth/Throat Suspension) 15 Suspension qid swish and swallow for 0 days Quantity: 450 {Milliliter} Refills: 0 Ordered:20-Aug-2010 Suzette Black LPN Start : 04-Aug-2010 End : 20-Aug-2010 Inactive PANTOPRAZOLE SODIUM, 40MG (Oral Tablet Delayed Release) 1 (one) Tablet DR daily for 0 days Quantity: 30 {Tablet} Refills: 6 Ordered:06-Dec-2015 SUZY Spencer Start : 20-Apr-2015 End : 06-Dec-2015 Inactive Pen Longview 5/16 31G X 8 MM Miscellaneous 1 [...] Leanne Marie Start : 29-Jul-2009 Inactive ZOSTAVAX, 66974CEF/0.65ML (Subcutaneous Solution Reconstituted) uad For Solution one [...] epig was in hospital and 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 ppi and carafate helping. [...] for Tdap vaccination (Renamed from Need for jxaliorqnx-yxckxun-ashliiltc (Tdap) vaccine, adult/adolescent) (Z23, V06.1) Status: Resolved [...] 2007, 2013 bilateral LEFT HEART CARDIAC CATH (62972) Completed Comments: Dr. Alexander nasal abscess I and D 04-30 Completed Date Value Details 03-Mar-2018 Inital Evaluation (1) - PT Result: Comments: See Note; NOTES: [facility] [address] [place] [address] Fax REHABILITATION SERVICES INITIAL EVALUATION MR#: [id number] Acct: [id number] Name: DIANA ESCUDERO Rep #: [id number] : 1950 68 From: Lazaro Jackson DPT Referring Dr.: GENOVEVA Myers Status: REG RCR Insurance: [employer] PPO SELF PAY INSURANCE Patient's Visit Information [...] stabing pain (8/10) at rest. 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 Please let me know if there are questions or concerns regarding this plan of care. Physician Signature: Date: <Electronically signed by Lazaro Jackson DPT&amp ;#62; 03/03/18 9410 CC: GENOVEVA Myers; Kelly Hannah MD CLS Signed For Medicare only, by signing this I certify the plan of care. Physicians Signature Date 16-Feb-2018 12 Lead Electrocardiogram Result: Comments: See Note; NOTES: [facility] Cardiovascular Services [address] [place] [address] 12 Lead EKG 02/14/18 1459 MR#: [id number] Acct: [id number] Name: DIANA ESCUDERO Rep #: [id number] : 1950 68 From: Harris Brandt MD [...] Int : 401 ms Sinus bradycardia Inferior MS, age undeterm ined, cannot be excluded Confirmed by KEVIN FLYNN, HARRIS ([id number]), movie editor NA DOWELL (56) on 02/16/2018 1:34:57 PM Referred By: BRIEN Confirmed By:HARRIS BRANDT MD 02/16/18 1335 Date __ Harris Brandt MD CC: Kelly Hannah MD; Kasi Worley MD Signed 15-Feb-2018 Emergency Department Summary Result: Comments: See Note; NOTES: [facility] Medical Records Department [address] [place] [address] Emergency Department Summary 02/14/18 1636 MR#: [id number] Acct: [id number] Name: DIANA ESCUDERO Rep #: [id number] : 1950 68 From: Kasi Worley MD [...] score 1. This note was generated with [employer] dictation software. It may contain incorrect words, [...] your Primary Care Provider. Call [facility] ([phone]) or report to the closest Emergency Room. Call 911 if necessary. 02/15/18 0046 <Electronically signed by Jose Daniel Worley MD> Date Kasi Worley MD Cosigner Signature (If Indicated): Date CC: Kelly Hannah MD 14-Feb-2018 Venous Duplex Lower Extremity Result: Comments: See Note; NOTES: [facility] Cardiovascular Services [address] [place] [address] Venous Duplex US, Unilateral 02/14/18 1549 MR#: [id number] Acct: [id number] Name: DIANA HICKMAN OLGA Rep #: [id number] : 1950 68 From: Abdoulaye Landa MD [...] Landa MD CC: Kelly Hannah MD; Kasi Worlye MD Date Dictated: 0 02/14/18 1549 Date Transcribed: 02/14/181740 Paper Cone Maker: Signed 14-Feb-2018 Chest 1 View (Portable) Result: Comments: See Note; NOTES: [facility] Imaging Services [address] [place] [address] Chest 1 View (Portable) MR#: [id number] Acct: [id number] Name: DIANA ESCUDERO Rep #: [id number] : 1950 F 68 From: Aaron Salgado MD PCP: Kelly Hannah MD Status: [facility] ER Study: Chest 1 View (Portable) Date of Exam: 02/14/18 Exam# [id number] Ordering Dr: Kasi Worley MD STUD Y: [...] Aaron Salgado MD at 15:52 EDT Tel [phone], Service support , CC: Kelly Salgado; Kasi Worley MD Paper Cone Maker: Signed 24-Jan-2018 Cardiology Visit Report Result: Comments: See Note; NOTES: [facility] [address] [place] [address]. [address] [place] [address] OFFICE VISIT Date of Service: 01/24/18 MR#: [id number] Acct: [id number] Name: DIANA ESCUDERO OLGA Rep #: [id number] : 1950 Provider: Puneet Alexander MD Age/Sex: 67/F [facility] Status: Signed HPI HPI Chief [...] Intake Visit Reasons: 6 M FU In [facility] Required: No Allergies simvastatin [From Zocor] [...] mg PO QDAY 01/24/18 [History Confirmed 01/24/18] [facility] Medical History Obstructive sleep apnea (Chronic) History of pulmonary embolism (Chr onic) Atherosclerosis of coronary artery of [place] heart without angina pectoris (Chronic) Hypertension (Chronic) [...] Plan 1. Atherosclerosis of coronary artery of [place] heart without angina pectoris I25.10 Non Obs [...] 3 Diagnoses Atherosclerosis of coronary artery of [place] heart without angina pect ranulfo I25.10 Hyperlipidemia E78.5 Coding Level of Care Code Off vis,est,level 3 Diagnoses Atherosclerosis of coronary artery of [place] heart without angina pectoris I25.10 Hyperlipidemia E78.5 12/06 1536 <Electronically signed by Puneet Alexander MD> Date [facility]uneet [facility] MD [facility] Signature: Date (if applicable) CC: Kelly Hannah MD 12-Aug-2017 Foot min 3 Views Result: Comments: See Note; NOTES: [facility] Imaging Services [address] [place] [address] Foot min 3 Views MR#: [id number] Acct: [id number] Name: DIANA ESCUDERO OLGA Rep #: [id number] : 1950 F 67 From: Aaron Salgado MD PCP: Kelly Hannah MD Status: REG CLI Study: Foot min 3 Views Date of Exam: 08/12/17 Exam# [id number] Ordering Dr: Kelly Hannah MD STUDY: X-RAY [...] Salgado MD 08/08/21 at 14:14 EST Tel [phone], Service support , CC: Kelly Hannah MD Paper Cone Maker: Signed 05-Aug-2017 TXT - Blood Flow Screening Result: Comments: See Note; NOTES: [facility] Cardiovascular Services [address] [place] [address] 08/05/17 0756 MR#: [id number] Acct: [id number] Name: DIANA ESCUDERO Rep #: [id number] [...] Dictated: 08/05/17 0756 Date T ranscribed: 08/05/172129 Paper Cone Maker: Signed 15-Jul-2017 Cardiology Visit Report Result: Comments: See Note; NOTES: [facility] [address] [place] [address] OFFICE VISIT Date of Service: 07/15/17 MR#: [id number] Acct: [id number] Name: DIANA ESCUDERO OLGA Rep #: [id number] : 1950 Provider: Puneet Alexander MD Age/Sex: 67/F [place] [facility] [place]: Signed HPI 6 M FU: Chief [...] Hyperlipidemia (Chronic) Atherosclerosis of coronary artery of [place] heart without angina pectoris (Chronic) Blood glucose [...] (CAD), BILAT Result: Comments: See Note; NOTES: [facility] Imaging Services [address] [place] [address] SCREENING MAMM (CAD), BILAT MR#: [id number] Acct: [id number] Name: DIANA ESCUDERO OLGA Rep # : [id number] : 1950 F 67 From: Aaron Salgado MD PCP: Kelly Hannah MD Status: REG CL Study: SCREENING MAMM (CAD), BILAT Date of Exam: 04/19/17 Exam# [id number] Ordering Dr: Kelly Hannah MD MAMMOGRAPHY - [...] delay biopsy of a clinically suspicious abnormality. [id number] Electronically Signed: Aaron Salgado MD at 8:33 EDT Tel [phone], Service support , CC: Kelly Hannah MD Paper Cone Maker: Signed 16-Sep-2016 Echocardiogram Complete Result: Comments: See Note; NOTES: [facility] Cardiovascular Services [address] [place] [address] Echo Complete 09/16/16 0956 MR#: [id number] Acct: [id number] Name: DIANA ESCUDERO Rep #: [id number] : 1950 66 From: Emil Craven MD [...] Dictated: 09/16/16 0956 Date Transcribed: 09/16/16 1145 Paper Cone Maker: Signed 04-Sep-2016 CTA Chest W/WO Contrast Result: Comments: See Note; NOTES: [facility] Imaging Services [address] [place], [place] [address] [address] Verdana 4d CTA Chest W/WO Contrast MR#: [id number] Acct: [id number] Name: DIANA ESCUDERO Rep #: [id number] : 1950 F 66 From: Aaron Salgado MD PCP: Kelly Hannah MD Status: REG ER Study: CTA Chest W/WO Contrast Date of Exam: 09/04/16 Exam# [id number] Ordering Dr: Leanne Finn STUDY: CTA CHEST [...] Burak Salgado MD at 11:40 EDT Tel [phone], Service support [phone], CC: Leanne Finn MD; Kelly Hannah MD Paper Cone Maker: Signed 23-Jun-2016 Dexa Bone Density Study (HP) Result: Comments: See Note; NOTES: [facility] Imaging Services [address] [place] [address] Verdana 4d Dexa Bone Density Study (HP) MR#: [id number] Acct: [id number] Name: EDUARDO ESCUDERO Rep #: [id number] : 1950 F 66 From: Aaron Salgado MD PCP: Kelly Hannah MD Status: REG CLI Study: Dexa Bone Density Study (HP) Date of Exam: 06/23/16 Exam# [id number] Ordering Dr: Kelly Posey MD STUDY: DUAL [...] Aaron Salgado MD at 16:05 EST Tel [phone], Service support [phone], CC: Kelly Hannah MD Paper Cone Maker: Signed 20-Apr-2016 Venous Duplex Lower Extremity Result: Comments: See Note; NOTES: [facility] Cardiovascular Services [address] [place] [address] Venous Duplex US, Unilateral 04/20/16 1428 MR#: [id number] Acct: [id number] Name: DIANA ESCUDERO Rep #: [id number] : 1950 66 From: Marcus Garza MD [...] Date Dictated: 04/20/16 1428 Date Transcribed: 04/20/162149 Paper Cone Maker: Signed 23-Mar-2016 Bilat Scrn Digital AND CAD Result: Comments: See Note; NOTES: [facility] Imaging Services [address] [place] [address] Verdana 4d Bilat Scrn Digital AND CAD MR#: [id number] Acct: [id number] Name: ANGELA ESCUDERO OLGA Rep #: [id number] : 1950 F 66 From: Aaron Salgado MD PCP: Kelly Hannah MD Status: REG CLI Study: Bilat Scrn Digital AND CAD Date of Exam: 03/23/16 Exam# [id number] Ordering Dr: Kelly Resendiz i, MD MAMMOGRAPHY [...] delay biopsy of a clinically suspicious abnormality. [id number] Electronically Signed: Aaron Salgado MD at 7:51 EDT Tel [phone], Service support [phone], CC: Kelly Hannah MD Paper Cone Maker: Signed 02-Jan-2016 Venous Duplex Lower Extremity Result: Comments: See Note; NOTES: [facility] Cardiovascular Services [address] [place] [address] Venous Duplex US - Johnny Extrem 01/02/16 1454 MR#: [id number] Acct: [id number] Name: DIANA ESCUDERO Rep #: [id number] : 1950 65 From: Marcus Garza MD [...] Date Dictated: 01/02/16 1454 Date Transcribed: 01/02/161653 Paper Cone Maker: Signed 12-Dec-2015 12 Lead Electrocardiogram Result: Comments: See Note; NOTES: [facility] Cardiovascular Services [address] [facility] [place] [address] 12 Lead EKG 12/03/151124 MR#: [id number] Acct: [id number] Name: DIANA DOWLING OLGA Rep #: [id number] : 1950 65 From: Puneet Alexander MD [...] normal ECG Confirmed by PUNEET ALEXANDER ([id number]), movie editor NA DOWELL (56) on 12/09/2015 10:54:37 AM Referred By: KIRT Confirmed By:PUNEET ALEXANDER 12/09/15 1054 Date ___ Puneet Alexander MD CC: Kelly Hannah MD Date Dictated: 12/03/15 1125 Date Transcribed: 12/03/151124 Paper Cone Maker: Signed 03-Dec-2015 Emergency Department Summary Result: Comments: See Note; NOTES: [facility] Medical Records Department [address] [place] [address] Emergency Department Summary MR#: [id number] Acct: [id number] Name: DIANA ESCUDERO Rep #: [id number] : 1950 65 From: Leanne Finn MD [...] PCP. DIAGNOSIS: Pleurisy. Leanne Finn MD T: [facility] JOB: [id number] 12/03/15 1536 <Electronically signed by Leanne Finn MD& #62; Date Leanne Finn MD Cosigner Signature (If Indicated): Date CC: Kelly Hannah MD Da te Dictated: 12/03/151356 Date Transcribed: 12/03/151356 Paper Cone Maker: Signed 03-Dec-2015 Discharge Instruction Result: Comments: See Note; NOTES: [facility] Medical Records Department [address] [place], [place] [address] [address] Discharge Instruction 12/03/151353 MR#: [id number] Acct: [id number] Name: DIANA ESCUDERO OLGA Rep #: [id number] : 1950 65 From: Leanne Finn MD [...] problems, contact your doctor. Call [facility] ([phone]) or report to the closest Emergency Room. Call 911 if necessary. 12/03/15 135 &# 60;Electronically signed by Leanne Finn MD> Date Leanne Chakraborty Signature (If Indicated): Date CC: Kelly Hannah MD 03-Dec-2015 CTA Chest W/WO Contrast Result: Comments: See Note; NOTES: [facility] Imaging Services [address] [place] [address] Verdana 4d CTA Chest W/WO Contrast MR#: [id number] Acct: [id number] Name: DIANA MENESES Rep #: [id number] : 1950 F 65 From: Aaron Salgado MD PCP: Kelly Hannah MD Status: REG ER Study: CTA Chest W/WO Contrast Date of Exam: 12/03/15 Exam# [id number] Ordering D r: Leanne Finn MD STUDY: [...] Aaron Salgado MD at 13:37 EDT Tel [phone], Service support [phone], CC: Leanne Finn MD; Kelly Hannah MD Paper Cone Maker: Signed 24-Jul-2015 Sleep Study Report Result: Comments: See Note; NOTES: [facility] [address] [place] [address] Split Night Sleep Study MR#: [id number] Acct: [id number] Name: Miguel Angel ESCUDERO Rep #: [id number] : 1950 65 From: Jimmy Coates MD [...] version). Please note that a reference to [facility] AHI in this report is consistent with the current Hypopnea definition according to Medicare Criteria and an [facility] AHI reference is consistent wit h the current Hypopnea definition according to the AASM criteria and is recognized by [facility] as the RDI. PROCEDURE: The study was attended continuously by a two way radio technician. Monitored parameters inclu ded left and [...] calculated body mass index of 35 and [place] Sleepiness Scale score of 6/20. The patient [...] and heated humidity. SLEEP STUDY DATA: The [facility] split night study began at 1114:07 p.m. [...] MAmber. Jimmy Coates MD T: [facility] JOB: [id number] CC: Jimmy Coates MD DD: 08/06 1043 1043 07/24/15 2205 <Electronically signed by Jimmy Coates MD> Date Jimmy Coates MD Co-signature (if appli cable) Date Signed 12-Feb-2015 Chest 1 View (Portable) Result: Comments: See Note; NOTES: [facility] Imaging Services [address] [place] [address] Radiology Report MR#: [id number] Acct: [id number] Name: DIANA ESCUDERO Rep #: [id number] : 1950 F 65 From: Aaron Salgado MD PCP: Kelly Hannah MD Status: PRE ER Study: Chest 1 View (Portable) Date of Exam: 02/12/15 Exam# [id number] Ordering Dr: Kenroy Arciniega MD S SABRINADY: [...] abnormality is seen. Electr onically Signed: Aaron Salgaod MD at 11:08 EDT Tel [phone], Service support [phone], RAD/Chest 1 View (Portable) IMPRESSION: No acut e abnormality is seen. Electronically Signed: Aaron Salgado MD at 11:08 EDT Tel [phone], Service support [phone], CC: Kelly Hannah MD; Kenroy Arciniega MD Paper Cone Maker: Signed 12-Feb-2015 CTA Chest W/WO Contrast Result: Comments: See Note; NOTES: [facility] Imaging Services [address] [place] [address] CAT Scan Report MR#: [id number] Acct: [id number] Name: DIANA ESCUDERO Rep #: [id number] : 1950 F 65 From: Aaron Salgado MD PCP: Kelly Hannah MD Status: REG ER Study: CTA Chest W/WO Contrast Date of Exam: 02/12/15 Exam# [id number] Ordering Dr: Kenroy Arciniega MD UDY: CTA [...] Aaron Salgado MD at 12:08 EDT Tel [phone], Service support [phone], CC: Kelly Hannah MD; Kenroy Arciniega MD Paper Cone Maker: Signed 11-Jan-2015 Bilat Scrn Digital AND CAD Result: Comments: See Note; NOTES: [facility] Imaging Services [address] [place] [address] Breast Imaging Report MR#: [id number] Acct: [id number] Name: DIANA ESCUDERO Rep #: [id number] : 1950 F 64 From: Shaan Nunez DO PCP: Kelly Hannah MD Status: REG CLI Study: Bilat Scrn Digital AND CAD Date of Exam: 01/11/15 Exam# [id number] Ordering Dr: Kelly Hannah MD MAMMOGRAPHY - [...] Signed: Shaan NunezDO at 10:22 EDT Tel [phone], Service support [phone], CC: Kelly Hannah MD Paper Cone Maker: Signed 23-Jul-2014 CTA Chest W/WO Contrast Result: Comments: See Note; NOTES: [facility] Imaging Services [address] [place] [address] CAT Scan Report MR#: [id number] Acct: [id number] Name: DIANA ESCUDERO Rep #: [id number] : 1950 F 64 From: Aaron Salgado MD PCP: Kelly Hannah MD Status: REG CLI Study: CTA Chest W/WO Contrast Date of Exam: 07/23/14 Exam# [id number] Ordering Dr: Kelly Hannah MD S TUDY: [...] Aaron Salgado MD at 12:47 EST Tel [phone], Service support [phone], CC: Kelly Hannah MD Paper Cone Maker: Signed 04-Jan-2014 Consultation Result: Comments: See Note; NOTES: [facility] Medical Records Department [address] [place] [address] Consultation 01/04/14 1218 MR#: [id number] Acct: [id number] Name: DIANA ESCUDERO Rep #: [id number] : 1950 63 From: Juancho Foy MD PCP: Kelly Hannah MD Status: REG [facility] Location: [place] [address] Problem List (1) Bradycardia Status: Acute (2) [...] showed sinus bradycardia, normal QRS duration, normal IL interval, normal QT interval, no ischemic hardy [...] PO Q4H PRN PRN #30 tablet 01/04/14 [[place] 5/325] Surgical History: appendectomy, cholecystectomy, - - Hysterectomy Psychiatric History: No pertinent psych hx 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 Medical Records Department [address] [place] [address] Instructions for Home/Discharge Instructions 01/04/14 0731 MR#: [id number] Acc t: [id number] Name: DIANA ESCUDERO Rep #: [id number] : 1950 63 From: Anatoly Diego MD [...] PRN PRN #60 capsule Hydrocodone Bitart/Apap 5-325 [[place] 5/325] 1 tablet PO Q4H PRN PRN #30 tablet Please Follow Up With: Anatoly Diego When: 2-3 weeks Proposed Discharge Date: 01/05/14 01/04/14 0735 <Electronically signed by Anatoly Diego MD> Date Anatoly Diego MD CC: Kelly Hannah MD 10-Oct-2013 EKG (67614) Comments: see scanned document of test done to see results reviewed today with patient Result: [MEASUREMENTS ANALYSIS] Date of Test: 10/10/2013 08:20:27; Heart Rate: 64; IL Interval: 160; QRS: 90; QT Interval: 394; Corrected QT Interval (QTc): 401; P [place]: 50; QRS [place]: 5; T [place]: 14; Blood Pressure: 122/78 [ECG DIAGNOSTIC STATEMENTS] [...] week Status: Active 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 Status: Active Living Situation: Lives with domestic partner. Comments: , [employer] Status: Active No Caffeine Use Status: Active [...] kg/m2 Body Surface Area Calculated 2.13 m2 8-Chz-144724:23 Temperature 98.2 f Pulse 70 /min Comments: [...] kg/m2 Body Surface Area Calculated 2.13 m2 4-Sep-38771:17 Pulse 72 /min Comments: Pattern: Regular BP [...] NMR Comments: PATIENT WAS FASTINGPERFORMED BY: [facility] [address] [id number] ([id number]) LP-IR Score 81 (Abnormal) Comments: INSULIN RESISTANCE MARKER <--Insulin Sensitive Insulin Resistant--> Percentile in Reference PopulationInsulin Resistance ScoreLP-IR Score Low 25th 50th 75th High <27 27 45 63 >63LP-IR Score is inaccurate if patient is non-fasting. .The LP-IR score is a laboratory developed i banner that has beenassociated with insulin resistance and [...] were developed and their performance characteristicsdetermined by [employer]. These assays have not been cleared by [...] 1600 - 2000 Very High > 2000 87-Ken-462826:35 Basic Metabolic Profile (BMP) Comments: [facility] [address] [place], [place], [id number] GAP 10 (Normal) Range: 5-15 CO2 30.0 [...] A.D.A. criteria.Please note revised GLUCOSE reference range anienzadg57/02/2018. 40-Unx-364747:35 CBC W/Diff, Automated Comments: [facility] [address] [facility] [address] [place], [place], [address] Absolute Lymph 2.44 {X10_3/ul} (Normal) Range: 0.83-4.51 [...] 4.2-5.4 WBC 7.3 K/mm3 (Normal) Range: 4.4-11.0 42-Fit-118322:35 Troponin-I Comments: [facility] [address] [place], [address] TROPONIN-I < 0.015 ng/mL (Normal) Comments: TROPONIN-I EXPECTED VALUES <0.045 Negative 0.045 - 0.590 Consistent with Cardiac Damage > OR = 0.600 Critical Value Not every elevated troponin is indicative of MS. T hesevalues should be used with clinical judgement in examiningthe patient's clinical picture for diagnosis. To establisha diagnosis of MS versus myocardial injury, there must be ademonstrated rise and/ or fall in the troponin values, inaddition to ischemic symptoms, EKG changes, new regionalwall motion abnormality, and/or angiographical evidence. PLEASE NOTE: REFERENCE RANGES EDITED 11/01/1723-Sep-20178:28 Pathology Report Comments: PERFORMED BY: [facility] Cfas1547 [facility] [id number] BY: [facility] Dermatopathology Iocjvec636 [facility] [address] [place] [address] [id number] Information: [id number] See MATER Comments: Material submitted: .RIGHT HAND BIOPSYClinical history: .BLACK SPOT ON HAND Note (Normal) Diagnosis:BLUE NEVUS.TMZ/09/28/2017Electronically signed: .Mya Fay MD, DermatopathologistGross description: .RECEIVED IN FORMALIN LABELED DIANA ESCUDERO AND PALOMO HAND IS A PUGH SKIN PUNCH BIOPSY MEASURING 3.0 MM IN ANDREW METERAND 2.0 MM THICK WITH A OLIVAS, RAISED AREA 2.5 X 1.5 MM. SUBMITTEDIN TOTO.FUN/TMZPathologist provided ICD-10:D22.61CPT .122845 37-Aqg-14991:47 Platelet Count on Comments: PATIENT WAS FASTINGPERFORMED BY: [facility] [address] [place] [address] [id number] BY: CB [facility] [address]va[address] [facility] [id number] Citrated Bld Plt Count, Citrated Bld 160 {X10E3/uL} (Normal) Range: 150-379 08-Hsl-73935:47 LIPOPROTEIN, BLD, BY NMR Comments: PATIENT WAS FASTINGPERFORMED BY: [facility] Lyriyzdvzp3392 [facility] [id number] BY: [facility] Excfwi[address] [facility] [id number] Information: PLATELET ON CITRATE BLD [id number] (31970) LP-IR Score 85 (Abnormal) Comments: INSULIN RESISTANCE [...] 1600 - 2000 Very High > 2000 03-Omf-59697:43 Albumin/Creatinine Ratio,Urine Comments: PATIENT NOT FASTINGPERFORMED BY: [facility] [facility] [id number] Alb/Creat Ratio <1.4 {mg/g_creat} (Normal) Range: 0.0-30.0 Albumin, Urine <3.0 ug/mL (Normal) Creatinine, Urine 212.4 mg/dL (Normal) :43 CBC With Differential/Platelet Comments: PATIENT NOT FASTINGPERFORMED BY: [facility] [facility] [id number] Immature Grans (Abs) 0.0 {x10E3/uL} (Normal) Range: [...] Panel (14) Comments: PATIENT NOT FASTINGPERFORMED BY: CuedSt. [facility] HospitalMukdmg[address] [facility] [id number] ALT (SGPT) 18 [iU]/L (Normal) Range: 0-32 [...] Glucose, Serum 100 mg/dL (Abnormal) Range: 65-99 73-Jzl-89800:43 Urinalysis, Routine Comments: PATIENT NOT FASTINGPERFORMED BY: CuedSt. [facility] HospitalBsvkoy[address] [facility] [id number] Microscopic Examination MICNIP (Normal) Comments: Microscopic not indicated and not performed. Nitrite, Urine Negative (Normal) Urobilinogen,Semi-Qn 0.2 mg/dL (Normal) Range: 0.2-1.0 Bilirubin Negative (Normal) Occult Blood Negative (Normal) Ketones Negative (Normal) Glucose Negative (Normal) Protein Negative (Normal) WBC Esterase Negative (Normal) Appearance Clear (Normal) Urine-Color Yellow (Normal) pH 6.0 (Normal) Range: 5.0-7.5 Specific Daisy 1.025 (Normal) Range: 1.005-1.030 43-Euo-793425:21 FLU A+B DIRECT AG, (RAPID) (63656) FLU A+B DIRECT AG, (RAPID) negative (Normal) :32 Potassium Serum (39081) Comments: PATIENT NOT FASTINGPERFORMED BY: Chimeros[address] [id number] BY: [address] [id number] Potassium, Serum 3.9 mmol/L (Normal) Range: 3.5-5.2 :32 Magnesium (03844) Comments: PATIENT NOT FASTINGPERFORMED BY: Chimeros[address] [id number] BY: [address] [id number] Magnesium, Serum 2.0 mg/dL (Normal) Range: 1.6-2.3 :32 CCP ANTIBODY (14566) Comments: PATIENT NOT FASTINGPERFORMED BY: Chimeros[address] [id number] BY: [address] [id number] CCP Antibodies IgG/IgA 10 {units} (Normal) Range: 0-19 Comments: Negative <20 Weak positive 20 - 39 Moderate positive 40 - 59 Strong positive >59 :32 TSH (67676) Comments: PATIENT NOT FASTINGPERFORMED BY: Chimeros[address] [id number] BY: [address] [id number] TSH 3.380 {uIU/mL} (Normal) Range: 0.450-4.500 :32 SED RATE ERYTHROCYTE Comments: PATIENT NOT FASTINGPERFORMED BY: [place] [address] [facility] [id number] BY: [address] [id number] (98184) Sedimentation Rate-Westergren 14 mm/h (Normal) Range: 0-40 :32 C-REACTIVE PROTEIN (30912) Comments: PATIENT NOT FASTINGPERFORMED BY: [facility] [facility] [id number] BY: [address] [id number] C-Reactive Protein, Quant 3.5 mg/L (Normal) Range: 0.0-4.9 :32 JESUS ALBERTO (ANTINUCLEAR ANTIBODY) Comments: PATIENT NOT FASTINGPERFORMED BY: [facility]Asc[facility] Hospital[address] [facility] [id number] BY: [address] [id number]; fu 3-30 (96607) JESUS ALBERTO Direct Negative (Normal) 28-Puf-408313:37 Basic Metabolic Profile (BMP) Comments: 'TROP' Serial specimen #1, #2, #3, or #4: 1[facility] Ueoeghdyns[address] [place], [address] GAP 8 (Normal) Range: 5-15 CO2 29.0 [...] <126 mg/dLsuggests IMPAIRED HOMEOSTASIS per A.D.A. criteria. 38-Ckz-408204:37 CBC W/Diff, Automated Comments: [facility] Xutkbledwn[address] [place], [address] Absolute Lymph 1.93 {X10_3/ul} (Normal) Range: 0.83-4.51 [...] 4.2-5.4 WBC 5.9 K/mm3 (Normal) Range: 4.4-11.0 38-Rve-632869:37 Troponin-I Comments: 'TROP' Serial specimen #1, #2, #3, or #4: 1[facility] Niiehgatsv[address] [place], [address] TROPONIN-I < 0.02 ng/mL (Normal) Comments: TROPONIN-I EXPECTED VALUES <0.05 NEGATIVE 0.06 - 0.59 AT RISK OF MS > OR = 0.60 SUGGEST MS 76-Kim-402643:16 HEPATITIS C ANTIBODY (00571) Comments: CLient bill for this; PATIENT NOT FASTINGPERFORMED BY: LabCoSt. Joseph's Wayne HospitalXalwcw[address] [facility] [id number] Hep C Virus Ab <0.1 {s/co_ratio} (Normal) Range: 0.0-0.9 Comments: Negative: < 0.8 Indeterminate: 0.8 - 0.9 Positive: > 0.9 . The CDC recommends that a positive HCV antibody result be followed up with a HCV Nucleic Acid Amplification test (500298). 17-Rur-567300:32 CBC W/Diff, Automated Comments: [facility] Bgelbiienj[address] [place], [address] Absolute Lymph 2.31 {X10_3/ul} (Normal) [...] 1'CKMB' Serial Specimen #1, #2 or #3? 1[facility] [address]ztgnilmw[address] [place], [place], [address] GAP 7 (Normal) Range: 5-15 CO2 28.0 [...] 1'CKMB' Serial Specimen #1, #2 or #3? [address] [place] [address] Emnohaqrnb0878 [facility] [place], [address] CKRI 1.1 % (Normal) Range: 0.0-1.4 Comments: RELATIVE INDEX >1.5% IS PRESUMPTIVELY POSITIVE CPKMB 1.7 ng/mL (Normal) Range: 0.0-5.0 Comments: CK-MB and RI Interpretation MB Relative Index Non-AMI <or= 5 NA Indeterminate > 5 <or= 4 AMI > 5 > 4 CPK TOTAL 158 U/L (Normal) Range: 26-192 Comments: Moderate Hemolysis, Result may be falsely increased. 76-Ydu-802119:08 Troponin-I Comments: Serial Specimen #1, #2 or #3? 1'TROP' Serial specimen #1, #2, #3, or #4: 1'CKMB' Serial Specimen #1, #2 or #3? [address] [place] [address] Chmkdtpgwg2229 [place], [place], [address] TROPONIN-I < 0.02 ng/mL (Normal) Comments: TROPONIN-I EXPECTED VALUES <0.05 NEGATIVE 0.06 - 0.59 AT RISK OF MS > OR = 0.60 SUGGEST MS :30 CBC (Auto) (27920) Comments: PATIENT WAS FASTINGPERFORMED BY: LabCoSt. Joseph's Wayne HospitalDafkxr[address] [facility] [id number] Platelets 165 {x10E3/uL} (Normal) Range: 150-379 RDW 13.8 % (Normal) Range: 12.3-15.4 MCHC 33.1 g/dL (Normal) Range: 31.5-35.7 MCH 31.2 pg (Normal) Range: 26.6-33.0 MCV 94 fL (Normal) Range: 79-97 Hematocrit 43.2 % (Normal) Range: 34.0-46.6 Hemoglobin 14.3 g/dL (Normal) Range: 11.1-15.9 RBC 4.59 {x10E6/uL} (Normal) Range: 3.77-5.28 WBC 6.6 {x10E3/uL} (Normal) Range: 3.4-10.8 :30 Metabolic Panel, Comments: PATIENT WAS FASTINGPERFORMED BY: CuedSt. Joseph's [facility] HospitalQcizwc36[address] [facility] [id number] Information: [id number] Comprehensive (85401) ALT (SGPT) 14 [iU]/L (Normal) Range: 0-32 [...] mg/dL (Normal) Range: 65-99 :30 Lipid Panel (71089) Comments: PATIENT WAS FASTINGPERFORMED BY: [facility]sAsc[facility] St[facility] Hospital[address] [facility] [id number] LDL/HDL Ratio 3.6 {ratio_units} (Abnormal) Range: 0.0-3.2 [...] Cholesterol, Total 218 mg/dL (Abnormal) Range: 100-199 85-Tvs-98379:30 Hemoglobin Glyclated (HGB A1C) Comments: PATIENT WAS FASTINGPERFORMED BY: [employer] [facility] [id number]; apt. 4-4 (92548) Hemoglobin A1c 5.8 % (Abnormal) Range: 4.8-5.6 Comments: . Pre-diabetes: 5.7 - 6.4 Diabetes: >6.4 Glycemic control for adults with diabetes: <7.0 25-Ckc-451282:59 Urinalysis, Office (54331) UA - LEUKOCYTE ESTERASE Negative (Normal) UA - NITRITE Positive (Normal) URINE UROBILINGN FRANKO TIMED 2 mg/dL (Normal) UA - PROTEIN Negative mg/dL (Normal) UA - PH 5 (Abnormal) UA - BLOOD Negative (Normal) UA - SPECIFIC GRAVITY 1.020 (Normal) UA - KETONES Negative mg/dL (Normal) UA - BILIRUBIN Negative (Normal) UA - GLUCOSE Negative (Normal) 81-Hvq-30427:00 Anticardiolip Ab, IgA/G/M, Comments: PATIENT WAS FASTINGPERFORMED BY: tu.nr Yynecn[address] [facility] [id number] BY: tu.nr ZFJ1601 [facility] [id number] Qn Anticardiolipin Ab,IgA,Qn <9 {APL_U/mL} (Normal) Range: [...] Positive: >20 - 80 High Positive: >80 13-Zws-766225:37 Basic Metabolic Profile (BMP) Comments: Serial Specimen #1, #2 or #3? 1'TROP' Serial specimen #1, #2, #3, or #4: 1Test performed at:[facility] [address] [place] [address] GAP 7 (Normal) Range: 5-15 [...] Comments: Please note revised CREATININE reference range efbpdslyv59/22/2015. BUN 16 mg/dL (Normal) Range: 7-18 GLU 134 mg/dL (Abnormal) Range: 70-110 Comments: Fasting Glucose result greater than or equal to 126 mg/dLsuggests DIABETES MELLITUS per A.D.A. criteria. 19-Lmo-437505:37 CBC W/Diff, Automated Comments: Test performed at:[facility] Ilxhflzehv2107 [facility] [place] [address] Absolute Lymph 2.35 {X10_3/ul} (Normal) [...] 4.2-5.4 WBC 7.4 K/mm3 (Normal) Range: 4.4-11.0 35-Mls-089749:37 CK-MB Quantitative and Index Comments: Serial Specimen #1, #2 or #3? 1'TROP' Serial specimen #1, #2, #3, or #4: 1Test performed at:[facility] Cwgwxnyje[address] [place] [address] CPKMB 0.8 ng/mL (Normal) Range: 0.0-5.0 Comments: CK-MB and RI Interpretation MB Relative Index Non-AMI <or= 5 NA Indeterminate > 5 <or= 4 AMI > 5 > 4 CPK TOTAL 80 U/L (Normal) Range: 26-192 22-Ouk-854445:37 Troponin-I Comments: Serial Specimen #1, #2 or #3? 1'TROP' Serial specimen #1, #2, #3, or #4: 1Test performed at:[facility] Lbeurnahdt[address] [place] [address] TROPONIN-I < 0.02 ng/mL (Normal) Comments: TROPONIN-I EXPECTED VALUES <0.05 NEGATIVE 0.06 - 0.59 AT RISK OF MS > OR = 0.60 SUGGEST MS 80-Anu-967054:59 D-Dimer (01596) Comments: PATIENT NOT FASTINGPERFORMED BY: Hexaformer[address] [id number] BY: tu.nr Nwywkl8[address] [facility] [id number] D-Dimer 0.59 {mg/L_FEU} (Abnormal) Range: 0.00-0.49 Comments: In conjunction with a non-high clinical probability assessment, anormal (<0.50 mg/L FEU) result excludes deep vein thrombosis (DVT)and pulmonary embolism (PE) with high sensitivity. 03-Qfu-58213:00 LIPID PANEL (07163) Comments: PATIENT WAS FASTINGPERFORMED BY: CB [employer] Xxidsm[address] [facility] [id number] BY: [employer] MDW4454 [facility] [id number] LDL/HDL Ratio 3.1 {ratio_units} (Normal) Range: 0.0-3.2 [...] Cholesterol, Total 177 mg/dL (Normal) Range: 100-199 92-Oor-085385:59 Protein S Profile Comments: PATIENT NOT FASTINGPERFORMED BY: Cued[address] [id number] BY: CuedSt. Joseph's [facility] HospitalEzhefs[address] [facility] [id number] Inf ormation: [id number] (79656) Protein S-Functional 119 % (Normal) Range: 60-145 Protein S, Free 108 % (Normal) Range: 56-124 Protein S, Total 137 % (Normal) Range: 58-150 89-Vna-109652:59 Protein C Profile Comments: PATIENT NOT FASTINGPERFORMED BY: [employer] [id number] BY: CuedRegina [place] [address]754[address] [facility] [id number] (66041) Protein C-Functional 120 % (Normal) Range: 74-151 Protein C Antigen 104 % (Normal) Range: 70-140 43-Rpl-35443:00 Homocysteine, Plasma Comments: PATIENT WAS FASTINGPERFORMED BY: CuedRegina [place] [address]754[address] [facility] [id number] BY: [facility] DesignsS[facility] SWU9978 [facility] [id number] (18464) Homocyst(e)ine, Plasma 11.2 umol/L (Normal) Range: 0.0-15.0 03-Ukl-264281:59 ANTITHROMBIN III ACTIVTY Comments: PATIENT NOT FASTINGPERFORMED BY: Cued[address] [id number] BY: CuedSt. Joseph's [facility] HospitalXitjcq09[address] [facility] [id number] (03726) Antithrombin Antigen 94 % (Normal) Range: 75-130 Antithrombin Activity 108 % (Normal) Range: 75-135 41-Kev-571974:59 CLOTTING FACTOR II Comments: PATIENT NOT FASTINGPERFORMED BY: [employer] [id number] BY: CuedSt. Joseph's [facility] HospitalHjbuvw[address] [facility] [id number] (82479) Factor II Activity 113 % (Normal) Range: 75-130 50-Skq-51014:00 Factor V Leiden (71567) Comments: PATIENT WAS FASTINGPERFORMED BY: [facility] Uqsjun[address] [facility] [id number] BY: [facility] GIC8479 [facility] [id number] Factor V Leiden FVNEG3 (Normal) Comments: Result: [...] in the workup for venous thrombosis include [id number] mutation in the factor II (prothrombin) gene,protein S and C deficiency, and antithromb in deficiencies.Anticardiolipin antibody and lupus anticoagulant analysismay be appropriate for certain patients, as well ashomocysteine levels. .Contact your local [facility] for information on how to orderadditional testing if desired. .Genetic counselors are available for health care* providers to discuss results at [phone] [place] .Methodology:DNA analysis of the Factor V gene [...] Orta, PhDMichael Singh, PhDNgozi Cardozo, PhD . 32-Nel-22699:00 MTHFR (03950) Comments: PATIENT WAS FASTINGPERFORMED BY: [facility] Pjeshc[address] [facility] [id number] BY: [facility] MXU5564 [place] [id number] MTHFR, DNA Analysis GQ1804 (Normal) Comments: Result: C677T/X8387ZVqw mutations (C677T and Y0388E) identified .Interpretation: .This individual is heterzygous for both the MTHFR C677T and J0611Shboqwsif (one copy of each). Compound heterozygosity for the O843Bvgs Y8192R variants is unlikely to be of clinical [...] discuss these results with healthcare providers at [phone]. .Methylenetetrahydrofolate reductase (MTHFR) is a ke y enzyme in thefolate pathway and is responsible for the metabolism of homocysteine.There are two common variants in the MTHFR gene, c.655C>T(p.Vcy717Rqb), referred to as C677T, and c.1286A>C (p.G ur008Kgi),referred to as U2178G. Individuals homozygous for C677T (two copiesof the variant), have decreased activity of the MTHFR enzyme and apredisposition to hyperhomocysteinemia, particularly when d eficient infolate. Hyperhomocysteinemia is a risk factor for venous thrombosisand coronary artery disease and is associated with an increased riskof open neural tube defects. The C677T variant reilly s notindependently increase risk of these conditions in the absence ofhyperhomocysteinemia. The M0765J variant is not associated withelevated homocysteine levels unless a C677T variant is also present;h owever, the clinical significance of heterozygosity for both J812Xbib G8848X is controversial. Population data suggest that these twovariants are not present on the same chromosome, but rare exceptionsh ave been reported of triple variant MTHFR genotypes (ie. homozygousfor one variant and heterozygous for the other). Homozygosity hfaU987L has an estimated frequency of 10% to [...] PhDNgozi Cardozo, PhD :52 HgA1C , Office (42883) HgA1C , Office 5.8 % (Normal) Range: 4.6 - 7.1 :31 CBC With Differential/Platelet Comments: PATIENT WAS FASTINGPERFORMED BY: [facility] Oglisg[address] [facility] [id number] Information: [id number] Immature Grans (Abs) 0.0 {x10E3/uL} (Normal) Range: [...] 3.77-5.28 WBC 5.3 {x10E3/uL} (Normal) Range: 3.4-10.8 56-Cry-40719:31 Comp. Metabolic Panel (14) Comments: PATIENT WAS FASTINGPERFORMED BY: LabCoSt. Joseph's Wayne HospitalTmtlxx11[address] [facility] [id number] ALT (SGPT) 18 [iU]/L (Normal) Range: 0-32 [...] Glucose, Serum 103 mg/dL (Abnormal) Range: 65-99 03-Cmc-683507:04 Urinalysis, Office (96351) UA - PH 6.0 (Normal) UA - LEUKOCYTE ESTERASE Negative (Normal) UA - NITRITE Negative (Normal) URINE UROBILINGN FRANKO TIMED 2 mg/dL (Normal) UA - PROTEIN Negative mg/dL (Normal) UA - BLOOD Negative (Normal) UA - SPECIFIC GRAVITY 1.025 (Normal) UA - KETONES Negative mg/dL (Normal) UA - BILIRUBIN Negative (Normal) UA - GLUCOSE Negative (Normal) 21-Sqc-51171:51 POTASSIUM SERUM (96110) Comments: today; PATIENT NOT FASTINGPERFORMED BY: LabCoSt. Joseph's Wayne HospitalQaetpk7913 [facility] [id number] Information: [id number] Potassium, Serum 3.8 mmol/L (Normal) Range: 3.5-5.2 9-Jom-833242:30 Basic Metabolic Profile (BMP) Comments: 'TROP' Serial specimen #1, #2, #3, or #4: 1'CKMB' Serial Specimen #1, #2 or #3? 1Test performed at:[facility] Zcwhgctwio[address] [place], [place] [address] GAP 3 (Abnormal) Range: 5-15 CO2 34.0 [...] 7-18 GLU 89 mg/dL (Normal) Range: 70-110 6-Mvp-941441:30 CBC W/Diff, Automated Comments: Test performed at:[facility] Diuuebqspl[address] [place] [address] Absolute Lymph 2.01 {X10_3/ul} (Normal) Range: 0.83-4.51 [...] Specimen #1, #2 or #3? 1Test performed at:[facility] Nrrjmqftpc0882 [facility] [place] [address] CPKMB 0.8 ng/mL (Normal) Range: 0.0-5.0 Comments: CK-MB and RI Interpretation MB Relative Index Non-AMI <or= 5 NA Indeterminate > 5 <or= 4 AMI > 5 > 4 CPK TOTAL 64 U/L (Normal) Range: 26-192 6-Akz-368317:30 D-Dimer Quantitative (DVT/PE) Comments: Test performed at:[facility] Phqfkmyxab1166 [facility] [place] [address] D-DIMER QUANT 1.86 {FEU/ug/m} (Abnormal) Range: 0.27-0.49 Comments: D-Dimer ELEVATED (>0.49): Additional studies and clinicalassessments are indicated to conclude diagnosis of:Deep Vein Thrombosis (DVT) or Pulmonary Embolism (PE)CRITICAL VALUE REPEATED AND VERIFIED. CALLED TO SHRAVAN.RN07/23/14 1104 Ricci Delgado.RESULTS READ BACK BY SAME. 6-Fpc-949969:30 Troponin-I Comments: 'TROP' Serial specimen #1, #2, #3, or #4: 1'CKMB' Serial Specimen #1, #2 or #3? 1Test performed at:[facility] Aykbghgjcl0756 [facility] [place] [address] TROPONIN-I < 0.02 ng/mL (Normal) Comments: TROPONIN-I EXPECTED VALUES <0.05 NEGATIVE 0.06 - 0.59 AT RISK OF MS > OR = 0.60 SUGGEST MS :18 HgA1C , Office (39614) HgA1C , Office 5.7 % (Normal) Range: 4.6 - 7.1 :18 Blood Glucose , Office (03789) Blood Glucose , Office 106 (Normal) :20 [...] Yellow (Normal) :54 Blood Glucose , Office (85474) Blood Glucose , Office 123 (Normal) Comments: Not Fasting :54 HgA1C , Office (20345) HgA1C , Office 6.0 % (Normal) Range: 4.6 - 7.1 :31 POTASSIUM SERUM (53417) Comments: patient having drawn in 2 wks; PATIENT NOT FASTINGPERFORMED BY: CuedSt. Joseph's [facility] HospitalTimmjx3642 [facility] [id number] Information: [id number] Potassium, Serum 4.0 mmol/L (Normal) Range: 3.5-5.2 :20 Microscopic Examination Comments: PATIENT WAS FASTINGPERFORMED BY: CuedSt. Joseph's [facility] HospitalGbtmav0548 [facility] [id number] Bacteria Few (Normal) Mucus Threads Present (Normal) [...] A POSITIVE (Normal) :20 URINALYSIS, W/ MICRO (62898) Comments: PATIENT WAS FASTINGPERFORMED BY: [facility]sAsc[facility] Hospital[address] [facility] [id number] Microscopic Examination See below: (Normal) Comments: Microscopic was indicated and was performed. Nitrite, Urine Negative (Normal) Urobilinogen,Semi-Qn 1.0 mg/dL (Normal) Range: 0.0-1.9 Bilirubin Negative (Normal) Occult Blood Negative (Normal) Ketones Negative (Normal) Glucose Negative (Normal) Protein Trace (Normal) WBC Esterase 2+ (Abnormal) Appearance Clear (Normal) Urine-Color Yellow (Normal) pH 6.5 (Normal) Range: 5.0-7.5 Specific Daisy 1.023 (Normal) Range: 1.005-1.030 :20 METABOLIC PANEL, COMPREHENSIVE Comments: PATIENT WAS FASTINGPERFORMED BY: CuedSt. Joseph's [facility] HospitalPsjihu4035 [facility] [id number] (12976) ALT (SGPT) 20 [iU]/L (Normal) Range: 0-32 [...] mg/dL (Abnormal) Range: 65-99 :20 LIPID PANEL (47199) Comments: PATIENT WAS FASTINGPERFORMED BY: CuedSt. Joseph's [facility] HospitalTdfjkh6904 [facility] [id number] LDL/HDL Ratio 3.8 {ratio_units} (Abnormal) Range: 0.0-3.2 [...] MANUAL DIFF Comments: PATIENT WAS FASTINGPERFORMED BY: CuedSt. Joseph's [facility] HospitalJdgqer5979 [facility] [id number] Information: [id number] (03734) Immature Grans (Abs) 0.0 {x10E3/uL} (Normal) Range: [...] (Normal) Range: 3.4-10.8 :09 HgA1C , Office (66740) HgA1C , Office 5.8 % (Normal) Range: 4.6 - 7.1 :09 Blood Glucose , Office (77241) Blood Glucose , Office 129 (Normal) Comments: [...] (Normal) Range: 70-110 :17 HgA1C , Office (99330) HgA1C , Office 5.9 % (Normal) Range: 4.6 - 7.1 :17 Blood Glucose , Office (97922) Blood Glucose , Office 107 (Normal) :15 [...] be sent to the patient by [facility] within 30 days. Approximately 10% of breast cancers are not detected by mammography. Anormal mammogram should not delay biopsy of a clinically suspiciousabnormality. Signed:Payton DuttaMarch 15, 2013 at 7:58:55 AM [id number] Signed GP/GP If you are the referring physician and would like to consult with theradiologist who provided this interpretation, please co rodolfoct Unique Yusuf at [phone]. If this radiologist is unavailable, youwill be directed to another radiologist to assist. If you are a patient with a question regarding this report, pleas econtactyour referring physician directly. Professional Interpretation Provided By: Ticket Hoy, Phone , These documents contain legally protected [...] 03/15/13 0837 Sign by: Aaron Salgado MD 90-Uee-85398:25 Blood Glucose , Office (57806) Blood Glucose , Office 134 (Normal) 11-Ssz-78655:25 HgA1C , Office (96470) HgA1C , Office 5.8 % (Normal) Range: 4.6 - 7.1 5-Jwv-922315:22 PELVIC (NON ) Radiology Report See Note [...] Salgado M.D.January 23, 2013 at 2:31:38 PM [id number] Signed GP/GP If you are the referring physician and would like to consult with theradiologist who provided this interpretati on, please contact Unique Yusuf at [phone]. If this radiologist is unavailable, youwill be directed to another radiologist to assist. If you are a patient with a question regarding this report, pleasecontactyour referring physician directly. Professional Interpretation Provided By: Ticket Hoy, Phone , These documents contain legally protected [...] size of the right kidney. The right dhnbaypjvcnyjs81.4 cm. Ambika l renal cortex. The right cortex measures 1.0 cm. Thereisa 1.1 cm x 1.0 cm x 0.9 cm cyst in the inferior pole. There is no righthydronephrosis. Left Kidney: Normal size of the left kidney. The left kidney emwlwopf09.5cm. Normal renal cortex. The left cortex measures 1.9 cm. There is nodemonstrated renal mass or cyst. There is no left hydronephrosis. Aorta: Unremarkable. I.V.C.: The IVC is pa tent. There is no ascites. IMPRESSION:Fatty infiltration of the liver. The patient is status postcholecystectomy. Signed:Aaron Salgado M.D.January 23, 2013 at 2:2 8:11 PM [id number] Signed GP/GP If you are the referring physician and would like to consult with theradiologist who provided this interpretation, please contact Payton Yusuf at [phone]. If this radiologist is unavailable, youwill be directed to another radiologist to assist. If you are a patient with a question regarding this report, pleasecontactyour referring phys ician directly. Professional Interpretation Provided By: Ticket Hoy, Phone , These documents contain legally protected [...] Salgado M.D.January 23, 2013 at 2:31:38 PM [id number] Signed GP/GP If you are the referring physician and would like to consult with theradiologist who provided this interpretati on, please contact Unique Yusuf at [phone]. If this radiologist is unavailable, youwill be directed to another radiologist to assist. If you are a patient with a question regarding this report, pleasecontactyour referring physician directly. Professional Interpretation Provided By: Ticket Hoy, Phone , These documents contain legally protected [...] 01/24/13 1043 Sign by: Aaron Salgado MD 32-Onc-429173:11 CBC, Platelets & Auto Comments: PATIENT NOT FASTINGPERFORMED BY: LabCoSt. Joseph's [facility] HospitalQrqacu6591 [facility] [id number] Information: [id number] Diff (94971) Immature Grans (Abs) 0.0 {x10E3/uL} (Normal) Range: [...] (Normal) Range: 70-110 :33 HgA1C , Office (52241) HgA1C , Office 5.8 % (Normal) Range: 4.6 - 7.1 :53 METABOLIC PANEL, COMPREHENSIVE Comments: PATIENT WAS FASTINGPERFORMED BY: LabCoSt. Joseph's [facility] HospitalJzyxsr1447 [facility] [id number] (00837) ALT (SGPT) 19 [iU]/L (Normal) Range: 0-32 [...] DIFF Comments: PATIENT WAS FASTINGPERFORMED BY: JERMAINE [employer] [facility] [id number] Information: [id number] (61681) Immature Grans (Abs) 0.0 {x10E3/uL} (Normal) Range: [...] {x10E3/uL} (Normal) Range: 4.0-10.5 :53 LIPID PANEL (44189) Comments: PATIENT WAS FASTINGPERFORMED BY: JERMAINE [place]terPointDublin [place] [id number] LDL/HDL Ratio 3.3 {ratio_units} (Abnormal) Range: 0.0-3.2 LDL Cholesterol Calc 136 mg/dL (Abnormal) Range: 0-99 HDL Cholesterol 41 mg/dL (Normal) Comments: According to ATP-III Guidelines, HDL-C >59 mg/dL is considered anegative risk factor for CHD. VLDL Cholesterol José Luis 45 mg/dL (Abnormal) Range: 5-40 Triglycerides 226 mg/dL (Abnormal) Range: 0-149 Cholesterol, Total 222 mg/dL (Abnormal) Range: 100-199 67-Ypf-40059:51 BILAT SCRN DIGITAL & CAD Radiology Report [...] Salgado M.D.January 18, 2012 at 10:04:04 AM [id number] Signed GP/GP If you are the referring physician and would like to consult with theradiologist who pro vided this interpretation, please contact Unique Yusuf at [phone]. If this radiologist is unavailable, youwill be directed to another radiologist to assist. If you are a patient with a q uestion regarding this report, pleasecontactyour referring physician directly. Professional Interpretation Provided By: Ticket Hoy, Phone , Dictated on 01/18/12 0759 by Damian FLYNN,DavidriClevelandranscribed on 01/18/12 1010 by ITS IMPORTSign by Damian FLYNN,Aaron on 01/18/12 1011 Sign by: Aaron Salgado MD 0-Emh-756890:43 MICROALBUMIN: CREATININE RATIO Comments: PATIENT WAS FASTINGPERFORMED BY: Chimeros Qpqten[address] [facility] [id number] ([id number]) AND (13615) Microalb/Creat Ratio 1.4 {mg/g_creat} (Normal) Range: 0.0-30.0 Microalbumin, Urine 2.3 ug/mL (Normal) Range: 0.0-17.0 Creatinine, Urine 167.9 mg/dL (Normal) Range: 15.0-278.0 3-Eoj-318537:43 METABOLIC PANEL, COMPREHENSIVE Comments: PATIENT WAS FASTINGPERFORMED BY: GoNabit[address] [facility] [id number] (37079) ALT (SGPT) 24 [iU]/L (Normal) Range: 0-40 [...] Glucose, Serum 95 mg/dL (Normal) Range: 65-99 9-Odf-004824:43 LIPID PANEL (19529) Comments: PATIENT WAS FASTINGPERFORMED BY: Pulsar [facility] [id number] LDL/HDL Ratio 3.2 {ratio_units} (Normal) Range: 0.0-3.2 [...] MANUAL DIFF Comments: PATIENT WAS FASTINGPERFORMED BY: GoNabit[address] [facility] [id number] Information: [id number] (57963) Immature Grans (Abs) 0.0 {x10E3/uL} (Normal) Range: [...] (Normal) Range: 4.0-10.5 :18 HgA1C , Office (63854) HgA1C , Office 6.1 % (Normal) Range: 4.6 - 7.1 33-Btk-133608:18 Blood Glucose , Office (02467) Blood Glucose , Office 125 (Normal) 10-Ane-580247:00 Thin prep Pap Comments: Source.............Cervical;EndocervicalNo. of containers..01 CYTYC Thin Prep VialPATIENT NOT FASTINGPERFORMED BY: LabCo28 White Streetzakiyawellspan eph[facility] MANDEEP [id number] Information: [id number] (19464) Note: PAPSMR (Normal) Comments: The Pap smear [...] ; Routine gynecolog ical examina Imelda Batres Administration Physician (ASCP) 56-Rpw-43988:00 THU LEZAMA DIGITAL & CAD Radiology Report [...] 11/04/10619 Sign by: __ Aaron Salgado MD 5-Glh-864744:24 CBC & PLATELETS (AUTO) Comments: PATIENT NOT FASTINGPERFORMED BY: [facility]Co Vqxebk[address] [facility] [id number] Information: [id number]; appt 11/28/10 (65186) MCH 31.6 pg (Normal) Range: 27.0-34.0 MCHC [...] 27 45 63 >63Performed at: - [facility] M[address] [place], [place] [id number] Director: Stefano Mace PhD, Phone: [phone] HDL SIZE <TEST NOT PERFORMED> (Normal) INSULIN [...] TOT 209 mg/dL (Abnormal) LIPIDS . (Normal) 6-Pcq-426902:12 CULT, DP WOUND Comments: COMMENTS: CULTURE, SENSITIVITY,AREOBES, [...] STRIMETHOPRIM/SULFAMETHOXAZ $ <=10 SVANCOMYCIN $ 1 S 3-Yok-470978:10 CBC Comments: COMMENTS: AC ROOM 6 HCT [...] 1 S :56 Blood Glucose , Office (11210) Blood Glucose , Office 102 (Normal) :56 HgA1C , Office (98803) HgA1C , Office 6.1 % (Normal) Range: 4.6 - 7.1 :49 MICROALBUMIN: CREATININE Comments: PATIENT WAS FASTINGPERFORMED BY: [employer]0 [facility] [id number] BY: GoNabit[address] [facility] [id number] RATIO (69884) AND (05737) Microalb/Creat Ratio 2.3 {mg/g_creat} (Normal) Range: 0.0-30.0 Microalbumin, Urine 3.4 ug/mL (Normal) Range: 0.0-17.0 Creatinine, Urine 150.2 mg/dL (Normal) Range: 15.0-278.0 :49 LIPOPROTEIN, BLD, BY NMR Comments: PATIENT WAS FASTINGPERFORMED BY: [employer]7 [employer] [facility] [id number] BY: Magic[employer]70 [facility] [id number] Information: ADD [id number] AND DRAW FEE 99 8215 (25118) LP-IR 83 Comments: The LP-IR Score combines [...] (Abnormal) Choleste 220 mg/dL rol, (Abnormal) Total 19-Clu-80701:49 METABOLIC PANEL, Comments: PATIENT WAS FASTINGPERFORMED BY: Fede [facility] Seg7490 [facility] [id number] BY: JERMAINE [facility] Vetqcd[address] [facility] [id number] COMPREHENSIVE (82160) ALT (SGPT) 22 [iU]/L (Normal) Range: 0-40 [...] Glucose, Serum 107 mg/dL (Abnormal) Range: 65-99 57-Dry-36849:49 LIPID PANEL (68649) Comments: PATIENT WAS FASTINGPERFORMED BY: [employer] [facility] HealthGlobal Acquisition PartnersSheltering Arms HospitalJump On ItPottstown Hospital [id number] BY: Looptlin[address] [facility] [id number] LDL Cholesterol Calc 135 mg/dL (Abnormal) Range: 0-99 LDL/HDL Ratio 4.1 {ratio_units} (Abnormal) Range: 0.0-3.2 VLDL Cholesterol José Luis 52 mg/dL (Abnormal) Range: 5-40 HDL Cholesterol 33 mg/dL (Abnormal) Comments: According to ATP-III Guidelines, HDL-C >59 mg/dL is considered anegative risk factor for CHD. Triglycerides 261 mg/dL (Abnormal) Range: 0-149 Cholesterol, Total 220 mg/dL (Abnormal) Range: 100-199 43-Lkm-54961:49 CBC WITH MANUAL DIFF Comments: PATIENT WAS FASTINGPERFORMED BY: [employer] [facility] [id number] BY: ChimerosSt. Joseph's Wayne HospitalQeqbrz29[address] [facility] [id number] (48351) Baso (Absolute) 0.1 {x10E3/uL} (Normal) Range: 0.0-0.2 [...] 3.80-5.10 WBC 6.7 {x10E3/uL} (Normal) Range: 4.0-10.5 7-Enb-072722:35 MARYJANE CULTURE-OTHER (15163) Comments: PATIENT NOT FASTINGPERFORMED BY: Chimeros [employer] [facility] [id number] Information: SRC:RAH [id number] Result 1 RRF (Normal) Comments: Routine respiratory bin Upper Respiratory Culture Final report (Normal) :07 Rapid Strep Test, Office (71222) Rapid Strep Test, Negative (Normal) Office :2 Potassium, Serum 3.8 mmol/L (Normal) Comments: PATIENT WAS FASTINGPERFORMED BY: ChimerosPresbyterian Española HospitalWytmtp[address] [facility] [id number] Range: 3.5-5.2 06-Qrd-864107:00 BILAT SCRN DIGITAL & CAD Radiology Report See Note (Normal) Comments: Exam Number: [id number] MAMMOGRAM, BILATERAL SCREENING DIGITAL AND CAD HISTORYRoutine [...] werealso examined with computer-aided detection s oftware ([email or web address].). Reported By: KENNA SWEET M.D. 27-Feb-20098:24 Lipid Panel (27819) Comments: PATIENT WAS FASTINGClinical Information: ADD [id number], [id number] PERFORMED BY: MoosCoolAt[facility] Health W[facility]haw [id number] Cholesterol, Total 224 mg/dL (Abnormal) Range: 100-199 HDL Cholesterol 31 mg/dL (Abnormal) Comments: According to ATP-III Guidelines, HDL-C >59 mg/dL is considered anegative risk factor for CHD. LDL Cholesterol Calc 122 mg/dL (Abnormal) Range: 0-99 LDL/HDL Ratio 3.9 {ratio_units} (Abnormal) Range: 0.0-3.2 Triglycerides 354 mg/dL (Abnormal) Range: 0-149 VLDL Cholesterol José Luis 71 mg/dL (Abnormal) Range: 5-40 30-Cxg-997353:16 JESUS ALBERTO (ANTINUCLEAR ANTIBODY) Comments: PATIENT NOT FASTINGPERFORMED BY: Xiny[facility] NetworkUNC Health Rex [id number] (76219) Antinuclear Antibodies Direct Negative (Normal) 58-Lsh-592859:16 C-REACTIVE PROTEIN (65593) Comments: PATIENT NOT FASTINGPERFORMED BY: Xiny[facility] NetworkUNC Health Rex [id number] C-Reactive Protein, Quant 8.0 mg/L (Abnormal) Range: 0.0-4.9 87-Jzl-093624:16 CBC (AUTO) (53081) Comments: PATIENT NOT FASTINGPERFORMED BY: [facility] [facility] [id number] Hematocrit 42.4 % (Normal) Range: 34.0-44.0 Hemoglobin 14.4 g/dL (Normal) Range: 11.5-15.0 MCH 31.9 pg (Normal) Range: 27.0-34.0 MCHC 34.0 g/dL (Normal) Range: 32.0-36.0 MCV 94 fL (Normal) Range: 80-98 Platelets 160 {x10E3/uL} (Normal) Range: 140-415 RBC 4.52 {x10E6/uL} (Normal) Range: 3.80-5.10 RDW 14.1 % (Normal) Range: 11.7-15.0 WBC 7.6 {x10E3/uL} (Normal) Range: 4.0-10.5 44-Glz-451785:16 Folate (87567) Comments: PATIENT NOT FASTINGPERFORMED BY: [place] [id number] [facility] [id number] Folate (Folic Acid), Serum 17.4 ng/mL (Normal) Comments: Indeterminate: 3.4 - 5.4 Deficient: <3.4 27-Fsg-961545:16 METABOLIC PANEL, COMPREHENSIVE Comments: PATIENT NOT FASTINGPERFORMED BY: [place] [address] [facility] [id number] (19635) A/G Ratio 1.2 (Normal) Range: 1.1-2.5 Albumin, [...] Sodium, Serum 142 mmol/L (Normal) Range: 135-145 42-Fpb-242267:16 RHEUMATOID FACTOR-QUANT (80568) Comments: PATIENT NOT FASTINGPERFORMED BY: LiftUNC [facility] Rex [id number] RA Latex Turbid. 9.3 {IU/mL} (Normal) Range: 0.0-13.9 95-Ncb-288572:16 SED RATE ERYTHROCYTE (48546) Comments: PATIENT NOT FASTINGPERFORMED BY: Cuedrp [employer] [facility] GroupUNC Health Rex [id number] Sedimentation Rate-Westergren 21 mm/h (Normal) Range: 0-30 78-Ser-443261:16 TSH (00611) Comments: PATIENT NOT FASTINGPERFORMED BY: [employer]70 Lulu*[employer] Fashion LoungeUNC Health Rex [id number] TSH 2.690 {uIU/mL} (Normal) Range: 0.450-4.500 17-Ogg-398352:16 VITAMIN B-12 (CYANOCOBALAMIN) Comments: PATIENT NOT FASTINGPERFORMED BY: [facility]iftUNC [facility] [id number] (61930) Vitamin B12 348 pg/mL (Normal) Range: 211-911 :35 Lipid Panel (07138) Comments: PATIENT WAS FASTINGClinical Information: ADD [id number], [id number] PERFORMED BY: JERMAINE [facility] Juifsi[address] [place] [id number] Cholesterol, Total 208 mg/dL (Abnormal) Range: 100-199 HDL Cholesterol 32 mg/dL (Abnormal) Comments: According to ATP-III Guidelines, HDL-C >59 mg/dL is considered anegative risk factor for CHD. LDL Cholesterol Calc 124 mg/dL (Abnormal) Range: 0-99 LDL/HDL Ratio 3.9 {ratio_units} (Abnormal) Range: 0.0-3.2 Triglycerides 261 mg/dL (Abnormal) Range: 0-149 VLDL Cholesterol José Luis 52 mg/dL (Abnormal) Range: 5-40 :47 HgA1C , Office (86212) HgA1C , Office 5.8 % (Normal) Range: 4.6 - 7.1 :47 Blood Glucose , Office (12942) Blood Glucose , Office 128 (Normal) :43 Urinalysis, Office (03417) UA - LEUKOCYTE ESTERASE Trace (Normal) UA [...] Indication: Acute sinusitis Planned Observations LIPID PANEL (89255)Indication: Mixed hyperlipidemia On: 5-Ugp-770645:45 Request Platelet 25046 (citrate, nonclumping tube)Indication: Thrombocytopenia, unspecified On: 22-Jul-20178:19 Request Metabolic Panel, Comprehensive (08109)Indication: Benign essential hypertension On: :46 Request MICROALBUMIN: CREATININE RATIO (51383) AND (46228)Indication: Benign essential hypertension On: :45 Request URINALYSIS (34403)Indication: Benign essential hypertension On: :45 Request CBC WITH MANUAL DIFF (80280)Indication: Benign essential hypertension On: :45 Request Platelet Count, Citrated (52178)Indication: Thrombocytopenia, unspecified On: :11 Request LIPOPROTEIN, BLD, BY NMR (03818)Indication: Mixed hyperlipidemia On: :07 Request Lipase (53736)Indication: Abdominal pain On: :24 Request Comments: add to hospital labs. Amylase (85789)Indication: Abdominal pain On: :24 Request Comments: add to hospital labs. Antiphospholipid atb (54008)Indication: Pulmonary emboli On: : Request ANTICOAG ANTTHROMB III & ASSAY (40754)Indication: Pulmonary emboli On: :27 Request METABOLIC PANEL, COMPREHENSIVE (89972)Indication: Benign essential hypertension On: :37 Request Comments: in three months (approximately) CBC with auto diff (23396)Indication: Benign essential hypertension On: :37 Request Comments: in three months (approximately) Troponin I (65957)Indication: Chest pain at rest On: : Request CPK MB FRACTION (87896)Indication: Chest pain at rest On: 9-Qcz-341192:01 Request CREATINE KINASE TOTAL (56962)Indication: Chest pain at rest On: 0-Kff-988939:01 Request D-Dimer (99347)Indication: Chest pain at rest On: 2-Wtg-759981:00 Request Metabolic Panel, Basic (27246)Indication: Chest pain at rest On: :58 Request CBC (Auto) (62575)Indication: Chest pain at rest On: :58 Request URINALYSIS, W/ MICRO (18695)Indication: Benign essential hypertension On: :29 Request METABOLIC PANEL, COMPREHENSIVE (07791)Indication: Benign essential hypertension On: :29 Request LIPID PANEL (67739)Indication: Benign essential hypertension On: :29 Request CBC W/AUTO DIFF WBC (54191)Indication: Benign essential hypertension On: :29 Request URINALYSIS (88155)Indication: UTI (lower urinary tract infection) On: :49 Request LIPID PANEL (83250)Indication: Benign essential hypertension On: :27 Request CBC WITH MANUAL DIFF (04613)Indication: Thrombocytopenia, unspecified On: :27 Request METABOLIC PANEL, COMPREHENSIVE (74554)Indication: Benign essential hypertension On: :27 Request TSH (THYROID STIMULATING HORMONE) (47215)Indication: Post-menopausal bleeding On: :37 Request PROLACTIN (09851)Indication: Post-menopausal bleeding On: :37 Request HEPATIC FUNCTION PANEL (38406)Indication: Hyperglyceridemia On: :05 Request LIPOPROTEIN, BLD, BY NMR (07055)Indication: Hyperglyceridemia On: :04 Request CBC, Platelets & Auto Diff (74531)Indication: Thrombocytopenia, unspecified On: :04 Request Comments: citrate tube Potassium Serum (75985)Indication: Hypokalemia On: 39-Ifc-372792:36 Request Planned Encounters Medical; [facility] Exam (DB Nurse) - On: 26-Jul-2018 8:00 [facility] SUZY Spencer; [facility] Exam (Doctor) - On: 16-Aug-2018 8:00 [facility] Kelly Hannah MD, MD, Dana M Planned Procedures EKG (87848)By: Kelly Hannah MD On: 02-Dec-2017 Kelly Espinal MD Radiology - Foot - LeftBy: Brielle On: 12-Aug-2017 Kelly Beltrán MD, MD, Dana M TDAP VACCINE >7 IM (04916)By: On: 22-Jul-2017 Kelly Espinal MD, MD, Dana Comments: tdap 0.5mL prefilled syringelot:1MW33lbs:10/2019L DELT IMpt tolerated wellAD DIRECTOR PAYMENT M MAMMOGRAM BREAST BILATERAL SCREENING On: 02-Apr-2017 Intent DIGITAL (45015)By: Kelly Hannah MD, MD, Dana M Kenalog Injection, 10 mgm On: 15-Feb-2017 Intent (J3301)By: Kelly Hannah MD Comments: lot numer [id number] 05/08 marcaine [id number] 06/21/18 Kelly Hannah MD Echo CompleteBy: Kelly Hannah MD On: 10-Sep-2016 Intent Kelly Hannah MD Comments: rule out pericarditis and ? pericardial fluid EKG (19935)By: Kelly Hannah MD On: 04-Sep-2016 Intent Kelly Hannah MD Comments: see scanned document of test done to see results reviewed today with patient Bone Density StudyBy: Brielle FLYNN, On: 09-Jun-2016 Intent Kelly Hernandez MD Kenalog Injection, 10 mgm On: 21-Apr-2016 Intent (J3301)By: Kelly Hannah MD Comments: buupivacaine lot [id number] 06-21-17 kenalog [id number] 09-05 Kelly Hannah MD DOPPLER ULTRASOUND OF RIGHT UPPER On: 20-Apr-2016 Intent EXTREMITY FOR VENOUS THROMBOEMBOLISM (78190)By: Kelly Hannah MD, MD, Dana M MAMMOGRAM, SCREENING, BOTH BREAST On: 27-Feb-2016 Intent (17206)By: Kelly Hannah MD, MD, Dana M Venous Doppler - BothBy: Brielle FLYNN, On: 06-Dec-2015 Intent Kelly Hernandez MD Comments: lower legs rule out DVT ADMINISTRATION OF INFLUENZA VIRUS On: 18-Apr-2015 Intent VACCINE (G0008)By: Kelly Hannah MD Comments: Lot:[id number]:11-03Route:IMLocation:Rt deltoiiddose: .5mlGiven by:Kelly Potter MD FLU VAC, SPLIT, >3 YEARS, INTRAMUSC On: 18-Apr-2015 Intent (06386)By: Kelly Hannah MD Comments: Lot #:[id number] date:Amount given:0.5mlRoute: IMSite given:L DltdGiven by: Peyton CHAMPION and ABN signed Quad Flu Kelly Hannah MD BILATERAL MAMMOGRAMS (19300)By: On: 05-Nov-2014 Intent Kelly Hannah MD, MD, Dana M CT - Chest (IV Contrast Needed)By: On: 23-Jul-2014 Intent Kelly Hannah MD, MD, Dana M COMPUTED TOMOGRAPHY ANGIOGRAPHY OF On: 23-Jul-2014 Intent CHEST WITH AND WITHOUT CONTRAST Comments: rule out PE (80863)By: Kelly Hannah MD, MD, Dana M EKG (99412)By: Lindsey Verde DO On: 05-Jul-2014 Intent Comments: sinus johanny with no chg MAMMOGRAM, SCREENING, BOTH BREAST On: 26-Apr-2014 Intent (23486)By: Kelly Hannah MD, MD, Dana M BILATERAL MAMMOGRAMS (38737)By: On: 27-Mar-2014 Intent Kelly Hannah MD, MD, Dana M IMMUNIZ ADMNIN, 1 VAC, SNGL/COMBO On: 27-Mar-2014 Intent (52715)By: Kelly Hannah MD Comments: Lot #[id number]-L dltd, IMDose prefilled syringegiven by:MLongJOENVIS and ABN signed Kelly Hannah MD FLU VAC, SPLIT, >3 YEARS, INTRAMUSC On: 27-Mar-2014 Intent (73309)By: Kelly Hannah MD, MD, Dana M Eprescribed prescriptions (G8553)By: On: 10-Oct-2013 Intent Kelly Hannah MD, MD, Dana M Phenergan Injection, up to 50 mg On: 22-Sep-2013 Intent (J2550)By: Nona Whiting CNP Comments: [id number], IM Nyla, DIRECTOR PAYMENT INFUSION, NORMAL SALINE SOLUTION , On: 22-Sep-2013 Intent 1000 CC (Special Coverage Instructions Apply. See MCM: 2049) (J7030)By: Nona Whiting CNP HYDRATION IV INFUSION, INIT On: 22-Sep-2013 Intent (08774)By: Nona Whiting CNP Eprescribed prescriptions (G8553)By: On: 10-Jul-2013 Intent Nathalie Nicole Breast Screening - BilateralBy: On: 06-Feb-2013 Intent Kelly Hannah MD, MD, Dana M IMMUNIZ ADMNIN, 1 VAC, SNGL/COMBO On: 06-Feb-2013 Intent (38441)By: [place] (23070)By: Tj, On: 06-Feb-2013 Intent SUZY Ultrasound - Abdomen Complete & On: 18-Jan-2013 Intent PelvisBy: Nona Whiting CNP EKG (07313)By: Kelly Hannah MD On: 12-Jul-2012 Intent Kelly Hannah MD Comments: see scanned document of test done to see results reviewed today with patient Eprescribed prescriptions (G8553)By: On: 12-Jul-2012 Intent Long DIRECTOR PAYMENT, Nyla L MAMMOGRAM, SCREENING, BOTH BREASTS On: 06-Oct-2011 Intent (73780)By: Kelly Hannah MD Comments: 11-04-11 Kelly Hannah MD MAMMOGRAM, SCREENING, BOTH BREASTS On: 28-Nov-2010 Intent (63201)By: Kelly Hannah MD, MD, Dana M MAMMOGRAM, SCREENING, BOTH BREASTS On: 23-Oct-2010 Intent (20485)By: Kelly Hannah MD, MD, Dana M EEGBy: Lindsey Verde DO On: 20-Aug-2010 Intent EKG (97428)By: Kelly Hannah MD On: 20-Dec-2009 Intent Kelly Hannah MD EKG (33255)By: Kelly Hannah MD On: 17-Jan-2009 Intent Kelly Hannah MD MAMMOGRAM, SCREENING, BOTH BREASTS On: 17-Jan-2009 Intent (01035)By: Kelly Hannah MD, MD, Dana M Pulse Oximetry (38236)By: Yung, On: 04-Jul-2008 Intent Gabriela Comments: 98% Phenergan Injection, up to 50 mg On: 25-Apr-2008 Intent (J2550)By: Nona Whiting CNP Comments: 25mg given IMAmt: 1mlLot: [id number]: 03/2010Route: IMSite: left hipTolerated: wellGiven By: NATASHA Plata INFUSION, NORMAL SALINE SOLUTION , On: 25-Apr-2008 Intent 1000 CC (Special Coverage Comments: IV Therapy initiated (Hamzah Black LPN)22G, 1inchSite: right wristTolerated: wellB. NATASHA Mckinnon Instructions Apply. See MCM: 2048) (J7030)By: Nona Whiting CNP HYDRATION IV INFUSION, INIT On: 25-Apr-2008 Intent (19811)By: Nona Whiting CNP FLU VAC, SPLIT, >3 YEARS, INTRAMUSC On: 21-May-2006 Intent (59846)By: SUZY Spencer IMMUNIZ ADMNIN, 1 VAC, SNGL/COMBO On: 21-May-2006 Intent (22240)By: SUZY Spencer Planned Medications INFUSION, NORMAL SALINE [...] for Tdap vaccination (Renamed from Need for ukfpkkheyp-dygretx-gysfueljc (Tdap) vaccine, adult/adolescent), Thrombocytopenia, unspecified Comprehensive Internal [...] Cold Symptoms: Pt just flew home from [place] yesterday.- yellow green nasal discharge- sx for [...]
--- OUTSIDE RECORDS SUMMARY | 2018-07-16 04:36 | XMS RPT_ITS | Continuity of Care Document ---
:1950 Author Organization [facility] Address [facility] [address] [place] [address] Phone Care Team Providers Name Role Phone [...] depression lost job was in . lost [employer] and she has to drive around. life withsomeone OCD, hoarder. on ambien for sleep per Dr. coates. Wellbutrin start but had insomni a in past. working with [employer]. doing okay on incresae welbutrin.tried Effexor, paxil [...] adipex and topamax. 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 [...] 18-Apr-2015 End : 19-Apr-2015 Inactive BD Disp Buffalo 30G X 1/2 Miscellaneous 1 (one) Misc [...] Inactive Comments:Medication taken as needed. called to [facility] 07-30-09 erussell disp 4 ounces no refills INDOMETHACIN, 50MG (Oral Capsule) 1 (one) Capsule Capsule bid - tid for 5 days with food for 0 days Quantity: 15 {Capsule} Refills: 0 Ordered:15-Feb-2015 USZY Spencer Start : 05-Jul-2014 End : 15-Feb-2015 [...] Quantity: 30 {Tablet} Refills: 0 Ordered:15-Feb-2015 SUZY pSencer Start : 23-Jul-2014 End : 15-Feb-2015 Inactive [...] Extended Release) 1 (one) Tablet ER at [facility] for 14 days for 0 days Quantity: 14 {Tablet_ER} Refills: 0 Ordered:02-May-2010 SUZY Spencer Start : 20-Dec-2009 End : 02-May-2010 Inactive NYSTATIN, 275312HFWA/ML (Mouth/Throat Suspension) 15 Suspension qid swish and swallow for 0 days Quantity: 450 {Milliliter} Refills: 0 Ordered:20-Aug-2010 Suzette Black LPN Start : 04-Aug-2010 End : 20-Aug-2010 Inactive PANTOPRAZOLE SODIUM, 40MG (Oral Tablet Delayed Release) 1 (one) Tablet DR daily for 0 days Quantity: 30 {Tablet} Refills: 6 Ordered:06-Dec-2015 SUZY Spencer Start : 20-Apr-2015 End : 06-Dec-2015 Inactive Pen Buffalo 5/16 31G X 8 MM Miscellaneous 1 [...] Leanne Marie Start : 29-Jul-2009 Inactive ZOSTAVAX, 55362JYW/0.65ML (Subcutaneous Solution Reconstituted) uad For Solution one [...] epig was in hospital and work up [facility] last dipper and stress test. ppi and carafate helping. [...] for Tdap vaccination (Renamed from Need for hwxkhbwmkf-nvfjsfy-zvecrrsuk (Tdap) vaccine, adult/adolescent) (Z23, V06.1) Status: Resolved [...] 2007, 2013 bilateral LEFT HEART CARDIAC CATH (97034) Completed Comments: Dr. Alexander nasal abscess I and D 04-30 Completed Date Value Details 03-Mar-2018 Inital Evaluation (1) - PT Result: Comments: See Note; NOTES: [facility] [address] [place] [address] Fax REHABILITATION SERVICES INITIAL EVALUATION MR#: [id number] Acct: [id number] Name: DIANA ESCUDERO Rep #: [id number] : 1950 68 From: Lazaro Jackson DPT Referring Dr.: GENOVEVA Myers Status: REG RCR Insurance: [employer] SELF PAY INSURANCE Patient's Visit Information [...] stabing pain (8/10) at rest. 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 Please let me know if there are questions or concerns regarding this plan of care. Physician Signature: Date: <Electronically signed by Lazaro Jackson DPT&amp ;#62; 03/03/18 3920 CC: GENOVEVA Myers; Kelly Hannah MD CLS Signed For Medicare only, by signing this I certify the plan of care. Physicians Signature Date 16-Feb-2018 12 Lead Electrocardiogram Result: Comments: See Note; NOTES: [facility] Cardiovascular Services [address] [place] [address] 12 Lead EKG 02/14/18 1459 MR#: [id number] Acct: [id number] Name: DIANA ESCUDERO Rep #: [id number] : 1950 68 From: Harris Brandt MD [...] Int : 401 ms Sinus bradycardia Inferior OK, age undeterm ined, cannot be excluded Confirmed by KEVIN FLYNN, HARRIS ([id number]), material expeditor SHIELA DOWELL (56) on 02/16/2018 1:34:57 PM Referred By: BRIEN Confirmed By:HARRIS BRANDT MD 02/16/18 1335 Date __ Harris Brandt MD CC: Kelly Hannah MD; Kasi Worley MD Signed 15-Feb-2018 Emergency Department Summary Result: Comments: See Note; NOTES: [facility] Medical Records Department [address] [place] [address] Emergency Department Summary 02/14/18 1636 MR#: [id number] Acct: [id number] Name: DIANA ESCUDERO Rep #: [id number] : 1950 68 From: Kasi Worley MD [...] score 1. This note was generated with [employer] dictation software. It may contain incorrect words, [...] your Primary Care Provider. Call [facility] ([phone]) or report to the closest Emergency Room. Call 911 if necessary. 02/15/18 0046 <Electronically signed by Jose Daniel Worley MD> Date Kasi Worley MD Cosigner Signature (If Indicated): Date CC: Kelly Hannah MD 14-Feb-2018 Venous Duplex Lower Extremity Result: Comments: See Note; NOTES: [facility] Cardiovascular Services [address] [place] [address] Venous Duplex US, Unilateral 02/14/18 1549 MR#: [id number] Acct: [id number] Name: DIANA HICKMAN OLGA Rep #: [id number] : 1950 68 From: Abdoulaye Landa MD [...] Dictated: 0 02/14/18 1549 Date Transcribed: 02/14/181740 Field Service Tech: Signed 14-Feb-2018 Chest 1 View (Portable) Result: Comments: See Note; NOTES: [facility] Imaging Services [address] [place] [address] Chest 1 View (Portable) MR#: [id number] Acct: [id number] Name: DIANA ESCUDERO Rep #: [id number] : 1950 F 68 From: Aaron Salgado MD PCP: Kelly Hannah MD Status: [facility] ER Study: Chest 1 View (Portable) Date of Exam: 02/14/18 Exam# [id number] Ordering Dr: Kasi Worley MD STUD Y: [...] Aaron Salgado MD at 15:52 EDT Tel [phone], Service support , CC: Kelly Salgado; Kasi Worley MD Field Service Tech: Signed 24-Jan-2018 Cardiology Visit Report Result: Comments: See Note; NOTES: [facility] [address] [place] [address]. [address] [place] [address] OFFICE VISIT Date of Service: 01/24/18 MR#: [id number] Acct: [id number] Name: DIANA ESCUDERO OLGA Rep #: [id number] : 1950 Provider: Puneet Alexander MD Age/Sex: 67/F Location[place] [facility] [place] Status: Signed HPI HPI Chief [...] Intake Visit Reasons: 6 M FU In [facility] Required: No Allergies simvastatin [From [...] mg PO QDAY 01/24/18 [History Confirmed 01/24/18] [facility] Medical History Obstructive sleep apnea (Chronic) History of pulmonary embolism (Chr onic) Atherosclerosis of coronary artery of [place] heart without angina pectoris (Chronic) Hypertension (Chronic) [...] Plan 1. Atherosclerosis of coronary artery of [place] heart without angina pectoris I25.10 Non Obs [...] 3 Diagnoses Atherosclerosis of coronary artery of [place] heart without angina pect ranulfo I25.10 Hyperlipidemia E78.5 Coding Level of Care Code Off vis,est,level 3 Diagnoses Atherosclerosis of coronary artery of [place] heart without angina pectoris I25.10 Hyperlipidemia E78.5 12/06 1536 <Electronically signed by Puneet Alexander MD> Date [facility] Signature: Date (if applicable) CC: Kelly Hannah MD 12-Aug-2017 Foot min 3 Views Result: Comments: See Note; NOTES: [facility] Imaging Services [address] [place] [address] Foot min 3 Views MR#: [id number] Acct: [id number] Name: DIANA ESCUDERO OLGA Rep #: [id number] : 1950 F 67 From: Aaron Salgado MD PCP: Kelly Hannah MD Status: REG CLI Study: Foot min 3 Views Date of Exam: 08/12/17 Exam# [id number] Ordering Dr: Kelly Hannah MD STUDY: X-RAY [...] Salgado MD 08/08/21 at 14:14 EST Tel [phone], Service support , CC: Kelly Hannah MD Field Service Tech: Signed 05-Aug-2017 TXT - Blood Flow Screening Result: Comments: See Note; NOTES: [facility] Cardiovascular Services [address] [place] [address] 08/05/17 0756 MR#: [id number] Acct: [id number] Name: DIANA ESCUDERO Rep #: [id number] [...] Dictated: 08/05/17 0756 Date T ranscribed: 08/05/172129 Field Service Tech: Signed 15-Jul-2017 Cardiology Visit Report Result: Comments: See Note; NOTES: [facility] [address] [facility] [address] [place] [address] OFFICE VISIT Date of Service: 07/15/17 MR#: [id number] Acct: [id number] Name: DIANA ESCUDERO OLGA Rep #: [id number] : 1950 Provider: Puneet Alexander MD Age/Sex: 67/F [place] [facility] [place]: Signed HPI 6 M FU: Chief [...] Hyperlipidemia (Chronic) Atherosclerosis of coronary artery of [place] heart without angina pectoris (Chronic) Blood glucose [...] she begin an extra I's program in [facility] [place] in order to facilitate and improve her [...] (CAD), BILAT Result: Comments: See Note; NOTES: [facility] Imaging Services [address] [place] [address] SCREENING MAMM (CAD), BILAT MR#: [id number] Acct: [id number] Name: DIANA ESCUDERO OLGA Rep # : [id number] : 1950 F 67 From: Aaron Salgado MD PCP: Kelly Hannah MD Status: REG CL Study: SCREENING MAMM (CAD), BILAT Date of Exam: 04/19/17 Exam# [id number] Ordering Dr: Kelly Hannah MD MAMMOGRAPHY - [...] delay biopsy of a clinically suspicious abnormality. [id number] Electronically Signed: Aaron Salgado MD at 8:33 EDT Tel [phone], Service support , CC: Kelly Hannah MD Field Service Tech: Signed 16-Sep-2016 Echocardiogram Complete Result: Comments: See Note; NOTES: [facility] Cardiovascular Services [address] [place] [address] Echo Complete 09/16/16 0956 MR#: [id number] Acct: [id number] Name: DIANA ESCUDERO Rep #: [id number] : 1950 66 From: Emil Craven MD [...] Dictated: 09/16/16 0956 Date Transcribed: 09/16/16 1145 Field Service Tech: Signed 04-Sep-2016 CTA Chest W/WO Contrast Result: Comments: See Note; NOTES: [facility] Imaging Services [address] [place], [place] [address] [address] Verdana 4d CTA Chest W/WO Contrast MR#: [id number] Acct: [id number] Name: DIANA ESCUDERO Rep #: [id number] : 1950 F 66 From: Aaron Salgado MD PCP: Kelly Hannah MD Status: REG ER Study: CTA Chest W/WO Contrast Date of Exam: 09/04/16 Exam# [id number] Ordering Dr: Leanne Finn STUDY: CTA CHEST [...] Burak Salgado MD at 11:40 EDT Tel [phone], Service support [phone], CC: Leanne Finn MD; Kelly Hannah MD Field Service Tech: Signed 23-Jun-2016 Dexa Bone Density Study (HP) Result: Comments: See Note; NOTES: [facility] Imaging Services [address] [place] [address] Verdana 4d Dexa Bone Density Study (HP) MR#: [id number] Acct: [id number] Name: EDUARDO ESCUDERO Rep #: [id number] : 1950 F 66 From: Aaron Salgado MD PCP: Kelly Hannah MD Status: REG CLI Study: Dexa Bone Density Study (HP) Date of Exam: 06/23/16 Exam# [id number] Ordering Dr: Kelly Posey MD STUDY: DUAL [...] Aaron Salgado MD at 16:05 EST Tel [phone], Service support [phone], CC: Kelly Hannah MD Field Service Tech: Signed 20-Apr-2016 Venous Duplex Lower Extremity Result: Comments: See Note; NOTES: [facility] Cardiovascular Services [address] [place] [address] Venous Duplex US, Unilateral 04/20/16 1428 MR#: [id number] Acct: [id number] Name: DIANA ESCUDERO Rep #: [id number] : 1950 66 From: Marcus Garza MD [...] Date Dictated: 04/20/16 1428 Date Transcribed: 04/20/162149 Field Service Tech: Signed 23-Mar-2016 Bilat Scrn Digital AND CAD Result: Comments: See Note; NOTES: [facility] Imaging Services [address] [place] [address] Verdana 4d Bilat Scrn Digital AND CAD MR#: [id number] Acct: [id number] Name: ANGELA ESCUDERO OLGA Rep #: [id number] : 1950 F 66 From: Aaron Salgado MD PCP: Kelly Hannah MD Status: REG CLI Study: Bilat Scrn Digital AND CAD Date of Exam: 03/23/16 Exam# [id number] Ordering Dr: Kelly Resendiz i, MD MAMMOGRAPHY [...] delay biopsy of a clinically suspicious abnormality. [id number] Electronically Signed: Aaron Salgado MD at 7:51 EDT Tel [phone], Service support [phone], CC: Kelly Hannah MD Field Service Tech: Signed 02-Jan-2016 Venous Duplex Lower Extremity Result: Comments: See Note; NOTES: [facility] Cardiovascular Services [address] [place] [address] Venous Duplex US - Johnny Extrem 01/02/16 1454 MR#: [id number] Acct: [id number] Name: DIANA ESCUDERO Rep #: [id number] : 1950 65 From: Macrus Garza MD Attending Dr: Kelly Hannah MD [...] Date Dictated: 01/02/16 1454 Date Transcribed: 01/02/161653 Field Service Tech: Signed 12-Dec-2015 12 Lead Electrocardiogram Result: Comments: See Note; NOTES: [facility] Cardiovascular Services [address] [facility] [place] [address] 12 Lead EKG 12/03/151124 MR#: [id number] Acct: [id number] Name: DIANA DOWLING OLGA Rep #: [id number] : 1950 65 From: Puneet Alexander MD [...] Date Dictated: 12/03/15 1125 Date Transcribed: 12/03/151124 Field Service Tech: Signed 03-Dec-2015 Emergency Department Summary Result: Comments: See Note; NOTES: [facility] Medical Records Department [address] [place] [address] Emergency Department Summary MR#: [id number] Acct: [id number] Name: DIANA ESCUDERO Rep #: [id number] : 1950 65 From: Leanne Finn MD [...] PCP. DIAGNOSIS: Pleurisy. Leanne Finn MD T: [facility] JOB: [id number] 12/03/15 1536 <Electronically signed by Leanne Finn MD& #62; Date Leanne Finn MD Cosigner Signature (If Indicated): Date CC: Kelly Hannah MD Da te Dictated: 12/03/151356 Date Transcribed: 12/03/151356 Field Service Tech: Signed 03-Dec-2015 Discharge Instruction Result: Comments: See Note; NOTES: [facility] Medical Records Department [address] [place], [place] [address] [address] Discharge Instruction 12/03/151353 MR#: [id number] Acct: [id number] Name: DIANA ESCUDERO OLGA Rep #: [id number] : 1950 65 From: Leanne Finn MD [...] problems, contact your doctor. Call [facility] ([phone]) or report to the closest Emergency Room. Call 911 if necessary. 12/03/15 135 &# 60;Electronically signed by Leanne Finn MD> Date Leanne Chakraborty Signature (If Indicated): Date CC: Kelly Hannah MD 03-Dec-2015 CTA Chest W/WO Contrast Result: Comments: See Note; NOTES: [facility] Imaging Services [address] [place] [address] Verdana 4d CTA Chest W/WO Contrast MR#: [id number] Acct: [id number] Name: DIANA MENESES Rep #: [id number] : 1950 F 65 From: Aaron Salgado MD PCP: Kelly Hannah MD Status: REG ER Study: CTA Chest W/WO Contrast Date of Exam: 12/03/15 Exam# [id number] Ordering D r: Leanne Finn MD STUDY: [...] Aaron Salgado MD at 13:37 EDT Tel [phone], Service support [phone], CC: Leanne Finn MD; Kelly Hannah MD Field Service Tech: Signed 24-Jul-2015 Sleep Study Report Result: Comments: See Note; NOTES: [facility] SLEEP DISORDER CENTER [address] [place] [address] Split Night Sleep Study MR#: [id number] Acct: [id number] Name: Miguel Angel ESCUDERO Rep #: [id number] : 1950 65 From: Jimmy Coates MD [...] version). Please note that a reference to [facility] AHI in this report is consistent with the current Hypopnea definition according to Medicare Criteria and an [facility] AHI reference is consistent wit h the current Hypopnea definition according to the AASM criteria and is recognized by [facility] as the RDI. PROCEDURE: The [...] calculated body mass index of 35 and [place] Sleepiness Scale score of 6/20. The patient [...] heated humidity. SLEEP STUDY DATA: The [facility] split night study began at [...] MAmber. Jimmy Coates MD T: [facility] JOB: [id number] CC: Jimmy Coates MD DD: 08/06 1043 1043 07/24/15 2205 <Electronically signed by Jimmy Coates MD> Date Jimmy Coates MD Co-signature (if appli cable) Date Signed 12-Feb-2015 Chest 1 View (Portable) Result: Comments: See Note; NOTES: [facility] Imaging Services [address] [place] [address] Radiology Report MR#: [id number] Acct: [id number] Name: DIANA ESCUDERO Rep #: [id number] : 1950 F 65 From: Aaron Salgado MD PCP: Kelly Hannah MD Status: PRE ER Study: Chest 1 View (Portable) Date of Exam: 02/12/15 Exam# [id number] Ordering Dr: Kenroy Arciniega MD S SABRINADY: [...] Aaron Salgado MD at 11:08 EDT Tel [phone], Service support [phone], RAD/Chest 1 View (Portable) IMPRESSION: No acut e abnormality is seen. Electronically Signed: Aaron Salgado MD at 11:08 EDT Tel [phone], Service support [phone], CC: Kelly Hannah MD; Kenroy Arciniega MD Field Service Tech: Signed 12-Feb-2015 CTA Chest W/WO Contrast Result: Comments: See Note; NOTES: [facility] Imaging Services [address] [place] [address] CAT Scan Report MR#: [id number] Acct: [id number] Name: DIANA ESCUDERO Rep #: [id number] : 1950 F 65 From: Aaron Salgado MD PCP: Kelly Hannah MD Status: REG ER Study: CTA Chest W/WO Contrast Date of Exam: 02/12/15 Exam# [id number] Ordering Dr: Kenroy Arciniega MD UDY: CTA [...] Aaron Salgado MD at 12:08 EDT Tel [phone], Service support [phone], CC: Kelly Hannah MD; Kenroy Arciniega MD Field Service Tech: Signed 11-Jan-2015 Bilat Scrn Digital AND CAD Result: Comments: See Note; NOTES: [facility] Imaging Services [address] [place] [address] Breast Imaging Report MR#: [id number] Acct: [id number] Name: DIANA ESCUDERO Rep #: [id number] : 1950 F 64 From: Shaan Nunez DO PCP: Kelly Hannah MD Status: REG CLI Study: Bilat Scrn Digital AND CAD Date of Exam: 01/11/15 Exam# [id number] Ordering Dr: Kelly Hannah MD MAMMOGRAPHY - [...] Signed: Shaan NunezDO at 10:22 EDT Tel [phone], Service support [phone], CC: Kelly Hannah MD Field Service Tech: Signed 23-Jul-2014 CTA Chest W/WO Contrast Result: Comments: See Note; NOTES: [facility] Imaging Services [address] [place] [address] CAT Scan Report MR#: [id number] Acct: [id number] Name: DIANA ESCUDERO Rep #: [id number] : 1950 F 64 From: Aaron Salgado MD PCP: Kelly Hannah MD Status: REG CLI Study: CTA Chest W/WO Contrast Date of Exam: 07/23/14 Exam# [id number] Ordering Dr: Kelly Hannah MD S TUDY: [...] Aaron Salgado MD at 12:47 EST Tel [phone], Service support [phone], CC: Kelly Hannah MD Field Service Tech: Signed 04-Jan-2014 Consultation Result: Comments: See Note; NOTES: [facility] Medical Records Department [address] [place] [address] Consultation 01/04/14 1218 MR#: [id number] Acct: [id number] Name: DIANA ESCUDERO Rep #: [id number] : 1950 63 From: Juancho Foy MD PCP: Kelly Hannah MD Status: REG [facility] [place] Location: [place] [address] Problem List (1) Bradycardia Status: Acute (2) [...] showed sinus bradycardia, normal QRS duration, normal OR interval, normal QT interval, no ischemic hardy [...] PO Q4H PRN PRN #30 tablet 01/04/14 [[place] 5/325] Surgical History: appendectomy, cholecystectomy, - - Hysterectomy Psychiatric History: No pertinent psych hx [employer] History: No pertinent [employer]PER[employer] his tory Lives: Spouse/ Significant Other [...] SCDs. 01/04/14 1245 <Electron ically signed by Junacho Foy MD> Date Juancho Foy MD CC: Kelly Hnanah MD Signed 04-Jan-2014 Discharge Instruction Result: Comments: See Note; NOTES: [facility] Medical Records Department [address] [place] [address] Instructions for Home/Discharge Instructions 01/04/14 0731 MR#: [id number] Acc t: [id number] Name: DIANA ESCUDERO Rep #: [id number] : 1950 63 From: Anatoly Diego MD [...] PRN PRN #60 capsule Hydrocodone Bitart/Apap 5-325 [[place] 5/325] 1 tablet PO Q4H PRN PRN #30 tablet Please Follow Up With: Anatoly Diego When: 2-3 weeks Proposed Discharge Date: 01/05/14 01/04/14 0735 <Electronically signed by Anatoly Diego MD> Date Anatoly Diego MD CC: Kelly Hannah MD 10-Oct-2013 EKG (31509) Comments: see scanned document of test done to see results reviewed today with patient Result: [MEASUREMENTS ANALYSIS] Date of Test: 10/10/2013 08:20:27; Heart Rate: 64; OR Interval: 160; QRS: 90; QT Interval: 394; Corrected QT Interval (QTc): 401; P Wave [place]: 50; QRS Wave [place]: 5; T Wave [place]: 14; Blood Pressure: 122/78 [ECG DIAGNOSTIC STATEMENTS] [...] Status: Active 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 Status: Active Living Situation: Lives with domestic partner. Comments: , Caodaism Status: Active No Caffeine Use Status: Active [...] kg/m2 Body Surface Area Calculated 2.11 m2 10-Bap-033381:07 Temperature 97.6 f Comments: Method: Temporal Pulse [...] NMR Comments: PATIENT WAS FASTINGPERFORMED BY: [facility] [address] [id number] ([id number]) LP-IR Score 81 (Abnormal) Comments: INSULIN RESISTANCE MARKER <--Insulin Sensitive Insulin Resistant--> Percentile in Reference PopulationInsulin Resistance ScoreLP-IR Score Low 25th 50th 75th High <27 27 45 63 >63LP-IR Score is inaccurate if patient is non-fasting. .The LP-IR score is a laboratory developed i [facility] that has beenassociated with insulin [...] were developed and their performance characteristicsdetermined by [employer]. These assays have not been cleared by [...] > 14-Feb-201815:35 Basic Metabolic Profile (BMP) Comments: [facility] [id number] [place], [address] GAP 10 (Normal) Range: 5-15 CO2 30.0 [...] A.D.A. criteria.Please note revised GLUCOSE reference range pdmjlgbic34/02/2018. 53-Fsg-084912:35 CBC W/Diff, Automated Comments: [facility] [address] [place], [place], [address] Absolute Lymph 2.44 {X10_3/ul} (Normal) Range: 0.83-4.51 [...] 4.2-5.4 WBC 7.3 K/mm3 (Normal) Range: 4.4-11.0 60-Kfx-592909:35 Troponin-I Comments: [facility] [address] [place], [address] TROPONIN-I < 0.015 ng/mL (Normal) Comments: TROPONIN-I EXPECTED VALUES <0.045 Negative 0.045 - 0.590 Consistent with Cardiac Damage > OR = 0.600 Critical Value Not every elevated troponin is indicative of OK. T hesevalues should be used with clinical judgement in examiningthe patient's clinical picture for diagnosis. To establisha diagnosis of OK versus myocardial injury, there must be ademonstrated rise and/ or fall in the troponin values, inaddition to ischemic symptoms, EKG changes, new regionalwall motion abnormality, and/or angiographical evidence. PLEASE NOTE: REFERENCE RANGES EDITED 11/01/1723-Sep-20178:28 Pathology Report Comments: PERFORMED BY: [facility] [place] Cbap2362 [facility] [id number] BY: [facility] Dermatopathology [id number] [facility] [address] [place] [address] [id number] Information: [id number] See MATER Comments: Material submitted: .RIGHT HAND BIOPSYClinical history: .BLACK SPOT ON HAND Note (Normal) Diagnosis:BLUE NEVUS.TMZ/09/28/2017Electronically signed: .Mya Fay MD, DermatopathologistGross description: .RECEIVED IN FORMALIN LABELED DIANA ESCUDERO AND PALOMO HAND IS A PUGH SKIN PUNCH BIOPSY MEASURING 3.0 MM IN ANDREW METERAND 2.0 MM THICK WITH A OLIVAS, RAISED AREA 2.5 X 1.5 MM. SUBMITTEDIN FAHAD.FUN/TMZPathologist provided ICD-10:D22.61CPT .603876 28-Foz-42570:47 Platelet Count on Comments: PATIENT WAS FASTINGPERFORMED BY: [facility] [id number] [facility] [id number] BY: CB [facility] Sevmyr3917 [facility] [id number] Citrated Bld Plt Count, Citrated Bld 160 {X10E3/uL} (Normal) Range: 150-379 90-Kww-17968:47 LIPOPROTEIN, BLD, BY NMR Comments: PATIENT WAS FASTINGPERFORMED BY: [facility] Zwzdzoined1827 [facility] [id number] BY: [facility] Butnpa8988 [facility] [id number] Information: PLATELET ON CITRATE BLD 422357 (61752) LP-IR Score 85 (Abnormal) Comments: INSULIN RESISTANCE MARKER <--Insulin Sensitive Insulin Resistant--> Percentile in Reference PopulationInsulin Resistance ScoreLP-IR Score Low 25th 50th 75th High <27 27 45 63 >63LP-IR Score is inaccurate if patient is non-fasting. .The LP-IR score is a laboratory developed i [facility] that has beenassociated with insulin [...] were developed and their performance characteristicsdetermined by Lipcompare[employer]me. These assays have not been cleared by [...] Albumin/Creatinine Ratio,Urine Comments: PATIENT NOT FASTINGPERFORMED BY: [address] StreetDublin [place] [id number] Alb/Creat Ratio <1.4 {mg/g_creat} (Normal) Range: 0.0-30.0 Albumin, Urine <3.0 ug/mL (Normal) Creatinine, Urine 212.4 mg/dL (Normal) :43 CBC With Differential/Platelet Comments: PATIENT NOT FASTINGPERFORMED BY: JERMAINE LabMcl[facility] Hospital6370 [facility] [id number] Immature Grans (Abs) 0.0 {x10E3/uL} (Normal) Range: [...] Panel (14) Comments: PATIENT NOT FASTINGPERFORMED BY: CeNeRx BioPharmaSt. Luke's Warren HospitalJzcbfj0462 [facility] [id number] ALT (SGPT) 18 [iU]/L (Normal) Range: 0-32 [...] Glucose, Serum 100 mg/dL (Abnormal) Range: 65-99 85-Tat-99427:43 Urinalysis, Routine Comments: PATIENT NOT FASTINGPERFORMED BY: FookyZMclaren Bay Special Care Hospital6370 [facility] [id number] Microscopic Examination MICNIP (Normal) Comments: Microscopic not indicated and not performed. Nitrite, Urine Negative (Normal) Urobilinogen,Semi-Qn 0.2 mg/dL (Normal) Range: 0.2-1.0 Bilirubin Negative (Normal) Occult Blood Negative (Normal) Ketones Negative (Normal) Glucose Negative (Normal) Protein Negative (Normal) WBC Esterase Negative (Normal) Appearance Clear (Normal) Urine-Color Yellow (Normal) pH 6.0 (Normal) Range: 5.0-7.5 Specific Madison 1.025 (Normal) Range: 1.005-1.030 51-Qlc-600334:21 FLU A+B DIRECT AG, (RAPID) (78220) FLU A+B DIRECT AG, (RAPID) negative (Normal) :32 Potassium Serum (54167) Comments: PATIENT NOT FASTINGPERFORMED BY: [employer] [id number] BY: [address] [id number] Potassium, Serum 3.9 mmol/L (Normal) Range: 3.5-5.2 :32 Magnesium (29815) Comments: PATIENT NOT FASTINGPERFORMED BY: [employer] [id number] BY: [address] [id number] Magnesium, Serum 2.0 mg/dL (Normal) Range: 1.6-2.3 :32 CCP ANTIBODY (46373) Comments: PATIENT NOT FASTINGPERFORMED BY: [employer] [id number] BY: [address] [id number] CCP Antibodies IgG/IgA 10 {units} (Normal) Range: 0-19 Comments: Negative <20 Weak positive 20 - 39 Moderate positive 40 - 59 Strong positive >59 :32 TSH (39983) Comments: PATIENT NOT FASTINGPERFORMED BY: [facility] HospitalKnoa Software[address] [id number] BY: [address] [id number] TSH 3.380 {uIU/mL} (Normal) Range: 0.450-4.500 :32 SED RATE ERYTHROCYTE Comments: PATIENT NOT FASTINGPERFORMED BY: FookyZ[address] [place] [id number] BY: LabStephanie V[place] [address]237 [facility] [id number] (61256) Sedimentation Rate-Westergren 14 mm/h (Normal) Range: 0-40 :32 C-REACTIVE PROTEIN (84256) Comments: PATIENT NOT FASTINGPERFORMED BY: LabCoSt. Luke's Warren HospitalRocssm1802 [facility] [id number] BY: LabCo[address] [id number] C-Reactive Protein, Quant 3.5 mg/L (Normal) Range: 0.0-4.9 :32 JESUS ALBERTO (ANTINUCLEAR ANTIBODY) Comments: PATIENT NOT FASTINGPERFORMED BY: [facility] Zmylbe6484 [facility] [id number] BY: LabCo[address] [id number]; fu 3-30 (53724) JESUS ALBERTO Direct Negative (Normal) 18-Otf-578089:37 Basic Metabolic Profile (BMP) Comments: 'TROP' Serial specimen #1, #2, #3, or #4: [address] [place] [address] Qqsqvcfdet3431 [place], [address] GAP 8 (Normal) Range: 5-15 CO2 29.0 [...] A.D.A. criteria. :37 CBC W/Diff, Automated Comments: [facility] Lesimzxgyk[address] [place], [address] Absolute Lymph 1.93 {X10_3/ul} (Normal) Range: 0.83-4.51 [...] Serial specimen #1, #2, #3, or #4: 1W[facility] Gttynnxnog93[address] [place], [place], [address] TROPONIN-I < 0.02 ng/mL (Normal) Comments: TROPONIN-I EXPECTED VALUES <0.05 NEGATIVE 0.06 - 0.59 AT RISK OF OK > OR = 0.60 SUGGEST OK :16 HEPATITIS C ANTIBODY (90859) Comments: CLient bill for this; PATIENT NOT FASTINGPERFORMED BY: [facility] Jgnadw5941 [facility] [id number] Hep C Virus Ab <0.1 {s/co_ratio} (Normal) Range: 0.0-0.9 Comments: Negative: < 0.8 Indeterminate: 0.8 - 0.9 Positive: > 0.9 . The CDC recommends that a positive HCV antibody result be followed up with a HCV Nucleic Acid Amplification test (526332). :32 CBC W/Diff, Automated Comments: [facility] Ykbuwwqwfa[address] [place], [place], [address] Absolute Lymph 2.31 {X10_3/ul} (Normal) Range: 0.83-4.51 [...] 1'CKMB' Serial Specimen #1, #2 or #3? 1[facility] Eugzzjtpaa7[address] [place], [place], [address] GAP 7 (Normal) Range: 5-15 CO2 28.0 [...] 7-18 GLU 92 mg/dL (Normal) Range: 70-110 26-Bod-726504:08 CK-MB Quantitative and Index Comments: Serial Specimen #1, #2 or #3? 1'TROP' Serial specimen #1, #2, #3, or #4: 1'CKMB' Serial Specimen #1, #2 or #3? [address] [place] [address] Qajzcmupnm3936 [place], [address] CKRI 1.1 % (Normal) Range: [...] 1'CKMB' Serial Specimen #1, #2 or #3? [address] [place] [address] Uanorwcjqm5113 [address] [place], [place], [address] TROPONIN-I < 0.02 ng/mL (Normal) Comments: TROPONIN-I EXPECTED VALUES <0.05 NEGATIVE 0.06 - 0.59 AT RISK OF OK > OR = 0.60 SUGGEST OK :30 CBC (Auto) (59471) Comments: PATIENT WAS FASTINGPERFORMED BY: [facility] Xyfuew1561 [facility] [id number] Platelets 165 {x10E3/uL} (Normal) Range: 150-379 RDW 13.8 % (Normal) Range: 12.3-15.4 MCHC 33.1 g/dL (Normal) Range: 31.5-35.7 MCH 31.2 pg (Normal) Range: 26.6-33.0 MCV 94 fL (Normal) Range: 79-97 Hematocrit 43.2 % (Normal) Range: 34.0-46.6 Hemoglobin 14.3 g/dL (Normal) Range: 11.1-15.9 RBC 4.59 {x10E6/uL} (Normal) Range: 3.77-5.28 WBC 6.6 {x10E3/uL} (Normal) Range: 3.4-10.8 :30 Metabolic Panel, Comments: PATIENT WAS FASTINGPERFORMED BY: [employer] Nvyfoo2551 [facility] [id number] Information: [id number] Comprehensive (82706) ALT (SGPT) 14 [iU]/L (Normal) Range: 0-32 [...] mg/dL (Normal) Range: 65-99 :30 Lipid Panel (86876) Comments: PATIENT WAS FASTINGPERFORMED BY: [employer] Ydabtv4354 [facility] [id number] LDL/HDL Ratio 3.6 {ratio_units} (Abnormal) Range: 0.0-3.2 [...] Cholesterol, Total 218 mg/dL (Abnormal) Range: 100-199 27-Raa-16129:30 Hemoglobin Glyclated (HGB A1C) Comments: PATIENT WAS FASTINGPERFORMED BY: [employer]70 [facility] [id number]; [address] ([address]603) Hemoglobin A1c 5.8 % (Abnormal) Range: 4.8-5.6 Comments: . Pre-diabetes: 5.7 - 6.4 Diabetes: >6.4 Glycemic control for adults with diabetes: <7.0 87-Kqf-894181:59 Urinalysis, Office (77094) UA - LEUKOCYTE ESTERASE Negative (Normal) UA - NITRITE Positive (Normal) URINE UROBILINGN FRANKO TIMED 2 mg/dL (Normal) UA - PROTEIN Negative mg/dL (Normal) UA - PH 5 (Abnormal) UA - BLOOD Negative (Normal) UA - SPECIFIC GRAVITY 1.020 (Normal) UA - KETONES Negative mg/dL (Normal) UA - BILIRUBIN Negative (Normal) UA - GLUCOSE Negative (Normal) 79-Mwh-45332:00 Anticardiolip Ab, IgA/G/M, Comments: PATIENT WAS FASTINGPERFORMED BY: [employer]6370 [facility] [id number] BY: [facility] VNH6673 [facility] [id number] Qn Anticardiolipin Ab,IgA,Qn <9 {APL_U/mL} (Normal) Range: [...] Positive: >20 - 80 High Positive: >80 53-Fvi-677219:37 Basic Metabolic Profile (BMP) Comments: Serial Specimen #1, #2 or #3? 1'TROP' Serial specimen #1, #2, #3, or #4: 1Test performed at:[facility] Fegtsycdig3637 [place] [address] GAP 7 (Normal) Range: 5-15 [...] Comments: Please note revised CREATININE reference range gbjwapnmz81/22/2015. BUN 16 mg/dL (Normal) Range: 7-18 GLU 134 mg/dL (Abnormal) Range: 70-110 Comments: Fasting Glucose result greater than or equal to 126 mg/dLsuggests DIABETES MELLITUS per A.D.A. criteria. 73-Eyg-492031:37 CBC W/Diff, Automated Comments: Test performed at:[facility] Acojwehyqu2201 [place] [address] Absolute Lymph 2.35 {X10_3/ul} (Normal) [...] 4.2-5.4 WBC 7.4 K/mm3 (Normal) Range: 4.4-11.0 10-Omd-497830:37 CK-MB Quantitative and Index Comments: Serial Specimen #1, #2 or #3? 1'TROP' Serial specimen #1, #2, #3, or #4: 1Test performed at:[facility] Ajrfloazq[address] [place] [address] CPKMB 0.8 ng/mL (Normal) Range: 0.0-5.0 Comments: CK-MB and RI Interpretation MB Relative Index Non-AMI <or= 5 NA Indeterminate > 5 <or= 4 AMI > 5 > 4 CPK TOTAL 80 U/L (Normal) Range: 26-192 53-Anm-007744:37 Troponin-I Comments: Serial Specimen #1, #2 or #3? 1'TROP' Serial specimen #1, #2, #3, or #4: 1Test performed at:[facility] Znsvqejtqf7032 [place] [address] TROPONIN-I < 0.02 ng/mL (Normal) Comments: TROPONIN-I EXPECTED VALUES <0.05 NEGATIVE 0.06 - 0.59 AT RISK OF OK > OR = 0.60 SUGGEST OK 34-Kei-406384:59 D-Dimer (87319) Comments: PATIENT NOT FASTINGPERFORMED BY: [employer] [id number] BY: CeNeRx BioPharmaSt. Luke's Warren HospitalPirsdy9484 [facility] [id number] D-Dimer 0.59 {mg/L_FEU} (Abnormal) Range: 0.00-0.49 Comments: In conjunction with a non-high clinical probability assessment, anormal (<0.50 mg/L FEU) result excludes deep vein thrombosis (DVT)and pulmonary embolism (PE) with high sensitivity. 61-Rhy-78479:00 LIPID PANEL (11073) Comments: PATIENT WAS FASTINGPERFORMED BY: [employer]6370 [facility] [id number] BY: TG [employer] CQU0328 [facility] [id number] LDL/HDL Ratio 3.1 {ratio_units} (Normal) Range: 0.0-3.2 [...] Cholesterol, Total 177 mg/dL (Normal) Range: 100-199 23-Zby-239203:59 Protein S Profile Comments: PATIENT NOT FASTINGPERFORMED BY: [employer] [id number] BY: CeNeRx BioPharmaSt. Luke's Warren HospitalBkfbrp1555 [facility] [id number] Inf ormation: [id number] (68958) Protein S-Functional 119 % (Normal) Range: 60-145 Protein S, Free 108 % (Normal) Range: 56-124 Protein S, Total 137 % (Normal) Range: 58-150 41-Koa-033841:59 Protein C Profile Comments: PATIENT NOT FASTINGPERFORMED BY: [employer] [id number] BY: [facility] Adsmcu9072 Murphy RoadDublin [place] [id number] ([address]) Protein C-Functional 120 % (Normal) Range: 74-151 Protein C Antigen 104 % (Normal) Range: 70-140 32-Nkc-33501:00 Homocysteine, Plasma Comments: PATIENT WAS FASTINGPERFORMED BY: [employer] Ycciex7226 Murphy RoadDublin [place] [id number] BY: [employer] YEJ2197 [facility] [id number] (81975) Homocyst(e)ine, Plasma 11.2 umol/L (Normal) Range: 0.0-15.0 52-Bho-324120:59 ANTITHROMBIN III ACTIVTY Comments: PATIENT NOT FASTINGPERFORMED BY: [employer] [id number] BY: CeNeRx BioPharmaSt. Luke's Warren HospitalBonlpi3777 Murphy Roadblin [place] [id number] (17588) Antithrombin Antigen 94 % (Normal) Range: 75-130 Antithrombin Activity 108 % (Normal) Range: 75-135 65-Epu-632755:59 CLOTTING FACTOR II Comments: PATIENT NOT FASTINGPERFORMED BY: [employer] [id number] BY: FookyZCo Fqpjxo4837 Murphy RoadDublin [place] [id number] (26236) Factor II Activity 113 % (Normal) Range: 75-130 97-Bsm-11802:00 Factor V Leiden (41320) Comments: PATIENT WAS FASTINGPERFORMED BY: [facility] Xwatxm1650 Murphy RoadDublin [place] [id number] BY: [facility] VVA3838 [facility] [id number] Factor V Leiden FVNEG3 (Normal) Comments: Result: [...] in the workup for venous thrombosis include [id number] mutation in the factor II (prothrombin) gene,protein S and C deficiency, and antithromb in deficiencies.Anticardiolipin antibody and lupus anticoagulant analysismay be appropriate for certain patients, as well ashomocysteine levels. .Contact your local [facility] for information on how to orderadditional testing if desired. .Genetic counselors are available for health care* providers to discuss results at [phone] ([phone]). .Methodology:DNA analysis of the Factor V gene [...] Chavez, PhDTara Jhaveri, PhDNgozi Cardozo, PhD . 95-Day-00467:00 MTHFR (59192) Comments: PATIENT WAS FASTINGPERFORMED BY: LabCoSt. Luke's Warren HospitalGlekim5119 [facility] [id number] BY: [facility] VTX6789 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 Compound heterozygosity for the L793Gatr T3995T variants is unlikely to be of clinical [...] discuss these results with healthcare providers at [phone]. .Methylenetetrahydrofolate reductase (MTHFR) is a ke y enzyme in thefolate pathway and is responsible for the metabolism of homocysteine.There are two common variants in the MTHFR gene, c.655C>T(p.Ofr174Qew), referred to as C677T, and c.1286A>C (p.G kj518Avb),referred to as C6316D. Individuals homozygous for C677T (two copiesof the variant), have decreased activity of the MTHFR enzyme and apredisposition to hyperhomocysteinemia, particularly when d eficient infolate. Hyperhomocysteinemia is a risk factor for venous thrombosisand coronary artery disease and is associated with an increased riskof open neural tube defects. The C677T variant reilly s notindependently increase risk of these conditions in the absence ofhyperhomocysteinemia. The N1971X variant is not associated withelevated homocysteine levels unless a C677T variant is also present;h owever, the clinical significance of heterozygosity for both L662Rpbx Z5910S is controversial. Population data suggest that these twovariants are not present on the same chromosome, but rare exceptionsh ave been reported of triple variant MTHFR genotypes (ie. homozygousfor one variant and heterozygous for the other). Homozygosity mvfF219V has an estimated frequency of 10% to [...] PhDNgozi Cardozo, PhD :52 HgA1C , Office (40108) HgA1C , Office 5.8 % (Normal) Range: 4.6 - 7.1 :31 CBC With Differential/Platelet Comments: PATIENT WAS FASTINGPERFORMED BY: LabCoSt. Luke's Warren HospitalRinzdo2007 [facility] [id number] Information: [id number] Immature Grans (Abs) 0.0 {x10E3/uL} (Normal) Range: [...] 3.77-5.28 WBC 5.3 {x10E3/uL} (Normal) Range: 3.4-10.8 51-Fzt-74093:31 Comp. Metabolic Panel (14) Comments: PATIENT WAS FASTINGPERFORMED BY: LabCoSt. Luke's Warren HospitalIhtzph4516 [facility] [id number] ALT (SGPT) 18 [iU]/L (Normal) Range: 0-32 [...] Glucose, Serum 103 mg/dL (Abnormal) Range: 65-99 83-Hkn-472153:04 Urinalysis, Office (89095) UA - PH 6.0 (Normal) UA - LEUKOCYTE ESTERASE Negative (Normal) UA - NITRITE Negative (Normal) URINE UROBILINGN FRANKO TIMED 2 mg/dL (Normal) UA - PROTEIN Negative mg/dL (Normal) UA - BLOOD Negative (Normal) UA - SPECIFIC GRAVITY 1.025 (Normal) UA - KETONES Negative mg/dL (Normal) UA - BILIRUBIN Negative (Normal) UA - GLUCOSE Negative (Normal) 77-Hei-16397:51 POTASSIUM SERUM (64105) Comments: today; PATIENT NOT FASTINGPERFORMED BY: LabCoSt. Luke's Warren HospitalKmofwq0099 [facility] [id number] Information: [id number] Potassium, Serum 3.8 mmol/L (Normal) Range: 3.5-5.2 9-Mdd-889281:30 Basic Metabolic Profile (BMP) Comments: 'TROP' Serial specimen #1, #2, #3, or #4: 1'CKMB' Serial Specimen #1, #2 or #3? 1Test performed at:[facility] Rbkphcamjl65[address] [place], [place] [address] GAP 3 (Abnormal) Range: 5-15 CO2 34.0 [...] 7-18 GLU 89 mg/dL (Normal) Range: 70-110 0-Hdh-291736:30 CBC W/Diff, Automated Comments: Test performed at:[facility] Xsecjfodat10[address] [place], [place] [address] Absolute Lymph 2.01 {X10_3/ul} (Normal) Range: 0.83-4.51 [...] Specimen #1, #2 or #3? 1Test performed at:[facility] [address]ummwzkpnt[address] [place] [address] CPKMB 0.8 ng/mL (Normal) Range: 0.0-5.0 Comments: CK-MB and RI Interpretation MB Relative Index Non-AMI <or= 5 NA Indeterminate > 5 <or= 4 AMI > 5 > 4 CPK TOTAL 64 U/L (Normal) Range: 26-192 :30 D-Dimer Quantitative (DVT/PE) Comments: Test performed at:[facility] [address] [place] [address] D-DIMER QUANT 1.86 {FEU/ug/m} (Abnormal) [...] Specimen #1, #2 or #3? 1Test performed at:[facility] Qyiqaxsdur[address] [place] [address] TROPONIN-I < 0.02 ng/mL (Normal) Comments: TROPONIN-I EXPECTED VALUES <0.05 NEGATIVE 0.06 - 0.59 AT RISK OF OK > OR = 0.60 SUGGEST OK :18 HgA1C , Office (37230) HgA1C , Office 5.7 % (Normal) Range: 4.6 - 7.1 :18 Blood Glucose , Office (67057) Blood Glucose , Office 106 (Normal) 28-Tnp-108063:20 CBCD ALC 2.30 {X10_3/ul} (Normal) Range: 0.83-4.51 [...] 4.2-5.4 WBC 5.5 K/mm3 (Normal) Range: 4.4-11.0 09-Ltc-456136:20 MRSA+SAID SCRN See Note (Normal) Comments: S. AUREUS S. aureus NegativeMRSA MRSA Negative 90-Fmi-747655:20 [facility] Comments: ORDER URINE CULTUREIF POSITIVE NITRITE and [...] Yellow (Normal) :54 Blood Glucose , Office (84211) Blood Glucose , Office 123 (Normal) Comments: Not Fasting :54 HgA1C , Office (23017) HgA1C , Office 6.0 % (Normal) Range: 4.6 - 7.1 :31 POTASSIUM SERUM (33351) Comments: patient having drawn in 2 wks; PATIENT NOT FASTINGPERFORMED BY: LabCoSt. Luke's Warren HospitalQcllwj1820 [facility] [id number] Information: [id number] Potassium, Serum 4.0 mmol/L (Normal) Range: 3.5-5.2 :20 Microscopic Examination Comments: PATIENT WAS FASTINGPERFORMED BY: LabCoSt. Luke's Warren HospitalBluecr5735 [facility] [id number] Bacteria Few (Normal) Mucus Threads Present (Normal) [...] 4.2-5.4 WBC 6.5 K/mm3 (Normal) Range: 4.4-11.0 1-Vvm-515489:30 CRE GFRAA 73 mL/min (Normal) CREAT 1.0 mg/dL (Normal) Range: 0.6-1.0 GFR 60 mL/min (Normal) :30 PT INR 0.9 (Normal) PTP 11.6 s (Abnormal) Range: 11.9-14.4 :30 PTT 27.1 s (Normal) Range: 24.1-36.2 8-Wrv-985685:30 TSPAT Comments: Surgery Date: 01/04/14Hx of Preganancy in last 3 Months NoEver experience any problems with transfusion(s)? NHx of Transfusion in last 3 Months NReason for Type & Screen/Red Cells: SURGERYTime: 0600Other - use comments: UNKNOWNSURGICAL PROCEDURE: OTHER SC2 NEGATIVE (Normal) SC3 NEGATIVE (Normal) SC1 NEGATIVE (Normal) ABS NEGATIVE (Normal) BT A POSITIVE (Normal) :20 URINALYSIS, W/ MICRO (71594) Comments: PATIENT WAS FASTINGPERFORMED BY: [employer] Fudotp2087 [facility] [id number] Microscopic Examination See below: (Normal) Comments: Microscopic was indicated and was performed. Nitrite, Urine Negative (Normal) Urobilinogen,Semi-Qn 1.0 mg/dL (Normal) Range: 0.0-1.9 Bilirubin Negative (Normal) Occult Blood Negative (Normal) Ketones Negative (Normal) Glucose Negative (Normal) Protein Trace (Normal) WBC Esterase 2+ (Abnormal) Appearance Clear (Normal) Urine-Color Yellow (Normal) pH 6.5 (Normal) Range: 5.0-7.5 Specific Madison 1.023 (Normal) Range: 1.005-1.030 :20 METABOLIC PANEL, COMPREHENSIVE Comments: PATIENT WAS FASTINGPERFORMED BY: [employer] Lqqhuu1958 [facility] [id number] (05040) ALT (SGPT) 20 [iU]/L (Normal) Range: 0-32 [...] mg/dL (Abnormal) Range: 65-99 :20 LIPID PANEL (30827) Comments: PATIENT WAS FASTINGPERFORMED BY: [employer]70 [facility] [id number] LDL/HDL Ratio 3.8 {ratio_units} (Abnormal) Range: 0.0-3.2 [...] MANUAL DIFF Comments: PATIENT WAS FASTINGPERFORMED BY: [employer]6370 [facility] [id number] Information: [id number] (51290) Immature Grans (Abs) 0.0 {x10E3/uL} (Normal) Range: [...] (Normal) Range: 3.4-10.8 :09 HgA1C , Office (50750) HgA1C , Office 5.8 % (Normal) Range: 4.6 - 7.1 :09 Blood Glucose , Office (28348) Blood Glucose , Office 129 (Normal) Comments: not fasting 41-Prn-030439:17 CMP GAP 4 (Abnormal) Range: 5-15 CO2 [...] (Normal) Range: 70-110 :17 HgA1C , Office (71710) HgA1C , Office 5.9 % (Normal) Range: 4.6 - 7.1 :17 Blood Glucose , Office (65858) Blood Glucose , Office 107 (Normal) :15 [...] Signed:Payton DuttaMarch 15, 2013 at 7:58:55 AM [id number] Signed GP/GP If you are the referring physician and would like to consult with theradiologist who provided this interpretation, please co ntact Unique Yusuf at [phone]. If this radiologist is unavailable, youwill be directed to another radiologist to assist. If you are a patient with a question regarding this report, pleas econtactyour referring physician directly. Professional Interpretation Provided By: [employer], Phone , These documents contain legally protected [...] 03/15/13 0837 Sign by: Aaron Salgado MD 63-Ctt-17664:25 Blood Glucose , Office (41386) Blood Glucose , Office 134 (Normal) 93-Nve-41582:25 HgA1C , Office (88803) HgA1C , Office 5.8 % (Normal) Range: 4.6 - 7.1 6-Zsr-605151:22 PELVIC (NON ) Radiology Report See Note [...] Salgado M.D.January 23, 2013 at 2:31:38 PM [id number] Signed GP/GP If you are the referring physician and would like to consult with theradiologist who provided this interpretati on, please contact Unique Yusuf at [phone]. If this radiologist is unavailable, youwill be directed to another radiologist to assist. If you are a patient with a question regarding this report, pleasecontactyour referring physician directly. Professional Interpretation Provided By: [employer], Phone , These documents contain legally protected [...] size of the right kidney. The right jttztumrymvvam15.4 cm. Ambika l renal cortex. The right [...] M.D.January 23, 2013 at 2:2 8:11 PM [id number] Signed GP/GP If you are the referring physician and would like to consult with theradiologist who provided this interpretation, please contact Payton Yusuf at [phone]. If this radiologist is unavailable, youwill be directed to another radiologist to assist. If you are a patient with a question regarding this report, pleasecontactyour referring phys ician directly. Professional Interpretation Provided By: [employer], Phone , These documents contain legally protected [...] Salgado M.D.January 23, 2013 at 2:31:38 PM [id number] Signed GP/GP If you are the referring physician and would like to consult with theradiologist who provided this interpretati on, please contact Unique Yusuf at [phone]. If this radiologist is unavailable, youwill be directed to another radiologist to assist. If you are a patient with a question regarding this report, pleasecontactyour referring physician directly. Professional Interpretation Provided By: Vendormate, Phone , These documents contain legally protected [...] 01/24/13 1043 Sign by: Aaron Salgado MD 69-Tdq-759144:11 CBC, Platelets & Auto Comments: PATIENT NOT FASTINGPERFORMED BY: LabCoSt. Luke's Warren HospitalLthlup5081 [facility] [id number] Information: [id number] Diff (35561) Immature Grans (Abs) 0.0 {x10E3/uL} (Normal) Range: [...] (Normal) Range: 70-110 :33 HgA1C , Office (25440) HgA1C , Office 5.8 % (Normal) Range: 4.6 - 7.1 :53 METABOLIC PANEL, COMPREHENSIVE Comments: PATIENT WAS FASTINGPERFORMED BY: [facility]6370 [facility] [id number] (68475) ALT (SGPT) 19 [iU]/L (Normal) Range: 0-32 [...] MANUAL DIFF Comments: PATIENT WAS FASTINGPERFORMED BY: LabCoSt. [facility]'s [facility] HospitalRapwtp8309 [facility] [id number] Information: [id number] (81725) Immature Grans (Abs) 0.0 {x10E3/uL} (Normal) Range: [...] 3.77-5.28 WBC 7.5 {x10E3/uL} (Normal) Range: 4.0-10.5 79-Tmh-500463:53 LIPID PANEL (18236) Comments: PATIENT WAS FASTINGPERFORMED BY: [facility]6370 [facility] [id number] LDL/HDL Ratio 3.3 {ratio_units} (Abnormal) Range: 0.0-3.2 LDL Cholesterol Calc 136 mg/dL (Abnormal) Range: 0-99 HDL Cholesterol 41 mg/dL (Normal) Comments: According to ATP-III Guidelines, HDL-C >59 mg/dL is considered anegative risk factor for CHD. VLDL Cholesterol José Luis 45 mg/dL (Abnormal) Range: 5-40 Triglycerides 226 mg/dL (Abnormal) Range: 0-149 Cholesterol, Total 222 mg/dL (Abnormal) Range: 100-199 92-Ing-13316:51 BILAT SCRN DIGITAL & CAD Radiology Report [...] Salgado M.D.January 18, 2012 at 10:04:04 AM [id number] Signed GP/GP If you are the referring physician and would like to consult with theradiologist who pro vided this interpretation, please contact [employer] at [phone]. If this radiologist is unavailable, youwill be directed to another radiologist to assist. If you are a patient with a q uestion regarding this report, pleasecontactyour referring physician directly. Professional Interpretation Provided By: Vendormate, Phone , Dictated on 01/18/12 0759 by Damian FLYNN,DavidriClevelandranscribed on 01/18/12 1010 by ITS IMPORTSign by Damian FLYNN,Aaron on 01/18/12 1011 Sign by: Aaron Salgado MD 6-Gai-471536:43 MICROALBUMIN: CREATININE RATIO Comments: PATIENT WAS FASTINGPERFORMED BY: [employer] Website6370 [facility] [id number] (59007) AND (78205) Microalb/Creat Ratio 1.4 {mg/g_creat} (Normal) Range: 0.0-30.0 Microalbumin, Urine 2.3 ug/mL (Normal) Range: 0.0-17.0 Creatinine, Urine 167.9 mg/dL (Normal) Range: 15.0-278.0 :43 METABOLIC PANEL, COMPREHENSIVE Comments: PATIENT WAS FASTINGPERFORMED BY: [employer] Website6370 [facility] [id number] (12909) ALT (SGPT) 24 [iU]/L (Normal) Range: 0-40 [...] Glucose, Serum 95 mg/dL (Normal) Range: 65-99 3-Qda-724968:43 LIPID PANEL (13380) Comments: PATIENT WAS FASTINGPERFORMED BY: [employer] Website6370 [facility] [id number] LDL/HDL Ratio 3.2 {ratio_units} (Normal) Range: 0.0-3.2 [...] MANUAL DIFF Comments: PATIENT WAS FASTINGPERFORMED BY: OX FACTORYGila Regional Medical CenterJtovlz2672 [facility] [id number] Information: [id number] (36798) Immature Grans (Abs) 0.0 {x10E3/uL} (Normal) Range: [...] population. WBC 5.9 {x10E3/uL} (Normal) Range: 4.0-10.5 52-Lpz-504875:18 HgA1C , Office (82528) HgA1C , Office 6.1 % (Normal) Range: 4.6 - 7.1 06-Fuz-996394:18 Blood Glucose , Office (89694) Blood Glucose , Office 125 (Normal) 67-Cji-104741:00 Thin prep Pap Comments: Source.............Cervical;EndocervicalNo. of containers..01 CYTYC Thin Prep VialPATIENT NOT FASTINGPERFORMED BY: [facility] [address] [facility] [place] [id number] Information: [id number] ([id number]) Note: PAPSMR (Normal) Comments: The Pap smear [...] present.V72.31 ; Routine gynecolog ical examsaeed Batres Staffing Specialist (ASCP) 71-Cdl-31343:00 BILAT SCRN DIGITAL & CAD Radiology Report [...] 11/04/10619 Sign by: __ Aaron Salgado MD 8-Tle-841557:24 CBC & PLATELETS (AUTO) Comments: PATIENT NOT FASTINGPERFORMED BY: LabCoSt. [facility] HospitalEnutca0061 [facility] [id number] Information: [id number]; appt 11/28/10 (39886) MCH 31.6 pg (Normal) Range: 27.0-34.0 MCHC [...] 45 63 >63Performed at: S7 [facility] [address] [place], [place] [address]Bcy Director: Stefano Mace PhD, Phone: [phone] HDL SIZE <TEST NOT PERFORMED> (Normal) INSULIN [...] TOT 209 mg/dL (Abnormal) LIPIDS . (Normal) 4-Lww-395428:12 CULT, DP WOUND Comments: COMMENTS: CULTURE, SENSITIVITY,AREOBES, [...] STRIMETHOPRIM/SULFAMETHOXAZ $ <=10 SVANCOMYCIN $ 1 S 3-Nyw-479359:10 CBC Comments: COMMENTS: AC ROOM 6 HCT [...] 1 S :56 Blood Glucose , Office (97373) Blood Glucose , Office 102 (Normal) :56 HgA1C , Office (61612) HgA1C , Office 6.1 % (Normal) Range: 4.6 - 7.1 :49 MICROALBUMIN: CREATININE Comments: PATIENT WAS FASTINGPERFORMED BY: S7 [employer] Xek8446 [facility] [id number] BY: [employer]6370 [facility] [id number] RATIO (47610) AND (00374) Microalb/Creat Ratio 2.3 {mg/g_creat} (Normal) Range: 0.0-30.0 Microalbumin, Urine 3.4 ug/mL (Normal) Range: 0.0-17.0 Creatinine, Urine 150.2 mg/dL (Normal) Range: 15.0-278.0 73-Zdh-55763:49 LIPOPROTEIN, BLD, BY NMR Comments: PATIENT WAS FASTINGPERFORMED BY: S7 Balaya0 [facility] [id number] BY: [place] [employer] Website6370 [facility] [id number] Information: ADD [id number] AND DRAW FEE 99 0348 (67704) LP-IR 83 Comments: The LP-IR Score combines [...] (Abnormal) Choleste 220 mg/dL rol, (Abnormal) Total 03-Wcq-53535:49 METABOLIC PANEL, Comments: PATIENT WAS FASTINGPERFORMED BY: Fede [facility] Lep8525 [facility] [id number] BY: JERMAINE [facility] Fuwnlq0592 [facility] [id number] COMPREHENSIVE (27145) ALT (SGPT) 22 [iU]/L (Normal) Range: 0-40 [...] Glucose, Serum 107 mg/dL (Abnormal) Range: 65-99 94-Voq-82610:49 LIPID PANEL (04507) Comments: PATIENT WAS FASTINGPERFORMED BY: S7 [employer] [facility] [id number] BY: [employer]70 [facility] [id number] LDL Cholesterol Calc 135 mg/dL (Abnormal) Range: 0-99 LDL/HDL Ratio 4.1 {ratio_units} (Abnormal) Range: 0.0-3.2 VLDL Cholesterol José Luis 52 mg/dL (Abnormal) Range: 5-40 HDL Cholesterol 33 mg/dL (Abnormal) Comments: According to ATP-III Guidelines, HDL-C >59 mg/dL is considered anegative risk factor for CHD. Triglycerides 261 mg/dL (Abnormal) Range: 0-149 Cholesterol, Total 220 mg/dL (Abnormal) Range: 100-199 49-Swc-48382:49 CBC WITH MANUAL DIFF Comments: PATIENT WAS FASTINGPERFORMED BY: S7 [employer] [facility] [id number] BY: [employer] Dhdofl0118 [facility] [id number] (01508) Baso (Absolute) 0.1 {x10E3/uL} (Normal) Range: 0.0-0.2 [...] 3.80-5.10 WBC 6.7 {x10E3/uL} (Normal) Range: 4.0-10.5 7-Fnz-813063:35 MARYJANE CULTURE-OTHER (86699) Comments: PATIENT NOT FASTINGPERFORMED BY: [employer] Cyjfoe1681 [facility] [id number] Information: SRC:THRT [id number] Result 1 RRF (Normal) Comments: Routine respiratory bin Upper Respiratory Culture Final report (Normal) :07 Rapid Strep Test, Office (59654) Rapid Strep Test, Negative (Normal) Office :2 Potassium, Serum 3.8 mmol/L (Normal) Comments: PATIENT WAS FASTINGPERFORMED BY: CeNeRx BioPharmaSt. Luke's Warren HospitalFeivjf5675 [facility] [id number] 4 Range: 3.5-5.2 19-Kgt-376542:00 BILAT SCRN DIGITAL & CAD Radiology Report See Note (Normal) Comments: Exam Number: [id number] MAMMOGRAM, BILATERAL SCREENING DIGITAL AND CAD HISTORYRoutine [...] werealso examined with computer-aided detection s oftware ([employer] Reported By: KENNA SWEET M.D. 27-Feb-20098:24 Lipid Panel (46990) Comments: PATIENT WAS FASTINGClinical Information: ADD [id number], V59486 PERFORMED BY: [place] Renewable EnergyFreeman Neosho Hospital [id number] Cholesterol, Total 224 mg/dL (Abnormal) Range: 100-199 HDL Cholesterol 31 mg/dL (Abnormal) Comments: According to ATP-III Guidelines, HDL-C >59 mg/dL is considered anegative risk factor for CHD. LDL Cholesterol Calc 122 mg/dL (Abnormal) Range: 0-99 LDL/HDL Ratio 3.9 {ratio_units} (Abnormal) Range: 0.0-3.2 Triglycerides 354 mg/dL (Abnormal) Range: 0-149 VLDL Cholesterol José Luis 71 mg/dL (Abnormal) Range: 5-40 97-Fbe-491182:16 JESUS ALBERTO (ANTINUCLEAR ANTIBODY) Comments: PATIENT NOT FASTINGPERFORMED BY: [employer]70 [facility] [id number] (78101) Antinuclear Antibodies Direct Negative (Normal) 11-Trx-189664:16 C-REACTIVE PROTEIN (79219) Comments: PATIENT NOT FASTINGPERFORMED BY: [employer]70 [facility] [id number] C-Reactive Protein, Quant 8.0 mg/L (Abnormal) Range: 0.0-4.9 84-Flf-516235:16 CBC (AUTO) (41029) Comments: PATIENT NOT FASTINGPERFORMED BY: Occipital [facility] [id number] Hematocrit 42.4 % (Normal) Range: 34.0-44.0 Hemoglobin 14.4 g/dL (Normal) Range: 11.5-15.0 MCH 31.9 pg (Normal) Range: 27.0-34.0 MCHC 34.0 g/dL (Normal) Range: 32.0-36.0 MCV 94 fL (Normal) Range: 80-98 Platelets 160 {x10E3/uL} (Normal) Range: 140-415 RBC 4.52 {x10E6/uL} (Normal) Range: 3.80-5.10 RDW 14.1 % (Normal) Range: 11.7-15.0 WBC 7.6 {x10E3/uL} (Normal) Range: 4.0-10.5 :16 Folate (13346) Comments: PATIENT NOT FASTINGPERFORMED BY: CeNeRx BioPharmaSt. Luke's Warren HospitalZpxott8780 [facility] [id number] Folate (Folic Acid), Serum 17.4 ng/mL (Normal) Comments: Indeterminate: 3.4 - 5.4 Deficient: <3.4 :16 METABOLIC PANEL, COMPREHENSIVE Comments: PATIENT NOT FASTINGPERFORMED BY: CeNeRx BioPharmaDanielle Ville 1077370 [facility] [id number] (99231) A/G Ratio 1.2 (Normal) Range: 1.1-2.5 Albumin, [...] Sodium, Serum 142 mmol/L (Normal) Range: 135-145 20-Kdd-808004:16 RHEUMATOID FACTOR-QUANT (95349) Comments: PATIENT NOT FASTINGPERFORMED BY: [employer] Zzrshh0383 [facility] [id number] RA Latex Turbid. 9.3 {IU/mL} (Normal) Range: 0.0-13.9 06-Seh-622862:16 SED RATE ERYTHROCYTE (06146) Comments: PATIENT NOT FASTINGPERFORMED BY: [employer] Zcuksd6709 [facility] [id number] Sedimentation Rate-Westergren 21 mm/h (Normal) Range: 0-30 21-Ape-622276:16 TSH (57388) Comments: PATIENT NOT FASTINGPERFORMED BY: [employer] Bjklyu0431 [facility] [id number] TSH 2.690 {uIU/mL} (Normal) Range: 0.450-4.500 07-Dul-384614:16 VITAMIN B-12 (CYANOCOBALAMIN) Comments: PATIENT NOT FASTINGPERFORMED BY: [employer] Tgobny5317 [facility] [id number] (57584) Vitamin B12 348 pg/mL (Normal) Range: 211-911 23-Jan-20099:35 Lipid Panel (53094) Comments: PATIENT WAS FASTINGClinical Information: ADD [id number], P24591 PERFORMED BY: [facility] Darpzp1331 [facility] [id number] Cholesterol, Total 208 mg/dL (Abnormal) Range: 100-199 HDL Cholesterol 32 mg/dL (Abnormal) Comments: According to ATP-III Guidelines, HDL-C >59 mg/dL is considered anegative risk factor for CHD. LDL Cholesterol Calc 124 mg/dL (Abnormal) Range: 0-99 LDL/HDL Ratio 3.9 {ratio_units} (Abnormal) Range: 0.0-3.2 Triglycerides 261 mg/dL (Abnormal) Range: 0-149 VLDL Cholesterol José Luis 52 mg/dL (Abnormal) Range: 5-40 :47 HgA1C , Office (44725) HgA1C , Office 5.8 % (Normal) Range: 4.6 - 7.1 :47 Blood Glucose , Office (64820) Blood Glucose , Office 128 (Normal) :43 Urinalysis, Office (67493) UA - LEUKOCYTE ESTERASE Trace (Normal) UA [...] Indication: Acute sinusitis Planned Observations LIPID PANEL (21971)Indication: Mixed hyperlipidemia On: 0-Pvp-397309:45 Request Platelet 74580 (citrate, nonclumping tube)Indication: Thrombocytopenia, unspecified On: 22-Jul-20178:19 Request Metabolic Panel, Comprehensive (58253)Indication: Benign essential hypertension On: 83-Pfr-855356:46 Request MICROALBUMIN: CREATININE RATIO (87102) AND (76703)Indication: Benign essential hypertension On: :45 Request URINALYSIS (94815)Indication: Benign essential hypertension On: :45 Request CBC WITH MANUAL DIFF (61529)Indication: Benign essential hypertension On: :45 Request Platelet Count, Citrated (53262)Indication: Thrombocytopenia, unspecified On: :11 Request LIPOPROTEIN, BLD, BY NMR (26424)Indication: Mixed hyperlipidemia On: :07 Request Lipase (67419)Indication: Abdominal pain On: :24 Request Comments: add to hospital labs. Amylase (68721)Indication: Abdominal pain On: :24 Request Comments: add to hospital labs. Antiphospholipid atb (17393)Indication: Pulmonary emboli On: : Request ANTICOAG ANTTHROMB III & ASSAY (73575)Indication: Pulmonary emboli On: : Request METABOLIC PANEL, COMPREHENSIVE (13399)Indication: Benign essential hypertension On: :37 Request Comments: in three months (approximately) CBC with auto diff (77921)Indication: Benign essential hypertension On: :37 Request Comments: in three months (approximately) Troponin I (62108)Indication: Chest pain at rest On: 3-Izp-688751:01 Request CPK MB FRACTION (14970)Indication: Chest pain at rest On: 1-Dpd-993040:01 Request CREATINE KINASE TOTAL (97563)Indication: Chest pain at rest On: 9-Znm-730830:01 Request D-Dimer (24243)Indication: Chest pain at rest On: 4-Mte-870241:00 Request Metabolic Panel, Basic (49370)Indication: Chest pain at rest On: :58 Request CBC (Auto) (24183)Indication: Chest pain at rest On: :58 Request URINALYSIS, W/ MICRO (31108)Indication: Benign essential hypertension On: :29 Request METABOLIC PANEL, COMPREHENSIVE (16825)Indication: Benign essential hypertension On: :29 Request LIPID PANEL (32062)Indication: Benign essential hypertension On: :29 Request CBC W/AUTO DIFF WBC (74529)Indication: Benign essential hypertension On: :29 Request URINALYSIS (61815)Indication: UTI (lower urinary tract infection) On: :49 Request LIPID PANEL (89771)Indication: Benign essential hypertension On: : Request CBC WITH MANUAL DIFF (42159)Indication: Thrombocytopenia, unspecified On: :27 Request METABOLIC PANEL, COMPREHENSIVE (33153)Indication: Benign essential hypertension On: :27 Request TSH (THYROID STIMULATING HORMONE) (57491)Indication: Post-menopausal bleeding On: :37 Request PROLACTIN (11849)Indication: Post-menopausal bleeding On: :37 Request HEPATIC FUNCTION PANEL (75157)Indication: Hyperglyceridemia On: :05 Request LIPOPROTEIN, BLD, BY NMR (14548)Indication: Hyperglyceridemia On: :04 Request CBC, Platelets & Auto Diff (29724)Indication: Thrombocytopenia, unspecified On: :04 Request Comments: citrate tube Potassium Serum (08504)Indication: Hypokalemia On: 62-Djo-790496:36 Request Planned Encounters Medical; JULIANNEP Weight Check - On: 03-May-2018 13:00 [facility] Internal Medicine [place] [facility]; JULIANNEP Pre Wellness Exam (DB Nurse) - On: 26-Jul-2018 8:00 [facility] Internal [facility] [place] [facility]; VIP Wellness Exam (Doctor) - On: 16-Aug-2018 8:00 [facility] Internal Medicine Kelly Hannah MD, MD, Dana M Planned Procedures EKG (31282)By: Kelly Hannah MD On: 02-Dec-2017 Intent Kelly Hannah MD Radiology - Foot - LeftBy: Brielle On: 12-Aug-2017 Kelly Beltrán MD, MD, Dana M TDAP VACCINE >7 IM (19267)By: On: 22-Jul-2017 Kelly Espinal MD, MD, Dana Comments: tdap 0.5mL prefilled syringelot:[id number]: DELT IMpt tolerated wellAD CIRCUS ROUSTABOUT M MAMMOGRAM BREAST BILATERAL SCREENING On: 02-Apr-2017 Intent DIGITAL (72329)By: Kelly Hannah MD, MD, Dana M Kenalog Injection, 10 mgm On: 15-Feb-2017 Intent (J3301)By: Kelly Hannah MD Comments: lot numer [id number] 05/08 eliot [id number] 06/21/18 Kelly Hannah MD Echo CompleteBy: Kelly Hannah MD On: 10-Sep-2016 Intent Kelly Hannah MD Comments: rule out pericarditis and ? pericardial fluid EKG (82030)By: Kelly Hannah MD On: 04-Sep-2016 Intent Kelly Hannah MD Comments: see scanned document of test done to see results reviewed today with patient Bone Density StudyBy: Brielle FLYNN, On: 09-Jun-2016 Intent Kelly Hernnadez MD Kenalog Injection, 10 mgm On: 21-Apr-2016 Intent (J3301)By: Kelly Hannah MD Comments: buupivacaine lot 61-147-0k 06-21-17 kenalog [id number] 09-05 Kelly Hannah MD DOPPLER ULTRASOUND OF RIGHT UPPER On: 20-Apr-2016 Intent EXTREMITY FOR VENOUS THROMBOEMBOLISM (86448)By: Kelly Hannah MD, MD, Dana M MAMMOGRAM, SCREENING, BOTH BREAST On: 27-Feb-2016 Intent (04155)By: Kelly Hannah MD, MD, Dana M Venous Doppler - BothBy: Brielle FLYNN, On: 06-Dec-2015 Intent Kelly Hernandez MD Comments: lower legs rule out DVT ADMINISTRATION OF INFLUENZA VIRUS On: 18-Apr-2015 Intent VACCINE (G0008)By: Kelly Hannah MD Comments: Lot:[id number]:IMLocation:Rt deltoiiddose: .5mlGiven by:Kelly Potter MD FLU VAC, SPLIT, >3 YEARS, INTRAMUSC On: 18-Apr-2015 Intent (36426)By: Kelly Hannah MD Comments: Lot #:[id number] date:Amount given:0.5mlRoute: IMSite given:L DltdGiven by: Peyton CHAMPION and ABN signed Quad Kelly Gonzales MD BILATERAL MAMMOGRAMS (24775)By: On: 05-Nov-2014 Intent Kelly Hannah MD, MD, Dana M CT - Chest (IV Contrast Needed)By: On: 23-Jul-2014 Intent Kelly Hannah MD, MD, Dana M COMPUTED TOMOGRAPHY ANGIOGRAPHY OF On: 23-Jul-2014 Intent CHEST WITH AND WITHOUT CONTRAST Comments: rule out PE (41247)By: Kelly Hannah MD, MD, Dana M EKG (44555)By: Lindsey Verde DO On: 05-Jul-2014 Intent Comments: sinus johanny with no chg MAMMOGRAM, SCREENING, BOTH BREAST On: 26-Apr-2014 Intent (72851)By: Kelly Hannah MD, MD, Dana M BILATERAL MAMMOGRAMS (03496)By: On: 27-Mar-2014 Intent Kelly Hannah MD, MD, Dana M IMMUNIZ ADMNIN, 1 VAC, SNGL/COMBO On: 27-Mar-2014 Intent (93218)By: Kelly Hannah MD Comments: Lot #[id number]-L dltd, IMDose prefilled syringegiven by:MLJOE alanizNVIS and ABN signed Kelly Hannah MD FLU VAC, SPLIT, >3 YEARS, INTRAMUSC On: 27-Mar-2014 Intent (30490)By: Kelly Hannah MD, MD, Dana M Eprescribed prescriptions (G8553)By: On: 10-Oct-2013 Intent Kelly Hannah MD, MD, Dana M Phenergan Injection, up to 50 mg On: 22-Sep-2013 Intent (J2550)By: Nona Whiting CNP Comments: [id number], IM Nyla, CIRCUS ROUSTABOUT INFUSION, NORMAL SALINE SOLUTION , On: 22-Sep-2013 Intent 1000 CC (Special Coverage Instructions Apply. See MCM: 2049) (J7030)By: Nona Whiting CNP HYDRATION IV INFUSION, INIT On: 22-Sep-2013 Intent (49879)By: Nona Whiting CNP Eprescribed prescriptions (G8553)By: On: 10-Jul-2013 Intent Nathalie Nicole Breast Screening - BilateralBy: On: 06-Feb-2013 Intent Kelly Hannah MD, MD, Dana M IMMUNIZ ADMNIN, 1 VAC, SNGL/COMBO On: 06-Feb-2013 Intent (58135)By: SUZY [place] (67787)By: Tj, On: 06-Feb-2013 Intent SUZY Ultrasound - Abdomen Complete & On: 18-Jan-2013 Intent PelvisBy: Nona Whiting CNP EKG (78817)By: Kelly Hannah MD On: 12-Jul-2012 Intent Kelly Hannah MD Comments: see scanned document of test done to see results reviewed today with patient Eprescribed prescriptions (G8553)By: On: 12-Jul-2012 Intent Long CIRCUS ROUSTABOUT, Nyla L MAMMOGRAM, SCREENING, BOTH BREASTS On: 06-Oct-2011 Intent (08083)By: Kelly Hannah MD Comments: 11-04-11 Kelly Hannah MD MAMMOGRAM, SCREENING, BOTH BREASTS On: 28-Nov-2010 Intent (71806)By: Kelly Hannah MD, MD, Dana M MAMMOGRAM, SCREENING, BOTH BREASTS On: 23-Oct-2010 Intent (80017)By: Kelly Hannah MD, MD, Dana M EEGBy: Lindsey Verde DO On: 20-Aug-2010 Intent EKG (04223)By: Kelly Hannah MD On: 20-Dec-2009 Intent Kelly Hannah MD EKG (63921)By: Kelly Hannah MD On: 17-Jan-2009 Intent Kelly Hannah MD MAMMOGRAM, SCREENING, BOTH BREASTS On: 17-Jan-2009 Intent (32025)By: Kelly Hannah MD, MD, Dana M Pulse Oximetry (28021)By: Yung, On: 04-Jul-2008 Intent Gabriela Comments: 98% Phenergan Injection, up to 50 mg On: 25-Apr-2008 Intent (J2550)By: Nona Whiting CNP Comments: 25mg given IMAmt: 1mlLot: [id number]: 03/2010Route: IMSite: left hipTolerated: wellGiven By: NATASHA Plata INFUSION, NORMAL SALINE SOLUTION , On: 25-Apr-2008 Intent 1000 CC (Special Coverage Comments: IV Therapy initiated (Hamzah Black, CIRCUS ROUSTABOUT)22G, 1inchSite: right wristTolerated: wellB. NATASHA Mckinnon Instructions Apply. See MCM: 2049) (J7030)By: Nona Whiting CNP HYDRATION IV INFUSION, INIT On: 25-Apr-2008 Intent (23046)By: Nona Whiting CNP FLU VAC, SPLIT, >3 YEARS, INTRAMUSC On: 21-May-2006 Intent (80736)By: SUZY Spencer IMMUNIZ ADMNIN, 1 VAC, SNGL/COMBO On: 21-May-2006 Intent (05917)By: SUZY Spencer Planned Medications INFUSION, NORMAL SALINE [...] for Tdap vaccination (Renamed from Need for dbqhhaohzt-xoixkmf-dprmwhdio (Tdap) vaccine, adult/adolescent), Thrombocytopenia, unspecified Comprehensive Internal [...]
--- OUTSIDE RECORDS SUMMARY | 2018-07-16 04:41 | XMS RPT_ITS ---
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 Insurance:HUMANA HAMILTONDOB: Community [place] PPOPolicy [id number], [place] Number: Repository [phone]: 330 [id number] [phone] () Date:5508-35-75HH [address] [address]UP: 05/19/2018 Secondary NOT GIVENUNK [place] Insurance:SELF PAY [facility] Number: Effective Repository Date:2018-05-19 05/19/2018 POONAM FONTAINE Primary POONAM FONTAINE [place] [id number] Insurance:HUMANA HAMILTONDOB: Community [place] PPOPolicy [id number], [place] Number: Repository [phone]: 330 [id number] [phone] () Date:3679-73-00UL [address] [address]NK: 05/19/2018 Secondary NOT GIVENUNK [place] Insurance:SELF PAY [facility] Number: Effective Repository Date:2018-05-19 05/19/2018 POONAM FONTAINE Primary POONAM FONTAINE [place] [id number] Insurance:HUMANA HAMILTONDOB: Community [place] PPOPolicy [id number], [place] Number: Repository [id number]: (330 [id number] [phone] () Date:7845-52-85YU [address] [place] [address]KP: 05/19/2018 Secondary NOT GIVENUNK [place] Insurance:SELF PAY [facility] Number: Effective Repository Date:2018-05-19 04/05/2018 POONAM FONTAINE Primary POONAM [address] [id number] Insurance:HUMANA HAMILTONDOB: Community [place] PPOPolicy [id number], [place] Number: Repository [phone]: (330 [id number] [phone] (HP) Date:5663-81-98TZ [address] [place] [address]AV: 04/05/2018 Secondary NOT GIVENUNK [place] Insurance:SELF PAY [facility] Effective Rep[facility] Date:2018-02-18 02/14/2018 POONAM FONTAINE Primary POONAM FONTAINE [place] [id number] Insurance:HUMANA HAMILTONDOB: Community [facility] MEDICARE OPolicy [id number], [place] Number: Repository [phone]: (330) [id number] [phone] (HP) Date:2279-07-05KA [address] [address]CZ: 02/14/2018 Secondary NOT GIVENUNK [place] Insurance:SELF PAY [facility] Number: Effective Repository Date:2018-02-14 02/14/2018 POONAM FONTAINE Primary POONAM FONTAINE [place] [id number] Insurance:HUMANA HAMILTONDOB: Community [facility] MEDICARE OPolicy [id number], [place] Number: Repository [phone]: (330) [id number] [phone] (HP) Date:0390-61-75AZ [address] [address]BZ: 02/14/2018 Secondary NOT GIVENUNK [place] Insurance:SELF PAY [facility] Number: Effective Repository Date:2018-02-14 01/24/2018 POONAM FONTAINE Primary POONAM FONTAINE [place] [id number] Insurance:HUMANA HAMILTONDOB: [facility] MEDICARE OPolic [id number], [place] Number: Repository [phone]: (330) [id number] [phone] (HP) Date:9599-40-32KS [address] [address]FR: 01/24/2018 Secondary NOT GIVENUNK [place] Insurance:SELF PAY [facility] Number: Effective Repository Date:2018-01-18 01/19/2018 POONAM FONTAINE Primary POONAM FONTAINE [place] [id number] Insurance:HUMANA HAMILTONDOB: Community [place] PPOPolicy [id number] [facility] [place] Number: Repository [phone]: (330) [id number] [phone] (HP) Date:3087-68-26ED [address] [place] [address]QT: 01/19/2018 Secondary NOT GIVENUNK [place] Insurance:SELF PAY [facility] Number: Effective Repository Date:2018-01-19 08/12/2017 POONAM FONTAINE Primary POONAM FONTAINE [place] [id number] Insurance:HUMANA HAMILTONDOB: Community [place] PPOPolicy [id number] Jewish Health [place] Number: Repository [phone]: (330) [id number] [phone] (HP) Date:0072-91-45TH [address] [address]WO: 08/12/2017 Secondary NOT GIVENUNK [place] Insurance:SELF PAY [facility] Number: Effective Repository Date:2017-08-12 08/05/2017 POONAM FONTAINE Primary NOT GIVENUNK [place] [id number] Insurance:SELF PAY [place] Number: Effective Repository [address]Ctw: (330) Date:2017-07-28 [phone] (HP) 07/15/2017 POONAM FONTAINE Primary POONAM FONTAINE [place] [id number] Insurance:HUMANA HAMILTONDOB: Community [place] PPOPolicy [id number] [facility] Health [place] Number: Repository [address]Wak: (330) [id number] [phone] (HP) Date:5001-62-13CX [address] [address]BE: 07/15/2017 Secondary NOT GIVENUNK [place] Insurance:SELF PAY [facility] Number: Effective Repository Date:2017-05-24 07/14/2017 Poonam Fontaine Primary Poonam Minal [place] [id number] Insurance:HUMANA HamiltonDOB: Community [place] [facility] [id number] Number: Repository [address]Gcj: (853) [id number] [phone] () Date:3925-27-78KQ [address] [address]IDTWFUTFH, [place] [address]HA: 07/14/2017 Secondary NOT GIVENUNK [place] Insurance:SELF PAY [facility] Number: Effective Repository Date:2017-07-14
== END ==
PROVIDERS: Family Provider Internal Medicine; PCP Internal Medicine; Referring Provider Internal Medicine; Visit Provider Internal Medicine
DX: R41.0 Disorientation, unspecified (principal)
CPT/HCPCS: 70553; A9585

== ENCOUNTER → 2018-05-27 09:20 | Outpatient (CLI) | payer MEDICARE, SELFPAY ==
[2018-05-19 11:15] VITALS: BMI 36.7
--- NOTE | 2018-05-27 15:36 | EEG ---
- Electroencephalogram Date of service 05/27/2018 History EEG is being done in this 68 yr F to rule out seizures EEG Description: This is an 18 channel EEG with 10-20 lead placement system. Bipolar montages, Referential and Circumferential montages were reviewed. Photic stimulation and Hyperventilation were performed. The posterior dominant rhythm is 10 HZ synchronous, symmetric, reacting to eye opening and closing. Photo stimulation elicited normal driving response but no abnormal photoparoxysmal response, Hyperventilation did not elicit any abnormal photoparoxysmal response. Sleep and drowsiness was identified. There is no abnormal background slowing noted. There was no epileptiform discharges or electrographic seizures noted during this recording. EKG artefact noted during the record. EEG Interpretation This is a normal awake and asleep EEG. There is no epileptiform discharges or electrographic seizures noted during the record.
== END ==
PROVIDERS: Family Provider Internal Medicine; PCP Internal Medicine; Referring Provider Internal Medicine; Visit Provider Internal Medicine
DX: R41.0 Disorientation, unspecified (principal)
CPT/HCPCS: 95819

== ENCOUNTER → 2018-08-16 10:34 | Outpatient (CLI) | payer MEDICARE, SELFPAY ==
[2018-07-28 14:55] VITALS: BMI 39.9
--- NOTE | 2018-08-16 10:37 | RAD_ITS ---
STUDY: X-RAY - PELVIS AND LEFT HIP REASON FOR EXAM: Female, 68 years old. Hip pain. TECHNIQUE: 3 views of the pelvis and hip. COMPARISON: None. FINDINGS: There is a non-specific bowel gas pattern. There are multiple calcified phleboliths. There are mild degenerative changes of the visualized lower lumbar spine. There is mild inferior periarticular osteophyte formation of the lateral sacroiliac joints, suggesting degenerative osteoarthritic changes. Normal bilateral superior and inferior pubic rami. Normal pubic symphysis. Normal bilateral ischial tuberosities. Normal visualized femoral head. Normal acetabulum. Normal hip joint. Small degenerative calcification ejection along the lateral cortical margin of the greater tuberosity. No demonstrated osseous structural lesion or acute fracture. RAD/HIP, UNI W/ Pelvis 2-3 Views IMPRESSION: 1. Small calcific density along the lateral cortical margin of the greater tuberosity, otherwise normal left hip. 2. Mild degenerative changes in the lower lumbar spine and bilateral sacroiliac joints. Electronically Signed: Asif Walton, at 12:32 EST , Service support ,
== END ==
PROVIDERS: Family Provider Internal Medicine; PCP Internal Medicine; Referring Provider Internal Medicine; Visit Provider Internal Medicine
DX: M25.552 Pain in left hip (principal)
CPT/HCPCS: 73502

== ENCOUNTER → 2018-09-02 07:11 | Outpatient (CLI) | payer MEDICARE, SELFPAY ==
[2018-05-19 11:15] VITALS: BMI 36.7
[2018-07-28 14:55] VITALS: BMI 39.9
--- NOTE | 2018-09-02 07:14 | BI_ITS ---
MAMMOGRAPHY - BILATERAL SCREENING REASON FOR EXAM: Female, 68 years old. Routine annual screening examination. PERTINENT HISTORY: Non-contributory. TECHNIQUE: Digital bilateral breast juan (3D mammographic acquisition) in the CC and MLO projections. 2-D mediolateral oblique (MLO) and craniocaudad (CC) views of both breasts were obtained. CAD: Full Field Digital Mammography with Computer Added Detection was performed. COMPARISON: Comparison is made with prior study dated April 19, 2017 and March 23, 2016. FINDINGS: Breast Composition: There are scattered areas of fibroglandular density. There are no dominant masses or suspicious calcifications. Stable small benign-appearing bilateral axillary lymph nodes. No other significant abnormalities are identified. There has been no significant change since the prior study. BI/SCREENING MAMM (CAD), BILAT IMPRESSION: Stable bilateral screening mammogram. Yearly follow-up mammogram recommended. (A) ASSESSMENT CATEGORY: BIRADS Category 2: Benign. A letter regarding these results will be sent to the patient by the facility within 30 days. Approximately 10% of breast cancers are not detected by mammography. A normal mammogram should not delay biopsy of a clinically suspicious abnormality. [id number] Electronically Signed: Aaron Salgado, at 9:24 EDT , Service support ,
== END ==
PROVIDERS: Family Provider Internal Medicine; PCP Internal Medicine; Referring Provider Internal Medicine; Visit Provider Internal Medicine
DX: Z12.31 Encounter for screening mammogram for malignant neoplasm of breast (principal)
CPT/HCPCS: 77063; 77067

== ENCOUNTER → 2018-09-06 09:11 | Outpatient (CLI) | payer MEDICARE, SELFPAY ==
[2018-05-19 11:15] VITALS: BMI 36.7
[2018-07-28 14:55] VITALS: BMI 39.9
--- NOTE | 2018-09-06 10:00 | MRI_ITS ---
HISTORY: F/u to abnormal brain MRI 2017, Brain lesion. Confusion, memory loss EXAM/TECHNIQUE: MR Brain WO/W Contrast: 20 cc deodorant administered intravenously. 1.5 Elvia magnet. Multiplanar, multisequence technique. COMPARISON: 05/23/18 MRI brain. FINDINGS: # of images incl. paperwork: 348 No acute infarct, hemorrhage, or mass. No hydrocephalus. Flow voids preserved. Unchanged subcentimeter focus of enhancement in the right janina with no corresponding signal abnormality on the other sequences. Unchanged incidental small developmental venous anomaly in the left parietal lobe. Interval development of fluid in the left greater than right mastoid air cells. Paranasal sinuses patent. No acute osseous abnormality. MRI/Brain W/WO Contrast IMPRESSION: No concerning intracranial findings. 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 Interval development of left greater than right mastoid air cell fluid. Please correlate for tenderness or signs of infection. at 1639 Reported and signed by: Ajit Rodrigez MD Electronically Signed: Ajit Rodrigez, at 23:16 EDT Tel , Service support ,
[2018-09-12 08:16] LABS: CREATININE FINGERSTICK 1.06 mg/dL (0.55-1.02); EGFR FINGERSTICK 55 mL/min (>60)
== END ==
PROVIDERS: Family Provider Internal Medicine; PCP Internal Medicine
DX: G93.9 Disorder of brain, unspecified (principal)
CPT/HCPCS: 70553; A9575

== ENCOUNTER → 2019-03-07 | Outpatient (CLI) | payer MEDICARE, SELFPAY ==
[2018-07-28 14:55] VITALS: BMI 39.9
[2019-03-06 14:09] VITALS: BMI 38.4
--- NOTE | 2019-03-07 13:20 | BD_ITS ---
STUDY: DUAL ENERGY X-RAY ABSORPTIOMETRY / DXA REASON FOR EXAM: Female, 69 years old. The patient is postmenopausal. Loss of height. TECHNIQUE: Bone Mineral Density (BMD) measurements of lumbar spine and bilateral hips were obtained. COMPARISON: Comparison is made with prior study dated June 23, 2016. FINDINGS: Lumbar Spine (L1-L4): g/cm2 (1.429) / T-score (2.2) / Z-score (3.8) Findings are suggestive of normal bone density with a low fracture risk. Left Femur Total: g/cm2 (1.190) / T-score (1.4) / Z-score (2.7) Left Femoral Neck: g/cm2 (1.118) / T-score (0.6) / Z-score (2.1) Right Femur Total: g/cm2 (1.222) / T-score (1.7) / Z-score (3.0) Right Femoral Neck: g/cm2 (1.192) / T-score (1.1) / Z-score (2.7) The T-Scores on the most recent prior examination were: Lumbar Spine (L1-L4): There has been worsening of bone density since the previous examination. Left Femur Total: which represents a worsening of 0.1%. Right Femur Total: which represents an improvement of 0.2%. BD/Dexa Bone Density Study IMPRESSION: The patient is considered normal as outlined below according to World Kvng Organization (WHO) criteria with a low fracture risk. There has been mild worsening of bone density since the previous examination. Reference Information: The T-score is the number of standard deviations above or below the standard which is normal for young adults at their peak bone mineral density. The World Health Organization (WHO) interprets the T-scores as follows: Above -1 Normal bone density Between -1 and -2.5 Osteopenia Equal to / or below -2.5 Osteoporosis As a practical clinical guideline, osteopenia may be graded as follows: Mild -1 through -1.5 Moderate -1.6 through -2.0 Severe -2.1 through -2.4 The Z-score is the number of standard deviations above or below age-matched controls. A Z-score of less than -1.5 would be considered abnormal. References: 1. NIH Osteoporosis and Related Bone Diseases http://www.osteo.org 2. International Society for Clinical Densitometry http://www.iscd.org 3. National Osteoporosis Foundation http://www.nof.org Electronically Signed: Aaron Salgado, at 10:05 EDT , Service support ,
== END | disposition home or self-care (01) ==
LOC: OPBD 13:15
PROVIDERS: Family Provider Internal Medicine; PCP Internal Medicine; Referring Provider Internal Medicine; Visit Provider Internal Medicine
DX: Z78.0 Asymptomatic menopausal state (principal)
CPT/HCPCS: 77080

== ENCOUNTER → 2019-05-09 08:05 | Outpatient (CLI) | payer MEDICARE, SELFPAY ==
[2019-03-06 14:09] VITALS: BMI 38.4
[2019-05-09 09:25] LABS: AST(SGOT) 25 U/L (15-37); Alanine Aminotransfer ALT/SGPT 30 U/L (13-56); Albumin, Serum 3.4 g/dL (3.2-5.0); Alkaline Phosphatase 62 U/L (45-117); Bilirubin, Direct 0.14 mg/dL (0.00-0.30); Cholesterol 145 mg/dL (200); Globulin 3.9 g/dL (2.2-4.2); High Density Lipoprotein 42 mg/dL; Protein, Total 7.3 g/dL (6.4-8.2); Triglycerides 188 mg/dL; Very Low Density Lipoprotein 38 mg/dL (5-40)
== END ==
PROVIDERS: Family Provider Internal Medicine; PCP Internal Medicine; Referring Provider Internal Medicine Cardiovascular Disease; Visit Provider Internal Medicine Cardiovascular Disease
DX: E78.00 Pure hypercholesterolemia, unspecified (principal)
CPT/HCPCS: 36415; 80061; 80076

== ENCOUNTER → 2019-05-26 07:09 | Outpatient (CLI) | payer MEDICARE, SELFPAY ==
[2019-03-06 14:09] VITALS: BMI 38.4
--- NOTE | 2019-05-26 07:31 | MRI_ITS ---
STUDY: MRI RIGHT ANKLE WITHOUT CONTRAST REASON FOR EXAM: Female, 69 years old. Achilles pain TECHNIQUE: Standardized fat and water weighted pulse sequences were obtained in all 3 orthogonal planes. COMPARISON: None. FINDINGS: Normal subcutis adipose space. Normal posterior tibialis tendon. Normal flexor digitorum longus tendon. Normal flexor hallucis longus tendon. Normal peroneus longus and brevis tendons. Normal tibialis anterior tendon. Normal extensor hallucis longus tendon. Normal extensor digitorum longus tendons. There is tendinosis of the Achilles tendon with diffuse tendon thickening and partial tear of the deep and intratendinous fibers beginning approximately 1.4 cm above the calcaneal insertion and extending in an oblique manner 5.5 cm above the insertion. Normal plantar fascia. Normal plantar calcaneal tubercles. Normal intrinsic muscles of the rearfoot. Normal distal tibiofibular syndesmotic ligamentous complex. Normal lateral ligamentous complex. Normal subtalar ligaments and sinus tarsi. Normal deltoid ligamentous complexes. Normal plantar calcaneonavicular (spring) ligament. Normal tibiotalar articulation. Normal talar dome. There is mild degenerative changes and subchondral cysts of the subtalar joint. Normal talonavicular articulation. Normal calcaneocuboid articulation. Normal navicular-cuneiform articulations. MRI/Lower Ext Joint Only (Routine) IMPRESSION: Tendinosis of the Achilles tendon with diffuse tendon thickening and partial tear as described above. Mild degenerative changes of the subtalar joint. Electronically Signed: Shagufta Chay, at 9:59 EST Tel , Service support ,
== END ==
PROVIDERS: Family Provider Internal Medicine; PCP Internal Medicine; Referring Provider Podiatrist; Visit Provider Podiatrist
DX: M76.61 Achilles tendinitis, right leg (principal); M25.571 Pain in right ankle and joints of right foot; M77.31 Calcaneal spur, right foot
CPT/HCPCS: 73721

== ENCOUNTER → 2019-10-13 10:46 | Outpatient (CLI) | payer MEDICARE, SELFPAY ==
[2019-03-06 14:09] VITALS: BMI 38.4
--- NOTE | 2019-10-13 10:54 | VDLE_ITS ---
Reason For Study: pain Procedure LEFT Exam performed in department. GSV is normal. The exam was abbreviated due to the COVID 19 CFV is compressible, spontaneous, phasic, protocol. competent, and demonstrates normal The exam was diagnostic. augmentation. A preliminary report was called and/or faxed FV is compressible, spontaneous, phasic, to Dr. Hannah. competent and demonstrates normal augmentation. POP V is compressible, spontaneous, phasic, competent and demonstrates normal augmentation. T/P Trunk is compressible. PTV is compressible. LT PerV is compressible. Interpretation Summary Deep veins of the left lower extremity are patent and compressible segmentally. There is no evidence of left lower extremity deep vein thrombosis. Valvular competence appears intact within the proximal deep venous system on the left . The left great saphenous vein appears patent and compressible segmentally. Ordering Physician: Kelly Hannah Performed By: Jj Ortega RVT
== END ==
PROVIDERS: PCP Internal Medicine; Referring Provider Internal Medicine; Visit Provider Internal Medicine
DX: M79.605 Pain in left leg (principal)
CPT/HCPCS: 93971

== ENCOUNTER → 2020-01-03 12:42 | Outpatient (CLI) | payer MEDICARE, SELFPAY ==
[2019-03-06 14:09] VITALS: BMI 38.4
--- NOTE | 2020-01-03 12:45 | BI_ITS ---
MAMMOGRAPHY - BILATERAL SCREENING REASON FOR EXAM: Female, 69 years old. Routine annual screening examination. PERTINENT HISTORY: Non-contributory. TECHNIQUE: Digital bilateral breast desmond (3D mammographic acquisition) in the CC and MLO projections. 2-D mediolateral oblique (MLO) and craniocaudad (CC) views of both breasts were obtained. CAD: Full Field Digital Mammography with Computer Added Detection was performed. COMPARISON: Comparison is made with prior examination September 02, 2018 and April 19, 2017. FINDINGS: Breast Composition: There are scattered areas of fibroglandular density. There are no dominant masses or suspicious calcifications. Stable small benign-appearing bilateral axillary. No other significant abnormalities are identified. There has been no significant change since the prior study. BI/SCREEN MAMM (CAD) W/DESMOND BILAT IMPRESSION: Stable bilateral screening mammogram. Yearly follow-up mammogram recommended. (A) ASSESSMENT CATEGORY: BIRADS Category 2: Benign. A letter regarding these results will be sent to the patient by the facility within 30 days. Approximately 10% of breast cancers are not detected by mammography. A normal mammogram should not delay biopsy of a clinically suspicious abnormality. [id number] Electronically Signed: Aaron Salgado, at 14:05 EDT , Service support ,
== END ==
PROVIDERS: PCP Internal Medicine; Referring Provider Internal Medicine; Visit Provider Internal Medicine
DX: Z12.31 Encounter for screening mammogram for malignant neoplasm of breast (principal)
CPT/HCPCS: 77063; 77067

== ENCOUNTER → 2020-06-03 14:04 | Outpatient (CLI) | payer MEDICARE, SELFPAY ==
[2019-03-06 14:09] VITALS: BMI 38.4
[2020-06-03 14:58] LABS: D-Dimer Quantitative (DVT/PE) 0.45 FEU/ug/m (0.27-0.49)
== END ==
PROVIDERS: PCP Internal Medicine; Visit Provider Internal Medicine
DX: R07.9 Chest pain, unspecified (principal)
CPT/HCPCS: 84484; 85379

== ENCOUNTER → 2020-08-23 14:13 | Outpatient (CLI) | payer MEDICARE, SELFPAY ==
[2019-03-06 14:09] VITALS: BMI 38.4
--- NOTE | 2020-08-23 14:19 | CT_ITS ---
STUDY: CT ABDOMEN AND PELVIS WITH CONTRAST REASON FOR EXAM: Female, 70 years old. LLQ ABD PAIN RADIATION DOSAGE (If Supplied By Facility): CTDIvol = ( 19.98 ) mGy, DLP = ( 1247.02 ) mGycm TECHNIQUE: Transaxial images were obtained from the dome of the diaphragm to the symphysis pubis with oral contrast. Oral and amp; IV Readi-CAT and amp; 100mL Isovue-300 was administered. Sagittal and coronal images were reconstructed. Individualized dose optimization techniques were used for this CT. COMPARISON: None. FINDINGS: The visualized lung bases are unremarkable. The visualized portions of the heart are within normal limits. There is decreased attenuation of the liver consistent with steatosis. The patient is status post cholecystectomy. Normal spleen. Normal pancreas. Normal bilateral adrenal glands. There is a 1.8 cm x 1.9 cm cyst in the anterior lower pole of the right kidney. Normal left kidney. Normal visualized stomach. Normal small intestine. Normal colon. The appendix is visualized and appears normal. There is scattered atherosclerotic calcification of the abdominal aorta, without a demonstrated aneurysm. Normal inferior vena cava. Normal retroperitoneum. Normal urinary bladder. There is absence of the uterus consistent with a prior hysterectomy. There is a 2 cm x 2.2 cm rounded density calcification in the left adnexa. Correlation with ultrasound is recommended. Normal abdominal wall. There are degenerative changes of the visualized lumbar spine. CT/Abdomen/Pelvis WITH Contrast IMPRESSION: Status post cholecystectomy. 2 cm x 2.2 cm nodular density with calcification in the left adnexa. Correlation with ultrasound is recommended. The patient is status post hysterectomy. Electronically Signed: Aaron Salgado MD at 15:12 EST , Service support ,
[2020-08-23 14:41] LABS: CREATININE FINGERSTICK 1.2 mg/dL (0.55-1.02)
== END ==
PROVIDERS: PCP Internal Medicine; Referring Provider Internal Medicine; Visit Provider Internal Medicine
DX: R10.32 Left lower quadrant pain (principal)
CPT/HCPCS: 74177; Q9967

== ENCOUNTER → 2020-08-28 12:16 | Outpatient (CLI) | payer MEDICARE, SELFPAY ==
[2019-03-06 14:09] VITALS: BMI 38.4
--- NOTE | 2020-08-28 12:21 | US_ITS ---
STUDY: ULTRASOUND OF THE FEMALE PELVIS - COMPLETE REASON FOR EXAM: Female, [address] LMP: Status post hysterectomy TECHNIQUE: Transabdominal TECHNICAL QUALITY: Adequate. COMPARISON: CT 08/23/2020 FINDINGS: Status post hysterectomy and bilateral salpingo-oophorectomy.. There is no fluid in the cul-de-sac. The pre void volume of the bladder was ml. The post void volume of the bladder was ml. Polycystic ovary disease: No. US/Pelvic (Non ) IMPRESSION: Normal female pelvis. Electronically Signed: Pete Krueger MD at 13:09 EST Tel , Service support ,
== END ==
PROVIDERS: PCP Internal Medicine; Referring Provider Internal Medicine; Visit Provider Internal Medicine
DX: R93.5 Abnormal findings on diagnostic imaging of other abdominal regions, including retroperitoneum (principal)
CPT/HCPCS: 76856

== ENCOUNTER 2020-09-16 08:53 | Outpatient (RCR) | payer MEDICARE, SELFPAY ==
[2019-03-06 14:09] VITALS: BMI 38.4
--- NOTE | 2020-09-16 09:59 | HP.PTEVAL ---
Patient's Visit Information DIANA ESCUDERO is a 70 year old F referred to Physical Therapy by Dr. Kelly Hannah MD with a diagnosis of L hip flexor strain. Date of Evaluation: 09/16/20 Physical Therapist: Zach Frost PT, ATC - Visit Plan Frequency: 1x/Week Duration: 2 Weeks Plan: Pt was issued a HEP for hip flexor stretching - Subjective Pt reports she has had L hip pain for 3 mos. Pt reports her pain had an insidious onset in nature. Pt reports she had an ultrasound performed which showed no significan findings. Pt reports her pain is located on the anterior aspect of L hip. No tingling or numbness down L LE. No sleep difficulty secondary to pain. Pt reports no PMHx of L hip pain. Pt reports difficulty with standing after sitting for a long period of time. 1/10 pain at rest, 3/10 pain at worst. - Pain L hip Pain Intensity (Out of 10): 1 Pain Intensity Range: 3 - Objective Neuro: B LE sensation is WNL to light touch. B achilles reflex= 1/3. Palpation: Pt is very tender to the hip flexor muscle region. Muscle guarding noted. ROM: B LE's are WFL. MMT: B LE's are grossly 5/5 throughout. Flexibility: Mild limitations with L hip flexors - Goals Goal 1:: I with HEP in 1-2 visits Goal Time Frame: 2 Weeks - Rehabilitation Potential Physical Therapy Diagnosis: L hip pain and difficulty with sit to stand transfers secondary to L hip flexor strain Rehabilitation Potential: Good - Anticipated Interventions Patient/Client Instruction: Educate patient on: Condition, Plan of Care For the Purpose of:: To improve self management Therapeutic Exercise to Include: Flexibilty training, Passive ROM, Active ROM For the Purpose of:: To decrease pain, To increase ROM, To improve muscle performance and motor function Thank you for the opportunity to evaluate your patient. For Medicare and Medicare HMO plans, please review the plan of care and approve it. It will need to be FAXED BACK to us at [phone] for Medicare purposes. For Medicare only, by signing this I certify the plan of care. Please let me know if there are questions or concerns regarding this plan of care. Physician Signature: Date:
== END 2020-09-16 19:00 | disposition home or self-care (01) ==
LOC: PT 08:53
PROVIDERS: PCP Internal Medicine; Referring Provider Internal Medicine; Visit Provider Internal Medicine
DX: M25.552 Pain in left hip (principal)
CPT/HCPCS: 97161

== ENCOUNTER 2021-05-12 10:30 | Outpatient (RCR) | payer MEDICARE, SELFPAY ==
--- NOTE | 2021-02-27 15:24 | HP.PTEVAL ---
Patient's Visit Information DIANA ESCUDERO is a 71 year old F referred to Physical Therapy by Dr. Kelly Hannah MD with a diagnosis of L HIP PAIN. Date of Evaluation: 02/27/21 Physical Therapist: Yennifer Mueller PT, Cert MDT - Visit Plan Frequency: 2-3x /Week Duration: 4-6 Weeks Plan: AQUATIC THERAPY FOR PAIN RELEIF, POSTURE CORRECTION/STRENGTHENING, INSTRUCTION IN APPROPRIATE BODY MECHANICS AND ACTIVITY MODIFICATIONS. DLS STARTING WITH A NEUTRAL SPINE PROGRESSING ROM TOLERATED. DENISE LE ROM, STRETCHING AND STRENGTHENING. HEP INSTRUCTION. 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 Disability: NO. Present symptoms: DENISE LOW BACK PAIN. L HIP PAIN, LEFT THIGH PAIN AND L CALF PAIN. BURNING SENSATION. Present since: 2-3 YEARS AGO. Pain Scale: WORSE 8/10, LEAST 2/10. Currently: 2/10. Commenced as a result of: NO APPARENT REASON. Symptoms at onset: L HIP. Worse: GETTING UP FROM A SITTING POSITION, SITTING, HARD TO INITIATE GAIT AFTER WALKING. LYING ON L SIDE. WALKING. SHOPPING. Better: ICE, ALEVE. Disturbed sleep: YES - SLEEPING ON COUCH BECAUSE MORE PAINFUL IN BED. Previous history/Previous treatment: ABOUT 6 CORTISONE SHOTS IN L HIP BY DR. HANNAH OVER THE LAST 2-3 YEARS. LAST CORTISONE SHOT WAS LAST WEEK WITH JUST A LITTLE RELIEF. PATIENT REPORTS SHE HAS ALSO BEEN DOING EX'S GIVEN TO HER BY DR. HANNAH OVER THE LAST FEW YEARS BUT NOW THE EX'S AGGREVATE THE PAIN SO SHE STOPPED. Coughing/sneezing/straining: NEGATIVE. Gait: DIFFICULTY INITIATING GAIT AFTER SITTING BUT THEN IT BECOMES NORMAL. Difficulty initiating urinatin: NO. Accidents: NO. Unexplained weight loss: NO. Imaging: NONE OF BACK OR HIPS. PMH: HTN, HIGH CHOLESTEROL, SLEEPING PILL. Recent major surgery: B TKR'S - Objective Sitting/Standing Posture: POOR. INCREASED KYHPHOSIS. Lordosis: NORMAL TO INCREASED. Lateral shift: NO. Relevant shift: N/A. Active Correction of posture: NE. Other Observations: THIS PATIENT AMBULATES INDEP'LY INTO PT WITH A MILD LIMP ON A ON THE L LE. INDEP TRANSFER SIT TO STAND WITHOUT UE ASSIST. INCREASED LIMP LLE AFTER SITTING. Motor deficit: DENISE LE'S GROSSLY 5/5 WITH MMT'ING EXCEPT HIPS 4/5. Sensory deficit: HYPERSENSATIVITY OF L LATERAL LEG COMPARED TO RIGHT. RIGHT LATERAL KNEE NUMBNESS. ROM deficit: DENISE LE'S WFL EXCEPT L HIP FLEX (APPROX 25% LIMITED COMPARED TO RIGHT) AND DENISE HIP IR AND ER L > RIGHT BY APPROX 25% ALSO. PATIENT HAS ERP IN L HIP WITH FLEX AND IR ROM TESTING. POSITIVE L BLUE TEST. Reflexes: NT. Dural Signs: POSITIVE LLE. Lumbar mvmt loss: flex - MIN. ext - MOD. R SG - MOD. L SG - MOD. PATIENT DENIES INCREASED PAIN WITH LUMBAR ROM TESTING ALL PLANES. Core strength: POOR. Palpation: NO ACUTE LUMBOSACRAL TENDERNESS BUT TENDER IN L LATERAL HIP. TREATMENT: NEUROMUSCULAR REEDUCATION - RETRAINING OF MVMT AND POSTURE FOR SITTING, LYING AND STANDING ACTIVITIES. - Balance/Special Test Scores Oswestry Low Back Score: 18 Lower Extremity Functional Score: 30 - Goals Goal 1:: DECREASE C/O BACK AND L LE SX'S. Goal Time Frame: 4-6 Weeks Goal 2:: IMPROVE PERSONAL CARE, LIFTING, WALKING, SITTING, STANDING, SLEEP, SOCIAL LIFE, TRAVEL AND HOMEMAKING FUNCTION. Goal Time Frame: 4-6 Weeks Goal 3:: INSTRUCT IN PROPHYLAXIS Goal Time Frame: 4-6 Weeks - Anticipated Interventions Patient/Client Instruction: Educate patient on: Condition, Plan of Care, Risk Factors For the Purpose of:: To improve self management Therapeutic Exercise to Include: Strength training, Body mechanics, Postural training, Flexibilty training, Gait and locomotor training, Neuromotor development, In an aquatic setting, Dynamic Lumbar Stabilization For the Purpose of:: To decrease pain, To improve muscle performance and motor function, To increase tolerance to activity/condition/position, To improve ability of physical actions for home/community/work/leisure, To improve gait and locomotor functions Thank you for the opportunity to evaluate your patient. For Medicare and Medicare HMO plans, please review the plan of care and approve it. It will need to be FAXED BACK to us at [phone] for Medicare purposes. For Medicare only, by signing this I certify the plan of care. Please let me know if there are questions or concerns regarding this plan of care. Physician Signature: Date:
--- NOTE | 2021-04-18 11:47 | HP.PTREVAL ---
Dr. Kelly Hannah MD, It has been my pleasure to treat DIANA ESCUDERO over the last 11 visits for L HIP PAIN. Please see the progress note below for an update on the physical therapy plan of care! Subjective: PATIENT REPORTS THE CONSTANT IN HER LEFT HIP IS GONE. NO PAIN STANDING. LYING ON L SIDE STILL PROVOKES PAIN. DISTURBS SLEEP. PATIENT REPORTS SHE IS CONSIDERING MEMBERSHIP TO CONTINUE HER POOL EX'S. ALSO INTERESTED IN LAND EX. I REALLY FEEL MUCH BETTER'. Objective/Function: PATIENT WAS SEEN TODAY FOR RE-ASSESSMENT OF PROGRESS TOWARD THE SET PT GOALS AND THE NEED FOR FURTHER PHYSICAL THERAPY VS READINESS FOR DISCHARGE. PATIENT IS MAKING GREAT PROGRESS TOWARD ALL PT GOALS AND IS NOW INTERESTED IN AND A GOOD CANDIDATE FOR PROGRESSION TO LAND IN ADDITION TO CONTINUED INDEP POOL EX. UPON EXAM TODAY: Motor deficit: DENISE LE'S GROSSLY 5/5 WITH MMT'ING. Sensory deficit: DENISE LE LIGHT TOUCH SENSATION INTACT AND SYMMETRICAL NOW EXCEPT RIGHT LATERAL KNEE NUMBNESS. SHE IS NO LONGER HAVING THE HYPERSENSATIVITY IN THE L LATERAL THIGH LIKE SHE DID AT INITIAL EVAL. ROM deficit: DENISE LE'S WFL EXCEPT L HIP IR APPROX 10% LIMITED AND ER APPROX 20% LIMITED COMPARED TO THE RIGHT. NO PAIN WITH L HIP TESTING TODAY INCLUDING BLUE TEST. Reflexes: NT. Dural Signs: NEGATIVE DENISE LE'S. Lumbar mvmt loss: flex - NIL. ext - MOD. R SG - MOD. L SG - MOD. PATIENT DENIES INCREASED PAIN WITH LUMBAR ROM TESTING ALL PLANES. Core strength: POOR. Palpation: NO ACUTE LUMBOSACRAL TENDERNESS BUT SENIOR RESERVATIONS AGENT IN L LATERAL HIP. Plan Plan: GYM EX WITH LOG TOLERATED FOR EPPING [employer] MEMBERSHIP. TRANSITION TO LAND BASED PT FOR CONTINUED PAIN RELEIF, POSTURE CORRECTION/STRENGTHENING, INSTRUCTION IN APPROPRIATE BODY MECHANICS AND ACTIVITY MODIFICATIONS. DLS STARTING WITH A NEUTRAL SPINE PROGRESSING ROM TOLERATED. DENISE LE ROM, STRETCHING AND STRENGTHENING. HEP INSTRUCTION. Balance/Gait/Functional tests - Balance/Special Test Scores Oswestry Low Back Score: 6 Lower Extremity Functional Score: 51 Goals Goal 1:: DECREASE C/O BACK AND L LE SX'S. Goal Time Frame: 4-6 Weeks Goal Progress: Progressing Goal 2:: IMPROVE PERSONAL CARE, LIFTING, WALKING, SITTING, STANDING, SLEEP, SOCIAL LIFE, TRAVEL AND HOMEMAKING FUNCTION. Goal Time Frame: 4-6 Weeks Goal Progress: Progressing Goal 3:: INSTRUCT IN PROPHYLAXIS Goal Time Frame: 4-6 Weeks Goal Progress: Progressing Anticipated Interventions Patient/Client Instruction: Educate patient on: Condition, Plan of Care, Risk Factors For the Purpose of:: To improve self management Therapeutic Exercise to Include: Strength training, Body mechanics, Postural training, Flexibilty training, Gait and locomotor training, Neuromotor development, In an aquatic setting, Dynamic Lumbar Stabilization For the Purpose of:: To decrease pain, To improve muscle performance and motor function, To increase tolerance to activity/condition/position, To improve ability of physical actions for home/community/work/leisure, To improve gait and locomotor functions Please do not hesitate to contact me at [phone] by phone or if you have questions or concerns regarding this new plan of care! Sincerely, Yennifer Mueller PT, Cert MDT
--- NOTE | 2021-05-12 10:56 | HP.PTDCSUM ---
It has been my pleasure to treat DIANA ESCUDERO referred by Dr. Kelly Hannah MD, with the diagnosis of L HIP PAIN for a total of 17 visit(s). Discharge Date: 05/12/21 Please see the following information for a summary of their discharge status. Subjective: PATIENT REPORTS SHE IS DOING A LOT BETTER AND FEELS COMFORTABLE WITH BOTH LAND AND WATER EX PROGRAMS NOW. L hip Pain Intensity (Out of 10): 0 bilat LB Pain Intensity (Out of 10): 0 % Improvement: 97 Objective/Function: PATIENT WAS SEEN TODAY FOR RE-ASSESSMENT OF PROGRESS TOWARD THE SET PT GOALS AND THE NEED FOR FURTHER PHYSICAL THERAPY VS READINESS FOR DISCHARGE. PATIENT HAS MADE GREAT PROGRESS TOWARD ALL PT GOALS AND IS NOW APPROPRIATE FOR DISCHARGE TO [facility]. PATIENT IS AGREEABLE. UPON EXAM TODAY: Motor deficit: DENISE LE'S GROSSLY 5/5 WITH MMT'ING. Sensory deficit: DENISE LE LIGHT TOUCH SENSATION INTACT AND SYMMETRICAL NOW EXCEPT RIGHT LATERAL KNEE NUMBNESS. SHE IS NO LONGER HAVING THE HYPERSENSATIVITY IN THE L LATERAL THIGH LIKE SHE DID AT INITIAL EVAL. ROM deficit: DENISE LE'S WFL EXCEPT L HIP ER APPROX 20% LIMITED COMPARED TO THE RIGHT. NO PAIN WITH L HIP TESTING TODAY INCLUDING BLUE TEST. Reflexes: NT. Dural Signs: NEGATIVE DENISE LE'S. Lumbar mvmt loss: flex - NIL. ext - MOD. R SG - MIN. L SG - MIN. PATIENT DENIES INCREASED PAIN WITH LUMBAR ROM TESTING ALL PLANES. Core strength: POOR. 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 Goal 1:: DECREASE C/O BACK AND L LE SX'S. Goal Progress: Goal Met Goal 2:: IMPROVE PERSONAL CARE, LIFTING, WALKING, SITTING, STANDING, SLEEP, SOCIAL LIFE, TRAVEL AND HOMEMAKING FUNCTION. Goal Progress: Goal Met Goal 3:: INSTRUCT IN PROPHYLAXIS Goal Progress: Goal Met Plan: D/C TO INDEP EX - PATIENT AGREEABLE. If there are questions or concerns regarding this patient's physical therapy, please feel free to call me at [phone]. Thank you for the referral of this patient. Sincerely, Yennifer Mueller, PT, Cert MDT Balance/Gait/Functional tests - Balance/Special Test Scores Oswestry Low Back Score: 5 Lower Extremity Functional Score: 67
== END 2021-05-12 12:32 | disposition home or self-care (01) ==
LOC: PT 10:30
PROVIDERS: PCP Internal Medicine; Referring Provider Internal Medicine; Visit Provider Internal Medicine
DX: M25.552 Pain in left hip (principal)
CPT/HCPCS: 97110; 97112; 97113; 97162; 97164

== ENCOUNTER → 2021-10-07 | Outpatient (CLI) | payer MEDICARE, SELFPAY ==
--- NOTE | 2021-10-07 14:16 | BI_ITS ---
MAMMOGRAPHY - BILATERAL SCREENING 3-D TOMOSYNTHESIS REASON FOR EXAM: Female, 71 years old. SCREENING PERTINENT HISTORY: No significant family history. TECHNIQUE: 2-D mammograms and 3-D Tomosynthesis of the breast (s) were performed. CAD was performed. COMPARISON: 01/03/2020 FINDINGS: The breast composition is composed of scattered fibroglandular density. Scattered benign calcifications are seen. No dense spiculated masses or suspicious microcalcifications are identified. No architectural distortion is identified. There is no skin thickening or retraction. There has been no significant change since the prior study. BI/SCRN MAMM (CAD)W/DESMOND BILAT IMPRESSION: No mammographic signs of malignancy. Routine yearly mammograms recommended. ASSESSMENT CATEGORY: BIRADS Category 1: Negative. A letter regarding these results will be sent to the patient by the facility within 30 days. FOLLOW UP RECOMMENDATION: Yearly follow up mammogram recommended. (A) Approximately 10% of breast cancers are not detected by mammography. A normal mammogram should not delay biopsy of a clinically suspicious abnormality. Electronically Signed: Pete Krueger MD at 15:42 EDT ,
--- NOTE | 2021-10-07 14:24 | BD_ITS ---
STUDY: DUAL ENERGY X-RAY ABSORPTIOMETRY / DXA REASON FOR EXAM: Female, 71 years old. [id number]. Patient is postmenopausal. TECHNIQUE: Bone Mineral Density (BMD) measurements of lumbar spine and bilateral hips were obtained. COMPARISON: Comparison is made with prior study 03/07/2019. FINDINGS: Lumbar Spine (L1-L4): g/cm2 (1.306) / T-score (2.6) / Z-score (4.7) Findings are suggestive of normal bone density with a low fracture risk. Left Femur Total: g/cm2 (1.181) / T-score (2.0) / Z-score (3.4) Left Femoral Neck: g/cm2 (0.943) / T-score (0.8) / Z-score (2.6) Right Femur Total: g/cm2 (1.208) / T-score (2.2) / Z-score (3.7) Right Femoral Neck: g/cm2 (0.994) / T-score (1.3) / Z-score (3.1) The T-Scores on the most recent prior examination were: Lumbar Spine (L1-L4): There has been worsening of bone density since the previous examination. Left Femur Total: which represents an improvement of 5.6%. Right Femur Total: which represents an improvement of 5%. BD/Dexa Bone Density Study IMPRESSION: The patient is considered normal as outlined below according to World Kvng Organization (WHO) criteria with a low fracture risk. There has been improvement of bone density since the previous examination. Reference Information: The T-score is the number of standard deviations above or below the standard which is normal for young adults at their peak bone mineral density. The World Health Organization (WHO) interprets the T-scores as follows: Above -1 Normal bone density Between -1 and -2.5 Osteopenia Equal to / or below -2.5 Osteoporosis As a practical clinical guideline, osteopenia may be graded as follows: Mild -1 through -1.5 Moderate -1.6 through -2.0 Severe -2.1 through -2.4 The Z-score is the number of standard deviations above or below age-matched controls. A Z-score of less than -1.5 would be considered abnormal. References: 1. NIH Osteoporosis and Related Bone Diseases www osteo.org 2. International Society for Clinical Densitometry www iscd.org 3. National Osteoporosis Foundation www nof.org Electronically Signed: Aaron Salgado MD at 14:31 EDT ,
== END | disposition home or self-care (01) ==
LOC: OPBD 14:14
PROVIDERS: PCP Internal Medicine; Referring Provider Internal Medicine; Visit Provider Internal Medicine
DX: Z78.0 Asymptomatic menopausal state (principal); Z12.31 Encounter for screening mammogram for malignant neoplasm of breast
CPT/HCPCS: 77063; 77067; 77080

== ENCOUNTER → 2022-09-08 | Outpatient (CLI) | payer MEDICARE, SELFPAY ==
--- NOTE | 2022-09-08 11:30 | MRI_ITS ---
ACR Level 3 findings have been noted. An addendum which confirms receipt of the report will follow. INDICATION: Transient global amnesia, previous MRI in 2019 showed abnormal area EXAMINATION: MRI - MR Brain WO/W Contrast TECHNIQUE: Multiplanar and multisequence MR images of the brain were obtained without and with gadolinium. IV Contrast Dosage and Agent: None. COMPARISON: MRI 09/06/2018. FINDINGS: BRAIN PARENCHYMA: Within the right paracentral posterior janina there is an enhancing focus visualized on series 10 image 8 measuring 5 mm transverse by 4 mm AP by 4 mm craniocaudal. On precontrast imaging this demonstrates no evidence of appreciable signal abnormality. Diffusion-weighted/echoplanar imaging demonstrates no evidence of acute ischemia at this site. Differential considerations for this lesion could represent vascular malformation as there is linear contrast enhancement extending anteriorly in the janina to its anterior surface. Other considerations would include primary neoplasm or metastatic disease. A primary demyelinating process would be considered less likely. No MRI evidence of hemorrhage. No evidence of acute infarct. No intracranial mass or mass effect. There is preservation of the contreras/white matter interface. Normal sella turcica, pituitary gland, infundibular stalk, optic chiasm and hypothalamus. 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 INTERNAL AUDITORY CANALS: The internal auditory canals are well visualized and patent. No mass identified. CSF SPACES: Appropriate for age. No hydrocephalus. Basal cisterns are patent. VASCULAR SYSTEM: Normal flow voids in the major intracranial circulation. CALVARIUM, SKULL BASE, PARANASAL SINUSES AND MASTOID AIR CELLS: Clear. No expansile changes. ORBITS: Both globes, extraocular muscles, optic nerves and retrobulbar fat appear unremarkable. Interval resolution of left mastoid air cell disease. MRI/Brain W/WO Contrast IMPRESSION: Enhancing focus right paracentral portion of janina. Differential considerations would include vascular malformation, neoplastic disease primary or metastatic or less likely demyelinating process. Electronically Signed: Hakeem Contreras MD, GREGORY at 13:33 EDT ,
[2022-09-08 11:56] LABS: CREATININE FINGERSTICK 0.9 mg/dL (0.55-1.02); EGFR FINGERSTICK > 60.0000 mL/min (>60)
== END | disposition home or self-care (01) ==
PROVIDERS: PCP Internal Medicine; Referring Provider Internal Medicine; Visit Provider Internal Medicine
DX: R93.89 Abnormal findings on diagnostic imaging of other specified body structures (principal)
CPT/HCPCS: 70553; A9575

== ENCOUNTER → 2022-10-26 | Outpatient (CLI) | payer MEDICARE, SELFPAY ==
--- NOTE | 2022-10-26 15:16 | BI_ITS ---
MAMMOGRAPHY - BILATERAL SCREENING REASON FOR EXAM: Female, 72 years old. Routine annual screening examination. PERTINENT HISTORY: Non-contributory. TECHNIQUE: Digital bilateral breast desmond (3D mammographic acquisition) in the CC and MLO projections. 2-D mediolateral oblique (MLO) and craniocaudad (CC) views of both breasts were obtained. CAD: Full Field Digital Mammography with Computer Added Detection was performed. COMPARISON: Comparison is made with prior study October 07, 2021 and January 03, 2020. FINDINGS: Breast Composition: There are scattered areas of fibroglandular density. There are no dominant masses or suspicious calcifications. No other significant abnormalities are identified. There has been no significant change since the prior study. BI/SCRN MAMM (CAD)W/DESMOND BILAT IMPRESSION: Stable bilateral screening mammogram. Yearly follow-up mammogram recommended. (A) ASSESSMENT CATEGORY: BIRADS Category 1: Negative. A letter regarding these results will be sent to the patient by the facility within 30 days. Approximately 10% of breast cancers are not detected by mammography. A normal mammogram should not delay biopsy of a clinically suspicious abnormality. [id number] Electronically Signed: Aaron Salgado MD at 8:40 EDT ,
== END | disposition home or self-care (01) ==
LOC: OPBI 15:14
PROVIDERS: PCP Internal Medicine; Referring Provider Internal Medicine; Visit Provider Internal Medicine
DX: Z12.31 Encounter for screening mammogram for malignant neoplasm of breast (principal)
CPT/HCPCS: 77063; 77067

== ENCOUNTER → 2022-10-29 | Outpatient (CLI) | payer MEDICARE, SELFPAY ==
[2022-10-29 10:20] LABS: Absolute Lymphocyte Count 1.75 X10^3/uL (0.83-4.51); Absolute Neutrophil Count 5.3 X10^3/uL (2.0-7.7); Basophil# 0.07 X10^3/uL; Basophil% 0.9 % (0-1); Eosinophil# 0.17 X10^3/uL; Eosinophils% 2.1 % (0-5); Hematocrit 46.9 % (37-47); Hemoglobin 15.6 g/dL (12.0-15.0); Lymphocyte # 1.75 X10^3/ul (0.83-4.51); Lymphocyte % 21.3 % (19-41); Mean Corp Hgb Conc 33.3 g/dL (32-36); Mean Corpuscular Hgb 32.2 pg (27.0-32.0); Mean Corpuscular Volume 96.9 fL (81-99); Mean Platelet Vol. 13.1 fl (6.2-12.0); Monocyte# 0.89 X10^3/uL; Monocyte% 10.8 % (0-10); NRBC Flagged by Analyzer 0.4 % (0-5); Neutrophil % 64.5 % (47-70); POSITIVE COUNT YES; RBC Distribution Width CV 13.1 % (11.6-14.6); RBC Distribution Width SD 46.8 fl (35.1-43.9); Red Blood Count 4.84 M/mm3 (4.2-5.4); White Blood Count 8.2 K/mm3 (4.4-11.0)
[2022-10-29 10:32] LABS: Partial Thromboplast Time 26.9 Seconds (24.1-36.2); Prothrombin Time (Protime)PT. 12.7 SECONDS (11.7-14.9)
[2022-10-29 10:42] LABS: ALB/GLOB Ratio 0.9 RATIO (0.9-2.4); AST(SGOT) 49 U/L (15-37); Alanine Aminotransfer ALT/SGPT 45 U/L (13-56); Albumin, Serum 3.3 g/dL (3.2-5.0); Alkaline Phosphatase 71 U/L (45-117); Anion Gap 10 (5-15); BUN 19 mg/dL (7-18); BUN/Creat Ratio 15.2 RATIO (10-20); Calcium,Total 9.2 mg/dL (8.5-10.1); Chloride 108 mmol/L (98-107); Creatinine, Serum 1.25 mg/dL (0.55-1.02); EST Glomerular Filtration Rate 45 mL/min (>60); Est Glom Filt Rate - Afr Amer 54 mL/min (>60); Globulin 3.6 g/dL (2.2-4.2); Glucose 107 mg/dL (74-106); Potassium 4.5 mmol/L (3.5-5.1); Protein, Total 6.9 g/dL (6.4-8.2); Sodium Level 144 mmol/L (136-145)
[2022-10-29 11:52] LABS: Differential Indicated SCAN CRITERIA MET; Platelet Estimate SLT DEC (ADEQ)
== END | disposition home or self-care (01) ==
LOC: CT 10:08
PROVIDERS: PCP Internal Medicine; Visit Provider Internal Medicine
DX: R10.30 Lower abdominal pain, unspecified (principal)
CPT/HCPCS: 80053; 85025; 85610; 85730

== ENCOUNTER → 2022-10-29 | Outpatient (CLI) | payer MEDICARE, SELFPAY ==
--- NOTE | 2022-10-29 13:48 | CT_ITS ---
STUDY: CT Abdomen And Pelvis W/ Contrast Injection 10/29/2022 5:16 PM REASON FOR EXAM: Female, 72 years old. Abdominal pain ABD PAIN Individualized dose optimization techniques were used for this CT. COMPARISON: 08.23.20. TECHNIQUE: CT Abdomen And Pelvis W/ Contrast Injection Oral and amp; IV Gastrografin and amp; 100mL Isovue-300 FINDINGS: There are atherosclerotic calcifications of visualized coronary arteries. The visualized portions of the heart are within normal limits. Normal liver. There is non-visualization of the gallbladder, which may be secondary to either contraction or a prior cholecystectomy. Normal spleen. Normal pancreas. Normal bilateral adrenal glands. There are hypodensities in the right kidney. These are consistent for cysts. No follow up required. Cortical scarring of the right kidney. No acute findings of the left kidney. Normal visualized stomach. Normal small intestine. Wall thickening and inflammation of the descending colon and rectosigmoid colon suggesting colitis. There are surgical clips in the region of the appendix consistent with a prior appendectomy. Rectosigmoid anastomosis. There are calcifications of the abdominal aorta. This is consistent for atherosclerotic disease. There is NO abdominal aortic aneurysm. Vascular workup can be obtained based on clinical correlation. Normal inferior vena cava. Subcentimeter mesenteric lymph nodes. Normal urinary bladder. There is absence of the uterus consistent with a prior hysterectomy. There is an umbilical hernia containing fat. There are diffuse degenerative changes of the visualized lumbar spine. There is a Grade 1 anterolisthesis of L4 on L5. Vacuum disc phenomenon. CT/Abdomen/Pelvis WITH Contrast IMPRESSION: (NOT LISTED IN ORDER OF SIGNIFICANCE) Wall thickening and inflammation of the descending colon and rectosigmoid colon suggesting colitis. Other findings as above. Electronically Signed: Zach Alanis MD at 17:21 EDT ,
== END | disposition home or self-care (01) ==
LOC: CT 13:46
PROVIDERS: PCP Internal Medicine; Referring Provider Internal Medicine; Visit Provider Internal Medicine
DX: R10.30 Lower abdominal pain, unspecified (principal)
CPT/HCPCS: 74177; 80053; 85025; 85610; 85730; Q9967

== ENCOUNTER 2022-11-11 10:00 | Outpatient (RCR) | payer MEDICARE, SELFPAY ==
--- NOTE | 2022-09-16 09:36 | HP.PTEVAL_ITS ---
Patient's Visit Information DIANA ESCUDERO is a 72 year old F referred to Physical Therapy by Dr. Kelly Hannah MD with a diagnosis of LEFT SHOULDER PAIN. Date of Evaluation: 09/16/22 Physical Therapist: Tyson Alas PT, Cert MDT, OCS - Visit Plan Frequency: 2x /Week Duration: 4 Weeks Plan: PT INTERVETIONS MANUAL THERAPY STM/STRETCHING ,POSTURAL EX'S ,FLEXABILITY AND US - Subjective This 72 y/o female presents to physical therapy with left arm pain. Patient has had left arm pain ~ 1 month. Patient was ripping up carpet and padding then next day soreness then tingling/paresthesia. Patient seen DR r/o cardiac . Initially ,MRI brain - h/o tumor. No medication except 6 day prednisone. Symptoms tingling in arm numbness and aches in shoulder. Aggravating factors pressure ,lifting heaving . Alleviating rest. Symptoms affects sleeping . Denies GONCALVES/dizziness/nausea. No h/o trauma or diagnostics to shoulder. Patient goals to have no pain. SOCAIL: . VOCATION: - Pain Left Shoulder Pain Intensity (Out of 10): 2 Pain Intensity Range: 10 - Objective POSTURE: mild forward posture. NEURO: C/O paresthesia/tingling left , reflexes C5-6-7 2/3. AROM BUE : WFL. PALAPTION: tender UT/levator -left. CERVICAL ROM: flexion min loss ,extension min loss ,rotation /lateral flexion mod loss no symptoms. MMT: RTC 4/5 ,shoulder 4-/5 ,biceps/triceps/wrist extension /flexion. 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 - Special Tests C/S Radiculapathy - Left Upper limb tension test: Negative C/S Radiculapathy - Right Upper limb tension test: Negative C/S Radiculapathy - Left Spurlings: Negative C/S Radiculapathy - Right Spurlings: Negative C/S Radiculapathy - Left Cervical distraction: Negative C/S Radiculapathy - Right Cervical distraction: Negative C/S Radiculapathy - Left Relief test: Negative C/S Radiculapathy - Right Relief test: Negative Sharp Dora: Negative Vertebral Artery Test: Negative Alar Ligament Test: Negative Cervical Sitting: Protrusion - Mechanical Response: No effect Cervical Sitting: Protrusion - Symptoms During Testing: No effect Cervical Sitting: Protrusion - Symptoms After Testing: No effect Cervical Sitting: Retraction - Mechanical Response: No effect Cervical Sitting: Retraction - Symptoms During Testing: No effect Cervical Sitting: Retraction - Symptoms After Testing: No effect Cervical Sitting: Retraction-Extension - Mechanical Response: No effect Cerv Sitting: Retraction-Extension - Symptoms During Testing: No effect Cerv Sitting: Retraction-Extension - Symptoms After Testing: No effect Cervical Sitting: Sidebend Right - Mechanical Response: No effect Cervical Sitting: Sidebend Right - Symptoms After Testing: No effect Cervical Sitting: Sidebend Left - Mechanical Response: No effect Cervical Sitting: Sidebend Left - Symptoms During Testing: No effect Cervical Sitting: Sidebend Left - Symptoms After Testing: No effect Cervical Sitting: Rotation Right - Mechanical Response: No effect Cervical Sitting: Rotation Right - Symptoms During Testing: No effect Cervical Sitting: Rotation Right - Symptoms After Testing: No effect Cervical Sitting: Rotation Left - Mechanical Response: No effect Cervical Sitting: Rotation Left - Symptoms During Testing: No effect Cervical Sitting: Flexion - Mechanical Response: No effect Cervical Sitting: Flexion - Symptoms During Testing: No effect Cervical Sitting: Flexion - Symptoms After Testing: No effect L Shoulder Empty Can - SS: Positive L Shoulder Belly Press - SupScap: Positive L Shoulder Neer - Impingement: Positive L Shoulder Benedict Ozzie - Impingement: Positive L Shoulder Speeds Test - Labrum/Biceps: Positive L Shoulder AC Resisted - AC: Positive L Shoulder Shrug Sign - OA/Adhesive Capsulitis: Positive - Balance/Special Test Scores Oswestry Neck Score: 16 - Goals Goal 1:: Patient to be I with HEP Goal Time Frame: 4-6 Weeks Goal 2:: Patient to demonstrate 50% improvement with decrease symptoms to improve function Goal Time Frame: 4-6 Weeks Goal 3:: Patient to minimize paresthesia/tingling in arm 50 % during function Goal Time Frame: 4-6 Weeks Goal 4:: Patient to improve neck oswestry score by 5 points or > to improve function/qol Goal Time Frame: 2-4 Weeks - Rehabilitation Potential Physical Therapy Diagnosis: This patient has paresthesia/tingling left arm with tenderness levator with symptoms inconclusive with with NW/NB with positioning ,movement with motion testing cervical and shoulder assessment thus benefit from skilled PT Rehabilitation Potential: Good - Anticipated Interventions Patient/Client Instruction: Educate patient on: Condition For the Purpose of:: To decrease pain, To increase ROM, To improve muscle performance and motor function, To improve ability to perform ADL's, To increase tolerance to activity/condition/position, To improve ability of physical actions for home/community/work/leisure, To improve health of tissue, To decrease soft tissue restriction, To increase flexibility/ROM Therapeutic Exercise to Include: Strength training, Postural training, Flexibilty training, Passive ROM, Active ROM For the Purpose of:: To decrease pain, To increase ROM, To improve nutrient delivery to tissue, To increase oxygenation perfusion, To improve performance and independence with ADL's, To improve ability of physical actions for home/community/work/leisure, To improve health of tissue, To decrease soft tissue restriction Manual Therapy Techniques to Include: Mobilization, Soft tissue mobilization Comment: CERVICAL For the Purpose of:: To decrease pain, To increase ROM, To improve muscle performance and motor function, To improve health of tissue, To decrease soft tissue restriction, To increase flexibility/ROM Cryotherapy (ice pack, ice massage): Yes Thermo therapy (hot pack): Yes Ultrasound (thermal/non thermal): Yes For the Purpose of:: To decrease pain, To increase ROM, To improve nutrient delivery to tissue, To increase oxygenation perfusion, To improve health of tissue, To decrease soft tissue restriction Thank you for the opportunity to evaluate your patient. For Medicare and Medicare HMO plans, please review the plan of care and approve it. It will need to be FAXED BACK to us at [phone] for Medicare purposes. For Medicare only, by signing this I certify the plan of care. Please let me know if there are questions or concerns regarding this plan of care. Physician Signature: Date:
--- NOTE | 2022-11-11 10:59 | HP.PTDCSUM ---
It has been my pleasure to treat DIANA ESCUDERO referred by Dr. Kelly Hannah MD, with the diagnosis of LEFT SHOULDER PAIN for a total of 13 visit(s). Discharge Date: 11/11/22 Please see the following information for a summary of their discharge status. Subjective: Doing alot better Left Shoulder Pain Intensity (Out of 10): 0 % Improvement: 95 Objective/Function: POSTURE WFL. PALAPTION: tender levator UT. NEURO: intact. CERVICAL ROM: flexion WFL ,lateral flexion/rotation /extension min loss. MMT: 4/5 Goal 1:: Patient to be I with HEP Goal Progress: Goal Met Goal 2:: Patient to demonstrate 50% improvement with decrease symptoms to improve function Goal Progress: Goal Met Goal 3:: Patient to minimize paresthesia/tingling in arm 50 % during function Goal Progress: Goal Met Goal 4:: Patient to improve neck oswestry score by 5 points or > to improve function/qol Goal Progress: Goal Met Plan: D/C Discharge Comments: hep ,massage If there are questions or concerns regarding this patient's physical therapy, please feel free to call me at [phone]. Thank you for the referral of this patient. Sincerely, Tyson Alas, PT, Cert MDT, OCS Balance/Gait/Functional tests - Balance/Special Test Scores Oswestry Neck Score: 4
== END 2022-11-11 19:00 | disposition home or self-care (01) ==
LOC: PT 10:00
PROVIDERS: PCP Internal Medicine; Referring Provider Internal Medicine; Visit Provider Internal Medicine
DX: M79.602 Pain in left arm (principal)
CPT/HCPCS: 97035; 97110; 97140; 97162

== ENCOUNTER → 2023-10-18 | Outpatient (CLI) | payer MEDICARE, SELFPAY ==
--- NOTE | 2023-10-18 09:47 | VDLE_ITS ---
Reason For Study: [place] LLE RIGHT LEFT CFV is compressible, spontaneous, phasic, GSV is normal. competent and demonstrates normal CFV is compressible, spontaneous, phasic, augmentation. competent, and demonstrates normal Procedure augmentation. This is a venous duplex using B-mode, color FV is compressible, spontaneous, phasic, flow and spectral Doppler. competent and demonstrates normal Exam performed in department. augmentation. A preliminary report was called and/or faxed POP V is compressible, spontaneous, phasic, to Dr. Hannah. competent and demonstrates normal augmentation. T/P Trunk is compressible. PTV is compressible. LT PerV is compressible. VL/Venous Duplex US, Unilateral Interpretation Summary There is no evidence of left lower extremity deep vein thrombosis. Left great s aphenous vein appears patent and compressible segmentally. Normal flow patterns right common femoral vein Ordering Physician: Kelly Hannah Referring Physician: Kelly Hannah Performed By: Rachana Egan, ANNEMARIE, RVT
== END | disposition home or self-care (01) ==
LOC: CVS 09:46
PROVIDERS: PCP Internal Medicine; Referring Provider Internal Medicine; Visit Provider Internal Medicine
DX: M79.605 Pain in left leg (principal); M25.472 Effusion, left ankle
CPT/HCPCS: 93971

== ENCOUNTER → 2023-10-28 | Outpatient (CLI) | payer MEDICARE, SELFPAY ==
--- NOTE | 2023-10-28 12:07 | BI_ITS ---
MAMMOGRAPHY - BILATERAL SCREENING REASON FOR EXAM: Female, 73 years old. Routine annual screening examination. PERTINENT HISTORY: Non-contributory. TECHNIQUE: Digital bilateral breast desmond (3D mammographic acquisition) in the CC and MLO projections. 2-D mediolateral oblique (MLO) and craniocaudad (CC) views of both breasts were obtained. CAD: Full Field Digital Mammography with Computer Added Detection was performed. COMPARISON: Comparison is made with prior study October 2022 and October 07, 2021. FINDINGS: Breast Composition: There are scattered areas of fibroglandular density. There are no dominant masses or suspicious calcifications. No other significant abnormalities are identified. There has been no significant change since the prior study. BI/SCRN MAMM (CAD)W/DESMOND BILAT IMPRESSION: Stable bilateral screening mammogram. Yearly follow-up mammogram recommended. (A) ASSESSMENT CATEGORY: BIRADS Category 1: Negative. A letter regarding these results will be sent to the patient by the facility within 30 days. Approximately 10% of breast cancers are not detected by mammography. A normal mammogram should not delay biopsy of a clinically suspicious abnormality. [id number] Electronically Signed: Aaron Salgado MD at 13:19 EDT ,
--- NOTE | 2023-10-28 12:15 | BD_ITS ---
STUDY: DUAL ENERGY X-RAY ABSORPTIOMETRY / DXA REASON FOR EXAM: Female, 73 years old. V76.12ScreeningBONE DENSITY REASON FOR EXAM TECHNIQUE: Bone Mineral Density (BMD) measurements of lumbar spine and bilateral hips were obtained. COMPARISON: Comparison is made with prior study dated October 07, 2021. FINDINGS: Lumbar Spine (L1-L4): g/cm2 (1.408) / T-score (3.3) / Z-score (5.5) Findings are suggestive of normal bone density with a low fracture risk. Left Femur Total: g/cm2 (1.093) / T-score (1.2) / Z-score (2.8) Left Femoral Neck: g/cm2 (0.991) / T-score (1.3) / Z-score (3.2) Right Femur Total: g/cm2 (1.134) / T-score (1.6) / Z-score (3.2) Right Femoral Neck: g/cm2 (1.081) / T-score (2.1) / Z-score (4.0) The T-Scores on the most recent prior examination were: Lumbar Spine (L1-L4): There has been worsening of bone density since the previous examination. Left Femur Total: which represents a worsening of 7.4%. Right Femur Total: which represents a worsening of 6.1%. BD/Dexa Bone Density Study IMPRESSION: The patient is considered normal as outlined below according to World Kvng Organization (WHO) criteria with a low fracture risk. There has been worsening of bone density since the previous examination. Reference Information: The T-score is the number of standard deviations above or below the standard which is normal for young adults at their peak bone mineral density. The World Health Organization (WHO) interprets the T-scores as follows: Above -1 Normal bone density Between -1 and -2.5 Osteopenia Equal to / or below -2.5 Osteoporosis As a practical clinical guideline, osteopenia may be graded as follows: Mild -1 through -1.5 Moderate -1.6 through -2.0 Severe -2.1 through -2.4 The Z-score is the number of standard deviations above or below age-matched controls. A Z-score of less than -1.5 would be considered abnormal. References: 1. NIH Osteoporosis and Related Bone Diseases www osteo.org 2. International Society for Clinical Densitometry www iscd.org 3. National Osteoporosis Foundation www nof.org Electronically Signed: Aaron Salgado MD at 14:35 EDT ,
== END | disposition home or self-care (01) ==
LOC: OPBD 12:05
PROVIDERS: PCP Internal Medicine; Referring Provider Internal Medicine; Visit Provider Internal Medicine
DX: Z12.31 Encounter for screening mammogram for malignant neoplasm of breast (principal); Z78.0 Asymptomatic menopausal state; M81.0 Age-related osteoporosis without current pathological fracture
CPT/HCPCS: 77063; 77067; 77080

== ENCOUNTER 2024-02-25 12:33 | Emergency (ER) | payer MEDICARE, SELFPAY ==
[2024-02-25 12:34] VITALS: BP 123/92; PULSE 67; RESP 16; TEMP 36.1; O2SAT 99; BMI 30.7
--- NOTE | 2024-02-25 13:08 | RAD_ITS ---
STUDY: X-RAY - LEFT HAND, ATTENTION FOURTH FINGER REASON FOR EXAM: Female, 74 years old. Pain, swelling TECHNIQUE: 3 view(s) of the finger were obtained. COMPARISON: None. FINDINGS: Normal metacarpal head. Normal metacarpophalangeal joint. Normal proximal phalanx. Normal middle phalanx. Normal distal phalanx. There is evidence of a ulnar and dorsal subluxation of the proximal interphalangeal joint of the fourth digit. Normal distal interphalangeal joint. Soft tissue swelling. RAD/Finger(s) Min 2 Views IMPRESSION: There is ulnar and dorsal subluxation of the proximal interphalangeal joint of the fourth digit. Soft tissue swelling. Electronically Signed: Aaron Salgado MD at 13:40 EDT ,
--- NOTE | 2024-02-25 14:55 | RAD_ITS ---
STUDY: X-RAY - RIGHT KNEE REASON FOR EXAM: Female, 74 years old. fall swellibg TECHNIQUE: 3 view(s) of the knee. COMPARISON: None. FINDINGS: Normal visualized distal femur. Normal visualized proximal tibia and fibula. Normal proximal tibiofibular articulation. There is no demonstrated fracture. Satisfactory appearance of total knee arthroplasty. Prominent soft tissue swelling anterior to the proximal tibia. RAD/Knee 3 Views IMPRESSION: Soft tissue swelling consistent with bruising. No fractures or dislocations. Electronically Signed: Brandon Ferguson MD at 16:57 EDT ,
--- NOTE | 2024-02-25 15:00 | RAD_ITS ---
STUDY: X-RAY - LEFT HAND REASON FOR EXAM: Female, 74 years old. post reduction finger TECHNIQUE: 3 view(s) of the hand. COMPARISON: Radiographs of earlier today. FINDINGS: Normal appearance of previous fourth digit dislocation. Normal joints. No fractures are seen. Electronically Signed: Brandon Ferguson MD at 16:56 EDT , RAD/Hand Min 3 Views IMPRESSION: undefined
--- NOTE | 2024-02-25 15:41 | EX.ED.DYSGE1 ---
HPI History of Present Illness Chief Complaint: Fall Narrative Narrative: Patient is a 74-year-old female with past medical history of depression, migraine headaches, ROSAMARIA, hyperlipidemia, hypertension who presented to the [facility] with chief complaint of mechanical fall in the yard earlier. Patient states that she was walking through the yard earlier and noted that she tripped over her foot causing her to fall for she attempted to catch herself. She states that she was complaining of left finger not being in the right position and concern for dislocation she also complains of right knee pain and swelling. Patient states that she is not on any blood thinning medications and notes that she did not hit her head did not pass out remembers entire event. Patient did not develop chest pain, shortness of breath, lightheadedness or dizziness prior to the fall she states that she simply tripped over her own feet in the yard. Patient states that her tetanus shot is up-to-date. [facility] Medical History (Updated 02/25/24 @ 17:[address] 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 Hyperlipidemia Bradycardia Hypertension Home Medications ?Medication ?Instructions ?Recorded ?Last Taken ?Type cholecalciferol (vitamin D3) 50 2,000 unit PO DAILY SUPPLEMENT 09/04/16 05/19/18 History mcg (2,000 unit) capsule hydrochlorothiazide 25 mg tablet 25 mg PO DAILY 02/14/18 05/19/18 History potassium chloride 20 mEq 10 meq PO BID 02/14/18 05/19/18 History tablet,extended release(part/cryst) propranolol 80 mg capsule,24 80 mg PO DAILY 02/14/18 05/19/18 History hr,extended release rosuvastatin 5 mg tablet 5 mg PO DAILY 02/14/18 05/19/18 History aspirin 81 mg tablet,delayed 81 mg PO DAILY 07/28/18 Unknown History release (Adult Aspirin Regimen) zolpidem 5 mg tablet (Ambien) 5 mg PO QHS PRN 07/28/18 Unknown History Allergy/AdvReac Type Severity Reaction Status Date / Time simvastatin (From Zocor) AdvReac Severe severe Verified 03/06/19 14:12 myalgias and pain gemfibrozil AdvReac Intermediate Myalgias/joint Verified 03/06/19 14:12 pain hydromorphone HCl (From AdvReac Other Verified 03/06/19 14:12 Dilaudid) oxycodone HCl (From Percocet) AdvReac Nausea Verified 03/06/19 14:12 propoxyphene napsylate (From AdvReac Nausea Verified 03/06/19 14:12 Darvocet-N 100) Family History Father CAD (coronary artery disease) Brother CAD (coronary artery disease) Surgical History History of total knee replacement (TKR) Hx of cholecystectomy History of total abdominal hysterectomy History of appendectomy History of left heart catheterization (09/29/16) Social History Smoking Status: Never smoker ROS ROS ED ROS Narrative Constitutional: Denies any headaches, lightness, dizziness, fevers, chills Eyes: Denies double vision blurry vision changes vision Cardiovascular: Denies chest pain or palpitations Respiratory: Denies coughing wheezing shortness of breath Abdomen: Denies any abdominal pain nausea vomiting diarrhea : Denies any urinary symptoms Neurological: Denies any numbness, weakness, tingling Musculoskeletal: Complains of right ahwkins pain as well as left finger pain Skin: Complains of an abrasion noted to her right knee EXAM Physical Exam Narrative Exam Narrative: General: Patient was sitting in a chair resting comfortably did not appear to be in acute distress Head: Atraumatic, normocephalic Eyes: PERRL bilaterally, EOMI bilateral, no conjunctival injection noted Neck: Soft, supple, trachea midline, no tenderness palpation midline of the cervical spine Cardiovascular: Regular rate and rhythm no murmurs gallops rubs noted Respiratory: Clear to auscultation bilaterally no rales rhonchi wheeze noted Abdomen: Soft, nondistended, nontender to palpation, bowel sounds present x 4 Musculoskeletal: Patient's finger did appear to be dislocated on exam but this was reduced in the hallway Extremities: +5/5 strength noted in the bilateral upper and lower extremities, no pedal edema on exam, DP pulses +2/4 in the bilateral extremities, patient does have ecchymosis noted to the right hawkins all compartments are soft and compressible on exam Neurological: Patient follow commands knew that she was at [facility] the year is 2023. Sensation grossly intact in the bilateral lower extremities and upper extremities Skin: Warm, dry, patient has superficial abrasion noted to the anterior right leg no active bleeding noted. Const Vital Signs: 02/25/24 12:34 02/25/24 14:31 02/25/24 16:33 Temperature 96.9 F L Temperature Source Temporal Pulse Rate 67 64 Respiratory Rate 16 16 Respiratory Effort Normal Respiratory Depth Normal Respiratory Pattern Normal Blood Pressure 123/92 H 134/78 H Blood Pressure Mean 102 96 Pulse Ox 99 98 Oxygen Delivery Method Room Air Room Air Room Air MDM MDM MDM Narrative Medical decision making narrative: Patient is a 74-year-old female who presents to the emergency department with a chief complaint of mechanical fall, left finger dislocation and right knee pain. Patient will have workup performed here on the differential diagnose includes but not limited to what finger dislocation, right periprosthetic tibial plateau fracture, right periprosthetic distal femur fracture. Once the workup is obtained and reviewed she will be reevaluated. Once again the patient's tetanus shot is up-to-date. Patient's x-ray of her finger showed ulnar and dorsal subluxation of the proximal interphalangeal joint of the fourth digit. Soft tissue swelling. Once again I did reduce this in the hallway while examining the patient and added a postreduction film which was reviewed and showed normal appearance of the previous fourth digit dislocation. Patient will be placed in a finger splint. Patient's x-ray of her knee reviewed as well which showed soft tissue swelling consistent with bruising no fracture or dislocations. Clinically the patient does have ecchymosis noted on exam. Did discuss results with the patient she was encouraged to ice, elevate and keep her abrasion of her right knee dry and clean. She is encouraged return with surrounding redness, purulent discharge or any other concerns. Patient was encouraged to follow-up with her primary care physician outpatient setting and return with worsening symptoms or other concerns. She is agreeable to this plan as well as significant other at bedside all question concerns answered she was discharged home in stable condition Radiography Diagnostic Testing: Clinical Impression(s) from Imaging Studies Finger X-Ray 02/25/24 13:08 IMPRESSION: There is ulnar and dorsal subluxation of the proximal interphalangeal joint of the fourth digit. Soft tissue swelling. Electronically Signed: Aaron Salgado MD at 13:40 EDT , Knee X-Ray 02/25/24 14:55 IMPRESSION: Soft tissue swelling consistent with bruising. No fractures or dislocations. Electronically Signed: Brandon Ferguson MD at 16:57 EDT , Hand X-Ray 02/25/24 15:00 IMPRESSION: undefined Discharge Plan Triage Chief Complaint: Fall ED Provider: Bharath Mckoy Dx/Rx/DC Orders Clinical Impression: Fall, Dislocation closed, finger, Acute pain of right knee, Abrasion of leg Prescriptions: No Action zolpidem [Ambien] 5 mg tablet 5 mg PO QHS PRN aspirin [Adult Aspirin Regimen] 81 mg tablet,delayed release (DR/EC) 81 mg PO DAILY cholecalciferol (vitamin D3) 2,000 UNIT capsule 2,000 unit PO DAILY rosuvastatin 5 MG tablet 5 mg PO DAILY potassium chloride 20 MEQ tablet,ER particles/crystals 10 meq PO BID hydrochlorothiazide 25 MG tablet 25 mg PO DAILY Patient Comments: propranolol 80 MG capsule 80 mg PO DAILY Patient Comments: Primary Care Provider: Kelly Hannah Referrals: Kelly Hannah MD [Primary Care Provider] - Activity Restrictions/Additional Instructions: Follow-up your primary care physician outpatient setting. Return with worsening symptoms or any other concerns. Ice, elevate, rotate Tylenol and ibuprofen [id number] for pain control. Print Language: Ghanaian Disposition Disposition: Home, Self Care
[2024-02-25 16:33] VITALS: BP 134/78; PULSE 64; RESP 16; O2SAT 98
[2024-02-25 17:22] VITALS: BP 136/86; PULSE 76; RESP 16; TEMP 37.1; O2SAT 98
== END 2024-02-25 17:24 | disposition home or self-care (01) ==
PROVIDERS: Emergency Provider Emergency Medicine; PCP Internal Medicine; Visit Provider Emergency Medicine
DX: S63.235A Subluxation of proximal interphalangeal joint of left ring finger, initial encounter (principal); S80.811A Abrasion, right lower leg, initial encounter; S80.211A Abrasion, right knee, initial encounter; I25.10 Atherosclerotic heart disease of native coronary artery without angina pectoris; M25.561 Pain in right knee; G47.33 Obstructive sleep apnea (adult) (pediatric); Z86.711 Personal history of pulmonary embolism; W19.XXXA Unspecified fall, initial encounter
CPT/HCPCS: 73130; 73140; 73562; 99283

== ENCOUNTER 2024-04-11 17:22 | Emergency (ER) | payer MEDICARE, SELFPAY ==
[2024-04-11 17:22] VITALS: BP 123/74; PULSE 80; RESP 18; TEMP 36.4; O2SAT 99; BMI 32.3
--- NOTE | 2024-04-11 17:24 | EKG12_ITS ---
Test Reason : CP Blood Pressure : / mmHG Vent. Rate : 074 BPM Atrial Rate : 074 BPM P-R Int : 154 ms QRS Dur : 080 ms QT Int : 392 ms P-R-T Axes : 035 006 036 degrees QTc Int : 435 ms Normal sinus rhythm Normal ECG Confirmed by JEFFERSON FLYNN, PREET ([id number]), editorial manager WALLACE GARCIA ([id number]) on 04/13/2024 9:05:45 AM Referred By: Confirmed By:PREET PAULINO MD
--- NOTE | 2024-04-11 17:56 | RAD_ITS ---
EXAM: XR CHEST, 1 VIEW CLINICAL INDICATION: chest pain TECHNIQUE: Frontal view of the chest. COMPARISON: May 19, 2018 FINDINGS: LUNGS AND PLEURAL SPACES: Unremarkable. No consolidation or edema. No pneumothorax. No effusion. HEART: Unremarkable. Cardiac silhouette not enlarged. MEDIASTINUM: Central airways and mediastinal contour are unremarkable. BONES/JOINTS: Unremarkable. No acute fracture. SOFT TISSUES: Unremarkable. RAD/Chest 1 View (Portable) IMPRESSION: No radiographic evidence of acute cardiopulmonary disease. Electronically Signed: Gabriela Willis MD at 18:37 EDT ,
[2024-04-11 17:57] LABS: Absolute Lymphocyte Count 2.29 X10^3/uL (0.83-4.51); Absolute Neutrophil Count 3.4 X10^3/uL (2.0-7.7); Basophil# 0.05 X10^3/uL; Basophil% 0.8 % (0-1); Eosinophils% 1.5 % (0-5); Hematocrit 43.5 % (37-47); Hemoglobin 14.2 g/dL (12.0-15.0); Lymphocyte # 2.29 X10^3/ul (0.83-4.51); Lymphocyte % 35.3 % (19-41); Mean Corp Hgb Conc 32.6 g/dL (32-36); Mean Corpuscular Hgb 32.1 pg (27.0-32.0); Mean Corpuscular Volume 98.2 fL (81-99); Mean Platelet Vol. 11.8 fl (6.2-12.0); Monocyte% 9.3 % (0-10); NRBC Flagged by Analyzer 0 % (0-5); Neutrophil # 3.41 X10^3/uL (2.7-7.7); Neutrophil % 52.6 % (47-70); Platelet Count 158 K/mm3 (150-450); RBC Distribution Width SD 46.6 fl (35.1-43.9); Red Blood Count 4.43 M/mm3 (4.2-5.4); White Blood Count 6.5 K/mm3 (4.4-11.0)
[2024-04-11 18:11] VITALS: BP 111/72; PULSE 84; RESP 16; O2SAT 95
[2024-04-11 18:15] LABS: Anion Gap 6 (5-15); BUN 21 mg/dL (7-18); BUN/Creat Ratio 17.8 RATIO (10-20); Calcium,Total 9.4 mg/dL (8.5-10.1); Chloride 112 mmol/L (98-107); Creatinine, Serum 1.18 mg/dL (0.55-1.02); EST Glomerular Filtration Rate 48 mL/min (>60); Est Glom Filt Rate - Afr Amer 58 mL/min (>60); Estimated Creatinine Clearance 48.91 ml/min; Glucose 130 mg/dL (74-106); Potassium 3.5 mmol/L (3.5-5.1); Sodium Level 144 mmol/L (136-145); Troponin-I HS (w/2H Reflex) < 3 pg/mL (3.0-54.0)
--- NOTE | 2024-04-11 18:33 | EDS_ITS ---
HPI History of Present Illness Chief Complaint: Chest Pain Narrative Narrative: 74-year-old female past medical history of hypertension, hyperlipidemia, family history of early coronary artery disease presents with chest pain that began at around 430 this evening, about 2 hours ago. She states that she had a low lunch and she was coming home, and experienced burning sensation in her stomach and in her chest, then it became pressure. It was not going away and lasted anywhere from 30 to 45 minutes. She broke out in a cold sweat. She denies nausea or vomiting, no shortness of breath, no recent fevers or chills. She is concerned because she has family history in her brother having a heart attack in his 40s. She denies any leg swelling, no exacerbating or alleviating symptoms. She feels improved currently. [facility] Medical History (Updated 04/11/24 @ 20:53 by Royce Danielle MD) Migraine Depression Obstructive sleep apnea Blood glucose elevated History of pulmonary embolism Atherosclerosis of coronary artery of [place] heart without angina pectoris Hyperlipidemia Bradycardia Hypertension Home Medications ?Medication ?Instructions ?Recorded ?Last Taken ?Type cholecalciferol (vitamin D3) 50 2,000 unit PO DAILY SUPPLEMENT 09/04/16 05/19/18 History mcg (2,000 unit) capsule hydrochlorothiazide 25 mg tablet 25 mg PO DAILY 02/14/18 05/19/18 History potassium chloride 20 mEq 10 meq PO BID 02/14/18 05/19/18 History tablet,extended release(part/cryst) propranolol 80 mg capsule,24 80 mg PO DAILY 02/14/18 05/19/18 History hr,extended release rosuvastatin 5 mg tablet 5 mg PO DAILY 02/14/18 05/19/18 History aspirin 81 mg tablet,delayed 81 mg PO DAILY 07/28/18 Unknown History release (Adult Aspirin Regimen) zolpidem 5 mg tablet (Ambien) 5 mg PO QHS PRN 07/28/18 Unknown History Allergy/AdvReac Type Severity Reaction Status Date / Time simvastatin (From Zocor) AdvReac Severe severe Verified 03/06/19 14:12 myalgias and pain gemfibrozil AdvReac Intermediate Myalgias/joint Verified 03/06/19 14:12 pain hydromorphone HCl (From AdvReac Other Verified 03/06/19 14:12 Dilaudid) oxycodone HCl (From Percocet) AdvReac Nausea Verified 03/06/19 14:12 propoxyphene napsylate (From AdvReac Nausea Verified 03/06/19 14:12 Darvocet-N 100) Family History Father CAD (coronary artery disease) Brother CAD (coronary artery disease) Surgical History History of total knee replacement (TKR) Hx of cholecystectomy History of total abdominal hysterectomy History of appendectomy History of left heart catheterization (09/29/16) Social History Smoking Status: Never smoker ROS ROS ED ROS Narrative Constitutional: No fever, no chills. Broke out in a cold sweat. HEENT: No sore throat. No neck pain. No loss of vision. No rhinorrhea. Cardiovascular: 30 to 45 minutes of chest burning and pressure type of chest p ain. No palpitations. No pedal edema. Respiratory: No cough, no shortness of breath. Abdominal: No abdominal pain. No nausea. No vomiting. Genitourinary: No dysuria. No hematuria. Musculoskeletal: No myalgias. No arthralgias. Neurologic: No headaches. No dizziness. No lightheadedness. Skin: No rash. No change in color. Psychiatric: No depression. No anxiety. EXAM Physical Exam Narrative Exam Narrative: Afebrile. Vital signs noted. Regular rate and rhythm. Lungs are clear to auscultation bilaterally. Abdomen soft nontender with normal active bowel sounds. No right upper quadrant pain, no epigastric tenderness. Negative Garcia sign. No rebound or guarding. No pedal edema. Neurological examination nonfocal and nonlateralizing. Const Vital Signs: 04/11/24 17:22 04/11/24 17:53 04/11/24 17:53 Temperature 97.6 F L Temperature Source Oral Pulse Rate 80 Respiratory Rate 18 Respiratory Effort Normal Blood Pressure 123/74 H Blood Pressure Mean 90 Pulse Ox 99 Oxygen Delivery Method Room Air Room Air 04/11/24 18:11 04/11/24 18:52 04/11/24 19:32 Temperature Temperature Source Pulse Rate 84 72 79 Respiratory Rate 16 12 Respiratory Effort Blood Pressure 111/72 115/72 116/63 Blood Pressure Mean 85 86 80 Pulse Ox 95 96 Oxygen Delivery Method 04/11/24 19:59 04/11/24 20:53 Temperature 97.6 F L Temperature Source Pulse Rate 81 74 Respiratory Rate 15 Respiratory Effort Blood Pressure 123/80 H 124/76 H Blood Pressure Mean 94 92 Pulse Ox 96 Oxygen Delivery Method Heart Score History: Slightly/Non-Suspicious ECG: Normal Age: >/= 65 years Risk Factors: >/= 3 Risk Factors or History of CAD Score: 4 MDM MDM MDM Narrative Medical decision making narrative: Differential diagnosis includes but not limited to ACS versus pulmonary embolism versus pneumothorax versus pneumonia versus GERD. History and physical does not support the latter 3 Diagnoses. I have low suspicion for pulmonary embolism given her being PERC negative. Pulse ox is 99% on room air without evidence of hypoxia. Additionally, patient states that I believe that her daughter is getting on Wednesday, and she is under a lot of stress, so her symptoms may have been stress related as well. Chest x-ray 1 view interpreted by myself independently shows no evidence of pneumonia or pneumothorax. EKG on my independent interpretation demonstrates normal sinus rhythm at 74 bpm without ectopy or acute ST changes. No STEMI. No significant change from EKG dated May 19, 2018. I reviewed her laboratory work and she has normal white count of 6.5 with hemoglobin 14.2, hematocrit 43.5, platelet count normal at 158. Chloride is slightly elevated at 112 but I think is nonspecific, BUN of 21 and creatinine 1.18 which I also think is nonspecific, glucose elevated at 130 with normal anion gap of 6. Initial high-sensitivity troponin is less than 3 with a repeat also being less than 3. I do not feel she needs a lipase because she is not having epigastric abdominal pain so I do not think she has a pancreatitis. Upon repeat examination, she states she is feeling well. I feel she can be discharged safely home with follow-up to her primary care provider. Patient and her are motivated for discharge. Return instructions to the emergency department were reviewed. Disposition is discharged home in stable condition. History & Record Review Discussion w/independent historian: Patient Additional record(s) reviewed:: Prior ED visit Lab Data Attestation: I reviewed the patient's lab results. Labs: Laboratory Results - last 24 hr 04/11/24 04/11/24 17:46 19:35 WBC 6.5 RBC 4.43 Hgb 14.2 Hct 43.5 MCV 98.2 MCH 32.1 H MCHC 32.6 RDW Std Deviation 46.6 H RDW Coeff of Joel 13.0 Plt Count 158 MPV 11.8 Immature Gran % (Auto) 0.500 Neut % (Auto) 52.6 Lymph % (Auto) 35.3 [place] % (Auto) 9.3 Eos % (Auto) 1.5 Baso % (Auto) 0.8 Absolute Neuts (auto) 3.4 Absolute Lymphs (auto) 2.29 Nucleated RBC % 0 Sodium 144 Potassium 3.5 Chloride 112 H Carbon Dioxide 26.0 Anion Gap 6 BUN 21 H Creatinine 1.18 H Estim Creat Clear Calc 48.91 Est GFR (MDRD) Af Amer 58 L Est GFR (MDRD) Non-Af 48 L BUN/Creatinine Ratio 17.8 Glucose 130 H Calcium 9.4 Troponin I High Sens < 3 L < 3 L Radiography Chest X-Ray - ED: Read by ED Physician and Read by Radiologist Diagnostic Testing: Clinical Impression(s) from Imaging Studies Chest X-Ray 04/11/24 17:56 IMPRESSION: No radiographic evidence of acute cardiopulmonary disease. Electronically Signed: Gabriela Willis MD at 18:37 EDT , Discharge Plan Triage Chief Complaint: Chest Pain ED Provider: Royce Danielle Dx/Rx/DC Orders Clinical Impression: Chest pain, Hypertension Instructions: ED Chest Pain, Uncertain Cause Prescriptions: No Action zolpidem [Ambien] 5 mg tablet 5 mg PO QHS PRN aspirin [Adult Aspirin Regimen] 81 mg tablet,delayed release (DR/EC) 81 mg PO DAILY cholecalciferol (vitamin D3) 2,000 UNIT capsule 2,000 unit PO DAILY rosuvastatin 5 MG tablet 5 mg PO DAILY potassium chloride 20 MEQ tablet,ER particles/crystals 10 meq PO BID hydrochlorothiazide 25 MG tablet 25 mg PO DAILY Patient Comments: propranolol 80 MG capsule 80 mg PO DAILY Patient Comments: Primary Care Provider: Kelly Hannah Referrals: Kelly Hannah MD [Primary Care Provider] - 3-5 Days Activity Restrictions/Additional Instructions: Return to the emergency department with increasing chest pain, shortness of breath, new or worsening symptoms. Print Language: Citizen Of [place] Disposition Disposition: Home, Self Care Discharge Date/Time: 04/11/24 21:31
[2024-04-11 18:52] VITALS: BP 115/72; PULSE 72; RESP 12; O2SAT 96
[2024-04-11 19:32] VITALS: BP 116/63; PULSE 79
[2024-04-11 19:50] LABS: Reflex Troponin-HS? (from REC) Y
[2024-04-11 19:59] VITALS: BP 123/80; PULSE 81
[2024-04-11 20:08] LABS: Troponin-I HS < 3 pg/mL (3.0-54.0)
[2024-04-11 20:53] VITALS: BP 124/76; PULSE 74; RESP 15; TEMP 36.4; O2SAT 96
== END 2024-04-11 21:31 | disposition home or self-care (01) ==
PROVIDERS: Emergency Provider Emergency Medicine; PCP Internal Medicine; Visit Provider Emergency Medicine
DX: R07.89 Other chest pain (principal); I10 Essential (primary) hypertension; E78.5 Hyperlipidemia, unspecified; I25.10 Atherosclerotic heart disease of native coronary artery without angina pectoris; G47.33 Obstructive sleep apnea (adult) (pediatric); G43.909 Migraine, unspecified, not intractable, without status migrainosus; Z82.49 Family history of ischemic heart disease and other diseases of the circulatory system; Z79.82 Long term (current) use of aspirin; Z90.49 Acquired absence of other specified parts of digestive tract; Z96.659 Presence of unspecified artificial knee joint; Z86.711 Personal history of pulmonary embolism; Z79.899 Other long term (current) drug therapy
CPT/HCPCS: 71045; 80048; 84484; 85025; 93005; 99285; A4216

== ENCOUNTER 2024-10-04 09:30 | Outpatient (RCR) | payer MEDICARE, SELFPAY ==
--- NOTE | 2024-04-19 12:58 | HP.OTEVAL ---
Patient's Visit Information Visit Information Visit Information: DIANA ESCUDERO is a 74 year old F, referred to Occupational Therapy by JET Lozada, with a diagnosis of left RF PIP dislocation. Date of Evaluation: 04/19/24 Occupational Therapist: MARIELLE Cam/Jose Carlos, CHT Subjective Subjective: This 74 year old female was seen for OT eval with dx of a left RF subluxation of proximal interphalanx joint. (a ulnar and dorsal subluxation of the phalanx) interphalangeal joint of the fourth digit pt suffered fall on 02/25/24. Pt states her finger was reduced and placed in a splint and taped to her MF. pt states she went to [facility] and they told her to get out of finger splint and susan tape to her LF pt states she notices she has not made much gains in her ROM pt is left handed retired from the [employer]. Pain left hand: Current Pain Intensity: 1 Pain Intensity Range: 0 and 3 ROM MP: right +10/85 left +5/ 90 PIP: RF +15/105 -25/85 DIP: right +15/70 +10/40 ROM Comments: pt demo with limited left RF PIP ext. Strength Principal Mechanical Engineer: right 55# left NT Lateral Pinch: right18# left NT Tripod Pinch: right 14# left NT Quick DASH-Disab of Arm,Shoulder& Hand Quick DASH Score: 18.3325 Goals Goal:: pt will demo a increase in left director phone strength to 45# with no increase in pain by d.c Goal:: pt will demo a increase in left RF PIP ext to 0 by d/c to increase pts ind with performing ADLS and IADLs by d/c pt will demo increase in left RF PIP flexion by 15* to increase pts composite fist by d.c Goal:: pt will report no pain greater than 1/10 with resistive use of dominate left hand with ADLs by d.c Goal:: pt will demo legible handwriting and report return of her speed with typing by d.c Goal:: pt will demo understanding of using orthosis to improve pts ROM by d.c Rehabilitation General Assessment: pt arrives 7 weeks and 4 days following her fall and reduction of her dislocated left RF. pt demo with limited ROM of left RF and use of her dominate hand for daily tasks as typing, writing and other bilateral hand tasks. pt demo need for skilled OT services 2x week for 8 weeks to return pt to her PLOF. pt demo understanding and agrees to POC. Rehabilitation Potential: Good Anticipated Interventions Anticipated Interventions: A/AAROM/PROM, Strengthening, Modalities, Orthoses, Joint Protection/Energy Conservation, Ergonomic Education, Education re assistive Equipment, Education re Diagnosis and Home Program Visit Plan Frequency: 1-2x /Week Duration: 2 Months TEXT: Thank you for the opportunity to evaluate your patient. For Medicare and Medicare HMO plans, please review the plan of care and approve it. It will need to be FAXED BACK to us at [phone] for Medicare purposes. Please let me know if there are questions or concerns regarding this plan of care. Physician Signature: Date:
== END 2024-10-04 19:00 | disposition home or self-care (01) ==
LOC: OT 09:30
PROVIDERS: PCP Internal Medicine; Referring Provider Physician Assistant; Visit Provider Physician Assistant
DX: S63.23 Subluxation of proximal interphalangeal joint of finger (principal); S80.01XD Contusion of right knee, subsequent encounter; Z96.651 Presence of right artificial knee joint
CPT/HCPCS: 97035; 97110; 97140; 97166; 97530

== ENCOUNTER → 2024-12-01 | Outpatient (CLI) | payer MEDICARE, SELFPAY ==
--- NOTE | 2024-12-01 08:40 | BI_ITS ---
EXAM: SCRN MAMM (CAD)W/DESMOND BILAT 12/01/2024 CLINICAL HISTORY: F, Age 74 y/o , SCRN MAMM (CAD)W/DESMOND BILAT TECHNIQUE: Bilateral screening digital breast tomosynthesis with 2D and 3D images. Computer aided detection. COMPARISON: Prior exam(s) dated 10/28/2023, 10/26/2022, 10/07/2021, 01/03/2020. FINDINGS: TISSUE DENSITY: The breast tissue is composed of scattered area of fibroglandular density. Bilateral Breast Mammographic Findings: No significant masses, calcifications or other abnormalities are identified. BI/SCRN MAMM (CAD)W/DESMOND BILAT IMPRESSION: Right Breast: BIRADS 1 NEGATIVE. Left Breast: BIRADS 1 NEGATIVE. OVERALL FINAL ASSESSMENT: BIRADS 1 NEGATIVE. RECOMMENDATION: Routine annual follow-up in 1 Year A letter with findings and recommendations will be mailed to the patient. Reading Location: [id number]
== END | disposition home or self-care (01) ==
LOC: OPBI 08:38
PROVIDERS: PCP Internal Medicine; Referring Provider Internal Medicine; Visit Provider Internal Medicine
DX: Z12.31 Encounter for screening mammogram for malignant neoplasm of breast (principal)
CPT/HCPCS: 77063; 77067

== ENCOUNTER 2025-04-22 01:01 | Emergency (ER) | payer MEDICARE, SELFPAY ==
[2025-04-22 01:06] VITALS: BP 169/93; PULSE 58; RESP 16; TEMP 36.6; O2SAT 98; BMI 34.5
[2025-04-22 01:19] LABS: Magnesium 2.2 mg/dL (1.5-2.2); Troponin T High Sensitivity 10 ng/L (<=14)
[2025-04-22 01:20] VITALS: BP 150/87; PULSE 62; RESP 16; O2SAT 98
--- NOTE | 2025-04-22 01:21 | EKG12_ITS ---
Test Reason : CP
--- NOTE | 2025-04-22 01:24 | EX.ED.DYSGE1 ---
HPI History of Present Illness Chief Complaint: Chest Pain Informant: patient and spouse/S.O. Narrative Narrative: Patient is a 75-year-old female with past medical history of hypertension and hyperlipidemia as well as remote history of pulmonary embolus roughly 10 years ago no longer on anticoagulation. She states she went to dinner tonight with her and had Martiniquais and a glass of wine. She states around 9 PM she noticed midsternal chest discomfort which she describes as a pressure with a cold sweat and nausea. She states there is no radiation of the pain. She denies any shortness of breath. She states that she thought this was acid reflux and took a acid project coordinator without any symptom improvement. Therefore with concern this could be cardiac in nature she presents for evaluation. [facility] Medical History (Updated 04/22/25 @ 03:[address] Ming Day, ) Migraine Depression Obstructive sleep apnea Blood glucose elevated History of pulmonary embolism Atherosclerosis of coronary artery of [place] heart without angina pectoris Hyperlipidemia Bradycardia Hypertension Home Medications ?Medication ?Instructions ?Recorded ?Last Taken ?Type cholecalciferol (vitamin D3) 50 2,000 unit PO DAILY SUPPLEMENT 09/04/16 05/19/18 History mcg (2,000 unit) capsule hydrochlorothiazide 25 mg tablet 25 mg PO DAILY 02/14/18 05/19/18 History potassium chloride 20 mEq 10 meq PO BID 02/14/18 05/19/18 History tablet,extended release(part/cryst) aspirin 81 mg tablet,delayed 81 mg PO DAILY 07/28/18 Unknown History release (Adult Aspirin Regimen) zolpidem 5 mg tablet (Ambien) 5 mg PO QHS PRN insomnia 07/28/18 Unknown History evolocumab 420 mg/3.5 mL mg subcut 04/22/25 Unknown History subcutaneous wearable injector (Repatha Pushtronex) propranolol 60 mg capsule,24 60 mg PO DAILY 04/22/25 Unknown History hr,extended release Allergy/AdvReac Type Severity Reaction Status Date / Time simvastatin (From Zocor) AdvReac Severe severe Verified 04/22/25 01:03 EDT myalgias and pain gemfibrozil AdvReac Intermediate Myalgias/joint Verified 04/22/25 01:03 EDT pain hydromorphone HCl (From AdvReac Other Verified 04/22/25 01:03 EDT Dilaudid) oxycodone HCl (From Percocet) AdvReac Nausea Verified 04/22/25 01:03 EDT propoxyphene napsylate (From AdvReac Nausea Verified 04/22/25 01:03 EDT Darvocet-N 100) Family History Father CAD (coronary artery disease) Brother CAD (coronary artery disease) Surgical History History of total knee replacement (TKR) Hx of cholecystectomy History of total abdominal hysterectomy History of appendectomy History of left heart catheterization (09/29/16) Social History Smoking Status: Never smoker ROS ROS ED Constitutional Constitutional ED: Reports chills and sweats; Denies fever(s) Eyes Eyes: Denies blurry vision or change in vision ENT ENT ED: Denies sore throat Cardiovascular Cardiovascular: Reports chest pain; Denies palpitations or racing heartbeat Respiratory/Chest Respiratory/Chest: Denies cough or dyspnea Gastrointestinal Gastrointestinal: Reports nausea; Denies abdominal pain, diarrhea or vomiting Genitourinary Genitourinary ED: Denies dysuria Musculoskeletal Musculoskeletal: Denies back pain or myalgias Integumentary Denies rash Neurologic Neurologic: Reports headache(s) Psychiatric Psychiatric: Reports other Details: Patient reports she is stressed Hematologic/Lymphatic Hematologic/Lymphatic: Denies easy bleeding or easy bruising EXAM Physical Exam Const Vital Signs: 04/22/25 01:06 EDT 04/22/25 01:06 EDT 04/22/25 01:20 EDT Temperature 97.8 F Temperature Source Oral Pulse Rate 58 L 62 Respiratory Rate 16 16 Respiratory Effort Normal Non-Labored Respiratory Pattern Normal Blood Pressure 169/93 H 150/87 H Blood Pressure Mean 118 108 Pulse Ox 98 98 Oxygen Delivery Method Room Air Room Air 04/22/25 02:01 04/22/25 03:00 Temperature Temperature Source Pulse Rate 60 57 L Respiratory Rate 16 16 Respiratory Effort Respiratory Pattern Blood Pressure 148/70 H 143/80 H Blood Pressure Mean 96 101 Pulse Ox 100 96 Oxygen Delivery Method Room Air Room Air Positive well nourished and well developed General Appearance ED: well developed; Negative for pallor HEENT HEENT Narrative: Normocephalic atraumatic Eyes PERRL and EOMs intact bilaterally General Eye ED: Negative for scleral icterus Neck supple and no JVD Chest Wall palpation of chest normal Chest Narrative: No bony deformity or subcutaneous emphysema noted No soft tissue changes across the anterior chest wall to suggest trauma or infection Resp normal respiratory effort and clear to auscultation bilaterally Cardio regular rate and regular rhythm Rate: other Other Details: Heart is regular rate and rhythm No murmurs rubs or gallop Radial and carotid pulses are equal and symmetric No carotid bruit noted GI normal to inspection, nondistended, normoactive bowel sounds, non-tender, non-distended and no masses GI Narrative: No voluntary guarding or rigidity or pulsatile mass Auscultation: normoactive bowel sounds Palpation: soft Extremity normal to inspection Extremity Narrative: No asymmetric edema no pitting edema negative Homans' sign bilaterally Neuro oriented x3, CN's II-XII intact bilaterally and no sensory deficits noted Sensorium / Orientation: alert Motor Exam: strength 5/5 throughout Psych mental status grossly normal Skin no rashes or lesions noted General Skin Exam: Negative for jaundice or pallor MDM MDM MDM Narrative Medical decision making narrative: Patient arrived to the ER hypertensive but she has a past medical history of this. With risk factors of postmenopausal female family history of CAD hypertension and hyperlipidemia there is concern that her symptoms could be related to acute coronary syndrome. Therefore basic labs were obtained with EKG as well as initial and delta troponin. The patient was kept on the electronic device monitor and there was no cardiac dysrhythmia noted. Chest x-ray was obtained to assess for lung pathology such as pneumonia or pneumothorax. X-ray revealed no acute findings. She does have a remote history of pulmonary embolus so D-dimer was obtained. D-dimer was normal going against PE or dissection as potential cause of her chest discomfort. The initial troponin was 10 and the delta was 7 going against ACS. Without any medication the patient did have improvement of her blood pressure. More aware after aspirin and a GI cocktail she did report improvement of her chest discomfort. On reevaluation she is resting comfortably she reports improvement of her symptoms and as overall workup is negative I do not feel the need for further observation or treatment in the ER and she is otherwise safe for discharge. History & Record Review Discussion w/independent historian: Patient and Significant other Lab Data Attestation: I reviewed the patient's lab results. Labs: Laboratory Results - last 24 hr 04/22/25 04/22/25 01:05 EST 02:08 WBC 8.3 RBC 4.47 Hgb 14.7 Hct 43.7 MCV 97.8 MCH 32.9 H MCHC 33.6 RDW Std Deviation 48.4 H RDW Coeff of Joel 13.3 Plt Count 167 MPV 12.0 Immature Gran % (Auto) 0.200 Neut % (Auto) 50.1 Lymph % (Auto) 38.0 [place] % (Auto) 9.5 Eos % (Auto) 1.7 Baso % (Auto) 0.5 Absolute Neuts (auto) 4.2 Absolute Lymphs (auto) 3.16 Nucleated RBC % 0 D-Dimer Quant (PE/DVT) 0.44 Sodium 142 Potassium 4.0 Chloride 107 Carbon Dioxide 23.7 Anion Gap 12 BUN 19 Creatinine 1.00 Estim Creat Clear Calc 58.86 Est GFR (MDRD) Non-Af 59 L BUN/Creatinine Ratio 19.0 Glucose 93 Calcium 9.5 Magnesium 2.2 Troponin T High Sens 10 Troponin T Hi Sens 2 Hr 7 Radiography Diagnostic Testing: Clinical Impression(s) from Imaging Studies Chest X-Ray 04/22/25 01:33 EST IMPRESSION: No acute cardiopulmonary disease. Reading Location: [facility] 2 view chest x-ray as interpreted by the emergency medicine physician reveals no acute infiltrate pneumothorax pleural effusion or widening of mediastinum Discharge Plan Triage Chief Complaint: Chest Pain ED Provider: Ming Day Dx/Rx/DC Orders Clinical Impression: Nonspecific chest pain, Hypertension, Hyperlipidemia Instructions: ED Chest Pain, Uncertain Cause Prescriptions: No Action zolpidem [Ambien] 5 mg tablet 5 mg PO QHS PRN (Reason: insomnia) aspirin [Adult Aspirin Regimen] 81 mg tablet,delayed release (DR/EC) 81 mg PO DAILY cholecalciferol (vitamin D3) 2,000 UNIT capsule 2,000 unit PO DAILY potassium chloride 20 MEQ tablet,ER particles/crystals 10 meq PO BID hydrochlorothiazide 25 MG tablet 25 mg PO DAILY Patient Comments: Repatha Pushtronex 420 mg/3.5 mL wearable injector subcut propranolol 60 mg capsule,extended release 24 hr 60 mg PO DAILY Primary Care Provider: Kelly Hannah Referrals: Kelly Hannah MD [Primary Care Provider, Internal Medicine] Activity Restrictions/Additional Instructions: Your workup today revealed no sign of abnormal heart rhythm or active heart damage. Please continue all of your home medications as directed by your doctor. Follow-up with her for repeat evaluation and to discuss potential outpatient stress test and/or echocardiogram to further assess any potential cause of your chest discomfort. Return to the ER should you have any further concerns Print Language: [place] Disposition Disposition: Home, Self Care
[2025-04-22] MEDS: Lidocaine 2% Viscous15 ML UDC 15 ML PO (01:27)
[2025-04-22 01:33] LABS: Hematocrit 43.7 % (37-47); Hemoglobin 14.7 g/dL (12.0-15.0); Immature Granulocytes Count 0.020 X10^3/uL (0.0-0.0); Mean Corp Hgb Conc 33.6 g/dL (32-36); Mean Corpuscular Volume 97.8 fL (81-99); Mean Platelet Vol. 12.0 fl (6.2-12.0); NRBC Flagged by Analyzer 0 % (0-5); Platelet Count 167 K/mm3 (150-450); RBC Distribution Width CV 13.3 % (11.6-14.6); RBC Distribution Width SD 48.4 fl (35.1-43.9); Red Blood Count 4.47 M/mm3 (4.2-5.4); White Blood Count 8.3 K/mm3 (4.4-11.0)
[2025-04-22 01:36] LABS: Anion Gap 12 (5-15); BUN 19 mg/dL (4-19); BUN/Creat Ratio 19.0 RATIO (10-20); Calcium,Total 9.5 mg/dL (7.6-11.0); Carbon Dioxide 23.7 mmol/L (21.0-32.0); Chloride 107 mmol/L (98-108); Estimated Creatinine Clearance 58.86 ml/min (50-250); Glucose 93 mg/dL (70-99); Potassium 4.0 mmol/L (3.3-5.1)
[2025-04-22 01:46] LABS: D-Dimer Quantitative (DVT/PE) 0.44 FEU/ug/m (0.27-0.49)
[2025-04-22 02:01] VITALS: BP 148/70; PULSE 60; RESP 16; O2SAT 100
[2025-04-22 03:00] VITALS: BP 143/80; PULSE 57; RESP 16; O2SAT 96
[2025-04-22 03:14] LABS: Troponin T High Sens 2 HR 7 ng/L (<=14)
[2025-04-22 03:18] VITALS: BP 152/83; PULSE 54; RESP 16; TEMP 36.6; O2SAT 100
== END 2025-04-22 03:19 | disposition home or self-care (01) ==
PROVIDERS: Emergency Provider Emergency Medicine; PCP Internal Medicine; Visit Provider Emergency Medicine
DX: R07.89 Other chest pain (principal); I10 Essential (primary) hypertension; I25.10 Atherosclerotic heart disease of native coronary artery without angina pectoris; Z78.0 Asymptomatic menopausal state; E78.5 Hyperlipidemia, unspecified; Z79.899 Other long term (current) drug therapy; R51.9 Headache, unspecified
CPT/HCPCS: 71046; 80048; 83735; 84484; 85025; 85379; 93005; 99285; A4216

== ENCOUNTER → 2025-06-18 | Outpatient (CLI) | payer MEDICARE, SELFPAY ==
--- NOTE | 2025-06-18 18:38 | STRESSREP_ITS ---
Stress Test Report Exercise myocardial perfusion stress test. Date Test Performed: 06/18/2025 [75]-year-old [female] with a history of [chest pain]. Stress protocol: Resting EKG demonstrates [normal sinus] rhythm with a rate of [61] bpm resting blood pressure is [150/90] mmHg. The patient exercised according to the regular Filiberto protocol for a total duration of [6 minutes 30 seconds] attaining a maximum heart rate of [136] bpm which was [92]% of maximum predicted heart rate; the maximum workload was [8.4] metabolic equivalents. At rest there were no ST or T wave changes noted to suggest ischemia and at peak exercise upsloping ST changes only were noted which did not meet the criteria for ischemia. No clinical angina was noted the test was terminated due to the target heart rate being achieved/fatigue. The peak blood pressure was [174/80] mmHg. Rate- pressure product was [[id number]]. Myocardial perfusion protocol. [15] mCi of technetium 99m sestamibi was injected at rest. The patient exercised according to regular Filiberto protocol for total duration of [6 minutes 30 seconds] and at peak exercise [44] mCi of technetium 99m sestamibi was injected. Stress images were obtained. Stress and rest images were reconstructed in comparing the short axis vertical long and horizontal long axis. Gated images were also obtained. Perfusion SPECT analysis: Review of the stress images demonstrate normal uptake of tracer noted in all areas of the myocardium. The resting images similarly demonstrate normal uptake of tracer noted in all areas of the myocardium. No areas of reversibility are noted to suggest ischemia no previous infarct was noted. Gated SPECT analysis: The gated ejection fraction is greater than [70]%. Concordant wall motion pres ent. Conclusion: There is no evidence of myocardial ischemia on this examination [Normal] exercise myocardial perfusion stress test at a [adequate workload].
== END | disposition home or self-care (01) ==
LOC: CVS 06:48
PROVIDERS: PCP Internal Medicine; Referring Provider Internal Medicine; Visit Provider Internal Medicine
DX: R07.9 Chest pain, unspecified (principal)
CPT/HCPCS: 78452; 93017; A9500; A4216